=== PATIENT | female | born 1960 | race Caucasian/White ===

== ENCOUNTER 2016-07-02 02:59 | Emergency (ER) | payer MEDICARE ==
[~2016-07-02] VITALS: Ht 167.6 cm; Wt 102.1 kg
[~2016-07-02 02:59] MED LIST: AC325T PO; AC500T; ACET-2422 PO; ACET650T52 PO; ALPR.5T PO; ATOR20TA66 PO; ATOR80TA2 PO; AZIT-21 PO; BSP10T PO; CEPH-507 PO; CEPH500C; CETI10TA17 PO; CITA20TA12 PO; CYCL10TA9 PO; DILT60TA PO; DOCU-165; FAMO20TA13; FAMO20TA5 PO; FERR-57 PO; HYDR-3583 PO; HYDR1TAB; LITH150C PO; LITH300C PO; MAG355OR PO; MELO15TA39 PO; METO-272 PO; METO25TA2; METR500T; Metoprolol Succinate PO; NYST1000 PO; OXYC-188 PO; PANT40TA PO; POTA20TA15 PO; PROP1TAB77; TR025C15 TP; VERA120T6 PO; VERA240C2 PO
--- OUTSIDE RECORDS SUMMARY | 2016-07-02 03:06 | XMS REPORT | Continuity of Care Document ---
Author Author [facility] Organization [facility] Address Unknown Phone Unavailable Care Team Providers Care Station Tender Name Role Phone JOCELYNE MEI DO PCP Insurance Providers Payer Name Policy Number Subscriber Name Relationship Wps Medicare [id number] Caleb Bautista 18 Self / Same As Patient Advance Directives Directive Response Recorded Date/Time Advance Directives No 05/17/16 6:57pm Health Care Power of Shellfish Checker No 05/17/16 6:57pm Organ Donor Yes 05/17/16 6:46am Resuscitation Status Full Code 05/17/16 6:57pm Chief Complaint and Reason for Visit Chief Complaint GENERALIZED WEAKNESS COPD EXACERBATION Reason for Visit Generalized weakness Headache Lesion of skin of face Leukocytosis [place] use Lupus Psoriasis Suspicious nevus Upper respiratory infection Problems Active Problems Medical Problem Onset Date Status COPD exacerbation Unknown Acute Generalized weakness Unknown Acute Headache Unknown Acute Lesion of skin of face Unknown Acute Leukocytosis Unknown Acute [place] use Unknown Acute Lupus Unknown Acute Psoriasis Unknown Acute Suspicious nevus Unknown Acute Upper respiratory infection Unknown Acute Medications Current Home Medications Medication Dose Units Route Directions Days/Qty Instructions Start Date Famotidine (Pepcid) 20 Mg 20 Mg Oral Twice A Day 11/10/09 Buspirone Hcl 10 Mg 15 Mg Oral Three Times A Day TAKES 1 AND 1/2 OF A ( 10 MG) TABLET 07/10/14 Citalopram Hydrobromide 20 Mg 20 Mg Oral Daily 07/10/14 [place] Carbonate 300 Mg 300 Mg Oral Twice A Day 07/10/14 Verapamil Hcl 120 Mg 120 Mg Oral Twice A Day 07/10/14 Cetirizine Hcl 10 Mg 10 Mg Oral Daily 05/17/16 [place] Carbonate 150 Mg 150 Mg Oral Daily 05/17/16 Cyclobenzaprine Hcl 10 Mg 10 Mg Oral Three Times A Day 05/17/16 Metoprolol Succinate 50 Mg 50 Mg Oral Daily 05/17/16 Meloxicam 15 Mg 15 Mg Oral Daily 05/17/16 Cephalexin 500 Mg 500 Mg Oral Three Times A Day 7 Days FILLED 05/11/16 # 21 FOR A 7 DAY THEARPY 05/17/16 Acetaminophen 650 Mg 1,300 Mg Oral Three Times A Day 05/17/16 Triamcinolone Acet 15 Gm Topical Three Times A Day as needed for Rash 0.1% 05/18/16 Past Home Medications Medication Directions Ordered Status Acetaminophen/Hydrocodone Bitart 1 Each Tablet, 01/08/09 Discontinued Metronidazole (Flagyl) 500 Mg Tablet, 08/11/09 Discontinued Cephalexin Monohydrate (Keflex) 500 Mg Capsule, 08/11/09 Discontinued Propoxyphene Hcl/Acetaminophen 1 Tab Tablet, 08/11/09 Discontinued Mag Hydrox/Al Hydrox/Simeth 30 Ml Oral.susp, 30 Ml Oral Before Meals And At Bedtime 11/10/09 Discontinued Ferrous Sulfate 325 Mg Tablet, 325 Mg Oral Three Times A Day 11/10/09 Discontinued Nystatin (Mycostatin Oral Suspension) 60 Ml Btl, 0 Oral Three Times A Day Discontinued Pantoprazole Sodium 40 Mg Tablet.dr, 40 Mg Oral Daily 11/10/09 Discontinued Potassium Chloride 20 Meq Tab.prt.sr, 1 Each Oral Twice A Day 11/10/09 Discontinued Alprazolam 0.5 Mg Tablet, 1 Tab Oral Qid Prn 11/10/09 Discontinued Acetaminophen/Hydrocodone Bitart 1 Tab Tab, 1 Ea Oral Q6hr Prn 11/10/09 Discontinued Oxycodone/Acetaminophen 1 Each Tablet, 1 - 2 Each Oral Q6hr Prn 11/10/09 Discontinued Diltiazem Hcl (Cardizem) 60 Mg Tablet, 1 Tab Oral Daily 11/21/09 Discontinued Alprazolam 0.5 Mg Tablet, 1 Tab Oral Qid Prn 11/21/09 Discontinued Verapamil Hcl (Verelan Sr) 240 Mg Cap24h.pel, 1 Each Oral Twice A Day Discontinued Atorvastatin Calcium 80 Mg Tablet, 80 Mg Oral Daily 07/10/14 Discontinued Atorvastatin Calcium 20 Mg Tablet, 20 Mg Oral Bedtime 07/10/14 Discontinued Acetaminophen 650 Mg Tablet.sa, 1300 Mg Oral Every 8HRS as needed for Pain Discontinued Acetaminophen 325 Mg Tab, 650 Mg Oral Every 8HRS as needed for Pain 07/10/14 Discontinued [Metoprolol Succinate] 25 Mg Tab, 50 Mg Oral Daily 07/15/14 Discontinued Azithromycin (Zpak) 250 Mg Tab, 1 Tab Oral Daily 07/15/14 Discontinued Social History Social History Problem Response Recorded Date/Time Alcohol Use Denies Use 07/10/2014 1:28pm Recreational Drug Use No 07/10/2014 1:28pm Recent Foreign Travel No 05/17/2016 7:10pm Recent Infectious Disease Exposure No 05/17/2016 7:10pm Hospitalization with Isolation Denies 05/23/2016 4:07pm Sexually Transmitted Disease No 05/17/2016 7:00pm HIV/AIDS No 05/17/2016 7:00pm Smoking Status Current Everyday Smoker 05/17/2016 2:31pm Type Used Cigarettes 05/23/2016 4:07pm Recent Hopitalizations No 05/17/2016 7:00pm Sexually Transmitted Disease No 05/17/2016 7:00pm Hospitalization with Isolation Denies 05/23/2016 4:07pm Hx Sexually Transmitted Disorders No 11/22/2009 5:42am Query Response Start Date Stop Date Smoking Status Current Everyday Smoker Hospital Discharge Instructions No hospital discharge instructions. Plan of Care Discharge Date 05/23/16 2:15pm Disposition 01 HOME, SELF-CARE Instructions/Education Provided Altered Mental Status Prescriptions See Medication Section Referrals JOCELYNE MEI DO (Unspecified) - 05/25/16 Address: [address] [place] [phone] Reason(s) for Referral: 11:00 (Unspecified) - 06/01/16 Reason(s) for Referral: FOLLOW UP AT [facility] AT 2:00 ON 06/01/16 Additional Instructions/Education REG DIET ACTIVITY TOLERATES REPORT TO ED FOR MENTAL STATUS CHANGE FOLLOW UP WITH DR MEI Sunday05/25/16 AT 11:00 FOLLOW UP WITH [facility] ON 06/01/16 AT 2:00 Care Plan and Goals Functional Status Query Response Date Recorded Patient Orientation Person Time Situation May 19, 2016 11:10am Patient Orientation Person Confused May 23, 2016 4:07pm Comprehension Ability Understands Concepts May 23, 2016 12:49pm Allergies, Adverse Reactions, Alerts Allergen Type Severity Reaction Status Last Updated Morphine Allergy Mild Active 11/21/09 Codeine Adverse Reaction Unknown NAUSEA Active 11/21/09 Clindamycin Allergy Mild HIVES Active 11/21/09 Meperidine Allergy Mild HAS RECEIVED [place] IN THE PAST Active 08/11/09 Immunizations Name Given Type FLU TRIvalent 5 years - Adult 05/19/16 Administered Vital Signs Acute Vital Signs Vital Response Date/Time Temperature (Fahrenheit) 96.3 degrees F (97.6 - 99.5) 05/23/2016 2:15pm Temperature (Calculated Celsius) 35.63225 degrees C (36.4 - 37.5) 05/23/2016 1:30pm Temperature Source Tympanic 05/23/2016 2:15pm Pulse Rate (adult) 90 bpm (60 - 90) 05/23/2016 2:15pm Respiratory Rate 20 bpm (12 - 24) 05/23/2016 2:15pm O2 Sat by Pulse Oximetry 94 % (88 - 100) 05/23/2016 2:15pm Blood Pressure 130/83 mm Hg 05/23/2016 2:15pm Blood Pressure Mean 99 mm Hg 05/23/2016 1:30pm Pain Numeric Pain Scale 9 05/23/2016 2:15pm Height (Feet) 5 feet 05/17/2016 7:10pm Height (Inches) 6.00 inches 05/17/2016 7:10pm Height (Calculated Centimeters) 167.897114 cm 05/17/2016 7:10pm Weight (Pounds) 240 pounds 05/17/2016 7:10pm Weight (Ounces) 4.0 oz 05/17/2016 7:10pm Weight (Calculated Grams) 506843.57 gm 05/17/2016 7:10pm Weight (Calculated Kilograms) 108.160075 kilograms 05/17/2016 7:10pm Calculated BMI 38.8 05/17/2016 7:10pm Capillary Refill Capillary Refill Less Than 3 Seconds 05/18/2016 9:00am Results Laboratory Results Test Name Result Units Flags Reference Collection Date/Time Result Date/ Time Comments White Blood Count 21.1 10^3/uL H 4.3-11.0 05/23/2016 5:49am 05/23/2016 6: 11am Red Blood Count 4.48 10^6/uL 4.35-5.85 05/23/2016 5:49am 05/23/2016 6: 11am Hemoglobin 13.0 G/DL 11.5-16.0 05/23/2016 5:49am 05/23/2016 6:11am Hematocrit 41 % 35-52 05/23/2016 5:49am 05/23/2016 6:11am Mean Corpuscular Volume 92 FL 80-99 05/23/2016 5:49am 05/23/2016 6: 11am Mean Corpuscular Hemoglobin 29 PG 25-34 05/23/2016 5:49am 05/23/2016 6: 11am Mean Corpuscular Hemoglobin Concent 32 G/DL 32-36 05/23/2016 5:49am 6:11am Red Cell Distribution Width 15.2 % H 10.0-14.5 05/23/2016 5:49am 2015 6:11am Platelet Count 467 10^3/uL H 130-400 05/23/2016 5:49am 05/23/2016 6:11am Mean Platelet Volume 9.9 FL 7.4-10.4 05/23/2016 5:49am 05/23/2016 6: 11am Neutrophils (%) (Auto) 63 % 42-75 05/23/2016 5:4905/23/2016 6:11am Lymphocytes (%) (Auto) 25 % 12-44 05/23/2016 5:49am 05/23/2016 6:11am Monocytes (%) (Auto) 7 % 0-12 05/23/2016 5:49am 05/23/2016 6:11am Eosinophils (%) (Auto) 5 % 0-10 05/23/2016 5:4905/23/2016 6:11am Basophils (%) (Auto) 0 % 0-10 05/23/2016 5:49am 05/23/2016 6:11am Neutrophils # (Auto) 13.3 X 10^3 H 1.8-7.8 05/23/2016 5:49am 05/23/2016 6 :11am Lymphocytes # (Auto) 5.4 X 10^3 H 1.0-4.0 05/23/2016 5:49am 05/23/2016 6: 11am Monocytes # (Auto) 1.4 X 10^3 H 0.0-1.0 05/23/2016 5:49am 05/23/2016 6: 11am Eosinophils # (Auto) 1.0 10^3/uL H 0.0-0.3 05/23/2016 5:49am 05/23/2016 6 :11am Basophils # (Auto) 0.0 10^3/uL 0.0-0.1 05/23/2016 5:49am 05/23/2016 6: 11am Neutrophils % (Manual) 64 % 05/22/2016 5:51am 05/22/2016 6:16am Band Neutrophils 0 % 05/22/2016 5:51am 05/22/2016 6:16am Lymphocytes % (Manual) 18 % 05/22/2016 5:51am 05/22/2016 6:16am Monocytes % (Manual) 2 % 05/22/2016 5:51am 05/22/2016 6:16am Eosinophils % (Manual) 0 % 05/22/2016 5:51am 05/22/2016 6:16am Basophils % (Manual) 0 % 05/22/2016 5:51am 05/22/2016 6:16am Reactive Lymphocytes 16 % 05/22/2016 5:51am 05/22/2016 6:16am Blood Morphology Comment NORMAL 05/19/2016 5:30am 05/19/2016 7: 10am Anisocytosis SLIGHT 05/22/2016 5:51am 05/22/2016 6:16am Erythrocyte Sedimentation Rate 69 MM/HR H 0-30 05/18/2016 5:48am 2015 6:41am Prothrombin Time 12.4 SEC 12.2-14.7 05/17/2016 7:18am 05/17/2016 7: 50am INR Comment 1.0 0.8-1.4 05/17/2016 7:18am 05/17/2016 7:50am INTERPRETIVE DATA SUGGESTED THERAPEUTIC RANGE FOR INR'S: VENOUS THROMBOSIS, PULMONARY EMBOLISM, OR PREVENTION OF SYSTEMIC EMBOLISM (EG. IN ATRIAL FIBRILLATION): 2.0 - 3.0 MECHANICAL PROSTHETIC HEART VALVES: 2.5 - 3.5* *NOTE: INR'S UP TO 4.5 MAY BE NECESSARY IN SELECTED GROUPS OF HIGH RISK PATIENTS. [employer] CONSENSUS CONFERENCE ON ANTITHROMBOTIC THERAPY (2000). Activated Partial Thromboplast Time 30 SEC 24-35 05/17/2016 7:18am 12/2015 7:55am D-Dimer 1.69 UG/ML H 0.00-0.49 05/17/2016 7:18am 05/17/2016 7:55am Urine Color YELLOW 05/17/2016 8:05am 05/17/2016 8:20am Urine Clarity CLEAR 05/17/2016 8:05am 05/17/2016 8:20am Urine pH 7 5-9 05/17/2016 8:05am 05/17/2016 8:20am Urine Specific [place] 1.010 * 1.016-1.022 05/17/2016 8:05am 2015 8:20am Urine Protein 1+ * NEGATIVE 05/17/2016 8:05am 05/17/2016 8:20am Urine Glucose (UA) NEGATIVE NEGATIVE 05/17/2016 8:05am 05/17/2016 8: 20am Urine RBC (Auto) NEGATIVE NEGATIVE 05/17/2016 8:05am 05/17/2016 8: 20am Urine Ketones NEGATIVE NEGATIVE 05/17/2016 8:05am 05/17/2016 8:20am Urine Nitrite NEGATIVE NEGATIVE 05/17/2016 8:05am 05/17/2016 8:20am Urine Bilirubin NEGATIVE NEGATIVE 05/17/2016 8:05am 05/17/2016 8: 20am Urine Urobilinogen NORMAL MG/DL NORMAL 05/17/2016 8:05am 05/17/2016 8: 20am Urine Leukocyte Esterase 1+ * NEGATIVE 05/17/2016 8:05am 05/17/2016 8: 20am Urine RBC RARE /HPF 05/17/2016 8:05am 05/17/2016 8:20am Urine WBC RARE /HPF 05/17/2016 8:05am 05/17/2016 8:20am Urine Bacteria NEGATIVE /HPF 05/17/2016 8:05am 05/17/2016 8:20am Urine Squamous Epithelial Cells 0-2 /HPF 05/17/2016 8:05am 2015 8:20am Urine Crystals NONE /LPF 05/17/2016 8:05am 05/17/2016 8:20am Urine Casts NONE /LPF 05/17/2016 8:05am 05/17/2016 8:20am Urine Mucus NEGATIVE /LPF 05/17/2016 8:05am 05/17/2016 8:20am Urine Culture Indicated NO 05/17/2016 8:05am 05/17/2016 8:20am Sodium Level 139 MMOL/L 135-145 05/23/2016 5:49am 05/23/2016 6:35am Potassium Level 3.3 MMOL/L L 3.6-5.0 05/23/2016 5:49am 05/23/2016 6:35am Chloride Level 102 MMOL/L 98-107 05/23/2016 5:49am 05/23/2016 6:35am Carbon Dioxide Level 26 MMOL/L 21-32 05/23/2016 5:49am 05/23/2016 6: 35am Anion Gap 11 MMOL/L 5-14 05/23/2016 5:49am 05/23/2016 6:35am Blood Urea Nitrogen 37 MG/DL H 7-18 05/23/2016 5:49am 05/23/2016 6:35am Creatinine 1.11 MG/DL 0.60-1.30 05/23/2016 5:49am 05/23/2016 6:35am BUN/Creatinine Ratio 33 05/23/2016 5:49am 05/23/2016 6:35am Estimat Glomerular Filtration Rate 51 05/23/2016 5:49am 05/23/2016 6:35am GFR INTERPRETIVE DATA UNITS FOR ESTIMATED GFR (eGFR): mL/min/1.73 M2 REFERENCE RANGE FOR ESTIMATED GFR (eGFR) eGFR NORMAL eGFR >60 MODERATELY DECREASED eGFR 30-59 SEVERLY DECREASED eGFR 15-29 KIDNEY FAILURE <15 (OR DIALYSIS) Glucose Level 98 MG/DL 70-105 05/23/2016 5:49am 05/23/2016 6:35am Glucometer 193 MG/DL H 70-110 05/18/2016 4:02am 05/18/2016 4:09am Uric Acid 6.6 MG/DL 2.6-7.2 05/17/2016 7:18am 05/17/2016 8:05am Calcium Level 8.7 MG/DL 8.5-10.1 05/23/2016 5:49am 05/23/2016 6:35am Magnesium Level 2.4 MG/DL 1.8-2.4 05/20/2016 5:10am 05/20/2016 7:51am Total Bilirubin 0.6 MG/DL 0.1-1.0 05/23/2016 5:49am 05/23/2016 6:35am Alkaline Phosphatase 52 U/L 40-136 05/23/2016 5:49am 05/23/2016 6:35am Aspartate Amino Transf (AST/SGOT) 17 U/L 5-34 05/23/2016 5:49am 2015 6:35am Alanine Aminotransferase (ALT/SGPT) 17 U/L 0-55 05/23/2016 5:49am 05/23 6:35am Total Creatine Kinase 38 U/L 29-168 05/17/2016 7:18am 05/17/2016 8: 54am Total Protein 5.7 G/DL L 6.4-8.2 05/23/2016 5:49am 05/23/2016 6:35am Albumin 3.5 G/DL 3.2-4.5 05/23/2016 5:49am 05/23/2016 6:35am Lactic Acid Level 0.8 MMOL/L 0.5-2.0 05/17/2016 7:18am 05/17/2016 7: 54am C-Reactive Protein High Sensitivity 14.34 MG/DL H 0.00-0.50 05/18/2016 5: 48am 05/18/2016 6:28am CSF Appearance CLEAR 05/17/2016 12:09pm 05/17/2016 12:43pm CSF Color COLORLESS 05/17/2016 12:09pm 05/17/2016 12:43pm CSF WBC 0 CELLS 0-5 05/17/2016 12:09pm 05/17/2016 12:43pm CSF RBC 2 CELLS H 0-0 05/17/2016 12:09pm 05/17/2016 12:43pm CSF Tube Number 4 05/17/2016 12:09pm 05/17/2016 12:43pm CSF Glucose 56 MG/DL 50-80 05/17/2016 12:09pm 05/17/2016 12:57pm CSF Total Protein 22 MG/DL 15-40 05/17/2016 12:09pm 05/17/2016 12:57pm Anti-Nuclear Antibody Screen <1:80 <1:80 05/18/2016 5:48am 2015 8:07am Normal range for children: Age 0-12 <1:20 Normal range for adults: Age 13-150 <1:80 Test performed at [facility], CLIA# [id number] [address] [facility] [place] [address] [place] Level 0.7 mEq/L 0.5-1.5 05/17/2016 7:18am 05/18/2016 8:00am Test performed at [facility], CLIA# [id number] [address] [place] [address] Microbiology Results Procedure Source Result Collection Date/Time Result Date/Time Blood Culture Peripheral, Lt Ac No growth 05/17/2016 7:18am 05/18/2016 3: 57pm Blood Culture Peripheral, Rt Hand No growth 05/17/2016 8:15am 05/18/2016 3: 57pm Sputum Culture Sputum, Expectorated Usual/normal doretha isolated. 05/17/2016 7:20am 05/18/2016 8:45am CSF Culture Cerebral Spinal Fluid No growth 05/17/2016 12:09pm 05/18/2016 8:42am Procedures No known history of procedures. Encounters Encounter Location Arrival/Admit Date Discharge/Depart Date Attending Provider Discharged Inpatient [facility] 05/20/16 2:01pm 2:15pm JOCELYNE MEI DO Recent Diagnosis Generalized weakness Headache Lesion of skin of face Leukocytosis [place] use Lupus Psoriasis Suspicious nevus Upper respiratory infection
[2016-07-02] MEDS ORDERED: ASPIRIN 81 MG CHEW (CHILDREN'S ASA) PO ONE (03:15)
[2016-07-02 03:27] LABS: BASOPHILS # (AUTO) 0.1 10^3/uL (0.0-0.1); BASOPHILS % (AUTO) 1 % (0-10); EOSINOPHILS # (AUTO) 0.8 10^3/uL (0.0-0.3); EOSINOPHILS % (AUTO) 6 % (0-10); LYMPHOCYTES # (AUTO) 2.8 X 10^3 (1.0-4.0); LYMPHOCYTES % (AUTO) 24 % (12-44); MEAN CORPUSCULAR HEMOGLOBIN 29 PG (25-34); MEAN CORPUSCULAR HGB CONC 30 G/DL (32-36); MEAN CORPUSCULAR VOLUME 94 FL (80-99); MEAN PLATELET VOLUME 10.4 FL (7.4-10.4); MONOCYTES # (AUTO) 0.7 X 10^3 (0.0-1.0); MONOCYTES % (AUTO) 6 % (0-12); NEUTROPHILS # (AUTO) 7.7 X 10^3 (1.8-7.8); NEUTROPHILS % (AUTO) 64 % (42-75); PLATELET COUNT 401 10^3/uL (130-400); RED BLOOD COUNT 4.78 10^6/uL (4.35-5.85); RED CELL DISTRIBUTION WIDTH 15.6 % (10.0-14.5); WHITE BLOOD COUNT 12.1 10^3/uL (4.3-11.0)
--- NOTE | 2016-07-02 03:32 | ED General ---
General Chief Complaint: General Problems/Pain Stated Complaint: CHEST PAIN, HALLUCINATIONS Nursing Triage Note: Pt to ED from home via [facility]. Pt c/o chest pain starting around 1930 last night. EMS also reports PD has been to pt's home 5 times this evening due to pt hallucinating. Pt reports she saw people outside her window and wanted PD to see who was out there. Nursing Sepsis Screen: No Definite Risk Source of Information: Patient (VERY DIFFICULT, SOMEWHAT HOSTILE ), EMS, Old Records History of Present Illness Time Seen by Provider: 02:58 Initial Comments PT ARRIVES VIA EMS FROM HOME PT HAS EXTENSIVE PSYCH ISSUES, AND EMS REPORT THAT [place] [employer]ICE HAVE BEEN TO PT'S RESIDENCE 5 TIMES TONIGHT FOR PT SEEING PEOPLE AND THINGS THAT ARE APPARENTLY NOT THERE. PT WAS JUST ADMITTED TO [facility] AND DISMISSED FROM THERE 06/19 FOR SUICIDAL IDEATION, BIPOLAR, PARANOIA--CHRONIC PROBLEM, HALLUCINATIONS-- CHRONIC PROBLEM. PT STATES THAT HER LITHIUM WAS DISCONTINUED BECAUSE SHE HAD TOXIC LEVELS. PT STATES SHE IS NOT TAKING THE CELEXA THAT WAS PRESCRIBED--STATES SHE HAS NOT TAKEN IT SINCE SHE WAS DISMISSED FROM [facility]. EMS WAS CALLED BECAUSE PT C/O CHEST PAIN TO THE POLICE--STATES THE CHEST PAIN STARTED "WHEN THEY TOLD ME THERE WERE NO TRACKS OR FOOTPRINTS IN MY FRONT YARD" --APPARENTLY PT THOUGHT SHE WAS SEEING PEOPLE IN HER YARD, BUT REPORTEDLY POLICE COULD FIND NO EVIDENCE THAT ANYONE HAD BEEN IN HER YARD EMS REPORTS THAT PT TOLD THEM HER PAIN STARTED AT 1930 PAIN IS DRAMATICALLY REPRODUCIBLE ON PALPATION PER EMS--NO ASPIRIN, EKG OR IV DONE BY EMS PT STATES PAIN IS 7-8/10 AT THIS TIME AND IS SHARP AND CONSTANT C/O FEELING SHORT OF BREATH STATES RIGHT SIDE OF CHEST HURTS TO BREATHE PT LATER C/O ENTIRE RIGHT ARM HURTING--HURTS TO TOUCH OR MOVE. NO PARESTHESIAS OR MOTOR DEFICITS. PT STATES SHE HAS A SINUS INFECTION, AND WAS SEEN BY DR. MEI ON 06/29/16 AND STARTED ON AMOXIL. PT WAS ALSO SEEN BY DAMIEN ALEAJNDRA AT [facility] THAT SAME DAY. PT BRINGS IN LIST OF HER CURRENT MEDICATIONS, WHICH IS REPORTEDLY SIGNIFICANTLY CHANGED FAIRLY RECENTLY, BUT PT CANNOT STATE HOW RECENT. PT DENIES ANY PRIOR HEART PROBLEMS--EXCEPT HTN, HYPERLIPIDEMIA AND POSSIBLE HEART MURMUR ( OLD RECORD STATE HX OF SVT ) PCP: DR. MEI Allergies and Home Medications Allergies Coded Allergies: clindamycin (Unverified Allergy, Mild, HIVES, 11/21/09) meperidine (Unverified Allergy, Mild, HAS RECEIVED FENTANYL IN THE PAST, ) morphine (Unverified Allergy, Mild, 11/21/09) codeine (Verified Adverse Reaction, Unknown, NAUSEA, 11/21/09) Home Medications Acetaminophen 650 Mg Tablet.er 1,300 MG PO TID (Reported) Buspirone Hcl 10 Mg Tablet 15 MG PO TID (Reported) TAKES 1 AND 1/2 OF A (10 MG) TABLET Cephalexin 500 Mg Capsule 7Days 500 MG PO TID (Reported) FILLED 05/11/16 #21 FOR A 7 DAY THEARPY Cetirizine HCl 10 Mg Tablet 10 MG PO DAILY (Reported) Citalopram Hydrobromide 20 Mg Tablet 20 MG PO DAILY (Reported) Cyclobenzaprine HCl 10 Mg Tablet 10 MG PO TID (Reported) Famotidine 20 Mg Tablet 20 MG PO BID (Reported) [place] Carbonate 300 Mg Capsule 300 MG PO BID (Reported) [place] Carbonate 150 Mg Capsule 150 MG PO DAILY (Reported) Meloxicam 15 Mg Tablet 15 MG PO DAILY (Reported) Metoprolol Succinate 50 Mg Tab.er.24h 50 MG PO DAILY (Reported) Triamcinolone Acet 15 Gm Cr TP TID PRN PRN RASH (Reported) 0.1% Verapamil Hcl 120 Mg Tablet 120 MG PO BID (Reported) Constitutional: No fever, other (VERY LIMITED FROM PT) EENTM: nose congestion Respiratory: see HPI cough short of breath Cardiovascular: see HPI chest pain edema (CHRONIC / STABLE) Gastrointestinal: no symptoms reported Musculoskeletal: see HPI Psychiatric/Neurological: See HPI Past Qudeaos-Tsabmg-Tmuehy Hx Patient Social History Alcohol Use: Denies Use Recreational Drug Use: Yes (20 YRS AGO) Smoking Status: Current Everyday Smoker (1 PPD) Type Used: Cigarettes Recent Foreign Travel: No Contact w/Someone Who Travel: No Recent Infectious Disease Expo: No Recent Hopitalizations: No Physical Abuse Screen: No Sexual Abuse: No ( A CHILD) Immunizations Up To Date Tetanus Booster (TDap): Unknown PED Vaccines UTD: No Date of Pneumonia Vaccine: Mar 11, 2011 Seasonal Allergies Seasonal Allergies: No Surgeries HX Surgeries: Yes (PILONIDAL CYST, SIGMOID COLECTOMY FOR PERFORATED DIVERTICULUM COMPLICATED BY PERFORATION /ANASTAMOTIC LEAK 2010; BOWEL RESECTION , TEMP.COLOSTOMY WITH LATER TAKEDOWN;RIGHT BREAST BENIGN BIOPSY/LUMP REMOVAL) Surgeries: Appendectomy, Bowel Surgery, Breast, Hysterectomy, Oophorectomy, Tracheostomy Respiratory Hx Respiratory Disorders: Yes (ARDS--VENTILATOR WITH TRACH PLACEMENT, AND SEPTIC SHOCK DUE TO POST OP COMPLICATIONS FROM COLECTOMY ( DONE FOR PERFORATED DIVERTICULUM) WITH PERFORATION / ANASTOMATIC LEAK) Respiratory Disorders: Chronic Bronchitis, COPD Cardiovascular Hx Cardiac Disorders: Yes (SVT) Cardiac Disorders: Chronic Edema/Swelling, Coronary Artery Disease, High Cholesterol, Hypertension Neurological Hx Neurological Disorders: Yes Neurological Disorders: Headaches /Migraines Reproductive System Hx Reproductive Disorders: Yes (RIGHT BREAST BENING LUMP-REMOVED) Sexually Transmitted Disease: No HIV/AIDS: No Female Reproductive Disorders: Denies Genitourinary Hx Genitourinary Disorders: No Gastrointestinal Hx Gastrointestinal Disorders: Yes Gastrointestinal Disorders: Gastroesophageal Reflux, Hiatal Hernia, Ulcer Musculoskeletal Hx Musculoskeletal Disorders: Yes (CHRONIC GENERALIZED PAIN ) Musculoskeletal Disorders: Arthritis Endocrine Hx Endocrine Disorders: Yes Endocrine Disorders: Hypothyroidsim, Lupus HEENT HX ENT Disorders: No Loss of Vision: Denies Hearing Impairment: Denies Cancer Hx Cancer: No Psychosocial Hx Psychiatric Problems: Yes Behavioral Health Disorders: Anxiety, Bipolar, Personality Disorder, Depression Integumentary HX Skin/Integumentary Disorder: Yes Skin/Integumentary Disorders: Psoriasis Blood Transfusions Hx Blood Disorders: Yes (ANEMIA POST OP) Family Medical History Significant Family History: GI Disease Family Medial History: Arthritis 19 FATHER 19 MOTHER Cardiovascular disease 19 FATHER Cataracts 19 MOTHER Completed stroke 19 MOTHER Dysphasia 19 FATHER FH: cirrhosis 19 MOTHER Glaucoma 19 MOTHER Hypercholesterolemia 19 FATHER Hypertension 19 FATHER 19 MOTHER Myocardial infarction 19 FATHER Osteoporosis 19 MOTHER No Family History of: AIDS Abdominal aortic aneurysm [place]'s disease Alcoholism Alzheimer's disease Aphasia Asthma Cancer of mouth Colon cancer Congenital disease Congenital heart disease Coronary thrombosis Cystic fibrosis Deafness or hearing loss Dementia Diabetes mellitus Drug abuse Fibrocystic disease of breast Gastroenteritis Headache disorder Infertility Kidney disease Neoplasm Not obtainable due to adoption Parkinson's disease Prostate cancer Psychosocial problem Respiratory disorder Seizure disorder Severe allergy Thyroid disease Tuberculosis Visual disorder Physical Exam Vital Signs Vital Sign - Last 12Hours 07/02/16 03:05 Temp 98.0 Pulse 96 Resp 18 B/P 165/98 Pulse Ox 98 O2 Delivery Room Air Capillary Refill : Less Than 3 Seconds General Appearance: No Apparent Distress Obese Other (DOES NOT APPEAR TO BE IN ANY DISCOMFORT. SPEECH SLIGHTLY THICK-TONGUED. ) HEENT: PERRL/EOMI Other (ORAL MUCOSA SLIGHTLY DRY) Neck: Full Range of Motion Normal Inspection Non Tender Supple Respiratory: Normal Breath Sounds No Accessory Muscle Use No Respiratory Distress Other (+ ANTERIOR CHEST WALL TENDERNESS, PALPATION REPRODUCES PAIN) Cardiovascular: Regular Rate, Rhythm No Edema No JVD No Murmur Normal Peripheral Pulses Gastrointestinal: Non Tender Soft Back: No CVA Tenderness Extremity: Normal Capillary Refill Normal Range of Motion No Calf Tenderness No Pedal Edema Other (GENERALIZED TENDERNESS TO RIGHT ARM, C/O PAIN WITH MOVEMENT. NO EXTERNAL EVIDENCE OF TRAUMA. FULL ROM. ) Neurologic/Psychiatric: Alert Oriented x3 No Motor/Sensory Deficits insurance law specialist II- XII Norm as Tested Other (NO APPARENT HALLUCINATIONS OR PSYCH MANIFESTATIONS DURING ER STAY. ) Skin: Normal Color Warm/Dry Rash (EXTENSIVE PSORIATIC PLAQUES OVER ENTIRE BODY. ) Progress/Results/Core Measures Results/Orders Lab Results Laboratory Tests Test 07/02/16 03:15 Range/Units Acetaminophen Level < 10 L 10-30 UG/ML Activated Partial Thromboplast Time 27 24-35 SEC Alanine Aminotransferase (ALT/SGPT) 22 0-55 U/L Albumin 4.1 3.2-4.5 G/DL Alkaline Phosphatase 106 40-136 U/L Amylase Level 53 25-125 U/L Anion Gap 11 5-14 MMOL/L Aspartate Amino Transf (AST/SGOT) 23 5-34 U/L B-Type Natriuretic Peptide 18.4 <100.0 PG/ML BUN/Creatinine Ratio 26 Basophils # (Auto) 0.1 0.0-0.1 10^3/uL Basophils (%) (Auto) 1 0-10 % Blood Urea Nitrogen 24 H 7-18 MG/DL Calcium Level 8.9 8.5-10.1 MG/DL Carbon Dioxide Level 23 21-32 MMOL/L Chloride Level 107 98-107 MMOL/L Creatine Kinase MB 1.4 <6.6 NG/ML Creatinine 0.92 0.60-1.30 MG/DL Eosinophils # (Auto) 0.8 H 0.0-0.3 10^3/uL Eosinophils (%) (Auto) 6 0-10 % Estimat Glomerular Filtration Rate > 60 Glucose Level 107 H 70-105 MG/DL Hematocrit 45 35-52 % Hemoglobin 13.7 11.5-16.0 G/DL INR Comment 0.9 0.8-1.4 Lipase 14 8-78 U/L Lymphocytes # (Auto) 2.8 1.0-4.0 X 10^3 Lymphocytes (%) (Auto) 24 12-44 % Mean Corpuscular Hemoglobin 29 25-34 PG Mean Corpuscular Hemoglobin Concent 30 L 32-36 G/DL Mean Corpuscular Volume 94 80-99 FL Mean Platelet Volume 10.4 7.4-10.4 FL Monocytes # (Auto) 0.7 0.0-1.0 X 10^3 Monocytes (%) (Auto) 6 0-12 % Neutrophils # (Auto) 7.7 1.8-7.8 X 10^3 Neutrophils (%) (Auto) 64 42-75 % Platelet Count 401 H 130-400 10^3/uL Potassium Level 4.3 3.6-5.0 MMOL/L Prothrombin Time 11.3 L 12.2-14.7 SEC Red Blood Count 4.78 4.35-5.85 10^6/uL Red Cell Distribution Width 15.6 H 10.0-14.5 % Salicylates Level < 5.0 L 5.0-20.0 MG/DL Serum Alcohol < 10 <10 MG/DL Sodium Level 141 135-145 MMOL/L TSH [place] Testing 1.57 0.35-4.94 UIU/ML Total Bilirubin 0.2 0.1-1.0 MG/DL Total Creatine Kinase 51 29-168 U/L Total Protein 6.8 6.4-8.2 G/DL Troponin I < 0.30 <0.30 NG/ML White Blood Count 12.1 H 4.3-11.0 10^3/uL My Orders Orders-SEKOU MAK DO Thyroid Analyzer (07/02/16 03:12) Cbc With Automated Diff (07/02/16 03:12) Comprehensive Metabolic Panel (07/02/16 03:12) Amylase (07/02/16 03:12) Alcohol (07/02/16 03:12) Acetaminophen (07/02/16 03:12) Salicylate (07/02/16 03:12) Ekg Tracing (07/02/16 03:12) Monitor-Rhythm Ecg Trace Only (07/02/16 03:12) Creatine Kinase (07/02/16 03:12) Creatine Kinase Mb (07/02/16 03:12) Lipase (07/02/16 03:12) Partial Thromboplastin Time (07/02/16 03:12) Protime With Inr (07/02/16 03:12) Troponin I (07/02/16 03:12) Chest 1 View, Ap/Pa Only (07/02/16 03:12) O2 (07/02/16 03:12) Aspirin Chewable Tablet (Baby Aspirin Ch (07/02/16 03:15) BNP (07/02/16 03:12) [place] Level (07/02/16 03:14) Medications Given in ED Current Medications Medications Dose Ordered Sig/Randy Route Start Time Stop Time Status Last Admin Dose Admin Aspirin 324 mg ONCE ONCE PO 07/02/16 03:15 07/02/16 03:16 DC 07/02/16 03:28 324 MG Vital Signs/I&O Vital Sign - Last 12Hours 07/02/16 07/02/16 07/02/16 03:05 03:05 04:58 Temp 98.0 98.0 Pulse 96 75 Resp 18 18 B/P 165/98 Pulse Ox 98 99 99 O2 Delivery Room Air Room Air Room Air Blood Pressure Mean: 120 Progress Note : Progress Note PT SLEPT SOUNDLY FOR REMAINDER OF ER STAY, LAYING ON HER RIGHT ARM ( ARM SHE C/ O HAVING SEVERE PAIN IN--YET DOES NOT APPEAR TO BE IN ANY DISCOMFORT, AND LAID ON RIGHT ARM FOR REMAINDER OF ER STAY) NO CHEST PAIN FOR REMAINDER OF ER STAY, AFTER INITIAL ARRIVAL TO ER --ONLY C/O OF REPRODUCIBLE RIGHT ARM PAIN PT STATES SHE HAS NOT TAKEN ANY OF HER MEDICATIONS TODAY AND HAS NOT TAKEN ANYTHING FOR PAIN-HAS MOBIC AND TAKES ES TYLENOL ECG Initial ECG Impression Time: 03:07 Initial ECG Rate: 96 Initial ECG Rhythm: Normal Sinus Initial ECG Impression: Nonspecific Changes Initial ECG Comparisson: Unchanged Diagnostic Imaging Comments CXR--NO ACUTE PROCESS, PENDING RADIOLOGIST REVIEW Reviewed: Reviewed by Me Departure Impression Impression: Primary Impression: Chest wall pain Additional Impression: Musculoskeletal pain of right upper extremity Disposition: 01 HOME, SELF-CARE Condition: Improved Departure-Patient Inst. Referrals: JOCELYNE MEI DO (PCP/Family) Primary Care Physician Patient Instructions: Chest Pain That Is Not Caused by the Heart (DC), Muscle and Bone Pain (DC) Add. Discharge Instructions: TAKE YOUR MEDICATIONS PRESCRIBED FOLLOW UP WITH DR. MEI TOMORROW IF NO BETTER All discharge instructions reviewed with patient and/or family. Voiced understanding. SEKOU MAK DO Jul 02, 2016 03:31
[2016-07-02 03:52] LABS: INR 0.9 (0.8-1.4)
[2016-07-02 03:54] LABS: PROTHROMBIN TIME PATIENT 11.3 SEC (12.2-14.7)
[2016-07-02 03:57] LABS: ALANINE AMINOTRANSFERASE 22 U/L (0-55); ALBUMIN 4.1 G/DL (3.2-4.5); AMYLASE 53 U/L (25-125); ANION GAP 11 MMOL/L (5-14); ASPARTATE AMINO TRANSFERASE 23 U/L (5-34); BILIRUBIN,TOTAL 0.2 MG/DL (0.1-1.0); BLOOD UREA NITROGEN 24 MG/DL (7-18); BUN/CREATININE RATIO 26; CALCIUM 8.9 MG/DL (8.5-10.1); CARBON DIOXIDE 23 MMOL/L (21-32); CHLORIDE 107 MMOL/L (98-107); CREATINE KINASE 51 U/L (29-168); CREATININE SERUM 0.92 MG/DL (0.60-1.30); GFR ESTIMATED > 60; GLUCOSE 107 MG/DL (70-105); LIPASE 14 U/L (8-78); POTASSIUM 4.3 MMOL/L (3.6-5.0); SALICYLATE < 5.0 MG/DL (5.0-20.0); SODIUM 141 MMOL/L (135-145); TOTAL PROTEIN 6.8 G/DL (6.4-8.2)
[2016-07-02 04:02] LABS: ACETAMINOPHEN < 10 UG/ML (10-30); ALCOHOL < 10 MG/DL (<10)
[2016-07-02 04:17] LABS: TROPONIN I < 0.30 NG/ML (<0.30)
[2016-07-02 04:58] VITALS: BP 156/86
--- NOTE | 2016-07-02 07:54 | Diagnostic Imaging Report ---
Exam: Upright portable view of the chest is obtained. Findings: The heart size is normal. There is no pulmonary vascular congestion. There is no pneumothorax, mediastinal widening or pleural fluid demonstrated. Calcified nodular scarring in the right upper lobe and some increase in interstitial markings in the medial right lung base appears stable. No new pulmonary parenchymal abnormality is seen. Chronic arthropathy changes of the right shoulder are unchanged. Impression: No radiographic evidence of an acute cardiopulmonary process. No significant interval change from the prior study. Dictated by: Dictated on workstation # [id number]
== END 2016-07-02 04:58 | disposition home or self-care (01) ==
LOC: EDUNIT# 02:59 → ER 03:01
DX: R07.89 Other chest pain (principal); M79.601 Pain in right arm; R44.1 Visual hallucinations; F31.9 Bipolar disorder, unspecified; J44.9 Chronic obstructive pulmonary disease, unspecified; I10 Essential (primary) hypertension; E78.5 Hyperlipidemia, unspecified; F17.210 Nicotine dependence, cigarettes, uncomplicated; Z79.899 Other long term (current) drug therapy
CPT/HCPCS: 36415; 71010; 80053; 80178; 80320; 80329; 82150; 82550; 82553; 83690; 83880; 84443; 84484; 85025; 85610; 85730; 93005; 93041

== ENCOUNTER 2016-07-29 23:18 | Emergency (ER) | payer MEDICARE ==
[~2016-07-29] VITALS: Ht 160 cm; Wt 99.8 kg
--- OUTSIDE RECORDS SUMMARY | 2016-07-29 23:24 | XMS REPORT | Continuity of Care Document ---
Author Author [facility] Organization [facility] Address Unknown Phone Unavailable Care Team Providers Care Supervisor Keymodule [employer] Name Role Phone JOCELYNE MEI DO PCP Insurance Providers Payer Name Policy Number Subscriber Name Relationship [employer] [id number] Caleb Bautista 18 Self / Same As Patient Advance Directives Directive Response Recorded Date/Time Advance Directives No 05/17/16 6:57pm Health Care Power of Social Worker Psychiatric No 05/17/16 6:57pm Organ Donor Yes 05/17/16 6:46am Resuscitation Status Full Code 05/17/16 6:57pm Chief Complaint and Reason for Visit Chief Complaint GENERALIZED WEAKNESS COPD EXACERBATION Reason for Visit Generalized weakness Headache Lesion of skin of face Leukocytosis Novi use Lupus Psoriasis Suspicious nevus Upper respiratory infection Problems Active Problems Medical Problem Onset Date Status COPD exacerbation Unknown Acute Generalized weakness Unknown Acute Headache Unknown Acute Lesion of skin of face Unknown Acute Leukocytosis Unknown Acute Novi use Unknown Acute Lupus Unknown Acute Psoriasis [...] 20 Mg 20 Mg Oral Daily 07/10/14 Novi Carbonate 300 Mg 300 Mg Oral Twice A Day 07/10/14 Verapamil Hcl 120 Mg 120 Mg Oral Twice A Day 07/10/14 Cetirizine Hcl 10 Mg 10 Mg Oral Daily 05/17/16 Novi Carbonate 150 Mg 150 Mg Oral Daily [...] MEI DO (Unspecified) - 05/25/16 Address: [address] [place] [phone] Reason(s) for Referral: 11:00 (Unspecified) - 06/01/16 Reason(s) for Referral: FOLLOW UP AT [facility] AT 2:00 ON 06/01/16 Additional Instructions/Education REG DIET ACTIVITY TOLERATES REPORT TO ED FOR MENTAL STATUS CHANGE FOLLOW UP WITH DR MEI Sunday05/25/16 AT 11:00 FOLLOW UP WITH [facility] ON 06/01/16 AT 2:00 Care Plan [...] - 99.5) 05/23/2016 2:15pm Temperature (Calculated Celsius) 35.90129 degrees C (36.4 - 37.5) 05/23/2016 1:30pm [...] 6.00 inches 05/17/2016 7:10pm Height (Calculated Centimeters) 167.936844 cm 05/17/2016 7:10pm Weight (Pounds) 240 pounds 05/17/2016 7:10pm Weight (Ounces) 4.0 oz 05/17/2016 7:10pm Weight (Calculated Grams) 646592.57 gm 05/17/2016 7:10pm Weight (Calculated Kilograms) 108.047777 kilograms 05/17/2016 7:10pm Calculated BMI 38.8 05/17/2016 [...] SELECTED GROUPS OF HIGH RISK PATIENTS. [employer] CONSENSUS CONFERENCE ON ANTITHROMBOTIC THERAPY (2000). Activated Partial Thromboplast Time 30 SEC 24-35 05/17/2016 7:18am 12/2015 7:55am D-Dimer 1.69 UG/ML H 0.00-0.49 05/17/2016 7:18am 05/17/2016 7:55am Urine Color YELLOW 05/17/2016 8:05am 05/17/2016 8:20am Urine Clarity CLEAR 05/17/2016 8:05am 05/17/2016 8:20am Urine pH 7 5-9 05/17/2016 8:05am 05/17/2016 8:20am Urine Specific [place] 1.010 * 1.016-1.022 05/17/2016 8:05am 2015 8:20am [...] adults: Age 13-150 <1:80 Test performed at [facility], CLIA# [id number] [address] [place] [address] Novi Level 0.7 mEq/L 0.5-1.5 05/17/2016 7:18am 05/18/2016 8:00am Test performed at [facility], CLIA# [id number] [address] [place] [address] Microbiology Results Procedure Source Result Collection Date/Time [...] Discharge/Depart Date Attending Provider Discharged Inpatient [facility] 05/20/16 2:01pm 2:15pm JOCELYNE MEI DO Recent Diagnosis Generalized weakness Headache Lesion of skin of face Leukocytosis Novi use Lupus Psoriasis Suspicious nevus Upper respiratory infection
[2016-07-30 00:17] LABS: BILIRUBIN,URINE NEGATIVE (NEGATIVE); KETONES,URINE NEGATIVE (NEGATIVE); LEUKOCYTE ESTERASE ,URINE 1+ (NEGATIVE); NITRITE,URINE NEGATIVE (NEGATIVE); PH,URINE 5 (5-9); PROTEIN,URINE 2+ (NEGATIVE); UROBILINOGEN,URINE NORMAL (NORMAL)
[2016-07-30 00:21] LABS: BASOPHILS # (AUTO) 0.1 10^3/uL (0.0-0.1); BASOPHILS % (AUTO) 1 % (0-10); EOSINOPHILS # (AUTO) 0.9 10^3/uL (0.0-0.3); EOSINOPHILS % (AUTO) 7 % (0-10); LYMPHOCYTES # (AUTO) 4.3 X 10^3 (1.0-4.0); LYMPHOCYTES % (AUTO) 34 % (12-44); MEAN CORPUSCULAR HEMOGLOBIN 28 PG (25-34); MEAN CORPUSCULAR HGB CONC 32 G/DL (32-36); MEAN CORPUSCULAR VOLUME 88 FL (80-99); MEAN PLATELET VOLUME 10.3 FL (7.4-10.4); MONOCYTES % (AUTO) 8 % (0-12); NEUTROPHILS # (AUTO) 6.5 X 10^3 (1.8-7.8); NEUTROPHILS % (AUTO) 51 % (42-75); PLATELET COUNT 376 10^3/uL (130-400); RED BLOOD COUNT 5.01 10^6/uL (4.35-5.85); RED CELL DISTRIBUTION WIDTH 14.6 % (10.0-14.5); WHITE BLOOD COUNT 12.7 10^3/uL (4.3-11.0)
[2016-07-30 00:25] LABS: SQUAMOUS EPITHELIAL CELL,UR 25-50 /HPF; WBC,URINE RARE /HPF
[2016-07-30 00:26] LABS: CALCIUM OXALATE CRYSTALS,UR MODERATE /LPF
[2016-07-30 00:43] LABS: ALANINE AMINOTRANSFERASE 18 U/L (0-55); ALBUMIN 3.8 G/DL (3.2-4.5); ALCOHOL < 10 MG/DL (<10); ANION GAP 12 MMOL/L (5-14); ASPARTATE AMINO TRANSFERASE 16 U/L (5-34); BILIRUBIN,TOTAL 0.2 MG/DL (0.1-1.0); BLOOD UREA NITROGEN 24 MG/DL (7-18); BUN/CREATININE RATIO 25; CALCIUM 9.2 MG/DL (8.5-10.1); CARBON DIOXIDE 24 MMOL/L (21-32); CHLORIDE 106 MMOL/L (98-107); CREATININE SERUM 0.97 MG/DL (0.60-1.30); GFR ESTIMATED 59; GLUCOSE 99 MG/DL (70-105); POTASSIUM 3.8 MMOL/L (3.6-5.0); SODIUM 142 MMOL/L (135-145); TOTAL PROTEIN 6.7 G/DL (6.4-8.2)
--- NOTE | 2016-07-30 02:15 | ED General ---
General Chief Complaint: Psych/Social Disorder Stated Complaint: MENTAL HEALTH Nursing Triage Note: Pt apparently has a psychiatric bed secured at [facility] in [place]. c/o worsening depression, delusions, and hallucination. Claims she is seeing ghosts and people. Also reports seeing her previous dogs and cats which have been . Denies suicidal ideations. Nursing Sepsis Screen: No Definite Risk Source of Information: Patient Exam Limitations: No Limitations History of Present Illness Time Seen by Provider: 23:48 Initial Comments This 56-year-old woman presents to emergency room with psychiatric complaints. She apparently was brought to the emergency room by case packer and sealer for medical clearance. She reports having agitation, hallucinations, delusions, and paranoia. She seems to have fairly good insight into her problems. She states she can no longer tell what is reality and what is hallucination. She is disoriented to place and time. She is oriented to month and person. She believes police were involved tonight when she thought someone was trying to kill her. She reports no suicidal or homicidal ideation at present but states within the past 24 hours she has had thoughts of harming herself with guns, knives, and pills. She reports urinary frequency and some cough. Her urine reportedly was bright yellow and foul smelling. She denies any fever over 100 . She is a patient of [facility]. Tentative arrangements for placement at the [facility] in [place] have already been made. She has a relatively poor historian about her health. She states she has systemic lupus. She has lithium listed on her prior medication list but not on the med list provided by her transport. Allergies and Home Medications Allergies Coded Allergies: clindamycin (Unverified Allergy, Mild, HIVES, 11/21/09) meperidine (Unverified Allergy, Mild, HAS RECEIVED FENTANYL IN THE PAST, ) morphine (Unverified Allergy, Mild, 11/21/09) codeine (Verified Adverse Reaction, Unknown, NAUSEA, 11/21/09) Home Medications Acetaminophen 650 Mg Tablet.er 1,300 MG PO TID (Reported) Buspirone Hcl 10 Mg Tablet 15 MG PO TID (Reported) TAKES 1 AND 1/2 OF A (10 MG) TABLET Cephalexin 500 Mg Capsule 7Days 500 MG PO TID (Reported) FILLED 05/11/16 #21 FOR A 7 DAY THEARPY Cetirizine HCl 10 Mg Tablet 10 MG PO DAILY (Reported) Citalopram Hydrobromide 20 Mg Tablet 20 MG PO DAILY (Reported) Cyclobenzaprine HCl 10 Mg Tablet 10 MG PO TID (Reported) Famotidine 20 Mg Tablet 20 MG PO BID (Reported) Venedocia Carbonate 300 Mg Capsule 300 MG PO BID (Reported) Venedocia Carbonate 150 Mg Capsule 150 MG PO DAILY (Reported) Meloxicam 15 Mg Tablet 15 MG PO DAILY (Reported) Metoprolol Succinate 50 Mg Tab.er.24h 50 MG PO DAILY (Reported) Triamcinolone Acet 15 Gm Cr TP TID PRN PRN RASH (Reported) 0.1% Verapamil Hcl 120 Mg Tablet 120 MG PO BID (Reported) Constitutional: no symptoms reportedNo fever EENTM: no symptoms reported Respiratory: see HPI cough Cardiovascular: no symptoms reported Gastrointestinal: no symptoms reported Genitourinary: see HPI : No Musculoskeletal: no symptoms reported Skin: no symptoms reported Psychiatric/Neurological: See HPI Hematologic/Lymphatic: No Symptoms Reported Immunological/Allergic: see HPI Past Rwhvorv-Nhgzjw-Szdfzh Hx Patient Social History Alcohol Use: Denies Use Recreational Drug Use: No (20 YRS AGO) Smoking Status: Unknown if Ever Smoked Type Used: Cigarettes Recent Foreign Travel: No Contact w/Someone Who Travel: No Recent Infectious Disease Expo: No Recent Hopitalizations: No Immunizations Up To Date Tetanus Booster (TDap): Unknown PED Vaccines UTD: No Date of Pneumonia Vaccine: Mar 11, 2011 Seasonal Allergies Seasonal Allergies: No Surgeries HX Surgeries: Yes Surgeries: Appendectomy, Bowel Surgery, Breast, Hysterectomy, Oophorectomy, Tracheostomy Respiratory Hx Respiratory Disorders: Yes Respiratory Disorders: Chronic Bronchitis, COPD Cardiovascular Hx Cardiac Disorders: Yes (SVT) Cardiac Disorders: Chronic Edema/Swelling, Coronary Artery Disease, High Cholesterol, Hypertension Neurological Hx Neurological Disorders: Yes Neurological Disorders: Headaches /Migraines Reproductive System Hx Reproductive Disorders: Yes (RIGHT BREAST BENING LUMP-REMOVED) Sexually Transmitted Disease: No HIV/AIDS: No Female Reproductive Disorders: Denies Genitourinary Hx Genitourinary Disorders: No Gastrointestinal Hx Gastrointestinal Disorders: Yes Gastrointestinal Disorders: Gastroesophageal Reflux, Hiatal Hernia, Ulcer Musculoskeletal Hx Musculoskeletal Disorders: Yes (CHRONIC GENERALIZED PAIN ) Musculoskeletal Disorders: Arthritis Endocrine Hx Endocrine Disorders: Yes Endocrine Disorders: Hypothyroidsim, Lupus HEENT HX ENT Disorders: No Loss of Vision: Denies Hearing Impairment: Denies Cancer Hx Cancer: No Psychosocial Hx Psychiatric Problems: Yes Behavioral Health Disorders: Anxiety, Bipolar, Personality Disorder, Depression Integumentary HX Skin/Integumentary Disorder: Yes Skin/Integumentary Disorders: Psoriasis Blood Transfusions Hx Blood Disorders: Yes (ANEMIA POST OP) Family Medical History Significant Family History: GI Disease Family Medial History: Arthritis 19 FATHER 19 MOTHER Cardiovascular disease 19 FATHER Cataracts 19 MOTHER Completed stroke 19 MOTHER Dysphasia 19 FATHER FH: cirrhosis 19 MOTHER Glaucoma 19 MOTHER Hypercholesterolemia 19 FATHER Hypertension 19 FATHER 19 MOTHER Myocardial infarction 19 FATHER Osteoporosis 19 MOTHER No Family History of: AIDS Abdominal aortic aneurysm Kaiden's disease Alcoholism Alzheimer's disease Aphasia Asthma Cancer of mouth Colon cancer Congenital disease Congenital heart disease Coronary thrombosis Cystic fibrosis Deafness or hearing loss Dementia Diabetes mellitus Drug abuse Fibrocystic disease of breast Gastroenteritis Headache disorder Infertility Kidney disease Neoplasm Not obtainable due to adoption Parkinson's disease Prostate cancer Psychosocial problem Respiratory disorder Seizure disorder Severe allergy Thyroid disease Tuberculosis Visual disorder Physical Exam Vital Signs Vital Sign - Last 12Hours 07/29/16 07/30/16 23:45 04:35 Temp 97.2 Pulse 70 Resp 18 B/P 132/70 Pulse Ox 98 O2 Delivery Room Air Capillary Refill : Less Than 3 Seconds General Appearance: No Apparent Distress WD/WN Obese HEENT: Normal ENT Inspection Other (oropharynx somewhat pasty. Cratered lesion beneath the right eye suspicious for basal cell carcinoma.) Neck: Normal Inspection Respiratory: Lungs Clear Normal Breath Sounds No Accessory Muscle Use No Respiratory Distress Cardiovascular: Regular Rate, Rhythm No Edema No Murmur Gastrointestinal: Normal Bowel Sounds Non Tender Soft Extremity: Normal Inspection No Pedal Edema Neurologic/Psychiatric: Alert No Motor/Sensory Deficits Normal Mood/Affect director prospect II-XII Norm as Tested Other (patient reports delusions, hallucinations, and paranoia. She has had thoughts of self-harm in the last 24 hours but denies suicidal ideation or homicidal ideation at present. She appears to have reasonable insight into her condition. She is disoriented to place and time.) Skin: Normal Color Warm/Dry Progress/Results/Core Measures Results/Orders Lab Results Micro Results My Orders Medications Given in ED Vital Signs/I&O Blood Pressure Mean: 90 Progress Note #1: Time: 02:19 Progress Note Patient was noted to have a mild leukocytosis. UA had bacteria which is likely contaminant. Chest x-ray showed slight increase in prominence of prior existing markings in the right lung. This is likely stable. CRP was performed as a follow-up to help determine presence of infection. CRP was unremarkable. WBC differential shows a lymphocytic predominance suggesting viral illness. Patient will be prescribed antibiotics as a precaution. A lithium level is still pending but is a send out lab. Chart review is pending by the receiving facility. No medical problems have been found that would prevent transfer to a psychiatric facility. Progress Note #2: Time: 06:10 Progress Note Case was eventually reviewed by Dr. Ozuna at [place]. Patient will be transported by a refrigeration mechanic. Dr. Sinha is agreeable to this form of transportation. A dose of Omnicef was given as a precaution due to the leukocytosis and questionable right lung markings and questionable UA. Omnicef can be continued at [place] per their discretion. This was communicated in checkout. ECG Initial ECG Impression Date: Jul 30, 2016 Initial ECG Impression Time: 00:24 Initial ECG Rate: 74 Initial ECG Rhythm: Normal Sinus Initial ECG Intervals: Normal Initial ECG Impression: Normal Comment Normal sinus rhythm with no ST elevation or depression. No abnormal intervals or axis deviation. Diagnostic Imaging Diagonstic Imaging: Xray Plain Films/CT/US/NM/MRI: chest Comments Chest x-ray viewed by me. Report not yet available. There appears to be slight increase in prominence of right lung markings when compared with prior. Departure Impression Impression: Primary Impression: Psychosis Qualified Code: F29 - Unspecified psychosis not due to a substance or known physiological condition Additional Impressions: Suicidal ideation Leukocytosis Qualified Code: D72.829 - Elevated white blood cell count, unspecified facial lesion suspicious for basal cell carcinoma Disposition: XF [facility]-TRM HOSP Condition: Stable Transfer Transfer Time: 06:15 Transfer Facility: [facility] [place] To Dr. Ozuna Method of Transfer: Departure-Patient Inst. Referrals: JOCELYNE MEI DO (PCP/Family) Primary Care Physician Add. Discharge Instructions: All discharge instructions reviewed with patient and/or family. Voiced understanding. Copy Copies To 1: JOCELYNE MEI JOSHUA T MD Jul 30, 2016 02:15 Alanine Aminotransferase (ALT/SGPT) 18 0-55 U/L Albumin 3.8 3.2-4.5 G/DL Alkaline Phosphatase 103 40-136 U/L Anion Gap 12 5-14 MMOL/L Aspartate Amino Transf (AST/SGOT) 16 5-34 U/L BUN/Creatinine Ratio 25 Basophils # (Auto) 0.1 0.0-0.1 10^3/uL Basophils (%) (Auto) 1 0-10 % Blood Urea Nitrogen 24 H 7-18 MG/DL C-Reactive Protein High Sensitivity 1.08 H 0.00-0.50 MG/DL Calcium Level 9.2 8.5-10.1 MG/DL Carbon Dioxide Level 24 21-32 MMOL/L Chloride Level 106 98-107 MMOL/L Creatinine 0.97 0.60-1.30 MG/DL Eosinophils # (Auto) 0.9 H 0.0-0.3 10^3/uL Eosinophils (%) (Auto) 7 0-10 % Estimat Glomerular Filtration Rate 59 Glucose Level 99 70-105 MG/DL Hematocrit 44 35-52 % Hemoglobin 13.9 11.5-16.0 G/DL Lymphocytes # (Auto) 4.3 H 1.0-4.0 X 10^3 Lymphocytes (%) (Auto) 34 12-44 % Mean Corpuscular Hemoglobin 28 25-34 PG Mean Corpuscular Hemoglobin Concent 32 32-36 G/DL Mean Corpuscular Volume 88 80-99 FL Mean Platelet Volume 10.3 7.4-10.4 FL Monocytes # (Auto) 1.0 0.0-1.0 X 10^3 Monocytes (%) (Auto) 8 0-12 % Neutrophils # (Auto) 6.5 1.8-7.8 X 10^3 Neutrophils (%) (Auto) 51 42-75 % Platelet Count 376 130-400 10^3/uL Potassium Level 3.8 3.6-5.0 MMOL/L Red Blood Count 5.01 4.35-5.85 10^6/uL Red Cell Distribution Width 14.6 H 10.0-14.5 % Serum Alcohol < 10 <10 MG/DL Sodium Level 142 135-145 MMOL/L TSH [place] Testing 1.11 0.35-4.94 UIU/ML Total Bilirubin 0.2 0.1-1.0 MG/DL Total Protein 6.7 6.4-8.2 G/DL White Blood Count 12.7 H 4.3-11.0 10^3/uL Micro Results Microbiology 07/30/16 Influenza Types A,B Antigen (TRAY) - Final, Complete 07/29/16 Urine Culture - Preliminary, Resulted My Orders Orders-SAEED WHEELER MD Alcohol (07/29/16 23:48) Cbc With Automated Diff (07/29/16 23:48) Comprehensive Metabolic Panel (07/29/16 23:48) Drug Screen Stat (Urine) (07/29/16 23:48) Thyroid Analyzer (07/29/16 23:48) Ua Culture If Indicated (07/29/16 23:48) Ekg Tracing (07/29/16 23:48) Urine Culture (07/29/16 23:40) Chest Pa/Lat (2 View) (07/30/16 01:26) Influenza A And B Antigens (07/30/16 01:26) Hs C Reactive Protein (07/30/16 01:56) Venedocia Level (07/30/16 02:15) Cefdinir Capsule (Omnicef Capsule) (07/30/16 04:30) Ibuprofen Tablet (Motrin Tablet) (07/30/16 05:45) Medications Given in ED Vital Signs/I&O Blood Pressure Mean: 90 Progress Note #1: Time: 02:19 Progress Note Patient was noted to have a mild leukocytosis. UA had bacteria which is likely contaminant. Chest x-ray showed slight increase in prominence of prior existing markings in the right lung. This is likely stable. CRP was performed as a follow-up to help determine presence of infection. CRP was unremarkable. WBC differential shows a lymphocytic predominance suggesting viral illness. Patient will be prescribed antibiotics as a precaution. A lithium level is still pending but is a send out lab. Chart review is pending by the receiving facility. No medical problems have been found that would prevent transfer to a psychiatric facility. Progress Note #2: Time: 06:10 Progress Note Case was eventually reviewed by Dr. Ozuna at [place]. Patient will be transported by a refrigeration mechanic. Dr. Sinha is agreeable to this form of transportation. A dose of Omnicef was given as a precaution due to the leukocytosis and questionable right lung markings and questionable UA. Omnicef can be continued at [place] per their discretion. This was communicated in checkout. ECG Initial ECG Impression Date: Jul 30, 2016 Initial ECG Impression Time: 00:24 Initial ECG Rate: 74 Initial ECG Rhythm: Normal Sinus Initial ECG Intervals: Normal Initial ECG Impression: Normal Comment Normal sinus rhythm with no ST elevation or depression. No abnormal intervals or axis deviation. Diagnostic Imaging Diagonstic Imaging: Xray Plain Films/CT/US/NM/MRI: chest Comments Chest x-ray viewed by me. Report not yet available. There appears to be slight increase in prominence of right lung markings when compared with prior. Departure Impression Impression: Primary Impression: Psychosis Qualified Code: F29 - Unspecified psychosis not due to a substance or known physiological condition Additional Impressions: Suicidal ideation Leukocytosis Qualified Code: D72.829 - Elevated white blood cell count, unspecified facial lesion suspicious for basal cell carcinoma Disposition: 02 [facility] HOSP Condition: Stable Transfer Transfer Time: 06:15 [facility] Oz[facility] Method of Transfer: Departure-Patient Inst. Referrals: JOCELYNE MEI DO (PCP/Family) Primary Care Physician Add. Discharge Instructions: All discharge instructions reviewed with patient and/or family. Voiced understanding. Copy Copies To 1: JOCELYNE MEI JOSHUA T MD Jul 30, 2016 02:15 Departure Impression Impression: Primary Impression: Psychosis Qualified Code: F29 - Unspecified psychosis not due to a substance or known physiological condition Additional Impressions: Suicidal ideation Leukocytosis Qualified Code: D72.829 - Elevated white blood cell count, unspecified Disposition: 02 [facility] HOS[facility] Condition: Stable Transfer Transfer Time: 06:15 Transfer Facility: [facility] [place] To Dr. Ozuna Method of Transfer: Departure-Patient Inst. Referrals: JOCELYNE MEI DO (PCP/Family) Primary Care Physician Add. Discharge Instructions: All discharge instructions reviewed with patient and/or family. Voiced understanding. SAEED WHEELER MD Jul 30, 2016 02:15 SAEED WHEELER MD Jul 30, 2016 02:15
[2016-07-30] MEDS ORDERED: CEFDINIR 300 MG (OMNICEF) CAP PO ONE (04:30)
[2016-07-30 04:35] VITALS: BP 126/65
[2016-07-30] MEDS ORDERED: IBUPROFEN TABLET 200 MG TAB PO ONE (05:45)
[2016-07-30 06:22] VITALS: BP 131/65
--- NOTE | 2016-07-30 07:36 | Diagnostic Imaging Report ---
INDICATION: Cough COMPARISON: 07/02/2016. FINDINGS: Ill-defined nodular linear opacities in the right mid and lower lung zone have mildly increased since prior examination. Biapical subpleural scarring remains greater on the right. No pleural effusion or pneumothorax. Stable mixed radiolucent and radiodense lesions in the proximal right humerus, suggestive of osteonecrosis. IMPRESSION: 1. Right mid and lower lung zone ill-defined linear and nodular opacities have progressed since prior examination. This is nonspecific and could relate to infectious process or foci of atelectasis. Consider followup PA and lateral chest radiographs in 4 weeks after appropriate medical management to ensure resolution. 2. Suggestion of osteonecrosis of the right humeral head. Consider right shoulder radiographs for further evaluation, if not previously performed. Dictated by: Dictated on workstation # [id number]
== END 2016-07-30 06:22 ==
LOC: EDUNIT# 23:18 → ER 23:20
DX: F29 Unspecified psychosis not due to a substance or known physiological condition (principal); R45.851 Suicidal ideations; D72.829 Elevated white blood cell count, unspecified; L98.9 Disorder of the skin and subcutaneous tissue, unspecified; I10 Essential (primary) hypertension; J44.9 Chronic obstructive pulmonary disease, unspecified; Z79.899 Other long term (current) drug therapy
CPT/HCPCS: 36415; 71020; 80053; 80178; 80306; 80320; 81000; 84443; 85025; 86141; 87088; 87804; 93005

== ENCOUNTER → 2017-07-04 | Outpatient (CLI) | payer MEDICARE ==
[~2017-07-04] MED LIST changes: -METO-272 PO; +METO-370 PO
--- NOTE | 2017-07-04 16:40 | Diagnostic Imaging Report ---
PROCEDURE: US carotid duplex, bilateral. TECHNIQUE: Multiple real-time grayscale images were obtained over the carotid arteries in various projections, bilaterally. Additional duplex Doppler and color Doppler images were also obtained. DATE: July 04, 2017. INDICATION: 57-year-old female, transient ischemic attack. COMPARISON: May 18, 2016. FINDINGS: Peak systolic velocity in the left common carotid artery measures 127 cm/s. Peak systolic velocity in the left proximal internal carotid artery measures 87 cm/s, 73 cm/s in the mid left internal carotid artery, and 90 cm/s distally. Peak systolic velocity in the left external carotid artery measures 133 cm/s. There is patent antegrade flow in the left vertebral artery. Peak systolic velocity in the right common carotid artery measures 87 cm/s. Peak systolic velocity in the right proximal internal carotid artery measures 57 cm/s, 86 cm/s in the mid right internal carotid artery, and 92 cm/s distally. Peak systolic velocity in the right external carotid artery measures 104 cm/s. There is patent antegrade flow in the right vertebral artery. IMPRESSION: 1. Negative for hemodynamically significant right or left internal carotid artery stenosis. 2. Patent antegrade flow in the bilateral vertebral arteries. Dictated by: Dictated on workstation # [id number]
== END ==
LOC: RAD 16:05
PROVIDERS: ATTEND Family Medicine
DX: G45.9 Transient cerebral ischemic attack, unspecified (principal); E78.5 Hyperlipidemia, unspecified
CPT/HCPCS: 93880

== ENCOUNTER → 2017-12-26 | Outpatient (CLI) | payer MEDICAID, MEDICARE ==
--- NOTE | 2017-12-26 14:33 | Diagnostic Imaging Report ---
INDICATION: Routine screening. COMPARISON: 03/15/2007. TECHNIQUE: 2D and 3D bilateral screening mammography was performed with CAD. FINDINGS: Scattered fibroglandular densities are identified bilaterally. The patient has a history of prior lumpectomy in 2000 in the right breast. The prior mammogram did demonstrate some irregular density with a probable oil cyst in the upper and slightly inner right breast. On today's study, that area does appear to be spiculated. The oil cyst is no longer visualized but there has been development of multiple microcalcifications at this location, suspicious. The left breast is unremarkable. The axillae are unremarkable. IMPRESSION: Post therapeutic changes in the upper and slightly inner right breast with spiculation and a new cluster of microcalcifications. While it is conceivable this is post-therapeutic in nature, additional views and ultrasound of this area are recommended for further evaluation. ACR BI-RADS Category 0: Incomplete. (Needs additional imaging evaluation). Result letter will be mailed to the patient. Note: At least 10% of breast cancer is not imaged by mammography. Dictated by: Dictated on workstation # [id number]
== END ==
LOC: RAD 08:07
PROVIDERS: ATTEND Family Medicine
DX: Z12.31 Encounter for screening mammogram for malignant neoplasm of breast (principal); R92.0 Mammographic microcalcification found on diagnostic imaging of breast
CPT/HCPCS: 77067

== ENCOUNTER → 2018-01-03 | Outpatient (CLI) | payer MEDICARE ==
--- NOTE | 2018-01-03 13:23 | Diagnostic Imaging Report ---
EXAMINATION: Right shoulder. INDICATION: Shoulder pain. Three views were obtained. FINDINGS: There is no fracture, dislocation, or acute bony abnormality evident. 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 There is near-complete obliteration of the joint space, and there is sclerosis of the humeral head and the glenoid. These finding seem similar to the prior chest exam of 07/20/2016. There is only mild degenerative disease of the acromioclavicular joint. The soft tissues are unremarkable. Incidental note is made of pleural calcifications involving the right apex. Those findings were also evident on the prior study. 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 Dictated by: Dictated on workstation # [id number]
--- NOTE | 2018-01-03 19:20 | Diagnostic Imaging Report ---
EXAMINATION: Unilateral diagnostic right mammogram. INDICATION: Abnormal screening mammogram. The current study was also evaluated with a Computer Aided Detection (CAD) system. FINDINGS: The recent screening mammogram of 12/26/2017 noted post-therapeutic changes in the upper slightly inner right breast. However, this area appeared to have changed in the interval since the prior exam of 04/04/2007 as there is now a spiculated mass in this region as well as indeterminate microcalcifications. Compression views of this area show that there is considerable architectural distortion. This finding may merely be secondary to scar formation. The possibility that there is an underlying neoplastic process present, however, cannot be entirely excluded. Ultrasound would be recommended for further evaluation of this finding. IMPRESSION: Ultrasound would be recommended for further evaluation of the spiculated mass in the upper-inner aspect of the right breast. ACR BI-RADS Category 0: Incomplete. (Needs additional imaging evaluation). Result letter will be mailed to the patient. Note: At least 10% of breast cancer is not imaged by mammography. Dictated by: Dictated on workstation # [id number]
--- NOTE | 2018-01-03 19:23 | Diagnostic Imaging Report ---
EXAMINATION: Ultrasound of the right breast, limited. INDICATION: Abnormal mammogram. FINDINGS: The screening mammogram performed on 12/26/2017 noted a spiculated mass and a new cluster of microcalcifications in the upper-outer quadrant of the right breast in the region of the patient's prior biopsy. The diagnostic mammogram performed earlier today also revealed that there was a poorly defined mass in this area as well as a few indeterminate microcalcifications. On this study, there is a corresponding 1.3 x 1.2 x 1.2 cm area of shadowing in the 1 o'clock position of the right breast, roughly 15 cm from the nipple. This finding may merely be secondary to scar formation alone. However, the possibility that there is an underlying malignant lesion present cannot be entirely excluded. I would recommend that an ultrasound-guided biopsy be performed for further evaluation. IMPRESSION: 1. There is a spiculated mass in the 1 o'clock position of the right breast. While this finding could be secondary to scar formation alone, the possibility that there is an underlying malignant process cannot be entirely excluded. An ultrasound-guided biopsy would be recommended. 2. These results were discussed with Dr. Ward. ACR BI-RADS Category 4: Suspicious abnormality. Dictated by: Dictated on workstation # [id number]
== END ==
LOC: RAD 11:47
PROVIDERS: ATTEND Family Medicine
DX: M19.011 Primary osteoarthritis, right shoulder (principal); N63.12 Unspecified lump in the right breast, upper inner quadrant
CPT/HCPCS: 73030

== ENCOUNTER → 2018-01-08 | Outpatient (CLI) | payer MEDICARE ==
[~2018-01-08] VITALS: Ht 160 cm; Wt 99.8 kg
[~2018-01-08] MED LIST changes: +LIDOCAINE 1% INJ 20 ML 20 ML VIAL INJ ONE; +LIDOCAINE 1% INJ 20 ML 20 ML VIAL ONE
[2018-01-08 14:00] VITALS: BP 130/81
[2018-01-08 15:00] VITALS: BP 124/60
--- NOTE | 2018-01-08 18:50 | Diagnostic Imaging Report ---
INDICATION: Right breast architectural distortion. EXAMINATION: Patient presents for ultrasound-guided biopsy. PROCEDURE: Patient was brought to the procedure room and placed on the bed in the supine position. Ultrasound imaging over the right breast was performed to evaluate appropriate entry site. The skin of the right breast was then prepped and draped in the usual sterile fashion. A 14-gauge Achieve needle was advanced and placed with its tip adjacent to the area of hypoechogenicity and shadowing at the 12 o'clock location of the right breast, 15 cm from the nipple. A total of five core biopsies were obtained. Localizing clip was then deployed. Hemostasis was obtained using manual compression. Patient tolerated the procedure well. IMPRESSION: Successful ultrasound guided core biopsy of the area of hypoechogenicity and shadowing at the 1 o'clock location of the right breast, 15 cm from the nipple. Pathology results are currently pending. Dictated by: Dictated on workstation # [id number]
--- NOTE | 2018-01-08 18:53 | Diagnostic Imaging Report ---
INDICATION: Right breast biopsy. Study was performed post clip placement. EXAMINATION: 2D right CC and mediolateral mammography was performed. FINDINGS: Images demonstrate a spiculated density in the upper slightly inner aspect of the right breast at posterior depth with some associated calcifications There is a small amount of gas within the tract from recent biopsy. There is a marker clip adjacent to the spiculated density. IMPRESSION: Right breast biopsy. The marker clip is located adjacent to and slightly anterior to the spiculated density in the upper inner right breast. Dictated by: Dictated on workstation # [id number]
== END ==
LOC: RAD 13:34
PROVIDERS: ATTEND Family Medicine
DX: N60.31 Fibrosclerosis of right breast (principal)
CPT/HCPCS: 19083

== ENCOUNTER 2018-03-05 14:18 | Inpatient (IN) | payer MEDICARE ==
[~2018-03-05] VITALS: Ht 165.1 cm; Wt 110.9 kg
[~2018-03-05 14:18] MED LIST changes: -LIDOCAINE 1% INJ 20 ML 20 ML VIAL INJ ONE; -LIDOCAINE 1% INJ 20 ML 20 ML VIAL ONE
[2018-03-05] MEDS ORDERED: RT-ALBUTEROL/IPRATROPIUM 3 ML (DUONEB) VIAL INH ONE (14:30)
--- NOTE | 2018-03-05 14:31 | ED Respiratory ---
General Stated Complaint: RT KNEE PAIN Source: patient, EMS Exam Limitations: no limitations History of Present Illness Date Seen by Provider: Mar 05, 2018 Time Seen by Provider: 14:19 Initial Comments Patient presents to the ER by EMS with chief complaint that she was at home having some shortness of breath and wheezing and took a breathing treatment about half an hour prior to arrival which helped. She does not use oxygen or BiPAP at home. She does have a history of COPD and does not use her albuterol inhaler but does use her nebulizer. She had an appointment to go see Dr. MEI this afternoon but she have to get a cab to go and she felt like it might be better to just go to the ER to be evaluated. Yesterday her knee started hurting on her right side when she stood up on it. She says she did not do anything to injure to just hurt when she stood on it. She does have a history of osteoarthritis and being worked up by stemmer machine Dr. Bardales. He has done x-rays and taken labs but she has not heard back what that is. She does have a history of psoriasis. She's having no redness swelling in her right knee. She also thought she might have a urinary tract infection because she's been having urinary incontinence and dysuria for the past couple days and she was having Dr. Mei check her urine. She denies any fevers chills nausea or vomiting. Allergies and Home Medications Allergies Coded Allergies: clindamycin (Unverified Allergy, Mild, HIVES, 11/21/09) meperidine (Unverified Allergy, Mild, HAS RECEIVED FENTANYL IN THE PAST, ) morphine (Unverified Allergy, Mild, 11/21/09) codeine (Verified Adverse Reaction, Unknown, NAUSEA, 11/21/09) Home Medications Acetaminophen 650 Mg Tablet.er, 1,300 MG PO TID, (Reported) Buspirone Hcl 10 Mg Tablet, 15 MG PO TID, (Reported) TAKES 1 AND 1/2 OF A (10 MG) TABLET Cephalexin 500 Mg Capsule, 500 MG PO TID, (Reported) FILLED 05/11/16 #21 FOR A 7 DAY THEARPY Cetirizine HCl 10 Mg Tablet, 10 MG PO DAILY, (Reported) Citalopram Hydrobromide 20 Mg Tablet, 20 MG PO DAILY, (Reported) Cyclobenzaprine HCl 10 Mg Tablet, 10 MG PO TID, (Reported) Famotidine 20 Mg Tablet, 20 MG PO BID, (Reported) Mchenry Carbonate 300 Mg Capsule, 300 MG PO BID, (Reported) Mchenry Carbonate 150 Mg Capsule, 150 MG PO DAILY, (Reported) Meloxicam 15 Mg Tablet, 15 MG PO DAILY, (Reported) Metoprolol Succinate 50 Mg Tab.er.24h, 50 MG PO DAILY, (Reported) Triamcinolone Acet 15 Gm Cr, TP TID PRN for RASH, (Reported) 0.1% Verapamil Hcl 120 Mg Tablet, 120 MG PO BID, (Reported) Patient Home Medication List Home Medication List Reviewed: Yes Review of Systems Review of Systems Constitutional: No chills, No diaphoresis, No fever, No malaise EENTM: No ear discharge, No hearing loss, No ear pain, No hoarseness Respiratory: No cough; orthopnea; No phlegm; short of breath, wheezing Cardiovascular: No chest pain, No edema Gastrointestinal: No abdominal pain, No constipation, No diarrhea Genitourinary: No discharge, No dysuria Musculoskeletal: No back pain, No joint pain Skin: No pruritus, No rash Psychiatric/Neurological: Denies Headache, Denies Numbness, Denies Paresthesia Past Iijrumx-[id number]-[id number] Hx Patient Social History Alcohol Use: Denies Use Recreational Drug Use: No Smoking Status: Current Everyday Smoker Type Used: Cigarettes Recent Hopitalizations: No Immunizations Up To Date Tetanus Booster (TDap): Unknown PED Vaccines UTD: No Date of Pneumonia Vaccine: Mar 11, 2011 Seasonal Allergies Seasonal Allergies: No Past Medical History Appendectomy, Bowel Surgery, Breast, Hysterectomy, Oophorectomy, Tracheostomy Chronic Bronchitis, COPD Chronic Edema/Swelling, Coronary Artery Disease, High Cholesterol, Hypertension Headaches /Migraines Reproductive Disorders: Yes (RIGHT BREAST BENING LUMP-REMOVED) Female Reproductive Disorders: Denies Sexually Transmitted Disease: No HIV/AIDS: No Gastroesophageal Reflux, Hiatal Hernia, Ulcer Arthritis Hypothyroidsim, Lupus Loss of Vision: Denies Hearing Impairment: Denies Anxiety, Bipolar, Personality Disorder, Depression Psoriasis Family Medical History Arthritis 19 FATHER 19 MOTHER Cardiovascular disease 19 FATHER Cataracts 19 MOTHER Completed stroke 19 MOTHER Dysphasia 19 FATHER FH: cirrhosis 19 MOTHER Glaucoma 19 MOTHER Hypercholesterolemia 19 FATHER Hypertension 19 FATHER 19 MOTHER Myocardial infarction 19 FATHER Osteoporosis 19 MOTHER No Family History of: AIDS Abdominal aortic aneurysm [place]'s disease Alcoholism Alzheimer's disease Aphasia Asthma Cancer of mouth Colon cancer Congenital disease Congenital heart disease Coronary thrombosis Cystic fibrosis Deafness or hearing loss Dementia Diabetes mellitus Drug abuse Fibrocystic disease of breast Gastroenteritis Headache disorder Infertility Kidney disease Neoplasm Not obtainable due to adoption Parkinson's disease Prostate cancer Psychosocial problem Respiratory disorder Seizure disorder Severe allergy Thyroid disease Tuberculosis Visual disorder GI Disease Physical Exam Vital Signs - First Documented 03/05/18 14:40 Temp 98.4 Pulse 94 Resp 22 B/P (MAP) 137/86 (103) Pulse Ox 97 O2 Delivery Nasal Cannula O2 Flow Rate 5.00 Capillary Refill : Height: 5'3.00" Weight: 220lbs. 0.0oz. 99.202891mn; 39.0 BMI Method:Estimated General Appearance: WD/WN, mild distress Eyes: Bilateral Eye Normal Inspection, Bilateral Eye PERRL, Bilateral Eye EOMI HEENT: PERRL/EOMI, normal ENT inspection, pharynx normal Respiratory: chest non-tender, no respiratory distress, no accessory muscle use , decreased breath sounds; No rales; wheezing (scant) Cardiovascular: normal peripheral pulses, regular rate, rhythm, no edema Gastrointestinal: normal bowel sounds, non tender, soft Extremities: normal range of motion, normal capillary refill, other (right knee without erythema but there is some psoriatic plaque on it. Ballotable patella with mild joint effusion. Full range of motion and mild anterior tenderness to palpation.) Neurologic/Psychiatric: alert, normal mood/affect, oriented x 3 Skin: normal color, warm/dry, rash (psoriatic plaques on all extremities.) Progress/Results/Core Measures Suspected Sepsis SIRS Temperature: Pulse: Respiratory Rate: Laboratory Tests 03/05/18 14:40: White Blood Count 16.8H Blood Pressure / Mean: Laboratory Tests 03/05/18 14:40: Creatinine 1.08, Platelet Count 459H, Total Bilirubin 0.3 Results/Orders Lab Results Laboratory Tests Test 03/05/18 00:00 03/05/18 14:40 03/05/18 15:20 Range/Units White Blood Count 16.8 H 4.3-11.0 10^3/uL Red Blood Count 6.04 H 4.35-5.85 10^6/uL Hemoglobin 14.2 11.5-16.0 G/DL Hematocrit 47 35-52 % Mean Corpuscular Volume 78 L 80-99 FL Mean Corpuscular Hemoglobin 24 L 25-34 PG Mean Corpuscular Hemoglobin Concent 30 L 32-36 G/DL Red Cell Distribution Width 21.0 H 10.0-14.5 % Platelet Count 459 H 130-400 10^3/uL Mean Platelet Volume 10.0 7.4-10.4 FL Neutrophils (%) (Auto) 72 42-75 % Lymphocytes (%) (Auto) 17 12-44 % Monocytes (%) (Auto) 9 0-12 % Eosinophils (%) (Auto) 2 0-10 % Basophils (%) (Auto) 0 0-10 % Neutrophils # (Auto) 12.1 H 1.8-7.8 X 10^3 Lymphocytes # (Auto) 2.8 1.0-4.0 X 10^3 Monocytes # (Auto) 1.4 H 0.0-1.0 X 10^3 Eosinophils # (Auto) 0.4 H 0.0-0.3 10^3/uL Basophils # (Auto) 0.1 0.0-0.1 10^3/uL Neutrophils % (Manual) 65 % Lymphocytes % (Manual) 25 % Monocytes % (Manual) 6 % Eosinophils % (Manual) 4 % Basophils % (Manual) 0 % Band Neutrophils 0 % Hypochromasia SLIGHT Anisocytosis SLIGHT Microcytosis SLIGHT Erythrocyte Sedimentation Rate 1 0-30 MM/HR Sodium Level 142 135-145 MMOL/L Potassium Level 5.0 3.6-5.0 MMOL/L Chloride Level 103 98-107 MMOL/L Carbon Dioxide Level 31 21-32 MMOL/L Anion Gap 8 5-14 MMOL/L Blood Urea Nitrogen 16 7-18 MG/DL Creatinine 1.08 0.60-1.30 MG/DL Estimat Glomerular Filtration Rate 52 BUN/Creatinine Ratio 15 Glucose Level 116 H 70-105 MG/DL Calcium Level 9.4 8.5-10.1 MG/DL Corrected Calcium 9.3 8.5-10.1 MG/DL Total Bilirubin 0.3 0.1-1.0 MG/DL Aspartate Amino Transf (AST/SGOT) 13 5-34 U/L Alanine Aminotransferase (ALT/SGPT) 7 0-55 U/L Alkaline Phosphatase 107 40-136 U/L C-Reactive Protein High Sensitivity 1.25 H 0.00-0.50 MG/DL Total Protein 7.3 6.4-8.2 GM/DL Albumin 4.1 3.2-4.5 GM/DL Blood Gas Puncture Site RT RAD Blood Gas Patient Temperature 97.4 Arterial Blood pH 7.30 *L 7.37-7.43 Arterial Blood Partial Pressure CO2 69 H 35-45 MMHG Arterial Blood Partial Pressure O2 114 H 79-93 MMHG Arterial Blood HCO3 33 H 23-27 MMOL/L Arterial Blood Total CO2 35.6 H 21.0-31.0 MMOL/L Arterial Blood Oxygen Saturation 98 94-100 % Arterial Blood Base Excess 7.0 H -2.5-2.5 MMOL/L Merlin Test YES-POS Blood Gas Ventilator Setting NO Blood Gas Inspired Oxygen 5L My Orders Orders - SHERIN BOURNE Cbc With Automated Diff (03/05/18 14:27) Comprehensive Metabolic Panel (03/05/18 14:27) Hs C Reactive Protein (03/05/18 14:27) Erythrocyte Sedimentation Rate (03/05/18 14:27) Ua Culture If Indicated (03/05/18 14:27) Chest 1 View, Ap/Pa Only (03/05/18 14:27) Albuterol/Ipra Inhalation Soln (Duoneb I (03/05/18 14:30) Saline Lock/Iv-Start (03/05/18 14:27) Svn Small Volume Nebulizer (03/05/18 14:27) Manual Differential (03/05/18 14:40) Arterial Blood Gas (03/05/18 15:24) Rt Request For Service (03/05/18 15:34) Fibrin Degradation Products (03/05/18 15:43) Rocephin 1 Gm Iv (1 X Dose) (03/05/18 16:30) Medications Given in ED Current Medications Medications Dose Ordered Sig/Randy Route Start Time Stop Time Status Last Admin Dose Admin Albuterol/ Ipratropium 3 ml ONCE ONCE INH 03/05/18 14:30 03/05/18 14:31 DC 03/05/18 15:17 3 ML Vital Signs/I&O 03/05/18 03/05/18 14:40 15:17 Temp 98.4 Pulse 94 Resp 22 B/P (MAP) 137/86 (103) Pulse Ox 97 95 O2 Delivery Nasal Cannula Nasal Cannula O2 Flow Rate 5.00 4.00 Capillary Refill : Progress Note #1: Time: 14:52 Progress Note Patient has a nontraumatic knee was some effusion and would be better treated outpatient. We have offered her something for the pain and she's declined. For her breathing or any give her a DuoNeb and reevaluate get some labs and x-ray. Her oxygen saturation was 81% on room air when transferring from the gurney to the bed on her own power. We put her back on 4 L that brought her at 97-100%. Progress Note #2: Time: 16:24 Progress Note The patient had a noted blood pressure of 89 solitary and we repeated it after repositioning the cuff and it was 133 systolic. She is smiling and sitting up looking much better on the Vapotherm now than she was before. Diagnostic Imaging Diagonstic Imaging: Xray Plain Films/CT/US/NM/MRI: chest (1v) Comments Stable linear opacifications in the right upper lung consistent with an x-ray from 2017. Obscured left base versus infiltrate. [facility] [place], [place] NAME: [facility] REC#: [id number] PT STATUS: REG ER : 1960 PHYSICIAN: SHERIN BOURNE MD ADMIT DATE: 03/05/18/ER Draft Date of Exam:03/05/18 CHEST 1 VIEW, AP/PA ONLY INDICATION: Shortness of breath. Frontal chest obtained at 03:49 p.m. and is compared to 07/30/2016. Heart is normal in size. Mediastinal silhouette is unremarkable. The lungs show chronic-appearing increased basilar markings which are similar to the prior study. There is no pneumothorax or pleural fluid. There are vascular calcifications overlying the right subclavian region. IMPRESSION: Chronic-appearing increased basilar markings are similar to the previous study. There is no new infiltrate, pneumothorax, or pleural fluid. 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 Dictated on workstation # [id number] Dict: 03/05/18 1618 Trans: 03/05/18 1623 [id number] Interpreted by: FRANCIS KATHLEEN MD Electronically signed by: Reviewed: Reviewed by Me Departure Communication (Admissions) Time/Spoke to Admitting Phy: 16:20 Discussed case lab imaging findings with Dr. MEI. He agrees with Rocephin and azithromycin as well as Vapotherm. He is okay with going to the floor. He would like CBC, BMP and a PA/lateral chest x-ray in the morning. Impression Primary Impression: COPD exacerbation Additional Impression: Pneumonia Qualified Codes: J18.9 - Pneumonia, unspecified organism Disposition: ADMITTED INPATIENT Condition: Stable Admissions Decision to Admit Reason: Admit from ER (General) Decision to Admit/Date: Mar 05, 2018 Time/Decision to Admit Time: 16:13 Departure-Patient Inst. Referrals: JOCELYNE MEI DO (PCP/Family) Primary Care Physician SHERIN BOURNE Mar 05, 2018 14:31
[2018-03-05 15:01] LABS: BASOPHILS # (AUTO) 0.1 10^3/uL (0.0-0.1); BASOPHILS % (AUTO) 0 % (0-10); EOSINOPHILS # (AUTO) 0.4 10^3/uL (0.0-0.3); EOSINOPHILS % (AUTO) 2 % (0-10); HEMATOCRIT 47 % (35-52); HEMOGLOBIN 14.2 G/DL (11.5-16.0); LYMPHOCYTES # (AUTO) 2.8 X 10^3 (1.0-4.0); LYMPHOCYTES % (AUTO) 17 % (12-44); MEAN CORPUSCULAR HEMOGLOBIN 24 PG (25-34); MEAN CORPUSCULAR HGB CONC 30 G/DL (32-36); MEAN CORPUSCULAR VOLUME 78 FL (80-99); MONOCYTES # (AUTO) 1.4 X 10^3 (0.0-1.0); MONOCYTES % (AUTO) 9 % (0-12); NEUTROPHILS # (AUTO) 12.1 X 10^3 (1.8-7.8); NEUTROPHILS % (AUTO) 72 % (42-75); PLATELET COUNT 459 10^3/uL (130-400); RED BLOOD COUNT 6.04 10^6/uL (4.35-5.85); WHITE BLOOD COUNT 16.8 10^3/uL (4.3-11.0)
[2018-03-05 15:22] LABS: ALBUMIN 4.1 GM/DL (3.2-4.5); BILIRUBIN,TOTAL 0.3 MG/DL (0.1-1.0); CALCIUM 9.4 MG/DL (8.5-10.1); CREATININE SERUM 1.08 MG/DL (0.60-1.30); TOTAL PROTEIN 7.3 GM/DL (6.4-8.2)
[2018-03-05 15:29] LABS: ANISOCYTOSIS SLIGHT; BAND NEUTROPHILS 0 %; BASOPHILS % (MANUAL) 0 %; EOSINOPHILS % (MANUAL) 4 %; ERYTHROCYTE SEDIMENTATION RATE 1 MM/HR (0-30); HYPOCHROMASIA SLIGHT; LYMPHOCYTES % (MANUAL) 25 %; MICROCYTOSIS SLIGHT; MONOCYTES % (MANUAL) 6 %; NEUTROPHILS % (MANUAL) 65 %
[2018-03-05 15:32] LABS: ABG OXYGEN SATURATION 98 % (94-100); ABG PCO2 69 MMHG (35-45); ABG PO2 114 MMHG (79-93); ABG TCO2 35.6 MMOL/L (21.0-31.0)
[2018-03-05 15:34] LABS: ALLENS TEST YES-POS; INSPIRED O2 5L; PATIENT TEMP 97.4; VENTILATOR NO
--- NOTE | 2018-03-05 16:23 | Diagnostic Imaging Report ---
INDICATION: Shortness of breath. Frontal chest obtained at 03:49 p.m. and is compared to 07/30/2016. Heart is normal in size. Mediastinal silhouette is unremarkable. The lungs show chronic-appearing increased basilar markings which are similar to the prior study. There is no pneumothorax or pleural fluid. There are vascular calcifications overlying the right subclavian region. IMPRESSION: Chronic-appearing increased basilar markings are similar to the previous study. There is no new infiltrate, pneumothorax, or pleural fluid. 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 Dictated by: Dictated on workstation # [id number]
[2018-03-05 16:27] LABS: CLARITY,URINE SLIGHTLY CLOUDY; COLOR,URINE AMBER; GLUCOSE, URINE (UA) NEGATIVE (NEGATIVE); KETONES,URINE 1+ (NEGATIVE); LEUKOCYTE ESTERASE ,URINE 1+ (NEGATIVE); NITRITE,URINE NEGATIVE (NEGATIVE); PH,URINE 5 (5-9); PROTEIN,URINE 2+ (NEGATIVE); UROBILINOGEN,URINE 4 MG/DL (NORMAL)
[2018-03-05] MEDS ORDERED: cefTRIAXone FOR IV USE 1,000 MG in NS (IVPB) 50 ML IV ONE (16:30)
--- OUTSIDE RECORDS SUMMARY | 2018-03-05 16:45 | XMS REPORT | Continuity of Care Document ---
Author Author [facility] Organization [facility] Address Unknown Phone Unavailable Allergies Active Description Code Type Severity Reaction Onset Reported/Identified Relationship to Patient Clinical Status Yes meperidine [id number] Drug Allergy Mild HAS RECEIVED FE 08/11/2009 Yes acetaminophen [id number] Drug Allergy Mild NAUSEA 11/21/2009 Yes clindamycin [id number] Drug Allergy Mild HIVES 11/21/2009 Yes morphine [id number] Drug Allergy Mild N/A 11/21/2009 Yes codeine [id number] Drug Allergy Unknown NAUSEA 11/21/2009 Medications There is no data. Problems Date Dx Coded Attending Type Code Diagnosis Diagnosed By 08/13/2009 Ot 530.11 REFLUX ESOPHAGITIS 08/13/2009 Ot 535.40 OTH SPECIFIED GASTRITIS,W/O MENTION OF H 08/13/2009 Ot 553.3 DIAPHRAGMATIC HERNIA 08/13/2009 Ot 562.11 DIVERTICULITIS COLON (W/O MENT OF HEMORR 11/16/2009 Ot 285.9 11/16/2009 Ot 305.1 11/16/2009 Ot 401.9 11/16/2009 Ot 780.79 11/16/2009 Ot 785.0 11/16/2009 Ot V55.3 11/16/2009 Ot V57.1 11/16/2009 Ot V57.21 11/16/2009 Ot V58.49 11/23/2009 Ot 285.9 11/23/2009 Ot 300.00 11/23/2009 Ot 401.9 11/23/2009 Ot 427.89 11/23/2009 Ot 492.8 11/23/2009 Ot V44.3 11/23/2009 Ot V58.69 05/09/2010 Ot 008.45 07/10/2014 Ot 562.11 07/10/2014 Ot V72.63 07/10/2014 Ot V72.81 07/10/2014 Ot V74.8 07/10/2014 Ot 564.00 07/10/2014 Ot 780.60 07/10/2014 Ot 244.9 07/10/2014 Ot 496 07/10/2014 Ot 569.81 07/10/2014 Ot 569.83 07/10/2014 Ot 710.0 07/10/2014 Ot 998.59 07/10/2014 Ot 251.2 07/10/2014 Ot 276.8 07/10/2014 Ot 244.9 07/10/2014 Ot 276.8 07/10/2014 Ot 701.1 07/10/2014 Ot 704.00 07/10/2014 Ot 276.8 07/10/2014 Ot 276.8 07/15/2014 GELLENDER DO, JOCELYNE Flowers Ot 272.0 PURE HYPERCHOLESTEROLEM 07/15/2014 GELLENDER DOJOCELYNE Ot 288.60 LEUKOCYTOSIS, UNSPECIFIED 07/15/2014 GELLENDER DO, JOCELYNE Flowers Ot 296.80 BIPOLAR DISORDER, UNSPECIFIED 07/15/2014 GELLENDER DO, JOCELYNE Flowers Ot 305.1 TOBACCO USE DISORDER 07/15/2014 GELLENDER DOJOCELYNE Ot 401.9 HYPERTENSION NOS 07/15/2014 GELLENDER DOJOCELYNE Ot 473.9 CHRONIC SINUSITIS NOS 07/15/2014 GELLENDER DOJOCELYNE Ot 491.22 OBSTRUCTIVE CHRONIC BRONCHITIS WITH ACUT 07/15/2014 GELLENDER DOJOCELYNE Ot 710.0 SYST LUPUS ERYTHEMATOSIS 07/15/2014 GELLENDER DOJOCELYNE Ot 784.0 HEADACHE 07/15/2014 GELLENDER DOJOCELYNE Ot E932.0 ADV EFF CORTICOSTEROIDS 07/15/2014 [facility] Ot V13.3 HX-SKIN/SUBCUTAN TIS DIS 07/15/2014 GELLENDER DOJOCELYNE Ot V45.72 ACQRD ABSENCE INTESTINE - LARGE/SMALL 12/07/2014 GELLENDER DOJOCELYNE Ot 368.8 12/07/2014 GELLENDER DOJOCELYNE Ot 721.0 12/07/2014 GELLENDER DOJOCELYNE Ot 782.0 12/07/2014 GELLENDER DOJOCELYNE Ot 787.20 05/23/2016 GELLENDER DOJOCELYNE Ot D48.5 NEOPLASM OF UNCERTAIN BEHAVIOR OF SKIN 05/23/2016 GELLENDER DOJOCELYNE Ot E78.00 PURE HYPERCHOLESTEROLEMIA, UNSPECIFIED 05/23/2016 GELLENDER DO, JOCELYNE Flowers Ot F17.210 NICOTINE DEPENDENCE, CIGARETTES, UNCOMPL 05/23/2016 GELLENDER DO, JOCELYNE Flowers Ot F31.5 BIPOLAR DISORD, CRNT EPSD DEPRESS, SEVER 05/23/2016 GELLENDER DO, JOCELYNE Flowers Ot I10 ESSENTIAL (PRIMARY) HYPERTENSION 05/23/2016 GELLENDER DO, JOCELYNE Flowers Ot J44.1 CHRONIC OBSTRUCTIVE PULMONARY DISEASE W 05/23/2016 GELLENDER DO, JOCELYNE Flowers Ot K21.9 GASTRO-ESOPHAGEAL REFLUX DISEASE WITHOUT 05/23/2016 GELLENDER DO, JOCELYNE Flowers Ot L40.0 PSORIASIS VULGARIS 05/23/2016 GELLENDER DO, JOCELYNE Flowers Ot M32.9 SYSTEMIC LUPUS ERYTHEMATOSUS, UNSPECIFIE 05/23/2016 GELLENDER DO, JOCELYNE Flowers Ot M79.89 OTHER SPECIFIED SOFT TISSUE DISORDERS 05/23/2016 GELLENDER DO, JOCELYNE Flowers Ot R44.0 AUDITORY HALLUCINATIONS 05/23/2016 GELLENDER DO, JOCELYNE Flowers Ot R44.1 VISUAL HALLUCINATIONS 05/23/2016 GELLENDER DO, JOCELYNE Flowers Ot R51 HEADACHE 05/23/2016 GELLENDER DO, JOCELYNE Flowers Ot R53.1 WEAKNESS 05/23/2016 GELLENDER DO, JOCELYNE Flowers Ot Z91.81 HISTORY OF FALLING 07/02/2016 SEKOU MAK DO Ot E78.5 HYPERLIPIDEMIA, UNSPECIFIED 07/02/2016 SEKOU MAK DO Ot F17.210 NICOTINE DEPENDENCE, CIGARETTES, UNCOMPL 07/02/2016 SEKOU MAK DO Ot F31.9 BIPOLAR DISORDER, UNSPECIFIED 07/02/2016 SEKOU MAK DO Ot I10 ESSENTIAL (PRIMARY) HYPERTENSION 07/02/2016 SEKOU MAK DO Ot J44.9 CHRONIC OBSTRUCTIVE PULMONARY DISEASE, U 07/02/2016 SEKOU MAK DO Ot M79.601 PAIN IN RIGHT ARM 07/02/2016 SEKOU MAK DO Ot R07.89 OTHER CHEST PAIN 07/02/2016 SEKOU MAK DO Ot R07.9 CHEST PAIN, UNSPECIFIED 07/02/2016 SEKOU MAK DO Ot R44.1 VISUAL HALLUCINATIONS 07/02/2016 SEKOU MAK DO Ot Z79.899 OTHER CORRECTION (CURRENT) DRUG THERAPY 07/05/2016 AUBREE DO, SEKOU K Ot E78.5 HYPERLIPIDEMIA, UNSPECIFIED 07/05/2016 AUBREE DO, SEKOU K Ot F17.210 NICOTINE DEPENDENCE, CIGARETTES, UNCOMPL 07/05/2016 AUBREE DO, SEKOU K Ot F31.9 BIPOLAR DISORDER, UNSPECIFIED 07/05/2016 AUBREE DO, SEKOU K Ot I10 ESSENTIAL (PRIMARY) HYPERTENSION 07/05/2016 AUBREE DOOBDULIAA K Ot J44.9 CHRONIC OBSTRUCTIVE PULMONARY DISEASE, U 07/05/2016 AUBREE DO SEKOU K Ot M79.601 PAIN IN RIGHT ARM 07/05/2016 AUBREE DO, SEKOU K Ot R07.89 OTHER CHEST PAIN 07/05/2016 AUBREE DO, SEKOU K Ot R07.9 CHEST PAIN, UNSPECIFIED 07/05/2016 AUBREE DO, SEKOU K Ot R44.1 VISUAL HALLUCINATIONS 07/05/2016 AUBREE DO, SEKOU K Ot Z79.899 OTHER CORRECTION (CURRENT) DRUG THERAPY 07/08/2016 AUBREE DO, SEKOU K Ot E78.5 HYPERLIPIDEMIA, UNSPECIFIED 07/08/2016 AUBREE DO, SEKOU K Ot F17.210 NICOTINE DEPENDENCE, CIGARETTES, UNCOMPL 07/08/2016 AUBREE DO, SEKOU K Ot F31.9 BIPOLAR DISORDER, UNSPECIFIED 07/08/2016 AUBREE DO, SEKOU K Ot I10 ESSENTIAL (PRIMARY) HYPERTENSION 07/08/2016 AUBREE DO, SEKOU K Ot J44.9 CHRONIC OBSTRUCTIVE PULMONARY DISEASE, U 07/08/2016 AUBREE DO, SEKOU K Ot M79.601 PAIN IN RIGHT ARM 07/08/2016 AUBREE DO, SEKOU K Ot R07.89 OTHER CHEST PAIN 07/08/2016 AUBREE DO, SEKOU K Ot R07.9 CHEST PAIN, UNSPECIFIED 07/08/2016 AUBREE DO, SEKOU K Ot R44.1 VISUAL HALLUCINATIONS 07/08/2016 AUBREE DO, SEKOU K Ot Z79.899 OTHER CORRECTION (CURRENT) DRUG THERAPY 07/30/2016 LIAM DE LA FUENTE, SAEED [place] Ot D72.829 ELEVATED WHITE BLOOD CELL COUNT, UNSPECI 07/30/2016 LIAM DE LA FUENTE, SAEED [place] Ot F29 UNSP PSYCHOSIS NOT DUE TO A SUBSTANCE OR 07/30/2016 BRUEGGEMANN MD, SAEED T Ot I10 ESSENTIAL (PRIMARY) HYPERTENSION 07/30/2016 SAEED WHEELER MD Ot J44.9 CHRONIC OBSTRUCTIVE PULMONARY DISEASE, U 07/30/2016 SAEED WHEELER MD Ot L98.9 DISORDER OF THE SKIN AND SUBCUTANEOUS TI 07/30/2016 SAEED WHEELER MD Ot R44.1 VISUAL HALLUCINATIONS 07/30/2016 SAEED WHEELER MD Ot R45.851 SUICIDAL IDEATIONS 07/30/2016 SAEED WHEELER MD Ot Z79.899 OTHER INTEGRITY ENGINEER (CURRENT) DRUG THERAPY 08/01/2016 SAEED WHEELER MD Ot D72.829 ELEVATED WHITE BLOOD CELL COUNT, UNSPECI 08/01/2016 SAEED WHEELER MD Ot F29 UNSP PSYCHOSIS NOT DUE TO A SUBSTANCE OR 08/01/2016 SAEED WHEELER MD Ot I10 ESSENTIAL (PRIMARY) HYPERTENSION 08/01/2016 SAEED WHEELER MD Ot J44.9 CHRONIC OBSTRUCTIVE PULMONARY DISEASE, U 08/01/2016 SAEED WHEELER MD Ot L98.9 DISORDER OF THE SKIN AND SUBCUTANEOUS TI 08/01/2016 SAEED WHEEELR MD Ot R44.1 VISUAL HALLUCINATIONS 08/01/2016 SAEED WHEELER MD Ot R45.851 SUICIDAL IDEATIONS 08/01/2016 SAEED WHEELER MD Ot Z79.899 OTHER CORRECTION (CURRENT) DRUG THERAPY 07/05/2017 GELLENDER DO, JOCELYNE A Ot E78.5 HYPERLIPIDEMIA, UNSPECIFIED 07/05/2017 GELLENDER DO, JOCELYNE A Ot G45.9 TRANSIENT CEREBRAL ISCHEMIC ATTACK, UNSP 07/27/2017 GELLENDER DO, JOCELYNE A Ot E78.5 HYPERLIPIDEMIA, UNSPECIFIED 07/27/2017 GELLENDER DO, JOCELYNE A Ot G45.9 TRANSIENT CEREBRAL ISCHEMIC ATTACK, UNSP 08/20/2017 GELLENDER DO, JOCELYNE A Ot E78.5 HYPERLIPIDEMIA, UNSPECIFIED 08/20/2017 GELLENDER DO, JOCELYNE A Ot G45.9 TRANSIENT CEREBRAL ISCHEMIC ATTACK, UNSP 08/20/2017 GELLENDER DO, JOCELYNE A Ot E78.5 HYPERLIPIDEMIA, UNSPECIFIED 08/20/2017 GELLENDER DO, JOCELYNE Flowers Ot G45.9 TRANSIENT CEREBRAL ISCHEMIC ATTACK, UNSP 12/19/2017 GELLENDER DO, JOCELYNE Kristie Ot Z12.31 ENCNTR SCREEN MAMMOGRAM FOR MALIGNANT NE 12/24/2017 GELLENDER DO, JOCELYNE Kristie Ot Z12.31 ENCNTR SCREEN MAMMOGRAM FOR MALIGNANT NE 12/27/2017 GELLENDER DO, JOCELYNE Flowers Ot R92.0 MAMMOGRAPHIC MICROCALCIFICATION FOUND ON 12/27/2017 GELLENDER DO, JOCELYNE Kristie Ot Z12.31 ENCNTR SCREEN MAMMOGRAM FOR MALIGNANT NE 01/03/2018 GELLENDER DO, JOCELYNE Kristie Ot 368.8 VISUAL DISTURBANCES NEC 01/03/2018 GELLENDER DO, JOCELYNE Flowers Ot 721.0 CERVICAL SPONDYLOSIS 01/03/2018 GELLENDER DO, JOCELYNE Flowers Ot 782.0 SKIN SENSATION DISTURB 01/03/2018 GELLENDER DO, JOCELYNE Flowers Ot 787.20 DYSPHAGIA, UNSPECIFIED 01/03/2018 GELLENDER DO, JOCELYNE Flowers Ot E78.5 HYPERLIPIDEMIA, UNSPECIFIED 01/03/2018 GELLENDER DO, JOCELYNE Flowers Ot G45.9 TRANSIENT CEREBRAL ISCHEMIC ATTACK, UNSP 01/03/2018 GELLENDER DO, JOCELYNE Flowers Ot R92.0 MAMMOGRAPHIC MICROCALCIFICATION FOUND ON 01/03/2018 GELLENDER DO, JOCELYNE Flowers Ot Z12.31 ENCNTR SCREEN MAMMOGRAM FOR MALIGNANT NE 01/03/2018 GELLENDER DO, JOCELYNE Kristie Ot R92.2 INCONCLUSIVE MAMMOGRAM 01/04/2018 GELLENDER DO, JOCELYNE Flowers Ot M19.011 PRIMARY OSTEOARTHRITIS, RIGHT SHOULDER 01/04/2018 GELLENDER DO, JOCELYNE Flowers Ot N63.12 UNSPECIFIED LUMP IN THE RIGHT BREAST, UP 01/08/2018 GELLENDER DO, JOCELYNE Flowers Ot N63.11 UNSPECIFIED LUMP IN THE RIGHT BREAST, UP 01/25/2018 GELLENDER DO, JOCELYNE Flowers Ot M19.011 PRIMARY OSTEOARTHRITIS, RIGHT SHOULDER 01/25/2018 GELLENDER DO, JOCELYNE Flowers Ot N63.12 UNSPECIFIED LUMP IN THE RIGHT BREAST, UP 01/31/2018 GELLENDER DO, JOCELYNE Flowers Ot N60.31 FIBROSCLEROSIS OF RIGHT BREAST Procedures Code Description Performed By Performed On 45.76 OPEN AND OTHER SIGMOIDECTOMY 09/29/2009 38.93 VENOUS CATHETERIZATION NEC 10/07/2009 45.76 OPEN AND OTHER SIGMOIDECTOMY 10/07/2009 46.10 COLOSTOMY NOS 10/07/2009 46.94 REVISE LG BOWEL ANASTOM 10/07/2009 54.4 DESTRUCT PERITONEAL TISS 10/07/2009 96.71 CONTINUOUS INVASIVE MECHANICAL VENTILATI 10/07/2009 99.77 APPL/ADMIN OF AN ADHESION BARRIER SUBSTA 10/07/2009 [id number] DRAINAGE OF SPINAL CANAL, PERCUTANEOUS A 05/17/2016 Results Test Result Range Complete blood count (CBC) with automated white blood cell (WBC) differential - 05/17/16 07:18 Blood leukocytes automated count (number/volume) 19.5 10*3/uL 4.3-11.0 Blood erythrocytes automated count (number/volume) 4.72 10*6/uL 4.35-5.85 Venous blood hemoglobin measurement (mass/volume) 13.8 g/dL 11.5-16.0 Blood hematocrit (volume fraction) 44 % 35-52 Automated erythrocyte mean corpuscular volume 94 [foz_us] 80-99 Automated erythrocyte mean corpuscular hemoglobin (mass per erythrocyte) 29 pg 25-34 Automated erythrocyte mean corpuscular hemoglobin concentration measurement ( mass/volume) 31 g/dL 32-36 Automated erythrocyte distribution width ratio 16.6 % 10.0-14.5 Automated blood platelet count (count/volume) 345 10*3/uL 130-400 Automated blood platelet mean volume measurement 10.7 [foz_us] 7.4-10.4 Automated blood neutrophils/100 leukocytes 78 % 42-75 Automated blood lymphocytes/100 leukocytes 15 % 12-44 Blood monocytes/100 leukocytes 6 % 0-12 Automated blood eosinophils/100 leukocytes 2 % 0-10 Automated blood basophils/100 leukocytes 0 % 0-10 Blood neutrophils automated count (number/volume) 15.2 10*3 1.8-7.8 Blood lymphocytes automated count (number/volume) 2.9 10*3 1.0-4.0 Blood monocytes automated count (number/volume) 1.1 10*3 0.0-1.0 Automated eosinophil count 0.4 10*3/uL 0.0-0.3 Automated blood basophil count (count/volume) 0.0 10*3/uL 0.0-0.1 PT panel in platelet poor plasma by coagulation assay - 05/17/16 07:18 Prothrombin time (PT) in platelet poor plasma by coagulation assay 12.4 s 12.2-14.7 INR in platelet poor plasma or blood by coagulation assay 1.0 0.8-1.4 Blood lactic acid measurement (moles/volume) - 05/17/16 07:18 Blood lactic acid measurement (moles/volume) 0.8 mmol/L 0.5-2.0 Activated partial thromboplastin time (aPTT) in platelet poor plasma bycoagulation assay - 05/17/16 07:18 Activated partial thromboplastin time (aPTT) in platelet poor plasma bycoagulation assay 30 s 24-35 Fibrin D-dimer FEU measurement in platelet poor plasma (mass/volume) - 07:18 Fibrin D-dimer FEU measurement in platelet poor plasma (mass/volume) 1.69 ug/mL 0.00-0.49 Blood manual differential performed detection - 05/17/16 07:18 Blood monocytes/100 leukocytes 2 % NRG Manual blood segmented neutrophils/100 leukocytes 84 % NRG Blood band neutrophils/100 leukocytes 0 % NRG Manual blood lymphocytes/100 leukocytes 13 % NRG Manual eosinophils/100 leukocytes in nose 1 % NRG Manual blood basophils/100 leukocytes 0 % NRG Blood erythrocyte morphology finding identification NORMAL [facility] Comprehensive metabolic panel - 05/17/16 07:18 Serum or plasma sodium measurement (moles/volume) 137 mmol/L 135-145 Serum or plasma potassium measurement (moles/volume) 4.7 mmol/L 3.6-5.0 Serum or plasma chloride measurement (moles/volume) 105 mmol/L 98-107 Carbon dioxide 24 mmol/L 21-32 Serum or plasma anion gap determination (moles/volume) 8 mmol/L 5-14 Serum or plasma urea nitrogen measurement (mass/volume) 22 mg/dL 7-18 Serum or plasma creatinine measurement (mass/volume) 0.84 mg/dL 0.60-1.30 Serum or plasma urea nitrogen/creatinine mass ratio 26 NRG Serum or plasma creatinine measurement with calculation of estimated glomerular filtration rate > NRG Serum or plasma glucose measurement (mass/volume) 102 mg/dL 70-105 Serum or plasma calcium measurement (mass/volume) 9.4 mg/dL 8.5-10.1 Serum or plasma total bilirubin measurement (mass/volume) 0.7 mg/dL 0.1-1.0 Serum or plasma alkaline phosphatase measurement (enzymatic activity/volume) 88 U/L 40-136 Serum or plasma aspartate aminotransferase measurement (enzymatic activity/ volume) 11 U/L 5-34 Serum or plasma alanine aminotransferase measurement (enzymatic activity/volume ) 10 U/L 0-55 Serum or plasma protein measurement (mass/volume) 7.3 g/dL 6.4-8.2 Serum or plasma albumin measurement (mass/volume) 4.1 g/dL 3.2-4.5 Serum or plasma uric acid measurement (mass/volume) - 05/17/16 07:18 Serum or plasma uric acid measurement (mass/volume) 6.6 mg/dL 2.6-7.2 Serum or plasma C reactive protein measurement (mass/volume) - 05/17/16 07:18 Serum or plasma C reactive protein measurement (mass/volume) 21.42 mg/dL 0.00-0.50 Erythrocyte sedimentation rate by westergren method - 05/17/16 07:18 Erythrocyte sedimentation rate by westergren method 12 mm 0-30 Serum or plasma creatine kinase measurement (enzymatic activity/volume) - 05/17 07:18 Serum or plasma creatine kinase measurement (enzymatic activity/volume) 38 U/L 29-168 LITHIUM LEVEL - 05/17/16 07:18 [place] [mass/volume] in serum or plasma 0.7 % 0.5-1.5 Bacterial blood culture - 05/17/16 07:18 Bacterial blood culture NG [facility] Sputum Gram stain - 05/17/16 07:20 GRAM STAIN SPUTUM AND MIXED BACTERIAL CITL[place]Y [facility] Bacterial sputum culture - 05/17/16 07:20 Bacterial sputum culture NORMAL [facility] Influenza virus A and B antigen detection - 05/17/16 07:22 FLU RESULT NEGATIVE FOR INFLUENZA A AND B ANTIGENS BY IA [facility] Complete urinalysis with reflex to culture - 05/17/16 08:05 Urine color determination YELLOW NR Urine clarity determination CLEAR [facility] Urine pH measurement by test strip 7 5-9 Specific gravity of urine by test strip 1.010 1.016- 1.022 Urine protein assay by test strip, semi-quantitative 1+ NEGATIVE Urine glucose detection by automated test strip NEGATIVE NEGATIVE Erythrocytes detection in urine sediment by light microscopy NEGATIVE NEGATIVE Urine ketones detection by automated test strip NEGATIVE NEGATIVE Urine nitrite detection by test strip NEGATIVE NEGATIVE Urine total bilirubin detection by test strip NEGATIVE NEGATIVE Urine urobilinogen measurement by automated test strip (mass/volume) NORMAL NORMAL Urine leukocyte esterase detection by dipstick 1+ NEGATIVE Automated urine sediment erythrocyte count by microscopy (number/high power field) RARE NRG Automated urine sediment leukocyte count by microscopy (number/high power field ) RARE NRG Bacteria detection in urine sediment by light microscopy NEGATIVE NRG Squamous epithelial cells detection in urine sediment by light microscopy 0-2 NRG Crystals detection in urine sediment by light microscopy NONE NRG Casts detection in urine sediment by light microscopy NONE NRG Mucus detection in urine sediment by light microscopy NEGATIVE NRG Complete urinalysis with reflex to culture NO NRG Bacterial blood culture - 05/17/16 08:15 Bacterial blood culture NG NRG Cerebrospinal fluid cell count - 05/17/16 12:09 Cerebrospinal fluid appearance description CLEAR NRG Cerebrospinal fluid color identification COLORLESS NRG Cerebrospinal fluid leukocytes count (number/volume) 0 % 0-5 Cerebrospinal fluid erythrocytes count (number/volume) 2 % 0-0 Manual cerebrospinal fluid lymphocytes/100 leukocytes TNP NRG Manual cerebrospinal fluid mononuclear cells/100 leukocytes TNP NRG Manual cerebrospinal fluid polymorphonuclear cells/100 leukocytes TNP NRG Cerebrospinal fluid cell count on specimen from last tube collected 4 NRG Cerebrospinal fluid glucose measurement (mass/volume) - 05/17/16 12:09 Cerebrospinal fluid glucose measurement (mass/volume) 56 mg/dL 50-80 Cerebrospinal fluid protein measurement (mass/volume) - 05/17/16 12:09 Cerebrospinal fluid protein measurement (mass/volume) 22 mg/dL 15-40 Gram stain microscopy - 05/17/16 12:09 GRAM STAIN RESULT NO WBC'S OR BACTERIA OBSERVED NRG Bacterial cerebrospinal fluid culture - 05/17/16 12:09 Bacterial cerebrospinal fluid culture NG NRG Virus identification by culture - 05/17/16 12:09 Virus identification by culture FOOTNOTE NRG Capillary blood glucose measurement by glucometer (mass/volume) - 05/18/16 04: 02 Capillary blood glucose measurement by glucometer (mass/volume) 193 mg/dL 70-110 Complete blood count (CBC) with automated white blood cell (WBC) differential - 05/18/16 05:48 Blood leukocytes automated count (number/volume) 15.2 10*3/uL 4.3-11.0 Blood erythrocytes automated count (number/volume) 4.45 10*6/uL 4.35-5.85 Venous blood hemoglobin measurement (mass/volume) 12.9 g/dL 11.5-16.0 Blood hematocrit (volume fraction) 41 % 35-52 Automated erythrocyte mean corpuscular volume 93 [foz_us] 80-99 Automated erythrocyte mean corpuscular hemoglobin (mass per erythrocyte) 29 pg 25-34 Automated erythrocyte mean corpuscular hemoglobin concentration measurement ( mass/volume) 31 g/dL 32-36 Automated erythrocyte distribution width ratio 15.9 % 10.0-14.5 Automated blood platelet count (count/volume) 366 10*3/uL 130-400 Automated blood platelet mean volume measurement 10.3 [foz_us] 7.4-10.4 Automated blood neutrophils/100 leukocytes 90 % 42-75 Automated blood lymphocytes/100 leukocytes 9 % 12-44 Blood monocytes/100 leukocytes 1 % 0-12 Automated blood eosinophils/100 leukocytes 0 % 0-10 Automated blood basophils/100 leukocytes 0 % 0-10 Blood neutrophils automated count (number/volume) 13.7 10*3 1.8-7.8 Blood lymphocytes automated count (number/volume) 1.3 10*3 1.0-4.0 Blood monocytes automated count (number/volume) 0.2 10*3 0.0-1.0 Automated eosinophil count 0.0 10*3/uL 0.0-0.3 Automated blood basophil count (count/volume) 0.0 10*3/uL 0.0-0.1 Comprehensive metabolic panel - 05/18/16 05:48 Serum or plasma sodium measurement (moles/volume) 139 mmol/L 135-145 Serum or plasma potassium measurement (moles/volume) 4.3 mmol/L 3.6-5.0 Serum or plasma chloride measurement (moles/volume) 110 mmol/L 98-107 Carbon dioxide 19 mmol/L 21-32 Serum or plasma anion gap determination (moles/volume) 10 mmol/L 5-14 Serum or plasma urea nitrogen measurement (mass/volume) 22 mg/dL 7-18 Serum or plasma creatinine measurement (mass/volume) 0.83 mg/dL 0.60-1.30 Serum or plasma urea nitrogen/creatinine mass ratio 27 NRG Serum or plasma creatinine measurement with calculation of estimated glomerular filtration rate > NRG Serum or plasma glucose measurement (mass/volume) 188 mg/dL 70-105 Serum or plasma calcium measurement (mass/volume) 9.3 mg/dL 8.5-10.1 Serum or plasma total bilirubin measurement (mass/volume) 0.3 mg/dL 0.1-1.0 Serum or plasma alkaline phosphatase measurement (enzymatic activity/volume) 85 U/L 40-136 Serum or plasma aspartate aminotransferase measurement (enzymatic activity/ volume) 11 U/L 5-34 Serum or plasma alanine aminotransferase measurement (enzymatic activity/volume ) 10 U/L 0-55 Serum or plasma protein measurement (mass/volume) 6.7 g/dL 6.4-8.2 Serum or plasma albumin measurement (mass/volume) 3.7 g/dL 3.2-4.5 Serum or plasma C reactive protein measurement (mass/volume) - 05/18/16 05:48 Serum or plasma C reactive protein measurement (mass/volume) 14.34 mg/dL 0.00-0.50 Erythrocyte sedimentation rate by westergren method - 05/18/16 05:48 Erythrocyte sedimentation rate by westergren method 69 mm 0-30 ANTI-NUCLEAR AB (LAUREN) ANALYZER - 05/18/16 05:48 Screening antinuclear antibody (LAUREN) assay by enzyme immunoassay <1: 80 <1:80 Complete blood count (CBC) with automated white blood cell (WBC) differential - 05/19/16 05:30 Blood leukocytes automated count (number/volume) 22.4 10*3/uL 4.3-11.0 Blood erythrocytes automated count (number/volume) 4.79 10*6/uL 4.35-5.85 Venous blood hemoglobin measurement (mass/volume) 13.8 g/dL 11.5-16.0 Blood hematocrit (volume fraction) 45 % 35-52 Automated erythrocyte mean corpuscular volume 93 [foz_us] 80-99 Automated erythrocyte mean corpuscular hemoglobin (mass per erythrocyte) 29 pg 25-34 Automated erythrocyte mean corpuscular hemoglobin concentration measurement ( mass/volume) 31 g/dL 32-36 Automated erythrocyte distribution width ratio 16.1 % 10.0-14.5 Automated blood platelet count (count/volume) 469 10*3/uL 130-400 Automated blood platelet mean volume measurement 10.4 [foz_us] 7.4-10.4 Automated blood neutrophils/100 leukocytes 89 % 42-75 Automated blood lymphocytes/100 leukocytes 9 % 12-44 Blood monocytes/100 leukocytes 2 % 0-12 Automated blood eosinophils/100 leukocytes 0 % 0-10 Automated blood basophils/100 leukocytes 0 % 0-10 Blood neutrophils automated count (number/volume) 19.9 10*3 1.8-7.8 Blood lymphocytes automated count (number/volume) 2.0 10*3 1.0-4.0 Blood monocytes automated count (number/volume) 0.4 10*3 0.0-1.0 Automated eosinophil count 0.0 10*3/uL 0.0-0.3 Automated blood basophil count (count/volume) 0.0 10*3/uL 0.0-0.1 Comprehensive metabolic panel - 05/19/16 05:30 Serum or plasma sodium measurement (moles/volume) 142 mmol/L 135-145 Serum or plasma potassium measurement (moles/volume) 4.2 mmol/L 3.6-5.0 Serum or plasma chloride measurement (moles/volume) 109 mmol/L 98-107 Carbon dioxide 19 mmol/L 21-32 Serum or plasma anion gap determination (moles/volume) 14 mmol/L 5-14 Serum or plasma urea nitrogen measurement (mass/volume) 29 mg/dL 7-18 Serum or plasma creatinine measurement (mass/volume) 0.90 mg/dL 0.60-1.30 Serum or plasma urea nitrogen/creatinine mass ratio 32 NRG Serum or plasma creatinine measurement with calculation of estimated glomerular filtration rate > NRG Serum or plasma glucose measurement (mass/volume) 145 mg/dL 70-105 Serum or plasma calcium measurement (mass/volume) 9.6 mg/dL 8.5-10.1 Serum or plasma total bilirubin measurement (mass/volume) 0.3 mg/dL 0.1-1.0 Serum or plasma alkaline phosphatase measurement (enzymatic activity/volume) 82 U/L 40-136 Serum or plasma aspartate aminotransferase measurement (enzymatic activity/ volume) 13 U/L 5-34 Serum or plasma alanine aminotransferase measurement (enzymatic activity/volume ) 11 U/L 0-55 Serum or plasma protein measurement (mass/volume) 7.3 g/dL 6.4-8.2 Serum or plasma albumin measurement (mass/volume) 4.1 g/dL 3.2-4.5 Magnesium - 05/19/16 05:30 Magnesium 2.5 mg/dL 1.8-2.4 Blood manual differential performed detection - 05/19/16 05:30 Blood monocytes/100 leukocytes 2 % NRG Manual blood segmented neutrophils/100 leukocytes 92 % NRG Blood band neutrophils/100 leukocytes 0 % NRG Manual blood lymphocytes/100 leukocytes 6 % NRG Manual eosinophils/100 leukocytes in nose 0 % NRG Manual blood basophils/100 leukocytes 0 % NRG Blood erythrocyte morphology finding identification NORMAL NRG Complete blood count (CBC) with automated white blood cell (WBC) differential - 05/20/16 05:10 Blood leukocytes automated count (number/volume) 14.8 10*3/uL 4.3-11.0 Blood erythrocytes automated count (number/volume) 4.52 10*6/uL 4.35-5.85 Venous blood hemoglobin measurement (mass/volume) 13.1 g/dL 11.5-16.0 Blood hematocrit (volume fraction) 42 % 35-52 Automated erythrocyte mean corpuscular volume 92 [foz_us] 80-99 Automated erythrocyte mean corpuscular hemoglobin (mass per erythrocyte) 29 pg 25-34 Automated erythrocyte mean corpuscular hemoglobin concentration measurement ( mass/volume) 32 g/dL 32-36 Automated erythrocyte distribution width ratio 15.4 % 10.0-14.5 Automated blood platelet count (count/volume) 428 10*3/uL 130-400 Automated blood platelet mean volume measurement 10.1 [foz_us] 7.4-10.4 Automated blood neutrophils/100 leukocytes 83 % 42-75 Automated blood lymphocytes/100 leukocytes 13 % 12-44 Blood monocytes/100 leukocytes 5 % 0-12 Automated blood eosinophils/100 leukocytes 0 % 0-10 Automated blood basophils/100 leukocytes 0 % 0-10 Blood neutrophils automated count (number/volume) 12.2 10*3 1.8-7.8 Blood lymphocytes automated count (number/volume) 1.9 10*3 1.0-4.0 Blood monocytes automated count (number/volume) 0.7 10*3 0.0-1.0 Automated eosinophil count 0.0 10*3/uL 0.0-0.3 Automated blood basophil count (count/volume) 0.0 10*3/uL 0.0-0.1 Comprehensive metabolic panel - 05/20/16 05:10 Serum or plasma sodium measurement (moles/volume) 140 mmol/L 135-145 Serum or plasma potassium measurement (moles/volume) 3.7 mmol/L 3.6-5.0 Serum or plasma chloride measurement (moles/volume) 107 mmol/L 98-107 Carbon dioxide 20 mmol/L 21-32 Serum or plasma anion gap determination (moles/volume) 13 mmol/L 5-14 Serum or plasma urea nitrogen measurement (mass/volume) 32 mg/dL 7-18 Serum or plasma creatinine measurement (mass/volume) 0.83 mg/dL 0.60-1.30 Serum or plasma urea nitrogen/creatinine mass ratio 39 NRG Serum or plasma creatinine measurement with calculation of estimated glomerular filtration rate > NRG Serum or plasma glucose measurement (mass/volume) 135 mg/dL 70-105 Serum or plasma calcium measurement (mass/volume) 9.1 mg/dL 8.5-10.1 Serum or plasma total bilirubin measurement (mass/volume) 0.3 mg/dL 0.1-1.0 Serum or plasma alkaline phosphatase measurement (enzymatic activity/volume) 65 U/L 40-136 Serum or plasma aspartate aminotransferase measurement (enzymatic activity/ volume) 16 U/L 5-34 Serum or plasma alanine aminotransferase measurement (enzymatic activity/volume ) 12 U/L 0-55 Serum or plasma protein measurement (mass/volume) 6.4 g/dL 6.4-8.2 Serum or plasma albumin measurement (mass/volume) 3.8 g/dL 3.2-4.5 Magnesium - 05/20/16 05:10 Magnesium 2.4 mg/dL 1.8-2.4 Complete blood count (CBC) with automated white blood cell (WBC) differential - 05/21/16 05:23 Blood leukocytes automated count (number/volume) 17.4 10*3/uL 4.3-11.0 Blood erythrocytes automated count (number/volume) 5.09 10*6/uL 4.35-5.85 Venous blood hemoglobin measurement (mass/volume) 14.5 g/dL 11.5-16.0 Blood hematocrit (volume fraction) 46 % 35-52 Automated erythrocyte mean corpuscular volume 91 [foz_us] 80-99 Automated erythrocyte mean corpuscular hemoglobin (mass per erythrocyte) 29 pg 25-34 Automated erythrocyte mean corpuscular hemoglobin concentration measurement ( mass/volume) 32 g/dL 32-36 Automated erythrocyte distribution width ratio 15.2 % 10.0-14.5 Automated blood platelet count (count/volume) 514 10*3/uL 130-400 Automated blood platelet mean volume measurement 10.0 [foz_us] 7.4-10.4 Automated blood neutrophils/100 leukocytes 74 % 42-75 Automated blood lymphocytes/100 leukocytes 18 % 12-44 Blood monocytes/100 leukocytes 8 % 0-12 Automated blood eosinophils/100 leukocytes 0 % 0-10 Automated blood basophils/100 leukocytes 0 % 0-10 Blood neutrophils automated count (number/volume) 12.9 10*3 1.8-7.8 Blood lymphocytes automated count (number/volume) 3.1 10*3 1.0-4.0 Blood monocytes automated count (number/volume) 1.4 10*3 0.0-1.0 Automated eosinophil count 0.0 10*3/uL 0.0-0.3 Automated blood basophil count (count/volume) 0.0 10*3/uL 0.0-0.1 Blood manual differential performed detection - 05/21/16 05:23 Blood monocytes/100 leukocytes 7 % NRG Manual blood segmented neutrophils/100 leukocytes 65 % NRG Blood band neutrophils/100 leukocytes 2 % NRG Manual blood lymphocytes/100 leukocytes 11 % NRG Manual eosinophils/100 leukocytes in nose 0 % NRG Manual blood basophils/100 leukocytes 0 % NRG Blood lymphocytes variant/100 leukocytes 15 % NRG Blood anisocytosis detection by light microscopy SLIGHT NR Whole blood basic metabolic panel - 05/21/16 05:23 Serum or plasma sodium measurement (moles/volume) 140 mmol/L 135-145 Serum or plasma potassium measurement (moles/volume) 3.7 mmol/L 3.6-5.0 Serum or plasma chloride measurement (moles/volume) 104 mmol/L 98-107 Carbon dioxide 21 mmol/L 21-32 Serum or plasma anion gap determination (moles/volume) 15 mmol/L 5-14 Serum or plasma urea nitrogen measurement (mass/volume) 34 mg/dL 7-18 Serum or plasma creatinine measurement (mass/volume) 1.06 mg/dL 0.60-1.30 Serum or plasma urea nitrogen/creatinine mass ratio 32 NRG Serum or plasma creatinine measurement with calculation of estimated glomerular filtration rate 54 NRG Serum or plasma glucose measurement (mass/volume) 134 mg/dL 70-105 Serum or plasma calcium measurement (mass/volume) 9.4 mg/dL 8.5-10.1 Complete blood count (CBC) with automated white blood cell (WBC) differential - 05/22/16 05:51 Blood leukocytes automated count (number/volume) 22.8 10*3/uL 4.3-11.0 Blood erythrocytes automated count (number/volume) 4.78 10*6/uL 4.35-5.85 Venous blood hemoglobin measurement (mass/volume) 13.7 g/dL 11.5-16.0 Blood hematocrit (volume fraction) 44 % 35-52 Automated erythrocyte mean corpuscular volume 91 [foz_us] 80-99 Automated erythrocyte mean corpuscular hemoglobin (mass per erythrocyte) 29 pg 25-34 Automated erythrocyte mean corpuscular hemoglobin concentration measurement ( mass/volume) 31 g/dL 32-36 Automated erythrocyte distribution width ratio 15.1 % 10.0-14.5 Automated blood platelet count (count/volume) 483 10*3/uL 130-400 Automated blood platelet mean volume measurement 9.7 [foz_us] 7.4-10.4 Automated blood neutrophils/100 leukocytes 62 % 42-75 Automated blood lymphocytes/100 leukocytes 28 % 12-44 Blood monocytes/100 leukocytes 9 % 0-12 Automated blood eosinophils/100 leukocytes 1 % 0-10 Automated blood basophils/100 leukocytes 0 % 0-10 Blood neutrophils automated count (number/volume) 14.2 10*3 1.8-7.8 Blood lymphocytes automated count (number/volume) 6.4 10*3 1.0-4.0 Blood monocytes automated count (number/volume) 2.1 10*3 0.0-1.0 Automated eosinophil count 0.2 10*3/uL 0.0-0.3 Automated blood basophil count (count/volume) 0.0 10*3/uL 0.0-0.1 Blood manual differential performed detection - 05/22/16 05:51 Blood monocytes/100 leukocytes 2 % NRG Manual blood segmented neutrophils/100 leukocytes 64 % NRG Blood band neutrophils/100 leukocytes 0 % NRG Manual blood lymphocytes/100 leukocytes 18 % NRG Manual eosinophils/100 leukocytes in nose 0 % NRG Manual blood basophils/100 leukocytes 0 % NRG Blood lymphocytes variant/100 leukocytes 16 % NRG Blood anisocytosis detection by light microscopy SLIGHT NRG Comprehensive metabolic panel - 05/22/16 05:51 Serum or plasma sodium measurement (moles/volume) 139 mmol/L 135-145 Serum or plasma potassium measurement (moles/volume) 3.5 mmol/L 3.6-5.0 Serum or plasma chloride measurement (moles/volume) 104 mmol/L 98-107 Carbon dioxide 23 mmol/L 21-32 Serum or plasma anion gap determination (moles/volume) 12 mmol/L 5-14 Serum or plasma urea nitrogen measurement (mass/volume) 41 mg/dL 7-18 Serum or plasma creatinine measurement (mass/volume) 1.13 mg/dL 0.60-1.30 Serum or plasma urea nitrogen/creatinine mass ratio 36 NRG Serum or plasma creatinine measurement with calculation of estimated glomerular filtration rate 50 NRG Serum or plasma glucose measurement (mass/volume) 99 mg/dL 70-105 Serum or plasma calcium measurement (mass/volume) 8.9 mg/dL 8.5-10.1 Serum or plasma total bilirubin measurement (mass/volume) 0.5 mg/dL 0.1-1.0 Serum or plasma alkaline phosphatase measurement (enzymatic activity/volume) 57 U/L 40-136 Serum or plasma aspartate aminotransferase measurement (enzymatic activity/ volume) 21 U/L 5-34 Serum or plasma alanine aminotransferase measurement (enzymatic activity/volume ) 18 U/L 0-55 Serum or plasma protein measurement (mass/volume) 6.2 g/dL 6.4-8.2 Serum or plasma albumin measurement (mass/volume) 4.0 g/dL 3.2-4.5 Complete blood count (CBC) with automated white blood cell (WBC) differential - 05/23/16 05:49 Blood leukocytes automated count (number/volume) 21.1 10*3/uL 4.3-11.0 Blood erythrocytes automated count (number/volume) 4.48 10*6/uL 4.35-5.85 Venous blood hemoglobin measurement (mass/volume) 13.0 g/dL 11.5-16.0 Blood hematocrit (volume fraction) 41 % 35-52 Automated erythrocyte mean corpuscular volume 92 [foz_us] 80-99 Automated erythrocyte mean corpuscular hemoglobin (mass per erythrocyte) 29 pg 25-34 Automated erythrocyte mean corpuscular hemoglobin concentration measurement ( mass/volume) 32 g/dL 32-36 Automated erythrocyte distribution width ratio 15.2 % 10.0-14.5 Automated blood platelet count (count/volume) 467 10*3/uL 130-400 Automated blood platelet mean volume measurement 9.9 [foz_us] 7.4-10.4 Automated blood neutrophils/100 leukocytes 63 % 42-75 Automated blood lymphocytes/100 leukocytes 25 % 12-44 Blood monocytes/100 leukocytes 7 % 0-12 Automated blood eosinophils/100 leukocytes 5 % 0-10 Automated blood basophils/100 leukocytes 0 % 0-10 Blood neutrophils automated count (number/volume) 13.3 10*3 1.8-7.8 Blood lymphocytes automated count (number/volume) 5.4 10*3 1.0-4.0 Blood monocytes automated count (number/volume) 1.4 10*3 0.0-1.0 Automated eosinophil count 1.0 10*3/uL 0.0-0.3 Automated blood basophil count (count/volume) 0.0 10*3/uL 0.0-0.1 Comprehensive metabolic panel - 05/23/16 05:49 Serum or plasma sodium measurement (moles/volume) 139 mmol/L 135-145 Serum or plasma potassium measurement (moles/volume) 3.3 mmol/L 3.6-5.0 Serum or plasma chloride measurement (moles/volume) 102 mmol/L 98-107 Carbon dioxide 26 mmol/L 21-32 Serum or plasma anion gap determination (moles/volume) 11 mmol/L 5-14 Serum or plasma urea nitrogen measurement (mass/volume) 37 mg/dL 7-18 Serum or plasma creatinine measurement (mass/volume) 1.11 mg/dL 0.60-1.30 Serum or plasma urea nitrogen/creatinine mass ratio 33 NRG Serum or plasma creatinine measurement with calculation of estimated glomerular filtration rate 51 NRG Serum or plasma glucose measurement (mass/volume) 98 mg/dL 70-105 Serum or plasma calcium measurement (mass/volume) 8.7 mg/dL 8.5-10.1 Serum or plasma total bilirubin measurement (mass/volume) 0.6 mg/dL 0.1-1.0 Serum or plasma alkaline phosphatase measurement (enzymatic activity/volume) 52 U/L 40-136 Serum or plasma aspartate aminotransferase measurement (enzymatic activity/ volume) 17 U/L 5-34 Serum or plasma alanine aminotransferase measurement (enzymatic activity/volume ) 17 U/L 0-55 Serum or plasma protein measurement (mass/volume) 5.7 g/dL 6.4-8.2 Serum or plasma albumin measurement (mass/volume) 3.5 g/dL 3.2-4.5 Complete blood count (CBC) with automated white blood cell (WBC) differential - 07/02/16 03:15 Blood leukocytes automated count (number/volume) 12.1 10*3/uL 4.3-11.0 Blood erythrocytes automated count (number/volume) 4.78 10*6/uL 4.35-5.85 Venous blood hemoglobin measurement (mass/volume) 13.7 g/dL 11.5-16.0 Blood hematocrit (volume fraction) 45 % 35-52 Automated erythrocyte mean corpuscular volume 94 [foz_us] 80-99 Automated erythrocyte mean corpuscular hemoglobin (mass per erythrocyte) 29 pg 25-34 Automated erythrocyte mean corpuscular hemoglobin concentration measurement ( mass/volume) 30 g/dL 32-36 Automated erythrocyte distribution width ratio 15.6 % 10.0-14.5 Automated blood platelet count (count/volume) 401 10*3/uL 130-400 Automated blood platelet mean volume measurement 10.4 [foz_us] 7.4-10.4 Automated blood neutrophils/100 leukocytes 64 % 42-75 Automated blood lymphocytes/100 leukocytes 24 % 12-44 Blood monocytes/100 leukocytes 6 % 0-12 Automated blood eosinophils/100 leukocytes 6 % 0-10 Automated blood basophils/100 leukocytes 1 % 0-10 Blood neutrophils automated count (number/volume) 7.7 10*3 1.8-7.8 Blood lymphocytes automated count (number/volume) 2.8 10*3 1.0-4.0 Blood monocytes automated count (number/volume) 0.7 10*3 0.0-1.0 Automated eosinophil count 0.8 10*3/uL 0.0-0.3 Automated blood basophil count (count/volume) 0.1 10*3/uL 0.0-0.1 PT panel in platelet poor plasma by coagulation assay - 07/02/16 03:15 Prothrombin time (PT) in platelet poor plasma by coagulation assay 11.3 s 12.2-14.7 INR in platelet poor plasma or blood by coagulation assay 0.9 0.8-1.4 Activated partial thromboplastin time (aPTT) in platelet poor plasma bycoagulation assay - 07/02/16 03:15 Activated partial thromboplastin time (aPTT) in platelet poor plasma bycoagulation assay 27 s 24-35 Comprehensive metabolic panel - 07/02/16 03:15 Serum or plasma sodium measurement (moles/volume) 141 mmol/L 135-145 Serum or plasma potassium measurement (moles/volume) 4.3 mmol/L 3.6-5.0 Serum or plasma chloride measurement (moles/volume) 107 mmol/L 98-107 Carbon dioxide 23 mmol/L 21-32 Serum or plasma anion gap determination (moles/volume) 11 mmol/L 5-14 Serum or plasma urea nitrogen measurement (mass/volume) 24 mg/dL 7-18 Serum or plasma creatinine measurement (mass/volume) 0.92 mg/dL 0.60-1.30 Serum or plasma urea nitrogen/creatinine mass ratio 26 NRG Serum or plasma creatinine measurement with calculation of estimated glomerular filtration rate > NRG Serum or plasma glucose measurement (mass/volume) 107 mg/dL 70-105 Serum or plasma calcium measurement (mass/volume) 8.9 mg/dL 8.5-10.1 Serum or plasma total bilirubin measurement (mass/volume) 0.2 mg/dL 0.1-1.0 Serum or plasma alkaline phosphatase measurement (enzymatic activity/volume) 106 U/L 40-136 Serum or plasma aspartate aminotransferase measurement (enzymatic activity/ volume) 23 U/L 5-34 Serum or plasma alanine aminotransferase measurement (enzymatic activity/volume ) 22 U/L 0-55 Serum or plasma protein measurement (mass/volume) 6.8 g/dL 6.4-8.2 Serum or plasma albumin measurement (mass/volume) 4.1 g/dL 3.2-4.5 Serum or plasma creatine kinase measurement (enzymatic activity/volume) - 07/02 03:15 Serum or plasma creatine kinase measurement (enzymatic activity/volume) 51 U/L 29-168 Serum or plasma creatine kinase MB measurement (enzymatic activity/volume) - 03:15 Serum or plasma creatine kinase MB measurement (enzymatic activity/volume) 1.4 ng/mL <6.6 Serum or plasma troponin i.cardiac measurement (mass/volume) - 07/02/16 03:15 Serum or plasma troponin i.cardiac measurement (mass/volume) < ng/ mL <0.30 Serum or plasma amylase measurement (enzymatic activity/volume) - 07/02/16 03: 15 Serum or plasma amylase measurement (enzymatic activity/volume) 53 U /L 25-125 Lipase - 07/02/16 03:15 Lipase 14 U/L 8-78 Serum or plasma thyrotropin measurement by detection limit <=0.05 miu/l (units/ volume) - 07/02/16 03:15 Serum or plasma thyrotropin measurement by detection limit <=0.05 miu/l (units/ volume) 1.57 u[iU]/mL 0.35-4.94 Serum or plasma lithium measurement (moles/volume) - 07/02/16 03:15 BNP level 18.4 pg/mL <100.0 Serum or plasma salicylates measurement (mass/volume) - 07/02/16 03:15 Serum or plasma salicylates measurement (mass/volume) < mg/dL 5.0-20.0 Serum or plasma acetaminophen measurement (mass/volume) - 07/02/16 03:15 Serum or plasma acetaminophen measurement (mass/volume) < ug/mL 10-30 Serum or plasma ethanol measurement (mass/volume) - 07/02/16 03:15 Serum or plasma ethanol measurement (mass/volume) < mg/dL <10 LITHIUM LEVEL - 07/02/16 03:15 [place] [mass/volume] in serum or plasma < % 0.5-1.5 Complete urinalysis with reflex to culture - 07/29/16 23:40 Urine color determination YELLOW NRG Urine clarity determination SLIGHTLY CLOUDY NRG Urine pH measurement by test strip 5 5-9 Specific gravity of urine by test strip 1.025 1.016- 1.022 Urine protein assay by test strip, semi-quantitative 2+ NEGATIVE Urine glucose detection by automated test strip NEGATIVE NEGATIVE Erythrocytes detection in urine sediment by light microscopy NEGATIVE NEGATIVE Urine ketones detection by automated test strip NEGATIVE NEGATIVE Urine nitrite detection by test strip NEGATIVE NEGATIVE Urine total bilirubin detection by test strip NEGATIVE NEGATIVE Urine urobilinogen measurement by automated test strip (mass/volume) NORMAL NORMAL Urine leukocyte esterase detection by dipstick 1+ NEGATIVE Automated urine sediment erythrocyte count by microscopy (number/high power field) NONE NRG Automated urine sediment leukocyte count by microscopy (number/high power field ) RARE NRG Bacteria detection in urine sediment by light microscopy MODERATE NRG Squamous epithelial cells detection in urine sediment by light microscopy 25-50 NRG Crystals detection in urine sediment by light microscopy PRESENT NRG Casts detection in urine sediment by light microscopy NONE NRG Mucus detection in urine sediment by light microscopy SMALL NRG Complete urinalysis with reflex to culture YES NRG Calcium oxalate crystals detection in urine sediment by light microscopy MODERATE NRG Urine drug screening test - 07/29/16 23:40 Urine phencyclidine detection by screening method NEGATIVE NEGATIVE Urine benzodiazepines detection by screening method NEGATIVE NEGATIVE Urine cocaine detection NEGATIVE NEGATIVE Urine amphetamines detection by screening method NEGATIVE NEGATIVE Urine methamphetamine detection by screening method NEGATIVE NEGATIVE Urine cannabinoids detection by screening method NEGATIVE NEGATIVE Urine opiates detection by screening method NEGATIVE NEGATIVE Urine barbiturates detection NEGATIVE NEGATIVE Screening urine tricyclic antidepressants detection POSITIVE NEGATIVE Urine methadone detection by screening method NEGATIVE NEGATIVE Urine oxycodone detection NEGATIVE NEGATIVE Urine propoxyphene detection NEGATIVE NEGATIVE Bacterial urine culture - 07/29/16 23:40 URINE CULTURE RESULTS <10,000/ML NRG Complete blood count (CBC) with automated white blood cell (WBC) differential - 07/30/16 00:11 Blood leukocytes automated count (number/volume) 12.7 10*3/uL 4.3-11.0 Blood erythrocytes automated count (number/volume) 5.01 10*6/uL 4.35-5.85 Venous blood hemoglobin measurement (mass/volume) 13.9 g/dL 11.5-16.0 Blood hematocrit (volume fraction) 44 % 35-52 Automated erythrocyte mean corpuscular volume 88 [foz_us] 80-99 Automated erythrocyte mean corpuscular hemoglobin (mass per erythrocyte) 28 pg 25-34 Automated erythrocyte mean corpuscular hemoglobin concentration measurement ( mass/volume) 32 g/dL 32-36 Automated erythrocyte distribution width ratio 14.6 % 10.0-14.5 Automated blood platelet count (count/volume) 376 10*3/uL 130-400 Automated blood platelet mean volume measurement 10.3 [foz_us] 7.4-10.4 Automated blood neutrophils/100 leukocytes 51 % 42-75 Automated blood lymphocytes/100 leukocytes 34 % 12-44 Blood monocytes/100 leukocytes 8 % 0-12 Automated blood eosinophils/100 leukocytes 7 % 0-10 Automated blood basophils/100 leukocytes 1 % 0-10 Blood neutrophils automated count (number/volume) 6.5 10*3 1.8-7.8 Blood lymphocytes automated count (number/volume) 4.3 10*3 1.0-4.0 Blood monocytes automated count (number/volume) 1.0 10*3 0.0-1.0 Automated eosinophil count 0.9 10*3/uL 0.0-0.3 Automated blood basophil count (count/volume) 0.1 10*3/uL 0.0-0.1 Comprehensive metabolic panel - 07/30/16 00:11 Serum or plasma sodium measurement (moles/volume) 142 mmol/L 135-145 Serum or plasma potassium measurement (moles/volume) 3.8 mmol/L 3.6-5.0 Serum or plasma chloride measurement (moles/volume) 106 mmol/L 98-107 Carbon dioxide 24 mmol/L 21-32 Serum or plasma anion gap determination (moles/volume) 12 mmol/L 5-14 Serum or plasma urea nitrogen measurement (mass/volume) 24 mg/dL 7-18 Serum or plasma creatinine measurement (mass/volume) 0.97 mg/dL 0.60-1.30 Serum or plasma urea nitrogen/creatinine mass ratio 25 NRG Serum or plasma creatinine measurement with calculation of estimated glomerular filtration rate 59 NRG Serum or plasma glucose measurement (mass/volume) 99 mg/dL 70-105 Serum or plasma calcium measurement (mass/volume) 9.2 mg/dL 8.5-10.1 Serum or plasma total bilirubin measurement (mass/volume) 0.2 mg/dL 0.1-1.0 Serum or plasma alkaline phosphatase measurement (enzymatic activity/volume) 103 U/L 40-136 Serum or plasma aspartate aminotransferase measurement (enzymatic activity/ volume) 16 U/L 5-34 Serum or plasma alanine aminotransferase measurement (enzymatic activity/volume ) 18 U/L 0-55 Serum or plasma protein measurement (mass/volume) 6.7 g/dL 6.4-8.2 Serum or plasma albumin measurement (mass/volume) 3.8 g/dL 3.2-4.5 Serum or plasma thyrotropin measurement by detection limit <=0.05 miu/l (units/ volume) - 07/30/16 00:11 Serum or plasma thyrotropin measurement by detection limit <=0.05 miu/l (units/ volume) 1.11 u[iU]/mL 0.35-4.94 Serum or plasma ethanol measurement (mass/volume) - 07/30/16 00:11 Serum or plasma ethanol measurement (mass/volume) < mg/dL <10 Serum or plasma C reactive protein measurement (mass/volume) - 07/30/16 00:11 Serum or plasma C reactive protein measurement (mass/volume) 1.08 mg /dL 0.00-0.50 LITHIUM LEVEL - 07/30/16 00:11 [place] [mass/volume] in serum or plasma < % 0.5-1.5 Influenza virus A and B antigen detection - 07/30/16 01:26 FLU RESULT NEGATIVE FOR INFLUENZA A AND B ANTIGENS BY [facility] Complete blood count (CBC) with automated white blood cell (WBC) differential - 03/05/18 14:40 Blood leukocytes automated count (number/volume) 16.8 10*3/uL 4.3-11.0 Blood erythrocytes automated count (number/volume) 6.04 10*6/uL 4.35-5.85 Venous blood hemoglobin measurement (mass/volume) 14.2 g/dL 11.5-16.0 Blood hematocrit (volume fraction) 47 % 35-52 Automated erythrocyte mean corpuscular volume 78 [foz_us] 80-99 Automated erythrocyte mean corpuscular hemoglobin (mass per erythrocyte) 24 pg 25-34 Automated erythrocyte mean corpuscular hemoglobin concentration measurement ( mass/volume) 30 g/dL 32-36 Automated erythrocyte distribution width ratio 21.0 % 10.0-14.5 Automated blood platelet count (count/volume) 459 10*3/uL 130-400 Automated blood platelet mean volume measurement 10.0 [foz_us] 7.4-10.4 Automated blood neutrophils/100 leukocytes 72 % 42-75 Automated blood lymphocytes/100 leukocytes 17 % 12-44 Blood monocytes/100 leukocytes 9 % 0-12 Automated blood eosinophils/100 leukocytes 2 % 0-10 Automated blood basophils/100 leukocytes 0 % 0-10 Blood neutrophils automated count (number/volume) 12.1 10*3 1.8-7.8 Blood lymphocytes automated count (number/volume) 2.8 10*3 1.0-4.0 Blood monocytes automated count (number/volume) 1.4 10*3 0.0-1.0 Automated eosinophil count 0.4 10*3/uL 0.0-0.3 Automated blood basophil count (count/volume) 0.1 10*3/uL 0.0-0.1 Comprehensive metabolic panel - 03/05/18 14:40 Serum or plasma sodium measurement (moles/volume) 142 mmol/L 135-145 Serum or plasma potassium measurement (moles/volume) 5.0 mmol/L 3.6-5.0 Serum or plasma chloride measurement (moles/volume) 103 mmol/L 98-107 Carbon dioxide 31 mmol/L 21-32 Serum or plasma anion gap determination (moles/volume) 8 mmol/L 5-14 Serum or plasma urea nitrogen measurement (mass/volume) 16 mg/dL 7-18 Serum or plasma creatinine measurement (mass/volume) 1.08 mg/dL 0.60-1.30 Serum or plasma urea nitrogen/creatinine mass ratio 15 NRG Serum or plasma creatinine measurement with calculation of estimated glomerular filtration rate 52 NRG Serum or plasma glucose measurement (mass/volume) 116 mg/dL 70-105 Serum or plasma calcium measurement (mass/volume) 9.4 mg/dL 8.5-10.1 Serum or plasma total bilirubin measurement (mass/volume) 0.3 mg/dL 0.1-1.0 Serum or plasma alkaline phosphatase measurement (enzymatic activity/volume) 107 U/L 40-136 Serum or plasma aspartate aminotransferase measurement (enzymatic activity/ volume) 13 U/L 5-34 Serum or plasma alanine aminotransferase measurement (enzymatic activity/volume ) 7 U/L 0-55 Serum or plasma protein measurement (mass/volume) 7.3 g/dL 6.4-8.2 Serum or plasma albumin measurement (mass/volume) 4.1 g/dL 3.2-4.5 CALCIUM CORRECTED 9.3 mg/dL 8.5-10.1 Serum or plasma C reactive protein measurement (mass/volume) - 03/05/18 14:40 Serum or plasma C reactive protein measurement (mass/volume) 1.25 mg /dL 0.00-0.50 Blood manual differential performed detection - 03/05/18 14:40 Blood monocytes/100 leukocytes 6 % NRG Manual blood segmented neutrophils/100 leukocytes 65 % NRG Blood band neutrophils/100 leukocytes 0 % NRG Manual blood lymphocytes/100 leukocytes 25 % NRG Manual eosinophils/100 leukocytes in nose 4 % NRG Manual blood basophils/100 leukocytes 0 % NRG Blood anisocytosis detection by light microscopy SLIGHT NRG Blood hypochromia detection by light microscopy SLIGHT NRG Blood microcytes detection by light microscopy SLIGHT NRG Erythrocyte sedimentation rate by westergren method - 03/05/18 14:40 Erythrocyte sedimentation rate by westergren method 1 mm 0-30 Arterial blood gas measurement - 03/05/18 15:20 Blood pCO2 69 mm[Hg] 35-45 Blood pO2 114 mm[Hg] 79-93 Arterial blood bicarbonate measurement (moles/volume) 33 mmol/L 23-27 Arterial blood base excess by calculation 7.0 mmol/L -2.5 -2.5 Arterial blood oxygen saturation measurement 98 % 94-100 * Inhaled oxygen flow rate 5L NRG Arterial blood pH measurement with patient temperature correction 7.30 7.37-7.43 Arterial blood carbon dioxide, total measurement (moles/volume) 35.6 mmol/L 21.0-31.0 Body site RT RAD NRG Assessment of wrist artery patency prior to arterial puncture YES- POS NRG Setting of ventilation mode NO NRG Measurement of body temperature 97.4 NRG Encounters ACCT No. Visit Date/Time Discharge Status Pt. Type Provider Facility Loc./Unit Complaint [id number] 01/08/2018 13:34:00 01/08/2018 23:59:59 CLS Outpatient JOCELYNE MEI DO [facility] RAD RIGHT BREAST SPICULATED MASS [id number] 01/03/2018 11:47:00 01/03/2018 23:59:59 CLS Outpatient JOCELYNE MEI DO [facility] RAD ABNORMAL MAMMOGRAM, SHOULDER PAIN [id number] 12/26/2017 08:07:00 12/26/2017 23:59:59 CLS Outpatient JOCELYNE MEI DO [facility] RAD MAMMO YEARLY [id number] 07/04/2017 16:05:00 07/04/2017 23:59:59 CLS Outpatient JOCELYNE MEI DO [facility] RAD TIA [id number] 07/29/2016 23:20:00 07/30/2016 06:22:00 DIS Emergency LIAM DE [place], [place] [facility] ER MENTAL HEALTH [id number] 07/02/2016 03:01:00 07/02/2016 04:58:00 DIS Emergency SEKOU MAK DO [facility] ER CHEST PAIN, HALLUCINATIONS [id number] 05/20/2016 14:01:00 05/23/2016 14:15:00 DIS Inpatient JOCELYNE MEI DO [facility] 4TH GENERALIZED WEAKNESS COPD EXACERBATION [id number] 11/18/2014 12:05:00 11/18/2014 23:59:59 CLS Outpatient JOCELYNE MEI DO [facility] RAD NUMBNESS TINGLING IN LEFT ARM BLURRED VISION DIZZI [id number] 03/05/2018 15:02:00 Document Registration [id number] 07/10/2014 12:07:00 ACT Inpatient JOCELYNE MEI DO [facility] 4TH COPD EXACERBATION URI HEADACHE [id number] 07/10/2014 12:00:00 Document Registration [id number] 07/10/2014 12:00:00 Document Registration [id number] 07/10/2014 12:00:00 Document Registration [id number] 07/10/2014 09:38:00 Document Registration [id number] 03/30/2010 12:00:00 Document Registration [id number] 02/23/2010 10:45:00 Document Registration [id number] 02/08/2010 11:30:00 Document Registration [id number] 02/07/2010 12:00:00 Document Registration [id number] 01/18/2010 10:25:00 Document Registration [id number] 2010 12:30:00 Document Registration [id number] 01/11/2010 12:00:00 Document Registration [id number] 12/16/2009 16:41:00 Document Registration [id number] 11/22/2009 04:56:00 Document Registration [id number] 11/10/2009 19:59:00 Document Registration [id number] 09/27/2009 11:38:00 Document Registration [id number] 08/11/2009 12:50:00 Document Registration [id number] 11/18/2014 12:06:04 ACT Document Registration [id number] 12/13/2017 16:06:05 12/13/2017 23:59:59 CLS Outpatient
[2018-03-05 16:47] LABS: BILIRUBIN,URINE 1+ (NEGATIVE)
[2018-03-05 16:48] LABS: BACTERIA,URINE FEW /HPF; CALCIUM OXALATE CRYSTALS,UR MODERATE /LPF; SQUAMOUS EPITHELIAL CELL,UR 25-50 /HPF
[2018-03-05 19:00] VITALS: BP 140/82
[2018-03-05] MEDS ORDERED: ONDANSETRON 4 MG/2 ML (SDV) Z0FRAN IV PRN (19:00)
[2018-03-05] MEDS ORDERED: ACETAMINOPHEN 500 MG TAB (TYLENOL) PO PRN (19:00)
[2018-03-05] MEDS ORDERED: IBUPROFEN 800 MG (MOTRIN) TAB PO PRN (19:00)
[2018-03-05] MEDS ORDERED: AZITHROMYCIN 500 MG/NS 250 ML IVPB IV NR ×2 (19:02)
[2018-03-05] MEDS: 1/2 NS W/KCL 20 MEQ/L 1,000 ML IV SCH (19:28)
[2018-03-05] MEDS: NICOTINE 14 MG (NICODERM) PATCH TD SCH (19:28)
[2018-03-05] MEDS: FAMOTIDINE 20 MG (PEPCID) TABLET PO SCH (20:31)
[2018-03-05] MEDS: busPIRone 15 MG (BUSPAR) TABLET PO SCH ×2 (20:31→20:34)
[2018-03-05] MEDS ORDERED: METO100T6 PO (20:48)
[2018-03-05 20:49] VITALS: BP 140/82
[2018-03-05] MEDS ORDERED: VERA180T5 PO (20:50)
[2018-03-05] MEDS ORDERED: DONE10TA12 PO (20:50)
[2018-03-05] MEDS ORDERED: CHOL500044 PO (20:52)
[2018-03-05] MEDS ORDERED: ATOR10TA PO (20:52)
[2018-03-05] MEDS ORDERED: POLY17PO6 PO (20:55)
[2018-03-05] MEDS ORDERED: ALBU2.5V4 IH (20:55)
[2018-03-05] MEDS ORDERED: GLYC10.7 IH (20:55)
[2018-03-05] MEDS ORDERED: ACET325T38 PO (20:59)
[2018-03-05] MEDS ORDERED: LITHIUM CARBONATE 300 MG TABLET PO SCH (21:00)
[2018-03-05] MEDS ORDERED: OLAN20TA3 PO (21:12)
[2018-03-05] MEDS ORDERED: CYCLOBENZAPRINE 10 MG (FLEXERIL) TAB ONE (21:23)
[2018-03-05] MEDS ORDERED: DONEPEZIL 10 MG (ARICEPT) TAB ONE (21:23)
--- NOTE | 2018-03-05 21:23 | History & Physicial ---
History of Present Illness History of Present Illness Reason for visit/HPI Patient short of breath. Patient has history of COPD. Patient has COPD with acute exacerbation. Patient lives alone. Patient has bipolar. Patient has urinary incontinence and feel she has a UTI. Patient sees a bilingual customer service osteoarthritis. Patient emergency room White blood cell count 16,000. Patient put on Vapotherm Patient had Ifeanyi: Surgery for diverticulitis and was in coma for 2-1/2 months. Patient has psoriasis. Patient smokes less than one pack a day Date of Admission Mar 05, 2018 at 16:38 Time Seen by a Provider: 21:19 I consulted on this patient on 03/05/18 21:19 Attending Physician Garrett Mei DO Admitting Physician Garrett Mei DO Consult Allergies and Home Medications Allergies Coded Allergies: clindamycin (Unverified Allergy, Mild, HIVES, 11/21/09) meperidine (Unverified Allergy, Mild, HAS RECEIVED FENTANYL IN THE PAST, ) morphine (Unverified Allergy, Mild, 11/21/09) codeine (Verified Adverse Reaction, Unknown, NAUSEA, 11/21/09) Home Medications Acetaminophen 325 Mg Tablet, 650 MG PO Q6H PRN for PAIN-MILD, (Reported) Albuterol Sulfate 2.5 Mg/3 Ml Vial.neb, 2.5 MG IH QID, (Reported) Atorvastatin Calcium 10 Mg Tablet, 10 MG PO HS, (Reported) Cetirizine HCl 10 Mg Tablet, 10 MG PO DAILY, (Reported) Cholecalciferol (Vitamin D3) 5,000 Unit Tablet, 5,000 UNIT PO DAILY, (Reported) Cyclobenzaprine HCl 10 Mg Tablet, 10 MG PO TID, (Reported) Donepezil HCl 10 Mg Tablet, 10 MG PO HS, (Reported) Famotidine 20 Mg Tablet, 20 MG PO BID, (Reported) Glycopyrrolate/Formoterol Fum 10.7 Gm Hfa.aer.ad, 10.7 GM IH BID, (Reported) Meloxicam 15 Mg Tablet, 15 MG PO DAILY, (Reported) Metoprolol Succinate 100 Mg Tab.er.24h, 100 MG PO DAILY, (Reported) Olanzapine 20 Mg Tablet, 40 MG PO HS, (Reported) Polyethylene Glycol 3350 17 Gm Powd.pack, 17 GM PO DAILY, (Reported) Verapamil HCl 180 Mg Tablet.er, 180 MG PO BID, (Reported) Patient Home Medication List Home Medication List Reviewed: Yes Past Mjurucm-Imkzyg-Xsxnyg Hx Patient Social History Employed/Student: retired Alcohol Use: Denies Use Recreational Drug Use: No Smoking Status: Current Everyday Smoker Type Used: Cigarettes 2nd Hand Smoke Exposure: Yes Recent Foreign Travel: No Contact w/other who traveled: No Recent Hopitalizations: No Recent Infectious Disease Expo: No Immunizations Up To Date Tetanus Booster (TDap): Unknown Pediatric: No Date of Pneumonia Vaccine: Mar 11, 2011 Seasonal Allergies Seasonal Allergies: No Surgeries Yes (PILONIDAL CYST, segmoid Colectomy 09/29/09, BOWEL RESECTION, COLOSTOMY ) Appendectomy, Bowel Surgery, Breast, Section, Hysterectomy, Oophorectomy, Tracheostomy Respiratory Yes COPD Cardiovascular Yes (SVT) Chronic Edema/Swelling, Coronary Artery Disease, High Cholesterol, Hypertension Neurological Yes Headaches /Migraines Reproductive System Hx Reproductive Disorders: Yes (RIGHT BREAST BENING LUMP-REMOVED) Sexually Transmitted Disease: No HIV/AIDS: No Female Reproductive Disorders: Denies Gastrointestinal Yes Gastroesophageal Reflux, Hiatal Hernia, Ulcer Musculoskeletal Yes (CHRONIC GENERALIZED PAIN ) Arthritis Endocrine History of Endocrine Disorders: Yes Endocrine Disorders: Hypothyroidsim, Lupus HEENT Loss of Vision: Denies Hearing Impairment: Denies Cancer No Psychosocial History of Psychiatric Problem: Yes Behavioral Health Disorders: Anxiety, Bipolar, Personality Disorder, Depression Integumentary History of Skin or Integumenta: Yes Skin/Integumentary Disorders: Psoriasis Blood Transfusions History of Blood Disorders: Yes (ANEMIA POST OP) Family Medical History Significant Family History: GI Disease Family Hx: Arthritis 19 FATHER 19 MOTHER Cardiovascular disease 19 FATHER Cataracts 19 MOTHER Completed stroke 19 MOTHER Dysphasia 19 FATHER FH: cirrhosis 19 MOTHER Glaucoma 19 MOTHER Hypercholesterolemia 19 FATHER Hypertension 19 FATHER 19 MOTHER Myocardial infarction 19 FATHER Osteoporosis 19 MOTHER No Family History of: AIDS Abdominal aortic aneurysm Kaiden's disease Alcoholism Alzheimer's disease Aphasia Asthma Cancer of mouth Colon cancer Congenital disease Congenital heart disease Coronary thrombosis Cystic fibrosis Deafness or hearing loss Dementia Diabetes mellitus Drug abuse Fibrocystic disease of breast Gastroenteritis Headache disorder Infertility Kidney disease Neoplasm Not obtainable due to adoption Parkinson's disease Prostate cancer Psychosocial problem Respiratory disorder Seizure disorder Severe allergy Thyroid disease Tuberculosis Visual disorder Review of Systems Constitutional: weakness EENTM: no symptoms reported Respiratory: cough, dyspnea on exertion, short of breath Cardiovascular: no symptoms reported Gastrointestinal: no symptoms reported Genitourinary: other (Incontinence and has bladder infection) : No Physical Exam Vital Signs Vital Signs - First Documented 03/05/18 14:40 Temp 98.4 Pulse 94 Resp 22 B/P (MAP) 137/86 (103) Pulse Ox 97 O2 Delivery Nasal Cannula O2 Flow Rate 5.00 Capillary Refill : Less Than 3 Seconds Height, Weight, BMI Height: 5'5.00" Weight: 220lbs. 0.0oz. 99.938963cv; 39.0 BMI Method:Stated General Appearance: No Apparent Distress, WD/WN Eyes: Bilateral Eye Normal Inspection HEENT: Normal ENT Inspection Neck: Full Range of Motion, Normal Inspection Respiratory: No Accessory Muscle Use, No Respiratory Distress, Decreased Breath Sounds Cardiovascular: Regular Rate, Rhythm, No Murmur Gastrointestinal: Non Tender, Soft Assessment/Plan Assessment and Plan COPD with acute exacerbation. UTI. Pneumonia. Leukocytosis. Hypertension. Hyperlipidemia. Osteoarthritis arthritis. Bipolar Admission Diagnosis Admission Status: Inpatient Order (span 2 midnights) Reason for Inpatient Admission: Short of breath. Dyspnea. COPD with acute exam patient. UTI. Right knee pain. Osteoarthritis GARRETT MEI DO Mar 05, 2018 21:23
[2018-03-05] MEDS ORDERED: ATORVASTATIN 10 MG (LIPITOR) TABLET ONE (21:24)
[2018-03-05] MEDS ORDERED: OLANZapine 5 MG (ZyPREXA) TAB ONE (21:29)
[2018-03-05] MEDS ORDERED: ENOXAPARIN 40 MG/0.4 ML (LOVENOX) SYR SC SCH (21:30)
[2018-03-05] MEDS ORDERED: VERAPAMIL SR 180 MG (CALAN SR) TAB PO ONE (21:31)
[2018-03-05] MEDS ORDERED: RT-ALBUTEROL/IPRATROPIUM 3 ML (DUONEB) VIAL INH PRN (21:45)
[2018-03-05] MEDS ORDERED: OLANZapine 5 MG (ZyPREXA) TAB PO SCH (21:46)
[2018-03-05] MEDS: VERAPAMIL SR 180 MG (CALAN SR) TAB PO SCH (21:54)
[2018-03-05] MEDS: DONEPEZIL 10 MG (ARICEPT) TAB PO SCH (21:55)
[2018-03-05] MEDS: ATORVASTATIN 10 MG (LIPITOR) TABLET PO SCH (21:55)
[2018-03-05] MEDS: CYCLOBENZAPRINE 10 MG (FLEXERIL) TAB PO SCH (21:55)
[2018-03-05] MEDS: RT-ALBUTEROL/IPRATROPIUM 3 ML (DUONEB) VIAL INH SCH (22:30)
[2018-03-06] VITALS (18 sets, daily range): BP systolic 103–132; BP diastolic 52–88
[2018-03-06] MEDS: 1/2 NS W/KCL 20 MEQ/L 1,000 ML IV SCH ×2 (01:30→01:42)
[2018-03-06] MEDS: RT-ALBUTEROL/IPRATROPIUM 3 ML (DUONEB) VIAL INH SCH ×6 (02:44→21:25)
[2018-03-06 06:19] LABS: BASOPHILS % (AUTO) 0 % (0-10); EOSINOPHILS # (AUTO) 0.6 10^3/uL (0.0-0.3); EOSINOPHILS % (AUTO) 4 % (0-10); HEMATOCRIT 43 % (35-52); HEMOGLOBIN 12.5 G/DL (11.5-16.0); LYMPHOCYTES # (AUTO) 3.1 X 10^3 (1.0-4.0); LYMPHOCYTES % (AUTO) 21 % (12-44); MEAN CORPUSCULAR HEMOGLOBIN 24 PG (25-34); MEAN CORPUSCULAR HGB CONC 29 G/DL (32-36); MEAN CORPUSCULAR VOLUME 81 FL (80-99); MEAN PLATELET VOLUME 10.3 FL (7.4-10.4); MONOCYTES # (AUTO) 1.3 X 10^3 (0.0-1.0); MONOCYTES % (AUTO) 9 % (0-12); NEUTROPHILS # (AUTO) 10.2 X 10^3 (1.8-7.8); NEUTROPHILS % (AUTO) 67 % (42-75); PLATELET COUNT 323 10^3/uL (130-400); RED BLOOD COUNT 5.26 10^6/uL (4.35-5.85); RED CELL DISTRIBUTION WIDTH 20.1 % (10.0-14.5); WHITE BLOOD COUNT 15.1 10^3/uL (4.3-11.0)
[2018-03-06 06:43] LABS: CALCIUM 8.6 MG/DL (8.5-10.1); CREATININE SERUM 1.13 MG/DL (0.60-1.30); POTASSIUM 5.3 MMOL/L (3.6-5.0)
[2018-03-06 06:59] LABS: ABG BASE EXCESS 4.2 MMOL/L (-2.5-2.5); ABG OXYGEN SATURATION 91 % (94-100); ABG PO2 68 MMHG (79-93); ABG TCO2 33.1 MMOL/L (21.0-31.0)
[2018-03-06 07:02] LABS: ABG PCO2 72 MMHG (35-45); ABG PH 7.26 (7.37-7.43)
[2018-03-06 07:04] LABS: ALLENS TEST NO
[2018-03-06 07:05] LABS: INSPIRED O2 20L; PATIENT TEMP 98.1; VENTILATOR NO
[2018-03-06] MEDS ORDERED: FLU QUADRIvalent (5+ YOA) 2018-2019 (AFLURIA) 0.5 ML IM ONE (07:30)
--- NOTE | 2018-03-06 07:41 | Pulmonary Consultation ---
History of Present Illness History of Present Illness Date of Consultation 03/06/18 07:40 Date of Admission Allergies and Home Medications Allergies Coded Allergies: clindamycin (Unverified Allergy, Mild, HIVES, 11/21/09) meperidine (Unverified Allergy, Mild, HAS RECEIVED FENTANYL IN THE PAST, ) morphine (Unverified Allergy, Mild, 11/21/09) codeine (Verified Adverse Reaction, Unknown, NAUSEA, 11/21/09) Home Medications Acetaminophen 325 Mg Tablet, 650 MG PO Q6H PRN for PAIN-MILD, (Reported) Albuterol Sulfate 2.5 Mg/3 Ml Vial.neb, 2.5 MG IH QID, (Reported) Atorvastatin Calcium 10 Mg Tablet, 10 MG PO HS, (Reported) Cetirizine HCl 10 Mg Tablet, 10 MG PO DAILY, (Reported) Cholecalciferol (Vitamin D3) 5,000 Unit Tablet, 5,000 UNIT PO DAILY, (Reported) Cyclobenzaprine HCl 10 Mg Tablet, 10 MG PO TID, (Reported) Donepezil HCl 10 Mg Tablet, 10 MG PO HS, (Reported) Famotidine 20 Mg Tablet, 20 MG PO BID, (Reported) Glycopyrrolate/Formoterol Fum 10.7 Gm Hfa.aer.ad, 10.7 GM IH BID, (Reported) Meloxicam 15 Mg Tablet, 15 MG PO DAILY, (Reported) Metoprolol Succinate 100 Mg Tab.er.24h, 100 MG PO DAILY, (Reported) Olanzapine 20 Mg Tablet, 40 MG PO HS, (Reported) Polyethylene Glycol 3350 17 Gm Powd.pack, 17 GM PO DAILY, (Reported) Verapamil HCl 180 Mg Tablet.er, 180 MG PO BID, (Reported) Past Gyieoqb-Xehzbj-Evlvfk Hx Patient Social History Alcohol Use: Denies Use Recreational Drug Use: No Smoking Status: Current Everyday Smoker Type Used: Cigarettes 2nd Hand Smoke Exposure: Yes Recent Foreign Travel: No Contact w/Someone Who Travel: No Recent Infectious Disease Expo: No Recent Hopitalizations: No Physical Abuse: No Sexual Abuse: No Immunizations Up To Date Tetanus Booster (TDap): Unknown PED Vaccines UTD: No Date of Pneumonia Vaccine: Mar 11, 2011 Date of Influenza Vaccine: Feb 22, 2018 Seasonal Allergies Seasonal Allergies: No Past Medical History Surgeries: Yes (PILONIDAL CYST, segmoid Colectomy 09/29/09, BOWEL RESECTION, COLOSTOMY ) Appendectomy, Bowel Surgery, Breast, Section, Hysterectomy, Oophorectomy, Tracheostomy Respiratory: Yes Chronic Bronchitis, COPD Cardiac: Yes (SVT) Chronic Edema/Swelling, Coronary Artery Disease, High Cholesterol, Hypertension Neurological: Yes Headaches /Migraines Reproductive Disorders: Yes (RIGHT BREAST BENING LUMP-REMOVED) Female Reproductive Disorders: Denies Sexually Transmitted Disease: No HIV/AIDS: No Genitourinary: No Gastrointestinal: Yes Gastroesophageal Reflux, Hiatal Hernia, Ulcer Musculoskeletal: Yes (CHRONIC GENERALIZED PAIN ) Arthritis Endocrine: Yes Hypothyroidsim, Lupus Loss of Vision: Denies Hearing Impairment: Denies Cancer: No Psychosocial: Yes Anxiety, Bipolar, Personality Disorder, Depression Integumentary: Yes Psoriasis Blood Disorders: Yes (ANEMIA POST OP) Family Medical History Arthritis 19 FATHER 19 MOTHER Cardiovascular disease 19 FATHER Cataracts 19 MOTHER Completed stroke 19 MOTHER Dysphasia 19 FATHER FH: cirrhosis 19 MOTHER Glaucoma 19 MOTHER Hypercholesterolemia 19 FATHER Hypertension 19 FATHER 19 MOTHER Myocardial infarction 19 FATHER Osteoporosis 19 MOTHER No Family History of: AIDS Abdominal aortic aneurysm Kaiden's disease Alcoholism Alzheimer's disease Aphasia Asthma Cancer of mouth Colon cancer Congenital disease Congenital heart disease Coronary thrombosis Cystic fibrosis Deafness or hearing loss Dementia Diabetes mellitus Drug abuse Fibrocystic disease of breast Gastroenteritis Headache disorder Infertility Kidney disease Neoplasm Not obtainable due to adoption Parkinson's disease Prostate cancer Psychosocial problem Respiratory disorder Seizure disorder Severe allergy Thyroid disease Tuberculosis Visual disorder GI Disease Sepsis Event Evaluation Height, Weight, BMI Height: 5'5.00" Weight: 244lbs. 9.6oz. 110.595107mj; 40.7 BMI Method:Stated Exam Exam Vital Signs Date Time Temp Pulse Resp B/P (MAP) Pulse Ox O2 Delivery O2 Flow Rate FiO2 03/06/18 06:37 97 Vapotherm 25.00 55 03/06/18 04:02 98.1 80 19 120/52 (74) 91 Vapotherm 50.00 15.00 03/06/18 02:44 94 Vapotherm 25.00 55 03/06/18 00:07 97.8 92 17 131/56 (81) 91 Vapotherm 50.00 15.00 03/05/18 22:30 95 Vapotherm 14.00 50 03/05/18 22:30 92 Vapotherm 10.00 50 9/25/18 20:49 92 95 03/05/18 19:00 97.4 92 26 140/82 (101) 94 Vapotherm 50.00 15.00 03/05/18 18:50 94 Vapotherm 10.00 50 03/05/18 18:36 98.4 94 22 132/94 (103) 94 Vapotherm 15.00 03/05/18 15:17 95 Nasal Cannula 4.00 03/05/18 14:40 98.4 94 22 137/86 (103) 97 Nasal Cannula 5.00 I & O 03/06/18 07:00 Intake Total 520 ml Output Total 700 ml Balance -180 ml Height & Weight Height: 5'5.00" Weight: 244lbs. 9.6oz. 110.555333xz; 40.7 BMI Method:Stated General Appearance: No Apparent Distress, WD/WN HEENT: Normal ENT Inspection Neck: Full Range of Motion, Normal Inspection Respiratory: No Accessory Muscle Use, No Respiratory Distress, Decreased Breath Sounds Cardiovascular: Regular Rate, Rhythm, No Murmur Capillary Refill: Less Than 3 Seconds Gastrointestinal: normal bowel sounds, non tender, soft Results Lab Laboratory Tests 03/05/18 14:40 03/06/18 06:05 Assessment/Plan Assessment/Plan -Acute on chronic respiratory failure -BiPAP increase to 18/5 with RR 14 -Repeat ABG in 1hr -Pt is a full code currently Pneumonia with sepsis -Change abx to vanco/zosyn -Fontaine cultures pending -IVF Hyperkalemia -Change IVF to NS without K+ -repeat chem around 1400 metabolic encephalopathy -Hold sedating meds -Monitor in ICU Transfer to ICU MERCEDES GARZA DO Mar 06, 2018 07:41
[2018-03-06] MEDS: NS IV 1000 ML 1,000 ML IV SCH ×2 (07:42→21:21)
[2018-03-06] MEDS ORDERED: PIPERACILLIN SODIUM/TAZOBACTAM 4.5 GM in NS (IVPB) 100 ML IV SCH (07:45)
--- NOTE | 2018-03-06 08:18 | Progress Note (SOAP) ---
Subjective Time Seen by a Provider: 08:16 Subjective/Events-last exam Patient's blood glasses looks worse. Patient has acute respiratory failure. Patient transferred to ICU. Patient put on BiPAP Objective Exam Vital Signs Date Time Temp Pulse Resp B/P (MAP) Pulse Ox O2 Delivery O2 Flow Rate FiO2 03/06/18 06:37 97 Vapotherm 25.00 55 03/06/18 04:02 98.1 80 19 120/52 (74) 91 Vapotherm 50.00 15.00 03/06/18 02:44 94 Vapotherm 25.00 55 03/06/18 00:07 97.8 92 17 131/56 (81) 91 Vapotherm 50.00 15.00 03/05/18 22:30 95 Vapotherm 14.00 50 03/05/18 22:30 92 Vapotherm 10.00 50 03/05/18 20:49 92 95 03/05/18 19:00 97.4 92 26 140/82 (101) 94 Vapotherm 50.00 15.00 03/05/18 18:50 94 Vapotherm 10.00 50 03/05/18 18:36 98.4 94 22 132/94 (103) 94 Vapotherm 15.00 03/05/18 15:17 95 Nasal Cannula 4.00 03/05/18 14:40 98.4 94 22 137/86 (103) 97 Nasal Cannula 5.00 I & O 03/06/18 07:00 Intake Total 520 ml Output Total 700 ml Balance -180 ml Capillary Refill : Less Than 3 Seconds General Appearance: No Apparent Distress, WD/WN HEENT: Normal ENT Inspection Neck: Normal Inspection, Non Tender Respiratory: No Accessory Muscle Use, No Respiratory Distress, Decreased Breath Sounds Cardiovascular: Regular Rate, Rhythm Gastrointestinal: non tender, soft Results Lab Laboratory Tests 03/05/18 14:40 03/06/18 06:05 Laboratory Tests 03/05/18 14:40: White Blood Count 16.8H, Red Blood Count 6.04H, Hemoglobin 14.2, Hematocrit 47, Mean Corpuscular Volume 78L, Mean Corpuscular Hemoglobin 24L, Mean Corpuscular Hemoglobin Concent 30L, Red Cell Distribution Width 21.0H, Platelet Count 459H, Mean Platelet Volume 10.0, Neutrophils (%) (Auto) 72, Lymphocytes (%) (Auto) 17 , Monocytes (%) (Auto) 9, Eosinophils (%) (Auto) 2, Basophils (%) (Auto) 0, Neutrophils # (Auto) 12.1H, Lymphocytes # (Auto) 2.8, Monocytes # (Auto) 1.4H, Eosinophils # (Auto) 0.4H, Basophils # (Auto) 0.1, Neutrophils % (Manual) 65, Lymphocytes % (Manual) 25, Monocytes % (Manual) 6, Eosinophils % (Manual) 4, Basophils % (Manual) 0, Band Neutrophils 0, Hypochromasia SLIGHT, Anisocytosis SLIGHT, Microcytosis SLIGHT, Erythrocyte Sedimentation Rate 1, Sodium Level 142 , Potassium Level 5.0, Chloride Level 103, Carbon Dioxide Level 31, Anion Gap 8 , Blood Urea Nitrogen 16, Creatinine 1.08, Estimat Glomerular Filtration Rate 52 , BUN/Creatinine Ratio 15, Glucose Level 116H, Calcium Level 9.4, Corrected Calcium 9.3, Total Bilirubin 0.3, Aspartate Amino Transf (AST/SGOT) 13, Alanine Aminotransferase (ALT/SGPT) 7, Alkaline Phosphatase 107, C-Reactive Protein High Sensitivity 1.25H, Total Protein 7.3, Albumin 4.1 03/05/18 15:20: Blood Gas Puncture Site RT RAD, Blood Gas Patient Temperature 97.4, Arterial Blood pH 7.30*L, Arterial Blood Partial Pressure CO2 69H, Arterial Blood Partial Pressure O2 114H, Arterial Blood HCO3 33H, Arterial Blood Total CO2 35.6H, Arterial Blood Oxygen Saturation 98, Arterial Blood Base Excess 7.0H, Merlin Test YES-POS, Blood Gas Ventilator Setting NO, Blood Gas Inspired Oxygen 5L 03/05/18 16:11: Urine Color AMBERH, Urine Clarity SLIGHTLY CLOUDY, Urine pH 5, Urine Specific [place] 1.030H, Urine Protein 2+H, Urine Glucose (UA) NEGATIVE, Urine Ketones 1+ H, Urine Nitrite NEGATIVE, Urine Bilirubin 1+H, Urine Urobilinogen 4H, Urine Leukocyte Esterase 1+H, Urine RBC (Auto) NEGATIVE, Urine RBC NONE, Urine WBC 5- 10H, Urine Squamous Epithelial Cells 25-50H, Urine Crystals PRESENTH, Urine Calcium Oxalate Crystals MODERATEH, Urine Bacteria FEWH, Urine Casts NONE, Urine Mucus LARGEH, Urine Culture Indicated YES 03/05/18 16:49: D-Dimer 0.44 03/06/18 06:05: White Blood Count 15.1H, Red Blood Count 5.26, Hemoglobin 12.5, Hematocrit 43, Mean Corpuscular Volume 81, Mean Corpuscular Hemoglobin 24L, Mean Corpuscular Hemoglobin Concent 29L, Red Cell Distribution Width 20.1H, Platelet Count 323, Mean Platelet Volume 10.3, Neutrophils (%) (Auto) 67, Lymphocytes (%) (Auto) 21 , Monocytes (%) (Auto) 9, Eosinophils (%) (Auto) 4, Basophils (%) (Auto) 0, Neutrophils # (Auto) 10.2H, Lymphocytes # (Auto) 3.1, Monocytes # (Auto) 1.3H, Eosinophils # (Auto) 0.6H, Basophils # (Auto) 0.0, Sodium Level 141, Potassium Level 5.3H, Chloride Level 105, Carbon Dioxide Level 29, Anion Gap 7, Blood Urea Nitrogen 19H, Creatinine 1.13, Estimat Glomerular Filtration Rate 49, BUN/ Creatinine Ratio 17, Glucose Level 94, Calcium Level 8.6, B-Type Natriuretic Peptide < 10.0 03/06/18 06:54: Blood Gas Puncture Site RIGHT BRACHIAL, Blood Gas Patient Temperature 98.1, Arterial Blood pH 7.26*L, Arterial Blood Partial Pressure CO2 72*H, Arterial Blood Partial Pressure O2 68L, Arterial Blood HCO3 31H, Arterial Blood Total CO2 33.1H, Arterial Blood Oxygen Saturation 91L, Arterial Blood Base Excess 4.2H , Merlin Test NO, Blood Gas Ventilator Setting NO, Blood Gas Inspired Oxygen 20L Assessment/Plan Assessment/Plan Assess & Plan/Chief Complaint Acute respiratory failure. COPD with acute exacerbation. Bipolar. Patient on BiPAP now Clinical Quality Measures Admission Status Admission Dx COPD with acute exacerbation. UTI. Pneumonia. Leukocytosis. Hypertension. Hyperlipidemia. Osteoarthritis arthritis. Bipolar DVT/VTE Risk/Contraindication: Risk Factor Score Per Nursin RFS Level Per Nursing on Admit: 4+=Very High JOCELYNE MEI DO Mar 06, 2018 08:18
[2018-03-06] MEDS ORDERED: NON-FORMULARY MEDICATION 1 EA EA (Polyethylene Glycol 3350 (Miralax) 17 GM) PO SCH (09:00)
[2018-03-06] MEDS ORDERED: NON-FORMULARY MEDICATION 1 EA EA (Glycopyrrolate/Formoterol Fum (Bevespi Aerosphere Inhale IH SCH (09:00)
[2018-03-06] MEDS ORDERED: VANCOMYCIN INJECTION 2,500 MG in NS IV 500 ML 500 ML IV NR (09:00)
[2018-03-06] MEDS ORDERED: OLANZapine 5 MG (ZyPREXA) TAB PO SCH (09:00)
[2018-03-06] MEDS ORDERED: NON-FORMULARY MEDICATION 1 EA EA (Meloxicam 15 MG) PO SCH (09:00)
[2018-03-06] MEDS ORDERED: MELOXICAM 7.5 MG (MOBIC) TABLET PO SCH (09:00)
[2018-03-06] MEDS ORDERED: VERAPAMIL HCL 180 MG PO SCH (09:00)
[2018-03-06] MEDS ORDERED: NON-FORMULARY MEDICATION 1 EA EA (Metoprolol Succinate (Toprol Xl) 100 MG) PO SCH (09:00)
[2018-03-06] MEDS: CYCLOBENZAPRINE 10 MG (FLEXERIL) TAB PO SCH (09:23)
--- NOTE | 2018-03-06 09:25 | Diagnostic Imaging Report ---
INDICATION: COPD exacerbation. COMPARISON: 03/05/2018 FINDINGS: Right apical calcified pleural plaques chronic. Some patchy interstitial opacities having developed in the lung bases which may be infiltrate or atelectasis. There is background COPD most notably in the apices unchanged. No effusion or pneumothorax. IMPRESSION: Increased basilar interstitial opacities infiltrate versus atelectasis, remaining findings stable and chronic. Dictated by: Dictated on workstation # [id number]
[2018-03-06] MEDS ORDERED: PIPERACILLIN/TAZO 4.5 GM/NS 100 ML IV NR ×2 (09:26)
[2018-03-06] MEDS: NICOTINE 14 MG (NICODERM) PATCH TD SCH (09:51)
[2018-03-06] MEDS: meTOprolol SUCCINATE 100 MG (TOPROL XL) TAB PO SCH (09:51)
[2018-03-06] MEDS: LORATADINE (CLARITIN) 10 MG TAB PO SCH (09:51)
[2018-03-06] MEDS: VERAPAMIL SR 180 MG (CALAN SR) TAB PO SCH (09:51)
[2018-03-06] MEDS: FAMOTIDINE 20 MG (PEPCID) TABLET PO SCH ×2 (09:51→21:21)
[2018-03-06] MEDS: NICOTINE PATCH REMOVAL TP SCH (09:51)
[2018-03-06] MEDS: VITAMIN D3 5,000 UNITS (CHOLECALCIFEROL ) CAPSULE PO SCH (09:51)
[2018-03-06] MEDS: ENOXAPARIN 40 MG/0.4 ML (LOVENOX) SYR SC SCH ×2 (11:02→21:21)
[2018-03-06 11:03] LABS: BILIRUBIN,URINE NEGATIVE (NEGATIVE); CLARITY,URINE CLEAR; COLOR,URINE YELLOW; GLUCOSE, URINE (UA) NEGATIVE (NEGATIVE); KETONES,URINE NEGATIVE (NEGATIVE); LEUKOCYTE ESTERASE ,URINE NEGATIVE (NEGATIVE); NITRITE,URINE NEGATIVE (NEGATIVE); PH,URINE 5 (5-9); PROTEIN,URINE NEGATIVE (NEGATIVE); UROBILINOGEN,URINE NORMAL (NORMAL)
[2018-03-06 11:10] LABS: BACTERIA,URINE TRACE /HPF; HYALINE CASTS, URINE 0-2 /LPF; WBC,URINE RARE /HPF
[2018-03-06 11:22] LABS: ABG BASE EXCESS 3.9 MMOL/L (-2.5-2.5); ABG OXYGEN SATURATION 93 % (94-100); ABG PO2 82 MMHG (79-93); ABG TCO2 32.4 MMOL/L (21.0-31.0)
[2018-03-06 11:29] LABS: ABG PCO2 71 MMHG (35-45); ABG PH 7.26 (7.37-7.43)
[2018-03-06 11:30] LABS: INSPIRED O2 35%; PATIENT TEMP 100.3; VENTILATOR NO
[2018-03-06 14:25] LABS: RED BLOOD COUNT 5.03 10^6/uL (4.35-5.85); RED CELL DISTRIBUTION WIDTH 19.8 % (10.0-14.5); WHITE BLOOD COUNT 14.9 10^3/uL (4.3-11.0)
[2018-03-06 14:42] LABS: ALANINE AMINOTRANSFERASE 6 U/L (0-55); ALBUMIN 3.5 GM/DL (3.2-4.5); ALKALINE PHOSPHATASE 92 U/L (40-136); BILIRUBIN,TOTAL 0.5 MG/DL (0.1-1.0); BUN/CREATININE RATIO 18; CALCIUM 8.7 MG/DL (8.5-10.1); CARBON DIOXIDE 29 MMOL/L (21-32); CHLORIDE 106 MMOL/L (98-107); CREATININE SERUM 0.94 MG/DL (0.60-1.30); GFR ESTIMATED > 60; GLUCOSE 84 MG/DL (70-105); MAGNESIUM 2.2 MG/DL (1.8-2.4); PHOSPHORUS 3.6 MG/DL (2.3-4.7); POTASSIUM 5.6 MMOL/L (3.6-5.0); SODIUM 141 MMOL/L (135-145); TOTAL PROTEIN 5.9 GM/DL (6.4-8.2)
[2018-03-06 15:18] LABS: ABG BASE EXCESS 3.5 MMOL/L (-2.5-2.5); ABG OXYGEN SATURATION 94 % (94-100); ABG PCO2 66 MMHG (35-45); ABG PO2 78 MMHG (79-93); ABG TCO2 31.8 MMOL/L (21.0-31.0)
[2018-03-06 15:22] LABS: ABG PH 7.28 (7.37-7.43); ALLENS TEST YES-POS; PATIENT TEMP 98.8; VENTILATOR NO
[2018-03-06 15:23] LABS: INSPIRED O2 35% BIPAP 18/5
[2018-03-06] MEDS ORDERED: cefTRIAXone 1 GM/NS 50 ML IVPB IV SCH ×2 (16:30)
[2018-03-06] MEDS: PIPERACILLIN SODIUM/TAZOBACTAM 4.5 GM in NS (IVPB) 100 ML IV SCH (17:47)
[2018-03-06] MEDS ORDERED: AZITHROMYCIN 250 MG TAB (ZITHROMAX) PO SCH (21:00)
[2018-03-06] MEDS ORDERED: OLANZAPINE 40 MG PO SCH (21:00)
[2018-03-06] MEDS ORDERED: DONEPEZIL HCL 10 MG PO SCH (21:00)
[2018-03-06] MEDS ORDERED: VANCOMYCIN 1500 MG/NS 500 ML IVPB IV SCH ×2 (21:00)
[2018-03-06] MEDS: POLYETHYLENE GLYCOL 17 GM (MIRALAX) PACK PO SCH (21:21)
[2018-03-06] MEDS: ATORVASTATIN 10 MG (LIPITOR) TABLET PO SCH (21:21)
[2018-03-06] MEDS: DONEPEZIL 10 MG (ARICEPT) TAB PO SCH (21:21)
[2018-03-07] VITALS (31 sets, daily range): BP systolic 100–183; BP diastolic 51–90
[2018-03-07] MEDS: PIPERACILLIN SODIUM/TAZOBACTAM 4.5 GM in NS (IVPB) 100 ML IV SCH ×3 (00:20→16:32)
[2018-03-07] MEDS: RT-ALBUTEROL/IPRATROPIUM 3 ML (DUONEB) VIAL INH SCH ×5 (01:05→20:12)
[2018-03-07] MEDS: NS IV 1000 ML 1,000 ML IV SCH ×2 (02:05→14:33)
[2018-03-07 03:21] LABS: ABG BASE EXCESS 2.8 MMOL/L (-2.5-2.5); ABG OXYGEN SATURATION 97 % (94-100); ABG PCO2 62 MMHG (35-45); ABG PO2 95 MMHG (79-93); ABG TCO2 30.7 MMOL/L (21.0-31.0)
[2018-03-07 03:22] LABS: ALLENS TEST YES-POS; INSPIRED O2 35% BIPAP; PATIENT TEMP 98.7; VENTILATOR NO
[2018-03-07 03:23] LABS: ABG PH 7.29 (7.37-7.43)
[2018-03-07 03:47] LABS: BASOPHILS # (AUTO) 0.1 10^3/uL (0.0-0.1); BASOPHILS % (AUTO) 0 % (0-10); EOSINOPHILS # (AUTO) 0.6 10^3/uL (0.0-0.3); EOSINOPHILS % (AUTO) 4 % (0-10); HEMATOCRIT 39 % (35-52); HEMOGLOBIN 11.5 G/DL (11.5-16.0); LYMPHOCYTES # (AUTO) 2.8 X 10^3 (1.0-4.0); LYMPHOCYTES % (AUTO) 19 % (12-44); MEAN CORPUSCULAR HEMOGLOBIN 24 PG (25-34); MEAN CORPUSCULAR HGB CONC 29 G/DL (32-36); MEAN CORPUSCULAR VOLUME 81 FL (80-99); MEAN PLATELET VOLUME 9.8 FL (7.4-10.4); MONOCYTES # (AUTO) 1.5 X 10^3 (0.0-1.0); MONOCYTES % (AUTO) 10 % (0-12); NEUTROPHILS # (AUTO) 9.6 X 10^3 (1.8-7.8); NEUTROPHILS % (AUTO) 66 % (42-75); PLATELET COUNT 339 10^3/uL (130-400); RED BLOOD COUNT 4.89 10^6/uL (4.35-5.85); WHITE BLOOD COUNT 14.5 10^3/uL (4.3-11.0)
[2018-03-07 04:10] LABS: CALCIUM 8.8 MG/DL (8.5-10.1); MAGNESIUM 2.1 MG/DL (1.8-2.4); PHOSPHORUS 3.6 MG/DL (2.3-4.7); POTASSIUM 4.7 MMOL/L (3.6-5.0)
[2018-03-07] MEDS: POTASSIUM CL 10MEQ/50ML IVPB 50 ML IV SCH (05:20)
[2018-03-07] MEDS: KCL 20 MEQ TAB (K-DUR) PO SCH (05:20)
[2018-03-07] MEDS: MAGNESIUM 1 GM/100 ML IVPB 100 ML IV SCH (05:20)
--- NOTE | 2018-03-07 06:19 | Pulmonary Progress Note ---
Subjective Time Seen by a Provider: 08:33 Subjective/Events-last exam Pt has been struggling with bipap through the night. Daughter is now at bedside. Sepsis Event Evaluation Height, Weight, BMI Height: 5'5.00" Weight: 244lbs. 9.6oz. 110.780253xx; 40.7 BMI Method:Stated Exam Exam Vital Signs Date Time Temp Pulse Resp B/P (MAP) Pulse Ox O2 Delivery O2 Flow Rate FiO2 03/07/18 04:00 93 NIV Bilevel 35 03/07/18 03:58 73 16 97 35.00 03/07/18 02:00 86 28 136/69 (91) 92 Vapotherm 35.00 15.00 03/07/18 01:30 82 03/07/18 01:06 86 23 96 35.00 03/07/18 01:00 84 16 132/74 (93) 98 Vapotherm 35.00 15.00 03/07/18 00:04 84 16 121/79 (93) 93 Vapotherm 35.00 15.00 03/07/18 00:00 94 NIV Bilevel 35 03/06/18 23:30 78 20 98 35.00 03/06/18 23:00 76 14 118/74 (89) 95 Vapotherm 35.00 15.00 03/06/18 22:00 85 18 128/83 (98) 97 Vapotherm 35.00 15.00 03/06/18 21:48 80 12 132/69 (90) 95 Vapotherm 35.00 15.00 03/06/18 21:25 80 18 98 35.00 03/06/18 20:00 94 NIV Bilevel 35 03/06/18 19:46 75 93 35.00 03/06/18 19:44 98.0 79 22 107/58 (74) 94 Vapotherm 35.00 03/06/18 19:00 78 03/06/18 19:00 77 30 94 Vapotherm 35.00 15.00 03/06/18 18:24 74 22 35.00 03/06/18 18:00 73 22 92 Vapotherm 35.00 15.00 03/06/18 17:00 71 29 111/71 (84) 95 Vapotherm 35.00 15.00 03/06/18 16:00 77 24 97 Vapotherm 35.00 15.00 03/06/18 16:00 NIV Bilevel 35 03/06/18 15:40 74 35.00 03/06/18 15:00 75 24 111/71 (84) 97 Vapotherm 35.00 15.00 03/06/18 14:12 73 96 35.00 03/06/18 14:00 72 25 124/76 (92) 92 Vapotherm 35.00 15.00 03/06/18 13:00 71 03/06/18 13:00 70 25 106/84 (91) 94 Vapotherm 35.00 15.00 03/06/18 12:09 74 94 35.00 03/06/18 12:00 76 28 110/80 (90) 94 Vapotherm 35.00 15.00 03/06/18 11:22 79 94 35.00 03/06/18 11:09 NIV Bilevel 35 03/06/18 11:00 79 31 103/79 (87) 94 Vapotherm 35.00 15.00 03/06/18 10:00 72 23 120/72 (88) 94 Vapotherm 35.00 15.00 03/06/18 09:00 79 28 117/82 (94) 94 Vapotherm 35.00 15.00 03/06/18 08:30 80 26 129/88 (102) 94 Vapotherm 35.00 15.00 03/06/18 08:14 80 97 35.00 03/06/18 08:00 NIV Bilevel 35 03/06/18 06:37 97 Vapotherm 25.00 55 I & O 03/07/18 07:00 Intake Total 1050 ml Output Total 1875 ml Balance -825 ml Height & Weight Height: 5'5.00" Weight: 244lbs. 9.6oz. 110.320233dy; 40.7 BMI Method:Stated General Appearance: WD/WN, Anxious, Moderate Distress, Obese HEENT: Normal ENT Inspection Neck: Full Range of Motion, Normal Inspection Respiratory: No Accessory Muscle Use, No Respiratory Distress, Decreased Breath Sounds Cardiovascular: Regular Rate, Rhythm, No Murmur Capillary Refill: Less Than 3 Seconds Gastrointestinal: normal bowel sounds, non tender, soft Neurologic/Psychiatric: Alert Skin: Normal Color, Warm/Dry Lymphatic: No Adenopathy Results Lab Laboratory Tests 03/05/18 14:40 03/06/18 06:05 03/06/18 14:18 03/07/18 03:31 Assessment/Plan Assessment/Plan -Acute on chronic respiratory failure -BiPAP 26/10 with RR 14 -PT refused intubation last night however daughter is now at bedside and has convinced patient to accept intubation mechanical ventilation. ABG is not much improved and patient has been fighting to get BiPAP mask off. -I will have anesthesia intubate patient this AM for persistent respiratory failure while on BiPAP. Pneumonia with sepsis -vanco/zosyn -Fontaine cultures pending -IVF metabolic encephalopathy -Monitor in ICU I explained to daughter risk and benefits of intubation and mechanical ventilation. All questions answered while RN was at bedside. Will also discuss with Dr. Ward. total time spent with patient medical staff regarding patients care is 60min. Critical Care: Critically Ill Patient Time spent with patient (mins): 60 MERCEDES GARZA DO Mar 07, 2018 06:19
[2018-03-07] MEDS ORDERED: morphine INJ 4 MG/ML 1 ML (VIAL/SYRINGE) ONE (06:35)
[2018-03-07] MEDS ORDERED: NS IV 1000 ML 1,000 ML IV ONE (06:45)
[2018-03-07] MEDS ORDERED: morphine INJ 4 MG/ML 1 ML (VIAL/SYRINGE) IVP NR (06:45)
[2018-03-07] MEDS ORDERED: PROPOFOL DRIP (ICU) 100 ML IV ONE ×3 (07:15→15:26)
[2018-03-07] MEDS ORDERED: proPOfol 200 MG/20 ML (DIPRIVAN) VIAL IV ONE (07:15)
--- NOTE | 2018-03-07 07:47 | Diagnostic Imaging Report ---
INDICATION: COPD exacerbation. COMPARISON: 03/06/2018. FINDINGS: Single frontal radiographic view of chest was obtained and demonstrates patchy opacities within the bilateral lower lung ambrose. Overall, aeration is stable. There is no large effusion or pneumothorax. Cardiac silhouette and pulmonary vasculature is within normal limits. Bony structures show no acute interval change. IMPRESSION: 1. Stable exam of the chest showing probable patchy bibasilar atelectasis. Some component of infiltrate is not entirely excluded. Followup may be of benefit. Dictated by: Dictated on workstation # [id number]
--- NOTE | 2018-03-07 07:58 | Diagnostic Imaging Report ---
Respiratory failure. 0743 hours Comparison is made to study of earlier in the day. Bilateral air trapping persists. There has been placement of endotracheal tube with tip just below the thoracic inlet. Nasogastric tube passes below the diaphragm. Atelectasis and/or pneumonitis persists bilaterally. Dense calcification projects over the right apex. Impression: Overall, there has been no significant change or evidence of complication post intubation and nasogastric tube passage. Dictated by: Dictated on workstation # [id number]
[2018-03-07] MEDS ORDERED: TROUGH ORDER-PHARMACY XX NR ×2 (08:00→18:00)
--- NOTE | 2018-03-07 08:08 | Progress Note (SOAP) ---
Subjective Time Seen by a Provider: 08:07 Subjective/Events-last exam Patient intubated this morning. Patient on vent Objective Exam Vital Signs Date Time Temp Pulse Resp B/P (MAP) Pulse Ox O2 Delivery O2 Flow Rate FiO2 03/07/18 06:38 89 24 93 35.00 03/07/18 06:00 87 14 153/78 (103) 93 Vapotherm 35.00 15.00 03/07/18 05:00 76 20 141/68 (92) 90 Vapotherm 35.00 15.00 03/07/18 04:00 93 NIV Bilevel 35 03/07/18 04:00 75 20 140/82 (101) 96 Vapotherm 35.00 15.00 03/07/18 03:58 73 16 97 35.00 03/07/18 02:00 86 28 136/69 (91) 92 Vapotherm 35.00 15.00 03/07/18 01:30 82 03/07/18 01:06 86 23 96 35.00 03/07/18 01:00 84 16 132/74 (93) 98 Vapotherm 35.00 15.00 03/07/18 00:04 84 16 121/79 (93) 93 Vapotherm 35.00 15.00 03/07/18 00:00 94 NIV Bilevel 35 03/06/18 23:30 78 20 98 35.00 03/06/18 23:00 76 14 118/74 (89) 95 Vapotherm 35.00 15.00 03/06/18 22:00 85 18 128/83 (98) 97 Vapotherm 35.00 15.00 03/06/18 21:48 80 12 132/69 (90) 95 Vapotherm 35.00 15.00 03/06/18 21:25 80 18 98 35.00 03/06/18 20:00 94 NIV Bilevel 35 03/06/18 19:46 75 93 35.00 03/06/18 19:44 98.0 79 22 107/58 (74) 94 Vapotherm 35.00 03/06/18 19:00 78 03/06/18 19:00 77 30 94 Vapotherm 35.00 15.00 03/06/18 18:24 74 22 35.00 03/06/18 18:00 73 22 92 Vapotherm 35.00 15.00 03/06/18 17:00 71 29 111/71 (84) 95 Vapotherm 35.00 15.00 03/06/18 16:00 77 24 97 Vapotherm 35.00 15.00 03/06/18 16:00 NIV Bilevel 35 03/06/18 15:40 74 35.00 03/06/18 15:00 75 24 111/71 (84) 97 Vapotherm 35.00 15.00 03/06/18 14:12 73 96 35.00 03/06/18 14:00 72 25 124/76 (92) 92 Vapotherm 35.00 15.00 03/06/18 13:00 71 03/06/18 13:00 70 25 106/84 (91) 94 Vapotherm 35.00 15.00 03/06/18 12:09 74 94 35.00 03/06/18 12:00 76 28 110/80 (90) 94 Vapotherm 35.00 15.00 03/06/18 11:22 79 94 35.00 03/06/18 11:09 NIV Bilevel 35 03/06/18 11:00 79 31 103/79 (87) 94 Vapotherm 35.00 15.00 03/06/18 10:00 72 23 120/72 (88) 94 Vapotherm 35.00 15.00 03/06/18 09:00 79 28 117/82 (94) 94 Vapotherm 35.00 15.00 03/06/18 08:30 80 26 129/88 (102) 94 Vapotherm 35.00 15.00 03/06/18 08:14 80 97 35.00 I & O 03/07/18 07:00 Intake Total 1050 ml Output Total 1875 ml Balance -825 ml Capillary Refill : Less Than 3 Seconds General Appearance: WD/WN Neck: Normal Inspection Respiratory: Other (Patient on ventilator) Cardiovascular: Regular Rate, Rhythm Gastrointestinal: non tender, soft Results Lab Laboratory Tests 03/06/18 09:30: Urine Color YELLOW, Urine Clarity CLEAR, Urine pH 5, Urine Specific Leon 1.020, Urine Protein NEGATIVE, Urine Glucose (UA) NEGATIVE, Urine Ketones NEGATIVE, Urine Nitrite NEGATIVE, Urine Bilirubin NEGATIVE, Urine Urobilinogen NORMAL, Urine Leukocyte Esterase NEGATIVE, Urine RBC (Auto) NEGATIVE, Urine RBC NONE, Urine WBC RARE, Urine Squamous Epithelial Cells 2-5, Urine Crystals NONE, Urine Bacteria TRACE, Urine Casts PRESENT, Urine Hyaline Casts 0-2H, Urine Mucus SMALLH, Urine Culture Indicated NO 03/06/18 11:10: Blood Gas Puncture Site RB, Blood Gas Patient Temperature 100.3, Arterial Blood pH 7.26*L, Arterial Blood Partial Pressure CO2 71*H, Arterial Blood Partial Pressure O2 82, Arterial Blood HCO3 30H, Arterial Blood Total CO2 32.4H, Arterial Blood Oxygen Saturation 93L, Arterial Blood Base Excess 3.9H, Merlin Test NA, Blood Gas Ventilator Setting NO, Blood Gas Inspired Oxygen 35% 03/06/18 14:18: White Blood Count 14.9H, Red Blood Count 5.03, Hemoglobin 12.0, Hematocrit 41, Mean Corpuscular Volume 81, Mean Corpuscular Hemoglobin 24L, Mean Corpuscular Hemoglobin Concent 29L, Red Cell Distribution Width 19.8H, Platelet Count 351, Mean Platelet Volume 10.0, Sodium Level 141, Potassium Level 5.6H, Chloride Level 106, Carbon Dioxide Level 29, Anion Gap 6, Blood Urea Nitrogen 17, Creatinine 0.94, Estimat Glomerular Filtration Rate > 60, BUN/Creatinine Ratio 18, Glucose Level 84, Calcium Level 8.7, Corrected Calcium 9.1, Phosphorus Level 3.6, Magnesium Level 2.2, Total Bilirubin 0.5, Aspartate Amino Transf (AST /SGOT) 8, Alanine Aminotransferase (ALT/SGPT) 6, Alkaline Phosphatase 92, Total Protein 5.9L, Albumin 3.5 03/06/18 15:10: Blood Gas Puncture Site L RAD, Blood Gas Patient Temperature 98.8, Arterial Blood pH 7.28*L, Arterial Blood Partial Pressure CO2 66H, Arterial Blood Partial Pressure O2 78L, Arterial Blood HCO3 30H, Arterial Blood Total CO2 31.8H , Arterial Blood Oxygen Saturation 94, Arterial Blood Base Excess 3.5H, Merlin Test YES-POS, Blood Gas Ventilator Setting NO, Blood Gas Inspired Oxygen 35% BIPAP 26/1003/07/18 03:15: Blood Gas Puncture Site R RAD, Blood Gas Patient Temperature 98.7, Arterial Blood pH 7.29*L, Arterial Blood Partial Pressure CO2 62H, Arterial Blood Partial Pressure O2 95H, Arterial Blood HCO3 29H, Arterial Blood Total CO2 30.7 , Arterial Blood Oxygen Saturation 97, Arterial Blood Base Excess 2.8H, Merlin Test YES-POS, Blood Gas Ventilator Setting NO, Blood Gas Inspired Oxygen 35% BIPAP 03/07/18 03:31: White Blood Count 14.5H, Red Blood Count 4.89, Hemoglobin 11.5, Hematocrit 39, Mean Corpuscular Volume 81, Mean Corpuscular Hemoglobin 24L, Mean Corpuscular Hemoglobin Concent 29L, Red Cell Distribution Width 20.0H, Platelet Count 339, Mean Platelet Volume 9.8, Neutrophils (%) (Auto) 66, Lymphocytes (%) (Auto) 19, Monocytes (%) (Auto) 10, Eosinophils (%) (Auto) 4, Basophils (%) (Auto) 0, Neutrophils # (Auto) 9.6H, Lymphocytes # (Auto) 2.8, Monocytes # (Auto) 1.5H, Eosinophils # (Auto) 0.6H, Basophils # (Auto) 0.1, Sodium Level 142, Potassium Level 4.7, Chloride Level 109H, Carbon Dioxide Level 25, Anion Gap 8, Blood Urea Nitrogen 19H, Creatinine 1.00, Estimat Glomerular Filtration Rate 57, BUN/ Creatinine Ratio 19, Glucose Level 80, Calcium Level 8.8, Phosphorus Level 3.6, Magnesium Level 2.1 Microbiology 03/05/18 Urine Culture - Final, Complete NO GROWTH Assessment/Plan Assessment/Plan Assess & Plan/Chief Complaint Acute respiratory failure. COPD with acute exacerbation. Bipolar. Patient on BiPAP now. . 03/07/18. Acute respiratory failure. Patient on ventilator. Bipolar Clinical Quality Measures Admission Status Admission Dx COPD with acute exacerbation. UTI. Pneumonia. Leukocytosis. Hypertension. Hyperlipidemia. Osteoarthritis arthritis. Bipolar DVT/VTE Risk/Contraindication: Risk Factor Score Per Nursin RFS Level Per Nursing on Admit: 4+=Very High JOCELYNE MEI DO Mar 07, 2018 08:08
--- NOTE | 2018-03-07 08:58 | Anesthesia-Procedure Note ---
Procedures/Interventions Procedure Start/Stop/Diagnosis Date of Procedure: Mar 07, 2018 Start Time: 07:11 Referring Physician: Antonella Preprocedural Diagnosis: Respiratory Distress Stop Time: 07:45 Intubation Reason Intubation/Diagnosis: Respiratory Distress RSI: Yes Vital Signs Pre-procedure 137/75, SaO2 > 90%, HR 80s 100% pre-Ox, [id number]: Yes Intubation Method: orotracheal Videoscope used: Yes (Leon with Xblade) Grade View: 1 Medications: Etomidate (20mg), Succinylcholine (100mg), Versed (2mg) Mask Ventilation: positive Positive End Tide CO2: Yes Breath Sounds after Intubation: bilateral-equal ETT Securred @ (cm): 22 Intubated with ease: Yes Intubation Complications: no complications Post Intubation Xray-done: Yes Post Procedure After intubation, I noted patient was restless and sedation was just being started. 30 mg Rocuronium given IV to assist with art line placement and vent tolerance until sedation level adequate. Care turned over to: Kelley Stiles RN Arterial Line Arterial Line Catheter: 20G Type: Radial (right) Location: Right Procedure: prepped, draped in sterile fashion, good wave-form was obtained, patient tolerated procedure well, no immediate complications, post procedure dressing applied (large opsite) CIPRIANO MAY CRNA Mar 07, 2018 08:58
[2018-03-07 09:07] LABS: ABG BASE EXCESS 0.5 MMOL/L (-2.5-2.5); ABG OXYGEN SATURATION 95 % (94-100); ABG PCO2 61 MMHG (35-45); ABG PO2 78 MMHG (79-93); ABG TCO2 28.8 MMOL/L (21.0-31.0)
[2018-03-07 09:08] LABS: ABG PH 7.27 (7.37-7.43); ALLENS TEST YES-POS; INSPIRED O2 60; PATIENT TEMP 97.6; VENTILATOR NO
[2018-03-07] MEDS: NICOTINE 14 MG (NICODERM) PATCH TD SCH (10:38)
[2018-03-07] MEDS: ENOXAPARIN 40 MG/0.4 ML (LOVENOX) SYR SC SCH ×2 (10:38→22:29)
[2018-03-07] MEDS: meTOprolol SUCCINATE 100 MG (TOPROL XL) TAB PO SCH (10:38)
[2018-03-07] MEDS: LORATADINE (CLARITIN) 10 MG TAB PO SCH (10:38)
[2018-03-07] MEDS: FAMOTIDINE 20 MG (PEPCID) TABLET PO SCH ×2 (10:38→22:28)
[2018-03-07] MEDS: NICOTINE PATCH REMOVAL TP SCH (10:39)
[2018-03-07] MEDS: VITAMIN D3 5,000 UNITS (CHOLECALCIFEROL ) CAPSULE PO SCH (10:39)
[2018-03-07] MEDS ORDERED: MIDAZOLAM 5 MG/5 ML (VERSED) VIAL IJ ONE (14:21)
[2018-03-07] MEDS ORDERED: ROCURONIUM 50 MG/5 ML (ZEMURON) VIAL IV ONE (14:21)
[2018-03-07] MEDS ORDERED: SUCCINYLCHOLINE INJ 100 MG/5 ML SYR INJ ONE (14:21)
[2018-03-07] MEDS ORDERED: ETOMIDATE IV SOLN 20 MG/10 ML VIAL IV ONE (14:21)
[2018-03-07] MEDS: PROPOFOL DRIP (ICU) 100 ML IV SCH ×2 (15:39→19:36)
[2018-03-07] MEDS: DONEPEZIL 10 MG (ARICEPT) TAB PO SCH (22:28)
[2018-03-07] MEDS: POLYETHYLENE GLYCOL 17 GM (MIRALAX) PACK PO SCH (22:28)
[2018-03-07] MEDS: ATORVASTATIN 10 MG (LIPITOR) TABLET PO SCH (22:28)
[2018-03-08] VITALS (36 sets, daily range): BP systolic 91–192; BP diastolic 45–94
[2018-03-08] MEDS: PIPERACILLIN SODIUM/TAZOBACTAM 4.5 GM in NS (IVPB) 100 ML IV SCH ×4 (00:07→23:38)
[2018-03-08] MEDS: MAGNESIUM 1 GM/100 ML IVPB 100 ML IV SCH (00:08)
[2018-03-08] MEDS: POTASSIUM CL 10MEQ/50ML IVPB 50 ML IV SCH (00:08)
[2018-03-08] MEDS: PROPOFOL DRIP (ICU) 100 ML IV SCH ×6 (00:08→22:26)
[2018-03-08] MEDS: KCL 20 MEQ TAB (K-DUR) PO SCH (00:09)
[2018-03-08] MEDS: RT-ALBUTEROL/IPRATROPIUM 3 ML (DUONEB) VIAL INH SCH ×7 (01:45→22:26)
[2018-03-08 03:17] LABS: ABG BASE EXCESS 0.7 MMOL/L (-2.5-2.5); ABG OXYGEN SATURATION 93 % (94-100); ABG PCO2 51 MMHG (35-45); ABG PO2 68 MMHG (79-93); ABG TCO2 27.6 MMOL/L (21.0-31.0); BASOPHILS # (AUTO) 0.1 10^3/uL (0.0-0.1); BASOPHILS % (AUTO) 0 % (0-10); EOSINOPHILS # (AUTO) 0.6 10^3/uL (0.0-0.3); EOSINOPHILS % (AUTO) 5 % (0-10); HEMATOCRIT 37 % (35-52); HEMOGLOBIN 11.2 G/DL (11.5-16.0); LYMPHOCYTES # (AUTO) 2.3 X 10^3 (1.0-4.0); LYMPHOCYTES % (AUTO) 18 % (12-44); MEAN CORPUSCULAR HEMOGLOBIN 24 PG (25-34); MEAN CORPUSCULAR HGB CONC 30 G/DL (32-36); MEAN CORPUSCULAR VOLUME 78 FL (80-99); MEAN PLATELET VOLUME 9.9 FL (7.4-10.4); MONOCYTES % (AUTO) 8 % (0-12); NEUTROPHILS # (AUTO) 9.2 X 10^3 (1.8-7.8); NEUTROPHILS % (AUTO) 70 % (42-75); PLATELET COUNT 346 10^3/uL (130-400); RED BLOOD COUNT 4.74 10^6/uL (4.35-5.85); RED CELL DISTRIBUTION WIDTH 19.8 % (10.0-14.5); WHITE BLOOD COUNT 13.2 10^3/uL (4.3-11.0)
[2018-03-08 03:18] LABS: ALLENS TEST ART LINE; INSPIRED O2 45% FIO2; PATIENT TEMP 97.6; VENTILATOR YES
[2018-03-08 03:19] LABS: ABG PH 7.33 (7.37-7.43)
[2018-03-08 03:48] LABS: CALCIUM 8.5 MG/DL (8.5-10.1); CREATININE SERUM 1.04 MG/DL (0.60-1.30); PHOSPHORUS 3.5 MG/DL (2.3-4.7); POTASSIUM 4.2 MMOL/L (3.6-5.0)
[2018-03-08] MEDS: NS IV 1000 ML 1,000 ML IV SCH ×2 (05:00→17:40)
[2018-03-08] MEDS ORDERED: TROUGH ORDER-PHARMACY XX NR (06:00)
--- NOTE | 2018-03-08 06:18 | Progress Note (SOAP) ---
Subjective Time Seen by a Provider: 06:02 Subjective/Events-last exam Patient on ventilator resting comfortably. Arterial blood gases better today. Spoke to daughter Objective Exam Vital Signs Date Time Temp Pulse Resp B/P (MAP) Pulse Ox O2 Delivery O2 Flow Rate FiO2 03/08/18 06:00 85 17 100/63 (75) 97 Mechanical Ventilator 60.00 03/08/18 05:00 93 17 91/45 (60) 95 Mechanical Ventilator 60.00 03/08/18 04:24 96 18 95 45 03/08/18 04:00 101 17 117/55 (75) 96 Mechanical Ventilator 60.00 03/08/18 04:00 94 Mechanical Ventilator 45 03/08/18 03:25 97.6 87 18 100/60 95 Mechanical Ventilator 45.00 03/08/18 03:00 104 18 144/64 (90) 95 Mechanical Ventilator 60.00 03/08/18 02:00 105 17 122/59 (80) 94 Mechanical Ventilator 60.00 03/08/18 01:46 87 18 95 50 03/08/18 01:00 107 03/08/18 01:00 98 18 100/63 (75) 95 Mechanical Ventilator 60.00 03/08/18 00:08 97.6 92 17 100/63 95 Mechanical Ventilator 50.00 03/08/18 00:00 98 Mechanical Ventilator 50 03/08/18 00:00 112 24 118/61 (80) 93 Mechanical Ventilator 60.00 03/07/18 23:00 92 17 100/63 (75) 95 Mechanical Ventilator 60.00 03/07/18 22:00 98 17 144/62 (89) 94 Mechanical Ventilator 60.00 03/07/18 21:00 85 17 144/62 (89) 93 Mechanical Ventilator 60.00 03/07/18 20:12 84 18 93 50 03/07/18 20:00 80 17 128/59 (82) 94 Mechanical Ventilator 60.00 03/07/18 20:00 98 Mechanical Ventilator 45 03/07/18 19:36 97.6 77 17 134/65 99 Mechanical Ventilator 60.00 03/07/18 19:00 80 17 130/63 (85) 99 Mechanical Ventilator 60.00 03/07/18 19:00 78 03/07/18 18:00 77 17 134/65 (88) 99 Mechanical Ventilator 60.00 03/07/18 17:00 79 18 152/71 (98) 99 Mechanical Ventilator 60.00 03/07/18 16:00 85 17 114/51 (72) 97 Mechanical Ventilator 60.00 03/07/18 16:00 97.6 03/07/18 16:00 98 Mechanical Ventilator 100 03/07/18 15:42 95 18 96 50 03/07/18 15:39 133/59 03/07/18 15:00 104 14 145/70 (95) 92 Mechanical Ventilator 60.00 03/07/18 14:00 75 18 159/71 (100) 97 Mechanical Ventilator 60.00 03/07/18 13:36 80 18 97 50 03/07/18 13:00 75 03/07/18 13:00 75 18 109/51 (70) 92 Mechanical Ventilator 60.00 03/07/18 12:00 98 Mechanical Ventilator 100 03/07/18 12:00 98.2 03/07/18 12:00 75 17 144/68 (93) 98 Mechanical Ventilator 60.00 03/07/18 11:28 98 Mechanical Ventilator 50.00 03/07/18 11:28 75 18 100 50 03/07/18 11:00 77 17 138/60 (86) 99 Mechanical Ventilator 60.00 03/07/18 10:00 74 18 136/59 (84) 98 Mechanical Ventilator 60.00 03/07/18 09:33 72 18 99 60 03/07/18 09:00 76 17 147/69 (95) 98 Mechanical Ventilator 60.00 03/07/18 08:00 Mechanical Ventilator 60.00 03/07/18 08:00 98 Mechanical Ventilator 100 03/07/18 08:00 93 17 153/78 (103) 99 Mechanical Ventilator 60.00 03/07/18 07:50 93 60 03/07/18 07:40 93 18 100 100 03/07/18 07:30 Mechanical Ventilator 03/07/18 07:00 97.6 03/07/18 07:00 82 03/07/18 07:00 78 126/67 (86) Vapotherm 35.00 15.00 03/07/18 06:38 89 24 93 35.00 I & O 03/08/18 07:00 Intake Total 0 ml Output Total 1425 ml Balance -1425 ml Capillary Refill : Less Than 3 Seconds General Appearance: No Apparent Distress, WD/WN HEENT: Normal ENT Inspection Neck: Normal Inspection Respiratory: Lungs Clear, No Accessory Muscle Use, No Respiratory Distress Cardiovascular: Regular Rate, Rhythm, No Murmur Gastrointestinal: non tender, soft Results Lab Laboratory Tests 03/08/18 03:10 Laboratory Tests 03/07/18 08:05: Vancomycin Level Trough 26.5*H 03/07/18 08:55: Blood Gas Puncture Site [facility], Blood Gas Patient Temperature 97.6, Arterial Blood pH 7.27*L, Arterial Blood Partial Pressure CO2 61H, Arterial Blood Partial Pressure O2 78L, Arterial Blood HCO3 27, Arterial Blood Total CO2 28.8, Arterial Blood Oxygen Saturation 95, Arterial Blood Base Excess 0.5, Merlin Test YES-POS, Blood Gas Ventilator Setting NO, Blood Gas Inspired Oxygen 60 03/07/18 14:35: Triglycerides Level 162H 03/07/18 17:55: Vancomycin Level Trough 18.9 03/08/18 03:10: White Blood Count 13.2H, Red Blood Count 4.74, Hemoglobin 11.2L, Hematocrit 37, Mean Corpuscular Volume 78L, Mean Corpuscular Hemoglobin 24L, Mean Corpuscular Hemoglobin Concent 30L, Red Cell Distribution Width 19.8H, Platelet Count 346, Mean Platelet Volume 9.9, Neutrophils (%) (Auto) 70, Lymphocytes (%) (Auto) 18, Monocytes (%) (Auto) 8, Eosinophils (%) (Auto) 5, Basophils (%) (Auto) 0, Neutrophils # (Auto) 9.2H, Lymphocytes # (Auto) 2.3, Monocytes # (Auto) 1.0, Eosinophils # (Auto) 0.6H, Basophils # (Auto) 0.1, Blood Gas Puncture Site R [place], Blood Gas Patient Temperature 97.6, Arterial Blood pH 7.33*L, Arterial Blood Partial Pressure CO2 51H, Arterial Blood Partial Pressure O2 68L, Arterial Blood HCO3 26, Arterial Blood Total CO2 27.6, Arterial Blood Oxygen Saturation 93L, Arterial Blood Base Excess 0.7, Merlin Test ART LINE, Blood Gas Ventilator Setting YES, Blood Gas Inspired Oxygen 45% FIO2, Sodium Level 141, Potassium Level 4.2, Chloride Level 108H, Carbon Dioxide Level 22, Anion Gap 11 , Blood Urea Nitrogen 19H, Creatinine 1.04, Estimat Glomerular Filtration Rate 54, BUN/Creatinine Ratio 18, Glucose Level 96, Calcium Level 8.5, Phosphorus Level 3.5, Magnesium Level 2.0 Microbiology 03/06/18 Blood Culture - Preliminary, Resulted No growth 03/06/18 Gram Stain, Resulted Pending 03/06/18 Sputum Culture - Preliminary, Resulted Sent To [facility] 03/05/18 Urine Culture - Final, Complete NO GROWTH Assessment/Plan Assessment/Plan Assess & Plan/Chief Complaint Acute respiratory failure. COPD with acute exacerbation. Bipolar. Patient on BiPAP now. . 03/07/18. Acute respiratory failure. Patient on ventilator. Bipolar . . 03/08/18. Respiratory distress. Patient on ventilator. Bipolar. Patient resting comfortably this a.m. Clinical Quality Measures Admission Status Admission Dx COPD with acute exacerbation. UTI. Pneumonia. Leukocytosis. Hypertension. Hyperlipidemia. Osteoarthritis arthritis. Bipolar DVT/VTE Risk/Contraindication: Risk Factor Score Per Nursin RFS Level Per Nursing on Admit: 4+=Very High JOCELYNE MEI DO Mar 08, 2018 06:18
--- NOTE | 2018-03-08 06:44 | Pulmonary Progress Note ---
Subjective Time Seen by a Provider: 07:13 Subjective/Events-last exam PT on ventilator Sepsis Event Evaluation Height, Weight, BMI Height: 5'5.00" Weight: 244lbs. 9.6oz. 110.512915kj; 40.7 BMI Method:Stated Exam Exam Vital Signs Date Time Temp Pulse Resp B/P (MAP) Pulse Ox O2 Delivery O2 Flow Rate FiO2 03/08/18 06:20 96 18 96 45 03/08/18 06:00 85 17 100/63 (75) 97 Mechanical Ventilator 60.00 03/08/18 05:00 93 17 91/45 (60) 95 Mechanical Ventilator 60.00 03/08/18 04:24 96 18 95 45 03/08/18 04:00 101 17 117/55 (75) 96 Mechanical Ventilator 60.00 03/08/18 04:00 94 Mechanical Ventilator 45 03/08/18 03:25 97.6 87 18 100/60 95 Mechanical Ventilator 45.00 03/08/18 03:00 104 18 144/64 (90) 95 Mechanical Ventilator 60.00 03/08/18 02:00 105 17 122/59 (80) 94 Mechanical Ventilator 60.00 03/08/18 01:46 87 18 95 50 03/08/18 01:00 107 03/08/18 01:00 98 18 100/63 (75) 95 Mechanical Ventilator 60.00 03/08/18 00:08 97.6 92 17 100/63 95 Mechanical Ventilator 50.00 03/08/18 00:00 98 Mechanical Ventilator 50 03/08/18 00:00 112 24 118/61 (80) 93 Mechanical Ventilator 60.00 03/07/18 23:00 92 17 100/63 (75) 95 Mechanical Ventilator 60.00 03/07/18 22:00 98 17 144/62 (89) 94 Mechanical Ventilator 60.00 03/07/18 21:00 85 17 144/62 (89) 93 Mechanical Ventilator 60.00 03/07/18 20:12 84 18 93 50 03/07/18 20:00 80 17 128/59 (82) 94 Mechanical Ventilator 60.00 03/07/18 20:00 98 Mechanical Ventilator 45 03/07/18 19:36 97.6 77 17 134/65 99 Mechanical Ventilator 60.00 03/07/18 19:00 80 17 130/63 (85) 99 Mechanical Ventilator 60.00 03/07/18 19:00 78 03/07/18 18:00 77 17 134/65 (88) 99 Mechanical Ventilator 60.00 03/07/18 17:00 79 18 152/71 (98) 99 Mechanical Ventilator 60.00 03/07/18 16:00 85 17 114/51 (72) 97 Mechanical Ventilator 60.00 03/07/18 16:00 97.6 03/07/18 16:00 98 Mechanical Ventilator 100 03/07/18 15:42 95 18 96 50 03/07/18 15:39 133/59 03/07/18 15:00 104 14 145/70 (95) 92 Mechanical Ventilator 60.00 03/07/18 14:00 75 18 159/71 (100) 97 Mechanical Ventilator 60.00 03/07/18 13:36 80 18 97 50 03/07/18 13:00 75 03/07/18 13:00 75 18 109/51 (70) 92 Mechanical Ventilator 60.00 03/07/18 12:00 98 Mechanical Ventilator 100 03/07/18 12:00 98.2 03/07/18 12:00 75 17 144/68 (93) 98 Mechanical Ventilator 60.00 03/07/18 11:28 98 Mechanical Ventilator 50.00 03/07/18 11:28 75 18 100 50 03/07/18 11:00 77 17 138/60 (86) 99 Mechanical Ventilator 60.00 03/07/18 10:00 74 18 136/59 (84) 98 Mechanical Ventilator 60.00 03/07/18 09:33 72 18 99 60 03/07/18 09:00 76 17 147/69 (95) 98 Mechanical Ventilator 60.00 03/07/18 08:00 Mechanical Ventilator 60.00 03/07/18 08:00 98 Mechanical Ventilator 100 03/07/18 08:00 93 17 153/78 (103) 99 Mechanical Ventilator 60.00 03/07/18 07:50 93 60 03/07/18 07:40 93 18 100 100 03/07/18 07:30 Mechanical Ventilator 03/07/18 07:00 97.6 03/07/18 07:00 82 03/07/18 07:00 78 126/67 (86) Vapotherm 35.00 15.00 I & O 03/08/18 07:00 Intake Total 0 ml Output Total 1550 ml Balance -1550 ml Height & Weight Height: 5'5.00" Weight: 244lbs. 9.6oz. 110.854193jj; 40.7 BMI Method:Stated General Appearance: No Apparent Distress, WD/WN HEENT: Normal ENT Inspection Neck: Normal Inspection Respiratory: Lungs Clear, No Accessory Muscle Use, No Respiratory Distress Cardiovascular: Regular Rate, Rhythm, No Murmur Capillary Refill: Less Than 3 Seconds Gastrointestinal: non tender, soft Neurologic/Psychiatric: Alert Skin: Normal Color, Warm/Dry Lymphatic: No Adenopathy Results Lab Laboratory Tests 03/06/18 14:18 03/07/18 03:31 03/08/18 03:10 Assessment/Plan Assessment/Plan -Acute on chronic respiratory failure -Pt is currently on ventilator. Not ready for weaning yet. -CXR and labs reviewed -Increase RR to 20 COPDAE - present on admission -Solumedrol 40 IV Q6 -SVNs Pneumonia with sepsis -vanco/zosyn -Fontaine cultures pending -IVF metabolic encephalopathy -Monitor MERCEDES GARZA DO Mar 08, 2018 06:44
[2018-03-08 07:12] LABS: VANCOMYCIN,TROUGH 13.2 UG/ML (10.0-20.0)
[2018-03-08] MEDS ORDERED: CATHETER FLUSH 10 ML SYR IV PRN (07:30)
[2018-03-08] MEDS: FAMOTIDINE 20 MG (PEPCID) TABLET PO SCH ×2 (09:56→22:03)
[2018-03-08] MEDS: LORATADINE (CLARITIN) 10 MG TAB PO SCH (09:56)
[2018-03-08] MEDS: VANCOMYCIN 1250 MG/NS 250 ML IVPB IV SCH ×2 (09:57)
[2018-03-08] MEDS: meTOprolol SUCCINATE 100 MG (TOPROL XL) TAB PO SCH (09:57)
[2018-03-08] MEDS: ENOXAPARIN 40 MG/0.4 ML (LOVENOX) SYR SC SCH ×2 (09:57→22:02)
[2018-03-08] MEDS: NICOTINE PATCH REMOVAL TP SCH (09:58)
[2018-03-08] MEDS: NICOTINE 14 MG (NICODERM) PATCH TD SCH (09:58)
[2018-03-08] MEDS: VITAMIN D3 5,000 UNITS (CHOLECALCIFEROL ) CAPSULE PO SCH (09:58)
--- NOTE | 2018-03-08 10:15 | Diagnostic Imaging Report ---
INDICATION: Mechanical ventilation, pneumonia, COPD exacerbation. TECHNIQUE: Single view chest 3:19 AM. CORRELATION STUDY: 03/07/2018 FINDINGS: Endotracheal tube and gastric tube remain in place. Heart size and mediastinum are stable. Continued areas of atelectasis or infiltrate in both lung bases. Asymmetric calcification and pleural thickening in the right lung apex. IMPRESSION: 1. Stable support lines and tubes. 2. Bibasilar areas of atelectasis or infiltrate persist, perhaps very minimally improved. Dictated by: Dictated on workstation # [id number]
[2018-03-08] MEDS: methylPREDNISolone 40 MG/ML (Solu-MEDROL) VIAL IV SCH ×3 (12:12→23:38)
[2018-03-08] MEDS: fentaNYL INJECTION 100 MCG/2 ML AMP IV PRN ×5 (15:30→23:23)
[2018-03-08] MEDS: POLYETHYLENE GLYCOL 17 GM (MIRALAX) PACK PO SCH (22:02)
[2018-03-08] MEDS: ATORVASTATIN 10 MG (LIPITOR) TABLET PO SCH (22:03)
[2018-03-08] MEDS: DONEPEZIL 10 MG (ARICEPT) TAB PO SCH (22:03)
[2018-03-08] MEDS: inSUlin ASPART (NovoLOG) 1 UNIT/0.01 ML (CHARGE PER UNIT) SC SCH (23:30)
[2018-03-09] VITALS (36 sets, daily range): BP systolic 100–189; BP diastolic 59–87
[2018-03-09] MEDS: fentaNYL INJECTION 100 MCG/2 ML AMP IV PRN ×7 (01:58→23:36)
[2018-03-09] MEDS: PROPOFOL DRIP (ICU) 100 ML IV SCH ×7 (01:58→22:22)
[2018-03-09] MEDS: RT-ALBUTEROL/IPRATROPIUM 3 ML (DUONEB) VIAL INH SCH ×6 (02:25→22:23)
[2018-03-09 04:13] LABS: BASOPHILS % (AUTO) 0 % (0-10); EOSINOPHILS % (AUTO) 0 % (0-10); HEMATOCRIT 39 % (35-52); HEMOGLOBIN 11.7 G/DL (11.5-16.0); LYMPHOCYTES # (AUTO) 0.6 X 10^3 (1.0-4.0); LYMPHOCYTES % (AUTO) 11 % (12-44); MEAN CORPUSCULAR HEMOGLOBIN 23 PG (25-34); MEAN CORPUSCULAR HGB CONC 30 G/DL (32-36); MEAN CORPUSCULAR VOLUME 77 FL (80-99); MEAN PLATELET VOLUME 9.6 FL (7.4-10.4); MONOCYTES # (AUTO) 0.1 X 10^3 (0.0-1.0); MONOCYTES % (AUTO) 1 % (0-12); NEUTROPHILS # (AUTO) 4.9 X 10^3 (1.8-7.8); NEUTROPHILS % (AUTO) 88 % (42-75); PLATELET COUNT 354 10^3/uL (130-400); RED BLOOD COUNT 5.03 10^6/uL (4.35-5.85); RED CELL DISTRIBUTION WIDTH 19.9 % (10.0-14.5); WHITE BLOOD COUNT 5.6 10^3/uL (4.3-11.0)
[2018-03-09 04:14] LABS: ABG BASE EXCESS -0.9 MMOL/L (-2.5-2.5); ABG OXYGEN SATURATION 91 % (94-100); ABG PCO2 45 MMHG (35-45); ABG PH 7.35 (7.37-7.43); ABG PO2 62 MMHG (79-93); ABG TCO2 25.6 MMOL/L (21.0-31.0)
[2018-03-09 04:15] LABS: ALLENS TEST ARTLINE; INSPIRED O2 50%; PATIENT TEMP 97.7; VENTILATOR YES
[2018-03-09 04:30] LABS: BUN/CREATININE RATIO 20; CARBON DIOXIDE 20 MMOL/L (21-32); CHLORIDE 108 MMOL/L (98-107); CREATININE SERUM 0.87 MG/DL (0.60-1.30); GFR ESTIMATED > 60; GLUCOSE 176 MG/DL (70-105); MAGNESIUM 1.9 MG/DL (1.8-2.4); PHOSPHORUS 3.7 MG/DL (2.3-4.7); SODIUM 142 MMOL/L (135-145)
[2018-03-09] MEDS: methylPREDNISolone 40 MG/ML (Solu-MEDROL) VIAL IV SCH ×4 (05:12→23:44)
[2018-03-09] MEDS: MAGNESIUM 1 GM/100 ML IVPB 100 ML IV SCH (05:14)
[2018-03-09] MEDS: inSUlin ASPART (NovoLOG) 1 UNIT/0.01 ML (CHARGE PER UNIT) SC SCH ×4 (05:14→23:57)
[2018-03-09] MEDS: KCL 20 MEQ TAB (K-DUR) PO SCH (05:14)
[2018-03-09] MEDS: POTASSIUM CL 10MEQ/50ML IVPB 50 ML IV SCH ×5 (05:14→08:42)
[2018-03-09] MEDS ORDERED: FUROSEMIDE 40 MG/4 ML INJ (LASIX) IVP ONE (05:30)
[2018-03-09] MEDS ORDERED: FUROSEMIDE 40 MG/4 ML INJ (LASIX) ONE (05:30)
--- NOTE | 2018-03-09 05:36 | Pulmonary Progress Note ---
Subjective Time Seen by a Provider: 06:53 Subjective/Events-last exam PT is sedated on vent. Sepsis Event Evaluation Height, Weight, BMI Height: 5'5.00" Weight: 244lbs. 9.6oz. 110.102599to; 40.7 BMI Method:Stated Exam Exam Vital Signs Date Time Temp Pulse Resp B/P (MAP) Pulse Ox O2 Delivery O2 Flow Rate FiO2 03/09/18 05:11 191/88 03/09/18 04:37 89 20 94 50 03/09/18 04:00 90 19 150/71 (97) 94 Mechanical Ventilator 50.00 03/09/18 04:00 94 Mechanical Ventilator 50 03/09/18 03:58 97.7 03/09/18 03:00 95 19 161/73 (102) 92 Mechanical Ventilator 50.00 03/09/18 02:25 92 20 92 50 03/09/18 02:00 95 19 143/69 (93) 91 Mechanical Ventilator 50.00 03/09/18 01:58 152/73 03/09/18 01:00 95 19 153/73 (99) 94 Mechanical Ventilator 50.00 03/09/18 00:58 Mechanical Ventilator 50.00 03/09/18 00:50 95 03/09/18 00:26 93 20 90 60 03/09/18 00:00 93 Mechanical Ventilator 60 03/09/18 00:00 97 19 100/63 (75) 92 Mechanical Ventilator 60.00 03/08/18 23:31 Mechanical Ventilator 60.00 03/08/18 23:27 98.4 03/08/18 23:00 Mechanical Ventilator 50.00 03/08/18 23:00 93 20 142/69 (93) 88 Mechanical Ventilator 50.00 03/08/18 22:51 Mechanical Ventilator 70.00 03/08/18 22:36 Mechanical Ventilator 50.00 03/08/18 22:26 85 20 90 50 03/08/18 22:26 133/68 03/08/18 22:00 92 20 159/76 (103) 93 Mechanical Ventilator 40.00 03/08/18 21:00 86 19 139/66 (90) 91 Mechanical Ventilator 40.00 03/08/18 20:09 Mechanical Ventilator 40.00 03/08/18 20:09 108 25 90 40 03/08/18 20:00 95 Mechanical Ventilator 35 03/08/18 20:00 105 26 183/85 (117) 90 Mechanical Ventilator 35.00 03/08/18 20:00 98.2 03/08/18 19:14 83 20 95 35 03/08/18 19:00 89 16 182/94 (123) 94 Mechanical Ventilator 35.00 03/08/18 19:00 89 03/08/18 18:51 163/76 03/08/18 18:15 75 19 157/74 (101) 92 Mechanical Ventilator 35.00 03/08/18 18:00 79 19 156/74 (101) 91 Mechanical Ventilator 35.00 03/08/18 17:00 89 19 177/86 (116) 97 Mechanical Ventilator 35.00 03/08/18 16:00 97.0 73 19 137/65 (89) 93 Mechanical Ventilator 35.00 03/08/18 16:00 93 Mechanical Ventilator 35 03/08/18 15:50 72 20 93 35 03/08/18 15:00 71 19 192/89 (123) 95 Mechanical Ventilator 35.00 03/08/18 14:56 73 19 187/90 97 Mechanical Ventilator 03/08/18 14:00 72 19 123/56 (78) 94 Mechanical Ventilator 35.00 03/08/18 13:45 73 20 93 35 03/08/18 13:00 75 03/08/18 13:00 75 20 156/70 (98) 96 Mechanical Ventilator 35.00 03/08/18 12:00 97.8 03/08/18 12:00 98 Mechanical Ventilator 35 03/08/18 12:00 76 20 143/64 (90) 96 Mechanical Ventilator 35.00 03/08/18 11:50 88 20 95 35 03/08/18 11:04 152/76 03/08/18 11:00 92 19 154/73 (100) 94 Mechanical Ventilator 35.00 03/08/18 10:00 93 19 150/64 (92) 92 Mechanical Ventilator 35.00 03/08/18 09:51 96 20 92 35 03/08/18 09:00 108 22 124/60 (81) 92 Mechanical Ventilator 35.00 03/08/18 08:00 96 20 136/64 (88) 95 Mechanical Ventilator 35.00 03/08/18 08:00 98 Mechanical Ventilator 50 03/08/18 07:52 87 19 94 35 03/08/18 07:00 87 20 135/58 (83) 94 Mechanical Ventilator 35.00 03/08/18 07:00 87 03/08/18 07:00 97.7 03/08/18 06:20 96 18 96 45 03/08/18 06:00 85 17 100/63 (75) 97 Mechanical Ventilator 60.00 I & O 03/09/18 07:00 Intake Total 1300 ml Output Total 2585 ml Balance -1285 ml Height & Weight Height: 5'5.00" Weight: 244lbs. 9.6oz. 110.333101si; 40.7 BMI Method:Stated General Appearance: No Apparent Distress, WD/WN, Other (sedated on vent) HEENT: Normal ENT Inspection Neck: Normal Inspection Respiratory: No Accessory Muscle Use, No Respiratory Distress, Decreased Breath Sounds Cardiovascular: Regular Rate, Rhythm, No Murmur Capillary Refill: Less Than 3 Seconds Gastrointestinal: non tender, soft Neurologic/Psychiatric: Alert Skin: Normal Color, Warm/Dry Lymphatic: No Adenopathy Results Lab Laboratory Tests 03/08/18 03:10 03/09/18 04:00 Assessment/Plan Assessment/Plan Acute on chronic respiratory failure with ARDS vs pulmonary edema -Check BNP -Pt is currently on ventilator. Not ready for weaning yet. -Peep increased to 12 -CXR and labs reviewed -RR 20 -GIve lasix 40mg IV X 1 -Decrease IVF COPDAE - present on admission -Solumedrol 40 IV Q6 -SVNs Pneumonia with sepsis -- leukocytosis is improving and no fever since admission. -vanco/zosyn -Fontaine cultures negative thus far -IVF Hx of Bipolar metabolic encephalopathy -Monitor MERCEDES GARZA DO Mar 09, 2018 05:35
[2018-03-09 06:14] LABS: OCCULT BLOOD,GASTRIC FLUID NEGATIVE (NEGATIVE)
--- NOTE | 2018-03-09 06:23 | Diagnostic Imaging Report ---
INDICATION: Respiratory failure Portable chest 11:13 PM There is an ET tube projecting over the trachea. NG tube projects over the stomach. Heart size and pulmonary vascularity are normal. There is some volume loss at the lung bases. There are no infiltrates, effusions or pneumothoraces. IMPRESSION: Minimal basilar volume loss. No significant change from earlier in the day. Dictated by: Dictated on workstation # [id number]
[2018-03-09] MEDS: ENOXAPARIN 40 MG/0.4 ML (LOVENOX) SYR SC SCH ×2 (08:42→20:11)
[2018-03-09] MEDS: VANCOMYCIN 1250 MG/NS 250 ML IVPB IV SCH ×2 (08:42)
[2018-03-09] MEDS: VITAMIN D3 5,000 UNITS (CHOLECALCIFEROL ) CAPSULE PO SCH (08:42)
[2018-03-09] MEDS: LORATADINE (CLARITIN) 10 MG TAB PO SCH (08:42)
[2018-03-09] MEDS: PANTOPRAZOLE 40 MG (PROTONIX) VIAL IV SCH ×2 (08:42→20:10)
[2018-03-09] MEDS: PIPERACILLIN SODIUM/TAZOBACTAM 4.5 GM in NS (IVPB) 100 ML IV SCH ×3 (08:42→23:43)
[2018-03-09] MEDS: meTOprolol SUCCINATE 100 MG (TOPROL XL) TAB PO SCH (08:42)
[2018-03-09] MEDS: NICOTINE 14 MG (NICODERM) PATCH TD SCH (08:42)
[2018-03-09] MEDS: NS IV 1000 ML 1,000 ML IV SCH (08:43)
[2018-03-09] MEDS: NICOTINE PATCH REMOVAL TP SCH (08:43)
--- NOTE | 2018-03-09 12:34 | Progress Note-Hospitalist ---
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 Assessment/Plan Assessment and Plan Assess & Plan/Chief Complaint Pneumonia VSRF AECOPD Plan: Vent management May need [place] Critical Care Critical Care: Critically Ill Patient Diagnosis/Problems Diagnosis/Problems (1) Pulmonary edema Status: Acute Qualifiers: Chronicity: acute Qualified Codes: J81.0 - Acute pulmonary edema (2) Ventilator dependent Status: Acute (3) Pneumonia Status: Acute Qualifiers: Pneumonia type: due to unspecified organism Laterality: unspecified laterality Lung location: unspecified part of lung Qualified Codes: J18.9 - Pneumonia, unspecified organism (4) COPD exacerbation Status: Acute Clinical Quality Measures DVT/VTE Risk/Contraindication: Risk Factor Score Per Nursin RFS Level Per Nursing on Admit: 4+=Very High SAMANTHA COLLIER DO Mar 09, 2018 12:34
[2018-03-09] MEDS: ATORVASTATIN 10 MG (LIPITOR) TABLET PO SCH (20:10)
[2018-03-09] MEDS: DONEPEZIL 10 MG (ARICEPT) TAB PO SCH (20:10)
[2018-03-09] MEDS: POLYETHYLENE GLYCOL 17 GM (MIRALAX) PACK PO SCH (20:12)
[2018-03-10] VITALS (34 sets, daily range): BP systolic 100–180; BP diastolic 48–92
[2018-03-10] MEDS: PROPOFOL DRIP (ICU) 100 ML IV SCH ×5 (01:45→23:24)
[2018-03-10] MEDS: RT-ALBUTEROL/IPRATROPIUM 3 ML (DUONEB) VIAL INH SCH ×6 (02:11→22:05)
--- NOTE | 2018-03-10 03:02 | Pulmonary Progress Note ---
Subjective Time Seen by a Provider: 03:11 Subjective/Events-last exam PT is still requiring 12 of peep and 50% Fi02. Sepsis Event Evaluation Height, Weight, BMI Height: 5'5.00" Weight: 244lbs. 9.6oz. 110.469445ht; 40.7 BMI Method:Stated Exam Exam Vital Signs Date Time Temp Pulse Resp B/P (MAP) Pulse Ox O2 Delivery O2 Flow Rate FiO2 03/10/18 02:18 69 20 128/62 (84) Mechanical Ventilator 50.00 03/10/18 02:13 69 20 92 50 03/10/18 01:45 147/85 03/10/18 01:08 71 03/10/18 01:00 76 20 144/67 (92) Mechanical Ventilator 50.00 03/10/18 00:09 81 20 94 50 03/10/18 00:00 81 20 167/78 (107) Mechanical Ventilator 50.00 03/09/18 23:59 97.4 03/09/18 23:58 94 Mechanical Ventilator 50 03/09/18 23:16 Mechanical Ventilator 50.00 03/09/18 23:00 84 20 171/82 (111) 96 Mechanical Ventilator 55.00 03/09/18 22:24 77 20 95 55 03/09/18 22:22 148/70 03/09/18 22:00 65 19 114/59 (77) 96 Mechanical Ventilator 55.00 03/09/18 21:00 71 20 135/65 (88) 95 Mechanical Ventilator 55.00 03/09/18 20:05 86 20 95 55 03/09/18 20:00 97 Mechanical Ventilator 55 03/09/18 20:00 97.0 03/09/18 20:00 87 22 142/70 (94) 92 Mechanical Ventilator 55.00 03/09/18 19:06 79 03/09/18 19:00 76 19 134/63 (86) 92 Mechanical Ventilator 55.00 03/09/18 18:57 Mechanical Ventilator 55.00 03/09/18 18:57 124/57 03/09/18 18:10 82 20 91 45 03/09/18 18:00 92 20 173/83 (113) 92 Mechanical Ventilator 40.00 03/09/18 17:00 90 20 170/81 (110) 91 Mechanical Ventilator 40.00 03/09/18 16:47 92 20 88 40 03/09/18 16:00 92 20 185/84 (117) 91 Mechanical Ventilator 40.00 03/09/18 16:00 95 Mechanical Ventilator 40 03/09/18 16:00 98.9 03/09/18 15:36 89 20 178/81 91 03/09/18 15:00 92 19 178/80 (112) 91 Mechanical Ventilator 40.00 03/09/18 14:13 Mechanical Ventilator 40.00 03/09/18 14:05 90 20 93 45 03/09/18 14:00 89 20 180/87 (118) 93 Mechanical Ventilator 45.00 03/09/18 13:00 95 19 170/78 (108) 95 Mechanical Ventilator 45.00 03/09/18 13:00 95 03/09/18 12:12 92 20 91 45 03/09/18 12:10 157/75 03/09/18 12:00 86 19 136/66 (89) 91 Mechanical Ventilator 45.00 03/09/18 12:00 93 Mechanical Ventilator 50 03/09/18 11:00 89 20 169/80 (109) 94 Mechanical Ventilator 45.00 03/09/18 10:55 Mechanical Ventilator 45.00 03/09/18 10:51 88 20 95 50 03/09/18 10:00 90 20 138/68 (91) 92 Mechanical Ventilator 50.00 03/09/18 09:00 93 19 165/76 (105) 94 Mechanical Ventilator 50.00 03/09/18 08:43 185/86 03/09/18 08:30 Mechanical Ventilator 50.00 03/09/18 08:21 104 20 97 55 03/09/18 08:00 97.0 108 21 174/76 (108) 95 Mechanical Ventilator 50.00 03/09/18 08:00 93 Mechanical Ventilator 50 03/09/18 07:00 98 03/09/18 07:00 98 19 184/87 (119) 91 Mechanical Ventilator 50.00 03/09/18 06:47 Mechanical Ventilator 55.00 03/09/18 06:35 95 20 94 50 03/09/18 06:00 90 26 156/76 (102) 94 Mechanical Ventilator 50.00 03/09/18 05:11 191/88 03/09/18 05:00 97 20 168/81 (110) 94 Mechanical Ventilator 50.00 03/09/18 04:37 89 20 94 50 9/29/18 04:00 90 19 150/71 (97) 94 Mechanical Ventilator 50.00 03/09/18 04:00 94 Mechanical Ventilator 50 03/09/18 03:58 97.7 03/09/18 03:00 95 19 161/73 (102) 92 Mechanical Ventilator 50.00 I & O 03/10/18 07:00 Intake Total 2372.5 ml Output Total 3175 ml Balance -802.5 ml Height & Weight Height: 5'5.00" Weight: 244lbs. 9.6oz. 110.005947rq; 40.7 BMI Method:Stated General Appearance: No Apparent Distress, Other (intubated and sedated) HEENT: Normal ENT Inspection Neck: Normal Inspection Respiratory: Decreased Breath Sounds Cardiovascular: Regular Rate, Rhythm Capillary Refill: Less Than 3 Seconds Gastrointestinal: non tender, soft Neurologic/Psychiatric: Alert Skin: Normal Color, Warm/Dry Lymphatic: No Adenopathy Results Lab Laboratory Tests 03/08/18 03:10 03/09/18 04:00 Assessment/Plan Assessment/Plan Acute on chronic respiratory failure with ARDS -Ps02/Fi02 = 124 -BNP is only 52 - doubt pulmonary edema -Pt is currently on ventilator. Not ready for weaning yet. -Peep is 12 -CXR and labs reviewed -RR 20 -IVF 75cc/hr -Labs/radiology pending COPDAE - present on admission -Solumedrol 40 IV Q12 -SVNs Pneumonia with sepsis -- leukocytosis is improving and no fever since admission. -vanco/zosyn -- Add Eraxis -Fontaine cultures negative thus far except yeast in sputum -IVF Hx of Bipolar metabolic encephalopathy -Monitor -Pt is not ready to wean from vent yet. She maybe a difficult wean. [facility] would be a good option for patient. I am going to be out of town starting tomorrow for 2wks. MERCEDES GARZA DO Mar 10, 2018 03:02
[2018-03-10 03:11] LABS: BASOPHILS % (AUTO) 0 % (0-10); EOSINOPHILS % (AUTO) 0 % (0-10); HEMATOCRIT 36 % (35-52); HEMOGLOBIN 11.5 G/DL (11.5-16.0); LYMPHOCYTES % (AUTO) 7 % (12-44); MEAN CORPUSCULAR HEMOGLOBIN 24 PG (25-34); MEAN CORPUSCULAR HGB CONC 32 G/DL (32-36); MEAN CORPUSCULAR VOLUME 76 FL (80-99); MEAN PLATELET VOLUME 10.1 FL (7.4-10.4); MONOCYTES # (AUTO) 0.6 X 10^3 (0.0-1.0); MONOCYTES % (AUTO) 4 % (0-12); NEUTROPHILS # (AUTO) 12.4 X 10^3 (1.8-7.8); NEUTROPHILS % (AUTO) 89 % (42-75); PLATELET COUNT 335 10^3/uL (130-400); RED BLOOD COUNT 4.75 10^6/uL (4.35-5.85); RED CELL DISTRIBUTION WIDTH 19.7 % (10.0-14.5)
[2018-03-10 03:12] LABS: ABG BASE EXCESS 1.9 MMOL/L (-2.5-2.5); ABG OXYGEN SATURATION 89 % (94-100); ABG PCO2 43 MMHG (35-45); ABG PO2 57 MMHG (79-93); ABG TCO2 27.8 MMOL/L (21.0-31.0); ALLENS TEST ARTLINE; INSPIRED O2 50; VENTILATOR YES
[2018-03-10] MEDS ORDERED: ANIDULAFUNGIN INJECTION 200 MG in NS (IVPB) 250 ML IV ONE ×5 (03:15→10:15)
[2018-03-10 03:28] LABS: CALCIUM 8.7 MG/DL (8.5-10.1); CREATININE SERUM 1.01 MG/DL (0.60-1.30); POTASSIUM 4.2 MMOL/L (3.6-5.0)
[2018-03-10 03:50] LABS: LYMPHOCYTES % (MANUAL) 5 %; MONOCYTES % (MANUAL) 3 %; NEUTROPHILS % (MANUAL) 92 %
[2018-03-10] MEDS: POTASSIUM CL 10MEQ/50ML IVPB 50 ML IV SCH (04:25)
[2018-03-10] MEDS: MAGNESIUM 1 GM/100 ML IVPB 100 ML IV SCH (04:26)
[2018-03-10] MEDS: KCL 20 MEQ TAB (K-DUR) PO SCH (04:26)
[2018-03-10] MEDS: inSUlin ASPART (NovoLOG) 1 UNIT/0.01 ML (CHARGE PER UNIT) SC SCH ×3 (04:35→18:00)
[2018-03-10] MEDS: fentaNYL INJECTION 100 MCG/2 ML AMP IV PRN ×5 (05:24→22:29)
[2018-03-10] MEDS ORDERED: TROUGH ORDER-PHARMACY XX NR (07:00)
[2018-03-10] MEDS: VANCOMYCIN 1250 MG/NS 250 ML IVPB IV SCH ×2 (08:05)
[2018-03-10] MEDS: meTOprolol SUCCINATE 100 MG (TOPROL XL) TAB PO SCH (08:05)
[2018-03-10] MEDS: ENOXAPARIN 40 MG/0.4 ML (LOVENOX) SYR SC SCH ×2 (08:05→22:18)
[2018-03-10] MEDS: PIPERACILLIN SODIUM/TAZOBACTAM 4.5 GM in NS (IVPB) 100 ML IV SCH ×2 (08:05→15:12)
[2018-03-10] MEDS: LORATADINE (CLARITIN) 10 MG TAB PO SCH (08:05)
[2018-03-10] MEDS: PANTOPRAZOLE 40 MG (PROTONIX) VIAL IV SCH ×2 (08:05→22:17)
[2018-03-10] MEDS: methylPREDNISolone 40 MG/ML (Solu-MEDROL) VIAL IV SCH ×2 (08:05→22:17)
[2018-03-10] MEDS: NICOTINE 14 MG (NICODERM) PATCH TD SCH (08:06)
[2018-03-10] MEDS: NICOTINE PATCH REMOVAL TP SCH (08:06)
[2018-03-10] MEDS: BETAMETHASONE DIPRO (AUGMENTED) 0.05% OINT 15 GM TOP SCH ×2 (08:20→22:18)
[2018-03-10] MEDS: NS IV 1000 ML 1,000 ML IV SCH ×2 (08:55→23:24)
--- NOTE | 2018-03-10 09:00 | Diagnostic Imaging Report ---
Indication: Pneumonia and COPD exacerbation. Comparison made with prior examination of 03/08/2018. Findings: ET and NG tubes remain in place. Heart size normal. Some patchy bibasilar atelectasis and/or pneumonitis. No pleural effusion or pneumothorax. Mediastinum is unremarkable. Impression: Bibasilar atelectasis and/or pneumonitis right greater than left. Dictated by: Dictated on workstation # [id number]
[2018-03-10] MEDS: VITAMIN D3 5,000 UNITS (CHOLECALCIFEROL ) CAPSULE PO SCH (09:59)
--- NOTE | 2018-03-10 12:20 | Progress Note-Hospitalist ---
Subjective HPI/CC On Admission Date Seen by Provider: Mar 10, 2018 Time Seen by Provider: 11:30 Subjective/Events-last exam Patient is the same Vent dependent Needs [place] Objective Exam Vital Signs Vital Signs Date Time Temp Pulse Resp B/P (MAP) Pulse Ox O2 Delivery O2 Flow Rate FiO2 03/10/18 11:38 99.6 03/10/18 10:19 82 20 95 50 03/10/18 08:00 167/74 (105) Mechanical Ventilator 50.00 Capillary Refill : Less Than 3 Seconds General Appearance: No Apparent Distress, Other (on vent, sedated) Respiratory: Crackles, Decreased Breath Sounds Cardiovascular: Regular Rate, Rhythm Results/Procedures Lab Laboratory Tests 03/10/18 03:00 Patient resulted labs reviewed. Assessment/Plan Assessment and Plan Assess & Plan/Chief Complaint Pneumonia VSRF AECOPD Plan: Vent management Needs [place] Critical Care Critical Care: Critically Ill Patient Diagnosis/Problems Diagnosis/Problems (1) Pulmonary edema Status: Acute Qualifiers: Chronicity: acute Qualified Codes: J81.0 - Acute pulmonary edema (2) Ventilator dependent Status: Acute (3) Pneumonia Status: Acute Qualifiers: Pneumonia type: due to unspecified organism Laterality: unspecified laterality Lung location: unspecified part of lung Qualified Codes: J18.9 - Pneumonia, unspecified organism (4) COPD exacerbation Status: Acute Clinical Quality Measures DVT/VTE Risk/Contraindication: Risk Factor Score Per Nursin RFS Level Per Nursing on Admit: 4+=Very High SAMANTHA COLLIER DO Mar 10, 2018 12:20
[2018-03-10] MEDS: ATORVASTATIN 10 MG (LIPITOR) TABLET PO SCH (22:17)
[2018-03-10] MEDS: POLYETHYLENE GLYCOL 17 GM (MIRALAX) PACK PO SCH (22:17)
[2018-03-10] MEDS: DONEPEZIL 10 MG (ARICEPT) TAB PO SCH (22:17)
[2018-03-11] VITALS (36 sets, daily range): BP systolic 120–190; BP diastolic 63–101
[2018-03-11] MEDS: inSUlin ASPART (NovoLOG) 1 UNIT/0.01 ML (CHARGE PER UNIT) SC SCH ×4 (00:42→18:35)
[2018-03-11] MEDS: fentaNYL INJECTION 100 MCG/2 ML AMP IV PRN ×7 (00:46→17:55)
[2018-03-11] MEDS: PIPERACILLIN SODIUM/TAZOBACTAM 4.5 GM in NS (IVPB) 100 ML IV SCH ×3 (00:46→15:37)
[2018-03-11] MEDS ORDERED: LABETALOL HCL 20 MG/4 ML VIAL ONE (02:02)
[2018-03-11] MEDS ORDERED: LABETALOL HCL 20 MG/4 ML VIAL IV PRN (02:15)
[2018-03-11] MEDS ORDERED: hydrALAZINE (APESOLINE) 20 MG/ML VIAL IV PRN (02:15)
[2018-03-11] MEDS: RT-ALBUTEROL/IPRATROPIUM 3 ML (DUONEB) VIAL INH SCH ×6 (02:21→21:04)
[2018-03-11] MEDS: PROPOFOL DRIP (ICU) 100 ML IV SCH ×6 (03:05→22:16)
[2018-03-11 03:34] LABS: BASOPHILS % (AUTO) 0 % (0-10); EOSINOPHILS # (AUTO) 0.1 10^3/uL (0.0-0.3); EOSINOPHILS % (AUTO) 0 % (0-10); HEMATOCRIT 40 % (35-52); HEMOGLOBIN 12.2 G/DL (11.5-16.0); LYMPHOCYTES % (AUTO) 5 % (12-44); MEAN CORPUSCULAR HEMOGLOBIN 24 PG (25-34); MEAN CORPUSCULAR HGB CONC 31 G/DL (32-36); MEAN CORPUSCULAR VOLUME 77 FL (80-99); MEAN PLATELET VOLUME 10.2 FL (7.4-10.4); MONOCYTES # (AUTO) 0.7 X 10^3 (0.0-1.0); MONOCYTES % (AUTO) 4 % (0-12); NEUTROPHILS # (AUTO) 17.9 X 10^3 (1.8-7.8); NEUTROPHILS % (AUTO) 91 % (42-75); PLATELET COUNT 332 10^3/uL (130-400); RED BLOOD COUNT 5.19 10^6/uL (4.35-5.85); WHITE BLOOD COUNT 19.7 10^3/uL (4.3-11.0)
[2018-03-11 03:54] LABS: CALCIUM 8.7 MG/DL (8.5-10.1); MAGNESIUM 2.4 MG/DL (1.8-2.4); POTASSIUM 4.9 MMOL/L (3.6-5.0)
[2018-03-11] MEDS: MAGNESIUM 1 GM/100 ML IVPB 100 ML IV SCH (03:57)
[2018-03-11] MEDS: KCL 20 MEQ TAB (K-DUR) PO SCH (03:57)
[2018-03-11] MEDS: POTASSIUM CL 10MEQ/50ML IVPB 50 ML IV SCH (03:57)
[2018-03-11 04:46] LABS: ABG BASE EXCESS 1.5 MMOL/L (-2.5-2.5); ABG OXYGEN SATURATION 93 % (94-100); ABG PCO2 48 MMHG (35-45); ABG PH 7.36 (7.37-7.43); ABG PO2 69 MMHG (79-93); ABG TCO2 27.9 MMOL/L (21.0-31.0); ALLENS TEST POSTIIVE; INSPIRED O2 50%; PATIENT TEMP 97.9; VENTILATOR YES
--- NOTE | 2018-03-11 08:00 | Progress Note (SOAP) ---
Subjective Time Seen by a Provider: 07:58 Subjective/Events-last exam Patient on vent. Patient resting comfortably. Patient candidate for [place] Objective Exam Vital Signs Date Time Temp Pulse Resp B/P (MAP) Pulse Ox O2 Delivery O2 Flow Rate FiO2 03/11/18 06:41 87 20 96 50 03/11/18 06:00 92 19 171/90 (117) 94 Mechanical Ventilator 50.00 03/11/18 05:00 90 19 171/80 (110) 94 Mechanical Ventilator 50.00 03/11/18 04:25 85 20 96 50 03/11/18 04:00 92 Mechanical Ventilator 50 03/11/18 04:00 85 19 169/86 (113) 95 Mechanical Ventilator 50.00 03/11/18 03:05 97.9 82 20 184/93 92 Mechanical Ventilator 50.00 03/11/18 03:00 84 19 181/92 (121) 93 Mechanical Ventilator 50.00 03/11/18 02:15 82 20 92 50 03/11/18 02:00 87 19 187/99 (128) 92 Mechanical Ventilator 50.00 03/11/18 01:00 90 20 185/84 (117) 92 Mechanical Ventilator 50.00 03/11/18 01:00 90 03/11/18 00:43 92 18 180/82 (114) 93 Mechanical Ventilator 50.00 03/11/18 00:32 91 20 93 50 03/11/18 00:00 97.9 03/11/18 00:00 92 Mechanical Ventilator 50 03/10/18 23:51 87 20 146/67 (93) 94 Mechanical Ventilator 50.00 03/10/18 23:24 97.4 87 20 171/80 95 Mechanical Ventilator 50.00 03/10/18 22:05 87 20 95 50 03/10/18 22:00 87 20 171/79 (109) 94 Mechanical Ventilator 50.00 03/10/18 21:00 89 20 167/76 (106) 94 Mechanical Ventilator 50.00 03/10/18 20:20 90 20 168/76 (106) 94 Mechanical Ventilator 50.00 03/10/18 20:00 90 20 94 50 03/10/18 20:00 95 Mechanical Ventilator 50 03/10/18 19:31 97.4 86 18 169/73 (105) 95 Mechanical Ventilator 50.00 03/10/18 19:00 89 03/10/18 18:33 69 20 93 50 03/10/18 18:00 86 18 132/69 (90) 95 Mechanical Ventilator 50.00 03/10/18 17:00 98.2 68 20 113/48 (69) 94 Mechanical Ventilator 50.00 03/10/18 16:13 80 20 98 50 03/10/18 16:00 91 Mechanical Ventilator 50 03/10/18 16:00 79 19 176/85 (115) 98 Mechanical Ventilator 50.00 03/10/18 15:12 94 03/10/18 15:00 93 19 171/77 (108) 94 Mechanical Ventilator 50.00 03/10/18 14:20 78 20 91 50 03/10/18 14:00 86 20 180/80 (113) 91 Mechanical Ventilator 50.00 03/10/18 13:00 87 03/10/18 13:00 87 19 172/75 (107) 92 Mechanical Ventilator 50.00 03/10/18 12:00 74 19 164/75 (104) 95 Mechanical Ventilator 50.00 03/10/18 12:00 91 Mechanical Ventilator 50 03/10/18 11:38 99.6 03/10/18 11:00 87 19 173/77 (109) 94 Mechanical Ventilator 50.00 03/10/18 10:19 82 20 95 50 03/10/18 10:00 82 19 167/75 (105) 94 Mechanical Ventilator 50.00 03/10/18 09:00 81 20 135/60 (85) 91 Mechanical Ventilator 50.00 03/10/18 08:15 98.8 03/10/18 08:00 81 20 167/74 (105) 92 Mechanical Ventilator 50.00 03/10/18 08:00 97 Mechanical Ventilator 50 I & O 03/11/18 07:00 Intake Total 560 ml Output Total 1550 ml Balance -990 ml Capillary Refill : Less Than 3 Seconds General Appearance: No Apparent Distress, WD/WN Respiratory: No Accessory Muscle Use, No Respiratory Distress Cardiovascular: Regular Rate, Rhythm Results Lab Laboratory Tests 03/11/18 03:25 Laboratory Tests 03/10/18 11:40: Glucometer 89 03/10/18 15:22: Glucometer 88 03/11/18 00:41: Glucometer 103 03/11/18 03:25: White Blood Count 19.7H, Red Blood Count 5.19, Hemoglobin 12.2, Hematocrit 40, Mean Corpuscular Volume 77L, Mean Corpuscular Hemoglobin 24L, Mean Corpuscular Hemoglobin Concent 31L, Red Cell Distribution Width 21.0H, Platelet Count 332, Mean Platelet Volume 10.2, Neutrophils (%) (Auto) 91H, Lymphocytes (%) (Auto) 5L , Monocytes (%) (Auto) 4, Eosinophils (%) (Auto) 0, Basophils (%) (Auto) 0, Neutrophils # (Auto) 17.9H, Lymphocytes # (Auto) 1.0, Monocytes # (Auto) 0.7, Eosinophils # (Auto) 0.1, Basophils # (Auto) 0.0, Sodium Level 139, Potassium Level 4.9, Chloride Level 107, Carbon Dioxide Level 22, Anion Gap 10, Blood Urea Nitrogen 25H, Creatinine 1.00, Estimat Glomerular Filtration Rate 57, BUN/ Creatinine Ratio 25, Glucose Level 118H, Calcium Level 8.7, Phosphorus Level 4.0 , Magnesium Level 2.4 03/11/18 04:40: Blood Gas Puncture Site L RADIAL, Blood Gas Patient Temperature 97.9, Arterial Blood pH 7.36L, Arterial Blood Partial Pressure CO2 48H, Arterial Blood Partial Pressure O2 69L, Arterial Blood HCO3 27, Arterial Blood Total CO2 27.9, Arterial Blood Oxygen Saturation 93L, Arterial Blood Base Excess 1.5, Merlin Test POSTIIVE, Blood Gas Ventilator Setting YES, Blood Gas Inspired Oxygen 50% Microbiology 03/06/18 Blood Culture - Preliminary, Resulted No growth 03/06/18 Gram Stain - Final, Complete 03/06/18 Sputum Culture - Final, Complete Yeast species 03/05/18 Urine Culture - Final, Complete NO GROWTH Assessment/Plan Assessment/Plan Assess & Plan/Chief Complaint Acute respiratory failure. COPD with acute exacerbation. Bipolar. Patient on BiPAP now. . 03/07/18. Acute respiratory failure. Patient on ventilator. Bipolar . . 03/08/18. Respiratory distress. Patient on ventilator. Bipolar. Patient resting comfortably this a.m.. . 03/11/18. Uterine chronic respiratory failure with tolerance. COPD with acute exacerbation. Pneumonia. Bipolar. Patient candidate for [place]. Patient on vent Clinical Quality Measures Admission Status Admission Dx COPD with acute exacerbation. UTI. Pneumonia. Leukocytosis. Hypertension. Hyperlipidemia. Osteoarthritis arthritis. Bipolar DVT/VTE Risk/Contraindication: Risk Factor Score Per Nursin RFS Level Per Nursing on Admit: 4+=Very High JOCELYNE MEI DO Mar 11, 2018 08:00
[2018-03-11] MEDS: ENOXAPARIN 40 MG/0.4 ML (LOVENOX) SYR SC SCH ×2 (08:18→20:03)
[2018-03-11] MEDS: LORATADINE (CLARITIN) 10 MG TAB PO SCH (08:18)
[2018-03-11] MEDS: NICOTINE 14 MG (NICODERM) PATCH TD SCH (08:18)
[2018-03-11] MEDS: PANTOPRAZOLE 40 MG (PROTONIX) VIAL IV SCH ×2 (08:18→20:03)
[2018-03-11] MEDS: methylPREDNISolone 40 MG/ML (Solu-MEDROL) VIAL IV SCH ×2 (08:18→20:03)
[2018-03-11] MEDS: NICOTINE PATCH REMOVAL TP SCH (08:19)
[2018-03-11] MEDS: BETAMETHASONE DIPRO (AUGMENTED) 0.05% OINT 15 GM TOP SCH ×2 (08:20→20:04)
[2018-03-11] MEDS: VITAMIN D3 5,000 UNITS (CHOLECALCIFEROL ) CAPSULE PO SCH (08:22)
[2018-03-11] MEDS: VANCOMYCIN 1250 MG/NS 250 ML IVPB IV SCH ×2 (08:22)
[2018-03-11] MEDS: ANIDULAFUNGIN INJECTION 100 MG in NS (IVPB) 100 ML IV SCH (08:38)
[2018-03-11] MEDS: meTOprolol TARTRATE 50 MG (LOPRESSOR) TAB NG SCH ×2 (08:43→20:03)
--- NOTE | 2018-03-11 09:05 | Diagnostic Imaging Report ---
INDICATION: Dyspnea. COMPARISON: 03/10/2018. FINDINGS: Stable ET and enteric tubes. The enteric tube tip cannot be visualized due to summation shadow and portable technique. Bibasilar pulmonary bandlike opacities are similar. Potential trace right pleural effusion is stable. No pneumothorax. Stable cardiomegaly. No change in right upper lobe dense focal architectural distortion. IMPRESSION: 1. Stable support devices. 2. No adverse development or interval improvement. Dictated by: Dictated on workstation # [id number]
[2018-03-11] MEDS: NS IV 1000 ML 1,000 ML IV SCH (09:25)
--- NOTE | 2018-03-11 12:59 | Progress Note-Hospitalist ---
Subjective HPI/CC On Admission Date Seen by Provider: Mar 11, 2018 Time Seen by Provider: 12:55 Subjective/Events-last exam Vent settings 500/12/20/40% [place] evaluating patient for transfer Labs reviewed Day # 5 of vent Malathi Henriquez Zosyn on board CXR appears ARDS/Pneumonia sedation with [place] Objective Exam Vital Signs Vital Signs Date Time Temp Pulse Resp B/P (MAP) Pulse Ox O2 Delivery O2 Flow Rate FiO2 03/11/18 12:27 87 19 168/86 91 Mechanical Ventilator 03/11/18 12:00 97.4 40.00 03/11/18 11:10 45 Capillary Refill : Less Than 3 Seconds General Appearance: No Apparent Distress, WD/WN, Chronically ill, Obese, Other (sedated) Respiratory: No Accessory Muscle Use, No Respiratory Distress, Decreased Breath Sounds, Other (on vent) Cardiovascular: Regular Rate, Rhythm, No Edema, No Gallop, No JVD, No Murmur, Normal Peripheral Pulses Neurologic/Psychiatric: Alert, Oriented x3, No Motor/Sensory Deficits, Normal Mood/Affect Results/Procedures Lab Laboratory Tests 03/11/18 03:25 Patient resulted labs reviewed. Assessment/Plan Assessment and Plan Assess & Plan/Chief Complaint Laboratory Tests 03/10/18 15:22: Glucometer 88 03/11/18 00:41: Glucometer 103 03/11/18 03:25: White Blood Count 19.7H, Red Blood Count 5.19, Hemoglobin 12.2, Hematocrit 40, Mean Corpuscular Volume 77L, Mean Corpuscular Hemoglobin 24L, Mean Corpuscular Hemoglobin Concent 31L, Red Cell Distribution Width 21.0H, Platelet Count 332, Mean Platelet Volume 10.2, Neutrophils (%) (Auto) 91H, Lymphocytes (%) (Auto) 5L , Monocytes (%) (Auto) 4, Eosinophils (%) (Auto) 0, Basophils (%) (Auto) 0, Neutrophils # (Auto) 17.9H, Lymphocytes # (Auto) 1.0, Monocytes # (Auto) 0.7, Eosinophils # (Auto) 0.1, Basophils # (Auto) 0.0, Sodium Level 139, Potassium Level 4.9, Chloride Level 107, Carbon Dioxide Level 22, Anion Gap 10, Blood Urea Nitrogen 25H, Creatinine 1.00, Estimat Glomerular Filtration Rate 57, BUN/ Creatinine Ratio 25, Glucose Level 118H, Calcium Level 8.7, Phosphorus Level 4.0 , Magnesium Level 2.4 03/11/18 04:40: Blood Gas Puncture Site L RADIAL, Blood Gas Patient Temperature 97.9, Arterial Blood pH 7.36L, Arterial Blood Partial Pressure CO2 48H, Arterial Blood Partial Pressure O2 69L, Arterial Blood HCO3 27, Arterial Blood Total CO2 27.9, Arterial Blood Oxygen Saturation 93L, Arterial Blood Base Excess 1.5, Merlin Test POSTIIVE, Blood Gas Ventilator Setting YES, Blood Gas Inspired Oxygen 50% 03/11/18 12:15: Glucometer 81 Microbiology 03/06/18 Blood Culture - Preliminary, Resulted No growth 03/06/18 Gram Stain - Final, Complete 03/06/18 Sputum Culture - Final, Complete Yeast species 03/05/18 Urine Culture - Final, Complete NO GROWTH CHEST 1 VIEW, AP/PA ONLY INDICATION: Dyspnea. COMPARISON: 03/10/2018. FINDINGS: Stable ET and enteric tubes. The enteric tube tip cannot be visualized due to summation shadow and portable technique. Bibasilar pulmonary bandlike opacities are similar. Potential trace right pleural effusion is stable. No pneumothorax. Stable cardiomegaly. No change in right upper lobe dense focal architectural distortion. IMPRESSION: 1. Stable support devices. 2. No adverse development or interval improvement. Assessment: Pneumonia VDRF AECOPD Plan: Vent management Needs [place] Abx Sedation Critical Care Critical Care: Critically Ill Patient Diagnosis/Problems Diagnosis/Problems (1) Pulmonary edema Status: Acute Qualifiers: Chronicity: acute Qualified Codes: J81.0 - Acute pulmonary edema (2) Ventilator dependent Status: Acute (3) Pneumonia Status: Acute Qualifiers: Pneumonia type: due to unspecified organism Laterality: unspecified laterality Lung location: unspecified part of lung Qualified Codes: J18.9 - Pneumonia, unspecified organism (4) COPD exacerbation Status: Acute Clinical Quality Measures DVT/VTE Risk/Contraindication: Risk Factor Score Per Nursin RFS Level Per Nursing on Admit: 4+=Very High SAMANTHA COLLIER DO Mar 11, 2018 12:59
[2018-03-11] MEDS: fentaNYL INJECTION 1,250 MCG in NS (IVPB) 250 ML IV SCH (18:35)
[2018-03-11] MEDS: ATORVASTATIN 10 MG (LIPITOR) TABLET PO SCH (20:03)
[2018-03-11] MEDS: DONEPEZIL 10 MG (ARICEPT) TAB PO SCH (20:03)
[2018-03-11] MEDS: POLYETHYLENE GLYCOL 17 GM (MIRALAX) PACK PO SCH (20:05)
[2018-03-12] VITALS (24 sets, daily range): BP systolic 99–159; BP diastolic 55–96
[2018-03-12] MEDS: inSUlin ASPART (NovoLOG) 1 UNIT/0.01 ML (CHARGE PER UNIT) SC SCH ×3 (00:33→12:25)
[2018-03-12] MEDS: PIPERACILLIN SODIUM/TAZOBACTAM 4.5 GM in NS (IVPB) 100 ML IV SCH ×2 (00:43→08:08)
[2018-03-12] MEDS: RT-ALBUTEROL/IPRATROPIUM 3 ML (DUONEB) VIAL INH SCH ×4 (01:07→14:04)
[2018-03-12] MEDS: PROPOFOL DRIP (ICU) 100 ML IV SCH ×4 (02:59→14:26)
[2018-03-12 03:55] LABS: ABG BASE EXCESS 2.3 MMOL/L (-2.5-2.5); ABG OXYGEN SATURATION 88 % (94-100); ABG PCO2 48 MMHG (35-45); ABG PH 7.37 (7.37-7.43); ABG PO2 57 MMHG (79-93); ABG TCO2 28.6 MMOL/L (21.0-31.0)
[2018-03-12 03:58] LABS: ALLENS TEST POSITIVE; INSPIRED O2 30%; PATIENT TEMP 98.2; VENTILATOR YES
[2018-03-12 04:30] LABS: BASOPHILS % (AUTO) 0 % (0-10); EOSINOPHILS % (AUTO) 0 % (0-10); HEMATOCRIT 37 % (35-52); HEMOGLOBIN 11.3 G/DL (11.5-16.0); LYMPHOCYTES # (AUTO) 1.8 X 10^3 (1.0-4.0); LYMPHOCYTES % (AUTO) 11 % (12-44); MEAN CORPUSCULAR HEMOGLOBIN 24 PG (25-34); MEAN CORPUSCULAR HGB CONC 31 G/DL (32-36); MEAN CORPUSCULAR VOLUME 78 FL (80-99); MEAN PLATELET VOLUME 10.5 FL (7.4-10.4); MONOCYTES # (AUTO) 1.3 X 10^3 (0.0-1.0); MONOCYTES % (AUTO) 8 % (0-12); NEUTROPHILS # (AUTO) 12.5 X 10^3 (1.8-7.8); NEUTROPHILS % (AUTO) 80 % (42-75); PLATELET COUNT 314 10^3/uL (130-400); RED BLOOD COUNT 4.74 10^6/uL (4.35-5.85); RED CELL DISTRIBUTION WIDTH 20.5 % (10.0-14.5); WHITE BLOOD COUNT 15.6 10^3/uL (4.3-11.0)
[2018-03-12 04:49] LABS: BUN/CREATININE RATIO 32; CALCIUM 8.5 MG/DL (8.5-10.1); CARBON DIOXIDE 25 MMOL/L (21-32); CHLORIDE 106 MMOL/L (98-107); CREATININE SERUM 0.88 MG/DL (0.60-1.30); GFR ESTIMATED > 60; GLUCOSE 128 MG/DL (70-105); MAGNESIUM 2.3 MG/DL (1.8-2.4); PHOSPHORUS 4.3 MG/DL (2.3-4.7); POTASSIUM 4.8 MMOL/L (3.6-5.0); SODIUM 139 MMOL/L (135-145)
[2018-03-12] MEDS: MAGNESIUM 1 GM/100 ML IVPB 100 ML IV SCH (04:58)
[2018-03-12] MEDS: KCL 20 MEQ TAB (K-DUR) PO SCH (04:58)
[2018-03-12] MEDS: POTASSIUM CL 10MEQ/50ML IVPB 50 ML IV SCH (04:58)
[2018-03-12] MEDS: NS IV 1000 ML 1,000 ML IV SCH (06:59)
--- NOTE | 2018-03-12 07:23 | Diagnostic Imaging Report ---
EXAM: CHEST 1 VIEW, AP/PA ONLY INDICATION: Pneumonia. COPD. Intubated. COMPARISON: Chest radiograph 03/11/2018. FINDINGS: ETT tip approximately 3 cm from the [place]. NG tube tip below the [id number]. Low lung volumes with bibasilar atelectasis. Small right pleural effusion. Probable tiny left pleural effusion. No pneumothorax. Normal heart size and pulmonary vascularity. Stable scarring in the right upper lobe. IMPRESSION: 1. Bibasilar atelectasis or infiltrate, greater on the right. 2. Small bilateral pleural effusions, greater on the right. 3. ETT in the expected position. NG tube tip below the [id number]. Dictated by: Dictated on workstation # [id number]
--- NOTE | 2018-03-12 07:50 | Progress Note (SOAP) ---
Subjective Time Seen by a Provider: 07:48 Subjective/Events-last exam patient vent dependent. Patient be transferred to [facility] in [place] today.. Patient resting comfortably Objective Exam Vital Signs Date Time Temp Pulse Resp B/P (MAP) Pulse Ox O2 Delivery O2 Flow Rate FiO2 03/12/18 07:26 97.1 Mechanical Ventilator 40.00 03/12/18 07:25 64 20 96 40 03/12/18 06:59 133/58 03/12/18 06:00 74 121/60 (80) 97 Mechanical Ventilator 40.00 03/12/18 05:00 65 108/60 (76) 96 Mechanical Ventilator 40.00 03/12/18 04:20 86 33 99/76 (84) 91 Mechanical Ventilator 40.00 03/12/18 04:00 86 144/73 (96) 92 Mechanical Ventilator 30.00 03/12/18 03:58 96 Mechanical Ventilator 30 03/12/18 03:58 98.2 03/12/18 03:45 89 20 94 30 03/12/18 03:00 89 143/72 (95) 100 Mechanical Ventilator 30.00 03/12/18 02:59 140/69 03/12/18 02:15 94 20 133/63 (86) 100 Mechanical Ventilator 30.00 03/12/18 02:00 79 20 126/64 (84) 100 Mechanical Ventilator 35.00 03/12/18 01:32 75 20 125/70 (88) 100 Mechanical Ventilator 35.00 03/12/18 01:07 61 20 96 40 03/12/18 01:00 62 20 125/70 (88) 96 Mechanical Ventilator 40.00 03/12/18 01:00 62 03/12/18 00:00 68 20 126/70 (88) 95 Mechanical Ventilator 40.00 03/12/18 00:00 96 Mechanical Ventilator 40 03/12/18 00:00 98.0 03/11/18 23:00 64 20 120/63 (82) 94 Mechanical Ventilator 40.00 03/11/18 22:40 68 20 94 40 03/11/18 22:16 122/72 03/11/18 22:00 79 20 139/76 (97) 90 Mechanical Ventilator 40.00 03/11/18 21:05 90 20 94 40 03/11/18 21:00 93 19 151/78 (102) 94 Mechanical Ventilator 40.00 03/11/18 20:00 96 Mechanical Ventilator 40 03/11/18 20:00 97 20 151/81 (104) 94 Mechanical Ventilator 40.00 03/11/18 19:48 97.0 03/11/18 19:08 157/86 03/11/18 19:00 96 03/11/18 19:00 96 19 157/86 (109) 95 Mechanical Ventilator 40.00 03/11/18 18:21 93 20 94 40 03/11/18 18:00 105 20 175/95 (121) 92 Mechanical Ventilator 40.00 03/11/18 17:00 103 19 167/81 (109) 92 Mechanical Ventilator 40.00 03/11/18 16:42 100 20 92 40 03/11/18 16:21 92 Mechanical Ventilator 40 03/11/18 16:00 98.0 95 20 170/85 (113) 92 Mechanical Ventilator 40.00 03/11/18 15:36 175/91 03/11/18 15:00 85 20 157/78 (104) 93 Mechanical Ventilator 40.00 03/11/18 14:14 89 20 97 40 03/11/18 14:00 81 20 180/94 (122) 94 Mechanical Ventilator 40.00 03/11/18 13:00 87 20 174/82 (112) 90 Mechanical Ventilator 40.00 03/11/18 13:00 88 03/11/18 12:27 87 19 168/86 91 Mechanical Ventilator 03/11/18 12:10 81 20 95 40 03/11/18 12:00 84 19 169/86 (113) 90 Mechanical Ventilator 40.00 03/11/18 12:00 97.4 Mechanical Ventilator 40.00 03/11/18 11:55 92 Mechanical Ventilator 40 03/11/18 11:10 73 20 98 45 03/11/18 11:00 73 20 170/92 (118) 97 Mechanical Ventilator 40.00 03/11/18 10:00 74 20 188/98 (128) 99 Mechanical Ventilator 50.00 03/11/18 09:26 176/94 03/11/18 09:00 89 20 178/96 (123) 97 Mechanical Ventilator 50.00 03/11/18 08:28 93 20 96 50 03/11/18 08:18 92 Mechanical Ventilator 50 03/11/18 08:18 97.1 Mechanical Ventilator 50.00 03/11/18 08:00 93 19 175/92 (119) 94 Mechanical Ventilator 50.00 I & O 03/12/18 07:00 Intake Total 4429.5 ml Output Total 2300 ml Balance 2129.5 ml Capillary Refill : Less Than 3 Seconds General Appearance: No Apparent Distress, WD/WN HEENT: Normal ENT Inspection Neck: Normal Inspection Respiratory: No Accessory Muscle Use, No Respiratory Distress, Decreased Breath Sounds Cardiovascular: Regular Rate, Rhythm, No Murmur Gastrointestinal: non tender, soft Results Lab Laboratory Tests 03/12/18 03:50 Laboratory Tests 03/11/18 12:15: Glucometer 81 03/11/18 17:10: Triglycerides Level 277H 03/11/18 18:34: Glucometer 92 03/12/18 00:09: Glucometer 122H 03/12/18 03:49: Blood Gas Puncture Site L RADIAL, Blood Gas Patient Temperature 98.2, Arterial Blood pH 7.37, Arterial Blood Partial Pressure CO2 48H, Arterial Blood Partial Pressure O2 57L, Arterial Blood HCO3 27, Arterial Blood Total CO2 28.6, Arterial Blood Oxygen Saturation 88L, Arterial Blood Base Excess 2.3, Merlin Test POSITIVE, Blood Gas Ventilator Setting YES, Blood Gas Inspired Oxygen 30% 03/12/18 03:50: White Blood Count 15.6H, Red Blood Count 4.74, Hemoglobin 11.3L, Hematocrit 37, Mean Corpuscular Volume 78L, Mean Corpuscular Hemoglobin 24L, Mean Corpuscular Hemoglobin Concent 31L, Red Cell Distribution Width 20.5H, Platelet Count 314, Mean Platelet Volume 10.5H, Neutrophils (%) (Auto) 80H, Lymphocytes (%) (Auto) 11L, Monocytes (%) (Auto) 8, Eosinophils (%) (Auto) 0, Basophils (%) (Auto) 0, Neutrophils # (Auto) 12.5H, Lymphocytes # (Auto) 1.8, Monocytes # (Auto) 1.3H, Eosinophils # (Auto) 0.0, Basophils # (Auto) 0.0, Sodium Level 139, Potassium Level 4.8, Chloride Level 106, Carbon Dioxide Level 25, Anion Gap 8, Blood Urea Nitrogen 28H, Creatinine 0.88, Estimat Glomerular Filtration Rate > 60, BUN/ Creatinine Ratio 32, Glucose Level 128H, Calcium Level 8.5, Phosphorus Level 4.3 , Magnesium Level 2.3 Microbiology 03/06/18 Blood Culture - Final, Complete No growth 03/06/18 Gram Stain - Final, Complete 03/06/18 Sputum Culture - Final, Complete Yeast species 03/05/18 Urine Culture - Final, Complete NO GROWTH Assessment/Plan Assessment/Plan Assess & Plan/Chief Complaint Acute respiratory failure. COPD with acute exacerbation. Bipolar. Patient on BiPAP now. . 03/07/18. Acute respiratory failure. Patient on ventilator. Bipolar . . 03/08/18. Respiratory distress. Patient on ventilator. Bipolar. Patient resting comfortably this a.m.. . 03/11/18. Uterine chronic respiratory failure with tolerance. COPD with acute exacerbation. Pneumonia. Bipolar. Patient candidate for [facility]. Patient on vent . 03/12/18. Acute and chronic respiratory failure. COPD with acute exacerbation. Pneumonia. Bipolar. Patient be transferred to [facility] today. patient vent dependent Clinical Quality Measures Admission Status Admission Dx COPD with acute exacerbation. UTI. Pneumonia. Leukocytosis. Hypertension. Hyperlipidemia. Osteoarthritis arthritis. Bipolar DVT/VTE Risk/Contraindication: Risk Factor Score Per Nursin RFS Level Per Nursing on Admit: 4+=Very High JOCELYNE MEI DO Mar 12, 2018 07:50
[2018-03-12] MEDS: VANCOMYCIN 1250 MG/NS 250 ML IVPB IV SCH ×2 (08:07)
[2018-03-12] MEDS: meTOprolol TARTRATE 50 MG (LOPRESSOR) TAB NG SCH (08:07)
[2018-03-12] MEDS: LORATADINE (CLARITIN) 10 MG TAB PO SCH (08:08)
[2018-03-12] MEDS: methylPREDNISolone 40 MG/ML (Solu-MEDROL) VIAL IV SCH (08:08)
[2018-03-12] MEDS: VITAMIN D3 5,000 UNITS (CHOLECALCIFEROL ) CAPSULE PO SCH (08:08)
[2018-03-12] MEDS: PANTOPRAZOLE 40 MG (PROTONIX) VIAL IV SCH (08:08)
[2018-03-12] MEDS: ENOXAPARIN 40 MG/0.4 ML (LOVENOX) SYR SC SCH (08:08)
[2018-03-12] MEDS: BETAMETHASONE DIPRO (AUGMENTED) 0.05% OINT 15 GM TOP SCH (08:09)
[2018-03-12] MEDS: NICOTINE 14 MG (NICODERM) PATCH TD SCH (08:09)
[2018-03-12] MEDS: NICOTINE PATCH REMOVAL TP SCH (08:09)
[2018-03-12] MEDS ORDERED: METH40VI2 IV (08:13)
[2018-03-12] MEDS ORDERED: METO50TA15 NG (08:13)
[2018-03-12] MEDS ORDERED: HYDR20VI7 IJ (08:13)
[2018-03-12] MEDS ORDERED: ANID100V2 IV (08:13)
[2018-03-12] MEDS ORDERED: PANT40VI IV (08:13)
[2018-03-12] MEDS ORDERED: ENOX40DI13 SQ (08:13)
[2018-03-12] MEDS ORDERED: LABE5DIS IV (08:13)
[2018-03-12] MEDS ORDERED: VANC1.2514 IV (08:13)
[2018-03-12] MEDS ORDERED: PROP10VI48 IV (08:13)
[2018-03-12] MEDS ORDERED: PIPE4.5F IV (08:13)
[2018-03-12] MEDS: ANIDULAFUNGIN INJECTION 100 MG in NS (IVPB) 100 ML IV SCH (08:21)
--- NOTE | 2018-03-12 10:05 | Discharge Summary-Hospitalist ---
SAMANTHA COLLIER DO 03/12/18 1005: Diagnosis/Chief Complaint Date of Admission Mar 05, 2018 at 16:38 Date of Discharge Discharge Date: Mar 12, 2018 Discharge Diagnosis (1) Pulmonary edema Status: Acute (2) Ventilator dependent Status: Acute (3) Pneumonia Status: Acute (4) COPD exacerbation Status: Acute Discharge Summary Discharge Physical Exam Allergies: Coded Allergies: clindamycin (Unverified Allergy, Mild, HIVES, 11/21/09) meperidine (Unverified Allergy, Mild, HAS RECEIVED FENTANYL IN THE PAST, ) morphine (Unverified Allergy, Mild, 11/21/09) codeine (Verified Adverse Reaction, Unknown, NAUSEA, 11/21/09) Vitals & I&Os Vital Signs Date Time Temp Pulse Resp B/P (MAP) Pulse Ox O2 Delivery O2 Flow Rate FiO2 03/12/18 14:26 146/64 03/12/18 14:06 97 20 98 40 03/12/18 12:19 98.6 03/12/18 12:00 Mechanical Ventilator 03/12/18 12:00 40.00 General Appearance: No Apparent Distress, WD/WN, Chronically ill, Obese, Other (sedated) Respiratory: Lungs Clear, Normal Breath Sounds Skin: Normal Color, Warm/Dry Hospital Course Patient was admitted for pneumonia and slowly worsened requiring transfer to ICU 1 day later and failed biPAP so she was intubated on 03/07/18. Patient was placed on broad spectrum abx and maintained on AECOPD management by Dr Berman. Labs remained stable and overall had minimal improvement of her overall status giving rise to suspicion for ARDS so PEEP was increased slowly to 12 and oxygenation was adequate during entire ICI course. Due to lengthy recovery and long-term vent status she was deemed a [facility] candidate and she was accepted by Dr Childress to be managed with slow wean protocol. Labs (last 24 hrs) Microbiology 03/06/18 Blood Culture - Final, Complete No growth 03/06/18 Gram Stain - Final, Complete 03/06/18 Sputum Culture - Final, Complete Yeast species 03/05/18 Urine Culture - Final, Complete NO GROWTH Patient resulted labs reviewed. Pending Labs Discussion & Recommendations Discharge Planning: <30 minutes discharge planning Discharge Home Medications: Active Scripts Active Diprivan (Propofol) 10 Mg/1 Ml Vial 10 Mg IV UD 10 Days Solu-Medrol 40 mg Vial (Methylprednisolone Sod Succ/Pf) 40 Mg/1 Ml Vial 40 Mg IV Q12HR 10 Days Protonix IV (Pantoprazole Sodium) 40 Mg Vial 40 Mg IV BID 10 Days Metoprolol Tartrate 50 Mg Tablet 50 Mg NG BID 10 Days Labetalol HCl 20 Mg/4 Ml Syringe 4 Mg IV Q4H PRN 10 Days Hydralazine HCl 20 Mg/1 Ml Vial 10 Mg IJ Q6H PRN 10 Days Lovenox (Enoxaparin Sodium) 40 Mg/0.4 Ml Syringe 40 Mg SQ BID 10 Days Eraxis (Water Diluent) (Anidulafungin) 100 Mg Vial 100 Mg IV DAILY 10 Days Zosyn 4.5 gm/100 ml Galaxy Bag (Qtgrmvrlclvt-Atqs-Ngiashan,Iso) 4.5 Gm/100 Ml Froz.piggy 4.5 Gm IV Q8H 10 Days Vancomycin 1.25 Gram/250Ml-D5w (Vancomycin HCl in Dextrose 5 %) 1.25 Gm/250 Ml Plast..bag 1.25 Gm IV DAILY 10 Days Reported Zyprexa (Olanzapine) 20 Mg Tablet 40 Mg PO HS Tylenol (Acetaminophen) 325 Mg Tablet 650 Mg PO Q6H PRN Albuterol Sulfate 2.5 Mg/3 Ml Vial.neb 2.5 Mg IH QID Bevespi Aerosphere Inhaler (Glycopyrrolate/Formoterol Fum) 10.7 Gm Hfa.aer.ad 10.7 Gm IH BID Miralax (Polyethylene Glycol 3350) 17 Gm Powd.pack 17 Gm PO DAILY Vitamin D3 (Cholecalciferol (Vitamin D3)) 5,000 Unit Tablet 5,000 Unit PO DAILY Lipitor (Atorvastatin Calcium) 10 Mg Tablet 10 Mg PO HS Aricept (Donepezil HCl) 10 Mg Tablet 10 Mg PO HS Verapamil ER (Verapamil HCl) 180 Mg Tablet.er 180 Mg PO BID Toprol Xl (Metoprolol Succinate) 100 Mg Tab.er.24h 100 Mg PO DAILY Meloxicam 15 Mg Tablet 15 Mg PO DAILY Cyclobenzaprine HCl 10 Mg Tablet 10 Mg PO TID Cetirizine HCl 10 Mg Tablet 10 Mg PO DAILY Pepcid (Famotidine) 20 Mg Tablet 20 Mg PO BID Instructions to patient/family Please see electronic discharge instructions given to patient. Clinical Quality Measures DVT/VTE Risk/Contraindication: Risk Factor Score Per Nursin RFS Level Per Nursing on Admit: 4+=Very High SOUMYA WRIGHT MEDICAL STUDENT 03/13/18 1543: Diagnosis/Chief Complaint Discharge Time: 11:00 Discharge Diagnosis (1) Pneumonia Status: Acute (2) Acute on chronic respiratory failure Status: Chronic (3) COPD (chronic obstructive pulmonary disease) Status: Chronic (4) Ventilator dependent Status: Acute (5) Metabolic encephalopathy Status: Acute (6) Bipolar disorder Status: Chronic (7) Psoriasis Status: Chronic (8) UTI (urinary tract infection) Status: Resolved Discharge Summary Discharge Physical Exam Allergies: Coded Allergies: clindamycin (Unverified Allergy, Mild, HIVES, 11/21/09) meperidine (Unverified Allergy, Mild, HAS RECEIVED FENTANYL IN THE PAST, ) morphine (Unverified Allergy, Mild, 11/21/09) codeine (Verified Adverse Reaction, Unknown, NAUSEA, 11/21/09) Hospital Course Unable to wean off ventilator. Transferred to [facility] in [place]. Discussion & Recommendations Discharge Planning: >30 minutes discharge planning Pt is a 58 yo F who presented to the ER on 03/05 by EMS with chief complaint of SOB and wheezing. She has a history of COPD and does not use her albuterol inhaler but does use her nebulizer. She does not use oxygen or BiPAP at home. Found to have leukocytosis, pneumonia, UTI. Was admitted to [facility] [place] [place] for COPD exacerbation with BiPAP, Rocephin and azithromycin as well as Vapotherm. 03/06 her BiPAP was increase to 18/5 and abx changed to vanco/zosyn. Solumedrol added. Change IVF to NS without K+ to resolve hyperkalemia. Metabolic encephalopathy. Was transferred to ICU for additional care. 03/07 ABGs did not show much improvement. Patient consented to intubation for persistent respiratory failure. 03/10 Patient remains intubated. Acute on chronic respiratory failure with ARDS. Pneumonia with sepsis -- leukocytosis is improving and no fever since admission. Eraxis was added to vanco/zosyn. Fontaine cultures negative thus far except yeast in sputum. 03/11 Patient is not yet ready for weaning off ventilator. Vent settings 500/12/ 20/40%. [facility] evaluating patient for transfer. 03/12 Patient discharged to [facility] in [place] for care home ventilator care. Problem Qualifiers (1) Pulmonary edema: Chronicity: acute Qualified Codes: J81.0 - Acute pulmonary edema (2) Pneumonia: Pneumonia type: due to unspecified organism Laterality: unspecified laterality Lung location: unspecified part of lung Qualified Codes: J18.9 - Pneumonia, unspecified organism SAMANTHA COLLIER DO Mar 12, 2018 10:05 SOUMYA WRIGHT MEDICAL STUDENT Mar 13, 2018 15:43
[2018-03-12] MEDS: fentaNYL INJECTION 1,250 MCG in NS (IVPB) 250 ML IV SCH (10:27)
--- NOTE | 2018-03-13 07:27 | Discharge Summary ---
Diagnosis/Chief Complaint Date of Admission Mar 05, 2018 at 16:38 Date of Discharge Mar 12, 2018 at 14:30 Discharge Date: Mar 12, 2018 Discharge Time: 07:24 Discharge Diagnosis Acute and chronic respiratory failure. COPD with acute exacerbation.. Pneumonia Leukocytosis. Hypertension. Hyperlipidemia. Hyperkalemia. Bipolar. Psoriasis. Osteoarthritis. Unable to wean off ventilator Ration transfer to [facility] Visit Patient short of breath. Patient has history of COPD. Patient has COPD with acute exacerbation. Patient lives alone. Patient has bipolar. Patient has urinary incontinence and feel she has a UTI. 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 Patient emergency room White blood cell count 16,000. Patient put on Vapotherm Patient had Ifeanyi: Surgery for diverticulitis and was in coma for 2-1/2 months. Patient has psoriasis. Patient smokes less than one pack a day Discharge Summary Procedures Put on ventilator Consultations Pulmonology Discharge Physical Examination Allergies: Coded Allergies: clindamycin (Unverified Allergy, Mild, HIVES, 11/21/09) meperidine (Unverified Allergy, Mild, HAS RECEIVED FENTANYL IN THE PAST, ) morphine (Unverified Allergy, Mild, 11/21/09) codeine (Verified Adverse Reaction, Unknown, NAUSEA, 11/21/09) Vitals & I&Os Vital Signs Date Time Temp Pulse Resp B/P (MAP) Pulse Ox O2 Delivery O2 Flow Rate FiO2 03/12/18 14:26 146/64 03/12/18 14:06 97 20 98 40 03/12/18 12:19 98.6 03/12/18 12:00 Mechanical Ventilator 03/12/18 12:00 40.00 Hospital Course Patient unable to be weaned off ventilator. Patient transferred to [facility] Labs (last 24 hrs) Laboratory Tests 03/05/18 14:40: White Blood Count 16.8H, Red Blood Count 6.04H, Hemoglobin 14.2, Hematocrit 47, Mean Corpuscular Volume 78L, Mean Corpuscular Hemoglobin 24L, Mean Corpuscular Hemoglobin Concent 30L, Red Cell Distribution Width 21.0H, Platelet Count 459H, Mean Platelet Volume 10.0, Neutrophils (%) (Auto) 72, Lymphocytes (%) (Auto) 17 , Monocytes (%) (Auto) 9, Eosinophils (%) (Auto) 2, Basophils (%) (Auto) 0, Neutrophils # (Auto) 12.1H, Lymphocytes # (Auto) 2.8, Monocytes # (Auto) 1.4H, Eosinophils # (Auto) 0.4H, Basophils # (Auto) 0.1, Neutrophils % (Manual) 65, Lymphocytes % (Manual) 25, Monocytes % (Manual) 6, Eosinophils % (Manual) 4, Basophils % (Manual) 0, Band Neutrophils 0, Hypochromasia SLIGHT, Anisocytosis SLIGHT, Microcytosis SLIGHT, Erythrocyte Sedimentation Rate 1, Sodium Level 142 , Potassium Level 5.0, Chloride Level 103, Carbon Dioxide Level 31, Anion Gap 8 , Blood Urea Nitrogen 16, Creatinine 1.08, Estimat Glomerular Filtration Rate 52 , BUN/Creatinine Ratio 15, Glucose Level 116H, Calcium Level 9.4, Corrected Calcium 9.3, Total Bilirubin 0.3, Aspartate Amino Transf (AST/SGOT) 13, Alanine Aminotransferase (ALT/SGPT) 7, Alkaline Phosphatase 107, C-Reactive Protein High Sensitivity 1.25H, Total Protein 7.3, Albumin 4.1 03/05/18 15:20: Blood Gas Puncture Site RT RAD, Blood Gas Patient Temperature 97.4, Arterial Blood pH 7.30*L, Arterial Blood Partial Pressure CO2 69H, Arterial Blood Partial Pressure O2 114H, Arterial Blood HCO3 33H, Arterial Blood Total CO2 35.6H, Arterial Blood Oxygen Saturation 98, Arterial Blood Base Excess 7.0H, Merlin Test YES-POS, Blood Gas Ventilator Setting NO, Blood Gas Inspired Oxygen 5L 03/05/18 16:11: Urine Color AMBERH, Urine Clarity SLIGHTLY CLOUDY, Urine pH 5, Urine Specific Fitzwilliam 1.030H, Urine Protein 2+H, Urine Glucose (UA) NEGATIVE, Urine Ketones 1+ H, Urine Nitrite NEGATIVE, Urine Bilirubin 1+H, Urine Urobilinogen 4H, Urine Leukocyte Esterase 1+H, Urine RBC (Auto) NEGATIVE, Urine RBC NONE, Urine WBC 5- 10H, Urine Squamous Epithelial Cells 25-50H, Urine Crystals PRESENTH, Urine Calcium Oxalate Crystals MODERATEH, Urine Bacteria FEWH, Urine Casts NONE, Urine Mucus LARGEH, Urine Culture Indicated YES 03/05/18 16:38: Lab Scanned Report Referred Lab Report 03/05/18 16:49: D-Dimer 0.44 03/06/18 06:05: White Blood Count 15.1H, Red Blood Count 5.26, Hemoglobin 12.5, Hematocrit 43, Mean Corpuscular Volume 81, Mean Corpuscular Hemoglobin 24L, Mean Corpuscular Hemoglobin Concent 29L, Red Cell Distribution Width 20.1H, Platelet Count 323, Mean Platelet Volume 10.3, Neutrophils (%) (Auto) 67, Lymphocytes (%) (Auto) 21 , Monocytes (%) (Auto) 9, Eosinophils (%) (Auto) 4, Basophils (%) (Auto) 0, Neutrophils # (Auto) 10.2H, Lymphocytes # (Auto) 3.1, Monocytes # (Auto) 1.3H, Eosinophils # (Auto) 0.6H, Basophils # (Auto) 0.0, Sodium Level 141, Potassium Level 5.3H, Chloride Level 105, Carbon Dioxide Level 29, Anion Gap 7, Blood Urea Nitrogen 19H, Creatinine 1.13, Estimat Glomerular Filtration Rate 49, BUN/ Creatinine Ratio 17, Glucose Level 94, Calcium Level 8.6, B-Type Natriuretic Peptide < 10.0 03/06/18 06:54: Blood Gas Puncture Site RIGHT BRACHIAL, Blood Gas Patient Temperature 98.1, Arterial Blood pH 7.26*L, Arterial Blood Partial Pressure CO2 72*H, Arterial Blood Partial Pressure O2 68L, Arterial Blood HCO3 31H, Arterial Blood Total CO2 33.1H, Arterial Blood Oxygen Saturation 91L, Arterial Blood Base Excess 4.2H , Merlin Test NO, Blood Gas Ventilator Setting NO, Blood Gas Inspired Oxygen 20L 03/06/18 09:30: Urine Color YELLOW, Urine Clarity CLEAR, Urine pH 5, Urine Specific Fitzwilliam 1.020, Urine Protein NEGATIVE, Urine Glucose (UA) NEGATIVE, Urine Ketones NEGATIVE, Urine Nitrite NEGATIVE, Urine Bilirubin NEGATIVE, Urine Urobilinogen NORMAL, Urine Leukocyte Esterase NEGATIVE, Urine RBC (Auto) NEGATIVE, Urine RBC NONE, Urine WBC RARE, Urine Squamous Epithelial Cells 2-5, Urine Crystals NONE, Urine Bacteria TRACE, Urine Casts PRESENT, Urine Hyaline Casts 0-2H, Urine Mucus SMALLH, Urine Culture Indicated NO 03/06/18 11:10: Blood Gas Puncture Site RB, Blood Gas Patient Temperature 100.3, Arterial Blood pH 7.26*L, Arterial Blood Partial Pressure CO2 71*H, Arterial Blood Partial Pressure O2 82, Arterial Blood HCO3 30H, Arterial Blood Total CO2 32.4H, Arterial Blood Oxygen Saturation 93L, Arterial Blood Base Excess 3.9H, Merlin Test NA, Blood Gas Ventilator Setting NO, Blood Gas Inspired Oxygen 35% 03/06/18 14:18: White Blood Count 14.9H, Red Blood Count 5.03, Hemoglobin 12.0, Hematocrit 41, Mean Corpuscular Volume 81, Mean Corpuscular Hemoglobin 24L, Mean Corpuscular Hemoglobin Concent 29L, Red Cell Distribution Width 19.8H, Platelet Count 351, Mean Platelet Volume 10.0, Sodium Level 141, Potassium Level 5.6H, Chloride Level 106, Carbon Dioxide Level 29, Anion Gap 6, Blood Urea Nitrogen 17, Creatinine 0.94, Estimat Glomerular Filtration Rate > 60, BUN/Creatinine Ratio 18, Glucose Level 84, Calcium Level 8.7, Corrected Calcium 9.1, Phosphorus Level 3.6, Magnesium Level 2.2, Total Bilirubin 0.5, Aspartate Amino Transf (AST /SGOT) 8, Alanine Aminotransferase (ALT/SGPT) 6, Alkaline Phosphatase 92, Total Protein 5.9L, Albumin 3.5 03/06/18 15:10: Blood Gas Puncture Site L RAD, Blood Gas Patient Temperature 98.8, Arterial Blood pH 7.28*L, Arterial Blood Partial Pressure CO2 66H, Arterial Blood Partial Pressure O2 78L, Arterial Blood HCO3 30H, Arterial Blood Total CO2 31.8H , Arterial Blood Oxygen Saturation 94, Arterial Blood Base Excess 3.5H, Merlin Test YES-POS, Blood Gas Ventilator Setting NO, Blood Gas Inspired Oxygen 35% BIPAP 18/5 03/07/18 03:15: Blood Gas Puncture Site R RAD, Blood Gas Patient Temperature 98.7, Arterial Blood pH 7.29*L, Arterial Blood Partial Pressure CO2 62H, Arterial Blood Partial Pressure O2 95H, Arterial Blood HCO3 29H, Arterial Blood Total CO2 30.7 , Arterial Blood Oxygen Saturation 97, Arterial Blood Base Excess 2.8H, Merlin Test YES-POS, Blood Gas Ventilator Setting NO, Blood Gas Inspired Oxygen 35% BIPAP 03/07/18 03:31: White Blood Count 14.5H, Red Blood Count 4.89, Hemoglobin 11.5, Hematocrit 39, Mean Corpuscular Volume 81, Mean Corpuscular Hemoglobin 24L, Mean Corpuscular Hemoglobin Concent 29L, Red Cell Distribution Width 20.0H, Platelet Count 339, Mean Platelet Volume 9.8, Neutrophils (%) (Auto) 66, Lymphocytes (%) (Auto) 19, Monocytes (%) (Auto) 10, Eosinophils (%) (Auto) 4, Basophils (%) (Auto) 0, Neutrophils # (Auto) 9.6H, Lymphocytes # (Auto) 2.8, Monocytes # (Auto) 1.5H, Eosinophils # (Auto) 0.6H, Basophils # (Auto) 0.1, Sodium Level 142, Potassium Level 4.7, Chloride Level 109H, Carbon Dioxide Level 25, Anion Gap 8, Blood Urea Nitrogen 19H, Creatinine 1.00, Estimat Glomerular Filtration Rate 57, BUN/ Creatinine Ratio 19, Glucose Level 80, Calcium Level 8.8, Phosphorus Level 3.6, Magnesium Level 2.1 03/07/18 08:05: Vancomycin Level Trough 26.5*H 03/07/18 08:55: Blood Gas Puncture Site [facility], Blood Gas Patient Temperature 97.6, Arterial Blood pH 7.27*L, Arterial Blood Partial Pressure CO2 61H, Arterial Blood Partial Pressure O2 78L, Arterial Blood HCO3 27, Arterial Blood Total CO2 28.8, Arterial Blood Oxygen Saturation 95, Arterial Blood Base Excess 0.5, Merlin Test YES-POS, Blood Gas Ventilator Setting NO, Blood Gas Inspired Oxygen 60 03/07/18 14:35: Triglycerides Level 162H 03/07/18 17:55: Vancomycin Level Trough 18.9 03/08/18 03:10: White Blood Count 13.2H, Red Blood Count 4.74, Hemoglobin 11.2L, Hematocrit 37, Mean Corpuscular Volume 78L, Mean Corpuscular Hemoglobin 24L, Mean Corpuscular Hemoglobin Concent 30L, Red Cell Distribution Width 19.8H, Platelet Count 346, Mean Platelet Volume 9.9, Neutrophils (%) (Auto) 70, Lymphocytes (%) (Auto) 18, Monocytes (%) (Auto) 8, Eosinophils (%) (Auto) 5, Basophils (%) (Auto) 0, Neutrophils # (Auto) 9.2H, Lymphocytes # (Auto) 2.3, Monocytes # (Auto) 1.0, Eosinophils # (Auto) 0.6H, Basophils # (Auto) 0.1, Blood Gas Puncture Site [facility], Blood Gas Patient Temperature 97.6, Arterial Blood pH 7.33*L, Arterial Blood Partial Pressure CO2 51H, Arterial Blood Partial Pressure O2 68L, Arterial Blood HCO3 26, Arterial Blood Total CO2 27.6, Arterial Blood Oxygen Saturation 93L, Arterial Blood Base Excess 0.7, Merlin Test ART LINE, Blood Gas Ventilator Setting YES, Blood Gas Inspired Oxygen 45% FIO2, Sodium Level 141, Potassium Level 4.2, Chloride Level 108H, Carbon Dioxide Level 22, Anion Gap 11 , Blood Urea Nitrogen 19H, Creatinine 1.04, Estimat Glomerular Filtration Rate 54, BUN/Creatinine Ratio 18, Glucose Level 96, Calcium Level 8.5, Phosphorus Level 3.5, Magnesium Level 2.0 03/08/18 06:15: Vancomycin Level Trough 13.2, Magnesium Level 2.0 03/08/18 23:29: Glucometer 145H 03/09/18 04:00: White Blood Count 5.6, Red Blood Count 5.03, Hemoglobin 11.7, Hematocrit 39, Mean Corpuscular Volume 77L, Mean Corpuscular Hemoglobin 23L, Mean Corpuscular Hemoglobin Concent 30L, Red Cell Distribution Width 19.9H, Platelet Count 354, Mean Platelet Volume 9.6, Neutrophils (%) (Auto) 88H, Lymphocytes (%) (Auto) 11L , Monocytes (%) (Auto) 1, Eosinophils (%) (Auto) 0, Basophils (%) (Auto) 0, Neutrophils # (Auto) 4.9, Lymphocytes # (Auto) 0.6L, Monocytes # (Auto) 0.1, Eosinophils # (Auto) 0.0, Basophils # (Auto) 0.0, Blood Gas Puncture Site R RADIAL, Blood Gas Patient Temperature 97.7, Arterial Blood pH 7.35L, Arterial Blood Partial Pressure CO2 45, Arterial Blood Partial Pressure O2 62L, Arterial Blood HCO3 24, Arterial Blood Total CO2 25.6, Arterial Blood Oxygen Saturation 91L, Arterial Blood Base Excess -0.9, Merlin Test ARTLINE, Blood Gas Ventilator Setting YES, Blood Gas Inspired Oxygen 50%, Sodium Level 142, Potassium Level 4.0, Chloride Level 108H, Carbon Dioxide Level 20L, Anion Gap 14, Blood Urea Nitrogen 17, Creatinine 0.87, Estimat Glomerular Filtration Rate > 60, BUN/ Creatinine Ratio 20, Glucose Level 176H, Calcium Level 9.0, Phosphorus Level 3.7 , Magnesium Level 1.9, B-Type Natriuretic Peptide 52.3, Smear Scan 03/09/18 04:10: Gastric Fluid Occult Blood NEGATIVE 03/09/18 12:04: Glucometer 138H 03/09/18 16:20: Triglycerides Level 190H 03/09/18 17:52: Glucometer 103 03/09/18 23:56: Glucometer 122H 03/10/18 03:00: White Blood Count 14.0H, Red Blood Count 4.75, Hemoglobin 11.5, Hematocrit 36, Mean Corpuscular Volume 76L, Mean Corpuscular Hemoglobin 24L, Mean Corpuscular Hemoglobin Concent 32, Red Cell Distribution Width 19.7H, Platelet Count 335, Mean Platelet Volume 10.1, Neutrophils (%) (Auto) 89H, Lymphocytes (%) (Auto) 7L , Monocytes (%) (Auto) 4, Eosinophils (%) (Auto) 0, Basophils (%) (Auto) 0, Neutrophils # (Auto) 12.4H, Lymphocytes # (Auto) 1.0, Monocytes # (Auto) 0.6, Eosinophils # (Auto) 0.0, Basophils # (Auto) 0.0, Neutrophils % (Manual) 92, Lymphocytes % (Manual) 5, Monocytes % (Manual) 3, Blood Gas Puncture Site RT RADIAL, Blood Gas Patient Temperature 97.0, Arterial Blood pH 7.40, Arterial Blood Partial Pressure CO2 43, Arterial Blood Partial Pressure O2 57L, Arterial Blood HCO3 26, Arterial Blood Total CO2 27.8, Arterial Blood Oxygen Saturation 89L, Arterial Blood Base Excess 1.9, Merlin Test ARTLINE, Blood Gas Ventilator Setting YES, Blood Gas Inspired Oxygen 50, Sodium Level 140, Potassium Level 4.2 , Chloride Level 105, Carbon Dioxide Level 23, Anion Gap 12, Blood Urea Nitrogen 22H, Creatinine 1.01, Estimat Glomerular Filtration Rate 56, BUN/ Creatinine Ratio 22, Glucose Level 156H, Calcium Level 8.7, Phosphorus Level 4.0 , Magnesium Level 2.0 03/10/18 06:35: Vancomycin Level Trough 13.3 03/10/18 11:40: Glucometer 89 03/10/18 15:22: Glucometer 88 03/11/18 00:41: Glucometer 103 03/11/18 03:25: White Blood Count 19.7H, Red Blood Count 5.19, Hemoglobin 12.2, Hematocrit 40, Mean Corpuscular Volume 77L, Mean Corpuscular Hemoglobin 24L, Mean Corpuscular Hemoglobin Concent 31L, Red Cell Distribution Width 21.0H, Platelet Count 332, Mean Platelet Volume 10.2, Neutrophils (%) (Auto) 91H, Lymphocytes (%) (Auto) 5L , Monocytes (%) (Auto) 4, Eosinophils (%) (Auto) 0, Basophils (%) (Auto) 0, Neutrophils # (Auto) 17.9H, Lymphocytes # (Auto) 1.0, Monocytes # (Auto) 0.7, Eosinophils # (Auto) 0.1, Basophils # (Auto) 0.0, Sodium Level 139, Potassium Level 4.9, Chloride Level 107, Carbon Dioxide Level 22, Anion Gap 10, Blood Urea Nitrogen 25H, Creatinine 1.00, Estimat Glomerular Filtration Rate 57, BUN/ Creatinine Ratio 25, Glucose Level 118H, Calcium Level 8.7, Phosphorus Level 4.0 , Magnesium Level 2.4 03/11/18 04:40: Blood Gas Puncture Site L RADIAL, Blood Gas Patient Temperature 97.9, Arterial Blood pH 7.36L, Arterial Blood Partial Pressure CO2 48H, Arterial Blood Partial Pressure O2 69L, Arterial Blood HCO3 27, Arterial Blood Total CO2 27.9, Arterial Blood Oxygen Saturation 93L, Arterial Blood Base Excess 1.5, Merlin Test POSTIIVE, Blood Gas Ventilator Setting YES, Blood Gas Inspired Oxygen 50% 03/11/18 12:15: Glucometer 81 03/11/18 17:10: Triglycerides Level 277H 03/11/18 18:34: Glucometer 92 03/12/18 00:09: Glucometer 122H 03/12/18 03:49: Blood Gas Puncture Site L RADIAL, Blood Gas Patient Temperature 98.2, Arterial Blood pH 7.37, Arterial Blood Partial Pressure CO2 48H, Arterial Blood Partial Pressure O2 57L, Arterial Blood HCO3 27, Arterial Blood Total CO2 28.6, Arterial Blood Oxygen Saturation 88L, Arterial Blood Base Excess 2.3, Merlin Test POSITIVE, Blood Gas Ventilator Setting YES, Blood Gas Inspired Oxygen 30% 03/12/18 03:50: White Blood Count 15.6H, Red Blood Count 4.74, Hemoglobin 11.3L, Hematocrit 37, Mean Corpuscular Volume 78L, Mean Corpuscular Hemoglobin 24L, Mean Corpuscular Hemoglobin Concent 31L, Red Cell Distribution Width 20.5H, Platelet Count 314, Mean Platelet Volume 10.5H, Neutrophils (%) (Auto) 80H, Lymphocytes (%) (Auto) 11L, Monocytes (%) (Auto) 8, Eosinophils (%) (Auto) 0, Basophils (%) (Auto) 0, Neutrophils # (Auto) 12.5H, Lymphocytes # (Auto) 1.8, Monocytes # (Auto) 1.3H, Eosinophils # (Auto) 0.0, Basophils # (Auto) 0.0, Sodium Level 139, Potassium Level 4.8, Chloride Level 106, Carbon Dioxide Level 25, Anion Gap 8, Blood Urea Nitrogen 28H, Creatinine 0.88, Estimat Glomerular Filtration Rate > 60, BUN/ Creatinine Ratio 32, Glucose Level 128H, Calcium Level 8.5, Phosphorus Level 4.3 , Magnesium Level 2.3 03/12/18 12:07: Glucometer 118H Microbiology 03/06/18 Blood Culture - Final, Complete No growth 03/06/18 Gram Stain - Final, Complete 03/06/18 Sputum Culture - Final, Complete Yeast species 03/05/18 Urine Culture - Final, Complete NO GROWTH Laboratory Tests 03/05/18 14:40 03/06/18 06:05 03/06/18 14:18 03/07/18 03:31 03/08/18 03:10 03/09/18 04:00 03/10/18 03:00 03/11/18 03:25 03/12/18 03:50 Pending Labs Microbiology Date/Time Source Procedure Growth Status 03/06/18 08:44 Peripheral Rt Hand Blood Culture - Final No growth Complete 03/06/18 08:35 Peripheral Rt Forearm Blood Culture - Final No growth Complete 03/06/18 08:00 Sputum Transtracheal Aspirate Gram Stain - Final Complete 03/06/18 08:00 Sputum Culture - Final Yeast species Complete 03/05/18 16:11 Urine Clean Catch Urine Culture - Final NO GROWTH Complete Laboratory Tests 03/05/18 14:40: White Blood Count 16.8, Red Blood Count 6.04, Hemoglobin 14.2, Hematocrit 47, Mean Corpuscular Volume 78, Mean Corpuscular Hemoglobin 24, Mean Corpuscular Hemoglobin Concent 30, Red Cell Distribution Width 21.0, Platelet Count 459, Mean Platelet Volume 10.0, Neutrophils (%) (Auto) 72, Lymphocytes (%) (Auto) 17 , Monocytes (%) (Auto) 9, Eosinophils (%) (Auto) 2, Basophils (%) (Auto) 0, Neutrophils # (Auto) 12.1, Lymphocytes # (Auto) 2.8, Monocytes # (Auto) 1.4, Eosinophils # (Auto) 0.4, Basophils # (Auto) 0.1, Neutrophils % (Manual) 65, Lymphocytes % (Manual) 25, Monocytes % (Manual) 6, Eosinophils % (Manual) 4, Basophils % (Manual) 0, Band Neutrophils 0, Hypochromasia SLIGHT, Anisocytosis SLIGHT, Microcytosis SLIGHT, Erythrocyte Sedimentation Rate 1, Sodium Level 142 , Potassium Level 5.0, Chloride Level 103, Carbon Dioxide Level 31, Anion Gap 8 , Blood Urea Nitrogen 16, Creatinine 1.08, Estimat Glomerular Filtration Rate 52 , BUN/Creatinine Ratio 15, Glucose Level 116, Calcium Level 9.4, Corrected Calcium 9.3, Total Bilirubin 0.3, Aspartate Amino Transf (AST/SGOT) 13, Alanine Aminotransferase (ALT/SGPT) 7, Alkaline Phosphatase 107, C-Reactive Protein High Sensitivity 1.25, Total Protein 7.3, Albumin 4.1 03/05/18 15:20: Blood Gas Puncture Site RT RAD, Blood Gas Patient Temperature 97.4, Arterial Blood pH 7.30, Arterial Blood Partial Pressure CO2 69, Arterial Blood Partial Pressure O2 114, Arterial Blood HCO3 33, Arterial Blood Total CO2 35.6, Arterial Blood Oxygen Saturation 98, Arterial Blood Base Excess 7.0, Merlin Test YES-POS, Blood Gas Ventilator Setting NO, Blood Gas Inspired Oxygen 5L 03/05/18 16:11: Urine Color SANDRA, Urine Clarity SLIGHTLY CLOUDY, Urine pH 5, Urine Specific Fitzwilliam 1.030, Urine Protein 2+, Urine Glucose (UA) NEGATIVE, Urine Ketones 1+, Urine Nitrite NEGATIVE, Urine Bilirubin 1+, Urine Urobilinogen 4, Urine Leukocyte Esterase 1+, Urine RBC (Auto) NEGATIVE, Urine RBC NONE, Urine WBC 5-10 , Urine Squamous Epithelial Cells 25-50, Urine Crystals PRESENT, Urine Calcium Oxalate Crystals MODERATE, Urine Bacteria FEW, Urine Casts NONE, Urine Mucus LARGE, Urine Culture Indicated YES 03/05/18 16:38: Lab Scanned Report Referred Lab Report 03/05/18 16:49: D-Dimer 0.44 03/06/18 06:05: White Blood Count 15.1, Red Blood Count 5.26, Hemoglobin 12.5, Hematocrit 43, Mean Corpuscular Volume 81, Mean Corpuscular Hemoglobin 24, Mean Corpuscular Hemoglobin Concent 29, Red Cell Distribution Width 20.1, Platelet Count 323, Mean Platelet Volume 10.3, Neutrophils (%) (Auto) 67, Lymphocytes (%) (Auto) 21 , Monocytes (%) (Auto) 9, Eosinophils (%) (Auto) 4, Basophils (%) (Auto) 0, Neutrophils # (Auto) 10.2, Lymphocytes # (Auto) 3.1, Monocytes # (Auto) 1.3, Eosinophils # (Auto) 0.6, Basophils # (Auto) 0.0, Sodium Level 141, Potassium Level 5.3, Chloride Level 105, Carbon Dioxide Level 29, Anion Gap 7, Blood Urea Nitrogen 19, Creatinine 1.13, Estimat Glomerular Filtration Rate 49, BUN/ Creatinine Ratio 17, Glucose Level 94, Calcium Level 8.6, B-Type Natriuretic Peptide < 10.0 03/06/18 06:54: Blood Gas Puncture Site RIGHT BRACHIAL, Blood Gas Patient Temperature 98.1, Arterial Blood pH 7.26, Arterial Blood Partial Pressure CO2 72, Arterial Blood Partial Pressure O2 68, Arterial Blood HCO3 31, Arterial Blood Total CO2 33.1, Arterial Blood Oxygen Saturation 91, Arterial Blood Base Excess 4.2, Merlin Test NO, Blood Gas Ventilator Setting NO, Blood Gas Inspired Oxygen 20L 03/06/18 09:30: Urine Color YELLOW, Urine Clarity CLEAR, Urine pH 5, Urine Specific Fitzwilliam 1.020, Urine Protein NEGATIVE, Urine Glucose (UA) NEGATIVE, Urine Ketones NEGATIVE, Urine Nitrite NEGATIVE, Urine Bilirubin NEGATIVE, Urine Urobilinogen NORMAL, Urine Leukocyte Esterase NEGATIVE, Urine RBC (Auto) NEGATIVE, Urine RBC NONE, Urine WBC RARE, Urine Squamous Epithelial Cells 2-5, Urine Crystals NONE, Urine Bacteria TRACE, Urine Casts PRESENT, Urine Hyaline Casts 0-2, Urine Mucus SMALL, Urine Culture Indicated NO 03/06/18 11:10: Blood Gas Puncture Site RB, Blood Gas Patient Temperature 100.3, Arterial Blood pH 7.26, Arterial Blood Partial Pressure CO2 71, Arterial Blood Partial Pressure O2 82, Arterial Blood HCO3 30, Arterial Blood Total CO2 32.4, Arterial Blood Oxygen Saturation 93, Arterial Blood Base Excess 3.9, Merlin Test NA, Blood Gas Ventilator Setting NO, Blood Gas Inspired Oxygen 35% 03/06/18 14:18: White Blood Count 14.9, Red Blood Count 5.03, Hemoglobin 12.0, Hematocrit 41, Mean Corpuscular Volume 81, Mean Corpuscular Hemoglobin 24, Mean Corpuscular Hemoglobin Concent 29, Red Cell Distribution Width 19.8, Platelet Count 351, Mean Platelet Volume 10.0, Sodium Level 141, Potassium Level 5.6, Chloride Level 106, Carbon Dioxide Level 29, Anion Gap 6, Blood Urea Nitrogen 17, Creatinine 0.94, Estimat Glomerular Filtration Rate > 60, BUN/Creatinine Ratio 18, Glucose Level 84, Calcium Level 8.7, Corrected Calcium 9.1, Phosphorus Level 3.6, Magnesium Level 2.2, Total Bilirubin 0.5, Aspartate Amino Transf (AST /SGOT) 8, Alanine Aminotransferase (ALT/SGPT) 6, Alkaline Phosphatase 92, Total Protein 5.9, Albumin 3.5 03/06/18 15:10: Blood Gas Puncture Site L RAD, Blood Gas Patient Temperature 98.8, Arterial Blood pH 7.28, Arterial Blood Partial Pressure CO2 66, Arterial Blood Partial Pressure O2 78, Arterial Blood HCO3 30, Arterial Blood Total CO2 31.8, Arterial Blood Oxygen Saturation 94, Arterial Blood Base Excess 3.5, Merlin Test YES-POS, Blood Gas Ventilator Setting NO, Blood Gas Inspired Oxygen 35% BIPAP 18/5 03/07/18 03:15: Blood Gas Puncture Site R RAD, Blood Gas Patient Temperature 98.7, Arterial Blood pH 7.29, Arterial Blood Partial Pressure CO2 62, Arterial Blood Partial Pressure O2 95, Arterial Blood HCO3 29, Arterial Blood Total CO2 30.7, Arterial Blood Oxygen Saturation 97, Arterial Blood Base Excess 2.8, Merlin Test YES-POS, Blood Gas Ventilator Setting NO, Blood Gas Inspired Oxygen 35% BIPAP 03/07/18 03:31: White Blood Count 14.5, Red Blood Count 4.89, Hemoglobin 11.5, Hematocrit 39, Mean Corpuscular Volume 81, Mean Corpuscular Hemoglobin 24, Mean Corpuscular Hemoglobin Concent 29, Red Cell Distribution Width 20.0, Platelet Count 339, Mean Platelet Volume 9.8, Neutrophils (%) (Auto) 66, Lymphocytes (%) (Auto) 19, Monocytes (%) (Auto) 10, Eosinophils (%) (Auto) 4, Basophils (%) (Auto) 0, Neutrophils # (Auto) 9.6, Lymphocytes # (Auto) 2.8, Monocytes # (Auto) 1.5, Eosinophils # (Auto) 0.6, Basophils # (Auto) 0.1, Sodium Level 142, Potassium Level 4.7, Chloride Level 109, Carbon Dioxide Level 25, Anion Gap 8, Blood Urea Nitrogen 19, Creatinine 1.00, Estimat Glomerular Filtration Rate 57, BUN/ Creatinine Ratio 19, Glucose Level 80, Calcium Level 8.8, Phosphorus Level 3.6, Magnesium Level 2.1 03/07/18 08:05: Vancomycin Level Trough 26.5 03/07/18 08:55: Blood Gas Puncture Site ARTLINE, Blood Gas Patient Temperature 97.6, Arterial Blood pH 7.27, Arterial Blood Partial Pressure CO2 61, Arterial Blood Partial Pressure O2 78, Arterial Blood HCO3 27, Arterial Blood Total CO2 28.8, Arterial Blood Oxygen Saturation 95, Arterial Blood Base Excess 0.5, Merlin Test YES-POS, Blood Gas Ventilator Setting NO, Blood Gas Inspired Oxygen 60 03/07/18 14:35: Triglycerides Level 162 03/07/18 17:55: Vancomycin Level Trough 18.9 03/08/18 03:10: White Blood Count 13.2, Red Blood Count 4.74, Hemoglobin 11.2, Hematocrit 37, Mean Corpuscular Volume 78, Mean Corpuscular Hemoglobin 24, Mean Corpuscular Hemoglobin Concent 30, Red Cell Distribution Width 19.8, Platelet Count 346, Mean Platelet Volume 9.9, Neutrophils (%) (Auto) 70, Lymphocytes (%) (Auto) 18, Monocytes (%) (Auto) 8, Eosinophils (%) (Auto) 5, Basophils (%) (Auto) 0, Neutrophils # (Auto) 9.2, Lymphocytes # (Auto) 2.3, Monocytes # (Auto) 1.0, Eosinophils # (Auto) 0.6, Basophils # (Auto) 0.1, Blood Gas Puncture Site R CHILO, Blood Gas Patient Temperature 97.6, Arterial Blood pH 7.33, Arterial Blood Partial Pressure CO2 51, Arterial Blood Partial Pressure O2 68, Arterial Blood HCO3 26, Arterial Blood Total CO2 27.6, Arterial Blood Oxygen Saturation 93, Arterial Blood Base Excess 0.7, Merlin Test ART LINE, Blood Gas Ventilator Setting YES, Blood Gas Inspired Oxygen 45% FIO2, Sodium Level 141, Potassium Level 4.2, Chloride Level 108, Carbon Dioxide Level 22, Anion Gap 11, Blood Urea Nitrogen 19, Creatinine 1.04, Estimat Glomerular Filtration Rate 54, BUN/ Creatinine Ratio 18, Glucose Level 96, Calcium Level 8.5, Phosphorus Level 3.5, Magnesium Level 2.0 03/08/18 06:15: Vancomycin Level Trough 13.2, Magnesium Level 2.0 03/08/18 23:29: Glucometer 145 03/09/18 04:00: White Blood Count 5.6, Red Blood Count 5.03, Hemoglobin 11.7, Hematocrit 39, Mean Corpuscular Volume 77, Mean Corpuscular Hemoglobin 23, Mean Corpuscular Hemoglobin Concent 30, Red Cell Distribution Width 19.9, Platelet Count 354, Mean Platelet Volume 9.6, Neutrophils (%) (Auto) 88, Lymphocytes (%) (Auto) 11, Monocytes (%) (Auto) 1, Eosinophils (%) (Auto) 0, Basophils (%) (Auto) 0, Neutrophils # (Auto) 4.9, Lymphocytes # (Auto) 0.6, Monocytes # (Auto) 0.1, Eosinophils # (Auto) 0.0, Basophils # (Auto) 0.0, Blood Gas Puncture Site R RADIAL, Blood Gas Patient Temperature 97.7, Arterial Blood pH 7.35, Arterial Blood Partial Pressure CO2 45, Arterial Blood Partial Pressure O2 62, Arterial Blood HCO3 24, Arterial Blood Total CO2 25.6, Arterial Blood Oxygen Saturation 91, Arterial Blood Base Excess -0.9, Merlin Test ARTLINE, Blood Gas Ventilator Setting YES, Blood Gas Inspired Oxygen 50%, Sodium Level 142, Potassium Level 4.0, Chloride Level 108, Carbon Dioxide Level 20, Anion Gap 14, Blood Urea Nitrogen 17, Creatinine 0.87, Estimat Glomerular Filtration Rate > 60, BUN/ Creatinine Ratio 20, Glucose Level 176, Calcium Level 9.0, Phosphorus Level 3.7 , Magnesium Level 1.9, B-Type Natriuretic Peptide 52.3, Smear Scan 03/09/18 04:10: Gastric Fluid Occult Blood NEGATIVE 03/09/18 12:04: Glucometer 138 03/09/18 16:20: Triglycerides Level 190 03/09/18 17:52: Glucometer 103 03/09/18 23:56: Glucometer 122 03/10/18 03:00: White Blood Count 14.0, Red Blood Count 4.75, Hemoglobin 11.5, Hematocrit 36, Mean Corpuscular Volume 76, Mean Corpuscular Hemoglobin 24, Mean Corpuscular Hemoglobin Concent 32, Red Cell Distribution Width 19.7, Platelet Count 335, Mean Platelet Volume 10.1, Neutrophils (%) (Auto) 89, Lymphocytes (%) (Auto) 7, Monocytes (%) (Auto) 4, Eosinophils (%) (Auto) 0, Basophils (%) (Auto) 0, Neutrophils # (Auto) 12.4, Lymphocytes # (Auto) 1.0, Monocytes # (Auto) 0.6, Eosinophils # (Auto) 0.0, Basophils # (Auto) 0.0, Neutrophils % (Manual) 92, Lymphocytes % (Manual) 5, Monocytes % (Manual) 3, Blood Gas Puncture Site RT RADIAL, Blood Gas Patient Temperature 97.0, Arterial Blood pH 7.40, Arterial Blood Partial Pressure CO2 43, Arterial Blood Partial Pressure O2 57, Arterial Blood HCO3 26, Arterial Blood Total CO2 27.8, Arterial Blood Oxygen Saturation 89, Arterial Blood Base Excess 1.9, Merlin Test ARTLINE, Blood Gas Ventilator Setting YES, Blood Gas Inspired Oxygen 50, Sodium Level 140, Potassium Level 4.2 , Chloride Level 105, Carbon Dioxide Level 23, Anion Gap 12, Blood Urea Nitrogen 22, Creatinine 1.01, Estimat Glomerular Filtration Rate 56, BUN/ Creatinine Ratio 22, Glucose Level 156, Calcium Level 8.7, Phosphorus Level 4.0 , Magnesium Level 2.0 03/10/18 06:35: Vancomycin Level Trough 13.3 03/10/18 11:40: Glucometer 89 03/10/18 15:22: Glucometer 88 03/11/18 00:41: Glucometer 103 03/11/18 03:25: White Blood Count 19.7, Red Blood Count 5.19, Hemoglobin 12.2, Hematocrit 40, Mean Corpuscular Volume 77, Mean Corpuscular Hemoglobin 24, Mean Corpuscular Hemoglobin Concent 31, Red Cell Distribution Width 21.0, Platelet Count 332, Mean Platelet Volume 10.2, Neutrophils (%) (Auto) 91, Lymphocytes (%) (Auto) 5, Monocytes (%) (Auto) 4, Eosinophils (%) (Auto) 0, Basophils (%) (Auto) 0, Neutrophils # (Auto) 17.9, Lymphocytes # (Auto) 1.0, Monocytes # (Auto) 0.7, Eosinophils # (Auto) 0.1, Basophils # (Auto) 0.0, Sodium Level 139, Potassium Level 4.9, Chloride Level 107, Carbon Dioxide Level 22, Anion Gap 10, Blood Urea Nitrogen 25, Creatinine 1.00, Estimat Glomerular Filtration Rate 57, BUN/ Creatinine Ratio 25, Glucose Level 118, Calcium Level 8.7, Phosphorus Level 4.0 , Magnesium Level 2.4 03/11/18 04:40: Blood Gas Puncture Site L RADIAL, Blood Gas Patient Temperature 97.9, Arterial Blood pH 7.36, Arterial Blood Partial Pressure CO2 48, Arterial Blood Partial Pressure O2 69, Arterial Blood HCO3 27, Arterial Blood Total CO2 27.9, Arterial Blood Oxygen Saturation 93, Arterial Blood Base Excess 1.5, Merlin Test POSTIIVE , Blood Gas Ventilator Setting YES, Blood Gas Inspired Oxygen 50% 03/11/18 12:15: Glucometer 81 03/11/18 17:10: Triglycerides Level 277 03/11/18 18:34: Glucometer 92 03/12/18 00:09: Glucometer 122 03/12/18 03:49: Blood Gas Puncture Site L RADIAL, Blood Gas Patient Temperature 98.2, Arterial Blood pH 7.37, Arterial Blood Partial Pressure CO2 48, Arterial Blood Partial Pressure O2 57, Arterial Blood HCO3 27, Arterial Blood Total CO2 28.6, Arterial Blood Oxygen Saturation 88, Arterial Blood Base Excess 2.3, Merlin Test POSITIVE , Blood Gas Ventilator Setting YES, Blood Gas Inspired Oxygen 30% 03/12/18 03:50: White Blood Count 15.6, Red Blood Count 4.74, Hemoglobin 11.3, Hematocrit 37, Mean Corpuscular Volume 78, Mean Corpuscular Hemoglobin 24, Mean Corpuscular Hemoglobin Concent 31, Red Cell Distribution Width 20.5, Platelet Count 314, Mean Platelet Volume 10.5, Neutrophils (%) (Auto) 80, Lymphocytes (%) (Auto) 11 , Monocytes (%) (Auto) 8, Eosinophils (%) (Auto) 0, Basophils (%) (Auto) 0, Neutrophils # (Auto) 12.5, Lymphocytes # (Auto) 1.8, Monocytes # (Auto) 1.3, Eosinophils # (Auto) 0.0, Basophils # (Auto) 0.0, Sodium Level 139, Potassium Level 4.8, Chloride Level 106, Carbon Dioxide Level 25, Anion Gap 8, Blood Urea Nitrogen 28, Creatinine 0.88, Estimat Glomerular Filtration Rate > 60, BUN/ Creatinine Ratio 32, Glucose Level 128, Calcium Level 8.5, Phosphorus Level 4.3 , Magnesium Level 2.3 03/12/18 12:07: Glucometer 118 Discharge Home Medications: Active Scripts Active Diprivan (Propofol) 10 Mg/1 Ml Vial 10 Mg IV UD 10 Days Solu-Medrol 40 mg Vial (Methylprednisolone Sod Succ/Pf) 40 Mg/1 Ml Vial 40 Mg IV Q12HR 10 Days Protonix IV (Pantoprazole Sodium) 40 Mg Vial 40 Mg IV BID 10 Days Metoprolol Tartrate 50 Mg Tablet 50 Mg NG BID 10 Days Labetalol HCl 20 Mg/4 Ml Syringe 4 Mg IV Q4H PRN 10 Days Hydralazine HCl 20 Mg/1 Ml Vial 10 Mg IJ Q6H PRN 10 Days Lovenox (Enoxaparin Sodium) 40 Mg/0.4 Ml Syringe 40 Mg SQ BID 10 Days Eraxis (Water Diluent) (Anidulafungin) 100 Mg Vial 100 Mg IV DAILY 10 Days Zosyn 4.5 gm/100 ml Galaxy Bag (Brimttmibbnj-Hocz-Mgfomhcb,Iso) 4.5 Gm/100 Ml Froz.piggy 4.5 Gm IV Q8H 10 Days Vancomycin 1.25 Gram/250Ml-D5w (Vancomycin HCl in Dextrose 5 %) 1.25 Gm/250 Ml Plast..bag 1.25 Gm IV DAILY 10 Days Reported Zyprexa (Olanzapine) 20 Mg Tablet 40 Mg PO HS Tylenol (Acetaminophen) 325 Mg Tablet 650 Mg PO Q6H PRN Albuterol Sulfate 2.5 Mg/3 Ml Vial.neb 2.5 Mg IH QID Bevespi Aerosphere Inhaler (Glycopyrrolate/Formoterol Fum) 10.7 Gm Hfa.aer.ad 10.7 Gm IH BID Miralax (Polyethylene Glycol 3350) 17 Gm Powd.pack 17 Gm PO DAILY Vitamin D3 (Cholecalciferol (Vitamin D3)) 5,000 Unit Tablet 5,000 Unit PO DAILY Lipitor (Atorvastatin Calcium) 10 Mg Tablet 10 Mg PO HS Aricept (Donepezil HCl) 10 Mg Tablet 10 Mg PO HS Verapamil ER (Verapamil HCl) 180 Mg Tablet.er 180 Mg PO BID Toprol Xl (Metoprolol Succinate) 100 Mg Tab.er.24h 100 Mg PO DAILY Meloxicam 15 Mg Tablet 15 Mg PO DAILY Cyclobenzaprine HCl 10 Mg Tablet 10 Mg PO TID Cetirizine HCl 10 Mg Tablet 10 Mg PO DAILY Pepcid (Famotidine) 20 Mg Tablet 20 Mg PO BID Instructions to patient/family Please see electronic discharge instructions given to patient. Clinical Quality Measures DVT/VTE Risk/Contraindication: Risk Factor Score Per Nursin RFS Level Per Nursing on Admit: 4+=Very High JOCELYNE MEI DO Mar 13, 2018 07:27
== END 2018-03-12 14:30 | DRG 207 ==
LOC: EDUNIT# 14:18 → ER 14:19 → 4TH 16:38 → ICU 03-06 08:10
PROVIDERS: ADMIT Family Medicine; ATTEND Family Medicine
PROC: 5A1955Z Respiratory Ventilation, Greater than 96 Consecutive Hours (ICD-10-PCS; principal; 2018-03-07)
DX: J44.1 Chronic obstructive pulmonary disease with (acute) exacerbation (principal); J44.0 Chronic obstructive pulmonary disease with (acute) lower respiratory infection; J18.9 Pneumonia, unspecified organism; N39.0 Urinary tract infection, site not specified; I47.1 Supraventricular tachycardia; J95.822 Acute and chronic postprocedural respiratory failure; A41.9 Sepsis, unspecified organism; G93.41 Metabolic encephalopathy; J81.0 Acute pulmonary edema; J80 Acute respiratory distress syndrome; Z99.11 Dependence on respirator [ventilator] status; E87.5 Hyperkalemia; I25.10 Atherosclerotic heart disease of native coronary artery without angina pectoris; I10 Essential (primary) hypertension; E78.00 Pure hypercholesterolemia, unspecified; E03.9 Hypothyroidism, unspecified; L93.0 Discoid lupus erythematosus; M25.461 Effusion, right knee; M19.91 Primary osteoarthritis, unspecified site; L40.0 Psoriasis vulgaris; F17.210 Nicotine dependence, cigarettes, uncomplicated; K21.9 Gastro-esophageal reflux disease without esophagitis; K44.9 Diaphragmatic hernia without obstruction or gangrene; G43.909 Migraine, unspecified, not intractable, without status migrainosus; F41.9 Anxiety disorder, unspecified; F31.9 Bipolar disorder, unspecified; F60.9 Personality disorder, unspecified; Z87.11 Personal history of peptic ulcer disease; Z90.49 Acquired absence of other specified parts of digestive tract
CPT/HCPCS: 36415; 36600; 71045; 80048; 80053; 80202; 81000; 82271; 82805; 82962; 83735; 83880; 84100; 84478; 85007; 85025; 85027; 85379; 85652; 86141; 87040; 87070; 87088; 87205; 94002; 94003; 94640; 94660; 94760; 94799; 96365

== ENCOUNTER 2018-05-17 14:10 | Inpatient (IN) | payer MEDICARE ==
[~2018-05-17] VITALS: Ht 165.1 cm; Wt 102.1 kg
[2018-05-17 14:10] VITALS: BP 181/79
[~2018-05-17 14:10] MED LIST changes: +ACET325T38 PO; +ALBU2.5V4 NEB; +ANID100V2 IV; +ATOR10TA PO; +CHOL500044 PO; +DONE10TA12 PO; +ENOX40DI13 SQ; +GLYC10.7 IH; +HYDR20VI7 IJ; +LABE5DIS IV; +METH40VI2 IV; +METO100T6 PO; +METO50TA15 NG; +OLAN20TA3 PO; +PANT40VI IV; +PIPE4.5F IV; +POLY17PO6 PO; +PROP10VI48 IV; +VANC1.2514 IV; +VERA180T5 PO
--- NOTE | 2018-05-17 14:10 | NUR ---
CALEB ANDERSEN admitted to room 233-1, with an admitting diagnosis of MYOPATHY, on 05/17/18 from [facility] via [facility], accompanied by STAFF. CALEB ANDERSEN introduced to surroundings, call light, bed controls, phone, TV, temperature control, lights, meal times, smoking policy, visitor policy, side rail policy, bathrooms and showers. Patient Rights given to patient in the handbook.CALEB ANDERSEN verbalizes understanding that [facility] is not responsible for the loss or damage to any personal effects or valuables that are kept in the patients posession during their hospitalization. The following Patient Care Plans were discussed with the PT: Discharge Planning, IMPAIRED MOBILITY AND RESPIRATORY DISTRESS. O2 ON AT 3L. TRACH CAPPED. COMPLAIN BILATERAL SHOULDER PAIN.
[2018-05-17] MEDS ORDERED: ARTIFICAL TEARS 0.4 ML UNIT DOSE (REFRESH PLUS) OU PRN (14:30)
[2018-05-17] MEDS ORDERED: ACETAMINOPHEN 325 MG TABLET PO PRN (14:30)
[2018-05-17] MEDS ORDERED: POLYETHYLENE GLYCOL 17 GM (MIRALAX) PACK PO PRN (14:30)
[2018-05-17] MEDS ORDERED: NON-FORMULARY MEDICATION 1 EA EA PO SCH ×2 (14:45→21:00)
--- NOTE | 2018-05-17 15:08 | Occupational Therapy Eval ---
OT Evaluation-General/PLF Medical Diagnosis Admission Date May 17, 2018 at 14:10 Medical Diagnosis: disus myopathy Onset Date: Mar 05, 2018 Therapy Diagnosis Therapy Diagnosis: decr self care, weakness, decr func mob, decr act kirby Height/Weight Height (Feet): 5 Height (Inches): 5.00 Weight (Pounds): 244 Weight (Ounces): 9.6 Precautions Precautions/Isolations: Standard Precautions Referral Physician: Rafiq Referral Reason: Evaluation/Treatment Medical History Pertinent Medical History: CAD, COPD, GERD, Hypothroidism, OA, Smoking Additional Medical History V tach. chronic edema. Migraine. Peptic ulcer. Hiatal hernia. Lupus. Anxiety disorder, personality disorder, bipolar. stress incontinence. Psoriasis. Diverticular disease. Morbid obesity. Lumpectomy R breast. Colectomy, colostomy , coma for 2.5 months in 2009. Pneumonia Current History Admitted to [facility] on 03-05-18 with respiratory failure. On mechanical vent. Transferred to [facility]. Has had trach (still in) and PEG (out). Reviewed History: Yes Social History Home: Apartment Current Living Status: Alone Entry Into Home: Level Entry ADL-Prior Level of Function Therapy Code Descriptions/Definitions Functional [place] Measure: 0=Not Assessed/NA 4=Minimal Assistance 1=Total Assistance 5=Supervision or Setup 2=Maximal Assistance 6=Modified [place] 3=Moderate Assistance 7=Complete [place] Therapy Quality Codes: 6 Independent with activity with or without an assistive device 5 Patient requires set up or clean up by helper. Patient completes activity by themselves 4 Supervision or touching assist (CGA). [place] provide cues , steadying assist 3 The helper provides less than half the effort to complete the activity 2 The helper provides more than half the effort to complete the activity 1 Dependent. The helper does all the effort to complete an activity 7 Patient refused to complete or attempt activity 9 The patient did not perform the activity before the current illness or injury 88 Not attempted due to Medical conditions or safety concerns Functional Abilities and Goals: Independent: Patient completed the activities by him/herself, with or without an assistive device, with no assistance from a helper. Needed Some Help: Patient needed partial assistance from another person to complete activities. Dependent: A helper completed the activities for the patient. Unknown: Not Applicable: ADL PLOF Comments Pt reported that she was previously able to manage all of her basic ADLs. 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 Self Care: Independent Functional Cognition: Independent DME/Equipment: Grab Bars, Tub/Shower (with curtain) OT Current Status Subjective Pt seen in room, up in w/c, agreeable to OT. 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 Appearance Alert, cooperative Mental Status/Objective Patient Orientation: Person, Place, Time, Situation Attachments: Other-See Comments (trach) Current Glasses/Contacts: Yes Hearing Aids: No Dentures/Partials: No Hand Dominance: Right Upper Extremity ROM L shoulder active approx 45 degrees, R shoulder active approx 30 degrees ( passive 80-90 degrees). Rest of UEs grossly WFL. Upper Extremity Strength Grossly 3+/5 bilat. Tremors observed which pt reported are new to her. ADL-Treatment ADL-Current Pt required transfer from / via art sling. She said that she has stood about 6 times and required max assist of two people. ADLs to follow. Per notes from [facility], bed mobility and ADLs impaired, decr activity tolerance Education OT Patient Education: Purpose of tx/functional activities, Rehab process Teaching Recipient: Patient Teaching Methods: Discussion Response to Teaching: Verbalize Understanding OT Short Term Goals Short Term Goals Time Frame: May 24, 2018 Eating(FIM): 5 Grooming(FIM): 5 Bathing(FIM): 3 Upper Body Dressing(FIM): 5 Lower Body Dressing(FIM): 2 Toileting(FIM): 1 (one person) Toilet/Commode Transfer(FIM): 1 (one person) Additional Short Term Goals: 1-Demonstrate ADL Tasks, 2-Verbalize Understanding , 3-ImproveStrength/Fede 1=Demonstrate adherence to instructed precautions during ADL tasks. 2=Patient will verbalize/demonstrate understanding of assistive devices/ modifications for ADL. 3=Patient will improve strength/tolerance for activity to enable patient to perform ADL's. OT Manager Legal Goals Manager Legal Goals Time Frame: Jun 07, 2018 Eating (FIM): 7 Eating (QC): 6 Groomin Oral Hygiene (QC): 6 Bathing(FIM): 5 Shower/Bathe Self (QC): 5 Upper Body Dressing(FIM): 6 Upper Body Dressing (QC): 6 Lower Body Dressing(FIM): 6 Lower Body Dressing (QC): 6 On/Off Footwear (QC): 6 Toileting(FIM): 6 Toileting Hygiene (QC): 6 Toilet/Commode Transfer(FIM): 6 Toilet/Commode Transfer (QC): 6 Shower Transfer(FIM): 6 Additional Goals: 1-Demonstrate ADL Tasks, 2-Verbalize Understanding, 3- ImproveStrength/Fede 1=Demonstrate adherence to instructed precautions during ADL tasks. 2=Patient will verbalize/demonstrate understanding of assistive devices/ modifications for ADL. 3=Patient will improve strength/tolerance for activity to enable patient to perform ADL's. OT Education/Plan Problem List/Assessment Assessment: Decreased Activ Tolerance, Decreased UE Strength, Dependent Transfers, Impaired Bed Mobility, Impaired Funct Balance, Impaired Self-Care Skills, Restricted Funct UE ROM Pt would benefit from skilled OT to increase her independence in basic self care to allow her to safely return to her home Discharge Recommendations Plan/Recommendations: Continue POC Treatment Plan/Plan of Care Treatment,Training & Education: Yes Patient would benefit from OT for education, treatment and training to promote independence in ADL's, mobility, safety and/or upper extremity function for ADL' s. Plan of Care: ADL Retraining, Functional Mobility, Group Exercise/Act as Ind ( education, exercise, activity tolerance, funct mobility, funtional actiities), UE Funct Exercise/Act, UE Neuromus Re-Ed/Coord, W/C Management Training, OTHER ( energy conservation education) Treatment Duration: Jun 07, 2018 Frequency: At least 5 of 7 days/Wk (IRF) Estimated Hrs Per Day: 1.5 hours per day Agreement: Yes Rehab Potential: Fair Time/GCodes Start Time: 14:35 Stop Time: 14:50 Total Time Billed (hr/min): 15 Billed Treatment Time visit, 15 minutes evaluation high intensity JOE FIGUEROA OT May 17, 2018 15:08
--- NOTE | 2018-05-17 16:00 | NUR ---
AIR BED OBTAINED FOR PATIENT. WAS INFORMED BY LANDMARK WINDROWER OPERATOR THAT TRACH WAS TO BE DECANNULATED HERE. RT STATES WE DO NOT HAVE THE RIGHT SUPPLIES AND BEING ORDERED - SHOULD BE HERE SUNDAY.
--- NOTE | 2018-05-17 16:02 | Physical Therapy Evaluation ---
PT Evaluation-General Medical Diagnosis Admission Date May 17, 2018 at 14:10 Medical Diagnosis: disuse myopathy Onset Date: Mar 05, 2018 Therapy Diagnosis Therapy Diagnosis: impaired mobility, strength, endurance Height/Weight Height (Feet): 5 Height (Inches): 5.00 Weight (Pounds): 244 Weight (Ounces): 9.6 Precautions Precautions/Isolations: Standard Precautions Referral Physician: Rafiq Reason for Referral: Evaluation/Treatment Medical History Pertinent Medical History: CAD, COPD, GERD, Hypothroidism, OA, Smoking Additional Medical History V tach. chronic edema. Migraine. Peptic ulcer. Hiatal hernia. Lupus. Anxiety disorder, personality disorder, bipolar. stress incontinence. Psoriasis. Diverticular disease. Morbid obesity. Lumpectomy R breast. Colectomy, colostomy , coma for 2.5 months in 2009. Pneumonia Current History Admitted to [facility] on 03-05-18 with respiratory failure. On mechanical vent. Transferred to [facility]. Has had trach (still in) and PEG (out). Reviewed History: Yes Social History Home: Apartment Current Living Status: Alone Entry Into Home: Level Entry Prior/Core FIM Prior Level of Function Therapy Code Descriptions/Definitions Functional [place] Measure: 0=Not Assessed/NA 4=Minimal Assistance 1=Total Assistance 5=Supervision or Setup 2=Maximal Assistance 6=Modified [place] 3=Moderate Assistance 7=Complete [place] Therapy Quality Codes: 6 Independent with activity with or without an assistive device 5 Patient requires set up or clean up by helper. Patient completes activity by themselves 4 Supervision or touching assist (CGA). [place] provide cues , steadying assist 3 The helper provides less than half the effort to complete the activity 2 The helper provides more than half the effort to complete the activity 1 Dependent. The helper does all the effort to complete an activity 7 Patient refused to complete or attempt activity 9 The patient did not perform the activity before the current illness or injury 88 Not attempted due to Medical conditions or safety concerns Functional Abilities and Goals: Independent: Patient completed the activities by him/herself, with or without an assistive device, with no assistance from a helper. Needed Some Help: Patient needed partial assistance from another person to complete activities. Dependent: A helper completed the activities for the patient. Unknown: Not Applicable: Bed Mobility: 7 Transfers (B,C,W/C) (FIM): 7 Gait: 7 Stairs: 7 Indoor Mobility (Ambulation): Independent Stairs: Independent Prior Devices Use: None PT Evaluation-Current Subjective Patient in wheelchair pre tx, agrees to PT, has 9/10 pain in her left shoulder. Will be co-treating with OT after PT evaluation. Patient has a mary jo sling beneath her. She states she doesn't think she will be able to stand. Pt/Family Goals to be independent at home Objective Patient Orientation: Person, Place, Situation Attachments: Oxygen 3L of O2 nasal canula ROM/Strength ROM Lower Extremities WNL Strenght Lower Extremities right lower extremity (hip flexion 3/5, knee flexion 3/5, knee extension 3/5, dorsiflexion 4/5), left lower extremity (hip flexion 3/5, knee flexion 3/5, knee extension 3/5, dorsiflexion 4/5) Integumentary/Posture Integumentary swelling left leg Sensory Vision: Functional Hand Dominance: Right Sensation Right Lower Extremit: Intact Sensation Left Lower Extremity: Intact Transfers Therapy Code Descriptions/Definitions Functional [place] Measure: 0=Not Assessed/NA 4=Minimal Assistance 1=Total Assistance 5=Supervision or Setup 2=Maximal Assistance 6=Modified [place] 3=Moderate Assistance 7=Complete [place] Therapy Quality Codes: 6 Independent with activity with or without an assistive device 5 Patient requires set up or clean up by helper. Patient completes activity by themselves 4 Supervision or touching assist (CGA). [place] provide cues , steadying assist 3 The helper provides less than half the effort to complete the activity 2 The helper provides more than half the effort to complete the activity 1 Dependent. The helper does all the effort to complete an activity 7 Patient refused to complete or attempt activity 9 The patient did not perform the activity before the current illness or injury 88 Not attempted due to Medical conditions or safety concerns Transfers (B, C, W/C) (FIM): 1 Scootin Rollin Roll Left to Right (QC): 3 Supine to/from Sit: 4 Sit to/from Stand: 2 bed t/f WC(FIM only if WC use): 1 Sit to Lying (QC): 3 Lying to Sitting/Side of Bed(Q: 3 Sit to Stand (QC): 2 Chair/Scs-zu-Awocf Xfer(QC): 1 Car Transfer (QC): 1 Patient performs bed mobility with min assist, supine <-> sit with min assist, mary jo for transfers, sit <-> stand with max assist of 2. Patient was not able to stand from the transport wheelchair in order to get into a wheelchair from this facility. A mary jo lift had to be used. Patient states that she was very tired and her legs felt "weird" and she didn't think she could stand. Standing was attempted but she would not do it even with assist of 3 people. Mary Jo was used. Later in the parallel bars she was able to stand x3 with max assist of 2 people for about 1 min each time. Finally, when getting back to be she states she would probably be able to perform a stand pivot transfer instead of using a mary jo and she did it with max assist of 2. Gait Does the Patient Walk?: No and Walking Goal IS indicated Mode of Locomotion: Both Anticipated Mode of Locomotion: Both Gait (FIM): 0 Walk 10 feet (QC): 88 Walk 50 ft with 2 Turns(QC): 88 Walk 150 ft (QC): 88 Walking 10ft/uneven surface-QC: 88 Wheelchair Training Does the Pt Use a Wheelchair?: Yes Wheelchair (FIM): 1 Type of Wheelchair: Manual Patient does not have the arm strength or shoulder ROM to propel a manual wheelchair at this time Stairs Stairs (FIM): 0 If not tested on admit;explain patient not ambulatory Balance Sitting Static: Good Sitting Dynamic: Good Standing Static: Poor Standing Dynamic: Poor Treatment LE exercises x20: LAQ, AP, hip flexion, hip abd with pillow, hip add with RTB Assessment/Needs Patient has impairments in mobility, strength, endurance. She is non- ambulatory at this time. Rehab Potential: Guarded PT Short Term Goals Short Term Goals Time Frame: May 24, 2018 Transfers (B,C,W/C) (FIM): 3 Gait (FIM): 1 Gait Distance Comment: 5' Gait Level of Assist: 4 Gait Assistive Device: Parallel Bars Wheelchair (FIM): 1 Wheelchair Distance: 20' PT Meat Cutting Block Repairer Goals Meat Cutting Block Repairer Goals PT Detention Goals Time Frame: Jun 07, 2018 Transfers (B,C,W/C) (FIM): 4 Sit to Lying (QC): 4 Lying-Sitting on Side/Bed(QC): 4 Sit to Stand (QC): 4 Rollin Roll Left to Right (QC): 4 Chair/Rzb-oe-Werwf Xfer(QC): 3 Car Transfer (QC): 3 Gait (FIM): 1 Distance: 20' Walk 10 feet (QC): 4 Gait Level of Assist: 4 Gait Assistive Device: FWW Wheelchair (FIM): 2 Distance: 50' Wheelchair Level of Assist: 5 Wheel 50 feet with 2 turns (QC: 4 PT Plan Problem List Problem List: Activity Tolerance, Functional Strength, Safety, Balance, Gait, Transfer, Bed Mobility, ROM Treatment/Plan Treatment Plan: Continue Plan of Care Treatment Plan: Bed Mobility, Concurrent Therapy, Education, Functional Activity Fede, Functional Strength, Group Therapy, Gait, Safety, Therapeutic Exercise, Transfers Treatment Duration: Jun 07, 2018 Frequency: At least 5 of 7 days/Wk (IRF) Estimated Hrs Per Day: 1.5 hours per day Patient and/or Family Agrees t: Yes Safety Risks/Education Patient Education: Transfer Techniques, Correct Positioning, W/C Management, Safety Issues Teaching Recipient: Patient Teaching Methods: Demonstration, Discussion Response to Teaching: Reinforcement Needed Discharge Recommendations Plan Patient will perform bed mobility and transfer training, balance and endurance training, functional strengthening, gait training, and education, to improve functional mobility and independence at home Therapy D/C Recommendations: Home w/ Family Support, Longterm (TCU/NH) Time/GCodes Time In: 1410 Time Out: 1555 Total Billed Treatment Time: 90 Total Billed Treatment 1 visit EVH 25' EX 15' FA 50' PT performed evaluation from [id number] for 25 min. OT performed evaluation from [id number] for 15 min. PT and OT co-treated from [id number] for 65 min. PT performed bed mobility and transfer training, LE strengthening, standing, positioning and safety during ADLs'. OT assisted with mobility and performed ADL's and UE exercises. CLAU SALAZAR PT May 17, 2018 16:02
--- NOTE | 2018-05-17 16:04 | Occupational Ther Daily Note ---
OT Current Status-Daily Note Subjective Pt sitting in w/c, agrees to therapy. Mental Status/Objective Therapy Code Descriptions/Definitions Functional [place] Measure: 0=Not Assessed/NA 4=Minimal Assistance 1=Total Assistance 5=Supervision or Setup 2=Maximal Assistance 6=Modified [place] 3=Moderate Assistance 7=Complete [place] Attachments: Oxygen (3L) ADL-Treatment Co-treat with PT secondary to impaired mobility, strength, and activity tolerance requiring two skilled therapists. Pt completed sponge bath while seated in w/c. Pt able to wash face, arms, and chest, but requires assist for other areas. Pt able to thread bilateral UE into shirts sleeves, but requires assist to casing puller head and pull down in back secondary to decreased UE ROM. Dependent for socks. Grooming tasks completed seated at sink. Pt able to open toothpaste and place on toothbrush. Pt then able to brush teeth with SBA. Pt's hair is up in a ponytail, but pt states she is unable to comb it and thinks she may have to cut it secondary to severe tangles in the back. To therapy gym via w/c. Pt stood x3 trials in parallel bars to increase transfer ability and activity tolerance. Pt required max assist x2 for sit to stand. Rest breaks between standing trials secondary to fatigue. Pt performed bilateral UE AROM exercises to increase ROM and strength needed for functional tasks. Pt performed shoulder ROM to tolerance. Elbow and forearm AROM x20 reps. Bilateral hand graphic pre press trades worker exercises x20 reps with minimal resistance therapy foam to increase graphic pre press trades worker strength. Pt returned to room and stated she would like to try a stand pivot transfer to EOB. Pt transferred with max assist x2. Sit to supine with minimal assistance. Pt required assist to scoot to HOB. Pt resting in bed with needs met after session. Co-treat with PT during session. OT focusing on ADL completion, UE management and exercises, and safety during functional tasks. PT focusing on balance, mobility, and LE management. Therapy Code Descriptions/Definitions Functional [place] Measure: 0=Not Assessed/NA 4=Minimal Assistance 1=Total Assistance 5=Supervision or Setup 2=Maximal Assistance 6=Modified [place] 3=Moderate Assistance 7=Complete [place] Therapy Quality Codes: 6 Independent with activity with or without an assistive device 5 Patient requires set up or clean up by helper. Patient completes activity by themselves 4 Supervision or touching assist (CGA). [place] provide cues , steadying assist 3 The helper provides less than half the effort to complete the activity 2 The helper provides more than half the effort to complete the activity 1 Dependent. The helper does all the effort to complete an activity 7 Patient refused to complete or attempt activity 9 The patient did not perform the activity before the current illness or injury 88 Not attempted due to Medical conditions or safety concerns Eating (FIM): 5 (Pt reports feeding herself after set up for opening containers ) Eating (QC): 5 Grooming (FIM): 3 Oral Hygiene (QC): 4 Bathing (FIM): 2 Shower/Bathe Self (QC): 2 Upper Body (FIM): 2 Lower Body Dressing (FIM): 1 Lower Body Dressing (QC): 1 On/Off Footwear (QC): 1 Shower Transfer(FIM): 0 OT Short Term Goals Short Term Goals Time Frame: May 24, 2018 Eating(FIM): 5 Grooming(FIM): 5 Bathing(FIM): 3 Upper Body Dressing(FIM): 5 Lower Body Dressing(FIM): 2 Toileting(FIM): 1 (one person) Toilet/Commode Transfer(FIM): 1 (one person) Additional Short Term Goals: 1-Demonstrate ADL Tasks, 2-Verbalize Understanding , 3-ImproveStrength/Fede 1=Demonstrate adherence to instructed precautions during ADL tasks. 2=Patient will verbalize/demonstrate understanding of assistive devices/ modifications for ADL. 3=Patient will improve strength/tolerance for activity to enable patient to perform ADL's. OT Longterm Goals Inhalation Therapy Aides Teacher Goals Time Frame: Jun 07, 2018 Eating (FIM): 7 Eating (QC): 6 Groomin Oral Hygiene (QC): 6 Bathing(FIM): 5 Shower/Bathe Self (QC): 5 Upper Body Dressing(FIM): 6 Upper Body Dressing (QC): 6 Lower Body Dressing(FIM): 6 Lower Body Dressing (QC): 6 On/Off Footwear (QC): 6 Toileting(FIM): 6 Toileting Hygiene (QC): 6 Toilet/Commode Transfer(FIM): 6 Toilet/Commode Transfer (QC): 6 Shower Transfer(FIM): 6 Additional Goals: 1-Demonstrate ADL Tasks, 2-Verbalize Understanding, 3- ImproveStrength/Fede 1=Demonstrate adherence to instructed precautions during ADL tasks. 2=Patient will verbalize/demonstrate understanding of assistive devices/ modifications for ADL. 3=Patient will improve strength/tolerance for activity to enable patient to perform ADL's. OT Education/Plan Discharge Recommendations Plan/Recommendations: Continue POC Treatment Plan/Plan of Care Patient would benefit from OT for education, treatment and training to promote independence in ADL's, mobility, safety and/or upper extremity function for ADL' s. Plan of Care: ADL Retraining, Functional Mobility, Group Exercise/Act as Ind ( education, exercise, activity tolerance, funct mobility, funtional actiities), UE Funct Exercise/Act, UE Neuromus Re-Ed/Coord, W/C Management Training, OTHER ( energy conservation education) Treatment Duration: Jun 07, 2018 Frequency: At least 5 of 7 days/Wk (IRF) Estimated Hrs Per Day: 1.5 hours per day Agreement: Yes Rehab Potential: Fair Time/GCodes Start Time: 14:50 Stop Time: 15:55 Total Time Billed (hr/min): 65 Billed Treatment Time 1 visit, ADLx2(25minutes), FAx2(25minutes), Ex(15minutes) Co-treat with PT 65minutes ALIYAH PORTILLO OT May 17, 2018 16:04
--- NOTE | 2018-05-17 16:19 | ST Cognitive Linguistic Eval ---
Speech Evaluation-General Medical Diagnosis disus myopathy Onset Date: Mar 05, 2018 Therapy Diagnosis Therapy Diagnosis: Cognitive-communication Precautions Precautions: Fall Precautions/Isolations: Standard Precautions Medical History Pertinent Medical History: CAD, COPD, GERD, Hypothroidism, OA, Smoking Reviewed History: Yes Social History Current Living Status: Alone Speech PLF-Current Status Prior Level of Function Patient lived at home alone prior to hospitalization in 02/2018 and was independent with all of her daily needs. Subjective Patient pleasant and cooperative. Language Eval: Auditory Comprehends Simple Yes/No Ques: Functional Indent/Objects Multiple [place]rell: Mild Ident/Pics in Multiple Burrell: Mild Follows Complex Directions: Moderate Follows General Conversations: Mild Language Eval: Verbal Language Completes Spontaneous Greeting: Functional Produces Auto, Serial Info: Functional Imitates Simple Words/Phrases: Mild Word Finding: Mild Requests Basic Needs: Functional States Basic Personal Info: Functional Expresses Complex Ideas: Moderate Cognitive Patient Orientation Patient oriented x3, however she does exhibit memory deficits. Objective Cognitive Domain Attention: WNL Memory: Mild Problem Solving: Moderate Executive Functions: Moderate Objective Formal/Standardized Tests [place] Cognitive/Communication Results Memory: Immediate: 2:3, Delayed: 1:3, Cued 2:3, Mental Control: 2:2, Organization/Sequencin:3, Problem Solving: Simple: 2:3, Comparisons: 3:3 Oral Motor/Speech Production Within functional limits with trach Impression Patient is a 58 year old female who was transferred to the rehab unit from another hospital. She exhibits deficits in memory, problem solving and following simple directions based on test results. Patient was pleasant and cooperative. She has been taking prescription medications for memory for about a year she stated. She also stated she thinks she could benefit from memory therapy. Communication/Social Cognition Comprehension: 3 Expression: 3 Social Interaction: 4 Problem Solvin Memory: 3 Speech Patient Assess Expression of Ideas/Wants: Exhibits (3) Understanding Verbal Content: Usually Understands (3) Brief Interview-Mental Status: Yes Repetition of Three Words: Three (3) Temporal Orientation: Year: Correct (3) Temporal Orientation: Month: Accurate within 5 days(2) Temporal Orientation: Day: Correct (1) Recall : Wear to say "Sock": Yes,after cueing (1) Recall : Color: Yes, after cueing (1) Recall : Bed: Yes,after cueing (1) Memory/Recall Ability: Current season, That he or she is in a hsp/hsp unit Speech Short Term Goals Short Term Goals Short Term Goals 1) Patient will recall information for safety awareness at 90% or greater with minimal cues. 2) Patient will recall new information from memory tasks at 90% accuracy or greater with minimal cues. 3) Patient will follow simple directions within her immediate living environment at 90% or greater with minimal cues. Speech Ranch Hand Supervisor Goals Ranch Hand Supervisor Goals Patient will improve safety awareness and independence with 90% accuracy. Speech-Plan Patient/Family Goals Patient/Family Goals: Patient plans to return home with support following rehab. Treatment Plan Speech Therapy Treatment Plan: Continue Plan of Care Patient is recommended for skilled ST to focus on safety and independence. Treatment Duration: May 24, 2018 Frequency: 5 times per week Estimated Hrs Per Day: .5 hour per day Rehab Potential: Good Barriers to Learning: Memory deficits. Pt/Family Agrees to Plan: Yes Safety Risks/Education Teaching Recipient: Patient Teaching Methods: Discussion Response to Teaching: Verbalize Understanding Education Topics Provided: Safety procedures within her room. Time Speech Therapy Time In: 16:00 Speech Therapy Time Out: 16:15 Total Billed Time: 15 Billed Treatment Time 1, SPSNDMAGUE Horowitz May 17, 2018 16:18
--- NOTE | 2018-05-17 17:00 | NUR ---
DR. GARZA NOTIFIED OF CONSULT. DR. COOK NOTIFIED THAT PATIENT STATES IS NOT DIABETIC AND ONLY ON LEVEMIR WHEN WAS ON TUBE FEEDINGS. STATES OFF TUBE FEEDINGS FOR 6 DAYS OR SO. ACCU CHECK 93 AT THIS TIME. DESI RIVAS.
[2018-05-17] MEDS: LACTOBACILLUS ACIDOPHILUS (PROBIOTIC) CAPSULE PO SCH (17:45)
[2018-05-17] MEDS: HYDROcodone/APAP 10 MG/325 MG (LORTAB) TAB PO PRN ×2 (17:47→22:54)
[2018-05-17 18:00] VITALS: BP 154/90
--- NOTE | 2018-05-17 18:30 | NUR ---
AFTER EATING DINNER, STATED NEEDED SUCTIONED. APPEARED MORE SOB. WAS SUCTIONED BY RT.
[2018-05-17] MEDS: SUCRALFATE 1 GM (CARAFATE) TAB PO SCH (20:38)
[2018-05-17] MEDS: meTOprolol TARTRATE 50 MG (LOPRESSOR) TAB PO SCH (20:38)
[2018-05-17] MEDS: OLANZapine 5 MG (ZyPREXA) TAB PO SCH (20:38)
[2018-05-17] MEDS: PANTOPRAZOLE 40 MG (PROTONIX) TAB PO SCH (20:38)
[2018-05-17] MEDS: ATORVASTATIN 40 MG (LIPITOR) TABLET PO SCH (20:38)
[2018-05-17] MEDS: DONEPEZIL 10 MG (ARICEPT) TAB PO SCH (20:38)
[2018-05-17] MEDS: ARTIFICAL TEARS 0.4 ML UNIT DOSE (REFRESH PLUS) OU SCH (20:46)
[2018-05-17] MEDS: RT-ADVAIR HFA 115/21 MCG PER PUFF IH SCH (20:50)
[2018-05-17] MEDS ORDERED: NON-FORMULARY MEDICATION 1 EA EA IH SCH (21:00)
--- NOTE | 2018-05-18 00:55 | NUR ---
This RN called Dr. Pringle in regards to the pt complaining of nausea and requesting Zofran. Order received for Zofran 4 mg PO Q6H prn nausea. Orders read back and verified.
[2018-05-18] MEDS: ONDANSETRON 4 MG (ZOFRAN) ORAL DISSOLVE TAB PO PRN ×2 (01:34→08:17)
--- NOTE | 2018-05-18 01:43 | NUR ---
Pt went into coughing fit and vomited 100 mls. Will continue to monitor.
[2018-05-18 05:19] VITALS: BP 151/85
--- NOTE | 2018-05-18 08:20 | NUR ---
STILL NAUSEATED AND MEDICATED WITH ZOFRAN. UNABLE TO EAT BREAKFAST OR TAKE MEDS AT THIS TIME. DR. COOK NOTIFIED OF HIGH RISK FOR DVT. [facility]MARK NURSE HAD REPORTED THAT PATIENT HAD BLEEDING AT PEG SITE AFTER PEG WAS DC'D SO LOVENOX WILL BE STARTED AT A LOW DOSE.
--- NOTE | 2018-05-18 08:35 | PM&R Post Admission Assessment ---
Post Admission Physician Asses Date seen by provider: May 18, 2018 Time seen by provider: 08:00 The preadmission screen agrees with the post admission assessment that the patient is a good candidate for inpatient rehabilitation. The patient will have a comprehensive program of inpatient rehabilitation with a goal of maximizing level of functional independence prior to discharge home with [facility]. The patient will have PT/OT ninety minutes per day, each discipline , five days a week for 2 weeks for gait, strengthening, conditioning, balance, ADLs, any patient/family/caregiver training as necessary. Speech therapy to do cognitive assessment and treat as indicated for 3 to 5 times a week for 2 weeks 30 to 45 min per day. Rehabilitation nursing to assist with bowel, bladder, skin , wound care, medication administration, pain management. Adjuster Arbitrator to assist with discharge planning, community reentry. SCD's for DVT prophylaxis. She appears to be well motivated to participate in three hours of therapy a day. She should be able to tolerate three hours of therapy a day from a medical standpoint. She should benefit from the three hours of therapy a day. She has a reasonable discharge plan, reasonable discharge rehabilitation goals and a supportive family. She has various comorbidities that need to be closely monitored with medications and treatments adjusted on a daily basis as needed. These include: CAD COPD S/P trach Nausea Anxiety Barriers to discharge for this patient who had been independent prior to this are for her to be modified independent to supervision for ADLs and mobility skills prior to discharge home with [facility], so as to lessen the burden of the caregivers. Risks for this patient include: 1. Fall 2. Fracture 3. DVT 4. Pulmonary embolism 5. Trach infection 6. Skin breakdown 7. Contractures 8. Poorly controlled pain 9. Urinary retention 10. UTI 11. Respiratory infection 12. Aspiration 13.Exacerbation of COPD Estimated Length of Stay: 18 days Prognosis: Rehab prognosis appears good for goal of discharge home with [facility] modified independent to supervision for ADLs and mobility skills. Date Identified: May 17, 2018 Time Identified: 1600 Action Plan to Resolve CSMI: BLOOD SUGAR CHECKED AND 93. LEVEMIR. Zofran increased for nausea General: Alert, Oriented X3, Cooperative, No Acute Distress HEENT: Atraumatic, PERRLA, EOMI, Mucous Memb Moist/[place] Neck: Other (Trach in Place) Lungs: Clear to Auscultation Heart: Regular Rate Abdomen: Normal Bowel Sounds, Soft, No Tenderness, Other (obese with peg site healing well) Extremities: Other (Trace ankle edema) Neuro: Other (Proximal weakness Both lower limbs Strength 3+/5 Both upper limbs ) Psych/Mental Status: Other (anxiety) JOSE COOK MD May 18, 2018 08:35
[2018-05-18] MEDS ORDERED: inSUlin DETERMIR 1 UNIT/0.01 ML (LEVEMIR) CHARGE PER UNIT SQ SCH (09:00)
[2018-05-18] MEDS ORDERED: NON-FORMULARY MEDICATION 1 EA EA SC SCH (09:00)
[2018-05-18] MEDS ORDERED: ENOXAPARIN 40 MG/0.4 ML (LOVENOX) SYR SC SCH (09:00)
[2018-05-18] MEDS: ARTIFICAL TEARS 0.4 ML UNIT DOSE (REFRESH PLUS) OU SCH ×3 (09:00→20:05)
[2018-05-18] MEDS: SUCRALFATE 1 GM (CARAFATE) TAB PO SCH ×3 (09:00→20:08)
[2018-05-18] MEDS ORDERED: NON-FORMULARY MEDICATION 1 EA EA PO PRN (09:00)
[2018-05-18] MEDS: LACTOBACILLUS ACIDOPHILUS (PROBIOTIC) CAPSULE PO SCH ×3 (10:28→16:56)
[2018-05-18] MEDS: CYANOCOBALAMIN 1,000 MCG (VITAMIN B-12) TABLET PO SCH (10:28)
[2018-05-18] MEDS: PANTOPRAZOLE 40 MG (PROTONIX) TAB PO SCH ×2 (10:28→20:08)
[2018-05-18] MEDS: MULTIVIT W/MINERALS TAB (THERAGRAN M) PO SCH (10:32)
--- NOTE | 2018-05-18 10:38 | Consultation-Hospitalist ---
HPI History of Present Illness: HPI/Chief Complaint CC: Debility HPI: This is a 58-year-old white female clinic patient of Dr. Ward known to me from ICU stay on a ventilator 8 weeks ago he was unable to be weaned so she was transferred to [facility] and has had a complicated course including trach placement for long-term vent use and PEG tube placement. She has been sent to inpatient rehabilitation for further recovery prior to discharge from facility. She reports nausea so I have ordered scopolamine patch and Zofran and is now from 4-8 mg every 6 hours. I review home medication and current labs and vitals. She has no complaints except for nausea. Source: patient, RN/MD, old records Exam Limitations: no limitations Date Seen 05/18/18 Attending Physician Reynaldo Conroy MD PCP Garrett Ward DO Referring Physician Date of Admission May 17, 2018 at 14:10 Home Medications & Allergies Home Medications Reviewed patient Home Medication Reconciliation performed by pharmacy medication reconciliations crop and soil technician and/or nursing. Patients Allergies have been reviewed. Allergies Allergies Coded Allergies clindamycin (Unverified Allergy, Mild, HIVES, 11/21/09) meperidine (Unverified Allergy, Mild, HAS RECEIVED FENTANYL IN THE PAST, ) morphine (Unverified Allergy, Mild, 11/21/09) codeine (Verified Adverse Reaction, Unknown, NAUSEA, 11/21/09) Past Xnigibr-Ksvffv-Mkrygs Hx Past Med/Social Hx: Reviewed Nursing Past Med/Soc Hx, Reviewed and Corrections made Patient Social History Marrital Status: single Employed/Student: unemployed Alcohol Use: Rarely Uses Number of Drinks Today: 0 Recreational Drug Use: No Smoking Status: Current Everyday Smoker Type Used: Cigarettes 2nd Hand Smoke Exposure: Yes Physical Abuse Screen: No Sexual Abuse: No Recent Foreign Travel: No Contact w/other who traveled: No Recent Hopitalizations: No Recent Infectious Disease Expo: No Immunizations Up To Date Tetanus Booster (TDap): Unknown Pediatric: No Date of Pneumonia Vaccine: Mar 11, 2011 Date of Influenza Vaccine: Feb 22, 2018 Seasonal Allergies Seasonal Allergies: No Past Medical History Surgeries: Appendectomy, Bowel Surgery, Breast, Section, Hysterectomy , Oophorectomy, Tracheostomy Respiratory: COPD Currently Using CPAP: No Currently Using BIPAP: No Cardiac: Chronic Edema/Swelling, Coronary Artery Disease, High Cholesterol, Hypertension Neurological: Headaches /Migraines Reproductive: Yes (RIGHT BREAST BENING LUMP-REMOVED) Sexually Transmitted Disease: No HIV/AIDS: No Female Reproductive Disorders: Denies Gastrointestinal: Gastroesophageal Reflux, Hiatal Hernia, Ulcer Musculoskeletal: Arthritis Endocrine: Hypothyroidsim, Lupus Loss of Vision: Denies Hearing Impairment: Denies Psychosocial: Anxiety, Bipolar, Personality Disorder, Depression Skin/Integumentary: Psoriasis History of Blood Disorders: Yes (ANEMIA POST OP) Family History Arthritis 19 FATHER 19 MOTHER Cardiovascular disease 19 FATHER Cataracts 19 MOTHER Completed stroke 19 MOTHER Dysphasia 19 FATHER FH: cirrhosis 19 MOTHER Glaucoma 19 MOTHER Hypercholesterolemia 19 FATHER Hypertension 19 FATHER 19 MOTHER Myocardial infarction 19 FATHER Osteoporosis 19 MOTHER No Family History of: AIDS Abdominal aortic aneurysm [place]'s disease Alcoholism Alzheimer's disease Aphasia Asthma Cancer of mouth Colon cancer Congenital disease Congenital heart disease Coronary thrombosis Cystic fibrosis Deafness or hearing loss Dementia Diabetes mellitus Drug abuse Fibrocystic disease of breast Gastroenteritis Headache disorder Infertility Kidney disease Neoplasm Not obtainable due to adoption Parkinson's disease Prostate cancer Psychosocial problem Respiratory disorder Seizure disorder Severe allergy Thyroid disease Tuberculosis Visual disorder GI Disease Review of Systems Constitutional: see HPI, weakness EENTM: no symptoms reported Respiratory: no symptoms reported Cardiovascular: no symptoms reported Gastrointestinal: loss of appetite, nausea Musculoskeletal: no symptoms reported Skin: no symptoms reported Psychiatric/Neurological: Depressed All Other Systems Reviewed Negative Unless Noted: Yes Physical Exam Physical Exam Vital Signs Vital Signs - First Documented 05/17/18 14:10 Temp 97.5 Pulse 85 Resp 24 B/P (MAP) 181/79 (113) Pulse Ox 97 O2 Delivery Nasal Cannula O2 Flow Rate 2.00 Capillary Refill : Height, Weight, BMI Height: 5'5.00" Weight: 233lbs. 2.0oz. [id number]; 38.8 BMI Method:Stated General Appearance: No Apparent Distress, WD/WN, Chronically ill, Obese Eyes: Bilateral Eye Normal Inspection, Bilateral Eye PERRL HEENT: PERRL/EOMI, Normal ENT Inspection, Pharynx Normal Neck: Full Range of Motion, Normal Inspection, Non Tender, Supple, Carotid Bruit, Other (Trach in place) Respiratory: Chest Non Tender, Lungs Clear, Normal Breath Sounds, No Accessory Muscle Use, No Respiratory Distress Cardiovascular: Regular Rate, Rhythm, No Edema, No Gallop, No JVD, No Murmur, Normal Peripheral Pulses Gastrointestinal: Normal Bowel Sounds, No Organomegaly, No Pulsatile Mass, Non Tender, Soft, Other (PEG tube) Back: Normal Inspection, No CVA Tenderness, No Vertebral Tenderness Extremity: Normal Capillary Refill, Normal Inspection, Normal Range of Motion, Non Tender, No Calf Tenderness, No Pedal Edema Neurologic/Psychiatric: Alert, Oriented x3, No Motor/Sensory Deficits, Normal Mood/Affect Skin: Normal Color, Warm/Dry Lymphatic: No Adenopathy Results Results/Procedures Labs Patient resulted labs reviewed. Assessment/Plan Assessment and Plan Assess & Plan/Chief Complaint Assessment: Severe debility following critical illness and vent dependence Trach which will be discontinued in the near future PEG tube Nausea Mental illness precluding fast recovery Current smoker COPD Status post pneumonia Plan: Scopolamine patch along with Zofran Monitor closely Inpatient rehabilitation protocol with therapies Diagnosis/Problems Diagnosis/Problems (1) Myopathy Status: Acute (2) Nausea Status: Acute (3) Chronic mental illness Status: Chronic (4) Personal history of supraventricular tachycardia Status: Chronic (5) Smoker Status: Chronic (6) Hypertension Status: Chronic Qualifiers: Hypertension type: essential hypertension Qualified Codes: I10 - Essential (primary) hypertension (7) Bipolar disorder Status: Chronic Qualifiers: Active/Remission status: remission status unspecified Qualified Codes: F31.9 - Bipolar disorder, unspecified (8) COPD (chronic obstructive pulmonary disease) Status: Chronic Qualifiers: COPD type: unspecified COPD Qualified Codes: J44.9 - Chronic obstructive pulmonary disease, unspecified Clinical Quality Measures DVT/VTE Risk/Contraindication: Risk Factor Score Per Nursin RFS Level Per Nursing on Admit: 4+=Very High SAMANTHA COLLIER DO May 18, 2018 10:38
--- NOTE | 2018-05-18 10:58 | NUR ---
DR. COLLIER HERE TO SEE PATIENT. WILL TRY SCOPALAMINE PATCH FOR NAUSEA.
[2018-05-18] MEDS: DOCUSATE SODIUM 100 MG (COLACE) CAP PO SCH ×2 (11:00→20:05)
[2018-05-18] MEDS: MELOXICAM 7.5 MG (MOBIC) TABLET PO SCH (12:07)
[2018-05-18] MEDS: meTOprolol TARTRATE 50 MG (LOPRESSOR) TAB PO SCH ×2 (12:07→20:08)
[2018-05-18] MEDS: LORATADINE (CLARITIN) 10 MG TAB PO SCH (12:07)
[2018-05-18] MEDS: SCOPOLAMINE 1.5 MG (TRANSDERM-SCOP) PATCH TD SCH (12:09)
[2018-05-18] MEDS: ENOXAPARIN 30 MG/0.3 ML (LOVENOX) SYR SC SCH (12:12)
[2018-05-18] MEDS: RT-ADVAIR HFA 115/21 MCG PER PUFF IH SCH ×2 (12:16→19:57)
--- NOTE | 2018-05-18 12:16 | Physical Therapy Daily Note ---
PT Daily Note-Current Subjective Pt agreeable to treatment. she admits being fearful of standing. she is afraid she will fall. Transfers Therapy Code Descriptions/Definitions Functional Paul Measure: 0=Not Assessed/NA 4=Minimal Assistance 1=Total Assistance 5=Supervision or Setup 2=Maximal Assistance 6=Modified Paul 3=Moderate Assistance 7=Complete Paul Therapy Quality Codes: 6 Independent with activity with or without an assistive device 5 Patient requires set up or clean up by helper. Patient completes activity by themselves 4 Supervision or touching assist (CGA). [place] provide cues , steadying assist 3 The helper provides less than half the effort to complete the activity 2 The helper provides more than half the effort to complete the activity 1 Dependent. The helper does all the effort to complete an activity 7 Patient refused to complete or attempt activity 9 The patient did not perform the activity before the current illness or injury 88 Not attempted due to Medical conditions or safety concerns Transfers (B, C, W/C) (FIM): 2 Rollin Supine to/from Sit: 4 Sit to/from Stand: 2 Bed to/from Chair: 3 Came to sitting at EOB with Min Assist. Needed Max A of 1 to come to standing and perform a slow stand pivot tranfer to w/c with frequent cues to shuffle feet. Pt became anxious toward the end of the transfer and "panicked" urgently requesting to sit. Able to control descent into w/c. Pt educated on the importance of being up in a chair vs advertising material distributor in bed. Educated patient on the experience of using a sit to stand so that she will be able to transfer with assist of nursing until she regains sufficient strength to stand on her own. Transferred patient w/c to bedside recliner using [employer] Sit to stand lift. Exercises Seated Therapy Exercises: Ankle pumps, Sit to stand, Long arc quads, Hip flexion, Kicking activity Seated Reps: 20 Sit to cloth roll winder parallel bars x 4 trials. Pt unable to stand when pushing or pulling from bars. Pt allowed to hold the back of therapists arms and then initiated forward rocking with a 1-2-3 count and pt able to come to standing with Max A. Pt stood trials of 60 to 30 seconds. Pt standing not limited by weakness but by anxiety and pt fear of falling. Assessment Current Status: Fair Progress Pt was able to attempt all activities. She required continually encouragement and instruction to reduce anxiety and fear. Pt has weakness that is limiting function, but her fear is also limiting. Pt will benefit from continued therapy to address strength and functional mobility. PT Short Term Goals Short Term Goals Time Frame: May 24, 2018 Transfers (B,C,W/C) (FIM): 3 Gait (FIM): 1 Gait Distance Comment: 5' Gait Level of Assist: 4 Gait Assistive Device: Parallel Bars Wheelchair (FIM): 1 Wheelchair Distance: 20' PT Detective Supervisor Goals Senior Living Goals PT Senior Living Goals Time Frame: Jun 07, 2018 Transfers (B,C,W/C) (FIM): 4 Sit to Lying (QC): 4 Lying-Sitting on Side/Bed(QC): 4 Sit to Stand (QC): 4 Rollin Roll Left to Right (QC): 4 Chair/Maq-wz-Jmwtl Xfer(QC): 3 Car Transfer (QC): 3 Gait (FIM): 1 Distance: 20' Walk 10 feet (QC): 4 Gait Level of Assist: 4 Gait Assistive Device: FWW Wheelchair (FIM): 2 Distance: 50' Wheelchair Level of Assist: 5 Wheel 50 feet with 2 turns (QC: 4 PT Plan Treatment/Plan Treatment Plan: Continue Plan of Care Treatment Plan: Bed Mobility, Concurrent Therapy, Education, Functional Activity Fede, Functional Strength, Group Therapy, Gait, Safety, Therapeutic Exercise, Transfers Treatment Duration: Jun 07, 2018 Frequency: At least 5 of 7 days/Wk (IRF) Estimated Hrs Per Day: 1.5 hours per day Patient and/or Family Agrees t: Yes Safety Risks/Education Patient Education: Transfer Techniques, W/C Management Time/GCodes Time In: 1145 Time Out: 1215 Total Billed Treatment Time: 30 Total Billed Treatment visit, FA 20 min, ex 10 min BORA GUERRERO PT May 18, 2018 12:16
--- NOTE | 2018-05-18 13:00 | NUR ---
SAT UP IN CHAIR X 1 HOUR. USED [id number] TO GET OUT OF CHAIR. NAUSEA BETTER.
[2018-05-18 17:05] VITALS: BP 154/84
[2018-05-18] MEDS: ONDANSETRON 8 MG (ZOFRAN) ORAL DISSOLVE TAB PO PRN (18:38)
[2018-05-18] MEDS: HYDROcodone/APAP 10 MG/325 MG (LORTAB) TAB PO PRN (19:31)
[2018-05-18] MEDS: ATORVASTATIN 40 MG (LIPITOR) TABLET PO SCH (20:08)
[2018-05-18] MEDS: DONEPEZIL 10 MG (ARICEPT) TAB PO SCH (20:08)
[2018-05-18] MEDS: OLANZapine 5 MG (ZyPREXA) TAB PO SCH (20:08)
[2018-05-19] MEDS: PANTOPRAZOLE 40 MG (PROTONIX) TAB PO SCH ×2 (05:45→21:39)
[2018-05-19] MEDS: MULTIVIT W/MINERALS TAB (THERAGRAN M) PO SCH (05:45)
[2018-05-19] MEDS: CYANOCOBALAMIN 1,000 MCG (VITAMIN B-12) TABLET PO SCH (05:46)
[2018-05-19] MEDS: LACTOBACILLUS ACIDOPHILUS (PROBIOTIC) CAPSULE PO SCH ×3 (05:46→16:44)
[2018-05-19 05:52] VITALS: BP 158/73
[2018-05-19] MEDS: ENOXAPARIN 30 MG/0.3 ML (LOVENOX) SYR SC SCH (09:22)
[2018-05-19] MEDS: MELOXICAM 7.5 MG (MOBIC) TABLET PO SCH (09:23)
[2018-05-19] MEDS: LORATADINE (CLARITIN) 10 MG TAB PO SCH (09:23)
[2018-05-19] MEDS: SUCRALFATE 1 GM (CARAFATE) TAB PO SCH ×3 (09:23→21:37)
[2018-05-19] MEDS: meTOprolol TARTRATE 50 MG (LOPRESSOR) TAB PO SCH ×2 (09:24→21:40)
[2018-05-19] MEDS: DOCUSATE SODIUM 100 MG (COLACE) CAP PO SCH ×2 (09:24→21:41)
[2018-05-19] MEDS: ARTIFICAL TEARS 0.4 ML UNIT DOSE (REFRESH PLUS) OU SCH ×3 (09:25→21:41)
[2018-05-19] MEDS: ONDANSETRON 8 MG (ZOFRAN) ORAL DISSOLVE TAB PO PRN (09:28)
--- NOTE | 2018-05-19 09:30 | NUR ---
NAUSEA STARTED AFTER EATING BREAKFAST. MEDICATED WITH ZOFRAN.
[2018-05-19] MEDS: RT-ADVAIR HFA 115/21 MCG PER PUFF IH SCH ×2 (10:54→20:43)
[2018-05-19] MEDS: HYDROcodone/APAP 10 MG/325 MG (LORTAB) TAB PO PRN ×2 (13:00→18:12)
[2018-05-19 15:53] VITALS: BP 172/78
[2018-05-19 17:40] VITALS: BP 152/85
--- NOTE | 2018-05-19 18:00 | NUR ---
HAS BEEN MORE ALERT AND SMILING TODAY. NO FURTHER NAUSEA. SAT UP IN RECLINER X 2 HOURS WITH USE OF [id number]. MORE WILLING TO DO ACTIVITY TODAY.
--- NOTE | 2018-05-19 18:30 | NUR ---
STATES NORMALLY TAKES 40 MG ZYPREXA INSTEAD OF 10 MG CURRENTLY SCHEDULED ON FROM . WILL CHECK WITH DR. MEI IN AM. ALSO, WILL CHECK ON CREAM FOR PSORIASIS ON KNEES.
--- NOTE | 2018-05-19 19:28 | NUR ---
bedside report received from XAVI BLEVINS, assume care of pt
--- NOTE | 2018-05-19 20:30 | HISTORY AND PHYSICAL ---
DATE OF SERVICE: 05/18/2018 ADMISSION HISTORY AND PHYSICAL CHIEF COMPLAINT: Weakness. HISTORY OF PRESENT ILLNESS: The patient is a 58-year-old female who is disabled and has COPD who was treated at an outside facility for acute exacerbation of COPD. The patient had decline in functional independence and was referred to inpatient rehabilitation unit at [facility] as she lives in [place] in an apartment alone. She did require ventilator support and is to have decannulation this coming week. She had PEG tube for tube feeds, but PEG tube has been removed. She is a full code.She is mod assist for transfers and has limited endurance.She is Mod assist for upper body dressing and max assist for lower body dressing.She is set up for eating and grooming.She had been Independent prior to this. PAST MEDICAL HISTORY: Coronary artery disease, COPD, GERD, hypothyroidism, away tobacco, morbid obesity and pneumonia. PAST SURGICAL HISTORY: Colectomy, colostomy, lumpectomy.Appendectomy. C section.Hysterectomy ALLERGIES: CLINDAMYCIN, CODEINE, MEPERIDINE, MORPHINE. FAMILY HISTORY: CAD.Glaucoma. GA.Arthritis. SOCIAL HISTORY: Lives alone in an apartment, disabled. She has Medicare. PCP, Dr. 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 Complains of nausea. MEDICATIONS: Scopolamine patch applied 2 to 3 days, Zofran 8 mg p.o. q.6 hours p.r.n. nausea and vomiting, Colace 100 mg p.o. b.i.d., Claritin 10 mg p.o. daily, Mobic 15 mg p.o. daily, guaifenesin q.6 hours p.r.n. cough, vitamin B12 1000 mcg p.o. daily, multivitamins with minerals 1 tablet p.o. daily, Refresh eyedrops 2 drops t.i.d. both eyes, Lipitor 40 mg p.o. at bedtime, Aricept 10 mg p.o. at bedtime, metoprolol 50 mg p.o. b.i.d., Zyprexa 10 mg p.o. at bedtime, Protonix 40 mg p.o. b.i.d., Carafate 1 gram p.o. t.i.d., Advair 2 puffs b.i.d. acidophilus 2 tablets p.o. t.i.d. with meals, Tylenol 325 mg p.o. q.4 hours p.r.n. mild pain, hydrocodone/APAP ten 2 tablets p.o. q.4 hours p.r.n. moderate pain, MiraLax 17 grams p.o. at bedtime p.r.n. constipation. PHYSICAL EXAMINATION: GENERAL: Significant for an obese female complaining of mild nausea, lying in bed, no acute distress. VITAL SIGNS: She is afebrile, pulse 79, blood pressure 152/85, O2 sat 98% on 3 liters of O2 by nasal cannula. HEENT: Vision, speech, hearing grossly intact. No oral lesion is noted. NECK: Tracheostomy tube in place with speaking valve. CHEST: Clear. HEART: Regular rhythm. ABDOMEN: Obese, soft, nontender, bowel sounds present. EXTREMITIES: Trace edema both ankles. MUSCULOSKELETAL: She has functional active range of motion in all 4 limbs. NEUROLOGIC: Sensation is grossly intact to touch. Cognition mildly impaired memory. She has generalized weakness.Left shoulder active ROM 45 degrees and RT active 30 degrees Passive [id number].Strength Upper limbs approx 3+/5.Hip flex 3/5 Knee flex and extension 3/5 Dorsiflex 4/5 IMPRESSION: 1. 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 2. Respiratory insufficiency, on O2 by nasal cannula at 3 liters per minute. 3. Morbid obesity. 4. Osteoarthritis. 5. Tobaccoism. 6. Anxiety. 7. Deep vein thrombosis prophylaxis. We will order Lovenox subq. PLAN: The patient will have a comprehensive program of inpatient rehabilitation with goal of maximizing level of functional independence prior to discharge home with home health care. The patient will have PT, OT daily 90 minutes day each discipline, 5 days a week for 2 weeks with the above goals in mind, hopefully for the patient to be modified independent to supervision for ADLs and mobility skills. Speech therapy to assess cognition and treat as indicated. Rehabilitation nursing assist with bowel, bladder, skin care, medication administration and trach care. front services agent for discharge planning, community reentry follow up with Dr. Ward, PCP and Dr. Berman, pulmonology, consult Dr. Berman regarding decannulation. The patient had been on insulin due to tube feedings, but no longer on tube feedings and Accu-Chek is 93 on 05/17 and insulin has been discontinued. Respiratory therapy to assist with O2 administration and wean as able. ESTIMATED LENGTH OF STAY: Two weeks. PROGNOSIS: Rehab prognosis appears good for goal of discharging home with home health care, modified independent to supervision for ADLs and mobility skills. DIET: Regular. Job ID: [id number] DocumentID: [id number] Dictated Date: 05/19/2018 19:44:23 Medical Leader Date: 05/19/2018 20:29:39 Dictated By: JSOE COOK MD MTDD
--- NOTE | 2018-05-19 21:00 | NUR ---
assessments & interventions completed, see assessments & interventions, refused refresh eye drops & Colace this evening, takes pills well with water & applesauce
[2018-05-19] MEDS: DONEPEZIL 10 MG (ARICEPT) TAB PO SCH (21:39)
[2018-05-19] MEDS: OLANZapine 5 MG (ZyPREXA) TAB PO SCH (21:40)
[2018-05-19] MEDS: ATORVASTATIN 40 MG (LIPITOR) TABLET PO SCH (21:40)
[2018-05-20] MEDS: HYDROcodone/APAP 10 MG/325 MG (LORTAB) TAB PO PRN ×3 (01:41→19:06)
--- NOTE | 2018-05-20 01:41 | NUR ---
c/o pain level 10/10 on numeric scale, Lortab 10 2 tabs po given
--- NOTE | 2018-05-20 02:30 | NUR ---
resting quietly in bed, pain level 0/10 on flacc scale
[2018-05-20 05:03] VITALS: BP 150/81
[2018-05-20] MEDS: MULTIVIT W/MINERALS TAB (THERAGRAN M) PO SCH (06:48)
[2018-05-20] MEDS: LACTOBACILLUS ACIDOPHILUS (PROBIOTIC) CAPSULE PO SCH ×3 (06:48→17:20)
[2018-05-20] MEDS: CYANOCOBALAMIN 1,000 MCG (VITAMIN B-12) TABLET PO SCH (06:48)
[2018-05-20] MEDS: PANTOPRAZOLE 40 MG (PROTONIX) TAB PO SCH ×2 (06:48→20:47)
--- NOTE | 2018-05-20 07:35 | NUR ---
bedside report given to MARYANN BLEVINS
--- NOTE | 2018-05-20 07:40 | NUR ---
TALKED TO ABOUT ZYPREXA PT HAD HOME MED OF 40MG BUT PT ON 10MG SINCE AT [facility], STATED WOULD KEEP ON 10MG FOR NOW UPPER LIMIT 20mg, ALSO ASKED ABOUT SOMETHING FOR PSORIASIS, KENOLOG 5% TID ORDERED
--- NOTE | 2018-05-20 07:54 | Progress Note (SOAP) ---
Subjective Time Seen by a Provider: 07:50 Subjective/Events-last exam Patient came from [facility] on a ventilator and had a PEG tube. PEG tube at this time has been removed. Patient originally came from the [facility] where she was on a ventilator had pneumonia and COPD. Patient smokes. Patient has a history of CAD, COPD, GERD, hypothyroid, morbid obesity, bipolar, anxiety, depression, and myopathy. Patient has trouble moving the left leg. Patient has trouble picking up her arms bilaterally. Patient has debility Objective Exam Vital Signs Date Time Temp Pulse Resp B/P (MAP) Pulse Ox O2 Delivery O2 Flow Rate FiO2 05/20/18 05:03 98.1 82 20 150/81 (104) 95 Nasal Cannula 3.00 05/19/18 21:00 Nasal Cannula 3.00 05/19/18 20:43 94 Nasal Cannula 3.00 05/19/18 17:40 79 152/85 (107) 05/19/18 17:09 Nasal Cannula 3.00 05/19/18 15:53 98.2 71 16 172/78 (109) 98 Nasal Cannula 3.00 05/19/18 10:55 95 Nasal Cannula 3.00 05/19/18 09:00 Nasal Cannula 3.00 I & O 05/20/18 07:00 Intake Total 1440 ml Balance 1440 ml Capillary Refill : General Appearance: No Apparent Distress, WD/WN HEENT: Normal ENT Inspection, Other (Has trach tube) Neck: Full Range of Motion, Normal Inspection Respiratory: No Accessory Muscle Use, No Respiratory Distress, Decreased Breath Sounds Cardiovascular: Regular Rate, Rhythm, No Murmur Gastrointestinal: non tender, soft Assessment/Plan Assessment/Plan Assess & Plan/Chief Complaint Myopathy. COPD. Morbid obesity. Bipolar. Anxiety. Depression. Psoriasis. On ventilator. PEG tube removed. Coronary artery disease. GERD. Hypothyroid. Morbid obesity Clinical Quality Measures DVT/VTE Risk/Contraindication: Risk Factor Score Per Nursin RFS Level Per Nursing on Admit: 4+=Very High JOCELYNE MEI DO May 20, 2018 07:53
[2018-05-20] MEDS: DOCUSATE SODIUM 100 MG (COLACE) CAP PO SCH ×2 (08:41→20:48)
[2018-05-20] MEDS: MELOXICAM 7.5 MG (MOBIC) TABLET PO SCH (08:41)
[2018-05-20] MEDS: SUCRALFATE 1 GM (CARAFATE) TAB PO SCH ×3 (08:41→20:46)
[2018-05-20] MEDS: meTOprolol TARTRATE 50 MG (LOPRESSOR) TAB PO SCH ×2 (08:41→20:47)
[2018-05-20] MEDS: LORATADINE (CLARITIN) 10 MG TAB PO SCH (08:41)
[2018-05-20] MEDS: ARTIFICAL TEARS 0.4 ML UNIT DOSE (REFRESH PLUS) OU SCH ×3 (08:42→20:45)
[2018-05-20] MEDS: ENOXAPARIN 30 MG/0.3 ML (LOVENOX) SYR SC SCH (08:42)
--- NOTE | 2018-05-20 11:44 | Pulmonary Consultation ---
History of Present Illness History of Present Illness Date of Consultation 05/20/18 11:44 Time Seen by Provider: 07:27 Date of Admission History of Present Illness 58yo with hx of COPD transferred to in patient rehab after extended hospital stay for acute respiratory failureand ARDS requiring ventilator care. Pt currently has tracheostomy tube in place. SHe denies any mucous production and no current SOB. PT wants tracheostomy tube out. I am consulted for pulmonary management. Allergies and Home Medications Allergies Coded Allergies: clindamycin (Unverified Allergy, Mild, HIVES, 11/21/09) meperidine (Unverified Allergy, Mild, HAS RECEIVED FENTANYL IN THE PAST, ) morphine (Unverified Allergy, Mild, 11/21/09) codeine (Verified Adverse Reaction, Unknown, NAUSEA, 11/21/09) Home Medications Acetaminophen 325 Mg Tablet, 650 MG PO Q6H PRN for PAIN-MILD, (Reported) Albuterol Sulfate 2.5 Mg/3 Ml Vial.neb, 2.5 MG NEB QID, (Reported) Atorvastatin Calcium 10 Mg Tablet, 10 MG PO HS, (Reported) Cetirizine HCl 10 Mg Tablet, 10 MG PO DAILY, (Reported) Cholecalciferol (Vitamin D3) 5,000 Unit Tablet, 5,000 UNIT PO DAILY, (Reported) Cyanocobalamin (Vitamin B-12) 1,000 Mcg Tablet, 1,000 MCG PO DAILY@0700 Prescribed by: SAMANTHA COLLIER on 06/12/182120 Cyclobenzaprine HCl 10 Mg Tablet, 10 MG PO TID, (Reported) Donepezil HCl 10 Mg Tablet, 10 MG PO HS, (Reported) Enoxaparin Sodium 40 Mg/0.4 Ml Syringe, 40 MG SC DAILY Prescribed by: SAMANTHA COLLIER on 06/12/182120 Famotidine 20 Mg Tablet, 20 MG PO BID, (Reported) Fluticasone/Salmeterol 12 Gm Hfa.aer.ad, 0 PUFF IH BID@,20 Prescribed by: SAMANTHA COLLIER on 06/12/182120 Glycopyrrolate/Formoterol Fum 10.7 Gm Hfa.aer.ad, 2 PUFF IH BID, (Reported) Hydrocodone/Acetaminophen 1 Each Tablet, 2 EA PO Q4H PRN for PAIN-MODERATE Prescribed by: SAMANTHA COLLIER on 06/12/182120 Meloxicam 15 Mg Tablet, 15 MG PO DAILY, (Reported) Metoprolol Succinate 100 Mg Tab.er.24h, 100 MG PO DAILY, (Reported) Olanzapine 20 Mg Tablet, 40 MG PO HS, (Reported) Ondansetron 8 Mg Tab.rapdis, 8 MG PO Q6H PRN for NAUSEA/VOMITING-1ST LINE Prescribed by: SAMANTHA COLLIER on 06/12/182120 Pantoprazole Sodium 40 Mg Tablet.dr, 40 MG PO BID@0700,2100 Prescribed by: SAMANTHA COLLIER on 06/12/182120 Polyethylene Glycol 3350 17 Gm Powd.pack, 17 GM PO DAILY, (Reported) Sucralfate 1 Gm Tablet, 1 GM PO TID Prescribed by: SAMANTHA COLLIER on 06/12/182120 [Multivitamins/Minerals Therap] 1 EA TABLET, 1 EA PO DAILY@0700 Prescribed by: SAMANTHA COLLIER on 06/12/182120 Past Nvdkuys-Iauctl-Tascom Hx Past Med/Social Hx: Reviewed Nursing Past Med/Soc Hx, Reviewed and Corrections made Patient Social History Alcohol Use: Rarely Uses Number of Drinks Today: 0 Recreational Drug Use: No Smoking Status: Current Everyday Smoker Type Used: Cigarettes 2nd Hand Smoke Exposure: Yes Recent Foreign Travel: No Contact w/Someone Who Travel: No Recent Infectious Disease Expo: No Recent Hopitalizations: No Immunizations Up To Date Tetanus Booster (TDap): Unknown PED Vaccines UTD: No Date of Pneumonia Vaccine: Mar 11, 2011 Date of Influenza Vaccine: Feb 22, 2018 Seasonal Allergies Seasonal Allergies: No Past Medical History Surgeries: Yes (PILONIDAL CYST, segmoid Colectomy 09/29/09, BOWEL RESECTION, COLOSTOMY ) Appendectomy, Bowel Surgery, Breast, Section, Hysterectomy, Oophorectomy, Tracheostomy Respiratory: Yes Chronic Bronchitis, COPD Currently Using CPAP: No Currently Using BIPAP: No Cardiac: Yes (SVT) Chronic Edema/Swelling, Coronary Artery Disease, High Cholesterol, Hypertension Neurological: Yes Headaches /Migraines Reproductive Disorders: Yes (RIGHT BREAST BENING LUMP-REMOVED) Female Reproductive Disorders: Denies Sexually Transmitted Disease: No HIV/AIDS: No Genitourinary: No Gastrointestinal: Yes Gastroesophageal Reflux, Hiatal Hernia, Ulcer Musculoskeletal: Yes (CHRONIC GENERALIZED PAIN ) Arthritis Endocrine: Yes Hypothyroidsim, Lupus Loss of Vision: Denies Hearing Impairment: Denies Cancer: No Psychosocial: Yes Anxiety, Bipolar, Personality Disorder, Depression Integumentary: Yes Psoriasis Blood Disorders: Yes (ANEMIA POST OP) Family Medical History Arthritis 19 FATHER 19 MOTHER Cardiovascular disease 19 FATHER Cataracts 19 MOTHER Completed stroke 19 MOTHER Dysphasia 19 FATHER FH: cirrhosis 19 MOTHER Glaucoma 19 MOTHER Hypercholesterolemia 19 FATHER Hypertension 19 FATHER 19 MOTHER Myocardial infarction 19 FATHER Osteoporosis 19 MOTHER No Family History of: AIDS Abdominal aortic aneurysm Mesa's disease Alcoholism Alzheimer's disease Aphasia Asthma Cancer of mouth Colon cancer Congenital disease Congenital heart disease Coronary thrombosis Cystic fibrosis Deafness or hearing loss Dementia Diabetes mellitus Drug abuse Fibrocystic disease of breast Gastroenteritis Headache disorder Infertility Kidney disease Neoplasm Not obtainable due to adoption Parkinson's disease Prostate cancer Psychosocial problem Respiratory disorder Seizure disorder Severe allergy Thyroid disease Tuberculosis Visual disorder GI Disease Review of Systems Time Seen by Provider: 07:29 Constitutional: Weakness, Malaise; No: Fever, Chills, Sweats, Other Eyes: No: Pain, Vision change, Conjunctivae inflammation, Eyelid inflammation, Other, Redness ENT: No: Ear pain, Ear discharge, Nose pain, Nose discharge, Nose congestion, Mouth pain, Mouth swelling, Throat pain, Throat swelling, Other Respiratory: Cough, Dry, Shortness of breath, SOB with excertion; No: Wheezing , Hemoptysis Cardiovascular: No: Chest Pain, Palpitations, Orthopnea, Paroxysmal Noc. Dyspnea, Edema, Lt Headedness, Other Gastrointestinal: No: Nausea, Vomiting, Abdominal Pain, Diarrhea, Constipation , Melena, Hematochezia, Other Genitourinary: No Dysuria, No Frequency, No Incontinence, No Hematuria, No Retention, No Other Neurological: Weakness Sepsis Event Evaluation Height, Weight, BMI Height: 5'5.00" Weight: 233lbs. 2.0oz. 105.760055fy; 38.8 BMI Method:Stated Exam Exam Vital Signs Date Time Temp Pulse Resp B/P (MAP) Pulse Ox O2 Delivery O2 Flow Rate FiO2 05/20/18 09:00 Nasal Cannula 3.00 05/20/18 05:03 98.1 82 20 150/81 (104) 95 Nasal Cannula 3.00 05/19/18 21:00 Nasal Cannula 3.00 05/19/18 20:43 94 Nasal Cannula 3.00 05/19/18 17:40 79 152/85 (107) 05/19/18 17:09 Nasal Cannula 3.00 05/19/18 15:53 98.2 71 16 172/78 (109) 98 Nasal Cannula 3.00 I & O 05/20/18 07:00 Intake Total 1440 ml Balance 1440 ml Height & Weight Height: 5'5.00" Weight: 233lbs. 2.0oz. 105.116673ka; 38.8 BMI Method:Stated General Appearance: No Apparent Distress, WD/WN HEENT: Normal ENT Inspection, Other (Has trach tube) Neck: Full Range of Motion, Normal Inspection Respiratory: No Accessory Muscle Use, No Respiratory Distress, Decreased Breath Sounds Cardiovascular: Regular Rate, Rhythm, No Murmur Gastrointestinal: non tender, soft Extremity: Normal Capillary Refill, Normal Inspection, Normal Range of Motion, Non Tender, No Calf Tenderness, No Pedal Edema Neurologic/Psychiatric: Alert, Oriented x3, No Motor/Sensory Deficits, Normal Mood/Affect Skin: Normal Color, Warm/Dry Lymphatic: No Adenopathy Assessment/Plan Assessment/Plan S/P ARDS/respiratory failure - tracheostomy from [place] -Check CT scan -PT's trach has been capped since her rehab admission. SHe does not have copious secretions or SOB. -Check CT scan of chest secondary to CXR report. COPD CAD hx Morbid obesity Hx of Bipolar/anxiety Depression MERCEDES GARZA DO May 20, 2018 11:44
--- NOTE | 2018-05-20 12:02 | Physical Therapy Daily Note ---
PT Daily Note-Current Subjective Patient in bed pre tx, agrees to PT with encouragement, has no complaints of pain. Will be co-treating with OT for 60 min this morning due to patient weakness, deconditioning, poor endurance, and safety, to shower. Appearance Patient in recliner post tx with nurse call, phone, tray, all needs met. Mental Status Patient Orientation: Person, Place Attachments: Oxygen Transfers Therapy Code Descriptions/Definitions Functional [place] Measure: 0=Not Assessed/NA 4=Minimal Assistance 1=Total Assistance 5=Supervision or Setup 2=Maximal Assistance 6=Modified [place] 3=Moderate Assistance 7=Complete [place] Therapy Quality Codes: 6 Independent with activity with or without an assistive device 5 Patient requires set up or clean up by helper. Patient completes activity by themselves 4 Supervision or touching assist (CGA). [place] provide cues , steadying assist 3 The helper provides less than half the effort to complete the activity 2 The helper provides more than half the effort to complete the activity 1 Dependent. The helper does all the effort to complete an activity 7 Patient refused to complete or attempt activity 9 The patient did not perform the activity before the current illness or injury 88 Not attempted due to Medical conditions or safety concerns Transfers (B, C, W/C) (FIM): 3 Scootin Rollin Supine to/from Sit: 3 Sit to/from Stand: 3 Bed to/from Chair: 3 Patient needs cues for hand placement with every transfer. She tries to get therapist to not make her stand, stating that she is too weak, but she does stand several times. Exercises standing in parallel bars x2 for about a minute each time Treatments bed mobility and transfers, patient had to perform a stand pivot transfer several times and stood several times for dressing and to get onto bedside commode. Patient also performed standing in parallel bars. Assessment Current Status: Fair Progress Patient was able to stand for 1 minutes x2 PT Short Term Goals Short Term Goals Time Frame: May 24, 2018 Transfers (B,C,W/C) (FIM): 3 Gait (FIM): 1 Gait Distance Comment: 5' Gait Level of Assist: 4 Gait Assistive Device: Parallel Bars Wheelchair (FIM): 1 Wheelchair Distance: 20' PT Extracorporeal Technician Goals Extracorporeal Technician Goals PT Intermediate Goals Time Frame: Jun 07, 2018 Transfers (B,C,W/C) (FIM): 4 Sit to Lying (QC): 4 Lying-Sitting on Side/Bed(QC): 4 Sit to Stand (QC): 4 Rollin Roll Left to Right (QC): 4 Chair/Ldv-la-Cnnez Xfer(QC): 3 Car Transfer (QC): 3 Gait (FIM): 1 Distance: 20' Walk 10 feet (QC): 4 Gait Level of Assist: 4 Gait Assistive Device: FWW Wheelchair (FIM): 2 Distance: 50' Wheelchair Level of Assist: 5 Wheel 50 feet with 2 turns (QC: 4 PT Plan Problem List Problem List: Activity Tolerance, Functional Strength, Safety, Balance, Gait, Transfer, Bed Mobility, ROM Treatment/Plan Treatment Plan: Continue Plan of Care Treatment Plan: Bed Mobility, Concurrent Therapy, Education, Functional Activity Fede, Functional Strength, Group Therapy, Gait, Safety, Therapeutic Exercise, Transfers Treatment Duration: Jun 07, 2018 Frequency: At least 5 of 7 days/Wk (IRF) Estimated Hrs Per Day: 1.5 hours per day Patient and/or Family Agrees t: Yes Safety Risks/Education Patient Education: Transfer Techniques, Correct Positioning, Safety Issues Teaching Recipient: Patient Teaching Methods: Demonstration, Discussion Response to Teaching: Reinforcement Needed Time/GCodes Time In: 1100 Time Out: 1200 Total Billed Treatment Time: 60 Total Billed Treatment 1 visit EX 10' FA 50' Co-treated for the whole 60 min. PT worked on bed mobility, transfers, sit to stand, standing, helped with dressing. OT worked on transfers, bathing, dressing, grooming, UE positioning during standing. CLAU SALAZAR PT May 20, 2018 12:02
[2018-05-20] MEDS: TRIAMCINOLONE 0.5% CR (KENALOG) 15 GM TUBE TOP SCH ×3 (12:05→20:48)
[2018-05-20 12:12] LABS: BASOPHILS % (AUTO) 0 % (0-10); EOSINOPHILS # (AUTO) 0.5 10^3/uL (0.0-0.3); EOSINOPHILS % (AUTO) 4 % (0-10); HEMATOCRIT 39 % (35-52); HEMOGLOBIN 11.6 G/DL (11.5-16.0); LYMPHOCYTES # (AUTO) 3.3 X 10^3 (1.0-4.0); LYMPHOCYTES % (AUTO) 27 % (12-44); MEAN CORPUSCULAR HEMOGLOBIN 28 PG (25-34); MEAN CORPUSCULAR HGB CONC 30 G/DL (32-36); MEAN CORPUSCULAR VOLUME 93 FL (80-99); MEAN PLATELET VOLUME 9.5 FL (7.4-10.4); MONOCYTES # (AUTO) 0.7 X 10^3 (0.0-1.0); MONOCYTES % (AUTO) 6 % (0-12); NEUTROPHILS # (AUTO) 7.5 X 10^3 (1.8-7.8); NEUTROPHILS % (AUTO) 62 % (42-75); PLATELET COUNT 573 10^3/uL (130-400); RED CELL DISTRIBUTION WIDTH 19.1 % (10.0-14.5)
[2018-05-20 12:33] LABS: ALANINE AMINOTRANSFERASE 16 U/L (0-55); ALBUMIN 3.5 GM/DL (3.2-4.5); ALKALINE PHOSPHATASE 89 U/L (40-136); BILIRUBIN,TOTAL 0.3 MG/DL (0.1-1.0); BUN/CREATININE RATIO 11; CALCIUM 9.2 MG/DL (8.5-10.1); CARBON DIOXIDE 28 MMOL/L (21-32); CHLORIDE 104 MMOL/L (98-107); CREATININE SERUM 0.89 MG/DL (0.60-1.30); GFR ESTIMATED > 60; GLUCOSE 113 MG/DL (70-105); MAGNESIUM 1.7 MG/DL (1.8-2.4); PHOSPHORUS 4.4 MG/DL (2.3-4.7); SODIUM 143 MMOL/L (135-145); TOTAL PROTEIN 6.2 GM/DL (6.4-8.2)
--- NOTE | 2018-05-20 13:21 | NUR ---
Pt is [employer] and consented to be on manager video games visitation list. Loading Manager will also provided Communion.
--- NOTE | 2018-05-20 13:29 | NUR ---
JAVA ANDROID DEVELOPER met with patient and daughter to complete initial assessment. Patient was alert and oriented 4 and agreeable to assessment. Patient has been hospitalized since March 05 and admitted to ARU from [facility]. Prior to hospitalization, patient resided alone in an lead level [facility] in [place], [place]. Prior to hospitalization patient reports independence with all tasks; however, took additional time for all tasks. Patient has no DME; however, is currently requiring Max A for all activities. . Patient identifies primary contact as daughter, of [place] ([phone]) and secondary contact as son, Moi of [place] ([phone]). works part time in [place] at [email or web address] ANDROID DEVELOPER verified PCP as Sylvia. Patient has Medicare and is looking into obtaining a secondary provider. JAVA ANDROID DEVELOPER reviewed typical rehabilitation length of stay and weekly team conferences with patient and daughter, they expressed no concerns at this time. JAVA ANDROID DEVELOPER will follow for appropriate discharge needs
--- NOTE | 2018-05-20 13:30 | NUR ---
[facility] NOTIFIED OF CONSULT FOR TOENAILS TO BE CUT
[2018-05-20] MEDS: RT-ADVAIR HFA 115/21 MCG PER PUFF IH SCH ×2 (14:10→19:39)
--- NOTE | 2018-05-20 14:12 | Speech Therapy Daily Note ---
Speech Daily Progress Note Subjective Date Seen by Provider: May 20, 2018 Time Seen by Provider: 00:30 Patient was sitting up in her chair resting when I arrived. Objective Patient completed memory exercises related to her daily activities with 80% accuracy given minimal cuing. Assessment Assessment Current Status: Good Progress Treatment Plan Continue Plan of Care Communication Comprehension: 3 Expression: 3 Social Cognition Social Interaction: 4 Problem Solvin Memory: 3 Speech Short Term Goals Short Term Goals Short Term Goals 1) Patient will recall information for safety awareness at 90% or greater with minimal cues. 2) Patient will recall new information from memory tasks at 90% accuracy or greater with minimal cues. 3) Patient will follow simple directions within her immediate living environment at 90% or greater with minimal cues. Speech Senior Living Goals Senior Living Goals Patient will improve safety awareness and independence with 90% accuracy. Speech-Plan Patient/Family Goals Patient/Family Goals: Patient plans to return home with family support following rehab. Treatment Plan Speech Therapy Treatment Plan: Continue Plan of Care Patient is scheduled to get her trach removed today or tomorrow. Treatment Duration: May 24, 2018 Frequency: 5 times per week Estimated Hrs Per Day: .5 hour per day Rehab Potential: Good Barriers to Learning: Patient has Alzheimer's Pt/Family Agrees to Plan: Yes Safety Risks/Education Teaching Recipient: Patient Teaching Methods: Discussion Response to Teaching: Verbalize Understanding Education Topics Provided: Safety within her room. Time Speech Therapy Time In: 13:30 Speech Therapy Time Out: 14:00 Total Billed Time: 30 Billed Treatment Time [address] May 20, 2018 14:12
[2018-05-20 14:13] LABS: ABG BASE EXCESS 5.7 MMOL/L (-2.5-2.5); ABG OXYGEN SATURATION 97 % (94-100); ABG PCO2 52 MMHG (35-45); ABG PH 7.39 (7.37-7.43); ABG PO2 75 MMHG (79-93); ABG TCO2 32.2 MMOL/L (21.0-31.0)
--- NOTE | 2018-05-20 14:14 | Occupational Ther Daily Note ---
OT Current Status-Daily Note Subjective Pt. does not report pain, but does state that she is very tired. Appearance Pt. in bed. Agrees to therapy session. Mental Status/Objective Patient Orientation: Person, Place Therapy Code Descriptions/Definitions Functional [place] Measure: 0=Not Assessed/NA 4=Minimal Assistance 1=Total Assistance 5=Supervision or Setup 2=Maximal Assistance 6=Modified [place] 3=Moderate Assistance 7=Complete [place] Attachments: Oxygen ADL-Treatment Therapy Code Descriptions/Definitions Functional [place] Measure: 0=Not Assessed/NA 4=Minimal Assistance 1=Total Assistance 5=Supervision or Setup 2=Maximal Assistance 6=Modified [place] 3=Moderate Assistance 7=Complete [place] Therapy Quality Codes: 6 Independent with activity with or without an assistive device 5 Patient requires set up or clean up by helper. Patient completes activity by themselves 4 Supervision or touching assist (CGA). [place] provide cues , steadying assist 3 The helper provides less than half the effort to complete the activity 2 The helper provides more than half the effort to complete the activity 1 Dependent. The helper does all the effort to complete an activity 7 Patient refused to complete or attempt activity 9 The patient did not perform the activity before the current illness or injury 88 Not attempted due to Medical conditions or safety concerns Grooming (FIM): 2 (Pt. attempts to comb hair, but is unable to fully get her hand up to her head.) Bathing (FIM): 2 (Pt. is able to wash face, upper chest, and attempts to wash her arms. OT washes all other parts.) Shower/Bathe Self (QC): 2 Upper Body (FIM): 2 (Pt. attempts to assist donning shirt, but OT does most of this for her.) Upper Body Dressing (QC): 2 Lower Body Dressing (FIM): 1 (Pt. is dependent for doffing/ donning socks, brief, and pants.) Lower Body Dressing (QC): 1 On/Off Footwear (QC): 1 Toileting (FIM): 2 (Pt. requires max assist to pull down and up pants. Pt. is able to attempt to cleanse front area after toileting.) Toileting Hygiene (QC): 2 Transfers (B, C, W/C) (FIM): 1 (Please see note.) Toilet/Commode Transfer (FIM): 1 Toilet Transfer (QC): 1 Shower Transfer(FIM): 1 Other Treatment Pt. seen by OT/PT at same time due to need for skilled treatment. Pt. fatigues very easily. OT initiated ADL training and shower while PT facilitated sit- stands and transfers. Pt. requires max assist supine-sit. Max x 1-2 for sit- stand and transfer to shower chair. Pt does attempt to assist with shower, but due to fatigue and limited ROM in bilateral shoulders, pt. has difficulty with this. OT assists with all shower needs. Pt. requires max/dependent assist with donning LE clothing due to fatigue and weakness. After ADLs in room, pt. was taken to therapy gym. Stood x 2-3 times with max assist x 1-2. Stood 30 seconds-1 minute each time. Went back to room and transferred to reclining chair in room with max assist. All needs met. Education OT Patient Education: Correct positioning, Modified ADL techniques, Progress toward Goal/Update tx plan, Purpose of tx/functional activities, Reviewed precautions, Rehab process, Transfer techniques Teaching Recipient: Patient Teaching Methods: Demonstration, Discussion Response to Teaching: Verbalize Understanding, Return Demonstration OT Short Term Goals Short Term Goals Time Frame: May 24, 2018 Eating(FIM): 5 Grooming(FIM): 5 Bathing(FIM): 3 Upper Body Dressing(FIM): 5 Lower Body Dressing(FIM): 2 Toileting(FIM): 1 (one person) Transfers (B,C,W/C) (FIM): 3 Toilet/Commode Transfer(FIM): 1 (one person) Additional Short Term Goals: 1-Demonstrate ADL Tasks, 2-Verbalize Understanding , 3-ImproveStrength/Fede 1=Demonstrate adherence to instructed precautions during ADL tasks. 2=Patient will verbalize/demonstrate understanding of assistive devices/ modifications for ADL. 3=Patient will improve strength/tolerance for activity to enable patient to perform ADL's. OT Longterm Goals Data Modeling Specialist Goals Time Frame: Jun 07, 2018 Eating (FIM): 7 Eating (QC): 6 Groomin Oral Hygiene (QC): 6 Bathing(FIM): 5 Shower/Bathe Self (QC): 5 Upper Body Dressing(FIM): 6 Upper Body Dressing (QC): 6 Lower Body Dressing(FIM): 6 Lower Body Dressing (QC): 6 On/Off Footwear (QC): 6 Toileting(FIM): 6 Toileting Hygiene (QC): 6 Toilet/Commode Transfer(FIM): 6 Toilet/Commode Transfer (QC): 6 Shower Transfer(FIM): 6 Additional Goals: 1-Demonstrate ADL Tasks, 2-Verbalize Understanding, 3- ImproveStrength/Fede 1=Demonstrate adherence to instructed precautions during ADL tasks. 2=Patient will verbalize/demonstrate understanding of assistive devices/ modifications for ADL. 3=Patient will improve strength/tolerance for activity to enable patient to perform ADL's. OT Education/Plan Problem List/Assessment Assessment: Decreased Activ Tolerance, Decreased UE Strength, Dependent Transfers, Impaired Bed Mobility, Impaired Coordination, Impaired Funct Balance , Impaired I ADL's, Impaired Self-Care Skills, Restricted Funct UE ROM Discharge Recommendations Plan/Recommendations: Continue POC Treatment Plan/Plan of Care Treatment,Training & Education: Yes Patient would benefit from OT for education, treatment and training to promote independence in ADL's, mobility, safety and/or upper extremity function for ADL' s. Plan of Care: ADL Retraining, Caregiver Training, Functional Mobility, Group Exercise/Act as Ind (education, exercise, activity tolerance, funct mobility, funtional actiities), UE Funct Exercise/Act, UE Neuromus Re-Ed/Coord, W/C Management Training, OTHER (energy conservation education) Treatment Duration: Jun 07, 2018 Frequency: At least 5 of 7 days/Wk (IRF) Estimated Hrs Per Day: 1.5 hours per day Agreement: Yes Rehab Potential: Fair Time/GCodes Start Time: 11:00 Stop Time: 12:00 Total Time Billed (hr/min): 60 Billed Treatment Time 1, ADL x 45minutes, FA x 15minutes Co-treat with PT. Please see above note for designated roles. LUIS VALLE OT May 20, 2018 14:14
[2018-05-20] MEDS ORDERED: FAMO20TA3 PO (14:15)
[2018-05-20 14:16] LABS: ALLENS TEST POSITIVE; INSPIRED O2 3 L; PATIENT TEMP 97.8; VENTILATOR NO
--- NOTE | 2018-05-20 14:16 | NUR ---
REVIEWED MED REC IT WAS REPORTED UPON ADMISSION IN PRIOR TO DISCHARGE TO [facility]. NOTE SEVERAL CHANGES WERE MADE AT [facility] THAT ARE NOT CURRENTLY REFLECTED ON THE HOME MED REC. ALSO NOTE THE MED REC WAS NOT COMPLETED BY [employer] IN BUT IT WAS REVIEWED BY THE NURSE.
--- NOTE | 2018-05-20 14:29 | Occupational Ther Daily Note ---
OT Current Status-Daily Note Subjective Pt. reports 10/10 pain all over. Nursing aware and getting pt. pain medication. Appearance Pt. up in chair. Agrees to work with OT/PT. Mental Status/Objective Patient Orientation: Person, Place Therapy Code Descriptions/Definitions Functional [place] Measure: 0=Not Assessed/NA 4=Minimal Assistance 1=Total Assistance 5=Supervision or Setup 2=Maximal Assistance 6=Modified [place] 3=Moderate Assistance 7=Complete [place] Attachments: Oxygen ADL-Treatment Therapy Code Descriptions/Definitions Functional [place] Measure: 0=Not Assessed/NA 4=Minimal Assistance 1=Total Assistance 5=Supervision or Setup 2=Maximal Assistance 6=Modified [place] 3=Moderate Assistance 7=Complete [place] Therapy Quality Codes: 6 Independent with activity with or without an assistive device 5 Patient requires set up or clean up by helper. Patient completes activity by themselves 4 Supervision or touching assist (CGA). [place] provide cues , steadying assist 3 The helper provides less than half the effort to complete the activity 2 The helper provides more than half the effort to complete the activity 1 Dependent. The helper does all the effort to complete an activity 7 Patient refused to complete or attempt activity 9 The patient did not perform the activity before the current illness or injury 88 Not attempted due to Medical conditions or safety concerns Transfers (B, C, W/C) (FIM): 2 (Max assist sit-stand.) Other Treatment OT/PT co-treat due to pt's fatigue level. OT facilitated UE stretch and hand placement with transfers while PT focused on transfer training. Pt. stood from reclining chair with max assist. Pivoted to wheelchair with mod/max assist. Pt. taken to therapy gym. Worked on standing at parallel bars. Pt. required max assist and able to stand approximately 1 minutes. Sat back down and reported that her shoulders were hurting. Did not give pain number at this time. OT assisted with gentle shoulder flexion to pt's toleration level. Pt. not able to tolerate past 45 degrees in flexion. States that her shoulders are sore. No subluxation noted. Pt. likely stiff from 3 month hospitalization with limited ROM. PT facilitated seated active LE exercises for increased overall strength. Pt. fatigues easily. Pt. taken back to room. All needs met. Pt. in wheelchair for speech therapy. Education OT Patient Education: Correct positioning, Exercise program, Modified ADL techniques, Progress toward Goal/Update tx plan, Purpose of tx/functional activities, Reviewed precautions, Rehab process, Transfer techniques Teaching Recipient: Patient Teaching Methods: Demonstration, Discussion Response to Teaching: Verbalize Understanding, Return Demonstration OT Short Term Goals Short Term Goals Time Frame: May 24, 2018 Eating(FIM): 5 Grooming(FIM): 5 Bathing(FIM): 3 Upper Body Dressing(FIM): 5 Lower Body Dressing(FIM): 2 Toileting(FIM): 1 (one person) Transfers (B,C,W/C) (FIM): 3 Toilet/Commode Transfer(FIM): 1 (one person) Additional Short Term Goals: 1-Demonstrate ADL Tasks, 2-Verbalize Understanding , 3-ImproveStrength/Fede 1=Demonstrate adherence to instructed precautions during ADL tasks. 2=Patient will verbalize/demonstrate understanding of assistive devices/ modifications for ADL. 3=Patient will improve strength/tolerance for activity to enable patient to perform ADL's. OT Fishing Boat Mate Goals Mcfp Goals Time Frame: Jun 07, 2018 Eating (FIM): 7 Eating (QC): 6 Groomin Oral Hygiene (QC): 6 Bathing(FIM): 5 Shower/Bathe Self (QC): 5 Upper Body Dressing(FIM): 6 Upper Body Dressing (QC): 6 Lower Body Dressing(FIM): 6 Lower Body Dressing (QC): 6 On/Off Footwear (QC): 6 Toileting(FIM): 6 Toileting Hygiene (QC): 6 Toilet/Commode Transfer(FIM): 6 Toilet/Commode Transfer (QC): 6 Shower Transfer(FIM): 6 Additional Goals: 1-Demonstrate ADL Tasks, 2-Verbalize Understanding, 3- ImproveStrength/Fede 1=Demonstrate adherence to instructed precautions during ADL tasks. 2=Patient will verbalize/demonstrate understanding of assistive devices/ modifications for ADL. 3=Patient will improve strength/tolerance for activity to enable patient to perform ADL's. OT Education/Plan Problem List/Assessment Assessment: Decreased Activ Tolerance, Decreased UE Strength, Dependent Transfers, Impaired Bed Mobility, Impaired Coordination, Impaired Funct Balance , Impaired I ADL's, Impaired Self-Care Skills, Restricted Funct UE ROM Discharge Recommendations Plan/Recommendations: Continue POC Treatment Plan/Plan of Care Treatment,Training & Education: Yes Patient would benefit from OT for education, treatment and training to promote independence in ADL's, mobility, safety and/or upper extremity function for ADL' s. Plan of Care: ADL Retraining, Caregiver Training, Functional Mobility, Group Exercise/Act as Ind (education, exercise, activity tolerance, funct mobility, funtional actiities), UE Funct Exercise/Act, UE Neuromus Re-Ed/Coord, W/C Management Training, OTHER (energy conservation education) Treatment Duration: Jun 07, 2018 Frequency: At least 5 of 7 days/Wk (IRF) Estimated Hrs Per Day: 1.5 hours per day Agreement: Yes Rehab Potential: Fair Time/GCodes Start Time: 13:00 Stop Time: 13:30 Total Time Billed (hr/min): 30 Billed Treatment Time 1, FA x 2 LUIS VALLE OT May 20, 2018 14:29
--- NOTE | 2018-05-20 14:44 | Physical Therapy Daily Note ---
PT Daily Note-Current Subjective Agrees to PT. Reports she feels tired this afternoon. Mental Status Patient Orientation: Person, Place, Time Transfers Therapy Code Descriptions/Definitions Functional [place] Measure: 0=Not Assessed/NA 4=Minimal Assistance 1=Total Assistance 5=Supervision or Setup 2=Maximal Assistance 6=Modified [place] 3=Moderate Assistance 7=Complete [place] Therapy Quality Codes: 6 Independent with activity with or without an assistive device 5 Patient requires set up or clean up by helper. Patient completes activity by themselves 4 Supervision or touching assist (CGA). [place] provide cues , steadying assist 3 The helper provides less than half the effort to complete the activity 2 The helper provides more than half the effort to complete the activity 1 Dependent. The helper does all the effort to complete an activity 7 Patient refused to complete or attempt activity 9 The patient did not perform the activity before the current illness or injury 88 Not attempted due to Medical conditions or safety concerns Treatments Co treat with OT due to need for extensive cues and assist, requiring skill of 2 caregivers to provide optimal care. Pt transferred sit to stand to transfer surfaces x 2 with mod assist to stand and turn with OT performing transfer as PT provided skilled cues for hand and foot placement as well as sequencing. Sit to cemetery vault installer // bars with same technique with OT performing the transfer and PT providing skilled cues and education. OT provided UE ROM and PT provided LE ther ex for AP, LAQ, and hip flexion x 15 each. Pt performed wc mobility with assist to propel as Pt used her feet to assist; again, both therapists provided skilled cues for technique and safety. Pt in room post treatment with needs met. Assessment Current Status: Good Progress Pt's transfers are improving and improved initiation this date. PT Short Term Goals Short Term Goals Time Frame: May 24, 2018 Transfers (B,C,W/C) (FIM): 3 Gait (FIM): 1 Gait Distance Comment: 5' Gait Level of Assist: 4 Gait Assistive Device: Parallel Bars Wheelchair (FIM): 1 Wheelchair Distance: 20' PT Long-Term Goals Tape Keller Operator Goals PT Long-Term Goals Time Frame: Jun 07, 2018 Transfers (B,C,W/C) (FIM): 4 Sit to Lying (QC): 4 Lying-Sitting on Side/Bed(QC): 4 Sit to Stand (QC): 4 Rollin Roll Left to Right (QC): 4 Chair/Txb-ge-Gjusb Xfer(QC): 3 Car Transfer (QC): 3 Gait (FIM): 1 Distance: 20' Walk 10 feet (QC): 4 Gait Level of Assist: 4 Gait Assistive Device: FWW Wheelchair (FIM): 2 Distance: 50' Wheelchair Level of Assist: 5 Wheel 50 feet with 2 turns (QC: 4 PT Plan Problem List Problem List: Activity Tolerance, Functional Strength, Safety, Balance, Gait, Transfer, Bed Mobility Treatment/Plan Treatment Plan: Continue Plan of Care Treatment Plan: Bed Mobility, Concurrent Therapy, Education, Functional Activity Fede, Functional Strength, Group Therapy, Gait, Safety, Therapeutic Exercise, Transfers Treatment Duration: Jun 07, 2018 Frequency: At least 5 of 7 days/Wk (IRF) Estimated Hrs Per Day: 1.5 hours per day Patient and/or Family Agrees t: Yes Safety Risks/Education Patient Education: Transfer Techniques, Safety Issues Teaching Recipient: Patient Teaching Methods: Demonstration, Discussion Response to Teaching: Reinforcement Needed Time/GCodes Time In: 1300 Time Out: 1330 Total Billed Treatment Time: 30 Total Billed Treatment visit FA 30 PILLO DAWSON PT May 20, 2018 14:44
--- NOTE | 2018-05-20 15:23 | Diagnostic Imaging Report ---
EXAMINATION: PA and lateral chest at 2:21 PM. INDICATION: Shortness of breath. FINDINGS: In the interval since the prior exam of 03/12/2018, the patient has been extubated and a tracheostomy tube has been inserted. The tracheostomy tube seems to be in good position. The heart size is within normal limits and stable when compared to the previous study. The prior exam also noted bibasilar atelectasis/infiltrate and bilateral pleural effusions with greater involvement on the right. On this exam, the right lung base does seem better aerated but there is still residual atelectasis/infiltrate and fluid involving the right lower lobe. There is a small amount of atelectasis/infiltrate and fluid in the left lung base. The upper lungs remain clear. The scar formation overlying the right apex seen previously is again evident and unchanged. The mediastinum is not widened. The osseous structures are intact. IMPRESSION: 1. The appearance of the chest has improved since the prior exam as the right lung base does seem better aerated; however, there is still residual atelectasis/infiltrate and fluid in each lower lobe. If further evaluation is desired, then a CT of the chest would be recommended. 2. There is no acute cardiopulmonary abnormality noted. 3. There is now a tracheostomy tube in place and the tracheostomy tube seems to be in good position. Dictated by: Dictated on workstation # [id number]
[2018-05-20 17:20] VITALS: BP 164/91
--- NOTE | 2018-05-20 19:55 | PM&R Progress Note ---
Subjective This was a face to face visit with the patient. Date Seen by Provider: May 20, 2018 Time Seen by Provider: 19:40 Subjective/Events-last exam Patient was seen in her room this evening Patient mod assist for transfers.appreciate Dr massey notes and orders Review of Systems Pulmonary: Dyspnea Neurological: Weakness Objective Physician Exam Last Set of Vital Signs Vital Signs Date Time Temp Pulse Resp B/P (MAP) Pulse Ox O2 Delivery O2 Flow Rate FiO2 05/20/18 19:39 96 Nasal Cannula 3.00 05/20/18 17:20 99.1 82 18 164/91 (115) Capillary Refill : I&O Intake and Output 05/20/18 00:00 Intake Total 1420 ml Output Total 500 ml Balance 920 ml Intake Oral 1420 ml Output Urine Total 500 ml # Voids 5 # [place] 2 General: Alert, Oriented X3, Cooperative, No Acute Distress HEENT: Atraumatic, PERRLA, EOMI, Mucous Memb Moist/[place] Neck: Other (Trach in Place) Lungs: Clear to Auscultation Heart: Regular Rate Abdomen: Normal Bowel Sounds, Soft, No Tenderness, Other (obese with peg site healing well) Extremities: Other (Trace ankle edema) Neuro: Other (Proximal weakness Both lower limbs Strength 3+/5 Both upper limbs ) Psych/Mental Status: Other (anxiety) Results Lab Data Laboratory Tests 05/20/18 12:00: White Blood Count 12.0H, Red Blood Count 4.20L, Hemoglobin 11.6, Hematocrit 39, Mean Corpuscular Volume 93, Mean Corpuscular Hemoglobin 28, Mean Corpuscular Hemoglobin Concent 30L, Red Cell Distribution Width 19.1H, Platelet Count 573H, Mean Platelet Volume 9.5, Neutrophils (%) (Auto) 62, Lymphocytes (%) (Auto) 27, Monocytes (%) (Auto) 6, Eosinophils (%) (Auto) 4, Basophils (%) (Auto) 0, Neutrophils # (Auto) 7.5, Lymphocytes # (Auto) 3.3, Monocytes # (Auto) 0.7, Eosinophils # (Auto) 0.5H, Basophils # (Auto) 0.0, Sodium Level 143, Potassium Level 4.0, Chloride Level 104, Carbon Dioxide Level 28, Anion Gap 11, Blood Urea Nitrogen 10, Creatinine 0.89, Estimat Glomerular Filtration Rate > 60, BUN/ Creatinine Ratio 11, Glucose Level 113H, Calcium Level 9.2, Corrected Calcium 9.6, Phosphorus Level 4.4, Magnesium Level 1.7L, Total Bilirubin 0.3, Aspartate Amino Transf (AST/SGOT) 23, Alanine Aminotransferase (ALT/SGPT) 16, Alkaline Phosphatase 89, B-Type Natriuretic Peptide 91.1, Total Protein 6.2L, Albumin 3.5 05/20/18 14:07: Blood Gas Puncture Site LEFT RADIAL, Blood Gas Patient Temperature 97.8, Arterial Blood pH 7.39, Arterial Blood Partial Pressure CO2 52H, Arterial Blood Partial Pressure O2 75L, Arterial Blood HCO3 31H, Arterial Blood Total CO2 32.2H , Arterial Blood Oxygen Saturation 97, Arterial Blood Base Excess 5.7H, Merlin Test POSITIVE, Blood Gas Ventilator Setting NO, Blood Gas Inspired Oxygen 3 L Assessment/Plan Assessment and Plan 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
[2018-05-20] MEDS: DONEPEZIL 10 MG (ARICEPT) TAB PO SCH (20:47)
[2018-05-20] MEDS: OLANZapine 5 MG (ZyPREXA) TAB PO SCH (20:47)
[2018-05-20] MEDS: ATORVASTATIN 40 MG (LIPITOR) TABLET PO SCH (20:47)
[2018-05-21 04:29] LABS: HEMOGLOBIN 10.6 G/DL (11.5-16.0); MEAN PLATELET VOLUME 9.7 FL (7.4-10.4); RED BLOOD COUNT 3.86 10^6/uL (4.35-5.85); RED CELL DISTRIBUTION WIDTH 18.5 % (10.0-14.5); WHITE BLOOD COUNT 12.1 10^3/uL (4.3-11.0)
[2018-05-21 04:50] LABS: ALANINE AMINOTRANSFERASE 12 U/L (0-55); ALBUMIN 3.2 GM/DL (3.2-4.5); ALKALINE PHOSPHATASE 83 U/L (40-136); BILIRUBIN,TOTAL 0.3 MG/DL (0.1-1.0); BUN/CREATININE RATIO 18; CALCIUM 9.1 MG/DL (8.5-10.1); CARBON DIOXIDE 30 MMOL/L (21-32); CHLORIDE 103 MMOL/L (98-107); CREATININE SERUM 0.72 MG/DL (0.60-1.30); GFR ESTIMATED > 60; GLUCOSE 94 MG/DL (70-105); POTASSIUM 3.9 MMOL/L (3.6-5.0); SODIUM 143 MMOL/L (135-145); TOTAL PROTEIN 5.4 GM/DL (6.4-8.2)
[2018-05-21 05:06] VITALS: BP 150/84
[2018-05-21] MEDS: PANTOPRAZOLE 40 MG (PROTONIX) TAB PO SCH ×2 (06:18→20:16)
[2018-05-21] MEDS: MULTIVIT W/MINERALS TAB (THERAGRAN M) PO SCH (06:18)
[2018-05-21] MEDS: HYDROcodone/APAP 10 MG/325 MG (LORTAB) TAB PO PRN ×3 (06:18→17:08)
[2018-05-21] MEDS: LACTOBACILLUS ACIDOPHILUS (PROBIOTIC) CAPSULE PO SCH ×3 (06:18→17:08)
[2018-05-21] MEDS: CYANOCOBALAMIN 1,000 MCG (VITAMIN B-12) TABLET PO SCH (06:18)
--- NOTE | 2018-05-21 08:20 | Progress Note (SOAP) ---
Subjective Time Seen by a Provider: 08:17 Subjective/Events-last exam Patient feeling better and positive today. Patient states the trach tube may be taken out pretty soon. Patient have a CAT scan of chest. Patient working hard to improve Objective Exam Vital Signs Date Time Temp Pulse Resp B/P (MAP) Pulse Ox O2 Delivery O2 Flow Rate FiO2 05/21/18 05:06 97.8 76 20 150/84 (106) 93 Nasal Cannula 3.00 05/20/18 22:20 Nasal Cannula 3.00 05/20/18 20:45 Nasal Cannula 3.00 05/20/18 19:39 96 Nasal Cannula 3.00 05/20/18 17:20 99.1 82 18 164/91 (115) 97 Nasal Cannula 3.00 05/20/18 14:10 96 Nasal Cannula 3.00 05/20/18 09:00 Nasal Cannula 3.00 I & O 05/21/18 07:00 Intake Total 1080 ml Balance 1080 ml Capillary Refill : General Appearance: No Apparent Distress, WD/WN HEENT: Normal ENT Inspection Neck: Full Range of Motion, Normal Inspection, Other (Trach in place) Respiratory: No Accessory Muscle Use, No Respiratory Distress, Decreased Breath Sounds Cardiovascular: Regular Rate, Rhythm, No Murmur Gastrointestinal: non tender, soft Results Lab Laboratory Tests 05/20/18 12:00 05/21/18 04:25 Laboratory Tests 05/20/18 12:00: White Blood Count 12.0H, Red Blood Count 4.20L, Hemoglobin 11.6, Hematocrit 39, Mean Corpuscular Volume 93, Mean Corpuscular Hemoglobin 28, Mean Corpuscular Hemoglobin Concent 30L, Red Cell Distribution Width 19.1H, Platelet Count 573H, Mean Platelet Volume 9.5, Neutrophils (%) (Auto) 62, Lymphocytes (%) (Auto) 27, Monocytes (%) (Auto) 6, Eosinophils (%) (Auto) 4, Basophils (%) (Auto) 0, Neutrophils # (Auto) 7.5, Lymphocytes # (Auto) 3.3, Monocytes # (Auto) 0.7, Eosinophils # (Auto) 0.5H, Basophils # (Auto) 0.0, Sodium Level 143, Potassium Level 4.0, Chloride Level 104, Carbon Dioxide Level 28, Anion Gap 11, Blood Urea Nitrogen 10, Creatinine 0.89, Estimat Glomerular Filtration Rate > 60, BUN/ Creatinine Ratio 11, Glucose Level 113H, Calcium Level 9.2, Corrected Calcium 9.6, Phosphorus Level 4.4, Magnesium Level 1.7L, Total Bilirubin 0.3, Aspartate Amino Transf (AST/SGOT) 23, Alanine Aminotransferase (ALT/SGPT) 16, Alkaline Phosphatase 89, B-Type Natriuretic Peptide 91.1, Total Protein 6.2L, Albumin 3.5 05/20/18 14:07: Blood Gas Puncture Site LEFT RADIAL, Blood Gas Patient Temperature 97.8, Arterial Blood pH 7.39, Arterial Blood Partial Pressure CO2 52H, Arterial Blood Partial Pressure O2 75L, Arterial Blood HCO3 31H, Arterial Blood Total CO2 32.2H , Arterial Blood Oxygen Saturation 97, Arterial Blood Base Excess 5.7H, Merlin Test POSITIVE, Blood Gas Ventilator Setting NO, Blood Gas Inspired Oxygen 3 L 05/21/18 04:25: White Blood Count 12.1H, Red Blood Count 3.86L, Hemoglobin 10.6L, Hematocrit 36 , Mean Corpuscular Volume 94, Mean Corpuscular Hemoglobin 28, Mean Corpuscular Hemoglobin Concent 29L, Red Cell Distribution Width 18.5H, Platelet Count 435H, Mean Platelet Volume 9.7, Sodium Level 143, Potassium Level 3.9, Chloride Level 103, Carbon Dioxide Level 30, Anion Gap 10, Blood Urea Nitrogen 13, Creatinine 0.72, Estimat Glomerular Filtration Rate > 60, BUN/Creatinine Ratio 18, Glucose Level 94, Calcium Level 9.1, Corrected Calcium 9.7, Total Bilirubin 0.3, Aspartate Amino Transf (AST/SGOT) 21, Alanine Aminotransferase (ALT/SGPT) 12, Alkaline Phosphatase 83, Total Protein 5.4L, Albumin 3.2 Assessment/Plan Assessment/Plan Assess & Plan/Chief Complaint Myopathy. COPD. Morbid obesity. Bipolar. Anxiety. Depression. Psoriasis. On ventilator. PEG tube removed. Coronary artery disease. GERD. Hypothyroid. Morbid obesity. . 05/21/18. Myopathy. COPD. Morbid obesity. Bipolar. Anxiety. Depression. Psoriasis. Coronary artery disease. Hypothyroid. Morbid obesity. Patient states she's working hard Clinical Quality Measures DVT/VTE Risk/Contraindication: Risk Factor Score Per Nursin RFS Level Per Nursing on Admit: 4+=Very High JOCELYNE MEI DO May 21, 2018 08:20
[2018-05-21] MEDS: LORATADINE (CLARITIN) 10 MG TAB PO SCH (08:25)
[2018-05-21] MEDS: SUCRALFATE 1 GM (CARAFATE) TAB PO SCH ×3 (08:25→20:16)
[2018-05-21] MEDS: MELOXICAM 7.5 MG (MOBIC) TABLET PO SCH (08:25)
[2018-05-21] MEDS: meTOprolol TARTRATE 50 MG (LOPRESSOR) TAB PO SCH ×2 (08:25→20:17)
[2018-05-21] MEDS: DOCUSATE SODIUM 100 MG (COLACE) CAP PO SCH ×2 (08:25→20:18)
[2018-05-21] MEDS: ARTIFICAL TEARS 0.4 ML UNIT DOSE (REFRESH PLUS) OU SCH ×3 (08:26→20:17)
[2018-05-21] MEDS: ENOXAPARIN 30 MG/0.3 ML (LOVENOX) SYR SC SCH (08:26)
--- NOTE | 2018-05-21 09:02 | Speech Therapy Daily Note ---
Speech Daily Progress Note Subjective Date Seen by Provider: May 21, 2018 Time Seen by Provider: 00:30 Patient was pleasant and cooperative. Objective Patient completed memory tasks for new information at 85% accuracy with min to mod verbal cuing. Treatment Plan Continue Plan of Care Communication Comprehension: 3 Expression: 3 Social Cognition Social Interaction: 4 Problem Solvin Memory: 3 Speech Short Term Goals Short Term Goals Short Term Goals 1) Patient will recall information for safety awareness at 90% or greater with minimal cues. 2) Patient will recall new information from memory tasks at 90% accuracy or greater with minimal cues. 3) Patient will follow simple directions within her immediate living environment at 90% or greater with minimal cues. Speech Fruit Thinner Goals Senior Care Goals Patient will improve safety awareness and independence with 90% accuracy. Speech-Plan Patient/Family Goals Patient/Family Goals: Patient plans to return home with family support post rehab. Treatment Plan Speech Therapy Treatment Plan: Continue Plan of Care Patient is progressing well with her memory and problem solving goals. Treatment Duration: May 24, 2018 Frequency: 5 times per week Estimated Hrs Per Day: .5 hour per day Rehab Potential: Fair Barriers to Learning: Patient has dementia. Pt/Family Agrees to Plan: Yes Safety Risks/Education Teaching Recipient: Patient Teaching Methods: Discussion Response to Teaching: Verbalize Understanding Education Topics Provided: Safety awareness. Time Speech Therapy Time In: 08:30 Speech Therapy Time Out: 09:00 Total Billed Time: 30 Billed Treatment Time 1FLOR[address] ST May 21, 2018 09:02
[2018-05-21] MEDS: TRIAMCINOLONE 0.5% CR (KENALOG) 15 GM TUBE TOP SCH ×3 (09:30→20:18)
[2018-05-21] MEDS: RT-ADVAIR HFA 115/21 MCG PER PUFF IH SCH ×2 (09:51→19:49)
--- NOTE | 2018-05-21 11:05 | Physical Therapy Daily Note ---
PT Daily Note-Current Subjective Patient in bed pre tx, agrees to PT but she needs to have a BM, she is already on a bedpan. Will be co-treating with OT due to poor strength, safety awareness , transfers, endurance. Appearance Patient in therapy post tx to continue with OT. Mental Status Patient Orientation: Person, Place, Situation Transfers Therapy Code Descriptions/Definitions Functional [place] Measure: 0=Not Assessed/NA 4=Minimal Assistance 1=Total Assistance 5=Supervision or Setup 2=Maximal Assistance 6=Modified [place] 3=Moderate Assistance 7=Complete [place] Therapy Quality Codes: 6 Independent with activity with or without an assistive device 5 Patient requires set up or clean up by helper. Patient completes activity by themselves 4 Supervision or touching assist (CGA). [place] provide cues , steadying assist 3 The helper provides less than half the effort to complete the activity 2 The helper provides more than half the effort to complete the activity 1 Dependent. The helper does all the effort to complete an activity 7 Patient refused to complete or attempt activity 9 The patient did not perform the activity before the current illness or injury 88 Not attempted due to Medical conditions or safety concerns Transfers (B, C, W/C) (FIM): 3 Scootin Rollin Supine to/from Sit: 3 Sit to/from Stand: 3 Bed to/from Chair: 3 Gait Training Gait (FIM): 1 Distance: 8'x3 Gait Level of Assist: 4 Gait Persons Needed: 1 Gait Assistive Device: Parallel Bars Wheelchair follow, min assist for ambulation, needed min/mod assist for standing from wheelchair. Exercises LAQ alternating for 5 min Treatments bed mobility and transfers, dressing, grooming, toileting, ambulation, functional strengthening Assessment Current Status: Fair Progress improved ambulation PT Short Term Goals Short Term Goals Time Frame: May 24, 2018 Transfers (B,C,W/C) (FIM): 3 Gait (FIM): 1 Gait Distance Comment: 5' Gait Level of Assist: 4 Gait Assistive Device: Parallel Bars Wheelchair (FIM): 1 Wheelchair Distance: 20' PT Alf Goals Alf Goals PT Mercury Cell Cleaner Goals Time Frame: Jun 07, 2018 Transfers (B,C,W/C) (FIM): 4 Sit to Lying (QC): 4 Lying-Sitting on Side/Bed(QC): 4 Sit to Stand (QC): 4 Rollin Roll Left to Right (QC): 4 Chair/Qvr-og-Cwiag Xfer(QC): 3 Car Transfer (QC): 3 Gait (FIM): 1 Distance: 20' Walk 10 feet (QC): 4 Gait Level of Assist: 4 Gait Assistive Device: FWW Wheelchair (FIM): 2 Distance: 50' Wheelchair Level of Assist: 5 Wheel 50 feet with 2 turns (QC: 4 PT Plan Problem List Problem List: Activity Tolerance, Functional Strength, Safety, Balance, Gait, Transfer, Bed Mobility, ROM Treatment/Plan Treatment Plan: Continue Plan of Care Treatment Plan: Bed Mobility, Concurrent Therapy, Education, Functional Activity Fede, Functional Strength, Group Therapy, Gait, Safety, Therapeutic Exercise, Transfers Treatment Duration: Jun 07, 2018 Frequency: At least 5 of 7 days/Wk (IRF) Estimated Hrs Per Day: 1.5 hours per day Patient and/or Family Agrees t: Yes Safety Risks/Education Patient Education: Gait Training, Transfer Techniques, Correct Positioning, Safety Issues Teaching Recipient: Patient Teaching Methods: Demonstration, Discussion Response to Teaching: Reinforcement Needed Time/GCodes Time In: 1000 Time Out: 1100 Total Billed Treatment Time: 60 Total Billed Treatment 1 visit GT 20' FA 40' co-treated with OT for 60 min. PT performed bed mobility, transfers, ambulation , LE exercises, positioning during grooming and dressing. OT performed toileting, dressing, grooming, UE positioning during ambulation. CLAU SALAZAR PT May 21, 2018 11:05
[2018-05-21] MEDS: SCOPOLAMINE 1.5 MG (TRANSDERM-SCOP) PATCH TD SCH (11:21)
[2018-05-21] MEDS: PATCH REMOVAL TP SCH (11:27)
--- NOTE | 2018-05-21 11:39 | Occupational Ther Daily Note ---
OT Current Status-Daily Note Subjective Pt. states that she "hurts all over" but does not state a specific pain level. Nursing notified and gave pt. pain medication. Appearance Pt. in bed. Agrees to work with OT. Mental Status/Objective Patient Orientation: Person, Place Therapy Code Descriptions/Definitions Functional [place] Measure: 0=Not Assessed/NA 4=Minimal Assistance 1=Total Assistance 5=Supervision or Setup 2=Maximal Assistance 6=Modified [place] 3=Moderate Assistance 7=Complete [place] ADL-Treatment Therapy Code Descriptions/Definitions Functional [place] Measure: 0=Not Assessed/NA 4=Minimal Assistance 1=Total Assistance 5=Supervision or Setup 2=Maximal Assistance 6=Modified [place] 3=Moderate Assistance 7=Complete [place] Therapy Quality Codes: 6 Independent with activity with or without an assistive device 5 Patient requires set up or clean up by helper. Patient completes activity by themselves 4 Supervision or touching assist (CGA). Ethel provide cues , steadying assist 3 The helper provides less than half the effort to complete the activity 2 The helper provides more than half the effort to complete the activity 1 Dependent. The helper does all the effort to complete an activity 7 Patient refused to complete or attempt activity 9 The patient did not perform the activity before the current illness or injury 88 Not attempted due to Medical conditions or safety concerns Grooming (FIM): 3 (Pt. able to brush teeth at sink at wheelchair level. Unable to brush hair. OT did this for her.) Oral Hygiene (QC): 4 Upper Body (FIM): 3 (Pt. requires mod assist to don shirt. Pt. is able to attempt threading sleeves to elbow, and then requires assistance to don over shoulders and head. Able to assist with pulling shirt down.) Upper Body Dressing (QC): 3 Lower Body Dressing (FIM): 1 (Pt. requires max assist to don brief and pants over feet. Max assist for stand while another person dons over hips. Dependent with slipper socks.) Lower Body Dressing (QC): 1 On/Off Footwear (QC): 1 Toileting (FIM): 1 (Pt. requests bed pans as she has to urinate in a hurry. Pt. is able to roll while OT places bedpan. Pt. had BM and requires dependent assistance to cleanse self.) Toileting Hygiene (QC): 1 Transfers (B, C, W/C) (FIM): 2 (Max assist supine-sit and sit-stand. Once in stance, she is able to take small steps to pivot to wheelchair. Occassionally requires assistance of another person close by.) Other Treatment OT/PT co-treated due to pt's fatigue level, and need for skilled assistance. OT facilitated ADLs in room while PT educated and encouraged correct transfer training. After ADLs, pt. went to therapy gym via wheelchair. Stood in parallel bars x 3 with max assist of one person, and min assist of another person behind her. Able to ambulate down the length of parallel bars with assistance. Please see PT note. Pt. fatigues very quickly and has to have multiple breaks. After PT left treatment session, OT assisted with UE AROM in all planes. Noted that pt. has limited bilateral shoulder ROM, and weakness all over. Pt. completed bilateral shoulder flexion exercises, elbow flexion exercises, wrist extension exercises, hand squeezes, and coordination exercises , all x 10 reps. Pt. fatigues quickly. Pt. is taken back to room and encouraged to use feet to propel herself while in wheelchair. Pt. requests to stay up in wheelchair, as she will have CT of her chest soon. All needs are met. Education OT Patient Education: Correct positioning, Exercise program, Modified ADL techniques, Progress toward Goal/Update tx plan, Purpose of tx/functional activities, Reviewed precautions, Rehab process, Transfer techniques Teaching Recipient: Patient Teaching Methods: Demonstration, Discussion Response to Teaching: Verbalize Understanding, Return Demonstration OT Short Term Goals Short Term Goals Time Frame: May 24, 2018 Eating(FIM): 5 Grooming(FIM): 5 Bathing(FIM): 3 Upper Body Dressing(FIM): 5 Lower Body Dressing(FIM): 2 Toileting(FIM): 1 (one person) Transfers (B,C,W/C) (FIM): 3 Toilet/Commode Transfer(FIM): 1 (one person) Additional Short Term Goals: 1-Demonstrate ADL Tasks, 2-Verbalize Understanding , 3-ImproveStrength/Fede 1=Demonstrate adherence to instructed precautions during ADL tasks. 2=Patient will verbalize/demonstrate understanding of assistive devices/ modifications for ADL. 3=Patient will improve strength/tolerance for activity to enable patient to perform ADL's. OT Salvage Laborer Goals Jail Goals Time Frame: Jun 07, 2018 Eating (FIM): 7 Eating (QC): 6 Groomin Oral Hygiene (QC): 6 Bathing(FIM): 5 Shower/Bathe Self (QC): 5 Upper Body Dressing(FIM): 6 Upper Body Dressing (QC): 6 Lower Body Dressing(FIM): 6 Lower Body Dressing (QC): 6 On/Off Footwear (QC): 6 Toileting(FIM): 6 Toileting Hygiene (QC): 6 Toilet/Commode Transfer(FIM): 6 Toilet/Commode Transfer (QC): 6 Shower Transfer(FIM): 6 Additional Goals: 1-Demonstrate ADL Tasks, 2-Verbalize Understanding, 3- ImproveStrength/Fede 1=Demonstrate adherence to instructed precautions during ADL tasks. 2=Patient will verbalize/demonstrate understanding of assistive devices/ modifications for ADL. 3=Patient will improve strength/tolerance for activity to enable patient to perform ADL's. OT Education/Plan Problem List/Assessment Assessment: Decreased Activ Tolerance, Decreased UE Strength, Dependent Transfers, Impaired Bed Mobility, Impaired Coordination, Impaired Funct Balance , Impaired I ADL's, Impaired Self-Care Skills, Restricted Funct UE ROM Discharge Recommendations Plan/Recommendations: Continue POC Treatment Plan/Plan of Care Treatment,Training & Education: Yes Patient would benefit from OT for education, treatment and training to promote independence in ADL's, mobility, safety and/or upper extremity function for ADL' s. Plan of Care: ADL Retraining, Caregiver Training, Functional Mobility, Group Exercise/Act as Ind (education, exercise, activity tolerance, funct mobility, funtional actiities), UE Funct Exercise/Act, UE Neuromus Re-Ed/Coord, W/C Management Training, OTHER (energy conservation education) Treatment Duration: Jun 07, 2018 Frequency: At least 5 of 7 days/Wk (IRF) Estimated Hrs Per Day: 1.5 hours per day Agreement: Yes Rehab Potential: Fair Time/GCodes Start Time: 10:00 Stop Time: 11:20 Total Time Billed (hr/min): 80 Billed Treatment Time 1, ADL x 45minutes, FA x 15minutes, Ex x 20minutes LUIS VALLE OT May 21, 2018 11:39
--- NOTE | 2018-05-21 12:00 | Physical Therapy Daily Note ---
PT Daily Note-Current Subjective Patient in wheelchair at bedside pre tx, agrees to PT, will perform seated exercises. Appearance Patient in wheelchair at bedside post tx, has nurse call, phone, tray, all needs met. Mental Status Patient Orientation: Person, Place, Situation Transfers Therapy Code Descriptions/Definitions Functional [place] Measure: 0=Not Assessed/NA 4=Minimal Assistance 1=Total Assistance 5=Supervision or Setup 2=Maximal Assistance 6=Modified [place] 3=Moderate Assistance 7=Complete [place] Therapy Quality Codes: 6 Independent with activity with or without an assistive device 5 Patient requires set up or clean up by helper. Patient completes activity by themselves 4 Supervision or touching assist (CGA). [place] provide cues , steadying assist 3 The helper provides less than half the effort to complete the activity 2 The helper provides more than half the effort to complete the activity 1 Dependent. The helper does all the effort to complete an activity 7 Patient refused to complete or attempt activity 9 The patient did not perform the activity before the current illness or injury 88 Not attempted due to Medical conditions or safety concerns Exercises Seated Therapy Exercises: Ankle pumps, Long arc quads, Hip flexion, Hip abd/add Seated Reps: 20 Treatments functional strengthening Assessment Current Status: Fair Progress PT Short Term Goals Short Term Goals Time Frame: May 24, 2018 Transfers (B,C,W/C) (FIM): 3 Gait (FIM): 1 Gait Distance Comment: 5' Gait Level of Assist: 4 Gait Assistive Device: Parallel Bars Wheelchair (FIM): 1 Wheelchair Distance: 20' PT Detention Goals Abstract Checker Goals PT Detention Goals Time Frame: Jun 07, 2018 Transfers (B,C,W/C) (FIM): 4 Sit to Lying (QC): 4 Lying-Sitting on Side/Bed(QC): 4 Sit to Stand (QC): 4 Rollin Roll Left to Right (QC): 4 Chair/Bka-jq-[id number] Xfer(QC): 3 Car Transfer (QC): 3 Gait (FIM): 1 Distance: 20' Walk 10 feet (QC): 4 Gait Level of Assist: 4 Gait Assistive Device: FWW Wheelchair (FIM): 2 Distance: 50' Wheelchair Level of Assist: 5 Wheel 50 feet with 2 turns (QC: 4 PT Plan Problem List Problem List: Activity Tolerance, Functional Strength, Safety, Balance, Gait, Transfer, Bed Mobility, ROM Treatment/Plan Treatment Plan: Continue Plan of Care Treatment Plan: Bed Mobility, Concurrent Therapy, Education, Functional Activity Fede, Functional Strength, Group Therapy, Gait, Safety, Therapeutic Exercise, Transfers Treatment Duration: Jun 07, 2018 Frequency: At least 5 of 7 days/Wk (IRF) Estimated Hrs Per Day: 1.5 hours per day Patient and/or Family Agrees t: Yes Safety Risks/Education Patient Education: Correct Positioning, Safety Issues Teaching Recipient: Patient Teaching Methods: Demonstration, Discussion Response to Teaching: Reinforcement Needed Time/GCodes Time In: 1150 Time Out: 1200 Total Billed Treatment Time: 10 Total Billed Treatment 1 visit EX CLAU SALEH PT May 21, 2018 12:00
[2018-05-21] MEDS: ONDANSETRON 8 MG (ZOFRAN) ORAL DISSOLVE TAB PO PRN (12:30)
[2018-05-21] MEDS ORDERED: RECEIVED CONTRAST (Hold Metformin) IV SCH (12:45)
[2018-05-21] MEDS ORDERED: NS 100 ML (IVPB) BAG IV ONE (12:45)
[2018-05-21] MEDS ORDERED: IOHEXOL 350 MG/ML 100 ML (OMNIPAQUE 350) VIAL IV ONE (12:45)
--- NOTE | 2018-05-21 14:01 | NUR ---
3 different RN's have attempted to start IV for CT Lungs w contrast; unsuccessfully. Notified Dr. Berman & rec'd order for Anesthesia to start.
--- NOTE | 2018-05-21 14:07 | NUR ---
water taxi driver, Mauricio, in room to attempt to start IV. Pt refused. States, "I want to finish my lunch." He accommodated pt, stated that he would come back after she was done eating.
--- NOTE | 2018-05-21 15:01 | Podiatry Progress Note ---
Standard Progress Note Progress Notes/Assess & Plan Date Seen by a Provider: May 21, 2018 Time Seen by a Provider: 15:00 Progress/Assessment & Plan Consult dictated. Foot care given. She is to follow up as needed. Final Diagnosis Idiopathic Neuropathy, Onychomycosis CLAIRE ORTIZ DPM May 21, 2018 15:01
--- NOTE | 2018-05-21 15:25 | CONSULTATION REPORT ---
DATE OF SERVICE: 05/21/2018 REASON FOR CONSULT: Foot care. HISTORY OF PRESENT ILLNESS: This is a 58-year-old female, who was admitted from an outside facility due to exacerbation of her COPD. The patient had internal physical therapy and rehabilitation performed. She has difficulty reaching for and caring for her feet and is complaining now about toenails especially. She has pain with shoe gear and ambulation. She has very minimal ambulation at this point. PAST MEDICAL HISTORY: Includes coronary artery disease, COPD, GERD, hypothyroidism, morbid obesity, pneumonia and history of tobacco use. PAST SURGICAL HISTORY: Include colectomy, colostomy, lumpectomy, appendectomy, and hysterectomy. ALLERGIES: SHE IS ALLERGIC TO CLINDAMYCIN, CODEINE, MEPERIDINE AND MORPHINE. CURRENT MEDICATIONS: Are listed on the patient's chart. SOCIAL HISTORY: The patient has lived in [place] for quite some time in an apartment, lives alone and she is disabled. PHYSICAL EXAMINATION: GENERAL: This is a well-developed female in no apparent distress. EXTREMITIES: She has 0/4 dorsalis pedis pulse on the right, 1/4 on the left, 2/4 posterior tibial pulse bilaterally. Cap refill time is less than 3 seconds. Cool skin. Temperature is noted to the digits bilaterally. NEUROLOGIC: The patient has intact protective sensation per 10 gram monofilament wire examination bilaterally. Absent vibratory sensation to the forefoot bilaterally. DERMATOLOGIC: She has thick yellow dystrophic toenails with subungual debris associated with all 10 toenails. MUSCULOSKELETAL FINDING: She has 4/5 muscle strength to the four major quadrants of the foot. Adductovarus contracture noted to the fifth digit bilaterally. ASSESSMENT: Idiopathic neuropathy, atherosclerosis, onychomycosis, Hammer digit syndrome. PLAN: The toenails were debrided manually and mechanically. Betadine applied. We discussed ongoing treatment, which upon discharge, she is welcome to follow up in our office. Oral and topical antifungals would be appropriate as well as regular nail treatment. Due to her disability, I doubt she will be able to care for her feet extensively in the near future. We also briefly discussed neuropathy and the necessary precautions in regards to protecting her feet. We will see the patient back as needed. Job ID: [id number] DocumentID: [id number] Dictated Date: 05/21/2018 15:00:01 Paralegal Secretary Date: 05/21/2018 15:24:12 Dictated By: CLAIRE ORTIZ DPM
--- NOTE | 2018-05-21 15:31 | NUR ---
Down for CT scan Lungs
--- NOTE | 2018-05-21 16:14 | PM&R Progress Note ---
Subjective This was a face to face visit with the patient. Date Seen by Provider: May 21, 2018 Time Seen by Provider: 07:50 Subjective/Events-last exam Patient was seen in her room this AM Discussed case with DR Berman CT Chest to be done first prior to decannulation Report pending CXR reveals residual infiltrate/Atelectasis both bases Patient Min to mod assist for transfers Review of Systems General: Fatigue Pulmonary: Dyspnea Neurological: Weakness Objective Physician Exam Last Set of Vital Signs Vital Signs Date Time Temp Pulse Resp B/P (MAP) Pulse Ox O2 Delivery O2 Flow Rate FiO2 05/21/18 09:52 94 3.00 05/21/18 08:42 Nasal Cannula 05/21/18 05:06 97.8 76 20 150/84 (106) Capillary Refill : I&O Intake and Output 05/21/18 00:00 Intake Total 1280 ml Balance 1280 ml Intake Oral 1280 ml # Voids 5 # Urine Diapers 1 # Bowel Movements 1 General: Alert, Oriented X3, Cooperative, No Acute Distress HEENT: Atraumatic, PERRLA, EOMI, Mucous Memb Moist/[place] Neck: Other (Trach in Place) Lungs: Clear to Auscultation Heart: Regular Rate Abdomen: Normal Bowel Sounds, Soft, No Tenderness, Other (obese with peg site healing well) Extremities: Other (Trace ankle edema) Neuro: Other (Proximal weakness Both lower limbs Strength 3+/5 Both upper limbs ) Psych/Mental Status: Other (anxiety) Results Lab Data Laboratory Tests 05/20/18 12:00: White Blood Count 12.0H, Red Blood Count 4.20L, Hemoglobin 11.6, Hematocrit 39, Mean Corpuscular Volume 93, Mean Corpuscular Hemoglobin 28, Mean Corpuscular Hemoglobin Concent 30L, Red Cell Distribution Width 19.1H, Platelet Count 573H, Mean Platelet Volume 9.5, Neutrophils (%) (Auto) 62, Lymphocytes (%) (Auto) 27, Monocytes (%) (Auto) 6, Eosinophils (%) (Auto) 4, Basophils (%) (Auto) 0, Neutrophils # (Auto) 7.5, Lymphocytes # (Auto) 3.3, Monocytes # (Auto) 0.7, Eosinophils # (Auto) 0.5H, Basophils # (Auto) 0.0, Sodium Level 143, Potassium Level 4.0, Chloride Level 104, Carbon Dioxide Level 28, Anion Gap 11, Blood Urea Nitrogen 10, Creatinine 0.89, Estimat Glomerular Filtration Rate > 60, BUN/ Creatinine Ratio 11, Glucose Level 113H, Calcium Level 9.2, Corrected Calcium 9.6, Phosphorus Level 4.4, Magnesium Level 1.7L, Total Bilirubin 0.3, Aspartate Amino Transf (AST/SGOT) 23, Alanine Aminotransferase (ALT/SGPT) 16, Alkaline Phosphatase 89, B-Type Natriuretic Peptide 91.1, Total Protein 6.2L, Albumin 3.5 05/20/18 14:07: Blood Gas Puncture Site LEFT RADIAL, Blood Gas Patient Temperature 97.8, Arterial Blood pH 7.39, Arterial Blood Partial Pressure CO2 52H, Arterial Blood Partial Pressure O2 75L, Arterial Blood HCO3 31H, Arterial Blood Total CO2 32.2H , Arterial Blood Oxygen Saturation 97, Arterial Blood Base Excess 5.7H, Merlin Test POSITIVE, Blood Gas Ventilator Setting NO, Blood Gas Inspired Oxygen 3 L 05/21/18 04:25: White Blood Count 12.1H, Red Blood Count 3.86L, Hemoglobin 10.6L, Hematocrit 36 , Mean Corpuscular Volume 94, Mean Corpuscular Hemoglobin 28, Mean Corpuscular Hemoglobin Concent 29L, Red Cell Distribution Width 18.5H, Platelet Count 435H, Mean Platelet Volume 9.7, Sodium Level 143, Potassium Level 3.9, Chloride Level 103, Carbon Dioxide Level 30, Anion Gap 10, Blood Urea Nitrogen 13, Creatinine 0.72, Estimat Glomerular Filtration Rate > 60, BUN/Creatinine Ratio 18, Glucose Level 94, Calcium Level 9.1, Corrected Calcium 9.7, Total Bilirubin 0.3, Aspartate Amino Transf (AST/SGOT) 21, Alanine Aminotransferase (ALT/SGPT) 12, Alkaline Phosphatase 83, Total Protein 5.4L, Albumin 3.2 Assessment/Plan Assessment and Plan 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
--- NOTE | 2018-05-21 16:20 | Individualized Plan of Care ---
Individualized Plan of Care Rehab Nursing IPOC Order Admission Date May 17, 2018 at 14:10 Current Orders Orders Pt Evaluate/Treat Request (05/17/18 12:07) Request Ot Evaluate & Treat (05/17/18 12:07) Request For Cognitive Services (05/17/18 12:07) Admission Order(Inpt,Obs,Sdc) (05/17/18 14:22) Oxygen Delivery Set Up (05/17/18 14:23) Oxygen-Administer (05/17/18 14:23) Code/Resuscitation (05/17/18 14:23) Carboxymethylcell Ophth Soln (Refresh Pl (05/17/18 21:00) Carboxymethylcell Ophth Soln (Refresh Pl (05/17/18 14:30) Atorvastatin Tablet (Lipitor) (05/17/18 21:00) Non-Formulary Medication (Non-Formulary (05/17/18 21:00) Cyanocobalamin Tablet (Vitamin B-12 Tabl (05/18/18 07:00) Donepezil Tablet (Aricept Tablet) (05/17/18 21:00) Loratadine Tablet (Claritin Tablet) (05/18/18 09:00) Meloxicam Tablet (Mobic Tablet) (05/18/18 09:00) Metoprolol Tartrate (Ir) Tab (Lopressor (05/17/18 21:00) Therapeutic Multivitamin Tab (Vitamins, (05/18/18 07:00) Olanzapine Tablet (Zyprexa Tablet) (05/17/18 21:00) Pantoprazole Tablet (Protonix Tablet) (05/17/18 21:00) Sucralfate Tablet (Carafate Tablet) (05/17/18 21:00) Acetaminophen Tablet/Caplet (Tylenol T (05/17/18 14:30) Hydrocodone/Apap 10/325 Tablet (Lortab 1 (05/17/18 14:30) Polyethylene Glycol Powder Pkt (Miralax (05/17/18 14:30) General/Regular (05/17/18 Dinner) Consult Family Medicine (05/17/18 14:23) Non-Formulary Medication (Non-Formulary (05/17/18 21:00) Non-Formulary Medication (Non-Formulary (05/18/18 09:00) Non-Formulary Medication (Non-Formulary (05/17/18 14:45) Follow Hypoglycemia Protocol (05/17/18 14:49) Fluticasone/Salmeterol Common (Advair 11 (05/17/18 20:00) Lactobacillus Acidophilus Cap (Acidophil (05/17/18 17:00) Patient Visit (05/17/18 ) Pt Eval High Complexity (05/17/18 ) Exercise Therap, Ea 15 Min (05/17/18 ) Functional Activities, Ea 15 (05/17/18 ) Tracheostomy Care (05/17/18 16:14) Consult Physician (05/17/18 16:15) Patient Visit (05/17/18 ) Speech Sound Lang Comp (05/17/18 ) Sequential Compression Device 08,20 (05/17/18 16:41) Dvt/Vte Risk - Notifiy Physici 08 (05/17/18 16:41) Nursing Communication (Order) (05/17/18 17:11) Ondansetron Oral Dissolve Tab (Zofran (05/18/18 01:00) Ondansetron Oral Dissolve Tab (Zofran O (05/18/18 13:00) Enoxaparin Injection (Lovenox Injection) (05/18/18 09:00) Enoxaparin Injection (Lovenox Injection) (05/18/18 09:00) Non-Formulary Medication (Non-Formulary (05/18/18 09:00) Docusate Sodium Capsule (Colace Capsule) (05/18/18 11:00) Scopolamine Patch (Transderm-Scop Patch) (05/18/18 11:00) Patch Removal (Patch Removal) (05/21/18 11:00) Patient Visit (05/18/18 ) Functional Activities, Ea 15 (05/18/18 ) Exercise Therap, Ea 15 Min (05/18/18 ) Order Packer Or Packager-Inpt Rehab Con (05/19/18 11:05) Triamcinolone 0.5% Cream (Kenalog 0.5% C (05/20/18 09:00) Comprehensive Metabolic Panel (05/21/18 06:00) Cbc No Diff (05/21/18 06:00) Chest Pa/Lat (2 View) (05/20/18 11:41) Arterial Blood Gas (05/20/18 14:07) BNP (05/20/18 11:41) Comprehensive Metabolic Panel (05/20/18 11:41) Cbc With Automated Diff (05/20/18 11:41) Magnesium (05/20/18 11:41) Phosphorus (05/20/18 11:41) Patient Visit (05/20/18 ) Functional Activities, Ea 15 (05/20/18 ) Exercise Therap, Ea 15 Min (05/20/18 ) Patient Visit (05/20/18 ) Functional Activities, Ea 15 (05/20/18 ) Arterial Blood Draw (05/20/18 ) Patient Visit (05/20/18 ) Treat. Speech/Lang/Voice (05/20/18 ) Ct Chest W (05/21/18 07:55) Patient Visit (05/21/18 ) Functional Activities, Ea 15 (05/21/18 ) Gait Training, Ea 15 Min (05/21/18 ) Iohexol Injection (Omnipaque 350 Mg/Ml 1 (05/21/18 12:45) Contrast Received (Contrast Received) (05/21/18 12:45) Ns (Ivpb) (Sodium Chloride 0.9% Ivpb Bag (05/21/18 12:45) Iv Start Anesthesia (Order) (05/21/18 14:00) Patient Visit (05/21/18 ) Treat. Speech/Lang/Voice (05/21/18 ) Consult Podiatry (05/21/18 14:47) Rehab Nursing Orders: Disease Management & Educaiton, DVT Prophylaxis, Fall Prevention, Infection Prevention, Medication Management & Education, Management of Risks & Complications, Management of Skin Intergrity, Nutrition Management, Pain Management, Patient/Family Support Other Nursing Orders: Trach care PT IPOC Problem List: Activity Tolerance, Functional Strength, Safety, Balance, Gait, Transfer, Bed Mobility, ROM Treatment Plan: Continue Plan of Care Bed Mobility, Concurrent Therapy, Education, Functional Activity Fede, Functional Strength, Group Therapy, Gait, Safety, Therapeutic Exercise, Transfers Treatment Duration: Jun 07, 2018 Frequency: At least 5 of 7 days/Wk (IRF) Estimated Hrs Per Day: 1.5 hours per day OT IPOC Problems: Decreased Activ Tolerance, Decreased UE Strength, Dependent Transfers , Impaired Bed Mobility, Impaired Coordination, Impaired Funct Balance, Impaired I ADL's, Impaired Self-Care Skills, Restricted Funct UE ROM OT Treatment, Training and Edu: Yes Plan of Care: ADL Retraining, Caregiver Training, Functional Mobility, Group Exercise/Act as Ind (education, exercise, activity tolerance, funct mobility, funtional actiities), UE Funct Exercise/Act, UE Neuromus Re-Ed/Coord, W/C Management Training, OTHER (energy conservation education) Treatment Duration: Jun 07, 2018 Frequency: At least 5 of 7 days/Wk (IRF) Estimated Hrs Per Day: 1.5 hours per day [facility] Speech Therapy Treatment Plan: Continue Plan of Care Treatment Duration: May 24, 2018 Frequency: 5 times per week Estimated Hrs Per Day: .5 hour per day Order Packer Or Packager/Case Mgmt Order Packer Or Packager/Case Managemen: Discharge Planning, Patient/Family Counseling Other Services: WOULD LIKE TO FILL OUT LIVING WILL Dietitian/Replanting Machine Operator Dietitian/Replanting Machine Operator to monitor nutritional status and make changes and/or recommendations as needed and work with speech pathology on dietary upgrades as the occur. 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 Medical Issues: DVT Prophylaxis, Falls Precautions, Infection Protection, Pain Management, Other (List) (as per above) Brief Synthesis of Preadmission Screen, Post-Admission Evaluation, and Therapy Evaluations: 58 yo female who had been Independent prior to bout of pneumonia with sepsis requiring trach and Vent support Now weaned and to be decannulated Being followed by PCP and PULM PMH MO COPD Tobaccoism Anxiety.Lives alone Medical Prognosis: Good Anticipated Length of Stay: 06-07-18 Modified Independent for adls and Mobility skills Decannulate Anticipated d/c Destination: Home with [facility] JOSE COOK MD May 21, 2018 16:20
--- NOTE | 2018-05-21 16:40 | Diagnostic Imaging Report ---
PROCEDURE: CT chest with contrast only. TECHNIQUE: Multiple contiguous axial images were obtained through the chest after administration of intravenous contrast. INDICATION: Respiratory distress. FINDINGS: The previous CTA chest exam of 11/22/2009 failed to show any sign of an acute abnormality. In particular, there was no evidence for a pulmonary embolus. The PA and lateral chest performed on 05/20/2018 did note bibasilar atelectasis/infiltrate and small bilateral pleural effusions. On this study, the pulmonary arteries are not well opacified and consequently difficult to assess for a pulmonary embolus. However, there does seem to be diminished density in the pulmonary arteries to the right lower lobe. This finding is suspicious for a pulmonary embolus. The aorta is not abnormally dilated, and there is no sign of a dissection. The heart size is within normal limits. There are no coronary artery calcifications evident. There is only a very small amount of atelectasis/infiltrate in the left lung base. There is mild right lower lobe atelectasis/infiltrate and a small effusion measuring approximately 1 cm in maximum depth. The upper lungs are generally clear. The emphysematous changes involving both lungs and the scar formation and calcification along the periphery of the right upper lung seen on the 2009 CTA chest exam are again evident and do not appear to have changed significantly. However, faint ground-glass densities have developed in both lungs since the prior study. These are nonspecific but may be related to mild pulmonary edema or less likely pneumonia/atelectasis. As noted on the prior exam, there is a tracheostomy tube in place with the tip of the tube in the mid portion of the trachea. The tube seems to be in good position. The thyroid gland is generally unremarkable. There is no obvious breast mass. The sections through the upper abdomen show that there is cholelithiasis and perhaps some sludge within the gallbladder. The gallbladder wall is also slightly thickened, but this may be secondary to incomplete distention as opposed to acute cholecystitis. If further evaluation of the gallbladder is desired, then either a nuclear medicine hepatobiliary scan or ultrasound would be recommended. There is an oblique band of increased density extending through the anterior abdominal wall on the left. This may have been related to a prior PEG tube placement. The bone windows show no evidence for a fracture or for a destructive lesion. IMPRESSION: 1. This exam is less than optimal as the pulmonary for not well opacified. However, there do appear to be low-density defects within the pulmonary arteries to the right lower lobe. These findings are suspicious, but not conclusive, for pulmonary emboli. There is also mild right lower lobe atelectasis/infiltrate and a small right pleural effusion. There is only a very small amount of atelectasis/infiltrate in the left lung base. 2. There is no acute cardiopulmonary abnormality noted otherwise. 3. The chronic pulmonary changes seen previously are again evident and do not seem to have progressed significantly. 4. There is cholelithiasis, and the gallbladder wall does seem somewhat thickened. Recommendations as above. 5. These results were discussed with Dr. Berman. Dictated by: Dictated on workstation # [id number]
[2018-05-21 17:15] VITALS: BP 146/82
[2018-05-21] MEDS: DONEPEZIL 10 MG (ARICEPT) TAB PO SCH (20:16)
[2018-05-21] MEDS: ATORVASTATIN 40 MG (LIPITOR) TABLET PO SCH (20:16)
[2018-05-21] MEDS: OLANZapine 5 MG (ZyPREXA) TAB PO SCH (20:17)
[2018-05-22 05:13] VITALS: BP 119/70
[2018-05-22] MEDS: MULTIVIT W/MINERALS TAB (THERAGRAN M) PO SCH (06:19)
[2018-05-22] MEDS: PANTOPRAZOLE 40 MG (PROTONIX) TAB PO SCH ×2 (06:20→19:41)
[2018-05-22] MEDS: CYANOCOBALAMIN 1,000 MCG (VITAMIN B-12) TABLET PO SCH (06:20)
[2018-05-22] MEDS: LACTOBACILLUS ACIDOPHILUS (PROBIOTIC) CAPSULE PO SCH ×3 (06:20→17:19)
[2018-05-22] MEDS: ONDANSETRON 8 MG (ZOFRAN) ORAL DISSOLVE TAB PO PRN (07:33)
--- NOTE | 2018-05-22 07:46 | Progress Note (SOAP) ---
Subjective Time Seen by a Provider: 07:44 Subjective/Events-last exam atient feeling better today. Patient to be extubated. CAT scan of the chest may show pulmonary emboli Objective Exam Vital Signs Date Time Temp Pulse Resp B/P (MAP) Pulse Ox O2 Delivery O2 Flow Rate FiO2 05/22/18 05:13 97.4 80 20 119/70 (86) 96 Nasal Cannula 3.00 05/21/18 19:57 Nasal Cannula 3.00 05/21/18 19:57 3.00 05/21/18 17:15 98.7 86 20 146/82 (103) 96 Nasal Cannula 3.00 05/21/18 09:52 94 3.00 05/21/18 08:42 Nasal Cannula 3.00 I & O 05/22/18 07:00 Intake Total 1350 ml Balance 1350 ml Capillary Refill : General Appearance: No Apparent Distress, WD/WN HEENT: Normal ENT Inspection Neck: Normal Inspection Respiratory: Lungs Clear, No Accessory Muscle Use, No Respiratory Distress, Decreased Breath Sounds Cardiovascular: Regular Rate, Rhythm Gastrointestinal: non tender, soft Assessment/Plan Assessment/Plan Assess & Plan/Chief Complaint Myopathy. COPD. Morbid obesity. Bipolar. Anxiety. Depression. Psoriasis. On ventilator. PEG tube removed. Coronary artery disease. GERD. Hypothyroid. Morbid obesity. . 05/21/18. Myopathy. COPD. Morbid obesity. Bipolar. Anxiety. Depression. Psoriasis. Coronary artery disease. Hypothyroid. Morbid obesity. Patient states she's working hard. . 05/22/18. Patient feeling good today. CT of the chest may showpulmonary emboli. COPD. Morbid obesity. Bipolar. Psoriasis. Coronary artery disease Hypothyroid Clinical Quality Measures DVT/VTE Risk/Contraindication: Risk Factor Score Per Nursin RFS Level Per Nursing on Admit: 4+=Very High JOCELYNE EMI DO May 22, 2018 07:46
[2018-05-22] MEDS: SUCRALFATE 1 GM (CARAFATE) TAB PO SCH ×3 (08:30→19:40)
--- NOTE | 2018-05-22 08:30 | NUR ---
DR. MEI HAS SEEN PATIENT. DR. GARZA NOTIFIED OF CT RESULTS.
[2018-05-22] MEDS: LORATADINE (CLARITIN) 10 MG TAB PO SCH (08:31)
[2018-05-22] MEDS: MELOXICAM 7.5 MG (MOBIC) TABLET PO SCH (08:31)
[2018-05-22] MEDS: meTOprolol TARTRATE 50 MG (LOPRESSOR) TAB PO SCH ×2 (08:31→19:41)
[2018-05-22] MEDS: RT-ADVAIR HFA 115/21 MCG PER PUFF IH SCH ×2 (08:34→20:16)
[2018-05-22] MEDS: DOCUSATE SODIUM 100 MG (COLACE) CAP PO SCH ×2 (08:35→19:42)
[2018-05-22] MEDS: ARTIFICAL TEARS 0.4 ML UNIT DOSE (REFRESH PLUS) OU SCH ×3 (08:35→19:42)
[2018-05-22] MEDS: HYDROcodone/APAP 10 MG/325 MG (LORTAB) TAB PO PRN ×2 (08:35→19:40)
--- NOTE | 2018-05-22 08:54 | Pulmonary Progress Note ---
Subjective Date Seen by a Provider: May 21, 2018 (Late entry for 05/21 today is 05/22. ) Time Seen by a Provider: 08:52 Subjective/Events-last exam PT wants trach tube out. Denies SOB or copious secretions. Sepsis Event Evaluation Height, Weight, BMI Height: 5'5.00" Weight: 233lbs. 2.0oz. 105.860793zl; 38.8 BMI Method:Stated Exam Exam Vital Signs Date Time Temp Pulse Resp B/P (MAP) Pulse Ox O2 Delivery O2 Flow Rate FiO2 05/22/18 08:35 98 3.00 05/22/18 05:13 97.4 80 20 119/70 (86) 96 Nasal Cannula 3.00 05/21/18 19:57 Nasal Cannula 3.00 05/21/18 19:57 3.00 05/21/18 17:15 98.7 86 20 146/82 (103) 96 Nasal Cannula 3.00 05/21/18 09:52 94 3.00 I & O 05/22/18 07:00 Intake Total 1350 ml Balance 1350 ml Height & Weight Height: 5'5.00" Weight: 233lbs. 2.0oz. 105.365605bl; 38.8 BMI Method:Stated General Appearance: No Apparent Distress, WD/WN HEENT: Normal ENT Inspection Neck: Normal Inspection Respiratory: Lungs Clear, No Accessory Muscle Use, No Respiratory Distress, Decreased Breath Sounds Cardiovascular: Regular Rate, Rhythm Gastrointestinal: non tender, soft Extremity: Normal Capillary Refill, Normal Inspection, Normal Range of Motion, Non Tender, No Calf Tenderness, No Pedal Edema Neurologic/Psychiatric: Alert, Oriented x3, No Motor/Sensory Deficits, Normal Mood/Affect Skin: Normal Color, Warm/Dry Lymphatic: No Adenopathy Results Lab Laboratory Tests 05/20/18 12:00 05/21/18 04:25 Assessment/Plan Assessment/Plan S/P ARDS/respiratory failure - tracheostomy from [place] -Check CT scan -PT's trach has been capped since her rehab admission. SHe does not have copious secretions or SOB. -Check CT scan of chest secondary to CXR report. COPD CAD hx Morbid obesity Hx of Bipolar/anxiety Depression MERCEDES GARZA DO May 22, 2018 08:53
[2018-05-22] MEDS: ENOXAPARIN 40 MG/0.4 ML (LOVENOX) SYR SC SCH (08:55)
--- NOTE | 2018-05-22 08:55 | Pulmonary Progress Note ---
Subjective Time Seen by a Provider: 08:54 Subjective/Events-last exam PT wants trach tube out. Sepsis Event Evaluation Height, Weight, BMI Height: 5'5.00" Weight: 233lbs. 2.0oz. 105.292934ns; 38.8 BMI Method:Stated Exam Exam Vital Signs Date Time Temp Pulse Resp B/P (MAP) Pulse Ox O2 Delivery O2 Flow Rate FiO2 05/22/18 08:35 98 3.00 05/22/18 05:13 97.4 80 20 119/70 (86) 96 Nasal Cannula 3.00 05/21/18 19:57 Nasal Cannula 3.00 05/21/18 19:57 3.00 05/21/18 17:15 98.7 86 20 146/82 (103) 96 Nasal Cannula 3.00 05/21/18 09:52 94 3.00 I & O 05/22/18 07:00 Intake Total 1350 ml Balance 1350 ml Height & Weight Height: 5'5.00" Weight: 233lbs. 2.0oz. 105.274612bg; 38.8 BMI Method:Stated General Appearance: No Apparent Distress, WD/WN HEENT: Normal ENT Inspection Neck: Normal Inspection Respiratory: Lungs Clear, No Accessory Muscle Use, No Respiratory Distress, Decreased Breath Sounds Cardiovascular: Regular Rate, Rhythm Gastrointestinal: non tender, soft Extremity: Normal Capillary Refill, Normal Inspection, Normal Range of Motion, Non Tender, No Calf Tenderness, No Pedal Edema Neurologic/Psychiatric: Alert, Oriented x3, No Motor/Sensory Deficits, Normal Mood/Affect Skin: Normal Color, Warm/Dry Lymphatic: No Adenopathy Results Lab Laboratory Tests 05/20/18 12:00 05/21/18 04:25 Assessment/Plan Assessment/Plan S/P ARDS/respiratory failure - tracheostomy from [place] -CT scan reviewed and questions PE. -Will check bilateral dopplers -PT is a very difficult IV however may need to check V/Q scan -Check DDimer -PT's trach has been capped since her rehab admission. SHe does not have copious secretions or SOB. -Will proceed with removal of trach tube. COPD CAD hx Morbid obesity Hx of Bipolar/anxiety Depression MERCEDES GARZA DO May 22, 2018 08:55
[2018-05-22] MEDS: TRIAMCINOLONE 0.5% CR (KENALOG) 15 GM TUBE TOP SCH ×3 (08:56→19:50)
--- NOTE | 2018-05-22 09:00 | NUR ---
DR. GARZA HERE TO SEE PATIENT. ORDERS NOTED.
[2018-05-22 09:11] LABS: MEAN PLATELET VOLUME 9.3 FL (7.4-10.4); RED BLOOD COUNT 3.95 10^6/uL (4.35-5.85); RED CELL DISTRIBUTION WIDTH 18.7 % (10.0-14.5)
[2018-05-22 09:29] LABS: FIBRIN DEGRADATION PRODUCTS 1.09 UG/ML (0.00-0.49); PROTHROMBIN TIME PATIENT 12.7 SEC (12.2-14.7)
--- NOTE | 2018-05-22 09:30 | NUR ---
SALLY RIVAS BY R[employer]Aida DRESSING APPLIED.
[2018-05-22 09:35] LABS: ALANINE AMINOTRANSFERASE 16 U/L (0-55); ALBUMIN 3.3 GM/DL (3.2-4.5); ALKALINE PHOSPHATASE 73 U/L (40-136); BILIRUBIN,TOTAL 0.3 MG/DL (0.1-1.0); BUN/CREATININE RATIO 14; CALCIUM 9.2 MG/DL (8.5-10.1); CARBON DIOXIDE 31 MMOL/L (21-32); CHLORIDE 103 MMOL/L (98-107); GFR ESTIMATED > 60; GLUCOSE 126 MG/DL (70-105); POTASSIUM 3.7 MMOL/L (3.6-5.0); SODIUM 144 MMOL/L (135-145); TOTAL PROTEIN 5.6 GM/DL (6.4-8.2)
--- NOTE | 2018-05-22 09:45 | NUR ---
VENOUS DOPPLER DONE.
--- NOTE | 2018-05-22 10:02 | Physical Therapy Daily Note ---
PT Daily Note-Current Subjective Pt. in bed supine. Encouraged by this WOOD HACKER to participate in exercises before up with OT PT for co Rx. Pt. really wants a shower but nursing recommends no shower this date. Pt. agrees to sitting sponge bath. Pain Numeric Pain Scale: 3 Location: Left Location Body Site: Shoulder Pain Description: Pressure Comment: c/p opan during attempt at sup to side to sit TRF Mental Status Patient Orientation: Normal For Age Transfers Therapy Code Descriptions/Definitions Functional [place] Measure: 0=Not Assessed/NA 4=Minimal Assistance 1=Total Assistance 5=Supervision or Setup 2=Maximal Assistance 6=Modified [place] 3=Moderate Assistance 7=Complete [place] Therapy Quality Codes: 6 Independent with activity with or without an assistive device 5 Patient requires set up or clean up by helper. Patient completes activity by themselves 4 Supervision or touching assist (CGA). [place] provide cues , steadying assist 3 The helper provides less than half the effort to complete the activity 2 The helper provides more than half the effort to complete the activity 1 Dependent. The helper does all the effort to complete an activity 7 Patient refused to complete or attempt activity 9 The patient did not perform the activity before the current illness or injury 88 Not attempted due to Medical conditions or safety concerns Transfers (B, C, W/C) (FIM): 3 Scootin Rollin Supine to/from Sit: 3 Sit to/from Stand: 3 Bed to/from Chair: 3 pt. required mod assist 1-2 side to sit at EOB, sit to stand with bed level raised to assist , TRFd bed to WC then back as Dx imaging here to do LE US check for clots . Exercises Supine Ex: Bridging, Ankle pumps, Quad Set, Rolling, Glut sets, Heel Slides, Short Arc Quads, Scooting, Straight leg raise, Hip abd/add Supine Reps: 12 Treatments Rx stopped as pt. had stat order for US LEs Assessment Current Status: Fair Progress nursing advises pt. is being tested for emboli and possibly PEs PT Short Term Goals Short Term Goals Time Frame: May 24, 2018 Transfers (B,C,W/C) (FIM): 3 Gait (FIM): 1 Gait Distance Comment: 5' Gait Level of Assist: 4 Gait Assistive Device: Parallel Bars Wheelchair (FIM): 1 Wheelchair Distance: 20' PT Income Tax Administrator Goals Group Home Goals PT Group Home Goals Time Frame: Jun 07, 2018 Transfers (B,C,W/C) (FIM): 4 Sit to Lying (QC): 4 Lying-Sitting on Side/Bed(QC): 4 Sit to Stand (QC): 4 Rollin Roll Left to Right (QC): 4 Chair/Nhf-yl-[id number] Xfer(QC): 3 Car Transfer (QC): 3 Gait (FIM): 1 Distance: 20' Walk 10 feet (QC): 4 Gait Level of Assist: 4 Gait Assistive Device: FWW Wheelchair (FIM): 2 Distance: 50' Wheelchair Level of Assist: 5 Wheel 50 feet with 2 turns (QC: 4 PT Plan Treatment/Plan Treatment Plan: Continue Plan of Care Treatment Plan: Bed Mobility, Concurrent Therapy, Education, Functional Activity Fede, Functional Strength, Group Therapy, Gait, Safety, Therapeutic Exercise, Transfers Treatment Duration: Jun 07, 2018 Frequency: At least 5 of 7 days/Wk (IRF) Estimated Hrs Per Day: 1.5 hours per day Patient and/or Family Agrees t: Yes Safety Risks/Education Patient Education: Transfer Techniques, Correct Positioning, Disease Process, Safety Issues Teaching Recipient: Patient Teaching Methods: Demonstration, Discussion Response to Teaching: Verbalize Understanding, Return Demonstration, Reinforcement Needed Time/GCodes Time In: 915 Time Out: 940 Total Billed Treatment Time: 25 Total Billed Treatment 1,EX15m,FA10m G Codes Necessary: LYNN Kerns PTA May 22, 2018 10:02
--- NOTE | 2018-05-22 10:20 | NUR ---
DR. GARZA NOTIFIED OF ELEVATED D DIMER AND VENOUS DOPPLER RESULTS.
--- NOTE | 2018-05-22 10:39 | Occupational Ther Daily Note ---
OT Current Status-Daily Note Subjective Pt in bed, agrees to treatment. Mental Status/Objective Therapy Code Descriptions/Definitions Functional [place] Measure: 0=Not Assessed/NA 4=Minimal Assistance 1=Total Assistance 5=Supervision or Setup 2=Maximal Assistance 6=Modified [place] 3=Moderate Assistance 7=Complete [place] ADL-Treatment Co-treat with PT secondary to decreased activity tolerance, mobility, and strength. OT focusing on UE management and safety. PT focusing on LE management and mobility. Pt supine to sit with moderate assistance. Pt sat EOB with supervision for balance. Total assist to don socks. Sit to stand with mod assist x2 with bed raised. Transfer to w/c with assist x2 for safety. Pt then transferred back to bed secondary to pt needing stat ultrasound of LE. Pt sit to supine with mod assist. Pt resting in bed with needs met. RN states pt will be having further testing for possible DVT and PE. Will hold therapy at this time and await furthering imaging results Therapy Code Descriptions/Definitions Functional [place] Measure: 0=Not Assessed/NA 4=Minimal Assistance 1=Total Assistance 5=Supervision or Setup 2=Maximal Assistance 6=Modified [place] 3=Moderate Assistance 7=Complete [place] Therapy Quality Codes: 6 Independent with activity with or without an assistive device 5 Patient requires set up or clean up by helper. Patient completes activity by themselves 4 Supervision or touching assist (CGA). [place] provide cues , steadying assist 3 The helper provides less than half the effort to complete the activity 2 The helper provides more than half the effort to complete the activity 1 Dependent. The helper does all the effort to complete an activity 7 Patient refused to complete or attempt activity 9 The patient did not perform the activity before the current illness or injury 88 Not attempted due to Medical conditions or safety concerns OT Short Term Goals Short Term Goals Time Frame: May 24, 2018 Eating(FIM): 5 Grooming(FIM): 5 Bathing(FIM): 3 Upper Body Dressing(FIM): 5 Lower Body Dressing(FIM): 2 Toileting(FIM): 1 (one person) Transfers (B,C,W/C) (FIM): 3 Toilet/Commode Transfer(FIM): 1 (one person) Additional Short Term Goals: 1-Demonstrate ADL Tasks, 2-Verbalize Understanding , 3-ImproveStrength/Fede 1=Demonstrate adherence to instructed precautions during ADL tasks. 2=Patient will verbalize/demonstrate understanding of assistive devices/ modifications for ADL. 3=Patient will improve strength/tolerance for activity to enable patient to perform ADL's. OT Leg Assembler Goals Leg Assembler Goals Time Frame: Jun 07, 2018 Eating (FIM): 7 Eating (QC): 6 Groomin Oral Hygiene (QC): 6 Bathing(FIM): 5 Shower/Bathe Self (QC): 5 Upper Body Dressing(FIM): 6 Upper Body Dressing (QC): 6 Lower Body Dressing(FIM): 6 Lower Body Dressing (QC): 6 On/Off Footwear (QC): 6 Toileting(FIM): 6 Toileting Hygiene (QC): 6 Toilet/Commode Transfer(FIM): 6 Toilet/Commode Transfer (QC): 6 Shower Transfer(FIM): 6 Additional Goals: 1-Demonstrate ADL Tasks, 2-Verbalize Understanding, 3- ImproveStrength/Fede 1=Demonstrate adherence to instructed precautions during ADL tasks. 2=Patient will verbalize/demonstrate understanding of assistive devices/ modifications for ADL. 3=Patient will improve strength/tolerance for activity to enable patient to perform ADL's. OT Education/Plan Discharge Recommendations Plan/Recommendations: Continue POC Treatment Plan/Plan of Care Patient would benefit from OT for education, treatment and training to promote independence in ADL's, mobility, safety and/or upper extremity function for ADL' s. Plan of Care: ADL Retraining, Caregiver Training, Functional Mobility, Group Exercise/Act as Ind (education, exercise, activity tolerance, funct mobility, funtional actiities), UE Funct Exercise/Act, UE Neuromus Re-Ed/Coord, W/C Management Training, OTHER (energy conservation education) Treatment Duration: Jun 07, 2018 Frequency: At least 5 of 7 days/Wk (IRF) Estimated Hrs Per Day: 1.5 hours per day Agreement: Yes Rehab Potential: Fair Time/GCodes Start Time: 09:15 Stop Time: 09:35 Total Time Billed (hr/min): 20 Billed Treatment Time 1 visit, FA(20minutes) Co-treat with PT. ALIYAH PORTILLO OT May 22, 2018 10:39
[2018-05-22 10:40] LABS: BILIRUBIN,URINE NEGATIVE (NEGATIVE); CLARITY,URINE CLEAR; COLOR,URINE YELLOW; GLUCOSE, URINE (UA) NEGATIVE (NEGATIVE); KETONES,URINE NEGATIVE (NEGATIVE); LEUKOCYTE ESTERASE ,URINE 1+ (NEGATIVE); NITRITE,URINE NEGATIVE (NEGATIVE); PH,URINE 6 (5-9); PROTEIN,URINE NEGATIVE (NEGATIVE); UROBILINOGEN,URINE NORMAL (NORMAL)
[2018-05-22 10:58] LABS: RBC,URINE 0-2 /HPF
[2018-05-22 10:59] LABS: BACTERIA,URINE MODERATE /HPF
--- NOTE | 2018-05-22 11:45 | Diagnostic Imaging Report ---
PROCEDURE: US Venous Lower Ext Paw[place]. TECHNIQUE: Multiple real-time grayscale images were obtained over the lower extremities in various projections, bilaterally. Additional duplex Doppler and color Doppler images were also obtained. INDICATION: Diffuse myopathy. EXAMINATIONS: Both grayscale and color Doppler imaging of the deep veins of the lower extremities were performed with waveform analysis. FINDINGS: There is no intraluminal filling defect. Normal continuous flow is seen throughout the deep venous systems of both legs, and there is normal response to augmentation. The deep veins compress normally. IMPRESSION: No ultrasound evidence of deep venous thrombosis in either lower extremity. Dictated by: Dictated on workstation # [id number]
--- NOTE | 2018-05-22 12:10 | Speech Therapy Progress Note ---
Therapy Progress Note Patient is on medical hold due to having a procedure this afternoon. MAGUE TAVAREZ May 22, 2018 12:09
--- NOTE | 2018-05-22 14:00 | NUR ---
RETURNED TO ROOM POST VQ SCAN.
--- NOTE | 2018-05-22 14:26 | Progress Note-Standard ---
Standard Progress Note Progress Notes/Assess & Plan Date Seen by a Provider: May 22, 2018 Time Seen by a Provider: 11:40 Progress/Assessment & Plan Anesthesia Note ([id number]) Called to the acute rehab floor for an IV start. 22 G IV started in left wrist and flushed with ease. Pt tolerated the procedure well. Will be available if needed. KANA COLLAZO DO May 22, 2018 14:26
--- NOTE | 2018-05-22 14:43 | Diagnostic Imaging Report ---
EXAMINATION: Ventilation/perfusion lung scan. INDICATION: Respiratory distress. TECHNIQUE: This study was performed following administration of 42.2 mCi of 99m-technetium DTPA for the ventilation portion of the exam and 4.94 mCi of 99m-technetium MAA for the perfusion sequence. FINDINGS: There are no prior nuclear medicine studies available for comparison. The CT chest exam performed on 05/21/2018 raised the question of pulmonary emboli involving the right main pulmonary artery and its branches. On this exam, there is some clumping of the radiotracer about the leta. There is fairly even distribution of the radiotracer throughout both lung bases. The distribution in the lung apices is somewhat irregular but relatively symmetrical between the ventilation and the perfusion sequences. There is no evidence for a ventilation/perfusion mismatch to indicate a pulmonary embolus. IMPRESSION: There is a low probability for pulmonary embolus. Dictated by: Dictated on workstation # [id number]
--- NOTE | 2018-05-22 14:59 | NUR ---
DR. GARZA NOTIFIED OF LOW PROBABILITY ON VQ SCAN FOR PE. THERAPY CAN BE RESUMED.
--- NOTE | 2018-05-22 15:05 | NUR ---
DR. MEI NOTIFIED OF UA RESULTS AND WILL START ON OMNICEF.
--- NOTE | 2018-05-22 16:40 | NUR ---
SHREDDING FLOOR EQUIPMENT OPERATOR attempted to meet with patient to review Team Conference Summary; however, patient was finally resting. SHREDDING FLOOR EQUIPMENT OPERATOR will visit patient and daughter tomorrow. SHREDDING FLOOR EQUIPMENT OPERATOR will also help facilitate an AD, as requested by patient.
[2018-05-22 17:36] VITALS: BP 163/72
[2018-05-22] MEDS ORDERED: CATHETER FLUSH 10 ML SYR IV PRN (18:30)
--- NOTE | 2018-05-22 19:31 | PM&R Progress Note ---
Subjective This was a face to face visit with the patient. Date Seen by Provider: May 22, 2018 Time Seen by Provider: 07:50 Subjective/Events-last exam Patient was seen in her room this AM Patient Mod assist for transfers Appreciate DR Latif notes and orders Patient decannulated by RT and doing well V/Q scan low probability for PE Antibiotic ordered Date Identified: May 22, 2018 Time Identified: 19:00 Medication Intervention: Antibiotic ordered for probable UTI Review of Systems Pulmonary: Dyspnea Neurological: Weakness Objective Physician Exam Last Set of Vital Signs Vital Signs Date Time Temp Pulse Resp B/P (MAP) Pulse Ox O2 Delivery O2 Flow Rate FiO2 05/22/18 17:36 97.9 77 20 163/72 (102) Nasal Cannula 3.00 05/22/18 08:35 98 Capillary Refill : I&O Intake and Output 05/22/18 00:00 Intake Total 1190 ml Balance 1190 ml Intake Oral 1190 ml # Voids 8 # Bowel Movements 1 General: Alert, Oriented X3, Cooperative, No Acute Distress HEENT: Atraumatic, PERRLA, EOMI, Mucous Memb Moist/[place] Neck: Other (Trach in Place) Lungs: Clear to Auscultation Heart: Regular Rate Abdomen: Normal Bowel Sounds, Soft, No Tenderness, Other (obese with peg site healing well) Extremities: Other (Trace ankle edema) Neuro: Other (Proximal weakness Both lower limbs Strength 3+/5 Both upper limbs ) Psych/Mental Status: Other (anxiety) Results Lab Data Laboratory Tests 05/20/18 12:00: White Blood Count 12.0H, Red Blood Count 4.20L, Hemoglobin 11.6, Hematocrit 39, Mean Corpuscular Volume 93, Mean Corpuscular Hemoglobin 28, Mean Corpuscular Hemoglobin Concent 30L, Red Cell Distribution Width 19.1H, Platelet Count 573H, Mean Platelet Volume 9.5, Neutrophils (%) (Auto) 62, Lymphocytes (%) (Auto) 27, Monocytes (%) (Auto) 6, Eosinophils (%) (Auto) 4, Basophils (%) (Auto) 0, Neutrophils # (Auto) 7.5, Lymphocytes # (Auto) 3.3, Monocytes # (Auto) 0.7, Eosinophils # (Auto) 0.5H, Basophils # (Auto) 0.0, Sodium Level 143, Potassium Level 4.0, Chloride Level 104, Carbon Dioxide Level 28, Anion Gap 11, Blood Urea Nitrogen 10, Creatinine 0.89, Estimat Glomerular Filtration Rate > 60, BUN/ Creatinine Ratio 11, Glucose Level 113H, Calcium Level 9.2, Corrected Calcium 9.6, Phosphorus Level 4.4, Magnesium Level 1.7L, Total Bilirubin 0.3, Aspartate Amino Transf (AST/SGOT) 23, Alanine Aminotransferase (ALT/SGPT) 16, Alkaline Phosphatase 89, B-Type Natriuretic Peptide 91.1, Total Protein 6.2L, Albumin 3.5 05/20/18 14:07: Blood Gas Puncture Site LEFT RADIAL, Blood Gas Patient Temperature 97.8, Arterial Blood pH 7.39, Arterial Blood Partial Pressure CO2 52H, Arterial Blood Partial Pressure O2 75L, Arterial Blood HCO3 31H, Arterial Blood Total CO2 32.2H , Arterial Blood Oxygen Saturation 97, Arterial Blood Base Excess 5.7H, Merlin Test POSITIVE, Blood Gas Ventilator Setting NO, Blood Gas Inspired Oxygen 3 L 05/21/18 04:25: White Blood Count 12.1H, Red Blood Count 3.86L, Hemoglobin 10.6L, Hematocrit 36 , Mean Corpuscular Volume 94, Mean Corpuscular Hemoglobin 28, Mean Corpuscular Hemoglobin Concent 29L, Red Cell Distribution Width 18.5H, Platelet Count 435H, Mean Platelet Volume 9.7, Sodium Level 143, Potassium Level 3.9, Chloride Level 103, Carbon Dioxide Level 30, Anion Gap 10, Blood Urea Nitrogen 13, Creatinine 0.72, Estimat Glomerular Filtration Rate > 60, BUN/Creatinine Ratio 18, Glucose Level 94, Calcium Level 9.1, Corrected Calcium 9.7, Total Bilirubin 0.3, Aspartate Amino Transf (AST/SGOT) 21, Alanine Aminotransferase (ALT/SGPT) 12, Alkaline Phosphatase 83, Total Protein 5.4L, Albumin 3.2 05/22/18 09:05: White Blood Count 12.0H, Red Blood Count 3.95L, Hemoglobin 11.0L, Hematocrit 37 , Mean Corpuscular Volume 93, Mean Corpuscular Hemoglobin 28, Mean Corpuscular Hemoglobin Concent 30L, Red Cell Distribution Width 18.7H, Platelet Count 414H, Mean Platelet Volume 9.3, Sodium Level 144, Potassium Level 3.7, Chloride Level 103, Carbon Dioxide Level 31, Anion Gap 10, Blood Urea Nitrogen 11, Creatinine 0.80, Estimat Glomerular Filtration Rate > 60, BUN/Creatinine Ratio 14, Glucose Level 126H, Calcium Level 9.2, Corrected Calcium 9.8, Total Bilirubin 0.3, Aspartate Amino Transf (AST/SGOT) 23, Alanine Aminotransferase (ALT/SGPT) 16, Alkaline Phosphatase 73, Total Protein 5.6L, Albumin 3.3, Prothrombin Time 12.7 , INR Comment 1.0, Activated Partial Thromboplast Time 32, D-Dimer 1.09H 05/22/18 10:30: Urine Color YELLOW, Urine Clarity CLEAR, Urine pH 6, Urine Specific [place] 1.020, Urine Protein NEGATIVE, Urine Glucose (UA) NEGATIVE, Urine Ketones NEGATIVE, Urine Nitrite NEGATIVE, Urine Bilirubin NEGATIVE, Urine Urobilinogen NORMAL, Urine Leukocyte Esterase 1+H, Urine RBC (Auto) 1+H, Urine RBC 0-2, Urine WBC 10-25H, Urine Squamous Epithelial Cells 5-10, Urine Renal Epithelial Cells NONE, Urine Crystals NONE, Urine Bacteria MODERATEH, Urine Casts PRESENT, Urine Hyaline Casts 5-10H, Urine Mucus SMALLH, Urine Culture Indicated YES Assessment/Plan Assessment and Plan 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
[2018-05-22] MEDS: DONEPEZIL 10 MG (ARICEPT) TAB PO SCH (19:40)
[2018-05-22] MEDS: ATORVASTATIN 40 MG (LIPITOR) TABLET PO SCH (19:41)
[2018-05-22] MEDS: CEFDINIR 300 MG (OMNICEF) CAP PO SCH (19:41)
[2018-05-22] MEDS: OLANZapine 5 MG (ZyPREXA) TAB PO SCH (19:41)
[2018-05-22] MEDS: CATHETER FLUSH 10 ML SYR IV SCH (19:49)
[2018-05-23 05:00] VITALS: BP 145/60
[2018-05-23] MEDS: MULTIVIT W/MINERALS TAB (THERAGRAN M) PO SCH (06:26)
[2018-05-23] MEDS: PANTOPRAZOLE 40 MG (PROTONIX) TAB PO SCH ×2 (06:26→21:00)
[2018-05-23] MEDS: CYANOCOBALAMIN 1,000 MCG (VITAMIN B-12) TABLET PO SCH (06:26)
[2018-05-23] MEDS: LACTOBACILLUS ACIDOPHILUS (PROBIOTIC) CAPSULE PO SCH ×3 (06:26→17:17)
[2018-05-23] MEDS: CATHETER FLUSH 10 ML SYR IV SCH ×4 (06:27→21:04)
--- NOTE | 2018-05-23 07:12 | Pulmonary Progress Note ---
Subjective Time Seen by a Provider: 07:53 Subjective/Events-last exam PT states she feels improved since removal of trach tube. Sepsis Event Evaluation Height, Weight, BMI Height: 5'5.00" Weight: 233lbs. 2.0oz. 105.049909et; 38.8 BMI Method:Stated Exam Exam Vital Signs Date Time Temp Pulse Resp B/P (MAP) Pulse Ox O2 Delivery O2 Flow Rate FiO2 05/23/18 05:00 98.0 85 16 145/60 (88) 96 Nasal Cannula 3.00 05/22/18 20:56 Nasal Cannula 3.00 05/22/18 20:16 93 3.00 05/22/18 17:36 97.9 77 20 163/72 (102) Nasal Cannula 3.00 05/22/18 08:35 98 3.00 05/22/18 08:00 Nasal Cannula 3.00 I & O 05/23/18 07:00 Intake Total 2120 ml Balance 2120 ml Height & Weight Height: 5'5.00" Weight: 233lbs. 2.0oz. 105.174684hl; 38.8 BMI Method:Stated General Appearance: No Apparent Distress, WD/WN HEENT: Normal ENT Inspection Neck: Normal Inspection Respiratory: Lungs Clear, No Accessory Muscle Use, No Respiratory Distress, Decreased Breath Sounds Cardiovascular: Regular Rate, Rhythm Gastrointestinal: non tender, soft Extremity: Normal Capillary Refill, Normal Inspection, Normal Range of Motion, Non Tender, No Calf Tenderness, No Pedal Edema Neurologic/Psychiatric: Alert, Oriented x3, No Motor/Sensory Deficits, Normal Mood/Affect Skin: Normal Color, Warm/Dry Lymphatic: No Adenopathy Results Lab Laboratory Tests 05/22/18 09:05 Assessment/Plan Assessment/Plan S/P ARDS/respiratory failure - tracheostomy from [facility] -CT scan reviewed and questions PE. -V/Q scan is low probability of PE -- I doubt PE -Will check bilateral dopplers -- Negative -Trach tube d/c'd yesterday COPD -SVNs CAD hx Morbid obesity Hx of Bipolar/anxiety Depression MERCEDES GARZA DO May 23, 2018 07:12
[2018-05-23] MEDS: RT-ADVAIR HFA 115/21 MCG PER PUFF IH SCH ×2 (07:30→20:30)
--- NOTE | 2018-05-23 07:37 | Progress Note (SOAP) ---
Subjective Time Seen by a Provider: 07:35 Subjective/Events-last exam Trach extubated yesterday. Patient breathing good. VQ scan negative. Venous Doppler negative. Patient states she's doing better. Objective Exam Vital Signs Date Time Temp Pulse Resp B/P (MAP) Pulse Ox O2 Delivery O2 Flow Rate FiO2 05/23/18 05:00 98.0 85 16 145/60 (88) 96 Nasal Cannula 3.00 05/22/18 20:56 Nasal Cannula 3.00 05/22/18 20:16 93 3.00 05/22/18 17:36 97.9 77 20 163/72 (102) Nasal Cannula 3.00 05/22/18 08:35 98 3.00 05/22/18 08:00 Nasal Cannula 3.00 I & O 05/23/18 07:00 Intake Total 2120 ml Balance 2120 ml Capillary Refill : General Appearance: No Apparent Distress, WD/WN HEENT: Normal ENT Inspection Neck: Full Range of Motion, Normal Inspection, Other (Trach extubated) Respiratory: No Accessory Muscle Use, No Respiratory Distress, Decreased Breath Sounds Cardiovascular: Regular Rate, Rhythm, No Murmur Results Lab Laboratory Tests 05/22/18 09:05 Laboratory Tests 05/22/18 09:05: White Blood Count 12.0H, Red Blood Count 3.95L, Hemoglobin 11.0L, Hematocrit 37 , Mean Corpuscular Volume 93, Mean Corpuscular Hemoglobin 28, Mean Corpuscular Hemoglobin Concent 30L, Red Cell Distribution Width 18.7H, Platelet Count 414H, Mean Platelet Volume 9.3, Prothrombin Time 12.7, INR Comment 1.0, Activated Partial Thromboplast Time 32, D-Dimer 1.09H, Sodium Level 144, Potassium Level 3.7, Chloride Level 103, Carbon Dioxide Level 31, Anion Gap 10, Blood Urea Nitrogen 11, Creatinine 0.80, Estimat Glomerular Filtration Rate > 60, BUN/ Creatinine Ratio 14, Glucose Level 126H, Calcium Level 9.2, Corrected Calcium 9.8, Total Bilirubin 0.3, Aspartate Amino Transf (AST/SGOT) 23, Alanine Aminotransferase (ALT/SGPT) 16, Alkaline Phosphatase 73, Total Protein 5.6L, Albumin 3.3 05/22/18 10:30: Urine Color YELLOW, Urine Clarity CLEAR, Urine pH 6, Urine Specific [place] 1.020, Urine Protein NEGATIVE, Urine Glucose (UA) NEGATIVE, Urine Ketones NEGATIVE, Urine Nitrite NEGATIVE, Urine Bilirubin NEGATIVE, Urine Urobilinogen NORMAL, Urine Leukocyte Esterase 1+H, Urine RBC (Auto) 1+H, Urine RBC 0-2, Urine WBC 10-25H, Urine Squamous Epithelial Cells 5-10, Urine Renal Epithelial Cells NONE, Urine Crystals NONE, Urine Bacteria MODERATEH, Urine Casts PRESENT, Urine Hyaline Casts 5-10H, Urine Mucus SMALLH, Urine Culture Indicated YES Assessment/Plan Assessment/Plan Assess & Plan/Chief Complaint Myopathy. COPD. Morbid obesity. Bipolar. Anxiety. Depression. Psoriasis. On ventilator. PEG tube removed. Coronary artery disease. GERD. Hypothyroid. Morbid obesity. . 05/21/18. Myopathy. COPD. Morbid obesity. Bipolar. Anxiety. Depression. Psoriasis. Coronary artery disease. Hypothyroid. Morbid obesity. Patient states she's working hard. . 05/22/18. Patient feeling good today. CT of the chest may showpulmonary emboli. COPD. Morbid obesity. Bipolar. Psoriasis. Coronary artery disease Hypothyroid. . 05/23/18. Trach extubated. Patient breathing good. V/Q scan negative for pulmonary embolism. Morbid obesity. Psoriasis. Coronary artery disease. Hypothyroid. Patient feel she is improving Clinical Quality Measures DVT/VTE Risk/Contraindication: Risk Factor Score Per Nursin RFS Level Per Nursing on Admit: 4+=Very High JOCELYNE MEI DO May 23, 2018 07:37
[2018-05-23] MEDS: LORATADINE (CLARITIN) 10 MG TAB PO SCH (08:27)
[2018-05-23] MEDS: SUCRALFATE 1 GM (CARAFATE) TAB PO SCH ×3 (08:27→21:00)
[2018-05-23] MEDS: meTOprolol TARTRATE 50 MG (LOPRESSOR) TAB PO SCH ×2 (08:27→20:59)
[2018-05-23] MEDS: CEFDINIR 300 MG (OMNICEF) CAP PO SCH ×2 (08:27→21:00)
[2018-05-23] MEDS: DOCUSATE SODIUM 100 MG (COLACE) CAP PO SCH ×2 (08:28→20:57)
[2018-05-23] MEDS: MELOXICAM 7.5 MG (MOBIC) TABLET PO SCH (08:28)
[2018-05-23] MEDS: ENOXAPARIN 40 MG/0.4 ML (LOVENOX) SYR SC SCH (08:31)
[2018-05-23] MEDS: TRIAMCINOLONE 0.5% CR (KENALOG) 15 GM TUBE TOP SCH ×3 (08:32→21:03)
[2018-05-23] MEDS: HYDROcodone/APAP 10 MG/325 MG (LORTAB) TAB PO PRN ×2 (09:18→13:26)
[2018-05-23] MEDS: ARTIFICAL TEARS 0.4 ML UNIT DOSE (REFRESH PLUS) OU SCH ×3 (09:22→20:59)
--- NOTE | 2018-05-23 10:55 | Physical Therapy Daily Note ---
PT Daily Note-Current Subjective Patient in bed pre tx, agrees to PT, will be co-treating with OT for part of her treatment due to poor endurance, activity tolerance, strength, balance, general mobility. Patient needs to get a shower and dressed. Patient has no complaints of pain at rest. Appearance Patient in therapy gym to finish up with OT post tx. Mental Status Patient Orientation: Person, Place, Situation Attachments: Oxygen Transfers Therapy Code Descriptions/Definitions Functional [place] Measure: 0=Not Assessed/NA 4=Minimal Assistance 1=Total Assistance 5=Supervision or Setup 2=Maximal Assistance 6=Modified [place] 3=Moderate Assistance 7=Complete [place] Therapy Quality Codes: 6 Independent with activity with or without an assistive device 5 Patient requires set up or clean up by helper. Patient completes activity by themselves 4 Supervision or touching assist (CGA). [place] provide cues , steadying assist 3 The helper provides less than half the effort to complete the activity 2 The helper provides more than half the effort to complete the activity 1 Dependent. The helper does all the effort to complete an activity 7 Patient refused to complete or attempt activity 9 The patient did not perform the activity before the current illness or injury 88 Not attempted due to Medical conditions or safety concerns Transfers (B, C, W/C) (FIM): 3 Scootin Rollin Supine to/from Sit: 3 Sit to/from Stand: 4 Bed to/from Chair: 4 Patient needs mod assist for supine <-> sit and sit to stand, min assist for transfers. Cues for hand placement and safety. Gait Training Gait (FIM): 1 Distance: 8'x3 Gait Level of Assist: 4 Gait Persons Needed: 1 Gait Assistive Device: Parallel Bars Patient ambulated 8'x3 in the parallel bars, she ambulates slowly, unsteady, has to shift weight more than normal due to hip weakness. Treatments ambulation, bed mobility and transfers, patient was showered, dressed, and was toileted on bedside commode for BM Assessment Current Status: Fair Progress Patient has improved with ambulation and sit to stand PT Short Term Goals Short Term Goals Time Frame: May 24, 2018 Transfers (B,C,W/C) (FIM): 3 Gait (FIM): 1 Gait Distance Comment: 5' Gait Level of Assist: 4 Gait Assistive Device: Parallel Bars Wheelchair (FIM): 1 Wheelchair Distance: 20' PT Custodial Goals Custodial Goals PT Custodial Goals Time Frame: Jun 07, 2018 Transfers (B,C,W/C) (FIM): 4 Sit to Lying (QC): 4 Lying-Sitting on Side/Bed(QC): 4 Sit to Stand (QC): 4 Rollin Roll Left to Right (QC): 4 Chair/Crr-wn-Nxwno Xfer(QC): 3 Car Transfer (QC): 3 Gait (FIM): 1 Distance: 20' Walk 10 feet (QC): 4 Gait Level of Assist: 4 Gait Assistive Device: FWW Wheelchair (FIM): 2 Distance: 50' Wheelchair Level of Assist: 5 Wheel 50 feet with 2 turns (QC: 4 PT Plan Problem List Problem List: Activity Tolerance, Functional Strength, Safety, Balance, Gait, Transfer, Bed Mobility, ROM Treatment/Plan Treatment Plan: Continue Plan of Care Treatment Plan: Bed Mobility, Concurrent Therapy, Education, Functional Activity Fede, Functional Strength, Group Therapy, Gait, Safety, Therapeutic Exercise, Transfers Treatment Duration: Jun 07, 2018 Frequency: At least 5 of 7 days/Wk (IRF) Estimated Hrs Per Day: 1.5 hours per day Patient and/or Family Agrees t: Yes Safety Risks/Education Patient Education: Gait Training, Transfer Techniques, Correct Positioning, Safety Issues Teaching Recipient: Patient Teaching Methods: Demonstration, Discussion Response to Teaching: Reinforcement Needed Time/GCodes Time In: 0900 Time Out: 1000 Total Billed Treatment Time: 60 Total Billed Treatment 1 visit GT 15' FA 45' Co-treated with OT for 45 min. PT worked on bed mobility, transfers during treatment and for toileting and dressing and bathing, standing during bathing and dressing, ambulation. OT worked on dressing, bathing, toileting. CLAU SALAZAR PT May 23, 2018 10:55
--- NOTE | 2018-05-23 11:29 | NUR ---
CONCRETE MASON met with patient to review Team Conference Summary. Patient just recently admitted and a discharge date has not been discussed at this time, as patient continues to require mod assist for all activities and additional clinical concerns have arised such as potential DTV; however, Dr. Berman visited while CONCRETE MASON was speaking with patient and has ruled out DVT. Team intends to re-evaluate progress at next Team Conference on 05/29. Discharge planning for this patient will be complex due to the lengthy hospitalization she has had, her current physical and clinical status and Medicare as only insurance coverage. Patient had considered SNF prior to ARU admission; however, ARU was hopeful to increase strength enough, in order for her to return home at discharge. Patient has requested notary for AD, this was completed by Beth, Parish Worker. Patient is agreeable to team to re-evaluate next week.
--- NOTE | 2018-05-23 12:01 | Speech Therapy Daily Note ---
Speech Daily Progress Note Subjective Date Seen by Provider: May 23, 2018 Time Seen by Provider: 00:30 Patient was pleasant and cooperative. Objective Patient was able to complete memory task of picture recall at 75% from a field of 4 or 5 items with phonemic cues. Treatment Plan Continue Plan of Care Communication Comprehension: 3 Expression: 3 Social Cognition Social Interaction: 4 Problem Solvin Memory: 3 Speech Short Term Goals Short Term Goals Short Term Goals 1) Patient will recall information for safety awareness at 90% or greater with minimal cues. 2) Patient will recall new information from memory tasks at 90% accuracy or greater with minimal cues. 3) Patient will follow simple directions within her immediate living environment at 90% or greater with minimal cues. Speech Manager Entry Goals Retirement Goals Patient will improve safety awareness and independence with 90% accuracy. Speech-Plan Patient/Family Goals Patient/Family Goals: Patient plans to return home with family support following rehab. Treatment Plan Speech Therapy Treatment Plan: Continue Plan of Care Patient is progressing well with memory and problem solving. Treatment Duration: May 24, 2018 Frequency: 5 times per week Estimated Hrs Per Day: .5 hour per day Rehab Potential: Fair Barriers to Learning: Patient has a dementia diagnosis. Pt/Family Agrees to Plan: Yes Safety Risks/Education Teaching Recipient: Patient Teaching Methods: Discussion Response to Teaching: Verbalize Understanding Education Topics Provided: Safety and effective communication of wants/needs Time Speech Therapy Time In: 10:00 Speech Therapy Time Out: 10:30 Total Billed Time: 30 Billed Treatment Time 1FL[address] ST May 23, 2018 12:01
--- NOTE | 2018-05-23 13:28 | Occupational Ther Daily Note ---
OT Current Status-Daily Note Subjective Pt. reports 8/10 pain at beginning of treatment. Nursing gives her pain medication. Appearance Pt. is on side of bed with PT when OT enters room. Mental Status/Objective Patient Orientation: Person, Place Therapy Code Descriptions/Definitions Functional [place] Measure: 0=Not Assessed/NA 4=Minimal Assistance 1=Total Assistance 5=Supervision or Setup 2=Maximal Assistance 6=Modified [place] 3=Moderate Assistance 7=Complete [place] Attachments: IV ADL-Treatment Therapy Code Descriptions/Definitions Functional [place] Measure: 0=Not Assessed/NA 4=Minimal Assistance 1=Total Assistance 5=Supervision or Setup 2=Maximal Assistance 6=Modified [place] 3=Moderate Assistance 7=Complete [place] Therapy Quality Codes: 6 Independent with activity with or without an assistive device 5 Patient requires set up or clean up by helper. Patient completes activity by themselves 4 Supervision or touching assist (CGA). [place] provide cues , steadying assist 3 The helper provides less than half the effort to complete the activity 2 The helper provides more than half the effort to complete the activity 1 Dependent. The helper does all the effort to complete an activity 7 Patient refused to complete or attempt activity 9 The patient did not perform the activity before the current illness or injury 88 Not attempted due to Medical conditions or safety concerns Grooming (FIM): 2 (Pt. requires max assistance to brush hair.) Bathing (FIM): 2 (Pt. is able to wash her face and part of her chest. Pt. attempts to wash tabatha area. OT washes all other places.) Shower/Bathe Self (QC): 2 Upper Body (FIM): 2 (Pt. requires max assistance to don shirt overhead. Pt.is unable to pull shirt down or adequately pull sleeves down.) Upper Body Dressing (QC): 2 Lower Body Dressing (FIM): 1 (Pt. requires max assistance to thread bilateral LE through brief and pants. Max assist of one person to assist her to stand while another person pulls pants over hips.) Lower Body Dressing (QC): 1 On/Off Footwear (QC): 1 Toileting (FIM): 1 (Pt. is able to toiet on BSC, but requires max assistance in stance while another person cleanses rear tabatha area.) Toileting Hygiene (QC): 1 Transfers (B, C, W/C) (FIM): 2 (Mod assist supine-sit and max assist to stand.) Toilet/Commode Transfer (FIM): 2 Toilet Transfer (QC): 2 Shower Transfer(FIM): 1 (Pt. was rolled into shower area via shower chair.) Other Treatment Co-treat performed with PT due to pt's fatigue and skill level. OT facilitated transfer training while PT facilitated ambulation and mobility. Pt. stood 2-3 times at parallel bars with max assist and able to take steps with assist. Please see PT note for distance. Pt. has limited shoulder and UE ROM and strength for all functional tasks. After treatment, pt. taken back to room. Requested to sit up in wheelchair to wait for speech therapy. All needs met in room. Education OT Patient Education: Correct positioning, Modified ADL techniques, Progress toward Goal/Update tx plan, Purpose of tx/functional activities, Reviewed precautions, Rehab process, Transfer techniques Teaching Recipient: Patient Teaching Methods: Demonstration, Discussion Response to Teaching: Verbalize Understanding, Return Demonstration OT Short Term Goals Short Term Goals Time Frame: May 24, 2018 Eating(FIM): 5 Grooming(FIM): 5 Bathing(FIM): 3 Upper Body Dressing(FIM): 5 Lower Body Dressing(FIM): 2 Toileting(FIM): 1 (one person) Transfers (B,C,W/C) (FIM): 3 Toilet/Commode Transfer(FIM): 1 (one person) Additional Short Term Goals: 1-Demonstrate ADL Tasks, 2-Verbalize Understanding , 3-ImproveStrength/Fede 1=Demonstrate adherence to instructed precautions during ADL tasks. 2=Patient will verbalize/demonstrate understanding of assistive devices/ modifications for ADL. 3=Patient will improve strength/tolerance for activity to enable patient to perform ADL's. OT Steffen House Supervisor Goals Mcfp Goals Time Frame: Jun 07, 2018 Eating (FIM): 7 Eating (QC): 6 Groomin Oral Hygiene (QC): 6 Bathing(FIM): 5 Shower/Bathe Self (QC): 5 Upper Body Dressing(FIM): 6 Upper Body Dressing (QC): 6 Lower Body Dressing(FIM): 6 Lower Body Dressing (QC): 6 On/Off Footwear (QC): 6 Toileting(FIM): 6 Toileting Hygiene (QC): 6 Toilet/Commode Transfer(FIM): 6 Toilet/Commode Transfer (QC): 6 Shower Transfer(FIM): 6 Additional Goals: 1-Demonstrate ADL Tasks, 2-Verbalize Understanding, 3- ImproveStrength/Fede 1=Demonstrate adherence to instructed precautions during ADL tasks. 2=Patient will verbalize/demonstrate understanding of assistive devices/ modifications for ADL. 3=Patient will improve strength/tolerance for activity to enable patient to perform ADL's. OT Education/Plan Problem List/Assessment Assessment: Decreased Activ Tolerance, Decreased UE Strength, Dependent Transfers, Impaired Bed Mobility, Impaired Coordination, Impaired Funct Balance , Impaired I ADL's, Impaired Self-Care Skills, Restricted Funct UE ROM Discharge Recommendations Plan/Recommendations: Continue POC Treatment Plan/Plan of Care Treatment,Training & Education: Yes Patient would benefit from OT for education, treatment and training to promote independence in ADL's, mobility, safety and/or upper extremity function for ADL' s. Plan of Care: ADL Retraining, Caregiver Training, Functional Mobility, Group Exercise/Act as Ind (education, exercise, activity tolerance, funct mobility, funtional actiities), UE Funct Exercise/Act, UE Neuromus Re-Ed/Coord, W/C Management Training, OTHER (energy conservation education) Treatment Duration: Jun 07, 2018 Frequency: At least 5 of 7 days/Wk (IRF) Estimated Hrs Per Day: 1.5 hours per day Agreement: Yes Rehab Potential: Fair Time/GCodes Start Time: 09:15 Stop Time: 10:00 Total Time Billed (hr/min): 45 Billed Treatment Time 1, ADL x 30minutes, FA x 15minutes LUIS VALLE OT May 23, 2018 13:28
--- NOTE | 2018-05-23 13:59 | PM&R Progress Note ---
Subjective This was a face to face visit with the patient. Date Seen by Provider: May 23, 2018 Time Seen by Provider: 08:10 Subjective/Events-last exam Patient was seen in her room this AM Trach site covered with bandage Appreciate DR Krishnamurthy note Patient min to mod assist for transfers Review of Systems Pulmonary: Dyspnea Neurological: Weakness Objective Physician Exam Last Set of Vital Signs Vital Signs Date Time Temp Pulse Resp B/P (MAP) Pulse Ox O2 Delivery O2 Flow Rate FiO2 05/23/18 08:30 Nasal Cannula 3.00 05/23/18 05:00 98.0 85 16 145/60 (88) 96 Capillary Refill : I&O Intake and Output 05/23/18 00:00 Intake Total 1600 ml Balance 1600 ml Intake Oral 1600 ml # Voids 11 # Bowel Movements 2 General: Alert, Oriented X3, Cooperative, No Acute Distress HEENT: Atraumatic, PERRLA, EOMI, Mucous Memb Moist/[place] Neck: Other (Trach in Place) Lungs: Clear to Auscultation Heart: Regular Rate Abdomen: Normal Bowel Sounds, Soft, No Tenderness, Other (obese with peg site healing well) Extremities: Other (Trace ankle edema) Neuro: Other (Proximal weakness Both lower limbs Strength 3+/5 Both upper limbs ) Psych/Mental Status: Other (anxiety) Results Lab Data Laboratory Tests 05/20/18 14:07: Blood Gas Puncture Site LEFT RADIAL, Blood Gas Patient Temperature 97.8, Arterial Blood pH 7.39, Arterial Blood Partial Pressure CO2 52H, Arterial Blood Partial Pressure O2 75L, Arterial Blood HCO3 31H, Arterial Blood Total CO2 32.2H , Arterial Blood Oxygen Saturation 97, Arterial Blood Base Excess 5.7H, Merlin Test POSITIVE, Blood Gas Ventilator Setting NO, Blood Gas Inspired Oxygen 3 L 05/21/18 04:25: White Blood Count 12.1H, Red Blood Count 3.86L, Hemoglobin 10.6L, Hematocrit 36 , Mean Corpuscular Volume 94, Mean Corpuscular Hemoglobin 28, Mean Corpuscular Hemoglobin Concent 29L, Red Cell Distribution Width 18.5H, Platelet Count 435H, Mean Platelet Volume 9.7, Sodium Level 143, Potassium Level 3.9, Chloride Level 103, Carbon Dioxide Level 30, Anion Gap 10, Blood Urea Nitrogen 13, Creatinine 0.72, Estimat Glomerular Filtration Rate > 60, BUN/Creatinine Ratio 18, Glucose Level 94, Calcium Level 9.1, Corrected Calcium 9.7, Total Bilirubin 0.3, Aspartate Amino Transf (AST/SGOT) 21, Alanine Aminotransferase (ALT/SGPT) 12, Alkaline Phosphatase 83, Total Protein 5.4L, Albumin 3.2 05/22/18 09:05: White Blood Count 12.0H, Red Blood Count 3.95L, Hemoglobin 11.0L, Hematocrit 37 , Mean Corpuscular Volume 93, Mean Corpuscular Hemoglobin 28, Mean Corpuscular Hemoglobin Concent 30L, Red Cell Distribution Width 18.7H, Platelet Count 414H, Mean Platelet Volume 9.3, Sodium Level 144, Potassium Level 3.7, Chloride Level 103, Carbon Dioxide Level 31, Anion Gap 10, Blood Urea Nitrogen 11, Creatinine 0.80, Estimat Glomerular Filtration Rate > 60, BUN/Creatinine Ratio 14, Glucose Level 126H, Calcium Level 9.2, Corrected Calcium 9.8, Total Bilirubin 0.3, Aspartate Amino Transf (AST/SGOT) 23, Alanine Aminotransferase (ALT/SGPT) 16, Alkaline Phosphatase 73, Total Protein 5.6L, Albumin 3.3, Prothrombin Time 12.7 , INR Comment 1.0, Activated Partial Thromboplast Time 32, D-Dimer 1.09H 05/22/18 10:30: Urine Color YELLOW, Urine Clarity CLEAR, Urine pH 6, Urine Specific [place] 1.020, Urine Protein NEGATIVE, Urine Glucose (UA) NEGATIVE, Urine Ketones NEGATIVE, Urine Nitrite NEGATIVE, Urine Bilirubin NEGATIVE, Urine Urobilinogen NORMAL, Urine Leukocyte Esterase 1+H, Urine RBC (Auto) 1+H, Urine RBC 0-2, Urine WBC 10-25H, Urine Squamous Epithelial Cells 5-10, Urine Renal Epithelial Cells NONE, Urine Crystals NONE, Urine Bacteria MODERATEH, Urine Casts PRESENT, Urine Hyaline Casts 5-10H, Urine Mucus SMALLH, Urine Culture Indicated YES Microbiology 05/22/18 Urine Culture - Preliminary, Resulted Gram Negative Bacillus 1 Assessment/Plan Assessment and Plan 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
--- NOTE | 2018-05-23 14:17 | Physical Therapy Daily Note ---
PT Daily Note-Current Subjective Pt sitting in [facility] in room upon arrival. Pt agrees to PT. Pain Numeric Pain Scale: 9 Location: Left Location Body Site: Shoulder Pain Description: Ache Mental Status Patient Orientation: Person, Place, Situation Transfers Therapy Code Descriptions/Definitions Functional [place] Measure: 0=Not Assessed/NA 4=Minimal Assistance 1=Total Assistance 5=Supervision or Setup 2=Maximal Assistance 6=Modified [place] 3=Moderate Assistance 7=Complete [place] Therapy Quality Codes: 6 Independent with activity with or without an assistive device 5 Patient requires set up or clean up by helper. Patient completes activity by themselves 4 Supervision or touching assist (CGA). [place] provide cues , steadying assist 3 The helper provides less than half the effort to complete the activity 2 The helper provides more than half the effort to complete the activity 1 Dependent. The helper does all the effort to complete an activity 7 Patient refused to complete or attempt activity 9 The patient did not perform the activity before the current illness or injury 88 Not attempted due to Medical conditions or safety concerns Exercises Seated Therapy Exercises: Ankle pumps, Long arc quads, Hip flexion, Kicking activity, Hip abd/add Seated Reps: 15 Treatments Pt completes Seated Ex in [facility] then takes pain med given by Nurse. OT arrives to see pt for tx. Pt has all needs met. Assessment Current Status: Fair Progress Pt fatigues easily. PT Short Term Goals Short Term Goals Time Frame: May 24, 2018 Transfers (B,C,W/C) (FIM): 3 Gait (FIM): 1 Gait Distance Comment: 5' Gait Level of Assist: 4 Gait Assistive Device: Parallel Bars Wheelchair (FIM): 1 Wheelchair Distance: 20' PT Intelligence Director Goals Penitentiary Goals PT Penitentiary Goals Time Frame: Jun 07, 2018 Transfers (B,C,W/C) (FIM): 4 Sit to Lying (QC): 4 Lying-Sitting on Side/Bed(QC): 4 Sit to Stand (QC): 4 Rollin Roll Left to Right (QC): 4 Chair/[id number]-Djpwh Xfer(QC): 3 Car Transfer (QC): 3 Gait (FIM): 1 Distance: 20' Walk 10 feet (QC): 4 Gait Level of Assist: 4 Gait Assistive Device: FWW Wheelchair (FIM): 2 Distance: 50' Wheelchair Level of Assist: 5 Wheel 50 feet with 2 turns (QC: 4 PT Plan Problem List Problem List: Activity Tolerance, Functional Strength Treatment/Plan Treatment Plan: Continue Plan of Care Treatment Plan: Bed Mobility, Concurrent Therapy, Education, Functional Activity Fede, Functional Strength, Group Therapy, Gait, Safety, Therapeutic Exercise, Transfers Treatment Duration: Jun 07, 2018 Frequency: At least 5 of 7 days/Wk (IRF) Estimated Hrs Per Day: 1.5 hours per day Patient and/or Family Agrees t: Yes Safety Risks/Education Patient Education: Correct Positioning, Safety Issues Teaching Recipient: Patient Teaching Methods: Discussion Response to Teaching: Verbalize Understanding Time/GCodes Time In: 1315 Time Out: 1330 Total Billed Treatment Time: 15 Total Billed Treatment 1, EX (15m) G Codes Necessary: VÍCTOR Joel PTA May 23, 2018 14:17
--- NOTE | 2018-05-23 15:40 | Occupational Ther Daily Note ---
OT Current Status-Daily Note Subjective Pt. is agreeable to treatment. Appearance Pt. is up in wheelchair. Mental Status/Objective Patient Orientation: Person, Place, Time, Situation Therapy Code Descriptions/Definitions Functional [place] Measure: 0=Not Assessed/NA 4=Minimal Assistance 1=Total Assistance 5=Supervision or Setup 2=Maximal Assistance 6=Modified [place] 3=Moderate Assistance 7=Complete [place] Attachments: IV ADL-Treatment Therapy Code Descriptions/Definitions Functional [place] Measure: 0=Not Assessed/NA 4=Minimal Assistance 1=Total Assistance 5=Supervision or Setup 2=Maximal Assistance 6=Modified [place] 3=Moderate Assistance 7=Complete [place] Therapy Quality Codes: 6 Independent with activity with or without an assistive device 5 Patient requires set up or clean up by helper. Patient completes activity by themselves 4 Supervision or touching assist (CGA). [place] provide cues , steadying assist 3 The helper provides less than half the effort to complete the activity 2 The helper provides more than half the effort to complete the activity 1 Dependent. The helper does all the effort to complete an activity 7 Patient refused to complete or attempt activity 9 The patient did not perform the activity before the current illness or injury 88 Not attempted due to Medical conditions or safety concerns Toileting (FIM): 2 (Pt. attempts to cleanse front [place]atha area after toileting, but is unable to reach. OT does this for her.) Toileting Hygiene (QC): 2 Transfers (B, C, W/C) (FIM): 3 (Mod assist for sit-stand and to take steps toward BSC.) Toilet/Commode Transfer (FIM): 3 Toilet Transfer (QC): 3 Other Treatment Pt. is taken to therapy gym. OT provides gentle stretch and PROM to bilateral UE in all planes. Pt. is unable to tolerate stretch past end point. Reports that her arms are sore. OT provides gentle massage but pt. is unable to tolerate increase touch. Pt. is taken back to room and requests to sit up in wheelchair. All needs are met. Education OT Patient Education: Correct positioning, Exercise program, Modified ADL techniques, Progress toward Goal/Update tx plan, Purpose of tx/functional activities, Reviewed precautions, Rehab process, Transfer techniques Teaching Recipient: Patient Teaching Methods: Demonstration, Discussion Response to Teaching: Verbalize Understanding, Return Demonstration OT Short Term Goals Short Term Goals Time Frame: May 24, 2018 Eating(FIM): 5 Grooming(FIM): 5 Bathing(FIM): 3 Upper Body Dressing(FIM): 5 Lower Body Dressing(FIM): 2 Toileting(FIM): 1 (one person) Transfers (B,C,W/C) (FIM): 3 Toilet/Commode Transfer(FIM): 1 (one person) Additional Short Term Goals: 1-Demonstrate ADL Tasks, 2-Verbalize Understanding , 3-ImproveStrength/Fede 1=Demonstrate adherence to instructed precautions during ADL tasks. 2=Patient will verbalize/demonstrate understanding of assistive devices/ modifications for ADL. 3=Patient will improve strength/tolerance for activity to enable patient to perform ADL's. OT Banquet Prep Cook Goals Senior Living Goals Time Frame: Jun 07, 2018 Eating (FIM): 7 Eating (QC): 6 Groomin Oral Hygiene (QC): 6 Bathing(FIM): 5 Shower/Bathe Self (QC): 5 Upper Body Dressing(FIM): 6 Upper Body Dressing (QC): 6 Lower Body Dressing(FIM): 6 Lower Body Dressing (QC): 6 On/Off Footwear (QC): 6 Toileting(FIM): 6 Toileting Hygiene (QC): 6 Toilet/Commode Transfer(FIM): 6 Toilet/Commode Transfer (QC): 6 Shower Transfer(FIM): 6 Additional Goals: 1-Demonstrate ADL Tasks, 2-Verbalize Understanding, 3- ImproveStrength/Fede 1=Demonstrate adherence to instructed precautions during ADL tasks. 2=Patient will verbalize/demonstrate understanding of assistive devices/ modifications for ADL. 3=Patient will improve strength/tolerance for activity to enable patient to perform ADL's. OT Education/Plan Problem List/Assessment Assessment: Decreased Activ Tolerance, Decreased UE Strength, Dependent Transfers, Impaired Bed Mobility, Impaired Funct Balance, Impaired I ADL's, Impaired Self-Care Skills, Restricted Funct UE ROM Discharge Recommendations Plan/Recommendations: Continue POC Treatment Plan/Plan of Care Treatment,Training & Education: Yes Patient would benefit from OT for education, treatment and training to promote independence in ADL's, mobility, safety and/or upper extremity function for ADL' s. Plan of Care: ADL Retraining, Caregiver Training, Functional Mobility, Group Exercise/Act as Ind (education, exercise, activity tolerance, funct mobility, funtional actiities), UE Funct Exercise/Act, UE Neuromus Re-Ed/Coord, W/C Management Training, OTHER (energy conservation education) Treatment Duration: Jun 07, 2018 Frequency: At least 5 of 7 days/Wk (IRF) Estimated Hrs Per Day: 1.5 hours per day Agreement: Yes Rehab Potential: Fair Time/GCodes Start Time: 13:30 Stop Time: 14:00 Total Time Billed (hr/min): 30 Billed Treatment Time 1, Ex x 15minutes, ADL x 15minutes LUIS VALLE OT May 23, 2018 15:40
[2018-05-23] MEDS: ONDANSETRON 8 MG (ZOFRAN) ORAL DISSOLVE TAB PO PRN (17:27)
[2018-05-23 17:28] VITALS: BP 162/95
[2018-05-23] MEDS: DONEPEZIL 10 MG (ARICEPT) TAB PO SCH (21:00)
[2018-05-23] MEDS: ATORVASTATIN 40 MG (LIPITOR) TABLET PO SCH (21:00)
[2018-05-23] MEDS: OLANZapine 5 MG (ZyPREXA) TAB PO SCH (21:00)
[2018-05-24] MEDS: HYDROcodone/APAP 10 MG/325 MG (LORTAB) TAB PO PRN ×3 (01:57→15:31)
[2018-05-24 05:38] VITALS: BP 114/71
[2018-05-24] MEDS: LACTOBACILLUS ACIDOPHILUS (PROBIOTIC) CAPSULE PO SCH ×3 (06:19→17:05)
[2018-05-24] MEDS: CYANOCOBALAMIN 1,000 MCG (VITAMIN B-12) TABLET PO SCH (06:19)
[2018-05-24] MEDS: MULTIVIT W/MINERALS TAB (THERAGRAN M) PO SCH (06:20)
[2018-05-24] MEDS: PANTOPRAZOLE 40 MG (PROTONIX) TAB PO SCH ×2 (06:20→20:34)
[2018-05-24] MEDS: RT-ADVAIR HFA 115/21 MCG PER PUFF IH SCH ×2 (06:38→18:46)
--- NOTE | 2018-05-24 07:45 | Progress Note (SOAP) ---
Subjective Time Seen by a Provider: 07:43 Subjective/Events-last exam Patient doing good. Patient extubated with trach and doing good. Patient has concerns about Zyprexa Objective Exam Vital Signs Date Time Temp Pulse Resp B/P (MAP) Pulse Ox O2 Delivery O2 Flow Rate FiO2 05/24/18 06:38 94 Nasal Cannula 3.00 05/24/18 05:38 98.2 75 16 114/71 (85) 96 Nasal Cannula 3.00 05/23/18 21:15 Nasal Cannula 3.00 05/23/18 20:30 95 3.00 05/23/18 17:28 98.0 83 20 162/95 (117) 98 Nasal Cannula 3.00 05/23/18 08:30 Nasal Cannula 3.00 I & O 05/24/18 07:00 Intake Total 1950 ml Balance 1950 ml Capillary Refill : General Appearance: No Apparent Distress, WD/WN HEENT: Normal ENT Inspection Neck: Full Range of Motion, Normal Inspection Respiratory: No Accessory Muscle Use, No Respiratory Distress, Decreased Breath Sounds Cardiovascular: Regular Rate, Rhythm, No Murmur Gastrointestinal: non tender, soft Results Lab Microbiology 05/22/18 Urine Culture - Preliminary, Resulted Citrobacter freundii complex Assessment/Plan Assessment/Plan Assess & Plan/Chief Complaint Myopathy. COPD. Morbid obesity. Bipolar. Anxiety. Depression. Psoriasis. On ventilator. PEG tube removed. Coronary artery disease. GERD. Hypothyroid. Morbid obesity. . 05/21/18. Myopathy. COPD. Morbid obesity. Bipolar. Anxiety. Depression. Psoriasis. Coronary artery disease. Hypothyroid. Morbid obesity. Patient states she's working hard. . 05/22/18. Patient feeling good today. CT of the chest may showpulmonary emboli. COPD. Morbid obesity. Bipolar. Psoriasis. Coronary artery disease Hypothyroid. . 05/23/18. Trach extubated. Patient breathing good. V/Q scan negative for pulmonary embolism. Morbid obesity. Psoriasis. Coronary artery disease. Hypothyroid. Patient feel she is improving. . 05/24/18. Morbid obesity. Psoriasis. Disuse myopathy. Coronary artery disease. Bipolar. Hypothyroid Clinical Quality Measures DVT/VTE Risk/Contraindication: Risk Factor Score Per Nursin RFS Level Per Nursing on Admit: 4+=Very High JOCELYNE MEI DO May 24, 2018 07:45
--- NOTE | 2018-05-24 07:56 | Pulmonary Progress Note ---
Subjective Time Seen by a Provider: 07:55 Subjective/Events-last exam No complications noted. Sepsis Event Evaluation Height, Weight, BMI Height: 5'5.00" Weight: 231lbs. 2.0oz. 104.036859gs; 38.8 BMI Method:Stated Exam Exam Vital Signs Date Time Temp Pulse Resp B/P (MAP) Pulse Ox O2 Delivery O2 Flow Rate FiO2 05/24/18 06:38 94 Nasal Cannula 3.00 05/24/18 05:38 98.2 75 16 114/71 (85) 96 Nasal Cannula 3.00 05/23/18 21:15 Nasal Cannula 3.00 05/23/18 20:30 95 3.00 05/23/18 17:28 98.0 83 20 162/95 (117) 98 Nasal Cannula 3.00 05/23/18 08:30 Nasal Cannula 3.00 I & O 05/24/18 07:00 Intake Total 1950 ml Balance 1950 ml Height & Weight Height: 5'5.00" Weight: 231lbs. 2.0oz. 104.779411pe; 38.8 BMI Method:Stated General Appearance: No Apparent Distress, WD/WN HEENT: Normal ENT Inspection Neck: Normal Inspection Respiratory: Lungs Clear, No Accessory Muscle Use, No Respiratory Distress, Decreased Breath Sounds Cardiovascular: Regular Rate, Rhythm Gastrointestinal: non tender, soft Extremity: Normal Capillary Refill, Normal Inspection, Normal Range of Motion, Non Tender, No Calf Tenderness, No Pedal Edema Neurologic/Psychiatric: Alert, Oriented x3, No Motor/Sensory Deficits, Normal Mood/Affect Skin: Normal Color, Warm/Dry Lymphatic: No Adenopathy Results Lab Laboratory Tests 05/22/18 09:05 Assessment/Plan Assessment/Plan S/P ARDS/respiratory failure - tracheostomy from [place] -CT scan reviewed and questions PE. -V/Q scan is low probability of PE -- I doubt PE - bilateral dopplers -- Negative -Pt doing well without trach tube. COPD -SVNs CAD hx Morbid obesity Hx of Bipolar/anxiety Depression MERCEDES GARZA DO May 24, 2018 07:55
[2018-05-24] MEDS: CEFDINIR 300 MG (OMNICEF) CAP PO SCH ×2 (08:24→20:34)
[2018-05-24] MEDS: MELOXICAM 7.5 MG (MOBIC) TABLET PO SCH (08:24)
[2018-05-24] MEDS: LORATADINE (CLARITIN) 10 MG TAB PO SCH (08:25)
[2018-05-24] MEDS: ENOXAPARIN 40 MG/0.4 ML (LOVENOX) SYR SC SCH (08:26)
[2018-05-24 08:50] VITALS: BP 136/78
[2018-05-24] MEDS: meTOprolol TARTRATE 50 MG (LOPRESSOR) TAB PO SCH ×2 (09:09→20:34)
[2018-05-24] MEDS: DOCUSATE SODIUM 100 MG (COLACE) CAP PO SCH ×2 (09:10→19:45)
[2018-05-24] MEDS: ARTIFICAL TEARS 0.4 ML UNIT DOSE (REFRESH PLUS) OU SCH ×3 (09:10→20:34)
[2018-05-24] MEDS: SUCRALFATE 1 GM (CARAFATE) TAB PO SCH ×3 (09:13→20:34)
[2018-05-24] MEDS: TRIAMCINOLONE 0.5% CR (KENALOG) 15 GM TUBE TOP SCH ×3 (09:15→20:33)
--- NOTE | 2018-05-24 09:55 | Physical Therapy Daily Note ---
PT Daily Note-Current Subjective Patient in bed pre tx, agrees to PT, has pain of 8/10 in both shoulders, nurse in room to give her pain meds. Will be co-treating with OT this morning due to poor patient mobility, strength, endurance. Appearance Patient in wheelchair at bedside post tx with nurse call, phone, tray, all needs met. Mental Status Patient Orientation: Person, Place, Situation Attachments: Oxygen Transfers Therapy Code Descriptions/Definitions Functional [place] Measure: 0=Not Assessed/NA 4=Minimal Assistance 1=Total Assistance 5=Supervision or Setup 2=Maximal Assistance 6=Modified [place] 3=Moderate Assistance 7=Complete [place] Therapy Quality Codes: 6 Independent with activity with or without an assistive device 5 Patient requires set up or clean up by helper. Patient completes activity by themselves 4 Supervision or touching assist (CGA). [place] provide cues , steadying assist 3 The helper provides less than half the effort to complete the activity 2 The helper provides more than half the effort to complete the activity 1 Dependent. The helper does all the effort to complete an activity 7 Patient refused to complete or attempt activity 9 The patient did not perform the activity before the current illness or injury 88 Not attempted due to Medical conditions or safety concerns Transfers (B, C, W/C) (FIM): 4 Scootin Rollin Supine to/from Sit: 4 Sit to/from Stand: 4 Bed to/from Chair: 4 Patient performs sit to stand and stand pivot transfers with min assist now. Needs cues for hand placement, will often try to pull on therapist to stand. Gait Training Gait (FIM): 1 Distance: 20'x3 Gait Level of Assist: 4 Gait Persons Needed: 1 Gait Assistive Device: FWW Min assist, leg very shaky, states she feels like her knees are going to buckle. Treatments bed mobility and transfers, ambulation, patient was dressed and stood while grooming and she was toileted. Patient had to perform several sit to stand and transfers for dressing and toileting. Assessment Current Status: Fair Progress improved ambulation PT Short Term Goals Short Term Goals Time Frame: May 24, 2018 Transfers (B,C,W/C) (FIM): 3 Gait (FIM): 1 Gait Distance Comment: 5' Gait Level of Assist: 4 Gait Assistive Device: Parallel Bars Wheelchair (FIM): 1 Wheelchair Distance: 20' PT Small Piece Cutter Goals Small Piece Cutter Goals PT Jail Goals Time Frame: Jun 07, 2018 Transfers (B,C,W/C) (FIM): 4 Sit to Lying (QC): 4 Lying-Sitting on Side/Bed(QC): 4 Sit to Stand (QC): 4 Rollin Roll Left to Right (QC): 4 Chair/Vcn-ow-Psieu Xfer(QC): 3 Car Transfer (QC): 3 Gait (FIM): 1 Distance: 20' Walk 10 feet (QC): 4 Gait Level of Assist: 4 Gait Assistive Device: FWW Wheelchair (FIM): 2 Distance: 50' Wheelchair Level of Assist: 5 Wheel 50 feet with 2 turns (QC: 4 PT Plan Problem List Problem List: Activity Tolerance, Functional Strength, Safety, Balance, Gait, Transfer, Bed Mobility, ROM Treatment/Plan Treatment Plan: Continue Plan of Care Treatment Plan: Bed Mobility, Concurrent Therapy, Education, Functional Activity Fede, Functional Strength, Group Therapy, Gait, Safety, Therapeutic Exercise, Transfers Treatment Duration: Jun 07, 2018 Frequency: At least 5 of 7 days/Wk (IRF) Estimated Hrs Per Day: 1.5 hours per day Patient and/or Family Agrees t: Yes Safety Risks/Education Patient Education: Gait Training, Transfer Techniques, Correct Positioning, Safety Issues Teaching Recipient: Patient Teaching Methods: Demonstration, Discussion Response to Teaching: Reinforcement Needed Time/GCodes Time In: 0900 Time Out: 0945 Total Billed Treatment Time: 45 Total Billed Treatment 1 visit GT 25' FA 20' CLAU SALAZAR PT May 24, 2018 09:55
--- NOTE | 2018-05-24 10:47 | Speech Therapy Daily Note ---
Speech Daily Progress Note Subjective Date Seen by Provider: May 24, 2018 Time Seen by Provider: 00:30 Patient alert and pleasant. Objective Patient completed word finding exercises with 90% accuracy given minimal verbal cues. Treatment Plan Continue Plan of Care Communication Comprehension: 3 Expression: 3 Social Cognition Social Interaction: 4 Problem Solvin Memory: 3 Speech Short Term Goals Short Term Goals Short Term Goals 1) Patient will recall information for safety awareness at 90% or greater with minimal cues. 2) Patient will recall new information from memory tasks at 90% accuracy or greater with minimal cues. 3) Patient will follow simple directions within her immediate living environment at 90% or greater with minimal cues. Speech Penitentiary Goals Tile Erector Goals Patient will improve safety awareness and independence with 90% accuracy. Speech-Plan Patient/Family Goals Patient/Family Goals: Patient plans to return home with family support post rehab. Treatment Plan Speech Therapy Treatment Plan: Continue Plan of Care Patient is progressing well with ST goals. Treatment Duration: May 31, 2018 Frequency: 5 times per week Estimated Hrs Per Day: .5 hour per day Rehab Potential: Fair Barriers to Learning: Patient has dementia. Pt/Family Agrees to Plan: Yes Safety Risks/Education Teaching Recipient: Patient Teaching Methods: Discussion Response to Teaching: Verbalize Understanding Education Topics Provided: Safety within her room. Time Speech Therapy Time In: 10:00 Speech Therapy Time Out: 10:30 Total Billed Time: 30 Billed Treatment Time 1FL[address] May 24, 2018 10:47
[2018-05-24] MEDS: ONDANSETRON 8 MG (ZOFRAN) ORAL DISSOLVE TAB PO PRN (11:05)
[2018-05-24] MEDS: SCOPOLAMINE 1.5 MG (TRANSDERM-SCOP) PATCH TD SCH (11:05)
[2018-05-24] MEDS: PATCH REMOVAL TP SCH (11:05)
[2018-05-24] MEDS ORDERED: SALINE NASAL SPRAY (OCEAN) 45 ML BTL PRN (12:15)
--- NOTE | 2018-05-24 13:27 | Occupational Ther Daily Note ---
OT Current Status-Daily Note Subjective Pt in bed, agrees to therapy today. Reports 8/10 pain in bilateral shoulders. RN notified and provided pain medication. Mental Status/Objective Therapy Code Descriptions/Definitions Functional [place] Measure: 0=Not Assessed/NA 4=Minimal Assistance 1=Total Assistance 5=Supervision or Setup 2=Maximal Assistance 6=Modified [place] 3=Moderate Assistance 7=Complete [place] Attachments: Oxygen ADL-Treatment Co-treat with PT secondary to impaired mobility, strength, and activity tolerance. OT focusing on ADLs, safety, and UE management. PT focusing on mobility, balance, and safety. Pt supine to sit with minimal assistance. Dressing completed seated EOB. Pt attempts to thread UE into sleeves, has difficulty. Requires assist to thread arms through sleeves and machine assembler for puller over head. Pt able to pull shirt down in front, but requires assist to pull down in back. Assist required to thread bilateral LE into Depends and pant legs. One person to assist with standing and another to assist with pulling pants up and completing pant hike. Stand pivot transfer to toilet. Pt requires assist for clothing management and toileting hygiene. Transfer to w/c. Grooming tasks completed at sink. Pt stood with assist for balance while brushing teeth. Pt able to place toothpaste on toothbrush and brush teeth. Requires seated rest break after task completion. Pt requires assist to comb hair and put it up in ponytail. Therapy Code Descriptions/Definitions Functional [place] Measure: 0=Not Assessed/NA 4=Minimal Assistance 1=Total Assistance 5=Supervision or Setup 2=Maximal Assistance 6=Modified [place] 3=Moderate Assistance 7=Complete [place] Therapy Quality Codes: 6 Independent with activity with or without an assistive device 5 Patient requires set up or clean up by helper. Patient completes activity by themselves 4 Supervision or touching assist (CGA). [place] provide cues , steadying assist 3 The helper provides less than half the effort to complete the activity 2 The helper provides more than half the effort to complete the activity 1 Dependent. The helper does all the effort to complete an activity 7 Patient refused to complete or attempt activity 9 The patient did not perform the activity before the current illness or injury 88 Not attempted due to Medical conditions or safety concerns Grooming (FIM): 2 Upper Body (FIM): 2 Upper Body Dressing (QC): 2 Lower Body Dressing (FIM): 1 Lower Body Dressing (QC): 1 Toileting (FIM): 1 Toileting Hygiene (QC): 1 Other Treatment To therapy gym via w/c. Pt sit to stand with minimal assistance, cues to push up from chair. Pt performed gait with FWW with minimal assistance and w/c follow. Pt states her legs feel weak. Pt completed three trials of gait with FWW with rest breaks between each. Pt returned to room, sitting in w/c with needs met after session. OT Short Term Goals Short Term Goals Time Frame: May 24, 2018 Eating(FIM): 5 Grooming(FIM): 5 Bathing(FIM): 3 Upper Body Dressing(FIM): 5 Lower Body Dressing(FIM): 2 Toileting(FIM): 1 (one person) Transfers (B,C,W/C) (FIM): 3 Toilet/Commode Transfer(FIM): 1 (one person) Additional Short Term Goals: 1-Demonstrate ADL Tasks, 2-Verbalize Understanding , 3-ImproveStrength/Fede 1=Demonstrate adherence to instructed precautions during ADL tasks. 2=Patient will verbalize/demonstrate understanding of assistive devices/ modifications for ADL. 3=Patient will improve strength/tolerance for activity to enable patient to perform ADL's. OT [employer] Project Manager Goals Time Frame: Jun 07, 2018 Eating (FIM): 7 Eating (QC): 6 Groomin Oral Hygiene (QC): 6 Bathing(FIM): 5 Shower/Bathe Self (QC): 5 Upper Body Dressing(FIM): 6 Upper Body Dressing (QC): 6 Lower Body Dressing(FIM): 6 Lower Body Dressing (QC): 6 On/Off Footwear (QC): 6 Toileting(FIM): 6 Toileting Hygiene (QC): 6 Toilet/Commode Transfer(FIM): 6 Toilet/Commode Transfer (QC): 6 Shower Transfer(FIM): 6 Additional Goals: 1-Demonstrate ADL Tasks, 2-Verbalize Understanding, 3- ImproveStrength/Fede 1=Demonstrate adherence to instructed precautions during ADL tasks. 2=Patient will verbalize/demonstrate understanding of assistive devices/ modifications for ADL. 3=Patient will improve strength/tolerance for activity to enable patient to perform ADL's. OT Education/Plan Discharge Recommendations Plan/Recommendations: Continue POC Treatment Plan/Plan of Care Patient would benefit from OT for education, treatment and training to promote independence in ADL's, mobility, safety and/or upper extremity function for ADL' s. Plan of Care: ADL Retraining, Caregiver Training, Functional Mobility, Group Exercise/Act as Ind (education, exercise, activity tolerance, funct mobility, funtional actiities), UE Funct Exercise/Act, UE Neuromus Re-Ed/Coord, W/C Management Training, OTHER (energy conservation education) Treatment Duration: Jun 07, 2018 Frequency: At least 5 of 7 days/Wk (IRF) Estimated Hrs Per Day: 1.5 hours per day Agreement: Yes Rehab Potential: Fair Time/GCodes Start Time: 09:00 Stop Time: 09:45 Total Time Billed (hr/min): 45 Billed Treatment Time 1 visit, ADLx2(25minutes), FA(20minutes) ALIYAH PORTILLO OT May 24, 2018 13:27
--- NOTE | 2018-05-24 15:06 | Therapy Group Daily Note ---
Therapy Daily Group Note Other/Notes Patients had group therapy in the common area of rehab this afternoon. Each patient ambulated or was transported to group therapy and they sat at several tables. Each patient had to introduce themselves and state where they were from and state why they were on rehab (unless they did not want to). Then patient's were oriented to rehab to schedule, time required, average stay. etc. Patients performed UE and LE strengthening exercises. They were educated on the benefits of exercise. They also performed a memory game. Finally, patients ambulated or were transported back to their room and placed in chair or bed (with alarm on if needed), with nurse call, phone, tray. Start Time: 13:00 Stop Time: 14:15 Total Billed Treatment Time: 75 Total Billed Treatment 1 visit GRP 75' CLAU SALAZAR PT May 24, 2018 15:06
[2018-05-24] MEDS: CATHETER FLUSH 10 ML SYR IV SCH ×3 (15:36→19:46)
--- NOTE | 2018-05-24 16:35 | PM&R Progress Note ---
Subjective This was a face to face visit with the patient. Date Seen by Provider: May 24, 2018 Time Seen by Provider: 16:30 Subjective/Events-last exam Patient was seen in HER ROOM THIS AFTERNOON pATIENT MIN ASSIST FOR TRANSFERS uRINE C&S NOTED-MIXED CIT[place]ALY tRACH HEALING WELL Review of Systems Neurological: Weakness Objective Physician Exam Last Set of Vital Signs Vital Signs Date Time Temp Pulse Resp B/P (MAP) Pulse Ox O2 Delivery O2 Flow Rate FiO2 05/24/18 08:50 136/78 (97) 05/24/18 08:41 Nasal Cannula 3.00 05/24/18 06:38 94 05/24/18 05:38 98.2 75 16 Capillary Refill : I&O Intake and Output 05/24/18 00:00 Intake Total 2020 ml Balance 2020 ml Intake Oral 2020 ml # Voids 8 # Bowel Movements 3 General: Alert, Oriented X3, Cooperative, No Acute Distress HEENT: Atraumatic, PERRLA, EOMI, Mucous Memb Moist/[place] Housing Neck: Other (Trach in Place) Lungs: Clear to Auscultation Heart: Regular Rate Abdomen: Normal Bowel Sounds, Soft, No Tenderness, Other (obese with peg site healing well) Extremities: Other (Trace ankle edema) Neuro: Other (Proximal weakness Both lower limbs Strength 3+/5 Both upper limbs ) Psych/Mental Status: Other (anxiety) Results Lab Data Laboratory Tests 05/22/18 09:05: White Blood Count 12.0H, Red Blood Count 3.95L, Hemoglobin 11.0L, Hematocrit 37 , Mean Corpuscular Volume 93, Mean Corpuscular Hemoglobin 28, Mean Corpuscular Hemoglobin Concent 30L, Red Cell Distribution Width 18.7H, Platelet Count 414H, Mean Platelet Volume 9.3, Prothrombin Time 12.7, INR Comment 1.0, Activated Partial Thromboplast Time 32, D-Dimer 1.09H, Sodium Level 144, Potassium Level 3.7, Chloride Level 103, Carbon Dioxide Level 31, Anion Gap 10, Blood Urea Nitrogen 11, Creatinine 0.80, Estimat Glomerular Filtration Rate > 60, BUN/ Creatinine Ratio 14, Glucose Level 126H, Calcium Level 9.2, Corrected Calcium 9.8, Total Bilirubin 0.3, Aspartate Amino Transf (AST/SGOT) 23, Alanine Aminotransferase (ALT/SGPT) 16, Alkaline Phosphatase 73, Total Protein 5.6L, Albumin 3.3 12/12/18 10:30: Urine Color YELLOW, Urine Clarity CLEAR, Urine pH 6, Urine Specific [place] 1.020, Urine Protein NEGATIVE, Urine Glucose (UA) NEGATIVE, Urine Ketones NEGATIVE, Urine Nitrite NEGATIVE, Urine Bilirubin NEGATIVE, Urine Urobilinogen NORMAL, Urine Leukocyte Esterase 1+H, Urine RBC (Auto) 1+H, Urine RBC 0-2, Urine WBC 10-25H, Urine Squamous Epithelial Cells 5-10, Urine Renal Epithelial Cells NONE, Urine Crystals NONE, Urine Bacteria MODERATEH, Urine Casts PRESENT, Urine Hyaline Casts 5-10H, Urine Mucus SMALLH, Urine Culture Indicated YES Microbiology 05/22/18 Urine Culture - Preliminary, Resulted Citrobacter freundii complex Pseudomonas aeruginosa Enterococcus faecium Assessment/Plan Assessment and Plan dISUSE MYOPATHY S/P RESP FAILURE DUE TO pNEUMONIA AND SEPSIS copd 02 DEPENDENT tRACH S/P DECANNULATION dvt pROPHYLAXIS LOW DOSE LOVENOX oa tOBACCOISM aNXIETY uti ON ANTIBIOTIC pLAN cONTINUE pt/ot f/u WITH pcp AND pulm PRN rECONFERENCE NEXT WEEK Co-Morbidities that are continuing to impact the rehab process: (include details ) JOSE COOK MD May 24, 2018 16:35
[2018-05-24 17:18] VITALS: BP 150/80
[2018-05-24] MEDS: OLANZapine 5 MG (ZyPREXA) TAB PO SCH (20:34)
[2018-05-24] MEDS: DONEPEZIL 10 MG (ARICEPT) TAB PO SCH (20:34)
[2018-05-24] MEDS: ATORVASTATIN 40 MG (LIPITOR) TABLET PO SCH (20:34)
[2018-05-24] MEDS: DICLOFENAC 1% GEL 100 GM (VOLTAREN) TUBE TOP SCH (21:04)
[2018-05-25] MEDS: HYDROcodone/APAP 10 MG/325 MG (LORTAB) TAB PO PRN ×2 (05:16→16:17)
[2018-05-25] MEDS: PANTOPRAZOLE 40 MG (PROTONIX) TAB PO SCH ×2 (05:16→20:06)
[2018-05-25] MEDS: MULTIVIT W/MINERALS TAB (THERAGRAN M) PO SCH (05:16)
[2018-05-25] MEDS: LACTOBACILLUS ACIDOPHILUS (PROBIOTIC) CAPSULE PO SCH ×3 (05:16→16:17)
[2018-05-25] MEDS: CYANOCOBALAMIN 1,000 MCG (VITAMIN B-12) TABLET PO SCH (05:16)
[2018-05-25 05:31] VITALS: BP 161/92
[2018-05-25] MEDS: RT-ADVAIR HFA 115/21 MCG PER PUFF IH SCH ×2 (07:16→19:28)
--- NOTE | 2018-05-25 09:04 | PM&R Progress Note ---
Subjective This was a face to face visit with the patient. Date Seen by Provider: May 25, 2018 Time Seen by Provider: 08:00 Subjective/Events-last exam Patient was seen in her room this AM Patient Min assist for transfers Voltaren gel ordered for Shoulder pain. Time Identified: 08:00 Medication Intervention: Voltaren gel ordered as per above Review of Systems Musculoskeletal: shoulder pain Objective Physician Exam Last Set of Vital Signs Vital Signs Date Time Temp Pulse Resp B/P (MAP) Pulse Ox O2 Delivery O2 Flow Rate FiO2 05/25/18 07:16 99 Nasal Cannula 3.00 05/25/18 05:31 98.0 80 18 161/92 (115) Capillary Refill : I&O Intake and Output 05/25/18 00:00 Intake Total 2075 ml Balance 2075 ml Intake Oral 2075 ml # Voids 8 # Bowel Movements 2 General: Alert, Oriented X3, Cooperative, No Acute Distress HEENT: Atraumatic, PERRLA, EOMI, Mucous Memb Moist/[place] Neck: Other (Trach in Place) Lungs: Clear to Auscultation Heart: Regular Rate Abdomen: Normal Bowel Sounds, Soft, No Tenderness, Other (obese with peg site healing well) Extremities: Other (Trace ankle edema) Neuro: Other (Proximal weakness Both lower limbs Strength 3+/5 Both upper limbs ) Psych/Mental Status: Other (anxiety) Results Lab Data Laboratory Tests 05/22/18 09:05: White Blood Count 12.0H, Red Blood Count 3.95L, Hemoglobin 11.0L, Hematocrit 37 , Mean Corpuscular Volume 93, Mean Corpuscular Hemoglobin 28, Mean Corpuscular Hemoglobin Concent 30L, Red Cell Distribution Width 18.7H, Platelet Count 414H, Mean Platelet Volume 9.3, Prothrombin Time 12.7, INR Comment 1.0, Activated Partial Thromboplast Time 32, D-Dimer 1.09H, Sodium Level 144, Potassium Level 3.7, Chloride Level 103, Carbon Dioxide Level 31, Anion Gap 10, Blood Urea Nitrogen 11, Creatinine 0.80, Estimat Glomerular Filtration Rate > 60, BUN/ Creatinine Ratio 14, Glucose Level 126H, Calcium Level 9.2, Corrected Calcium 9.8, Total Bilirubin 0.3, Aspartate Amino Transf (AST/SGOT) 23, Alanine Aminotransferase (ALT/SGPT) 16, Alkaline Phosphatase 73, Total Protein 5.6L, Albumin 3.3 05/22/18 10:30: Urine Color YELLOW, Urine Clarity CLEAR, Urine pH 6, Urine Specific [place] 1.020, Urine Protein NEGATIVE, Urine Glucose (UA) NEGATIVE, Urine Ketones NEGATIVE, Urine Nitrite NEGATIVE, Urine Bilirubin NEGATIVE, Urine Urobilinogen NORMAL, Urine Leukocyte Esterase 1+H, Urine RBC (Auto) 1+H, Urine RBC 0-2, Urine WBC 10-25H, Urine Squamous Epithelial Cells 5-10, Urine Renal Epithelial Cells NONE, Urine Crystals NONE, Urine Bacteria MODERATEH, Urine Casts PRESENT, Urine Hyaline Casts 5-10H, Urine Mucus SMALLH, Urine Culture Indicated YES Microbiology 05/22/18 Urine Culture - Preliminary, Resulted Citrobacter freundii complex Pseudomonas aeruginosa Enterococcus faecium Assessment/Plan Assessment and Plan 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 sepsis COPD 02 dependent Trach s/p decannulation healing well DVT Prophylaxis low dose lovenox OA Tobaccoism Anxiety UTI on antibiotic Shoulder pain Plan Continue PT/OT/Pain management Team Conference next week Goal return home with [facility] Modified Independent Co-Morbidities that are continuing to impact the rehab process: (include details ) JOSE COOK MD May 25, 2018 09:04
[2018-05-25] MEDS: meTOprolol TARTRATE 50 MG (LOPRESSOR) TAB PO SCH ×2 (09:05→20:06)
[2018-05-25] MEDS: SUCRALFATE 1 GM (CARAFATE) TAB PO SCH ×3 (09:05→20:06)
[2018-05-25] MEDS: CEFDINIR 300 MG (OMNICEF) CAP PO SCH (09:05)
[2018-05-25] MEDS: LORATADINE (CLARITIN) 10 MG TAB PO SCH (09:05)
[2018-05-25] MEDS: MELOXICAM 7.5 MG (MOBIC) TABLET PO SCH (09:05)
[2018-05-25] MEDS: ENOXAPARIN 40 MG/0.4 ML (LOVENOX) SYR SC SCH (09:07)
[2018-05-25] MEDS: DOCUSATE SODIUM 100 MG (COLACE) CAP PO SCH ×2 (09:08→19:24)
[2018-05-25] MEDS: TRIAMCINOLONE 0.5% CR (KENALOG) 15 GM TUBE TOP SCH ×3 (09:09→20:12)
[2018-05-25] MEDS: ARTIFICAL TEARS 0.4 ML UNIT DOSE (REFRESH PLUS) OU SCH ×3 (09:16→20:06)
--- NOTE | 2018-05-25 10:52 | Physical Therapy Daily Note ---
PT Daily Note-Current Subjective Pt laying Supine in bed upon arrival. Pt agrees to PT. Pain Numeric Pain Scale: 8 Location: Right, Left Location Body Site: Shoulder Pain Description: Ache, Tightness Mental Status Patient Orientation: Person, Place, Situation Attachments: Oxygen Transfers Therapy Code Descriptions/Definitions Functional [place] Measure: 0=Not Assessed/NA 4=Minimal Assistance 1=Total Assistance 5=Supervision or Setup 2=Maximal Assistance 6=Modified [place] 3=Moderate Assistance 7=Complete [place] Therapy Quality Codes: 6 Independent with activity with or without an assistive device 5 Patient requires set up or clean up by helper. Patient completes activity by themselves 4 Supervision or touching assist (CGA). [place] provide cues , steadying assist 3 The helper provides less than half the effort to complete the activity 2 The helper provides more than half the effort to complete the activity 1 Dependent. The helper does all the effort to complete an activity 7 Patient refused to complete or attempt activity 9 The patient did not perform the activity before the current illness or injury 88 Not attempted due to Medical conditions or safety concerns Exercises Supine Ex: Ankle pumps, Quad Set, Glut sets, Heel Slides, Straight leg raise, Hip abd/add Supine Reps: 15 Treatments Pt completes Supine Ex in bed with several rest breaks. Pt resting at end of tx with all needs met, Aide to bathe pt shortly. Assessment Current Status: Fair Progress Pt fatigues easily and needs frequent rest breaks. PT Short Term Goals Short Term Goals Time Frame: May 24, 2018 Transfers (B,C,W/C) (FIM): 3 Gait (FIM): 1 Gait Distance Comment: 5' Gait Level of Assist: 4 Gait Assistive Device: Parallel Bars Wheelchair (FIM): 1 Wheelchair Distance: 20' PT Simplex Operator Goals Halfway Goals PT Halfway Goals Time Frame: Jun 07, 2018 Transfers (B,C,W/C) (FIM): 4 Sit to Lying (QC): 4 Lying-Sitting on Side/Bed(QC): 4 Sit to Stand (QC): 4 Rollin Roll Left to Right (QC): 4 Chair/Jvg-ek-Enfwh Xfer(QC): 3 Car Transfer (QC): 3 Gait (FIM): 1 Distance: 20' Walk 10 feet (QC): 4 Gait Level of Assist: 4 Gait Assistive Device: FWW Wheelchair (FIM): 2 Distance: 50' Wheelchair Level of Assist: 5 Wheel 50 feet with 2 turns (QC: 4 PT Plan Problem List Problem List: Activity Tolerance, Functional Strength, Safety, Balance, Gait, Transfer Treatment/Plan Treatment Plan: Continue Plan of Care Treatment Plan: Bed Mobility, Concurrent Therapy, Education, Functional Activity Fede, Functional Strength, Group Therapy, Gait, Safety, Therapeutic Exercise, Transfers Treatment Duration: Jun 07, 2018 Frequency: At least 5 of 7 days/Wk (IRF) Estimated Hrs Per Day: 1.5 hours per day Patient and/or Family Agrees t: Yes Safety Risks/Education Patient Education: Transfer Techniques, Correct Positioning, Safety Issues Teaching Recipient: Patient Teaching Methods: Discussion Response to Teaching: Verbalize Understanding Time/GCodes Time In: 935 Time Out: 1000 Total Billed Treatment Time: 25 Total Billed Treatment 1, EX x2 (25m) G Codes Necessary: VÍCTOR Joel [employer]IATION SUPPORT EQUIPMENT REPAIRER May 25, 2018 10:52
--- NOTE | 2018-05-25 11:00 | NUR ---
IS IMPROVING. ABLE TO STAND UP TO GET TO CHAIR MUCH BETTER TODAY. STILL HAVING LEFT SHOULDER PAIN. VOLTAREN GEL HELPS.
[2018-05-25] MEDS: DICLOFENAC 1% GEL 100 GM (VOLTAREN) TUBE TOP SCH ×4 (11:18→20:16)
--- NOTE | 2018-05-25 12:00 | NUR ---
DR. COLLIER INFORMED OF URINE CULTURE RESULTS. OMNICEF DC'D AND NO ANTIBIOTICS PRESENTLY. WILL STRAIGHT CATH FOR UA. STARTED ON CONTACT ISOLATION.
--- NOTE | 2018-05-25 12:02 | Progress Note-Hospitalist ---
Subjective HPI/CC On Admission Date Seen by Provider: May 25, 2018 Time Seen by Provider: 11:15 CC: Debility HPI: This is a 58-year-old white female clinic patient of Dr. Ward known to me from ICU stay on a ventilator 8 weeks ago he was unable to be weaned so she was transferred to [place] and has had a complicated course including trach placement for long-term vent use and PEG tube placement. She has been sent to inpatient rehabilitation for further recovery prior to discharge from facility. She reports nausea so I have ordered scopolamine patch and Zofran and is now from 4-8 mg every 6 hours. I review home medication and current labs and vitals. She has no complaints except for nausea. Subjective/Events-last exam Patient doing much better Overall has no issues In wheelchair now Trach and PEG DC UCx noted with resistant organisms and was not a catheter specimen so will stop abx and repeat UCx with cath specimen No fever Review of Systems General: Malaise Objective Exam Vital Signs Vital Signs Date Time Temp Pulse Resp B/P (MAP) Pulse Ox O2 Delivery O2 Flow Rate FiO2 05/25/18 08:00 Nasal Cannula 3.00 05/25/18 07:16 99 05/25/18 05:31 98.0 80 18 161/92 (115) Capillary Refill : General Appearance: No Apparent Distress, WD/WN, Chronically ill Respiratory: Chest Non Tender, Lungs Clear, Normal Breath Sounds, No Accessory Muscle Use, No Respiratory Distress Cardiovascular: Regular Rate, Rhythm, No Edema, No Gallop, No JVD, No Murmur, Normal Peripheral Pulses Neurologic/Psychiatric: Alert, Oriented x3, No Motor/Sensory Deficits, Normal Mood/Affect Results/Procedures Lab Patient resulted labs reviewed. Assessment/Plan Assessment and Plan Assess & Plan/Chief Complaint Assessment: Severe debility following critical illness and vent dependence Trach now DC PEG tube now DC Nausea resolved Mental illness precluding fast recovery Current smoker COPD Status post pneumonia Abnl UCx not cath specimen Plan: Monitor closely UCx cath specimen Inpatient rehabilitation protocol with therapies Diagnosis/Problems Diagnosis/Problems (1) Myopathy Status: Acute (2) Nausea Status: Resolved Resolution Date/Time: 05/25/18 @ 14:29 (3) Chronic mental illness Status: Chronic (4) Personal history of supraventricular tachycardia Status: Chronic (5) Smoker Status: Chronic (6) Hypertension Status: Chronic Qualifiers: Hypertension type: essential hypertension Qualified Codes: I10 - Essential (primary) hypertension (7) Bipolar disorder Status: Chronic Qualifiers: Active/Remission status: remission status unspecified Qualified Codes: F31.9 - Bipolar disorder, unspecified (8) COPD (chronic obstructive pulmonary disease) Status: Chronic Qualifiers: COPD type: unspecified COPD Qualified Codes: J44.9 - Chronic obstructive pulmonary disease, unspecified Clinical Quality Measures DVT/VTE Risk/Contraindication: Risk Factor Score Per Nursin RFS Level Per Nursing on Admit: 4+=Very High SAMANTHA COLLIER DO May 25, 2018 12:02
[2018-05-25] MEDS: CATHETER FLUSH 10 ML SYR IV SCH ×2 (13:58→20:16)
--- NOTE | 2018-05-25 14:00 | NUR ---
STRAIGHT CATH'D FOR URINE CULTURE. ONLY 15 CC URINE RETURN.
[2018-05-25] MEDS: ONDANSETRON 8 MG (ZOFRAN) ORAL DISSOLVE TAB PO PRN (15:51)
[2018-05-25 18:00] VITALS: BP 156/82
[2018-05-25] MEDS: OLANZapine 5 MG (ZyPREXA) TAB PO SCH (20:06)
[2018-05-25] MEDS: ATORVASTATIN 40 MG (LIPITOR) TABLET PO SCH (20:06)
[2018-05-25] MEDS: DONEPEZIL 10 MG (ARICEPT) TAB PO SCH (20:06)
[2018-05-26] MEDS: ONDANSETRON 8 MG (ZOFRAN) ORAL DISSOLVE TAB PO PRN ×3 (03:33→17:01)
[2018-05-26 05:05] VITALS: BP 167/80
[2018-05-26] MEDS: CATHETER FLUSH 10 ML SYR IV SCH ×3 (06:36→20:34)
[2018-05-26] MEDS: CYANOCOBALAMIN 1,000 MCG (VITAMIN B-12) TABLET PO SCH (06:37)
[2018-05-26] MEDS: MULTIVIT W/MINERALS TAB (THERAGRAN M) PO SCH (06:37)
[2018-05-26] MEDS: PANTOPRAZOLE 40 MG (PROTONIX) TAB PO SCH ×2 (06:37→20:30)
[2018-05-26] MEDS: LACTOBACILLUS ACIDOPHILUS (PROBIOTIC) CAPSULE PO SCH ×3 (06:37→17:00)
[2018-05-26] MEDS: MELOXICAM 7.5 MG (MOBIC) TABLET PO SCH (08:45)
[2018-05-26] MEDS: LORATADINE (CLARITIN) 10 MG TAB PO SCH (08:45)
[2018-05-26] MEDS: SUCRALFATE 1 GM (CARAFATE) TAB PO SCH ×3 (08:45→20:30)
[2018-05-26] MEDS: ARTIFICAL TEARS 0.4 ML UNIT DOSE (REFRESH PLUS) OU SCH ×3 (08:46→20:30)
[2018-05-26] MEDS: DOCUSATE SODIUM 100 MG (COLACE) CAP PO SCH ×2 (08:46→20:36)
[2018-05-26] MEDS: meTOprolol TARTRATE 50 MG (LOPRESSOR) TAB PO SCH ×2 (08:47→18:00)
[2018-05-26] MEDS: ENOXAPARIN 40 MG/0.4 ML (LOVENOX) SYR SC SCH (08:51)
[2018-05-26] MEDS: DICLOFENAC 1% GEL 100 GM (VOLTAREN) TUBE TOP SCH ×4 (08:52→20:34)
[2018-05-26] MEDS: TRIAMCINOLONE 0.5% CR (KENALOG) 15 GM TUBE TOP SCH ×3 (08:52→20:33)
--- NOTE | 2018-05-26 09:00 | NUR ---
MEDICATED FOR LEFT ARM PAIN. EATING MEALS WELL.
[2018-05-26] MEDS: HYDROcodone/APAP 10 MG/325 MG (LORTAB) TAB PO PRN ×2 (09:05→21:38)
[2018-05-26] MEDS: ADVAIR HFA 115/21 MCG INHALER 8 GM IH SCH ×2 (10:17→20:11)
--- NOTE | 2018-05-26 10:45 | NUR ---
COMPLAIN NAUSEA AND MEDICATED WITH ZOFRAN.
--- NOTE | 2018-05-26 11:30 | NUR ---
DR. COLLIER HERE. INFORMED OF CONTINUED INTERMITTENT NAUSEA. NO NEW ORDERS.
[2018-05-26 18:00] VITALS: BP 186/84
--- NOTE | 2018-05-26 18:00 | NUR ---
COMPLAIN LEFT-SIDED ABDOMEN PAIN AND WONDERS IF IT IS GAS RELATED. ORDER OBTAINED FOR TUMS AND SPRITE GIVEN. HYPERTENSIVE AT 186/84. 2100 LOPRESSOR GIVEN AT THIS TIME.
[2018-05-26] MEDS: CALCIUM CARBONATE 500 MG (TUMS) TAB.CHEW PO PRN (18:13)
--- NOTE | 2018-05-26 19:00 | NUR ---
FEELING BETTER NOW. STATES HAS BEEN BELCHING. DAUGHTER VISITING.
[2018-05-26 19:10] VITALS: BP 163/21
[2018-05-26] MEDS: ATORVASTATIN 40 MG (LIPITOR) TABLET PO SCH (20:30)
[2018-05-26] MEDS: DONEPEZIL 10 MG (ARICEPT) TAB PO SCH (20:30)
[2018-05-26] MEDS: OLANZapine 5 MG (ZyPREXA) TAB PO SCH (20:32)
[2018-05-27 05:29] VITALS: BP 144/77
[2018-05-27] MEDS: CYANOCOBALAMIN 1,000 MCG (VITAMIN B-12) TABLET PO SCH (06:38)
[2018-05-27] MEDS: PANTOPRAZOLE 40 MG (PROTONIX) TAB PO SCH ×2 (06:38→20:26)
[2018-05-27] MEDS: LACTOBACILLUS ACIDOPHILUS (PROBIOTIC) CAPSULE PO SCH ×3 (06:38→17:45)
[2018-05-27] MEDS: MULTIVIT W/MINERALS TAB (THERAGRAN M) PO SCH (06:38)
[2018-05-27] MEDS: CATHETER FLUSH 10 ML SYR IV SCH ×3 (06:39→22:28)
--- NOTE | 2018-05-27 06:44 | Pulmonary Progress Note ---
Subjective Time Seen by a Provider: 06:43 Subjective/Events-last exam No complications noted. Sepsis Event Evaluation Height, Weight, BMI Height: 5'5.00" Weight: 231lbs. 2.0oz. [id number]; 38.8 BMI Method:Stated Exam Exam Vital Signs Date Time Temp Pulse Resp B/P (MAP) Pulse Ox O2 Delivery O2 Flow Rate FiO2 05/27/18 05:29 98.2 74 18 144/77 (99) 94 Nasal Cannula 3.00 05/26/18 20:11 94 Nasal Cannula 3.00 05/26/18 19:52 Nasal Cannula 3.00 05/26/18 19:10 163/21 (68) 05/26/18 18:00 98.5 66 20 186/84 (118) 95 Room Air 05/26/18 10:20 Nasal Cannula 3.00 05/26/18 08:00 Nasal Cannula 3.00 I & O 05/27/18 07:00 Intake Total 1140 ml Balance 1140 ml Height & Weight Height: 5'5.00" Weight: 231lbs. 2.0oz. 104.618892fx; 38.8 BMI Method:Stated General Appearance: No Apparent Distress, WD/WN HEENT: Normal ENT Inspection Neck: Normal Inspection Respiratory: Lungs Clear, No Accessory Muscle Use, No Respiratory Distress, Decreased Breath Sounds Cardiovascular: Regular Rate, Rhythm Gastrointestinal: non tender, soft Extremity: Normal Capillary Refill, Normal Inspection, Normal Range of Motion, Non Tender, No Calf Tenderness, No Pedal Edema Neurologic/Psychiatric: Alert, Oriented x3, No Motor/Sensory Deficits, Normal Mood/Affect Skin: Normal Color, Warm/Dry Lymphatic: No Adenopathy Assessment/Plan Assessment/Plan S/P ARDS/respiratory failure - tracheostomy from [place] -CT scan reviewed and questions PE. -V/Q scan is low probability of PE -- I doubt PE - bilateral dopplers -- Negative -Pt doing well without trach tube. COPD -SVNs CAD hx Morbid obesity Hx of Bipolar/anxiety Depression MERCEDES GARZA DO May 27, 2018 06:44
--- NOTE | 2018-05-27 07:50 | Progress Note (SOAP) ---
Subjective Time Seen by a Provider: 07:49 Subjective/Events-last exam Patient feeling more stressed. Sulphrin not working. To add Phenergan 25 mg 3 times a day Objective Exam Vital Signs Date Time Temp Pulse Resp B/P (MAP) Pulse Ox O2 Delivery O2 Flow Rate FiO2 05/27/18 05:29 98.2 74 18 144/77 (99) 94 Nasal Cannula 3.00 05/26/18 20:11 94 Nasal Cannula 3.00 05/26/18 19:52 Nasal Cannula 3.00 05/26/18 19:10 163/21 (68) 05/26/18 18:00 98.5 66 20 186/84 (118) 95 Room Air 05/26/18 10:20 Nasal Cannula 3.00 05/26/18 08:00 Nasal Cannula 3.00 I & O 05/27/18 07:00 Intake Total 1140 ml Balance 1140 ml Capillary Refill : General Appearance: No Apparent Distress, WD/WN HEENT: Normal ENT Inspection Neck: Full Range of Motion Respiratory: No Accessory Muscle Use, No Respiratory Distress, Decreased Breath Sounds Cardiovascular: Regular Rate, Rhythm, No Murmur Gastrointestinal: non tender, soft Results Lab Microbiology 05/22/18 Urine Culture - Final, Complete Citrobacter freundii complex Pseudomonas aeruginosa Enterococcus faecium See Comments Assessment/Plan Assessment/Plan Assess & Plan/Chief Complaint Myopathy. COPD. Morbid obesity. Bipolar. Anxiety. Depression. Psoriasis. On ventilator. PEG tube removed. Coronary artery disease. GERD. Hypothyroid. Morbid obesity. . 05/21/18. Myopathy. COPD. Morbid obesity. Bipolar. Anxiety. Depression. Psoriasis. Coronary artery disease. Hypothyroid. Morbid obesity. Patient states she's working hard. . 05/22/18. Patient feeling good today. CT of the chest may showpulmonary emboli. COPD. Morbid obesity. Bipolar. Psoriasis. Coronary artery disease Hypothyroid. . 05/23/18. Trach extubated. Patient breathing good. V/Q scan negative for pulmonary embolism. Morbid obesity. Psoriasis. Coronary artery disease. Hypothyroid. Patient feel she is improving. . 05/24/18. Morbid obesity. Psoriasis. Disuse myopathy. Coronary artery disease. Bipolar. Hypothyroid. Current . Disuse myopathy. Psoriasis. Coronary artery disease. Bipolar. Hypothyroid. Nauseousness. To add Phenergan Clinical Quality Measures DVT/VTE Risk/Contraindication: Risk Factor Score Per Nursin RFS Level Per Nursing on Admit: 4+=Very High JOCELYNE MEI DO May 27, 2018 07:50
[2018-05-27] MEDS: MELOXICAM 7.5 MG (MOBIC) TABLET PO SCH (08:19)
[2018-05-27] MEDS: PROMETHAZINE 25 MG (PHENERGAN) TAB PO SCH ×3 (08:19→23:31)
[2018-05-27] MEDS: ARTIFICAL TEARS 0.4 ML UNIT DOSE (REFRESH PLUS) OU SCH ×3 (08:19→20:26)
[2018-05-27] MEDS: meTOprolol TARTRATE 50 MG (LOPRESSOR) TAB PO SCH ×2 (08:19→20:27)
[2018-05-27] MEDS: SUCRALFATE 1 GM (CARAFATE) TAB PO SCH ×3 (08:19→20:26)
[2018-05-27] MEDS: LORATADINE (CLARITIN) 10 MG TAB PO SCH (08:19)
[2018-05-27] MEDS: DOCUSATE SODIUM 100 MG (COLACE) CAP PO SCH ×2 (08:20→20:37)
[2018-05-27] MEDS: ENOXAPARIN 40 MG/0.4 ML (LOVENOX) SYR SC SCH (08:20)
[2018-05-27] MEDS: DICLOFENAC 1% GEL 100 GM (VOLTAREN) TUBE TOP SCH ×4 (08:22→20:37)
[2018-05-27] MEDS: ADVAIR HFA 115/21 MCG INHALER 8 GM IH SCH ×2 (08:22→19:51)
[2018-05-27] MEDS: TRIAMCINOLONE 0.5% CR (KENALOG) 15 GM TUBE TOP SCH ×3 (08:22→20:33)
[2018-05-27] MEDS: HYDROcodone/APAP 10 MG/325 MG (LORTAB) TAB PO PRN ×2 (10:30→20:27)
--- NOTE | 2018-05-27 10:57 | Physical Therapy Daily Note ---
PT Daily Note-Current Subjective Patient in wheelchair at bedside pre tx, agrees to PT, no complaints of pain. Appearance Patient in wheelchair at bedside post tx with nurse call, phone, tray, all needs met. Mental Status Patient Orientation: Person, Place, Situation Attachments: Oxygen 3L of O2 nasal canula Transfers Therapy Code Descriptions/Definitions Functional [place] Measure: 0=Not Assessed/NA 4=Minimal Assistance 1=Total Assistance 5=Supervision or Setup 2=Maximal Assistance 6=Modified [place] 3=Moderate Assistance 7=Complete [place] Therapy Quality Codes: 6 Independent with activity with or without an assistive device 5 Patient requires set up or clean up by helper. Patient completes activity by themselves 4 Supervision or touching assist (CGA). [place] provide cues , steadying assist 3 The helper provides less than half the effort to complete the activity 2 The helper provides more than half the effort to complete the activity 1 Dependent. The helper does all the effort to complete an activity 7 Patient refused to complete or attempt activity 9 The patient did not perform the activity before the current illness or injury 88 Not attempted due to Medical conditions or safety concerns Transfers (B, C, W/C) (FIM): 4 Sit to/from Stand: 4 Bed to/from Chair: 4 Min assist for sit to stand and stand pivot transfers. Cues for hand placement and positioning. Gait Training Gait (FIM): 1 Distance: 20'x3 Gait Level of Assist: 4 Gait Persons Needed: 1 Gait Assistive Device: FWW Wheelchair follow, unsteady at times but no LOB, patient states she has shaky legs and feels better with wheelchair behind her during ambulation. Wheelchair Training Does the Pt Use a Wheelchair?: Yes Wheelchair (FIM): 2 Distance: 100' Wheelchair Level of Assist: 4 Type of Wheelchair: Manual Min assist to help patient around corners and obstacles. Exercises Seated Therapy Exercises: Ankle pumps, Long arc quads, Hip flexion Seated Reps: 20 NuStep Minutes: 15 NuStep Workload: 4 Treatments transfers, ambulation, functional strengthening, wheelchair mobility Assessment Current Status: Fair Progress improving endurance PT Short Term Goals Short Term Goals Time Frame: May 24, 2018 Transfers (B,C,W/C) (FIM): 3 Gait (FIM): 1 Gait Distance Comment: 5' Gait Level of Assist: 4 Gait Assistive Device: Parallel Bars Wheelchair (FIM): 1 Wheelchair Distance: 20' PT Custodial Goals Respiratory Care Assistant Goals PT Custodial Goals Time Frame: Jun 07, 2018 Transfers (B,C,W/C) (FIM): 4 Sit to Lying (QC): 4 Lying-Sitting on Side/Bed(QC): 4 Sit to Stand (QC): 4 Rollin Roll Left to Right (QC): 4 Chair/Qwj-ur-Geyxf Xfer(QC): 3 Car Transfer (QC): 3 Gait (FIM): 1 Distance: 20' Walk 10 feet (QC): 4 Gait Level of Assist: 4 Gait Assistive Device: FWW Wheelchair (FIM): 2 Distance: 50' Wheelchair Level of Assist: 5 Wheel 50 feet with 2 turns (QC: 4 PT Plan Problem List Problem List: Activity Tolerance, Functional Strength, Safety, Balance, Gait, Transfer, Bed Mobility, ROM Treatment/Plan Treatment Plan: Continue Plan of Care Treatment Plan: Bed Mobility, Concurrent Therapy, Education, Functional Activity Fede, Functional Strength, Group Therapy, Gait, Safety, Therapeutic Exercise, Transfers Treatment Duration: Jun 07, 2018 Frequency: At least 5 of 7 days/Wk (IRF) Estimated Hrs Per Day: 1.5 hours per day Patient and/or Family Agrees t: Yes Safety Risks/Education Patient Education: Gait Training, Transfer Techniques, Correct Positioning, Safety Issues Teaching Recipient: Patient Teaching Methods: Demonstration, Discussion Response to Teaching: Reinforcement Needed Time/GCodes Time In: 1000 Time Out: 1100 Total Billed Treatment Time: 60 Total Billed Treatment 1 visit GT 20' EX 25' WCH 15' CLAU SALAZAR PT May 27, 2018 10:57
[2018-05-27] MEDS: SCOPOLAMINE 1.5 MG (TRANSDERM-SCOP) PATCH TD SCH (11:28)
[2018-05-27] MEDS: PATCH REMOVAL TP SCH (11:28)
--- NOTE | 2018-05-27 11:47 | NUR ---
PT EATING WELL, 92% MEALS, ALTHOUGH STILL NAUSEOUS. WT STABLE. INTAKE MEETING NEEDS AT THIS TIME. CONT SAME.
--- NOTE | 2018-05-27 11:54 | Occupational Ther Daily Note ---
OT Current Status-Daily Note Subjective Pt. does not report a pain level, but does grimace during treatment with movement. Appearance Pt. in bed. Has just finished breakfast. Agrees to work with OT. Mental Status/Objective Patient Orientation: Person, Place Therapy Code Descriptions/Definitions Functional [place] Measure: 0=Not Assessed/NA 4=Minimal Assistance 1=Total Assistance 5=Supervision or Setup 2=Maximal Assistance 6=Modified [place] 3=Moderate Assistance 7=Complete [place] Attachments: IV, Oxygen ADL-Treatment Therapy Code Descriptions/Definitions Functional [place] Measure: 0=Not Assessed/NA 4=Minimal Assistance 1=Total Assistance 5=Supervision or Setup 2=Maximal Assistance 6=Modified [place] 3=Moderate Assistance 7=Complete [place] Therapy Quality Codes: 6 Independent with activity with or without an assistive device 5 Patient requires set up or clean up by helper. Patient completes activity by themselves 4 Supervision or touching assist (CGA). [place] provide cues , steadying assist 3 The helper provides less than half the effort to complete the activity 2 The helper provides more than half the effort to complete the activity 1 Dependent. The helper does all the effort to complete an activity 7 Patient refused to complete or attempt activity 9 The patient did not perform the activity before the current illness or injury 88 Not attempted due to Medical conditions or safety concerns Eating (FIM): 5 (Set up) Eating (QC): 5 Grooming (FIM): 3 (Pt. requires max assist to brush hair, and set up assistance to brush her teeth. Pt. is unable to get the hairbrush up to her head.) Oral Hygiene (QC): 5 Bathing (FIM): 2 (Pt. is able to wash her face, and is able to attempt washing her chest and under her arms. Pt. has difficulty with this however, and OT washes more thoroughly for her. OT also washes her tabatha area for her and bilateral LE.) Shower/Bathe Self (QC): 2 Upper Body (FIM): 3 (OT provided a t-shirt for pt. Required mod assist to don shirt but decided it was too small. OT assisted pt. with doffing shirt.) Upper Body Dressing (QC): 3 Lower Body Dressing (FIM): 2 (Due to fatigue and time, pt. required max assistance to don brief and pants over feet, as well as slipper socks. Mod assist to stand and then is able to hold self up while OT assists with donning brief and pants over hips.) Lower Body Dressing (QC): 2 On/Off Footwear (QC): 1 Toileting (FIM): 2 (Pt. requires mod assist to stand from chair. Once she is up, she is able to stand with CGA while OT cleanses rear tabatha area for her.) Toileting Hygiene (QC): 2 Transfers (B, C, W/C) (FIM): 3 (Mod assist supine-sit. Mod assist sit-stand. Min assist to transfer from surface to surface.) Toilet/Commode Transfer (FIM): 3 Toilet Transfer (QC): 3 Shower Transfer(FIM): 3 (Pt. is able to transfer into shower with min assist, but after is fatigued and requires mod assist to stand.) Education OT Patient Education: Correct positioning, Modified ADL techniques, Progress toward Goal/Update tx plan, Purpose of tx/functional activities, Reviewed precautions, Rehab process, Transfer techniques Teaching Recipient: Patient Teaching Methods: Demonstration, Discussion Response to Teaching: Verbalize Understanding, Return Demonstration OT Short Term Goals Short Term Goals Time Frame: May 24, 2018 Eating(FIM): 5 Grooming(FIM): 5 Bathing(FIM): 3 Upper Body Dressing(FIM): 5 Lower Body Dressing(FIM): 2 Toileting(FIM): 1 (one person) Transfers (B,C,W/C) (FIM): 3 Toilet/Commode Transfer(FIM): 1 (one person) Additional Short Term Goals: 1-Demonstrate ADL Tasks, 2-Verbalize Understanding , 3-ImproveStrength/Fede 1=Demonstrate adherence to instructed precautions during ADL tasks. 2=Patient will verbalize/demonstrate understanding of assistive devices/ modifications for ADL. 3=Patient will improve strength/tolerance for activity to enable patient to perform ADL's. OT Long-Term Goals Four H Agent Goals Time Frame: Jun 07, 2018 Eating (FIM): 7 Eating (QC): 6 Groomin Oral Hygiene (QC): 6 Bathing(FIM): 5 Shower/Bathe Self (QC): 5 Upper Body Dressing(FIM): 6 Upper Body Dressing (QC): 6 Lower Body Dressing(FIM): 6 Lower Body Dressing (QC): 6 On/Off Footwear (QC): 6 Toileting(FIM): 6 Toileting Hygiene (QC): 6 Toilet/Commode Transfer(FIM): 6 Toilet/Commode Transfer (QC): 6 Shower Transfer(FIM): 6 Additional Goals: 1-Demonstrate ADL Tasks, 2-Verbalize Understanding, 3- ImproveStrength/Fede 1=Demonstrate adherence to instructed precautions during ADL tasks. 2=Patient will verbalize/demonstrate understanding of assistive devices/ modifications for ADL. 3=Patient will improve strength/tolerance for activity to enable patient to perform ADL's. OT Education/Plan Problem List/Assessment Assessment: Decreased Activ Tolerance, Decreased UE Strength, Dependent Transfers, Impaired Bed Mobility, Impaired Coordination, Impaired Funct Balance , Impaired I ADL's, Impaired Self-Care Skills, Restricted Funct UE ROM Discharge Recommendations Plan/Recommendations: Continue POC Therapy D/C Recommendations: 24 hr Supervision Treatment Plan/Plan of Care Treatment,Training & Education: Yes Patient would benefit from OT for education, treatment and training to promote independence in ADL's, mobility, safety and/or upper extremity function for ADL' s. Plan of Care: ADL Retraining, Caregiver Training, Functional Mobility, Group Exercise/Act as Ind (education, exercise, activity tolerance, funct mobility, funtional actiities), UE Funct Exercise/Act, UE Neuromus Re-Ed/Coord, W/C Management Training, OTHER (energy conservation education) Treatment Duration: Jun 07, 2018 Frequency: At least 5 of 7 days/Wk (IRF) Estimated Hrs Per Day: 1.5 hours per day Agreement: Yes Rehab Potential: Fair Time/GCodes Start Time: 08:15 Stop Time: 09:15 Total Time Billed (hr/min): 60 Billed Treatment Time 1, ADL x 4 LUIS VALLE OT May 27, 2018 11:54
--- NOTE | 2018-05-27 12:00 | NUR ---
Pt is Mosque. Pediatric Radiologist provided prayer and Communion.
--- NOTE | 2018-05-27 13:30 | NUR ---
DR. MEI NOTIFIED OF SELENA'S (PHARMACIST) SUGGESTION THAT NO ANTIBIOTIC IS NEEDED FOR PSEUDOMONAS SINCE COUNT IS DOWN FROM 40,000 TO 20,000 FROM SPECIMEN ON SUNDAY AND RESISTANT TO ANTIBIOTICS. HE AGREES WITH THIS AND DC'D UA ORDERED FOR TODAY.
--- NOTE | 2018-05-27 14:15 | NUR ---
STATES HAS BEEN UP IN CHAIR ALL DAY. ASSISTED BACK TO BED. STATES NAUSEA IS SOME BETTER.
--- NOTE | 2018-05-27 14:31 | Therapy Group Daily Note ---
Therapy Daily Group Note Patient Education Topic Other List Below (Hand washing) Exercises LE Seated Exercise, UE Exercise Other/Notes Patient participated in group therapy. Introductions, socialization, hand washing education, UE, LE seated exercises, memory activity and following direction activity. Patient was able to follow directions at 90% with minimal verbal cues. Start Time: 13:00 Stop Time: 14:05 Total Billed Treatment Time: 65 Total Billed Treatment 1-GRP MAGUE TAVAREZ May 27, 2018 14:31
--- NOTE | 2018-05-27 16:06 | Speech Therapy Daily Note ---
Speech Daily Progress Note Subjective Date Seen by Provider: May 27, 2018 Time Seen by Provider: 00:15 Patient is feeling better today she stated. She had been nauseated most of the weekend. Objective Patient completed simple conversational tasks with 90% accuracy and no cues today. Assessment Assessment Current Status: Good Progress Treatment Plan Continue Plan of Care Communication Comprehension: 3 Expression: 3 Social Cognition Social Interaction: 4 Problem Solvin Memory: 3 Speech Short Term Goals Short Term Goals Short Term Goals 1) Patient will recall information for safety awareness at 90% or greater with minimal cues. 2) Patient will recall new information from memory tasks at 90% accuracy or greater with minimal cues. 3) Patient will follow simple directions within her immediate living environment at 90% or greater with minimal cues. Speech Fci Goals Sand Operator Goals Patient will improve safety awareness and independence with 90% accuracy. Speech-Plan Patient/Family Goals Patient/Family Goals: Patient plans to return home when she is able to take care of herself. Treatment Plan Speech Therapy Treatment Plan: Continue Plan of Care Patient is gaining her strength back. Treatment Duration: May 31, 2018 Frequency: 5 times per week Estimated Hrs Per Day: .5 hour per day Rehab Potential: Fair Barriers to Learning: Patient tires easily. Pt/Family Agrees to Plan: Yes Safety Risks/Education Teaching Recipient: Patient Teaching Methods: Discussion Response to Teaching: Verbalize Understanding Education Topics Provided: Safety Time Speech Therapy Time In: 15:50 Speech Therapy Time Out: 16:05 Total Billed Time: 15 Billed Treatment Time 1[address] May 27, 2018 16:06
[2018-05-27 16:22] VITALS: BP 166/86
[2018-05-27] MEDS: CALCIUM CARBONATE 500 MG (TUMS) TAB.CHEW PO PRN (18:55)
--- NOTE | 2018-05-27 19:28 | NUR ---
bedside report received from XAVI BLEVINS, assume care of pt
--- NOTE | 2018-05-27 19:52 | PM&R Progress Note ---
Subjective This was a face to face visit with the patient. Date Seen by Provider: May 27, 2018 Time Seen by Provider: 18:30 Subjective/Events-last exam Patient was seen in her room this evening Patient Min assist for transfers Trach site healing well Objective Physician Exam Last Set of Vital Signs Vital Signs Date Time Temp Pulse Resp B/P (MAP) Pulse Ox O2 Delivery O2 Flow Rate FiO2 05/27/18 17:28 Nasal Cannula 3.00 05/27/18 16:22 97.9 85 14 166/86 (112) 99 Capillary Refill : I&O Intake and Output 05/27/18 00:00 Intake Total 1240 ml Balance 1240 ml Intake Oral 1240 ml # Voids 8 # Bowel Movements 4 General: Alert, Oriented X3, Cooperative, No Acute Distress HEENT: Atraumatic, PERRLA, EOMI, Mucous Memb Moist/[place] Neck: Other (Trach in Place) Lungs: Clear to Auscultation Heart: Regular Rate Abdomen: Normal Bowel Sounds, Soft, No Tenderness, Other (obese with peg site healing well) Extremities: Other (Trace ankle edema) Neuro: Other (Proximal weakness Both lower limbs Strength 3+/5 Both upper limbs ) Psych/Mental Status: Other (anxiety) Results Lab Data Laboratory Tests 05/27/18 09:20: Magnesium Level 2.0 Microbiology 05/25/18 Urine Culture - Preliminary, Resulted Pseudomonas aeruginosa Enterococcus faecium Assessment/Plan Assessment and Plan 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
--- NOTE | 2018-05-27 20:00 | NUR ---
assessments & interventions completed, see assessments & interventions
[2018-05-27] MEDS: ATORVASTATIN 40 MG (LIPITOR) TABLET PO SCH (20:26)
[2018-05-27] MEDS: OLANZapine 5 MG (ZyPREXA) TAB PO SCH (20:26)
[2018-05-27] MEDS: DONEPEZIL 10 MG (ARICEPT) TAB PO SCH (20:27)
--- NOTE | 2018-05-27 20:27 | NUR ---
c/o pain generalized, level 10/10 on numeric scale, lortab 10 2 tabs po given, refused Colace & Voltaren gel, takes meds well with pudding or applesauce
--- NOTE | 2018-05-27 21:15 | NUR ---
rates pain level 2/10 on numeric scale
[2018-05-28 05:05] VITALS: BP 128/63
[2018-05-28] MEDS: CATHETER FLUSH 10 ML SYR IV SCH ×3 (06:00→21:41)
[2018-05-28] MEDS: LACTOBACILLUS ACIDOPHILUS (PROBIOTIC) CAPSULE PO SCH ×3 (06:43→16:23)
[2018-05-28] MEDS: CYANOCOBALAMIN 1,000 MCG (VITAMIN B-12) TABLET PO SCH (06:43)
[2018-05-28] MEDS: MULTIVIT W/MINERALS TAB (THERAGRAN M) PO SCH (06:44)
[2018-05-28] MEDS: PANTOPRAZOLE 40 MG (PROTONIX) TAB PO SCH ×2 (06:46→20:12)
--- NOTE | 2018-05-28 07:09 | NUR ---
bedside report given to DENTON BLEVINS
[2018-05-28] MEDS: ADVAIR HFA 115/21 MCG INHALER 8 GM IH SCH ×2 (07:12→19:50)
--- NOTE | 2018-05-28 08:04 | Progress Note (SOAP) ---
Subjective Time Seen by a Provider: 08:02 Subjective/Events-last exam Patient in isolation. Patient voices no complaints. Patient having no trouble breathing. Patient feel she is improving Objective Exam Vital Signs Date Time Temp Pulse Resp B/P (MAP) Pulse Ox O2 Delivery O2 Flow Rate FiO2 05/28/18 07:12 92 Nasal Cannula 3.00 05/28/18 05:05 97.2 72 20 128/63 (84) 95 Nasal Cannula 3.00 05/27/18 20:00 Nasal Cannula 3.00 05/27/18 19:51 95 Nasal Cannula 3.00 05/27/18 17:28 Nasal Cannula 3.00 05/27/18 16:22 97.9 85 14 166/86 (112) 99 Nasal Cannula 3.00 05/27/18 08:22 95 Nasal Cannula 3.00 I & O 05/28/18 07:00 Intake Total 1800 ml Output Total 850 ml Balance 950 ml Capillary Refill : General Appearance: No Apparent Distress, WD/WN HEENT: Normal ENT Inspection Neck: Full Range of Motion, Normal Inspection Results Lab Laboratory Tests 05/27/18 09:20: Magnesium Level 2.0 Microbiology 05/25/18 Urine Culture - Preliminary, Resulted Pseudomonas aeruginosa Enterococcus faecium Assessment/Plan Assessment/Plan Assess & Plan/Chief Complaint Myopathy. COPD. Morbid obesity. Bipolar. Anxiety. Depression. Psoriasis. On ventilator. PEG tube removed. Coronary artery disease. GERD. Hypothyroid. Morbid obesity. . 05/21/18. Myopathy. COPD. Morbid obesity. Bipolar. Anxiety. Depression. Psoriasis. Coronary artery disease. Hypothyroid. Morbid obesity. Patient states she's working hard. . 05/22/18. Patient feeling good today. CT of the chest may showpulmonary emboli. COPD. Morbid obesity. Bipolar. Psoriasis. Coronary artery disease Hypothyroid. . 05/23/18. Trach extubated. Patient breathing good. V/Q scan negative for pulmonary embolism. Morbid obesity. Psoriasis. Coronary artery disease. Hypothyroid. Patient feel she is improving. . 05/24/18. Morbid obesity. Psoriasis. Disuse myopathy. Coronary artery disease. Bipolar. Hypothyroid. Current . Disuse myopathy. Psoriasis. Coronary artery disease. Bipolar. Hypothyroid. Nauseousness. To add Phenergan. . 05/28/18. Disuse myopathy. Psoriasis. Bipolar. Coronary artery disease. Hypothyroid. VRE of urine in isolation Clinical Quality Measures DVT/VTE Risk/Contraindication: Risk Factor Score Per Nursin RFS Level Per Nursing on Admit: 4+=Very High JOCELYNE MEI DO May 28, 2018 08:04
[2018-05-28] MEDS: SUCRALFATE 1 GM (CARAFATE) TAB PO SCH ×3 (08:24→20:10)
[2018-05-28] MEDS: PROMETHAZINE 25 MG (PHENERGAN) TAB PO SCH ×3 (08:24→23:32)
[2018-05-28] MEDS: ENOXAPARIN 40 MG/0.4 ML (LOVENOX) SYR SC SCH (08:24)
[2018-05-28] MEDS: MELOXICAM 7.5 MG (MOBIC) TABLET PO SCH (08:24)
[2018-05-28] MEDS: LORATADINE (CLARITIN) 10 MG TAB PO SCH (08:24)
[2018-05-28] MEDS: meTOprolol TARTRATE 50 MG (LOPRESSOR) TAB PO SCH ×2 (08:24→20:11)
[2018-05-28] MEDS: ARTIFICAL TEARS 0.4 ML UNIT DOSE (REFRESH PLUS) OU SCH ×3 (08:25→20:18)
[2018-05-28] MEDS: DOCUSATE SODIUM 100 MG (COLACE) CAP PO SCH ×2 (08:25→20:18)
[2018-05-28] MEDS: TRIAMCINOLONE 0.5% CR (KENALOG) 15 GM TUBE TOP SCH ×3 (08:27→20:18)
[2018-05-28] MEDS: DICLOFENAC 1% GEL 100 GM (VOLTAREN) TUBE TOP SCH ×4 (08:27→20:19)
--- NOTE | 2018-05-28 09:31 | PM&R Progress Note ---
Subjective This was a face to face visit with the patient. Date Seen by Provider: May 28, 2018 Time Seen by Provider: 07:50 Subjective/Events-last exam Patient was seen in her room this AM Patient MIn assist for transfers Objective Physician Exam Last Set of Vital Signs Vital Signs Date Time Temp Pulse Resp B/P (MAP) Pulse Ox O2 Delivery O2 Flow Rate FiO2 05/28/18 07:12 92 Nasal Cannula 3.00 05/28/18 05:05 97.2 72 20 128/63 (84) Capillary Refill : I&O Intake and Output 05/28/18 00:00 Intake Total 1700 ml Balance 1700 ml Intake Oral 1700 ml # Voids 7 # Bowel Movements 3 General: Alert, Oriented X3, Cooperative, No Acute Distress HEENT: Atraumatic, PERRLA, EOMI, Mucous Memb Moist/[place] Neck: Other (Trach in Place) Lungs: Clear to Auscultation Heart: Regular Rate Abdomen: Normal Bowel Sounds, Soft, No Tenderness, Other (obese with peg site healing well) Extremities: Other (Trace ankle edema) Neuro: Other (Proximal weakness Both lower limbs Strength 3+/5 Both upper limbs ) Psych/Mental Status: Other (anxiety) Results Lab Data Laboratory Tests 05/27/18 09:20: Magnesium Level 2.0 Microbiology 05/25/18 Urine Culture - Preliminary, Resulted Pseudomonas aeruginosa Enterococcus faecium Assessment/Plan Assessment and Plan 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
--- NOTE | 2018-05-28 10:33 | Occupational Ther Daily Note ---
OT Current Status-Daily Note Subjective Pt sitting in chair, agrees to treatment. Would like a shower this morning. Pt reports 5/10 pain in left shoulder Mental Status/Objective Therapy Code Descriptions/Definitions Functional [place] Measure: 0=Not Assessed/NA 4=Minimal Assistance 1=Total Assistance 5=Supervision or Setup 2=Maximal Assistance 6=Modified [place] 3=Moderate Assistance 7=Complete [place] Attachments: Oxygen ADL-Treatment Pt sit to stand from recliner chair with minimal assistance. Transfer to [facility] with min assist using FWW. Pt required assist to complete toileting hygiene. Gait to restroom with FWW. Transfer to walk in shower with minimal assistance and cues for safety. Assist required to doff socks. Doffed gown with SBA. Seated bathing completed using hand held shower. Pt required assist to wash hair. Pt attempted to wash bilateral arms and chest, but was assisted in order to complete thoroughly. Assist for LE bathing. Pt required mod assist to stand from shower bench and transfer to w/c. UE dressing completed with mod assist. Pt requires assist to laborer pullet farm head and pull shirt down in back. Assist to thread LE into pant legs. Pt able to partially assist in pulling pant up, but unable to complete task without assistance. Total assist to don socks. Pt completed grooming tasks seated at sink. Pt brushed teeth with set up. Max assist to comb hair. Pt requires increased time to complete ADL tasks. Occasional rest breaks during session. Pt sitting in w/c with needs met after session. Therapy Code Descriptions/Definitions Functional [place] Measure: 0=Not Assessed/NA 4=Minimal Assistance 1=Total Assistance 5=Supervision or Setup 2=Maximal Assistance 6=Modified [place] 3=Moderate Assistance 7=Complete [place] Therapy Quality Codes: 6 Independent with activity with or without an assistive device 5 Patient requires set up or clean up by helper. Patient completes activity by themselves 4 Supervision or touching assist (CGA). [place] provide cues , steadying assist 3 The helper provides less than half the effort to complete the activity 2 The helper provides more than half the effort to complete the activity 1 Dependent. The helper does all the effort to complete an activity 7 Patient refused to complete or attempt activity 9 The patient did not perform the activity before the current illness or injury 88 Not attempted due to Medical conditions or safety concerns Grooming (FIM): 3 Bathing (FIM): 2 Shower/Bathe Self (QC): 2 Upper Body (FIM): 3 Upper Body Dressing (QC): 3 Lower Body Dressing (FIM): 2 On/Off Footwear (QC): 1 Toileting (FIM): 1 Toileting Hygiene (QC): 1 Toilet/Commode Transfer (FIM): 4 Toilet Transfer (QC): 3 Shower Transfer(FIM): 3 OT Short Term Goals Short Term Goals Time Frame: May 24, 2018 Eating(FIM): 5 Grooming(FIM): 5 Bathing(FIM): 3 Upper Body Dressing(FIM): 5 Lower Body Dressing(FIM): 2 Toileting(FIM): 1 (one person) Transfers (B,C,W/C) (FIM): 3 Toilet/Commode Transfer(FIM): 1 (one person) Additional Short Term Goals: 1-Demonstrate ADL Tasks, 2-Verbalize Understanding , 3-ImproveStrength/Fede 1=Demonstrate adherence to instructed precautions during ADL tasks. 2=Patient will verbalize/demonstrate understanding of assistive devices/ modifications for ADL. 3=Patient will improve strength/tolerance for activity to enable patient to perform ADL's. OT Intermediate Goals Chain Saw Mechanic Goals Time Frame: Jun 07, 2018 Eating (FIM): 7 Eating (QC): 6 Groomin Oral Hygiene (QC): 6 Bathing(FIM): 5 Shower/Bathe Self (QC): 5 Upper Body Dressing(FIM): 6 Upper Body Dressing (QC): 6 Lower Body Dressing(FIM): 6 Lower Body Dressing (QC): 6 On/Off Footwear (QC): 6 Toileting(FIM): 6 Toileting Hygiene (QC): 6 Toilet/Commode Transfer(FIM): 6 Toilet/Commode Transfer (QC): 6 Shower Transfer(FIM): 6 Additional Goals: 1-Demonstrate ADL Tasks, 2-Verbalize Understanding, 3- ImproveStrength/Fede 1=Demonstrate adherence to instructed precautions during ADL tasks. 2=Patient will verbalize/demonstrate understanding of assistive devices/ modifications for ADL. 3=Patient will improve strength/tolerance for activity to enable patient to perform ADL's. OT Education/Plan Discharge Recommendations Plan/Recommendations: Continue POC Treatment Plan/Plan of Care Patient would benefit from OT for education, treatment and training to promote independence in ADL's, mobility, safety and/or upper extremity function for ADL' s. Plan of Care: ADL Retraining, Caregiver Training, Functional Mobility, Group Exercise/Act as Ind (education, exercise, activity tolerance, funct mobility, funtional actiities), UE Funct Exercise/Act, UE Neuromus Re-Ed/Coord, W/C Management Training, OTHER (energy conservation education) Treatment Duration: Jun 07, 2018 Frequency: At least 5 of 7 days/Wk (IRF) Estimated Hrs Per Day: 1.5 hours per day Agreement: Yes Rehab Potential: Fair Time/GCodes Start Time: 09:00 Stop Time: 10:15 Total Time Billed (hr/min): 75 Billed Treatment Time 1 visit, ADLx5(75minutes) ALIYAH PORTILLO OT May 28, 2018 10:33
[2018-05-28] MEDS: HYDROcodone/APAP 10 MG/325 MG (LORTAB) TAB PO PRN ×2 (11:42→20:11)
--- NOTE | 2018-05-28 11:57 | Physical Therapy Daily Note ---
PT Daily Note-Current Subjective Patient in wheelchair at bedside pre tx, agrees to PT, no complaints of pain. Appearance Patient in wheelchair at bedside post tx, has nurse call, phone, tray, all needs met. Mental Status Patient Orientation: Normal For Age Attachments: Oxygen 3L of O2 nasal canula Transfers Therapy Code Descriptions/Definitions Functional [place] Measure: 0=Not Assessed/NA 4=Minimal Assistance 1=Total Assistance 5=Supervision or Setup 2=Maximal Assistance 6=Modified [place] 3=Moderate Assistance 7=Complete [place] Therapy Quality Codes: 6 Independent with activity with or without an assistive device 5 Patient requires set up or clean up by helper. Patient completes activity by themselves 4 Supervision or touching assist (CGA). [place] provide cues , steadying assist 3 The helper provides less than half the effort to complete the activity 2 The helper provides more than half the effort to complete the activity 1 Dependent. The helper does all the effort to complete an activity 7 Patient refused to complete or attempt activity 9 The patient did not perform the activity before the current illness or injury 88 Not attempted due to Medical conditions or safety concerns Transfers (B, C, W/C) (FIM): 4 Sit to/from Stand: 4 Bed to/from Chair: 4 Min assist for sit to stand especially from lower surfaces, cues for hand placement Gait Training Gait (FIM): 1 Distance: 20'x4 Gait Level of Assist: 4 Gait Persons Needed: 1 Gait Assistive Device: FWW Patient can ambulate 20' with a rolling walker with CGA, patient fatigues quickly and gets SOB, Wheelchair Training Does the Pt Use a Wheelchair?: Yes Wheelchair (FIM): 5 Distance: 150' Wheelchair Level of Assist: 5 Type of Wheelchair: Manual Exercises Standing: Heel/toe raises, Mini squats Standing Reps: 15 LAQ alternating for 5 min with 2# ankle weights NuStep Minutes: 10 NuStep Workload: 4 Treatments transfers, ambulation, functional strengthening Assessment Current Status: Fair Progress improving strength and endurance PT Short Term Goals Short Term Goals Time Frame: May 24, 2018 Transfers (B,C,W/C) (FIM): 3 Gait (FIM): 1 Gait Distance Comment: 5' Gait Level of Assist: 4 Gait Assistive Device: Parallel Bars Wheelchair (FIM): 1 Wheelchair Distance: 100' PT Pharmacometrician Goals Half-Way Goals PT Pharmacometrician Goals Time Frame: Jun 07, 2018 Transfers (B,C,W/C) (FIM): 4 Sit to Lying (QC): 4 Lying-Sitting on Side/Bed(QC): 4 Sit to Stand (QC): 4 Rollin Roll Left to Right (QC): 4 Chair/Ezi-nf-Wuidv Xfer(QC): 3 Car Transfer (QC): 3 Gait (FIM): 1 Distance: 20' Walk 10 feet (QC): 4 Gait Level of Assist: 4 Gait Assistive Device: FWW Wheelchair (FIM): 2 Distance: 50' Wheelchair Level of Assist: 5 Wheel 50 feet with 2 turns (QC: 4 PT Plan Problem List Problem List: Activity Tolerance, Functional Strength, Safety, Balance, Gait, Transfer, Bed Mobility, ROM Treatment/Plan Treatment Plan: Continue Plan of Care Treatment Plan: Bed Mobility, Concurrent Therapy, Education, Functional Activity Fede, Functional Strength, Group Therapy, Gait, Safety, Therapeutic Exercise, Transfers Treatment Duration: Jun 07, 2018 Frequency: At least 5 of 7 days/Wk (IRF) Estimated Hrs Per Day: 1.5 hours per day Patient and/or Family Agrees t: Yes Safety Risks/Education Patient Education: Gait Training, Transfer Techniques, Correct Positioning, W/ C Management, Safety Issues Teaching Recipient: Patient Teaching Methods: Demonstration, Discussion Response to Teaching: Reinforcement Needed Time/GCodes Time In: 1100 Time Out: 1200 Total Billed Treatment Time: 60 Total Billed Treatment 1 visit [facility] 10' GT 30' EX 20' CLAU SALAZAR PT May 28, 2018 11:57
--- NOTE | 2018-05-28 13:58 | Physical Therapy Daily Note ---
PT Daily Note-Current Subjective Patient in wheelchair at bedside pre tx, agrees to PT, no complaints of pain Appearance Patient in wheelchair at bedside post tx, has nurse call, phone, tray, all needs met. Mental Status Patient Orientation: Normal For Age Attachments: Oxygen Transfers Therapy Code Descriptions/Definitions Functional [place] Measure: 0=Not Assessed/NA 4=Minimal Assistance 1=Total Assistance 5=Supervision or Setup 2=Maximal Assistance 6=Modified [place] 3=Moderate Assistance 7=Complete [place] Therapy Quality Codes: 6 Independent with activity with or without an assistive device 5 Patient requires set up or clean up by helper. Patient completes activity by themselves 4 Supervision or touching assist (CGA). [place] provide cues , steadying assist 3 The helper provides less than half the effort to complete the activity 2 The helper provides more than half the effort to complete the activity 1 Dependent. The helper does all the effort to complete an activity 7 Patient refused to complete or attempt activity 9 The patient did not perform the activity before the current illness or injury 88 Not attempted due to Medical conditions or safety concerns Wheelchair Training Wheelchair (FIM): 4 Distance: 150'x2 Type of Wheelchair: Manual occasional assist around doorways or obstacles Exercises Seated Therapy Exercises: Ankle pumps, Hip flexion, Hip abd/add (abd with RTB and add with pillow) Seated Reps: 15 LAQ alternating for 5 min Treatments wheelchair mobility, functional strengthening Assessment Current Status: Fair Progress improving endurance PT Short Term Goals Short Term Goals Time Frame: May 24, 2018 Transfers (B,C,W/C) (FIM): 3 Gait (FIM): 1 Gait Distance Comment: 5' Gait Level of Assist: 4 Gait Assistive Device: Parallel Bars Wheelchair (FIM): 1 Wheelchair Distance: 150' PT Halfway Goals Halfway Goals PT Corrosion Engineer Goals Time Frame: Jun 07, 2018 Transfers (B,C,W/C) (FIM): 4 Sit to Lying (QC): 4 Lying-Sitting on Side/Bed(QC): 4 Sit to Stand (QC): 4 Rollin Roll Left to Right (QC): 4 Chair/Ykv-ji-Iagyd Xfer(QC): 3 Car Transfer (QC): 3 Gait (FIM): 1 Distance: 20' Walk 10 feet (QC): 4 Gait Level of Assist: 4 Gait Assistive Device: FWW Wheelchair (FIM): 2 Distance: 50' Wheelchair Level of Assist: 5 Wheel 50 feet with 2 turns (QC: 4 PT Plan Problem List Problem List: Activity Tolerance, Functional Strength, Safety, Balance, Gait, Transfer, Bed Mobility, ROM Treatment/Plan Treatment Plan: Continue Plan of Care Treatment Plan: Bed Mobility, Concurrent Therapy, Education, Functional Activity Fede, Functional Strength, Group Therapy, Gait, Safety, Therapeutic Exercise, Transfers Treatment Duration: Jun 07, 2018 Frequency: At least 5 of 7 days/Wk (IRF) Estimated Hrs Per Day: 1.5 hours per day Patient and/or Family Agrees t: Yes Safety Risks/Education Patient Education: Correct Positioning, W/C Management, Safety Issues Teaching Recipient: Patient Teaching Methods: Demonstration, Discussion Response to Teaching: Reinforcement Needed Time/GCodes Time In: 1330 Time Out: 1400 Total Billed Treatment Time: 30 Total Billed Treatment 1 visit [facility] 15' EX 15' CLAU SALAZAR PT May 28, 2018 13:58
--- NOTE | 2018-05-28 14:54 | Speech Therapy Daily Note ---
Speech Daily Progress Note Subjective Date Seen by Provider: May 28, 2018 Time Seen by Provider: 00:30 Patient states she is feeling much better today and has no nausea. Objective Patient completed memory tasks with 90% accuracy given minimal verbal cues. Treatment Plan Continue Plan of Care Communication Comprehension: 3 Expression: 3 Social Cognition Social Interaction: 4 Problem Solvin Memory: 3 Speech Short Term Goals Short Term Goals Short Term Goals 1) Patient will recall information for safety awareness at 90% or greater with minimal cues. 2) Patient will recall new information from memory tasks at 90% accuracy or greater with minimal cues. 3) Patient will follow simple directions within her immediate living environment at 90% or greater with minimal cues. Speech Halfway Goals Feed Project Engineer Goals Patient will improve safety awareness and independence with 90% accuracy. Speech-Plan Patient/Family Goals Patient/Family Goals: Patient plans to return home as soon as possible when she is able to be independent. Treatment Plan Speech Therapy Treatment Plan: Continue Plan of Care Patient is progressing well with skilled ST goals. Treatment Duration: May 31, 2018 Frequency: 5 times per week Estimated Hrs Per Day: .5 hour per day Rehab Potential: Fair Barriers to Learning: Patient is weak. Pt/Family Agrees to Plan: Yes Safety Risks/Education Teaching Recipient: Patient Teaching Methods: Discussion Response to Teaching: Verbalize Understanding Education Topics Provided: Safety Time Speech Therapy Time In: 14:00 Speech Therapy Time Out: 14:30 Total Billed Time: 30 Billed Treatment Time 1[address] May 28, 2018 14:54
--- NOTE | 2018-05-28 15:32 | Diagnostic Imaging Report ---
INDICATION: Followup pneumonia. COMPARISON: CT of the chest dated 05/21/2018. FINDINGS: Frontal and lateral radiographic views of the chest were obtained and continue to show asymmetric elevation of the lateral margins of the left hemidiaphragm. There is also blunting of the bilateral posterior costophrenic angles. There is no new focal consolidation. No pneumothorax is seen on either side. Cardiac silhouette and pulmonary vasculature is stable. Bony structures show no new acute abnormalities. IMPRESSION: 1. Stable exam of the chest as described above. Dictated by: Dictated on workstation # [id number]
--- NOTE | 2018-05-28 16:16 | NUR ---
Chest XRAY results faxed to Dr. Ward's office. Spoke to statement request clerk. States that she will give results to Dr. Ward.
[2018-05-28 16:33] VITALS: BP 154/89
--- NOTE | 2018-05-28 19:26 | NUR ---
report received from JARRED BLEVINS, assume care of pt
--- NOTE | 2018-05-28 20:00 | NUR ---
assessments & interventions completed, see assessments & interventions, c/o generalized pain
[2018-05-28] MEDS: OLANZapine 5 MG (ZyPREXA) TAB PO SCH (20:10)
[2018-05-28] MEDS: DONEPEZIL 10 MG (ARICEPT) TAB PO SCH (20:10)
[2018-05-28] MEDS: ATORVASTATIN 40 MG (LIPITOR) TABLET PO SCH (20:10)
--- NOTE | 2018-05-28 20:11 | NUR ---
pain level 10/10 on numeric scale, lortab 10 2 tabs po given, refused colace, refresh tears, & Kenalog cream
--- NOTE | 2018-05-28 21:10 | NUR ---
pain level 2/10 on numeric scale
[2018-05-29 06:00] VITALS: BP 158/87
[2018-05-29 06:00] LABS: HEMOGLOBIN 12.3 G/DL (11.5-16.0); MEAN PLATELET VOLUME 10.2 FL (7.4-10.4); RED BLOOD COUNT 4.4 10^6/uL (4.35-5.85); RED CELL DISTRIBUTION WIDTH 18.3 % (10.0-14.5); WHITE BLOOD COUNT 10.3 10^3/uL (4.3-11.0)
[2018-05-29] MEDS: CATHETER FLUSH 10 ML SYR IV SCH ×3 (06:00→22:00)
[2018-05-29] MEDS: MULTIVIT W/MINERALS TAB (THERAGRAN M) PO SCH (06:30)
[2018-05-29] MEDS: LACTOBACILLUS ACIDOPHILUS (PROBIOTIC) CAPSULE PO SCH ×3 (06:30→17:37)
[2018-05-29] MEDS: PANTOPRAZOLE 40 MG (PROTONIX) TAB PO SCH ×2 (06:30→20:24)
[2018-05-29] MEDS: CYANOCOBALAMIN 1,000 MCG (VITAMIN B-12) TABLET PO SCH (06:30)
[2018-05-29] MEDS: ADVAIR HFA 115/21 MCG INHALER 8 GM IH SCH ×2 (07:19→19:30)
--- NOTE | 2018-05-29 07:34 | NUR ---
report given to PUJA BLEVINS
--- NOTE | 2018-05-29 07:56 | Progress Note (SOAP) ---
Subjective Time Seen by a Provider: 07:55 Subjective/Events-last exam Patient feeling good this morning. Patient's chart stable. Objective Exam Vital Signs Date Time Temp Pulse Resp B/P (MAP) Pulse Ox O2 Delivery O2 Flow Rate FiO2 05/29/18 07:21 Nasal Cannula 3.00 05/29/18 06:00 97.4 73 18 158/87 (110) 94 Nasal Cannula 3.00 05/28/18 20:00 Nasal Cannula 3.00 05/28/18 19:50 95 Nasal Cannula 3.00 05/28/18 16:33 96.9 76 16 154/89 (110) 98 Nasal Cannula 2.00 05/28/18 08:59 Nasal Cannula 3.00 I & O 05/29/18 07:00 Intake Total 1650 ml Output Total 1975 ml Balance -325 ml Capillary Refill : General Appearance: No Apparent Distress, WD/WN HEENT: Normal ENT Inspection Results Lab Laboratory Tests 05/29/18 05:50: White Blood Count 10.3, Red Blood Count 4.40, Hemoglobin 12.3, Hematocrit 41, Mean Corpuscular Volume 93, Mean Corpuscular Hemoglobin 28, Mean Corpuscular Hemoglobin Concent 30L, Red Cell Distribution Width 18.3H, Platelet Count 315, Mean Platelet Volume 10.2 Microbiology 05/25/18 Urine Culture - Final, Complete Pseudomonas aeruginosa Enterococcus faecium Assessment/Plan Assessment/Plan Assess & Plan/Chief Complaint Myopathy. COPD. Morbid obesity. Bipolar. Anxiety. Depression. Psoriasis. On ventilator. PEG tube removed. Coronary artery disease. GERD. Hypothyroid. Morbid obesity. . 05/21/18. Myopathy. COPD. Morbid obesity. Bipolar. Anxiety. Depression. Psoriasis. Coronary artery disease. Hypothyroid. Morbid obesity. Patient states she's working hard. . 05/22/18. Patient feeling good today. CT of the chest may showpulmonary emboli. COPD. Morbid obesity. Bipolar. Psoriasis. Coronary artery disease Hypothyroid. . 05/23/18. Trach extubated. Patient breathing good. V/Q scan negative for pulmonary embolism. Morbid obesity. Psoriasis. Coronary artery disease. Hypothyroid. Patient feel she is improving. . 05/24/18. Morbid obesity. Psoriasis. Disuse myopathy. Coronary artery disease. Bipolar. Hypothyroid. Current . Disuse myopathy. Psoriasis. Coronary artery disease. Bipolar. Hypothyroid. Nauseousness. To add Phenergan. . 05/28/18. Disuse myopathy. Psoriasis. Bipolar. Coronary artery disease. Hypothyroid. 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 . 05/29/18. Disuse myopathy psoriasis. Bipolar. CAD. Hypothyroid. Patient feeling good. Clinical Quality Measures DVT/VTE Risk/Contraindication: Risk Factor Score Per Nursin RFS Level Per Nursing on Admit: 4+=Very High JOCELYNE MEI DO May 29, 2018 07:56
[2018-05-29] MEDS: HYDROcodone/APAP 10 MG/325 MG (LORTAB) TAB PO PRN ×2 (09:07→17:38)
[2018-05-29] MEDS: PROMETHAZINE 25 MG (PHENERGAN) TAB PO SCH ×2 (09:08→17:42)
[2018-05-29] MEDS: LORATADINE (CLARITIN) 10 MG TAB PO SCH (09:08)
[2018-05-29] MEDS: DOCUSATE SODIUM 100 MG (COLACE) CAP PO SCH ×2 (09:08→20:33)
[2018-05-29] MEDS: meTOprolol TARTRATE 50 MG (LOPRESSOR) TAB PO SCH ×2 (09:08→20:24)
[2018-05-29] MEDS: MELOXICAM 7.5 MG (MOBIC) TABLET PO SCH (09:08)
[2018-05-29] MEDS: SUCRALFATE 1 GM (CARAFATE) TAB PO SCH ×3 (09:08→20:25)
[2018-05-29] MEDS: TRIAMCINOLONE 0.5% CR (KENALOG) 15 GM TUBE TOP SCH ×3 (09:09→20:34)
[2018-05-29] MEDS: ENOXAPARIN 40 MG/0.4 ML (LOVENOX) SYR SC SCH (09:09)
[2018-05-29] MEDS: DICLOFENAC 1% GEL 100 GM (VOLTAREN) TUBE TOP SCH ×4 (09:10→20:29)
[2018-05-29] MEDS: ARTIFICAL TEARS 0.4 ML UNIT DOSE (REFRESH PLUS) OU SCH ×3 (09:21→20:24)
--- NOTE | 2018-05-29 10:03 | Physical Therapy Daily Note ---
PT Daily Note-Current Subjective Patient on commode for BM pre tx, agrees to PT. Has unrated pain in shoulders, nurse aware and she gets pain meds. When patient is done, nurse cleans patient while PT assists with standing. Patient also needed dressed and PT assisted her with dressing with nurse in the room. Appearance Patient in wheelchair at bedside post tx with nurse call, phone, tray, all needs met. Mental Status Patient Orientation: Person, Place, Situation Attachments: Oxygen Transfers Therapy Code Descriptions/Definitions Functional [place] Measure: 0=Not Assessed/NA 4=Minimal Assistance 1=Total Assistance 5=Supervision or Setup 2=Maximal Assistance 6=Modified [place] 3=Moderate Assistance 7=Complete [place] Therapy Quality Codes: 6 Independent with activity with or without an assistive device 5 Patient requires set up or clean up by helper. Patient completes activity by themselves 4 Supervision or touching assist (CGA). [place] provide cues , steadying assist 3 The helper provides less than half the effort to complete the activity 2 The helper provides more than half the effort to complete the activity 1 Dependent. The helper does all the effort to complete an activity 7 Patient refused to complete or attempt activity 9 The patient did not perform the activity before the current illness or injury 88 Not attempted due to Medical conditions or safety concerns Transfers (B, C, W/C) (FIM): 4 Sit to/from Stand: 4 Bed to/from Chair: 4 CGA, patient did not need assist to stand this morning Gait Training Gait (FIM): 1 Distance: 40'x3 Gait Level of Assist: 4 Gait Persons Needed: 1 Gait Assistive Device: FWW CGA, unsteady at time but no LOB, patient did state that her knees felt like they were going to buckle at one point right before sitting but they did not Wheelchair Training Does the Pt Use a Wheelchair?: Yes Wheelchair (FIM): 4 Distance: 150'x2 Wheelchair Level of Assist: 4 Type of Wheelchair: Manual Exercises Seated Therapy Exercises: Ankle pumps, Hip flexion Seated Reps: 20 LAQ alternating for 5 min with 2# ankle weights Treatments transfers, ambulation, functional strengthening, toileting and dressing Assessment Current Status: Fair Progress improved ambulation PT Short Term Goals Short Term Goals Time Frame: May 24, 2018 Transfers (B,C,W/C) (FIM): 3 Gait (FIM): 1 Gait Distance Comment: 5' Gait Level of Assist: 4 Gait Assistive Device: Parallel Bars Wheelchair (FIM): 1 Wheelchair Distance: 150'x2 PT Custodial Goals Custodial Goals PT Pipe Fitter Gas Pipe Goals Time Frame: Jun 07, 2018 Transfers (B,C,W/C) (FIM): 4 Sit to Lying (QC): 4 Lying-Sitting on Side/Bed(QC): 4 Sit to Stand (QC): 4 Rollin Roll Left to Right (QC): 4 Chair/Shs-yv-Oznfi Xfer(QC): 3 Car Transfer (QC): 3 Gait (FIM): 1 Distance: 20' Walk 10 feet (QC): 4 Gait Level of Assist: 4 Gait Assistive Device: FWW Wheelchair (FIM): 2 Distance: 50' Wheelchair Level of Assist: 5 Wheel 50 feet with 2 turns (QC: 4 PT Plan Problem List Problem List: Activity Tolerance, Functional Strength, Safety, Balance, Gait, Transfer, Bed Mobility, ROM Treatment/Plan Treatment Plan: Continue Plan of Care Treatment Plan: Bed Mobility, Concurrent Therapy, Education, Functional Activity Fede, Functional Strength, Group Therapy, Gait, Safety, Therapeutic Exercise, Transfers Treatment Duration: Jun 07, 2018 Frequency: At least 5 of 7 days/Wk (IRF) Estimated Hrs Per Day: 1.5 hours per day Patient and/or Family Agrees t: Yes Safety Risks/Education Patient Education: Gait Training, Transfer Techniques, Correct Positioning, W/ C Management, Safety Issues Teaching Recipient: Patient Teaching Methods: Demonstration, Discussion Response to Teaching: Reinforcement Needed Time/GCodes Time In: 0900 Time Out: 1000 Total Billed Treatment Time: 60 Total Billed Treatment 1 visit [facility] 30' EX 15' FA 15' CLAU SALAZAR PT May 29, 2018 10:03
--- NOTE | 2018-05-29 12:49 | Occupational Ther Daily Note ---
OT Current Status-Daily Note Subjective Pt sitting in w/c, agrees to treatment Pt reports knee and shoulder pain. Mental Status/Objective Therapy Code Descriptions/Definitions Functional [place] Measure: 0=Not Assessed/NA 4=Minimal Assistance 1=Total Assistance 5=Supervision or Setup 2=Maximal Assistance 6=Modified [place] 3=Moderate Assistance 7=Complete [place] Attachments: Oxygen ADL-Treatment Pt requesting shower today. To restroom via w/c. Transfer w/c to shower bench with minimal assistance using grab bars. Pt required assist to doff clothing. Assist to turn water on. Pt attempted to assist with washing hair. Was able to wash front part of hair, but required assist for back. Pt washed bilateral UE, chest, abdomen, and bilateral upper legs. Required assist for lower legs and buttocks. Pt transferred out of shower to w/c with mod assist secondary to fatigue. Pt attempted to thread bilateral UE into sleeves. Required assist to fur puller head and pull down in back. Assist required to thread bilateral LE into Depends and pant legs. Stood with minimal assistance. Pt required assist to complete pant hike. Total assist to don socks. Grooming tasks completed seated at sink. Pt brushed teeth after set up. Max assist required to brush hair. Pt sitting in w/c with needs met after session. Therapy Code Descriptions/Definitions Functional [place] Measure: 0=Not Assessed/NA 4=Minimal Assistance 1=Total Assistance 5=Supervision or Setup 2=Maximal Assistance 6=Modified [place] 3=Moderate Assistance 7=Complete [place] Therapy Quality Codes: 6 Independent with activity with or without an assistive device 5 Patient requires set up or clean up by helper. Patient completes activity by themselves 4 Supervision or touching assist (CGA). [place] provide cues , steadying assist 3 The helper provides less than half the effort to complete the activity 2 The helper provides more than half the effort to complete the activity 1 Dependent. The helper does all the effort to complete an activity 7 Patient refused to complete or attempt activity 9 The patient did not perform the activity before the current illness or injury 88 Not attempted due to Medical conditions or safety concerns Grooming (FIM): 3 Bathing (FIM): 3 Upper Body (FIM): 2 Lower Body Dressing (FIM): 2 On/Off Footwear (QC): 1 Shower Transfer(FIM): 3 OT Short Term Goals Short Term Goals Time Frame: May 24, 2018 Eating(FIM): 5 Grooming(FIM): 5 Bathing(FIM): 3 Upper Body Dressing(FIM): 5 Lower Body Dressing(FIM): 2 Toileting(FIM): 1 (one person) Transfers (B,C,W/C) (FIM): 3 Toilet/Commode Transfer(FIM): 1 (one person) Additional Short Term Goals: 1-Demonstrate ADL Tasks, 2-Verbalize Understanding , 3-ImproveStrength/Fede 1=Demonstrate adherence to instructed precautions during ADL tasks. 2=Patient will verbalize/demonstrate understanding of assistive devices/ modifications for ADL. 3=Patient will improve strength/tolerance for activity to enable patient to perform ADL's. OT Manager Route Goals Retirement Goals Time Frame: Jun 07, 2018 Eating (FIM): 7 Eating (QC): 6 Groomin Oral Hygiene (QC): 6 Bathing(FIM): 5 Shower/Bathe Self (QC): 5 Upper Body Dressing(FIM): 6 Upper Body Dressing (QC): 6 Lower Body Dressing(FIM): 6 Lower Body Dressing (QC): 6 On/Off Footwear (QC): 6 Toileting(FIM): 6 Toileting Hygiene (QC): 6 Toilet/Commode Transfer(FIM): 6 Toilet/Commode Transfer (QC): 6 Shower Transfer(FIM): 6 Additional Goals: 1-Demonstrate ADL Tasks, 2-Verbalize Understanding, 3- ImproveStrength/Fede 1=Demonstrate adherence to instructed precautions during ADL tasks. 2=Patient will verbalize/demonstrate understanding of assistive devices/ modifications for ADL. 3=Patient will improve strength/tolerance for activity to enable patient to perform ADL's. OT Education/Plan Discharge Recommendations Plan/Recommendations: Continue POC Treatment Plan/Plan of Care Patient would benefit from OT for education, treatment and training to promote independence in ADL's, mobility, safety and/or upper extremity function for ADL' s. Plan of Care: ADL Retraining, Caregiver Training, Functional Mobility, Group Exercise/Act as Ind (education, exercise, activity tolerance, funct mobility, funtional actiities), UE Funct Exercise/Act, UE Neuromus Re-Ed/Coord, W/C Management Training, OTHER (energy conservation education) Treatment Duration: Jun 07, 2018 Frequency: At least 5 of 7 days/Wk (IRF) Estimated Hrs Per Day: 1.5 hours per day Agreement: Yes Rehab Potential: Fair Time/GCodes Start Time: 10:00 Stop Time: 10:45 Total Time Billed (hr/min): 45 Billed Treatment Time 1 visit, ADLx3(45minutes) ALIYAH PORTILLO OT May 29, 2018 12:49
--- NOTE | 2018-05-29 14:28 | NUR ---
provided prayer and Communion.
--- NOTE | 2018-05-29 14:52 | Therapy Group Daily Note ---
Therapy Daily Group Note Patient Education Topic Home Safety Exercises LE Seated Exercise, UE Exercise Other/Notes Pt propelled [facility] to PT/OT Group. Group consisted of Introduction (Name, Where you were born & Favorite [employer] Movie), Socialization, Patient led Seated UE & LE Exercises, ARU Description & Explanation as well as Home Safety. Pt passively participated in Group and only responded when specifically asked questions directed at her. Pt returns to room to rest sitting in [facility] at end of tx with all needs met. Start Time: 13:00 Stop Time: 14:10 Total Billed Treatment Time: 70 Total Billed Treatment 1, GRP VÍCTOR PALOMARES PANEL COVERER May 29, 2018 14:52
--- NOTE | 2018-05-29 15:24 | Speech Therapy Daily Note ---
Speech Daily Progress Note Subjective Date Seen by Provider: May 29, 2018 Time Seen by Provider: 00:30 Patient was sitting up in her wheelchair. She stated she thinks she is getting a little bit stronger. Assessment Assessment Current Status: Good Progress Treatment Plan Continue Plan of Care Communication Comprehension: 3 Expression: 3 Social Cognition Social Interaction: 4 Problem Solvin Memory: 3 Speech Short Term Goals Short Term Goals Short Term Goals 1) Patient will recall information for safety awareness at 90% or greater with minimal cues. 2) Patient will recall new information from memory tasks at 90% accuracy or greater with minimal cues. 3) Patient will follow simple directions within her immediate living environment at 90% or greater with minimal cues. Speech Laborer [employer]erving Plant Goals Intermediate Goals Patient will improve safety awareness and independence with 90% accuracy. Speech-Plan Patient/Family Goals Patient/Family Goals: Patient plans to return home alone when she is strong enough to be independent. Treatment Plan Speech Therapy Treatment Plan: Continue Plan of Care Patient is anxious about gaining her strength back enough to return home. Treatment Duration: May 31, 2018 Frequency: 5 times per week Estimated Hrs Per Day: .5 hour per day Rehab Potential: Fair Barriers to Learning: Patient tires easily. Pt/Family Agrees to Plan: Yes Safety Risks/Education Teaching Recipient: Patient Teaching Methods: Discussion Response to Teaching: Verbalize Understanding Education Topics Provided: Safety and compensatory strategies. Time Speech Therapy Time In: 14:30 Speech Therapy Time Out: 15:00 Total Billed Time: 30 Billed Treatment Time 1FL[address] May 29, 2018 15:24
--- NOTE | 2018-05-29 15:56 | NUR ---
Call made to Dr. Berman's office, left message to schedule f/u appt, they've left for the day.
[2018-05-29 18:35] VITALS: BP 137/68
--- NOTE | 2018-05-29 19:21 | NUR ---
bedside report received from PUJA BLEVINS, assume care of pt
--- NOTE | 2018-05-29 20:00 | NUR ---
assessments & interventions completed, see assessments & interventions, refused colace 100mg due to loose stools, refused Kenalog cream, watching TV in bed
--- NOTE | 2018-05-29 20:04 | PM&R Progress Note ---
Subjective This was a face to face visit with the patient. Date Seen by Provider: May 29, 2018 Time Seen by Provider: 07:50 Subjective/Events-last exam Patient was seen in her room this AM Patient Min assist for transfers Slowly improving Trach site healing well Objective Physician Exam Last Set of Vital Signs Vital Signs Date Time Temp Pulse Resp B/P (MAP) Pulse Ox O2 Delivery O2 Flow Rate FiO2 05/29/18 19:30 Nasal Cannula 3.00 05/29/18 18:35 98.0 77 20 137/68 (91) 100 Capillary Refill : I&O Intake and Output 05/29/18 00:00 Intake Total 1190 ml Output Total 1250 ml Balance -60 ml Intake Oral 1190 ml Output Urine Total 1250 ml # Voids 4 # Bowel Movements 2 General: Alert, Oriented X3, Cooperative, No Acute Distress HEENT: Atraumatic, PERRLA, EOMI, Mucous Memb Moist/[place] Neck: Other (Trach in Place) Lungs: Clear to Auscultation Heart: Regular Rate Abdomen: Normal Bowel Sounds, Soft, No Tenderness, Other (obese with peg site healing well) Extremities: Other (Trace ankle edema) Neuro: Other (Proximal weakness Both lower limbs Strength 3+/5 Both upper limbs ) Psych/Mental Status: Other (anxiety) Results Lab Data Laboratory Tests 05/27/18 09:20: Magnesium Level 2.0 05/29/18 05:50: White Blood Count 10.3, Red Blood Count 4.40, Hemoglobin 12.3, Hematocrit 41, Mean Corpuscular Volume 93, Mean Corpuscular Hemoglobin 28, Mean Corpuscular Hemoglobin Concent 30L, Red Cell Distribution Width 18.3H, Platelet Count 315, Mean Platelet Volume 10.2 Microbiology 05/25/18 Urine Culture - Final, Complete Pseudomonas aeruginosa Enterococcus faecium Assessment/Plan Assessment and Plan 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
[2018-05-29] MEDS: DONEPEZIL 10 MG (ARICEPT) TAB PO SCH (20:24)
[2018-05-29] MEDS: OLANZapine 5 MG (ZyPREXA) TAB PO SCH (20:24)
[2018-05-29] MEDS: ATORVASTATIN 40 MG (LIPITOR) TABLET PO SCH (20:24)
--- NOTE | 2018-05-29 20:46 | NUR ---
TOOL ENGINEER met with patient to review Team Conference Summary. As patient continues to progress, but currently requires Min to Mod assist with all activities, team has recommended that patients status be re-evaluated at next team conference on 06/06. Although patient may not reach Mod I status with all activities prior to discharge, due to lengthened hospitalization and severe muscle mass loss, therapy is hoping to obtain improved endurance and progression for patient to safely return home. Per therapy, patient has exhibited a lack of motivation, TOOL ENGINEER addressed this. Patient verbalizes the need to push herself and will actively work to do so. TOOL ENGINEER will continue to follow progress.
[2018-05-30] MEDS: PROMETHAZINE 25 MG (PHENERGAN) TAB PO SCH ×4 (00:01→23:01)
[2018-05-30 06:00] VITALS: BP 131/78
[2018-05-30] MEDS: CATHETER FLUSH 10 ML SYR IV SCH ×4 (06:00→19:26)
[2018-05-30] MEDS: CYANOCOBALAMIN 1,000 MCG (VITAMIN B-12) TABLET PO SCH (07:04)
[2018-05-30] MEDS: MULTIVIT W/MINERALS TAB (THERAGRAN M) PO SCH (07:05)
[2018-05-30] MEDS: LACTOBACILLUS ACIDOPHILUS (PROBIOTIC) CAPSULE PO SCH ×3 (07:05→17:08)
[2018-05-30] MEDS: PANTOPRAZOLE 40 MG (PROTONIX) TAB PO SCH ×2 (07:05→20:28)
[2018-05-30] MEDS: ADVAIR HFA 115/21 MCG INHALER 8 GM IH SCH ×2 (07:18→21:39)
--- NOTE | 2018-05-30 07:28 | NUR ---
BEDSIDE REPORT GIVEN TO PUJA BLEVINS
--- NOTE | 2018-05-30 08:15 | Progress Note (SOAP) ---
Subjective Time Seen by a Provider: 08:12 Subjective/Events-last exam Disuse myopathy. Patient's blood pressure good today. Patient walked 40 feet yesterday with the aid of a walker. Patient feel she is improving since she came in. Patient bipolar and doing good Objective Exam Vital Signs Date Time Temp Pulse Resp B/P (MAP) Pulse Ox O2 Delivery O2 Flow Rate FiO2 05/30/18 07:18 Nasal Cannula 3.00 05/30/18 06:00 98.1 71 20 131/78 (95) 95 Nasal Cannula 3.00 05/29/18 20:00 Nasal Cannula 3.00 05/29/18 19:30 Nasal Cannula 3.00 05/29/18 18:35 98.0 77 20 137/68 (91) 100 Nasal Cannula 3.00 05/29/18 08:34 Nasal Cannula 3.00 I & O 05/30/18 07:00 Intake Total 1650 ml Balance 1650 ml Capillary Refill : General Appearance: No Apparent Distress, WD/WN Neck: Normal Inspection Respiratory: No Accessory Muscle Use, No Respiratory Distress, Decreased Breath Sounds Cardiovascular: Regular Rate, Rhythm, No Murmur Gastrointestinal: non tender, soft Results Lab Microbiology 05/25/18 Urine Culture - Final, Complete Pseudomonas aeruginosa Enterococcus faecium Assessment/Plan Assessment/Plan Assess & Plan/Chief Complaint Myopathy. COPD. Morbid obesity. Bipolar. Anxiety. Depression. Psoriasis. On ventilator. PEG tube removed. Coronary artery disease. GERD. Hypothyroid. Morbid obesity. . 05/21/18. Myopathy. COPD. Morbid obesity. Bipolar. Anxiety. Depression. Psoriasis. Coronary artery disease. Hypothyroid. Morbid obesity. Patient states she's working hard. . 05/22/18. Patient feeling good today. CT of the chest may showpulmonary emboli. COPD. Morbid obesity. Bipolar. Psoriasis. Coronary artery disease Hypothyroid. . 05/23/18. Trach extubated. Patient breathing good. V/Q scan negative for pulmonary embolism. Morbid obesity. Psoriasis. Coronary artery disease. Hypothyroid. Patient feel she is improving. . 05/24/18. Morbid obesity. Psoriasis. Disuse myopathy. Coronary artery disease. Bipolar. Hypothyroid. Current . Disuse myopathy. Psoriasis. Coronary artery disease. Bipolar. Hypothyroid. Nauseousness. To add Phenergan. . 12/18/18. Disuse myopathy. Psoriasis. Bipolar. Coronary artery disease. Hypothyroid. 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 . 05/29/18. Disuse myopathy psoriasis. Bipolar. CAD. Hypothyroid. Patient feeling good. Clinical Quality Measures DVT/VTE Risk/Contraindication: Risk Factor Score Per Nursin RFS Level Per Nursing on Admit: 4+=Very High JOCELYNE MEI DO May 30, 2018 08:14
[2018-05-30] MEDS: meTOprolol TARTRATE 50 MG (LOPRESSOR) TAB PO SCH ×2 (08:44→20:28)
[2018-05-30] MEDS: SUCRALFATE 1 GM (CARAFATE) TAB PO SCH ×3 (08:44→20:28)
[2018-05-30] MEDS: LORATADINE (CLARITIN) 10 MG TAB PO SCH (08:44)
[2018-05-30] MEDS: MELOXICAM 7.5 MG (MOBIC) TABLET PO SCH (08:44)
[2018-05-30] MEDS: HYDROcodone/APAP 10 MG/325 MG (LORTAB) TAB PO PRN ×2 (08:44→17:07)
[2018-05-30] MEDS: ENOXAPARIN 40 MG/0.4 ML (LOVENOX) SYR SC SCH (08:45)
[2018-05-30] MEDS: DOCUSATE SODIUM 100 MG (COLACE) CAP PO SCH ×2 (09:04→20:34)
[2018-05-30] MEDS: TRIAMCINOLONE 0.5% CR (KENALOG) 15 GM TUBE TOP SCH ×3 (09:05→20:32)
[2018-05-30] MEDS: ARTIFICAL TEARS 0.4 ML UNIT DOSE (REFRESH PLUS) OU SCH ×3 (09:05→20:30)
[2018-05-30] MEDS: DICLOFENAC 1% GEL 100 GM (VOLTAREN) TUBE TOP SCH ×4 (09:05→20:32)
[2018-05-30] MEDS: CALCIUM CARBONATE 500 MG (TUMS) TAB.CHEW PO PRN (09:11)
[2018-05-30] MEDS: SCOPOLAMINE 1.5 MG (TRANSDERM-SCOP) PATCH TD SCH (11:23)
[2018-05-30] MEDS: PATCH REMOVAL TP SCH (11:23)
--- NOTE | 2018-05-30 11:35 | NUR ---
provided prayer and Communion. Recently anointed.
--- NOTE | 2018-05-30 11:44 | Occupational Ther Daily Note ---
OT Current Status-Daily Note Subjective No pain reported. Appearance Pt. up in chair. Agrees to shower. Mental Status/Objective Patient Orientation: Person, Place Therapy Code Descriptions/Definitions Functional [place] Measure: 0=Not Assessed/NA 4=Minimal Assistance 1=Total Assistance 5=Supervision or Setup 2=Maximal Assistance 6=Modified [place] 3=Moderate Assistance 7=Complete [place] Attachments: Oxygen ADL-Treatment Therapy Code Descriptions/Definitions Functional [place] Measure: 0=Not Assessed/NA 4=Minimal Assistance 1=Total Assistance 5=Supervision or Setup 2=Maximal Assistance 6=Modified [place] 3=Moderate Assistance 7=Complete [place] Therapy Quality Codes: 6 Independent with activity with or without an assistive device 5 Patient requires set up or clean up by helper. Patient completes activity by themselves 4 Supervision or touching assist (CGA). [place] provide cues , steadying assist 3 The helper provides less than half the effort to complete the activity 2 The helper provides more than half the effort to complete the activity 1 Dependent. The helper does all the effort to complete an activity 7 Patient refused to complete or attempt activity 9 The patient did not perform the activity before the current illness or injury 88 Not attempted due to Medical conditions or safety concerns Grooming (FIM): 3 (Pt. is able to brush her teeth with set up at sink in wheelchair after shower, but requires assist to brush hair.) Oral Hygiene (QC): 5 Bathing (FIM): 3 (Pt. requires assist to wash rear [place]atha area, hair, and feet, but is able to wash all other parts seated in shower.) Shower/Bathe Self (QC): 3 Upper Body (FIM): 3 (Pt. can thread bilateral UE in shirt, but requires assist to to pulling machine operator head and torso.) Upper Body Dressing (QC): 3 Lower Body Dressing (FIM): 2 (Pt. is able to doff right sock, and is able to thread right foot into brief. Requires assist for all other parts.) Lower Body Dressing (QC): 2 On/Off Footwear (QC): 2 Transfers (B, C, W/C) (FIM): 3 (Mod assist for sit-stand. Min assist once she is standing to transfer into shower.) Shower Transfer(FIM): 3 Education OT Patient Education: Correct positioning, Modified ADL techniques, Progress toward Goal/Update tx plan, Purpose of tx/functional activities, Reviewed precautions, Rehab process, Transfer techniques Teaching Recipient: Patient Teaching Methods: Demonstration, Discussion Response to Teaching: Verbalize Understanding, Return Demonstration OT Short Term Goals Short Term Goals Time Frame: May 24, 2018 Eating(FIM): 5 Grooming(FIM): 5 Bathing(FIM): 3 Upper Body Dressing(FIM): 5 Lower Body Dressing(FIM): 2 Toileting(FIM): 1 (one person) Transfers (B,C,W/C) (FIM): 3 Toilet/Commode Transfer(FIM): 1 (one person) Additional Short Term Goals: 1-Demonstrate ADL Tasks, 2-Verbalize Understanding , 3-ImproveStrength/Fede 1=Demonstrate adherence to instructed precautions during ADL tasks. 2=Patient will verbalize/demonstrate understanding of assistive devices/ modifications for ADL. 3=Patient will improve strength/tolerance for activity to enable patient to perform ADL's. OT Residential Plumber Goals Longterm Goals Time Frame: Jun 07, 2018 Eating (FIM): 7 Eating (QC): 6 Groomin Oral Hygiene (QC): 6 Bathing(FIM): 5 Shower/Bathe Self (QC): 5 Upper Body Dressing(FIM): 6 Upper Body Dressing (QC): 6 Lower Body Dressing(FIM): 6 Lower Body Dressing (QC): 6 On/Off Footwear (QC): 6 Toileting(FIM): 6 Toileting Hygiene (QC): 6 Toilet/Commode Transfer(FIM): 6 Toilet/Commode Transfer (QC): 6 Shower Transfer(FIM): 6 Additional Goals: 1-Demonstrate ADL Tasks, 2-Verbalize Understanding, 3- ImproveStrength/Fede 1=Demonstrate adherence to instructed precautions during ADL tasks. 2=Patient will verbalize/demonstrate understanding of assistive devices/ modifications for ADL. 3=Patient will improve strength/tolerance for activity to enable patient to perform ADL's. OT Education/Plan Problem List/Assessment Assessment: Decreased Activ Tolerance, Decreased UE Strength, Dependent Transfers, Impaired Bed Mobility, Impaired Coordination, Impaired Funct Balance , Impaired I ADL's, Impaired Self-Care Skills, Restricted Funct UE ROM Discharge Recommendations Plan/Recommendations: Continue POC Treatment Plan/Plan of Care Treatment,Training & Education: Yes Patient would benefit from OT for education, treatment and training to promote independence in ADL's, mobility, safety and/or upper extremity function for ADL' s. Plan of Care: ADL Retraining, Caregiver Training, Functional Mobility, Group Exercise/Act as Ind (education, exercise, activity tolerance, funct mobility, funtional actiities), UE Funct Exercise/Act, UE Neuromus Re-Ed/Coord, W/C Management Training, OTHER (energy conservation education) Treatment Duration: Jun 07, 2018 Frequency: At least 5 of 7 days/Wk (IRF) Estimated Hrs Per Day: 1.5 hours per day Agreement: Yes Rehab Potential: Fair Time/GCodes Start Time: 10:15 Stop Time: 11:00 Total Time Billed (hr/min): 45 Billed Treatment Time 1, ADL x 3 LUIS VALLE OT May 30, 2018 11:44
--- NOTE | 2018-05-30 11:55 | Speech Therapy Daily Note ---
Speech Daily Progress Note Subjective Date Seen by Provider: May 30, 2018 Time Seen by Provider: 00:30 Patient alert and participated well with cognitive activities. Objective Patient completed common quotes and picture searches at 80% with moderate verbal and/or visual cues. Assessment Assessment Current Status: Good Progress Treatment Plan Continue Plan of Care Communication Comprehension: 3 Expression: 3 Social Cognition Social Interaction: 4 Problem Solvin Memory: 3 Speech Short Term Goals Short Term Goals Short Term Goals 1) Patient will recall information for safety awareness at 90% or greater with minimal cues. 2) Patient will recall new information from memory tasks at 90% accuracy or greater with minimal cues. 3) Patient will follow simple directions within her immediate living environment at 90% or greater with minimal cues. Speech [employer] [employer] Goals Correction Goals Patient will improve safety awareness and independence with 90% accuracy. Speech-Plan Patient/Family Goals Patient/Family Goals: Patient plans to return home alone when she is able to meet her daily needs independently. Treatment Plan Speech Therapy Treatment Plan: Continue Plan of Care Patient continues to progress well with skilled ST services. Treatment Duration: Jun 07, 2018 Frequency: 5 times per week Estimated Hrs Per Day: .5 hour per day Rehab Potential: Fair Barriers to Learning: Patient tires easily and has times she is nauseated to the point of decreased participation. Pt/Family Agrees to Plan: Yes Safety Risks/Education Teaching Recipient: Patient Teaching Methods: Discussion Response to Teaching: Verbalize Understanding Education Topics Provided: Safety and communication of her needs/wants Time Speech Therapy Time In: 09:45 Speech Therapy Time Out: 10:15 Total Billed Time: 30 Billed Treatment Time 1[address] May 30, 2018 11:55
--- NOTE | 2018-05-30 11:55 | Physical Therapy Daily Note ---
PT Daily Note-Current Subjective Patient in wheelchair at bedside pre tx, agrees to PT, has no complaints of pain but wants therapist to ask nurse if she got her pain meds. Nurse said she did earlier this morning. Appearance Patient in wheelchair at bedside post tx with nurse call, phone, tray, all needs met. Mental Status Patient Orientation: Person, Place, Situation Attachments: Oxygen Transfers Therapy Code Descriptions/Definitions Functional [place] Measure: 0=Not Assessed/NA 4=Minimal Assistance 1=Total Assistance 5=Supervision or Setup 2=Maximal Assistance 6=Modified [place] 3=Moderate Assistance 7=Complete [place] Therapy Quality Codes: 6 Independent with activity with or without an assistive device 5 Patient requires set up or clean up by helper. Patient completes activity by themselves 4 Supervision or touching assist (CGA). [place] provide cues , steadying assist 3 The helper provides less than half the effort to complete the activity 2 The helper provides more than half the effort to complete the activity 1 Dependent. The helper does all the effort to complete an activity 7 Patient refused to complete or attempt activity 9 The patient did not perform the activity before the current illness or injury 88 Not attempted due to Medical conditions or safety concerns Transfers (B, C, W/C) (FIM): 5 Sit to/from Stand: 5 Bed to/from Chair: 5 Patient displayed correct hand placement during transfers Gait Training Gait (FIM): 2 Distance: 80'x2, 60' Gait Level of Assist: 5 Gait Persons Needed: 1 Gait Assistive Device: FWW Slow ambulation, small steps but no unsteadiness or LOB, patient had no complaints of feeling like her knees would buckle Wheelchair Training Does the Pt Use a Wheelchair?: Yes Wheelchair (FIM): 4 Distance: 150'x2 Wheelchair Level of Assist: 4 Type of Wheelchair: Manual Exercises Seated Therapy Exercises: Ankle pumps, Long arc quads, Hip flexion Seated Reps: 20 NuStep Minutes: 15 NuStep Workload: 4 Treatments transfers, ambulation, functional strengthening, wheelchair mobility Assessment Current Status: Fair Progress improving endurance with ambulation PT Short Term Goals Short Term Goals Time Frame: May 24, 2018 Transfers (B,C,W/C) (FIM): 3 Gait (FIM): 1 Gait Distance Comment: 5' Gait Level of Assist: 4 Gait Assistive Device: Parallel Bars Wheelchair (FIM): 1 Wheelchair Distance: 150'x2 PT Assisted Goals Assisted Goals PT Assisted Goals Time Frame: Jun 07, 2018 Transfers (B,C,W/C) (FIM): 4 Sit to Lying (QC): 4 Lying-Sitting on Side/Bed(QC): 4 Sit to Stand (QC): 4 Rollin Roll Left to Right (QC): 4 Chair/Xbo-mw-Bfhqc Xfer(QC): 3 Car Transfer (QC): 3 Gait (FIM): 1 Distance: 20' Walk 10 feet (QC): 4 Gait Level of Assist: 4 Gait Assistive Device: FWW Wheelchair (FIM): 2 Distance: 50' Wheelchair Level of Assist: 5 Wheel 50 feet with 2 turns (QC: 4 PT Plan Problem List Problem List: Activity Tolerance, Functional Strength, Safety, Balance, Gait, Transfer, Bed Mobility, ROM Treatment/Plan Treatment Plan: Continue Plan of Care Treatment Plan: Bed Mobility, Concurrent Therapy, Education, Functional Activity Fede, Functional Strength, Group Therapy, Gait, Safety, Therapeutic Exercise, Transfers Treatment Duration: Jun 07, 2018 Frequency: At least 5 of 7 days/Wk (IRF) Estimated Hrs Per Day: 1.5 hours per day Patient and/or Family Agrees t: Yes Safety Risks/Education Patient Education: Gait Training, Transfer Techniques, Correct Positioning, W/ C Management, Safety Issues Teaching Recipient: Patient Teaching Methods: Demonstration, Discussion Response to Teaching: Reinforcement Needed Time/GCodes Time In: 1100 Time Out: 1200 Total Billed Treatment Time: 60 Total Billed Treatment 1 visit [facility] 10' GT 30' EX 20' CLAU SALAZAR PT May 30, 2018 11:55
--- NOTE | 2018-05-30 13:55 | PM&R Progress Note ---
Subjective This was a face to face visit with the patient. Date Seen by Provider: May 30, 2018 Time Seen by Provider: 07:55 Subjective/Events-last exam Patient was seen in her room this AM Patient Min assist for transfers Labs reviewed.Patient has contact precautions due to VRE Objective Physician Exam Last Set of Vital Signs Vital Signs Date Time Temp Pulse Resp B/P (MAP) Pulse Ox O2 Delivery O2 Flow Rate FiO2 05/30/18 08:44 Nasal Cannula 3.00 05/30/18 06:00 98.1 71 20 131/78 (95) 95 Capillary Refill : I&O Intake and Output 05/30/18 00:00 Intake Total 2360 ml Output Total 1575 ml Balance 785 ml Intake Oral 2360 ml Output Urine Total 1575 ml # Voids 5 # Bowel Movements 2 General: Alert, Oriented X3, Cooperative, No Acute Distress HEENT: Atraumatic, PERRLA, EOMI, Mucous Memb Moist/[place] Neck: Other (Trach in Place) Lungs: Clear to Auscultation Heart: Regular Rate Abdomen: Normal Bowel Sounds, Soft, No Tenderness, Other (obese with peg site healing well) Extremities: Other (Trace ankle edema) Neuro: Other (Proximal weakness Both lower limbs Strength 3+/5 Both upper limbs ) Psych/Mental Status: Other (anxiety) Results Lab Data Laboratory Tests 05/29/18 05:50: White Blood Count 10.3, Red Blood Count 4.40, Hemoglobin 12.3, Hematocrit 41, Mean Corpuscular Volume 93, Mean Corpuscular Hemoglobin 28, Mean Corpuscular Hemoglobin Concent 30L, Red Cell Distribution Width 18.3H, Platelet Count 315, Mean Platelet Volume 10.2 Microbiology 05/25/18 Urine Culture - Final, Complete Pseudomonas aeruginosa Enterococcus faecium Assessment/Plan Assessment and Plan 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 sepsis Copd 02 dependent Trach s/p decannulation DVT prophylaxis on lovenox subcut OA Tobaccoism Anxiety UTI treated Shoulder pain improved with Voltaren gel Onychomycosis s/p debridement DPM Idiopathic PN Plan Continue PT/OT Review progress next week with Team F/U with DR oconnell prn Dr oconnell covering my service from 06-05-18 til 06-07-18 12 noon Co-Morbidities that are continuing to impact the rehab process: (include details ) JOSE COOK MD May 30, 2018 13:55
--- NOTE | 2018-05-30 15:20 | Physical Therapy Daily Note ---
PT Daily Note-Current Subjective Agrees to PT. Reports she is tired this afternoon. Mental Status Patient Orientation: Person, Place, Time, Situation Transfers Therapy Code Descriptions/Definitions Functional [place] Measure: 0=Not Assessed/NA 4=Minimal Assistance 1=Total Assistance 5=Supervision or Setup 2=Maximal Assistance 6=Modified [place] 3=Moderate Assistance 7=Complete [place] Therapy Quality Codes: 6 Independent with activity with or without an assistive device 5 Patient requires set up or clean up by helper. Patient completes activity by themselves 4 Supervision or touching assist (CGA). [place] provide cues , steadying assist 3 The helper provides less than half the effort to complete the activity 2 The helper provides more than half the effort to complete the activity 1 Dependent. The helper does all the effort to complete an activity 7 Patient refused to complete or attempt activity 9 The patient did not perform the activity before the current illness or injury 88 Not attempted due to Medical conditions or safety concerns Treatments Pt able to transfer sit tos tand with CGA and ambulated x 100 ft with FWW with CGA and assist with oxygen. Pt then took 5-6 steps to transfer onto the commode. She was CGA for this and then dep for tabatha care and mod assist to pull her clothing up. Pt required min assist to transfer sit to supine. Pt in bed with needs met post treatment. Assessment Current Status: Good Progress Tired this afternoon, but her functional strength and mobility is improving. PT Short Term Goals Short Term Goals Time Frame: May 24, 2018 Transfers (B,C,W/C) (FIM): 3 (met) Gait (FIM): 1 (met) Gait Distance Comment: 5' Gait Level of Assist: 4 Gait Assistive Device: Parallel Bars Wheelchair (FIM): 1 Wheelchair Distance: 150'x2 PT Long-Term Goals Certified Tumor Registrar Goals PT Certified Tumor Registrar Goals Time Frame: Jun 07, 2018 Transfers (B,C,W/C) (FIM): 4 Sit to Lying (QC): 4 Lying-Sitting on Side/Bed(QC): 4 Sit to Stand (QC): 4 Rollin Roll Left to Right (QC): 4 Chair/Oqm-ii-Oyopt Xfer(QC): 3 Car Transfer (QC): 3 Gait (FIM): 1 Distance: 20' Walk 10 feet (QC): 4 Gait Level of Assist: 4 Gait Assistive Device: FWW Wheelchair (FIM): 2 Distance: 50' Wheelchair Level of Assist: 5 Wheel 50 feet with 2 turns (QC: 4 PT Plan Problem List Problem List: Activity Tolerance, Functional Strength, Safety, Balance, Gait, Transfer, Bed Mobility Treatment/Plan Treatment Plan: Continue Plan of Care Treatment Plan: Bed Mobility, Concurrent Therapy, Education, Functional Activity Fede, Functional Strength, Group Therapy, Gait, Safety, Therapeutic Exercise, Transfers Treatment Duration: Jun 07, 2018 Frequency: At least 5 of 7 days/Wk (IRF) Estimated Hrs Per Day: 1.5 hours per day Patient and/or Family Agrees t: Yes Safety Risks/Education Patient Education: Transfer Techniques, Safety Issues Teaching Recipient: Patient Teaching Methods: Demonstration, Discussion Response to Teaching: Reinforcement Needed Time/GCodes Time In: 1430 Time Out: 1445 Total Billed Treatment Time: 15 Total Billed Treatment visit GT 15 PILLO DAWSON PT May 30, 2018 15:20
--- NOTE | 2018-05-30 16:04 | Occupational Ther Daily Note ---
OT Current Status-Daily Note Subjective Pt. states that she is tired but does not report pain. Appearance Pt. up in chair in room. Agrees to work with OT. Mental Status/Objective Patient Orientation: Person, Place Therapy Code Descriptions/Definitions Functional [place] Measure: 0=Not Assessed/NA 4=Minimal Assistance 1=Total Assistance 5=Supervision or Setup 2=Maximal Assistance 6=Modified [place] 3=Moderate Assistance 7=Complete [place] ADL-Treatment Therapy Code Descriptions/Definitions Functional [place] Measure: 0=Not Assessed/NA 4=Minimal Assistance 1=Total Assistance 5=Supervision or Setup 2=Maximal Assistance 6=Modified [place] 3=Moderate Assistance 7=Complete [place] Therapy Quality Codes: 6 Independent with activity with or without an assistive device 5 Patient requires set up or clean up by helper. Patient completes activity by themselves 4 Supervision or touching assist (CGA). [place] provide cues , steadying assist 3 The helper provides less than half the effort to complete the activity 2 The helper provides more than half the effort to complete the activity 1 Dependent. The helper does all the effort to complete an activity 7 Patient refused to complete or attempt activity 9 The patient did not perform the activity before the current illness or injury 88 Not attempted due to Medical conditions or safety concerns Lower Body Dressing (FIM): 3 (Pt. is issued sock aide and dressing stick. Practices doffing/donning slipper socks with these items. Pt. attempts the soft sock aide, and hard sock aide. Does like the hard one better. Overall, requires mod assist.) Lower Body Dressing (QC): 3 On/Off Footwear (QC): 3 Other Treatment After practicing socks in room, pt. practiced self propulsion in wheelchair for increased overall strength. Pt. encouraged to put hands further back on wheels , but states that she can't do it. Uses arms and legs to propel self around dining area for overall increased endurance. Pt. up in chair waiting for PT when done with session. All needs met. Education OT Patient Education: Correct positioning, Exercise program, Modified ADL techniques, Progress toward Goal/Update tx plan, Purpose of tx/functional activities, Reviewed precautions, Rehab process, Transfer techniques, Use of adapted equipment Teaching Recipient: Patient Teaching Methods: Demonstration, Discussion Response to Teaching: Verbalize Understanding, Return Demonstration OT Short Term Goals Short Term Goals Time Frame: May 24, 2018 Eating(FIM): 5 Grooming(FIM): 5 Bathing(FIM): 3 Upper Body Dressing(FIM): 5 Lower Body Dressing(FIM): 2 Toileting(FIM): 1 (one person) Transfers (B,C,W/C) (FIM): 3 (met) Toilet/Commode Transfer(FIM): 1 (one person) Additional Short Term Goals: 1-Demonstrate ADL Tasks, 2-Verbalize Understanding , 3-ImproveStrength/Fede 1=Demonstrate adherence to instructed precautions during ADL tasks. 2=Patient will verbalize/demonstrate understanding of assistive devices/ modifications for ADL. 3=Patient will improve strength/tolerance for activity to enable patient to perform ADL's. OT Jail Goals Jail Goals Time Frame: Jun 07, 2018 Eating (FIM): 7 Eating (QC): 6 Groomin Oral Hygiene (QC): 6 Bathing(FIM): 5 Shower/Bathe Self (QC): 5 Upper Body Dressing(FIM): 6 Upper Body Dressing (QC): 6 Lower Body Dressing(FIM): 6 Lower Body Dressing (QC): 6 On/Off Footwear (QC): 6 Toileting(FIM): 6 Toileting Hygiene (QC): 6 Toilet/Commode Transfer(FIM): 6 Toilet/Commode Transfer (QC): 6 Shower Transfer(FIM): 6 Additional Goals: 1-Demonstrate ADL Tasks, 2-Verbalize Understanding, 3- ImproveStrength/Fede 1=Demonstrate adherence to instructed precautions during ADL tasks. 2=Patient will verbalize/demonstrate understanding of assistive devices/ modifications for ADL. 3=Patient will improve strength/tolerance for activity to enable patient to perform ADL's. OT Education/Plan Problem List/Assessment Assessment: Decreased Activ Tolerance, Decreased UE Strength, Dependent Transfers, Impaired Bed Mobility, Impaired Coordination, Impaired Funct Balance , Impaired I ADL's, Impaired Self-Care Skills Discharge Recommendations Plan/Recommendations: Continue POC Treatment Plan/Plan of Care Treatment,Training & Education: Yes Patient would benefit from OT for education, treatment and training to promote independence in ADL's, mobility, safety and/or upper extremity function for ADL' s. Plan of Care: ADL Retraining, Caregiver Training, Functional Mobility, Group Exercise/Act as Ind (education, exercise, activity tolerance, funct mobility, funtional actiities), UE Funct Exercise/Act, UE Neuromus Re-Ed/Coord, W/C Management Training, OTHER (energy conservation education) Treatment Duration: Jun 07, 2018 Frequency: At least 5 of 7 days/Wk (IRF) Estimated Hrs Per Day: 1.5 hours per day Agreement: Yes Rehab Potential: Fair Time/GCodes Start Time: 14:00 Stop Time: 14:30 Total Time Billed (hr/min): 30 Billed Treatment Time 1, ADL x 15minutes, FA x 15minutes LUIS VALLE OT May 30, 2018 16:04
[2018-05-30 16:33] VITALS: BP 156/89
[2018-05-30] MEDS: OLANZapine 5 MG (ZyPREXA) TAB PO SCH (20:28)
[2018-05-30] MEDS: ATORVASTATIN 40 MG (LIPITOR) TABLET PO SCH (20:28)
[2018-05-30] MEDS: DONEPEZIL 10 MG (ARICEPT) TAB PO SCH (20:28)
[2018-05-31] MEDS: LACTOBACILLUS ACIDOPHILUS (PROBIOTIC) CAPSULE PO SCH ×3 (06:17→16:42)
[2018-05-31] MEDS: PANTOPRAZOLE 40 MG (PROTONIX) TAB PO SCH ×2 (06:17→21:38)
[2018-05-31] MEDS: CYANOCOBALAMIN 1,000 MCG (VITAMIN B-12) TABLET PO SCH (06:17)
[2018-05-31] MEDS: MULTIVIT W/MINERALS TAB (THERAGRAN M) PO SCH (06:17)
[2018-05-31 06:48] VITALS: BP 136/87
--- NOTE | 2018-05-31 08:21 | Progress Note (SOAP) ---
Subjective Time Seen by a Provider: 08:19 Subjective/Events-last exam Patient has no complaints today. Patient resting comfortably in wheelchair. Patient breathing good Objective Exam Vital Signs Date Time Temp Pulse Resp B/P (MAP) Pulse Ox O2 Delivery O2 Flow Rate FiO2 05/31/18 06:48 97.9 82 20 136/87 (103) 96 Nasal Cannula 3.00 05/30/18 21:42 97 Nasal Cannula 3.00 05/30/18 20:45 Nasal Cannula 3.00 05/30/18 16:33 97.0 78 14 156/89 (111) 97 Nasal Cannula 3.00 05/30/18 08:44 Nasal Cannula 3.00 I & O 05/31/18 07:00 Intake Total 1890 ml Balance 1890 ml Capillary Refill : General Appearance: No Apparent Distress, WD/WN HEENT: Normal ENT Inspection Neck: Full Range of Motion, Normal Inspection Respiratory: Lungs Clear, No Accessory Muscle Use, No Respiratory Distress, Decreased Breath Sounds Cardiovascular: Regular Rate, Rhythm, No Murmur Gastrointestinal: non tender, soft Results Lab Microbiology 05/25/18 Urine Culture - Final, Complete Pseudomonas aeruginosa Enterococcus faecium Assessment/Plan Assessment/Plan Assess & Plan/Chief Complaint Myopathy. COPD. Morbid obesity. Bipolar. Anxiety. Depression. Psoriasis. On ventilator. PEG tube removed. Coronary artery disease. GERD. Hypothyroid. Morbid obesity. . 05/21/18. Myopathy. COPD. Morbid obesity. Bipolar. Anxiety. Depression. Psoriasis. Coronary artery disease. Hypothyroid. Morbid obesity. Patient states she's working hard. . 05/22/18. Patient feeling good today. CT of the chest may showpulmonary emboli. COPD. Morbid obesity. Bipolar. Psoriasis. Coronary artery disease Hypothyroid. . 05/23/18. Trach extubated. Patient breathing good. V/Q scan negative for pulmonary embolism. Morbid obesity. Psoriasis. Coronary artery disease. Hypothyroid. Patient feel she is improving. . 05/24/18. Morbid obesity. Psoriasis. Disuse myopathy. Coronary artery disease. Bipolar. Hypothyroid. Current . Disuse myopathy. Psoriasis. Coronary artery disease. Bipolar. Hypothyroid. Nauseousness. To add Phenergan. . 05/28/18. Disuse myopathy. Psoriasis. Bipolar. Coronary artery disease. Hypothyroid. 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 . 05/29/18. Disuse myopathy psoriasis. Bipolar. CAD. Hypothyroid. Patient feeling good.. . 05/31/18. Disuse myopathy. Psoriasis. Bipolar. CAD. Hypothyroid patient walking good with walker. Patient seen yesterday Clinical Quality Measures DVT/VTE Risk/Contraindication: Risk Factor Score Per Nursin RFS Level Per Nursing on Admit: 4+=Very High JOCELYNE MEI DO May 31, 2018 08:21
[2018-05-31] MEDS: ONDANSETRON 8 MG (ZOFRAN) ORAL DISSOLVE TAB PO PRN (08:28)
[2018-05-31] MEDS: PROMETHAZINE 25 MG (PHENERGAN) TAB PO SCH ×2 (08:28→16:42)
[2018-05-31] MEDS: meTOprolol TARTRATE 50 MG (LOPRESSOR) TAB PO SCH ×2 (08:28→21:38)
[2018-05-31] MEDS: ARTIFICAL TEARS 0.4 ML UNIT DOSE (REFRESH PLUS) OU SCH ×3 (08:28→21:40)
[2018-05-31] MEDS: DOCUSATE SODIUM 100 MG (COLACE) CAP PO SCH ×2 (08:28→21:40)
[2018-05-31] MEDS: HYDROcodone/APAP 10 MG/325 MG (LORTAB) TAB PO PRN ×2 (08:29→16:42)
[2018-05-31] MEDS: ENOXAPARIN 40 MG/0.4 ML (LOVENOX) SYR SC SCH (08:29)
[2018-05-31] MEDS: LORATADINE (CLARITIN) 10 MG TAB PO SCH (08:29)
[2018-05-31] MEDS: MELOXICAM 7.5 MG (MOBIC) TABLET PO SCH (08:29)
[2018-05-31] MEDS: SUCRALFATE 1 GM (CARAFATE) TAB PO SCH ×3 (08:29→21:38)
[2018-05-31] MEDS: TRIAMCINOLONE 0.5% CR (KENALOG) 15 GM TUBE TOP SCH ×3 (08:30→21:40)
[2018-05-31] MEDS: DICLOFENAC 1% GEL 100 GM (VOLTAREN) TUBE TOP SCH ×4 (08:30→21:40)
[2018-05-31] MEDS: ADVAIR HFA 115/21 MCG INHALER 8 GM IH SCH ×2 (10:25→19:08)
--- NOTE | 2018-05-31 11:58 | Physical Therapy Daily Note ---
PT Daily Note-Current Subjective Patient in wheelchair at bedside pre tx, agrees to PT, no complaints of pain. Appearance Patient in wheelchair at bedside post tx with nurse call, phone, tray, all needs met. Mental Status Patient Orientation: Person, Place, Situation, Normal For Age Attachments: Oxygen Transfers Therapy Code Descriptions/Definitions Functional [place] Measure: 0=Not Assessed/NA 4=Minimal Assistance 1=Total Assistance 5=Supervision or Setup 2=Maximal Assistance 6=Modified [place] 3=Moderate Assistance 7=Complete [place] Therapy Quality Codes: 6 Independent with activity with or without an assistive device 5 Patient requires set up or clean up by helper. Patient completes activity by themselves 4 Supervision or touching assist (CGA). [place] provide cues , steadying assist 3 The helper provides less than half the effort to complete the activity 2 The helper provides more than half the effort to complete the activity 1 Dependent. The helper does all the effort to complete an activity 7 Patient refused to complete or attempt activity 9 The patient did not perform the activity before the current illness or injury 88 Not attempted due to Medical conditions or safety concerns Transfers (B, C, W/C) (FIM): 5 Sit to/from Stand: 5 Bed to/from Chair: 5 Gait Training Gait (FIM): 4 Distance: 150'x2, 80' Gait Level of Assist: 4 Gait Persons Needed: 1 Gait Assistive Device: FWW CGA, patient SOB post ambulation, no LOB, no knee buckling Wheelchair Training Does the Pt Use a Wheelchair?: Yes Wheelchair (FIM): 5 Distance: 150'x2 Type of Wheelchair: Manual Exercises Standing: Hip Abduction, Heel/toe raises, Marching, Mini squats Standing Reps: 15 Treatments transfers, ambulation, functional strengthening Assessment Current Status: Fair Progress improving endurance and ambulation PT Short Term Goals Short Term Goals Time Frame: May 24, 2018 Transfers (B,C,W/C) (FIM): 3 (met) Gait (FIM): 1 (met) Gait Distance Comment: 5' Gait Level of Assist: 4 Gait Assistive Device: Parallel Bars Wheelchair (FIM): 1 Wheelchair Distance: 150'x2 PT Chcf Goals Chcf Goals PT Chcf Goals Time Frame: Jun 07, 2018 Transfers (B,C,W/C) (FIM): 4 Sit to Lying (QC): 4 Lying-Sitting on Side/Bed(QC): 4 Sit to Stand (QC): 4 Rollin Roll Left to Right (QC): 4 Chair/Esb-nc-Kjlcv Xfer(QC): 3 Car Transfer (QC): 3 Gait (FIM): 1 Distance: 20' Walk 10 feet (QC): 4 Gait Level of Assist: 4 Gait Assistive Device: FWW Wheelchair (FIM): 2 Distance: 50' Wheelchair Level of Assist: 5 Wheel 50 feet with 2 turns (QC: 4 PT Plan Problem List Problem List: Activity Tolerance, Functional Strength, Safety, Balance, Gait, Transfer, Bed Mobility, ROM Treatment/Plan Treatment Plan: Continue Plan of Care Treatment Plan: Bed Mobility, Concurrent Therapy, Education, Functional Activity Fede, Functional Strength, Group Therapy, Gait, Safety, Therapeutic Exercise, Transfers Treatment Duration: Jun 07, 2018 Frequency: At least 5 of 7 days/Wk (IRF) Estimated Hrs Per Day: 1.5 hours per day Patient and/or Family Agrees t: Yes Safety Risks/Education Patient Education: Gait Training, Transfer Techniques, Correct Positioning, W/ C Management, Safety Issues Teaching Recipient: Patient Teaching Methods: Demonstration, Discussion Response to Teaching: Reinforcement Needed Time/GCodes Time In: 1115 Time Out: 1200 Total Billed Treatment Time: 45 Total Billed Treatment 1 visit EX 15' GT 30' CLAU SALAZAR PT May 31, 2018 11:58
--- NOTE | 2018-05-31 12:12 | Occupational Ther Daily Note ---
OT Current Status-Daily Note Subjective Pt sitting in w/c, agrees to therapy. Pt reports 8/10 pain in left shoulder, states she's taken pain medication Mental Status/Objective Therapy Code Descriptions/Definitions Functional [place] Measure: 0=Not Assessed/NA 4=Minimal Assistance 1=Total Assistance 5=Supervision or Setup 2=Maximal Assistance 6=Modified [place] 3=Moderate Assistance 7=Complete [place] Attachments: Oxygen ADL-Treatment Pt requests to use BSC. Transfer w/c to BSC with CGA using FWW. Pt requires assist to complete toileting hygiene. Gait to restroom with FWW. Transfer to walk in shower with minimal assistance and cues for safety using grab bars for balance. Pt doffed gown with SBA. Doffed right sock with SBA, required dressing stick to doff left sock, but did not require assist. Seated bathing completed using hand held shower. Pt able to wash bilateral UE, chest, abdomen, tabatha area , and bilateral upper legs. Assist to wash/dry feet and buttocks. Pt threaded bilateral UE into sleeves and attempted to put shirt over head. Required assist to picker/puller head and pull down in back. Pt able to thread right LE into Depends and pant leg, but required assist on left. Stood with minimal assistance. Pt was able to assist in pulling pants up, but required assist to complete task. Donned socks with mod assist using sock aid. Grooming tasks completed seated at sink. Pt brushed teeth with set up. Required max assist to comb hair. Pt sitting in w/c with needs met and RT present after session. Therapy Code Descriptions/Definitions Functional [place] Measure: 0=Not Assessed/NA 4=Minimal Assistance 1=Total Assistance 5=Supervision or Setup 2=Maximal Assistance 6=Modified [place] 3=Moderate Assistance 7=Complete [place] Therapy Quality Codes: 6 Independent with activity with or without an assistive device 5 Patient requires set up or clean up by helper. Patient completes activity by themselves 4 Supervision or touching assist (CGA). [place] provide cues , steadying assist 3 The helper provides less than half the effort to complete the activity 2 The helper provides more than half the effort to complete the activity 1 Dependent. The helper does all the effort to complete an activity 7 Patient refused to complete or attempt activity 9 The patient did not perform the activity before the current illness or injury 88 Not attempted due to Medical conditions or safety concerns Grooming (FIM): 3 Oral Hygiene (QC): 3 Bathing (FIM): 3 Shower/Bathe Self (QC): 3 Upper Body (FIM): 3 Upper Body Dressing (QC): 3 Lower Body Dressing (FIM): 2 Lower Body Dressing (QC): 2 Toileting (FIM): 2 Toilet/Commode Transfer (FIM): 4 Shower Transfer(FIM): 4 OT Short Term Goals Short Term Goals Time Frame: May 24, 2018 Eating(FIM): 5 Grooming(FIM): 5 Bathing(FIM): 3 Upper Body Dressing(FIM): 5 Lower Body Dressing(FIM): 2 Toileting(FIM): 1 (one person) Transfers (B,C,W/C) (FIM): 3 (met) Toilet/Commode Transfer(FIM): 1 (one person) Additional Short Term Goals: 1-Demonstrate ADL Tasks, 2-Verbalize Understanding , 3-ImproveStrength/Fede 1=Demonstrate adherence to instructed precautions during ADL tasks. 2=Patient will verbalize/demonstrate understanding of assistive devices/ modifications for ADL. 3=Patient will improve strength/tolerance for activity to enable patient to perform ADL's. OT Siphon Operator Goals Assisted Goals Time Frame: Jun 07, 2018 Eating (FIM): 7 Eating (QC): 6 Groomin Oral Hygiene (QC): 6 Bathing(FIM): 5 Shower/Bathe Self (QC): 5 Upper Body Dressing(FIM): 6 Upper Body Dressing (QC): 6 Lower Body Dressing(FIM): 6 Lower Body Dressing (QC): 6 On/Off Footwear (QC): 6 Toileting(FIM): 6 Toileting Hygiene (QC): 6 Toilet/Commode Transfer(FIM): 6 Toilet/Commode Transfer (QC): 6 Shower Transfer(FIM): 6 Additional Goals: 1-Demonstrate ADL Tasks, 2-Verbalize Understanding, 3- ImproveStrength/Fede 1=Demonstrate adherence to instructed precautions during ADL tasks. 2=Patient will verbalize/demonstrate understanding of assistive devices/ modifications for ADL. 3=Patient will improve strength/tolerance for activity to enable patient to perform ADL's. OT Education/Plan Discharge Recommendations Plan/Recommendations: Continue POC Treatment Plan/Plan of Care Patient would benefit from OT for education, treatment and training to promote independence in ADL's, mobility, safety and/or upper extremity function for ADL' s. Plan of Care: ADL Retraining, Caregiver Training, Functional Mobility, Group Exercise/Act as Ind (education, exercise, activity tolerance, funct mobility, funtional actiities), UE Funct Exercise/Act, UE Neuromus Re-Ed/Coord, W/C Management Training, OTHER (energy conservation education) Treatment Duration: Jun 07, 2018 Frequency: At least 5 of 7 days/Wk (IRF) Estimated Hrs Per Day: 1.5 hours per day Agreement: Yes Rehab Potential: Fair Time/GCodes Start Time: 09:45 Stop Time: 10:30 Total Time Billed (hr/min): 45 Billed Treatment Time 1 visit, ADLx3(45minutes) ALIYAH PORTILLO OT May 31, 2018 12:12
--- NOTE | 2018-05-31 14:07 | Occupational Ther Daily Note ---
OT Current Status-Daily Note Subjective Pt sitting in w/c, agrees to therapy. Mental Status/Objective Therapy Code Descriptions/Definitions Functional [place] Measure: 0=Not Assessed/NA 4=Minimal Assistance 1=Total Assistance 5=Supervision or Setup 2=Maximal Assistance 6=Modified [place] 3=Moderate Assistance 7=Complete [place] Attachments: Oxygen ADL-Treatment Pt requests to use BSC. Sit to stand from w/c with CGA. Transfer to BSC with FWW , cues for safety. Pt able to pull pants down, but requires assist for toileting hygiene and to pull pants up. Transfer back to w/c with minimal assistance. Therapy Code Descriptions/Definitions Functional [place] Measure: 0=Not Assessed/NA 4=Minimal Assistance 1=Total Assistance 5=Supervision or Setup 2=Maximal Assistance 6=Modified [place] 3=Moderate Assistance 7=Complete [place] Therapy Quality Codes: 6 Independent with activity with or without an assistive device 5 Patient requires set up or clean up by helper. Patient completes activity by themselves 4 Supervision or touching assist (CGA). [place] provide cues , steadying assist 3 The helper provides less than half the effort to complete the activity 2 The helper provides more than half the effort to complete the activity 1 Dependent. The helper does all the effort to complete an activity 7 Patient refused to complete or attempt activity 9 The patient did not perform the activity before the current illness or injury 88 Not attempted due to Medical conditions or safety concerns Toilet/Commode Transfer (FIM): 4 Toilet Transfer (QC): 3 Other Treatment Pt propelled w/c to therapy gym using bilateral UE, increased time. Assist to manage Oxygen. Pt completed graded clothespin activity with bilateral hands to increase feed crusher operator/pinch strength. Pt able to complete activity with right hand, but has difficulty with highest resistance clothespins using left hand. Pt requires increased time for task. Pt propelled w/c back to room. Sitting with needs met after session. OT Short Term Goals Short Term Goals Time Frame: May 24, 2018 Eating(FIM): 5 Grooming(FIM): 5 Bathing(FIM): 3 Upper Body Dressing(FIM): 5 Lower Body Dressing(FIM): 2 Toileting(FIM): 1 (one person) Transfers (B,C,W/C) (FIM): 3 (met) Toilet/Commode Transfer(FIM): 1 (one person) Additional Short Term Goals: 1-Demonstrate ADL Tasks, 2-Verbalize Understanding , 3-ImproveStrength/Fede 1=Demonstrate adherence to instructed precautions during ADL tasks. 2=Patient will verbalize/demonstrate understanding of assistive devices/ modifications for ADL. 3=Patient will improve strength/tolerance for activity to enable patient to perform ADL's. OT Shelter Goals Detective Bureau Chief Goals Time Frame: Jun 07, 2018 Eating (FIM): 7 Eating (QC): 6 Groomin Oral Hygiene (QC): 6 Bathing(FIM): 5 Shower/Bathe Self (QC): 5 Upper Body Dressing(FIM): 6 Upper Body Dressing (QC): 6 Lower Body Dressing(FIM): 6 Lower Body Dressing (QC): 6 On/Off Footwear (QC): 6 Toileting(FIM): 6 Toileting Hygiene (QC): 6 Toilet/Commode Transfer(FIM): 6 Toilet/Commode Transfer (QC): 6 Shower Transfer(FIM): 6 Additional Goals: 1-Demonstrate ADL Tasks, 2-Verbalize Understanding, 3- ImproveStrength/Fede 1=Demonstrate adherence to instructed precautions during ADL tasks. 2=Patient will verbalize/demonstrate understanding of assistive devices/ modifications for ADL. 3=Patient will improve strength/tolerance for activity to enable patient to perform ADL's. OT Education/Plan Discharge Recommendations Plan/Recommendations: Continue POC Treatment Plan/Plan of Care Patient would benefit from OT for education, treatment and training to promote independence in ADL's, mobility, safety and/or upper extremity function for ADL' s. Plan of Care: ADL Retraining, Caregiver Training, Functional Mobility, Group Exercise/Act as Ind (education, exercise, activity tolerance, funct mobility, funtional actiities), UE Funct Exercise/Act, UE Neuromus Re-Ed/Coord, W/C Management Training, OTHER (energy conservation education) Treatment Duration: Jun 07, 2018 Frequency: At least 5 of 7 days/Wk (IRF) Estimated Hrs Per Day: 1.5 hours per day Agreement: Yes Rehab Potential: Fair Time/GCodes Start Time: 13:00 Stop Time: 13:30 Total Time Billed (hr/min): 30 Billed Treatment Time 1 visit, ADL(15minutes), EX(15minutes) ALIYAH PORTILLO OT May 31, 2018 14:07
--- NOTE | 2018-05-31 15:01 | Physical Therapy Daily Note ---
PT Daily Note-Current Subjective Patient in wheelchair at bedside pre tx, agrees to PT, no complaints of pain. Appearance Patient in wheelchair at bedside post tx, has nurse call, phone, tray, all needs met. Mental Status Patient Orientation: Normal For Age Attachments: Oxygen Transfers Therapy Code Descriptions/Definitions Functional [place] Measure: 0=Not Assessed/NA 4=Minimal Assistance 1=Total Assistance 5=Supervision or Setup 2=Maximal Assistance 6=Modified [place] 3=Moderate Assistance 7=Complete [place] Therapy Quality Codes: 6 Independent with activity with or without an assistive device 5 Patient requires set up or clean up by helper. Patient completes activity by themselves 4 Supervision or touching assist (CGA). [place] provide cues , steadying assist 3 The helper provides less than half the effort to complete the activity 2 The helper provides more than half the effort to complete the activity 1 Dependent. The helper does all the effort to complete an activity 7 Patient refused to complete or attempt activity 9 The patient did not perform the activity before the current illness or injury 88 Not attempted due to Medical conditions or safety concerns Transfers (B, C, W/C) (FIM): 5 Sit to/from Stand: 5 Gait Training Gait (FIM): 5 Distance: 150'x2 Gait Level of Assist: 5 Gait Persons Needed: 1 Gait Assistive Device: FWW slow, steady ambulation, no unsteadiness with turns Wheelchair Training Does the Pt Use a Wheelchair?: Yes Wheelchair (FIM): 4 Distance: 150'x2 Wheelchair Level of Assist: 4 Type of Wheelchair: Manual still needs occasional assist around corners or obstacles Treatments transfers, wheelchair mobility, ambulation Assessment Current Status: Fair Progress improving ambulation PT Short Term Goals Short Term Goals Time Frame: May 24, 2018 Transfers (B,C,W/C) (FIM): 3 (met) Gait (FIM): 1 (met) Gait Distance Comment: 5' Gait Level of Assist: 4 Gait Assistive Device: Parallel Bars Wheelchair (FIM): 1 Wheelchair Distance: 150'x2 PT Sequins Spooler Goals Sequins Spooler Goals PT Senior Living Goals Time Frame: Jun 07, 2018 Transfers (B,C,W/C) (FIM): 4 Sit to Lying (QC): 4 Lying-Sitting on Side/Bed(QC): 4 Sit to Stand (QC): 4 Rollin Roll Left to Right (QC): 4 Chair/Fso-jc-Simnl Xfer(QC): 3 Car Transfer (QC): 3 Gait (FIM): 1 Distance: 20' Walk 10 feet (QC): 4 Gait Level of Assist: 4 Gait Assistive Device: FWW Wheelchair (FIM): 2 Distance: 50' Wheelchair Level of Assist: 5 Wheel 50 feet with 2 turns (QC: 4 PT Plan Problem List Problem List: Activity Tolerance, Functional Strength, Safety, Balance, Gait, Transfer, Bed Mobility Treatment/Plan Treatment Plan: Continue Plan of Care Treatment Plan: Bed Mobility, Concurrent Therapy, Education, Functional Activity Fede, Functional Strength, Group Therapy, Gait, Safety, Therapeutic Exercise, Transfers Treatment Duration: Jun 07, 2018 Frequency: At least 5 of 7 days/Wk (IRF) Estimated Hrs Per Day: 1.5 hours per day Patient and/or Family Agrees t: Yes Safety Risks/Education Patient Education: Gait Training, Transfer Techniques, Correct Positioning, W/ C Management, Safety Issues Teaching Recipient: Patient Teaching Methods: Demonstration, Discussion Response to Teaching: Reinforcement Needed Time/GCodes Time In: 1430 Time Out: 1500 Total Billed Treatment Time: 30 Total Billed Treatment 1 visit [facility] 10' GT 20' CLAU SALAZAR PT May 31, 2018 15:01
--- NOTE | 2018-05-31 15:48 | Speech Therapy Daily Note ---
Speech Daily Progress Note Subjective Date Seen by Provider: May 31, 2018 Time Seen by Provider: 00:30 Patient was pleasant and cooperative. Objective Patient completed memory tasks related to [place] trivia with 80% accuracy given minimal verbal cues. Assessment Assessment Current Status: Good Progress Treatment Plan Continue Plan of Care Communication Comprehension: 3 Expression: 3 Social Cognition Social Interaction: 4 Problem Solvin Memory: 3 Speech Short Term Goals Short Term Goals Short Term Goals 1) Patient will recall information for safety awareness at 90% or greater with minimal cues. 2) Patient will recall new information from memory tasks at 90% accuracy or greater with minimal cues. 3) Patient will follow simple directions within her immediate living environment at 90% or greater with minimal cues. Speech Occupational Health Nurse Supervisor Goals Occupational Health Nurse Supervisor Goals Patient will improve safety awareness and independence with 90% accuracy. Speech-Plan Patient/Family Goals Patient/Family Goals: Patient plans on returning home independently as soon as she is strong enough. Treatment Plan Speech Therapy Treatment Plan: Continue Plan of Care Patient is progressing well. Treatment Duration: Jun 07, 2018 Frequency: 5 times per week Estimated Hrs Per Day: .5 hour per day Rehab Potential: Fair Barriers to Learning: Patient is weak. Pt/Family Agrees to Plan: Yes Safety Risks/Education Teaching Recipient: Patient Teaching Methods: Discussion Response to Teaching: Verbalize Understanding Education Topics Provided: Safety Time Speech Therapy Time In: 13:40 Speech Therapy Time Out: 14:10 Total Billed Time: 30 Billed Treatment Time 1FL[address] May 31, 2018 15:48
[2018-05-31 18:32] VITALS: BP 158/92
[2018-05-31] MEDS: OLANZapine 5 MG (ZyPREXA) TAB PO SCH (21:38)
[2018-05-31] MEDS: DONEPEZIL 10 MG (ARICEPT) TAB PO SCH (21:38)
[2018-05-31] MEDS: ATORVASTATIN 40 MG (LIPITOR) TABLET PO SCH (21:38)
[2018-06-01] MEDS: PROMETHAZINE 25 MG (PHENERGAN) TAB PO SCH ×3 (00:15→16:59)
[2018-06-01 05:43] VITALS: BP 162/92
[2018-06-01] MEDS: MULTIVIT W/MINERALS TAB (THERAGRAN M) PO SCH (06:29)
[2018-06-01] MEDS: LACTOBACILLUS ACIDOPHILUS (PROBIOTIC) CAPSULE PO SCH ×3 (06:29→17:02)
[2018-06-01] MEDS: PANTOPRAZOLE 40 MG (PROTONIX) TAB PO SCH ×2 (06:29→19:54)
[2018-06-01] MEDS: CYANOCOBALAMIN 1,000 MCG (VITAMIN B-12) TABLET PO SCH (06:29)
[2018-06-01] MEDS: ADVAIR HFA 115/21 MCG INHALER 8 GM IH SCH ×2 (06:51→18:59)
[2018-06-01] MEDS: LORATADINE (CLARITIN) 10 MG TAB PO SCH (09:01)
[2018-06-01] MEDS: SUCRALFATE 1 GM (CARAFATE) TAB PO SCH ×3 (09:01→19:55)
[2018-06-01] MEDS: meTOprolol TARTRATE 50 MG (LOPRESSOR) TAB PO SCH ×2 (09:01→19:54)
[2018-06-01] MEDS: ARTIFICAL TEARS 0.4 ML UNIT DOSE (REFRESH PLUS) OU SCH ×3 (09:02→19:57)
[2018-06-01] MEDS: DOCUSATE SODIUM 100 MG (COLACE) CAP PO SCH ×2 (09:02→19:47)
[2018-06-01] MEDS: MELOXICAM 7.5 MG (MOBIC) TABLET PO SCH (09:02)
[2018-06-01] MEDS: DICLOFENAC 1% GEL 100 GM (VOLTAREN) TUBE TOP SCH ×4 (09:03→19:57)
[2018-06-01] MEDS: TRIAMCINOLONE 0.5% CR (KENALOG) 15 GM TUBE TOP SCH ×3 (09:03→19:59)
[2018-06-01] MEDS: ENOXAPARIN 40 MG/0.4 ML (LOVENOX) SYR SC SCH (09:03)
[2018-06-01] MEDS: HYDROcodone/APAP 10 MG/325 MG (LORTAB) TAB PO PRN ×2 (09:05→19:54)
--- NOTE | 2018-06-01 10:42 | Occupational Ther Daily Note ---
OT Current Status-Daily Note Subjective No pain reported. Appearance Pt. agrees to shower. Mental Status/Objective Patient Orientation: Person, Place, Time, Situation Therapy Code Descriptions/Definitions Functional [place] Measure: 0=Not Assessed/NA 4=Minimal Assistance 1=Total Assistance 5=Supervision or Setup 2=Maximal Assistance 6=Modified [place] 3=Moderate Assistance 7=Complete [place] Attachments: Oxygen ADL-Treatment Therapy Code Descriptions/Definitions Functional [place] Measure: 0=Not Assessed/NA 4=Minimal Assistance 1=Total Assistance 5=Supervision or Setup 2=Maximal Assistance 6=Modified [place] 3=Moderate Assistance 7=Complete [place] Therapy Quality Codes: 6 Independent with activity with or without an assistive device 5 Patient requires set up or clean up by helper. Patient completes activity by themselves 4 Supervision or touching assist (CGA). [place] provide cues , steadying assist 3 The helper provides less than half the effort to complete the activity 2 The helper provides more than half the effort to complete the activity 1 Dependent. The helper does all the effort to complete an activity 7 Patient refused to complete or attempt activity 9 The patient did not perform the activity before the current illness or injury 88 Not attempted due to Medical conditions or safety concerns Grooming (FIM): 3 (Pt. is able to brush her teeth while seated in wheelchair at sink, but requires assist to brush her hair.) Oral Hygiene (QC): 3 Bathing (FIM): 3 (Pt. is able to bathe most parts but requires assist to wash feet and rear tabatha area.) Shower/Bathe Self (QC): 3 Upper Body (FIM): 3 (Pt. is able to thread shirt over arms and up over elbows. Requires assist to don over shoulders and head. Pt. is able to pull down in front, but needs assist for back.) Upper Body Dressing (QC): 3 Lower Body Dressing (FIM): 2 (Pt. does attempt to complete dressing with dressing stick and sock aide. Requires assistance with this. Max assist while in stance to meat puller hips and adjust. Pt. attempts to but also has to hold walker.) Lower Body Dressing (QC): 2 On/Off Footwear (QC): 2 Toileting (FIM): 3 (Pt. is able to pull down brief while in stance, but is unable to pull it up. Attempts to cleanse self, but is unable to fully complete.) Toileting Hygiene (QC): 3 Toilet/Commode Transfer (FIM): 4 Toilet Transfer (QC): 4 Shower Transfer(FIM): 2 (Pt. has difficulty standing from shower bench, and requires max assistance to stand.) Education OT Patient Education: Correct positioning, Modified ADL techniques, Progress toward Goal/Update tx plan, Purpose of tx/functional activities, Reviewed precautions, Rehab process, Transfer techniques Teaching Recipient: Patient Teaching Methods: Demonstration Response to Teaching: Verbalize Understanding, Return Demonstration OT Short Term Goals Short Term Goals Time Frame: May 24, 2018 Eating(FIM): 5 Grooming(FIM): 5 Bathing(FIM): 3 Upper Body Dressing(FIM): 5 Lower Body Dressing(FIM): 2 Toileting(FIM): 1 (one person) Transfers (B,C,W/C) (FIM): 3 (met) Toilet/Commode Transfer(FIM): 1 (one person) Additional Short Term Goals: 1-Demonstrate ADL Tasks, 2-Verbalize Understanding , 3-ImproveStrength/Fede 1=Demonstrate adherence to instructed precautions during ADL tasks. 2=Patient will verbalize/demonstrate understanding of assistive devices/ modifications for ADL. 3=Patient will improve strength/tolerance for activity to enable patient to perform ADL's. OT Lithopone Charger Goals Retirement Goals Time Frame: Jun 07, 2018 Eating (FIM): 7 Eating (QC): 6 Groomin Oral Hygiene (QC): 6 Bathing(FIM): 5 Shower/Bathe Self (QC): 5 Upper Body Dressing(FIM): 6 Upper Body Dressing (QC): 6 Lower Body Dressing(FIM): 6 Lower Body Dressing (QC): 6 On/Off Footwear (QC): 6 Toileting(FIM): 6 Toileting Hygiene (QC): 6 Toilet/Commode Transfer(FIM): 6 Toilet/Commode Transfer (QC): 6 Shower Transfer(FIM): 6 Additional Goals: 1-Demonstrate ADL Tasks, 2-Verbalize Understanding, 3- ImproveStrength/Fede 1=Demonstrate adherence to instructed precautions during ADL tasks. 2=Patient will verbalize/demonstrate understanding of assistive devices/ modifications for ADL. 3=Patient will improve strength/tolerance for activity to enable patient to perform ADL's. OT Education/Plan Problem List/Assessment Assessment: Decreased Activ Tolerance, Dependent Transfers, Impaired Bed Mobility, Impaired Funct Balance, Impaired I ADL's, Impaired Self-Care Skills Discharge Recommendations Plan/Recommendations: Continue POC Therapy D/C Recommendations: Home w/ Family Support Equpiment Recommendations-D/C: Hip Kit Treatment Plan/Plan of Care Treatment,Training & Education: Yes Patient would benefit from OT for education, treatment and training to promote independence in ADL's, mobility, safety and/or upper extremity function for ADL' s. Plan of Care: ADL Retraining, Caregiver Training, Functional Mobility, Group Exercise/Act as Ind (education, exercise, activity tolerance, funct mobility, funtional actiities), UE Funct Exercise/Act, UE Neuromus Re-Ed/Coord, W/C Management Training, OTHER (energy conservation education) Treatment Duration: Jun 07, 2018 Frequency: At least 5 of 7 days/Wk (IRF) Estimated Hrs Per Day: 1.5 hours per day Agreement: Yes Rehab Potential: Fair Time/GCodes Start Time: 09:00 Stop Time: 10:00 Total Time Billed (hr/min): 60 Billed Treatment Time 1, ADL x 4 LUIS VLALE OT Jun 01, 2018 10:42
--- NOTE | 2018-06-01 10:57 | Physical Therapy Daily Note ---
PT Daily Note-Current Subjective Pt rates pain 9-10/10. Pt reports she is "sore" all over especially (L) shoulder. Pt agreeable to PT. Pt says she like to walk. Mental Status Patient Orientation: Person, Place, Situation Transfers Therapy Code Descriptions/Definitions Functional [place] Measure: 0=Not Assessed/NA 4=Minimal Assistance 1=Total Assistance 5=Supervision or Setup 2=Maximal Assistance 6=Modified [place] 3=Moderate Assistance 7=Complete [place] Therapy Quality Codes: 6 Independent with activity with or without an assistive device 5 Patient requires set up or clean up by helper. Patient completes activity by themselves 4 Supervision or touching assist (CGA). [place] provide cues , steadying assist 3 The helper provides less than half the effort to complete the activity 2 The helper provides more than half the effort to complete the activity 1 Dependent. The helper does all the effort to complete an activity 7 Patient refused to complete or attempt activity 9 The patient did not perform the activity before the current illness or injury 88 Not attempted due to Medical conditions or safety concerns Transfers SBA Exercises Supine Ex: Ankle pumps, Quad Set, Glut sets, Short Arc Quads Seated Therapy Exercises: Ankle pumps, Long arc quads, Hip flexion, Glut set Seated Reps: 20 NuStep Minutes: 15 NuStep Workload: 1 Treatments Pt practiced w/c mobility 150ft, SBA and f/u of O2 at 2L/min. Pt amb with FWW 2 x 110ft, 1 x 70ft with CGA, f/u of w/c and O2 2L/min. Good speed, no LOB. Assessment Current Status: Good Progress Pt kirby well with rest breaks as needed. Pt finished in dining room, participating in group session. PT Short Term Goals Short Term Goals Time Frame: May 24, 2018 Transfers (B,C,W/C) (FIM): 3 (met) Gait (FIM): 1 (met) Gait Distance Comment: 5' Gait Level of Assist: 4 Gait Assistive Device: Parallel Bars Wheelchair (FIM): 1 Wheelchair Distance: 150'x2 PT County Program Technician Goals County Program Technician Goals PT County Program Technician Goals Time Frame: Jun 07, 2018 Transfers (B,C,W/C) (FIM): 4 Sit to Lying (QC): 4 Lying-Sitting on Side/Bed(QC): 4 Sit to Stand (QC): 4 Rollin Roll Left to Right (QC): 4 Chair/Uno-pc-Yldrt Xfer(QC): 3 Car Transfer (QC): 3 Gait (FIM): 1 Distance: 20' Walk 10 feet (QC): 4 Gait Level of Assist: 4 Gait Assistive Device: FWW Wheelchair (FIM): 2 Distance: 50' Wheelchair Level of Assist: 5 Wheel 50 feet with 2 turns (QC: 4 PT Plan Treatment/Plan Treatment Plan: Continue Plan of Care Treatment Plan: Bed Mobility, Concurrent Therapy, Education, Functional Activity Fede, Functional Strength, Group Therapy, Gait, Safety, Therapeutic Exercise, Transfers Treatment Duration: Jun 07, 2018 Frequency: At least 5 of 7 days/Wk (IRF) Estimated Hrs Per Day: 1.5 hours per day Patient and/or Family Agrees t: Yes Time/GCodes Time In: 1100 Time Out: 1200 Total Billed Treatment Time: 60 Total Billed Treatment 1, gait 30min, Ther ex 30 min GERALDO LEMONS CPTA Jun 01, 2018 10:57
--- NOTE | 2018-06-01 12:30 | Therapy Group Daily Note ---
Therapy Daily Group Note Patient Education Topic Home Safety, Fall Prevention, Exercises, Other List Below Exercises LE Seated Exercise, UE Exercise Other/Notes Pt. seen in group therapy this date for socialization, UE exercise, LE exercise , and education for balance and pain management. Pt. tolerated treatment well. Began treatment with reporting name and verbalizing memory of favorite [place] tradition. Worked on seated exercises for increased endurance and overall strength. Lunch trays came and pt. transferred to table area. Ate with other pt's while therapy provided education for maintaining balance and pain. All needs met after session over. Start Time: 11:00 Stop Time: 12:00 Total Billed Treatment Time: 60 Total Billed Treatment 1, GRP LUIS VALLE OT Jun 01, 2018 12:30
--- NOTE | 2018-06-01 12:49 | Progress Note-Hospitalist ---
Subjective HPI/CC On Admission Date Seen by Provider: Jun 01, 2018 Time Seen by Provider: 12:15 CC: Debility HPI: This is a 58-year-old white female clinic patient of Dr. Ward known to me from ICU stay on a ventilator 8 weeks ago he was unable to be weaned so she was transferred to [place] and has had a complicated course including trach placement for long-term vent use and PEG tube placement. She has been sent to inpatient rehabilitation for further recovery prior to discharge from facility. She reports nausea so I have ordered scopolamine patch and Zofran and is now from 4-8 mg every 6 hours. I review home medication and current labs and vitals. She has no complaints except for nausea. Subjective/Events-last exam Patient getting stronger every day No issues currently Chronic pain is always an issue Eating and drinking well Has no concerns Review of Systems General: Fatigue Objective Exam Vital Signs Vital Signs Date Time Temp Pulse Resp B/P (MAP) Pulse Ox O2 Delivery O2 Flow Rate FiO2 06/01/18 08:46 Nasal Cannula 3.00 06/01/18 06:51 94 06/01/18 05:43 99.4 82 16 162/92 (115) Capillary Refill : General Appearance: No Apparent Distress, WD/WN, Chronically ill, Obese Respiratory: Chest Non Tender, Lungs Clear, Normal Breath Sounds, No Accessory Muscle Use, No Respiratory Distress Cardiovascular: Regular Rate, Rhythm, No Edema, No Gallop, No JVD, No Murmur, Normal Peripheral Pulses Neurologic/Psychiatric: Alert, Oriented x3, No Motor/Sensory Deficits, Depressed Affect Skin: Normal Color, Warm/Dry Results/Procedures Lab Patient resulted labs reviewed. Assessment/Plan Assessment and Plan Assess & Plan/Chief Complaint Assessment: Severe debility following critical illness and vent dependence Trach now DC PEG tube now DC Nausea resolved Mental illness precluding fast recovery Current smoker COPD Status post pneumonia Plan: Monitor closely Inpatient rehabilitation protocol with therapies Diagnosis/Problems Diagnosis/Problems (1) Myopathy Status: Acute (2) Nausea Status: Resolved Resolution Date/Time: 05/25/18 @ 14:29 (3) Chronic mental illness Status: Chronic (4) Personal history of supraventricular tachycardia Status: Chronic (5) Smoker Status: Chronic (6) Hypertension Status: Chronic Qualifiers: Hypertension type: essential hypertension Qualified Codes: I10 - Essential (primary) hypertension (7) Bipolar disorder Status: Chronic Qualifiers: Active/Remission status: remission status unspecified Qualified Codes: F31.9 - Bipolar disorder, unspecified (8) COPD (chronic obstructive pulmonary disease) Status: Chronic Qualifiers: COPD type: unspecified COPD Qualified Codes: J44.9 - Chronic obstructive pulmonary disease, unspecified Clinical Quality Measures DVT/VTE Risk/Contraindication: Risk Factor Score Per Nursin RFS Level Per Nursing on Admit: 4+=Very High SAMANTHA COLLIER DO Jun 01, 2018 12:49
[2018-06-01 17:06] VITALS: BP 154/83
[2018-06-01] MEDS: ATORVASTATIN 40 MG (LIPITOR) TABLET PO SCH (19:54)
[2018-06-01] MEDS: DONEPEZIL 10 MG (ARICEPT) TAB PO SCH (19:54)
[2018-06-01] MEDS: OLANZapine 5 MG (ZyPREXA) TAB PO SCH (19:55)
[2018-06-02] MEDS: PROMETHAZINE 25 MG (PHENERGAN) TAB PO SCH ×3 (00:40→16:49)
[2018-06-02 05:11] VITALS: BP 140/80
[2018-06-02] MEDS: MULTIVIT W/MINERALS TAB (THERAGRAN M) PO SCH (06:34)
[2018-06-02] MEDS: LACTOBACILLUS ACIDOPHILUS (PROBIOTIC) CAPSULE PO SCH ×3 (06:34→17:33)
[2018-06-02] MEDS: CYANOCOBALAMIN 1,000 MCG (VITAMIN B-12) TABLET PO SCH (06:34)
[2018-06-02] MEDS: PANTOPRAZOLE 40 MG (PROTONIX) TAB PO SCH ×2 (06:34→20:55)
[2018-06-02] MEDS: ADVAIR HFA 115/21 MCG INHALER 8 GM IH SCH ×2 (08:26→22:57)
[2018-06-02] MEDS: DOCUSATE SODIUM 100 MG (COLACE) CAP PO SCH ×2 (08:42→21:00)
[2018-06-02] MEDS: LORATADINE (CLARITIN) 10 MG TAB PO SCH (08:42)
[2018-06-02] MEDS: meTOprolol TARTRATE 50 MG (LOPRESSOR) TAB PO SCH ×2 (08:42→20:57)
[2018-06-02] MEDS: MELOXICAM 7.5 MG (MOBIC) TABLET PO SCH (08:42)
[2018-06-02] MEDS: SUCRALFATE 1 GM (CARAFATE) TAB PO SCH ×3 (08:42→20:56)
[2018-06-02] MEDS: ENOXAPARIN 40 MG/0.4 ML (LOVENOX) SYR SC SCH (08:43)
[2018-06-02] MEDS: DICLOFENAC 1% GEL 100 GM (VOLTAREN) TUBE TOP SCH ×4 (09:32→21:04)
[2018-06-02] MEDS: TRIAMCINOLONE 0.5% CR (KENALOG) 15 GM TUBE TOP SCH ×3 (09:33→21:00)
[2018-06-02] MEDS: ARTIFICAL TEARS 0.4 ML UNIT DOSE (REFRESH PLUS) OU SCH ×3 (09:33→21:00)
[2018-06-02] MEDS: HYDROcodone/APAP 10 MG/325 MG (LORTAB) TAB PO PRN ×2 (09:37→20:59)
[2018-06-02] MEDS: SCOPOLAMINE 1.5 MG (TRANSDERM-SCOP) PATCH TD SCH (11:42)
[2018-06-02] MEDS: PATCH REMOVAL TP SCH (11:42)
[2018-06-02 16:43] VITALS: BP 129/84
--- NOTE | 2018-06-02 19:32 | NUR ---
report received from PUJA BLEVINS, assume care of pt
[2018-06-02] MEDS: OLANZapine 5 MG (ZyPREXA) TAB PO SCH (20:55)
[2018-06-02] MEDS: ATORVASTATIN 40 MG (LIPITOR) TABLET PO SCH (20:56)
[2018-06-02] MEDS: DONEPEZIL 10 MG (ARICEPT) TAB PO SCH (20:56)
--- NOTE | 2018-06-02 20:59 | NUR ---
c/o pain generalized 10/10 on numeric scale, lortab 10 2 tabs po given
--- NOTE | 2018-06-02 21:00 | NUR ---
assessments & interventions, see assessments & interventions, back to bed with 1 person assist & walker
--- NOTE | 2018-06-02 21:25 | NUR ---
pain level 4/10 on numeric scale
[2018-06-03] MEDS: PROMETHAZINE 25 MG (PHENERGAN) TAB PO SCH ×4 (00:01→23:00)
[2018-06-03] MEDS: PANTOPRAZOLE 40 MG (PROTONIX) TAB PO SCH ×2 (06:20→20:25)
[2018-06-03] MEDS: CYANOCOBALAMIN 1,000 MCG (VITAMIN B-12) TABLET PO SCH (06:20)
[2018-06-03] MEDS: LACTOBACILLUS ACIDOPHILUS (PROBIOTIC) CAPSULE PO SCH ×3 (06:20→16:42)
[2018-06-03] MEDS: MULTIVIT W/MINERALS TAB (THERAGRAN M) PO SCH (06:20)
[2018-06-03 06:55] VITALS: BP 154/86
--- NOTE | 2018-06-03 07:30 | NUR ---
report given to XAVI BLEVINS
--- NOTE | 2018-06-03 08:34 | Physical Therapy Daily Note ---
PT Daily Note-Current Subjective Pt doesn't want to walk outside the room until she has a shower and gets dressed. Transfers Therapy Code Descriptions/Definitions Functional [place] Measure: 0=Not Assessed/NA 4=Minimal Assistance 1=Total Assistance 5=Supervision or Setup 2=Maximal Assistance 6=Modified [place] 3=Moderate Assistance 7=Complete [place] Therapy Quality Codes: 6 Independent with activity with or without an assistive device 5 Patient requires set up or clean up by helper. Patient completes activity by themselves 4 Supervision or touching assist (CGA). [place] provide cues , steadying assist 3 The helper provides less than half the effort to complete the activity 2 The helper provides more than half the effort to complete the activity 1 Dependent. The helper does all the effort to complete an activity 7 Patient refused to complete or attempt activity 9 The patient did not perform the activity before the current illness or injury 88 Not attempted due to Medical conditions or safety concerns Sit to/from Stand: 5 Exercises Seated Therapy Exercises: Ankle pumps, Sit to stand, Long arc quads, Chair press-ups, Hip flexion, Kicking activity, Hip abd/add Seated Reps: 20 Standing: Heel/toe raises, 3 way Ex=Flex, Abd, Ext, Marching Standing Reps: 20 Assessment Performed seated and standing exercises x 20 reps with seated/standing rest as needed to regain control of breathing. PT Short Term Goals Short Term Goals Time Frame: May 24, 2018 Transfers (B,C,W/C) (FIM): 3 (met) Gait (FIM): 1 (met) Gait Distance Comment: 5' Gait Level of Assist: 4 Gait Assistive Device: Parallel Bars Wheelchair (FIM): 1 Wheelchair Distance: 150'x2 PT Shelter Goals Mammal Keeper Goals PT Mammal Keeper Goals Time Frame: Jun 07, 2018 Transfers (B,C,W/C) (FIM): 4 Sit to Lying (QC): 4 Lying-Sitting on Side/Bed(QC): 4 Sit to Stand (QC): 4 Rollin Roll Left to Right (QC): 4 Chair/Pck-hk-Eqsuz Xfer(QC): 3 Car Transfer (QC): 3 Gait (FIM): 1 Distance: 20' Walk 10 feet (QC): 4 Gait Level of Assist: 4 Gait Assistive Device: FWW Wheelchair (FIM): 2 Distance: 50' Wheelchair Level of Assist: 5 Wheel 50 feet with 2 turns (QC: 4 PT Plan Treatment/Plan Treatment Plan: Continue Plan of Care Treatment Plan: Bed Mobility, Concurrent Therapy, Education, Functional Activity Fede, Functional Strength, Group Therapy, Gait, Safety, Therapeutic Exercise, Transfers Treatment Duration: Jun 07, 2018 Frequency: At least 5 of 7 days/Wk (IRF) Estimated Hrs Per Day: 1.5 hours per day Patient and/or Family Agrees t: Yes Time/GCodes Time In: 800 Time Out: 830 Total Billed Treatment Time: 30 Total Billed Treatment visit, exercise 30 min BORA GUERRERO PT Jun 03, 2018 08:34
[2018-06-03] MEDS: DOCUSATE SODIUM 100 MG (COLACE) CAP PO SCH ×2 (08:55→20:30)
[2018-06-03] MEDS: SUCRALFATE 1 GM (CARAFATE) TAB PO SCH ×3 (08:55→20:26)
[2018-06-03] MEDS: LORATADINE (CLARITIN) 10 MG TAB PO SCH (08:55)
[2018-06-03] MEDS: MELOXICAM 7.5 MG (MOBIC) TABLET PO SCH (08:55)
[2018-06-03] MEDS: ARTIFICAL TEARS 0.4 ML UNIT DOSE (REFRESH PLUS) OU SCH ×3 (08:56→20:27)
[2018-06-03] MEDS: meTOprolol TARTRATE 50 MG (LOPRESSOR) TAB PO SCH ×2 (08:56→20:25)
[2018-06-03] MEDS: ENOXAPARIN 40 MG/0.4 ML (LOVENOX) SYR SC SCH (08:59)
--- NOTE | 2018-06-03 09:00 | NUR ---
STATES NO FURTHER NAUSEA WITH BEING ON SCHEDULED PHENERGAN. CONTINUED LEFT SHOULDER PAIN WITH RELIEF FROM LORTAB.
[2018-06-03] MEDS: DICLOFENAC 1% GEL 100 GM (VOLTAREN) TUBE TOP SCH ×4 (09:04→20:29)
[2018-06-03] MEDS: TRIAMCINOLONE 0.5% CR (KENALOG) 15 GM TUBE TOP SCH ×3 (09:04→20:29)
[2018-06-03] MEDS: HYDROcodone/APAP 10 MG/325 MG (LORTAB) TAB PO PRN ×3 (09:47→23:00)
--- NOTE | 2018-06-03 10:00 | Physical Therapy Daily Note ---
PT Daily Note-Current Mental Status Patient Orientation: Normal For Age Transfers Therapy Code Descriptions/Definitions Functional [place] Measure: 0=Not Assessed/NA 4=Minimal Assistance 1=Total Assistance 5=Supervision or Setup 2=Maximal Assistance 6=Modified [place] 3=Moderate Assistance 7=Complete [place] Therapy Quality Codes: 6 Independent with activity with or without an assistive device 5 Patient requires set up or clean up by helper. Patient completes activity by themselves 4 Supervision or touching assist (CGA). [place] provide cues , steadying assist 3 The helper provides less than half the effort to complete the activity 2 The helper provides more than half the effort to complete the activity 1 Dependent. The helper does all the effort to complete an activity 7 Patient refused to complete or attempt activity 9 The patient did not perform the activity before the current illness or injury 88 Not attempted due to Medical conditions or safety concerns Sit to Stand (QC): 5 Pt able to perform sit to stand transfers with SBA. Needed several attempts to stand from standard height chair once fatigued. Gait Training Gait (FIM): 5 Distance: 200 Gait Level of Assist: 5 Gait Persons Needed: 1 Gait Assistive Device: FWW Ambulated distances of 125ft, 200ft, 100ft, 200ft all with oxygen at 3L/min FWW and SBA. Oxygen sats dropped from 97 at rest to 91 after exertion, recovered to 97% after 1-2min seated rest. Assessment Current Status: Good Progress Pt making gains in gait stability and activity tolerance. Gait limited by two factors, SOB and fatigue in the LEs. She will benefit from continued therapy. PT Short Term Goals Short Term Goals Time Frame: May 24, 2018 Transfers (B,C,W/C) (FIM): 3 (met) Gait (FIM): 1 (met) Gait Distance Comment: 5' Gait Level of Assist: 4 Gait Assistive Device: Parallel Bars Wheelchair (FIM): 1 Wheelchair Distance: 150'x2 PT X Ray Consultant Goals Mcfp Goals PT Mcfp Goals Time Frame: Jun 07, 2018 Transfers (B,C,W/C) (FIM): 4 Sit to Lying (QC): 4 Lying-Sitting on Side/Bed(QC): 4 Sit to Stand (QC): 4 Rollin Roll Left to Right (QC): 4 Chair/Uzs-sp-Exzhx Xfer(QC): 3 Car Transfer (QC): 3 Gait (FIM): 1 Distance: 20' Walk 10 feet (QC): 4 Gait Level of Assist: 4 Gait Assistive Device: FWW Wheelchair (FIM): 2 Distance: 50' Wheelchair Level of Assist: 5 Wheel 50 feet with 2 turns (QC: 4 PT Plan Treatment/Plan Treatment Plan: Continue Plan of Care Treatment Plan: Bed Mobility, Concurrent Therapy, Education, Functional Activity Fede, Functional Strength, Group Therapy, Gait, Safety, Therapeutic Exercise, Transfers Treatment Duration: Jun 07, 2018 Frequency: At least 5 of 7 days/Wk (IRF) Estimated Hrs Per Day: 1.5 hours per day Patient and/or Family Agrees t: Yes Time/GCodes Time In: 930 Time Out: 1000 Total Billed Treatment Time: 30 Total Billed Treatment visit, gait 30 min BORA GUERRERO PT Jun 03, 2018 10:00
[2018-06-03] MEDS: ADVAIR HFA 115/21 MCG INHALER 8 GM IH SCH ×2 (10:16→20:21)
--- NOTE | 2018-06-03 10:33 | Speech Therapy Daily Note ---
Speech Daily Progress Note Subjective Date Seen by Provider: Jun 03, 2018 Time Seen by Provider: 00:30 Patient was alert and in a pleasant mood. Objective Patient completed seek and find activities with minimal cues at 90% Assessment Assessment Current Status: Good Progress Treatment Plan Continue Plan of Care Communication Comprehension: 3 Expression: 3 Social Cognition Social Interaction: 4 Problem Solvin Memory: 3 Speech Short Term Goals Short Term Goals Short Term Goals 1) Patient will recall information for safety awareness at 90% or greater with minimal cues. 2) Patient will recall new information from memory tasks at 90% accuracy or greater with minimal cues. 3) Patient will follow simple directions within her immediate living environment at 90% or greater with minimal cues. Speech Lipstick Molder Goals Lipstick Molder Goals Patient will improve safety awareness and independence with 90% accuracy. Speech-Plan Patient/Family Goals Patient/Family Goals: Patient will return home independently when she is able post rehab. Treatment Plan Speech Therapy Treatment Plan: Continue Plan of Care Patient has made very good progress with skilled ST services. Treatment Duration: Jun 07, 2018 Frequency: 5 times per week Estimated Hrs Per Day: .5 hour per day Rehab Potential: Fair Barriers to Learning: Patient continues to exhibit weakness for completing daily tasks. Pt/Family Agrees to Plan: Yes Safety Risks/Education Teaching Recipient: Patient Teaching Methods: Discussion Response to Teaching: Verbalize Understanding Education Topics Provided: Safety within her immediate environment. Time Speech Therapy Time In: 08:30 Speech Therapy Time Out: 09:00 Total Billed Time: 30 Billed Treatment Time 1[address] Jun 03, 2018 10:33
--- NOTE | 2018-06-03 11:20 | NUR ---
Pastoral Care Visit, pt was in commons area with other pts preparing to eat. I had collective prayer with group.
--- NOTE | 2018-06-03 11:56 | Progress Note-Hospitalist ---
Subjective HPI/CC On Admission Date Seen by Provider: Jun 03, 2018 Time Seen by Provider: 10:15 CC: Debility HPI: This is a 58-year-old white female clinic patient of Dr. Ward known to me from ICU stay on a ventilator 8 weeks ago he was unable to be weaned so she was transferred to [place] and has had a complicated course including trach placement for long-term vent use and PEG tube placement. She has been sent to inpatient rehabilitation for further recovery prior to discharge from facility. She reports nausea so I have ordered scopolamine patch and Zofran and is now from 4-8 mg every 6 hours. I review home medication and current labs and vitals. She has no complaints except for nausea. Subjective/Events-last exam Patient doing well [place] a little bit more short of breath when walking around today Lungs are clear Receiving nebulizer treatments Ordered incentive spirometer for her to expand her lungs and improved lung function No nausea Bowels are moving Review of Systems General: Fatigue Pulmonary: Cough Objective Exam Vital Signs Vital Signs Date Time Temp Pulse Resp B/P (MAP) Pulse Ox O2 Delivery O2 Flow Rate FiO2 06/03/18 06:55 97.3 78 16 154/86 (108) 94 Nasal Cannula 3.00 Capillary Refill : General Appearance: No Apparent Distress, WD/WN, Chronically ill Respiratory: Chest Non Tender, Lungs Clear, Normal Breath Sounds, No Accessory Muscle Use, No Respiratory Distress Cardiovascular: Regular Rate, Rhythm, No Edema, No Gallop, No JVD, No Murmur, Normal Peripheral Pulses Neurologic/Psychiatric: Alert, Oriented x3, No Motor/Sensory Deficits, Depressed Affect Results/Procedures Lab Patient resulted labs reviewed. Assessment/Plan Assessment and Plan Assess & Plan/Chief Complaint Assessment: Severe debility following critical illness and vent dependence Trach now DC PEG tube now DC Nausea resolved Mental illness precluding fast recovery Current smoker COPD Status post pneumonia Plan: Monitor closely Inpatient rehabilitation protocol with therapies Incentive spirometer Diagnosis/Problems Diagnosis/Problems (1) Myopathy Status: Acute (2) Nausea Status: Resolved Resolution Date/Time: 05/25/18 @ 14:29 (3) Chronic mental illness Status: Chronic (4) Personal history of supraventricular tachycardia Status: Chronic (5) Smoker Status: Chronic (6) Hypertension Status: Chronic Qualifiers: Hypertension type: essential hypertension Qualified Codes: I10 - Essential (primary) hypertension (7) Bipolar disorder Status: Chronic Qualifiers: Active/Remission status: remission status unspecified Qualified Codes: F31.9 - Bipolar disorder, unspecified (8) COPD (chronic obstructive pulmonary disease) Status: Chronic Qualifiers: COPD type: unspecified COPD Qualified Codes: J44.9 - Chronic obstructive pulmonary disease, unspecified Clinical Quality Measures DVT/VTE Risk/Contraindication: Risk Factor Score Per Nursin RFS Level Per Nursing on Admit: 4+=Very High SAMANTHA COLLIER DO Jun 03, 2018 11:56
--- NOTE | 2018-06-03 12:51 | Occupational Ther Daily Note ---
OT Current Status-Daily Note Subjective No pain reported. Appearance Pt. up in wheelchair. Agrees to shower. Mental Status/Objective Patient Orientation: Person, Place, Time, Situation Therapy Code Descriptions/Definitions Functional [place] Measure: 0=Not Assessed/NA 4=Minimal Assistance 1=Total Assistance 5=Supervision or Setup 2=Maximal Assistance 6=Modified [place] 3=Moderate Assistance 7=Complete [place] ADL-Treatment Therapy Code Descriptions/Definitions Functional [place] Measure: 0=Not Assessed/NA 4=Minimal Assistance 1=Total Assistance 5=Supervision or Setup 2=Maximal Assistance 6=Modified [place] 3=Moderate Assistance 7=Complete [place] Therapy Quality Codes: 6 Independent with activity with or without an assistive device 5 Patient requires set up or clean up by helper. Patient completes activity by themselves 4 Supervision or touching assist (CGA). [place] provide cues , steadying assist 3 The helper provides less than half the effort to complete the activity 2 The helper provides more than half the effort to complete the activity 1 Dependent. The helper does all the effort to complete an activity 7 Patient refused to complete or attempt activity 9 The patient did not perform the activity before the current illness or injury 88 Not attempted due to Medical conditions or safety concerns Grooming (FIM): 4 (Pt. able to brush teeth seated at sink but unable to brush hair.) Oral Hygiene (QC): 4 Bathing (FIM): 4 (Pt. requires assistance bathing [place] area. Used LH sponge to wash feet.) Shower/Bathe Self (QC): 4 Upper Body (FIM): 3 Upper Body Dressing (QC): 3 Lower Body Dressing (FIM): 3 (Attempted to use DS but still needed assistance with all parts.) Lower Body Dressing (QC): 3 On/Off Footwear (QC): 2 Transfers (B, C, W/C) (FIM): 4 (Min assist to stand from chair in shower. Used [facility] this date.) Shower Transfer(FIM): 4 Education OT Patient Education: Correct positioning, Modified ADL techniques, Progress toward Goal/Update tx plan, Purpose of tx/functional activities, Reviewed precautions, Rehab process, Transfer techniques Teaching Recipient: Patient Teaching Methods: Demonstration, Discussion Response to Teaching: Verbalize Understanding, Return Demonstration OT Short Term Goals Short Term Goals Time Frame: May 24, 2018 Eating(FIM): 5 Grooming(FIM): 5 Bathing(FIM): 3 Upper Body Dressing(FIM): 5 Lower Body Dressing(FIM): 2 Toileting(FIM): 1 (one person) Transfers (B,C,W/C) (FIM): 3 (met) Toilet/Commode Transfer(FIM): 1 (one person) Additional Short Term Goals: 1-Demonstrate ADL Tasks, 2-Verbalize Understanding , 3-ImproveStrength/Fede 1=Demonstrate adherence to instructed precautions during ADL tasks. 2=Patient will verbalize/demonstrate understanding of assistive devices/ modifications for ADL. 3=Patient will improve strength/tolerance for activity to enable patient to perform ADL's. OT Senior Quality Analyst Goals Senior Quality Analyst Goals Time Frame: Jun 07, 2018 Eating (FIM): 7 Eating (QC): 6 Groomin Oral Hygiene (QC): 6 Bathing(FIM): 5 Shower/Bathe Self (QC): 5 Upper Body Dressing(FIM): 6 Upper Body Dressing (QC): 6 Lower Body Dressing(FIM): 6 Lower Body Dressing (QC): 6 On/Off Footwear (QC): 6 Toileting(FIM): 6 Toileting Hygiene (QC): 6 Toilet/Commode Transfer(FIM): 6 Toilet/Commode Transfer (QC): 6 Shower Transfer(FIM): 6 Additional Goals: 1-Demonstrate ADL Tasks, 2-Verbalize Understanding, 3- ImproveStrength/Fede 1=Demonstrate adherence to instructed precautions during ADL tasks. 2=Patient will verbalize/demonstrate understanding of assistive devices/ modifications for ADL. 3=Patient will improve strength/tolerance for activity to enable patient to perform ADL's. OT Education/Plan Problem List/Assessment Assessment: Decreased Activ Tolerance, Decreased UE Strength, Dependent Transfers, Impaired Bed Mobility, Impaired I ADL's, Impaired Self-Care Skills, Restricted Funct UE ROM Discharge Recommendations Plan/Recommendations: Continue POC Therapy D/C Recommendations: Home w/ Family Support, Occupational Therapy Home Care Treatment Plan/Plan of Care Treatment,Training & Education: Yes Patient would benefit from OT for education, treatment and training to promote independence in ADL's, mobility, safety and/or upper extremity function for ADL' s. Plan of Care: ADL Retraining, Caregiver Training, Functional Mobility, Group Exercise/Act as Ind (education, exercise, activity tolerance, funct mobility, funtional actiities), UE Funct Exercise/Act, UE Neuromus Re-Ed/Coord, W/C Management Training, OTHER (energy conservation education) Treatment Duration: Jun 07, 2018 Frequency: At least 5 of 7 days/Wk (IRF) Estimated Hrs Per Day: 1.5 hours per day Agreement: Yes Rehab Potential: Fair Time/GCodes Start Time: 10:45 Stop Time: 11:30 Total Time Billed (hr/min): 45 Billed Treatment Time 1, ADL x 3 LUIS VALLE OT Jun 03, 2018 12:51
--- NOTE | 2018-06-03 13:09 | Therapy Group Daily Note ---
Therapy Daily Group Note Other/Notes Patients had group therapy in the common area of rehab today. Each patient ambulated or was transported to the common area of rehab and sat at tables that were together so everyone could see and hear each other. Patients had to introduce themselves, state where they were from, and answer a question involving memory and association. Patients then participated in ermelinda trivia and then participated in patient led exercises. Each patient then ambulated or was transported to their room and put into bed or chair with nurse call, phone, tray, and alarm on if needed. Start Time: 11:30 Stop Time: 12:45 Total Billed Treatment Time: 75 Total Billed Treatment 1 visit GRP 75' CLAU SALAZAR PT Jun 03, 2018 13:09
[2018-06-03 16:57] VITALS: BP 175/95
[2018-06-03] MEDS: DONEPEZIL 10 MG (ARICEPT) TAB PO SCH (20:26)
[2018-06-03] MEDS: ATORVASTATIN 40 MG (LIPITOR) TABLET PO SCH (20:26)
[2018-06-03] MEDS: OLANZapine 5 MG (ZyPREXA) TAB PO SCH (20:27)
[2018-06-04 06:53] VITALS: BP 159/84
[2018-06-04] MEDS: CYANOCOBALAMIN 1,000 MCG (VITAMIN B-12) TABLET PO SCH (06:55)
[2018-06-04] MEDS: LACTOBACILLUS ACIDOPHILUS (PROBIOTIC) CAPSULE PO SCH ×3 (06:55→17:35)
[2018-06-04] MEDS: HYDROcodone/APAP 10 MG/325 MG (LORTAB) TAB PO PRN ×2 (06:55→17:35)
[2018-06-04] MEDS: PANTOPRAZOLE 40 MG (PROTONIX) TAB PO SCH ×2 (06:55→20:59)
[2018-06-04] MEDS: MULTIVIT W/MINERALS TAB (THERAGRAN M) PO SCH (06:55)
[2018-06-04] MEDS: meTOprolol TARTRATE 50 MG (LOPRESSOR) TAB PO SCH ×2 (08:30→20:59)
[2018-06-04] MEDS: PROMETHAZINE 25 MG (PHENERGAN) TAB PO SCH ×3 (08:30→23:13)
[2018-06-04] MEDS: SUCRALFATE 1 GM (CARAFATE) TAB PO SCH ×3 (08:31→20:57)
[2018-06-04] MEDS: MELOXICAM 7.5 MG (MOBIC) TABLET PO SCH (08:31)
[2018-06-04] MEDS: LORATADINE (CLARITIN) 10 MG TAB PO SCH (08:31)
[2018-06-04] MEDS: ARTIFICAL TEARS 0.4 ML UNIT DOSE (REFRESH PLUS) OU SCH ×3 (08:31→21:00)
[2018-06-04] MEDS: DOCUSATE SODIUM 100 MG (COLACE) CAP PO SCH ×2 (08:31→21:00)
[2018-06-04] MEDS: DICLOFENAC 1% GEL 100 GM (VOLTAREN) TUBE TOP SCH ×4 (08:32→21:00)
[2018-06-04] MEDS: ENOXAPARIN 40 MG/0.4 ML (LOVENOX) SYR SC SCH (08:32)
[2018-06-04] MEDS: TRIAMCINOLONE 0.5% CR (KENALOG) 15 GM TUBE TOP SCH ×3 (08:33→21:00)
--- NOTE | 2018-06-04 12:38 | Progress Note-Hospitalist ---
Subjective HPI/CC On Admission Date Seen by Provider: Jun 04, 2018 Time Seen by Provider: 11:30 CC: Debility HPI: This is a 58-year-old white female clinic patient of Dr. Ward known to me from ICU stay on a ventilator 8 weeks ago he was unable to be weaned so she was transferred to [place] and has had a complicated course including trach placement for long-term vent use and PEG tube placement. She has been sent to inpatient rehabilitation for further recovery prior to discharge from facility. She reports nausea so I have ordered scopolamine patch and Zofran and is now from 4-8 mg every 6 hours. I review home medication and current labs and vitals. She has no complaints except for nausea. Subjective/Events-last exam Patient doing well Checked meds and labs using IS Decreased dyspnea Objective Exam Vital Signs Vital Signs Date Time Temp Pulse Resp B/P (MAP) Pulse Ox O2 Delivery O2 Flow Rate FiO2 06/04/18 08:00 Nasal Cannula 3.00 06/04/18 06:53 96.8 79 18 159/84 (109) 97 Capillary Refill : General Appearance: No Apparent Distress, WD/WN, Chronically ill, Obese Respiratory: Chest Non Tender, Lungs Clear, Normal Breath Sounds, No Accessory Muscle Use, No Respiratory Distress Cardiovascular: Regular Rate, Rhythm, No Edema, No Gallop, No JVD, No Murmur, Normal Peripheral Pulses Neurologic/Psychiatric: Alert, Oriented x3, No Motor/Sensory Deficits, Normal Mood/Affect Results/Procedures Lab Patient resulted labs reviewed. Assessment/Plan Assessment and Plan Assess & Plan/Chief Complaint Assessment: Severe debility following critical illness and vent dependence Trach now DC PEG tube now DC Nausea resolved Mental illness precluding fast recovery Current smoker COPD Status post pneumonia Plan: Monitor closely Inpatient rehabilitation protocol with therapies Incentive spirometer Diagnosis/Problems Diagnosis/Problems (1) Myopathy Status: Acute (2) Nausea Status: Resolved Resolution Date/Time: 05/25/18 @ 14:29 (3) Chronic mental illness Status: Chronic (4) Personal history of supraventricular tachycardia Status: Chronic (5) Smoker Status: Chronic (6) Hypertension Status: Chronic Qualifiers: Hypertension type: essential hypertension Qualified Codes: I10 - Essential (primary) hypertension (7) Bipolar disorder Status: Chronic Qualifiers: Active/Remission status: remission status unspecified Qualified Codes: F31.9 - Bipolar disorder, unspecified (8) COPD (chronic obstructive pulmonary disease) Status: Chronic Qualifiers: COPD type: unspecified COPD Qualified Codes: J44.9 - Chronic obstructive pulmonary disease, unspecified Clinical Quality Measures DVT/VTE Risk/Contraindication: Risk Factor Score Per Nursin RFS Level Per Nursing on Admit: 4+=Very High SAMANTHA COLLIER DO Jun 04, 2018 12:38
[2018-06-04] MEDS: ADVAIR HFA 115/21 MCG INHALER 8 GM IH SCH ×2 (14:31→22:08)
[2018-06-04 17:58] VITALS: BP 137/81
[2018-06-04] MEDS: OLANZapine 5 MG (ZyPREXA) TAB PO SCH (20:58)
[2018-06-04] MEDS: DONEPEZIL 10 MG (ARICEPT) TAB PO SCH (20:58)
[2018-06-04] MEDS: ATORVASTATIN 40 MG (LIPITOR) TABLET PO SCH (20:59)
[2018-06-05 05:03] VITALS: BP 143/80
[2018-06-05] MEDS: PANTOPRAZOLE 40 MG (PROTONIX) TAB PO SCH ×2 (06:28→19:59)
[2018-06-05] MEDS: MULTIVIT W/MINERALS TAB (THERAGRAN M) PO SCH (06:28)
[2018-06-05] MEDS: LACTOBACILLUS ACIDOPHILUS (PROBIOTIC) CAPSULE PO SCH ×3 (06:28→16:55)
[2018-06-05] MEDS: CYANOCOBALAMIN 1,000 MCG (VITAMIN B-12) TABLET PO SCH (06:28)
[2018-06-05] MEDS: ADVAIR HFA 115/21 MCG INHALER 8 GM IH SCH (06:44)
--- NOTE | 2018-06-05 08:45 | NUR ---
Dr. Ward to see patient. New orders obtained for UA with culture if indicated and O2 Titration.
--- NOTE | 2018-06-05 08:45 | Progress Note (SOAP) ---
Subjective Time Seen by a Provider: 08:44 Subjective/Events-last exam Patient improving. To titrate to see if we can get off oxygen. Patient having no problems breathing. Patient getting around better Objective Exam Vital Signs Date Time Temp Pulse Resp B/P (MAP) Pulse Ox O2 Delivery O2 Flow Rate FiO2 06/05/18 06:45 97 Nasal Cannula 1.00 06/05/18 05:03 97.8 83 16 143/80 (101) 91 Room Air 06/04/18 22:08 96 Nasal Cannula 1.00 06/04/18 20:41 Nasal Cannula 3.00 06/04/18 17:58 97.9 82 20 137/81 (99) 100 Nasal Cannula 3.00 I & O 06/05/18 07:00 Intake Total 1560 ml Balance 1560 ml Capillary Refill : General Appearance: No Apparent Distress, WD/WN Results Lab Microbiology 05/25/18 Urine Culture - Final, Complete Pseudomonas aeruginosa Enterococcus faecium Assessment/Plan Assessment/Plan Assess & Plan/Chief Complaint Myopathy. COPD. Morbid obesity. Bipolar. Anxiety. Depression. Psoriasis. On ventilator. PEG tube removed. Coronary artery disease. GERD. Hypothyroid. Morbid obesity. . 05/21/18. Myopathy. COPD. Morbid obesity. Bipolar. Anxiety. Depression. Psoriasis. Coronary artery disease. Hypothyroid. Morbid obesity. Patient states she's working hard. . 05/22/18. Patient feeling good today. CT of the chest may showpulmonary emboli. COPD. Morbid obesity. Bipolar. Psoriasis. Coronary artery disease Hypothyroid. . 05/23/18. Trach extubated. Patient breathing good. V/Q scan negative for pulmonary embolism. Morbid obesity. Psoriasis. Coronary artery disease. Hypothyroid. Patient feel she is improving. . 05/24/18. Morbid obesity. Psoriasis. Disuse myopathy. Coronary artery disease. Bipolar. Hypothyroid. Current . Disuse myopathy. Psoriasis. Coronary artery disease. Bipolar. Hypothyroid. Nauseousness. To add Phenergan. . 05/28/18. Disuse myopathy. Psoriasis. Bipolar. Coronary artery disease. Hypothyroid. 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 . 05/29/18. Disuse myopathy psoriasis. Bipolar. CAD. Hypothyroid. Patient feeling good.. . 05/31/18. Disuse myopathy. Psoriasis. Bipolar. CAD. Hypothyroid patient walking good with walker. Patient seen yesterday area . 06/05/18. Disuse myopathy. Psoriasis. Bipolar. UTI. CAD. Patient starting to get around better. Trying to titrate off oxygen Clinical Quality Measures DVT/VTE Risk/Contraindication: Risk Factor Score Per Nursin RFS Level Per Nursing on Admit: 4+=Very High JOCELYNE MEI DO Jun 05, 2018 08:45
[2018-06-05] MEDS: MELOXICAM 7.5 MG (MOBIC) TABLET PO SCH (08:49)
[2018-06-05] MEDS: PROMETHAZINE 25 MG (PHENERGAN) TAB PO SCH ×2 (08:50→16:55)
[2018-06-05] MEDS: ARTIFICAL TEARS 0.4 ML UNIT DOSE (REFRESH PLUS) OU SCH ×3 (08:50→20:00)
[2018-06-05] MEDS: SUCRALFATE 1 GM (CARAFATE) TAB PO SCH ×3 (08:50→19:58)
[2018-06-05] MEDS: LORATADINE (CLARITIN) 10 MG TAB PO SCH (08:50)
[2018-06-05] MEDS: meTOprolol TARTRATE 50 MG (LOPRESSOR) TAB PO SCH ×2 (08:50→19:59)
[2018-06-05] MEDS: DOCUSATE SODIUM 100 MG (COLACE) CAP PO SCH ×2 (08:50→19:12)
[2018-06-05] MEDS: ENOXAPARIN 40 MG/0.4 ML (LOVENOX) SYR SC SCH (08:50)
[2018-06-05] MEDS: TRIAMCINOLONE 0.5% CR (KENALOG) 15 GM TUBE TOP SCH ×3 (09:00→20:00)
[2018-06-05] MEDS: DICLOFENAC 1% GEL 100 GM (VOLTAREN) TUBE TOP SCH ×4 (09:00→20:00)
[2018-06-05] MEDS: PATCH REMOVAL TP SCH (11:00)
[2018-06-05] MEDS: HYDROcodone/APAP 10 MG/325 MG (LORTAB) TAB PO PRN ×2 (11:11→21:14)
--- NOTE | 2018-06-05 12:06 | Physical Therapy Daily Note ---
PT Daily Note-Current Subjective Pt sitting in [facility] upon arrival. Pt is a little anxious about whether she will ever be able to go home again. LADIES SUIT OPERATOR reassures pt that she has made progress and will go home. Pt agrees to PT. Pain Numeric Pain Scale: 6 Location: Right, Left Location Body Site: Knee Pain Description: Ache Mental Status Patient Orientation: Person, Place, Time, Situation Attachments: Oxygen (2L) Transfers Therapy Code Descriptions/Definitions Functional [place] Measure: 0=Not Assessed/NA 4=Minimal Assistance 1=Total Assistance 5=Supervision or Setup 2=Maximal Assistance 6=Modified [place] 3=Moderate Assistance 7=Complete [place] Therapy Quality Codes: 6 Independent with activity with or without an assistive device 5 Patient requires set up or clean up by helper. Patient completes activity by themselves 4 Supervision or touching assist (CGA). [place] provide cues , steadying assist 3 The helper provides less than half the effort to complete the activity 2 The helper provides more than half the effort to complete the activity 1 Dependent. The helper does all the effort to complete an activity 7 Patient refused to complete or attempt activity 9 The patient did not perform the activity before the current illness or injury 88 Not attempted due to Medical conditions or safety concerns Scootin Sit to/from Stand: 5 Sit to Stand (QC): 5 Gait Training Does the Patient Walk?: Yes Distance (FIM): 3=150 ft Distance: 150' Walk 10 feet (QC): 4 Walk 50 ft with 2 Turns(QC): 4 Walk 150 ft (QC): 4 Gait Level of Assist: 4 Gait Persons Needed: 1 Gait Assistive Device: FWW Pt has slow shashi and fatigues by end of walk. Wheelchair Training Does the Pt Use a Wheelchair?: Yes Wheelchair Distance: 3=150 ft Distance: 150' Wheelchair Level of Assist: 4 Wheel 50 ft with 2 turns (QC): 4 Wheel 150 ft (QC): 4 Type of Wheelchair: Manual Pt needs assistance with doorways and turns. Exercises Seated Therapy Exercises: Ankle pumps, Long arc quads, Hip flexion, Kicking activity, Hip abd/add Seated Reps: 15 Standing: Heel/toe raises, 3 way Ex=Flex, Abd, Ext, Marching Standing Reps: 15 Treatments Pt propels [facility] to Therapy Gym. Pt completes Seated Ex in [facility] before taking short rest in anticipation of Standing EX at //bars. Pt then rests again before walking back through Therapy Commons to room to rest in [facility] and order lunch. Pt has all needs met at end of tx. Assessment Current Status: Good Progress Pt's strength and balance is improving. Pt is still getting SOA with upright activities. PT Short Term Goals Short Term Goals Time Frame: May 24, 2018 Transfers (B,C,W/C) (FIM): 3 (met) Gait (FIM): 1 (met) Gait Distance Comment: 5' Gait Level of Assist: 4 Gait Assistive Device: Parallel Bars Wheelchair (FIM): 1 Wheelchair Distance: 150'x2 [employer] Delivery Consultant Goals Jail Goals PT Jail Goals Time Frame: Jun 07, 2018 Transfers (B,C,W/C) (FIM): 4 Sit to Lying (QC): 4 Lying-Sitting on Side/Bed(QC): 4 Sit to Stand (QC): 4 Rollin Roll Left to Right (QC): 4 Chair/Moc-ec-Nkaqs Xfer(QC): 3 Car Transfer (QC): 3 Gait (FIM): 1 Distance: 20' Walk 10 feet (QC): 4 Gait Level of Assist: 4 Gait Assistive Device: FWW Wheelchair (FIM): 2 Distance: 50' Wheelchair Level of Assist: 5 Wheel 50 feet with 2 turns (QC: 4 PT Plan Problem List Problem List: Activity Tolerance, Functional Strength, Safety, Balance, Gait Treatment/Plan Treatment Plan: Continue Plan of Care Treatment Plan: Bed Mobility, Concurrent Therapy, Education, Functional Activity Fede, Functional Strength, Group Therapy, Gait, Safety, Therapeutic Exercise, Transfers Treatment Duration: Jun 07, 2018 Frequency: At least 5 of 7 days/Wk (IRF) Estimated Hrs Per Day: 1.5 hours per day Patient and/or Family Agrees t: Yes Safety Risks/Education Patient Education: Gait Training, Transfer Techniques, Correct Positioning, Safety Issues Teaching Recipient: Patient Teaching Methods: Discussion Response to Teaching: Verbalize Understanding Time/GCodes Time In: 1100 Time Out: 1200 Total Billed Treatment Time: 60 Total Billed Treatment 1, WCH (15m), EX x2 (30m) & FA (15m) G Codes Necessary: VÍCTOR Joel LADIES SUIT OPERATOR Jun 05, 2018 12:06
[2018-06-05] MEDS: SCOPOLAMINE 1.5 MG (TRANSDERM-SCOP) PATCH TD SCH (12:36)
[2018-06-05 14:28] LABS: BILIRUBIN,URINE NEGATIVE (NEGATIVE); CLARITY,URINE CLEAR; COLOR,URINE YELLOW; GLUCOSE, URINE (UA) NEGATIVE (NEGATIVE); KETONES,URINE NEGATIVE (NEGATIVE); LEUKOCYTE ESTERASE ,URINE 1+ (NEGATIVE); NITRITE,URINE NEGATIVE (NEGATIVE); PH,URINE 6 (5-9); PROTEIN,URINE NEGATIVE (NEGATIVE); UROBILINOGEN,URINE NORMAL (NORMAL)
--- NOTE | 2018-06-05 14:32 | Occupational Ther Daily Note ---
OT Current Status-Daily Note Subjective No pain reported. Appearance Pt. up in wheelchair. Requests to shower. Mental Status/Objective Patient Orientation: Person, Place Therapy Code Descriptions/Definitions Functional [place] Measure: 0=Not Assessed/NA 4=Minimal Assistance 1=Total Assistance 5=Supervision or Setup 2=Maximal Assistance 6=Modified [place] 3=Moderate Assistance 7=Complete [place] Attachments: Oxygen ADL-Treatment Therapy Code Descriptions/Definitions Functional [place] Measure: 0=Not Assessed/NA 4=Minimal Assistance 1=Total Assistance 5=Supervision or Setup 2=Maximal Assistance 6=Modified [place] 3=Moderate Assistance 7=Complete [place] Therapy Quality Codes: 6 Independent with activity with or without an assistive device 5 Patient requires set up or clean up by helper. Patient completes activity by themselves 4 Supervision or touching assist (CGA). [place] provide cues , steadying assist 3 The helper provides less than half the effort to complete the activity 2 The helper provides more than half the effort to complete the activity 1 Dependent. The helper does all the effort to complete an activity 7 Patient refused to complete or attempt activity 9 The patient did not perform the activity before the current illness or injury 88 Not attempted due to Medical conditions or safety concerns Grooming (FIM): 3 (Pt. is able to brush teeth at sink in wheelchair with set up , but requires assistance to brush hair.) Oral Hygiene (QC): 3 Bathing (FIM): 3 (Pt. requires assistance in shower to wash tabatha areas, abdominal folds. Pt. is able to utilize AE to wash bilateral LE.) Shower/Bathe Self (QC): 3 Upper Body (FIM): 3 (Pt. able to thread arms into sleeves but requires assistance to pull out operator head and down torso.) Upper Body Dressing (QC): 3 Lower Body Dressing (FIM): 2 (Pt. attempts to thread brief and pants with DS, but has difficulty. Requires assistance in stance to pull pants over hips. Due to time contraints, OT donned slipper socks on feet.) Lower Body Dressing (QC): 2 On/Off Footwear (QC): 2 Toileting (FIM): 2 Toileting Hygiene (QC): 2 Transfers (B, C, W/C) (FIM): 4 Shower Transfer(FIM): 4 (CGA) Education OT Patient Education: Correct positioning, Modified ADL techniques, Progress toward Goal/Update tx plan, Purpose of tx/functional activities, Reviewed precautions, Rehab process, Transfer techniques, Use of adapted equipment Teaching Recipient: Patient Teaching Methods: Demonstration, Discussion Response to Teaching: Verbalize Understanding, Return Demonstration OT Short Term Goals Short Term Goals Time Frame: May 24, 2018 Eating(FIM): 5 Grooming(FIM): 5 Bathing(FIM): 3 Upper Body Dressing(FIM): 5 Lower Body Dressing(FIM): 2 Toileting(FIM): 1 (one person) Transfers (B,C,W/C) (FIM): 3 (met) Toilet/Commode Transfer(FIM): 1 (one person) Additional Short Term Goals: 1-Demonstrate ADL Tasks, 2-Verbalize Understanding , 3-ImproveStrength/Fede 1=Demonstrate adherence to instructed precautions during ADL tasks. 2=Patient will verbalize/demonstrate understanding of assistive devices/ modifications for ADL. 3=Patient will improve strength/tolerance for activity to enable patient to perform ADL's. OT Senior Living Goals Ethics Instructor Goals Time Frame: Jun 07, 2018 Eating (FIM): 7 Eating (QC): 6 Groomin Oral Hygiene (QC): 6 Bathing(FIM): 5 Shower/Bathe Self (QC): 5 Upper Body Dressing(FIM): 6 Upper Body Dressing (QC): 6 Lower Body Dressing(FIM): 6 Lower Body Dressing (QC): 6 On/Off Footwear (QC): 6 Toileting(FIM): 6 Toileting Hygiene (QC): 6 Toilet/Commode Transfer(FIM): 6 Toilet/Commode Transfer (QC): 6 Shower Transfer(FIM): 6 Additional Goals: 1-Demonstrate ADL Tasks, 2-Verbalize Understanding, 3- ImproveStrength/Fede 1=Demonstrate adherence to instructed precautions during ADL tasks. 2=Patient will verbalize/demonstrate understanding of assistive devices/ modifications for ADL. 3=Patient will improve strength/tolerance for activity to enable patient to perform ADL's. OT Education/Plan Problem List/Assessment Assessment: Decreased Activ Tolerance, Decreased UE Strength, Dependent Transfers, Impaired Funct Balance, Impaired I ADL's, Impaired Self-Care Skills, Restricted Funct UE ROM Discharge Recommendations Plan/Recommendations: Continue POC Treatment Plan/Plan of Care Treatment,Training & Education: Yes Patient would benefit from OT for education, treatment and training to promote independence in ADL's, mobility, safety and/or upper extremity function for ADL' s. Plan of Care: ADL Retraining, Caregiver Training, Functional Mobility, Group Exercise/Act as Ind (education, exercise, activity tolerance, funct mobility, funtional actiities), UE Funct Exercise/Act, UE Neuromus Re-Ed/Coord, W/C Management Training, OTHER (energy conservation education) Treatment Duration: Jun 07, 2018 Frequency: At least 5 of 7 days/Wk (IRF) Estimated Hrs Per Day: 1.5 hours per day Agreement: Yes Rehab Potential: Fair Time/GCodes Start Time: 10:45 Stop Time: 11:35 Total Time Billed (hr/min): 50 Billed Treatment Time 1, ADL x 3 ULIS VALLE OT Jun 05, 2018 14:32
[2018-06-05 14:35] LABS: BACTERIA,URINE TRACE /HPF
--- NOTE | 2018-06-05 15:16 | Therapy Group Daily Note ---
Therapy Daily Group Note Patient Education Topic Other List Below Other/Notes Pt was propelled to PT/OT Group in [facility]. Group consisted of Introductions (Name , How many siblings you have & Favorite Vince present ever received), Socialization, UE/LE Seated Exercises as well as Finding Examples of everyday items that could be used for inexpensive ways of strength & resistance training once home. Pt actively listened and was appropriate when listening to others give examples of household items they have used for exercise. Pt did not give her own example and was very quiet during Group. Pt returned to room at end of Group to rest with all needs met. Start Time: 13:00 Stop Time: 14:00 Total Billed Treatment Time: 60 Total Billed Treatment 1, GRP (60m) VÍCTOR PALOMARES PTA Jun 05, 2018 15:16
--- NOTE | 2018-06-05 15:44 | Speech Therapy Daily Note ---
Speech Daily Progress Note Subjective Date Seen by Provider: Jun 05, 2018 Time Seen by Provider: 00:30 Patient was alert and participated well with therapy. Objective Patient completed a series of memory tasks with 90% accuracy given min to mod verbal cues. Assessment Assessment Current Status: Excellent Progress Treatment Plan Continue Plan of Care Communication Comprehension: 3 Expression: 3 Social Cognition Social Interaction: 4 Problem Solvin Memory: 3 Speech Short Term Goals Short Term Goals Short Term Goals 1) Patient will recall information for safety awareness at 90% or greater with minimal cues. 2) Patient will recall new information from memory tasks at 90% accuracy or greater with minimal cues. 3) Patient will follow simple directions within her immediate living environment at 90% or greater with minimal cues. Speech Automotive Painter Goals Residential Goals Patient will improve safety awareness and independence with 90% accuracy. Speech-Plan Patient/Family Goals Patient/Family Goals: Patient plans to return home alone when she is strong enough. Treatment Plan Speech Therapy Treatment Plan: Continue Plan of Care Patient is progressing with skilled ST services. Treatment Duration: Jun 07, 2018 Frequency: 5 times per week Estimated Hrs Per Day: .5 hour per day Rehab Potential: Good Barriers to Learning: Patient tires easily. Pt/Family Agrees to Plan: Yes Safety Risks/Education Teaching Recipient: Patient Teaching Methods: Discussion Response to Teaching: Verbalize Understanding Education Topics Provided: Safety and independence. Time Speech Therapy Time In: 15:00 Speech Therapy Time Out: 15:30 Total Billed Time: 30 Billed Treatment Time [address] Jun 05, 2018 15:44
[2018-06-05 18:20] VITALS: BP 144/82
[2018-06-05] MEDS: ATORVASTATIN 40 MG (LIPITOR) TABLET PO SCH (19:58)
[2018-06-05] MEDS: OLANZapine 5 MG (ZyPREXA) TAB PO SCH (19:58)
[2018-06-05] MEDS: DONEPEZIL 10 MG (ARICEPT) TAB PO SCH (19:59)
[2018-06-06] MEDS: PROMETHAZINE 25 MG (PHENERGAN) TAB PO SCH ×3 (00:08→16:30)
[2018-06-06] MEDS: ADVAIR HFA 115/21 MCG INHALER 8 GM IH SCH ×2 (00:46→09:13)
[2018-06-06 05:14] VITALS: BP 145/83
[2018-06-06] MEDS: CYANOCOBALAMIN 1,000 MCG (VITAMIN B-12) TABLET PO SCH (06:14)
[2018-06-06] MEDS: MULTIVIT W/MINERALS TAB (THERAGRAN M) PO SCH (06:14)
[2018-06-06] MEDS: LACTOBACILLUS ACIDOPHILUS (PROBIOTIC) CAPSULE PO SCH ×3 (06:14→16:58)
[2018-06-06] MEDS: PANTOPRAZOLE 40 MG (PROTONIX) TAB PO SCH ×2 (06:14→19:44)
[2018-06-06] MEDS: SUCRALFATE 1 GM (CARAFATE) TAB PO SCH ×3 (07:39→19:44)
[2018-06-06] MEDS: LORATADINE (CLARITIN) 10 MG TAB PO SCH (07:40)
[2018-06-06] MEDS: meTOprolol TARTRATE 50 MG (LOPRESSOR) TAB PO SCH ×2 (07:40→19:44)
[2018-06-06] MEDS: ARTIFICAL TEARS 0.4 ML UNIT DOSE (REFRESH PLUS) OU SCH ×3 (07:41→19:46)
[2018-06-06] MEDS: MELOXICAM 7.5 MG (MOBIC) TABLET PO SCH (07:41)
[2018-06-06] MEDS: ENOXAPARIN 40 MG/0.4 ML (LOVENOX) SYR SC SCH (07:42)
[2018-06-06] MEDS: DOCUSATE SODIUM 100 MG (COLACE) CAP PO SCH ×2 (07:43→19:45)
[2018-06-06] MEDS: TRIAMCINOLONE 0.5% CR (KENALOG) 15 GM TUBE TOP SCH ×3 (07:43→19:45)
[2018-06-06] MEDS: DICLOFENAC 1% GEL 100 GM (VOLTAREN) TUBE TOP SCH ×4 (07:43→19:45)
--- NOTE | 2018-06-06 08:23 | Progress Note (SOAP) ---
Subjective Time Seen by a Provider: 08:19 Subjective/Events-last exam Patient tolerated Zyprexa decreased. Urine looks better. Patient improving Objective Exam Vital Signs Date Time Temp Pulse Resp B/P (MAP) Pulse Ox O2 Delivery O2 Flow Rate FiO2 06/06/18 05:14 98.9 79 18 145/83 (103) 96 Nasal Cannula 2.00 06/05/18 20:12 Nasal Cannula 3.00 06/05/18 18:20 97.6 93 20 144/82 (102) 97 Nasal Cannula 2.00 I & O 06/06/18 07:00 Intake Total 1350 ml Balance 1350 ml Capillary Refill : General Appearance: No Apparent Distress, WD/WN HEENT: Normal ENT Inspection Neck: Normal Inspection Results Lab Laboratory Tests 06/05/18 14:15: Urine Color YELLOW, Urine Clarity CLEAR, Urine pH 6, Urine Specific [place] 1.015L, Urine Protein NEGATIVE, Urine Glucose (UA) NEGATIVE, Urine Ketones NEGATIVE, Urine Nitrite NEGATIVE, Urine Bilirubin NEGATIVE, Urine Urobilinogen NORMAL, Urine Leukocyte Esterase 1+H, Urine RBC (Auto) NEGATIVE, Urine RBC NONE , Urine WBC 5-10H, Urine Squamous Epithelial Cells 5-10, Urine Crystals NONE, Urine Bacteria TRACE, Urine Casts NONE, Urine Mucus SMALLH, Urine Culture Indicated YES Microbiology 05/25/18 Urine Culture - Final, Complete Pseudomonas aeruginosa Enterococcus faecium Assessment/Plan Assessment/Plan Assess & Plan/Chief Complaint Myopathy. COPD. Morbid obesity. Bipolar. Anxiety. Depression. Psoriasis. On ventilator. PEG tube removed. Coronary artery disease. GERD. Hypothyroid. Morbid obesity. . 05/21/18. Myopathy. COPD. Morbid obesity. Bipolar. Anxiety. Depression. Psoriasis. Coronary artery disease. Hypothyroid. Morbid obesity. Patient states she's working hard. . 05/22/18. Patient feeling good today. CT of the chest may showpulmonary emboli. COPD. Morbid obesity. Bipolar. Psoriasis. Coronary artery disease Hypothyroid. . 05/23/18. Trach extubated. Patient breathing good. V/Q scan negative for pulmonary embolism. Morbid obesity. Psoriasis. Coronary artery disease. Hypothyroid. Patient feel she is improving. . 05/24/18. Morbid obesity. Psoriasis. Disuse myopathy. Coronary artery disease. Bipolar. Hypothyroid. Current . Disuse myopathy. Psoriasis. Coronary artery disease. Bipolar. Hypothyroid. Nauseousness. To add Phenergan.. . 06/06/17. Disuse myopathy. COPD. Psoriasis. Bipolar. Patient feeling better Increased the dose of Zyprexa and now decreased it . 05/28/18. Disuse myopathy. Psoriasis. Bipolar. Coronary artery disease. Hypothyroid. 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 . 05/29/18. Disuse myopathy psoriasis. Bipolar. CAD. Hypothyroid. Patient feeling good.. . 05/31/18. Disuse myopathy. Psoriasis. Bipolar. CAD. Hypothyroid patient walking good with walker. Patient seen yesterday area . 06/05/18. Disuse myopathy. Psoriasis. Bipolar. UTI. CAD. Patient starting to get around better. Trying to titrate off oxygen Clinical Quality Measures DVT/VTE Risk/Contraindication: Risk Factor Score Per Nursin RFS Level Per Nursing on Admit: 4+=Very High JOCELYNE MEI DO Jun 06, 2018 08:22
--- NOTE | 2018-06-06 11:11 | NUR ---
PT EATING WELL, 85% MEALS. WAS HAVING NAUSEA, BUT IS BETTER. WEIGHT IS STABLE. INTAKE MEETING NEEDS AT THIS TIME. CONT SAME.
[2018-06-06] MEDS: HYDROcodone/APAP 10 MG/325 MG (LORTAB) TAB PO PRN ×2 (11:39→19:44)
--- NOTE | 2018-06-06 11:56 | NUR ---
GIS GEOGRAPHER met with patient to review Team Conference Summary. As patient continues to require mod A with bathing and dressing, min A for grooming and transfers, SBA for ambulation and the need to wean from O2, if able, Team has not recommended discharge until 06/13. Team has also recommended a day pass for patient to utilize this weekend to trial home, as patient is very anxious and apprehensive about discharge. Patient does reside alone and has little support as her daughter works second time worker during the days and lives in [facility]. GIS GEOGRAPHER has recommended home pass to identify specific tasks to accomplish prior to discharge. Patient has requested GIS GEOGRAPHER to speak to daughter regarding discharge plans. GIS GEOGRAPHER attempted to contact daughter; however, she does not have a voicemail set up. GIS GEOGRAPHER will reattempt later today. Addendum: 06/06/18 at 1431 by YASH OSEGUERA SS GIS GEOGRAPHER received call back from patient's daughter, . She is agreeable to day pass for 06/09 to trial home visit. Equipment needs and services will be evaluated based on success of home trial.
--- NOTE | 2018-06-06 11:57 | Physical Therapy Daily Note ---
PT Daily Note-Current Subjective Pt. states she has been disabled quite a while and has had a similar hospitalization and period of weakness in the past. Pt. states she is afraid to return home this time, has no help except mental health assist, does not drive. States she wants to titrate off O2 , doesnt want O2 at home. 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 Pain Numeric Pain Scale: 10-Worst Possible Pain Location: Anterior Location Body Site: Head Pain Description: Throbbing Mental Status Patient Orientation: Normal For Age Attachments: Oxygen (1-2 L) Transfers Therapy Code Descriptions/Definitions Functional [place] Measure: 0=Not Assessed/NA 4=Minimal Assistance 1=Total Assistance 5=Supervision or Setup 2=Maximal Assistance 6=Modified [place] 3=Moderate Assistance 7=Complete [place] Therapy Quality Codes: 6 Independent with activity with or without an assistive device 5 Patient requires set up or clean up by helper. Patient completes activity by themselves 4 Supervision or touching assist (CGA). [place] provide cues , steadying assist 3 The helper provides less than half the effort to complete the activity 2 The helper provides more than half the effort to complete the activity 1 Dependent. The helper does all the effort to complete an activity 7 Patient refused to complete or attempt activity 9 The patient did not perform the activity before the current illness or injury 88 Not attempted due to Medical conditions or safety concerns Transfers (B, C, W/C) (FIM): 6 Scootin Sit to/from Stand: 6 Gait Training Does the Patient Walk?: Yes Gait Level of Assist: 4 Gait Persons Needed: 1 Gait Assistive Device: FWW morning gait trials with instruction in use of extended O2 tubing and attempts at titration of O2, lowest O2 reading at 87% on 1 L, quick recovery, pt. ambulating 50ft 6 times with O2 between 1-2L Exercises Seated Therapy Exercises: Ankle pumps, Sit to stand, Long arc quads, Chair press-ups, Hip flexion, Hip abd/add Seated Reps: 15 Standing: Marching, Mini squats Standing Reps: 10 Assessment Current Status: Good Progress making progress, head ache and left shoulder pain limit pt. this date. Unable to titrate off O2 this Rx but stayed 90% on 2 L for all PT Short Term Goals Short Term Goals Time Frame: May 24, 2018 Transfers (B,C,W/C) (FIM): 3 (met) Gait (FIM): 1 (met) Gait Distance Comment: 5' Gait Level of Assist: 4 Gait Assistive Device: Parallel Bars Wheelchair (FIM): 1 Wheelchair Distance: 150' PT Longterm Goals Longterm Goals PT Longterm Goals Time Frame: Jun 07, 2018 Transfers (B,C,W/C) (FIM): 4 Sit to Lying (QC): 4 Lying-Sitting on Side/Bed(QC): 4 Sit to Stand (QC): 4 Rollin Roll Left to Right (QC): 4 Chair/Ket-wi-Pkyjb Xfer(QC): 3 Car Transfer (QC): 3 Gait (FIM): 1 Distance: 20' Walk 10 feet (QC): 4 Gait Level of Assist: 4 Gait Assistive Device: FWW Wheelchair (FIM): 2 Distance: 50' Wheelchair Level of Assist: 5 Wheel 50 feet with 2 turns (QC: 4 PT Plan Treatment/Plan Treatment Plan: Continue Plan of Care Treatment Plan: Bed Mobility, Concurrent Therapy, Education, Functional Activity Fede, Functional Strength, Group Therapy, Gait, Safety, Therapeutic Exercise, Transfers Treatment Duration: Jun 07, 2018 Frequency: At least 5 of 7 days/Wk (IRF) Estimated Hrs Per Day: 1.5 hours per day Patient and/or Family Agrees t: Yes Safety Risks/Education Patient Education: Gait Training, Transfer Techniques, Correct Positioning, Disease Process, Safety Issues Teaching Recipient: Patient Teaching Methods: Demonstration, Discussion Response to Teaching: Verbalize Understanding, Return Demonstration, Reinforcement Needed Time/GCodes Time In: 1100 Time Out: 1200 Total Billed Treatment Time: 60 Total Billed Treatment 1,EX20m,FA15m,GT25m G Codes Necessary: LYNN Kerns FRAME COVERER Jun 06, 2018 11:57
--- NOTE | 2018-06-06 14:30 | NUR ---
Pt can come out of Isolation, after speaking w store coordinator, Jermain, who spoke w Jese in Pharmacy, pt notified. See Microbiology of Urine.
--- NOTE | 2018-06-06 14:54 | Physical Therapy Daily Note ---
PT Daily Note-Current Subjective Pt. is anxious to get a haircut after this Rx is over and a beautician comes in. Pain Numeric Pain Scale: 0-No Pain Mental Status Patient Orientation: Normal For Age Attachments: Oxygen (2L) Transfers Therapy Code Descriptions/Definitions Functional [place] Measure: 0=Not Assessed/NA 4=Minimal Assistance 1=Total Assistance 5=Supervision or Setup 2=Maximal Assistance 6=Modified [place] 3=Moderate Assistance 7=Complete [place] Therapy Quality Codes: 6 Independent with activity with or without an assistive device 5 Patient requires set up or clean up by helper. Patient completes activity by themselves 4 Supervision or touching assist (CGA). [place] provide cues , steadying assist 3 The helper provides less than half the effort to complete the activity 2 The helper provides more than half the effort to complete the activity 1 Dependent. The helper does all the effort to complete an activity 7 Patient refused to complete or attempt activity 9 The patient did not perform the activity before the current illness or injury 88 Not attempted due to Medical conditions or safety concerns sit to stand from w/c x 5 SBA Gait Training Does the Patient Walk?: Yes Gait (FIM): 5 Distance (FIM): 3=150 ft (150, 50) Gait Level of Assist: 5 Gait Persons Needed: 1 Gait Assistive Device: FWW w/c to follow Wheelchair Training Type of Wheelchair: Manual 125 ft uses UEs and feet, needs some instruction regarding tight space maneuvering Exercises Seated Therapy Exercises: Ankle pumps, Sit to stand (arm chair push ups), Long arc quads, Hip flexion, Hip abd/add Seated Reps: 12 Assessment Current Status: Good Progress gives full effort, making good progress PT Short Term Goals Short Term Goals Time Frame: May 24, 2018 Transfers (B,C,W/C) (FIM): 3 (met) Gait (FIM): 1 (met) Gait Distance Comment: 5' Gait Level of Assist: 4 Gait Assistive Device: Parallel Bars Wheelchair (FIM): 1 Wheelchair Distance: 150' PT Blueprint Engineer Goals Blueprint Engineer Goals PT Blueprint Engineer Goals Time Frame: Jun 07, 2018 Transfers (B,C,W/C) (FIM): 4 Sit to Lying (QC): 4 Lying-Sitting on Side/Bed(QC): 4 Sit to Stand (QC): 4 Rollin Roll Left to Right (QC): 4 Chair/Puo-gn-Tevwe Xfer(QC): 3 Car Transfer (QC): 3 Gait (FIM): 1 Distance: 20' Walk 10 feet (QC): 4 Gait Level of Assist: 4 Gait Assistive Device: FWW Wheelchair (FIM): 2 Distance: 50' Wheelchair Level of Assist: 5 Wheel 50 feet with 2 turns (QC: 4 PT Plan Treatment/Plan Treatment Plan: Continue Plan of Care Treatment Plan: Bed Mobility, Concurrent Therapy, Education, Functional Activity Fede, Functional Strength, Group Therapy, Gait, Safety, Therapeutic Exercise, Transfers Treatment Duration: Jun 07, 2018 Frequency: At least 5 of 7 days/Wk (IRF) Estimated Hrs Per Day: 1.5 hours per day Patient and/or Family Agrees t: Yes Safety Risks/Education Patient Education: Gait Training, Transfer Techniques, Correct Positioning, W/ C Management, Disease Process, Safety Issues Teaching Recipient: Patient Teaching Methods: Demonstration, Discussion Response to Teaching: Verbalize Understanding, Return Demonstration, Reinforcement Needed Time/GCodes Time In: 1430 Time Out: 1455 Total Billed Treatment Time: 25 Total Billed Treatment 1,GT15m,EX10m G Codes Necessary: LYNN Kerns CLINICAL DIETICIAN Jun 06, 2018 14:53
--- NOTE | 2018-06-06 15:38 | Speech Therapy Daily Note ---
Speech Daily Progress Note Subjective Date Seen by Provider: Jun 06, 2018 Time Seen by Provider: 00:30 Patient was alert and participated well with therapy. Objective Patient completed a series of memory tasks with 90% accuracy given minimal repetitions. Assessment Assessment Current Status: Excellent Progress Treatment Plan Continue Plan of Care Communication Comprehension: 3 Expression: 3 Social Cognition Social Interaction: 4 Problem Solvin Memory: 3 Speech Short Term Goals Short Term Goals Short Term Goals 1) Patient will recall information for safety awareness at 90% or greater with minimal cues. 2) Patient will recall new information from memory tasks at 90% accuracy or greater with minimal cues. 3) Patient will follow simple directions within her immediate living environment at 90% or greater with minimal cues. Speech Care Home Goals Care Home Goals Patient will improve safety awareness and independence with 90% accuracy. Speech-Plan Patient/Family Goals Patient/Family Goals: Patient plans to return home as soon as she is strong enough. Treatment Plan Speech Therapy Treatment Plan: Continue Plan of Care Patient is progressing well with skilled therapy. Treatment Duration: Jun 07, 2018 Frequency: 5 times per week Estimated Hrs Per Day: .5 hour per day Rehab Potential: Good Barriers to Learning: Patient is too weak to live independently. Pt/Family Agrees to Plan: Yes Safety Risks/Education Teaching Recipient: Patient Teaching Methods: Discussion Response to Teaching: Verbalize Understanding Education Topics Provided: Safety Time Speech Therapy Time In: 09:30 Speech Therapy Time Out: 10:00 Total Billed Time: 30 Billed Treatment Time 1Gonzalo [address] Jun 06, 2018 15:37
--- NOTE | 2018-06-06 16:11 | Occupational Ther Daily Note ---
OT Current Status-Daily Note Subjective No pain reported. Appearance Pt. requested to take a shower. Mental Status/Objective Patient Orientation: Person, Place, Time, Situation Therapy Code Descriptions/Definitions Functional [place] Measure: 0=Not Assessed/NA 4=Minimal Assistance 1=Total Assistance 5=Supervision or Setup 2=Maximal Assistance 6=Modified [place] 3=Moderate Assistance 7=Complete [place] Attachments: Oxygen ADL-Treatment Therapy Code Descriptions/Definitions Functional [place] Measure: 0=Not Assessed/NA 4=Minimal Assistance 1=Total Assistance 5=Supervision or Setup 2=Maximal Assistance 6=Modified [place] 3=Moderate Assistance 7=Complete [place] Therapy Quality Codes: 6 Independent with activity with or without an assistive device 5 Patient requires set up or clean up by helper. Patient completes activity by themselves 4 Supervision or touching assist (CGA). [place] provide cues , steadying assist 3 The helper provides less than half the effort to complete the activity 2 The helper provides more than half the effort to complete the activity 1 Dependent. The helper does all the effort to complete an activity 7 Patient refused to complete or attempt activity 9 The patient did not perform the activity before the current illness or injury 88 Not attempted due to Medical conditions or safety concerns Grooming (FIM): 3 (Pt. able to brush teeth at sink, but needs assistance to brush hair.) Oral Hygiene (QC): 5 Bathing (FIM): 4 (Pt. requires assistance to wash rear tabatha area. Pt. attempts from the front, and by leaning to the side. Also attempts in stance to no avail.) Shower/Bathe Self (QC): 4 Upper Body (FIM): 3 Upper Body Dressing (QC): 3 Lower Body Dressing (FIM): 3 (Pt. attempts to don brief and pants with equipment, but needs assist. Due to time constraints, but requires assistance with slipper socks.) Lower Body Dressing (QC): 3 On/Off Footwear (QC): 2 Transfers (B, C, W/C) (FIM): 4 (CGA to stand and ambulate with walker.) Toilet/Commode Transfer (FIM): 4 Toilet Transfer (QC): 4 Shower Transfer(FIM): 4 Education OT Patient Education: Correct positioning, Modified ADL techniques, Progress toward Goal/Update tx plan, Purpose of tx/functional activities, Reviewed precautions, Rehab process, Transfer techniques Teaching Recipient: Patient Teaching Methods: Demonstration, Discussion Response to Teaching: Verbalize Understanding, Return Demonstration OT Short Term Goals Short Term Goals Time Frame: May 24, 2018 Eating(FIM): 5 Grooming(FIM): 5 Bathing(FIM): 3 Upper Body Dressing(FIM): 5 Lower Body Dressing(FIM): 2 Toileting(FIM): 1 (one person) Transfers (B,C,W/C) (FIM): 3 (met) Toilet/Commode Transfer(FIM): 1 (one person) Additional Short Term Goals: 1-Demonstrate ADL Tasks, 2-Verbalize Understanding , 3-ImproveStrength/Fede 1=Demonstrate adherence to instructed precautions during ADL tasks. 2=Patient will verbalize/demonstrate understanding of assistive devices/ modifications for ADL. 3=Patient will improve strength/tolerance for activity to enable patient to perform ADL's. OT Measurement Department Chief Clerk Goals Longterm Goals Time Frame: Jun 07, 2018 Eating (FIM): 7 Eating (QC): 6 Groomin Oral Hygiene (QC): 6 Bathing(FIM): 5 Shower/Bathe Self (QC): 5 Upper Body Dressing(FIM): 6 Upper Body Dressing (QC): 6 Lower Body Dressing(FIM): 6 Lower Body Dressing (QC): 6 On/Off Footwear (QC): 6 Toileting(FIM): 6 Toileting Hygiene (QC): 6 Toilet/Commode Transfer(FIM): 6 Toilet/Commode Transfer (QC): 6 Shower Transfer(FIM): 6 Additional Goals: 1-Demonstrate ADL Tasks, 2-Verbalize Understanding, 3- ImproveStrength/Fede 1=Demonstrate adherence to instructed precautions during ADL tasks. 2=Patient will verbalize/demonstrate understanding of assistive devices/ modifications for ADL. 3=Patient will improve strength/tolerance for activity to enable patient to perform ADL's. OT Education/Plan Problem List/Assessment Assessment: Decreased Activ Tolerance, Decreased UE Strength, Dependent Transfers, Impaired Funct Balance, Impaired I ADL's, Impaired Self-Care Skills, Restricted Funct UE ROM Discharge Recommendations Plan/Recommendations: Continue POC Therapy D/C Recommendations: Home w/ Family Support, Occupational Therapy Home Care, Scheduled Assistance Equpiment Recommendations-D/C: Hip Kit Treatment Plan/Plan of Care Treatment,Training & Education: Yes Patient would benefit from OT for education, treatment and training to promote independence in ADL's, mobility, safety and/or upper extremity function for ADL' s. Plan of Care: ADL Retraining, Caregiver Training, Functional Mobility, Group Exercise/Act as Ind (education, exercise, activity tolerance, funct mobility, funtional actiities), UE Funct Exercise/Act, UE Neuromus Re-Ed/Coord, W/C Management Training, OTHER (energy conservation education) Treatment Duration: Jun 07, 2018 Frequency: At least 5 of 7 days/Wk (IRF) Estimated Hrs Per Day: 1.5 hours per day Agreement: Yes Rehab Potential: Fair Time/GCodes Start Time: 10:00 Stop Time: 10:45 Total Time Billed (hr/min): 45 Billed Treatment Time 1, ADL x 3 LUIS VALLE OT Jun 06, 2018 16:11
--- NOTE | 2018-06-06 16:14 | Occupational Ther Daily Note ---
OT Current Status-Daily Note Subjective No pain reported. Mental Status/Objective Patient Orientation: Person, Place, Time, Situation Therapy Code Descriptions/Definitions Functional [place] Measure: 0=Not Assessed/NA 4=Minimal Assistance 1=Total Assistance 5=Supervision or Setup 2=Maximal Assistance 6=Modified [place] 3=Moderate Assistance 7=Complete [place] ADL-Treatment Therapy Code Descriptions/Definitions Functional [place] Measure: 0=Not Assessed/NA 4=Minimal Assistance 1=Total Assistance 5=Supervision or Setup 2=Maximal Assistance 6=Modified [place] 3=Moderate Assistance 7=Complete [place] Therapy Quality Codes: 6 Independent with activity with or without an assistive device 5 Patient requires set up or clean up by helper. Patient completes activity by themselves 4 Supervision or touching assist (CGA). [place] provide cues , steadying assist 3 The helper provides less than half the effort to complete the activity 2 The helper provides more than half the effort to complete the activity 1 Dependent. The helper does all the effort to complete an activity 7 Patient refused to complete or attempt activity 9 The patient did not perform the activity before the current illness or injury 88 Not attempted due to Medical conditions or safety concerns Lower Body Dressing (FIM): 4 (Pt. attempts to use new sock aide that daughter bought to don socks. Pt. does not like it and so she uses the soft aide, which she does like. OT put elastic laces into shoes and pt. donned shoes using DS and shoe horn. Had difficulty with this but was able to manage to put them on. All needs met in room.) Education OT Patient Education: Correct positioning, Modified ADL techniques, Progress toward Goal/Update tx plan, Purpose of tx/functional activities, Reviewed precautions, Rehab process Teaching Recipient: Patient Teaching Methods: Demonstration, Discussion Response to Teaching: Verbalize Understanding, Return Demonstration OT Short Term Goals Short Term Goals Time Frame: May 24, 2018 Eating(FIM): 5 Grooming(FIM): 5 Bathing(FIM): 3 Upper Body Dressing(FIM): 5 Lower Body Dressing(FIM): 2 Toileting(FIM): 1 (one person) Transfers (B,C,W/C) (FIM): 3 (met) Toilet/Commode Transfer(FIM): 1 (one person) Additional Short Term Goals: 1-Demonstrate ADL Tasks, 2-Verbalize Understanding , 3-ImproveStrength/Fede 1=Demonstrate adherence to instructed precautions during ADL tasks. 2=Patient will verbalize/demonstrate understanding of assistive devices/ modifications for ADL. 3=Patient will improve strength/tolerance for activity to enable patient to perform ADL's. OT Furniture Sander Goals Furniture Sander Goals Time Frame: Jun 07, 2018 Eating (FIM): 7 Eating (QC): 6 Groomin Oral Hygiene (QC): 6 Bathing(FIM): 5 Shower/Bathe Self (QC): 5 Upper Body Dressing(FIM): 6 Upper Body Dressing (QC): 6 Lower Body Dressing(FIM): 6 Lower Body Dressing (QC): 6 On/Off Footwear (QC): 6 Toileting(FIM): 6 Toileting Hygiene (QC): 6 Toilet/Commode Transfer(FIM): 6 Toilet/Commode Transfer (QC): 6 Shower Transfer(FIM): 6 Additional Goals: 1-Demonstrate ADL Tasks, 2-Verbalize Understanding, 3- ImproveStrength/Fede 1=Demonstrate adherence to instructed precautions during ADL tasks. 2=Patient will verbalize/demonstrate understanding of assistive devices/ modifications for ADL. 3=Patient will improve strength/tolerance for activity to enable patient to perform ADL's. OT Education/Plan Problem List/Assessment Assessment: Decreased Activ Tolerance, Decreased UE Strength, Impaired I ADL's , Impaired Self-Care Skills, Restricted Funct UE ROM Discharge Recommendations Plan/Recommendations: Continue POC Therapy D/C Recommendations: Home w/ Family Support, Occupational Therapy Home Care, Scheduled Assistance Equpiment Recommendations-D/C: Hip Kit Treatment Plan/Plan of Care Treatment,Training & Education: Yes Patient would benefit from OT for education, treatment and training to promote independence in ADL's, mobility, safety and/or upper extremity function for ADL' s. Plan of Care: ADL Retraining, Caregiver Training, Functional Mobility, Group Exercise/Act as Ind (education, exercise, activity tolerance, funct mobility, funtional actiities), UE Funct Exercise/Act, UE Neuromus Re-Ed/Coord, W/C Management Training, OTHER (energy conservation education) Treatment Duration: Jun 07, 2018 Frequency: At least 5 of 7 days/Wk (IRF) Estimated Hrs Per Day: 1.5 hours per day Agreement: Yes Rehab Potential: Fair Time/GCodes Start Time: 13:30 Stop Time: 14:00 Total Time Billed (hr/min): 30 Billed Treatment Time 1, ADL x 2 LUIS VALLE OT Jun 06, 2018 16:14
[2018-06-06 17:01] VITALS: BP 158/89
[2018-06-06] MEDS: OLANZapine 5 MG (ZyPREXA) TAB PO SCH (19:43)
[2018-06-06] MEDS: ATORVASTATIN 40 MG (LIPITOR) TABLET PO SCH (19:44)
[2018-06-06] MEDS: DONEPEZIL 10 MG (ARICEPT) TAB PO SCH (19:44)
[2018-06-07] MEDS: PROMETHAZINE 25 MG (PHENERGAN) TAB PO SCH ×4 (00:36→23:35)
[2018-06-07 04:36] VITALS: BP 149/86
[2018-06-07] MEDS: CYANOCOBALAMIN 1,000 MCG (VITAMIN B-12) TABLET PO SCH (06:14)
[2018-06-07] MEDS: PANTOPRAZOLE 40 MG (PROTONIX) TAB PO SCH ×2 (06:14→21:06)
[2018-06-07] MEDS: LACTOBACILLUS ACIDOPHILUS (PROBIOTIC) CAPSULE PO SCH ×3 (06:14→17:02)
[2018-06-07] MEDS: MULTIVIT W/MINERALS TAB (THERAGRAN M) PO SCH (06:14)
[2018-06-07] MEDS: MELOXICAM 7.5 MG (MOBIC) TABLET PO SCH (08:14)
[2018-06-07] MEDS: LORATADINE (CLARITIN) 10 MG TAB PO SCH (08:15)
[2018-06-07] MEDS: meTOprolol TARTRATE 50 MG (LOPRESSOR) TAB PO SCH ×2 (08:15→21:06)
[2018-06-07] MEDS: SUCRALFATE 1 GM (CARAFATE) TAB PO SCH ×3 (08:15→21:06)
[2018-06-07] MEDS: ENOXAPARIN 40 MG/0.4 ML (LOVENOX) SYR SC SCH (08:17)
[2018-06-07] MEDS: ARTIFICAL TEARS 0.4 ML UNIT DOSE (REFRESH PLUS) OU SCH ×3 (08:19→21:06)
[2018-06-07] MEDS: DOCUSATE SODIUM 100 MG (COLACE) CAP PO SCH ×2 (08:19→21:16)
[2018-06-07] MEDS: TRIAMCINOLONE 0.5% CR (KENALOG) 15 GM TUBE TOP SCH ×3 (08:20→21:16)
[2018-06-07] MEDS: DICLOFENAC 1% GEL 100 GM (VOLTAREN) TUBE TOP SCH ×4 (08:20→21:12)
--- NOTE | 2018-06-07 08:49 | Progress Note (SOAP) ---
Subjective Time Seen by a Provider: 08:46 Subjective/Events-last exam Patient out of isolation. To evaluate if patient needs oxygen nasal. Patient positive today and happy. Patient playing danuta Objective Exam Vital Signs Date Time Temp Pulse Resp B/P (MAP) Pulse Ox O2 Delivery O2 Flow Rate FiO2 06/07/18 04:36 98.2 86 18 149/86 (107) 92 Room Air 06/06/18 20:00 Nasal Cannula 2.00 06/06/18 17:01 96.7 85 20 158/89 (112) 99 Nasal Cannula 2.00 06/06/18 09:14 95 Nasal Cannula 2.00 I & O 06/07/18 07:00 Intake Total 1430 ml Balance 1430 ml Capillary Refill : General Appearance: No Apparent Distress, WD/WN HEENT: Normal ENT Inspection Neck: Full Range of Motion, Normal Inspection Respiratory: No Accessory Muscle Use, No Respiratory Distress Cardiovascular: Regular Rate, Rhythm, No Murmur Results Lab Microbiology 06/05/18 Urine Culture - Final, Complete See Report Assessment/Plan Assessment/Plan Assess & Plan/Chief Complaint Myopathy. COPD. Morbid obesity. Bipolar. Anxiety. Depression. Psoriasis. On ventilator. PEG tube removed. Coronary artery disease. GERD. Hypothyroid. Morbid obesity. . 05/21/18. Myopathy. COPD. Morbid obesity. Bipolar. Anxiety. Depression. Psoriasis. Coronary artery disease. Hypothyroid. Morbid obesity. Patient states she's working hard. . 05/22/18. Patient feeling good today. CT of the chest may showpulmonary emboli. COPD. Morbid obesity. Bipolar. Psoriasis. Coronary artery disease Hypothyroid. . 05/23/18. Trach extubated. Patient breathing good. V/Q scan negative for pulmonary embolism. Morbid obesity. Psoriasis. Coronary artery disease. Hypothyroid. Patient feel she is improving. . 05/24/18. Morbid obesity. Psoriasis. Disuse myopathy. Coronary artery disease. Bipolar. Hypothyroid. Current . Disuse myopathy. Psoriasis. Coronary artery disease. Bipolar. Hypothyroid. Nauseousness. To add Phenergan.. . 06/06/17. Disuse myopathy. COPD. Psoriasis. Bipolar. Patient feeling better Increased the dose of Zyprexa and now decreased it . 05/28/18. Disuse myopathy. Psoriasis. Bipolar. Coronary artery disease. Hypothyroid. 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 . 05/29/18. Disuse myopathy psoriasis. Bipolar. CAD. Hypothyroid. Patient feeling good.. . 05/31/18. Disuse myopathy. Psoriasis. Bipolar. CAD. Hypothyroid patient walking good with walker. Patient seen yesterday area . 06/05/18. Disuse myopathy. Psoriasis. Bipolar. UTI. CAD. Patient starting to get around better. Trying to titrate off oxygen. . Patient seen on 2717. Patient out of isolation. 06/07/18. Patient positive. To try to wean off oxygen. Disuse myopathy. Psoriasis. Bipolar. UTI resolved. CAD. Clinical Quality Measures DVT/VTE Risk/Contraindication: Risk Factor Score Per Nursin RFS Level Per Nursing on Admit: 4+=Very High JOCELYNE MEI DO Jun 07, 2018 08:49
--- NOTE | 2018-06-07 09:57 | Speech Therapy Daily Note ---
Speech Daily Progress Note Subjective Date Seen by Provider: Jun 07, 2018 Time Seen by Provider: 00:30 Patient was pleasant and cooperative. She was excited to show me her hair since she had it cut really short yesterday. Objective Patient completed sequencing tasks while playing ALISE with 90% accuracy given minimal cuing. Assessment Assessment Current Status: Excellent Progress Treatment Plan Continue Plan of Care Communication Comprehension: 3 Expression: 3 Social Cognition Social Interaction: 4 Problem Solvin Memory: 3 Speech Short Term Goals Short Term Goals Short Term Goals 1) Patient will recall information for safety awareness at 90% or greater with minimal cues. 2) Patient will recall new information from memory tasks at 90% accuracy or greater with minimal cues. 3) Patient will follow simple directions within her immediate living environment at 90% or greater with minimal cues. Speech Global Account Executive Goals Global Account Executive Goals Patient will improve safety awareness and independence with 90% accuracy. Speech-Plan Patient/Family Goals Patient/Family Goals: Patient plans to return home next week independently with minimal family support. Patient is going on a "trial run" over the weekend to see how well she can do. Treatment Plan Speech Therapy Treatment Plan: Continue Plan of Care Patient is progressing well. Dr. Ward came in and informed the patient she will be weaned from the O2 prior to her return home. Treatment Duration: Jun 07, 2018 Frequency: 5 times per week Estimated Hrs Per Day: .5 hour per day Rehab Potential: Good Barriers to Learning: Patient has decreased self confidence for independently returning home. Pt/Family Agrees to Plan: Yes Safety Risks/Education Teaching Recipient: Patient Teaching Methods: Discussion Response to Teaching: Verbalize Understanding Education Topics Provided: Safety strategies for her return home. Time Speech Therapy Time In: 08:30 Speech Therapy Time Out: 09:00 Total Billed Time: 30 Billed Treatment Time 1, MAGUE Rubin Jun 07, 2018 09:57
[2018-06-07] MEDS: ADVAIR HFA 115/21 MCG INHALER 8 GM IH SCH ×2 (10:52→19:40)
--- NOTE | 2018-06-07 11:27 | Pulmonary Progress Note ---
Subjective Time Seen by a Provider: 11:25 Subjective/Events-last exam Pt is still doing well. No complications noted. Sepsis Event Evaluation Height, Weight, BMI Height: 5'5.00" Weight: 225lbs. 1.6oz. 102.946684jy; 38.8 BMI Method:Stated Exam Exam Vital Signs Date Time Temp Pulse Resp B/P (MAP) Pulse Ox O2 Delivery O2 Flow Rate FiO2 06/07/18 10:52 92 Nasal Cannula 2.00 06/07/18 04:36 98.2 86 18 149/86 (107) 92 Room Air 06/06/18 20:00 Nasal Cannula 2.00 06/06/18 17:01 96.7 85 20 158/89 (112) 99 Nasal Cannula 2.00 I & O 06/07/18 07:00 Intake Total 1430 ml Balance 1430 ml Height & Weight Height: 5'5.00" Weight: 225lbs. 1.6oz. 102.256979kn; 38.8 BMI Method:Stated General Appearance: No Apparent Distress, WD/WN HEENT: Normal ENT Inspection Neck: Full Range of Motion, Normal Inspection Respiratory: No Accessory Muscle Use, No Respiratory Distress Cardiovascular: Regular Rate, Rhythm, No Murmur Gastrointestinal: non tender, soft Extremity: Normal Capillary Refill, Normal Inspection, Normal Range of Motion, Non Tender, No Calf Tenderness, No Pedal Edema Neurologic/Psychiatric: Alert, Oriented x3, No Motor/Sensory Deficits, Normal Mood/Affect Skin: Normal Color, Warm/Dry Lymphatic: No Adenopathy Assessment/Plan Assessment/Plan S/P ARDS/respiratory failure - tracheostomy from [place] -CT scan reviewed and questions PE. -Pt doing well without trach tube. COPD -SVNs CAD hx Morbid obesity Hx of Bipolar/anxiety Depression MERCEDES GARZA DO Jun 07, 2018 11:27
[2018-06-07] MEDS: HYDROcodone/APAP 10 MG/325 MG (LORTAB) TAB PO PRN ×2 (11:36→18:36)
--- NOTE | 2018-06-07 12:00 | Physical Therapy Daily Note ---
PT Daily Note-Current Subjective Pt. to go home for a visit on Sunday with daughter and will need to walk on gravel/rock surface and get in /out low seated car. This YARD CALLER spoke with SW regarding need for family to have portable O2 education wit RT before the visit. Pain Numeric Pain Scale: 4 Location: Left Location Body Site: Shoulder Pain Description: Ache Mental Status Patient Orientation: Person, Place, Time, Situation Attachments: Oxygen (2L) Transfers Therapy Code Descriptions/Definitions Functional [place] Measure: 0=Not Assessed/NA 4=Minimal Assistance 1=Total Assistance 5=Supervision or Setup 2=Maximal Assistance 6=Modified [place] 3=Moderate Assistance 7=Complete [place] Therapy Quality Codes: 6 Independent with activity with or without an assistive device 5 Patient requires set up or clean up by helper. Patient completes activity by themselves 4 Supervision or touching assist (CGA). [place] provide cues , steadying assist 3 The helper provides less than half the effort to complete the activity 2 The helper provides more than half the effort to complete the activity 1 Dependent. The helper does all the effort to complete an activity 7 Patient refused to complete or attempt activity 9 The patient did not perform the activity before the current illness or injury 88 Not attempted due to Medical conditions or safety concerns Transfers (B, C, W/C) (FIM): 3 Scootin Rollin Supine to/from Sit: 6 Sit to/from Stand: 5 Car Transfer (QC): 3 (pt. states she will be getting in out low car and required mod assist out of car, pt. instructed to lift LEs with UEs to get in out, this was taxing for her but she was able do it) Gait Training Does the Patient Walk?: Yes Gait (FIM): 2 Distance (FIM): 4=913-13 ft (100,50) Walking 10ft/uneven surface-QC: 4 Gait Level of Assist: 4 Gait Persons Needed: 1 Gait Assistive Device: FWW uneven surface to simulate gravel entry of home, pt needed instruction for safety and CGA and assist for O2. Wheelchair Training Does the Pt Use a Wheelchair?: Yes Wheelchair (FIM): 2 Wheelchair Distance: 3=458-78 ft (00x2) Wheelchair Level of Assist: 6 Type of Wheelchair: Manual pt. SOB before 150 ft in w/c Exercises Seated Therapy Exercises: Ankle pumps, Sit to stand, Long arc quads, Hip flexion Seated Reps: 12 NuStep Minutes: 8 NuStep Workload: 1 Treatments leg presses on Nustep x 12 Assessment Current Status: Good Progress O2 sats with activity 89 - 95% on 2 L. evident SOB noted but recovered quickly. Pt. appears anxious about home visit as well as this simulation today PT Short Term Goals Short Term Goals Time Frame: May 24, 2018 Transfers (B,C,W/C) (FIM): 3 (met) Gait (FIM): 1 (met) Gait Distance Comment: 5' Gait Level of Assist: 4 Gait Assistive Device: Parallel Bars Wheelchair (FIM): 1 Wheelchair Distance: 150' PT Senior Care Goals Health Care Technician Goals PT Senior Care Goals Time Frame: Jun 07, 2018 Transfers (B,C,W/C) (FIM): 4 Sit to Lying (QC): 4 Lying-Sitting on Side/Bed(QC): 4 Sit to Stand (QC): 4 Rollin Roll Left to Right (QC): 4 Chair/Pzl-om-Ctoip Xfer(QC): 3 Car Transfer (QC): 3 Gait (FIM): 1 Distance: 20' Walk 10 feet (QC): 4 Gait Level of Assist: 4 Gait Assistive Device: FWW Wheelchair (FIM): 2 Distance: 50' Wheelchair Level of Assist: 5 Wheel 50 feet with 2 turns (QC: 4 PT Plan Treatment/Plan Treatment Plan: Continue Plan of Care Treatment Plan: Bed Mobility, Concurrent Therapy, Education, Functional Activity Fede, Functional Strength, Group Therapy, Gait, Safety, Therapeutic Exercise, Transfers Treatment Duration: Jun 07, 2018 Frequency: At least 5 of 7 days/Wk (IRF) Estimated Hrs Per Day: 1.5 hours per day Patient and/or Family Agrees t: Yes Safety Risks/Education Patient Education: Gait Training, Transfer Techniques, Correct Positioning, W/ C Management, Disease Process, Safety Issues Teaching Recipient: Patient Teaching Methods: Demonstration, Discussion Response to Teaching: Verbalize Understanding, Return Demonstration, Reinforcement Needed Time/GCodes Time In: 1100 Time Out: 1200 Total Billed Treatment Time: 60 Total Billed Treatment 1,EX20m,GT15m,FA25 G Codes Necessary: LYNN Kerns YARD CALLER Jun 07, 2018 12:00
--- NOTE | 2018-06-07 12:59 | Occupational Ther Daily Note ---
OT Current Status-Daily Note Subjective Pt sitting in w/c, requests to shower this morning. Mental Status/Objective Therapy Code Descriptions/Definitions Functional [place] Measure: 0=Not Assessed/NA 4=Minimal Assistance 1=Total Assistance 5=Supervision or Setup 2=Maximal Assistance 6=Modified [place] 3=Moderate Assistance 7=Complete [place] Attachments: Oxygen ADL-Treatment Sit to stand with supervision. Gait to restroom with FWW. Pt transferred to walk in shower with SBA and cues for safety. Seated bathing completed using hand held shower and long handled sponge. Pt able to wash bilateral UE, chest, abdomen, tabatha area, and bilateral upper legs. Used long handled sponge for lower legs. Assist required to wash buttocks. Min assist to transfer out of shower. Dressing completed seated in w/c. Pt able to thread bilateral UE into sleeves and bring up to head. Requires assist to pull shirt over head and down in back. Pt able to pull shirt down in front. Pt requires assist to thread LE into pant legs stood with CGA for balance during pant hike. Pt requires assist to pull pants up over hips. Pt able to don socks with minimal assistance using sock aid. Increased time for bathing and dressing. Grooming tasks completed seated at sink. Pt brushed teeth with set up. Pt got her hair cut yesterday and was able to comb sides of hair, but required assist to comb back. Pt sitting in w/c with needs met after session. Therapy Code Descriptions/Definitions Functional [place] Measure: 0=Not Assessed/NA 4=Minimal Assistance 1=Total Assistance 5=Supervision or Setup 2=Maximal Assistance 6=Modified [place] 3=Moderate Assistance 7=Complete [place] Therapy Quality Codes: 6 Independent with activity with or without an assistive device 5 Patient requires set up or clean up by helper. Patient completes activity by themselves 4 Supervision or touching assist (CGA). [place] provide cues , steadying assist 3 The helper provides less than half the effort to complete the activity 2 The helper provides more than half the effort to complete the activity 1 Dependent. The helper does all the effort to complete an activity 7 Patient refused to complete or attempt activity 9 The patient did not perform the activity before the current illness or injury 88 Not attempted due to Medical conditions or safety concerns Grooming (FIM): 4 Oral Hygiene (QC): 5 Bathing (FIM): 4 Shower/Bathe Self (QC): 3 Upper Body (FIM): 3 Upper Body Dressing (QC): 3 Lower Body Dressing (FIM): 3 Lower Body Dressing (QC): 3 OT Short Term Goals Short Term Goals Time Frame: May 24, 2018 Eating(FIM): 5 Grooming(FIM): 5 Bathing(FIM): 3 Upper Body Dressing(FIM): 5 Lower Body Dressing(FIM): 2 Toileting(FIM): 1 (one person) Transfers (B,C,W/C) (FIM): 3 (met) Toilet/Commode Transfer(FIM): 1 (one person) Additional Short Term Goals: 1-Demonstrate ADL Tasks, 2-Verbalize Understanding , 3-ImproveStrength/Fede 1=Demonstrate adherence to instructed precautions during ADL tasks. 2=Patient will verbalize/demonstrate understanding of assistive devices/ modifications for ADL. 3=Patient will improve strength/tolerance for activity to enable patient to perform ADL's. OT Senior Treasury Analyst Goals [facility] Goals Time Frame: Jun 07, 2018 Eating (FIM): 7 Eating (QC): 6 Groomin Oral Hygiene (QC): 6 Bathing(FIM): 5 Shower/Bathe Self (QC): 5 Upper Body Dressing(FIM): 6 Upper Body Dressing (QC): 6 Lower Body Dressing(FIM): 6 Lower Body Dressing (QC): 6 On/Off Footwear (QC): 6 Toileting(FIM): 6 Toileting Hygiene (QC): 6 Toilet/Commode Transfer(FIM): 6 Toilet/Commode Transfer (QC): 6 Shower Transfer(FIM): 6 Additional Goals: 1-Demonstrate ADL Tasks, 2-Verbalize Understanding, 3- ImproveStrength/Fede 1=Demonstrate adherence to instructed precautions during ADL tasks. 2=Patient will verbalize/demonstrate understanding of assistive devices/ modifications for ADL. 3=Patient will improve strength/tolerance for activity to enable patient to perform ADL's. OT Education/Plan Discharge Recommendations Plan/Recommendations: Continue POC Treatment Plan/Plan of Care Patient would benefit from OT for education, treatment and training to promote independence in ADL's, mobility, safety and/or upper extremity function for ADL' s. Plan of Care: ADL Retraining, Caregiver Training, Functional Mobility, Group Exercise/Act as Ind (education, exercise, activity tolerance, funct mobility, funtional actiities), UE Funct Exercise/Act, UE Neuromus Re-Ed/Coord, W/C Management Training, OTHER (energy conservation education) Treatment Duration: Jun 07, 2018 Frequency: At least 5 of 7 days/Wk (IRF) Estimated Hrs Per Day: 1.5 hours per day Agreement: Yes Rehab Potential: Good Time/GCodes Start Time: 10:00 Stop Time: 10:45 Total Time Billed (hr/min): 45 Billed Treatment Time 1 visit, ADLx3(45minutes) ALIYAH PORTILLO OT Jun 07, 2018 12:59
--- NOTE | 2018-06-07 14:12 | NUR ---
RELAY ASSOCIATE requested JUMA Chan to practice car transfers, ambulation on uneven surfaces and with extended oxygen tubing, to prepare patient for home visit on Sunday. RELAY ASSOCIATE contacted [facility] [employer] to request loaner portable O2 for home visit on Sunday. This will be delivered to patient's room today. RELAY ASSOCIATE will follow up with patient and daughter on Sunday to review success of home visit to determine further discharge planning.
--- NOTE | 2018-06-07 14:43 | Therapy Group Daily Note ---
Therapy Daily Group Note Patient Education Topic Other List Below (memory strategies) Exercises Other (breathing exercises) Other/Notes Pt. participated in group PT OT session. Pt. came and went via w/c and assist for portable O2 at 2L. Pts. introduced themselves, shared their best joke and also shared their own favorite memory strategies for medications, appointments etc. Pts. all participated in memory activity with matching images. Some review of ARU practices was done with regard to Sunday schedule etc. Pt. to room after with guy at hand and needs met. Start Time: 13:00 Stop Time: 14:20 Total Billed Treatment Time: 80 Total Billed Treatment 1,GRP LYNN MARTINEZ TOILET AND LAUNDRY SOAP SUPERVISOR Jun 07, 2018 14:43
[2018-06-07 17:00] VITALS: BP 147/90
[2018-06-07] MEDS: DONEPEZIL 10 MG (ARICEPT) TAB PO SCH (21:06)
[2018-06-07] MEDS: ATORVASTATIN 40 MG (LIPITOR) TABLET PO SCH (21:06)
[2018-06-07] MEDS: OLANZapine 5 MG (ZyPREXA) TAB PO SCH (21:07)
[2018-06-08] MEDS: MULTIVIT W/MINERALS TAB (THERAGRAN M) PO SCH (05:34)
[2018-06-08] MEDS: LACTOBACILLUS ACIDOPHILUS (PROBIOTIC) CAPSULE PO SCH ×3 (05:34→16:36)
[2018-06-08] MEDS: CYANOCOBALAMIN 1,000 MCG (VITAMIN B-12) TABLET PO SCH (05:34)
[2018-06-08] MEDS: PANTOPRAZOLE 40 MG (PROTONIX) TAB PO SCH ×2 (05:34→20:43)
[2018-06-08 05:40] VITALS: BP 150/75
[2018-06-08 08:27] VITALS: BP 150/87
[2018-06-08] MEDS: LORATADINE (CLARITIN) 10 MG TAB PO SCH (08:31)
[2018-06-08] MEDS: MELOXICAM 7.5 MG (MOBIC) TABLET PO SCH (08:31)
[2018-06-08] MEDS: PROMETHAZINE 25 MG (PHENERGAN) TAB PO SCH ×2 (08:31→16:36)
[2018-06-08] MEDS: SUCRALFATE 1 GM (CARAFATE) TAB PO SCH ×3 (08:32→20:43)
[2018-06-08] MEDS: DOCUSATE SODIUM 100 MG (COLACE) CAP PO SCH ×2 (08:32→21:34)
[2018-06-08] MEDS: meTOprolol TARTRATE 50 MG (LOPRESSOR) TAB PO SCH ×2 (08:32→20:43)
[2018-06-08] MEDS: ARTIFICAL TEARS 0.4 ML UNIT DOSE (REFRESH PLUS) OU SCH ×3 (08:32→21:33)
[2018-06-08] MEDS: ENOXAPARIN 40 MG/0.4 ML (LOVENOX) SYR SC SCH (08:33)
[2018-06-08] MEDS: DICLOFENAC 1% GEL 100 GM (VOLTAREN) TUBE TOP SCH ×4 (08:35→20:45)
[2018-06-08] MEDS: TRIAMCINOLONE 0.5% CR (KENALOG) 15 GM TUBE TOP SCH ×3 (08:35→20:44)
[2018-06-08] MEDS: HYDROcodone/APAP 10 MG/325 MG (LORTAB) TAB PO PRN ×2 (08:38→16:47)
--- NOTE | 2018-06-08 08:38 | PM&R Progress Note ---
Subjective This was a face to face visit with the patient. Date Seen by Provider: Jun 08, 2018 Time Seen by Provider: 08:00 Subjective/Events-last exam Patient was seen in her room this AM Patient SBA for transfers Down to 1 liter 02 by N/C Day pass scheduled for tomorrow Review of Systems Pulmonary: Dyspnea Neurological: Weakness Objective Physician Exam Last Set of Vital Signs Vital Signs Date Time Temp Pulse Resp B/P (MAP) Pulse Ox O2 Delivery O2 Flow Rate FiO2 06/08/18 08:27 89 150/87 (108) 96 Nasal Cannula 1.00 06/08/18 05:40 97.6 20 Capillary Refill : I&O Intake and Output 06/07/18 23:59 Intake Total 1500 ml Balance 1500 ml Intake Oral 1500 ml # Voids 10 # Bowel Movements 3 General: Alert, Oriented X3, Cooperative, No Acute Distress HEENT: Atraumatic, PERRLA, EOMI, Mucous Memb Moist/Monserrate Neck: Other (Trach in Place) Lungs: Clear to Auscultation Heart: Regular Rate Abdomen: Normal Bowel Sounds, Soft, No Tenderness, Other (obese with peg site healing well) Extremities: Other (Trace ankle edema) Neuro: Other (Proximal weakness Both lower limbs Strength 3+/5 Both upper limbs ) Psych/Mental Status: Other (anxiety) Results Lab Data Laboratory Tests 06/05/18 14:15: Urine Color YELLOW, Urine Clarity CLEAR, Urine pH 6, Urine Specific [place] 1.015L, Urine Protein NEGATIVE, Urine Glucose (UA) NEGATIVE, Urine Ketones NEGATIVE, Urine Nitrite NEGATIVE, Urine Bilirubin NEGATIVE, Urine Urobilinogen NORMAL, Urine Leukocyte Esterase 1+H, Urine RBC (Auto) NEGATIVE, Urine RBC NONE , Urine WBC 5-10H, Urine Squamous Epithelial Cells 5-10, Urine Crystals NONE, Urine Bacteria TRACE, Urine Casts NONE, Urine Mucus SMALLH, Urine Culture Indicated YES Microbiology 06/05/18 Urine Culture - Final, Complete See Report Assessment/Plan Assessment and Plan 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
--- NOTE | 2018-06-08 10:59 | Physical Therapy Daily Note ---
PT Daily Note-Current Subjective States that she is tired today. Pain Numeric Pain Scale: 0-No Pain Transfers Therapy Code Descriptions/Definitions Functional [place] Measure: 0=Not Assessed/NA 4=Minimal Assistance 1=Total Assistance 5=Supervision or Setup 2=Maximal Assistance 6=Modified [place] 3=Moderate Assistance 7=Complete [place] Therapy Quality Codes: 6 Independent with activity with or without an assistive device 5 Patient requires set up or clean up by helper. Patient completes activity by themselves 4 Supervision or touching assist (CGA). [place] provide cues , steadying assist 3 The helper provides less than half the effort to complete the activity 2 The helper provides more than half the effort to complete the activity 1 Dependent. The helper does all the effort to complete an activity 7 Patient refused to complete or attempt activity 9 The patient did not perform the activity before the current illness or injury 88 Not attempted due to Medical conditions or safety concerns Transfers (B, C, W/C) (FIM): 5 Scootin Rollin Supine to/from Sit: 5 Sit to/from Stand: 5 Gait Training Gait (FIM): 2 Distance (FIM): 0=755-13 ft Distance: 100' Gait Level of Assist: 5 Gait Persons Needed: 1 Gait Assistive Device: FWW Exercises Seated Therapy Exercises: LE Protocol Standin way Ex=Flex, Abd, Ext NuStep Minutes: 5 NuStep Workload: 1 Assessment Current Status: Excellent Progress The patient had some SOB during activities. PT Short Term Goals Short Term Goals Time Frame: May 24, 2018 Transfers (B,C,W/C) (FIM): 3 (met) Gait (FIM): 1 (met) Gait Distance Comment: 5' Gait Level of Assist: 4 Gait Assistive Device: Parallel Bars Wheelchair (FIM): 1 Wheelchair Distance: 150' PT Usp Goals Usp Goals PT Data Entry Email Processor Goals Time Frame: Jun 07, 2018 Transfers (B,C,W/C) (FIM): 4 Sit to Lying (QC): 4 Lying-Sitting on Side/Bed(QC): 4 Sit to Stand (QC): 4 Rollin Roll Left to Right (QC): 4 Chair/Ttp-xk-Hqqda Xfer(QC): 3 Car Transfer (QC): 3 Gait (FIM): 1 Distance: 20' Walk 10 feet (QC): 4 Gait Level of Assist: 4 Gait Assistive Device: FWW Wheelchair (FIM): 2 Distance: 50' Wheelchair Level of Assist: 5 Wheel 50 feet with 2 turns (QC: 4 PT Plan Treatment/Plan Treatment Plan: Continue Plan of Care Treatment Plan: Bed Mobility, Concurrent Therapy, Education, Functional Activity Fede, Functional Strength, Group Therapy, Gait, Safety, Therapeutic Exercise, Transfers Treatment Duration: Jun 07, 2018 Frequency: At least 5 of 7 days/Wk (IRF) Estimated Hrs Per Day: 1.5 hours per day Patient and/or Family Agrees t: Yes Time/GCodes Time In: 900 Time Out: 940 Total Billed Treatment Time: 40 Total Billed Treatment 1, EX x 30', GT x 10' SARAH COLLAZO PT Jun 08, 2018 10:59
--- NOTE | 2018-06-08 11:50 | NUR ---
Dr. Pringle here to see patient.
[2018-06-08] MEDS: PATCH REMOVAL TP SCH (11:53)
[2018-06-08] MEDS: SCOPOLAMINE 1.5 MG (TRANSDERM-SCOP) PATCH TD SCH (11:53)
--- NOTE | 2018-06-08 12:35 | Progress Note-Hospitalist ---
Subjective HPI/CC On Admission Date Seen by Provider: Jun 08, 2018 Time Seen by Provider: 11:30 CC: Debility HPI: This is a 58-year-old white female clinic patient of Dr. Ward known to me from ICU stay on a ventilator 8 weeks ago he was unable to be weaned so she was transferred to [place] and has had a complicated course including trach placement for long-term vent use and PEG tube placement. She has been sent to inpatient rehabilitation for further recovery prior to discharge from facility. She reports nausea so I have ordered scopolamine patch and Zofran and is now from 4-8 mg every 6 hours. I review home medication and current labs and vitals. She has no complaints except for nausea. Subjective/Events-last exam Patient doing well Had a haircut Ready for discharge next week Will have pass tomorrow to see how things go We'll recheck labs Review of Systems General: Fatigue Objective Exam Vital Signs Vital Signs Date Time Temp Pulse Resp B/P (MAP) Pulse Ox O2 Delivery O2 Flow Rate FiO2 06/08/18 08:51 Nasal Cannula 1.00 06/08/18 08:27 89 150/87 (108) 96 06/08/18 05:40 97.6 20 Capillary Refill : General Appearance: No Apparent Distress, WD/WN, Chronically ill Respiratory: Chest Non Tender, Lungs Clear, Normal Breath Sounds, No Accessory Muscle Use, No Respiratory Distress Cardiovascular: Regular Rate, Rhythm, No Edema, No Gallop, No JVD, No Murmur, Normal Peripheral Pulses Neurologic/Psychiatric: Alert, Oriented x3, No Motor/Sensory Deficits, Normal Mood/Affect Results/Procedures Lab Patient resulted labs reviewed. Assessment/Plan Assessment and Plan Assess & Plan/Chief Complaint Assessment: Severe debility following critical illness and vent dependence Trach now DC PEG tube now DC Nausea resolved Mental illness precluding fast recovery Current smoker COPD Status post pneumonia Plan: Monitor closely Inpatient rehabilitation protocol with therapies Incentive spirometer Check labs in am Diagnosis/Problems Diagnosis/Problems (1) Myopathy Status: Acute (2) Nausea Status: Resolved Resolution Date/Time: 05/25/18 @ 14:29 (3) Chronic mental illness Status: Chronic (4) Personal history of supraventricular tachycardia Status: Chronic (5) Smoker Status: Chronic (6) Hypertension Status: Chronic Qualifiers: Hypertension type: essential hypertension Qualified Codes: I10 - Essential (primary) hypertension (7) Bipolar disorder Status: Chronic Qualifiers: Active/Remission status: remission status unspecified Qualified Codes: F31.9 - Bipolar disorder, unspecified (8) COPD (chronic obstructive pulmonary disease) Status: Chronic Qualifiers: COPD type: unspecified COPD Qualified Codes: J44.9 - Chronic obstructive pulmonary disease, unspecified Clinical Quality Measures DVT/VTE Risk/Contraindication: Risk Factor Score Per Nursin RFS Level Per Nursing on Admit: 4+=Very High SAMANTHA COLLIER DO Jun 08, 2018 12:35
[2018-06-08] MEDS: ADVAIR HFA 115/21 MCG INHALER 8 GM IH SCH ×2 (16:01→19:57)
[2018-06-08 16:41] VITALS: BP 136/83
[2018-06-08] MEDS: OLANZapine 5 MG (ZyPREXA) TAB PO SCH (20:43)
[2018-06-08] MEDS: ATORVASTATIN 40 MG (LIPITOR) TABLET PO SCH (20:43)
[2018-06-08] MEDS: DONEPEZIL 10 MG (ARICEPT) TAB PO SCH (20:43)
[2018-06-09] MEDS: PROMETHAZINE 25 MG (PHENERGAN) TAB PO SCH ×3 (00:47→16:25)
[2018-06-09 06:14] VITALS: BP 149/80
[2018-06-09] MEDS: PANTOPRAZOLE 40 MG (PROTONIX) TAB PO SCH ×2 (06:44→20:56)
[2018-06-09] MEDS: CYANOCOBALAMIN 1,000 MCG (VITAMIN B-12) TABLET PO SCH (06:44)
[2018-06-09] MEDS: LACTOBACILLUS ACIDOPHILUS (PROBIOTIC) CAPSULE PO SCH ×3 (06:44→16:25)
[2018-06-09] MEDS: MULTIVIT W/MINERALS TAB (THERAGRAN M) PO SCH (06:44)
[2018-06-09 07:05] LABS: BASOPHILS # (AUTO) 0.1 10^3/uL (0.0-0.1); BASOPHILS % (AUTO) 1 % (0-10); EOSINOPHILS # (AUTO) 1.1 10^3/uL (0.0-0.3); EOSINOPHILS % (AUTO) 9 % (0-10); HEMATOCRIT 42 % (35-52); HEMOGLOBIN 12.5 G/DL (11.5-16.0); LYMPHOCYTES # (AUTO) 2.7 X 10^3 (1.0-4.0); LYMPHOCYTES % (AUTO) 22 % (12-44); MEAN CORPUSCULAR HEMOGLOBIN 28 PG (25-34); MEAN CORPUSCULAR HGB CONC 30 G/DL (32-36); MEAN CORPUSCULAR VOLUME 92 FL (80-99); MEAN PLATELET VOLUME 10.5 FL (7.4-10.4); MONOCYTES # (AUTO) 0.9 X 10^3 (0.0-1.0); MONOCYTES % (AUTO) 7 % (0-12); NEUTROPHILS # (AUTO) 7.3 X 10^3 (1.8-7.8); NEUTROPHILS % (AUTO) 61 % (42-75); PLATELET COUNT 377 10^3/uL (130-400); RED BLOOD COUNT 4.52 10^6/uL (4.35-5.85); RED CELL DISTRIBUTION WIDTH 17.6 % (10.0-14.5)
[2018-06-09 07:25] LABS: ALANINE AMINOTRANSFERASE 23 U/L (0-55); ALBUMIN 3.9 GM/DL (3.2-4.5); ALKALINE PHOSPHATASE 100 U/L (40-136); BILIRUBIN,TOTAL 0.3 MG/DL (0.1-1.0); BUN/CREATININE RATIO 15; CALCIUM 9.7 MG/DL (8.5-10.1); CARBON DIOXIDE 28 MMOL/L (21-32); CHLORIDE 105 MMOL/L (98-107); CREATININE SERUM 0.86 MG/DL (0.60-1.30); GFR ESTIMATED > 60; GLUCOSE 90 MG/DL (70-105); POTASSIUM 3.8 MMOL/L (3.6-5.0); SODIUM 146 MMOL/L (135-145); TOTAL PROTEIN 6.8 GM/DL (6.4-8.2)
[2018-06-09] MEDS: MELOXICAM 7.5 MG (MOBIC) TABLET PO SCH (08:02)
[2018-06-09] MEDS: LORATADINE (CLARITIN) 10 MG TAB PO SCH (08:02)
[2018-06-09] MEDS: SUCRALFATE 1 GM (CARAFATE) TAB PO SCH ×3 (08:02→20:56)
[2018-06-09] MEDS: meTOprolol TARTRATE 50 MG (LOPRESSOR) TAB PO SCH ×2 (08:03→20:56)
[2018-06-09] MEDS: DOCUSATE SODIUM 100 MG (COLACE) CAP PO SCH ×2 (08:05→21:52)
[2018-06-09] MEDS: ENOXAPARIN 40 MG/0.4 ML (LOVENOX) SYR SC SCH (08:07)
[2018-06-09] MEDS: TRIAMCINOLONE 0.5% CR (KENALOG) 15 GM TUBE TOP SCH ×3 (08:07→21:52)
[2018-06-09] MEDS: ARTIFICAL TEARS 0.4 ML UNIT DOSE (REFRESH PLUS) OU SCH ×3 (08:08→21:52)
[2018-06-09] MEDS: DICLOFENAC 1% GEL 100 GM (VOLTAREN) TUBE TOP SCH ×4 (08:08→20:57)
--- NOTE | 2018-06-09 09:30 | NUR ---
[facility] [employer] HAD NOT DELIVERED PORTABLE O2 FOR HOME PASS TODAY. HERBER, JEWELRY SORTER, STATES HILL (DIRECTOR OF RT) SAID A HOSPITAL LOANER COULD BE USED FOR DAY PASS. PATIENT AND DAUGHTER WAS INSTRUCTED HOW TO USE PORTABLE TANK AND TEACHING DONE NOT TO SMOKE.
[2018-06-09] MEDS: HYDROcodone/APAP 10 MG/325 MG (LORTAB) TAB PO PRN ×2 (10:35→20:59)
[2018-06-09] MEDS: ADVAIR HFA 115/21 MCG INHALER 8 GM IH SCH ×2 (10:54→21:28)
--- NOTE | 2018-06-09 11:00 | NUR ---
ESCORTED TO FRONT DOOR WITH PATIENT IN WHEELCHAIR AND WITH PORTABLE O2 AND WALKER. ALSO HAS ON GAIT BELT FOR HOME USE. GOT IN TO CAR WITH MINIMAL ASST. IS ANXIOUS ABOUT GOING ON DAY PASS BUT ALSO LOOKING FORWARD TO IT. DAUGHTER INSTRUCTED MAY ONLY BE GONE 4.5 HOURS DUE TO LIMITED OXYGEN IN TANK. VOICES UNDERSTANDING.
--- NOTE | 2018-06-09 11:15 | NUR ---
RECEIVED CALL FROM DAUGHTER THAT WHEN THEY GOT TO PATIENT'S HOUSE, PATIENT WASN'T ABLE TO PULL SELF UP OUT OF CAR WELL AND "SLIPPED" DOWN. NOW SITTING ON GROUND AND UNABLE TO GET UP. NURSE ADVISED THEM TO CALL EMS IF THEY WERE UNABLE TO GET HER UP.
--- NOTE | 2018-06-09 11:29 | NUR ---
0915-- THIS RT TOOK E TANK TO PT'S ROOM ATT. RN NOTIFIED THAT RT NEEDED TO GO OVER OXYGEN SAFETY AND HOME USE. - PERMISSION TO TAKE TANK TANK OFF PROPERTY PER BALTAZAR RIVERA.RT GROUND INSTRUCTOR BASIC. --ATTEMPTS X2 TO CALL TO VERIFY---TXT MSG AT 1032 VERIFYING INFORMATION CORRECT. 1130---RT TO 2ND FLOOR TO CHECK TO SEE IF PATIENT HAD LEFT. RT HAD NEVER RECEIVED CALL TO INSTRUCT SAFETY. PT WAS GONE FROM THE FLOOR AT THIS TIME. PT HAD ALREADY BEEN ESCORTED OFF PREMISES. NO INSTRUCTIONS GIVEN.
--- NOTE | 2018-06-09 11:30 | NUR ---
RECEIVED CALL THAT PATIENT WAS BACK AND WAITING AT FRONT DOOR. WHEN NURSE WENT TO ASSIST PATIENT OUT OF CAR, PATIENT TOLERATED WELL AND GOT UP WITH MINIMAL HELP. PATIENT STATES IT WORKED WELL THIS TIME BECAUSE SHE HELD ONTO CAR DOOR HANDLE AND NURSE SUPPORTED HER WITH BELT. DAUGHTER CRYING, STATING "THIS ISN'T GOING TO WORK WITH ME HELPING." STATES SHE WORKS IN [employer] AND WON'T BE ABLE TO HELP PATIENT MUCH. ASSISTED BACK TO ROOM. AGAIN, STATES DID NOT FALL, ONLY "SLIPPED" DOWN. DENIES INJURY.
[2018-06-09 11:50] VITALS: BP 148/95
--- NOTE | 2018-06-09 13:10 | Progress Note-Hospitalist ---
Subjective HPI/CC On Admission Date Seen by Provider: Jun 09, 2018 Time Seen by Provider: 12:00 CC: Debility HPI: This is a 58-year-old white female clinic patient of Dr. Ward known to me from ICU stay on a ventilator 8 weeks ago he was unable to be weaned so she was transferred to [place] and has had a complicated course including trach placement for long-term vent use and PEG tube placement. She has been sent to inpatient rehabilitation for further recovery prior to discharge from facility. She reports nausea so I have ordered scopolamine patch and Zofran and is now from 4-8 mg every 6 hours. I review home medication and current labs and vitals. She has no complaints except for nausea. Subjective/Events-last exam Had a day past but failed when she had a slight fall out of her wheelchair and no one could pick her up Daughter at the bedside Eating lunch Frustrated that she failed at home Tried to reassure her and encourage her and motivate her Bowels are moving Denies any pain Reviewed labs Objective Exam Vital Signs Vital Signs Date Time Temp Pulse Resp B/P (MAP) Pulse Ox O2 Delivery O2 Flow Rate FiO2 06/09/18 17:16 Nasal Cannula 1.00 06/09/18 15:28 98.2 89 18 138/87 (104) 95 Capillary Refill : General Appearance: No Apparent Distress, WD/WN, Chronically ill Respiratory: Chest Non Tender, Lungs Clear, Normal Breath Sounds, No Accessory Muscle Use, No Respiratory Distress Cardiovascular: Regular Rate, Rhythm, No Edema, No Gallop, No JVD, No Murmur, Normal Peripheral Pulses Neurologic/Psychiatric: Alert, Oriented x3, No Motor/Sensory Deficits, Normal Mood/Affect Results/Procedures Lab Laboratory Tests 06/09/18 06:38 Patient resulted labs reviewed. Assessment/Plan Assessment and Plan Assess & Plan/Chief Complaint Assessment: Severe debility following critical illness and vent dependence Trach now DC PEG tube now DC Nausea resolved Mental illness precluding fast recovery Current smoker COPD Status post pneumonia Plan: Monitor closely Inpatient rehabilitation protocol with therapies Incentive spirometer Failed at home on day pass due to fall and could not get up Diagnosis/Problems Diagnosis/Problems (1) Myopathy Status: Acute (2) Nausea Status: Resolved Resolution Date/Time: 05/25/18 @ 14:29 (3) Chronic mental illness Status: Chronic (4) Personal history of supraventricular tachycardia Status: Chronic (5) Smoker Status: Chronic (6) Hypertension Status: Chronic Qualifiers: Hypertension type: essential hypertension Qualified Codes: I10 - Essential (primary) hypertension (7) Bipolar disorder Status: Chronic Qualifiers: Active/Remission status: remission status unspecified Qualified Codes: F31.9 - Bipolar disorder, unspecified (8) COPD (chronic obstructive pulmonary disease) Status: Chronic Qualifiers: COPD type: unspecified COPD Qualified Codes: J44.9 - Chronic obstructive pulmonary disease, unspecified Clinical Quality Measures DVT/VTE Risk/Contraindication: Risk Factor Score Per Nursin RFS Level Per Nursing on Admit: 4+=Very High SAMANTHA COLLIER DO Jun 09, 2018 13:10
[2018-06-09 15:28] VITALS: BP 138/87
--- NOTE | 2018-06-09 16:30 | NUR ---
DAUGHTER, , IS REQUESTING TO WORK WITH PT TOMORROW IN GETTING PATIENT IN AND OUT OF CAR. WOULD LIKE TO MEET WITH THEM AROUND 1100. MESSAGE WILL BE GIVEN TOMORROW. SHE WOULD ALSO LIKE TO TALK TO HERBER TOMORROW ABOUT ARRANGING HELP FOR INSIDE HOME UPON DISMISSAL.
[2018-06-09] MEDS: ATORVASTATIN 40 MG (LIPITOR) TABLET PO SCH (20:56)
[2018-06-09] MEDS: DONEPEZIL 10 MG (ARICEPT) TAB PO SCH (20:56)
[2018-06-09] MEDS: OLANZapine 5 MG (ZyPREXA) TAB PO SCH (20:56)
[2018-06-10] MEDS: PROMETHAZINE 25 MG (PHENERGAN) TAB PO SCH ×3 (00:27→17:08)
[2018-06-10 05:34] VITALS: BP 161/80
[2018-06-10] MEDS: MULTIVIT W/MINERALS TAB (THERAGRAN M) PO SCH (06:11)
[2018-06-10] MEDS: LACTOBACILLUS ACIDOPHILUS (PROBIOTIC) CAPSULE PO SCH ×3 (06:11→17:27)
[2018-06-10] MEDS: PANTOPRAZOLE 40 MG (PROTONIX) TAB PO SCH ×2 (06:11→20:34)
[2018-06-10] MEDS: CYANOCOBALAMIN 1,000 MCG (VITAMIN B-12) TABLET PO SCH (06:11)
--- NOTE | 2018-06-10 08:18 | Progress Note (SOAP) ---
Subjective Time Seen by a Provider: 08:15 Subjective/Events-last exam Patient is appointed. Had a home visit yesterday. Patient fell from car and did not hurt self. Patient needed please to help her up. Patient did not end up in her house Objective Exam Vital Signs Date Time Temp Pulse Resp B/P (MAP) Pulse Ox O2 Delivery O2 Flow Rate FiO2 06/10/18 05:34 97.8 98 18 161/80 (107) 92 Nasal Cannula 1.00 06/09/18 20:40 Nasal Cannula 1.00 06/09/18 17:16 Nasal Cannula 1.00 06/09/18 15:28 98.2 89 18 138/87 (104) 95 Nasal Cannula 1.00 06/09/18 11:50 97.4 80 20 148/95 (112) 95 Nasal Cannula 1.00 I & O 06/10/18 07:00 Intake Total 1370 ml Balance 1370 ml Capillary Refill : General Appearance: No Apparent Distress, WD/WN HEENT: Normal ENT Inspection Neck: Full Range of Motion, Normal Inspection Respiratory: No Accessory Muscle Use, No Respiratory Distress, Decreased Breath Sounds Cardiovascular: Regular Rate, Rhythm Gastrointestinal: non tender Results Lab Microbiology 06/05/18 Urine Culture - Final, Complete See Report Assessment/Plan Assessment/Plan Assess & Plan/Chief Complaint Myopathy. COPD. Morbid obesity. Bipolar. Anxiety. Depression. Psoriasis. On ventilator. PEG tube removed. Coronary artery disease. GERD. Hypothyroid. Morbid obesity. . 05/21/18. Myopathy. COPD. Morbid obesity. Bipolar. Anxiety. Depression. Psoriasis. Coronary artery disease. Hypothyroid. Morbid obesity. Patient states she's working hard. . 05/22/18. Patient feeling good today. CT of the chest may showpulmonary emboli. COPD. Morbid obesity. Bipolar. Psoriasis. Coronary artery disease Hypothyroid. . 05/23/18. Trach extubated. Patient breathing good. V/Q scan negative for pulmonary embolism. Morbid obesity. Psoriasis. Coronary artery disease. Hypothyroid. Patient feel she is improving. . 05/24/18. Morbid obesity. Psoriasis. Disuse myopathy. Coronary artery disease. Bipolar. Hypothyroid. Current . Disuse myopathy. Psoriasis. Coronary artery disease. Bipolar. Hypothyroid. Nauseousness. To add Phenergan.. . 06/06/17. Disuse myopathy. COPD. Psoriasis. Bipolar. Patient feeling better Increased the dose of Zyprexa and now decreased it . 05/28/18. Disuse myopathy. Psoriasis. Bipolar. Coronary artery disease. Hypothyroid. 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 . 05/29/18. Disuse myopathy psoriasis. Bipolar. CAD. Hypothyroid. Patient feeling good.. . 05/31/18. Disuse myopathy. Psoriasis. Bipolar. CAD. Hypothyroid patient walking good with walker. Patient seen yesterday area . 06/05/18. Disuse myopathy. Psoriasis. Bipolar. UTI. CAD. Patient starting to get around better. Trying to titrate off oxygen. . Patient seen on 208. Patient out of isolation. 06/07/18. Patient positive. To try to wean off oxygen. Disuse myopathy. Psoriasis. Bipolar. UTI resolved. CAD.. . 06/10/18. Disuse myopathy. Psoriasis. Bipolar. UTI resolved. Patient had a home visit yesterday but fell when trying to get out of the car needed pOLICE to get her off Clinical Quality Measures DVT/VTE Risk/Contraindication: Risk Factor Score Per Nursin RFS Level Per Nursing on Admit: 4+=Very High JOCELYNE MEI DO Jun 10, 2018 08:17
[2018-06-10] MEDS: LORATADINE (CLARITIN) 10 MG TAB PO SCH (08:23)
[2018-06-10] MEDS: ENOXAPARIN 40 MG/0.4 ML (LOVENOX) SYR SC SCH (08:23)
[2018-06-10] MEDS: meTOprolol TARTRATE 50 MG (LOPRESSOR) TAB PO SCH ×2 (08:23→20:35)
[2018-06-10] MEDS: MELOXICAM 7.5 MG (MOBIC) TABLET PO SCH (08:23)
[2018-06-10] MEDS: SUCRALFATE 1 GM (CARAFATE) TAB PO SCH ×3 (08:23→20:35)
--- NOTE | 2018-06-10 09:11 | PM&R Progress Note ---
Subjective This was a face to face visit with the patient. Date Seen by Provider: Jun 10, 2018 Time Seen by Provider: 07:45 Subjective/Events-last exam Patient was seen in her room this AM .Day pass did not go well yesterday due to difficulty with car transfers Therapy to review this with Patient and family today Down to 1 liter 02 by N/C at this time Objective Physician Exam Last Set of Vital Signs Vital Signs Date Time Temp Pulse Resp B/P (MAP) Pulse Ox O2 Delivery O2 Flow Rate FiO2 06/10/18 05:34 97.8 98 18 161/80 (107) 92 Nasal Cannula 1.00 Capillary Refill : I&O Intake and Output 06/10/18 00:00 Intake Total 1320 ml Balance 1320 ml Intake Oral 1320 ml # Voids 10 # Bowel Movements 3 General: Alert, Oriented X3, Cooperative, No Acute Distress HEENT: Atraumatic, PERRLA, EOMI, Mucous Memb Moist/[place] Neck: Other (Trach in Place) Lungs: Clear to Auscultation Heart: Regular Rate Abdomen: Normal Bowel Sounds, Soft, No Tenderness, Other (obese with peg site healing well) Extremities: Other (Trace ankle edema) Neuro: Other (Proximal weakness Both lower limbs Strength 3+/5 Both upper limbs ) Psych/Mental Status: Other (anxiety) Results Lab Data Laboratory Tests 06/09/18 06:38: White Blood Count 12.0H, Red Blood Count 4.52, Hemoglobin 12.5, Hematocrit 42, Mean Corpuscular Volume 92, Mean Corpuscular Hemoglobin 28, Mean Corpuscular Hemoglobin Concent 30L, Red Cell Distribution Width 17.6H, Platelet Count 377, Mean Platelet Volume 10.5H, Neutrophils (%) (Auto) 61, Lymphocytes (%) (Auto) 22 , Monocytes (%) (Auto) 7, Eosinophils (%) (Auto) 9, Basophils (%) (Auto) 1, Neutrophils # (Auto) 7.3, Lymphocytes # (Auto) 2.7, Monocytes # (Auto) 0.9, Eosinophils # (Auto) 1.1H, Basophils # (Auto) 0.1, Sodium Level 146H, Potassium Level 3.8, Chloride Level 105, Carbon Dioxide Level 28, Anion Gap 13, Blood Urea Nitrogen 13, Creatinine 0.86, Estimat Glomerular Filtration Rate > 60, BUN/ Creatinine Ratio 15, Glucose Level 90, Calcium Level 9.7, Corrected Calcium 9.8 , Total Bilirubin 0.3, Aspartate Amino Transf (AST/SGOT) 29, Alanine Aminotransferase (ALT/SGPT) 23, Alkaline Phosphatase 100, Total Protein 6.8, Albumin 3.9 Microbiology 06/05/18 Urine Culture - Final, Complete See Report Assessment/Plan Assessment and Plan 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 sepsis improving Copd Resp insuff wean from 02 as able Trach s/p decannulation DVT prophylaxis on Lovenox subcut OA Tobaccoism Anxiety UTI treated Shoulder pain improved with voltaren Onychomycosis s/p debridement DPM Idiopathic PN Fall from car during Day pass no injury sustained Plan Continue PT/OT Therapy to review Car transfers with patient and family Discharge tentatively set for later this week SW to f/u with patient family re this Team Conference 06-12-18 F/U with DR oconnell PCP prn Last day for me here Hospitalist service to assume care as per Administrators request Co-Morbidities that are continuing to impact the rehab process: (include details ) JOSE COOK MD Jun 10, 2018 09:10
[2018-06-10] MEDS: ARTIFICAL TEARS 0.4 ML UNIT DOSE (REFRESH PLUS) OU SCH ×3 (09:40→20:35)
[2018-06-10] MEDS: TRIAMCINOLONE 0.5% CR (KENALOG) 15 GM TUBE TOP SCH ×3 (09:41→20:40)
[2018-06-10] MEDS: DOCUSATE SODIUM 100 MG (COLACE) CAP PO SCH ×2 (09:41→20:40)
[2018-06-10] MEDS: DICLOFENAC 1% GEL 100 GM (VOLTAREN) TUBE TOP SCH ×4 (09:41→20:42)
--- NOTE | 2018-06-10 10:18 | Physical Therapy Daily Note ---
PT Daily Note-Current Subjective Nursing and pt. report that pts home visit failed in that she slipped out of the car before she ever got on her feet to walk to the door. EMS came to help get pt. on her feet and she came back to the hospital with nurse assist out of the car. Pt. states her daughter is coming this morning for some training about how to do car TRF. Pt. seemed frustrated, discouraged. Pt. is negative and resists instruction this morning regarding car TRF instruction as well as safe O2 tube use. Pain Location: No Pain Reported Mental Status Patient Orientation: Person, Place, Time, Situation Attachments: Oxygen (2L) Transfers Therapy Code Descriptions/Definitions Functional [place] Measure: 0=Not Assessed/NA 4=Minimal Assistance 1=Total Assistance 5=Supervision or Setup 2=Maximal Assistance 6=Modified [place] 3=Moderate Assistance 7=Complete [place] Therapy Quality Codes: 6 Independent with activity with or without an assistive device 5 Patient requires set up or clean up by helper. Patient completes activity by themselves 4 Supervision or touching assist (CGA). [place] provide cues , steadying assist 3 The helper provides less than half the effort to complete the activity 2 The helper provides more than half the effort to complete the activity 1 Dependent. The helper does all the effort to complete an activity 7 Patient refused to complete or attempt activity 9 The patient did not perform the activity before the current illness or injury 88 Not attempted due to Medical conditions or safety concerns Transfers (B, C, W/C) (FIM): 5 Scootin Rollin Supine to/from Sit: 5 Sit to/from Stand: 5 (from high surface) car TRF at lowest level on simulator requires mod assist to come up . Pt. instructed to have caregiver stabilize the car door and pull/push from it as caregiver also utilizes gait belt etc. Gait Training Does the Patient Walk?: Yes Gait (FIM): 2 Distance (FIM): 7=[phone] ft ([id number]) Gait Level of Assist: 4 Gait Persons Needed: 1 Gait Assistive Device: FWW pt. with O2 at 1 L and sats > 90% each trial. Pt. still needs assist and instruction to manage O2 tubing and does not heed instruction as to how to turn safely with the tubing today Wheelchair Training Does the Pt Use a Wheelchair?: Yes Wheelchair (FIM): 5 Wheelchair Distance: 3=150 ft (150x2) Wheelchair Level of Assist: 5 Type of Wheelchair: Manual needs instruction as to how to manage w/c in tight spaces Exercises Seated Therapy Exercises: Ankle pumps, Sit to stand, Long arc quads, Hip flexion Seated Reps: 12 NuStep Minutes: 10 NuStep Workload: 1 Treatments pt. in frustrated this date and needs much more encouragement to participate and regard safety Assessment Current Status: Fair Progress PT Short Term Goals Short Term Goals Time Frame: May 24, 2018 Transfers (B,C,W/C) (FIM): 3 (met) Gait (FIM): 1 (met) Gait Distance Comment: 5' Gait Level of Assist: 4 Gait Assistive Device: Parallel Bars Wheelchair (FIM): 1 Wheelchair Distance: 150' PT Snf Goals Snf Goals PT Test Engineering Technician Goals Time Frame: Jun 07, 2018 Transfers (B,C,W/C) (FIM): 4 Sit to Lying (QC): 4 Lying-Sitting on Side/Bed(QC): 4 Sit to Stand (QC): 4 Rollin Roll Left to Right (QC): 4 Chair/Axy-py-Zebtv Xfer(QC): 3 Car Transfer (QC): 3 Gait (FIM): 1 Distance: 20' Walk 10 feet (QC): 4 Gait Level of Assist: 4 Gait Assistive Device: FWW Wheelchair (FIM): 2 Distance: 50' Wheelchair Level of Assist: 5 Wheel 50 feet with 2 turns (QC: 4 PT Plan Treatment/Plan Treatment Plan: Continue Plan of Care Treatment Plan: Bed Mobility, Concurrent Therapy, Education, Functional Activity Fede, Functional Strength, Group Therapy, Gait, Safety, Therapeutic Exercise, Transfers Treatment Duration: Jun 07, 2018 Frequency: At least 5 of 7 days/Wk (IRF) Estimated Hrs Per Day: 1.5 hours per day Patient and/or Family Agrees t: Yes Safety Risks/Education Patient Education: Gait Training, Transfer Techniques, Correct Positioning, W/ C Management, Disease Process, Safety Issues Teaching Recipient: Patient Teaching Methods: Demonstration, Discussion Response to Teaching: Verbalize Understanding, Return Demonstration, Reinforcement Needed Time/GCodes Time In: 800 Time Out: 900 Total Billed Treatment Time: 60 Total Billed Treatment 1,GT25m,FA15m,EX20m G Codes Necessary: LYNN Kerns TENNIS RACKET REPAIRER Jun 10, 2018 10:18
[2018-06-10] MEDS: HYDROcodone/APAP 10 MG/325 MG (LORTAB) TAB PO PRN ×2 (10:39→17:29)
--- NOTE | 2018-06-10 10:52 | Speech Therapy Daily Note ---
Speech Daily Progress Note Subjective Date Seen by Provider: Jun 10, 2018 Time Seen by Provider: 00:30 Patient stated she was tired. She relayed her weekend experiences on her trial return home. Objective Patient was able to complete following directions at 90% with minimal verbal cuing. Assessment Assessment Current Status: Fair Progress Treatment Plan Continue Plan of Care Communication Comprehension: 3 Expression: 3 Social Cognition Social Interaction: 4 Problem Solvin Memory: 3 Speech Short Term Goals Short Term Goals Short Term Goals 1) Patient will recall information for safety awareness at 90% or greater with minimal cues. 2) Patient will recall new information from memory tasks at 90% accuracy or greater with minimal cues. 3) Patient will follow simple directions within her immediate living environment at 90% or greater with minimal cues. Speech Shelter Goals Shelter Goals Patient will improve safety awareness and independence with 90% accuracy. Speech-Plan Patient/Family Goals Patient/Family Goals: Patient plans to return home as soon as she is able. Treatment Plan Speech Therapy Treatment Plan: Continue Plan of Care Patient has progressed well toward meeting goals due to skilled ST services. Treatment Duration: Jun 07, 2018 Frequency: 5 times per week Estimated Hrs Per Day: .5 hour per day Rehab Potential: Good Barriers to Learning: Patient has decreased confidence about returning home. Pt/Family Agrees to Plan: Yes Safety Risks/Education Teaching Recipient: Patient Teaching Methods: Discussion Response to Teaching: Verbalize Understanding Education Topics Provided: Patient's safety. Time Speech Therapy Time In: 10:00 Speech Therapy Time Out: 10:30 Total Billed Time: 30 Billed Treatment Time 1, MAGUE Rubin Jun 10, 2018 10:51
[2018-06-10] MEDS: ADVAIR HFA 115/21 MCG INHALER 8 GM IH SCH ×2 (11:00→21:54)
--- NOTE | 2018-06-10 13:33 | Occupational Ther Daily Note ---
OT Current Status-Daily Note Subjective Pt seen in room, up in w/c, agreeable to OT. Pt had already showered, dressed, toileted and completed grooming tasks with nursing assistance. Appearance Alert, cooperative Mental Status/Objective Therapy Code Descriptions/Definitions Functional [place] Measure: 0=Not Assessed/NA 4=Minimal Assistance 1=Total Assistance 5=Supervision or Setup 2=Maximal Assistance 6=Modified [place] 3=Moderate Assistance 7=Complete [place] ADL-Treatment Therapy Code Descriptions/Definitions Functional [place] Measure: 0=Not Assessed/NA 4=Minimal Assistance 1=Total Assistance 5=Supervision or Setup 2=Maximal Assistance 6=Modified [place] 3=Moderate Assistance 7=Complete [place] Therapy Quality Codes: 6 Independent with activity with or without an assistive device 5 Patient requires set up or clean up by helper. Patient completes activity by themselves 4 Supervision or touching assist (CGA). [place] provide cues , steadying assist 3 The helper provides less than half the effort to complete the activity 2 The helper provides more than half the effort to complete the activity 1 Dependent. The helper does all the effort to complete an activity 7 Patient refused to complete or attempt activity 9 The patient did not perform the activity before the current illness or injury 88 Not attempted due to Medical conditions or safety concerns Other Treatment Pt propelled w/c to gym, with OT managing O2 tubing. She completed 7 minutes bilat UE ex on arm bike set at 10-15w resistance, taking several brief recovery breaks throughout. Ended the activity due to pain in L shoulder. Did bilat UE ex with exercise bar, working mostly on elbows and wrists due to discomfort at shoulder. Completed 20 reps bilat UE ex with pink foam or first assist registered nurse (upgraded from yellow), working on finger flex as well as intrinsics. To strengthen arms to help with transfers and ADLs. O2 in place throughout at 1L/min nc. Care transferred to PT. Education OT Patient Education: Exercise program, Progress toward Goal/Update tx plan, Purpose of tx/functional activities Teaching Recipient: Patient Teaching Methods: Demonstration, Discussion Response to Teaching: Verbalize Understanding, Return Demonstration, Reinforcement Needed OT Short Term Goals Short Term Goals Time Frame: May 24, 2018 Eating(FIM): 5 Grooming(FIM): 5 Bathing(FIM): 3 Upper Body Dressing(FIM): 5 Lower Body Dressing(FIM): 2 Toileting(FIM): 1 (one person) Transfers (B,C,W/C) (FIM): 3 (met) Toilet/Commode Transfer(FIM): 1 (one person) Additional Short Term Goals: 1-Demonstrate ADL Tasks, 2-Verbalize Understanding , 3-ImproveStrength/Fede 1=Demonstrate adherence to instructed precautions during ADL tasks. 2=Patient will verbalize/demonstrate understanding of assistive devices/ modifications for ADL. 3=Patient will improve strength/tolerance for activity to enable patient to perform ADL's. OT Snf Goals Snf Goals Time Frame: Jun 07, 2018 Eating (FIM): 7 Eating (QC): 6 Groomin Oral Hygiene (QC): 6 Bathing(FIM): 5 Shower/Bathe Self (QC): 5 Upper Body Dressing(FIM): 6 Upper Body Dressing (QC): 6 Lower Body Dressing(FIM): 6 Lower Body Dressing (QC): 6 On/Off Footwear (QC): 6 Toileting(FIM): 6 Toileting Hygiene (QC): 6 Toilet/Commode Transfer(FIM): 6 Toilet/Commode Transfer (QC): 6 Shower Transfer(FIM): 6 Additional Goals: 1-Demonstrate ADL Tasks, 2-Verbalize Understanding, 3- ImproveStrength/Fede 1=Demonstrate adherence to instructed precautions during ADL tasks. 2=Patient will verbalize/demonstrate understanding of assistive devices/ modifications for ADL. 3=Patient will improve strength/tolerance for activity to enable patient to perform ADL's. OT Education/Plan Discharge Recommendations Plan/Recommendations: Continue POC Treatment Plan/Plan of Care Patient would benefit from OT for education, treatment and training to promote independence in ADL's, mobility, safety and/or upper extremity function for ADL' s. Plan of Care: ADL Retraining, Caregiver Training, Functional Mobility, Group Exercise/Act as Ind (education, exercise, activity tolerance, funct mobility, funtional actiities), UE Funct Exercise/Act, UE Neuromus Re-Ed/Coord, W/C Management Training, OTHER (energy conservation education) Treatment Duration: Jun 07, 2018 Frequency: At least 5 of 7 days/Wk (IRF) Estimated Hrs Per Day: 1.5 hours per day Agreement: Yes Rehab Potential: Good Time/GCodes Start Time: 10:30 Stop Time: 11:05 Total Time Billed (hr/min): 65 Billed Treatment Time visit, 65 minutes exercise JOE FIGUEROA OT Jun 10, 2018 13:33
--- NOTE | 2018-06-10 14:29 | Therapy Group Daily Note ---
Therapy Daily Group Note Patient Education Topic Other List Below (car TRF safety and technique) Exercises LE Seated Exercise, UE Exercise Other/Notes Pt. participated in PT group session this date. Pt. camr went via WC with assist for portable O2. Pts. introduced themselves and shared their New Years Resolutions. Pts. were distributed written illustrated cards with seated U&L extremity exercises on them and each patient read and demonstrated the exercises they were given while leading the others in exercise. The car simulator device was brought to the group. Safe car TRF was demonstrated with emphasis on sitting on car seat with both feet on ground when getting in/out as well as possibly sitting on a cushion in the car seat if needed for height and scooting seat to full back position to enter and exit car. Devices that attach to a car and allow for easier exit were discussed. Pt. to room after group with guy at hand, needs met Start Time: 13:00 Stop Time: 14:00 Total Billed Treatment Time: 60 Total Billed Treatment 1,GRP LYNN MARTINEZ MANAGER CLINICAL INFORMATICS Jun 10, 2018 14:29
--- NOTE | 2018-06-10 14:42 | NUR ---
Pt signed release of liability for day pass home w daughter this afternoon after working w PT on car transfers
--- NOTE | 2018-06-10 14:52 | NUR ---
BRIMMING MACHINE OPERATOR met with patient and daughter to review day pass from yesterday. Patient states she was unable to get out of daughter's car and lowered herself to the ground. Patient requested daughter contact police department to assist in lifting patient back into car. Patient then returned to hospital. PT worked with patient and daughter to complete car transfer in and out of daughter's car today. BRIMMING MACHINE OPERATOR recommended patient complete another home visit today to trial before proceeding with discharge on . BRIMMING MACHINE OPERATOR received input from PT in regards to safety when returning home with suggestions of SNF as patient has requested as well. BRIMMING MACHINE OPERATOR will re-address discharge plans with patient and daughter following home visit.
--- NOTE | 2018-06-10 15:01 | Physical Therapy Daily Note ---
PT Daily Note-Current Subjective Pt agreeable to practice car transfer with her daughter. During treatment, pt began to cry and said, "Maybe I should just go to a fdc." Transfers Therapy Code Descriptions/Definitions Functional [place] Measure: 0=Not Assessed/NA 4=Minimal Assistance 1=Total Assistance 5=Supervision or Setup 2=Maximal Assistance 6=Modified [place] 3=Moderate Assistance 7=Complete [place] Therapy Quality Codes: 6 Independent with activity with or without an assistive device 5 Patient requires set up or clean up by helper. Patient completes activity by themselves 4 Supervision or touching assist (CGA). [place] provide cues , steadying assist 3 The helper provides less than half the effort to complete the activity 2 The helper provides more than half the effort to complete the activity 1 Dependent. The helper does all the effort to complete an activity 7 Patient refused to complete or attempt activity 9 The patient did not perform the activity before the current illness or injury 88 Not attempted due to Medical conditions or safety concerns Treatments Patient and daughter training on car transfer with education on use of gait belt , sequencing, safety with sitting down into and getting out of the car. Education and instruction in use of gait belt. Education and daughter demonstrated ability to assist pt to get up out of the car with education on hand placement and rocking technique. Daughter and patient demonstrated ability to get out of the car. Assessment Pt apprehensive about car transfer and about being home alone at discharge. Pt and daughter were able to complete in/out of the car without assist. I do feel some concern regarding patient being home alone at discharge, discussed with SW and patient. Encouraged her to think about and discuss discharge plans with her daughter. PT Short Term Goals Short Term Goals Time Frame: May 24, 2018 Transfers (B,C,W/C) (FIM): 3 (met) Gait (FIM): 1 (met) Gait Distance Comment: 5' Gait Level of Assist: 4 Gait Assistive Device: Parallel Bars Wheelchair (FIM): 1 Wheelchair Distance: 150' PT Chcf Goals Chcf Goals PT Chcf Goals Time Frame: Jun 07, 2018 Transfers (B,C,W/C) (FIM): 4 Sit to Lying (QC): 4 Lying-Sitting on Side/Bed(QC): 4 Sit to Stand (QC): 4 Rollin Roll Left to Right (QC): 4 Chair/Ecc-pe-Pvoyk Xfer(QC): 3 Car Transfer (QC): 3 Gait (FIM): 1 Distance: 20' Walk 10 feet (QC): 4 Gait Level of Assist: 4 Gait Assistive Device: FWW Wheelchair (FIM): 2 Distance: 50' Wheelchair Level of Assist: 5 Wheel 50 feet with 2 turns (QC: 4 PT Plan Problem List Problem List: Activity Tolerance, Functional Strength, Safety, Balance, Gait, Transfer, Bed Mobility Treatment/Plan Treatment Plan: Continue Plan of Care Treatment Plan: Bed Mobility, Concurrent Therapy, Education, Functional Activity Fede, Functional Strength, Group Therapy, Gait, Safety, Therapeutic Exercise, Transfers Treatment Duration: Jun 07, 2018 Frequency: At least 5 of 7 days/Wk (IRF) Estimated Hrs Per Day: 1.5 hours per day Patient and/or Family Agrees t: Yes Safety Risks/Education Patient Education: Transfer Techniques, Safety Issues Teaching Recipient: Patient, Family Teaching Methods: Demonstration, Discussion Response to Teaching: Verbalize Understanding, Return Demonstration Time/GCodes Time In: 1105 Time Out: 1150 Total Billed Treatment Time: 45 Total Billed Treatment visit FA 45 PILLO DAWSON PT Jun 10, 2018 15:01
--- NOTE | 2018-06-10 17:09 | NUR ---
pt returned to room from home visit w harry
[2018-06-10 17:14] VITALS: BP 149/89
--- NOTE | 2018-06-10 19:21 | NUR ---
bedside report received from PUJA BLEVINS, assume care of pt
--- NOTE | 2018-06-10 20:00 | NUR ---
assessments & interventions completed, see assessments & interventions, pt up in w/c watching TV
[2018-06-10] MEDS: DONEPEZIL 10 MG (ARICEPT) TAB PO SCH (20:34)
[2018-06-10] MEDS: OLANZapine 5 MG (ZyPREXA) TAB PO SCH (20:34)
[2018-06-10] MEDS: ATORVASTATIN 40 MG (LIPITOR) TABLET PO SCH (20:34)
--- NOTE | 2018-06-10 20:34 | NUR ---
meds given whole with applesauce, refused Colace & Kenalog cream
--- NOTE | 2018-06-10 21:25 | NUR ---
back to bed with 1 person assist & walker
[2018-06-11] MEDS: PROMETHAZINE 25 MG (PHENERGAN) TAB PO SCH ×3 (00:18→16:29)
--- NOTE | 2018-06-11 05:30 | NUR ---
pt asked for waken up q 2hrs to get up to void, this was done
[2018-06-11 05:34] VITALS: BP 126/78
[2018-06-11] MEDS: LACTOBACILLUS ACIDOPHILUS (PROBIOTIC) CAPSULE PO SCH ×3 (06:58→16:29)
[2018-06-11] MEDS: PANTOPRAZOLE 40 MG (PROTONIX) TAB PO SCH ×2 (06:58→20:22)
[2018-06-11] MEDS: MULTIVIT W/MINERALS TAB (THERAGRAN M) PO SCH (06:58)
[2018-06-11] MEDS: CYANOCOBALAMIN 1,000 MCG (VITAMIN B-12) TABLET PO SCH (06:58)
--- NOTE | 2018-06-11 07:35 | NUR ---
bedside report given to XAVI BLEVINS
[2018-06-11] MEDS: ADVAIR HFA 115/21 MCG INHALER 8 GM IH SCH (07:38)
--- NOTE | 2018-06-11 08:00 | NUR ---
COMPLAIN TIRED TODAY. DOES NOT FEEL CAN GO BACK TO HER HOUSE. STATES AT DAY PASS YESTERDAY, WALKER AND WHEELCHAIR BOTH DID NOT FIT THROUGH HER DOOR WAYS. ALSO DID NOT HAVE ANY PROBLEMS GETTING IN OR OUT OF CAR YESTERDAY.
[2018-06-11] MEDS: SUCRALFATE 1 GM (CARAFATE) TAB PO SCH ×3 (08:39→20:22)
[2018-06-11] MEDS: meTOprolol TARTRATE 50 MG (LOPRESSOR) TAB PO SCH ×2 (08:40→20:22)
[2018-06-11] MEDS: ARTIFICAL TEARS 0.4 ML UNIT DOSE (REFRESH PLUS) OU SCH ×3 (08:40→20:32)
[2018-06-11] MEDS: DOCUSATE SODIUM 100 MG (COLACE) CAP PO SCH ×2 (08:40→20:32)
[2018-06-11] MEDS: MELOXICAM 7.5 MG (MOBIC) TABLET PO SCH (08:40)
[2018-06-11] MEDS: LORATADINE (CLARITIN) 10 MG TAB PO SCH (08:40)
[2018-06-11] MEDS: ENOXAPARIN 40 MG/0.4 ML (LOVENOX) SYR SC SCH (08:43)
[2018-06-11] MEDS: HYDROcodone/APAP 10 MG/325 MG (LORTAB) TAB PO PRN ×2 (08:50→16:41)
[2018-06-11] MEDS: DICLOFENAC 1% GEL 100 GM (VOLTAREN) TUBE TOP SCH ×4 (08:51→20:33)
[2018-06-11] MEDS: TRIAMCINOLONE 0.5% CR (KENALOG) 15 GM TUBE TOP SCH ×3 (08:51→20:32)
--- NOTE | 2018-06-11 11:00 | NUR ---
HAS NOT BEEN HAVING ANY FURTHER NAUSEA, SO DECIDED TO HOLD OFF ON SCOPALAMINE PATCH. WILL CONTINUE SCHEDULED PHENERGAN FOR NOW.
[2018-06-11] MEDS: SCOPOLAMINE 1.5 MG (TRANSDERM-SCOP) PATCH TD SCH (11:44)
[2018-06-11] MEDS: PATCH REMOVAL TP SCH (11:44)
--- NOTE | 2018-06-11 12:15 | PM&R Progress Note ---
Subjective This was a face to face visit with the patient. Date Seen by Provider: Jun 11, 2018 Time Seen by Provider: 11:45 Subjective/Events-last exam Patient was seen in her room Went on another day pass yesterday and it went very well Has worked on getting in and out of the car and doing well with that Needs to move to [facility] in [place] because she cannot manage going back to her house Her daughter who is involved in the housing development for section 8 housing will reach out to [facility] to start that process soon Denies any pain Bowels are moving Using incentive spirometer We will need oxygen supplementation at discharge Review of Systems General: Fatigue Pulmonary: Dyspnea Neurological: Other (Anxiety) Objective Physician Exam Last Set of Vital Signs Vital Signs Date Time Temp Pulse Resp B/P (MAP) Pulse Ox O2 Delivery O2 Flow Rate FiO2 06/11/18 08:00 Nasal Cannula 1.00 06/11/18 07:38 97 06/11/18 05:34 97.3 85 18 126/78 (94) Capillary Refill : I&O Intake and Output 06/11/18 00:00 Intake Total 1750 ml Balance 1750 ml Intake Oral 1750 ml # Voids 8 # Bowel Movements 2 General: Alert, Oriented X3, Cooperative, No Acute Distress HEENT: Atraumatic, PERRLA, EOMI, Mucous Memb Moist/[place] Neck: Other (healed trach site) Lungs: Clear to Auscultation Heart: Regular Rate Abdomen: Normal Bowel Sounds, Soft, No Tenderness, Other (healed PEG tube site) Extremities: Other (Trace ankle edema) Neuro: Other (Proximal weakness Both lower limbs Strength 3+/5 Both upper limbs ) Psych/Mental Status: Other (anxiety) Results Lab Data Laboratory Tests 06/09/18 06:38: White Blood Count 12.0H, Red Blood Count 4.52, Hemoglobin 12.5, Hematocrit 42, Mean Corpuscular Volume 92, Mean Corpuscular Hemoglobin 28, Mean Corpuscular Hemoglobin Concent 30L, Red Cell Distribution Width 17.6H, Platelet Count 377, Mean Platelet Volume 10.5H, Neutrophils (%) (Auto) 61, Lymphocytes (%) (Auto) 22 , Monocytes (%) (Auto) 7, Eosinophils (%) (Auto) 9, Basophils (%) (Auto) 1, Neutrophils # (Auto) 7.3, Lymphocytes # (Auto) 2.7, Monocytes # (Auto) 0.9, Eosinophils # (Auto) 1.1H, Basophils # (Auto) 0.1, Sodium Level 146H, Potassium Level 3.8, Chloride Level 105, Carbon Dioxide Level 28, Anion Gap 13, Blood Urea Nitrogen 13, Creatinine 0.86, Estimat Glomerular Filtration Rate > 60, BUN/ Creatinine Ratio 15, Glucose Level 90, Calcium Level 9.7, Corrected Calcium 9.8 , Total Bilirubin 0.3, Aspartate Amino Transf (AST/SGOT) 29, Alanine Aminotransferase (ALT/SGPT) 23, Alkaline Phosphatase 100, Total Protein 6.8, Albumin 3.9 Microbiology 06/05/18 Urine Culture - Final, Complete See Report Current Funtional Status Reviewed physical therapy and occupational therapy notes Participating in therapy Wheelchair-bound most the time Working towards independent ADLs Anxiety precludes rapid recovery Assessment/Plan Assessment and Plan (1) Myopathy Status: Acute (2) Nausea Status: Resolved (3) Chronic mental illness Status: Chronic (4) Personal history of supraventricular tachycardia Status: Chronic (5) Smoker Status: Chronic (6) Hypertension Qualifiers: Qualified Codes: I10 - Essential (primary) hypertension Status: Chronic (7) Bipolar disorder Qualifiers: Qualified Codes: F31.9 - Bipolar disorder, unspecified Status: Chronic (8) COPD (chronic obstructive pulmonary disease) Qualifiers: Qualified Codes: J44.9 - Chronic obstructive pulmonary disease, unspecified Status: Chronic Co-Morbidities that are continuing to impact the rehab process: (include details ) SAMANTHA COLLIER DO Jun 11, 2018 12:15
--- NOTE | 2018-06-11 12:43 | Physical Therapy Daily Note ---
PT Daily Note-Current Subjective Pt. seated in w/c upon arrival and agrees to therapy. During session, patient c /o L shoulder pain with movement, states she recently took pain medication. No objective pain rating given. Mental Status Patient Orientation: Normal For Age Transfers Therapy Code Descriptions/Definitions Functional [place] Measure: 0=Not Assessed/NA 4=Minimal Assistance 1=Total Assistance 5=Supervision or Setup 2=Maximal Assistance 6=Modified [place] 3=Moderate Assistance 7=Complete [place] Therapy Quality Codes: 6 Independent with activity with or without an assistive device 5 Patient requires set up or clean up by helper. Patient completes activity by themselves 4 Supervision or touching assist (CGA). [place] provide cues , steadying assist 3 The helper provides less than half the effort to complete the activity 2 The helper provides more than half the effort to complete the activity 1 Dependent. The helper does all the effort to complete an activity 7 Patient refused to complete or attempt activity 9 The patient did not perform the activity before the current illness or injury 88 Not attempted due to Medical conditions or safety concerns Transfers (B, C, W/C) (FIM): 4 Sit to/from Stand: 4 Gait Training Does the Patient Walk?: Yes Gait (FIM): 2 Distance (FIM): 8=752-56 ft Distance: 2 x 50 ft, x 80 ft Gait Level of Assist: 4 Gait Persons Needed: 1 Gait Assistive Device: FWW steady but slow gait pattern, O2 sats dropped briefly to 89% post ambulation and increased >95% with seated rest on 2L O2 Exercises Seated Therapy Exercises: Ankle pumps, Sit to stand (5 reps), Long arc quads, Hip flexion, Hamstring Curls, Hip abd/add Seated Reps: 20 NuStep Minutes: 15 Treatments gait, exercises Assessment Current Status: Good Progress Pt. is gradually improving gait distance but fatigues and O2 sats briefly decrease <90% on 2L O2 with ambulation. O2 sats during exercise remained >95%. Pt. returned to w/c in room post session with O2 in situ, call light in reach , and all needs met. PT Short Term Goals Short Term Goals Time Frame: May 24, 2018 Transfers (B,C,W/C) (FIM): 3 (met) Gait (FIM): 1 (met) Gait Distance Comment: 5' Gait Level of Assist: 4 Gait Assistive Device: Parallel Bars Wheelchair (FIM): 1 Wheelchair Distance: 150' PT [facility] Goals [facility] Goals PT [facility] Goals Time Frame: Jun 07, 2018 Transfers (B,C,W/C) (FIM): 4 Sit to Lying (QC): 4 Lying-Sitting on Side/Bed(QC): 4 Sit to Stand (QC): 4 Rollin Roll Left to Right (QC): 4 Chair/Eig-pw-Wucks Xfer(QC): 3 Car Transfer (QC): 3 Gait (FIM): 1 Distance: 20' Walk 10 feet (QC): 4 Gait Level of Assist: 4 Gait Assistive Device: FWW Wheelchair (FIM): 2 Distance: 50' Wheelchair Level of Assist: 5 Wheel 50 feet with 2 turns (QC: 4 PT Plan Treatment/Plan Treatment Plan: Continue Plan of Care Treatment Plan: Bed Mobility, Concurrent Therapy, Education, Functional Activity Fede, Functional Strength, Group Therapy, Gait, Safety, Therapeutic Exercise, Transfers Treatment Duration: Jun 07, 2018 Frequency: At least 5 of 7 days/Wk (IRF) Estimated Hrs Per Day: 1.5 hours per day Patient and/or Family Agrees t: Yes Time/GCodes Time In: 915 Time Out: 1015 Total Billed Treatment Time: 60 Total Billed Treatment 1, GT 15', Ex 45' LISA BERUMEN PT Jun 11, 2018 12:43
--- NOTE | 2018-06-11 12:47 | Occupational Ther Daily Note ---
OT Current Status-Daily Note Subjective Pt seen in room, up in w/c, agreeable to OT. Would like to shower. Appearance Alert, cooperative Mental Status/Objective Therapy Code Descriptions/Definitions Functional [place] Measure: 0=Not Assessed/NA 4=Minimal Assistance 1=Total Assistance 5=Supervision or Setup 2=Maximal Assistance 6=Modified [place] 3=Moderate Assistance 7=Complete [place] ADL-Treatment Pt reported that her w/c did not fit into her apartment yesterday and she and her daughter are talking about looking at other housing options such as senior apartments in [place]. She was able to self-direct oxygen management for showering but was often not aware of placement of O2 tubing during ADLs. She also directed setup of shower, with BSC in shower so that she had arms to help with pushing up. Up from w/c with SBA, walked to bathroom SBA, FWW. transferred into shower with SBA and CGA getting out of shower. Able to turn water on and retrieve towels. Washed and dried all parts except bottom, SBA when standing with FWW. Help to wash hair. Walked SBA, FWW to dress. Able to get Depends and slacks on over feet with min assist to use dressing stick. Stood SBA, FWW to pull pants up but needed help to get them over her bottom. Able to get arms into shirt but help needed to get shirt over head and pull it down in back. help to comb hair in back. Pt left up in w/c, all needs met. Therapy Code Descriptions/Definitions Functional [place] Measure: 0=Not Assessed/NA 4=Minimal Assistance 1=Total Assistance 5=Supervision or Setup 2=Maximal Assistance 6=Modified [place] 3=Moderate Assistance 7=Complete [place] Therapy Quality Codes: 6 Independent with activity with or without an assistive device 5 Patient requires set up or clean up by helper. Patient completes activity by themselves 4 Supervision or touching assist (CGA). [place] provide cues , steadying assist 3 The helper provides less than half the effort to complete the activity 2 The helper provides more than half the effort to complete the activity 1 Dependent. The helper does all the effort to complete an activity 7 Patient refused to complete or attempt activity 9 The patient did not perform the activity before the current illness or injury 88 Not attempted due to Medical conditions or safety concerns Grooming (FIM): 4 (Washed face and hands in shower, setup. Help to comb hair in back.) Bathing (FIM): 4 (Washed and dried all aprts except bottom, SBA, FWW. BSC in shower, grab bars, hand held shower) Upper Body (FIM): 3 (Help to get shirt over head and pulled down) Lower Body Dressing (FIM): 3 (Help to get L foot in, using dressing stick. Able to pull pants up, stand up SBA, FWW but help needed to pull pant sup in back) Shower Transfer(FIM): 4 (SBA going in, CGA coming out) Education OT Patient Education: Modified ADL techniques, Progress toward Goal/Update tx plan, Purpose of tx/functional activities, Use of adapted equipment Teaching Methods: Demonstration, Discussion Response to Teaching: Verbalize Understanding, Return Demonstration, Reinforcement Needed OT Short Term Goals Short Term Goals Time Frame: May 24, 2018 Eating(FIM): 5 Grooming(FIM): 5 Bathing(FIM): 3 Upper Body Dressing(FIM): 5 Lower Body Dressing(FIM): 2 Toileting(FIM): 1 (one person) Transfers (B,C,W/C) (FIM): 3 (met) Toilet/Commode Transfer(FIM): 1 (one person) Additional Short Term Goals: 1-Demonstrate ADL Tasks, 2-Verbalize Understanding , 3-ImproveStrength/Fede 1=Demonstrate adherence to instructed precautions during ADL tasks. 2=Patient will verbalize/demonstrate understanding of assistive devices/ modifications for ADL. 3=Patient will improve strength/tolerance for activity to enable patient to perform ADL's. OT Cloth Piecer Goals [facility] Goals Time Frame: Jun 07, 2018 Eating (FIM): 7 Eating (QC): 6 Groomin Oral Hygiene (QC): 6 Bathing(FIM): 5 Shower/Bathe Self (QC): 5 Upper Body Dressing(FIM): 6 Upper Body Dressing (QC): 6 Lower Body Dressing(FIM): 6 Lower Body Dressing (QC): 6 On/Off Footwear (QC): 6 Toileting(FIM): 6 Toileting Hygiene (QC): 6 Toilet/Commode Transfer(FIM): 6 Toilet/Commode Transfer (QC): 6 Shower Transfer(FIM): 6 Additional Goals: 1-Demonstrate ADL Tasks, 2-Verbalize Understanding, 3- ImproveStrength/Fede 1=Demonstrate adherence to instructed precautions during ADL tasks. 2=Patient will verbalize/demonstrate understanding of assistive devices/ modifications for ADL. 3=Patient will improve strength/tolerance for activity to enable patient to perform ADL's. OT Education/Plan Discharge Recommendations Plan/Recommendations: Continue POC Treatment Plan/Plan of Care Patient would benefit from OT for education, treatment and training to promote independence in ADL's, mobility, safety and/or upper extremity function for ADL' s. Plan of Care: ADL Retraining, Caregiver Training, Functional Mobility, Group Exercise/Act as Ind (education, exercise, activity tolerance, funct mobility, funtional actiities), UE Funct Exercise/Act, UE Neuromus Re-Ed/Coord, W/C Management Training, OTHER (energy conservation education) Treatment Duration: Jun 07, 2018 Frequency: At least 5 of 7 days/Wk (IRF) Estimated Hrs Per Day: 1.5 hours per day Agreement: Yes Rehab Potential: Good Time/GCodes Start Time: 10:15 Stop Time: 11:15 Total Time Billed (hr/min): 60 Billed Treatment Time visit, 60 minutes ADL JOE FIGUEROA OT Jun 11, 2018 12:47
--- NOTE | 2018-06-11 14:25 | Therapy Group Daily Note ---
Therapy Daily Group Note Patient Education Topic Home Safety, Fall Prevention Other/Notes Pt transported via w/c and O2 1L NC in place to [facility] for group. Group consisted of introductions (name and home safety concerns), [facility] FIM description and home safety education. Pt introduced self appropriately and actively listened to peers. Patient discussed her home safety issues with doorways and hallways being too narrow for FWW and w/c use. Pt verbalized understanding of educational topics and was able to contribute own strategies for home safety. Pt initiated discussions and was able to contribute to peer conversations throughout group. After therapy, patient returned to room with call light/phone in reach and O2 1L in place. All needs met in room. Start Time: 13:00 Stop Time: 14:00 Total Billed Treatment Time: 60 Total Billed Treatment 1 visit GRP 60 min DELMI TORRES PT Jun 11, 2018 14:25
[2018-06-11 17:37] VITALS: BP 145/81
[2018-06-11] MEDS: OLANZapine 5 MG (ZyPREXA) TAB PO SCH (20:22)
[2018-06-11] MEDS: DONEPEZIL 10 MG (ARICEPT) TAB PO SCH (20:22)
[2018-06-11] MEDS: ATORVASTATIN 40 MG (LIPITOR) TABLET PO SCH (20:22)
[2018-06-12] MEDS: ADVAIR HFA 115/21 MCG INHALER 8 GM IH SCH ×4 (00:10→19:49)
[2018-06-12] MEDS: PROMETHAZINE 25 MG (PHENERGAN) TAB PO SCH ×3 (00:17→17:40)
[2018-06-12 05:21] VITALS: BP 146/63
[2018-06-12] MEDS: PANTOPRAZOLE 40 MG (PROTONIX) TAB PO SCH ×2 (06:22→20:50)
[2018-06-12] MEDS: LACTOBACILLUS ACIDOPHILUS (PROBIOTIC) CAPSULE PO SCH ×3 (06:22→17:40)
[2018-06-12] MEDS: CYANOCOBALAMIN 1,000 MCG (VITAMIN B-12) TABLET PO SCH (06:22)
[2018-06-12] MEDS: MULTIVIT W/MINERALS TAB (THERAGRAN M) PO SCH (06:22)
[2018-06-12] MEDS: HYDROcodone/APAP 10 MG/325 MG (LORTAB) TAB PO PRN ×3 (06:42→20:57)
[2018-06-12] MEDS: LORATADINE (CLARITIN) 10 MG TAB PO SCH (08:12)
[2018-06-12] MEDS: MELOXICAM 7.5 MG (MOBIC) TABLET PO SCH (08:12)
[2018-06-12] MEDS: meTOprolol TARTRATE 50 MG (LOPRESSOR) TAB PO SCH ×2 (08:12→20:50)
[2018-06-12] MEDS: SUCRALFATE 1 GM (CARAFATE) TAB PO SCH ×3 (08:12→20:50)
[2018-06-12] MEDS: ARTIFICAL TEARS 0.4 ML UNIT DOSE (REFRESH PLUS) OU SCH ×3 (08:13→20:50)
[2018-06-12] MEDS: ENOXAPARIN 40 MG/0.4 ML (LOVENOX) SYR SC SCH (08:14)
--- NOTE | 2018-06-12 08:25 | Progress Note (SOAP) ---
Subjective Time Seen by a Provider: 08:21 Subjective/Events-last exam Patient tried home visit. Patient was able to get out of car. Patient wasn't able to get into her house. Patient looking to go to [place]. Patient feeling okay. Patient sitting in wheelchair comfortably Objective Exam Vital Signs Date Time Temp Pulse Resp B/P (MAP) Pulse Ox O2 Delivery O2 Flow Rate FiO2 06/12/18 05:21 97.6 91 20 146/63 (90) 93 Nasal Cannula 1.00 06/11/18 20:40 Nasal Cannula 1.00 06/11/18 17:37 97.6 76 18 145/81 (102) 98 Nasal Cannula 1.00 I & O 06/12/18 07:00 Intake Total 1700 ml Balance 1700 ml Capillary Refill : General Appearance: No Apparent Distress, WD/WN HEENT: Normal ENT Inspection Neck: Full Range of Motion, Normal Inspection Respiratory: Lungs Clear, No Accessory Muscle Use, No Respiratory Distress Cardiovascular: Regular Rate, Rhythm Gastrointestinal: non tender, soft Results Lab Microbiology 06/05/18 Urine Culture - Final, Complete See Report Assessment/Plan Assessment/Plan Assess & Plan/Chief Complaint Myopathy. COPD. Morbid obesity. Bipolar. Anxiety. Depression. Psoriasis. On ventilator. PEG tube removed. Coronary artery disease. GERD. Hypothyroid. Morbid obesity. . 05/21/18. Myopathy. COPD. Morbid obesity. Bipolar. Anxiety. Depression. Psoriasis. Coronary artery disease. Hypothyroid. Morbid obesity. Patient states she's working hard. . 05/22/18. Patient feeling good today. CT of the chest may showpulmonary emboli. COPD. Morbid obesity. Bipolar. Psoriasis. Coronary artery disease Hypothyroid. . 05/23/18. Trach extubated. Patient breathing good. V/Q scan negative for pulmonary embolism. Morbid obesity. Psoriasis. Coronary artery disease. Hypothyroid. Patient feel she is improving. . 05/24/18. Morbid obesity. Psoriasis. Disuse myopathy. Coronary artery disease. Bipolar. Hypothyroid. Current . Disuse myopathy. Psoriasis. Coronary artery disease. Bipolar. Hypothyroid. Nauseousness. To add Phenergan.. . 06/06/17. Disuse myopathy. COPD. Psoriasis. Bipolar. Patient feeling better Increased the dose of Zyprexa and now decreased it . 05/28/18. Disuse myopathy. Psoriasis. Bipolar. Coronary artery disease. Hypothyroid. 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 . 05/29/18. Disuse myopathy psoriasis. Bipolar. CAD. Hypothyroid. Patient feeling good.. . 05/31/18. Disuse myopathy. Psoriasis. Bipolar. CAD. Hypothyroid patient walking good with walker. Patient seen yesterday area . 06/05/18. Disuse myopathy. Psoriasis. Bipolar. UTI. CAD. Patient starting to get around better. Trying to titrate off oxygen. . Patient seen on 2717. Patient out of isolation. 06/07/18. Patient positive. To try to wean off oxygen. Disuse myopathy. Psoriasis. Bipolar. UTI resolved. CAD.. . 06/10/18. Disuse myopathy. Psoriasis. Bipolar. UTI resolved. Patient had a home visit yesterday but fell when trying to get out of the car needed pOLICE to get her off. . 06/12/18. Disuse myopathy. Psoriasis. Bipolar. UTI resolved. Hypertension. COPD. Tobaccoism. Patient moved to apartment in [place] Clinical Quality Measures DVT/VTE Risk/Contraindication: Risk Factor Score Per Nursin RFS Level Per Nursing on Admit: 4+=Very High JOCELYNE MEI DO Jun 12, 2018 08:25
[2018-06-12] MEDS: DOCUSATE SODIUM 100 MG (COLACE) CAP PO SCH ×2 (08:27→19:53)
[2018-06-12] MEDS: TRIAMCINOLONE 0.5% CR (KENALOG) 15 GM TUBE TOP SCH ×3 (08:27→20:51)
[2018-06-12] MEDS: DICLOFENAC 1% GEL 100 GM (VOLTAREN) TUBE TOP SCH ×4 (08:28→20:51)
--- NOTE | 2018-06-12 10:00 | NUR ---
Pastoral Care Visit.
--- NOTE | 2018-06-12 11:06 | Physical Therapy Daily Note ---
PT Daily Note-Current Subjective Pt sitting in [facility] in room upon arrival. Pt reports not wanting to use O2 during O2 during tx. Nurse advised monitoring to check need for O2 at home, pt previously was on none. Pt agrees to PT. Pain Numeric Pain Scale: 10-Worst Possible Pain Location: Right, Left Location Body Site: Shoulder Pain Description: Ache, Tightness Mental Status Patient Orientation: Person, Place, Time, Situation Attachments: Oxygen (1L) Transfers Therapy Code Descriptions/Definitions Functional [place] Measure: 0=Not Assessed/NA 4=Minimal Assistance 1=Total Assistance 5=Supervision or Setup 2=Maximal Assistance 6=Modified [place] 3=Moderate Assistance 7=Complete [place] Therapy Quality Codes: 6 Independent with activity with or without an assistive device 5 Patient requires set up or clean up by helper. Patient completes activity by themselves 4 Supervision or touching assist (CGA). [place] provide cues , steadying assist 3 The helper provides less than half the effort to complete the activity 2 The helper provides more than half the effort to complete the activity 1 Dependent. The helper does all the effort to complete an activity 7 Patient refused to complete or attempt activity 9 The patient did not perform the activity before the current illness or injury 88 Not attempted due to Medical conditions or safety concerns Transfers (B, C, W/C) (FIM): 5 Scootin Rollin Roll Left to Right (QC): 6 Supine to/from Sit: 5 Sit to/from Stand: 5 Sit to Lying (QC): 5 Sit to Stand (QC): 5 Chair/Jlb-pj-Tihhg Xfer(QC): 5 Bed to/from Chair: 5 Car Transfer (QC): 5 Gait Training Does the Patient Walk?: Yes Gait (FIM): 5 Distance (FIM): 3=150 ft Distance: 150' Walk 10 feet (QC): 5 Walk 50 ft with 2 Turns(QC): 5 Walk 150 ft (QC): 5 Walking 10ft/uneven surface-QC: 5 Gait Level of Assist: 5 Gait Persons Needed: 1 Wheelchair Training Does the Pt Use a Wheelchair?: Yes Wheelchair Distance: 3=150 ft Distance: 150' Wheelchair Level of Assist: 4 Wheel 50 ft with 2 turns (QC): 4 Wheel 150 ft (QC): 4 Type of Wheelchair: Manual Stair Training Stairs (FIM): 88 Pt does not have strength to attempt this safely at this time. Balance Picking up an Object (QC): 88 Special Test Comments This task is unsafe to attempt at this time. Exercises NuStep Minutes: 10 NuStep Workload: 4 Treatments Pt completes bed mobility, transfers including car transfer, and ambulation using FWW but also uses WCH for longer mobility and for fatigue. Pt returns to room at end of FIM scoring to rest in WCH in room with all needs met. Assessment Current Status: Good Progress Pt has gained strength and activity tolerance while in ARU. Pt still lacks enough activity tolerance to get around without WCH or O2 not maintaining above 90% w/o it). PT Short Term Goals Short Term Goals Time Frame: May 24, 2018 Transfers (B,C,W/C) (FIM): 3 (met) Gait (FIM): 1 (met) Gait Distance Comment: 5' Gait Level of Assist: 4 Gait Assistive Device: Parallel Bars Wheelchair (FIM): 1 Wheelchair Distance: 150' PT Car Packer Goals [facility] Goals PT [facility] P[facility] Goals Time Frame: Jun 07, 2018 Transfers (B,C,W/C) (FIM): 4 Sit to Lying (QC): 4 Lying-Sitting on Side/Bed(QC): 4 Sit to Stand (QC): 4 Rollin Roll Left to Right (QC): 4 Chair/Hte-fe-Wbysf Xfer(QC): 3 Car Transfer (QC): 3 Gait (FIM): 1 Distance: 20' Walk 10 feet (QC): 4 Gait Level of Assist: 4 Gait Assistive Device: FWW Wheelchair (FIM): 2 Distance: 50' Wheelchair Level of Assist: 5 Wheel 50 feet with 2 turns (QC: 4 PT Plan Problem List Problem List: Activity Tolerance, Functional Strength, Safety, Balance, Gait Treatment/Plan Treatment Plan: Continue Plan of Care Treatment Plan: Bed Mobility, Concurrent Therapy, Education, Functional Activity Fede, Functional Strength, Group Therapy, Gait, Safety, Therapeutic Exercise, Transfers Treatment Duration: Jun 07, 2018 Frequency: At least 5 of 7 days/Wk (IRF) Estimated Hrs Per Day: 1.5 hours per day Patient and/or Family Agrees t: Yes Safety Risks/Education Patient Education: Gait Training, Transfer Techniques, Correct Positioning, Safety Issues Teaching Recipient: Patient Teaching Methods: Discussion Response to Teaching: Verbalize Understanding Time/GCodes Time In: 900 Time Out: 1000 Total Billed Treatment Time: 60 Total Billed Treatment 1, GT (15m), FA x2 (30m) & EX (15m) G Codes Necessary: VÍCTOR Joel SOFTWARE ENGINEERING ANALYST Jun 12, 2018 11:06
--- NOTE | 2018-06-12 11:10 | PM&R Progress Note ---
Subjective This was a face to face visit with the patient. Date Seen by Provider: Jun 12, 2018 Time Seen by Provider: 10:45 Subjective/Events-last exam Patient was seen in room after shower Denies any pain Anxiety is a major issue Likely will need skilled therapy for a couple weeks before moving into her apartment that is being arranged by her daughter Oxygen evaluation set for 3 L continuous orders placed Review of Systems General: Fatigue Neurological: Other (Anxiety) Objective Physician Exam Last Set of Vital Signs Vital Signs Date Time Temp Pulse Resp B/P (MAP) Pulse Ox O2 Delivery O2 Flow Rate FiO2 06/12/18 08:33 Nasal Cannula 1.00 06/12/18 05:21 97.6 91 20 146/63 (90) 93 Capillary Refill : I&O Intake and Output 06/12/18 00:00 Intake Total 1925 ml Balance 1925 ml Intake Oral 1925 ml # Voids 9 # Bowel Movements 1 General: Alert, Oriented X3, Cooperative, No Acute Distress HEENT: Atraumatic, PERRLA, EOMI, Mucous Memb Moist/[place] Neck: Other (healed trach site) Lungs: Clear to Auscultation Heart: Regular Rate Abdomen: Normal Bowel Sounds, Soft, No Tenderness, Other (healed PEG tube site) Extremities: Other (Trace ankle edema) Neuro: Other (Proximal weakness Both lower limbs Strength 3+/5 Both upper limbs ) Psych/Mental Status: Other (anxiety) Results Lab Data Microbiology 06/05/18 Urine Culture - Final, Complete See Report Current Funtional Status Participating in therapy Reviewed occupational therapy and physical therapy notes Improving Long recovery expected Progress Toward Rehab Goals Likely discharge to skilled for 2 weeks prior to setting up [facility] per daughter Assessment/Plan Assessment and Plan (1) Myopathy Status: Acute (2) Nausea Status: Resolved (3) Chronic mental illness Status: Chronic (4) Personal history of supraventricular tachycardia Status: Chronic (5) Smoker Status: Chronic (6) Hypertension Qualifiers: Qualified Codes: I10 - Essential (primary) hypertension Status: Chronic (7) Bipolar disorder Qualifiers: Qualified Codes: F31.9 - Bipolar disorder, unspecified Status: Chronic (8) COPD (chronic obstructive pulmonary disease) Qualifiers: Qualified Codes: J44.9 - Chronic obstructive pulmonary disease, unspecified Status: Chronic Co-Morbidities that are continuing to impact the rehab process: (include details ) SAMANTHA COLLIER DO Jun 12, 2018 11:09
--- NOTE | 2018-06-12 11:50 | NUR ---
SPO2 DROPPED TO 87% ON ROOM AIR @ REST. REPLACED O2 @ 2 LPM. SPO2 INCREASED TO 92%. Addendum: 06/12/18 at 1158 by XAVIER AGUILAR RT Amended: Links added.
--- NOTE | 2018-06-12 12:08 | Occ Therapy Rehab Re-Cert ---
OT Re-Certification Form Plan of Care: ADL Retraining, Caregiver Training, Functional Mobility, Group Exercise/Act as Ind (education, exercise, activity tolerance, funct mobility, funtional actiities), UE Funct Exercise/Act, UE Neuromus Re-Ed/Coord, W/C Management Training, OTHER (energy conservation education) Treatment Duration: Continue treatment for this pt. until 18, or planned discharge. Frequency: At least 5 of 7 days/Wk (IRF) Estimated Hrs Per Day: 1.5 hours per day Agreement: Yes Rehab Potential: Fair OT Short Term Goals Short Term Goals Time Frame: May 24, 2018 Eating(FIM): 5 Grooming(FIM): 5 Bathing(FIM): 3 Upper Body Dressing(FIM): 5 Lower Body Dressing(FIM): 2 Toileting(FIM): 1 (one person) Transfers (B,C,W/C) (FIM): 3 (met) Toilet/Commode Transfer(FIM): 1 (one person) Additional Short Term Goals: 1-Demonstrate ADL Tasks, 2-Verbalize Understanding , 3-ImproveStrength/Fede 1=Demonstrate adherence to instructed precautions during ADL tasks. 2=Patient will verbalize/demonstrate understanding of assistive devices/ modifications for ADL. 3=Patient will improve strength/tolerance for activity to enable patient to perform ADL's. OT Balance Wheel Screw Hole Driller Goals Balance Wheel Screw Hole Driller Goals Time Frame: Jun 07, 2018 Eating (FIM): 7 Grooming(FIM): 6 Bathing(FIM): 5 Upper Body Dressing(FIM): 6 Lower Body Dressing(FIM): 6 Toileting(FIM): 6 Toilet/Commode Transfer(FIM): 6 Shower Transfer(FIM): 6 Continue towards progress of all stated goals. Additional Goals: 1-Demonstrate ADL Tasks, 2-Verbalize Understanding, 3- ImproveStrength/Fede 1=Demonstrate adherence to instructed precautions during ADL tasks. 2=Patient will verbalize/demonstrate understanding of assistive devices/ modifications for ADL. 3=Patient will improve strength/tolerance for activity to enable patient to perform ADL's. LUIS VALLE OT Jun 12, 2018 12:08
--- NOTE | 2018-06-12 13:39 | NUR ---
provided prayer and Communion.
--- NOTE | 2018-06-12 14:37 | Occupational Ther Daily Note ---
OT Current Status-Daily Note Subjective No pain reported. Appearance Pt. up in chair. Requests to shower. Mental Status/Objective Patient Orientation: Person, Place Therapy Code Descriptions/Definitions Functional [place] Measure: 0=Not Assessed/NA 4=Minimal Assistance 1=Total Assistance 5=Supervision or Setup 2=Maximal Assistance 6=Modified [place] 3=Moderate Assistance 7=Complete [place] Attachments: Oxygen ADL-Treatment Therapy Code Descriptions/Definitions Functional [place] Measure: 0=Not Assessed/NA 4=Minimal Assistance 1=Total Assistance 5=Supervision or Setup 2=Maximal Assistance 6=Modified [place] 3=Moderate Assistance 7=Complete [place] Therapy Quality Codes: 6 Independent with activity with or without an assistive device 5 Patient requires set up or clean up by helper. Patient completes activity by themselves 4 Supervision or touching assist (CGA). [place] provide cues , steadying assist 3 The helper provides less than half the effort to complete the activity 2 The helper provides more than half the effort to complete the activity 1 Dependent. The helper does all the effort to complete an activity 7 Patient refused to complete or attempt activity 9 The patient did not perform the activity before the current illness or injury 88 Not attempted due to Medical conditions or safety concerns Grooming (FIM): 3 (Pt. is able to brush her teeth while in wheelchair. Unable to reach her hair without assist.) Oral Hygiene (QC): 5 Bathing (FIM): 4 (Pt. requires assistance in stance to wash rear tabatha area. Pt. will attempt to do this with cues, but is unable to reach rear tabatha area. Pt. is able to reach all other parts while seated.) Shower/Bathe Self (QC): 4 Upper Body (FIM): 3 (Pt. is able to thread bilateral UE into shirt. Unable to rod puller head or over torso.) Upper Body Dressing (QC): 3 Lower Body Dressing (FIM): 3 (Pt. attempts to thread feet into brief and pants with dressing stick. Requires assist for this. Requires assist in stance to don over hips. Pt. is able to don socks with sock aide with set up. Mod assist needed to don shoes with elastic laces and shoe horn.) Lower Body Dressing (QC): 3 On/Off Footwear (QC): 3 Transfers (B, C, W/C) (FIM): 5 (SBA sit-stand and transfers.) Shower Transfer(FIM): 5 Other Treatment Pt. requires encouragement to do for self. Education OT Patient Education: Correct positioning, Modified ADL techniques, Progress toward Goal/Update tx plan, Purpose of tx/functional activities, Reviewed precautions, Rehab process, Transfer techniques, Use of adapted equipment Teaching Recipient: Patient Teaching Methods: Demonstration, Discussion Response to Teaching: Verbalize Understanding, Return Demonstration OT Short Term Goals Short Term Goals Time Frame: May 24, 2018 Eating(FIM): 5 Grooming(FIM): 5 Bathing(FIM): 3 Upper Body Dressing(FIM): 5 Lower Body Dressing(FIM): 2 Toileting(FIM): 1 (one person) Transfers (B,C,W/C) (FIM): 3 (met) Toilet/Commode Transfer(FIM): 1 (one person) Additional Short Term Goals: 1-Demonstrate ADL Tasks, 2-Verbalize Understanding , 3-ImproveStrength/Fede 1=Demonstrate adherence to instructed precautions during ADL tasks. 2=Patient will verbalize/demonstrate understanding of assistive devices/ modifications for ADL. 3=Patient will improve strength/tolerance for activity to enable patient to perform ADL's. OT Fci Goals Fci Goals Time Frame: Jun 07, 2018 Eating (FIM): 7 Eating (QC): 6 Groomin Oral Hygiene (QC): 6 Bathing(FIM): 5 Shower/Bathe Self (QC): 5 Upper Body Dressing(FIM): 6 Upper Body Dressing (QC): 6 Lower Body Dressing(FIM): 6 Lower Body Dressing (QC): 6 On/Off Footwear (QC): 6 Toileting(FIM): 6 Toileting Hygiene (QC): 6 Toilet/Commode Transfer(FIM): 6 Toilet/Commode Transfer (QC): 6 Shower Transfer(FIM): 6 Continue towards progress of all stated goals. Additional Goals: 1-Demonstrate ADL Tasks, 2-Verbalize Understanding, 3- ImproveStrength/Fede 1=Demonstrate adherence to instructed precautions during ADL tasks. 2=Patient will verbalize/demonstrate understanding of assistive devices/ modifications for ADL. 3=Patient will improve strength/tolerance for activity to enable patient to perform ADL's. OT Education/Plan Problem List/Assessment Assessment: Decreased Activ Tolerance, Impaired I ADL's, Impaired Self-Care Skills Discharge Recommendations Plan/Recommendations: Continue POC Therapy D/C Recommendations: Home w/ Family Support, Occupational Therapy Home Care, Scheduled Assistance Treatment Plan/Plan of Care Treatment,Training & Education: Yes Patient would benefit from OT for education, treatment and training to promote independence in ADL's, mobility, safety and/or upper extremity function for ADL' s. Plan of Care: ADL Retraining, Caregiver Training, Functional Mobility, Group Exercise/Act as Ind (education, exercise, activity tolerance, funct mobility, funtional actiities), UE Funct Exercise/Act, UE Neuromus Re-Ed/Coord, W/C Management Training, OTHER (energy conservation education) Treatment Duration: Jun 07, 2018 Frequency: At least 5 of 7 days/Wk (IRF) Estimated Hrs Per Day: 1.5 hours per day Agreement: Yes Rehab Potential: Fair Time/GCodes Start Time: 10:00 Stop Time: 11:15 Total Time Billed (hr/min): 75 Billed Treatment Time 1, ADL x 60minutes, Ex x 15minutes LUIS VALLE OT Jun 12, 2018 14:37
--- NOTE | 2018-06-12 15:46 | Speech Therapy Daily Note ---
Speech Daily Progress Note Subjective Date Seen by Provider: Jun 12, 2018 Time Seen by Provider: 00:30 Patient was depressed due to having to go to a SNF until her new apartment is ready in a couple weeks. Objective Patient completed problem solving tasks with 90% accuracy given minimal cues. Communication Comprehension: 6 Expression: 7 Social Cognition Social Interaction: 6 Problem Solvin Memory: 6 Speech Short Term Goals Short Term Goals Short Term Goals 1) Patient will recall information for safety awareness at 90% or greater with minimal cues. 2) Patient will recall new information from memory tasks at 90% accuracy or greater with minimal cues. 3) Patient will follow simple directions within her immediate living environment at 90% or greater with minimal cues. Speech Care Home Goals Display Manager Goals Patient will improve safety awareness and independence with 90% accuracy. Speech-Plan Patient/Family Goals Patient/Family Goals: Patient plans to move in to a SNF for a couple of weeks until her new apartment is ready. Treatment Plan Speech Therapy Treatment Plan: Continue Plan of Care Patient is not happy about moving in to a SNF. Treatment Duration: Jun 14, 2018 Frequency: 5 times per week Estimated Hrs Per Day: .5 hour per day Rehab Potential: Fair Barriers to Learning: Patient has decreased self confidence. Pt/Family Agrees to Plan: Yes Time Speech Therapy Time In: 15:05 Speech Therapy Time Out: 15:35 Total Billed Time: 30 Billed Treatment Time FLORENCE Lee [facility] Jun 12, 2018 15:46
--- NOTE | 2018-06-12 15:53 | Physical Therapy Daily Note ---
PT Daily Note-Current Subjective Pt sitting up in [facility] upon arrival. Pt is reluctant to participate in PT due to being notified by SW that pt will discharge tomorrow to SNF. Pt to stay at SNF for two weeks then discharge for new living arrangement at [facility]. Pt wanting to stay longer at [facility] to avoid SNF. Mental Status Patient Orientation: Person, Place, Time, Situation Attachments: Oxygen Transfers Therapy Code Descriptions/Definitions Functional [place] Measure: 0=Not Assessed/NA 4=Minimal Assistance 1=Total Assistance 5=Supervision or Setup 2=Maximal Assistance 6=Modified [place] 3=Moderate Assistance 7=Complete [place] Therapy Quality Codes: 6 Independent with activity with or without an assistive device 5 Patient requires set up or clean up by helper. Patient completes activity by themselves 4 Supervision or touching assist (CGA). [place] provide cues , steadying assist 3 The helper provides less than half the effort to complete the activity 2 The helper provides more than half the effort to complete the activity 1 Dependent. The helper does all the effort to complete an activity 7 Patient refused to complete or attempt activity 9 The patient did not perform the activity before the current illness or injury 88 Not attempted due to Medical conditions or safety concerns Weight Bearing Right Lower Extremity: Right Treatments Pt wants to discuss discharge for tomorrow. SW arrives during tx to give pt paperwork as well as discuss questions. PHARMACY TEACHER tried to discuss AD and O2 needs as well as Exercises that pt could continue. Pt was very defensive and would only discuss AD & O2 to have everything pt would need tomorrow. Pt toiletted and returned to [facility]. Pt resting in [facility] at end of tx with all needs met. Assessment Current Status: Fair Progress Pt was upset at discharge and PHARMACY TEACHER & SW aware of this fact. PT Short Term Goals Short Term Goals Time Frame: May 24, 2018 Transfers (B,C,W/C) (FIM): 3 (met) Gait (FIM): 1 (met) Gait Distance Comment: 5' Gait Level of Assist: 4 Gait Assistive Device: Parallel Bars Wheelchair (FIM): 1 Wheelchair Distance: 150' PT Halfway Goals Halfway Goals PT Halfway Goals Time Frame: Jun 07, 2018 Transfers (B,C,W/C) (FIM): 4 Sit to Lying (QC): 4 Lying-Sitting on Side/Bed(QC): 4 Sit to Stand (QC): 4 Rollin Roll Left to Right (QC): 4 Chair/[id number]-Qqxyo Xfer(QC): 3 Car Transfer (QC): 3 Gait (FIM): 1 Distance: 20' Walk 10 feet (QC): 4 Gait Level of Assist: 4 Gait Assistive Device: FWW Wheelchair (FIM): 2 Distance: 50' Wheelchair Level of Assist: 5 Wheel 50 feet with 2 turns (QC: 4 PT Plan Problem List Problem List: Activity Tolerance, Functional Strength, Safety, Gait Treatment/Plan Treatment Plan: Continue Plan of Care Treatment Plan: Bed Mobility, Concurrent Therapy, Education, Functional Activity Fede, Functional Strength, Group Therapy, Gait, Safety, Therapeutic Exercise, Transfers Treatment Duration: Jun 07, 2018 Frequency: At least 5 of 7 days/Wk (IRF) Estimated Hrs Per Day: 1.5 hours per day Patient and/or Family Agrees t: Yes Safety Risks/Education Patient Education: Gait Training, Transfer Techniques, Correct Positioning, Safety Issues Teaching Recipient: Patient Teaching Methods: Discussion Response to Teaching: Verbalize Understanding Time/GCodes Time In: 1430 Time Out: 1500 Total Billed Treatment Time: 30 Total Billed Treatment 1, FA x2 (30m) G Codes Necessary: VÍCTOR Joel PHARMACY TEACHER Jun 12, 2018 15:53
--- NOTE | 2018-06-12 16:12 | Speech Therapy Rehab Re-Cert ---
Speech Re-Certification Form Speech Therapy Treatment Plan: Continue Plan of Care # of days/week 5 days per week Visits Per Week: 5 visits per week Minutes/Day (M-F): 30 minutes per day Minutes/Day (Sat/Lara): 0 Rehab Potential: Good Barriers to Learning: Patient has low self confidence Patient and/or Family Agrees t: Yes Speech Short Term Goals Short Term Goals Short Term Goals 1) Patient will recall information for safety awareness at 90% or greater with minimal cues. 2) Patient will recall new information from memory tasks at 90% accuracy or greater with minimal cues. 3) Patient will follow simple directions within her immediate living environment at 90% or greater with minimal cues. No updates on goals at this time. Speech Tumbler Machine Operator Helper Goals Longterm Goals Patient will improve safety awareness and independence with 90% accuracy. MAGUE TAVAREZ Jun 12, 2018 16:12
--- NOTE | 2018-06-12 16:25 | Physical Therapy Rehab Re-Cert ---
PT Re-Certification Form Physical Therapy Treatment Plan: Continue Plan of Care Bed Mobility, Concurrent Therapy, Education, Functional Activity Fede, Functional Strength, Group Therapy, Gait, Safety, Therapeutic Exercise, Transfers Treatment Duration: 06/21/2017 Frequency: At least 5 of 7 days/Wk (IRF) Estimated Hrs Per Day: 1.5 hours per day Patient and/or Family Agrees t: Yes Rehab Potential: Good Continue POC with updated goals goals. Pt making functional progress but has not fully met LTG's at this time. PT Short Term Goals Short Term Goals Time Frame: May 24, 2018 Transfers (B,C,W/C) (FIM): 3 (met) Gait (FIM): 1 (met) Gait Distance Comment: 5' Gait Level of Assist: 4 Gait Assistive Device: Parallel Bars Wheelchair (FIM): 1 Wheelchair Distance: 150' PT Operator Receptionist Goals Shelter Goals PT Operator Receptionist Goals Time Frame: Jun 21, 2018 Transfers (B,C,W/C) (FIM): 6 Gait (FIM): 6 Distance: 20' Gait Level of Assist: 6 Gait Assistive Device: FWW Wheelchair (FIM): 2 Distance: 50' Wheelchair Level of Assist: 5 PILLO DAWSON PT Jun 12, 2018 16:25
[2018-06-12 17:42] VITALS: BP 163/98
--- NOTE | 2018-06-12 19:35 | NUR ---
DATA SECURITY CONSULTANT met with patient earlier today regarding home visit from Sunday and patient's thoughts on home discharge plans. Patient reports that she does not feel safe to return home due to physical barriers within the home, but that her daughter has submitted her application for [facility] handicap accessible apartments in [place]. DATA SECURITY CONSULTANT discussed options of [place] [facility] for short-term therapies as patient had mentioned this option to therapy staff. Patient then verbalized disagreement with [place] [facility]. Team conference was held today , Team discussed options of behavioral health inpatient placement due to primary barrier for progression as resistance due to heightened anxiety; however, was not agreeable to this option. Following discussion with patient's daughter patient was then agreeable to [place]-term [place] [facility] placement with request for referral to [facility] [place]. DATA SECURITY CONSULTANT received feedback from Aliyah at [facility] with acceptance of patient for placement tomorrow. Patient is scheduled to have onsite assessment with apartment manager of financial of [place] tomorrow at [facility]. DATA SECURITY CONSULTANT requested time be rescheduled dependent upon wheelchair van availability from [facility]. DATA SECURITY CONSULTANT also reviewed discharge plans with patient's daughter/POA, daughter is agreeable to plan. vestibule complete tear assessment tomorrow, and facilitate necessary mode of transportation, if wheelchair van is not available. DATA SECURITY CONSULTANT informed Dr. Pringle acceptance to facility.
[2018-06-12] MEDS: OLANZapine 5 MG (ZyPREXA) TAB PO SCH (20:49)
[2018-06-12] MEDS: DONEPEZIL 10 MG (ARICEPT) TAB PO SCH (20:50)
[2018-06-12] MEDS: ATORVASTATIN 40 MG (LIPITOR) TABLET PO SCH (20:50)
[2018-06-12] MEDS ORDERED: FLUT12AE4 IH (21:21)
[2018-06-12] MEDS ORDERED: ENOX40DI8 SC (21:21)
[2018-06-12] MEDS ORDERED: HYDR-3820 PO (21:21)
[2018-06-12] MEDS ORDERED: Multivitamins/Minerals Therap PO (21:21)
[2018-06-12] MEDS ORDERED: ONDA8TAB13 PO (21:21)
[2018-06-12] MEDS ORDERED: PANT40TA3 PO (21:21)
[2018-06-12] MEDS ORDERED: SUCR1TAB PO (21:21)
[2018-06-12] MEDS ORDERED: CYAN10006 PO (21:21)
--- NOTE | 2018-06-12 21:24 | Discharge Inst-Skilled Nursing ---
Discharge Inst-Skilled NF Patient Instructions Patient Problems: Critical illness myopathy Depression Anxiety Chronic pain COPD Goal: Return to independent living Consult/Follow Up/Orders Follow Up Appt.: Dr Ward in 1 week [facility] I certify that SNF services are required to be given on an inpatient basis because of the above named patient's need for long-term care on a continuing basis for the conditions(s) for which he/she was receiving inpatient hospital services prior to his/her transfer to the SNF. Senior Care Facility Order: Nursing Services, Roof Fitter-Evaluate & Treat, Physical Therapy-Evaluate & Treat, Speech Language-Evaluate & Treat Discharge Diet: No Restrictions Daily Activity as Tolerated: Yes New & Resume Previous Orders Rosalind Pringle Jun 12, 2018 21:22 ROSALIND PRINGLE DO Jun 12, 2018 21:23
[2018-06-13] MEDS: PROMETHAZINE 25 MG (PHENERGAN) TAB PO SCH ×2 (00:08→09:06)
[2018-06-13 05:04] VITALS: BP 127/76
[2018-06-13] MEDS: MULTIVIT W/MINERALS TAB (THERAGRAN M) PO SCH (06:00)
[2018-06-13] MEDS: LACTOBACILLUS ACIDOPHILUS (PROBIOTIC) CAPSULE PO SCH (06:01)
[2018-06-13] MEDS: CYANOCOBALAMIN 1,000 MCG (VITAMIN B-12) TABLET PO SCH (06:01)
[2018-06-13] MEDS: PANTOPRAZOLE 40 MG (PROTONIX) TAB PO SCH (06:01)
--- NOTE | 2018-06-13 06:42 | Progress Note (SOAP) ---
Subjective Time Seen by a Provider: 06:40 Subjective/Events-last exam Patient resting comfortably this morning. Patient be discharged today to [facility] area COPD. Disuse myopathy. Bipolar Objective Exam Vital Signs Date Time Temp Pulse Resp B/P (MAP) Pulse Ox O2 Delivery O2 Flow Rate FiO2 06/13/18 05:04 97.6 94 20 127/76 (93) 92 Nasal Cannula 2.00 06/12/18 20:10 Nasal Cannula 1.00 06/12/18 19:51 96 Nasal Cannula 2.00 06/12/18 17:42 97.6 86 20 163/98 (119) 99 Nasal Cannula 2.50 06/12/18 11:50 95 2.00 06/12/18 11:49 95 Nasal Cannula 2.00 06/12/18 08:33 Nasal Cannula 1.00 I & O 06/13/18 07:00 Intake Total 1575 ml Balance 1575 ml Capillary Refill : General Appearance: No Apparent Distress, WD/WN HEENT: Normal ENT Inspection Respiratory: No Accessory Muscle Use, No Respiratory Distress Results Lab Microbiology 06/05/18 Urine Culture - Final, Complete See Report Assessment/Plan Assessment/Plan Assess & Plan/Chief Complaint Myopathy. COPD. Morbid obesity. Bipolar. Anxiety. Depression. Psoriasis. On ventilator. PEG tube removed. Coronary artery disease. GERD. Hypothyroid. Morbid obesity. . 05/21/18. Myopathy. COPD. Morbid obesity. Bipolar. Anxiety. Depression. Psoriasis. Coronary artery disease. Hypothyroid. Morbid obesity. Patient states she's working hard. . 05/22/18. Patient feeling good today. CT of the chest may showpulmonary emboli. COPD. Morbid obesity. Bipolar. Psoriasis. Coronary artery disease Hypothyroid. . 05/23/18. Trach extubated. Patient breathing good. V/Q scan negative for pulmonary embolism. Morbid obesity. Psoriasis. Coronary artery disease. Hypothyroid. Patient feel she is improving. . 05/24/18. Morbid obesity. Psoriasis. Disuse myopathy. Coronary artery disease. Bipolar. Hypothyroid. Current . Disuse myopathy. Psoriasis. Coronary artery disease. Bipolar. Hypothyroid. Nauseousness. To add Phenergan.. . 06/06/17. Disuse myopathy. COPD. Psoriasis. Bipolar. Patient feeling better Increased the dose of Zyprexa and now decreased it . 05/28/18. Disuse myopathy. Psoriasis. Bipolar. Coronary artery disease. Hypothyroid. 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 . 05/29/18. Disuse myopathy psoriasis. Bipolar. CAD. Hypothyroid. Patient feeling good.. . 05/31/18. Disuse myopathy. Psoriasis. Bipolar. CAD. Hypothyroid patient walking good with walker. Patient seen yesterday area . 06/05/18. Disuse myopathy. Psoriasis. Bipolar. UTI. CAD. Patient starting to get around better. Trying to titrate off oxygen. . Patient seen on 2717. Patient out of isolation. 06/07/18. Patient positive. To try to wean off oxygen. Disuse myopathy. Psoriasis. Bipolar. UTI resolved. CAD.. . 06/10/18. Disuse myopathy. Psoriasis. Bipolar. UTI resolved. Patient had a home visit yesterday but fell when trying to get out of the car needed pOLICE to get her off. . 06/12/18. Disuse myopathy. Psoriasis. Bipolar. UTI resolved. Hypertension. COPD. Tobaccoism. Patient moved to apartment in [place] . . 06/13/18. Disuse myopathy. Psoriasis. Bipolar. UTI. Hypertension. COPD. Tobaccoism. Patient is discharged today to [facility] Clinical Quality Measures DVT/VTE Risk/Contraindication: Risk Factor Score Per Nursin RFS Level Per Nursing on Admit: 4+=Very High JOCELYNE MEI DO Jun 13, 2018 06:42
[2018-06-13] MEDS: ADVAIR HFA 115/21 MCG INHALER 8 GM IH SCH (08:09)
[2018-06-13] MEDS: meTOprolol TARTRATE 50 MG (LOPRESSOR) TAB PO SCH (09:05)
[2018-06-13] MEDS: SUCRALFATE 1 GM (CARAFATE) TAB PO SCH (09:06)
[2018-06-13] MEDS: LORATADINE (CLARITIN) 10 MG TAB PO SCH (09:06)
[2018-06-13] MEDS: ENOXAPARIN 40 MG/0.4 ML (LOVENOX) SYR SC SCH (09:06)
[2018-06-13] MEDS: MELOXICAM 7.5 MG (MOBIC) TABLET PO SCH (09:06)
[2018-06-13] MEDS: DOCUSATE SODIUM 100 MG (COLACE) CAP PO SCH (09:06)
--- NOTE | 2018-06-13 09:06 | NUR ---
EQUESTRIAN TRAINER received contact from application support manager of [place] regarding ability to visit patient today at 1130 as patient will discharge [facility] this afternoon. EQUESTRIAN TRAINER was able to confirm patient's daughters ability to provide transport to facility. EQUESTRIAN TRAINER met with patient to complete [facility] assessment. Information was faxed to [facility] as well as to [facility]. Patient and daughter expressed no further needs. Please see discharge summary for further information.
[2018-06-13] MEDS: ARTIFICAL TEARS 0.4 ML UNIT DOSE (REFRESH PLUS) OU SCH (09:13)
[2018-06-13] MEDS: TRIAMCINOLONE 0.5% CR (KENALOG) 15 GM TUBE TOP SCH (09:13)
[2018-06-13] MEDS: DICLOFENAC 1% GEL 100 GM (VOLTAREN) TUBE TOP SCH (09:13)
--- NOTE | 2018-06-13 10:10 | Therapy Team Discharge Summary ---
Therapy Discharge Summary Discharge Recommendations Date of Discharge Therapy D/C Recommendations: Home w/ Family Support, Occupational Therapy Home Care, Scheduled Assistance Physical Therapy Patient came to rehab with disuse myopathy. Upon evaluation patient performed bed mobility with min assist, supine <-> sit with min assist, art for transfers, sit <-> stand with max assist of 2, no walking, dependent for wheelchair mobility. Patient has been performing bed mobility and transfer training, balance and endurance training, functional strengthening, stair training, gait training, and education. Patient has made fair progress and has met all of her residential goals except level of assistance on wheelchair mobility. Now, patient performs bed mobility with mod I, transfers with SBA, car transfer SBA, ambulates 150' with a rolling walker with SBA and can propel a manual wheelchair 150' with min assist, no stairs at this time. Patient is being discharged from this facility and will be discharged from PT at this time. Occupational Therapy Decreased Activ Tolerance, Impaired I ADL's, Impaired Self-Care Skills PT Sales Warehouse Driver Goals Sales Warehouse Driver Goals PT Sales Warehouse Driver Goals Time Frame: Jun 21, 2018 Transfers (B,C,W/C) (FIM): 6 Roll Left to Right (QC): 4 Sit to Lying (QC): 4 Lying-Sitting on Side/Bed(QC): 4 Sit to Stand (QC): 4 Chair/[id number]-Byqxq Xfer(QC): 3 Car Transfer (QC): 3 Gait (FIM): 6 Distance: 20' Walk 10 feet (QC): 4 Gait Level of Assist: 6 Gait Assistive Device: FWW Wheelchair (FIM): 2 Distance: 50' Wheelchair Level of Assist: 5 Wheel 50 feet with 2 turns (QC: 4 OT Detention Goals Detention Goals Time Frame: Jun 07, 2018 Eating (FIM): 7 Eating (QC): 6 Oral Hygiene (QC): 6 Grooming(FIM): 6 Bathing(FIM): 5 Shower/Bathe Self (QC): 5 Upper Body Dressing(FIM): 6 Upper Body Dressing (QC): 6 Lower Body Dressing(FIM): 6 Lower Body Dressing (QC): 6 On/Off Footwear (QC): 6 Toileting(FIM): 6 Toileting Hygiene (QC): 6 Toilet/Commode Transfer(FIM): 6 Toilet/Commode Transfer (QC): 6 Shower Transfer(FIM): 6 Continue towards progress of all stated goals. Additional Goals: 1-Demonstrate ADL Tasks, 2-Verbalize Understanding, 3- ImproveStrength/Fede 1=Demonstrate adherence to instructed precautions during ADL tasks. 2=Patient will verbalize/demonstrate understanding of assistive devices/ modifications for ADL. 3=Patient will improve strength/tolerance for activity to enable patient to perform ADL's. Speech Sales Warehouse Driver Goals Detention Goals Patient will improve safety awareness and independence with 90% accuracy. CLAU SALAZAR PT Jun 13, 2018 10:10
[2018-06-13] MEDS: HYDROcodone/APAP 10 MG/325 MG (LORTAB) TAB PO PRN (10:46)
--- NOTE | 2018-06-13 11:24 | Therapy Team Discharge Summary ---
Therapy Discharge Summary Discharge Recommendations Date of Discharge Therapy D/C Recommendations: Home w/ Family Support, Occupational Therapy Home Care, Scheduled Assistance Occupational Therapy Decreased Activ Tolerance, Impaired I ADL's, Impaired Self-Care Skills Speech-Language Pathology Patient was admitted to ARU with decreased function post hospitalization which had resulted in a coma. Patient has been weak, however she has made progress with skilled therapy. Patient was initially decreased in memory and problem solving skills. Since the time of onset she has made excellent progress in these areas. She is being discharged to SNF in [place] today. Patient will be discharged from skilled this date. PT Slate Cutter Operator Goals Slate Cutter Operator Goals PT Slate Cutter Operator Goals Time Frame: Jun 21, 2018 Transfers (B,C,W/C) (FIM): 6 Roll Left to Right (QC): 4 Sit to Lying (QC): 4 Lying-Sitting on Side/Bed(QC): 4 Sit to Stand (QC): 4 Chair/Qqj-nj-Pnrud Xfer(QC): 3 Car Transfer (QC): 3 Gait (FIM): 6 Distance: 20' Walk 10 feet (QC): 4 Gait Level of Assist: 6 Gait Assistive Device: FWW Wheelchair (FIM): 2 Distance: 50' Wheelchair Level of Assist: 5 Wheel 50 feet with 2 turns (QC: 4 OT Custodial Goals Slate Cutter Operator Goals Time Frame: Jun 07, 2018 Eating (FIM): 7 Eating (QC): 6 Oral Hygiene (QC): 6 Grooming(FIM): 6 Bathing(FIM): 5 Shower/Bathe Self (QC): 5 Upper Body Dressing(FIM): 6 Upper Body Dressing (QC): 6 Lower Body Dressing(FIM): 6 Lower Body Dressing (QC): 6 On/Off Footwear (QC): 6 Toileting(FIM): 6 Toileting Hygiene (QC): 6 Toilet/Commode Transfer(FIM): 6 Toilet/Commode Transfer (QC): 6 Shower Transfer(FIM): 6 Continue towards progress of all stated goals. Additional Goals: 1-Demonstrate ADL Tasks, 2-Verbalize Understanding, 3- ImproveStrength/Fede 1=Demonstrate adherence to instructed precautions during ADL tasks. 2=Patient will verbalize/demonstrate understanding of assistive devices/ modifications for ADL. 3=Patient will improve strength/tolerance for activity to enable patient to perform ADL's. Speech Custodial Goals Custodial Goals Patient will improve safety awareness and independence with 90% accuracy. Met MAGUE TAVAREZ Jun 13, 2018 11:24
--- NOTE | 2018-06-13 12:10 | Therapy Team Discharge Summary ---
Therapy Discharge Summary Discharge Recommendations Date of Discharge 06-13-18 Therapy D/C Recommendations: 24 hr Supervision, [facility] ([facility]) Occupational Therapy Pt. has been seen by occupational therapy to increase overall strength and independence. Pt. has made significant progress overall, but continues to need assistance with daily tasks. Please see goals met. Pt. requires min/mod assist with most ADLs due to weakness. Pt. is transferring to senior living facility due to need for continued care, and pt's concern for being at home. Decreased Activ Tolerance, Decreased UE Strength, Dependent Transfers, Impaired I ADL's, Impaired Self-Care Skills, Restricted Funct UE ROM PT Actuary Manager Goals Care Home Goals PT Care Home Goals Time Frame: Jun 21, 2018 Transfers (B,C,W/C) (FIM): 6 Roll Left to Right (QC): 4 Sit to Lying (QC): 4 Lying-Sitting on Side/Bed(QC): 4 Sit to Stand (QC): 4 Chair/Nok-to-Umpos Xfer(QC): 3 Car Transfer (QC): 3 Gait (FIM): 6 Distance: 20' Walk 10 feet (QC): 4 Gait Level of Assist: 6 Gait Assistive Device: FWW Wheelchair (FIM): 2 Distance: 50' Wheelchair Level of Assist: 5 Wheel 50 feet with 2 turns (QC: 4 OT Actuary Manager Goals Care Home Goals Time Frame: Jun 07, 2018 Eating (FIM): 7 (met) Eating (QC): 6 (met) Oral Hygiene (QC): 6 (not met) Grooming(FIM): 6 (not met) Bathing(FIM): 5 (not met) Shower/Bathe Self (QC): 5 (not met) Upper Body Dressing(FIM): 6 (not met) Upper Body Dressing (QC): 6 (not met) Lower Body Dressing(FIM): 6 (not met) Lower Body Dressing (QC): 6 (not met) On/Off Footwear (QC): 6 (not met) Toileting(FIM): 6 (not met) Toileting Hygiene (QC): 6 (not met) Toilet/Commode Transfer(FIM): 6 (not met) Toilet/Commode Transfer (QC): 6 (not met) Shower Transfer(FIM): 6 (not met) Continue towards progress of all stated goals. Additional Goals: 1-Demonstrate ADL Tasks, 2-Verbalize Understanding, 3- ImproveStrength/Fede 1=Demonstrate adherence to instructed precautions during ADL tasks. 2=Patient will verbalize/demonstrate understanding of assistive devices/ modifications for ADL. 3=Patient will improve strength/tolerance for activity to enable patient to perform ADL's. Speech Care Home Goals Care Home Goals Patient will improve safety awareness and independence with 90% accuracy. Met LUIS VALLE OT Jun 13, 2018 12:10
--- NOTE | 2018-06-13 12:19 | Discharge Summary ---
Diagnosis/Chief Complaint Date of Admission May 17, 2018 at 14:10 Date of Discharge Discharge Date: Jun 13, 2018 Discharge Time: 1000 Discharge Diagnosis Assessment: Severe debility following critical illness and vent dependence Trach now DC PEG tube now DC Nausea resolved Mental illness precluding fast recovery Current smoker COPD Status post pneumonia Discharge Summary Discharge Physical Examination Allergies: Coded Allergies: clindamycin (Unverified Allergy, Mild, HIVES, 11/21/09) meperidine (Unverified Allergy, Mild, HAS RECEIVED FENTANYL IN THE PAST, ) morphine (Unverified Allergy, Mild, 11/21/09) codeine (Verified Adverse Reaction, Unknown, NAUSEA, 11/21/09) Vitals & I&Os Vital Signs Date Time Temp Pulse Resp B/P (MAP) Pulse Ox O2 Delivery O2 Flow Rate FiO2 06/13/18 12:11 81 20 99 Nasal Cannula 2.00 06/13/18 05:04 97.6 Hospital Course Patient had a very lengthy hospital course and inpatient rehab after she was transferred from [facility] after a long vent dependent respiratory failure which started with intubation at the local hospital at [facility]. She remained in inpatient rehab for a full 27 days ultimately able to work on strengthening and transfers in a wheelchair in addition to discontinuation of trach and PEG tube and overall had significant dramatic improvements in her status since she was very debilitated when admitted for critical illness myopathy. Home oxygen was initiated since she met criteria and she will remain on that at discharge. She will moved to [facility] facility for about 2 weeks before her apartment and [place] will be ready and overall felt pretty good about the discharge planning and will be closely followed up with primary care provider Dr. Ward. Labs (last 24 hrs) Laboratory Tests 05/17/18 14:10: Lab Scanned Report Referred Lab Report 05/17/18 16:52: Glucometer 93 05/20/18 12:00: White Blood Count 12.0H, Red Blood Count 4.20L, Hemoglobin 11.6, Hematocrit 39, Mean Corpuscular Volume 93, Mean Corpuscular Hemoglobin 28, Mean Corpuscular Hemoglobin Concent 30L, Red Cell Distribution Width 19.1H, Platelet Count 573H, Mean Platelet Volume 9.5, Neutrophils (%) (Auto) 62, Lymphocytes (%) (Auto) 27, Monocytes (%) (Auto) 6, Eosinophils (%) (Auto) 4, Basophils (%) (Auto) 0, Neutrophils # (Auto) 7.5, Lymphocytes # (Auto) 3.3, Monocytes # (Auto) 0.7, Eosinophils # (Auto) 0.5H, Basophils # (Auto) 0.0, Sodium Level 143, Potassium Level 4.0, Chloride Level 104, Carbon Dioxide Level 28, Anion Gap 11, Blood Urea Nitrogen 10, Creatinine 0.89, Estimat Glomerular Filtration Rate > 60, BUN/ Creatinine Ratio 11, Glucose Level 113H, Calcium Level 9.2, Corrected Calcium 9.6, Phosphorus Level 4.4, Magnesium Level 1.7L, Total Bilirubin 0.3, Aspartate Amino Transf (AST/SGOT) 23, Alanine Aminotransferase (ALT/SGPT) 16, Alkaline Phosphatase 89, B-Type Natriuretic Peptide 91.1, Total Protein 6.2L, Albumin 3.5 05/20/18 14:07: Blood Gas Puncture Site LEFT RADIAL, Blood Gas Patient Temperature 97.8, Arterial Blood pH 7.39, Arterial Blood Partial Pressure CO2 52H, Arterial Blood Partial Pressure O2 75L, Arterial Blood HCO3 31H, Arterial Blood Total CO2 32.2H , Arterial Blood Oxygen Saturation 97, Arterial Blood Base Excess 5.7H, Merlin Test POSITIVE, Blood Gas Ventilator Setting NO, Blood Gas Inspired Oxygen 3 L 05/21/18 04:25: White Blood Count 12.1H, Red Blood Count 3.86L, Hemoglobin 10.6L, Hematocrit 36 , Mean Corpuscular Volume 94, Mean Corpuscular Hemoglobin 28, Mean Corpuscular Hemoglobin Concent 29L, Red Cell Distribution Width 18.5H, Platelet Count 435H, Mean Platelet Volume 9.7, Sodium Level 143, Potassium Level 3.9, Chloride Level 103, Carbon Dioxide Level 30, Anion Gap 10, Blood Urea Nitrogen 13, Creatinine 0.72, Estimat Glomerular Filtration Rate > 60, BUN/Creatinine Ratio 18, Glucose Level 94, Calcium Level 9.1, Corrected Calcium 9.7, Total Bilirubin 0.3, Aspartate Amino Transf (AST/SGOT) 21, Alanine Aminotransferase (ALT/SGPT) 12, Alkaline Phosphatase 83, Total Protein 5.4L, Albumin 3.2 05/22/18 09:05: White Blood Count 12.0H, Red Blood Count 3.95L, Hemoglobin 11.0L, Hematocrit 37 , Mean Corpuscular Volume 93, Mean Corpuscular Hemoglobin 28, Mean Corpuscular Hemoglobin Concent 30L, Red Cell Distribution Width 18.7H, Platelet Count 414H, Mean Platelet Volume 9.3, Sodium Level 144, Potassium Level 3.7, Chloride Level 103, Carbon Dioxide Level 31, Anion Gap 10, Blood Urea Nitrogen 11, Creatinine 0.80, Estimat Glomerular Filtration Rate > 60, BUN/Creatinine Ratio 14, Glucose Level 126H, Calcium Level 9.2, Corrected Calcium 9.8, Total Bilirubin 0.3, Aspartate Amino Transf (AST/SGOT) 23, Alanine Aminotransferase (ALT/SGPT) 16, Alkaline Phosphatase 73, Total Protein 5.6L, Albumin 3.3, Prothrombin Time 12.7 , INR Comment 1.0, Activated Partial Thromboplast Time 32, D-Dimer 1.09H 05/22/18 10:30: Urine Color YELLOW, Urine Clarity CLEAR, Urine pH 6, Urine Specific [place] 1.020, Urine Protein NEGATIVE, Urine Glucose (UA) NEGATIVE, Urine Ketones NEGATIVE, Urine Nitrite NEGATIVE, Urine Bilirubin NEGATIVE, Urine Urobilinogen NORMAL, Urine Leukocyte Esterase 1+H, Urine RBC (Auto) 1+H, Urine RBC 0-2, Urine WBC 10-25H, Urine Squamous Epithelial Cells 5-10, Urine Renal Epithelial Cells NONE, Urine Crystals NONE, Urine Bacteria MODERATEH, Urine Casts PRESENT, Urine Hyaline Casts 5-10H, Urine Mucus SMALLH, Urine Culture Indicated YES 05/27/18 09:20: Magnesium Level 2.0 05/29/18 05:50: White Blood Count 10.3, Red Blood Count 4.40, Hemoglobin 12.3, Hematocrit 41, Mean Corpuscular Volume 93, Mean Corpuscular Hemoglobin 28, Mean Corpuscular Hemoglobin Concent 30L, Red Cell Distribution Width 18.3H, Platelet Count 315, Mean Platelet Volume 10.2 06/05/18 14:15: Urine Color YELLOW, Urine Clarity CLEAR, Urine pH 6, Urine Specific [place] 1.015L, Urine Protein NEGATIVE, Urine Glucose (UA) NEGATIVE, Urine Ketones NEGATIVE, Urine Nitrite NEGATIVE, Urine Bilirubin NEGATIVE, Urine Urobilinogen NORMAL, Urine Leukocyte Esterase 1+H, Urine RBC (Auto) NEGATIVE, Urine RBC NONE , Urine WBC 5-10H, Urine Squamous Epithelial Cells 5-10, Urine Crystals NONE, Urine Bacteria TRACE, Urine Casts NONE, Urine Mucus SMALLH, Urine Culture Indicated YES 06/09/18 06:38: White Blood Count 12.0H, Red Blood Count 4.52, Hemoglobin 12.5, Hematocrit 42, Mean Corpuscular Volume 92, Mean Corpuscular Hemoglobin 28, Mean Corpuscular Hemoglobin Concent 30L, Red Cell Distribution Width 17.6H, Platelet Count 377, Mean Platelet Volume 10.5H, Neutrophils (%) (Auto) 61, Lymphocytes (%) (Auto) 22 , Monocytes (%) (Auto) 7, Eosinophils (%) (Auto) 9, Basophils (%) (Auto) 1, Neutrophils # (Auto) 7.3, Lymphocytes # (Auto) 2.7, Monocytes # (Auto) 0.9, Eosinophils # (Auto) 1.1H, Basophils # (Auto) 0.1, Sodium Level 146H, Potassium Level 3.8, Chloride Level 105, Carbon Dioxide Level 28, Anion Gap 13, Blood Urea Nitrogen 13, Creatinine 0.86, Estimat Glomerular Filtration Rate > 60, BUN/ Creatinine Ratio 15, Glucose Level 90, Calcium Level 9.7, Corrected Calcium 9.8 , Total Bilirubin 0.3, Aspartate Amino Transf (AST/SGOT) 29, Alanine Aminotransferase (ALT/SGPT) 23, Alkaline Phosphatase 100, Total Protein 6.8, Albumin 3.9 Microbiology 06/05/18 Urine Culture - Final, Complete See Report Pending Labs Microbiology Date/Time Source Procedure Growth Status 06/05/18 14:15 Urine Clean Catch Urine Culture - Final See Report Complete 05/25/18 14:10 Urine Straight Cath, In/Out Urine Culture - Final Pseudomonas aeruginosa Enterococcus faecium Complete 05/22/18 10:30 Urine Voided Urine Urine Culture - Final Citrobacter freundii complex Pseudomonas aeruginosa Enterococcus faecium See Comments Complete Laboratory Tests 05/17/18 14:10: Lab Scanned Report Referred Lab Report 05/17/18 16:52: Glucometer 93 05/20/18 12:00: White Blood Count 12.0, Red Blood Count 4.20, Hemoglobin 11.6, Hematocrit 39, Mean Corpuscular Volume 93, Mean Corpuscular Hemoglobin 28, Mean Corpuscular Hemoglobin Concent 30, Red Cell Distribution Width 19.1, Platelet Count 573, Mean Platelet Volume 9.5, Neutrophils (%) (Auto) 62, Lymphocytes (%) (Auto) 27, Monocytes (%) (Auto) 6, Eosinophils (%) (Auto) 4, Basophils (%) (Auto) 0, Neutrophils # (Auto) 7.5, Lymphocytes # (Auto) 3.3, Monocytes # (Auto) 0.7, Eosinophils # (Auto) 0.5, Basophils # (Auto) 0.0, Sodium Level 143, Potassium Level 4.0, Chloride Level 104, Carbon Dioxide Level 28, Anion Gap 11, Blood Urea Nitrogen 10, Creatinine 0.89, Estimat Glomerular Filtration Rate > 60, BUN/ Creatinine Ratio 11, Glucose Level 113, Calcium Level 9.2, Corrected Calcium 9.6 , Phosphorus Level 4.4, Magnesium Level 1.7, Total Bilirubin 0.3, Aspartate Amino Transf (AST/SGOT) 23, Alanine Aminotransferase (ALT/SGPT) 16, Alkaline Phosphatase 89, B-Type Natriuretic Peptide 91.1, Total Protein 6.2, Albumin 3.5 05/20/18 14:07: Blood Gas Puncture Site LEFT RADIAL, Blood Gas Patient Temperature 97.8, Arterial Blood pH 7.39, Arterial Blood Partial Pressure CO2 52, Arterial Blood Partial Pressure O2 75, Arterial Blood HCO3 31, Arterial Blood Total CO2 32.2, Arterial Blood Oxygen Saturation 97, Arterial Blood Base Excess 5.7, Merlin Test POSITIVE, Blood Gas Ventilator Setting NO, Blood Gas Inspired Oxygen 3 L 05/21/18 04:25: White Blood Count 12.1, Red Blood Count 3.86, Hemoglobin 10.6, Hematocrit 36, Mean Corpuscular Volume 94, Mean Corpuscular Hemoglobin 28, Mean Corpuscular Hemoglobin Concent 29, Red Cell Distribution Width 18.5, Platelet Count 435, Mean Platelet Volume 9.7, Sodium Level 143, Potassium Level 3.9, Chloride Level 103, Carbon Dioxide Level 30, Anion Gap 10, Blood Urea Nitrogen 13, Creatinine 0.72, Estimat Glomerular Filtration Rate > 60, BUN/Creatinine Ratio 18, Glucose Level 94, Calcium Level 9.1, Corrected Calcium 9.7, Total Bilirubin 0.3, Aspartate Amino Transf (AST/SGOT) 21, Alanine Aminotransferase (ALT/SGPT) 12, Alkaline Phosphatase 83, Total Protein 5.4, Albumin 3.2 05/22/18 09:05: White Blood Count 12.0, Red Blood Count 3.95, Hemoglobin 11.0, Hematocrit 37, Mean Corpuscular Volume 93, Mean Corpuscular Hemoglobin 28, Mean Corpuscular Hemoglobin Concent 30, Red Cell Distribution Width 18.7, Platelet Count 414, Mean Platelet Volume 9.3, Sodium Level 144, Potassium Level 3.7, Chloride Level 103, Carbon Dioxide Level 31, Anion Gap 10, Blood Urea Nitrogen 11, Creatinine 0.80, Estimat Glomerular Filtration Rate > 60, BUN/Creatinine Ratio 14, Glucose Level 126, Calcium Level 9.2, Corrected Calcium 9.8, Total Bilirubin 0.3, Aspartate Amino Transf (AST/SGOT) 23, Alanine Aminotransferase (ALT/SGPT) 16, Alkaline Phosphatase 73, Total Protein 5.6, Albumin 3.3, Prothrombin Time 12.7, INR Comment 1.0, Activated Partial Thromboplast Time 32, D-Dimer 1.09 05/22/18 10:30: Urine Color YELLOW, Urine Clarity CLEAR, Urine pH 6, Urine Specific [place] 1.020, Urine Protein NEGATIVE, Urine Glucose (UA) NEGATIVE, Urine Ketones NEGATIVE, Urine Nitrite NEGATIVE, Urine Bilirubin NEGATIVE, Urine Urobilinogen NORMAL, Urine Leukocyte Esterase 1+, Urine RBC (Auto) 1+, Urine RBC 0-2, Urine WBC 10-25, Urine Squamous Epithelial Cells 5-10, Urine Renal Epithelial Cells NONE, Urine Crystals NONE, Urine Bacteria MODERATE, Urine Casts PRESENT, Urine Hyaline Casts 5-10, Urine Mucus SMALL, Urine Culture Indicated YES 05/27/18 09:20: Magnesium Level 2.0 05/29/18 05:50: White Blood Count 10.3, Red Blood Count 4.40, Hemoglobin 12.3, Hematocrit 41, Mean Corpuscular Volume 93, Mean Corpuscular Hemoglobin 28, Mean Corpuscular Hemoglobin Concent 30, Red Cell Distribution Width 18.3, Platelet Count 315, Mean Platelet Volume 10.2 06/05/18 14:15: Urine Color YELLOW, Urine Clarity CLEAR, Urine pH 6, Urine Specific [place] 1.015, Urine Protein NEGATIVE, Urine Glucose (UA) NEGATIVE, Urine Ketones NEGATIVE, Urine Nitrite NEGATIVE, Urine Bilirubin NEGATIVE, Urine Urobilinogen NORMAL, Urine Leukocyte Esterase 1+, Urine RBC (Auto) NEGATIVE, Urine RBC NONE, Urine WBC 5-10, Urine Squamous Epithelial Cells 5-10, Urine Crystals NONE, Urine Bacteria TRACE, Urine Casts NONE, Urine Mucus SMALL, Urine Culture Indicated YES 06/09/18 06:38: White Blood Count 12.0, Red Blood Count 4.52, Hemoglobin 12.5, Hematocrit 42, Mean Corpuscular Volume 92, Mean Corpuscular Hemoglobin 28, Mean Corpuscular Hemoglobin Concent 30, Red Cell Distribution Width 17.6, Platelet Count 377, Mean Platelet Volume 10.5, Neutrophils (%) (Auto) 61, Lymphocytes (%) (Auto) 22 , Monocytes (%) (Auto) 7, Eosinophils (%) (Auto) 9, Basophils (%) (Auto) 1, Neutrophils # (Auto) 7.3, Lymphocytes # (Auto) 2.7, Monocytes # (Auto) 0.9, Eosinophils # (Auto) 1.1, Basophils # (Auto) 0.1, Sodium Level 146, Potassium Level 3.8, Chloride Level 105, Carbon Dioxide Level 28, Anion Gap 13, Blood Urea Nitrogen 13, Creatinine 0.86, Estimat Glomerular Filtration Rate > 60, BUN/ Creatinine Ratio 15, Glucose Level 90, Calcium Level 9.7, Corrected Calcium 9.8 , Total Bilirubin 0.3, Aspartate Amino Transf (AST/SGOT) 29, Alanine Aminotransferase (ALT/SGPT) 23, Alkaline Phosphatase 100, Total Protein 6.8, Albumin 3.9 Discharge Home Medications: Active Scripts Active Sucralfate 1 Gm Tablet 1 Gm PO TID 30 Days [Multivitamins/Minerals Therap] 1 EA Tablet 1 Ea PO DAILY@0700 30 Days Vitamin B-12 (Cyanocobalamin (Vitamin B-12)) 1,000 Mcg Tablet 1,000 Mcg PO DAILY @0700 30 Days Pantoprazole Sodium 40 Mg Tablet.dr 40 Mg PO BID@0700,2100 30 Days Ondansetron Odt (Ondansetron) 8 Mg Tab.rapdis 8 Mg PO Q6H PRN 30 Days Advair Hfa 115-21 Mcg Inhaler (Fluticasone/Salmeterol) 12 Gm Hfa.aer.ad 0 Puff IH BID@08,20 30 Days Hydrocodon-Acetaminophn 10-325 (Hydrocodone/Acetaminophen) 1 Each Tablet 2 Ea PO Q4H PRN Enoxaparin Sodium 40 Mg/0.4 Ml Syringe 40 Mg SC DAILY 30 Days Reported Acid Nurse Coordinator (FAMOTIDINE) (Famotidine) 20 Mg Tablet 20 Mg PO BID Zyprexa (Olanzapine) 20 Mg Tablet 40 Mg PO HS Tylenol (Acetaminophen) 325 Mg Tablet 650 Mg PO Q6H PRN Albuterol Sulfate 2.5 Mg/3 Ml Vial.neb 2.5 Mg NEB QID Bevespi Aerosphere Inhaler (Glycopyrrolate/Formoterol Fum) 10.7 Gm Hfa.aer.ad 2 Puff IH BID Miralax (Polyethylene Glycol 3350) 17 Gm Powd.pack 17 Gm PO DAILY Vitamin D3 (Cholecalciferol (Vitamin D3)) 5,000 Unit Tablet 5,000 Unit PO DAILY Lipitor (Atorvastatin Calcium) 10 Mg Tablet 10 Mg PO HS Aricept (Donepezil HCl) 10 Mg Tablet 10 Mg PO HS Toprol Xl (Metoprolol Succinate) 100 Mg Tab.er.24h 100 Mg PO DAILY Meloxicam 15 Mg Tablet 15 Mg PO DAILY Cyclobenzaprine HCl 10 Mg Tablet 10 Mg PO TID Cetirizine HCl 10 Mg Tablet 10 Mg PO DAILY Instructions to patient/family Please see electronic discharge instructions given to patient. Diagnosis/Problems Diagnosis/Problems (1) Myopathy Status: Acute (2) Nausea Status: Resolved Resolution Date/Time: 05/25/18 @ 14:29 (3) Chronic mental illness Status: Chronic (4) Personal history of supraventricular tachycardia Status: Chronic (5) Smoker Status: Chronic (6) Hypertension Status: Chronic Qualifiers: Qualified Codes: I10 - Essential (primary) hypertension (7) Bipolar disorder Status: Chronic Qualifiers: Qualified Codes: F31.9 - Bipolar disorder, unspecified (8) COPD (chronic obstructive pulmonary disease) Status: Chronic Qualifiers: Qualified Codes: J44.9 - Chronic obstructive pulmonary disease, unspecified (9) Oxygen dependent Status: Chronic Clinical Quality Measures DVT/VTE Risk/Contraindication: Risk Factor Score Per Nursin RFS Level Per Nursing on Admit: 4+=Very High SAMANTHA COLLIER DO Jun 13, 2018 12:19
== END 2018-06-13 12:10 | DRG 92 ==
PROVIDERS: ADMIT Physical Medicine & Rehabilitation; ATTEND Physical Medicine & Rehabilitation
DX: G72.81 Critical illness myopathy (principal); Z93.0 Tracheostomy status; J44.9 Chronic obstructive pulmonary disease, unspecified; R06.89 Other abnormalities of breathing; N39.0 Urinary tract infection, site not specified; I25.10 Atherosclerotic heart disease of native coronary artery without angina pectoris; I10 Essential (primary) hypertension; M25.511 Pain in right shoulder; M25.512 Pain in left shoulder; K21.9 Gastro-esophageal reflux disease without esophagitis; K44.9 Diaphragmatic hernia without obstruction or gangrene; E03.9 Hypothyroidism, unspecified; F41.9 Anxiety disorder, unspecified; F31.9 Bipolar disorder, unspecified; F60.9 Personality disorder, unspecified; L40.9 Psoriasis, unspecified; E66.01 Morbid (severe) obesity due to excess calories; M19.90 Unspecified osteoarthritis, unspecified site; G60.9 Hereditary and idiopathic neuropathy, unspecified; B35.1 Tinea unguium; M20.41 Other hammer toe(s) (acquired), right foot; M20.42 Other hammer toe(s) (acquired), left foot; E78.00 Pure hypercholesterolemia, unspecified; F17.210 Nicotine dependence, cigarettes, uncomplicated; B95.2 Enterococcus as the cause of diseases classified elsewhere; Z16.21 Resistance to vancomycin; Z68.37 Body mass index [BMI] 37.0-37.9, adult; Z99.81 Dependence on supplemental oxygen
CPT/HCPCS: 36415; 36600; 71046; 71260; 78582; 80053; 81000; 82805; 82962; 83735; 83880; 84100; 85025; 85027; 85379; 85610; 85730; 87077; 87088; 87181; 87186; 93970; 94640; 94664; 94760; 94761; 94799

== ENCOUNTER 2018-07-05 12:00 | Inpatient (IN) | payer MEDICARE, OTHER ==
[~2018-07-05] VITALS: Ht 170.2 cm; Wt 103.9 kg
[2018-07-05] VITALS (11 sets, daily range): BP systolic 124–183; BP diastolic 74–132
[~2018-07-05 12:00] MED LIST changes: +CYAN10006 PO; +ENOX40DI8 SC; +FAMO20TA3 PO; +FLUT12AE4 IH; +HYDR-3820 PO; +Multivitamins/Minerals Therap PO; +ONDA8TAB13 PO; +PANT40TA3 PO; +SUCR1TAB PO
[2018-07-05] MEDS ORDERED: NS IV 1000 ML 1,000 ML IV SCH ×3 (12:11→22:00)
[2018-07-05] MEDS ORDERED: RT-ALBUTEROL/IPRATROPIUM 3 ML (DUONEB) VIAL INH ONE (12:15)
--- NOTE | 2018-07-05 12:20 | ED Fall/Injury ---
General Stated Complaint: FALL Source: patient, EMS Exam Limitations: no limitations History of Present Illness Date Seen by Provider: Jul 05, 2018 Time Seen by Provider: 12:09 Initial Comments The patient presents to ER by EMS with chief complaint that just prior to calling EMS she was in her home you not using her walker and she fell. She does not know why her she fell but she denies striking her head or loss of consciousness. She says she got up to do something and was going back to her computer chair when she went to sit down she missed the chair and just sat on the ground. She pulled herself up and used her cell phone to call for help. She' s having some pain in her left inner thigh and leg as well as pain in her left shoulder and humerus area. She denies being on blood thinners. She says she recently had hospitalization here at [facility] for pneumonia and then spent what felt like years in rehabilitation at or the local nursing homes. She does use a hydrocodone 2 tablets at a time as needed once or twice a day. She's not sure strength. She has not taken any today but she says her pain is not bad enough to need anything. The patient relies on 2-3 L per nasal cannula of oxygen and was wearing at the time. She was not using her walker however. Patient does reports she's been having more productive cough for the last for 5 days. She has been using her rescue albuterol MDI. She's used twice this morning. Allergies and Home Medications Allergies Coded Allergies: clindamycin (Unverified Allergy, Mild, HIVES, 11/21/09) meperidine (Unverified Allergy, Mild, HAS RECEIVED FENTANYL IN THE PAST, ) morphine (Unverified Allergy, Mild, 11/21/09) codeine (Verified Adverse Reaction, Unknown, NAUSEA, 11/21/09) Home Medications Acetaminophen 325 Mg Tablet, 650 MG PO Q6H PRN for PAIN-MILD, (Reported) Albuterol Sulfate 2.5 Mg/3 Ml Vial.neb, 2.5 MG NEB QID, (Reported) Atorvastatin Calcium 10 Mg Tablet, 10 MG PO HS, (Reported) Cetirizine HCl 10 Mg Tablet, 10 MG PO DAILY, (Reported) Cholecalciferol (Vitamin D3) 5,000 Unit Tablet, 5,000 UNIT PO DAILY, (Reported) Cyanocobalamin (Vitamin B-12) 1,000 Mcg Tablet, 1,000 MCG PO DAILY@0700 Prescribed by: SAMANTHA COLLIER on 06/12/182120 Cyclobenzaprine HCl 10 Mg Tablet, 10 MG PO TID, (Reported) Donepezil HCl 10 Mg Tablet, 10 MG PO HS, (Reported) Enoxaparin Sodium 40 Mg/0.4 Ml Syringe, 40 MG SC DAILY Prescribed by: SAMANTHA COLLIER on 06/12/182120 Famotidine 20 Mg Tablet, 20 MG PO BID, (Reported) Fluticasone/Salmeterol 12 Gm Hfa.aer.ad, 0 PUFF IH BID@08,20 Prescribed by: SAMANTHA COLLIER on 06/12/182120 Glycopyrrolate/Formoterol Fum 10.7 Gm Hfa.aer.ad, 2 PUFF IH BID, (Reported) Hydrocodone/Acetaminophen 1 Each Tablet, 2 EA PO Q4H PRN for PAIN-MODERATE Prescribed by: SAMANTHA COLLIER on 06/12/182120 Meloxicam 15 Mg Tablet, 15 MG PO DAILY, (Reported) Metoprolol Succinate 100 Mg Tab.er.24h, 100 MG PO DAILY, (Reported) Olanzapine 20 Mg Tablet, 40 MG PO HS, (Reported) Ondansetron 8 Mg Tab.rapdis, 8 MG PO Q6H PRN for NAUSEA/VOMITING-1ST LINE Prescribed by: SAMANTHA COLLIER on 06/12/182120 Pantoprazole Sodium 40 Mg Tablet.dr, 40 MG PO BID@0700,2100 Prescribed by: SAMANTHA COLLIER on 06/12/182120 Polyethylene Glycol 3350 17 Gm Powd.pack, 17 GM PO DAILY, (Reported) Sucralfate 1 Gm Tablet, 1 GM PO TID Prescribed by: SAMANTHA COLLIER on 06/12/182120 [Multivitamins/Minerals Therap] 1 EA TABLET, 1 EA PO DAILY@0700 Prescribed by: SAMANTHA COLLIER on 06/12/182120 Patient Home Medication List Home Medication List Reviewed: Yes Review of Systems Review of Systems Constitutional: No chills, No diaphoresis Eyes: Denies Blindness, Denies Blurred Vision Ears, Nose, Mouth, Throat: denies ear pain, denies ear discharge Respiratory: No cough, No short of breath Cardiovascular: No chest pain, No edema Gastrointestinal: No abdominal pain, No constipation, No diarrhea, No nausea Genitourinary: No discharge, No dysuria Musculoskeletal: see HPI; No back pain; joint pain Past Nyhnpcw-Dohsag-Ylizaw Hx Patient Social History Alcohol Use: Denies Use Recreational Drug Use: No Smoking Status: Former Smoker Type Used: Cigarettes 2nd Hand Smoke Exposure: Yes Recent Hopitalizations: No Immunizations Up To Date Tetanus Booster (TDap): Unknown PED Vaccines UTD: No Date of Pneumonia Vaccine: Mar 11, 2011 Date of Influenza Vaccine: Feb 22, 2018 Seasonal Allergies Seasonal Allergies: No Past Medical History Surgeries: Yes (PILONIDAL CYST, segmoid Colectomy 09/29/09, BOWEL RESECTION, COLOSTOMY ) Appendectomy, Bowel Surgery, Breast, Section, Hysterectomy, Oophorectomy, Tracheostomy Respiratory: Yes Chronic Bronchitis, COPD Currently Using CPAP: No Currently Using BIPAP: No Cardiac: Yes (SVT) Chronic Edema/Swelling, Coronary Artery Disease, High Cholesterol, Hypertension Neurological: Yes Headaches /Migraines Reproductive Disorders: Yes (RIGHT BREAST BENING LUMP-REMOVED) Female Reproductive Disorders: Denies Sexually Transmitted Disease: No HIV/AIDS: No Genitourinary: No Gastrointestinal: Yes Gastroesophageal Reflux, Hiatal Hernia, Ulcer Musculoskeletal: Yes (CHRONIC GENERALIZED PAIN ) Arthritis Endocrine: Yes Hypothyroidsim, Lupus Loss of Vision: Denies Hearing Impairment: Denies Cancer: No Psychosocial: Yes Anxiety, Bipolar, Personality Disorder, Depression Integumentary: Yes Psoriasis Blood Disorders: Yes (ANEMIA POST OP) Family Medical History Arthritis 19 FATHER 19 MOTHER Cardiovascular disease 19 FATHER Cataracts 19 MOTHER Completed stroke 19 MOTHER Dysphasia 19 FATHER FH: cirrhosis 19 MOTHER Glaucoma 19 MOTHER Hypercholesterolemia 19 FATHER Hypertension 19 FATHER 19 MOTHER Myocardial infarction 19 FATHER Osteoporosis 19 MOTHER No Family History of: AIDS Abdominal aortic aneurysm Villalba's disease Alcoholism Alzheimer's disease Aphasia Asthma Cancer of mouth Colon cancer Congenital disease Congenital heart disease Coronary thrombosis Cystic fibrosis Deafness or hearing loss Dementia Diabetes mellitus Drug abuse Fibrocystic disease of breast Gastroenteritis Headache disorder Infertility Kidney disease Neoplasm Not obtainable due to adoption Parkinson's disease Prostate cancer Psychosocial problem Respiratory disorder Seizure disorder Severe allergy Thyroid disease Tuberculosis Visual disorder GI Disease Physical Exam Vital Signs Vital Signs - First Documented 07/05/18 07/05/18 12:00 12:50 Temp 100.2 Pulse 153 Resp 38 B/P (MAP) 139/89 (106) Pulse Ox 93 O2 Delivery Nasal Cannula O2 Flow Rate 3.00 Capillary Refill : Height, Weight, BMI Height: 5'5.00" Weight: 225lbs. 1.6oz. 102.057996ta; 38.8 BMI Method:Stated General Appearance: mild distress, obese HEENT: PERRL/EOMI, normal ENT inspection, TMs normal, pharynx normal Neck: non-tender, full range of motion, supple, normal inspection Cardiovascular: normal peripheral pulses, regular rate, rhythm, no edema, no murmur, tachycardia Respiratory: chest non-tender, no respiratory distress, no accessory muscle use , decreased breath sounds, rhonchi (faint upper), expiration (prolonged) Peripheral Pulses: 2+ Dorsalis Pedis (R), 2+ Left Dors-Pedis (L), 2+ Radial Pulses (R), 2+ Radial Pulses (L) Gastrointestinal: normal bowel sounds, non tender, soft Extremities: other (limited range of motion of abduction of the left shoulder. Tenderness to palpation along the shaft of the left humerus. 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, no motor/sensory deficits, alert, normal mood/affect, oriented x 3 Skin: normal color, warm/dry Progress/Results/Core Measures Results/Orders Lab Results Laboratory Tests Test 07/05/18 12:27 07/05/18 12:35 07/05/18 13:05 Range/Units White Blood Count 19.9 H 4.3-11.0 10^3/uL Red Blood Count 4.77 4.35-5.85 10^6/uL Hemoglobin 13.5 11.5-16.0 G/DL Hematocrit 44 35-52 % Mean Corpuscular Volume 92 80-99 FL Mean Corpuscular Hemoglobin 28 25-34 PG Mean Corpuscular Hemoglobin Concent 31 L 32-36 G/DL Red Cell Distribution Width 16.4 H 10.0-14.5 % Platelet Count 378 130-400 10^3/uL Mean Platelet Volume 10.3 7.4-10.4 FL Neutrophils (%) (Auto) 83 H 42-75 % Lymphocytes (%) (Auto) 9 L 12-44 % Monocytes (%) (Auto) 8 0-12 % Eosinophils (%) (Auto) 0 0-10 % Basophils (%) (Auto) 0 0-10 % Neutrophils # (Auto) 16.5 H 1.8-7.8 X 10^3 Lymphocytes # (Auto) 1.8 1.0-4.0 X 10^3 Monocytes # (Auto) 1.5 H 0.0-1.0 X 10^3 Eosinophils # (Auto) 0.0 0.0-0.3 10^3/uL Basophils # (Auto) 0.1 0.0-0.1 10^3/uL Neutrophils % (Manual) 72 % Lymphocytes % (Manual) 11 % Monocytes % (Manual) 10 % Eosinophils % (Manual) 0 % Basophils % (Manual) 0 % Band Neutrophils 7 % Toxic Granulation 1+ Blood Morphology Comment NORMAL Prothrombin Time 12.9 12.2-14.7 SEC INR Comment 1.0 0.8-1.4 Activated Partial Thromboplast Time 35 24-35 SEC Sodium Level 143 135-145 MMOL/L Potassium Level 4.2 3.6-5.0 MMOL/L Chloride Level 101 98-107 MMOL/L Carbon Dioxide Level 29 21-32 MMOL/L Anion Gap 13 5-14 MMOL/L Blood Urea Nitrogen 14 7-18 MG/DL Creatinine 0.91 0.60-1.30 MG/DL Estimat Glomerular Filtration Rate > 60 BUN/Creatinine Ratio 15 Glucose Level 112 H 70-105 MG/DL Calcium Level 9.9 8.5-10.1 MG/DL Corrected Calcium 10.0 8.5-10.1 MG/DL Total Bilirubin 0.4 0.1-1.0 MG/DL Aspartate Amino Transf (AST/SGOT) 21 5-34 U/L Alanine Aminotransferase (ALT/SGPT) 18 0-55 U/L Alkaline Phosphatase 115 40-136 U/L Troponin I 0.114 <0.028 NG/ML Total Protein 7.4 6.4-8.2 GM/DL Albumin 3.9 3.2-4.5 GM/DL Blood Gas Puncture Site RIGHT RADIAL Blood Gas Patient Temperature 98 Arterial Blood pH 7.37 7.37-7.43 Arterial Blood Partial Pressure CO2 55 H 35-45 MMHG Arterial Blood Partial Pressure O2 72 L 79-93 MMHG Arterial Blood HCO3 31 H 23-27 MMOL/L Arterial Blood Total CO2 33.1 H 21.0-31.0 MMOL/L Arterial Blood Oxygen Saturation 95 94-100 % Arterial Blood Base Excess 6.2 H -2.5-2.5 MMOL/L Merlin Test POSITIVE Blood Gas Ventilator Setting NO Blood Gas Inspired Oxygen 3 L Urine Color YELLOW Urine Clarity CLEAR Urine pH 6 5-9 Urine Specific [place] 1.015 L 1.016-1.022 Urine Protein 2+ H NEGATIVE Urine Glucose (UA) NEGATIVE NEGATIVE Urine Ketones NEGATIVE NEGATIVE Urine Nitrite NEGATIVE NEGATIVE Urine Bilirubin NEGATIVE NEGATIVE Urine Urobilinogen NORMAL NORMAL MG/DL Urine Leukocyte Esterase 1+ H NEGATIVE Urine RBC (Auto) NEGATIVE NEGATIVE Urine RBC NONE /HPF Urine WBC 2-5 /HPF Urine Squamous Epithelial Cells 2-5 /HPF Urine Crystals PRESENT H /LPF Urine Amorphous Sediment MOD FERNANDO URATES H /LPF Urine Bacteria TRACE /HPF Urine Casts PRESENT /LPF Urine Hyaline Casts 2-5 H /LPF Urine Mucus SMALL H /LPF Urine Culture Indicated YES Micro Results Microbiology 07/05/18 Influenza Types A,B Antigen (TRAY) - Final, Complete My Orders Orders - SHERIN BOURNE Arterial Blood Gas (07/05/18 12:11) Cbc With Automated Diff (07/05/18 12:11) Comprehensive Metabolic Panel (07/05/18 12:11) Ua Culture If Indicated (07/05/18 12:11) Chest 1 View, Ap/Pa Only (07/05/18 12:11) Shoulder, Left, 3 Views (07/05/18 12:11) Humerus, Left, 2 Views (07/05/18 12:11) Elbow, Left, 3 Views (07/05/18 12:11) Femur, Left, 2 Views (07/05/18 12:11) Tibia/Fibula, Left, 2 Views (07/05/18 12:11) Albuterol/Ipra Inhalation Soln (Duoneb I (07/05/18 12:15) Saline Lock/Iv-Start (07/05/18 12:11) Ns Iv 1000 Ml (Sodium Chloride 0.9%) (07/05/18 12:11) Svn Small Volume Nebulizer (07/05/18 12:11) Ekg Tracing (07/05/18 12:27) Continuous Ekg Monitoring (07/05/18 12:27) Troponin I (07/05/18 12:27) Manual Differential (07/05/18 12:27) Sodium Chl Inhalation (Rt-Sodium Chl Inh (07/05/18 12:40) Albuterol Pre-Mix Nebs (Rt) (Proventil (07/05/18 12:40) Straight Cath For Spec.-Adult (07/05/18 12:45) Albuterol Pre-Mix Nebs (Rt) (Proventil (07/05/18 12:50) Svn Small Volume Nebulizer (07/05/18 12:46) Sodium Chl Inhalation (Rt-Sodium Chl Inh (07/05/18 13:00) Svn Small Volume Nebulizer (07/05/18 12:46) Urine Culture (07/05/18 13:05) Blood Culture (07/05/18 13:30) Sputum Culture (07/05/18 13:30) Protime With Inr (07/05/18 13:30) Partial Thromboplastin Time (07/05/18 13:30) Saline Lock/Iv-Start (07/05/18 13:30) Saline Lock/Iv-Start (07/05/18 13:30) O2 (07/05/18 13:30) Remove Rings In Anticipation O (07/05/18 13:30) Lactic Acid Analyzer (07/05/18 13:30) Influenza A And B Antigens (07/05/18 13:30) Ns Iv 1000 Ml (Sodium Chloride 0.9%) (07/05/18 13:30) Piperacillin Sodium/Tazobactam (Zosyn Vi (07/05/18 13:30) Knee, Left, 2 Views (Ap & Lat) (07/05/18 14:40) Fentanyl Injection (Sublimaze Injection (07/05/18 15:30) Medications Given in ED Current Medications Medications Dose Ordered Sig/Randy Route Start Time Stop Time Status Last Admin Dose Admin Albuterol Sulfate 7.5 mg ONCE ONCE INH 07/05/18 12:50 07/05/18 12:51 DC 07/05/18 12:49 7.5 MG Albuterol/ Ipratropium 3 ml ONCE ONCE INH 07/05/18 12:15 07/05/18 12:16 DC 07/05/18 12:49 3 ML Fentanyl Citrate 75 mcg ONCE ONCE IVP 07/05/18 15:30 07/05/18 15:31 DC 07/05/18 15:30 75 MCG Piperacillin Sod/ Tazobactam Sod 4.5 gm/Sodium Chloride 100 ml @ 200 mls/hr ONCE ONCE IV 07/05/18 13:30 07/05/18 13:59 DC 07/05/18 14:55 200 MLS/HR Sodium Chloride 7.5 ml ONCE ONCE IH 07/05/18 13:00 07/05/18 13:01 DC 07/05/18 12:49 7.5 ML Vital Signs/I&O 07/05/18 07/05/18 12:00 12:50 Temp 100.2 Pulse 153 Resp 38 B/P (MAP) 139/89 (106) Pulse Ox 93 96 O2 Delivery Nasal Cannula O2 Flow Rate 3.00 Progress Progress Note #1: Time: 12:23 Progress Note Patient's having some pain in her left knee and left shoulders we'll obtain some plain films. She is also having some faint rale rhonchi and diminished breath sounds. She's not used her breathing treatment lately because she said since she moved in on Sunday she is not tolerating unpacked yet. Really give her breathing treatment and reassess her breathing. We'll also get an ABG given her oxygen use this could be a cause for her fall. We'll obtain some basic labs and urine to help us determine whether there is a recurrence of her pneumonia versus UTI versus other reason for her falls. She's declining anything for pain or nausea at this time. Patient's tachycardia 140-150 is regular and could be from pain, dehydration etc. Give her a liter fluids and observe it. Obtain an EKG. Progress Note #2: Time: 13:35 Progress Note Patient's tachycardia plus her elevated white count literature in the realm of sepsis. We will Elect Zosyn since she's recently had inpatient stay less than 90 days ago and pneumonia is most likely. The straight catheter urinalysis does not reveal infection. 20 mL/kg of fluids would be 2 L. We'll also obtain influenza swab. ABG demonstrates hypercapnia. Initial ECG Impression Date: Jul 05, 2018 Initial ECG Impression Time: 12:27 Initial ECG Rate: 152 Initial ECG Rhythm: S.Tach Initial ECG Intervals: Normal Initial ECG Impression: Normal, Nonspecific Changes Initial ECG Comparisson: Changed Comment Sinus tachycardia without ST elevation or depression. Diagnostic Imaging Diagonstic Imaging: Xray Plain Films/CT/US/NM/MRI: chest (1v) Comments [facility] [place], [place] NAME: CALEB ANDERSEN [facility] REC#: [id number] PT STATUS: REG ER : 1960 PHYSICIAN: SHERIN BOURNE MD ADMIT DATE: 07/05/18/ER Draft Date of Exam:07/05/18 CHEST 1 VIEW, AP/PA ONLY INDICATION: Fall and chest pain. TIME OF EXAM: 01:49 p.m. COMPARISON: Comparison is made with prior chest from 05/28/2018. FINDINGS: Heart size is stable. There appear to be some interstitial infiltrates in the right upper lobe as well as in the left perihilar region, increased since prior exam. No effusion or pneumothorax is seen. IMPRESSION: Worsening bilateral pulmonary infiltrates suggestive of pneumonia when compared with exam from 05/28/2018. Dictated on workstation # [id number] Dict: 07/05/18 1448 Trans: 07/05/18 1453 [id number] Interpreted by: CELENA ESPITIA MD Electronically signed by: Reviewed: Reviewed by Me Diagonstic Imaging: Xray Plain Films/CT/US/NM/MRI: elbow (left), other (left shoulder humerus and elbow) Comments [facility] [place], [place] NAME: CALEB ANDERSEN [facility] REC#: [id number] PT STATUS: REG ER : 1960 PHYSICIAN: SHERIN BOURNE MD ADMIT DATE: 07/05/18/ER Draft Date of Exam:07/05/18 SHOULDER, LEFT, 3 VIEWS INDICATION: Fall with left shoulder pain. AP, oblique, and trans-scapular views of the left shoulder are obtained. There is prominent degenerative change of the glenohumeral joint with joint space narrowing, subchondral sclerosis, and geode formation. AC joint appears intact. There is no acute fracture or dislocation. IMPRESSION: Advanced degenerative change of the glenohumeral joint. No acute fracture or dislocation. Dictated on workstation # [id number] Dict: 07/05/18 1447 Trans: 07/05/185 [id number] Interpreted by: FRANCIS KATHLEEN MD Electronically signed by: BEE BRANCH, [place] NAME: CALEB ANDERSEN [facility] REC#: [id number] PT STATUS: REG ER : 1960 PHYSICIAN: SHERIN BOURNE MD ADMIT DATE: 07/05/18/ER Draft Date of Exam:07/05/18 HUMERUS, LEFT, 2 VIEWS INDICATION: Fall with left arm pain. Time of exam 2:04 PM 2 views of the left humerus demonstrate normal alignment at the shoulder and elbow. The humerus is intact. No fractures are seen. IMPRESSION: No acute bony abnormality is detected. Dictated on workstation # [id number] Dict: 07/05/18 1449 Trans: 07/05/184 [facility] [id number] Interpreted by: CELENA ESPITIA MD Electronically signed by: BEE [place], [place] NAME: CALEB ANDERSEN [facility] REC#: [id number] PT STATUS: REG ER : 1960 PHYSICIAN: SHERIN BOURNE MD ADMIT DATE: 07/05/18/ER Draft Date of Exam:07/05/18 ELBOW, LEFT, 3 VIEWS INDICATION: Fall with left elbow pain. TIME OF EXAM: 2:29 p.m. FINDINGS: Three views of the left elbow demonstrate normal alignment. The joint spaces are well maintained. No fracture, dislocation, or effusion is seen. IMPRESSION: No acute bony abnormality is detected. Dictated on workstation # [id number] Dict: 07/05/18 1450 Trans: 07/05/18 145 [id number] Interpreted by: CELENA ESPITIA MD Electronically signed by: Reviewed: Reviewed by Me Diagonstic Imaging: Xray Plain Films/CT/US/NM/MRI: knee (left tib-fib and humerus) Comments [facility] [place] [place] NAME: CALEB ANDERSEN [facility] REC#: [id number] PT STATUS: REG ER : 1960 PHYSICIAN: SHERIN BOURNE MD ADMIT DATE: 07/05/18/ER Draft Date of Exam:07/05/18 KNEE, LEFT, 2 VIEWS (AP & LAT) INDICATION: Fall with left knee pain. TIME OF EXAM: 2:09 p.m. FINDINGS: Frontal and lateral views of the left knee were obtained. Patellofemoral degenerative change with joint space narrowing and spurring is present. There is some spurring involving the lateral compartment of the knee, but the medial and lateral compartments are well maintained. No fracture, dislocation, or effusion is seen. IMPRESSION: Degenerative changes. No acute bony abnormality is detected. Dictated on workstation # [id number] Dict: 07/05/18 1452 Trans: 07/05/18 1455 [id number] Interpreted by: CELENA ESPITIA MD Electronically signed by: [employer] [place], [place] NAME: CALEB ANDERSEN [facility] REC#: [id number] PT STATUS: REG ER : 1960 PHYSICIAN: SHERIN BOURNE MD ADMIT DATE: 07/05/18/ER Draft Date of Exam:07/05/18 FEMUR, LEFT, 2 VIEWS INDICATION: Fall with left leg pain. TIME OF EXAMINATION: 02:08 p.m. FINDINGS: Frontal and lateral views of the left femur were obtained. Alignment at the hip and knee appears normal. No fracture or dislocation is identified. Patellofemoral degenerative changes are seen. IMPRESSION: No acute bony abnormality is detected. Dictated on workstation # [id number] Dict: 07/05/18 1451 Trans: 07/05/18 1455 [facility] [phone] Interpreted by: CELENA ESPITIA MD Electronically signed by: [facility] [employer] [facility] [place] [place] NAME: CALEB ANDERSEN [facility] REC#: [id number] PT STATUS: REG ER : 1960 PHYSICIAN: SHERIN BOURNE MD ADMIT DATE: 07/05/18/ER Draft Date of Exam:07/05/18 TIBIA/FIBULA, LEFT, 2 VIEWS INDICATION: Fall with left leg pain AP and lateral views of the left tibia and fibula are performed. No fracture or acute bony abnormality is seen. IMPRESSION: Negative left tibia and fibula. Dictated on workstation # [id number] Dict: 07/05/18 1448 Trans: 07/05/18 1453 [facility] [id number] Interpreted by: FRANCIS KATHLEEN MD Electronically signed by: Reviewed: Reviewed by Me Departure Communication (Admissions) Time/Spoke to Admitting Phy: 15:30 Discussed the case lab imaging findings with Dr. Collier and she is familiar with the patient. She would like the patient in ICU with pulmonology consult. Time/Spoke to Consulting Phy: 15:31 Discussed case lab imaging findings with Dr. Berman, pulmonology. He agrees with Zosyn and vancomycin as well as Vapotherm. He will see the patient. Impression Primary Impression: Pneumonia Qualified Codes: J18.1 - Lobar pneumonia, unspecified organism Additional Impressions: Fall Qualified Codes: W19.XXXA - Unspecified fall, initial encounter Acute on chronic respiratory failure with hypoxia and hypercapnia Disposition: ADMITTED INPATIENT Condition: Stable Admissions Decision to Admit Reason: Admit from ER (General) Decision to Admit/Date: Jul 05, 2018 Time/Decision to Admit Time: 15:25 Departure-Patient Inst. Referrals: JOCELYNE MEI DO (PCP/Family) Primary Care Physician Copy Copies To 1: JOCELYNE MEI TITUS J Jul 05, 2018 12:20
[2018-07-05 12:36] LABS: BASOPHILS # (AUTO) 0.1 10^3/uL (0.0-0.1); BASOPHILS % (AUTO) 0 % (0-10); EOSINOPHILS % (AUTO) 0 % (0-10); HEMATOCRIT 44 % (35-52); HEMOGLOBIN 13.5 G/DL (11.5-16.0); LYMPHOCYTES # (AUTO) 1.8 X 10^3 (1.0-4.0); LYMPHOCYTES % (AUTO) 9 % (12-44); MEAN CORPUSCULAR HEMOGLOBIN 28 PG (25-34); MEAN CORPUSCULAR HGB CONC 31 G/DL (32-36); MEAN CORPUSCULAR VOLUME 92 FL (80-99); MEAN PLATELET VOLUME 10.3 FL (7.4-10.4); MONOCYTES # (AUTO) 1.5 X 10^3 (0.0-1.0); MONOCYTES % (AUTO) 8 % (0-12); NEUTROPHILS # (AUTO) 16.5 X 10^3 (1.8-7.8); NEUTROPHILS % (AUTO) 83 % (42-75); PLATELET COUNT 378 10^3/uL (130-400); RED CELL DISTRIBUTION WIDTH 16.4 % (10.0-14.5); WHITE BLOOD COUNT 19.9 10^3/uL (4.3-11.0)
[2018-07-05] MEDS ORDERED: RT-ALBUTEROL SULF 2.5 MG/3 ML PRE-MIX VIAL ONE (12:40)
[2018-07-05] MEDS ORDERED: RT-SODIUM CHL INHALATION 3 ML VIAL ONE (12:40)
[2018-07-05 12:46] LABS: ABG BASE EXCESS 6.2 MMOL/L (-2.5-2.5); ABG OXYGEN SATURATION 95 % (94-100); ABG PCO2 55 MMHG (35-45); ABG PH 7.37 (7.37-7.43); ABG PO2 72 MMHG (79-93); ABG TCO2 33.1 MMOL/L (21.0-31.0); ALLENS TEST POSITIVE; INSPIRED O2 3 L; PATIENT TEMP 98; VENTILATOR NO
[2018-07-05 12:50] LABS: ALANINE AMINOTRANSFERASE 18 U/L (0-55); ALBUMIN 3.9 GM/DL (3.2-4.5); ALKALINE PHOSPHATASE 115 U/L (40-136); BILIRUBIN,TOTAL 0.4 MG/DL (0.1-1.0); BUN/CREATININE RATIO 15; CALCIUM 9.9 MG/DL (8.5-10.1); CARBON DIOXIDE 29 MMOL/L (21-32); CHLORIDE 101 MMOL/L (98-107); CREATININE SERUM 0.91 MG/DL (0.60-1.30); GFR ESTIMATED > 60; GLUCOSE 112 MG/DL (70-105); POTASSIUM 4.2 MMOL/L (3.6-5.0); SODIUM 143 MMOL/L (135-145); TOTAL PROTEIN 7.4 GM/DL (6.4-8.2)
[2018-07-05] MEDS ORDERED: RT-ALBUTEROL SULF 2.5 MG/3 ML PRE-MIX VIAL INH ONE (12:50)
[2018-07-05] MEDS ORDERED: RT-SODIUM CHL INHALATION 3 ML VIAL IH ONE (13:00)
[2018-07-05 13:12] LABS: BILIRUBIN,URINE NEGATIVE (NEGATIVE); CLARITY,URINE CLEAR; COLOR,URINE YELLOW; GLUCOSE, URINE (UA) NEGATIVE (NEGATIVE); KETONES,URINE NEGATIVE (NEGATIVE); LEUKOCYTE ESTERASE ,URINE 1+ (NEGATIVE); NITRITE,URINE NEGATIVE (NEGATIVE); PH,URINE 6 (5-9); PROTEIN,URINE 2+ (NEGATIVE); UROBILINOGEN,URINE NORMAL (NORMAL)
[2018-07-05 13:25] LABS: AMORPHOUS SEDIMENT,UR MOD AMOR URATES /LPF; BACTERIA,URINE TRACE /HPF
[2018-07-05] MEDS ORDERED: PIPERACILLIN SODIUM/TAZOBACTAM 4.5 GM in NS (IVPB) 100 ML IV ONE (13:30)
[2018-07-05 13:43] LABS: BAND NEUTROPHILS 7 %; BASOPHILS % (MANUAL) 0 %; EOSINOPHILS % (MANUAL) 0 %; LYMPHOCYTES % (MANUAL) 11 %; MONOCYTES % (MANUAL) 10 %; NEUTROPHILS % (MANUAL) 72 %; RBC MORPH NORMAL; TOXIC GRANULATION/VACUOLAZATIO 1+
[2018-07-05 13:47] LABS: PROTHROMBIN TIME PATIENT 12.9 SEC (12.2-14.7)
--- NOTE | 2018-07-05 14:53 | Diagnostic Imaging Report ---
INDICATION: Fall and chest pain. TIME OF EXAM: 01:49 p.m. COMPARISON: Comparison is made with prior chest from 05/28/2018. FINDINGS: Heart size is stable. There appear to be some interstitial infiltrates in the right upper lobe as well as in the left perihilar region, increased since prior exam. No effusion or pneumothorax is seen. IMPRESSION: Worsening bilateral pulmonary infiltrates suggestive of pneumonia when compared with exam from 05/28/2018. Dictated by: Dictated on workstation # [id number]
--- NOTE | 2018-07-05 14:53 | Diagnostic Imaging Report ---
INDICATION: Fall with left leg pain AP and lateral views of the left tibia and fibula are performed. No fracture or acute bony abnormality is seen. IMPRESSION: Negative left tibia and fibula. Dictated by: Dictated on workstation # [id number]
--- NOTE | 2018-07-05 14:54 | Diagnostic Imaging Report ---
INDICATION: Fall with left elbow pain. TIME OF EXAM: 2:29 p.m. FINDINGS: Three views of the left elbow demonstrate normal alignment. The joint spaces are well maintained. No fracture, dislocation, or effusion is seen. IMPRESSION: No acute bony abnormality is detected. Dictated by: Dictated on workstation # [id number]
--- NOTE | 2018-07-05 14:54 | Diagnostic Imaging Report ---
INDICATION: Fall with left arm pain. Time of exam 2:04 PM 2 views of the left humerus demonstrate normal alignment at the shoulder and elbow. The humerus is intact. No fractures are seen. IMPRESSION: No acute bony abnormality is detected. Dictated by: Dictated on workstation # [id number]
--- NOTE | 2018-07-05 14:55 | Diagnostic Imaging Report ---
INDICATION: Fall with left leg pain. TIME OF EXAMINATION: 02:08 p.m. FINDINGS: Frontal and lateral views of the left femur were obtained. Alignment at the hip and knee appears normal. No fracture or dislocation is identified. Patellofemoral degenerative changes are seen. IMPRESSION: No acute bony abnormality is detected. Dictated by: Dictated on workstation # [id number]
--- NOTE | 2018-07-05 14:56 | Diagnostic Imaging Report ---
INDICATION: Fall with left knee pain. TIME OF EXAM: 2:09 p.m. FINDINGS: Frontal and lateral views of the left knee were obtained. Patellofemoral degenerative change with joint space narrowing and spurring is present. There is some spurring involving the lateral compartment of the knee, but the medial and lateral compartments are well maintained. No fracture, dislocation, or effusion is seen. IMPRESSION: Degenerative changes. No acute bony abnormality is detected. Dictated by: Dictated on workstation # [id number]
--- NOTE | 2018-07-05 14:56 | Diagnostic Imaging Report ---
INDICATION: Fall with left shoulder pain. AP, oblique, and trans-scapular views of the left shoulder are obtained. There is prominent degenerative change of the glenohumeral joint with joint space narrowing, subchondral sclerosis, and geode formation. AC joint appears intact. There is no acute fracture or dislocation. IMPRESSION: Advanced degenerative change of the glenohumeral joint. No acute fracture or dislocation. Dictated by: Dictated on workstation # [id number]
[2018-07-05] MEDS ORDERED: fentaNYL INJECTION 100 MCG/2 ML AMP IVP ONE (15:30)
--- NOTE | 2018-07-05 16:52 | NUR ---
PT ADMITTED TO ICU11 VIA BED W/ STAFF AND PERSONAL BELONGINGS. PT PLACED ON MONITORS AND ORIENTED TO SURROUNDINGS. NO QUESTIONS/CONCERNS VOICED.
--- NOTE | 2018-07-05 17:14 | NUR ---
CR 0.91; CR CL > 80; WT 102 KG; VANCO 1750 MG IV BOLUS, THEN 1250 MG IV Q12H; TROUGH AFTER 3RD DOSE
[2018-07-05] MEDS ORDERED: ONDANSETRON 4 MG/2 ML (SDV) Z0FRAN IV PRN (17:15)
[2018-07-05] MEDS: 1/2 NS W/KCL 20 MEQ/L 1,000 ML IV SCH ×2 (17:20→22:53)
[2018-07-05] MEDS ORDERED: VANCOMYCIN 1,750 MG/NS 500 ML IVPB IV NR ×2 (17:30)
[2018-07-05] MEDS: HYDROcodone/APAP 10 MG/325 MG (LORTAB) TAB PO PRN (20:09)
[2018-07-05] MEDS: ACETAMINOPHEN 325 MG TABLET PO PRN (20:09)
[2018-07-05] MEDS ORDERED: RT-ALBUTEROL/IPRATROPIUM 3 ML (DUONEB) VIAL INH PRN (20:30)
[2018-07-05] MEDS: RT-ALBUTEROL/IPRATROPIUM 3 ML (DUONEB) VIAL INH SCH (21:29)
--- NOTE | 2018-07-05 21:31 | NUR ---
This RN called EICU at 2047 due to HR in 140's and BP 183/97. New orders received at 2130
[2018-07-05] MEDS ORDERED: meTOprolol 5 MG/5 ML (LOPRESSOR) VIAL IV ONE (22:00)
[2018-07-05] MEDS ORDERED: KETOROLAC 30 MG/ML VIAL IVP ONE (22:00)
[2018-07-05] MEDS: PIPERACILLIN/TAZO 4.5 GM/NS 100 ML IV SCH ×2 (22:26)
[2018-07-05] MEDS: PANTOPRAZOLE 40 MG (PROTONIX) TAB PO SCH (22:53)
[2018-07-06] VITALS (29 sets, daily range): BP systolic 111–167; BP diastolic 65–137
[2018-07-06] MEDS: 1/2 NS W/KCL 20 MEQ/L 1,000 ML IV SCH ×5 (01:10→22:26)
[2018-07-06] MEDS: RT-ALBUTEROL/IPRATROPIUM 3 ML (DUONEB) VIAL INH SCH ×6 (01:24→21:37)
[2018-07-06 04:21] LABS: BASOPHILS # (AUTO) 0.1 10^3/uL (0.0-0.1); BASOPHILS % (AUTO) 0 % (0-10); EOSINOPHILS # (AUTO) 0.4 10^3/uL (0.0-0.3); EOSINOPHILS % (AUTO) 3 % (0-10); HEMATOCRIT 35 % (35-52); LYMPHOCYTES % (AUTO) 25 % (12-44); MEAN CORPUSCULAR HEMOGLOBIN 29 PG (25-34); MEAN CORPUSCULAR HGB CONC 32 G/DL (32-36); MEAN CORPUSCULAR VOLUME 93 FL (80-99); MEAN PLATELET VOLUME 10.2 FL (7.4-10.4); MONOCYTES # (AUTO) 1.8 X 10^3 (0.0-1.0); MONOCYTES % (AUTO) 11 % (0-12); NEUTROPHILS # (AUTO) 9.7 X 10^3 (1.8-7.8); NEUTROPHILS % (AUTO) 61 % (42-75); PLATELET COUNT 356 10^3/uL (130-400); RED CELL DISTRIBUTION WIDTH 16.9 % (10.0-14.5); WHITE BLOOD COUNT 15.9 10^3/uL (4.3-11.0)
[2018-07-06 04:42] LABS: ALANINE AMINOTRANSFERASE 16 U/L (0-55); ALKALINE PHOSPHATASE 89 U/L (40-136); BILIRUBIN,TOTAL 0.3 MG/DL (0.1-1.0); BUN/CREATININE RATIO 13; CALCIUM 8.4 MG/DL (8.5-10.1); CARBON DIOXIDE 26 MMOL/L (21-32); CHLORIDE 108 MMOL/L (98-107); CREATININE SERUM 0.83 MG/DL (0.60-1.30); GFR ESTIMATED > 60; GLUCOSE 106 MG/DL (70-105); MAGNESIUM 1.9 MG/DL (1.8-2.4); PHOSPHORUS 3.8 MG/DL (2.3-4.7); POTASSIUM 3.8 MMOL/L (3.6-5.0); SODIUM 144 MMOL/L (135-145); TOTAL PROTEIN 5.6 GM/DL (6.4-8.2)
[2018-07-06] MEDS: VANCOMYCIN 1250 MG/NS 250 ML IVPB IV SCH ×4 (05:08→18:45)
[2018-07-06] MEDS: PIPERACILLIN/TAZO 4.5 GM/NS 100 ML IV SCH ×6 (06:30→20:45)
--- NOTE | 2018-07-06 06:42 | Pulmonary Consultation ---
History of Present Illness History of Present Illness Date of Consultation 07/06/18 06:36 Time Seen by Provider: 06:36 Date of Admission History of Present Illness 58yo with hx of severe oxygen dependent COPD and recent hospitalization for pneumonia and recent discharge from [facility] presented to ED via EMS s/p fall without loss of consciousness and did not hit her head. Allergies and Home Medications Allergies Coded Allergies: clindamycin (Unverified Allergy, Mild, HIVES, 11/21/09) meperidine (Unverified Allergy, Mild, HAS RECEIVED FENTANYL IN THE PAST, ) morphine (Unverified Allergy, Mild, 11/21/09) codeine (Verified Adverse Reaction, Unknown, NAUSEA, 11/21/09) Home Medications Albuterol Sulfate 1 Puff Puff, 2 PUFF IH QID, (Reported) 1 PUFF = 90 MCG Atorvastatin Calcium 10 Mg Tablet, 10 MG PO HS, (Reported) Cetirizine HCl 10 Mg Tablet, 10 MG PO DAILY, (Reported) Cholecalciferol (Vitamin D3) 2,000 Unit Capsule, 2,000 UNIT PO DAILY, (Reported) Cyanocobalamin (Vitamin B-12) 500 Mcg Tablet, 1,000 MCG PO DAILY, (Reported) Cyclobenzaprine HCl 10 Mg Tablet, 10 MG PO TID, (Reported) Donepezil HCl 10 Mg Tablet, 10 MG PO DAILY, (Reported) Famotidine 20 Mg Tablet, 20 MG PO DAILY, (Reported) Fluconazole 100 Mg Tablet, 100 MG PO DAILY Prescribed by: JOCELYNE MEI on 07/24/18 0926 Fluticasone/Salmeterol 12 Gm Hfa.aer.ad, 1 PUFF IH BID, (Reported) Hydrocodone/Acetaminophen 1 Each Tablet, 1 EACH PO TID PRN for PAIN-MODERATE, ( Reported) Meloxicam 15 Mg Tablet, 15 MG PO DAILY, (Reported) Metoprolol Succinate 100 Mg Tab.er.24h, 100 MG PO DAILY, (Reported) Multivitamin 1 Each Tablet, 1 EACH PO DAILY, (Reported) Olanzapine 20 Mg Tablet, 40 MG PO HS, (Reported) Ondansetron 8 Mg Tab.rapdis, 8 MG PO Q6H PRN for NAUSEA/VOMITING-1ST LINE, ( Reported) Pantoprazole Sodium 40 Mg Tablet.dr, 40 MG PO BID, (Reported) Sucralfate 1 Gm Tablet, 1 GM PO TID, (Reported) Past Mxxfzpy-Sgtwkf-Iellxz Hx Patient Social History Alcohol Use: Denies Use Recreational Drug Use: No Smoking Status: Former Smoker Type Used: Cigarettes 2nd Hand Smoke Exposure: Yes Recent Foreign Travel: No Contact w/Someone Who Travel: No Recent Infectious Disease Expo: No Recent Hopitalizations: Yes Physical Abuse: No Sexual Abuse: No Immunizations Up To Date Tetanus Booster (TDap): Unknown PED Vaccines UTD: No Date of Pneumonia Vaccine: Mar 11, 2011 Date of Influenza Vaccine: Feb 22, 2018 Seasonal Allergies Seasonal Allergies: No Past Medical History Surgeries: Yes (PILONIDAL CYST, segmoid Colectomy 09/29/09, BOWEL RESECTION, COLOSTOMY ) Appendectomy, Bowel Surgery, Breast, Section, Hysterectomy, Oophorectomy, Tracheostomy Respiratory: Yes Chronic Bronchitis, COPD Currently Using CPAP: No Currently Using BIPAP: No Cardiac: Yes (SVT) Chronic Edema/Swelling, Coronary Artery Disease, High Cholesterol, Hypertension Neurological: Yes Headaches /Migraines Reproductive Disorders: Yes (RIGHT BREAST BENING LUMP-REMOVED) Female Reproductive Disorders: Denies Sexually Transmitted Disease: No HIV/AIDS: No Genitourinary: No Gastrointestinal: Yes Gastroesophageal Reflux, Hiatal Hernia, Ulcer Musculoskeletal: Yes (CHRONIC GENERALIZED PAIN ) Arthritis Endocrine: Yes Hypothyroidsim, Lupus HEENT: No Loss of Vision: Denies Hearing Impairment: Denies Cancer: No Psychosocial: Yes Anxiety, Bipolar, Personality Disorder, Depression Integumentary: Yes Psoriasis Blood Disorders: Yes (ANEMIA POST OP) Family Medical History Arthritis 19 FATHER 19 MOTHER Cardiovascular disease 19 FATHER Cataracts 19 MOTHER Completed stroke 19 MOTHER Dysphasia 19 FATHER FH: cirrhosis 19 MOTHER Glaucoma 19 MOTHER Hypercholesterolemia 19 FATHER Hypertension 19 FATHER 19 MOTHER Myocardial infarction 19 FATHER Osteoporosis 19 MOTHER No Family History of: AIDS Abdominal aortic aneurysm Shelby's disease Alcoholism Alzheimer's disease Aphasia Asthma Cancer of mouth Colon cancer Congenital disease Congenital heart disease Coronary thrombosis Cystic fibrosis Deafness or hearing loss Dementia Diabetes mellitus Drug abuse Fibrocystic disease of breast Gastroenteritis Headache disorder Infertility Kidney disease Neoplasm Not obtainable due to adoption Parkinson's disease Prostate cancer Psychosocial problem Respiratory disorder Seizure disorder Severe allergy Thyroid disease Tuberculosis Visual disorder GI Disease Review of Systems Time Seen by Provider: 09:43 Sepsis Event Evaluation Height, Weight, BMI Height: 5'7.00" Weight: 255lbs. 2.0oz. 115.172535ra; 37.0 BMI Method:Stated Exam Exam Vital Signs Date Time Temp Pulse Resp B/P (MAP) Pulse Ox O2 Delivery O2 Flow Rate FiO2 07/06/18 06:17 160/94 (116) 07/06/18 06:00 112 21 156/108 (124) 94 Vapotherm 40.00 25.00 07/06/18 05:00 105 16 149/88 (108) 94 Vapotherm 40.00 25.00 07/06/18 04:00 105 16 147/81 (103) 95 Vapotherm 40.00 25.00 07/06/18 04:00 98.0 07/06/18 04:00 Vapotherm 07/06/18 03:00 101 19 125/81 (96) 95 Vapotherm 40.00 25.00 07/06/18 02:00 99 139/73 (95) 93 Vapotherm 40.00 25.00 07/06/18 01:24 93 Vapotherm 25.00 40 07/06/18 01:13 97.7 07/06/18 01:00 105 22 128/92 (104) 95 Vapotherm 40.00 25.00 07/06/18 01:00 100 07/06/18 00:00 Vapotherm 07/06/18 00:00 104 21 137/82 (100) 94 Vapotherm 40.00 25.00 07/05/18 23:32 99.0 07/05/18 23:00 110 21 167/91 (116) 97 Vapotherm 40.00 25.00 07/05/18 22:41 99.6 07/05/18 22:00 134 25 178/92 (120) 94 Vapotherm 40.00 25.00 07/05/18 21:29 93 Vapotherm 25.00 40 07/05/18 21:00 130 25 160/88 (112) 94 Vapotherm 40.00 25.00 07/05/18 20:00 141 23 183/97 (125) 93 Vapotherm 40.00 25.00 07/05/18 20:00 Vapotherm 07/05/18 19:52 101.1 07/05/18 19:45 142 93 40 07/05/18 19:00 146 07/05/18 19:00 138 22 153/74 (100) 96 Vapotherm 40.00 25.00 07/05/18 18:00 144 29 124/97 (106) 96 Vapotherm 40.00 25.00 07/05/18 17:45 135 39 151/98 (115) 95 Vapotherm 40.00 25.00 07/05/18 17:30 137 24 173/86 (115) 95 Vapotherm 40.00 25.00 07/05/18 17:15 137 35 169/132 (144) 95 Vapotherm 40.00 25.00 07/05/18 17:09 140 07/05/18 16:55 100.2 153 38 139/89 (106) 96 Nasal Cannula 3.00 07/05/18 16:52 99.0 134 15 144/109 (121) 95 Vapotherm 40.00 25.00 07/05/18 16:52 Vapotherm 25.00 40 07/05/18 13:00 96 07/05/18 12:50 96 Nasal Cannula 3.00 07/05/18 12:10 97 Nasal Cannula 3.00 07/05/18 12:00 100.2 153 38 139/89 (106) 93 I & O 07/06/18 07:00 Intake Total 6470.0 ml Output Total 1900 ml Balance 4570.0 ml Height & Weight Height: 5'7.00" Weight: 255lbs. 2.0oz. 115.411978wi; 37.0 BMI Method:Stated General Appearance: Anxious, Chronically ill, Moderate Distress, Obese HEENT: PERRL/EOMI, Normal ENT Inspection, Pharynx Normal Neck: Full Range of Motion, Normal Inspection, Non Tender, Supple Respiratory: Accessory Muscle Use, Crackles, Decreased Breath Sounds, Respiratory Distress Cardiovascular: Regular Rate, Rhythm, No Edema, No Gallop, Normal Peripheral Pulses Capillary Refill: Less Than 3 Seconds Peripheral Pulses: 2+ Dorsalis Pedis (R), 2+ Left Dors-Pedis (L), 2+ Radial Pulses (R), 2+ Radial Pulses (L) Gastrointestinal: normal bowel sounds, non tender, soft Extremity: Normal Capillary Refill, Normal Inspection, Normal Range of Motion Neurologic/Psychiatric: Alert, Oriented x3 Skin: Normal Color, Warm/Dry Lymphatic: No Adenopathy Results Lab Laboratory Tests 07/05/18 12:27 07/06/18 03:50 Assessment/Plan Assessment/Plan S/p fall Acute on chronic respiratory failure -Check ABG -Hx of tracheostomy and ARDS -Pt would benefit from home vent to mask -Noninvasive ventilation PRN and QHS Bilateral pneumonia -Continue Vanco, and Zosyn -PT may need bronchoscopy if she continues to have pulmonary infiltrates/PNA -IVF -lawson cultures pending Severe oxygen dependent COPD with AE -SVNS -Oxygen - high flow via Vapotherm -Solumedrol HTN with tachycardia -Restart Toprol dementia vs ICU psychosis -Start Risperdal 0.5mg BID and PRN Haldol Depression CAD Morbid obesity HX of bipolar/anxiety Critical Care: Critically Ill Patient MERCEDES GARZA DO Jul 06, 2018 06:42
[2018-07-06] MEDS: HYDROcodone/APAP 10 MG/325 MG (LORTAB) TAB PO PRN (07:30)
[2018-07-06] MEDS: PANTOPRAZOLE 40 MG (PROTONIX) TAB PO SCH ×3 (08:45→20:22)
[2018-07-06] MEDS: risperiDONE 0.25 MG (RisperDAL) TAB PO SCH ×2 (08:45→20:22)
[2018-07-06] MEDS: meTOprolol SUCCINATE 100 MG (TOPROL XL) TAB PO SCH (08:46)
--- NOTE | 2018-07-06 09:29 | Diagnostic Imaging Report ---
EXAMINATION: Chest radiograph, portable AP view. DATE: July 06, 2012 at 0901 hours. INDICATION: 58-year-old female, respiratory failure. Followup pneumonia. COMPARISON: July 05, 2018 FINDINGS: There is airspace consolidation in the right upper lobe which has increased since comparison exam. Streaky opacities in the left midlung and left lung base are grossly unchanged. Streaky opacities in the right midlung are unchanged. There is increased streaky opacity within the medial aspect of the right lung base. There is no sizable pleural effusion. There is no identified pneumothorax. IMPRESSION: 1. Interval nonspecific airspace consolidation in the right upper lobe and right medial lung base which may relate to infiltrate and/or atelectasis. 2. Stable streaky opacities in the left and right midlung and left lung base. Dictated by: Dictated on workstation # [id number]
[2018-07-06] MEDS ORDERED: DONE10TA41 PO (10:52)
--- NOTE | 2018-07-06 10:53 | NUR ---
SPOKE TO PATIENT SHE STATED SHE DID NOT KNOW WHAT MEDICATIONS SHE TOOK BUT SHE FILLS AT [facility]. I CALLED [facility] ONLY THING THEY HAVE RECENTLY FILLED WAS THE DONEPEZIL 1OMG DAILY. I CALLED [facility], [facility], AND [facility]. SHE HAS NOT FILLED ANYTHING FOR A LONG TIME AT THESE PHARMACIES.
[2018-07-06] MEDS ORDERED: FLUT12AE4 IH (12:07)
[2018-07-06] MEDS ORDERED: ENOX40DI8 SQ (12:08)
[2018-07-06] MEDS ORDERED: SUCR1TAB PO (12:08)
[2018-07-06] MEDS ORDERED: METO-395 PO (12:09)
[2018-07-06] MEDS ORDERED: CYCL10TA9 PO (12:10)
[2018-07-06] MEDS ORDERED: HYDR-3820 PO (12:10)
[2018-07-06] MEDS ORDERED: PANT40TA2 PO (12:10)
[2018-07-06] MEDS ORDERED: OLAN20TA16 PO (12:11)
[2018-07-06] MEDS ORDERED: ATOR10TA66 PO (12:11)
[2018-07-06] MEDS ORDERED: CETI10TA17 PO (12:12)
[2018-07-06] MEDS ORDERED: MELO15TA39 PO (12:12)
[2018-07-06] MEDS ORDERED: MULT-974 PO (12:13)
[2018-07-06] MEDS ORDERED: CYAN500T44 PO (12:13)
[2018-07-06] MEDS ORDERED: CHOL20002 PO (12:14)
[2018-07-06] MEDS ORDERED: FAMO20TA3 PO (12:14)
[2018-07-06] MEDS ORDERED: RT-ALBUINH IH (12:15)
[2018-07-06] MEDS ORDERED: ONDA8TAB13 PO (12:15)
--- NOTE | 2018-07-06 12:16 | NUR ---
RN CALLED AND STATED PATIENT WAS DISCHARGED A COUPLE DAYS AGO FROM [facility]. CALLED COULD NOT GET A LIST BECAUSE THEY STATED IT WAS LOCKED IN THE OFFICE TILL SUNDAY. RN FOUND MEDICATIONS IN ROOM WITH PATIENT. WENT BACK AND DID THE MEDICATION HISTORY. CETIRIZINE, MULTI VITAMIN, B-12, AND VITAMIN D3 WERE ALL IN LITTLE PACKAGES WITH MEDICATION AND HOW TAKEN HAND WRITTEN.
--- NOTE | 2018-07-06 12:27 | History & Physical-Hospitalist ---
History of Present Illness HPI/Chief Complaint CC: Respiratory insufficiency with bilateral pneumonia HPI: This is a 58-year-old white female known to me from just recent discharge from inpatient rehab directly to the retirement after 1 month of inpatient rehab in [address] [facility] for acute on chronic respiratory failure requiring trach and PEG tube both discontinued while inpatient rehab stay who presented to the ER only 2 days after she moved into her own apartment and [place] and began feeling ill and had a fall with increased oxygen requirements and was found to have bilateral pneumonia with respiratory insufficiency. She has been placed in the ICU and Dr. Berman has been consulted. She is at high risk for reintubation. I have restarted most of her home medications including her emotional problem regimen and she reports she is not in any pain but feeling better. Source: patient, RN/MD Exam Limitations: no limitations Date Seen 07/06/18 Time Seen by a Provider: 11:30 Attending Physician Rosalind Collier DO PCP Garrett Ward DO Referring Physician Date of Admission Jul 05, 2018 at 15:40 Home Medications & Allergies Home Medications Reviewed patient Home Medication Reconciliation performed by pharmacy medication reconciliations electromyographic technician and/or nursing. Patients Allergies have been reviewed. Allergies Allergies Coded Allergies clindamycin (Unverified Allergy, Mild, HIVES, 11/21/09) meperidine (Unverified Allergy, Mild, HAS RECEIVED FENTANYL IN THE PAST, ) morphine (Unverified Allergy, Mild, 11/21/09) codeine (Verified Adverse Reaction, Unknown, NAUSEA, 11/21/09) Past Gvwmteg-Rokizl-Mvoqlv Hx Past Med/Social Hx: Reviewed Nursing Past Med/Soc Hx, Reviewed and Corrections made Patient Social History Marrital Status: single Employed/Student: unemployed Alcohol Use: Denies Use Recreational Drug Use: No Smoking Status: Former Smoker Type Used: Cigarettes 2nd Hand Smoke Exposure: Yes Physical Abuse Screen: No ( A CHILD) Sexual Abuse: No ( A CHILD) Recent Foreign Travel: No Contact w/other who traveled: No Recent Hopitalizations: Yes Recent Infectious Disease Expo: No Immunizations Up To Date Tetanus Booster (TDap): Unknown Pediatric: No Date of Pneumonia Vaccine: Mar 11, 2011 Date of Influenza Vaccine: Feb 22, 2018 Seasonal Allergies Seasonal Allergies: No Past Medical History Surgeries: Appendectomy, Bowel Surgery, Breast, Section, Hysterectomy , Oophorectomy, Tracheostomy Respiratory: COPD, Pneumonia Currently Using CPAP: No Currently Using BIPAP: No Cardiac: Chronic Edema/Swelling, Coronary Artery Disease, High Cholesterol, Hypertension Neurological: Headaches /Migraines Reproductive: Yes (RIGHT BREAST BENING LUMP-REMOVED) Sexually Transmitted Disease: No HIV/AIDS: No Female Reproductive Disorders: Denies Gastrointestinal: Gastroesophageal Reflux, Hiatal Hernia, Ulcer Musculoskeletal: Arthritis Endocrine: Hypothyroidsim, Lupus Loss of Vision: Denies Hearing Impairment: Denies Psychosocial: Anxiety, Bipolar, Personality Disorder, Depression Skin/Integumentary: Psoriasis History of Blood Disorders: Yes (ANEMIA POST OP) Family History Arthritis 19 FATHER 19 MOTHER Cardiovascular disease 19 FATHER Cataracts 19 MOTHER Completed stroke 19 MOTHER Dysphasia 19 FATHER FH: cirrhosis 19 MOTHER Glaucoma 19 MOTHER Hypercholesterolemia 19 FATHER Hypertension 19 FATHER 19 MOTHER Myocardial infarction 19 FATHER Osteoporosis 19 MOTHER No Family History of: AIDS Abdominal aortic aneurysm Kaiden's disease Alcoholism Alzheimer's disease Aphasia Asthma Cancer of mouth Colon cancer Congenital disease Congenital heart disease Coronary thrombosis Cystic fibrosis Deafness or hearing loss Dementia Diabetes mellitus Drug abuse Fibrocystic disease of breast Gastroenteritis Headache disorder Infertility Kidney disease Neoplasm Not obtainable due to adoption Parkinson's disease Prostate cancer Psychosocial problem Respiratory disorder Seizure disorder Severe allergy Thyroid disease Tuberculosis Visual disorder GI Disease Review of Systems Constitutional: see HPI, fever EENTM: no symptoms reported Respiratory: cough, dyspnea on exertion, orthopnea, short of breath, wheezing Cardiovascular: no symptoms reported Gastrointestinal: nausea Genitourinary: no symptoms reported Musculoskeletal: no symptoms reported Skin: no symptoms reported Psychiatric/Neurological: Anxiety, Depressed, Emotional Problems All Other Systems Reviewed Negative Unless Noted: Yes Physical Exam Physical Exam Vital Signs Vital Signs - First Documented 07/05/18 07/05/18 07/05/18 12:00 12:10 16:52 Temp 100.2 Pulse 153 Resp 38 B/P (MAP) 139/89 (106) Pulse Ox 93 O2 Delivery Nasal Cannula O2 Flow Rate 3.00 FiO2 40 Capillary Refill : Less Than 3 Seconds Height, Weight, BMI Height: 5'7.00" Weight: 255lbs. 2.0oz. 115.758482vl; 37.0 BMI Method:Stated General Appearance: WD/WN, Chronically ill, Mild Distress, Obese Eyes: Bilateral Eye Normal Inspection, Bilateral Eye PERRL HEENT: PERRL/EOMI, Normal ENT Inspection, Pharynx Normal Neck: Full Range of Motion, Normal Inspection, Non Tender, Supple, Carotid Bruit Respiratory: Chest Non Tender, No Respiratory Distress, Accessory Muscle Use, Crackles, Rales, Respiratory Distress, Wheezing Cardiovascular: Regular Rate, Rhythm, No Edema, No Gallop, No JVD, No Murmur, Normal Peripheral Pulses Gastrointestinal: Normal Bowel Sounds, No Organomegaly, No Pulsatile Mass, Non Tender, Soft Back: Normal Inspection, No CVA Tenderness, No Vertebral Tenderness Extremity: Normal Capillary Refill, Normal Inspection, Normal Range of Motion, Non Tender, No Calf Tenderness, No Pedal Edema Neurologic/Psychiatric: Alert, Oriented x3, No Motor/Sensory Deficits, Depressed Affect Skin: Normal Color, Warm/Dry Lymphatic: No Adenopathy Results Results/Procedures Labs Laboratory Tests 07/05/18 12:27 07/06/18 03:50 Patient resulted labs reviewed. Assessment/Plan Admission Diagnosis Assessment: Bilateral pneumonia Fall at home Respiratory insufficiency acute on chronic Severe debility following critical illness and vent dependence just DC from IRF after 1 month of care to retirement for 3 weeks then her own apartment for only 2 days Trach now DC PEG tube now DC Nausea chronic Mental illness precluding fast recovery Current smoker unsure of her status now COPD Status post pneumonia 05/28 Leukocytosis Left leg pain but no fracture on xrays Plan: Monitor closely Vapotherm ICU since at risk for intubation for respiratory failure Disposition home will not be an option Admission Status: Inpatient Order (span 2 midnights) Reason for Inpatient Admission: Severe COPD with pneumonia will require several days of hospital Diagnosis/Problems Diagnosis/Problems (1) Pneumonia Status: Acute Qualifiers: Pneumonia type: due to unspecified organism Laterality: bilateral Lung location: lower lobe of lung Qualified Codes: J18.1 - Lobar pneumonia, unspecified organism (2) Fall Status: Acute Qualifiers: Encounter type: initial encounter Qualified Codes: W19.XXXA - Unspecified fall, initial encounter (3) Acute on chronic respiratory failure with hypoxia and hypercapnia Status: Acute (4) Oxygen dependent Status: Chronic (5) Nausea Status: Chronic (6) Bipolar disorder Status: Chronic Qualifiers: Active/Remission status: currently active Current bipolar episode type: depressed Current episode severity: moderate Qualified Codes: F31.32 - Bipolar disorder, current episode depressed, moderate (7) COPD (chronic obstructive pulmonary disease) Status: Chronic Qualifiers: COPD type: unspecified COPD Qualified Codes: J44.9 - Chronic obstructive pulmonary disease, unspecified (8) Chronic mental illness Status: Chronic (9) Hypertension Status: Chronic Qualifiers: Hypertension type: essential hypertension Qualified Codes: I10 - Essential (primary) hypertension (10) Myopathy Status: Chronic Clinical Quality Measures DVT/VTE Risk/Contraindication: Risk Factor Score Per Nursin RFS Level Per Nursing on Admit: 4+=Very High ROSALIND COLLIER DO Jul 06, 2018 12:27
[2018-07-06] MEDS ORDERED: HYDROcodone/APAP 10 MG/325 MG (LORTAB) TAB PO PRN (12:30)
[2018-07-06] MEDS ORDERED: ONDANSETRON 8 MG (ZOFRAN) ORAL DISSOLVE TAB PO PRN (12:30)
[2018-07-06] MEDS: CYCLOBENZAPRINE 10 MG (FLEXERIL) TAB PO SCH ×2 (14:18→20:22)
[2018-07-06] MEDS: DONEPEZIL 10 MG (ARICEPT) TAB PO SCH (14:18)
[2018-07-06] MEDS: SUCRALFATE 1 GM (CARAFATE) TAB PO SCH ×2 (16:04→20:22)
[2018-07-06] MEDS: ENOXAPARIN 40 MG/0.4 ML (LOVENOX) SYR SC SCH (19:42)
[2018-07-06] MEDS: OLANZapine 5 MG (ZyPREXA) TAB PO SCH (20:23)
[2018-07-06] MEDS: ACETAMINOPHEN 325 MG TABLET PO PRN (20:36)
[2018-07-06] MEDS: RT-ADVAIR HFA 115/21 MCG PER PUFF IH SCH (21:14)
[2018-07-07] VITALS (17 sets, daily range): BP systolic 108–196; BP diastolic 62–99
[2018-07-07] MEDS: RT-ALBUTEROL/IPRATROPIUM 3 ML (DUONEB) VIAL INH SCH ×6 (01:18→21:39)
[2018-07-07] MEDS: HALOPERIDOL 5 MG/ML (HALDOL) AMP IV PRN ×2 (02:05→09:02)
[2018-07-07] MEDS: 1/2 NS W/KCL 20 MEQ/L 1,000 ML IV SCH (03:26)
[2018-07-07] MEDS: fentaNYL INJECTION 100 MCG/2 ML AMP IV PRN (03:45)
[2018-07-07] MEDS: PIPERACILLIN/TAZO 4.5 GM/NS 100 ML IV SCH ×6 (04:47→21:18)
[2018-07-07] MEDS ORDERED: TROUGH ORDER-PHARMACY XX NR (05:00)
--- NOTE | 2018-07-07 05:02 | Pulmonary Progress Note ---
Subjective Time Seen by a Provider: 05:34 Subjective/Events-last exam Pt still on Vapotherm high flow oxygen Sepsis Event Evaluation Height, Weight, BMI Height: 5'7.00" Weight: 255lbs. 2.0oz. 115.835100es; 37.0 BMI Method:Stated Focused Exam Lactate Level 07/05/18 21:53: Lactic Acid Level 0.72 Exam Exam Vital Signs Date Time Temp Pulse Resp B/P (MAP) Pulse Ox O2 Delivery O2 Flow Rate FiO2 07/07/18 04:00 100 18 121/71 (88) 97 NIV Bilevel 50.00 07/07/18 03:26 97 65.00 07/07/18 03:00 98 22 110/62 (78) 99 NIV Bilevel 50.00 07/07/18 02:57 NIV Bilevel 50.00 07/07/18 02:00 101 20 116/64 (81) 99 NIV Bilevel 55.00 07/07/18 01:20 NIV Bilevel 55.00 07/07/18 01:18 100 65.00 07/07/18 01:00 100 07/07/18 01:00 96 22 117/64 (81) 100 NIV Bilevel 65.00 07/07/18 00:00 NIV Bilevel 75 07/07/18 00:00 102 19 128/71 (90) 100 NIV Bilevel 65.00 07/06/18 23:00 99 20 128/70 (89) 98 NIV Bilevel 65.00 07/06/18 22:00 96 18 114/68 (83) 100 NIV Bilevel 65.00 07/06/18 21:39 NIV Bilevel 65.00 07/06/18 21:37 94 75.00 07/06/18 21:00 90 18 136/85 (102) 100 NIV Bilevel 75.00 07/06/18 20:00 NIV Bilevel 75 07/06/18 20:00 92 17 141/85 (103) 100 NIV Bilevel 75.00 07/06/18 19:00 98.3 93 13 156/90 (112) 99 NIV Bilevel 75.00 07/06/18 19:00 94 07/06/18 18:41 90 80.00 07/06/18 18:13 NIV Bilevel 40.00 07/06/18 18:00 92 34 144/97 (113) 92 Vapotherm 40.00 25.00 07/06/18 17:00 92 26 118/83 (95) 96 Vapotherm 40.00 25.00 07/06/18 16:00 92 22 135/71 (92) 96 Vapotherm 40.00 25.00 07/06/18 16:00 97.2 07/06/18 15:20 Vapotherm 25.00 40 07/06/18 15:00 88 25 139/84 (102) 96 Vapotherm 40.00 25.00 07/06/18 14:00 87 27 111/65 (80) 96 Vapotherm 40.00 25.00 07/06/18 13:28 89 07/06/18 13:00 95 23 132/77 (95) 99 Vapotherm 40.00 25.00 07/06/18 12:00 98 8 167/137 (147) 96 Vapotherm 40.00 25.00 07/06/18 11:43 Vapotherm 25.00 40 07/06/18 11:07 97.3 07/06/18 11:00 112 21 145/84 (104) 98 Vapotherm 40.00 25.00 07/06/18 10:00 117 17 130/75 (93) 98 NIV Bilevel 40.00 07/06/18 09:58 116 40.00 07/06/18 09:50 NIV Bilevel 40.00 07/06/18 09:00 126 20 141/90 (107) 87 Vapotherm 40.00 25.00 07/06/18 08:55 Vapotherm 25.00 40 07/06/18 08:00 117 25 136/86 (103) 96 Vapotherm 40.00 25.00 07/06/18 07:38 98.5 07/06/18 07:30 117 20 160/86 (110) 96 Vapotherm 40.00 25.00 07/06/18 07:00 118 28 162/86 (111) 94 Vapotherm 40.00 25.00 07/06/18 06:55 117 07/06/18 06:46 94 Vapotherm 25.00 40 07/06/18 06:17 160/94 (116) 07/06/18 06:00 112 21 156/108 (124) 94 Vapotherm 40.00 25.00 I & O 07/07/18 07:00 Intake Total 4902.5 ml Output Total 1925 ml Balance 2977.5 ml Height & Weight Height: 5'7.00" Weight: 255lbs. 2.0oz. 115.258705ch; 37.0 BMI Method:Stated General Appearance: WD/WN, Chronically ill, Mild Distress, Obese HEENT: PERRL/EOMI, Normal ENT Inspection, Pharynx Normal Neck: Full Range of Motion, Normal Inspection, Non Tender, Supple, Carotid Bruit Respiratory: Chest Non Tender, No Respiratory Distress, Accessory Muscle Use, Crackles, Rales, Respiratory Distress, Wheezing Cardiovascular: Regular Rate, Rhythm, No Edema, No Gallop, No JVD, No Murmur, Normal Peripheral Pulses Capillary Refill: Less Than 3 Seconds Peripheral Pulses: 2+ Dorsalis Pedis (R), 2+ Left Dors-Pedis (L), 2+ Radial Pulses (R), 2+ Radial Pulses (L) Gastrointestinal: normal bowel sounds, non tender, soft Extremity: Normal Capillary Refill, Normal Inspection, Normal Range of Motion, Non Tender, No Calf Tenderness, No Pedal Edema Neurologic/Psychiatric: Alert, No Motor/Sensory Deficits, Depressed Affect Skin: Normal Color, Warm/Dry Lymphatic: No Adenopathy Results Lab Laboratory Tests 07/05/18 12:27 07/06/18 03:50 Assessment/Plan Assessment/Plan S/p fall Acute on chronic respiratory failure -Hx of tracheostomy and ARDS -Pt would benefit from home vent to mask -Noninvasive ventilation PRN and QHS Bilateral pneumonia -Continue Vanco, and Zosyn -PT may need bronchoscopy if she continues to have pulmonary infiltrates/PNA -IVF - hep lock IVF -lawson cultures pending Severe oxygen dependent COPD with AE -SVNS -Oxygen - high flow via Vapotherm -Solumedrol 40 Q6 HTN with tachycardia -Restart Toprol dementia vs ICU psychosis -Risperdal 0.5mg BID and PRN Haldol Depression CAD Morbid obesity HX of bipolar/anxiety MERCEDES GARZA DO Jul 07, 2018 05:01
[2018-07-07 05:13] LABS: BASOPHILS # (AUTO) 0.1 10^3/uL (0.0-0.1); BASOPHILS % (AUTO) 1 % (0-10); EOSINOPHILS # (AUTO) 1.1 10^3/uL (0.0-0.3); EOSINOPHILS % (AUTO) 7 % (0-10); HEMATOCRIT 35 % (35-52); HEMOGLOBIN 10.4 G/DL (11.5-16.0); LYMPHOCYTES % (AUTO) 21 % (12-44); MEAN CORPUSCULAR HEMOGLOBIN 28 PG (25-34); MEAN CORPUSCULAR HGB CONC 30 G/DL (32-36); MEAN CORPUSCULAR VOLUME 96 FL (80-99); MEAN PLATELET VOLUME 10.1 FL (7.4-10.4); MONOCYTES # (AUTO) 1.4 X 10^3 (0.0-1.0); MONOCYTES % (AUTO) 9 % (0-12); NEUTROPHILS # (AUTO) 9.2 X 10^3 (1.8-7.8); NEUTROPHILS % (AUTO) 62 % (42-75); PLATELET COUNT 320 10^3/uL (130-400); RED CELL DISTRIBUTION WIDTH 17.1 % (10.0-14.5); WHITE BLOOD COUNT 14.8 10^3/uL (4.3-11.0)
[2018-07-07 05:31] LABS: ALANINE AMINOTRANSFERASE 17 U/L (0-55); ALBUMIN 2.9 GM/DL (3.2-4.5); ALKALINE PHOSPHATASE 87 U/L (40-136); BILIRUBIN,TOTAL 0.3 MG/DL (0.1-1.0); BUN/CREATININE RATIO 12; CALCIUM 8.6 MG/DL (8.5-10.1); CARBON DIOXIDE 25 MMOL/L (21-32); CHLORIDE 109 MMOL/L (98-107); CREATININE SERUM 0.81 MG/DL (0.60-1.30); GFR ESTIMATED > 60; GLUCOSE 101 MG/DL (70-105); MAGNESIUM 1.7 MG/DL (1.8-2.4); PHOSPHORUS 3.5 MG/DL (2.3-4.7); POTASSIUM 4.8 MMOL/L (3.6-5.0); SODIUM 142 MMOL/L (135-145); TOTAL PROTEIN 5.5 GM/DL (6.4-8.2)
[2018-07-07 05:36] LABS: VANCOMYCIN,TROUGH 22.7 UG/ML (10.0-20.0)
[2018-07-07] MEDS: VANCOMYCIN 1250 MG/NS 250 ML IVPB IV SCH ×2 (05:42)
[2018-07-07] MEDS: MAGNESIUM 1 GM/100 ML IVPB 100 ML IV SCH ×2 (05:46→07:00)
[2018-07-07] MEDS: methylPREDNISolone 40 MG/ML (Solu-MEDROL) VIAL IV SCH ×3 (05:46→18:18)
[2018-07-07] MEDS: RT-ADVAIR HFA 115/21 MCG PER PUFF IH SCH ×2 (06:37→18:52)
[2018-07-07] MEDS ORDERED: meTOprolol SUCCINATE 100 MG (TOPROL XL) TAB PO SCH (09:00)
[2018-07-07] MEDS: risperiDONE 0.25 MG (RisperDAL) TAB PO SCH ×2 (09:01→21:18)
[2018-07-07] MEDS: FAMOTIDINE 20 MG (PEPCID) TABLET PO SCH (09:01)
[2018-07-07] MEDS: PANTOPRAZOLE 40 MG (PROTONIX) TAB PO SCH ×3 (09:01→21:18)
[2018-07-07] MEDS: meTOprolol SUCCINATE 100 MG (TOPROL XL) TAB PO SCH (09:01)
[2018-07-07] MEDS: DONEPEZIL 10 MG (ARICEPT) TAB PO SCH (09:01)
[2018-07-07] MEDS: SUCRALFATE 1 GM (CARAFATE) TAB PO SCH ×3 (09:02→21:18)
[2018-07-07] MEDS: CYCLOBENZAPRINE 10 MG (FLEXERIL) TAB PO SCH ×3 (09:02→21:18)
[2018-07-07] MEDS: ENOXAPARIN 40 MG/0.4 ML (LOVENOX) SYR SC SCH ×2 (09:02→21:18)
[2018-07-07] MEDS: LORATADINE (CLARITIN) 10 MG TAB PO SCH (09:02)
--- NOTE | 2018-07-07 09:10 | Diagnostic Imaging Report ---
INDICATION: Pneumonia. COMPARISON: 07/06/2018 FINDINGS: Single view of the chest demonstrates persistent but decreased infiltrates in the right hemithorax and left base. The heart remains enlarged. There is no pneumothorax, effusion or pulmonary edema. Osseous structures are stable. IMPRESSION: Persistent but decreasing bilateral pulmonary infiltrates. Dictated by: Dictated on workstation # [id number]
--- NOTE | 2018-07-07 09:28 | NUR ---
report taken from FELICITY Duran at this time. This RN will assume care of this patient throughout the remainder of this shift.
--- NOTE | 2018-07-07 10:00 | NUR ---
patient to floor at this time via cart accompanied by FELICITY Duran and RT staff. This RN will assume care of this patient at this time. This RN also agrees with the previous RN physical assessment and will cont to monitor this patient.
--- NOTE | 2018-07-07 10:00 | NUR ---
REPORT GIVEN TO DANIKA BLEVINS. PT TRANSFERRED VIA BED TO ROOM 431 W/ STAFF AND PERSONAL BELONGINGS. DANIKA BLEVINS TO ASSUME CARE OF PT, NO QUESTIONS/CONCERNS VOICED.
--- NOTE | 2018-07-07 13:07 | Progress Note-Hospitalist ---
Subjective HPI/CC On Admission Date Seen by Provider: Jul 07, 2018 Time Seen by Provider: 12:00 CC: Respiratory insufficiency with bilateral pneumonia HPI: This is a 58-year-old white female known to me from just recent discharge from inpatient rehab directly to the retirement after 1 month of inpatient rehab in 8 weeks at [facility] for acute on chronic respiratory failure requiring trach and PEG tube both discontinued while inpatient rehab stay who presented to the ER only 2 days after she moved into her own apartment and [place] and began feeling ill and had a fall with increased oxygen requirements and was found to have bilateral pneumonia with respiratory insufficiency. She has been placed in the ICU and Dr. Berman has been consulted. She is at high risk for reintubation. I have restarted most of her home medications including her emotional problem regimen and she reports she is not in any pain but feeling better. Subjective/Events-last exam Transferred down to fourth floor Maintain on Vapotherm Overall appears to be improved but her baseline is very debilitated Needs retirement permanently Overall poor prognosis in this acute issues continue she will be a hospice candidate Denies any pain Bowels are moving Review of Systems General: Fatigue Pulmonary: Dyspnea Focused Exam Lactate Level 07/05/18 21:53: Lactic Acid Level 0.72 Objective Exam Vital Signs Vital Signs Date Time Temp Pulse Resp B/P (MAP) Pulse Ox O2 Delivery O2 Flow Rate FiO2 07/07/18 13:27 93 Vapotherm 25.00 40 07/07/18 13:10 94 07/07/18 12:00 97.8 22 148/90 (109) Capillary Refill : Less Than 3 Seconds General Appearance: No Apparent Distress, WD/WN, Chronically ill, Obese Respiratory: Chest Non Tender, No Accessory Muscle Use, No Respiratory Distress , Crackles, Decreased Breath Sounds Cardiovascular: Regular Rate, Rhythm, No Edema, No Gallop, No JVD, No Murmur, Normal Peripheral Pulses Neurologic/Psychiatric: Alert, Oriented x3, No Motor/Sensory Deficits, Depressed Affect Results/Procedures Lab Laboratory Tests 07/07/18 05:00 Patient resulted labs reviewed. Assessment/Plan Assessment and Plan Assess & Plan/Chief Complaint Assessment: Bilateral pneumonia Fall at home Respiratory insufficiency acute on chronic Severe debility following critical illness and vent dependence just DC from IRF after 1 month of care to retirement for 3 weeks then her own apartment for only 2 days s/p Trach now DC last month s/p PEG tube now DC last month Nausea- chronic Mental illness precluding fast recovery Current smoker unsure of her status now COPD Status post pneumonia 05/28 Leukocytosis Left leg pain but no fracture on xrays Plan: Monitor closely Vapotherm Monitor lungs Disposition home will not be an option Critical Care Critical Care: Critically Ill Patient Diagnosis/Problems Diagnosis/Problems (1) Pneumonia Status: Acute Qualifiers: Pneumonia type: due to unspecified organism Laterality: bilateral Lung location: lower lobe of lung Qualified Codes: J18.1 - Lobar pneumonia, unspecified organism (2) Fall Status: Acute Qualifiers: Encounter type: initial encounter Qualified Codes: W19.XXXA - Unspecified fall, initial encounter (3) Acute on chronic respiratory failure with hypoxia and hypercapnia Status: Acute (4) Oxygen dependent Status: Chronic (5) Nausea Status: Chronic (6) Bipolar disorder Status: Chronic Qualifiers: Active/Remission status: currently active Current bipolar episode type: depressed Current episode severity: moderate Qualified Codes: F31.32 - Bipolar disorder, current episode depressed, moderate (7) COPD (chronic obstructive pulmonary disease) Status: Chronic Qualifiers: COPD type: unspecified COPD Qualified Codes: J44.9 - Chronic obstructive pulmonary disease, unspecified (8) Chronic mental illness Status: Chronic (9) Hypertension Status: Chronic Qualifiers: Hypertension type: essential hypertension Qualified Codes: I10 - Essential (primary) hypertension (10) Myopathy Status: Chronic Clinical Quality Measures DVT/VTE Risk/Contraindication: Risk Factor Score Per Nursin RFS Level Per Nursing on Admit: 4+=Very High SAMANTHA COLLIER DO Jul 07, 2018 13:07
[2018-07-07] MEDS: HYDROcodone/APAP 10 MG/325 MG (LORTAB) TAB PO PRN ×2 (16:27→21:17)
[2018-07-07] MEDS: VANCOMYCIN 1 GM/NS 250 ML IVPB IV SCH ×2 (18:18)
[2018-07-07] MEDS: OLANZapine 5 MG (ZyPREXA) TAB PO SCH ×2 (21:19→22:00)
--- NOTE | 2018-07-07 22:00 | NUR ---
PT REFUSED FULL 40 MG DOSE OF OLANZAPINE. STATES SHE ONLY TAKES 20 AT HOME AND ONLY WANTED 20MG TONIGHT. THE MEDICATION WAS ALREADY SCANNED AND POPPED OUT OF CONTAINER. MEDICATION WAS WASTED IN OMNICELL AND PT WAS ONLY GIVEN 20MG. NOTE WAS MADE IN EMAR
[2018-07-08] VITALS (7 sets, daily range): BP systolic 156–189; BP diastolic 73–93
[2018-07-08] MEDS: methylPREDNISolone 40 MG/ML (Solu-MEDROL) VIAL IV SCH ×2 (00:38→05:14)
[2018-07-08] MEDS: RT-ALBUTEROL/IPRATROPIUM 3 ML (DUONEB) VIAL INH SCH ×6 (01:05→22:32)
[2018-07-08 05:00] LABS: BASOPHILS % (AUTO) 0 % (0-10); EOSINOPHILS % (AUTO) 0 % (0-10); HEMATOCRIT 37 % (35-52); HEMOGLOBIN 11.4 G/DL (11.5-16.0); LYMPHOCYTES # (AUTO) 2.1 X 10^3 (1.0-4.0); LYMPHOCYTES % (AUTO) 15 % (12-44); MEAN CORPUSCULAR HEMOGLOBIN 29 PG (25-34); MEAN CORPUSCULAR HGB CONC 31 G/DL (32-36); MEAN CORPUSCULAR VOLUME 93 FL (80-99); MEAN PLATELET VOLUME 9.8 FL (7.4-10.4); MONOCYTES # (AUTO) 0.6 X 10^3 (0.0-1.0); MONOCYTES % (AUTO) 4 % (0-12); NEUTROPHILS # (AUTO) 11.5 X 10^3 (1.8-7.8); NEUTROPHILS % (AUTO) 81 % (42-75); PLATELET COUNT 417 10^3/uL (130-400); RED CELL DISTRIBUTION WIDTH 16.6 % (10.0-14.5); WHITE BLOOD COUNT 14.2 10^3/uL (4.3-11.0)
[2018-07-08] MEDS: PIPERACILLIN/TAZO 4.5 GM/NS 100 ML IV SCH ×6 (05:00→20:48)
[2018-07-08] MEDS: VANCOMYCIN 1 GM/NS 250 ML IVPB IV SCH ×2 (05:09)
[2018-07-08 05:23] LABS: ALANINE AMINOTRANSFERASE 18 U/L (0-55); ALBUMIN 3.3 GM/DL (3.2-4.5); ALKALINE PHOSPHATASE 98 U/L (40-136); BILIRUBIN,TOTAL 0.3 MG/DL (0.1-1.0); BUN/CREATININE RATIO 12; CALCIUM 9.2 MG/DL (8.5-10.1); CARBON DIOXIDE 27 MMOL/L (21-32); CHLORIDE 105 MMOL/L (98-107); CREATININE SERUM 0.83 MG/DL (0.60-1.30); GFR ESTIMATED > 60; GLUCOSE 167 MG/DL (70-105); PHOSPHORUS 3.4 MG/DL (2.3-4.7); POTASSIUM 4.5 MMOL/L (3.6-5.0); SODIUM 142 MMOL/L (135-145); TOTAL PROTEIN 6.3 GM/DL (6.4-8.2)
[2018-07-08] MEDS: RT-ADVAIR HFA 115/21 MCG PER PUFF IH SCH ×2 (07:05→19:04)
--- NOTE | 2018-07-08 07:53 | Pulmonary Progress Note ---
YVESADRIENNE STUDENT 07/08/18 0753: Sepsis Event Evaluation Height, Weight, BMI Height: 5'7.00" Weight: 266lbs. 8.0oz. [id number]; 37.0 BMI Method:Stated Focused Exam Lactate Level 07/05/18 21:53: Lactic Acid Level 0.72 Exam Exam Vital Signs Date Time Temp Pulse Resp B/P (MAP) Pulse Ox O2 Delivery O2 Flow Rate FiO2 07/08/18 07:17 Vapotherm 25.00 40 07/08/18 07:05 95 Vapotherm 25.00 40 07/08/18 07:00 72 07/08/18 04:09 98.1 82 22 172/84 (113) 97 Vapotherm 45.00 25.00 07/08/18 01:05 80 18 97 45.00 07/08/18 01:00 88 07/08/18 00:13 98.4 87 26 183/85 (117) 98 Vapotherm 45.00 25.00 07/07/18 21:39 79 27 97 45.00 07/07/18 21:00 Vapotherm 25.00 40 07/07/18 20:00 98.0 98 22 114/88 (97) 92 Vapotherm 45.00 25.00 07/07/18 19:04 Vapotherm 25.00 40 07/07/18 19:00 97 07/07/18 18:52 92 Vapotherm 25.00 40 07/07/18 16:00 97.5 86 20 108/68 (81) 95 Vapotherm 45.00 25.00 07/07/18 13:27 93 Vapotherm 25.00 40 07/07/18 13:10 94 07/07/18 12:00 97.8 99 22 148/90 (109) 97 07/07/18 10:24 94 Vapotherm 25.00 40 07/07/18 10:14 97.3 100 26 () 98 07/07/18 10:00 97.3 100 26 136/96 (109) Vapotherm 07/07/18 09:24 97 07/07/18 09:00 101 18 169/92 (117) 99 Vapotherm 40.00 25.00 07/07/18 08:19 Vapotherm 40.00 25.00 07/07/18 08:15 96 Vapotherm 25.00 40 07/07/18 08:00 103 33 157/99 (118) 99 NIV Bilevel 45.00 07/07/18 07:57 NIV Bilevel 45 07/07/18 07:52 97.6 I & O 07/08/18 07:00 Intake Total 2390 ml Output Total 3900 ml Balance -1510 ml Height & Weight Height: 5'7.00" Weight: 266lbs. 8.0oz. [id number]; 37.0 BMI Method:Stated General Appearance: No Apparent Distress, WD/WN, Chronically ill, Obese HEENT: PERRL/EOMI, Normal ENT Inspection, Pharynx Normal Neck: Full Range of Motion, Normal Inspection, Non Tender, Supple, Carotid Bruit Respiratory: Chest Non Tender, No Accessory Muscle Use, No Respiratory Distress , Crackles, Decreased Breath Sounds Cardiovascular: Regular Rate, Rhythm, No Edema, No Gallop, No JVD, No Murmur, Normal Peripheral Pulses Capillary Refill: Less Than 3 Seconds Peripheral Pulses: 2+ Dorsalis Pedis (R), 2+ Left Dors-Pedis (L), 2+ Radial Pulses (R), 2+ Radial Pulses (L) Gastrointestinal: normal bowel sounds, non tender, soft Extremity: Normal Capillary Refill, Normal Inspection, Normal Range of Motion, Non Tender, No Calf Tenderness, No Pedal Edema Neurologic/Psychiatric: Alert, Oriented x3, No Motor/Sensory Deficits, Depressed Affect Skin: Normal Color, Warm/Dry Lymphatic: No Adenopathy Results Lab Laboratory Tests 07/07/18 05:00 07/08/18 04:50 Assessment/Plan Assessment/Plan S/p fall Acute on chronic respiratory failure -Check ABG -Hx of tracheostomy and ARDS -Pt would benefit from home vent to mask -Noninvasive ventilation PRN and QHS Bilateral pneumonia -Continue Vanco, and Zosyn -PT may need bronchoscopy if she continues to have pulmonary infiltrates/PNA -IVF -lawson cultures preliminary no growth Severe oxygen dependent COPD with AE -SVNS, advair -Oxygen - high flow via Vapotherm -Solumedrol HTN with tachycardia -Restart Toprol dementia vs ICU psychosis -Start Risperdal 0.5mg BID and PRN Haldol Depression CAD Morbid obesity HX of bipolar/anxiety MERCEDES GARZA DO 07/08/18 0910: Subjective Time Seen by a Provider: 09:06 Subjective/Events-last exam pt is still on Vapotherm . Exam Exam General Appearance: No Apparent Distress, WD/WN, Chronically ill, Obese HEENT: PERRL/EOMI, Normal ENT Inspection, Pharynx Normal Neck: Full Range of Motion, Normal Inspection, Non Tender, Supple Respiratory: Chest Non Tender, No Accessory Muscle Use, No Respiratory Distress , Crackles, Decreased Breath Sounds Cardiovascular: Regular Rate, Rhythm, No Edema, No Gallop, No JVD, No Murmur, Normal Peripheral Pulses Capillary Refill: Less Than 3 Seconds Extremity: Normal Capillary Refill, Normal Inspection, Normal Range of Motion, Non Tender, No Calf Tenderness, No Pedal Edema Neurologic/Psychiatric: Alert, Oriented x3, No Motor/Sensory Deficits, Depressed Affect Skin: Normal Color, Warm/Dry Lymphatic: No Adenopathy Assessment/Plan Assessment/Plan S/p fall Acute on chronic respiratory failure -Hx of tracheostomy and ARDS -Pt would benefit from home vent to mask -Noninvasive ventilation PRN and QHS Bilateral pneumonia -Continue Vanco, and Zosyn -PT may need bronchoscopy if she continues to have pulmonary infiltrates/PNA -lawson cultures preliminary no growth -D/C Vanco Severe oxygen dependent COPD with AE -SVNS, advair -Oxygen - high flow via Vapotherm -Solumedrol HTN with tachycardia - Toprol dementia vs ICU psychosis - Risperdal 0.5mg BID and PRN Haldol Depression CAD Morbid obesity HX of bipolar/anxiety KALEN-ADRIENNE HELTON STUDENT Jul 08, 2018 07:53 MERCEDES GARZA DO Jul 08, 2018 09:10
--- NOTE | 2018-07-08 08:00 | Diagnostic Imaging Report ---
Portable erect AP chest at 3:50. Indication: Pneumonia The heart size is stable when compared to 07/07/2018. The alveolar/interstitial infiltrates involving both lungs seen previously are again evident perhaps slightly less. The chronic pulmonary changes evident on the prior exam are no different. No new area of pneumonia or atelectasis has developed and there is still no sign of a significant pleural effusion. Mediastinum is not widened. The osseous structures are intact. Impression: There continues to be slow clearing of the pulmonary infiltrates bilaterally. A followup study would be recommended for continued evaluation. Dictated by: Dictated on workstation # [id number]
[2018-07-08] MEDS: ENOXAPARIN 40 MG/0.4 ML (LOVENOX) SYR SC SCH ×2 (08:06→20:48)
[2018-07-08] MEDS: IBUPROFEN 800 MG (MOTRIN) TAB PO PRN (08:06)
[2018-07-08] MEDS: DONEPEZIL 10 MG (ARICEPT) TAB PO SCH (08:06)
[2018-07-08] MEDS: risperiDONE 0.25 MG (RisperDAL) TAB PO SCH ×2 (08:06→20:48)
[2018-07-08] MEDS: PANTOPRAZOLE 40 MG (PROTONIX) TAB PO SCH ×2 (08:06→20:48)
[2018-07-08] MEDS: CYCLOBENZAPRINE 10 MG (FLEXERIL) TAB PO SCH ×3 (08:07→21:24)
[2018-07-08] MEDS: LORATADINE (CLARITIN) 10 MG TAB PO SCH (08:07)
[2018-07-08] MEDS: SUCRALFATE 1 GM (CARAFATE) TAB PO SCH ×3 (08:07→20:48)
[2018-07-08] MEDS: meTOprolol SUCCINATE 100 MG (TOPROL XL) TAB PO SCH (08:07)
[2018-07-08] MEDS: FAMOTIDINE 20 MG (PEPCID) TABLET PO SCH (08:07)
--- NOTE | 2018-07-08 08:11 | Progress Note (SOAP) ---
Subjective Time Seen by a Provider: 08:08 Subjective/Events-last exam Patient confused this a.m. Patient pulled out IV. Patient thought she was in a cheap motel. Patient on Vapotherm. Lung tests decreased breath sounds with congestion. Focused Exam Lactate Level 07/05/18 21:53: Lactic Acid Level 0.72 Objective Exam Vital Signs Date Time Temp Pulse Resp B/P (MAP) Pulse Ox O2 Delivery O2 Flow Rate FiO2 07/08/18 07:17 Vapotherm 25.00 40 07/08/18 07:05 95 Vapotherm 25.00 40 07/08/18 07:00 72 07/08/18 04:09 98.1 82 22 172/84 (113) 97 Vapotherm 45.00 25.00 07/08/18 01:05 80 18 97 45.00 07/08/18 01:00 88 07/08/18 00:13 98.4 87 26 183/85 (117) 98 Vapotherm 45.00 25.00 07/07/18 21:39 79 27 97 45.00 07/07/18 21:00 Vapotherm 25.00 40 07/07/18 20:00 98.0 98 22 114/88 (97) 92 Vapotherm 45.00 25.00 07/07/18 19:04 Vapotherm 25.00 40 07/07/18 19:00 97 07/07/18 18:52 92 Vapotherm 25.00 40 07/07/18 16:00 97.5 86 20 108/68 (81) 95 Vapotherm 45.00 25.00 07/07/18 13:27 93 Vapotherm 25.00 40 07/07/18 13:10 94 07/07/18 12:00 97.8 99 22 148/90 (109) 97 07/07/18 10:24 94 Vapotherm 25.00 40 07/07/18 10:14 97.3 100 26 () 98 07/07/18 10:00 97.3 100 26 136/96 (109) Vapotherm 07/07/18 09:24 97 07/07/18 09:00 101 18 169/92 (117) 99 Vapotherm 40.00 25.00 07/07/18 08:19 Vapotherm 40.00 25.00 07/07/18 08:15 96 Vapotherm 25.00 40 I & O 07/08/18 07:00 Intake Total 2390 ml Output Total 3900 ml Balance -1510 ml Capillary Refill : Less Than 3 Seconds General Appearance: No Apparent Distress, WD/WN, Other (Confused this morning) HEENT: Normal ENT Inspection Neck: Full Range of Motion Respiratory: No Accessory Muscle Use, No Respiratory Distress, Decreased Breath Sounds, Wheezing Cardiovascular: Regular Rate, Rhythm, No Murmur Gastrointestinal: non tender, soft Results Lab Laboratory Tests 07/08/18 04:50 Laboratory Tests 07/08/18 04:50: White Blood Count 14.2H, Red Blood Count 3.95L, Hemoglobin 11.4L, Hematocrit 37 , Mean Corpuscular Volume 93, Mean Corpuscular Hemoglobin 29, Mean Corpuscular Hemoglobin Concent 31L, Red Cell Distribution Width 16.6H, Platelet Count 417H, Mean Platelet Volume 9.8, Neutrophils (%) (Auto) 81H, Lymphocytes (%) (Auto) 15 , Monocytes (%) (Auto) 4, Eosinophils (%) (Auto) 0, Basophils (%) (Auto) 0, Neutrophils # (Auto) 11.5H, Lymphocytes # (Auto) 2.1, Monocytes # (Auto) 0.6, Eosinophils # (Auto) 0.0, Basophils # (Auto) 0.0, Sodium Level 142, Potassium Level 4.5, Chloride Level 105, Carbon Dioxide Level 27, Anion Gap 10, Blood Urea Nitrogen 10, Creatinine 0.83, Estimat Glomerular Filtration Rate > 60, BUN/ Creatinine Ratio 12, Glucose Level 167H, Calcium Level 9.2, Corrected Calcium 9.8, Phosphorus Level 3.4, Magnesium Level 2.0, Total Bilirubin 0.3, Aspartate Amino Transf (AST/SGOT) 17, Alanine Aminotransferase (ALT/SGPT) 18, Alkaline Phosphatase 98, Total Protein 6.3L, Albumin 3.3 Microbiology 07/05/18 Blood Culture - Preliminary, Resulted No growth 07/05/18 MRSA Screen - Final, Complete MRSA not isolated 07/05/18 Urine Culture - Final, Complete NO GROWTH Assessment/Plan Assessment/Plan Assess & Plan/Chief Complaint Fall with no fractures. Bilateral pneumonia. COPD. Bipolar. Dementia. Hypertension. History of tobaccoism Clinical Quality Measures DVT/VTE Risk/Contraindication: Risk Factor Score Per Nursin RFS Level Per Nursing on Admit: 4+=Very High JOCELYNE MEI DO Jul 08, 2018 08:11
--- NOTE | 2018-07-08 12:03 | NUR ---
CM/SS, respond to consult. Patient was only home two nights before returning to the hospital. Physician documents timeline as 8 weeks [place], approx one month [facility] IRF, and to [facility] for skilled care 06/13/18. Regarding skilled care, patient is insured Medicare only and it appears she would have used her 20 days of full coverage benefits before going home. She would now have an out of pocket obligation of 20% and she indicates she can not incur this. Visited with patient about post hospital planning. She has endured major health issues and the associated costs over the past weeks. She indicates she has 'no choice' but to return home at discharge. Will continue to follow for post acute care planning.
--- NOTE | 2018-07-08 13:02 | NUR ---
PT REQUESTING SOMETHING FOR COUGH, SPECIFICALLY MUCINEX. DR MEI NOTIFIED AND NEW ORDERS RECEIVED. SEE ORDER HX.
[2018-07-08] MEDS: guaiFENesin (MUCINEX) 600 MG TAB PO SCH ×2 (13:27→20:48)
--- NOTE | 2018-07-08 13:38 | NUR ---
Pt is [employer]. 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
--- NOTE | 2018-07-08 15:11 | Physical Therapy Evaluation ---
PT Evaluation-General Medical Diagnosis Admission Date Jul 05, 2018 at 15:40 Medical Diagnosis: Pneumonia; COPD exac Onset Date: Jul 05, 2018 Therapy Diagnosis Therapy Diagnosis: weakness; abn gait Height/Weight Height (Feet): 5 Height (Inches): 7.00 Weight (Pounds): 266 Weight (Ounces): 8.0 Precautions Precautions/Isolations: Fall Prevention, Standard Precautions, Pressure Ulcer Referral Physician: Yary Reason for Referral: Evaluation/Treatment Medical History Pertinent Medical History: CAD, COPD, GERD, Hypothroidism, OA, Smoking Additional Medical History Prior to this hospital stay, pt had an extended hospital stay that included LTAC and ARU. She was a Medical [place] [employer] prior to this hospital admit. Current History pt had been in her apartment 2 nights; she fell and was transported to this hospital. DX pneumonia and COPD exac. Reviewed History: Yes Social History Home: Apartment (senior housing in [place]) Current Living Status: Alone Entry Into Home: Level Entry Prior/Core FIM Prior Level of Function Therapy Code Descriptions/Definitions Functional Fountain Measure: 0=Not Assessed/NA 4=Minimal Assistance 1=Total Assistance 5=Supervision or Setup 2=Maximal Assistance 6=Modified Fountain 3=Moderate Assistance 7=Complete Fountain Therapy Quality Codes: 6 Independent with activity with or without an assistive device 5 Patient requires set up or clean up by helper. Patient completes activity by themselves 4 Supervision or touching assist (CGA). [place]ondo provide cues , steadying assist 3 The helper provides less than half the effort to complete the activity 2 The helper provides more than half the effort to complete the activity 1 Dependent. The helper does all the effort to complete an activity 7 Patient refused to complete or attempt activity 9 The patient did not perform the activity before the current illness or injury 88 Not attempted due to Medical conditions or safety concerns Functional Abilities and Goals: Independent: Patient completed the activities by him/herself, with or without an assistive device, with no assistance from a helper. Needed Some Help: Patient needed partial assistance from another person to complete activities. Dependent: A helper completed the activities for the patient. Unknown: Not Applicable: Bed Mobility: 6 Transfers (B,C,W/C) (FIM): 6 Gait: 6 Indoor Mobility (Ambulation): Independent Stairs: Not Applicalbe Prior Devices Use: Walker PT Evaluation-Current Subjective Pt reports she fell at home. Reports she feels it was oxygen related. Pain Location: Left Location Body Site: Knee Pain Description: Ache (sore) Pt/Family Goals She reports her goal is to discharge back to her apartment. Objective Patient Orientation: Person, Place, Time, Situation Attachments: Oxygen, Oseguera Catheter, IV ROM/Strength ROM Lower Extremities WNL Strength Lower Extremities grossly 4-/5 Integumentary/Posture Integumentary refer to nursing notes. Bowel Incontinence: No Bladder Incontinence: Oseguera Cath Posture normal and symmetrical Neuromuscular (Tone, Coordination, Reflexes) intact and functional Sensory Vision: Functional Hearing: Functional Hand Dominance: Right Sensation Right Lower Extremit: Intact Sensation Left Lower Extremity: Intact Transfers Therapy Code Descriptions/Definitions Functional Fountain Measure: 0=Not Assessed/NA 4=Minimal Assistance 1=Total Assistance 5=Supervision or Setup 2=Maximal Assistance 6=Modified Fountain 3=Moderate Assistance 7=Complete Fountain Sit to/from Stand: 4 (min assist and skilled cues for sequencing. ) pt stood at chair and performed marching and calf raises x 10 each. Balance Sitting Static: Good Sitting Dynamic: Good Standing Static: Fair Standing Dynamic: Fair Treatment Seated B LE ther ex x 10 for AP< heel raises, LAQ, hip flexion, hip abduct and GS. Assessment/Needs Post fall at home with a decline in functional transfers and mobility. She will benefit from skilled PT intervention to increase functional strength and safety to allow her to return home. Rehab Potential: Good PT Hypnotherapist Goals Snf Goals PT Snf Goals Time Frame: Jul 15, 2018 Transfers (B,C,W/C) (FIM): 6 Gait (FIM): 6 Gait distance (FIM): 3=150 ft Gait Assistive Device: FWW PT Plan Problem List Problem List: Activity Tolerance, Functional Strength, Safety, Balance, Gait, Transfer, Bed Mobility Treatment/Plan Treatment Plan: Continue Plan of Care Treatment Plan: Bed Mobility, Education, Functional Activity Fede, Functional Strength, Gait, Safety, Therapeutic Exercise, Transfers Treatment Duration: Jul 15, 2018 Frequency: 6 times per week Estimated Hrs Per Day: .5 hour per day Patient and/or Family Agrees t: Yes Safety Risks/Education Patient Education: Transfer Techniques, Safety Issues Teaching Recipient: Patient Teaching Methods: Demonstration, Discussion Response to Teaching: Reinforcement Needed Discharge Recommendations Therapy D/C Recommendations: Physical Therapy Home Care Time/GCodes Time In: 1440 Time Out: 1505 Total Billed Treatment Time: 25 Total Billed Treatment visit EVM 15 EX 10 PILLO DAWSON PT Jul 08, 2018 15:11
[2018-07-08] MEDS ORDERED: TROUGH ORDER-PHARMACY XX NR (17:00)
--- NOTE | 2018-07-08 19:35 | NUR ---
DR MEI NOTIFIED OF PT'S ELEVATED BLOOD PRESSURE, NEW ORDERS RECEIVED SEE ORDER HX.
[2018-07-08] MEDS: amLODIPine 5 MG (NORVASC) TAB PO SCH (20:49)
[2018-07-08] MEDS: OLANZapine 5 MG (ZyPREXA) TAB PO SCH (21:25)
[2018-07-09 00:06] VITALS: BP 185/97
[2018-07-09] MEDS: HALOPERIDOL 5 MG/ML (HALDOL) AMP IV PRN (01:06)
--- NOTE | 2018-07-09 01:06 | NUR ---
Pt yelling out, attempting to climb out of bed, unaware that she is in a hospital. Haldol 5mg iv slowly given for aggressive behavior. 0130 - Haldol unable to calm pt as she continues to yell and climb out of bed. Efforts to reorientate unsuccessful. Will continue to monitor.
[2018-07-09] MEDS: HYDROcodone/APAP 10 MG/325 MG (LORTAB) TAB PO PRN ×3 (01:36→20:33)
[2018-07-09] MEDS: RT-ALBUTEROL/IPRATROPIUM 3 ML (DUONEB) VIAL INH SCH ×6 (02:38→23:06)
[2018-07-09 04:00] VITALS: BP 170/88
[2018-07-09] MEDS: PIPERACILLIN/TAZO 4.5 GM/NS 100 ML IV SCH ×6 (04:12→20:32)
[2018-07-09 04:48] LABS: BASOPHILS # (AUTO) 0.1 10^3/uL (0.0-0.1); BASOPHILS % (AUTO) 0 % (0-10); EOSINOPHILS # (AUTO) 0.2 10^3/uL (0.0-0.3); EOSINOPHILS % (AUTO) 1 % (0-10); HEMATOCRIT 39 % (35-52); HEMOGLOBIN 12.1 G/DL (11.5-16.0); LYMPHOCYTES # (AUTO) 5.5 X 10^3 (1.0-4.0); LYMPHOCYTES % (AUTO) 28 % (12-44); MEAN CORPUSCULAR HEMOGLOBIN 28 PG (25-34); MEAN CORPUSCULAR HGB CONC 31 G/DL (32-36); MEAN CORPUSCULAR VOLUME 92 FL (80-99); MONOCYTES # (AUTO) 1.7 X 10^3 (0.0-1.0); MONOCYTES % (AUTO) 9 % (0-12); NEUTROPHILS % (AUTO) 62 % (42-75); PLATELET COUNT 452 10^3/uL (130-400); RED CELL DISTRIBUTION WIDTH 16.6 % (10.0-14.5); WHITE BLOOD COUNT 19.4 10^3/uL (4.3-11.0)
[2018-07-09 05:13] LABS: ALANINE AMINOTRANSFERASE 18 U/L (0-55); ALBUMIN 3.6 GM/DL (3.2-4.5); ALKALINE PHOSPHATASE 105 U/L (40-136); BILIRUBIN,TOTAL 0.4 MG/DL (0.1-1.0); BUN/CREATININE RATIO 16; CALCIUM 9.6 MG/DL (8.5-10.1); CARBON DIOXIDE 28 MMOL/L (21-32); CHLORIDE 103 MMOL/L (98-107); CREATININE SERUM 0.91 MG/DL (0.60-1.30); GFR ESTIMATED > 60; GLUCOSE 113 MG/DL (70-105); MAGNESIUM 2.2 MG/DL (1.8-2.4); PHOSPHORUS 3.8 MG/DL (2.3-4.7); POTASSIUM 3.7 MMOL/L (3.6-5.0); SODIUM 145 MMOL/L (135-145)
[2018-07-09] MEDS: RT-ADVAIR HFA 115/21 MCG PER PUFF IH SCH ×2 (07:38→19:20)
[2018-07-09 08:00] VITALS: BP 174/89
--- NOTE | 2018-07-09 08:02 | Progress Note (SOAP) ---
Subjective Time Seen by a Provider: 07:57 Subjective/Events-last exam patient hallucinated last night and confused. Patient has large urinary output. Patient now on nasal cannula from Vapotherm. Lungs wheezing Objective Exam Vital Signs Date Time Temp Pulse Resp B/P (MAP) Pulse Ox O2 Delivery O2 Flow Rate FiO2 07/09/18 07:35 96 Nasal Cannula 4.00 07/09/18 04:00 97.8 97 20 170/88 (115) 96 Nasal Cannula 4.00 07/09/18 02:39 98 Nasal Cannula 4.00 07/09/18 00:06 97.8 99 22 185/97 (126) 96 Nasal Cannula 4.00 07/08/18 22:36 98 Nasal Cannula 4.00 07/08/18 20:50 Nasal Cannula 4.00 07/08/18 19:35 98.3 100 22 156/73 (100) 97 Nasal Cannula 4.00 07/08/18 19:07 93 Nasal Cannula 4.00 07/08/18 16:55 91 92 36 07/08/18 16:20 98.8 85 24 180/92 (121) 99 Nasal Cannula 4.00 07/08/18 15:07 92 Nasal Cannula 4.00 07/08/18 12:00 99.7 90 36 189/93 (125) 93 Vapotherm 45.00 25.00 07/08/18 11:06 95 Vapotherm 20.00 30 07/08/18 09:10 Vapotherm 25.00 40 07/08/18 08:00 97.6 87 28 186/90 (122) 95 Vapotherm 45.00 25.00 I & O 07/09/18 07:00 Intake Total 3290 ml Output Total 6875 ml Balance -3585 ml Capillary Refill : Less Than 3 Seconds General Appearance: No Apparent Distress, WD/WN HEENT: Normal ENT Inspection Neck: Full Range of Motion, Normal Inspection Respiratory: No Accessory Muscle Use, No Respiratory Distress, Decreased Breath Sounds, Wheezing Cardiovascular: Regular Rate, Rhythm, No Murmur Gastrointestinal: non tender, soft Results Lab Laboratory Tests 07/09/18 04:20 Laboratory Tests 07/08/18 17:19: Vancomycin Level Trough 19.1 07/09/18 04:20: White Blood Count 19.4H, Red Blood Count 4.27L, Hemoglobin 12.1, Hematocrit 39, Mean Corpuscular Volume 92, Mean Corpuscular Hemoglobin 28, Mean Corpuscular Hemoglobin Concent 31L, Red Cell Distribution Width 16.6H, Platelet Count 452H, Mean Platelet Volume 10.0, Neutrophils (%) (Auto) 62, Lymphocytes (%) (Auto) 28 , Monocytes (%) (Auto) 9, Eosinophils (%) (Auto) 1, Basophils (%) (Auto) 0, Neutrophils # (Auto) 12.0H, Lymphocytes # (Auto) 5.5H, Monocytes # (Auto) 1.7H, Eosinophils # (Auto) 0.2, Basophils # (Auto) 0.1, Sodium Level 145, Potassium Level 3.7, Chloride Level 103, Carbon Dioxide Level 28, Anion Gap 14, Blood Urea Nitrogen 15, Creatinine 0.91, Estimat Glomerular Filtration Rate > 60, BUN/ Creatinine Ratio 16, Glucose Level 113H, Calcium Level 9.6, Corrected Calcium 9.9, Phosphorus Level 3.8, Magnesium Level 2.2, Total Bilirubin 0.4, Aspartate Amino Transf (AST/SGOT) 17, Alanine Aminotransferase (ALT/SGPT) 18, Alkaline Phosphatase 105, Total Protein 7.0, Albumin 3.6 Microbiology 07/05/18 Blood Culture - Preliminary, Resulted No growth 07/05/18 MRSA Screen - Final, Complete MRSA not isolated 07/05/18 Urine Culture - Final, Complete NO GROWTH Assessment/Plan Assessment/Plan Assess & Plan/Chief Complaint Fall with no fractures. Bilateral pneumonia. COPD. Bipolar. Dementia. Hypertension. History of tobaccoism. . 07/09/18. Fall with no fractures. Bilateral pneumonia. COPD. Bipolar. Dementia. Has some dementia. Hypertension. Confusion. Clinical Quality Measures DVT/VTE Risk/Contraindication: Risk Factor Score Per Nursin RFS Level Per Nursing on Admit: 4+=Very High JOCELYNE MEI DO Jul 09, 2018 08:02
--- NOTE | 2018-07-09 08:05 | NUR ---
DR MEI IN TO SEE PATIENT NEW ORDERS RECEIVED.
--- NOTE | 2018-07-09 08:12 | Diagnostic Imaging Report ---
INDICATION: Cough. COMPARISON: 07/08/2018. FINDINGS: Improving but persistent multifocal patchy consolidations in both lungs. No pleural effusion or pneumothorax. Stable borderline cardiomegaly. IMPRESSION: Improving but persistent multifocal airspace opacities likely due to pneumonia per provided history. Dictated by: Dictated on workstation # [id number]
[2018-07-09] MEDS: risperiDONE 0.25 MG (RisperDAL) TAB PO SCH ×2 (09:03→20:34)
[2018-07-09] MEDS: amLODIPine 5 MG (NORVASC) TAB PO SCH (09:03)
[2018-07-09] MEDS: DONEPEZIL 10 MG (ARICEPT) TAB PO SCH (09:03)
[2018-07-09] MEDS: FAMOTIDINE 20 MG (PEPCID) TABLET PO SCH (09:03)
[2018-07-09] MEDS: lisINopril 10 MG (PRINIVIL) TABLET PO SCH (09:03)
[2018-07-09] MEDS: PANTOPRAZOLE 40 MG (PROTONIX) TAB PO SCH ×2 (09:03→20:34)
[2018-07-09] MEDS: meTOprolol SUCCINATE 100 MG (TOPROL XL) TAB PO SCH (09:03)
[2018-07-09] MEDS: SUCRALFATE 1 GM (CARAFATE) TAB PO SCH ×3 (09:03→20:33)
[2018-07-09] MEDS: guaiFENesin (MUCINEX) 600 MG TAB PO SCH ×2 (09:03→20:32)
[2018-07-09] MEDS: CYCLOBENZAPRINE 10 MG (FLEXERIL) TAB PO SCH ×3 (09:03→20:34)
[2018-07-09] MEDS: LORATADINE (CLARITIN) 10 MG TAB PO SCH (09:03)
[2018-07-09] MEDS: ENOXAPARIN 40 MG/0.4 ML (LOVENOX) SYR SC SCH ×2 (09:04→20:33)
--- NOTE | 2018-07-09 10:56 | Physical Therapy Daily Note ---
PT Daily Note-Current Subjective Pt sitting up in chair. Agrees to PT. Reports she does not feel that she can walk but is agreeable to other activities. Pain Numeric Pain Scale: 10-Worst Possible Pain Location: Left Location Body Site: Face Pain Description: Ache, Dull Comment: Took pain meds during treatment; 10/10 in WB; 9/10 in sitting. Mental Status Patient Orientation: Person, Place, Time, Situation Attachments: Oxygen (in situ during and post treatment at 4 l/min), Oseguera Catheter Transfers Therapy Code Descriptions/Definitions Functional [place] Measure: 0=Not Assessed/NA 4=Minimal Assistance 1=Total Assistance 5=Supervision or Setup 2=Maximal Assistance 6=Modified [place] 3=Moderate Assistance 7=Complete [place] Therapy Quality Codes: 6 Independent with activity with or without an assistive device 5 Patient requires set up or clean up by helper. Patient completes activity by themselves 4 Supervision or touching assist (CGA). [place] provide cues , steadying assist 3 The helper provides less than half the effort to complete the activity 2 The helper provides more than half the effort to complete the activity 1 Dependent. The helper does all the effort to complete an activity 7 Patient refused to complete or attempt activity 9 The patient did not perform the activity before the current illness or injury 88 Not attempted due to Medical conditions or safety concerns Sit to/from Stand: 4 (sit to stand x 3 reps with min assist to stand. ) Exercises Supine Ex: Quad Set, Glut sets, Heel Slides, Short Arc Quads, Hip abd/add Supine Reps: 15 (LE strengthening and ROM of joints to promote improved functional activity tolerance and progress to gait.) Seated Therapy Exercises: Ankle pumps, Long arc quads, Hip flexion, Hip abd/add Seated Reps: 15 Standing: Heel/toe raises, Marching, Mini squats Standing Reps: 10 (to promote standing activity and WB tolerance. ) Treatments Functional strengthening activities in multiple positions to promote LE strength and functional activity tolerance. Applied cold pack to left knee post treatment and educated on use throughout the day for pain management. Assessment Current Status: Good Progress Unable to fully WB on left LE to attempt gait this visit. PT Alf Goals Private Inquiry Agent Goals PT Alf Goals Time Frame: Jul 15, 2018 Transfers (B,C,W/C) (FIM): 6 Gait (FIM): 6 Gait distance (FIM): 3=150 ft Gait Assistive Device: FWW PT Plan Problem List Problem List: Activity Tolerance, Functional Strength, Safety, Balance, Gait, Transfer, Bed Mobility Treatment/Plan Treatment Plan: Continue Plan of Care Treatment Plan: Bed Mobility, Education, Functional Activity Fede, Functional Strength, Gait, Safety, Therapeutic Exercise, Transfers Treatment Duration: Jul 15, 2018 Frequency: 6 times per week Estimated Hrs Per Day: .5 hour per day Patient and/or Family Agrees t: Yes Safety Risks/Education Patient Education: Reviewed Use of Ice Teaching Recipient: Patient Teaching Methods: Discussion Response to Teaching: Verbalize Understanding Discharge Recommendations Therapy D/C Recommendations: Physical Therapy Home Care Time/GCodes Time In: 1000 Time Out: 1029 Total Billed Treatment Time: 29 Total Billed Treatment visit EX 29 PILLO DAWSON PT Jul 09, 2018 10:56
[2018-07-09 12:00] VITALS: BP 193/100
[2018-07-09] MEDS: LACTOBACILLUS ACIDOPHILUS (PROBIOTIC) CAPSULE PO SCH ×2 (12:20→17:08)
--- NOTE | 2018-07-09 13:51 | Occupational Therapy Eval ---
OT Evaluation-General/PLF Medical Diagnosis Admission Date Jul 05, 2018 at 15:40 Medical Diagnosis: Pneumonia; COPD exac Onset Date: Jul 05, 2018 Therapy Diagnosis Therapy Diagnosis: impaired self care skills Height/Weight Height (Feet): 5 Height (Inches): 7.00 Weight (Pounds): 249 Weight (Ounces): 5.0 Precautions Precautions/Isolations: Fall Prevention Safety Interventions: Bed Exit Alarm, Reorient-Attempt, Reorient-PRN Referral Physician: Yary Medical History Pertinent Medical History: CAD, COPD, GERD, Hypothroidism, OA, Smoking Additional Medical History trach, bowel surgery, chronic bronchitis, chronic edema, high cholesterol, HTN, hiatal hernia, arthritis, lupus, anxiety, bipolar, personality disorder, depression, psoriasis. Current History pt had an extended hospital stay that included LTAC and ARU. She was a Medical [place] and had been home for few days before falling at home and coming to hospital Reviewed History: Yes Social History Home: Apartment (senior housing in [place]) Current Living Status: Alone Entry Into Home: Level Entry ADL-Prior Level of Function Therapy Code Descriptions/Definitions Functional [place] Measure: 0=Not Assessed/NA 4=Minimal Assistance 1=Total Assistance 5=Supervision or Setup 2=Maximal Assistance 6=Modified [place] 3=Moderate Assistance 7=Complete [place] Therapy Quality Codes: 6 Independent with activity with or without an assistive device 5 Patient requires set up or clean up by helper. Patient completes activity by themselves 4 Supervision or touching assist (CGA). [place] provide cues , steadying assist 3 The helper provides less than half the effort to complete the activity 2 The helper provides more than half the effort to complete the activity 1 Dependent. The helper does all the effort to complete an activity 7 Patient refused to complete or attempt activity 9 The patient did not perform the activity before the current illness or injury 88 Not attempted due to Medical conditions or safety concerns Functional Abilities and Goals: Independent: Patient completed the activities by him/herself, with or without an assistive device, with no assistance from a helper. Needed Some Help: Patient needed partial assistance from another person to complete activities. Dependent: A helper completed the activities for the patient. Unknown: Not Applicable: ADL PLOF Comments Pt states she had only been home for a few days and had been completing ADLs and mobility without assist. Had a fall at home. DME/Equipment: Grab Bars, Shower, Toilet/Riser Pt states she has grab bars by the toilet, but not in the shower. OT Current Status Subjective Pt agreeable to therapy this morning. Mental Status/Objective Patient Orientation: Person, Place Attachments: Oseguera Catheter, Oxygen Current Glasses/Contacts: Yes Hearing Aids: No Hand Dominance: Right Upper Extremity ROM impaired shoulder ROM bilaterally Upper Extremity Strength decreased bilateral UE ADL-Treatment ADL-Current Pt finishing meal when therapist arrived. Pt feeding self after set up. Pt states she has been incontinent, requests to transfer to BSC. Sit to stand with minimal assistance. Transfer to BSC with min assist and cues for safety using FWW. Pt attempts to sit prior to safely reaching BSC, requires cues for safety. Pt requires total assist for hygiene. Transfer to back to chair with minimal assistance. Pt fatigues quickly with activity, requires rest break after mobility. Pt sitting in chair with needs met after session. Therapy Code Descriptions/Definitions Functional [place] Measure: 0=Not Assessed/NA 4=Minimal Assistance 1=Total Assistance 5=Supervision or Setup 2=Maximal Assistance 6=Modified [place] 3=Moderate Assistance 7=Complete [place] Therapy Quality Codes: 6 Independent with activity with or without an assistive device 5 Patient requires set up or clean up by helper. Patient completes activity by themselves 4 Supervision or touching assist (CGA). [place] provide cues , steadying assist 3 The helper provides less than half the effort to complete the activity 2 The helper provides more than half the effort to complete the activity 1 Dependent. The helper does all the effort to complete an activity 7 Patient refused to complete or attempt activity 9 The patient did not perform the activity before the current illness or injury 88 Not attempted due to Medical conditions or safety concerns Eating (FIM): 5 Toileting (FIM): 2 Toilet/Commode Transfer (FIM): 4 Education OT Patient Education: Rehab process Teaching Recipient: Patient Teaching Methods: Discussion Response to Teaching: Verbalize Understanding OT Short Term Goals Short Term Goals 1=Demonstrate adherence to instructed precautions during ADL tasks. 2=Patient will verbalize/demonstrate understanding of assistive devices/ modifications for ADL. 3=Patient will improve strength/tolerance for activity to enable patient to perform ADL's. OT Long-Term Goals Healthcare Customer Service Goals Time Frame: Jul 20, 2018 Grooming(FIM): 6 Bathing(FIM): 5 Upper Body Dressing(FIM): 5 Lower Body Dressing(FIM): 5 Toileting(FIM): 6 Toilet/Commode Transfer(FIM): 6 Additional Goals: 1-Demonstrate ADL Tasks, 2-Verbalize Understanding, 3- ImproveStrength/Fede 1=Demonstrate adherence to instructed precautions during ADL tasks. 2=Patient will verbalize/demonstrate understanding of assistive devices/ modifications for ADL. 3=Patient will improve strength/tolerance for activity to enable patient to perform ADL's. OT Education/Plan Problem List/Assessment Assessment: Decreased Activ Tolerance, Decreased UE Strength, Dependent Transfers, Impaired I ADL's, Impaired Self-Care Skills Pt to benefit from skilled OT intervention for ADL training, transfers, strengthening, and safety education to increase level of independence and allow safe discharge plan. Discharge Recommendations Plan/Recommendations: Continue POC Treatment Plan/Plan of Care Treatment,Training & Education: Yes Patient would benefit from OT for education, treatment and training to promote independence in ADL's, mobility, safety and/or upper extremity function for ADL' s. Plan of Care: ADL Retraining, Functional Mobility, UE Funct Exercise/Act Treatment Duration: Jul 20, 2018 Frequency: 5 times per week Estimated Hrs Per Day: .25 hour per day Rehab Potential: Fair Time/GCodes Start Time: 11:29 Stop Time: 11:56 Total Time Billed (hr/min): 27 Billed Treatment Time 1 visit, EVM(15minutes), ADL(12minutes) ALIYAH PORTILLO OT Jul 09, 2018 13:51
--- NOTE | 2018-07-09 13:53 | NUR ---
PALLIATIVE CARE CONSULT placed 07/06 and found today. This RN went to see patient who was in bed resting. She did respond and agree to visit. Spoke with her about her needs at discharge. She reports having O2 at home. It seemed like the patient was pretty well with it until the end of the visit when she started looking for her shoes. hen asked where she was going she said that she "needed to look for her house". It was at this point that I remembered she has a dx of dementia. Will follow and attempt to communicate with the doctors Sylvia and Antonella redd needs post discharge.
[2018-07-09 15:43] VITALS: BP 175/98
[2018-07-09 19:47] VITALS: BP 163/90
[2018-07-09] MEDS: OLANZapine 5 MG (ZyPREXA) TAB PO SCH (20:33)
[2018-07-10 00:08] VITALS: BP 181/89
--- NOTE | 2018-07-10 00:23 | NUR ---
Dr. Ward notified of blood pressure at 181/89 with hr at 110 and of pt's combativeness and aggressive behavior. Pt yelling out and attempting to climb out of bed and has also pulled her iv out once this shift. New orders rec to consult cardiology. also instructed to give Haldol 5mg iv and may repeat x 1 dose in 2 hours if necessary.
[2018-07-10] MEDS: HALOPERIDOL 5 MG/ML (HALDOL) AMP IV PRN ×2 (00:30→11:01)
--- NOTE | 2018-07-10 00:45 | NUR ---
Dr. Reis notified of consult and informed briefly of pt history, increased blood pressure, and of cardiac meds that she takes daily. New orders rec to give a one time dose of Toprol XL 100mg PO now and Lisinopril 10 mg PO now. Also, order rec to increase Toprol 100mg from Daily to BID. Will continue to monitor.
--- NOTE | 2018-07-10 00:50 | NUR ---
Dr. Ward called back and ordered Ativan 1mg IV to be given now. Pt remains combative and aggressive at this time. Will administer Ativan as ordered.
[2018-07-10] MEDS ORDERED: lisINopril 10 MG (PRINIVIL) TABLET PO ONE (01:00)
[2018-07-10] MEDS ORDERED: LORazepam INJ 2 MG/ML (ATIVAN) VIAL IVP PRN (01:00)
[2018-07-10] MEDS ORDERED: meTOprolol SUCCINATE 100 MG (TOPROL XL) TAB PO ONE (01:00)
--- NOTE | 2018-07-10 01:36 | NUR ---
Pt resting quietly at this time after Ativan given. Will continue to monitor.
[2018-07-10 02:06] VITALS: BP 115/76
[2018-07-10] MEDS: RT-ALBUTEROL/IPRATROPIUM 3 ML (DUONEB) VIAL INH SCH ×6 (02:48→21:00)
[2018-07-10] MEDS: PIPERACILLIN/TAZO 4.5 GM/NS 100 ML IV SCH ×6 (04:37→20:17)
[2018-07-10 04:42] VITALS: BP 141/80
[2018-07-10] MEDS: RT-ADVAIR HFA 115/21 MCG PER PUFF IH SCH ×2 (07:39→21:04)
[2018-07-10 07:44] LABS: BASOPHILS # (AUTO) 0.1 10^3/uL (0.0-0.1); BASOPHILS % (AUTO) 1 % (0-10); EOSINOPHILS % (AUTO) 6 % (0-10); HEMATOCRIT 42 % (35-52); LYMPHOCYTES # (AUTO) 4.4 X 10^3 (1.0-4.0); LYMPHOCYTES % (AUTO) 27 % (12-44); MEAN CORPUSCULAR HEMOGLOBIN 28 PG (25-34); MEAN CORPUSCULAR HGB CONC 31 G/DL (32-36); MEAN CORPUSCULAR VOLUME 92 FL (80-99); MEAN PLATELET VOLUME 9.5 FL (7.4-10.4); MONOCYTES # (AUTO) 1.5 X 10^3 (0.0-1.0); MONOCYTES % (AUTO) 9 % (0-12); NEUTROPHILS # (AUTO) 9.2 X 10^3 (1.8-7.8); NEUTROPHILS % (AUTO) 56 % (42-75); PLATELET COUNT 465 10^3/uL (130-400); RED CELL DISTRIBUTION WIDTH 16.6 % (10.0-14.5); WHITE BLOOD COUNT 16.3 10^3/uL (4.3-11.0)
[2018-07-10 08:00] VITALS: BP 134/96
--- NOTE | 2018-07-10 08:03 | Progress Note (SOAP) ---
Subjective Time Seen by a Provider: 07:59 Subjective/Events-last exam Patient was not sleeping last night. Patient confused. Patient agitated. Patient given Ativan and went to sleep for good length of time. Patient not interested in [facility]. Patient hypertensive. Patient given Toprol XL and lisinopril. Blood pressure this morning good. Chest x-ray yesterday shows improvement of pneumonia. Patient this morning knows where she is and knows what 10-2 equals. White blood cell count 16,000 compared to 19,000 the day before that Objective Exam Vital Signs Date Time Temp Pulse Resp B/P (MAP) Pulse Ox O2 Delivery O2 Flow Rate FiO2 07/10/18 07:39 95 Nasal Cannula 3.00 07/10/18 07:24 96 Nasal Cannula 4.00 07/10/18 04:42 97.4 100 20 141/80 (100) 96 Nasal Cannula 4.00 07/10/18 02:06 97.0 99 20 115/76 (89) 96 Nasal Cannula 4.00 07/10/18 00:08 97.8 110 22 181/89 (119) 94 Nasal Cannula 4.00 07/09/18 23:08 92 Nasal Cannula 4.00 07/09/18 20:20 Nasal Cannula 4.00 07/09/18 19:47 97.8 102 26 163/90 (114) 96 Nasal Cannula 4.00 07/09/18 19:22 97 Nasal Cannula 4.00 07/09/18 15:43 96.7 106 24 175/98 (123) 94 Nasal Cannula 4.00 07/09/18 13:55 97 Nasal Cannula 4.00 07/09/18 12:00 96.7 99 20 193/100 (131) 100 Nasal Cannula 4.00 07/09/18 10:52 98 Nasal Cannula 4.00 07/09/18 08:35 Nasal Cannula 4.00 07/09/18 08:00 96.8 106 22 174/89 (117) 97 Nasal Cannula 4.00 I & O 07/10/18 07:00 Intake Total 1310 ml Output Total 4700 ml Balance -3390 ml Capillary Refill : Less Than 3 Seconds General Appearance: No Apparent Distress, WD/WN HEENT: Normal ENT Inspection Neck: Full Range of Motion, Normal Inspection Respiratory: No Accessory Muscle Use, No Respiratory Distress, Decreased Breath Sounds, Other (Patient on 4 L of nasal oxygen) Cardiovascular: Regular Rate, Rhythm, No Murmur Gastrointestinal: non tender, soft Results Lab Laboratory Tests 07/10/18 07:30 Laboratory Tests 07/09/18 10:57: Glucometer 158H 07/09/18 15:33: Glucometer 97 07/10/18 07:30: White Blood Count 16.3H, Red Blood Count 4.62, Hemoglobin 13.0, Hematocrit 42, Mean Corpuscular Volume 92, Mean Corpuscular Hemoglobin 28, Mean Corpuscular Hemoglobin Concent 31L, Red Cell Distribution Width 16.6H, Platelet Count 465H, Mean Platelet Volume 9.5, Neutrophils (%) (Auto) 56, Lymphocytes (%) (Auto) 27, Monocytes (%) (Auto) 9, Eosinophils (%) (Auto) 6, Basophils (%) (Auto) 1, Neutrophils # (Auto) 9.2H, Lymphocytes # (Auto) 4.4H, Monocytes # (Auto) 1.5H, Eosinophils # (Auto) 1.0H, Basophils # (Auto) 0.1 Microbiology 07/05/18 Blood Culture - Preliminary, Resulted No growth 07/05/18 MRSA Screen - Final, Complete MRSA not isolated 07/05/18 Urine Culture - Final, Complete NO GROWTH Assessment/Plan Assessment/Plan Assess & Plan/Chief Complaint Fall with no fractures. Bilateral pneumonia. COPD. Bipolar. Dementia. Hypertension. History of tobaccoism. . 07/09/18. Fall with no fractures. Bilateral pneumonia. COPD. Bipolar. Dementia. Has some dementia. Hypertension. Confusion.. . 07/10/18. Fall with no fracture. Bilateral pneumonia. COPD. Bipolar. Dementia. Confusion. Agitation. Hypertension better. Patient not confused this morning and resting comfortably. Consult social media marketing manager Clinical Quality Measures DVT/VTE Risk/Contraindication: Risk Factor Score Per Nursin RFS Level Per Nursing on Admit: 4+=Very High JOCELYNE MEI DO Jul 10, 2018 08:03
[2018-07-10] MEDS: guaiFENesin (MUCINEX) 600 MG TAB PO SCH ×2 (08:14→20:36)
[2018-07-10] MEDS: LORATADINE (CLARITIN) 10 MG TAB PO SCH (08:14)
[2018-07-10] MEDS: PANTOPRAZOLE 40 MG (PROTONIX) TAB PO SCH ×2 (08:14→20:36)
[2018-07-10] MEDS: FAMOTIDINE 20 MG (PEPCID) TABLET PO SCH (08:14)
[2018-07-10] MEDS: DONEPEZIL 10 MG (ARICEPT) TAB PO SCH (08:14)
[2018-07-10] MEDS: LORazepam 1 MG (ATIVAN) TAB PO PRN ×2 (08:14→20:42)
[2018-07-10] MEDS: LACTOBACILLUS ACIDOPHILUS (PROBIOTIC) CAPSULE PO SCH ×3 (08:14→17:55)
[2018-07-10] MEDS: SUCRALFATE 1 GM (CARAFATE) TAB PO SCH ×3 (08:14→20:45)
[2018-07-10] MEDS: amLODIPine 5 MG (NORVASC) TAB PO SCH (08:14)
[2018-07-10] MEDS: CYCLOBENZAPRINE 10 MG (FLEXERIL) TAB PO SCH ×3 (08:14→20:46)
[2018-07-10] MEDS: risperiDONE 1 MG (RisperDAL) TAB PO SCH ×2 (08:14→20:36)
[2018-07-10] MEDS: meTOprolol SUCCINATE 100 MG (TOPROL XL) TAB PO SCH ×2 (08:15→20:24)
[2018-07-10] MEDS: ENOXAPARIN 40 MG/0.4 ML (LOVENOX) SYR SC SCH (08:15)
[2018-07-10 08:16] LABS: ALBUMIN 3.7 GM/DL (3.2-4.5); BILIRUBIN,TOTAL 0.3 MG/DL (0.1-1.0); CALCIUM 9.8 MG/DL (8.5-10.1); CREATININE SERUM 0.97 MG/DL (0.60-1.30); MAGNESIUM 2.3 MG/DL (1.8-2.4); PHOSPHORUS 5.1 MG/DL (2.3-4.7); TOTAL PROTEIN 7.1 GM/DL (6.4-8.2)
[2018-07-10] MEDS: lisINopril 10 MG (PRINIVIL) TABLET PO SCH (08:16)
--- NOTE | 2018-07-10 10:19 | Physical Therapy Daily Note ---
PT Daily Note-Current Subjective Pt. in bed asleep. Unable to awaken her. Nursing sought out and reports she requests no Rx as pt. did not sleep all night, had meds to help relax, has been very confused and agitated and need to rest at this time. Transfers Therapy Code Descriptions/Definitions Functional [place] Measure: 0=Not Assessed/NA 4=Minimal Assistance 1=Total Assistance 5=Supervision or Setup 2=Maximal Assistance 6=Modified [place] 3=Moderate Assistance 7=Complete [place] Therapy Quality Codes: 6 Independent with activity with or without an assistive device 5 Patient requires set up or clean up by helper. Patient completes activity by themselves 4 Supervision or touching assist (CGA). [place] provide cues , steadying assist 3 The helper provides less than half the effort to complete the activity 2 The helper provides more than half the effort to complete the activity 1 Dependent. The helper does all the effort to complete an activity 7 Patient refused to complete or attempt activity 9 The patient did not perform the activity before the current illness or injury 88 Not attempted due to Medical conditions or safety concerns Assessment Current Status: Hold Per Dr/Nursing no Rx per nurse request , pt. has been agitated and and confused and has recieved meds to sleep/relax PT Planting Material Unloader Goals Planting Material Unloader Goals PT [facility] Goals Time Frame: Jul 15, 2018 Transfers (B,C,W/C) (FIM): 6 Gait (FIM): 6 Gait distance (FIM): 3=150 ft Gait Assistive Device: FWW PT Plan Treatment/Plan Treatment Plan: Continue Plan of Care Treatment Plan: Bed Mobility, Education, Functional Activity Fede, Functional Strength, Gait, Safety, Therapeutic Exercise, Transfers Treatment Duration: Jul 15, 2018 Frequency: 6 times per week Estimated Hrs Per Day: .5 hour per day Patient and/or Family Agrees t: Yes Time/GCodes Time In: 1015 Time Out: 1020 Total Billed Treatment Time: 5 Total Billed Treatment 1,No Rx, no chg G Codes Necessary: No LYNN MARTINEZ DIRECTOR OF FINANCE Jul 10, 2018 10:19
--- NOTE | 2018-07-10 10:57 | Diagnostic Imaging Report ---
EXAMINATION: Portable erect AP chest at 0940 hours. INDICATION: Pneumonia. FINDINGS: This exam is less than optimal as the patient is rotated. When compared to the prior exam of 07/09/2018, there does not appear to have been any significant change. The heart is stable in size. The patchy pulmonary infiltrates involving the right lung base and right upper lobe noted on the prior exam are again evident and essentially no different. The left lung base may be slightly better aerated. The mediastinum is not widened. The osseous structures are intact. IMPRESSION: The appearance of the chest has improved since the prior exam as the left lung base does seem better aerated. There are still patchy areas of pneumonia/atelectasis involving the right lung. A followup study would be recommended for continued evaluation. Dictated by: Dictated on workstation # [id number]
--- NOTE | 2018-07-10 11:11 | Occ Therapy Progress Note ---
Therapy Progress Note Per nrsg to hold therapy this morning. Pt combative and confused, nrsg to give medications to calm pt. Nrsg stated that pt has not slept very well. Will check on pt this afternoon. PILLO BABCOCK Jul 10, 2018 11:11
--- NOTE | 2018-07-10 11:13 | Pulmonary Progress Note ---
YVESADRIENNE Gregorio STUDENT 07/10/18 1113: Subjective Date Seen by a Provider: Jul 10, 2018 Time Seen by a Provider: 09:30 Sepsis Event Evaluation Height, Weight, BMI Height: 5'7.00" Weight: 223lbs. 9.6oz. [id number]; 37.0 BMI Method:Stated Exam Exam Vital Signs Date Time Temp Pulse Resp B/P (MAP) Pulse Ox O2 Delivery O2 Flow Rate FiO2 07/10/18 10:54 93 Nasal Cannula 4.00 07/10/18 08:00 96.4 97 22 134/96 (109) 93 Nasal Cannula 4.00 07/10/18 07:39 95 Nasal Cannula 3.00 07/10/18 07:24 96 Nasal Cannula 4.00 07/10/18 04:42 97.4 100 20 141/80 (100) 96 Nasal Cannula 4.00 07/10/18 02:06 97.0 99 20 115/76 (89) 96 Nasal Cannula 4.00 07/10/18 00:08 97.8 110 22 181/89 (119) 94 Nasal Cannula 4.00 07/09/18 23:08 92 Nasal Cannula 4.00 07/09/18 20:20 Nasal Cannula 4.00 07/09/18 19:47 97.8 102 26 163/90 (114) 96 Nasal Cannula 4.00 07/09/18 19:22 97 Nasal Cannula 4.00 07/09/18 15:43 96.7 106 24 175/98 (123) 94 Nasal Cannula 4.00 07/09/18 13:55 97 Nasal Cannula 4.00 07/09/18 12:00 96.7 99 20 193/100 (131) 100 Nasal Cannula 4.00 I & O 07/10/18 07:00 Intake Total 1310 ml Output Total 4700 ml Balance -3390 ml Height & Weight Height: 5'7.00" Weight: 223lbs. 9.6oz. [id number]; 37.0 BMI Method:Stated General Appearance: No Apparent Distress, WD/WN HEENT: Normal ENT Inspection Neck: Full Range of Motion, Normal Inspection Respiratory: No Accessory Muscle Use, No Respiratory Distress, Decreased Breath Sounds, Other (Patient on 4 L of nasal oxygen) Cardiovascular: Regular Rate, Rhythm, No Murmur Capillary Refill: Less Than 3 Seconds Peripheral Pulses: 2+ Dorsalis Pedis (R), 2+ Left Dors-Pedis (L), 2+ Radial Pulses (R), 2+ Radial Pulses (L) Gastrointestinal: non tender, soft Extremity: Normal Capillary Refill, Normal Inspection, Normal Range of Motion, Non Tender, No Calf Tenderness, No Pedal Edema Neurologic/Psychiatric: Alert, Oriented x3, No Motor/Sensory Deficits, Depressed Affect Skin: Normal Color, Warm/Dry Lymphatic: No Adenopathy Results Lab Laboratory Tests 07/09/18 04:20 07/10/18 07:30 Assessment/Plan Assessment/Plan S/p fall Acute on chronic respiratory failure -Hx of tracheostomy and ARDS -Pt would benefit from home vent to mask -Oxygen Bilateral pneumonia -Continue Zosyn -CXR showed improved aeration of the LLL and patchy infiltrate vs. atelectasis of right -PT may need bronchoscopy if she continues to have pulmonary infiltrates/PNA -lawson cultures preliminary no growth Severe oxygen dependent COPD with AE -SVNS, advair -Oxygen HTN with tachycardia -Toprol, lisinopril dementia vs ICU psychosis -Risperdal 0.5mg BID and PRN Haldol Depression CAD Morbid obesity HX of bipolar/anxiety Diagnosis/Problems Diagnosis/Problems (1) Pneumonia Status: Acute Qualifiers: Qualified Codes: J18.1 - Lobar pneumonia, unspecified organism (2) Fall Status: Acute Qualifiers: Qualified Codes: W19.XXXA - Unspecified fall, initial encounter (3) Acute on chronic respiratory failure with hypoxia and hypercapnia Status: Acute (4) Oxygen dependent Status: Chronic (5) Nausea Status: Chronic (6) Bipolar disorder Status: Chronic Qualifiers: Qualified Codes: F31.32 - Bipolar disorder, current episode depressed, moderate (7) COPD (chronic obstructive pulmonary disease) Status: Chronic Qualifiers: Qualified Codes: J44.9 - Chronic obstructive pulmonary disease, unspecified (8) Chronic mental illness Status: Chronic (9) Hypertension Status: Chronic Qualifiers: Qualified Codes: I10 - Essential (primary) hypertension (10) Myopathy Status: Chronic MERCEDES GARZA DO 07/10/18 1210: Assessment/Plan Assessment/Plan S/p fall Acute on chronic respiratory failure -Hx of tracheostomy and ARDS -Pt would benefit from home vent to mask -Oxygen Bilateral pneumonia -Continue Zosyn -CXR showed improved aeration of the LLL and patchy infiltrate vs. atelectasis of right -PT may need bronchoscopy if she continues to have pulmonary infiltrates/PNA -lawson cultures preliminary no growth Severe oxygen dependent COPD with AE -SVNS, advair -Oxygen HTN with tachycardia -Toprol, lisinopril dementia vs ICU psychosis -Risperdal 0.5mg BID and PRN Haldol Depression CAD Morbid obesity HX of bipolar/anxiety KALEN-ADRIENNE HELTON STUDENT Jul 10, 2018 11:13 MERCEDES GARZA DO Jul 10, 2018 12:10
--- NOTE | 2018-07-10 11:58 | NUR ---
0800 ASSESSMENT COMPLETE SEE FLOW SHEET, PT CONFUSED THIS AM AND IS YELLING OUT AND COMBATIVE AT TIMES, DR MEI IN TO SEE PATIENT AND NEW VERBAL ORDERS RECEIVED TO GIVE ATIVAN 1MG PO TID AND INCREASE RISPERDAL TO 1MG BID. ORDERS ENTERED AND PT ASSISTED BACK TO BED. 0830 PT SITTING UP IN BED EATING BREAKFAST ALL MORNING MEDICATIONS GIVEN WELL ATIVAN TABLET. 0900 PT RESTING QUIETLY RESPIRATIONS EVEN AND UNLABORED, CALL LIGHT AND OTHER PERSONAL ITEMS WITHIN REACH WILL CONTINUE TO MONITOR. 1100 - PT HITTING OUT AND YELLING AT RESPIRATORY THERAPIST. HALDOL GIVEN. 1130 PT RESTING QUIETLY IN BED. WILL CONTINUE TO MONITOR.
--- NOTE | 2018-07-10 13:08 | Consultation-Cardiology ---
HPI-Cardiology Cardiology Consultation: Date of Consultation 07/10/18 Date of Admission Attending Physician Rosalind Pringle DO Admitting Physician Garrett Ward DO Consulting Physician Miguel REIS MD HPI: Time Seen by a Provider: 11:15 Chief Complaint: Severe hypertension This is a 58-year-old lady with history of a fall and bilateral pneumonia. She has history of COPD. She also has bipolar disorder with dementia, confusion and agitation. Cardiology was consulted for severe hypertension. I'll increase the dose of Toprol-XL 200 mg twice a day and give an extra dose of lisinopril 10 mg. This morning the patient is very sleepy since she received Haldol. I tried to wake her up, she still very sleepy. Denies shortness of breath or chest pain. Review of Systems-Cardiology Review of Systems Constitutional: As described under HPI; No As described under HPI, No no symptoms reported, No chills, No fever, No lightheadedness Eyes: No As described under HPI, No no symptoms reported, No blindness, No blurred vision, No contact lenses, No drainage, No decreased acuity, No foreign body sensation, No pain, No vision change Ears/Nose/Throat: No As described under HPI, No no symptoms reported, No chronic hearing loss, No ear discharge, No ear pain, No nasal drainage, No ulcerations Respiratory: No no symptoms reported; As described under HPI; No As described under HPI, No cough, No orthopnea, No shortness of breath, No SOB with excertion Cardiovascular: No no symptoms reported; As described under HPI; No As described under HPI, No chest pain, No edema, No irregular heart rate, No lightheadedness, No palpitations Gastrointestinal: No no symptoms reported, No As described under HPI, No abdomen distended, No abdominal pain, No blood streaked bowels, No constipation , No diarrhea, No nausea, No vomiting, No stool coloration changes Genitourinary: No As described under HPI, No burning, No dysuria, No discharge , No frequency, No flank pain, No hematuria, No urgency : Yes : No Skin: No rash, No skin related problems, No ulcerations Psychiatric/Neurological: As described under HPI; No anxiety, No depression, No seizure, No focal weakness, No syncope Hematologic: No bleeding abnormalities All Other Systems Reviewed Negative Unless Noted: Yes [id number] Hx Patient Social History Marrital Status: single Employed/Student: unemployed Alcohol Use: Denies Use Recreational Drug Use: No Smoking Status: Former Smoker Type Used: Cigarettes 2nd Hand Smoke Exposure: Yes Recent Foreign Travel: No Recent Infectious Disease Expo: No Hospitalization with Isolation: Denies Physical Abuse Screen: No ( A CHILD) Sexual Abuse: No ( A CHILD) Immunizations Up To Date Tetanus Booster (TDap): Unknown Date of Pneumonia Vaccine: Mar 11, 2011 Date of Influenza Vaccine: Feb 22, 2018 Past Medical History PMH As described under Assessment. Family Medical History Family History: Arthritis 19 FATHER 19 MOTHER Cardiovascular disease 19 FATHER Cataracts 19 MOTHER Completed stroke 19 MOTHER Dysphasia 19 FATHER FH: cirrhosis 19 MOTHER Glaucoma 19 MOTHER Hypercholesterolemia 19 FATHER Hypertension 19 FATHER 19 MOTHER Myocardial infarction 19 FATHER Osteoporosis 19 MOTHER No Family History of: AIDS Abdominal aortic aneurysm [place]'s disease Alcoholism Alzheimer's disease Aphasia Asthma Cancer of mouth Colon cancer Congenital disease Congenital heart disease Coronary thrombosis Cystic fibrosis Deafness or hearing loss Dementia Diabetes mellitus Drug abuse Fibrocystic disease of breast Gastroenteritis Headache disorder Infertility Kidney disease Neoplasm Not obtainable due to adoption Parkinson's disease Prostate cancer Psychosocial problem Respiratory disorder Seizure disorder Severe allergy Thyroid disease Tuberculosis Visual disorder Allergies and Home Medications Allergies Coded Allergies: clindamycin (Unverified Allergy, Mild, HIVES, 11/21/09) meperidine (Unverified Allergy, Mild, HAS RECEIVED FENTANYL IN THE PAST, ) morphine (Unverified Allergy, Mild, 11/21/09) codeine (Verified Adverse Reaction, Unknown, NAUSEA, 11/21/09) Home Medications Albuterol Sulfate 1 Puff Puff, 2 PUFF IH QID, (Reported) 1 PUFF = 90 MCG Atorvastatin Calcium 10 Mg Tablet, 10 MG PO HS, (Reported) Cetirizine HCl 10 Mg Tablet, 10 MG PO DAILY, (Reported) Cholecalciferol (Vitamin D3) 2,000 Unit Capsule, 2,000 UNIT PO DAILY, (Reported) Cyanocobalamin (Vitamin B-12) 500 Mcg Tablet, 1,000 MCG PO DAILY, (Reported) Cyclobenzaprine HCl 10 Mg Tablet, 10 MG PO TID, (Reported) Donepezil HCl 10 Mg Tablet, 10 MG PO DAILY, (Reported) Enoxaparin Sodium 40 Mg/0.4 Ml Syringe, 40 MG SQ DAILY, (Reported) Famotidine 20 Mg Tablet, 20 MG PO DAILY, (Reported) Fluticasone/Salmeterol 12 Gm Hfa.aer.ad, 1 PUFF IH BID, (Reported) Hydrocodone/Acetaminophen 1 Each Tablet, 1 EACH PO TID PRN for PAIN-MODERATE, ( Reported) Meloxicam 15 Mg Tablet, 15 MG PO DAILY, (Reported) Metoprolol Succinate 100 Mg Tab.er.24h, 100 MG PO DAILY, (Reported) Multivitamin 1 Each Tablet, 1 EACH PO DAILY, (Reported) Olanzapine 20 Mg Tablet, 40 MG PO HS, (Reported) Ondansetron 8 Mg Tab.rapdis, 8 MG PO Q6H PRN for NAUSEA/VOMITING-1ST LINE, ( Reported) Pantoprazole Sodium 40 Mg Tablet.dr, 40 MG PO BID, (Reported) Sucralfate 1 Gm Tablet, 1 GM PO TID, (Reported) Patient Home Medication List Home Medication List Reviewed: Yes Physical Exam-Cardiology Physical Exam Vital Signs/I&O 07/10/18 07/10/18 07/10/18 07/10/18 02:06 04:42 07:24 07:39 Temp 97.0 97.4 Pulse 99 100 Resp 20 20 B/P (MAP) 115/76 (89) 141/80 (100) Pulse Ox 96 96 96 95 O2 Delivery Nasal Cannula Nasal Cannula Nasal Cannula Nasal Cannula O2 Flow Rate 4.00 4.00 4.00 3.00 07/10/18 07/10/18 07/10/18 08:00 08:24 10:54 Temp 96.4 Pulse 97 Resp 22 B/P (MAP) 134/96 (109) Pulse Ox 93 93 O2 Delivery Nasal Cannula Nasal Cannula Nasal Cannula O2 Flow Rate 4.00 4.00 4.00 07/10/18 00:00 Intake Total 960 ml Output Total 3950 ml Balance -2990 ml Capillary Refill : Less Than 3 Seconds Constitutional: appears stated age; No apparent distress; well-developed, well- nourished HEENT: PERRL; No normal ENT inspection, No TMs normal, No pharynx normal, No scleral icterus (R), No scleral icterus (L), No pale conjunctivae (R), No pale conjunctivae (L), No photophobia, No TM abnormal (R), No TM abnormal (L), No pharyngeal erythema, No tonsillar exudate, No other, No discharge, No EOMI; hearing is well preserved; No hard of hearing; oral hygience is good; No ulceration, No xanthelasmas are seen Neck: No non-tender, No full range of motion, No supple, No normal inspection, No carotid bruit, No limited range of motion, No lymphadenopathy (R), No lymphadenopathy (L), No tender lateral, No tender midline, No thyromegaly, No other; carotid pulses are 2 + bilaterally; No with good upstrokes Respiratory: No accessory muscle use, No respiratory distress, No chest tender , No chest expansion is symmetric; chest is bilaterally symmetric; No lungs clear to percussion; lungs clear to auscultation; No crackles, No rhonchi, No rales, No stridor, No wheezing, No pleural rub, No other Cardiovascular: regular rate-rhythm; No irregularly irregular, No extra beats, No parasternal heave is noted, No JVD, No edema, No bradycardia, No tachycardia , No point of maximal impulse, No cardiac thrills are palpable; S1 and S2; No gallop/S3, No gallop/S4, No diastolic murmur, No systolic murmur, No friction rub, No click, No other Gastrointestinal: No tender, No soft, No round, No distended, No pulsatile mass , No organomegaly, No guarding, No rebound, No tenderness, No hernia, No mass, No audible bowel sounds, No abnormal bowel sounds, No abdominal bruits, No spleenomegaly, No other Rectal: deferred Extremities: No normal range of motion, No non-tender, No normal inspection, No pedal edema, No calf tenderness, No normal capillary refill, No pelvis stable , No calf tenderness, No inflammation, No pedal edema, No slow capillary refill , No swelling, No other, No abrasion, No clubbing, No cyanosis, No ecchymosis, No laceration, No no lower extremity edema bilateral, No significant edema, No tenderness, No wound Neurologic/Psychiatric: other (drowsy, very sleepy.) Skin: No normal color, No warm/dry, No cyanosis, No cool, No diaphoresis, No damp, No ecchymosis, No jaundice, No mottled, No pallor, No rash, No tattoos/ piercings, No ulcerations, No rash on exposed areas, No ulcerations on exposed areas, No other Data Review Labs Laboratory Tests 07/09/18 15:33: Glucometer 97 07/10/18 07:30: White Blood Count 16.3H, Red Blood Count 4.62, Hemoglobin 13.0, Hematocrit 42, Mean Corpuscular Volume 92, Mean Corpuscular Hemoglobin 28, Mean Corpuscular Hemoglobin Concent 31L, Red Cell Distribution Width 16.6H, Platelet Count 465H, Mean Platelet Volume 9.5, Neutrophils (%) (Auto) 56, Lymphocytes (%) (Auto) 27, Monocytes (%) (Auto) 9, Eosinophils (%) (Auto) 6, Basophils (%) (Auto) 1, Neutrophils # (Auto) 9.2H, Lymphocytes # (Auto) 4.4H, Monocytes # (Auto) 1.5H, Eosinophils # (Auto) 1.0H, Basophils # (Auto) 0.1, Sodium Level 144, Potassium Level 4.0, Chloride Level 101, Carbon Dioxide Level 30, Anion Gap 13, Blood Urea Nitrogen 14, Creatinine 0.97, Estimat Glomerular Filtration Rate 59, BUN/ Creatinine Ratio 14, Glucose Level 99, Calcium Level 9.8, Corrected Calcium 10.0 , Phosphorus Level 5.1H, Magnesium Level 2.3, Total Bilirubin 0.3, Aspartate Amino Transf (AST/SGOT) 15, Alanine Aminotransferase (ALT/SGPT) 17, Alkaline Phosphatase 96, Total Protein 7.1, Albumin 3.7 Microbiology 07/05/18 Blood Culture - Preliminary, Resulted No growth 07/05/18 MRSA Screen - Final, Complete MRSA not isolated 07/05/18 Urine Culture - Final, Complete NO GROWTH A/P-Cardiology Assessment/Admission Diagnosis Severe hypertension, COPD, Pneumonia, Psychiatric disorder Plan Severe hypertension. Increase Toprol-XL 100 mg twice a day. Continue lisinopril at current dosage. Blood pressure much better this morning. Partly elevated blood pressure due to agitation as well. I will recommend an echocardiogram if not done recently. Thank you for your consultation. Please call me if you have any questions. Kirsten Reis MD, FACP, FACC, FSCAI, FHRS, CCDS Interventional Cardiology Cardiac Electrophysiology Vascular Medicine and Endovascular Interventions Clinical Quality Measures DVT/VTE Risk/Contraindication: Risk Factor Score Per Nursin RFS Level Per Nursing on Admit: 4+=Very High Miguel REIS MD Jul 10, 2018 1:08 pm
--- NOTE | 2018-07-10 13:49 | Occ Therapy Progress Note ---
Therapy Progress Note Per nrsg, pt had finally fallen asleep and not to wake. Will check on pt tomorrow. PILLO BABCOCK Jul 10, 2018 13:49
[2018-07-10 19:30] VITALS: BP 154/91
[2018-07-10] MEDS: MENTHOL/ZINC OXIDE (CALMOSEPTINE) 113 GM TUBE TOP SCH (20:30)
[2018-07-10] MEDS: OLANZapine 5 MG (ZyPREXA) TAB PO SCH (20:36)
[2018-07-11 00:37] VITALS: BP 145/91
[2018-07-11] MEDS: RT-ALBUTEROL/IPRATROPIUM 3 ML (DUONEB) VIAL INH SCH ×6 (02:00→23:34)
[2018-07-11 04:09] LABS: BASOPHILS # (AUTO) 0.1 10^3/uL (0.0-0.1); BASOPHILS % (AUTO) 1 % (0-10); EOSINOPHILS % (AUTO) 6 % (0-10); HEMATOCRIT 40 % (35-52); HEMOGLOBIN 12.3 G/DL (11.5-16.0); LYMPHOCYTES # (AUTO) 4.5 X 10^3 (1.0-4.0); LYMPHOCYTES % (AUTO) 25 % (12-44); MEAN CORPUSCULAR HEMOGLOBIN 28 PG (25-34); MEAN CORPUSCULAR HGB CONC 31 G/DL (32-36); MEAN CORPUSCULAR VOLUME 93 FL (80-99); MEAN PLATELET VOLUME 9.6 FL (7.4-10.4); MONOCYTES # (AUTO) 1.4 X 10^3 (0.0-1.0); MONOCYTES % (AUTO) 8 % (0-12); NEUTROPHILS # (AUTO) 10.6 X 10^3 (1.8-7.8); NEUTROPHILS % (AUTO) 61 % (42-75); PLATELET COUNT 425 10^3/uL (130-400); RED CELL DISTRIBUTION WIDTH 16.6 % (10.0-14.5); WHITE BLOOD COUNT 17.5 10^3/uL (4.3-11.0)
[2018-07-11] MEDS: PIPERACILLIN/TAZO 4.5 GM/NS 100 ML IV SCH ×6 (04:37→19:46)
[2018-07-11 04:39] LABS: ALANINE AMINOTRANSFERASE 18 U/L (0-55); ALBUMIN 3.2 GM/DL (3.2-4.5); ALKALINE PHOSPHATASE 79 U/L (40-136); BILIRUBIN,TOTAL 0.2 MG/DL (0.1-1.0); BUN/CREATININE RATIO 20; CALCIUM 8.9 MG/DL (8.5-10.1); CARBON DIOXIDE 31 MMOL/L (21-32); CHLORIDE 105 MMOL/L (98-107); CREATININE SERUM 0.89 MG/DL (0.60-1.30); GFR ESTIMATED > 60; GLUCOSE 99 MG/DL (70-105); MAGNESIUM 2.5 MG/DL (1.8-2.4); PHOSPHORUS 3.9 MG/DL (2.3-4.7); POTASSIUM 3.6 MMOL/L (3.6-5.0); SODIUM 145 MMOL/L (135-145); TOTAL PROTEIN 6.4 GM/DL (6.4-8.2)
[2018-07-11 05:56] LABS: EOSINOPHILS % (MANUAL) 5 %; LYMPHOCYTES % (MANUAL) 19 %; MONOCYTES % (MANUAL) 8 %; NEUTROPHILS % (MANUAL) 68 %
[2018-07-11] MEDS: LACTOBACILLUS ACIDOPHILUS (PROBIOTIC) CAPSULE PO SCH ×3 (06:33→17:47)
[2018-07-11 07:13] VITALS: BP 145/91
[2018-07-11] MEDS: RT-ADVAIR HFA 115/21 MCG PER PUFF IH SCH ×2 (07:14→21:36)
--- NOTE | 2018-07-11 07:43 | Progress Note (SOAP) ---
Subjective Time Seen by a Provider: 07:41 Subjective/Events-last exam Patient states she is less confused. Patient had 2 out of hands yesterday. Patient's chest x-ray Showing Improvement with Pneumonia. To Remove Oseguera Catheter Today. Physical Therapy to Evaluate. Hypertension Better Controlled Objective Exam Vital Signs Date Time Temp Pulse Resp B/P (MAP) Pulse Ox O2 Delivery O2 Flow Rate FiO2 07/11/18 07:13 80 94 07/11/18 07:13 96 Nasal Cannula 4.00 07/11/18 02:01 94 Nasal Cannula 4.00 07/11/18 00:37 96.9 80 20 145/91 (109) 98 Nasal Cannula 4.00 07/10/18 21:00 92 Nasal Cannula 4.00 07/10/18 20:15 Nasal Cannula 4.00 07/10/18 19:30 99.4 89 24 154/91 (112) 98 Nasal Cannula 4.00 07/10/18 13:42 92 Nasal Cannula 4.00 07/10/18 10:54 93 Nasal Cannula 4.00 07/10/18 08:24 Nasal Cannula 4.00 07/10/18 08:00 96.4 97 22 134/96 (109) 93 Nasal Cannula 4.00 I & O 07/11/18 07:00 Intake Total 980 ml Output Total 725 ml Balance 255 ml Capillary Refill : Less Than 3 Seconds General Appearance: No Apparent Distress, WD/WN HEENT: Normal ENT Inspection Neck: Full Range of Motion, Normal Inspection Respiratory: No Accessory Muscle Use, No Respiratory Distress, Decreased Breath Sounds Gastrointestinal: non tender, soft Results Lab Laboratory Tests 07/11/18 04:01: White Blood Count 17.5H, Red Blood Count 4.34L, Hemoglobin 12.3, Hematocrit 40, Mean Corpuscular Volume 93, Mean Corpuscular Hemoglobin 28, Mean Corpuscular Hemoglobin Concent 31L, Red Cell Distribution Width 16.6H, Platelet Count 425H, Mean Platelet Volume 9.6, Neutrophils (%) (Auto) 61, Lymphocytes (%) (Auto) 25, Monocytes (%) (Auto) 8, Eosinophils (%) (Auto) 6, Basophils (%) (Auto) 1, Neutrophils # (Auto) 10.6H, Lymphocytes # (Auto) 4.5H, Monocytes # (Auto) 1.4H, Eosinophils # (Auto) 1.0H, Basophils # (Auto) 0.1, Neutrophils % (Manual) 68, Lymphocytes % (Manual) 19, Monocytes % (Manual) 8, Eosinophils % (Manual) 5, Sodium Level 145, Potassium Level 3.6, Chloride Level 105, Carbon Dioxide Level 31, Anion Gap 9, Blood Urea Nitrogen 18, Creatinine 0.89, Estimat Glomerular Filtration Rate > 60, BUN/Creatinine Ratio 20, Glucose Level 99, Calcium Level 8.9, Corrected Calcium 9.5, Phosphorus Level 3.9, Magnesium Level 2.5H, Total Bilirubin 0.2, Aspartate Amino Transf (AST/SGOT) 19, Alanine Aminotransferase ( ALT/SGPT) 18, Alkaline Phosphatase 79, Total Protein 6.4, Albumin 3.2 Microbiology 07/05/18 Blood Culture - Preliminary, Resulted No growth 07/05/18 MRSA Screen - Final, Complete MRSA not isolated 07/05/18 Urine Culture - Final, Complete NO GROWTH Assessment/Plan Assessment/Plan Assess & Plan/Chief Complaint Fall with no fractures. Bilateral pneumonia. COPD. Bipolar. Dementia. Hypertension. History of tobaccoism. . 07/09/18. Fall with no fractures. Bilateral pneumonia. COPD. Bipolar. Dementia. Has some dementia. Hypertension. Confusion.. . 07/10/18. Fall with no fracture. Bilateral pneumonia. COPD. Bipolar. Dementia. Confusion. Agitation. Hypertension better. Patient not confused this morning and resting comfortably. Consult perinatal social worker. . 07/11/18 for with no fractures. Bilateral pneumonia improving. COPD. Bipolar. Confusion getting less according to patient. Agitation. Dementia. Consult mental health. Hypertension better Clinical Quality Measures DVT/VTE Risk/Contraindication: Risk Factor Score Per Nursin RFS Level Per Nursing on Admit: 4+=Very High JOCELYNE MEI DO Jul 11, 2018 07:43
[2018-07-11 08:00] VITALS: BP 141/63
--- NOTE | 2018-07-11 08:25 | Pulmonary Progress Note ---
YVESADRIENNE STUDENT 07/11/18 0825: Subjective Date Seen by a Provider: Jul 11, 2018 Subjective/Events-last exam Patient was sleeping on arrival with loud respirations. She did awaken with some touch. She denied confusion today and denied shortness of breath or changes in her breathing from baseline. She denied cough today. Review of Systems General: No Chills, No Night Sweats; Fatigue HEENT: Head Aches; No Sinus Congestion, No Sore Throat Pulmonary: No Dyspnea, No Cough, No Pleuritic Chest Pain Cardiovascular: No: Chest Pain, Palpitations, Paroxysmal Noc. Dyspnea, Edema Gastrointestinal: No: Nausea, Vomiting, Abdominal Pain, Diarrhea Genitourinary: No Dysuria, No Frequency Neurological: No: Weakness, Confusion Sepsis Event Evaluation Height, Weight, BMI Height: 5'7.00" Weight: 222lbs. 0.0oz. [id number]; 37.0 BMI Method:Stated Exam Exam Vital Signs Date Time Temp Pulse Resp B/P (MAP) Pulse Ox O2 Delivery O2 Flow Rate FiO2 07/11/18 07:13 80 94 07/11/18 07:13 96 Nasal Cannula 4.00 07/11/18 02:01 94 Nasal Cannula 4.00 07/11/18 00:37 96.9 80 20 145/91 (109) 98 Nasal Cannula 4.00 07/10/18 21:00 92 Nasal Cannula 4.00 07/10/18 20:15 Nasal Cannula 4.00 07/10/18 19:30 99.4 89 24 154/91 (112) 98 Nasal Cannula 4.00 07/10/18 13:42 92 Nasal Cannula 4.00 07/10/18 10:54 93 Nasal Cannula 4.00 07/10/18 08:24 Nasal Cannula 4.00 I & O 07/11/18 07:00 Intake Total 980 ml Output Total 725 ml Balance 255 ml Height & Weight Height: 5'7.00" Weight: 222lbs. 0.0oz. [id number]; 37.0 BMI Method:Stated General Appearance: No Apparent Distress, WD/WN HEENT: Pharynx Normal, Moist Mucous Membranes Neck: Full Range of Motion, Normal Inspection Respiratory: Chest Non Tender, No Accessory Muscle Use, No Respiratory Distress , Decreased Breath Sounds Cardiovascular: Regular Rate, Rhythm, No Murmur Capillary Refill: Less Than 3 Seconds Gastrointestinal: non tender, soft Extremity: Normal Capillary Refill, Normal Inspection, Non Tender, No Pedal Edema Neurologic/Psychiatric: Alert, Oriented x3, No Motor/Sensory Deficits, Depressed Affect Skin: Normal Color, Warm/Dry Lymphatic: No Adenopathy Results Lab Laboratory Tests 07/10/18 07:30 07/11/18 04:01 Assessment/Plan Assessment/Plan S/p fall Acute on chronic respiratory failure -Hx of tracheostomy and ARDS -Pt would benefit from home vent to mask -Oxygen at 4L Bilateral pneumonia -WBC count worsened to 17.5 today -Continue Zosyn -CXR on 07/10 showed improved aeration of the LLL and patchy infiltrate vs. atelectasis of right -PT may need bronchoscopy if she continues to have pulmonary infiltrates/PNA Severe oxygen dependent COPD with AE -SVNS, advair -Oxygen HTN with tachycardia -Toprol, lisinopril dementia vs ICU psychosis -Risperdal 0.5mg BID and PRN Haldol Depression CAD Obesity HX of bipolar/anxiety MERCEDES GARZA DO 07/11/18 1137: Subjective Time Seen by a Provider: 11:32 Subjective/Events-last exam Pt denies SOB, No productive, No fever. Exam Exam General Appearance: No Apparent Distress, WD/WN HEENT: Pharynx Normal, Moist Mucous Membranes Neck: Full Range of Motion, Normal Inspection Respiratory: Chest Non Tender, No Accessory Muscle Use, No Respiratory Distress Cardiovascular: Regular Rate, Rhythm, No Murmur Gastrointestinal: non tender, soft Extremity: Normal Capillary Refill, Normal Inspection, Non Tender Neurologic/Psychiatric: Alert, Oriented x3, No Motor/Sensory Deficits Skin: Normal Color, Warm/Dry Lymphatic: No Adenopathy Assessment/Plan Assessment/Plan S/p fall Acute on chronic respiratory failure -Hx of tracheostomy and ARDS -Pt would benefit from home vent to mask -Oxygen at 4L Bilateral pneumonia -WBC count worsened to 17.5 today -Continue Zosyn -CXR on 07/10 showed improved aeration of the LLL and patchy infiltrate vs. atelectasis of right -PT may need bronchoscopy if she continues to have pulmonary infiltrates/PNA Severe oxygen dependent COPD with AE -SVNS, advair -Oxygen HTN with tachycardia -Toprol, lisinopril dementia vs ICU psychosis -Risperdal 0.5mg BID and PRN Haldol Depression CAD Obesity HX of bipolar/anxiety KALEN-ADRIENNE HELTON STUDENT Jul 11, 2018 08:25 MERCEDES GARZA DO Jul 11, 2018 11:37
--- NOTE | 2018-07-11 09:56 | Physical Therapy Daily Note ---
PT Daily Note-Current Subjective Pt was in bed and agreed to PT. Pt was able to recite name, age, and date of . Mental Status Patient Orientation: Person Attachments: Oxygen (3.5L), Oseguera Catheter Transfers Therapy Code Descriptions/Definitions Functional [place] Measure: 0=Not Assessed/NA 4=Minimal Assistance 1=Total Assistance 5=Supervision or Setup 2=Maximal Assistance 6=Modified [place] 3=Moderate Assistance 7=Complete [place] Therapy Quality Codes: 6 Independent with activity with or without an assistive device 5 Patient requires set up or clean up by helper. Patient completes activity by themselves 4 Supervision or touching assist (CGA). [place] provide cues , steadying assist 3 The helper provides less than half the effort to complete the activity 2 The helper provides more than half the effort to complete the activity 1 Dependent. The helper does all the effort to complete an activity 7 Patient refused to complete or attempt activity 9 The patient did not perform the activity before the current illness or injury 88 Not attempted due to Medical conditions or safety concerns Transfers (B, C, W/C) (FIM): 2 Scootin Supine to/from Sit: 2 Sit to/from Stand: 3 Weight Bearing Right Lower Extremity: Right Full Weight Bearing Left Lower Extremity: Left Full Weight Bearing Gait Training Gait (FIM): 1 Distance (FIM): 1=up to 49 ft Distance: 25' Gait Level of Assist: 3 Gait Persons Needed: 2 Gait Assistive Device: FWW Pt amb with a shuffle pattern and was a mod A x2 for safety with FWW. Assessment Current Status: Fair Progress Pt required max A x2 to get from supine to EOB. Pt was able to scoot CGA on EOB. Pt was very emotional during tx ([facility]). Pt was mod A x2 sit<>stand EOB to FWW. Pt was able to amb with FWW and min A x2 25' in room to recliner with 4L of O2. Pt needed encouragement to amb to recliner due to pt crying "she can't walk that far." Pt is now in recliner with all needs met. PT Gear Machinist Goals Gear Machinist Goals PT Gear Machinist Goals Time Frame: Jul 15, 2018 Transfers (B,C,W/C) (FIM): 6 Gait (FIM): 6 Gait distance (FIM): 3=150 ft Gait Assistive Device: FWW PT Plan Problem List Problem List: Activity Tolerance, Functional Strength, Safety, Balance, Gait, Transfer, Bed Mobility, ROM Treatment/Plan Treatment Plan: Continue Plan of Care Treatment Plan: Bed Mobility, Education, Functional Activity Fede, Functional Strength, Gait, Safety, Therapeutic Exercise, Transfers Treatment Duration: Jul 15, 2018 Frequency: 6 times per week Estimated Hrs Per Day: .5 hour per day Patient and/or Family Agrees t: Yes Time/GCodes Time In: 920 Time Out: 930 Total Billed Treatment Time: 10 Total Billed Treatment 1 visit FA 10 min DELMI TORRES PT Jul 11, 2018 09:55
--- NOTE | 2018-07-11 09:59 | NUR ---
CM/SS, respond to consult. [facility] Behavioral Health consult, appointment is with Loren Geronimo tomorrow, 07/12/2018, at [phone]. Loren may come earlier if she is able to accommodate. Review results of interview/assessment regarding continuum of care post hospital.
[2018-07-11] MEDS: lisINopril 10 MG (PRINIVIL) TABLET PO SCH (10:11)
[2018-07-11] MEDS: PANTOPRAZOLE 40 MG (PROTONIX) TAB PO SCH ×2 (10:11→19:47)
[2018-07-11] MEDS: FAMOTIDINE 20 MG (PEPCID) TABLET PO SCH (10:11)
[2018-07-11] MEDS: HYDROcodone/APAP 10 MG/325 MG (LORTAB) TAB PO PRN ×2 (10:11→14:24)
[2018-07-11] MEDS: LORazepam 0.5 MG (ATIVAN) TABLET PO SCH ×3 (10:11→19:47)
[2018-07-11] MEDS: CYCLOBENZAPRINE 10 MG (FLEXERIL) TAB PO SCH ×3 (10:11→19:47)
[2018-07-11] MEDS: amLODIPine 5 MG (NORVASC) TAB PO SCH (10:11)
[2018-07-11] MEDS: LORATADINE (CLARITIN) 10 MG TAB PO SCH (10:12)
[2018-07-11] MEDS: guaiFENesin (MUCINEX) 600 MG TAB PO SCH ×2 (10:12→19:47)
[2018-07-11] MEDS: SUCRALFATE 1 GM (CARAFATE) TAB PO SCH ×3 (10:12→19:47)
[2018-07-11] MEDS: ENOXAPARIN 40 MG/0.4 ML (LOVENOX) SYR SC SCH (10:12)
[2018-07-11] MEDS: meTOprolol SUCCINATE 100 MG (TOPROL XL) TAB PO SCH ×2 (10:12→19:47)
[2018-07-11] MEDS: MENTHOL/ZINC OXIDE (CALMOSEPTINE) 113 GM TUBE TOP SCH ×2 (10:13→19:48)
[2018-07-11] MEDS: risperiDONE 1 MG (RisperDAL) TAB PO SCH ×2 (10:14→19:47)
[2018-07-11] MEDS: DONEPEZIL 10 MG (ARICEPT) TAB PO SCH (10:40)
--- NOTE | 2018-07-11 10:43 | Occupational Ther Daily Note ---
OT Current Status-Daily Note Subjective Pt alert, sitting in recliner. Pt agrees to therapy after encouragement. No c/ o pain. Mental Status/Objective Patient Orientation: Person, Confused, Place, Time, Situation Therapy Code Descriptions/Definitions Functional [place] Measure: 0=Not Assessed/NA 4=Minimal Assistance 1=Total Assistance 5=Supervision or Setup 2=Maximal Assistance 6=Modified [place] 3=Moderate Assistance 7=Complete [place] Attachments: IV, Oxygen Other Treatment After encouragement pt agrees to complete grooming. Giving pt supplies to complete oral care, pt able to set self up. Pt takes increased time to complete tasks. Pt then agrees to complete UE exercises against gravity, decreased ROM and strength. After therapy, pt sitting in recliner with call light/phone in reach. All needs met in room. OT Short Term Goals Short Term Goals 1=Demonstrate adherence to instructed precautions during ADL tasks. 2=Patient will verbalize/demonstrate understanding of assistive devices/ modifications for ADL. 3=Patient will improve strength/tolerance for activity to enable patient to perform ADL's. OT Halfway Goals Halfway Goals Time Frame: Jul 20, 2018 Grooming(FIM): 6 Bathing(FIM): 5 Upper Body Dressing(FIM): 5 Lower Body Dressing(FIM): 5 Toileting(FIM): 6 Toilet/Commode Transfer(FIM): 6 Additional Goals: 1-Demonstrate ADL Tasks, 2-Verbalize Understanding, 3- ImproveStrength/Fede 1=Demonstrate adherence to instructed precautions during ADL tasks. 2=Patient will verbalize/demonstrate understanding of assistive devices/ modifications for ADL. 3=Patient will improve strength/tolerance for activity to enable patient to perform ADL's. OT Education/Plan Problem List/Assessment Pt to benefit from skilled OT intervention for ADL training, transfers, strengthening, and safety education to increase level of independence and allow safe discharge plan. Discharge Recommendations Plan/Recommendations: Continue POC Treatment Plan/Plan of Care Patient would benefit from OT for education, treatment and training to promote independence in ADL's, mobility, safety and/or upper extremity function for ADL' s. Plan of Care: ADL Retraining, Functional Mobility, UE Funct Exercise/Act Treatment Duration: Jul 20, 2018 Frequency: 5 times per week Estimated Hrs Per Day: .25 hour per day Rehab Potential: Fair Time/GCodes Start Time: 10:25 Stop Time: 10:40 Total Time Billed (hr/min): 15 Billed Treatment Time 1 visit-FA 1 (15 min) PILLO BABCOCK Jul 11, 2018 10:43
--- NOTE | 2018-07-11 11:14 | Diagnostic Imaging Report ---
Indication: Pneumonia and COPD. Comparison made with prior examination from 07/10/18. Findings: There is cardiomegaly. There is some venous congestion. There are patchy bibasal infiltrates. There is no pleural effusion or pneumothorax. The mediastinum is unremarkable. There is some calcified pleural plaques in the right lung apex. Impression: Patchy bibasilar Infiltrates. Sarah and some central pulmonary venous congestion. Dictated by: Dictated on workstation # [id number]
--- NOTE | 2018-07-11 11:59 | Cardiology Progress Note ---
Cardiology SOAP Progress Note Subjective: No active complaints. Objective: I&O/Vital Signs 07/11/18 07/11/18 07/11/18 07/11/18 11:11 13:31 15:25 19:50 Temp 98.0 Pulse 93 Resp 20 B/P (MAP) 112/59 (76) Pulse Ox 94 96 96 O2 Delivery Nasal Cannula Nasal Cannula Nasal Cannula Nasal Cannula O2 Flow Rate 4.00 4.00 4.00 4.00 07/11/18 21:36 O2 Delivery Nasal Cannula O2 Flow Rate 4.00 07/11/18 00:00 Intake Total 580 ml Output Total 475 ml Balance 105 ml Weight (Pounds): 222 Weight (Ounces): 0.0 Weight (Calculated Kilograms): 100.468180 Constitutional: appears stated age; No apparent distress; well-developed, well- nourished Respiratory: No accessory muscle use, No respiratory distress, No chest tender , No chest expansion is symmetric; chest is bilaterally symmetric; No lungs clear to percussion; lungs clear to auscultation; No crackles, No rhonchi, No rales, No stridor, No wheezing, No pleural rub, No other Cardiovascular: regular rate-rhythm; No irregularly irregular, No extra beats, No parasternal heave is noted, No JVD, No edema, No bradycardia, No tachycardia , No point of maximal impulse, No cardiac thrills are palpable; S1 and S2; No gallop/S3, No gallop/S4, No diastolic murmur, No systolic murmur, No friction rub, No click, No other Gastrointestional: No tender, No soft, No round, No distended, No pulsatile mass, No organomegaly, No guarding, No rebound, No tenderness, No hernia, No mass, No audible bowel sounds, No abnormal bowel sounds, No abdominal bruits, No spleenomegaly, No other Extremities: No normal range of motion, No non-tender, No normal inspection, No pedal edema, No calf tenderness, No normal capillary refill, No pelvis stable , No calf tenderness, No inflammation, No pedal edema, No slow capillary refill , No swelling, No other, No abrasion, No clubbing, No cyanosis, No ecchymosis, No laceration, No no lower extremity edema bilateral, No significant edema, No tenderness, No wound Neurologic/Psychiatric: other (drowsy, very sleepy.) Skin: No normal color, No warm/dry, No cyanosis, No cool, No diaphoresis, No damp, No ecchymosis, No jaundice, No mottled, No pallor, No rash, No tattoos/ piercings, No ulcerations, No rash on exposed areas, No ulcerations on exposed areas, No other Results/Procedures: Labs Laboratory Tests 07/11/18 04:01: White Blood Count 17.5H, Red Blood Count 4.34L, Hemoglobin 12.3, Hematocrit 40, Mean Corpuscular Volume 93, Mean Corpuscular Hemoglobin 28, Mean Corpuscular Hemoglobin Concent 31L, Red Cell Distribution Width 16.6H, Platelet Count 425H, Mean Platelet Volume 9.6, Neutrophils (%) (Auto) 61, Lymphocytes (%) (Auto) 25, Monocytes (%) (Auto) 8, Eosinophils (%) (Auto) 6, Basophils (%) (Auto) 1, Neutrophils # (Auto) 10.6H, Lymphocytes # (Auto) 4.5H, Monocytes # (Auto) 1.4H, Eosinophils # (Auto) 1.0H, Basophils # (Auto) 0.1, Neutrophils % (Manual) 68, Lymphocytes % (Manual) 19, Monocytes % (Manual) 8, Eosinophils % (Manual) 5, Sodium Level 145, Potassium Level 3.6, Chloride Level 105, Carbon Dioxide Level 31, Anion Gap 9, Blood Urea Nitrogen 18, Creatinine 0.89, Estimat Glomerular Filtration Rate > 60, BUN/Creatinine Ratio 20, Glucose Level 99, Calcium Level 8.9, Corrected Calcium 9.5, Phosphorus Level 3.9, Magnesium Level 2.5H, Total Bilirubin 0.2, Aspartate Amino Transf (AST/SGOT) 19, Alanine Aminotransferase ( ALT/SGPT) 18, Alkaline Phosphatase 79, Total Protein 6.4, Albumin 3.2 Microbiology 07/05/18 Blood Culture - Final, Complete No growth 07/05/18 MRSA Screen - Final, Complete MRSA not isolated 07/05/18 Urine Culture - Final, Complete NO GROWTH A/P: Assessment/Dx: Severe hypertension, COPD, Pneumonia, Psychiatric disorder Plan: Severe hypertension. Continue Toprol-XL 100 mg twice a day. Continue lisinopril at current dosage. Blood pressure much better this morning. Partly elevated blood pressure due to agitation as well. Echocardiogram done yesterday demonstrates normal LVEF with no significant valvular heart disease. Thank you for your consultation. Please call me if you have any questions. Kirsten Reis MD, FACP, FACC, FSCAI, FHRS, CCDS Interventional Cardiology Cardiac Electrophysiology Vascular Medicine and Endovascular Interventions Miguel REIS MD Jul 11, 2018 11:59
[2018-07-11 15:25] VITALS: BP 112/59
[2018-07-11] MEDS: OLANZapine 5 MG (ZyPREXA) TAB PO SCH (19:47)
--- NOTE | 2018-07-11 22:30 | NUR ---
TOOK OVER CARE OF PATIENT FROM PREVIOUS NURSE. AGREE WITH PREVIOUS ASSESSMENT.
[2018-07-12] VITALS: BP 113/64
[2018-07-12] MEDS: HYDROcodone/APAP 10 MG/325 MG (LORTAB) TAB PO PRN ×2 (00:15→11:09)
[2018-07-12] MEDS: RT-ALBUTEROL/IPRATROPIUM 3 ML (DUONEB) VIAL INH SCH ×6 (01:16→22:25)
[2018-07-12 04:34] LABS: BASOPHILS # (AUTO) 0.1 10^3/uL (0.0-0.1); BASOPHILS % (AUTO) 0 % (0-10); EOSINOPHILS % (AUTO) 5 % (0-10); HEMATOCRIT 39 % (35-52); HEMOGLOBIN 11.8 G/DL (11.5-16.0); LYMPHOCYTES # (AUTO) 3.5 X 10^3 (1.0-4.0); LYMPHOCYTES % (AUTO) 19 % (12-44); MEAN CORPUSCULAR HEMOGLOBIN 29 PG (25-34); MEAN CORPUSCULAR HGB CONC 31 G/DL (32-36); MEAN CORPUSCULAR VOLUME 93 FL (80-99); MEAN PLATELET VOLUME 9.8 FL (7.4-10.4); MONOCYTES # (AUTO) 1.5 X 10^3 (0.0-1.0); MONOCYTES % (AUTO) 8 % (0-12); NEUTROPHILS # (AUTO) 12.6 X 10^3 (1.8-7.8); NEUTROPHILS % (AUTO) 68 % (42-75); PLATELET COUNT 413 10^3/uL (130-400); RED CELL DISTRIBUTION WIDTH 16.7 % (10.0-14.5); WHITE BLOOD COUNT 18.6 10^3/uL (4.3-11.0)
[2018-07-12 04:52] LABS: ALBUMIN 3.3 GM/DL (3.2-4.5); BILIRUBIN,TOTAL 0.2 MG/DL (0.1-1.0); CREATININE SERUM 1.14 MG/DL (0.60-1.30); MAGNESIUM 2.1 MG/DL (1.8-2.4); PHOSPHORUS 3.5 MG/DL (2.3-4.7); POTASSIUM 3.9 MMOL/L (3.6-5.0); TOTAL PROTEIN 6.3 GM/DL (6.4-8.2)
[2018-07-12] MEDS: PIPERACILLIN/TAZO 4.5 GM/NS 100 ML IV SCH ×2 (05:45)
[2018-07-12] MEDS: LACTOBACILLUS ACIDOPHILUS (PROBIOTIC) CAPSULE PO SCH ×3 (05:45→17:50)
[2018-07-12] MEDS: RT-ADVAIR HFA 115/21 MCG PER PUFF IH SCH ×2 (07:48→18:50)
--- NOTE | 2018-07-12 07:54 | Diagnostic Imaging Report ---
INDICATION: Pneumonia. TECHNIQUE: Single view chest 03:59 a.m. CORRELATION STUDY: 07/11/2018. FINDINGS: Patient is rotated on this study. Given this, the consolidation of the right lung base does appear to be slightly more prominent. Left lung base is stable. Heart size and mediastinum is generally stable. Calcified pleural parenchymal density in the right lung apex. IMPRESSION: 1. Bibasilar infiltrate, right greater than left. On the right, it does appear to be slightly more prominent from prior study. Dictated by: Dictated on workstation # [id number]
[2018-07-12 08:00] VITALS: BP 145/81
--- NOTE | 2018-07-12 08:05 | Pulmonary Progress Note ---
YVESADRIENNE Gregorio STUDENT 07/12/18 0805: Subjective Date Seen by a Provider: Jul 12, 2018 Time Seen by a Provider: 08:44 Subjective/Events-last exam Patient stated that she feels fine today. She noted that she did not have oxygen on overnight. She does not want to wear a CPAP/mask. She denies shortness of breath or cough. Review of Systems General: No Chills, No Night Sweats, No Fatigue HEENT: No Head Aches, No Sore Throat Pulmonary: No Dyspnea, No Cough, No Pleuritic Chest Pain Cardiovascular: No: Chest Pain, Palpitations, Orthopnea Gastrointestinal: No: Nausea, Vomiting, Abdominal Pain Genitourinary: No Dysuria, No Frequency Neurological: Confusion; No: Weakness Sepsis Event Evaluation Height, Weight, BMI Height: 5'7.00" Weight: 224lbs. 0.0oz. 101.663015fj; 37.0 BMI Method:Stated Exam Exam Vital Signs Date Time Temp Pulse Resp B/P (MAP) Pulse Ox O2 Delivery O2 Flow Rate FiO2 07/12/18 07:48 97 Nasal Cannula 4.00 07/12/18 01:17 94 Nasal Cannula 4.00 07/12/18 00:00 97.2 90 18 113/64 (80) 98 Nasal Cannula 4.00 07/11/18 21:36 Nasal Cannula 4.00 07/11/18 19:50 Nasal Cannula 4.00 07/11/18 15:25 98.0 93 20 112/59 (76) 96 Nasal Cannula 4.00 07/11/18 13:31 96 Nasal Cannula 4.00 07/11/18 11:11 94 Nasal Cannula 4.00 07/11/18 08:00 Nasal Cannula 4.00 07/11/18 08:00 97.8 81 20 141/63 (89) 93 Nasal Cannula 4.00 I & O 07/12/18 07:00 Intake Total 1500 ml Output Total 1100 ml Balance 400 ml Height & Weight Height: 5'7.00" Weight: 224lbs. 0.0oz. 101.790182vr; 37.0 BMI Method:Stated General Appearance: No Apparent Distress, WD/WN, Obese HEENT: PERRL/EOMI, Pharynx Normal, Moist Mucous Membranes Neck: Full Range of Motion, Normal Inspection Respiratory: Chest Non Tender, No Accessory Muscle Use, No Respiratory Distress Cardiovascular: Regular Rate, Rhythm, No Murmur Capillary Refill: Less Than 3 Seconds Gastrointestinal: normal bowel sounds, non tender, soft Extremity: Normal Capillary Refill, Normal Inspection, Non Tender, Pedal Edema Neurologic/Psychiatric: Alert, Oriented x3, No Motor/Sensory Deficits Skin: Normal Color, Warm/Dry Lymphatic: No Adenopathy Results Lab Laboratory Tests 07/11/18 04:01 07/12/18 03:35 Assessment/Plan Assessment/Plan S/p fall Acute on chronic respiratory failure -Hx of tracheostomy and ARDS -Oxygen at 4L Bilateral pneumonia -WBC count worsened to 18.6 today -Continue Zosyn -CXR showed bibasilar infiltrates R>L and Right slightly worse than prior study -PT may need bronchoscopy if she continues to have pulmonary infiltrates/PNA Severe oxygen dependent COPD with AE -SVNS, advair -Oxygen HTN with tachycardia -Toprol, lisinopril per cardiology dementia vs ICU psychosis -Risperdal 0.5mg BID and PRN Haldol Depression CAD Obesity HX of bipolar/anxiety MERCEDES GARZA DO 07/12/18 0936: Subjective Time Seen by a Provider: 09:30 Subjective/Events-last exam Denies SOB and no productive cough. Exam Exam General Appearance: No Apparent Distress, WD/WN, Obese HEENT: PERRL/EOMI, Pharynx Normal, Moist Mucous Membranes Neck: Full Range of Motion, Normal Inspection Respiratory: Chest Non Tender, No Accessory Muscle Use, No Respiratory Distress Cardiovascular: Regular Rate, Rhythm, No Murmur Capillary Refill: Less Than 3 Seconds Gastrointestinal: normal bowel sounds, non tender, soft Extremity: Normal Capillary Refill, Normal Inspection, Non Tender, Pedal Edema Neurologic/Psychiatric: Alert, Oriented x3, No Motor/Sensory Deficits Skin: Normal Color, Warm/Dry Lymphatic: No Adenopathy Assessment/Plan Assessment/Plan S/p fall Acute on chronic respiratory failure -Hx of tracheostomy and ARDS -Oxygen at 4L Bilateral pneumonia -WBC count worsened to 18.6 today -Change Zosyn to Merrem -repeat lawson cultures -CXR showed bibasilar infiltrates R>L and Right slightly worse than prior study -PT may need bronchoscopy if she continues to have pulmonary infiltrates/PNA Severe oxygen dependent COPD with AE -SVNS, advair -Oxygen HTN with tachycardia -Toprol, lisinopril per cardiology dementia vs ICU psychosis -Risperdal 0.5mg BID and PRN Haldol Depression CAD Obesity HX of bipolar/anxiety KALEN-ADRIENNE HELTON STUDENT Jul 12, 2018 08:05 MERCEDES GARZA DO Jul 12, 2018 09:36
[2018-07-12] MEDS: LORATADINE (CLARITIN) 10 MG TAB PO SCH (08:17)
[2018-07-12] MEDS: amLODIPine 5 MG (NORVASC) TAB PO SCH (08:17)
[2018-07-12] MEDS: FAMOTIDINE 20 MG (PEPCID) TABLET PO SCH (08:17)
[2018-07-12] MEDS: risperiDONE 1 MG (RisperDAL) TAB PO SCH ×2 (08:18→21:37)
[2018-07-12] MEDS: lisINopril 10 MG (PRINIVIL) TABLET PO SCH (08:18)
[2018-07-12] MEDS: CYCLOBENZAPRINE 10 MG (FLEXERIL) TAB PO SCH ×3 (08:18→21:37)
[2018-07-12] MEDS: meTOprolol SUCCINATE 100 MG (TOPROL XL) TAB PO SCH ×2 (08:18→21:37)
[2018-07-12] MEDS: DONEPEZIL 10 MG (ARICEPT) TAB PO SCH (08:18)
[2018-07-12] MEDS: SUCRALFATE 1 GM (CARAFATE) TAB PO SCH ×3 (08:18→21:37)
[2018-07-12] MEDS: guaiFENesin (MUCINEX) 600 MG TAB PO SCH ×2 (08:18→21:36)
[2018-07-12] MEDS: PANTOPRAZOLE 40 MG (PROTONIX) TAB PO SCH ×2 (08:18→21:37)
[2018-07-12] MEDS: LORazepam 0.5 MG (ATIVAN) TABLET PO SCH (08:18)
[2018-07-12] MEDS: ENOXAPARIN 40 MG/0.4 ML (LOVENOX) SYR SC SCH (08:19)
[2018-07-12] MEDS: MENTHOL/ZINC OXIDE (CALMOSEPTINE) 113 GM TUBE TOP SCH ×2 (08:21→21:39)
--- NOTE | 2018-07-12 08:33 | Progress Note (SOAP) ---
Subjective Time Seen by a Provider: 08:29 Subjective/Events-last exam Patient improving with physical therapy. Patient's left knee hurts when walks. X-ray left knee today and consult orthopedics. Chest x-ray slightly worse in right lung today. White blood cell count still elevated. Objective Exam Vital Signs Date Time Temp Pulse Resp B/P (MAP) Pulse Ox O2 Delivery O2 Flow Rate FiO2 07/12/18 07:48 97 Nasal Cannula 4.00 07/12/18 01:17 94 Nasal Cannula 4.00 07/12/18 00:00 97.2 90 18 113/64 (80) 98 Nasal Cannula 4.00 07/11/18 21:36 Nasal Cannula 4.00 07/11/18 19:50 Nasal Cannula 4.00 07/11/18 15:25 98.0 93 20 112/59 (76) 96 Nasal Cannula 4.00 07/11/18 13:31 96 Nasal Cannula 4.00 07/11/18 11:11 94 Nasal Cannula 4.00 I & O 07/12/18 07:00 Intake Total 1500 ml Output Total 1100 ml Balance 400 ml Capillary Refill : Less Than 3 Seconds General Appearance: No Apparent Distress, WD/WN HEENT: Normal ENT Inspection Neck: Full Range of Motion, Normal Inspection Respiratory: No Accessory Muscle Use, No Respiratory Distress, Decreased Breath Sounds Cardiovascular: Regular Rate, Rhythm, Normal Peripheral Pulses Gastrointestinal: non tender, soft Results Lab Laboratory Tests 07/12/18 03:35 Laboratory Tests 07/12/18 03:35: White Blood Count 18.6H, Red Blood Count 4.12L, Hemoglobin 11.8, Hematocrit 39, Mean Corpuscular Volume 93, Mean Corpuscular Hemoglobin 29, Mean Corpuscular Hemoglobin Concent 31L, Red Cell Distribution Width 16.7H, Platelet Count 413H, Mean Platelet Volume 9.8, Neutrophils (%) (Auto) 68, Lymphocytes (%) (Auto) 19, Monocytes (%) (Auto) 8, Eosinophils (%) (Auto) 5, Basophils (%) (Auto) 0, Neutrophils # (Auto) 12.6H, Lymphocytes # (Auto) 3.5, Monocytes # (Auto) 1.5H, Eosinophils # (Auto) 1.0H, Basophils # (Auto) 0.1, Sodium Level 142, Potassium Level 3.9, Chloride Level 103, Carbon Dioxide Level 28, Anion Gap 11, Blood Urea Nitrogen 23H, Creatinine 1.14, Estimat Glomerular Filtration Rate 49, BUN/ Creatinine Ratio 20, Glucose Level 104, Calcium Level 9.0, Corrected Calcium 9.6 , Phosphorus Level 3.5, Magnesium Level 2.1, Total Bilirubin 0.2, Aspartate Amino Transf (AST/SGOT) 17, Alanine Aminotransferase (ALT/SGPT) 20, Alkaline Phosphatase 83, B-Type Natriuretic Peptide 17.5, Total Protein 6.3L, Albumin 3.3 Microbiology 07/05/18 Blood Culture - Final, Complete No growth 07/05/18 MRSA Screen - Final, Complete MRSA not isolated 07/05/18 Urine Culture - Final, Complete NO GROWTH Assessment/Plan Assessment/Plan Assess & Plan/Chief Complaint Fall with no fractures. Bilateral pneumonia. COPD. Bipolar. Dementia. Hypertension. History of tobaccoism. . 07/09/18. Fall with no fractures. Bilateral pneumonia. COPD. Bipolar. Dementia. Has some dementia. Hypertension. Confusion.. . 07/10/18. Fall with no fracture. Bilateral pneumonia. COPD. Bipolar. Dementia. Confusion. Agitation. Hypertension better. Patient not confused this morning and resting comfortably. Consult social service worker. . 07/11/18 for with no fractures. Bilateral pneumonia improving. COPD. Bipolar. Confusion getting less according to patient. Agitation. Dementia. Consult mental health. Hypertension better. . 07/12/18. 4 with no fractures. Pneumonia. COPD. Bipolar. Dementia. Pain in the left knee. Leukocytosis Clinical Quality Measures DVT/VTE Risk/Contraindication: Risk Factor Score Per Nursin RFS Level Per Nursing on Admit: 4+=Very High JOCELYNE MEI DO Jul 12, 2018 08:33
--- NOTE | 2018-07-12 10:09 | Progress Note-Cardiology ---
Cardiology SOAP Progress Note Subjective: Sitting up in a recliner at the bedside. No c/o CP. Feels SOB is unchanged. C /O gen weakness. No c/o palpitations. C/O some dizziness with position changes , but no syncope or near syncope. Objective: I&O/Vital Signs 07/12/18 07/12/18 07/12/18 07:48 08:00 15:20 Temp 97.9 Pulse 92 Resp 16 B/P (MAP) 145/81 (102) Pulse Ox 97 97 96 O2 Delivery Nasal Cannula Nasal Cannula O2 Flow Rate 4.00 4.00 4.00 07/12/18 00:00 Intake Total 1230 ml Output Total 800 ml Balance 430 ml Weight (Pounds): 224 Weight (Ounces): 0.0 Weight (Calculated Kilograms): 101.346116 Constitutional: appears stated age, well-developed, well-nourished Respiratory: chest is bilaterally symmetric, other (diminished lower lobes bilat; dyspneic with conversation) Cardiovascular: regular rate-rhythm, S1 and S2 Gastrointestional: audible bowel sounds Extremities: no lower extremity edema bilateral Neurologic/Psychiatric: grossly intact Skin: No rash, No ulcerations Results/Procedures: Labs Laboratory Tests 07/12/18 03:35: White Blood Count 18.6H, Red Blood Count 4.12L, Hemoglobin 11.8, Hematocrit 39, Mean Corpuscular Volume 93, Mean Corpuscular Hemoglobin 29, Mean Corpuscular Hemoglobin Concent 31L, Red Cell Distribution Width 16.7H, Platelet Count 413H, Mean Platelet Volume 9.8, Neutrophils (%) (Auto) 68, Lymphocytes (%) (Auto) 19, Monocytes (%) (Auto) 8, Eosinophils (%) (Auto) 5, Basophils (%) (Auto) 0, Neutrophils # (Auto) 12.6H, Lymphocytes # (Auto) 3.5, Monocytes # (Auto) 1.5H, Eosinophils # (Auto) 1.0H, Basophils # (Auto) 0.1, Sodium Level 142, Potassium Level 3.9, Chloride Level 103, Carbon Dioxide Level 28, Anion Gap 11, Blood Urea Nitrogen 23H, Creatinine 1.14, Estimat Glomerular Filtration Rate 49, BUN/ Creatinine Ratio 20, Glucose Level 104, Calcium Level 9.0, Corrected Calcium 9.6 , Phosphorus Level 3.5, Magnesium Level 2.1, Total Bilirubin 0.2, Aspartate Amino Transf (AST/SGOT) 17, Alanine Aminotransferase (ALT/SGPT) 20, Alkaline Phosphatase 83, B-Type Natriuretic Peptide 17.5, Total Protein 6.3L, Albumin 3.3 07/12/18 08:50: Lactic Acid Level 1.29 Microbiology 07/05/18 Blood Culture - Final, Complete No growth 07/05/18 MRSA Screen - Final, Complete MRSA not isolated 07/05/18 Urine Culture - Final, Complete NO GROWTH Procedures NAME: CALEB [facility] REC#: [id number] PT STATUS: ADM IN : 1960 PHYSICIAN: JOCELYNE MEI DO ADMIT DATE: 07/05/18 Draft Date of Exam:07/12/18 CHEST 1 VIEW, AP/PA ONLY INDICATION: Pneumonia. TECHNIQUE: Single view chest 03:59 a.m. CORRELATION STUDY: 07/11/2018. FINDINGS: Patient is rotated on this study. Given this, the consolidation of the right lung base does appear to be slightly more prominent. Left lung base is stable. Heart size and mediastinum is generally stable. Calcified pleural parenchymal density in the right lung apex. IMPRESSION: 1. Bibasilar infiltrate, right greater than left. On the right, it does appear to be slightly more prominent from prior study. Dictated on workstation # [id number] Dict: 07/12/18 0711 Trans: 07/12/18 0753 [facility] [id number] Interpreted by: JONO PRESSLEY DO Electronically signed by: A/P: Assessment: HTN - controlled Acute on chronic exacerbation of COPD Pneumonia - management per medical/pulmonary services Dementia Echocardiogram of November [address] Fuentes showed LVEF 60%. Mild MR. PASP approx 20 mmHg Plan: Continued SOB Acute on chron exacerbation of COPD with pneumonia - management per medical/ pulmonary services Echocardiogram today to eval LVEF and structure Monitor lab closely Continue current medication regimen Physician Assessment Physician Assessment No cp or palp or syncope or shortness of breath at rest Lungs: good bilat air entry Cor: reg Ext: no/c/c/e A&R * As documented in our note above that I updated (italics) and as noted below * Continue current regimen * Monitor labs ADRIAN ESCOBAR [employer] MA[employer]GER [employer] Jul 12, 2018 10:09 KURT MATTHEW MD FACP FAC CCDS Jul 12, 2018 15:31
--- NOTE | 2018-07-12 10:33 | Occupational Ther Daily Note ---
OT Current Status-Daily Note Subjective Pt alert, sitting in recliner. Pt agrees to therapy. Pt c/o pain at end of therapy, rated 10/10, reported to nrsg. Mental Status/Objective Patient Orientation: Person, Place, Time, Situation Therapy Code Descriptions/Definitions Functional [place] Measure: 0=Not Assessed/NA 4=Minimal Assistance 1=Total Assistance 5=Supervision or Setup 2=Maximal Assistance 6=Modified [place] 3=Moderate Assistance 7=Complete [place] Attachments: IV, Oxygen ADL-Treatment After set up of sponge bath, pt able to complete all areas except feet and buttocks. Min A for sit to stand and CGA in standing then assist to cleanse buttocks after toileting. SPT with CGA using FWW from recliner to toilet. Min A for sit to stand on toilet transfer. Pt unable to lift UE's to lift tied hospital gown over head and to thread hospital gown up arms to shldrs, mod A. Pt able to don briefs over feet and up LE's then assist to hike over buttocks. Given supplies, pt able to complete oral care and grooming by self. After therapy, pt sitting in recliner with call light/phone in reach. All needs met in room. OT Short Term Goals Short Term Goals 1=Demonstrate adherence to instructed precautions during ADL tasks. 2=Patient will verbalize/demonstrate understanding of assistive devices/ modifications for ADL. 3=Patient will improve strength/tolerance for activity to enable patient to perform ADL's. OT High Wire Artist Goals Mcfp Goals Time Frame: Jul 20, 2018 Grooming(FIM): 6 Bathing(FIM): 5 Upper Body Dressing(FIM): 5 Lower Body Dressing(FIM): 5 Toileting(FIM): 6 Toilet/Commode Transfer(FIM): 6 Additional Goals: 1-Demonstrate ADL Tasks, 2-Verbalize Understanding, 3- ImproveStrength/Fede 1=Demonstrate adherence to instructed precautions during ADL tasks. 2=Patient will verbalize/demonstrate understanding of assistive devices/ modifications for ADL. 3=Patient will improve strength/tolerance for activity to enable patient to perform ADL's. OT Education/Plan Problem List/Assessment Pt to benefit from skilled OT intervention for ADL training, transfers, strengthening, and safety education to increase level of independence and allow safe discharge plan. Discharge Recommendations Plan/Recommendations: Continue POC Treatment Plan/Plan of Care Patient would benefit from OT for education, treatment and training to promote independence in ADL's, mobility, safety and/or upper extremity function for ADL' s. Plan of Care: ADL Retraining, Functional Mobility, UE Funct Exercise/Act Treatment Duration: Jul 20, 2018 Frequency: 5 times per week Estimated Hrs Per Day: .25 hour per day Rehab Potential: Fair Time/GCodes Start Time: 09:30 Stop Time: 10:15 Total Time Billed (hr/min): 45 Billed Treatment Time 1 visit-ADL 3 (45 min) PILLO BABCOCK Jul 12, 2018 10:33
[2018-07-12] MEDS: MEROPENEM 500 MG in NS (IVPB) 100 ML IV SCH ×3 (11:09→21:38)
--- NOTE | 2018-07-12 11:17 | Physical Therapy Daily Note ---
PT Daily Note-Current Subjective Patient in bed pre tx, agrees to PT, has 10/10 pain in left knee, nurse notified. Appearance Patient in bed post tx with nurse call, phone, tray, all needs met. Nurse in room. Mental Status Patient Orientation: Person, Place Attachments: Oxygen Transfers Therapy Code Descriptions/Definitions Functional [place] Measure: 0=Not Assessed/NA 4=Minimal Assistance 1=Total Assistance 5=Supervision or Setup 2=Maximal Assistance 6=Modified [place] 3=Moderate Assistance 7=Complete [place] Therapy Quality Codes: 6 Independent with activity with or without an assistive device 5 Patient requires set up or clean up by helper. Patient completes activity by themselves 4 Supervision or touching assist (CGA). [place] provide cues , steadying assist 3 The helper provides less than half the effort to complete the activity 2 The helper provides more than half the effort to complete the activity 1 Dependent. The helper does all the effort to complete an activity 7 Patient refused to complete or attempt activity 9 The patient did not perform the activity before the current illness or injury 88 Not attempted due to Medical conditions or safety concerns Transfers (B, C, W/C) (FIM): 2 Scootin Rollin Supine to/from Sit: 3 Sit to/from Stand: 4 It took patient 3 tries to stand due to right knee pain. Her right knee is audibly grinding. Weight Bearing Right Lower Extremity: Right Full Weight Bearing Left Lower Extremity: Left Full Weight Bearing Gait Training Gait (FIM): 1 Distance: 2' Gait Level of Assist: 4 Gait Assistive Device: FWW Patient ambulated a couple of feet forward and states that she cannot go any farther, she stepped backward to the bed and then a couple of short steps sideways toward the head of the bed and then sat. Exercises Seated Therapy Exercises: Ankle pumps, Long arc quads Seated Reps: 15 Treatments bed mobility and transfers, ambulation, functional strengthening Assessment Current Status: Poor Progress Patient SOB/wheezy throughout treatment has 4L of O2 through nasal canula. Poor endurance. PT Alf Goals Alf Goals PT Alf Goals Time Frame: Jul 15, 2018 Transfers (B,C,W/C) (FIM): 6 Gait (FIM): 6 Gait distance (FIM): 3=150 ft Gait Assistive Device: FWW PT Plan Problem List Problem List: Activity Tolerance, Functional Strength, Safety, Balance, Gait, Transfer, Bed Mobility, ROM Treatment/Plan Treatment Plan: Continue Plan of Care Treatment Plan: Bed Mobility, Education, Functional Activity Fede, Functional Strength, Gait, Safety, Therapeutic Exercise, Transfers Treatment Duration: Jul 15, 2018 Frequency: 6 times per week Estimated Hrs Per Day: .5 hour per day Patient and/or Family Agrees t: Yes Safety Risks/Education Patient Education: Gait Training, Transfer Techniques, Correct Positioning, Safety Issues Teaching Recipient: Patient Teaching Methods: Demonstration, Discussion Response to Teaching: Reinforcement Needed Time/GCodes Time In: 1055 Time Out: 1109 Total Billed Treatment Time: 14 Total Billed Treatment 1 visit FA 14' CLAU SALAZAR PT Jul 12, 2018 11:17
--- NOTE | 2018-07-12 14:51 | Behavioral Health Consult ---
Consult- Consult Date Seen by Provider: Jul 12, 2018 Time Seen by Provider: 13:30 Patient: Cary Bautista : 1960 Date: 07/12/2018 Referral: Dr. Ward CPT Code: 72181 Psychodiagnostic Examination, 1 unit(s) Start Time: 1330 Stop Time: 1450 Chief Complaint: Confusion and agitation Referral: Cary Bautista is a 58 year old female referred by Dr. Ward for a clinical diagnostic assessment. Information sources for this evaluation include self-report/observation and medical records. Presenting Problem: The presenting clinical problem is Confusion. Duration of the current problem was indeterminate given the available information. The primary clinical theme and problem discussed during the appointment was that Cary was admitted to [facility] after she fell at home. She has shown behaviors of agitation, confusion and possible psychosis during her hospital stay. Cary does have a reported history of Bipolar Disorder. She states that she has a family history of early Dementia and had requested Dr. Ward place her on Aricept some time ago. Cary was very drowsy when this provider saw her. She stated that she had just taken her Ativan and it made her very tired. She was able to become alert and participate with some prompting and verbal stimulation. Cary was administered the Mini-mental State Exam. She achieved a score of 28 out of a possible 30 points. She only omitted one word on recall and believed the day of the week was Sunday rather than Sunday. Her score does not indicate any cognitive deficit. Cary was able to provide details of how she fell prior to hospitalization. She provided a good history of her mental health treatment. She receives psychiatric medication management from GARCIA Gonzalez at [facility]. She had a case resource manager in the past and believes she needs to set that back up since she is back in her own home. Cary does acknowledge having hallucinations associated with her Bipolar Disorder. She states it has been over two weeks since this last occurred and consisted of people that others could not see. Cary does have significant COPD as well as a current infection with pneumonia. Her altered cognitive status that has been observed during her current hospital stay could be related to her infection or lack of oxygen. Her current cognitive presentation at the time of this providers evaluation does not indicate cognitive deficit. Her current cognitive functioning would not prevent her from self-care in her own home. Diagnostic Impressions: ICD-10: F31.4 Bipolar I Disorder, Most Recent Episode Depressed, Severe without Psychotic Features (By History) Initial Treatment Plan/Recommendations: The recommendations at this time include the following: Continue to treat medical symptoms and monitor any further changes in cognitive functioning. Establish outpatient services that include case management with [facility] at discharge. PAULINA GREGG Jul 12, 2018 14:51
--- NOTE | 2018-07-12 15:49 | NUR ---
Pt states she was a little confused but wanted Communion. Casting Operator Helper provided Communion and prayer.
[2018-07-12 16:35] VITALS: BP 139/83
[2018-07-12] MEDS: OLANZapine 5 MG (ZyPREXA) TAB PO SCH (21:36)
[2018-07-12] MEDS: LORazepam 1 MG (ATIVAN) TAB PO SCH (21:36)
[2018-07-12 21:57] LABS: BILIRUBIN,URINE NEGATIVE (NEGATIVE); CLARITY,URINE CLEAR; COLOR,URINE YELLOW; GLUCOSE, URINE (UA) NEGATIVE (NEGATIVE); KETONES,URINE NEGATIVE (NEGATIVE); LEUKOCYTE ESTERASE ,URINE 2+ (NEGATIVE); NITRITE,URINE NEGATIVE (NEGATIVE); PH,URINE 6.5 (5-9); PROTEIN,URINE NEGATIVE (NEGATIVE); UROBILINOGEN,URINE NORMAL (NORMAL)
[2018-07-12 22:14] LABS: YEAST,URINE SMALL /HPF
[2018-07-13] VITALS: BP 144/78
[2018-07-13] MEDS: RT-ALBUTEROL/IPRATROPIUM 3 ML (DUONEB) VIAL INH SCH ×6 (02:44→22:20)
[2018-07-13] MEDS: MEROPENEM 500 MG in NS (IVPB) 100 ML IV SCH ×4 (04:38→21:23)
[2018-07-13 04:42] LABS: BASOPHILS # (AUTO) 0.1 10^3/uL (0.0-0.1); BASOPHILS % (AUTO) 0 % (0-10); EOSINOPHILS # (AUTO) 0.9 10^3/uL (0.0-0.3); EOSINOPHILS % (AUTO) 5 % (0-10); HEMATOCRIT 44 % (35-52); HEMOGLOBIN 13.7 G/DL (11.5-16.0); LYMPHOCYTES # (AUTO) 3.3 X 10^3 (1.0-4.0); LYMPHOCYTES % (AUTO) 19 % (12-44); MEAN CORPUSCULAR HEMOGLOBIN 29 PG (25-34); MEAN CORPUSCULAR HGB CONC 31 G/DL (32-36); MEAN CORPUSCULAR VOLUME 92 FL (80-99); MEAN PLATELET VOLUME 10.1 FL (7.4-10.4); MONOCYTES # (AUTO) 1.8 X 10^3 (0.0-1.0); MONOCYTES % (AUTO) 10 % (0-12); NEUTROPHILS # (AUTO) 11.4 X 10^3 (1.8-7.8); NEUTROPHILS % (AUTO) 66 % (42-75); PLATELET COUNT 410 10^3/uL (130-400); RED CELL DISTRIBUTION WIDTH 16.9 % (10.0-14.5); WHITE BLOOD COUNT 17.5 10^3/uL (4.3-11.0)
[2018-07-13 05:03] LABS: ALANINE AMINOTRANSFERASE 20 U/L (0-55); ALBUMIN 3.8 GM/DL (3.2-4.5); ALKALINE PHOSPHATASE 86 U/L (40-136); BILIRUBIN,TOTAL 0.3 MG/DL (0.1-1.0); BUN/CREATININE RATIO 15; CALCIUM 9.7 MG/DL (8.5-10.1); CARBON DIOXIDE 30 MMOL/L (21-32); CHLORIDE 102 MMOL/L (98-107); CREATININE SERUM 0.87 MG/DL (0.60-1.30); GFR ESTIMATED > 60; GLUCOSE 94 MG/DL (70-105); MAGNESIUM 2.2 MG/DL (1.8-2.4); PHOSPHORUS 3.2 MG/DL (2.3-4.7); POTASSIUM 3.7 MMOL/L (3.6-5.0); SODIUM 142 MMOL/L (135-145); TOTAL PROTEIN 7.3 GM/DL (6.4-8.2)
[2018-07-13] MEDS: LACTOBACILLUS ACIDOPHILUS (PROBIOTIC) CAPSULE PO SCH ×3 (06:05→16:49)
[2018-07-13] MEDS: HYDROcodone/APAP 10 MG/325 MG (LORTAB) TAB PO PRN ×2 (06:06→15:35)
--- NOTE | 2018-07-13 07:47 | NUR ---
patient using the restroom at this time; RT will come back in a little while to do svn bt
--- NOTE | 2018-07-13 07:49 | Pulmonary Progress Note ---
Subjective Time Seen by a Provider: 07:48 Subjective/Events-last exam Pt has no complaints. she has nonproductive cough Sepsis Event Evaluation Height, Weight, BMI Height: 5'7.00" Weight: 223lbs. 0.0oz. 101.153399nc; 37.0 BMI Method:Stated Focused Exam Lactate Level 07/12/18 08:50: Lactic Acid Level 1.29 Exam Exam Vital Signs Date Time Temp Pulse Resp B/P (MAP) Pulse Ox O2 Delivery O2 Flow Rate FiO2 07/13/18 02:44 95 Nasal Cannula 4.00 07/13/18 00:00 97.8 96 20 144/78 (100) 97 Nasal Cannula 4.00 07/12/18 22:25 93 Nasal Cannula 4.00 07/12/18 20:00 Nasal Cannula 4.00 07/12/18 18:50 96 Nasal Cannula 4.00 07/12/18 16:35 98.4 86 22 139/83 (101) 97 4.00 07/12/18 15:20 96 Nasal Cannula 4.00 07/12/18 08:00 Nasal Cannula 4.00 07/12/18 08:00 97.9 92 16 145/81 (102) 97 4.00 07/12/18 07:48 97 Nasal Cannula 4.00 I & O 07/13/18 07:00 Intake Total 2120 ml Output Total 700 ml Balance 1420 ml Height & Weight Height: 5'7.00" Weight: 223lbs. 0.0oz. 101.426100qb; 37.0 BMI Method:Stated General Appearance: No Apparent Distress, WD/WN, Obese HEENT: PERRL/EOMI, Pharynx Normal, Moist Mucous Membranes Neck: Full Range of Motion, Normal Inspection Respiratory: Chest Non Tender, No Accessory Muscle Use, No Respiratory Distress Cardiovascular: Regular Rate, Rhythm, No Murmur Capillary Refill: Less Than 3 Seconds Gastrointestinal: normal bowel sounds, non tender, soft Extremity: Normal Capillary Refill, Normal Inspection, Non Tender, Pedal Edema Neurologic/Psychiatric: Alert, Oriented x3, No Motor/Sensory Deficits Skin: Normal Color, Warm/Dry Lymphatic: No Adenopathy Results Lab Laboratory Tests 07/12/18 03:35 07/13/18 04:05 Assessment/Plan Assessment/Plan S/p fall Acute on chronic respiratory failure -Hx of tracheostomy and ARDS -Oxygen at 4L Bilateral pneumonia - Persistent leukocytosis -Zosyn changed to Merrem -repeat lawson cultures -CXR showed bibasilar infiltrates R>L and Right slightly worse than prior study -PT may need bronchoscopy if she continues to have pulmonary infiltrates/PNA Severe oxygen dependent COPD with AE -SVNS, advair -Oxygen HTN with tachycardia -Toprol, lisinopril per cardiology dementia vs ICU psychosis -Risperdal 0.5mg BID and PRN Haldol Depression CAD Obesity HX of bipolar/anxiety MERCEDES GARZA DO Jul 13, 2018 07:49
[2018-07-13 08:00] VITALS: BP 151/84
[2018-07-13] MEDS: RT-ADVAIR HFA 115/21 MCG PER PUFF IH SCH ×2 (08:00→18:26)
[2018-07-13] MEDS: ENOXAPARIN 40 MG/0.4 ML (LOVENOX) SYR SC SCH (09:44)
[2018-07-13] MEDS: lisINopril 10 MG (PRINIVIL) TABLET PO SCH (09:44)
[2018-07-13] MEDS: CYCLOBENZAPRINE 10 MG (FLEXERIL) TAB PO SCH ×3 (09:44→21:24)
[2018-07-13] MEDS: guaiFENesin (MUCINEX) 600 MG TAB PO SCH ×2 (09:44→21:24)
[2018-07-13] MEDS: DONEPEZIL 10 MG (ARICEPT) TAB PO SCH (09:45)
[2018-07-13] MEDS: FAMOTIDINE 20 MG (PEPCID) TABLET PO SCH (09:45)
[2018-07-13] MEDS: amLODIPine 5 MG (NORVASC) TAB PO SCH (09:45)
[2018-07-13] MEDS: LORazepam 0.5 MG (ATIVAN) TABLET PO SCH (09:45)
[2018-07-13] MEDS: meTOprolol SUCCINATE 100 MG (TOPROL XL) TAB PO SCH ×2 (09:45→21:24)
[2018-07-13] MEDS: risperiDONE 1 MG (RisperDAL) TAB PO SCH ×2 (09:45→21:24)
[2018-07-13] MEDS: PANTOPRAZOLE 40 MG (PROTONIX) TAB PO SCH ×2 (09:45→21:24)
[2018-07-13] MEDS: SUCRALFATE 1 GM (CARAFATE) TAB PO SCH ×3 (09:45→21:24)
[2018-07-13] MEDS: LORATADINE (CLARITIN) 10 MG TAB PO SCH (09:45)
[2018-07-13] MEDS: MENTHOL/ZINC OXIDE (CALMOSEPTINE) 113 GM TUBE TOP SCH ×2 (09:46→21:25)
--- NOTE | 2018-07-13 10:42 | Diagnostic Imaging Report ---
INDICATION: Pneumonia. COMPARISON: 07/12/2018. FINDINGS: Frontal and lateral views of the chest demonstrate persistent but decreasing basilar infiltrates. Pleural-based calcifications are seen in the right. The heart is prominent without pulmonary edema. There is no pneumothorax or effusion. Osseous structures are stable. IMPRESSION: Persistent but decreasing basilar infiltrates. Dictated by: Dictated on workstation # [id number]
--- NOTE | 2018-07-13 11:15 | Progress Note-Hospitalist ---
Subjective HPI/CC On Admission Date Seen by Provider: Jul 13, 2018 Time Seen by Provider: 12:45 CC: Respiratory insufficiency with bilateral pneumonia HPI: This is a 58-year-old white female known to me from just recent discharge from inpatient rehab directly to the fdc after 1 month of inpatient rehab in 8 weeks at [facility] for acute on chronic respiratory failure requiring trach and PEG tube both discontinued while inpatient rehab stay who presented to the ER only 2 days after she moved into her own apartment and [place] and began feeling ill and had a fall with increased oxygen requirements and was found to have bilateral pneumonia with respiratory insufficiency. She has been placed in the ICU and Dr. Berman has been consulted. She is at high risk for reintubation. I have restarted most of her home medications including her emotional problem regimen and she reports she is not in any pain but feeling better. Subjective/Events-last exam Patient about the same Left knee still hurts and wants an injection but no ortho coverage until Sunday BM+ O2 maintained Pt appears very declined since last seen Pt appears to be progressing towards hospice status if decline continues Review of Systems General: Fatigue Pulmonary: Dyspnea Focused Exam Lactate Level 07/12/18 08:50: Lactic Acid Level 1.29 Objective Exam Vital Signs Vital Signs Date Time Temp Pulse Resp B/P (MAP) Pulse Ox O2 Delivery O2 Flow Rate FiO2 07/13/18 11:06 97 Nasal Cannula 3.00 07/13/18 08:00 98.6 91 24 151/84 (106) 07/08/18 16:55 36 Capillary Refill : Less Than 3 Seconds General Appearance: No Apparent Distress, WD/WN, Chronically ill, Obese Respiratory: Chest Non Tender, No Accessory Muscle Use, No Respiratory Distress , Decreased Breath Sounds Neurologic/Psychiatric: Alert, Oriented x3, No Motor/Sensory Deficits, Normal Mood/Affect Results/Procedures Lab Laboratory Tests 07/13/18 04:05 Patient resulted labs reviewed. Assessment/Plan Assessment and Plan Assess & Plan/Chief Complaint Assessment: Bilateral pneumonia Fall at home Respiratory insufficiency acute on chronic Severe debility following critical illness and vent dependence just DC from IRF after 1 month of care to fdc for 3 weeks then her own apartment for only 2 days s/p Trach now DC last month s/p PEG tube now DC last month Nausea- chronic Mental illness precluding fast recovery Current smoker unsure of her status now COPD Status post pneumonia 05/28 Leukocytosis Left knee pain since fall Plan: Monitor closely Vapotherm Monitor lungs Disposition home will not be an option Critical Care Critical Care: Critically Ill Patient Clinical Quality Measures DVT/VTE Risk/Contraindication: Risk Factor Score Per Nursin RFS Level Per Nursing on Admit: 4+=Very High SAMANTHA COLLIER DO Jul 13, 2018 11:15
--- NOTE | 2018-07-13 12:57 | Physical Therapy Daily Note ---
PT Daily Note-Current Subjective States that she is doing okay. Transfers Therapy Code Descriptions/Definitions Functional [place] Measure: 0=Not Assessed/NA 4=Minimal Assistance 1=Total Assistance 5=Supervision or Setup 2=Maximal Assistance 6=Modified [place] 3=Moderate Assistance 7=Complete [place] Therapy Quality Codes: 6 Independent with activity with or without an assistive device 5 Patient requires set up or clean up by helper. Patient completes activity by themselves 4 Supervision or touching assist (CGA). [place] provide cues , steadying assist 3 The helper provides less than half the effort to complete the activity 2 The helper provides more than half the effort to complete the activity 1 Dependent. The helper does all the effort to complete an activity 7 Patient refused to complete or attempt activity 9 The patient did not perform the activity before the current illness or injury 88 Not attempted due to Medical conditions or safety concerns Weight Bearing Right Lower Extremity: Right Full Weight Bearing Left Lower Extremity: Left Full Weight Bearing Exercises Seated Therapy Exercises: LE Protocol Seated Reps: 20 Assessment Current Status: Excellent Progress Patient had significant fatigue today. PT Fci Goals Fci Goals PT Jump Roll Operator Goals Time Frame: Jul 15, 2018 Transfers (B,C,W/C) (FIM): 6 Gait (FIM): 6 Gait distance (FIM): 3=150 ft Gait Assistive Device: FWW PT Plan Treatment/Plan Treatment Plan: Continue Plan of Care Treatment Plan: Bed Mobility, Education, Functional Activity Fede, Functional Strength, Gait, Safety, Therapeutic Exercise, Transfers Treatment Duration: Jul 15, 2018 Frequency: 6 times per week Estimated Hrs Per Day: .5 hour per day Patient and/or Family Agrees t: Yes Time/GCodes Time In: 1245 Time Out: 1255 Total Billed Treatment Time: 10 Total Billed Treatment 1, EX x 10' SARAH COLLAZO PT Jul 13, 2018 12:57
[2018-07-13 16:15] VITALS: BP 155/80
--- NOTE | 2018-07-13 17:57 | Progress Note-Cardiology ---
Cardiology SOAP Progress Note Subjective: Notes gen malaise. No cp or palp or syncope Objective: I&O/Vital Signs 07/13/18 07/13/18 07/13/18 07/13/18 08:00 08:00 08:00 11:06 Temp 98.6 Pulse 91 Resp 24 B/P (MAP) 151/84 (106) Pulse Ox 96 98 97 O2 Delivery Nasal Cannula Nasal Cannula Nasal Cannula Nasal Cannula O2 Flow Rate 4.00 4.00 4.00 3.00 07/13/18 07/13/18 07/13/18 15:28 16:10 16:15 Temp 97.9 97.9 Pulse 89 Resp 20 B/P (MAP) 155/80 (105) Pulse Ox 93 99 O2 Delivery Nasal Cannula Nasal Cannula O2 Flow Rate 3.00 3.00 07/13/18 00:00 Intake Total 2020 ml Output Total 700 ml Balance 1320 ml Weight (Pounds): 223 Weight (Ounces): 0.0 Weight (Calculated Kilograms): 101.168483 Constitutional: appears stated age, well-developed, well-nourished Respiratory: chest is bilaterally symmetric, other (diminished lower lobes bilat; dyspneic with conversation) Cardiovascular: regular rate-rhythm, S1 and S2 Gastrointestional: audible bowel sounds Extremities: no lower extremity edema bilateral Neurologic/Psychiatric: grossly intact Skin: No rash, No ulcerations Results/Procedures: Labs Laboratory Tests 07/12/18 21:35: Urine Color YELLOW, Urine Clarity CLEAR, Urine pH 6.5, Urine Specific [place] 1.015L, Urine Protein NEGATIVE, Urine Glucose (UA) NEGATIVE, Urine Ketones NEGATIVE, Urine Nitrite NEGATIVE, Urine Bilirubin NEGATIVE, Urine Urobilinogen NORMAL, Urine Leukocyte Esterase 2+H, Urine RBC (Auto) NEGATIVE, Urine RBC NONE , Urine WBC 5-10H, Urine Squamous Epithelial Cells 2-5, Urine Crystals NONE, Urine Bacteria NONE, Urine Casts NONE, Urine Mucus NEGATIVE, Urine Yeast SMALL, Urine Culture Indicated YES 07/13/18 04:05: White Blood Count 17.5H, Red Blood Count 4.78, Hemoglobin 13.7, Hematocrit 44, Mean Corpuscular Volume 92, Mean Corpuscular Hemoglobin 29, Mean Corpuscular Hemoglobin Concent 31L, Red Cell Distribution Width 16.9H, Platelet Count 410H, Mean Platelet Volume 10.1, Neutrophils (%) (Auto) 66, Lymphocytes (%) (Auto) 19 , Monocytes (%) (Auto) 10, Eosinophils (%) (Auto) 5, Basophils (%) (Auto) 0, Neutrophils # (Auto) 11.4H, Lymphocytes # (Auto) 3.3, Monocytes # (Auto) 1.8H, Eosinophils # (Auto) 0.9H, Basophils # (Auto) 0.1, Sodium Level 142, Potassium Level 3.7, Chloride Level 102, Carbon Dioxide Level 30, Anion Gap 10, Blood Urea Nitrogen 13, Creatinine 0.87, Estimat Glomerular Filtration Rate > 60, BUN/ Creatinine Ratio 15, Glucose Level 94, Calcium Level 9.7, Corrected Calcium 9.9 , Phosphorus Level 3.2, Magnesium Level 2.2, Total Bilirubin 0.3, Aspartate Amino Transf (AST/SGOT) 19, Alanine Aminotransferase (ALT/SGPT) 20, Alkaline Phosphatase 86, Total Protein 7.3, Albumin 3.8 Microbiology 07/12/18 Blood Culture - Preliminary, Resulted No growth 07/05/18 MRSA Screen - Final, Complete MRSA not isolated 07/05/18 Urine Culture - Final, Complete NO GROWTH Laboratory Tests 07/12/18 03:35 07/13/18 04:05 A/P: Assessment: HTN - fair to good control Acute on chronic exacerbation of COPD Pneumonia - management per medical/pulmonary services Dementia Echocardiogram of November [address] Fuentes showed LVEF 60%. Mild MR. PASP approx 20 mmHg Plan: * Continue current regimen * Monitor labs KURT MATTHEW MD FACP [facility] CCDS Jul 13, 2018 17:57
[2018-07-13] MEDS: LORazepam 1 MG (ATIVAN) TAB PO SCH (21:24)
[2018-07-13] MEDS: OLANZapine 5 MG (ZyPREXA) TAB PO SCH (21:24)
[2018-07-13 23:00] VITALS: BP 134/73
[2018-07-14] MEDS: RT-ALBUTEROL/IPRATROPIUM 3 ML (DUONEB) VIAL INH SCH ×6 (02:27→22:37)
[2018-07-14] MEDS: MEROPENEM 500 MG in NS (IVPB) 100 ML IV SCH ×4 (03:40→21:08)
[2018-07-14] MEDS: LACTOBACILLUS ACIDOPHILUS (PROBIOTIC) CAPSULE PO SCH ×3 (06:24→16:40)
[2018-07-14 06:49] LABS: BASOPHILS % (AUTO) 0 % (0-10); EOSINOPHILS # (AUTO) 0.6 10^3/uL (0.0-0.3); EOSINOPHILS % (AUTO) 4 % (0-10); HEMATOCRIT 38 % (35-52); HEMOGLOBIN 11.7 G/DL (11.5-16.0); LYMPHOCYTES # (AUTO) 2.8 X 10^3 (1.0-4.0); LYMPHOCYTES % (AUTO) 21 % (12-44); MEAN CORPUSCULAR HEMOGLOBIN 28 PG (25-34); MEAN CORPUSCULAR HGB CONC 31 G/DL (32-36); MEAN CORPUSCULAR VOLUME 92 FL (80-99); MEAN PLATELET VOLUME 9.9 FL (7.4-10.4); MONOCYTES # (AUTO) 1.2 X 10^3 (0.0-1.0); MONOCYTES % (AUTO) 9 % (0-12); NEUTROPHILS # (AUTO) 9.1 X 10^3 (1.8-7.8); NEUTROPHILS % (AUTO) 66 % (42-75); PLATELET COUNT 402 10^3/uL (130-400); RED CELL DISTRIBUTION WIDTH 16.7 % (10.0-14.5); WHITE BLOOD COUNT 13.7 10^3/uL (4.3-11.0)
[2018-07-14 07:04] LABS: ALANINE AMINOTRANSFERASE 15 U/L (0-55); ALBUMIN 3.3 GM/DL (3.2-4.5); ALKALINE PHOSPHATASE 89 U/L (40-136); BILIRUBIN,TOTAL 0.2 MG/DL (0.1-1.0); BUN/CREATININE RATIO 17; CALCIUM 8.9 MG/DL (8.5-10.1); CARBON DIOXIDE 27 MMOL/L (21-32); CHLORIDE 105 MMOL/L (98-107); CREATININE SERUM 0.78 MG/DL (0.60-1.30); GFR ESTIMATED > 60; GLUCOSE 98 MG/DL (70-105); MAGNESIUM 2.3 MG/DL (1.8-2.4); PHOSPHORUS 3.4 MG/DL (2.3-4.7); POTASSIUM 3.6 MMOL/L (3.6-5.0); SODIUM 143 MMOL/L (135-145); TOTAL PROTEIN 6.2 GM/DL (6.4-8.2)
[2018-07-14] MEDS: RT-ADVAIR HFA 115/21 MCG PER PUFF IH SCH ×2 (07:14→19:48)
[2018-07-14 07:33] VITALS: BP 134/73
[2018-07-14 07:50] VITALS: BP 166/98
[2018-07-14] MEDS: MENTHOL/ZINC OXIDE (CALMOSEPTINE) 113 GM TUBE TOP SCH ×2 (09:20→21:09)
[2018-07-14] MEDS: ENOXAPARIN 40 MG/0.4 ML (LOVENOX) SYR SC SCH (09:21)
[2018-07-14] MEDS: CYCLOBENZAPRINE 10 MG (FLEXERIL) TAB PO SCH ×4 (09:22→21:08)
[2018-07-14] MEDS: risperiDONE 1 MG (RisperDAL) TAB PO SCH ×3 (09:22→21:08)
[2018-07-14] MEDS: amLODIPine 5 MG (NORVASC) TAB PO SCH ×2 (09:22→09:44)
[2018-07-14] MEDS: meTOprolol SUCCINATE 100 MG (TOPROL XL) TAB PO SCH ×3 (09:22→21:08)
[2018-07-14] MEDS: HYDROcodone/APAP 10 MG/325 MG (LORTAB) TAB PO PRN ×2 (09:22→09:39)
[2018-07-14] MEDS: guaiFENesin (MUCINEX) 600 MG TAB PO SCH ×3 (09:22→21:08)
[2018-07-14] MEDS: lisINopril 10 MG (PRINIVIL) TABLET PO SCH ×2 (09:22→09:45)
[2018-07-14] MEDS: DONEPEZIL 10 MG (ARICEPT) TAB PO SCH ×2 (09:22→09:44)
[2018-07-14] MEDS: PANTOPRAZOLE 40 MG (PROTONIX) TAB PO SCH ×3 (09:22→21:08)
[2018-07-14] MEDS: LORazepam 0.5 MG (ATIVAN) TABLET PO SCH ×2 (09:22→09:44)
[2018-07-14] MEDS: FAMOTIDINE 20 MG (PEPCID) TABLET PO SCH ×2 (09:22→09:44)
[2018-07-14] MEDS: LORATADINE (CLARITIN) 10 MG TAB PO SCH ×2 (09:22→09:44)
[2018-07-14] MEDS: SUCRALFATE 1 GM (CARAFATE) TAB PO SCH ×4 (09:24→21:08)
--- NOTE | 2018-07-14 09:52 | NUR ---
NOTE THAT PT WAS RESTING IN BED --SHE VOICED SHE WOULD TAKE HER MEDS AND THEN SHE REFUSED TO OPEN HER EYES AND STARTED CRYING AND VOICED SHE JUST COULD NOT OPEN HER -- NOTE THAT SHE HAD ADVISED NA PRIOR TO THIS RN COMING INTO ROOM THAT SHE NEEDED HER PAIN PILL -- SO ALONG WITH THE AM MEDS (0900) ONE HYDROCODONE TAB WERE WASTED -- NOTE THAT SHANELL WITNESSED THIS RN WASTING MEDS
--- NOTE | 2018-07-14 11:12 | Pulmonary Progress Note ---
Subjective Time Seen by a Provider: 07:31 Sepsis Event Evaluation Height, Weight, BMI Height: 5'7.00" Weight: 224lbs. 6.0oz. 101.070772es; 37.0 BMI Method:Stated Focused Exam Lactate Level 07/12/18 08:50: Lactic Acid Level 1.29 Exam Exam Vital Signs Date Time Temp Pulse Resp B/P (MAP) Pulse Ox O2 Delivery O2 Flow Rate FiO2 07/14/18 08:00 Nasal Cannula 3.00 07/14/18 07:50 98.4 80 22 166/98 (120) 98 Nasal Cannula 3.00 07/14/18 07:33 79 96 28 07/14/18 07:14 96 Nasal Cannula 2.00 07/14/18 02:29 97 Nasal Cannula 2.00 07/13/18 23:00 98.2 94 20 134/73 (93) 94 Nasal Cannula 3.00 07/13/18 22:23 94 Nasal Cannula 2.00 07/13/18 20:00 Nasal Cannula 3.00 07/13/18 18:29 96 Nasal Cannula 2.00 07/13/18 16:15 97.9 89 20 155/80 (105) 99 Nasal Cannula 3.00 07/13/18 16:10 97.9 07/13/18 15:28 93 Nasal Cannula 3.00 I & O 07/14/18 07:00 Intake Total 2570 ml Output Total 350 ml Balance 2220 ml Height & Weight Height: 5'7.00" Weight: 224lbs. 6.0oz. 101.809839wn; 37.0 BMI Method:Stated General Appearance: No Apparent Distress, WD/WN, Chronically ill, Obese HEENT: PERRL/EOMI, Pharynx Normal, Moist Mucous Membranes Neck: Full Range of Motion, Normal Inspection Respiratory: Chest Non Tender, No Accessory Muscle Use, No Respiratory Distress , Decreased Breath Sounds Cardiovascular: Regular Rate, Rhythm, No Murmur Capillary Refill: Less Than 3 Seconds Gastrointestinal: normal bowel sounds, non tender, soft Extremity: Normal Capillary Refill, Normal Inspection, Non Tender, Pedal Edema Neurologic/Psychiatric: Alert, Oriented x3, No Motor/Sensory Deficits, Normal Mood/Affect Skin: Normal Color, Warm/Dry Lymphatic: No Adenopathy Results Lab Laboratory Tests 07/13/18 04:05 07/14/18 05:56 Assessment/Plan Assessment/Plan S/p fall Acute on chronic respiratory failure -Hx of tracheostomy and ARDS -Oxygen at 4L Bilateral pneumonia - Persistent leukocytosis -Repeat 2 view CXR -Zosyn changed to Merrem -repeat lawson cultures -CXR showed bibasilar infiltrates R>L and Right slightly worse than prior study -PT may need bronchoscopy if she continues to have pulmonary infiltrates/PNA Severe oxygen dependent COPD with AE -SVNS, advair -Oxygen HTN with tachycardia -Toprol, lisinopril per cardiology dementia vs ICU psychosis -Risperdal 0.5mg BID and PRN Haldol Depression CAD Obesity HX of bipolar/anxiety MERCEDES GARZA DO Jul 14, 2018 11:12
--- NOTE | 2018-07-14 12:17 | Progress Note-Hospitalist ---
Subjective HPI/CC On Admission Date Seen by Provider: Jul 14, 2018 Time Seen by Provider: 11:45 CC: Respiratory insufficiency with bilateral pneumonia HPI: This is a 58-year-old white female known to me from just recent discharge from inpatient rehab directly to the skilled nursing after 1 month of inpatient rehab in [address] [facility] for acute on chronic respiratory failure requiring trach and PEG tube both discontinued while inpatient rehab stay who presented to the ER only 2 days after she moved into her own apartment and [place] and began feeling ill and had a fall with increased oxygen requirements and was found to have bilateral pneumonia with respiratory insufficiency. She has been placed in the ICU and Dr. Berman has been consulted. She is at high risk for reintubation. I have restarted most of her home medications including her emotional problem regimen and she reports she is not in any pain but feeling better. Subjective/Events-last exam Appears to be very end-stage Denies any pain except for left knee Repeating herself with things we are to discussed yesterday Very poor prognosis overall Review of Systems Musculoskeletal: leg pain Focused Exam Lactate Level 07/12/18 08:50: Lactic Acid Level 1.29 Objective Exam Vital Signs Vital Signs Date Time Temp Pulse Resp B/P (MAP) Pulse Ox O2 Delivery O2 Flow Rate FiO2 07/14/18 11:22 97 Nasal Cannula 2.00 07/14/18 07:50 98.4 80 22 166/98 (120) 07/14/18 07:33 28 Capillary Refill : Less Than 3 Seconds General Appearance: No Apparent Distress, WD/WN, Chronically ill Respiratory: Chest Non Tender, Lungs Clear, Normal Breath Sounds, No Accessory Muscle Use, No Respiratory Distress, Decreased Breath Sounds Cardiovascular: Regular Rate, Rhythm, No Edema, No Gallop, No JVD, No Murmur, Normal Peripheral Pulses Neurologic/Psychiatric: Alert, Oriented x3, No Motor/Sensory Deficits, Depressed Affect Results/Procedures Lab Laboratory Tests 07/14/18 05:56 Patient resulted labs reviewed. Assessment/Plan Assessment and Plan Assess & Plan/Chief Complaint Assessment: Bilateral pneumonia Fall at home Respiratory insufficiency acute on chronic Severe debility following critical illness and vent dependence just DC from IRF after 1 month of care to skilled nursing for 3 weeks then her own apartment for only 2 days s/p Trach now DC last month s/p PEG tube now DC last month Nausea- chronic Mental illness precluding fast recovery Current smoker unsure of her status now COPD Status post pneumonia 05/28 Leukocytosis Left knee pain since fall Plan: Monitor closely Vapotherm Monitor lungs Disposition home will not be an option Critical Care Critical Care: Critically Ill Patient Clinical Quality Measures DVT/VTE Risk/Contraindication: Risk Factor Score Per Nursin RFS Level Per Nursing on Admit: 4+=Very High SAMANTHA COLLIER DO Jul 14, 2018 12:17
--- NOTE | 2018-07-14 14:46 | Progress Note-Cardiology ---
Cardiology SOAP Progress Note Subjective: Gen malaise No cp or palp or syncope or shortness of breath at rest Objective: I&O/Vital Signs 07/14/18 07/14/18 07/14/18 07/14/18 07:14 07:33 07:50 08:00 Temp 98.4 Pulse 79 80 Resp 22 B/P (MAP) 166/98 (120) Pulse Ox 96 96 98 O2 Delivery Nasal Cannula Nasal Cannula Nasal Cannula O2 Flow Rate 2.00 3.00 3.00 FiO2 28 07/14/18 11:22 Pulse Ox 97 O2 Delivery Nasal Cannula O2 Flow Rate 2.00 07/14/18 00:00 Intake Total 2270 ml Output Total 350 ml Balance 1920 ml Weight (Pounds): 224 Weight (Ounces): 6.0 Weight (Calculated Kilograms): 101.002176 Constitutional: appears stated age, well-developed, well-nourished Respiratory: chest is bilaterally symmetric, other (diminished lower lobes bilat; dyspneic with conversation) Cardiovascular: regular rate-rhythm, S1 and S2 Gastrointestional: audible bowel sounds Extremities: no lower extremity edema bilateral Neurologic/Psychiatric: grossly intact Skin: No rash, No ulcerations Results/Procedures: Labs Laboratory Tests 07/14/18 05:56: White Blood Count 13.7H, Red Blood Count 4.12L, Hemoglobin 11.7, Hematocrit 38, Mean Corpuscular Volume 92, Mean Corpuscular Hemoglobin 28, Mean Corpuscular Hemoglobin Concent 31L, Red Cell Distribution Width 16.7H, Platelet Count 402H, Mean Platelet Volume 9.9, Neutrophils (%) (Auto) 66, Lymphocytes (%) (Auto) 21, Monocytes (%) (Auto) 9, Eosinophils (%) (Auto) 4, Basophils (%) (Auto) 0, Neutrophils # (Auto) 9.1H, Lymphocytes # (Auto) 2.8, Monocytes # (Auto) 1.2H, Eosinophils # (Auto) 0.6H, Basophils # (Auto) 0.0, Sodium Level 143, Potassium Level 3.6, Chloride Level 105, Carbon Dioxide Level 27, Anion Gap 11, Blood Urea Nitrogen 13, Creatinine 0.78, Estimat Glomerular Filtration Rate > 60, BUN/ Creatinine Ratio 17, Glucose Level 98, Calcium Level 8.9, Corrected Calcium 9.5 , Phosphorus Level 3.4, Magnesium Level 2.3, Total Bilirubin 0.2, Aspartate Amino Transf (AST/SGOT) 13, Alanine Aminotransferase (ALT/SGPT) 15, Alkaline Phosphatase 89, Total Protein 6.2L, Albumin 3.3 Microbiology 07/12/18 Blood Culture - Preliminary, Resulted No growth 07/05/18 MRSA Screen - Final, Complete MRSA not isolated 07/12/18 Urine Culture - Final, Complete NO GROWTH Laboratory Tests 07/13/18 04:05 07/14/18 05:56 A/P: Assessment: HTN - fair to good control. It is elevated today (07/14/18) because she has been refusing meds Acute on chronic exacerbation of COPD Pneumonia - management per medical/pulmonary services Dementia Echocardiogram of November [address] Fuentes showed LVEF 60%. Mild MR. PASP approx 20 mmHg Plan: * We have advised compliance * Continue current regimen * Monitor labs KURT MATTHEW MD FACP [facility] CCDS Jul 14, 2018 14:46
[2018-07-14 15:40] VITALS: BP 164/90
--- NOTE | 2018-07-14 16:20 | NUR ---
PT VOICED TO THIS RN THAT HEART DOCTOR ASKED WHY SHE REFUSED HER B/P MEDS THIS M -- THIS RN REMINDED PT THAT THIS RN DID TRY TO GIVE HER HER AM MEDS BUT SHE CURSED AT THE RN AND VOICED VERY STRONGLY SHE WAS NOT TAKING THE AM MEDS AT 0920 -- PT VOICED SHE WAS SORRY BUT SHE JUST DOES NOT REMEMBER -
[2018-07-14 21:00] VITALS: BP 150/82
[2018-07-14] MEDS: OLANZapine 5 MG (ZyPREXA) TAB PO SCH (21:08)
[2018-07-14] MEDS: LORazepam 1 MG (ATIVAN) TAB PO SCH (21:08)
[2018-07-14 23:33] VITALS: BP 146/80
[2018-07-14] MEDS: ACETAMINOPHEN 325 MG TABLET PO PRN (23:56)
[2018-07-15] MEDS: RT-ALBUTEROL/IPRATROPIUM 3 ML (DUONEB) VIAL INH SCH ×5 (02:41→19:44)
[2018-07-15] MEDS: MEROPENEM 500 MG in NS (IVPB) 100 ML IV SCH ×4 (03:35→22:16)
[2018-07-15 05:04] LABS: BASOPHILS % (AUTO) 0 % (0-10); EOSINOPHILS # (AUTO) 0.6 10^3/uL (0.0-0.3); EOSINOPHILS % (AUTO) 4 % (0-10); HEMATOCRIT 39 % (35-52); HEMOGLOBIN 11.8 G/DL (11.5-16.0); LYMPHOCYTES # (AUTO) 3.6 X 10^3 (1.0-4.0); LYMPHOCYTES % (AUTO) 28 % (12-44); MEAN CORPUSCULAR HEMOGLOBIN 28 PG (25-34); MEAN CORPUSCULAR HGB CONC 31 G/DL (32-36); MEAN CORPUSCULAR VOLUME 91 FL (80-99); MONOCYTES # (AUTO) 1.2 X 10^3 (0.0-1.0); MONOCYTES % (AUTO) 9 % (0-12); NEUTROPHILS # (AUTO) 7.5 X 10^3 (1.8-7.8); NEUTROPHILS % (AUTO) 58 % (42-75); PLATELET COUNT 398 10^3/uL (130-400); RED CELL DISTRIBUTION WIDTH 16.3 % (10.0-14.5); WHITE BLOOD COUNT 12.8 10^3/uL (4.3-11.0)
[2018-07-15 05:24] LABS: ALANINE AMINOTRANSFERASE 16 U/L (0-55); ALBUMIN 3.4 GM/DL (3.2-4.5); ALKALINE PHOSPHATASE 95 U/L (40-136); BILIRUBIN,TOTAL 0.3 MG/DL (0.1-1.0); BUN/CREATININE RATIO 17; CALCIUM 9.2 MG/DL (8.5-10.1); CARBON DIOXIDE 27 MMOL/L (21-32); CHLORIDE 106 MMOL/L (98-107); CREATININE SERUM 0.72 MG/DL (0.60-1.30); GFR ESTIMATED > 60; GLUCOSE 98 MG/DL (70-105); MAGNESIUM 1.9 MG/DL (1.8-2.4); PHOSPHORUS 3.5 MG/DL (2.3-4.7); POTASSIUM 3.6 MMOL/L (3.6-5.0); SODIUM 145 MMOL/L (135-145); TOTAL PROTEIN 6.3 GM/DL (6.4-8.2)
[2018-07-15] MEDS: LACTOBACILLUS ACIDOPHILUS (PROBIOTIC) CAPSULE PO SCH ×3 (06:18→17:21)
[2018-07-15] MEDS: HYDROcodone/APAP 10 MG/325 MG (LORTAB) TAB PO PRN ×2 (06:48→17:25)
[2018-07-15 08:00] VITALS: BP 159/95
[2018-07-15] MEDS: RT-ADVAIR HFA 115/21 MCG PER PUFF IH SCH ×2 (08:02→19:44)
[2018-07-15] MEDS: lisINopril 10 MG (PRINIVIL) TABLET PO SCH (08:03)
[2018-07-15] MEDS: PANTOPRAZOLE 40 MG (PROTONIX) TAB PO SCH ×2 (08:03→20:38)
[2018-07-15] MEDS: LORazepam 0.5 MG (ATIVAN) TABLET PO SCH (08:03)
[2018-07-15] MEDS: amLODIPine 5 MG (NORVASC) TAB PO SCH (08:04)
[2018-07-15] MEDS: MENTHOL/ZINC OXIDE (CALMOSEPTINE) 113 GM TUBE TOP SCH ×2 (08:04→20:40)
[2018-07-15] MEDS: LORATADINE (CLARITIN) 10 MG TAB PO SCH (08:04)
[2018-07-15] MEDS: CYCLOBENZAPRINE 10 MG (FLEXERIL) TAB PO SCH ×3 (08:04→20:39)
[2018-07-15] MEDS: risperiDONE 1 MG (RisperDAL) TAB PO SCH ×2 (08:04→20:39)
[2018-07-15] MEDS: ENOXAPARIN 40 MG/0.4 ML (LOVENOX) SYR SC SCH (08:04)
[2018-07-15] MEDS: guaiFENesin (MUCINEX) 600 MG TAB PO SCH ×2 (08:04→20:39)
[2018-07-15] MEDS: FAMOTIDINE 20 MG (PEPCID) TABLET PO SCH (08:04)
[2018-07-15] MEDS: SUCRALFATE 1 GM (CARAFATE) TAB PO SCH ×3 (08:04→20:39)
[2018-07-15] MEDS: meTOprolol SUCCINATE 100 MG (TOPROL XL) TAB PO SCH ×2 (08:04→20:39)
[2018-07-15] MEDS: DONEPEZIL 10 MG (ARICEPT) TAB PO SCH (08:04)
--- NOTE | 2018-07-15 08:07 | Progress Note (SOAP) ---
Subjective Time Seen by a Provider: 08:05 Subjective/Events-last exam Patient complaining of left knee pain. Patient was seen by orthopedics. Acute and chronic respiratory failure. Bilateral pneumonia. COPD with acute exacerbation. Hypertension. Bipolar. Depression. Dementia Focused Exam Lactate Level 07/12/18 08:50: Lactic Acid Level 1.29 Objective Exam Vital Signs Date Time Temp Pulse Resp B/P (MAP) Pulse Ox O2 Delivery O2 Flow Rate FiO2 07/15/18 02:43 98 Nasal Cannula 2.00 07/14/18 23:33 97.9 90 20 146/80 (102) 94 Nasal Cannula 3.00 07/14/18 22:38 94 Nasal Cannula 2.00 07/14/18 21:00 97 150/82 (104) 07/14/18 20:00 Nasal Cannula 3.00 07/14/18 19:50 98 Nasal Cannula 2.00 07/14/18 15:40 97.8 88 20 164/90 (114) 99 Nasal Cannula 3.00 07/14/18 14:55 97 Nasal Cannula 2.00 07/14/18 11:22 97 Nasal Cannula 2.00 I & O 07/15/18 07:00 Intake Total 1850 ml Balance 1850 ml Capillary Refill : Less Than 3 Seconds General Appearance: No Apparent Distress, WD/WN HEENT: Normal ENT Inspection Neck: Full Range of Motion, Normal Inspection Respiratory: Chest Non Tender, No Accessory Muscle Use, No Respiratory Distress , Decreased Breath Sounds Cardiovascular: Regular Rate, Rhythm, No Murmur Gastrointestinal: non tender, soft Extremity: Other (Left knee pain) Results Lab Laboratory Tests 07/15/18 04:45 Laboratory Tests 07/15/18 04:45: White Blood Count 12.8H, Red Blood Count 4.21L, Hemoglobin 11.8, Hematocrit 39, Mean Corpuscular Volume 91, Mean Corpuscular Hemoglobin 28, Mean Corpuscular Hemoglobin Concent 31L, Red Cell Distribution Width 16.3H, Platelet Count 398, Mean Platelet Volume 10.0, Neutrophils (%) (Auto) 58, Lymphocytes (%) (Auto) 28 , Monocytes (%) (Auto) 9, Eosinophils (%) (Auto) 4, Basophils (%) (Auto) 0, Neutrophils # (Auto) 7.5, Lymphocytes # (Auto) 3.6, Monocytes # (Auto) 1.2H, Eosinophils # (Auto) 0.6H, Basophils # (Auto) 0.0, Sodium Level 145, Potassium Level 3.6, Chloride Level 106, Carbon Dioxide Level 27, Anion Gap 12, Blood Urea Nitrogen 12, Creatinine 0.72, Estimat Glomerular Filtration Rate > 60, BUN/ Creatinine Ratio 17, Glucose Level 98, Calcium Level 9.2, Corrected Calcium 9.7 , Phosphorus Level 3.5, Magnesium Level 1.9, Total Bilirubin 0.3, Aspartate Amino Transf (AST/SGOT) 15, Alanine Aminotransferase (ALT/SGPT) 16, Alkaline Phosphatase 95, Total Protein 6.3L, Albumin 3.4 Microbiology 07/12/18 Blood Culture - Preliminary, Resulted No growth 07/05/18 MRSA Screen - Final, Complete MRSA not isolated 07/12/18 Urine Culture - Final, Complete NO GROWTH Assessment/Plan Assessment/Plan Assess & Plan/Chief Complaint Fall with no fractures. Bilateral pneumonia. COPD. Bipolar. Dementia. Hypertension. History of tobaccoism. . 07/09/18. Fall with no fractures. Bilateral pneumonia. COPD. Bipolar. Dementia. Has some dementia. Hypertension. Confusion.. . 07/10/18. Fall with no fracture. Bilateral pneumonia. COPD. Bipolar. Dementia. Confusion. Agitation. Hypertension better. Patient not confused this morning and resting comfortably. 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 . 07/11/18 for with no fractures. Bilateral pneumonia improving. COPD. Bipolar. Confusion getting less according to patient. Agitation. Dementia. Consult mental health. Hypertension better. . 07/12/18. 4 with no fractures. Pneumonia. COPD. Bipolar. Dementia. Pain in the left knee. Leukocytosis. . 07/15/18. Fall. Pneumonia. COPD. Bipolar. Dementia. Left knee pain. Leukocytosis. Hypertension Clinical Quality Measures DVT/VTE Risk/Contraindication: Risk Factor Score Per Nursin RFS Level Per Nursing on Admit: 4+=Very High JOCELYNE MEI DO Jul 15, 2018 08:07
--- NOTE | 2018-07-15 08:15 | NUR ---
CONSULT TO DR. ASHRAF.
--- NOTE | 2018-07-15 10:30 | Physical Therapy Daily Note ---
PT Daily Note-Current Subjective Pt in recliner and agrees to PT. Pain Numeric Pain Scale: 5-Moderate Pain Location: Left Location Body Site: Foot Comment: Pt reports she is unable to WB on LLE due to pain from knee down. Mental Status Patient Orientation: Person Attachments: Oxygen, IV Transfers Therapy Code Descriptions/Definitions Functional [place] Measure: 0=Not Assessed/NA 4=Minimal Assistance 1=Total Assistance 5=Supervision or Setup 2=Maximal Assistance 6=Modified [place] 3=Moderate Assistance 7=Complete [place] Therapy Quality Codes: 6 Independent with activity with or without an assistive device 5 Patient requires set up or clean up by helper. Patient completes activity by themselves 4 Supervision or touching assist (CGA). [place] provide cues , steadying assist 3 The helper provides less than half the effort to complete the activity 2 The helper provides more than half the effort to complete the activity 1 Dependent. The helper does all the effort to complete an activity 7 Patient refused to complete or attempt activity 9 The patient did not perform the activity before the current illness or injury 88 Not attempted due to Medical conditions or safety concerns Transfers (B, C, W/C) (FIM): 4 Sit to/from Stand: 4 Weight Bearing Right Lower Extremity: Right Full Weight Bearing Left Lower Extremity: Left Full Weight Bearing Exercises Seated Therapy Exercises: Ankle pumps Seated Reps: 20 Standing: Marching (LLE only), Weight shifts Standing Reps: 10 Assessment Current Status: Poor Progress Pt reports that LLE pain is from knee down but is unable to explain the kind of pain or where on her foot it goes to. Pt was able to perform 2 sit<>stand from recline to FWW with min A. Pt performed wt shifts while standing and would only do marching on LLE due to refusing to bear full wt on LLE. Pt was able to perform seated LE ex. Pt became emotional during tx and a bit argumentative. Pt is in recliner with all needs met. PT Penitentiary Goals Hydrostatic Tubing Tester Goals PT Penitentiary Goals Time Frame: Jul 15, 2018 Transfers (B,C,W/C) (FIM): 6 Gait (FIM): 6 Gait distance (FIM): 3=150 ft Gait Assistive Device: FWW PT Plan Problem List Problem List: Activity Tolerance, Functional Strength, Safety, Balance, Gait, Transfer, Bed Mobility, ROM Treatment/Plan Treatment Plan: Continue Plan of Care Treatment Plan: Bed Mobility, Education, Functional Activity Fede, Functional Strength, Gait, Safety, Therapeutic Exercise, Transfers Treatment Duration: Jul 15, 2018 Frequency: 6 times per week Estimated Hrs Per Day: .5 hour per day Patient and/or Family Agrees t: Yes Time/GCodes Time In: 921 Time Out: 932 Total Billed Treatment Time: 11 Total Billed Treatment 1 visit EX 11 min DELMI TORRES PT Jul 15, 2018 10:30
--- NOTE | 2018-07-15 10:58 | Diagnostic Imaging Report ---
INDICATION: Pneumonia. COMPARISON: 07/13/2018 FINDINGS: Frontal and lateral radiographic views of the chest were obtained and show normal cardiac silhouette and pulmonary vasculature. Lungs continue to show mild bilateral perihilar infiltrates, stable compared to prior exam. Small bibasilar effusions are also identified. There is no pneumothorax on either side. Bony structures show no gross acute abnormalities. IMPRESSION: 1. Stable bilateral perihilar infiltrates. 2. Small bibasilar effusions. Dictated by: Dictated on workstation # [id number]
--- NOTE | 2018-07-15 11:06 | Occupational Ther Daily Note ---
OT Current Status-Daily Note Subjective Pt alert, sitting in recliner. Increased O2 needs. Pt agrees to therapy. No c/o pain at this time. Pt stated that she had been told that she had yelled and cussed, but doesn't remember doing it. Mental Status/Objective Patient Orientation: Person, Place, Time, Situation Therapy Code Descriptions/Definitions Functional [place] Measure: 0=Not Assessed/NA 4=Minimal Assistance 1=Total Assistance 5=Supervision or Setup 2=Maximal Assistance 6=Modified [place] 3=Moderate Assistance 7=Complete [place] ADL-Treatment Grooming (FIM): 5 (When given supplies pt able to complete by self.) Other Treatment Pt completed 3 exercises to increase strength and activity tolerance. UE exercises were against gravity, 2 sets 5 reps of each. Pt fatigued quickly and SOA noted. After therapy, pt sitting in recliner with call light/phone in reach. All needs met in room. OT Short Term Goals Short Term Goals 1=Demonstrate adherence to instructed precautions during ADL tasks. 2=Patient will verbalize/demonstrate understanding of assistive devices/ modifications for ADL. 3=Patient will improve strength/tolerance for activity to enable patient to perform ADL's. OT Tech Ed/Woodshop Teacher Goals Tech Ed/Woodshop Teacher Goals Time Frame: Jul 20, 2018 Grooming(FIM): 6 Bathing(FIM): 5 Upper Body Dressing(FIM): 5 Lower Body Dressing(FIM): 5 Toileting(FIM): 6 Toilet/Commode Transfer(FIM): 6 Additional Goals: 1-Demonstrate ADL Tasks, 2-Verbalize Understanding, 3- ImproveStrength/Fede 1=Demonstrate adherence to instructed precautions during ADL tasks. 2=Patient will verbalize/demonstrate understanding of assistive devices/ modifications for ADL. 3=Patient will improve strength/tolerance for activity to enable patient to perform ADL's. OT Education/Plan Problem List/Assessment Pt to benefit from skilled OT intervention for ADL training, transfers, strengthening, and safety education to increase level of independence and allow safe discharge plan. Discharge Recommendations Plan/Recommendations: Continue POC Treatment Plan/Plan of Care Patient would benefit from OT for education, treatment and training to promote independence in ADL's, mobility, safety and/or upper extremity function for ADL' s. Plan of Care: ADL Retraining, Functional Mobility, UE Funct Exercise/Act Treatment Duration: Jul 20, 2018 Frequency: 5 times per week Estimated Hrs Per Day: .25 hour per day Rehab Potential: Fair Time/GCodes Start Time: 10:51 Stop Time: 11:06 Total Time Billed (hr/min): 15 Billed Treatment Time 1 visit-FA 1 (15 min) PILLO BABCOCK Jul 15, 2018 11:05
[2018-07-15] MEDS ORDERED: IOHEXOL 350 MG/ML 100 ML (OMNIPAQUE 350) VIAL IV ONE (11:30)
[2018-07-15] MEDS ORDERED: NS 100 ML (IVPB) BAG IV ONE (11:30)
[2018-07-15] MEDS ORDERED: RECEIVED CONTRAST (Hold Metformin) IV SCH (11:30)
[2018-07-15] MEDS ORDERED: amLODIPine 5 MG (NORVASC) TAB PO NR (13:15)
--- NOTE | 2018-07-15 14:14 | Diagnostic Imaging Report ---
PROCEDURE: CT chest with contrast only. TECHNIQUE: Multiple contiguous axial images were obtained through the chest after administration of intravenous contrast. INDICATION: Unresolving pneumonia. COMPARISON: CT dated 05/21/2018 and chest radiograph from earlier same day. FINDINGS: Evaluation of the lung ambrose again demonstrates background of severe emphysematous disease. Note is also again made of patchy spiculated densities within the right midlung, and to a lesser degree on the left. These are new when compared to CT dated 05/21/2018 and are felt to correspond to patchy perihilar infiltrates seen on recent chest radiographs. There is no large effusion or pneumothorax. There is a 1.2 cm nodular opacity within the posterior left sulcus. This does appear to be slightly increased in size when compared to recent CT chest dated 05/21/2018. Small micronodular densities are also noted within the medial right lung base and measure approximately 8 mm (image 40, series 2). These are new compared to 05/21/2018. Few scattered benign calcified granuloma are noted. Cardiomediastinal structures show normal heart size. There is no large pericardial effusion. Calcified left infrahilar lymph nodes are also noted. Otherwise, no pathologically enlarged or morphologically abnormal mediastinal or hilar adenopathy is seen. A few prominent appearing bilateral axillary lymph nodes are also noted, but are stable compared to 05/21/2018. Bony structures show no acute abnormalities. Included portions of the upper abdomen are unremarkable. IMPRESSION: 1. Minimal patchy perihilar infiltrates, right greater than left. 2. New micronodular densities within the right lung base. Given these are new when compared to 05/21/2018, infectious or inflammatory process is favored. 3. Nodular opacity within the posterior left lung base. This appears slightly more prominent in size when compared to 05/21/2018 and could be on the basis of rounded pneumonia. Underlying soft tissue lesion not entirely excluded. May want to consider three-month followup with prone imaging. 4. Background of advanced emphysematous disease. Dictated by: Dictated on workstation # [id number]
--- NOTE | 2018-07-15 14:39 | NUR ---
END TIDAL CO2 MONITOR DC'D PER ORDER.
--- NOTE | 2018-07-15 15:00 | Cardiology Progress Note ---
Cardiology SOAP Progress Note Subjective: No cardiac complaints. Objective: I&O/Vital Signs 07/15/18 07/15/18 07/15/18 07/15/18 08:00 08:00 08:00 11:36 Temp 97.3 Pulse 83 Resp 18 B/P (MAP) 159/95 (116) Pulse Ox 95 94 96 O2 Delivery Nasal Cannula Nasal Cannula Nasal Cannula Nasal Cannula O2 Flow Rate 2.00 3.00 2.00 2.00 07/15/18 00:00 Intake Total 1650 ml Balance 1650 ml Weight (Pounds): 230 Weight (Ounces): 2.0 Weight (Calculated Kilograms): 104.790720 Constitutional: appears stated age, well-developed, well-nourished Respiratory: chest is bilaterally symmetric, other (diminished lower lobes bilat; dyspneic with conversation) Cardiovascular: regular rate-rhythm, S1 and S2 Gastrointestional: audible bowel sounds Extremities: no lower extremity edema bilateral Neurologic/Psychiatric: grossly intact Skin: No rash, No ulcerations Results/Procedures: Labs Laboratory Tests 07/15/18 04:45: White Blood Count 12.8H, Red Blood Count 4.21L, Hemoglobin 11.8, Hematocrit 39, Mean Corpuscular Volume 91, Mean Corpuscular Hemoglobin 28, Mean Corpuscular Hemoglobin Concent 31L, Red Cell Distribution Width 16.3H, Platelet Count 398, Mean Platelet Volume 10.0, Neutrophils (%) (Auto) 58, Lymphocytes (%) (Auto) 28 , Monocytes (%) (Auto) 9, Eosinophils (%) (Auto) 4, Basophils (%) (Auto) 0, Neutrophils # (Auto) 7.5, Lymphocytes # (Auto) 3.6, Monocytes # (Auto) 1.2H, Eosinophils # (Auto) 0.6H, Basophils # (Auto) 0.0, Sodium Level 145, Potassium Level 3.6, Chloride Level 106, Carbon Dioxide Level 27, Anion Gap 12, Blood Urea Nitrogen 12, Creatinine 0.72, Estimat Glomerular Filtration Rate > 60, BUN/ Creatinine Ratio 17, Glucose Level 98, Calcium Level 9.2, Corrected Calcium 9.7 , Phosphorus Level 3.5, Magnesium Level 1.9, Total Bilirubin 0.3, Aspartate Amino Transf (AST/SGOT) 15, Alanine Aminotransferase (ALT/SGPT) 16, Alkaline Phosphatase 95, Total Protein 6.3L, Albumin 3.4 Microbiology 07/12/18 Blood Culture - Preliminary, Resulted No growth 07/05/18 MRSA Screen - Final, Complete MRSA not isolated 07/12/18 Urine Culture - Final, Complete NO GROWTH A/P: Assessment/Dx: Severe hypertension, COPD, Pneumonia, Psychiatric disorder Plan: Severe hypertension. Continue Toprol-XL 100 mg twice a day. Continue lisinopril at current dosage. Elevated BP - increase norvasc to 10mg daily from 5mg daily. Partly elevated blood pressure due to agitation as well. Echocardiogram done this hospitalization demonstrates normal LVEF with no significant valvular heart disease. Thank you for your consultation. Please call me if you have any questions. Kirsten Reis MD, FACP, FACC, FSCAI, FHRS, CCDS Interventional Cardiology Cardiac Electrophysiology Vascular Medicine and Endovascular Interventions Miguel REIS MD Jul 15, 2018 15:00
[2018-07-15 16:40] VITALS: BP 137/87
--- NOTE | 2018-07-15 17:28 | NUR ---
HYDROCODONE 10 PO FOR LEFT KNEE PAIN.
[2018-07-15] MEDS: LORazepam 1 MG (ATIVAN) TAB PO SCH (20:38)
[2018-07-15] MEDS: OLANZapine 5 MG (ZyPREXA) TAB PO SCH (20:38)
[2018-07-15] MEDS: ACETAMINOPHEN 325 MG TABLET PO PRN (20:49)
[2018-07-15] MEDS: IBUPROFEN 800 MG (MOTRIN) TAB PO PRN (23:26)
[2018-07-16] VITALS: BP 142/74
[2018-07-16] MEDS: RT-ALBUTEROL/IPRATROPIUM 3 ML (DUONEB) VIAL INH SCH ×7 (02:59→23:11)
[2018-07-16] MEDS: MEROPENEM 500 MG in NS (IVPB) 100 ML IV SCH (03:29)
[2018-07-16] MEDS: LACTOBACILLUS ACIDOPHILUS (PROBIOTIC) CAPSULE PO SCH ×3 (06:22→16:26)
[2018-07-16 08:00] VITALS: BP 149/72
[2018-07-16 08:00] LABS: BASOPHILS # (AUTO) 0.1 10^3/uL (0.0-0.1); BASOPHILS % (AUTO) 1 % (0-10); EOSINOPHILS # (AUTO) 0.6 10^3/uL (0.0-0.3); EOSINOPHILS % (AUTO) 6 % (0-10); HEMATOCRIT 40 % (35-52); HEMOGLOBIN 12.2 G/DL (11.5-16.0); LYMPHOCYTES # (AUTO) 2.3 X 10^3 (1.0-4.0); LYMPHOCYTES % (AUTO) 22 % (12-44); MEAN CORPUSCULAR HEMOGLOBIN 28 PG (25-34); MEAN CORPUSCULAR HGB CONC 31 G/DL (32-36); MEAN CORPUSCULAR VOLUME 91 FL (80-99); MEAN PLATELET VOLUME 10.1 FL (7.4-10.4); MONOCYTES # (AUTO) 1.1 X 10^3 (0.0-1.0); MONOCYTES % (AUTO) 11 % (0-12); NEUTROPHILS # (AUTO) 6.4 X 10^3 (1.8-7.8); NEUTROPHILS % (AUTO) 61 % (42-75); PLATELET COUNT 407 10^3/uL (130-400); RED CELL DISTRIBUTION WIDTH 16.9 % (10.0-14.5); WHITE BLOOD COUNT 10.4 10^3/uL (4.3-11.0)
[2018-07-16 08:19] LABS: ALANINE AMINOTRANSFERASE 16 U/L (0-55); ALBUMIN 3.4 GM/DL (3.2-4.5); ALKALINE PHOSPHATASE 102 U/L (40-136); BILIRUBIN,TOTAL 0.2 MG/DL (0.1-1.0); BUN/CREATININE RATIO 18; CALCIUM 9.2 MG/DL (8.5-10.1); CARBON DIOXIDE 26 MMOL/L (21-32); CHLORIDE 107 MMOL/L (98-107); CREATININE SERUM 0.72 MG/DL (0.60-1.30); GFR ESTIMATED > 60; GLUCOSE 94 MG/DL (70-105); MAGNESIUM 1.9 MG/DL (1.8-2.4); POTASSIUM 3.9 MMOL/L (3.6-5.0); SODIUM 145 MMOL/L (135-145); TOTAL PROTEIN 6.4 GM/DL (6.4-8.2)
--- NOTE | 2018-07-16 08:21 | Progress Note (SOAP) ---
Subjective Time Seen by a Provider: 08:18 Subjective/Events-last exam Patient resting comfortably this morning. Patient CAT scan done yesterday shows patchy perihilar infiltrate right greater than left. Mitral dents densities within the right lung base. Nodule opacity within the posterior left lung. Rapid pneumonia or soft tissue lesion to be doing 3 months CAT scan Objective Exam Vital Signs Date Time Temp Pulse Resp B/P (MAP) Pulse Ox O2 Delivery O2 Flow Rate FiO2 07/16/18 07:46 93 Nasal Cannula 2.00 07/16/18 03:00 90 Nasal Cannula 2.00 07/16/18 00:00 96.6 88 18 142/74 (96) 99 2.00 07/15/18 20:15 Nasal Cannula 2.00 07/15/18 19:44 94 Nasal Cannula 2.00 07/15/18 16:40 98.2 93 20 137/87 (104) 99 Nasal Cannula 3.00 07/15/18 11:36 96 Nasal Cannula 2.00 I & O 07/16/18 07:00 Intake Total 1970 ml Output Total 1075 ml Balance 895 ml Capillary Refill : Less Than 3 SecondsLess Than 3 Seconds General Appearance: No Apparent Distress, WD/WN HEENT: Normal ENT Inspection Neck: Normal Inspection, Non Tender Respiratory: Decreased Breath Sounds Cardiovascular: Regular Rate, Rhythm, No Murmur Gastrointestinal: non tender, soft Results Lab Laboratory Tests 07/16/18 07:45 Laboratory Tests 07/16/18 07:45: White Blood Count 10.4, Red Blood Count 4.38, Hemoglobin 12.2, Hematocrit 40, Mean Corpuscular Volume 91, Mean Corpuscular Hemoglobin 28, Mean Corpuscular Hemoglobin Concent 31L, Red Cell Distribution Width 16.9H, Platelet Count 407H, Mean Platelet Volume 10.1, Neutrophils (%) (Auto) 61, Lymphocytes (%) (Auto) 22 , Monocytes (%) (Auto) 11, Eosinophils (%) (Auto) 6, Basophils (%) (Auto) 1, Neutrophils # (Auto) 6.4, Lymphocytes # (Auto) 2.3, Monocytes # (Auto) 1.1H, Eosinophils # (Auto) 0.6H, Basophils # (Auto) 0.1 Microbiology 07/12/18 Blood Culture - Preliminary, Resulted No growth 07/05/18 MRSA Screen - Final, Complete MRSA not isolated 07/12/18 Urine Culture - Final, Complete NO GROWTH Assessment/Plan Assessment/Plan Assess & Plan/Chief Complaint Fall with no fractures. Bilateral pneumonia. COPD. Bipolar. Dementia. Hypertension. History of tobaccoism. . 07/09/18. Fall with no fractures. Bilateral pneumonia. COPD. Bipolar. Dementia. Has some dementia. Hypertension. Confusion.. . 07/10/18. Fall with no fracture. Bilateral pneumonia. COPD. Bipolar. Dementia. Confusion. Agitation. Hypertension better. Patient not confused this morning and resting comfortably. 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 . 07/11/18 for with no fractures. Bilateral pneumonia improving. COPD. Bipolar. Confusion getting less according to patient. Agitation. Dementia. Consult mental health. Hypertension better. . 07/12/18. 4 with no fractures. Pneumonia. COPD. Bipolar. Dementia. Pain in the left knee. Leukocytosis. . 07/15/18. Fall. Pneumonia. COPD. Bipolar. Dementia. Left knee pain. Leukocytosis. Hypertension. . 07/16/18. Fall with no fracture. Pneumonia. COPD. Bipolar. Dementia. Hypertension Clinical Quality Measures DVT/VTE Risk/Contraindication: Risk Factor Score Per Nursin RFS Level Per Nursing on Admit: 4+=Very High JOCELYNE MEI DO Jul 16, 2018 08:21
--- NOTE | 2018-07-16 08:35 | Pulmonary Progress Note ---
Subjective Time Seen by a Provider: 08:35 Subjective/Events-last exam PT has no complaints. Sepsis Event Evaluation Height, Weight, BMI Height: 5'7.00" Weight: 226lbs. 6.0oz. 102.576472qk; 37.0 BMI Method:Stated Exam Exam Vital Signs Date Time Temp Pulse Resp B/P (MAP) Pulse Ox O2 Delivery O2 Flow Rate FiO2 07/16/18 07:46 93 Nasal Cannula 2.00 07/16/18 03:00 90 Nasal Cannula 2.00 07/16/18 00:00 96.6 88 18 142/74 (96) 99 2.00 07/15/18 20:15 Nasal Cannula 2.00 07/15/18 19:44 94 Nasal Cannula 2.00 07/15/18 16:40 98.2 93 20 137/87 (104) 99 Nasal Cannula 3.00 07/15/18 11:36 96 Nasal Cannula 2.00 I & O 07/16/18 07:00 Intake Total 1970 ml Output Total 1075 ml Balance 895 ml Height & Weight Height: 5'7.00" Weight: 226lbs. 6.0oz. 102.197627kr; 37.0 BMI Method:Stated General Appearance: No Apparent Distress, WD/WN HEENT: Normal ENT Inspection Neck: Normal Inspection, Non Tender Respiratory: Decreased Breath Sounds Cardiovascular: Regular Rate, Rhythm, No Murmur Capillary Refill: Less Than 3 Seconds Gastrointestinal: non tender, soft Extremity: Other (Left knee pain) Neurologic/Psychiatric: Alert, Oriented x3, No Motor/Sensory Deficits, Normal Mood/Affect Skin: Normal Color, Warm/Dry Lymphatic: No Adenopathy Results Lab Laboratory Tests 07/15/18 04:45 07/16/18 07:45 Assessment/Plan Assessment/Plan S/p fall Acute on chronic respiratory failure -Hx of tracheostomy and ARDS -Oxygen at 4L Bilateral pneumonia - Persistent leukocytosis -Repeat 2 view CXR -Merrem -repeat lawson cultures -CXR showed bibasilar infiltrates R>L and Right slightly worse than prior study -PT may need bronchoscopy if she continues to have pulmonary infiltrates/PNA Severe oxygen dependent COPD with AE -SVNS, advair -Oxygen HTN with tachycardia -Toprol, lisinopril per cardiology dementia vs ICU psychosis -Risperdal 0.5mg BID and PRN Haldol Depression CAD Obesity HX of bipolar/anxiety MERCEDES GARZA DO Jul 16, 2018 08:35
--- NOTE | 2018-07-16 08:40 | Pulmonary Progress Note ---
Sepsis Event Evaluation Height, Weight, BMI Height: 5'7.00" Weight: 226lbs. 6.0oz. 102.721662tb; 37.0 BMI Method:Stated Exam Exam Vital Signs Date Time Temp Pulse Resp B/P (MAP) Pulse Ox O2 Delivery O2 Flow Rate FiO2 07/16/18 07:46 93 Nasal Cannula 2.00 07/16/18 03:00 90 Nasal Cannula 2.00 07/16/18 00:00 96.6 88 18 142/74 (96) 99 2.00 07/15/18 20:15 Nasal Cannula 2.00 07/15/18 19:44 94 Nasal Cannula 2.00 07/15/18 16:40 98.2 93 20 137/87 (104) 99 Nasal Cannula 3.00 07/15/18 11:36 96 Nasal Cannula 2.00 I & O 07/16/18 07:00 Intake Total 1970 ml Output Total 1075 ml Balance 895 ml Height & Weight Height: 5'7.00" Weight: 226lbs. 6.0oz. 102.348575kg; 37.0 BMI Method:Stated General Appearance: No Apparent Distress, WD/WN HEENT: Normal ENT Inspection Neck: Normal Inspection, Non Tender Respiratory: Decreased Breath Sounds Cardiovascular: Regular Rate, Rhythm, No Murmur Capillary Refill: Less Than 3 Seconds Gastrointestinal: non tender, soft Extremity: Other (Left knee pain) Neurologic/Psychiatric: Alert, Oriented x3, No Motor/Sensory Deficits, Normal Mood/Affect Skin: Normal Color, Warm/Dry Lymphatic: No Adenopathy Results Lab Laboratory Tests 07/15/18 04:45 07/16/18 07:45 Assessment/Plan Assessment/Plan S/p fall Acute on chronic respiratory failure -Hx of tracheostomy and ARDS -Oxygen at 4L Bilateral pneumonia - Persistent leukocytosis -Repeat 2 view CXR -Merrem -repeat lawson cultures -CXR showed bibasilar infiltrates R>L and Right slightly worse than prior study -If pt is agreeable with do bronchoscopy on . Severe oxygen dependent COPD with AE -SVNS, advair -Oxygen HTN with tachycardia -Toprol, lisinopril per cardiology dementia vs ICU psychosis -Risperdal 0.5mg BID and PRN Haldol Depression CAD Obesity HX of bipolar/anxiety MERCEDES GARZA DO Jul 16, 2018 08:40
[2018-07-16] MEDS: FAMOTIDINE 20 MG (PEPCID) TABLET PO SCH (08:52)
[2018-07-16] MEDS: DONEPEZIL 10 MG (ARICEPT) TAB PO SCH (08:52)
[2018-07-16] MEDS: ENOXAPARIN 40 MG/0.4 ML (LOVENOX) SYR SC SCH (08:52)
[2018-07-16] MEDS: guaiFENesin (MUCINEX) 600 MG TAB PO SCH ×2 (08:52→20:51)
[2018-07-16] MEDS: risperiDONE 1 MG (RisperDAL) TAB PO SCH ×2 (08:52→20:51)
[2018-07-16] MEDS: CYCLOBENZAPRINE 10 MG (FLEXERIL) TAB PO SCH ×3 (08:52→20:51)
[2018-07-16] MEDS: lisINopril 10 MG (PRINIVIL) TABLET PO SCH (08:52)
[2018-07-16] MEDS: SUCRALFATE 1 GM (CARAFATE) TAB PO SCH ×3 (08:52→20:51)
[2018-07-16] MEDS: LORATADINE (CLARITIN) 10 MG TAB PO SCH (08:52)
[2018-07-16] MEDS: PANTOPRAZOLE 40 MG (PROTONIX) TAB PO SCH ×2 (08:52→20:51)
[2018-07-16] MEDS: amLODIPine 10 MG (NORVASC) TAB PO SCH (08:52)
[2018-07-16] MEDS: LORazepam 0.5 MG (ATIVAN) TABLET PO SCH (08:52)
[2018-07-16] MEDS: meTOprolol SUCCINATE 100 MG (TOPROL XL) TAB PO SCH ×2 (08:52→20:51)
[2018-07-16] MEDS: MENTHOL/ZINC OXIDE (CALMOSEPTINE) 113 GM TUBE TOP SCH ×2 (08:53→20:52)
[2018-07-16] MEDS: HYDROcodone/APAP 10 MG/325 MG (LORTAB) TAB PO PRN ×2 (08:55→20:51)
[2018-07-16] MEDS ORDERED: amLODIPine 5 MG (NORVASC) TAB PO SCH (09:00)
--- NOTE | 2018-07-16 09:07 | Occupational Ther Daily Note ---
OT Current Status-Daily Note Subjective Pt alert, with nrsg. Pt agrees to therapy. No c/o pain. Pt is self-limiting with daily tasks. Mental Status/Objective Patient Orientation: Person, Place, Time, Situation Therapy Code Descriptions/Definitions Functional [place] Measure: 0=Not Assessed/NA 4=Minimal Assistance 1=Total Assistance 5=Supervision or Setup 2=Maximal Assistance 6=Modified [place] 3=Moderate Assistance 7=Complete [place] ADL-Treatment Pt is self-limiting for all tasks. Pt declined oral care at this time. Assist needed to comb back of hair. Assist needed to don/doff socks. Pt required assistance to thread UE's into hospital gown. Nrsg assisted with toileting hygiene. After therapy, pt sitting in recliner with call light/phone in reach. All needs met in room. OT Short Term Goals Short Term Goals 1=Demonstrate adherence to instructed precautions during ADL tasks. 2=Patient will verbalize/demonstrate understanding of assistive devices/ modifications for ADL. 3=Patient will improve strength/tolerance for activity to enable patient to perform ADL's. OT Armature Inspector Goals Senior [facility] Goals Time Frame: Jul 20, 2018 Grooming(FIM): 6 Bathing(FIM): 5 Upper Body Dressing(FIM): 5 Lower Body Dressing(FIM): 5 Toileting(FIM): 6 Toilet/Commode Transfer(FIM): 6 Additional Goals: 1-Demonstrate ADL Tasks, 2-Verbalize Understanding, 3- ImproveStrength/Fede 1=Demonstrate adherence to instructed precautions during ADL tasks. 2=Patient will verbalize/demonstrate understanding of assistive devices/ modifications for ADL. 3=Patient will improve strength/tolerance for activity to enable patient to perform ADL's. OT Education/Plan Problem List/Assessment Pt to benefit from skilled OT intervention for ADL training, transfers, strengthening, and safety education to increase level of independence and allow safe discharge plan. Discharge Recommendations Plan/Recommendations: Continue POC Treatment Plan/Plan of Care Patient would benefit from OT for education, treatment and training to promote independence in ADL's, mobility, safety and/or upper extremity function for ADL' s. Plan of Care: ADL Retraining, Functional Mobility, UE Funct Exercise/Act Treatment Duration: Jul 20, 2018 Frequency: 5 times per week Estimated Hrs Per Day: .25 hour per day Rehab Potential: Fair Time/GCodes Start Time: 09:00 Stop Time: 09:25 Total Time Billed (hr/min): 25 Billed Treatment Time 1 visit-FA 2 (25 min) PILLO BABCOCK Jul 16, 2018 09:07
--- NOTE | 2018-07-16 09:17 | Cardiology Progress Note ---
Cardiology SOAP Progress Note Subjective: No cardiac complaints. Objective: I&O/Vital Signs 07/16/18 07/16/18 07/16/18 07/16/18 00:00 03:00 07:46 08:00 Temp 96.6 97.2 Pulse 88 76 Resp 18 22 B/P (MAP) 142/74 (96) 149/72 (97) Pulse Ox 99 90 93 98 O2 Delivery Nasal Cannula Nasal Cannula Nasal Cannula O2 Flow Rate 2.00 2.00 2.00 2.00 07/16/18 00:00 Intake Total 1570 ml Output Total 675 ml Balance 895 ml Weight (Pounds): 226 Weight (Ounces): 6.0 Weight (Calculated Kilograms): 102.842004 Constitutional: appears stated age; No AAO x 3, No apparent distress, No PERRL ; well-developed, well-nourished; No other Respiratory: No accessory muscle use, No respiratory distress, No chest tender , No chest expansion is symmetric; chest is bilaterally symmetric; No lungs clear to percussion; lungs clear to auscultation; No crackles, No rhonchi, No rales, No stridor, No wheezing, No pleural rub; other (diminished lower lobes bilat; dyspneic with conversation) Cardiovascular: regular rate-rhythm, S1 and S2 Gastrointestional: No tender, No soft, No round, No distended, No pulsatile mass, No organomegaly, No guarding, No rebound, No tenderness, No hernia, No mass; audible bowel sounds; No abnormal bowel sounds, No abdominal bruits, No spleenomegaly, No other Extremities: No normal range of motion, No non-tender, No normal inspection, No pedal edema, No calf tenderness, No normal capillary refill, No pelvis stable , No calf tenderness, No inflammation, No pedal edema, No slow capillary refill , No swelling, No other, No abrasion, No clubbing, No cyanosis, No ecchymosis, No laceration; no lower extremity edema bilateral; No significant edema, No tenderness, No wound Neurologic/Psychiatric: no motor/sensory deficits, alert, normal mood/affect, oriented x 3, grossly intact Skin: No normal color, No warm/dry, No cyanosis, No cool, No diaphoresis, No damp, No ecchymosis, No jaundice, No mottled, No pallor, No rash, No tattoos/ piercings, No ulcerations, No rash on exposed areas, No ulcerations on exposed areas, No other Results/Procedures: Labs Laboratory Tests 07/16/18 07:45: White Blood Count 10.4, Red Blood Count 4.38, Hemoglobin 12.2, Hematocrit 40, Mean Corpuscular Volume 91, Mean Corpuscular Hemoglobin 28, Mean Corpuscular Hemoglobin Concent 31L, Red Cell Distribution Width 16.9H, Platelet Count 407H, Mean Platelet Volume 10.1, Neutrophils (%) (Auto) 61, Lymphocytes (%) (Auto) 22 , Monocytes (%) (Auto) 11, Eosinophils (%) (Auto) 6, Basophils (%) (Auto) 1, Neutrophils # (Auto) 6.4, Lymphocytes # (Auto) 2.3, Monocytes # (Auto) 1.1H, Eosinophils # (Auto) 0.6H, Basophils # (Auto) 0.1, Sodium Level 145, Potassium Level 3.9, Chloride Level 107, Carbon Dioxide Level 26, Anion Gap 12, Blood Urea Nitrogen 13, Creatinine 0.72, Estimat Glomerular Filtration Rate > 60, BUN/ Creatinine Ratio 18, Glucose Level 94, Calcium Level 9.2, Corrected Calcium 9.7 , Phosphorus Level 4.0, Magnesium Level 1.9, Total Bilirubin 0.2, Aspartate Amino Transf (AST/SGOT) 19, Alanine Aminotransferase (ALT/SGPT) 16, Alkaline Phosphatase 102, Total Protein 6.4, Albumin 3.4 Microbiology 07/12/18 Blood Culture - Preliminary, Resulted No growth 07/05/18 MRSA Screen - Final, Complete MRSA not isolated 07/12/18 Urine Culture - Final, Complete NO GROWTH A/P: Assessment/Dx: Severe hypertension, COPD, Pneumonia, Psychiatric disorder Plan: Severe hypertension. Continue Toprol-XL 100 mg twice a day. Continue lisinopril at current dosage. Elevated BP - increase norvasc to 10mg daily from 5mg daily. Partly elevated blood pressure due to agitation as well. Echocardiogram done this hospitalization demonstrates normal LVEF with no significant valvular heart disease. Thank you for your consultation. Please call me if you have any questions. Kirsten Reis MD, FACP, FACC, FSCAI, FHRS, CCDS Interventional Cardiology Cardiac Electrophysiology Vascular Medicine and Endovascular Interventions Miguel REIS MD Jul 16, 2018 9:17 am
[2018-07-16] MEDS: MEROPENEM 500 MG/SWFI 10 ML IV PUSH IV SCH ×6 (11:07→21:59)
--- NOTE | 2018-07-16 11:30 | Physical Therapy Daily Note ---
PT Daily Note-Current Subjective Patient reluctantly agrees to PT. Continues to be emotional with left knee pain. Noted edema left knee. Pain Numeric Pain Scale: 8 Location: Left Location Body Site: Knee Pain Description: Acute Mental Status Patient Orientation: Person, Time, Situation Attachments: Oxygen Transfers Therapy Code Descriptions/Definitions Functional [place] Measure: 0=Not Assessed/NA 4=Minimal Assistance 1=Total Assistance 5=Supervision or Setup 2=Maximal Assistance 6=Modified [place] 3=Moderate Assistance 7=Complete [place] Therapy Quality Codes: 6 Independent with activity with or without an assistive device 5 Patient requires set up or clean up by helper. Patient completes activity by themselves 4 Supervision or touching assist (CGA). [place] provide cues , steadying assist 3 The helper provides less than half the effort to complete the activity 2 The helper provides more than half the effort to complete the activity 1 Dependent. The helper does all the effort to complete an activity 7 Patient refused to complete or attempt activity 9 The patient did not perform the activity before the current illness or injury 88 Not attempted due to Medical conditions or safety concerns Transfers (B, C, W/C) (FIM): 5 Scootin Sit to/from Stand: 5 close SBA with sit to stand to FWW from recliner Weight Bearing Right Lower Extremity: Right Full Weight Bearing Left Lower Extremity: Left Full Weight Bearing Gait Training Gait (FIM): 1 Distance (FIM): 1=up to 49 ft Distance: 8' x 2 Gait Level of Assist: 4 Gait Persons Needed: 1 Gait Assistive Device: FWW patient self limites due to left knee patient and becomes highly emotional with this task. Patient continues to have difficulty with weight bearing left LE due to knee pain. Exercises Supine Ex: Ankle pumps, Quad Set, Heel Slides Supine Reps: 15 (in recliner) Seated Therapy Exercises: Ankle pumps, Long arc quads, Hip flexion Seated Reps: 15 Assessment Patient becomes highly emotional during treatment due to left knee pain. RN has issued pain medication prior to PT arrival. PT to increase activity as tolerated by patient. PT Manager Inventory Management Goals Skilled Nursing Goals PT Skilled Nursing Goals Time Frame: Jul 27, 2018 Transfers (B,C,W/C) (FIM): 6 Gait (FIM): 6 Gait distance (FIM): 3=150 ft Gait Assistive Device: FWW PT Plan Treatment/Plan Treatment Plan: Continue Plan of Care Treatment Plan: Bed Mobility, Education, Functional Activity Fede, Functional Strength, Gait, Safety, Therapeutic Exercise, Transfers Treatment Duration: Jul 27, 2018 Frequency: 6 times per week Estimated Hrs Per Day: .5 hour per day Patient and/or Family Agrees t: Yes Time/GCodes Time In: 1101 Time Out: 1117 Total Billed Treatment Time: 16 Total Billed Treatment 1 visit FA 16 min DELMI TORRES PT Jul 16, 2018 11:30
[2018-07-16] MEDS: IBUPROFEN 800 MG (MOTRIN) TAB PO PRN (11:36)
[2018-07-16] MEDS: RT-ADVAIR HFA 115/21 MCG PER PUFF IH SCH ×2 (11:43→19:13)
--- NOTE | 2018-07-16 15:11 | NUR ---
CM/SS, continued exploration for post hospital care. Visited with patient, she states she will not discharge to any community nursing facility and that she will simply return home. Knife Blade Polisher attempted to discuss the obvious, that patient is in no condition at this time to independently care for self, prepare meals, manage daily needs/activities. Knife Blade Polisher again repeated she will not do anything but return home. Knife Blade Polisher coordinated a screening for [facility] through [facility] [employer] and Stephanie responded. Patient was not immediately receptive, but then did agree to the interview. Patient has Medicare only and, therefore, incurs co-pays for all services covered by Medicare each benefit period. This includes her recent skilled stay at [facility], hospitalizations, and post hospital care. Patient is not able to pay the 20% daily rate to enter a SNF because she has used her 20 days paid in full this benefit period. Will continue to pursue a safe discharge plan for patient.
[2018-07-16 15:40] VITALS: BP 119/66
--- NOTE | 2018-07-16 16:17 | NUR ---
PT REQUESTING MIRILAX DR MEI NOTIFIED AND NEW ORDERS RECEIVED.
[2018-07-16] MEDS: POLYETHYLENE GLYCOL 17 GM (MIRALAX) PACK PO SCH (20:50)
[2018-07-16] MEDS: OLANZapine 5 MG (ZyPREXA) TAB PO SCH (20:51)
[2018-07-16] MEDS: LORazepam 1 MG (ATIVAN) TAB PO SCH (20:51)
[2018-07-17] VITALS: BP 132/78
[2018-07-17] MEDS: RT-ALBUTEROL/IPRATROPIUM 3 ML (DUONEB) VIAL INH SCH ×6 (04:05→22:27)
[2018-07-17] MEDS: MEROPENEM 500 MG/SWFI 10 ML IV PUSH IV SCH ×8 (04:16→22:36)
[2018-07-17] MEDS: LACTOBACILLUS ACIDOPHILUS (PROBIOTIC) CAPSULE PO SCH ×3 (06:06→17:14)
--- NOTE | 2018-07-17 07:46 | Consultation ---
History of Present Illness History of Present Illness Patient Consulted On(miguel/time) 07/17/18 07:42 Date Seen by Provider: Jul 17, 2018 Time Seen by Provider: 07:42 Reason for Visit: fall, knee pain History of Present Illness fell prior to hospital admission. Ortho consulted due to left knee pain. Xrays of LLE show no fracture. She does have moderate degenerative changes of the left knee. She is requesting a knee injection. Allergies and Home Medications Allergies Coded Allergies: clindamycin (Unverified Allergy, Mild, HIVES, 11/21/09) meperidine (Unverified Allergy, Mild, HAS RECEIVED FENTANYL IN THE PAST, ) morphine (Unverified Allergy, Mild, 11/21/09) codeine (Verified Adverse Reaction, Unknown, NAUSEA, 11/21/09) Home Medications Albuterol Sulfate 1 Puff Puff, 2 PUFF IH QID, (Reported) 1 PUFF = 90 MCG Atorvastatin Calcium 10 Mg Tablet, 10 MG PO HS, (Reported) Cetirizine HCl 10 Mg Tablet, 10 MG PO DAILY, (Reported) Cholecalciferol (Vitamin D3) 2,000 Unit Capsule, 2,000 UNIT PO DAILY, (Reported) Cyanocobalamin (Vitamin B-12) 500 Mcg Tablet, 1,000 MCG PO DAILY, (Reported) Cyclobenzaprine HCl 10 Mg Tablet, 10 MG PO TID, (Reported) Donepezil HCl 10 Mg Tablet, 10 MG PO DAILY, (Reported) Enoxaparin Sodium 40 Mg/0.4 Ml Syringe, 40 MG SQ DAILY, (Reported) Famotidine 20 Mg Tablet, 20 MG PO DAILY, (Reported) Fluticasone/Salmeterol 12 Gm Hfa.aer.ad, 1 PUFF IH BID, (Reported) Hydrocodone/Acetaminophen 1 Each Tablet, 1 EACH PO TID PRN for PAIN-MODERATE, ( Reported) Meloxicam 15 Mg Tablet, 15 MG PO DAILY, (Reported) Metoprolol Succinate 100 Mg Tab.er.24h, 100 MG PO DAILY, (Reported) Multivitamin 1 Each Tablet, 1 EACH PO DAILY, (Reported) Olanzapine 20 Mg Tablet, 40 MG PO HS, (Reported) Ondansetron 8 Mg Tab.rapdis, 8 MG PO Q6H PRN for NAUSEA/VOMITING-1ST LINE, ( Reported) Pantoprazole Sodium 40 Mg Tablet., 40 MG PO BID, (Reported) Sucralfate 1 Gm Tablet, 1 GM PO TID, (Reported) Patient Home Medication List Home Medication List Reviewed: Yes Past Khkxnxw-Xjzwhg-Ggkjun Hx Past Med/Social Hx: Reviewed Nursing Past Med/Soc Hx, Reviewed and Corrections made Patient Social History Alcohol Use: Denies Use Recreational Drug Use: No Smoking Status: Former Smoker Type Used: Cigarettes 2nd Hand Smoke Exposure: Yes Recent Foreign Travel: No Contact w/Someone Who Travel: No Recent Infectious Disease Expo: No Recent Hopitalizations: Yes Physical Abuse: No Sexual Abuse: No Immunizations Up To Date Tetanus Booster (TDap): Unknown PED Vaccines UTD: No Date of Pneumonia Vaccine: Mar 11, 2011 Date of Influenza Vaccine: Feb 22, 2018 Seasonal Allergies Seasonal Allergies: No Past Medical History Surgeries: Yes (PILONIDAL CYST, segmoid Colectomy 09/29/09, BOWEL RESECTION, COLOSTOMY ) Appendectomy, Bowel Surgery, Breast, Section, Hysterectomy, Oophorectomy, Tracheostomy Respiratory: Yes Chronic Bronchitis, COPD Currently Using CPAP: No Currently Using BIPAP: No Cardiac: Yes (SVT) Chronic Edema/Swelling, Coronary Artery Disease, High Cholesterol, Hypertension Neurological: Yes Headaches /Migraines Reproductive Disorders: Yes (RIGHT BREAST BENING LUMP-REMOVED) Female Reproductive Disorders: Denies Sexually Transmitted Disease: No HIV/AIDS: No Genitourinary: No Gastrointestinal: Yes Gastroesophageal Reflux, Hiatal Hernia, Ulcer Musculoskeletal: Yes (CHRONIC GENERALIZED PAIN ) Arthritis Endocrine: Yes Hypothyroidsim, Lupus HEENT: No Loss of Vision: Denies Hearing Impairment: Denies Cancer: No Psychosocial: Yes Anxiety, Bipolar, Personality Disorder, Depression Integumentary: Yes Psoriasis Blood Disorders: Yes (ANEMIA POST OP) Family Medical History Arthritis 19 FATHER 19 MOTHER Cardiovascular disease 19 FATHER Cataracts 19 MOTHER Completed stroke 19 MOTHER Dysphasia 19 FATHER FH: cirrhosis 19 MOTHER Glaucoma 19 MOTHER Hypercholesterolemia 19 FATHER Hypertension 19 FATHER 19 MOTHER Myocardial infarction 19 FATHER Osteoporosis 19 MOTHER No Family History of: AIDS Abdominal aortic aneurysm Teller's disease Alcoholism Alzheimer's disease Aphasia Asthma Cancer of mouth Colon cancer Congenital disease Congenital heart disease Coronary thrombosis Cystic fibrosis Deafness or hearing loss Dementia Diabetes mellitus Drug abuse Fibrocystic disease of breast Gastroenteritis Headache disorder Infertility Kidney disease Neoplasm Not obtainable due to adoption Parkinson's disease Prostate cancer Psychosocial problem Respiratory disorder Seizure disorder Severe allergy Thyroid disease Tuberculosis Visual disorder GI Disease Review of Systems-General Constitutional: no symptoms reported Musculoskeletal: joint pain, joint swelling Skin: no symptoms reported Physical Exam-General Problems Physical Exam Vital Signs Vital Signs - First Documented 07/11/18 07/14/18 00:37 07:33 Temp 96.9 Pulse 80 Resp 20 B/P (MAP) 145/91 (109) Pulse Ox 98 O2 Delivery Nasal Cannula O2 Flow Rate 4.00 FiO2 28 Capillary Refill : Less Than 3 SecondsLess Than 3 Seconds General Appearance: WD/WN, no apparent distress Extremities: normal range of motion, no pedal edema, no calf tenderness, normal capillary refill, other (diffuse tenderness left knee, exam limited due to body habitus) Neurologic/Psychiatric: enrober II-XII nml as tested, no motor/sensory deficits Assessment/Plan Assessment/Plan Admission Diagnosis/Plan A: Secondary Moderate Osteoarthritis left knee secondary to morbid obesity morbid obesity secondary to caloric intake knee pain P: Knee injection today, activity as tolerated. Clinical Quality Measures DVT/VTE Risk/Contraindication: Risk Factor Score Per Nursin RFS Level Per Nursing on Admit: 4+=Very High MALCOM CELESTE APRN Jul 17, 2018 07:46
[2018-07-17] MEDS ORDERED: methylPREDNISolone 80 MG/ML (DEPO MEDROL) VIAL IM NR (07:51)
[2018-07-17] MEDS ORDERED: LIDOCAINE 1% INJ 20 ML 20 ML VIAL INJ NR (07:53)
--- NOTE | 2018-07-17 07:54 | Procedure/Intervention Note ---
Procedure Note Vital Signs Vital Signs Date Time Temp Pulse Resp B/P (MAP) Pulse Ox O2 Delivery O2 Flow Rate FiO2 07/17/18 00:00 97.0 84 20 132/78 (96) Nasal Cannula 2.00 07/16/18 19:55 96 07/14/18 07:33 28 Procedure Note Pre Procedure Diagnosis: Secondary OA left knee secondary to morbid obesity Post Procedure Diagnosis: Secondary OA left knee secondary to morbid obesity Procedure: Left Knee intra-articular injection After obtaining consent from the patient, the anteromedial aspect of the left knee was marked, then sterilized with alcohol. A 27Ga needle was directed into the joint and 1cc of 80mg depomedrol mixed with 2cc of 1% lidocaine was injected into the knee joint without resistance under sterile conditions. The needle was removed and a bandaid was applied. Injection precautions were given to the patient. Overall, she tolerated the procedure well. MALCOM CELESTE APRN Jul 17, 2018 07:54
[2018-07-17 08:00] VITALS: BP 167/83
[2018-07-17] MEDS: DONEPEZIL 10 MG (ARICEPT) TAB PO SCH (08:01)
[2018-07-17] MEDS: HYDROcodone/APAP 10 MG/325 MG (LORTAB) TAB PO PRN ×2 (08:01→17:15)
[2018-07-17] MEDS: risperiDONE 1 MG (RisperDAL) TAB PO SCH ×2 (08:01→21:14)
[2018-07-17] MEDS: guaiFENesin (MUCINEX) 600 MG TAB PO SCH ×2 (08:01→21:14)
[2018-07-17] MEDS: SUCRALFATE 1 GM (CARAFATE) TAB PO SCH ×3 (08:01→21:14)
[2018-07-17] MEDS: lisINopril 10 MG (PRINIVIL) TABLET PO SCH (08:01)
[2018-07-17] MEDS: amLODIPine 10 MG (NORVASC) TAB PO SCH (08:01)
[2018-07-17] MEDS: LORazepam 0.5 MG (ATIVAN) TABLET PO SCH (08:01)
[2018-07-17] MEDS: FAMOTIDINE 20 MG (PEPCID) TABLET PO SCH (08:01)
[2018-07-17] MEDS: PANTOPRAZOLE 40 MG (PROTONIX) TAB PO SCH ×2 (08:01→21:14)
[2018-07-17] MEDS: CYCLOBENZAPRINE 10 MG (FLEXERIL) TAB PO SCH ×3 (08:01→21:14)
[2018-07-17] MEDS: meTOprolol SUCCINATE 100 MG (TOPROL XL) TAB PO SCH ×2 (08:01→21:13)
[2018-07-17] MEDS: MENTHOL/ZINC OXIDE (CALMOSEPTINE) 113 GM TUBE TOP SCH ×2 (08:02→21:16)
[2018-07-17] MEDS: ENOXAPARIN 40 MG/0.4 ML (LOVENOX) SYR SC SCH (08:02)
--- NOTE | 2018-07-17 08:28 | Progress Note (SOAP) ---
Subjective Time Seen by a Provider: 08:26 Subjective/Events-last exam Patient had chest shot in the knee with cortisone this a.m. Patient to have bronchoscopy done tomorrow. Patient not having any difficulty breathing. Patient voices no complaints today Objective Exam Vital Signs Date Time Temp Pulse Resp B/P (MAP) Pulse Ox O2 Delivery O2 Flow Rate FiO2 07/17/18 00:00 97.0 84 20 132/78 (96) Nasal Cannula 2.00 07/16/18 19:55 96 Nasal Cannula 2.00 07/16/18 19:12 96 Nasal Cannula 2.00 07/16/18 15:40 97.6 91 20 119/66 (83) 98 Nasal Cannula 2.00 07/16/18 15:06 96 Nasal Cannula 2.00 07/16/18 11:41 93 Nasal Cannula 2.00 07/16/18 08:38 Nasal Cannula 2.00 I & O 07/17/18 07:00 Intake Total 1210 ml Balance 1210 ml Capillary Refill : Less Than 3 SecondsLess Than 3 Seconds General Appearance: No Apparent Distress, WD/WN HEENT: Normal ENT Inspection Neck: Full Range of Motion, Normal Inspection Respiratory: No Accessory Muscle Use, No Respiratory Distress, Decreased Breath Sounds Cardiovascular: Regular Rate, Rhythm, No Murmur Results Lab Microbiology 07/12/18 Blood Culture - Preliminary, Resulted No growth 07/05/18 MRSA Screen - Final, Complete MRSA not isolated 07/12/18 Urine Culture - Final, Complete NO GROWTH Assessment/Plan Assessment/Plan Assess & Plan/Chief Complaint Fall with no fractures. Bilateral pneumonia. COPD. Bipolar. Dementia. Hypertension. History of tobaccoism. . 07/09/18. Fall with no fractures. Bilateral pneumonia. COPD. Bipolar. Dementia. Has some dementia. Hypertension. Confusion.. . 07/10/18. Fall with no fracture. Bilateral pneumonia. COPD. Bipolar. Dementia. Confusion. Agitation. Hypertension better. Patient not confused this morning and resting comfortably. Consult social media developer. . 07/11/18 for with no fractures. Bilateral pneumonia improving. COPD. Bipolar. Confusion getting less according to patient. Agitation. Dementia. Consult mental health. Hypertension better. . 07/12/18. 4 with no fractures. Pneumonia. COPD. Bipolar. Dementia. Pain in the left knee. Leukocytosis. . 07/15/18. Fall. Pneumonia. COPD. Bipolar. Dementia. Left knee pain. Leukocytosis. Hypertension. . 07/16/18. Fall with no fracture. Pneumonia. COPD. Bipolar. Dementia. Hypertension. . 07/17/18 for with no fractures. Bilateral pneumonia. COPD. Bipolar. Dementia. Patient have bronchoscopy tomorrow. Clinical Quality Measures DVT/VTE Risk/Contraindication: Risk Factor Score Per Nursin RFS Level Per Nursing on Admit: 4+=Very High JOCELYNE MEI DO Jul 17, 2018 08:28
--- NOTE | 2018-07-17 09:20 | Cardiology Progress Note ---
Cardiology SOAP Progress Note Subjective: No cardiac complaints Objective: I&O/Vital Signs 07/17/18 07/17/18 00:00 08:00 Temp 97.0 Pulse 84 Resp 20 B/P (MAP) 132/78 (96) O2 Delivery Nasal Cannula Nasal Cannula O2 Flow Rate 2.00 2.00 07/16/18 23:59 Intake Total 1000 ml Balance 1000 ml Weight (Pounds): 230 Weight (Ounces): 1.0 Weight (Calculated Kilograms): 104.301679 Constitutional: appears stated age; No AAO x 3, No apparent distress, No PERRL ; well-developed, well-nourished; No other Respiratory: No accessory muscle use, No respiratory distress, No chest tender , No chest expansion is symmetric; chest is bilaterally symmetric; No lungs clear to percussion; lungs clear to auscultation; No crackles, No rhonchi, No rales, No stridor, No wheezing, No pleural rub; other (diminished lower lobes bilat; dyspneic with conversation) Cardiovascular: regular rate-rhythm, S1 and S2 Gastrointestional: No tender, No soft, No round, No distended, No pulsatile mass, No organomegaly, No guarding, No rebound, No tenderness, No hernia, No mass; audible bowel sounds; No abnormal bowel sounds, No abdominal bruits, No spleenomegaly, No other Extremities: No normal range of motion, No non-tender, No normal inspection, No pedal edema, No calf tenderness, No normal capillary refill, No pelvis stable , No calf tenderness, No inflammation, No pedal edema, No slow capillary refill , No swelling, No other, No abrasion, No clubbing, No cyanosis, No ecchymosis, No laceration; no lower extremity edema bilateral; No significant edema, No tenderness, No wound Neurologic/Psychiatric: no motor/sensory deficits, alert, normal mood/affect, oriented x 3, grossly intact Skin: No normal color, No warm/dry, No cyanosis, No cool, No diaphoresis, No damp, No ecchymosis, No jaundice, No mottled, No pallor, No rash, No tattoos/ piercings, No ulcerations, No rash on exposed areas, No ulcerations on exposed areas, No other Results/Procedures: Labs Microbiology 07/12/18 Blood Culture - Preliminary, Resulted No growth 07/05/18 MRSA Screen - Final, Complete MRSA not isolated 07/12/18 Urine Culture - Final, Complete NO GROWTH A/P: Assessment/Dx: Severe hypertension, COPD, Pneumonia, Psychiatric disorder Plan: Severe hypertension - better but still systolic BP is 149mmhg. Continue Toprol- XL 100 mg twice a day, norvasc 10. Increase lisinopril to 20mg daily. Echocardiogram done this hospitalization demonstrates normal LVEF with no significant valvular heart disease. Thank you for your consultation. Please call me if you have any questions. Kirsten Reis MD, FACP, FACC, FSCAI, FHRS, CCDS Interventional Cardiology Cardiac Electrophysiology Vascular Medicine and Endovascular Interventions Miguel REIS MD Jul 17, 2018 9:19 am
--- NOTE | 2018-07-17 10:02 | Physical Therapy Daily Note ---
PT Daily Note-Current Subjective Pt was up in recliner and agreed to PT. Pt reports that just sitting she has no L knee pain. Pain Numeric Pain Scale: 0-No Pain Location: No Pain Reported, Left Location Body Site: Knee Mental Status Patient Orientation: Person Attachments: Oxygen (2L) Transfers Therapy Code Descriptions/Definitions Functional [place] Measure: 0=Not Assessed/NA 4=Minimal Assistance 1=Total Assistance 5=Supervision or Setup 2=Maximal Assistance 6=Modified [place] 3=Moderate Assistance 7=Complete [place] Therapy Quality Codes: 6 Independent with activity with or without an assistive device 5 Patient requires set up or clean up by helper. Patient completes activity by themselves 4 Supervision or touching assist (CGA). [place] provide cues , steadying assist 3 The helper provides less than half the effort to complete the activity 2 The helper provides more than half the effort to complete the activity 1 Dependent. The helper does all the effort to complete an activity 7 Patient refused to complete or attempt activity 9 The patient did not perform the activity before the current illness or injury 88 Not attempted due to Medical conditions or safety concerns Transfers (B, C, W/C) (FIM): 3 Sit to/from Stand: 3 Weight Bearing Right Lower Extremity: Right Full Weight Bearing Left Lower Extremity: Left Full Weight Bearing Exercises Seated Therapy Exercises: Ankle pumps, Long arc quads, Hip flexion, Hip abd/add Seated Reps: 15 Standing: Heel/toe raises, Marching Standing Reps: 10 Assessment Current Status: Poor Progress Pt requires forward momentum to perform sit<>stand and needs cues on how to make transfer successful. Pt requires mod A for sit<>stand to FWW from recliner. Pt was able to perform standing ex poorly. Pt requested to perform sitting ex instead of standing. Pt was able to perform sitting LE ex with poor effort. Pt reported that her L knee now hurts. Pt is in recliner with all needs met. PT Dog Control Officer Goals Mcc Goals PT Dog Control Officer Goals Time Frame: Jul 27, 2018 Transfers (B,C,W/C) (FIM): 6 Gait (FIM): 6 Gait distance (FIM): 3=150 ft Gait Assistive Device: FWW PT Plan Problem List Problem List: Activity Tolerance, Functional Strength, Safety, Balance, Gait, Transfer, Bed Mobility, ROM Treatment/Plan Treatment Plan: Continue Plan of Care Treatment Plan: Bed Mobility, Education, Functional Activity Fede, Functional Strength, Gait, Safety, Therapeutic Exercise, Transfers Treatment Duration: Jul 27, 2018 Frequency: 6 times per week Estimated Hrs Per Day: .5 hour per day Patient and/or Family Agrees t: Yes Safety Risks/Education Patient Education: Transfer Techniques, Correct Positioning, Safety Issues Teaching Recipient: Patient Teaching Methods: Demonstration, Discussion Response to Teaching: Reinforcement Needed Time/GCodes Time In: 944 Time Out: 954 Total Billed Treatment Time: 10 Total Billed Treatment 1 visit EX 10 min CLAU SALAZAR PT Jul 17, 2018 10:02
[2018-07-17] MEDS: LORATADINE (CLARITIN) 10 MG TAB PO SCH (10:47)
[2018-07-17] MEDS: RT-ADVAIR HFA 115/21 MCG PER PUFF IH SCH ×2 (11:09→18:23)
[2018-07-17 11:13] VITALS: BP 167/83
--- NOTE | 2018-07-17 13:06 | Occupational Ther Daily Note ---
OT Current Status-Daily Note Subjective Pt sitting in chair, agrees to therapy. Mental Status/Objective Therapy Code Descriptions/Definitions Functional [place] Measure: 0=Not Assessed/NA 4=Minimal Assistance 1=Total Assistance 5=Supervision or Setup 2=Maximal Assistance 6=Modified [place] 3=Moderate Assistance 7=Complete [place] Attachments: Oxygen ADL-Treatment Pt requesting shower this morning, RN and nurse aide agree. Pt was transported via recliner to shower room. Sit to stand with moderate assistance using grab bar for balance and safety. Shower chair was placed behind pt and pt was transferred into shower using rolling shower chair. Pt required assist to reach back of head to wash hair. Able to wash bilateral UE, chest, abdomen, tabatha area , and bilateral upper legs. Assist required to wash lower legs and feet, and buttocks. Increased time for bathing. Mod assist to don hospital gown and max assist to don socks. Max assist to don Depends. Pt transferred back to recliner with moderate assistance and cues for safety. Pt combed hair with assist to reach back of head. Pt requires rest breaks throughout treatment. Pt sitting in recliner with needs met, RN and RT present after session. Grooming (FIM): 4 Bathing (FIM): 3 Lower Body Dressing (FIM): 2 OT Short Term Goals Short Term Goals 1=Demonstrate adherence to instructed precautions during ADL tasks. 2=Patient will verbalize/demonstrate understanding of assistive devices/ modifications for ADL. 3=Patient will improve strength/tolerance for activity to enable patient to perform ADL's. OT Penitentiary Goals Tiller Man Goals Time Frame: Jul 20, 2018 Grooming(FIM): 6 Bathing(FIM): 5 Upper Body Dressing(FIM): 5 Lower Body Dressing(FIM): 5 Toileting(FIM): 6 Toilet/Commode Transfer(FIM): 6 Additional Goals: 1-Demonstrate ADL Tasks, 2-Verbalize Understanding, 3- ImproveStrength/Fede 1=Demonstrate adherence to instructed precautions during ADL tasks. 2=Patient will verbalize/demonstrate understanding of assistive devices/ modifications for ADL. 3=Patient will improve strength/tolerance for activity to enable patient to perform ADL's. OT Education/Plan Problem List/Assessment Pt to benefit from skilled OT intervention for ADL training, transfers, strengthening, and safety education to increase level of independence and allow safe discharge plan. Discharge Recommendations Plan/Recommendations: Continue POC Treatment Plan/Plan of Care Patient would benefit from OT for education, treatment and training to promote independence in ADL's, mobility, safety and/or upper extremity function for ADL' s. Plan of Care: ADL Retraining, Functional Mobility, UE Funct Exercise/Act Treatment Duration: Jul 20, 2018 Frequency: 5 times per week Estimated Hrs Per Day: .25 hour per day Rehab Potential: Fair Time/GCodes Start Time: 10:20 Stop Time: 11:11 Total Time Billed (hr/min): 51 Billed Treatment Time 1 visit, ADLx3(51minutes) ALIYAH PORTILLO OT Jul 17, 2018 13:06
[2018-07-17] MEDS: ACETAMINOPHEN 325 MG TABLET PO PRN (14:51)
--- NOTE | 2018-07-17 15:46 | NUR ---
CM/SS, visited with patient about post hospital plan. HHC: Patient agreed to [facility] for RN and PT eval and treat, reviewed agencies in service area, patient has not yet identified her preference. Physician should complete appropriate orders so referral can be completed. DME: Patient states she has home O2, FWW, stool riser. She does not identify other needs; however, she indicates she is using the BSC here. Patient's daughter, Timi Tanner, resides in [place] and works in [employer]. Gore Inserter asked if patient could stay with her for a bit after discharge and before returning home alone. Patient indicates 's house is not set up for walkers or equipment. Patient continues to state her plan is to return home when discharged. Release when medically stable.
--- NOTE | 2018-07-17 16:29 | NUR ---
provided prayer and Communion.
[2018-07-17 16:55] VITALS: BP 129/75
[2018-07-17] MEDS: POLYETHYLENE GLYCOL 17 GM (MIRALAX) PACK PO SCH (21:13)
[2018-07-17] MEDS: OLANZapine 5 MG (ZyPREXA) TAB PO SCH (21:19)
[2018-07-17] MEDS: LORazepam 1 MG (ATIVAN) TAB PO SCH (21:19)
[2018-07-18 00:50] VITALS: BP 148/78
[2018-07-18] MEDS: RT-ALBUTEROL/IPRATROPIUM 3 ML (DUONEB) VIAL INH SCH ×6 (02:24→22:51)
[2018-07-18] MEDS: MEROPENEM 500 MG/SWFI 10 ML IV PUSH IV SCH ×8 (04:11→22:25)
[2018-07-18 04:35] LABS: HEMOGLOBIN 11.9 G/DL (11.5-16.0); MEAN PLATELET VOLUME 10.4 FL (7.4-10.4); RED CELL DISTRIBUTION WIDTH 16.2 % (10.0-14.5); WHITE BLOOD COUNT 11.4 10^3/uL (4.3-11.0)
[2018-07-18 05:05] LABS: BUN/CREATININE RATIO 23; CALCIUM 9.8 MG/DL (8.5-10.1); CARBON DIOXIDE 28 MMOL/L (21-32); CHLORIDE 103 MMOL/L (98-107); CREATININE SERUM 0.75 MG/DL (0.60-1.30); GFR ESTIMATED > 60; GLUCOSE 124 MG/DL (70-105); POTASSIUM 4.3 MMOL/L (3.6-5.0); SODIUM 141 MMOL/L (135-145)
[2018-07-18] MEDS: RT-ADVAIR HFA 115/21 MCG PER PUFF IH SCH ×2 (06:28→19:08)
[2018-07-18] MEDS: LACTOBACILLUS ACIDOPHILUS (PROBIOTIC) CAPSULE PO SCH ×3 (06:35→18:59)
[2018-07-18 08:00] VITALS: BP 132/68
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
--- NOTE | 2018-07-18 08:33 | Cardiology Progress Note ---
Subjective Date Seen by Provider: Jul 18, 2018 Time Seen by Provider: 08:30 Subjective/Events-last exam patient is laying down in bed, denied any chest pain, lethargic Review of Systems General: Fatigue, Malaise HEENT: No Head Aches, No Visual Changes, No Eye Pain, No Ear Pain, No Dysphasia , No Sinus Congestion, No Post Nasal Drip, No Sore Throat, No Other Pulmonary: Dyspnea Cardiovascular: Edema; No: Chest Pain, Palpitations, Orthopnea, Paroxysmal Noc. Dyspnea, Lt Headedness, Other Objective-Cardiology Exam Last Set of Vital Signs Vital Signs 07/17/18 07/18/18 07/18/18 11:13 00:50 06:28 Temp 97.5 Pulse 97 Resp 20 B/P (MAP) 148/78 (101) Pulse Ox 94 O2 Delivery Nasal Cannula O2 Flow Rate 2.00 FiO2 28 Capillary Refill : Less Than 3 SecondsLess Than 3 Seconds I&O Intake and Output 07/18/18 00:00 Intake Total 1650 ml Balance 1650 ml Intake Oral 1640 ml IV Total 10 ml # Voids 8 General: Cooperative, Mild Distress HEENT: Atraumatic, PERRLA Neck: Supple Lungs: Clear to Auscultation, Normal Air Movement Heart: Regular Rate, Normal S1, Normal S2 Abdomen: Normal Bowel Sounds, Soft Extremities: No Clubbing, No Cyanosis Skin: No Rashes, No Breakdown Neuro: Sensation Intact Results Lab Laboratory Tests 07/18/18 04:00 A/P-Cardiology Admission Diagnosis Hypertension Pneumonia Bipolar disorder Assessment/Plan Bilateral pneumonia, managed by primary team, possible bronchoscopy Severe hypertension, better control at this time. Continue to monitor blood pressure Psychiatric disorder, managed by primary care team Clinical Quality Measures DVT/VTE Risk/Contraindication: Risk Factor Score Per Nursin RFS Level Per Nursing on Admit: 4+=Very High LORIE MATOS MD Jul 18, 2018 08:33
[2018-07-18] MEDS: fentaNYL INJECTION 100 MCG/2 ML AMP IV PRN (08:49)
[2018-07-18] MEDS ORDERED: MIDAZOLAM 2 MG/2 ML (VERSED) VIAL ONE (09:19)
[2018-07-18] MEDS ORDERED: proPOfol 200 MG/20 ML (DIPRIVAN) VIAL IV ONE ×2 (09:19→09:56)
[2018-07-18] MEDS ORDERED: LACTATED RINGERS 1,000 ML IV ONE (09:20)
[2018-07-18] MEDS: LACTATED RINGERS 1,000 ML IV SCH ×3 (09:30→16:04)
--- NOTE | 2018-07-18 10:32 | Physical Therapy Progress Note ---
Therapy Progress Note Attempted treatment this morning but patient was having a bronchoscopy done. Will try back later. CLAU SALAZAR PT Jul 18, 2018 10:32
--- NOTE | 2018-07-18 11:11 | Anesthesia-General Post-Op ---
MAC Patient Condition Mental Status/LOC: Same as Preop Cardiovascular: Satisfactory Nausea/Vomiting: Absent Respiratory: Satisfactory Pain: Controlled Complications: Absent Post Op Complications Complications None Follow Up Care/Instructions Patient Instructions None needed. Anesthesiology Discharge Order Discharge Order Patient is doing well, no complaints, stable vital signs, no apparent adverse anesthesia problems. No complications reported per nursing. TERRY CASTRO CRNA Jul 18, 2018 11:11
--- NOTE | 2018-07-18 11:15 | Diagnostic Imaging Report ---
INDICATION: Post bronch. Correlation is made with prior study from 07/15/2018. Heart size is stable. There is some pleural plaquing overlying the right chest, similar to prior study. No pneumothorax is identified, status post bronchoscopy. There is no effusion or infiltrate. IMPRESSION: No evidence of pneumothorax. Dictated by: Dictated on workstation # [id number]
[2018-07-18] MEDS: ENOXAPARIN 40 MG/0.4 ML (LOVENOX) SYR SC SCH (11:18)
[2018-07-18] MEDS: meTOprolol SUCCINATE 100 MG (TOPROL XL) TAB PO SCH ×2 (11:18→21:17)
[2018-07-18] MEDS: LORazepam 0.5 MG (ATIVAN) TABLET PO SCH (11:18)
[2018-07-18] MEDS: guaiFENesin (MUCINEX) 600 MG TAB PO SCH ×2 (11:18→21:14)
[2018-07-18] MEDS: CYCLOBENZAPRINE 10 MG (FLEXERIL) TAB PO SCH ×3 (11:19→21:18)
[2018-07-18] MEDS: PANTOPRAZOLE 40 MG (PROTONIX) TAB PO SCH ×2 (11:19→21:18)
[2018-07-18] MEDS: lisINopril 20 MG (PRINIVIL) TABLET PO SCH (11:19)
[2018-07-18] MEDS: FAMOTIDINE 20 MG (PEPCID) TABLET PO SCH (11:19)
[2018-07-18] MEDS: DONEPEZIL 10 MG (ARICEPT) TAB PO SCH (11:19)
[2018-07-18] MEDS: amLODIPine 10 MG (NORVASC) TAB PO SCH (11:19)
[2018-07-18] MEDS: LORATADINE (CLARITIN) 10 MG TAB PO SCH (11:19)
[2018-07-18] MEDS: MENTHOL/ZINC OXIDE (CALMOSEPTINE) 113 GM TUBE TOP SCH ×2 (11:20→21:18)
[2018-07-18] MEDS: SUCRALFATE 1 GM (CARAFATE) TAB PO SCH ×3 (11:20→21:17)
[2018-07-18] MEDS: risperiDONE 1 MG (RisperDAL) TAB PO SCH ×2 (11:22→21:17)
--- NOTE | 2018-07-18 11:39 | Physical Therapy Daily Note ---
PT Daily Note-Current Subjective Pt was in bed after returning from procedure. Pt reluctantly agrees to PT. Mental Status Patient Orientation: Person Attachments: Oxygen, IV Transfers Therapy Code Descriptions/Definitions Functional [place] Measure: 0=Not Assessed/NA 4=Minimal Assistance 1=Total Assistance 5=Supervision or Setup 2=Maximal Assistance 6=Modified [place] 3=Moderate Assistance 7=Complete [place] Therapy Quality Codes: 6 Independent with activity with or without an assistive device 5 Patient requires set up or clean up by helper. Patient completes activity by themselves 4 Supervision or touching assist (CGA). [place] provide cues , steadying assist 3 The helper provides less than half the effort to complete the activity 2 The helper provides more than half the effort to complete the activity 1 Dependent. The helper does all the effort to complete an activity 7 Patient refused to complete or attempt activity 9 The patient did not perform the activity before the current illness or injury 88 Not attempted due to Medical conditions or safety concerns Transfers (B, C, W/C) (FIM): 4 Scootin Supine to/from Sit: 4 Sit to/from Stand: 4 Weight Bearing Right Lower Extremity: Right Full Weight Bearing Left Lower Extremity: Left Full Weight Bearing Gait Training Gait (FIM): 1 Distance (FIM): 1=up to 49 ft Distance: 5' Gait Level of Assist: 4 Gait Persons Needed: 1 Gait Assistive Device: FWW Assessment Current Status: Fair Progress Nurse in room to give pt her morning meds. Pt was able to perform bed mobility with min A. Pt able to perform transfers sit<>stand with rocking momentum to FWW and min A. Pt requests to use commode. Pt able to amb to commode 5' using FWW and CGA. Pt is now on commode with nurse in room. OT is going to take over with bathroom skills. PT Assisted Goals Assisted Goals PT Assisted Goals Time Frame: Jul 27, 2018 Transfers (B,C,W/C) (FIM): 6 Gait (FIM): 6 Gait distance (FIM): 3=150 ft Gait Assistive Device: FWW PT Plan Problem List Problem List: Activity Tolerance, Functional Strength, Safety, Balance, Gait, Transfer, Bed Mobility, ROM Treatment/Plan Treatment Plan: Continue Plan of Care Treatment Plan: Bed Mobility, Education, Functional Activity Fede, Functional Strength, Gait, Safety, Therapeutic Exercise, Transfers Treatment Duration: Jul 27, 2018 Frequency: 6 times per week Estimated Hrs Per Day: .5 hour per day Patient and/or Family Agrees t: Yes Time/GCodes Time In: 1115 Time Out: 1123 Total Billed Treatment Time: 8 Total Billed Treatment 1 visit FA 8 min DELMI TORRES PT Jul 18, 2018 11:39
--- NOTE | 2018-07-18 11:40 | Occupational Ther Daily Note ---
OT Current Status-Daily Note Subjective Pt alert, sitting on BSC. Took over care from PT. Pt agrees to therapy. Mental Status/Objective Patient Orientation: Person, Place, Time, Situation Therapy Code Descriptions/Definitions Functional [place] Measure: 0=Not Assessed/NA 4=Minimal Assistance 1=Total Assistance 5=Supervision or Setup 2=Maximal Assistance 6=Modified [place] 3=Moderate Assistance 7=Complete [place] Attachments: IV, Oxygen ADL-Treatment Pt able to go from sit to standing with CGA using BSC and FWW. Pt cleansed self after toileting and hiked pants over hips with CGA. Pt ambulated a few steps to transfer into recliner. Pt able to complete own set up to eat late breakfast. After therapy, pt sitting in recliner with nrsg present in room. All needs met in room. Lower Body Dressing (FIM): 3 (Assist to don/doff briefs over feet. Pulls up LE 's and CGA in standing to hike over hips.) Toileting (FIM): 4 Toilet/Commode Transfer (FIM): 4 OT Short Term Goals Short Term Goals 1=Demonstrate adherence to instructed precautions during ADL tasks. 2=Patient will verbalize/demonstrate understanding of assistive devices/ modifications for ADL. 3=Patient will improve strength/tolerance for activity to enable patient to perform ADL's. OT Residential Goals Insurance Healthcare Consultant Goals Time Frame: Jul 20, 2018 Grooming(FIM): 6 Bathing(FIM): 5 Upper Body Dressing(FIM): 5 Lower Body Dressing(FIM): 5 Toileting(FIM): 6 Toilet/Commode Transfer(FIM): 6 Additional Goals: 1-Demonstrate ADL Tasks, 2-Verbalize Understanding, 3- ImproveStrength/Fede 1=Demonstrate adherence to instructed precautions during ADL tasks. 2=Patient will verbalize/demonstrate understanding of assistive devices/ modifications for ADL. 3=Patient will improve strength/tolerance for activity to enable patient to perform ADL's. OT Education/Plan Problem List/Assessment Pt to benefit from skilled OT intervention for ADL training, transfers, strengthening, and safety education to increase level of independence and allow safe discharge plan. Discharge Recommendations Plan/Recommendations: Continue POC Treatment Plan/Plan of Care Patient would benefit from OT for education, treatment and training to promote independence in ADL's, mobility, safety and/or upper extremity function for ADL' s. Plan of Care: ADL Retraining, Functional Mobility, UE Funct Exercise/Act Treatment Duration: Jul 20, 2018 Frequency: 5 times per week Estimated Hrs Per Day: .25 hour per day Rehab Potential: Fair Time/GCodes Start Time: 11:23 Stop Time: 11:35 Total Time Billed (hr/min): 12 Billed Treatment Time 1 visit-FA 1 (12 min) PILLO BABCOCK Jul 18, 2018 11:40
--- NOTE | 2018-07-18 12:04 | Diagnostic Imaging Report ---
Indication: Bronchoscopy. Comparison: CT chest dated 07/15/2018 Findings: Fluoroscopic guidance was provided during bronchoscopy. Image provided shows bronchoscope and needle projecting over the right infrahilar region. Total fluoroscopy time is 6 seconds. Please note, interpreting radiologist was not present during the procedure. impression: 1. Fluoroscopic guidance provided during bronchoscopy. Dictated by: Dictated on workstation # [id number]
--- NOTE | 2018-07-18 12:21 | Pulmonary Progress Note ---
Subjective Time Seen by a Provider: 12:21 Subjective/Events-last exam No complications noted. Sepsis Event Evaluation Height, Weight, BMI Height: 5'7.00" Weight: 228lbs. 2.0oz. 103.614016fx; 37.0 BMI Method:Stated Exam Exam Vital Signs Date Time Temp Pulse Resp B/P (MAP) Pulse Ox O2 Delivery O2 Flow Rate FiO2 07/18/18 08:00 Nasal Cannula 2.00 07/18/18 08:00 97.2 92 20 132/68 (89) Nasal Cannula 2.00 07/18/18 06:28 94 Nasal Cannula 2.00 07/18/18 02:25 92 Nasal Cannula 2.00 07/18/18 00:50 97.5 97 20 148/78 (101) Nasal Cannula 2.00 07/17/18 22:28 96 Nasal Cannula 2.00 07/17/18 20:00 Nasal Cannula 2.00 07/17/18 18:24 96 Nasal Cannula 2.00 07/17/18 16:55 97.2 94 20 129/75 (93) 98 Nasal Cannula 2.00 07/17/18 15:29 95 Nasal Cannula 2.00 I & O 07/18/18 07:00 Intake Total 1440 ml Balance 1440 ml Height & Weight Height: 5'7.00" Weight: 228lbs. 2.0oz. 103.449086zd; 37.0 BMI Method:Stated General Appearance: No Apparent Distress, WD/WN HEENT: Normal ENT Inspection Neck: Normal Inspection, Non Tender Respiratory: No Accessory Muscle Use, No Respiratory Distress, Decreased Breath Sounds Cardiovascular: Regular Rate, Rhythm Capillary Refill: Less Than 3 Seconds Gastrointestinal: non tender, soft Extremity: Normal Capillary Refill, Normal Inspection, Non Tender, Pedal Edema Neurologic/Psychiatric: Alert, Oriented x3, No Motor/Sensory Deficits Skin: Normal Color, Warm/Dry Lymphatic: No Adenopathy Results Lab Laboratory Tests 07/18/18 04:00 Assessment/Plan Assessment/Plan S/p fall Acute on chronic respiratory failure -Hx of tracheostomy and ARDS -Oxygen at 4L Bilateral pneumonia - Persistent leukocytosis -Repeat 2 view CXR -Merrem -repeat lawson cultures -CXR showed bibasilar infiltrates R>L and Right slightly worse than prior study - bronchoscopy on today Severe oxygen dependent COPD with AE -SVNS, advair -Oxygen HTN with tachycardia -Toprol, lisinopril per cardiology dementia vs ICU psychosis -Risperdal 0.5mg BID and PRN Haldol Depression CAD Obesity HX of bipolar/anxiety MERCEDES GARZA DO Jul 18, 2018 12:21
--- NOTE | 2018-07-18 12:24 | Pulmonary Procedures ---
Pulmonary Procedures Date of Procedure Date of Service: Jul 18, 2018 Bronch Bronchoscopy with Fluoroscopy RML bronchoalveolar lavage (BAL), transbronchial washes and, transbronchial brushes X1 . Right mainstem brunchus brush x 1 Preop DX pneumonia Postop DX: same Complications: none After informed consent obtained and formal time out pt was sedated using Fentanyl and Versed. Bronchoscope was advanced through the nare and vocal cords. 1% lidocaine was used to anesthetize vocal cords, epiglottis, clinton, and left/right main stem bronchus. An anatomical tour was undertaken down to the segmental bronchi bilaterally. No endobronchial lesions noted. From the RML a bronchoalveolar lavage (BAL), transbronchial washes and, brushes were obtained. Pt tolerated procedure well. No complications noted. Stat CXR is pending. MERCEDES GARZA DO Jul 18, 2018 12:24
[2018-07-18] MEDS ORDERED: LIDOCAINE PF 2% 5 ML (XYLOCAINE) VIAL INJ ONE (12:25)
[2018-07-18] MEDS ORDERED: LIDOCAINE JELLY 2% 6 ML SYRINGE TOP ONE (12:25)
[2018-07-18] MEDS ORDERED: LIDOCAINE PF 1% 2 ML AMP IJ ONE (12:25)
[2018-07-18 16:05] VITALS: BP 138/70
[2018-07-18] MEDS: HYDROcodone/APAP 10 MG/325 MG (LORTAB) TAB PO PRN ×2 (16:29→23:03)
[2018-07-18] MEDS: POLYETHYLENE GLYCOL 17 GM (MIRALAX) PACK PO SCH (21:15)
[2018-07-18] MEDS: LORazepam 1 MG (ATIVAN) TAB PO SCH (21:16)
[2018-07-18] MEDS: OLANZapine 5 MG (ZyPREXA) TAB PO SCH (21:18)
[2018-07-19] VITALS: BP 122/60
[2018-07-19] MEDS: RT-ALBUTEROL/IPRATROPIUM 3 ML (DUONEB) VIAL INH SCH ×6 (02:40→22:20)
[2018-07-19 04:37] LABS: BASOPHILS # (AUTO) 0.1 10^3/uL (0.0-0.1); BASOPHILS % (AUTO) 0 % (0-10); EOSINOPHILS # (AUTO) 0.3 10^3/uL (0.0-0.3); EOSINOPHILS % (AUTO) 1 % (0-10); HEMATOCRIT 39 % (35-52); HEMOGLOBIN 11.8 G/DL (11.5-16.0); LYMPHOCYTES # (AUTO) 5.6 X 10^3 (1.0-4.0); LYMPHOCYTES % (AUTO) 30 % (12-44); MEAN CORPUSCULAR HEMOGLOBIN 28 PG (25-34); MEAN CORPUSCULAR HGB CONC 31 G/DL (32-36); MEAN CORPUSCULAR VOLUME 92 FL (80-99); MEAN PLATELET VOLUME 10.5 FL (7.4-10.4); MONOCYTES # (AUTO) 1.4 X 10^3 (0.0-1.0); MONOCYTES % (AUTO) 7 % (0-12); NEUTROPHILS # (AUTO) 11.4 X 10^3 (1.8-7.8); NEUTROPHILS % (AUTO) 61 % (42-75); PLATELET COUNT 463 10^3/uL (130-400); RED CELL DISTRIBUTION WIDTH 16.6 % (10.0-14.5); WHITE BLOOD COUNT 18.7 10^3/uL (4.3-11.0)
[2018-07-19] MEDS: MEROPENEM 500 MG/SWFI 10 ML IV PUSH IV SCH ×8 (04:48→23:17)
[2018-07-19 05:00] LABS: BUN/CREATININE RATIO 28; CALCIUM 9.4 MG/DL (8.5-10.1); CARBON DIOXIDE 27 MMOL/L (21-32); CHLORIDE 104 MMOL/L (98-107); CREATININE SERUM 0.79 MG/DL (0.60-1.30); GFR ESTIMATED > 60; GLUCOSE 95 MG/DL (70-105); POTASSIUM 4.1 MMOL/L (3.6-5.0); SODIUM 143 MMOL/L (135-145)
[2018-07-19 05:26] LABS: ATYPICAL LYMPHOCYTES 7 %; EOSINOPHILS % (MANUAL) 2 %; LYMPHOCYTES % (MANUAL) 35 %; MONOCYTES % (MANUAL) 7 %; NEUTROPHILS % (MANUAL) 48 %; RBC MORPH NORMAL
[2018-07-19] MEDS: LACTATED RINGERS 1,000 ML IV SCH (06:21)
[2018-07-19] MEDS: LACTOBACILLUS ACIDOPHILUS (PROBIOTIC) CAPSULE PO SCH ×3 (06:22→18:41)
--- NOTE | 2018-07-19 07:15 | Pulmonary Progress Note ---
Subjective Time Seen by a Provider: 07:15 Sepsis Event Evaluation Height, Weight, BMI Height: 5'7.00" Weight: 229lbs. 2.0oz. 103.940384uq; 37.0 BMI Method:Stated Exam Exam Vital Signs Date Time Temp Pulse Resp B/P (MAP) Pulse Ox O2 Delivery O2 Flow Rate FiO2 07/19/18 02:40 92 Nasal Cannula 2.00 07/19/18 00:00 97.9 82 20 122/60 (80) 94 Nasal Cannula 2.00 07/18/18 22:51 94 Nasal Cannula 2.00 07/18/18 19:45 Nasal Cannula 2.00 07/18/18 19:08 96 Nasal Cannula 2.00 07/18/18 16:05 99.6 90 20 138/70 (92) 100 Nasal Cannula 3.00 07/18/18 15:07 94 Nasal Cannula 2.00 07/18/18 08:00 Nasal Cannula 2.00 07/18/18 08:00 97.2 92 20 132/68 (89) Nasal Cannula 2.00 I & O 07/19/18 07:00 Intake Total 2740 ml Output Total 1375 ml Balance 1365 ml Height & Weight Height: 5'7.00" Weight: 229lbs. 2.0oz. 103.478833ed; 37.0 BMI Method:Stated General Appearance: No Apparent Distress, WD/WN HEENT: Normal ENT Inspection Neck: Normal Inspection, Non Tender Respiratory: No Accessory Muscle Use, No Respiratory Distress, Decreased Breath Sounds Cardiovascular: Regular Rate, Rhythm Capillary Refill: Less Than 3 Seconds Gastrointestinal: non tender, soft Extremity: Normal Capillary Refill, Normal Inspection, Non Tender, Pedal Edema Neurologic/Psychiatric: Alert, Oriented x3, No Motor/Sensory Deficits Skin: Normal Color, Warm/Dry Lymphatic: No Adenopathy Results Lab Laboratory Tests 07/18/18 04:00 07/19/18 04:19 Assessment/Plan Assessment/Plan S/p fall Acute on chronic respiratory failure -Hx of tracheostomy and ARDS -Oxygen Bilateral pneumonia - Persistent leukocytosis -Merrem -repeat lawson cultures -CXR showed bibasilar infiltrates R>L and Right slightly worse than prior study - S/p Bronchoscopy Severe oxygen dependent COPD with AE -SVNS, advair -Oxygen HTN with tachycardia -Toprol, lisinopril per cardiology dementia vs ICU psychosis -Risperdal 0.5mg BID and PRN Haldol Depression CAD Obesity HX of bipolar/anxiety MERCEDES GARZA DO Jul 19, 2018 07:15
[2018-07-19] MEDS: RT-ADVAIR HFA 115/21 MCG PER PUFF IH SCH ×2 (07:17→18:58)
[2018-07-19] MEDS: HYDROcodone/APAP 10 MG/325 MG (LORTAB) TAB PO PRN ×2 (07:53→17:10)
[2018-07-19 08:00] VITALS: BP 184/81
[2018-07-19] MEDS ORDERED: AZITHROMYCIN 500 MG/NS 250 ML IVPB IV NR ×2 (08:30)
--- NOTE | 2018-07-19 09:19 | Occupational Ther Daily Note ---
OT Current Status-Daily Note Subjective Pt sleeping in recliner, woke easily to name. Pt agrees to therapy. No c/o pain at this time. Mental Status/Objective Patient Orientation: Person, Place, Time, Situation Therapy Code Descriptions/Definitions Functional [place] Measure: 0=Not Assessed/NA 4=Minimal Assistance 1=Total Assistance 5=Supervision or Setup 2=Maximal Assistance 6=Modified [place] 3=Moderate Assistance 7=Complete [place] ADL-Treatment Set pt up for sponge bath and grooming. Pt completed grooming by self. Pt able to complete upper body bathing by self and changed own hospital gown. Did have difficulty lifting tied neck of hospital gown over head. Pt stood and cleansed tabatha area and buttocks with close SBA using FWW for stability. PT took over care in room. All needs met in room. Grooming (FIM): 5 OT Short Term Goals Short Term Goals 1=Demonstrate adherence to instructed precautions during ADL tasks. 2=Patient will verbalize/demonstrate understanding of assistive devices/ modifications for ADL. 3=Patient will improve strength/tolerance for activity to enable patient to perform ADL's. OT Fci Goals Fci Goals Time Frame: Jul 20, 2018 Grooming(FIM): 6 Bathing(FIM): 5 Upper Body Dressing(FIM): 5 Lower Body Dressing(FIM): 5 Toileting(FIM): 6 Toilet/Commode Transfer(FIM): 6 Additional Goals: 1-Demonstrate ADL Tasks, 2-Verbalize Understanding, 3- ImproveStrength/Fede 1=Demonstrate adherence to instructed precautions during ADL tasks. 2=Patient will verbalize/demonstrate understanding of assistive devices/ modifications for ADL. 3=Patient will improve strength/tolerance for activity to enable patient to perform ADL's. OT Education/Plan Problem List/Assessment Pt to benefit from skilled OT intervention for ADL training, transfers, strengthening, and safety education to increase level of independence and allow safe discharge plan. Discharge Recommendations Plan/Recommendations: Continue POC Treatment Plan/Plan of Care Patient would benefit from OT for education, treatment and training to promote independence in ADL's, mobility, safety and/or upper extremity function for ADL' s. Plan of Care: ADL Retraining, Functional Mobility, UE Funct Exercise/Act Treatment Duration: Jul 20, 2018 Frequency: 5 times per week Estimated Hrs Per Day: .25 hour per day Rehab Potential: Fair Time/GCodes Start Time: 09:05 Stop Time: 09:25 Total Time Billed (hr/min): 20 Billed Treatment Time 1 visit-ADL 1 (20 min) PILLO BABCOCK Jul 19, 2018 09:19
[2018-07-19] MEDS: LORazepam 0.5 MG (ATIVAN) TABLET PO SCH (09:39)
[2018-07-19] MEDS: PANTOPRAZOLE 40 MG (PROTONIX) TAB PO SCH ×2 (09:39→20:44)
[2018-07-19] MEDS: SUCRALFATE 1 GM (CARAFATE) TAB PO SCH ×3 (09:40→20:44)
[2018-07-19] MEDS: risperiDONE 1 MG (RisperDAL) TAB PO SCH ×2 (09:40→20:44)
[2018-07-19] MEDS: guaiFENesin (MUCINEX) 600 MG TAB PO SCH ×2 (09:40→20:44)
[2018-07-19] MEDS: meTOprolol SUCCINATE 100 MG (TOPROL XL) TAB PO SCH ×2 (09:40→20:45)
[2018-07-19] MEDS: CYCLOBENZAPRINE 10 MG (FLEXERIL) TAB PO SCH ×3 (09:40→20:44)
[2018-07-19] MEDS: DONEPEZIL 10 MG (ARICEPT) TAB PO SCH (09:40)
[2018-07-19] MEDS: ENOXAPARIN 40 MG/0.4 ML (LOVENOX) SYR SC SCH (09:40)
[2018-07-19] MEDS: amLODIPine 10 MG (NORVASC) TAB PO SCH (09:40)
[2018-07-19] MEDS: FAMOTIDINE 20 MG (PEPCID) TABLET PO SCH (09:40)
[2018-07-19] MEDS: MENTHOL/ZINC OXIDE (CALMOSEPTINE) 113 GM TUBE TOP SCH ×2 (09:41→20:46)
[2018-07-19] MEDS: lisINopril 20 MG (PRINIVIL) TABLET PO SCH (09:48)
[2018-07-19] MEDS: LORATADINE (CLARITIN) 10 MG TAB PO SCH (09:48)
[2018-07-19] MEDS: ACETAMINOPHEN 325 MG TABLET PO PRN (09:56)
--- NOTE | 2018-07-19 10:53 | Physical Therapy Daily Note ---
PT Daily Note-Current Subjective Pt had just completed OT and agreed to PT. Pt reports she will be returning home and will not go to a halfway or long term. Pain Numeric Pain Scale: 0-No Pain Location: No Pain Reported Mental Status Patient Orientation: Person Attachments: Oxygen (2L) Transfers Therapy Code Descriptions/Definitions Functional [place] Measure: 0=Not Assessed/NA 4=Minimal Assistance 1=Total Assistance 5=Supervision or Setup 2=Maximal Assistance 6=Modified [place] 3=Moderate Assistance 7=Complete [place] Therapy Quality Codes: 6 Independent with activity with or without an assistive device 5 Patient requires set up or clean up by helper. Patient completes activity by themselves 4 Supervision or touching assist (CGA). [place] provide cues , steadying assist 3 The helper provides less than half the effort to complete the activity 2 The helper provides more than half the effort to complete the activity 1 Dependent. The helper does all the effort to complete an activity 7 Patient refused to complete or attempt activity 9 The patient did not perform the activity before the current illness or injury 88 Not attempted due to Medical conditions or safety concerns Transfers (B, C, W/C) (FIM): 5 Scootin Sit to/from Stand: 5 Weight Bearing Right Lower Extremity: Right Full Weight Bearing Left Lower Extremity: Left Full Weight Bearing Gait Training Gait (FIM): 1 Distance (FIM): 1=up to 49 ft Distance: 30' Gait Level of Assist: 4 Gait Persons Needed: 1 Gait Assistive Device: FWW Pt has small YEYO with little foot clearance. Assessment Current Status: Fair Progress Pt was able to amb into bathroom (15') with FWW and SBA. Pt transfers sit<> stand with CGA for safety. Pt required VC during transfer because pt was not close to chair when going to sit down. Pt goal for amb was to make it 50' and pt was only able to able 40' due to pt refusal with FWW and SBA. Pt is now in recliner with all needs met. PT does not believe pt is safe at home alone but pt states she will only go home. PT Universal Winding Machine Operator Goals Universal Winding Machine Operator Goals PT Universal Winding Machine Operator Goals Time Frame: Jul 27, 2018 Transfers (B,C,W/C) (FIM): 6 Gait (FIM): 6 Gait distance (FIM): 3=150 ft Gait Assistive Device: FWW PT Plan Problem List Problem List: Activity Tolerance, Functional Strength, Safety, Balance, Gait, Transfer, Bed Mobility, ROM Treatment/Plan Treatment Plan: Continue Plan of Care Treatment Plan: Bed Mobility, Education, Functional Activity Fede, Functional Strength, Gait, Safety, Therapeutic Exercise, Transfers Treatment Duration: Jul 27, 2018 Frequency: 6 times per week Estimated Hrs Per Day: .5 hour per day Patient and/or Family Agrees t: Yes Safety Risks/Education Patient Education: Gait Training, Transfer Techniques, Correct Positioning, Safety Issues Teaching Recipient: Patient Teaching Methods: Demonstration, Discussion Response to Teaching: Reinforcement Needed Time/GCodes Time In: 926 Time Out: 938 Total Billed Treatment Time: 12 Total Billed Treatment 1 visit FA 12 min DELMI TORRES PT Jul 19, 2018 10:53
--- NOTE | 2018-07-19 12:39 | NUR ---
CM/SS. Camp Recreation Specialist discussed patient refusal for community halfway placement with therapists. Additionally, her motivation and performance level was discussed. PT updated automatic typewriter inspector today that an independent focus will be encouraged, that patient will need to ambulate to restroom and back rather than BSC. Patient will need to demonstrate safety and ability for return home. PT has updated nursing staff re same for consistency. Followup Sunday.
--- NOTE | 2018-07-19 13:33 | Progress Note (SOAP) ---
Subjective Time Seen by a Provider: 13:31 Subjective/Events-last exam Left ankle hurting. Patient had bronchoscopy yesterday. White blood cell count elevated to 18,000. Patient states she is breathing okay. To follow the white blood cell count Objective Exam Vital Signs Date Time Temp Pulse Resp B/P (MAP) Pulse Ox O2 Delivery O2 Flow Rate FiO2 07/19/18 10:52 96 Nasal Cannula 2.00 07/19/18 08:10 Nasal Cannula 2.00 07/19/18 08:00 97.3 86 20 184/81 (115) 98 Nasal Cannula 2.00 07/19/18 07:16 98 Nasal Cannula 2.00 07/19/18 02:40 92 Nasal Cannula 2.00 07/19/18 00:00 97.9 82 20 122/60 (80) 94 Nasal Cannula 2.00 07/18/18 22:51 94 Nasal Cannula 2.00 07/18/18 19:45 Nasal Cannula 2.00 07/18/18 19:08 96 Nasal Cannula 2.00 07/18/18 16:05 99.6 90 20 138/70 (92) 100 Nasal Cannula 3.00 07/18/18 15:07 94 Nasal Cannula 2.00 I & O 07/19/18 07:00 Intake Total 2740 ml Output Total 1375 ml Balance 1365 ml Capillary Refill : Less Than 3 SecondsLess Than 3 Seconds General Appearance: No Apparent Distress, WD/WN HEENT: Normal ENT Inspection Neck: Full Range of Motion, Normal Inspection Respiratory: No Accessory Muscle Use, No Respiratory Distress, Decreased Breath Sounds Cardiovascular: Regular Rate, Rhythm Gastrointestinal: non tender, soft Results Lab Laboratory Tests 07/19/18 04:19 Laboratory Tests 07/19/18 04:19: White Blood Count 18.7H, Red Blood Count 4.21L, Hemoglobin 11.8, Hematocrit 39, Mean Corpuscular Volume 92, Mean Corpuscular Hemoglobin 28, Mean Corpuscular Hemoglobin Concent 31L, Red Cell Distribution Width 16.6H, Platelet Count 463H, Mean Platelet Volume 10.5H, Neutrophils (%) (Auto) 61, Lymphocytes (%) (Auto) 30 , Monocytes (%) (Auto) 7, Eosinophils (%) (Auto) 1, Basophils (%) (Auto) 0, Neutrophils # (Auto) 11.4H, Lymphocytes # (Auto) 5.6H, Monocytes # (Auto) 1.4H, Eosinophils # (Auto) 0.3, Basophils # (Auto) 0.1, Neutrophils % (Manual) 48, Lymphocytes % (Manual) 35, Monocytes % (Manual) 7, Eosinophils % (Manual) 2, Atypical Lymphocytes 7, Blood Morphology Comment NORMAL, Sodium Level 143, Potassium Level 4.1, Chloride Level 104, Carbon Dioxide Level 27, Anion Gap 12, Blood Urea Nitrogen 22H, Creatinine 0.79, Estimat Glomerular Filtration Rate > 60, BUN/Creatinine Ratio 28, Glucose Level 95, Calcium Level 9.4 Microbiology 07/12/18 Blood Culture - Final, Complete No growth 07/18/18 Gram Stain - Final, Resulted 07/18/18 Bronchial Culture, Resulted Pending 07/18/18 Fungal Culture 1, Resulted Pending 07/12/18 Urine Culture - Final, Complete NO GROWTH Assessment/Plan Assessment/Plan Assess & Plan/Chief Complaint Fall with no fractures. Bilateral pneumonia. COPD. Bipolar. Dementia. Hypertension. History of tobaccoism. . 07/09/18. Fall with no fractures. Bilateral pneumonia. COPD. Bipolar. Dementia. Has some dementia. Hypertension. Confusion.. . 07/10/18. Fall with no fracture. Bilateral pneumonia. COPD. Bipolar. Dementia. Confusion. Agitation. Hypertension better. Patient not confused this morning and resting comfortably. Consult social director. . 07/11/18 for with no fractures. Bilateral pneumonia improving. COPD. Bipolar. Confusion getting less according to patient. Agitation. Dementia. Consult mental health. Hypertension better. . 07/12/18. 4 with no fractures. Pneumonia. COPD. Bipolar. Dementia. Pain in the left knee. Leukocytosis. . 07/15/18. Fall. Pneumonia. COPD. Bipolar. Dementia. Left knee pain. Leukocytosis. Hypertension. . 07/16/18. Fall with no fracture. Pneumonia. COPD. Bipolar. Dementia. Hypertension. . 07/17/18 for with no fractures. Bilateral pneumonia. COPD. Bipolar. Dementia. Patient have bronchoscopy tomorrow.. . Bilateral pneumonia. COPD with acute exacerbation. Bipolar. Right knee pain better. Dementia.. . 07/19/18. Bilateral pneumonia. COPD with acute exacerbation. Bipolar. Dementia. Left ankle hurts today without trauma Clinical Quality Measures DVT/VTE Risk/Contraindication: Risk Factor Score Per Nursin RFS Level Per Nursing on Admit: 4+=Very High JOCELYNE MEI DO Jul 19, 2018 13:33
[2018-07-19 15:41] VITALS: BP 134/66
[2018-07-19 20:40] VITALS: BP 134/71
[2018-07-19] MEDS: POLYETHYLENE GLYCOL 17 GM (MIRALAX) PACK PO SCH (20:44)
[2018-07-19] MEDS: LORazepam 1 MG (ATIVAN) TAB PO SCH (20:44)
[2018-07-19] MEDS: OLANZapine 5 MG (ZyPREXA) TAB PO SCH (20:44)
--- NOTE | 2018-07-19 22:41 | Diagnostic Imaging Report ---
EXAMINATION: Chest (PA and lateral). CLINICAL INDICATION: 58-year-old female, shortness of breath. Pneumonia. COMPARISON: July 18, 2018. FINDINGS: Heart size and mediastinal contours are unchanged. There is significant technical limitations of the exam. There is no obvious pneumothorax. There are is a redemonstrated opacity overlying the right lung apex which is grossly unchanged. There is no identified interval focal airspace consolidation. There is a chronic appearing right proximal humerus deformity. There is no identified layering pleural effusion. Previously noted pulmonary nodules on prior CT chest are not well seen or evaluated. IMPRESSION: 1. Significant technical limitations of the exam. 2. No radiographically apparent interval acute cardiopulmonary abnormality. 3. Previously noted pulmonary nodules on prior CT chest are not well seen or evaluated radiographically. Dictated by: Dictated on workstation # [id number]
[2018-07-19 23:13] VITALS: BP 127/62
[2018-07-20] MEDS: HYDROcodone/APAP 10 MG/325 MG (LORTAB) TAB PO PRN ×3 (00:27→16:54)
[2018-07-20] MEDS: RT-ALBUTEROL/IPRATROPIUM 3 ML (DUONEB) VIAL INH SCH ×6 (01:35→21:22)
[2018-07-20] MEDS: MEROPENEM 500 MG/SWFI 10 ML IV PUSH IV SCH ×8 (05:17→23:02)
[2018-07-20 06:19] LABS: BASOPHILS # (AUTO) 0.1 10^3/uL (0.0-0.1); BASOPHILS % (AUTO) 1 % (0-10); EOSINOPHILS # (AUTO) 0.7 10^3/uL (0.0-0.3); EOSINOPHILS % (AUTO) 5 % (0-10); HEMATOCRIT 37 % (35-52); HEMOGLOBIN 11.4 G/DL (11.5-16.0); LYMPHOCYTES # (AUTO) 3.3 X 10^3 (1.0-4.0); LYMPHOCYTES % (AUTO) 23 % (12-44); MEAN CORPUSCULAR HEMOGLOBIN 29 PG (25-34); MEAN CORPUSCULAR HGB CONC 31 G/DL (32-36); MEAN CORPUSCULAR VOLUME 92 FL (80-99); MEAN PLATELET VOLUME 10.1 FL (7.4-10.4); MONOCYTES # (AUTO) 1.4 X 10^3 (0.0-1.0); MONOCYTES % (AUTO) 9 % (0-12); NEUTROPHILS # (AUTO) 9.1 X 10^3 (1.8-7.8); NEUTROPHILS % (AUTO) 63 % (42-75); PLATELET COUNT 434 10^3/uL (130-400); RED CELL DISTRIBUTION WIDTH 16.7 % (10.0-14.5); WHITE BLOOD COUNT 14.6 10^3/uL (4.3-11.0)
[2018-07-20] MEDS: LACTOBACILLUS ACIDOPHILUS (PROBIOTIC) CAPSULE PO SCH ×3 (06:20→16:54)
[2018-07-20 06:35] LABS: BUN/CREATININE RATIO 25; CALCIUM 9.2 MG/DL (8.5-10.1); CARBON DIOXIDE 28 MMOL/L (21-32); CHLORIDE 102 MMOL/L (98-107); CREATININE SERUM 0.73 MG/DL (0.60-1.30); GFR ESTIMATED > 60; GLUCOSE 92 MG/DL (70-105); SODIUM 142 MMOL/L (135-145)
[2018-07-20 08:00] VITALS: BP 136/80
[2018-07-20] MEDS: ENOXAPARIN 40 MG/0.4 ML (LOVENOX) SYR SC SCH (08:39)
[2018-07-20] MEDS: AZITHROMYCIN 250 MG TAB (ZITHROMAX) PO SCH (08:39)
[2018-07-20] MEDS: SUCRALFATE 1 GM (CARAFATE) TAB PO SCH ×3 (08:39→20:43)
[2018-07-20] MEDS: FAMOTIDINE 20 MG (PEPCID) TABLET PO SCH (08:40)
[2018-07-20] MEDS: lisINopril 20 MG (PRINIVIL) TABLET PO SCH (08:40)
[2018-07-20] MEDS: PANTOPRAZOLE 40 MG (PROTONIX) TAB PO SCH ×2 (08:40→20:42)
[2018-07-20] MEDS: LORazepam 0.5 MG (ATIVAN) TABLET PO SCH (08:40)
[2018-07-20] MEDS: LORATADINE (CLARITIN) 10 MG TAB PO SCH (08:40)
[2018-07-20] MEDS: guaiFENesin (MUCINEX) 600 MG TAB PO SCH ×2 (08:40→20:42)
[2018-07-20] MEDS: CYCLOBENZAPRINE 10 MG (FLEXERIL) TAB PO SCH ×3 (08:40→20:43)
[2018-07-20] MEDS: DONEPEZIL 10 MG (ARICEPT) TAB PO SCH (08:40)
[2018-07-20] MEDS: amLODIPine 10 MG (NORVASC) TAB PO SCH (08:40)
[2018-07-20] MEDS: risperiDONE 1 MG (RisperDAL) TAB PO SCH ×2 (08:40→20:43)
[2018-07-20] MEDS: meTOprolol SUCCINATE 100 MG (TOPROL XL) TAB PO SCH ×2 (08:40→20:43)
[2018-07-20] MEDS: MENTHOL/ZINC OXIDE (CALMOSEPTINE) 113 GM TUBE TOP SCH ×2 (08:41→20:44)
--- NOTE | 2018-07-20 09:24 | Cardiology Progress Note ---
Subjective Date Seen by Provider: Jul 20, 2018 Time Seen by Provider: 09:23 Subjective/Events-last exam patient is sitting in a chair, feeling better, no new complaint. Review of Systems General: No Chills, No Night Sweats; Fatigue; No Malaise, No Appetite, No Other HEENT: No Head Aches, No Visual Changes, No Eye Pain, No Ear Pain, No Dysphasia , No Sinus Congestion, No Post Nasal Drip, No Sore Throat, No Other Pulmonary: Dyspnea; No Cough, No Pleuritic Chest Pain, No Other Cardiovascular: No: Chest Pain, Palpitations, Orthopnea, Paroxysmal Noc. Dyspnea, Edema, Lt Headedness, Other Objective-Cardiology Exam Last Set of Vital Signs Vital Signs 07/17/18 07/20/18 07/20/18 11:13 07:20 08:00 Temp 98.3 Pulse 76 Resp 20 B/P (MAP) 136/80 (98) Pulse Ox 96 O2 Delivery Nasal Cannula O2 Flow Rate 2.00 FiO2 28 Capillary Refill : Less Than 3 SecondsLess Than 3 Seconds I&O Intake and Output 07/20/18 00:00 Intake Total 3000 ml Output Total 1100 ml Balance 1900 ml Intake Oral 1730 ml IV Total 1270 ml Output Urine Total 1100 ml # Voids 2 # Bowel Movements 1 General: Alert, Oriented X3, Cooperative HEENT: Atraumatic, PERRLA Neck: Supple Lungs: Clear to Auscultation, Normal Air Movement Heart: Regular Rate, Normal S1, Normal S2 Abdomen: Normal Bowel Sounds, Soft Extremities: No Clubbing, No Cyanosis Skin: No Rashes, No Breakdown Neuro: Normal Gait, Normal Speech, Sensation Intact Psych/Mental Status: Mood NL Results Lab Laboratory Tests 07/20/18 06:01 A/P-Cardiology Admission Diagnosis Hypertension Pneumonia Bipolar disorder Assessment/Plan Bilateral pneumonia, managed by primary team, possible bronchoscopy Severe hypertension, better control at this time. Continue to monitor blood pressure Psychiatric disorder, managed by primary care team Clinical Quality Measures DVT/VTE Risk/Contraindication: Risk Factor Score Per Nursin RFS Level Per Nursing on Admit: 4+=Very High LORIE MATOS MD Jul 20, 2018 09:24
--- NOTE | 2018-07-20 10:00 | NUR ---
LORTAB 10 PO FOR C/O PAIN LEFT KNEE.
--- NOTE | 2018-07-20 10:21 | Diagnostic Imaging Report ---
INDICATION: Pneumonia. TIME OF EXAM: 9:36 AM Correlation is made with prior chest from one day earlier. FINDINGS: Heart size is stable. There is pleural plaquing overlying the right chest. No infiltrates are identified. There is no evidence of congestive failure. No effusion or pneumothorax is seen. IMPRESSION: Stable chest since exam from one day earlier. No acute feature is seen. Dictated by: Dictated on workstation # [id number]
--- NOTE | 2018-07-20 12:03 | Physical Therapy Daily Note ---
PT Daily Note-Current Subjective Pt states she is in so much pain, but agreeable to ex and then short distance amb to bathroom Pain Numeric Pain Scale: 10-Worst Possible Pain Location: Left Location Body Site: Knee Comment: left knee to foot Appearance at beginning of session, pt awake and alert sitting up in recliner At end of session, pt sitting up in recliner, call light, phone and bedside table within reach Transfers Therapy Code Descriptions/Definitions Functional [place] Measure: 0=Not Assessed/NA 4=Minimal Assistance 1=Total Assistance 5=Supervision or Setup 2=Maximal Assistance 6=Modified [place] 3=Moderate Assistance 7=Complete [place] Therapy Quality Codes: 6 Independent with activity with or without an assistive device 5 Patient requires set up or clean up by helper. Patient completes activity by themselves 4 Supervision or touching assist (CGA). [place] provide cues , steadying assist 3 The helper provides less than half the effort to complete the activity 2 The helper provides more than half the effort to complete the activity 1 Dependent. The helper does all the effort to complete an activity 7 Patient refused to complete or attempt activity 9 The patient did not perform the activity before the current illness or injury 88 Not attempted due to Medical conditions or safety concerns Transfers (B, C, W/C) (FIM): 4 Sit to/from Stand: 4 crepitus heard in joints during all transitions, pt with report of increased pain with all transitions, slow performance Weight Bearing Right Lower Extremity: Right Full Weight Bearing Left Lower Extremity: Left Full Weight Bearing Gait Training Gait (FIM): 1 Distance (FIM): 1=up to 49 ft Distance: 15' x2 Gait Level of Assist: 5 Gait Persons Needed: 1 Gait Assistive Device: FWW shuffling slow gait, knees flexed, antalgic, step to gait pattern Exercises Supine Reps: 10 ((B) toe curls, Ankle pumps, heelslides, hip abd/add, SLR) Treatments safety, gait and transfer training, LE exercise Assessment increased pain with all activities performed, crepitus heard in joints during weight bearing activities PT Jail Goals Jail Goals PT Jail Goals Time Frame: Jul 27, 2018 Transfers (B,C,W/C) (FIM): 6 Gait (FIM): 6 Gait distance (FIM): 3=150 ft Gait Assistive Device: FWW PT Plan Problem List Problem List: Activity Tolerance, Functional Strength, Safety, Balance, Gait, Transfer Treatment/Plan Treatment Plan: Continue Plan of Care Treatment Plan: Bed Mobility, Education, Functional Activity Fede, Functional Strength, Gait, Safety, Therapeutic Exercise, Transfers Treatment Duration: Jul 27, 2018 Frequency: 6 times per week Estimated Hrs Per Day: .5 hour per day Patient and/or Family Agrees t: Yes Safety Risks/Education Patient Education: Gait Training, Transfer Techniques, Safety Issues Teaching Recipient: Patient Teaching Methods: Demonstration, Discussion Response to Teaching: Verbalize Understanding, Return Demonstration Time/GCodes Time In: 1000 Time Out: 1024 Total Billed Treatment Time: 24 Total Billed Treatment 1 visit EX x10' GT x14' BALTAZAR VALLES PTA Jul 20, 2018 12:03
--- NOTE | 2018-07-20 12:31 | Progress Note-Hospitalist ---
Subjective HPI/CC On Admission Date Seen by Provider: Jul 20, 2018 Time Seen by Provider: 11:45 CC: Respiratory insufficiency with bilateral pneumonia HPI: This is a 58-year-old white female known to me from just recent discharge from inpatient rehab directly to the correction after 1 month of inpatient rehab in [address] [facility] for acute on chronic respiratory failure requiring trach and PEG tube both discontinued while inpatient rehab stay who presented to the ER only 2 days after she moved into her own apartment and [place] and began feeling ill and had a fall with increased oxygen requirements and was found to have bilateral pneumonia with respiratory insufficiency. She has been placed in the ICU and Dr. Berman has been consulted. She is at high risk for reintubation. I have restarted most of her home medications including her emotional problem regimen and she reports she is not in any pain but feeling better. Subjective/Events-last exam Patient doing much better No longer on Vapotherm Had a bronchoscopy and I reviewed those results Left leg still hurts but workup has thus far been negative Overall appears to be much better Review of Systems General: Fatigue Pulmonary: Dyspnea Objective Exam Vital Signs Vital Signs Date Time Temp Pulse Resp B/P (MAP) Pulse Ox O2 Delivery O2 Flow Rate FiO2 07/20/18 11:07 95 Nasal Cannula 2.00 07/20/18 08:00 98.3 76 20 136/80 (98) 07/17/18 11:13 28 Capillary Refill : Less Than 3 SecondsLess Than 3 Seconds General Appearance: No Apparent Distress, WD/WN, Chronically ill, Obese HEENT: Normal ENT Inspection Neck: Full Range of Motion, Normal Inspection Respiratory: Lungs Clear, Normal Breath Sounds, No Accessory Muscle Use, No Respiratory Distress Cardiovascular: Regular Rate, Rhythm Gastrointestinal: Normal Bowel Sounds, No Organomegaly, No Pulsatile Mass, Non Tender, Soft Back: Normal Inspection, No CVA Tenderness, No Vertebral Tenderness Extremity: Normal Capillary Refill, Normal Inspection, Non Tender, Pedal Edema Neurologic/Psychiatric: Alert, Oriented x3, No Motor/Sensory Deficits, Depressed Affect Skin: Normal Color, Warm/Dry Lymphatic: No Adenopathy Results/Procedures Lab Laboratory Tests 07/20/18 06:01 Patient resulted labs reviewed. Assessment/Plan Assessment and Plan Assess & Plan/Chief Complaint Assessment: Bilateral pneumonia s/p bronchoscopy Fall at home prompting admit Respiratory insufficiency acute on chronic Severe debility following critical illness and vent dependence just DC from IRF after 1 month of care to correction for 3 weeks then her own apartment for only 2 days s/p Trach DC May s/p PEG tube DC May Nausea- chronic Mental illness precluding fast recovery Current smoker unsure of her status now COPD Status post pneumonia 05/28 Leukocytosis-improved Left knee pain since fall negative w/u Plan: Monitor closely Meropenem Monitor lungs Disposition home will not be an option Critical Care Critically Ill Patient Diagnosis/Problems Diagnosis/Problems (1) Pneumonia Status: Acute Qualifiers: Pneumonia type: due to unspecified organism Laterality: bilateral Lung location: lower lobe of lung Qualified Codes: J18.1 - Lobar pneumonia, unspecified organism (2) Fall Status: Acute Qualifiers: Encounter type: initial encounter Qualified Codes: W19.XXXA - Unspecified fall, initial encounter (3) Acute on chronic respiratory failure with hypoxia and hypercapnia Status: Acute (4) Oxygen dependent Status: Chronic (5) Nausea Status: Chronic (6) Bipolar disorder Status: Chronic Qualifiers: Active/Remission status: currently active Current bipolar episode type: depressed Current episode severity: moderate Qualified Codes: F31.32 - Bipolar disorder, current episode depressed, moderate (7) COPD (chronic obstructive pulmonary disease) Status: Chronic Qualifiers: COPD type: unspecified COPD Qualified Codes: J44.9 - Chronic obstructive pulmonary disease, unspecified (8) Chronic mental illness Status: Chronic (9) Hypertension Status: Chronic Qualifiers: Hypertension type: essential hypertension Qualified Codes: I10 - Essential (primary) hypertension (10) Myopathy Status: Chronic Clinical Quality Measures DVT/VTE Risk/Contraindication: Risk Factor Score Per Nursin RFS Level Per Nursing on Admit: 4+=Very High SAMANTHA COLLIER DO Jul 20, 2018 12:31
[2018-07-20] MEDS: RT-ADVAIR HFA 115/21 MCG PER PUFF IH SCH ×2 (15:18→19:25)
[2018-07-20 15:46] VITALS: BP 135/75
--- NOTE | 2018-07-20 17:08 | NUR ---
LORTAB 10 PO FOR LT KNEE PAIN.
[2018-07-20] MEDS: LORazepam 1 MG (ATIVAN) TAB PO SCH (20:43)
[2018-07-20] MEDS: OLANZapine 5 MG (ZyPREXA) TAB PO SCH (20:43)
[2018-07-20] MEDS: POLYETHYLENE GLYCOL 17 GM (MIRALAX) PACK PO SCH (20:49)
[2018-07-20 23:06] VITALS: BP 166/76
[2018-07-21] MEDS: HYDROcodone/APAP 10 MG/325 MG (LORTAB) TAB PO PRN ×3 (01:46→21:00)
[2018-07-21] MEDS: RT-ALBUTEROL/IPRATROPIUM 3 ML (DUONEB) VIAL INH SCH ×6 (02:04→21:00)
[2018-07-21] MEDS: MEROPENEM 500 MG/SWFI 10 ML IV PUSH IV SCH ×8 (05:26→23:46)
[2018-07-21] MEDS: LACTOBACILLUS ACIDOPHILUS (PROBIOTIC) CAPSULE PO SCH ×3 (06:16→17:39)
[2018-07-21 08:00] VITALS: BP 138/62
[2018-07-21] MEDS: meTOprolol SUCCINATE 100 MG (TOPROL XL) TAB PO SCH ×2 (09:19→21:00)
[2018-07-21] MEDS: DONEPEZIL 10 MG (ARICEPT) TAB PO SCH (09:19)
[2018-07-21] MEDS: guaiFENesin (MUCINEX) 600 MG TAB PO SCH ×2 (09:19→20:59)
[2018-07-21] MEDS: LORazepam 0.5 MG (ATIVAN) TABLET PO SCH (09:19)
[2018-07-21] MEDS: FAMOTIDINE 20 MG (PEPCID) TABLET PO SCH (09:19)
[2018-07-21] MEDS: ENOXAPARIN 40 MG/0.4 ML (LOVENOX) SYR SC SCH (09:19)
[2018-07-21] MEDS: AZITHROMYCIN 250 MG TAB (ZITHROMAX) PO SCH (09:19)
[2018-07-21] MEDS: lisINopril 20 MG (PRINIVIL) TABLET PO SCH (09:19)
[2018-07-21] MEDS: risperiDONE 1 MG (RisperDAL) TAB PO SCH ×2 (09:19→21:00)
[2018-07-21] MEDS: amLODIPine 10 MG (NORVASC) TAB PO SCH (09:19)
[2018-07-21] MEDS: PANTOPRAZOLE 40 MG (PROTONIX) TAB PO SCH ×2 (09:20→20:59)
[2018-07-21] MEDS: CYCLOBENZAPRINE 10 MG (FLEXERIL) TAB PO SCH ×3 (09:20→21:00)
[2018-07-21] MEDS: SUCRALFATE 1 GM (CARAFATE) TAB PO SCH ×3 (09:20→21:00)
[2018-07-21] MEDS: MENTHOL/ZINC OXIDE (CALMOSEPTINE) 113 GM TUBE TOP SCH ×2 (09:22→21:01)
[2018-07-21] MEDS: LORATADINE (CLARITIN) 10 MG TAB PO SCH (09:23)
--- NOTE | 2018-07-21 11:43 | Pulmonary Progress Note ---
Sepsis Event Evaluation Height, Weight, BMI Height: 5'7.00" Weight: 229lbs. 0.0oz. 103.677656ku; 37.0 BMI Method:Stated Exam Exam Vital Signs Date Time Temp Pulse Resp B/P (MAP) Pulse Ox O2 Delivery O2 Flow Rate FiO2 07/21/18 09:17 92 Nasal Cannula 1.00 07/21/18 08:00 Nasal Cannula 1.00 07/21/18 08:00 98.2 74 20 138/62 (87) 92 Nasal Cannula 2.00 07/21/18 02:04 83 Nasal Cannula 0.50 07/20/18 23:06 97.0 86 20 166/76 (106) 93 Nasal Cannula 2.00 07/20/18 21:22 93 Nasal Cannula 1.00 07/20/18 20:40 Nasal Cannula 1.00 07/20/18 19:48 95 Nasal Cannula 1.00 07/20/18 19:26 94 Nasal Cannula 2.00 07/20/18 15:46 97.8 91 22 135/75 (95) 99 Nasal Cannula 2.00 07/20/18 15:20 Nasal Cannula 2.00 I & O 07/21/18 07:00 Intake Total 2260 ml Output Total 1850 ml Balance 410 ml Height & Weight Height: 5'7.00" Weight: 229lbs. 0.0oz. 103.129223xw; 37.0 BMI Method:Stated General Appearance: No Apparent Distress, WD/WN, Chronically ill, Obese HEENT: Normal ENT Inspection Neck: Full Range of Motion, Normal Inspection Respiratory: Lungs Clear, Normal Breath Sounds, No Accessory Muscle Use, No Respiratory Distress Cardiovascular: Regular Rate, Rhythm Capillary Refill: Less Than 3 Seconds Gastrointestinal: non tender, soft Extremity: Normal Capillary Refill, Normal Inspection, Non Tender, Pedal Edema Neurologic/Psychiatric: Alert, Oriented x3, No Motor/Sensory Deficits, Depressed Affect Skin: Normal Color, Warm/Dry Lymphatic: No Adenopathy Results Lab Laboratory Tests 07/20/18 06:01 Assessment/Plan Assessment/Plan S/p fall Acute on chronic respiratory failure -Hx of tracheostomy and ARDS -Oxygen Bilateral pneumonia - Persistent leukocytosis -Merrem -repeat lawson cultures -CXR showed bibasilar infiltrates R>L and Right slightly worse than prior study - S/p Bronchoscopy Severe oxygen dependent COPD with AE -SVNS, advair -Oxygen HTN with tachycardia -Toprol, lisinopril per cardiology dementia vs ICU psychosis -Risperdal 0.5mg BID and PRN Haldol Depression CAD Obesity HX of bipolar/anxiety MERCEDES GARZA DO Jul 21, 2018 11:43
--- NOTE | 2018-07-21 13:00 | Progress Note-Hospitalist ---
Progress Note Progress Notes/Assess & Plan Date Seen 07/21/18 Time Seen by Provider: 12:55 Assessment & Plan The patient is a 58-year-old white female with end-stage lung disease. She was admitted on 07/05 and has improved quite slowly. She is sitting in the bedside chair when I entered the room. Her color was noted to be good and she was able to speak clearly. She was on O2 by nasal cannula. She stated that physical therapy had begun to work with her in terms of exercises while in the bed or chair. She has been able to walk to the bathroom with some assistance. This is a distance of approximately 10 feet. She reports feeling breathless when she returns. Physical exam: Color is pink. She is not tachypneic at rest. Lungs are clear to auscultation but distant. CV is regular. Impression: End-stage lung disease. 2.severe loss of physical abilities and inability to perform activities of daily living Plan: Continue PT and present pulmonary program. May consider inpatient rehabilitation. ESTRELLITA VILLATORO MD Jul 21, 2018 12:59
[2018-07-21] MEDS: RT-ADVAIR HFA 115/21 MCG PER PUFF IH SCH ×2 (14:42→21:00)
[2018-07-21 15:52] VITALS: BP 144/61
[2018-07-21 19:19] VITALS: BP 143/70
[2018-07-21] MEDS: LORazepam 1 MG (ATIVAN) TAB PO SCH (20:59)
[2018-07-21] MEDS: OLANZapine 5 MG (ZyPREXA) TAB PO SCH (20:59)
[2018-07-21] MEDS: POLYETHYLENE GLYCOL 17 GM (MIRALAX) PACK PO SCH (20:59)
[2018-07-22 00:38] VITALS: BP 141/65
[2018-07-22] MEDS: RT-ALBUTEROL/IPRATROPIUM 3 ML (DUONEB) VIAL INH SCH ×4 (02:55→21:10)
[2018-07-22] MEDS: MEROPENEM 500 MG/SWFI 10 ML IV PUSH IV SCH ×2 (05:43)
[2018-07-22 08:00] VITALS: BP 144/76
[2018-07-22] MEDS: meTOprolol SUCCINATE 100 MG (TOPROL XL) TAB PO SCH ×2 (08:16→21:46)
[2018-07-22] MEDS: LORazepam 0.5 MG (ATIVAN) TABLET PO SCH (08:16)
[2018-07-22] MEDS: amLODIPine 10 MG (NORVASC) TAB PO SCH (08:16)
[2018-07-22] MEDS: guaiFENesin (MUCINEX) 600 MG TAB PO SCH ×2 (08:16→21:46)
[2018-07-22] MEDS: FAMOTIDINE 20 MG (PEPCID) TABLET PO SCH (08:17)
[2018-07-22] MEDS: SUCRALFATE 1 GM (CARAFATE) TAB PO SCH ×3 (08:17→21:46)
[2018-07-22] MEDS: DONEPEZIL 10 MG (ARICEPT) TAB PO SCH (08:17)
[2018-07-22] MEDS: HYDROcodone/APAP 10 MG/325 MG (LORTAB) TAB PO PRN (08:17)
[2018-07-22] MEDS: CYCLOBENZAPRINE 10 MG (FLEXERIL) TAB PO SCH ×3 (08:17→21:46)
[2018-07-22] MEDS: risperiDONE 1 MG (RisperDAL) TAB PO SCH ×2 (08:17→21:46)
[2018-07-22] MEDS: LORATADINE (CLARITIN) 10 MG TAB PO SCH (08:17)
[2018-07-22] MEDS: AZITHROMYCIN 250 MG TAB (ZITHROMAX) PO SCH (08:17)
[2018-07-22] MEDS: PANTOPRAZOLE 40 MG (PROTONIX) TAB PO SCH ×2 (08:17→21:46)
[2018-07-22] MEDS: ENOXAPARIN 40 MG/0.4 ML (LOVENOX) SYR SC SCH (08:17)
[2018-07-22] MEDS: LACTOBACILLUS ACIDOPHILUS (PROBIOTIC) CAPSULE PO SCH ×3 (08:21→17:15)
[2018-07-22] MEDS: lisINopril 20 MG (PRINIVIL) TABLET PO SCH (08:21)
--- NOTE | 2018-07-22 08:27 | Progress Note (SOAP) ---
Subjective Time Seen by a Provider: 08:24 Subjective/Events-last exam Patient complains of left knee pain. Patient still short of breath on exertion. Patient needed oxygen this morning after going to the bathroom Objective Exam Vital Signs Date Time Temp Pulse Resp B/P (MAP) Pulse Ox O2 Delivery O2 Flow Rate FiO2 07/22/18 08:03 Nasal Cannula 1.00 07/22/18 00:38 97.8 90 18 141/65 (90) 93 Nasal Cannula 2.00 07/21/18 21:00 93 Nasal Cannula 1.00 07/21/18 20:15 Nasal Cannula 1.00 07/21/18 19:19 98.8 91 20 143/70 (94) 98 Nasal Cannula 2.00 07/21/18 15:52 97.9 79 22 144/61 (88) 98 Nasal Cannula 2.00 07/21/18 15:50 98.2 07/21/18 15:20 98.2 07/21/18 14:42 92 Nasal Cannula 0.50 07/21/18 09:17 92 Nasal Cannula 1.00 I & O 07/22/18 07:00 Intake Total 1630 ml Output Total 1450 ml Balance 180 ml Capillary Refill : Less Than 3 SecondsLess Than 3 Seconds General Appearance: No Apparent Distress, WD/WN HEENT: Normal ENT Inspection, Pharynx Normal Neck: Full Range of Motion, Normal Inspection Respiratory: No Accessory Muscle Use, No Respiratory Distress, Decreased Breath Sounds Cardiovascular: Regular Rate, Rhythm, No Murmur Gastrointestinal: non tender, soft Results Lab Microbiology 07/12/18 Blood Culture - Final, Complete No growth 07/18/18 Gram Stain - Final, Resulted 07/18/18 Bronchial Culture - Final, Resulted Staphylococcus epidermidis YEAST 07/18/18 Fungal Culture 1 - Preliminary, Resulted 07/12/18 Urine Culture - Final, Complete NO GROWTH Assessment/Plan Assessment/Plan Assess & Plan/Chief Complaint Fall with no fractures. Bilateral pneumonia. COPD. Bipolar. Dementia. Hypertension. History of tobaccoism. . 07/09/18. Fall with no fractures. Bilateral pneumonia. COPD. Bipolar. Dementia. Has some dementia. Hypertension. Confusion.. . 07/10/18. Fall with no fracture. Bilateral pneumonia. COPD. Bipolar. Dementia. Confusion. Agitation. Hypertension better. Patient not confused this morning and resting comfortably. Consult social sciences lecturer. . 07/11/18 for with no fractures. Bilateral pneumonia improving. COPD. Bipolar. Confusion getting less according to patient. Agitation. Dementia. Consult mental health. Hypertension better. . 07/12/18. 4 with no fractures. Pneumonia. COPD. Bipolar. Dementia. Pain in the left knee. Leukocytosis. . 07/15/18. Fall. Pneumonia. COPD. Bipolar. Dementia. Left knee pain. Leukocytosis. Hypertension. . 07/16/18. Fall with no fracture. Pneumonia. COPD. Bipolar. Dementia. Hypertension. . 07/17/18 for with no fractures. Bilateral pneumonia. COPD. Bipolar. Dementia. Patient have bronchoscopy tomorrow.. . Bilateral pneumonia. COPD with acute exacerbation. Bipolar. Right knee pain better. Dementia.. . 07/19/18. Bilateral pneumonia. COPD with acute exacerbation. Bipolar. Dementia. Left ankle hurts today without trauma. . 07/22/18. COPD with acute exacerbation. Bipolar. Dementia. Left knee hurts today. Patient still short of breath with exertion Clinical Quality Measures DVT/VTE Risk/Contraindication: Risk Factor Score Per Nursin RFS Level Per Nursing on Admit: 4+=Very High JOCELYNE MEI DO Jul 22, 2018 08:27
--- NOTE | 2018-07-22 09:31 | Physical Therapy Daily Note ---
PT Daily Note-Current Subjective Pt in recliner and agrees to PT. Reports her legs still hurt. Pain Numeric Pain Scale: 5-Moderate Pain Location Body Site: Knee Mental Status Patient Orientation: Person Attachments: Oxygen (2L) Transfers Therapy Code Descriptions/Definitions Functional [place] Measure: 0=Not Assessed/NA 4=Minimal Assistance 1=Total Assistance 5=Supervision or Setup 2=Maximal Assistance 6=Modified [place] 3=Moderate Assistance 7=Complete [place] Therapy Quality Codes: 6 Independent with activity with or without an assistive device 5 Patient requires set up or clean up by helper. Patient completes activity by themselves 4 Supervision or touching assist (CGA). [place] provide cues , steadying assist 3 The helper provides less than half the effort to complete the activity 2 The helper provides more than half the effort to complete the activity 1 Dependent. The helper does all the effort to complete an activity 7 Patient refused to complete or attempt activity 9 The patient did not perform the activity before the current illness or injury 88 Not attempted due to Medical conditions or safety concerns Scootin Sit to/from Stand: 4 Weight Bearing Right Lower Extremity: Right Full Weight Bearing Left Lower Extremity: Left Full Weight Bearing Gait Training Gait (FIM): 1 Distance (FIM): 1=up to 49 ft Distance: 2' Gait Level of Assist: 4 Gait Persons Needed: 1 Gait Assistive Device: FWW Exercises Seated Therapy Exercises: Ankle pumps, Long arc quads, Hip flexion Seated Reps: 15 Assessment Current Status: Poor Progress Pt requested to begin tx with walking. Pt is min A from sit<>stand to FWW requiring a rocking momentum for initiation. Pt was able to amb 2' with FWW and CGA before becoming emotional and refusing to walk any further or perform standing ex. Pt self limits and becomes emotional. Pt was impulsive due to emotional state and did not use correct transfer for return to sitting safely. PT instructed pt that even when she is hurting that she must use safety or she will possibly fall. Pt stated "I didn't fall though." Pt did perform seated ex. Pt is in recliner with all needs met. PT Chcf Goals Chcf Goals PT Construction Trades Teacher Goals Time Frame: Jul 27, 2018 Transfers (B,C,W/C) (FIM): 6 Gait (FIM): 6 Gait distance (FIM): 3=150 ft Gait Assistive Device: FWW PT Plan Problem List Problem List: Activity Tolerance, Functional Strength, Safety, Balance, Gait, Transfer, Bed Mobility, ROM Treatment/Plan Treatment Plan: Continue Plan of Care Treatment Plan: Bed Mobility, Education, Functional Activity Fede, Functional Strength, Gait, Safety, Therapeutic Exercise, Transfers Treatment Duration: Jul 27, 2018 Frequency: 6 times per week Estimated Hrs Per Day: .5 hour per day Patient and/or Family Agrees t: Yes Discharge Recommendations Therapy D/C Recommendations: Fpc Placement Time/GCodes Time In: 833 Time Out: 846 Total Billed Treatment Time: 13 Total Billed Treatment 1 visit FA 13 min DELMI TORRES PT Jul 22, 2018 09:31
[2018-07-22 09:43] LABS: HEMOGLOBIN 12.4 G/DL (11.5-16.0); MEAN PLATELET VOLUME 10.4 FL (7.4-10.4); RED CELL DISTRIBUTION WIDTH 16.8 % (10.0-14.5); WHITE BLOOD COUNT 12.8 10^3/uL (4.3-11.0)
--- NOTE | 2018-07-22 09:59 | Cardiology Progress Note ---
Cardiology SOAP Progress Note Subjective: No cardiac complaints. Objective: I&O/Vital Signs 07/22/18 07/22/18 07/22/18 00:38 08:00 08:03 Temp 97.8 98.0 Pulse 90 95 Resp 18 20 B/P (MAP) 141/65 (90) 144/76 (98) Pulse Ox 93 95 O2 Delivery Nasal Cannula Nasal Cannula Nasal Cannula O2 Flow Rate 2.00 2.00 1.00 07/22/18 00:00 Intake Total 1520 ml Output Total 1050 ml Balance 470 ml Weight (Pounds): 231 Weight (Ounces): 0.0 Weight (Calculated Kilograms): 104.796933 Constitutional: appears stated age; No AAO x 3, No apparent distress, No PERRL ; well-developed, well-nourished; No other Respiratory: No accessory muscle use, No respiratory distress, No chest tender , No chest expansion is symmetric; chest is bilaterally symmetric; No lungs clear to percussion; lungs clear to auscultation; No crackles, No rhonchi, No rales, No stridor, No wheezing, No pleural rub; other (diminished lower lobes bilat; dyspneic with conversation) Cardiovascular: regular rate-rhythm, S1 and S2 Gastrointestional: No tender, No soft, No round, No distended, No pulsatile mass, No organomegaly, No guarding, No rebound, No tenderness, No hernia, No mass; audible bowel sounds; No abnormal bowel sounds, No abdominal bruits, No spleenomegaly, No other Extremities: No normal range of motion, No non-tender, No normal inspection, No pedal edema, No calf tenderness, No normal capillary refill, No pelvis stable , No calf tenderness, No inflammation, No pedal edema, No slow capillary refill , No swelling, No other, No abrasion, No clubbing, No cyanosis, No ecchymosis, No laceration; no lower extremity edema bilateral; No significant edema, No tenderness, No wound Neurologic/Psychiatric: no motor/sensory deficits, alert, normal mood/affect, oriented x 3, grossly intact Skin: No normal color, No warm/dry, No cyanosis, No cool, No diaphoresis, No damp, No ecchymosis, No jaundice, No mottled, No pallor, No rash, No tattoos/ piercings, No ulcerations, No rash on exposed areas, No ulcerations on exposed areas, No other Results/Procedures: Labs Laboratory Tests 07/22/18 09:30: White Blood Count 12.8H, Red Blood Count 4.31L, Hemoglobin 12.4, Hematocrit 39, Mean Corpuscular Volume 91, Mean Corpuscular Hemoglobin 29, Mean Corpuscular Hemoglobin Concent 32, Red Cell Distribution Width 16.8H, Platelet Count 433H, Mean Platelet Volume 10.4 Microbiology 07/12/18 Blood Culture - Final, Complete No growth 07/18/18 Gram Stain - Final, Resulted 07/18/18 Bronchial Culture - Final, Resulted Staphylococcus epidermidis YEAST 07/18/18 Fungal Culture 1 - Preliminary, Resulted 07/12/18 Urine Culture - Final, Complete NO GROWTH A/P: Assessment/Dx: Severe hypertension, COPD, Pneumonia, Psychiatric disorder Plan: Severe hypertension - better but still systolic BP is 144mmhg. Continue Toprol- XL 100 mg twice a day, norvasc 10. Continue lisinopril to 20mg daily. Echocardiogram done this hospitalization demonstrates normal LVEF with no significant valvular heart disease. Bilateral pneumonia. Psychiatry disorder. Thank you for your consultation. Please call me if you have any questions. Kirsten Reis MD, FACP, FACC, FSCAI, FHRS, CCDS Interventional Cardiology Cardiac Electrophysiology Vascular Medicine and Endovascular Interventions Miguel REIS MD Jul 22, 2018 9:59 am
[2018-07-22 10:02] LABS: BUN/CREATININE RATIO 17; CALCIUM 9.1 MG/DL (8.5-10.1); CARBON DIOXIDE 25 MMOL/L (21-32); CHLORIDE 103 MMOL/L (98-107); CREATININE SERUM 0.83 MG/DL (0.60-1.30); GFR ESTIMATED > 60; GLUCOSE 146 MG/DL (70-105); POTASSIUM 4.2 MMOL/L (3.6-5.0); SODIUM 142 MMOL/L (135-145)
--- NOTE | 2018-07-22 10:54 | Occupational Ther Daily Note ---
OT Current Status-Daily Note Subjective Pt alert, sitting in recliner. Pt does doze throughout therapy. Pt states that her legs hurt worse today, did not rate. Mental Status/Objective Patient Orientation: Person, Place, Time, Situation Therapy Code Descriptions/Definitions Functional [place] Measure: 0=Not Assessed/NA 4=Minimal Assistance 1=Total Assistance 5=Supervision or Setup 2=Maximal Assistance 6=Modified [place] 3=Moderate Assistance 7=Complete [place] Attachments: IV, Oxygen Other Treatment Discussed home environment with pt. Pt states that she has the lower body dressing equipment from previous ARU stay. Has a walk-in shower with seat. Pt then asked about using a w/c at home. BARRIOS explained that she needed to discuss this with addiction social worker. Scenarios with w/c were discussed about how she was going to be able to maneuver the w/c around her house and if doors were wide enough. Pt unable to make many determinations other than she would be able to carry things easier. Pt stated that she would have home health, BARRIOS pointed out that HHC could only be there a certain allotment of time. Pt stated that she knew that. Pt then stated that she had had a fight with her daughter yesterday about the pt telling the daughter that one of the doctors said to the pt that she could go home tomorrow. Pt states that she is too weak. Pt then was able to complete 3 exercises 5-10 reps 2 sets. Pt demonstrated SOA and open mouth breathing while completed exercises against gravity. Pt has limited ROM in shldrs. After therapy, pt sitting in recliner with call light/phone in reach. All needs met in room. OT Short Term Goals Short Term Goals 1=Demonstrate adherence to instructed precautions during ADL tasks. 2=Patient will verbalize/demonstrate understanding of assistive devices/ modifications for ADL. 3=Patient will improve strength/tolerance for activity to enable patient to perform ADL's. OT Nursing Home Goals Religious Education Teacher Goals Time Frame: Jul 20, 2018 Grooming(FIM): 6 Bathing(FIM): 5 Upper Body Dressing(FIM): 5 Lower Body Dressing(FIM): 5 Toileting(FIM): 6 Toilet/Commode Transfer(FIM): 6 Additional Goals: 1-Demonstrate ADL Tasks, 2-Verbalize Understanding, 3- ImproveStrength/Fede 1=Demonstrate adherence to instructed precautions during ADL tasks. 2=Patient will verbalize/demonstrate understanding of assistive devices/ modifications for ADL. 3=Patient will improve strength/tolerance for activity to enable patient to perform ADL's. OT Education/Plan Problem List/Assessment Pt to benefit from skilled OT intervention for ADL training, transfers, strengthening, and safety education to increase level of independence and allow safe discharge plan. Discharge Recommendations Plan/Recommendations: Continue POC Treatment Plan/Plan of Care Patient would benefit from OT for education, treatment and training to promote independence in ADL's, mobility, safety and/or upper extremity function for ADL' s. Plan of Care: ADL Retraining, Functional Mobility, UE Funct Exercise/Act Treatment Duration: Jul 20, 2018 Frequency: 5 times per week Estimated Hrs Per Day: .25 hour per day Rehab Potential: Fair Time/GCodes Start Time: 10:25 Stop Time: 10:44 Total Time Billed (hr/min): 19 Billed Treatment Time 1 visit-FA 1 (19 min) PILLO BABCOCK Jul 22, 2018 10:54
[2018-07-22] MEDS: MENTHOL/ZINC OXIDE (CALMOSEPTINE) 113 GM TUBE TOP SCH ×2 (12:15→21:47)
--- NOTE | 2018-07-22 15:57 | Diagnostic Imaging Report ---
INDICATION: Follow-up pneumonia. TIME OF EXAM: 02:24 p.m. Correlation is made with prior chest from 07/20/2018. FINDINGS: Heart size is normal. Lungs appear to be fairly clear. There is some calcified plaquing in the right upper chest. No effusion or pneumothorax is seen. IMPRESSION: No acute cardiopulmonary process is detected. Dictated by: Dictated on workstation # [id number]
[2018-07-22] MEDS: RT-ADVAIR HFA 115/21 MCG PER PUFF IH SCH ×2 (16:00→21:10)
[2018-07-22 16:13] VITALS: BP 133/72
--- NOTE | 2018-07-22 16:26 | NUR ---
CM/SS. Continued planning with patient for post hospital needs. Discussed timeline, that patient could most likely discharge 1-2 days. At property underwriter's request, patient contacted her bank to have 3 months of statements faxed to hospital to be attached to her [facility] application. Additionally, patient had her Social Security income information for 2019 in her purse, so these items were provided to JESSICAC/ELEN/Stephanie to complete her [facility] summer. If patient does not qualify for full [facility], she may have a spenddown and benefits after that. Patient becomes tearful when considering SNF environment. [employer] attempted to explore different homes since she was last at [facility] because it was close to her daughter's employment. Perhaps a different facility may be more acceptable to patient. UR/Lulu and PT/Kelley shared they each updated Dr. Ward about the complex discharge plan and requested physician direction re same. Followup tomorrow.
--- NOTE | 2018-07-22 17:23 | Pulmonary Progress Note ---
Subjective Time Seen by a Provider: 17:20 Subjective/Events-last exam Pt complains of persistent SOB and cough. Sepsis Event Evaluation Height, Weight, BMI Height: 5'7.00" Weight: 231lbs. 0.0oz. 104.417103ot; 37.0 BMI Method:Stated Exam Exam Vital Signs Date Time Temp Pulse Resp B/P (MAP) Pulse Ox O2 Delivery O2 Flow Rate FiO2 07/22/18 16:13 97.0 90 20 133/72 (92) 97 Nasal Cannula 2.00 07/22/18 15:58 96 Nasal Cannula 2.00 07/22/18 08:03 Nasal Cannula 1.00 07/22/18 08:00 98.0 95 20 144/76 (98) 95 Nasal Cannula 2.00 07/22/18 00:38 97.8 90 18 141/65 (90) 93 Nasal Cannula 2.00 07/21/18 21:00 93 Nasal Cannula 1.00 07/21/18 20:15 Nasal Cannula 1.00 07/21/18 19:19 98.8 91 20 143/70 (94) 98 Nasal Cannula 2.00 I & O 07/22/18 07:00 Intake Total 1630 ml Output Total 1450 ml Balance 180 ml Height & Weight Height: 5'7.00" Weight: 231lbs. 0.0oz. 104.031861sr; 37.0 BMI Method:Stated General Appearance: No Apparent Distress, WD/WN HEENT: Normal ENT Inspection, Pharynx Normal Neck: Full Range of Motion, Normal Inspection Respiratory: No Accessory Muscle Use, No Respiratory Distress, Decreased Breath Sounds Cardiovascular: Regular Rate, Rhythm, No Murmur Capillary Refill: Less Than 3 Seconds Gastrointestinal: non tender, soft Extremity: Normal Capillary Refill, Normal Inspection, Non Tender, Pedal Edema Neurologic/Psychiatric: Alert, Oriented x3, No Motor/Sensory Deficits, Depressed Affect Skin: Normal Color, Warm/Dry Lymphatic: No Adenopathy Results Lab Laboratory Tests 07/22/18 09:30 Assessment/Plan Assessment/Plan S/p fall Acute on chronic respiratory failure - bronch shows yeast -Add Diflucan -Hx of tracheostomy and ARDS -Oxygen Bilateral pneumonia - Persistent leukocytosis -Merrem - was d/c'd -repeat lawson cultures -CXR showed bibasilar infiltrates R>L and Right slightly worse than prior study - S/p Bronchoscopy Severe oxygen dependent COPD with AE -SVNS, advair -Oxygen HTN with tachycardia -Toprol, lisinopril per cardiology dementia vs ICU psychosis -Risperdal 0.5mg BID and PRN Haldol Depression CAD Obesity HX of bipolar/anxiety MERCEDES GARZA DO Jul 22, 2018 17:23
[2018-07-22] MEDS ORDERED: FLUCONAZOLE 200 MG/100 ML 100 ML IV NR (17:30)
[2018-07-22] MEDS: OLANZapine 5 MG (ZyPREXA) TAB PO SCH (21:46)
[2018-07-22] MEDS: LORazepam 1 MG (ATIVAN) TAB PO SCH (21:47)
[2018-07-22] MEDS: POLYETHYLENE GLYCOL 17 GM (MIRALAX) PACK PO SCH (21:47)
[2018-07-22 23:43] VITALS: BP 158/73
[2018-07-23] MEDS: LACTOBACILLUS ACIDOPHILUS (PROBIOTIC) CAPSULE PO SCH ×4 (06:44→16:07)
--- NOTE | 2018-07-23 06:51 | Pulmonary Progress Note ---
Subjective Time Seen by a Provider: 06:51 Subjective/Events-last exam No complications noted. Sepsis Event Evaluation Height, Weight, BMI Height: 5'7.00" Weight: 231lbs. 0.0oz. 104.735277ec; 37.0 BMI Method:Stated Exam Exam Vital Signs Date Time Temp Pulse Resp B/P (MAP) Pulse Ox O2 Delivery O2 Flow Rate FiO2 07/22/18 23:43 98.9 92 20 158/73 (101) 96 Nasal Cannula 1.00 07/22/18 21:11 93 Nasal Cannula 2.00 07/22/18 20:00 Nasal Cannula 1.00 07/22/18 16:13 97.0 90 20 133/72 (92) 97 Nasal Cannula 2.00 07/22/18 15:58 96 Nasal Cannula 2.00 07/22/18 08:03 Nasal Cannula 1.00 07/22/18 08:00 98.0 95 20 144/76 (98) 95 Nasal Cannula 2.00 I & O 07/23/18 07:00 Intake Total 1780 ml Output Total 700 ml Balance 1080 ml Height & Weight Height: 5'7.00" Weight: 231lbs. 0.0oz. 104.540310xo; 37.0 BMI Method:Stated General Appearance: No Apparent Distress, WD/WN HEENT: Normal ENT Inspection, Pharynx Normal Neck: Full Range of Motion, Normal Inspection Respiratory: No Accessory Muscle Use, No Respiratory Distress, Decreased Breath Sounds Cardiovascular: Regular Rate, Rhythm, No Murmur Capillary Refill: Less Than 3 Seconds Gastrointestinal: non tender, soft Extremity: Normal Capillary Refill, Normal Inspection, Non Tender, Pedal Edema Neurologic/Psychiatric: Alert, Oriented x3, No Motor/Sensory Deficits, Depressed Affect Skin: Normal Color, Warm/Dry Lymphatic: No Adenopathy Results Lab Laboratory Tests 07/22/18 09:30 Assessment/Plan Assessment/Plan S/p fall Acute on chronic respiratory failure - bronch shows yeast -Cotinue Diflucan -Hx of tracheostomy and ARDS -Oxygen Bilateral pneumonia - Persistent leukocytosis -Merrem - was d/c'd -repeat lawson cultures -CXR showed bibasilar infiltrates R>L and Right slightly worse than prior study - S/p Bronchoscopy Severe oxygen dependent COPD with AE -SVNS, advair -Oxygen HTN with tachycardia -Toprol, lisinopril per cardiology dementia vs ICU psychosis -Risperdal 0.5mg BID and PRN Haldol Depression CAD Obesity HX of bipolar/anxiety MERCEDES GARZA DO Jul 23, 2018 06:51
[2018-07-23 07:51] LABS: HEMOGLOBIN 12.2 G/DL (11.5-16.0); MEAN PLATELET VOLUME 10.4 FL (7.4-10.4); RED CELL DISTRIBUTION WIDTH 16.5 % (10.0-14.5); WHITE BLOOD COUNT 11.3 10^3/uL (4.3-11.0)
[2018-07-23 07:53] VITALS: BP 145/78
[2018-07-23] MEDS ORDERED: LORazepam 0.5 MG (ATIVAN) TABLET PO PRN (08:00)
[2018-07-23 08:06] LABS: BUN/CREATININE RATIO 17; CALCIUM 9.4 MG/DL (8.5-10.1); CARBON DIOXIDE 29 MMOL/L (21-32); CHLORIDE 104 MMOL/L (98-107); CREATININE SERUM 0.72 MG/DL (0.60-1.30); GFR ESTIMATED > 60; GLUCOSE 90 MG/DL (70-105); POTASSIUM 4.4 MMOL/L (3.6-5.0); SODIUM 142 MMOL/L (135-145)
--- NOTE | 2018-07-23 08:16 | Progress Note (SOAP) ---
Subjective Time Seen by a Provider: 08:10 Subjective/Events-last exam Patient has no complaints this morning. Patient ready to be discharged. Patient needs chcf. Patient refuses chcf and wants to go home. Patient unable to take care of herself at home. To get social and human services assistant involved. Objective Exam Vital Signs Date Time Temp Pulse Resp B/P (MAP) Pulse Ox O2 Delivery O2 Flow Rate FiO2 07/23/18 07:53 98.4 90 20 145/78 (100) 95 Nasal Cannula 2.00 07/22/18 23:43 98.9 92 20 158/73 (101) 96 Nasal Cannula 1.00 07/22/18 21:11 93 Nasal Cannula 2.00 07/22/18 20:00 Nasal Cannula 1.00 07/22/18 16:13 97.0 90 20 133/72 (92) 97 Nasal Cannula 2.00 07/22/18 15:58 96 Nasal Cannula 2.00 I & O 07/23/18 07:00 Intake Total 1900 ml Output Total 700 ml Balance 1200 ml Capillary Refill : Less Than 3 SecondsLess Than 3 Seconds General Appearance: No Apparent Distress, WD/WN HEENT: Normal ENT Inspection Neck: Normal Inspection, Non Tender Respiratory: No Accessory Muscle Use, No Respiratory Distress, Decreased Breath Sounds Cardiovascular: Regular Rate, Rhythm, No Murmur Gastrointestinal: non tender, soft Results Lab Laboratory Tests 07/22/18 09:30 07/23/18 07:15 Laboratory Tests 07/22/18 09:30: White Blood Count 12.8H, Red Blood Count 4.31L, Hemoglobin 12.4, Hematocrit 39, Mean Corpuscular Volume 91, Mean Corpuscular Hemoglobin 29, Mean Corpuscular Hemoglobin Concent 32, Red Cell Distribution Width 16.8H, Platelet Count 433H, Mean Platelet Volume 10.4, Sodium Level 142, Potassium Level 4.2, Chloride Level 103, Carbon Dioxide Level 25, Anion Gap 14, Blood Urea Nitrogen 14, Creatinine 0.83, Estimat Glomerular Filtration Rate > 60, BUN/Creatinine Ratio 17, Glucose Level 146H, Calcium Level 9.1 07/23/18 07:15: White Blood Count 11.3H, Red Blood Count 4.42, Hemoglobin 12.2, Hematocrit 41, Mean Corpuscular Volume 92, Mean Corpuscular Hemoglobin 28, Mean Corpuscular Hemoglobin Concent 30L, Red Cell Distribution Width 16.5H, Platelet Count 378, Mean Platelet Volume 10.4, Sodium Level 142, Potassium Level 4.4, Chloride Level 104, Carbon Dioxide Level 29, Anion Gap 9, Blood Urea Nitrogen 12, Creatinine 0.72, Estimat Glomerular Filtration Rate > 60, BUN/Creatinine Ratio 17, Glucose Level 90, Calcium Level 9.4 Microbiology 07/12/18 Blood Culture - Final, Complete No growth 07/18/18 Gram Stain - Final, Resulted 07/18/18 Bronchial Culture - Final, Resulted Staphylococcus epidermidis YEAST 07/18/18 Fungal Culture 1 - Preliminary, Resulted 07/12/18 Urine Culture - Final, Complete NO GROWTH Assessment/Plan Assessment/Plan Assess & Plan/Chief Complaint Fall with no fractures. Bilateral pneumonia. COPD. Bipolar. Dementia. Hypertension. History of tobaccoism. . 07/09/18. Fall with no fractures. Bilateral pneumonia. COPD. Bipolar. Dementia. Has some dementia. Hypertension. Confusion.. . 07/10/18. Fall with no fracture. Bilateral pneumonia. COPD. Bipolar. Dementia. Confusion. Agitation. Hypertension better. Patient not confused this morning and resting comfortably. Consult social and human services assistant. . 07/11/18 for with no fractures. Bilateral pneumonia improving. COPD. Bipolar. Confusion getting less according to patient. Agitation. Dementia. Consult mental health. Hypertension better. . 07/12/18. 4 with no fractures. Pneumonia. COPD. Bipolar. Dementia. Pain in the left knee. Leukocytosis. . 07/15/18. Fall. Pneumonia. COPD. Bipolar. Dementia. Left knee pain. Leukocytosis. Hypertension. . 07/16/18. Fall with no fracture. Pneumonia. COPD. Bipolar. Dementia. Hypertension. . 07/17/18 for with no fractures. Bilateral pneumonia. COPD. Bipolar. Dementia. Patient have bronchoscopy tomorrow.. . Bilateral pneumonia. COPD with acute exacerbation. Bipolar. Right knee pain better. Dementia.. . 07/19/18. Bilateral pneumonia. COPD with acute exacerbation. Bipolar. Dementia. Left ankle hurts today without trauma. . 07/22/18. COPD with acute exacerbation. Bipolar. Dementia. Left knee hurts today. Patient still short of breath with exertion. . 07/23/18. COPD with acute exacerbation resolved. Bipolar. Dementia. Left knee pain. Patient stable. Patient wants to get home and unable to take care of herself. Patient needs chcf. Get social and human services assistant involved Clinical Quality Measures DVT/VTE Risk/Contraindication: Risk Factor Score Per Nursin RFS Level Per Nursing on Admit: 4+=Very High JOCELYNE MEI DO Jul 23, 2018 08:16
--- NOTE | 2018-07-23 10:00 | NUR ---
DOCTOR DISCUSSED WITH PT NEED FOR NH PLACEMENT UNTIL PT STRONGER. PT TEARFUL AND HAS BECOME NONCOMPLIANT. INCONTINENT OF BM IN BED, REFUSED TO ASSIST WITH BATHING, AND REFUSED TO CLEANSE HERSELF AFTER TOILETING. HAD REFUSED MEDS EARLIER THIS AM, BUT AGREED TO TAKE MEDS AT THIS TIME, HOWEVER HAD TO BE SPOONFED MEDS IN APPLESAUCE.
--- NOTE | 2018-07-23 10:00 | NUR ---
MOTRIN 800MG PO FOR KNEE PAIN.
[2018-07-23] MEDS: RT-ALBUTEROL/IPRATROPIUM 3 ML (DUONEB) VIAL INH SCH ×3 (10:06→23:09)
[2018-07-23] MEDS: RT-ADVAIR HFA 115/21 MCG PER PUFF IH SCH ×2 (10:11→23:09)
[2018-07-23] MEDS: SUCRALFATE 1 GM (CARAFATE) TAB PO SCH ×3 (10:11→20:54)
[2018-07-23] MEDS: AZITHROMYCIN 250 MG TAB (ZITHROMAX) PO SCH (10:11)
[2018-07-23] MEDS: PANTOPRAZOLE 40 MG (PROTONIX) TAB PO SCH ×2 (10:12→20:54)
[2018-07-23] MEDS: FAMOTIDINE 20 MG (PEPCID) TABLET PO SCH (10:12)
[2018-07-23] MEDS: amLODIPine 10 MG (NORVASC) TAB PO SCH (10:12)
[2018-07-23] MEDS: LORATADINE (CLARITIN) 10 MG TAB PO SCH (10:12)
[2018-07-23] MEDS: meTOprolol SUCCINATE 100 MG (TOPROL XL) TAB PO SCH ×2 (10:12→20:54)
[2018-07-23] MEDS: guaiFENesin (MUCINEX) 600 MG TAB PO SCH ×2 (10:12→20:54)
[2018-07-23] MEDS: risperiDONE 1 MG (RisperDAL) TAB PO SCH ×2 (10:12→20:54)
[2018-07-23] MEDS: DONEPEZIL 10 MG (ARICEPT) TAB PO SCH (10:12)
[2018-07-23] MEDS: lisINopril 20 MG (PRINIVIL) TABLET PO SCH (10:12)
[2018-07-23] MEDS: IBUPROFEN 800 MG (MOTRIN) TAB PO PRN (10:12)
[2018-07-23] MEDS: CYCLOBENZAPRINE 10 MG (FLEXERIL) TAB PO SCH ×3 (10:12→20:54)
[2018-07-23] MEDS: MENTHOL/ZINC OXIDE (CALMOSEPTINE) 113 GM TUBE TOP SCH ×2 (10:13→20:55)
[2018-07-23] MEDS: ENOXAPARIN 40 MG/0.4 ML (LOVENOX) SYR SC SCH (10:13)
--- NOTE | 2018-07-23 10:19 | Cardiology Progress Note ---
Cardiology SOAP Progress Note Subjective: No cardiac complaints. Objective: I&O/Vital Signs 07/22/18 07/23/18 07/23/18 23:43 07:53 10:06 Temp 98.9 98.4 Pulse 92 90 Resp 20 20 B/P (MAP) 158/73 (101) 145/78 (100) Pulse Ox 96 95 93 O2 Delivery Nasal Cannula Nasal Cannula Nasal Cannula O2 Flow Rate 1.00 2.00 1.50 07/22/18 23:59 Intake Total 1780 ml Output Total 700 ml Balance 1080 ml Weight (Pounds): 231 Weight (Ounces): 0.0 Weight (Calculated Kilograms): 104.316267 Constitutional: appears stated age; No AAO x 3, No apparent distress, No PERRL ; well-developed, well-nourished; No other Respiratory: No accessory muscle use, No respiratory distress, No chest tender , No chest expansion is symmetric; chest is bilaterally symmetric; No lungs clear to percussion; lungs clear to auscultation; No crackles, No rhonchi, No rales, No stridor, No wheezing, No pleural rub; other (diminished lower lobes bilat; dyspneic with conversation) Cardiovascular: regular rate-rhythm, S1 and S2 Gastrointestional: No tender, No soft, No round, No distended, No pulsatile mass, No organomegaly, No guarding, No rebound, No tenderness, No hernia, No mass; audible bowel sounds; No abnormal bowel sounds, No abdominal bruits, No spleenomegaly, No other Extremities: No normal range of motion, No non-tender, No normal inspection, No pedal edema, No calf tenderness, No normal capillary refill, No pelvis stable , No calf tenderness, No inflammation, No pedal edema, No slow capillary refill , No swelling, No other, No abrasion, No clubbing, No cyanosis, No ecchymosis, No laceration; no lower extremity edema bilateral; No significant edema, No tenderness, No wound Neurologic/Psychiatric: no motor/sensory deficits, alert, normal mood/affect, oriented x 3, grossly intact Skin: No normal color, No warm/dry, No cyanosis, No cool, No diaphoresis, No damp, No ecchymosis, No jaundice, No mottled, No pallor, No rash, No tattoos/ piercings, No ulcerations, No rash on exposed areas, No ulcerations on exposed areas, No other Results/Procedures: Labs Laboratory Tests 07/23/18 07:15: White Blood Count 11.3H, Red Blood Count 4.42, Hemoglobin 12.2, Hematocrit 41, Mean Corpuscular Volume 92, Mean Corpuscular Hemoglobin 28, Mean Corpuscular Hemoglobin Concent 30L, Red Cell Distribution Width 16.5H, Platelet Count 378, Mean Platelet Volume 10.4, Sodium Level 142, Potassium Level 4.4, Chloride Level 104, Carbon Dioxide Level 29, Anion Gap 9, Blood Urea Nitrogen 12, Creatinine 0.72, Estimat Glomerular Filtration Rate > 60, BUN/Creatinine Ratio 17, Glucose Level 90, Calcium Level 9.4 Microbiology 07/12/18 Blood Culture - Final, Complete No growth 07/18/18 Gram Stain - Final, Resulted 07/18/18 Bronchial Culture - Final, Resulted Staphylococcus epidermidis YEAST 07/18/18 Fungal Culture 1 - Preliminary, Resulted No growth 07/12/18 Urine Culture - Final, Complete NO GROWTH A/P: Assessment/Dx: Severe hypertension, COPD, Pneumonia, Psychiatric disorder Plan: Severe hypertension - better but still systolic BP is > 140 mmhg. Continue Toprol-XL 100 mg twice a day, norvasc 10. Continue lisinopril to 20mg daily. Echocardiogram done this hospitalization demonstrates normal LVEF with no significant valvular heart disease. Bilateral pneumonia. Psychiatry disorder. Thank you for your consultation. Please call me if you have any questions. Kirsten Reis MD, FACP, FACC, FSCAI, FHRS, CCDS Interventional Cardiology Cardiac Electrophysiology Vascular Medicine and Endovascular Interventions Miguel REIS MD Jul 23, 2018 10:19 am
--- NOTE | 2018-07-23 11:05 | Occupational Ther Daily Note ---
OT Current Status-Daily Note Subjective Pt alert, sitting in recliner. Pt stated that she has been told she is going to the NH today and became tearful. BARRIOS explained to pt that she will have more care at the NH and will be safer for her. Pt then asked why should she do anything, explained that it would be better for her to keep working to get stronger to take care of herself. Mental Status/Objective Patient Orientation: Person, Place, Time, Situation Therapy Code Descriptions/Definitions Functional [place] Measure: 0=Not Assessed/NA 4=Minimal Assistance 1=Total Assistance 5=Supervision or Setup 2=Maximal Assistance 6=Modified [place] 3=Moderate Assistance 7=Complete [place] Other Treatment Pt given light resistance theraband for HEP. Pt demonstrated exercises that she completed at a previous rehab stay. Pt able to complete 5 reps with shldr exercise due to pain. Pt able to complete all other exercises 10 reps each 3 sets. After therapy, pt sitting in recliner with call light/phone in reach. All needs met in room. OT Short Term Goals Short Term Goals 1=Demonstrate adherence to instructed precautions during ADL tasks. 2=Patient will verbalize/demonstrate understanding of assistive devices/ modifications for ADL. 3=Patient will improve strength/tolerance for activity to enable patient to perform ADL's. OT Event Sales Manager Goals Event Sales Manager Goals Time Frame: Jul 20, 2018 Grooming(FIM): 6 Bathing(FIM): 5 Upper Body Dressing(FIM): 5 Lower Body Dressing(FIM): 5 Toileting(FIM): 6 Toilet/Commode Transfer(FIM): 6 Additional Goals: 1-Demonstrate ADL Tasks, 2-Verbalize Understanding, 3- ImproveStrength/Fede 1=Demonstrate adherence to instructed precautions during ADL tasks. 2=Patient will verbalize/demonstrate understanding of assistive devices/ modifications for ADL. 3=Patient will improve strength/tolerance for activity to enable patient to perform ADL's. OT Education/Plan Problem List/Assessment Pt to benefit from skilled OT intervention for ADL training, transfers, strengthening, and safety education to increase level of independence and allow safe discharge plan. Discharge Recommendations Plan/Recommendations: Continue POC Treatment Plan/Plan of Care Patient would benefit from OT for education, treatment and training to promote independence in ADL's, mobility, safety and/or upper extremity function for ADL' s. Plan of Care: ADL Retraining, Functional Mobility, UE Funct Exercise/Act Treatment Duration: Jul 20, 2018 Frequency: 5 times per week Estimated Hrs Per Day: .25 hour per day Rehab Potential: Fair Time/GCodes Start Time: 10:50 Stop Time: 11:00 Total Time Billed (hr/min): 10 Billed Treatment Time 1 visit-EX 1 (10 min) PILLO BABCOCK Jul 23, 2018 11:05
--- NOTE | 2018-07-23 11:34 | Physical Therapy Daily Note ---
PT Daily Note-Current Subjective Patient in recliner pre tx, agrees to PT, verbalizes no complaints of pain. Patient is upset because she is going to a retirement today. Appearance Patient in recliner post tx with nurse call, phone, tray, all needs met. Chair alarm on. Mental Status Patient Orientation: Person, Place, Situation Attachments: Oxygen Transfers Therapy Code Descriptions/Definitions Functional [place] Measure: 0=Not Assessed/NA 4=Minimal Assistance 1=Total Assistance 5=Supervision or Setup 2=Maximal Assistance 6=Modified [place] 3=Moderate Assistance 7=Complete [place] Therapy Quality Codes: 6 Independent with activity with or without an assistive device 5 Patient requires set up or clean up by helper. Patient completes activity by themselves 4 Supervision or touching assist (CGA). [place] provide cues , steadying assist 3 The helper provides less than half the effort to complete the activity 2 The helper provides more than half the effort to complete the activity 1 Dependent. The helper does all the effort to complete an activity 7 Patient refused to complete or attempt activity 9 The patient did not perform the activity before the current illness or injury 88 Not attempted due to Medical conditions or safety concerns Transfers (B, C, W/C) (FIM): 4 Sit to/from Stand: 4 Bed to/from Chair: 4 Min assist to stand, take several attempts. Weight Bearing Right Lower Extremity: Right Full Weight Bearing Left Lower Extremity: Left Full Weight Bearing Gait Training Gait (FIM): 1 Distance: 12' Gait Level of Assist: 4 Gait Persons Needed: 1 Gait Assistive Device: FWW CGA, patient ambulates forward about 6' and then turns back to walk back to the chair, patient is very SOB after this short distance, cued to purse lip breathe. Exercises Seated Therapy Exercises: Ankle pumps, Long arc quads Seated Reps: 20 Treatments transfers, ambulation, functional strengthening Assessment Current Status: Fair Progress improved ambulation PT Grain Receiver Goals Grain Receiver Goals PT Grain Receiver Goals Time Frame: Jul 27, 2018 Transfers (B,C,W/C) (FIM): 6 Gait (FIM): 6 Gait distance (FIM): 3=150 ft Gait Assistive Device: FWW PT Plan Problem List Problem List: Activity Tolerance, Functional Strength, Safety, Balance, Gait, Transfer, Bed Mobility, ROM Treatment/Plan Treatment Plan: Continue Plan of Care Treatment Plan: Bed Mobility, Education, Functional Activity Fede, Functional Strength, Gait, Safety, Therapeutic Exercise, Transfers Treatment Duration: Jul 27, 2018 Frequency: 6 times per week Estimated Hrs Per Day: .5 hour per day Patient and/or Family Agrees t: Yes Safety Risks/Education Patient Education: Gait Training, Transfer Techniques, Correct Positioning, Safety Issues Teaching Recipient: Patient Teaching Methods: Demonstration, Discussion Response to Teaching: Reinforcement Needed Time/GCodes Time In: 1115 Time Out: 1130 Total Billed Treatment Time: 15 Total Billed Treatment 1 visit GT 15' CLAU SALAZAR PT Jul 23, 2018 11:34
--- NOTE | 2018-07-23 14:22 | NUR ---
PT EATING WELL, 95% MEALS. INTAKE MEETING NEEDS AT THIS TIME. CONT SAME.
--- NOTE | 2018-07-23 15:18 | NUR ---
CM/SS, continued discharge activities. Patient was informed yesterday to anticipate discharge 1-2 days, she refused to sign IMM second copy until she could speak with her daughter. Presented again this date, patient signed, original to chart and copy to patient left in her room. Multiple phone conversations with daughter/DPOA-HC Krishnan at her work to discuss detailed overview of situation. She does agree patient is unable to safely be at home at this time. Discussed all local SNF's, asked for room rates and stated she did not have time to call around and explore. [employer] did get her some updates re rates as it pertains to patient's 80/20% responsibility until some supplemental insurance can be secured. agreed to referral with [email or web address] [employer] [place], completed, await confirmation/decision. Patient apparently worked at [employer] for 17 years, now [employer], indicated patient would not want to admit there. [email or web address] [place] may be next option, [facility] room rates are higher and presents a problem re patient financial obligation. Followup in a.m. Physician has entered discharge, patient to be presented HINN Letter at appropriate time if necessary. CARE Assessment remains current. Complex due to inability to overcome impasse from patient regarding SNF and delay in reaching daughter /POA by phone until learning employment and calling there. Called patient's son in [place] and left message, never responded. Patient does have a newly established apartment in [place] and is torn about whether to keep this. She just got moved in, difficult to move everything out until a clearer future is known about care needs. Patient could benefit from this financially however when the time is right.
--- NOTE | 2018-07-23 15:42 | NUR ---
THIS RN TO ASSUME PATIENT CARE.
[2018-07-23 16:45] VITALS: BP 144/73
[2018-07-23] MEDS ORDERED: FLUCONAZOLE 200 MG/100 ML 50 ML, EMPTY IV BAG (PVC) 1 EA IV SCH ×2 (17:00)
[2018-07-23] MEDS: HYDROcodone/APAP 10 MG/325 MG (LORTAB) TAB PO PRN (18:04)
[2018-07-23] MEDS: POLYETHYLENE GLYCOL 17 GM (MIRALAX) PACK PO SCH (20:54)
[2018-07-23] MEDS: OLANZapine 5 MG (ZyPREXA) TAB PO SCH (20:59)
[2018-07-23 23:26] VITALS: BP 130/80
[2018-07-24] MEDS: LACTOBACILLUS ACIDOPHILUS (PROBIOTIC) CAPSULE PO SCH ×2 (05:59→12:32)
[2018-07-24] MEDS: RT-ALBUTEROL/IPRATROPIUM 3 ML (DUONEB) VIAL INH SCH (07:17)
[2018-07-24] MEDS: RT-ADVAIR HFA 115/21 MCG PER PUFF IH SCH (07:18)
--- NOTE | 2018-07-24 08:11 | Pulmonary Progress Note ---
Subjective Time Seen by a Provider: 08:10 Subjective/Events-last exam PT is doing better. Sepsis Event Evaluation Height, Weight, BMI Height: 5'7.00" Weight: 229lbs. 1.0oz. 103.442350oz; 37.0 BMI Method:Stated Exam Exam Vital Signs Date Time Temp Pulse Resp B/P (MAP) Pulse Ox O2 Delivery O2 Flow Rate FiO2 07/24/18 07:20 94 Nasal Cannula 1.00 07/23/18 23:26 96.8 77 14 130/80 (97) 94 Nasal Cannula 1.00 07/23/18 20:00 Nasal Cannula 1.00 07/23/18 16:45 96.1 80 18 144/73 (96) 93 Nasal Cannula 1.00 07/23/18 10:06 93 Nasal Cannula 1.50 I & O 07/24/18 07:00 Intake Total 1370 ml Output Total 600 ml Balance 770 ml Height & Weight Height: 5'7.00" Weight: 229lbs. 1.0oz. 103.739289yw; 37.0 BMI Method:Stated General Appearance: No Apparent Distress, WD/WN HEENT: Normal ENT Inspection Neck: Normal Inspection, Non Tender Respiratory: No Accessory Muscle Use, No Respiratory Distress, Decreased Breath Sounds Cardiovascular: Regular Rate, Rhythm, No Murmur Capillary Refill: Less Than 3 Seconds Gastrointestinal: non tender, soft Extremity: Normal Capillary Refill, Normal Inspection, Non Tender, Pedal Edema Neurologic/Psychiatric: Alert, Oriented x3, No Motor/Sensory Deficits, Depressed Affect Skin: Normal Color, Warm/Dry Lymphatic: No Adenopathy Results Lab Laboratory Tests 07/22/18 09:30 07/23/18 07:15 Assessment/Plan Assessment/Plan S/p fall Acute on chronic respiratory failure - bronch shows yeast -Cotinue Diflucan - change to PO -Hx of tracheostomy and ARDS -Oxygen Bilateral pneumonia - Persistent leukocytosis -Merrem - was d/c'd -repeat alwson cultures -CXR showed bibasilar infiltrates R>L and Right slightly worse than prior study - S/p Bronchoscopy Severe oxygen dependent COPD with AE -SVNS, advair -Oxygen HTN with tachycardia -Toprol, lisinopril per cardiology dementia vs ICU psychosis -Risperdal 0.5mg BID and PRN Haldol Depression CAD Obesity HX of bipolar/anxiety Plan is for discharge to F today. MERCEDES GARZA DO Jul 24, 2018 08:11
--- NOTE | 2018-07-24 08:45 | Progress Note (SOAP) ---
Subjective Time Seen by a Provider: 08:44 Subjective/Events-last exam Patient willing to go to a group home today. Pulmonology stated okay for discharge today. Objective Exam Vital Signs Date Time Temp Pulse Resp B/P (MAP) Pulse Ox O2 Delivery O2 Flow Rate FiO2 07/24/18 07:20 94 Nasal Cannula 1.00 07/23/18 23:26 96.8 77 14 130/80 (97) 94 Nasal Cannula 1.00 07/23/18 20:00 Nasal Cannula 1.00 07/23/18 16:45 96.1 80 18 144/73 (96) 93 Nasal Cannula 1.00 07/23/18 10:06 93 Nasal Cannula 1.50 I & O 07/24/18 07:00 Intake Total 1370 ml Output Total 600 ml Balance 770 ml Capillary Refill : Less Than 3 SecondsLess Than 3 Seconds General Appearance: No Apparent Distress, WD/WN HEENT: Normal ENT Inspection Neck: Full Range of Motion, Normal Inspection Results Lab Microbiology 07/12/18 Blood Culture - Final, Complete No growth 07/18/18 Gram Stain - Final, Resulted 07/18/18 Bronchial Culture - Final, Resulted Staphylococcus epidermidis YEAST 07/18/18 Fungal Culture 1 - Preliminary, Resulted No growth 07/12/18 Urine Culture - Final, Complete NO GROWTH Assessment/Plan Assessment/Plan Assess & Plan/Chief Complaint Fall with no fractures. Bilateral pneumonia. COPD. Bipolar. Dementia. Hypertension. History of tobaccoism. . 07/09/18. Fall with no fractures. Bilateral pneumonia. COPD. Bipolar. Dementia. Has some dementia. Hypertension. Confusion.. . 07/10/18. Fall with no fracture. Bilateral pneumonia. COPD. Bipolar. Dementia. Confusion. Agitation. Hypertension better. Patient not confused this morning and resting comfortably. Consult social work faculty member. . 07/11/18 for with no fractures. Bilateral pneumonia improving. COPD. Bipolar. Confusion getting less according to patient. Agitation. Dementia. Consult mental health. Hypertension better. . 07/12/18. 4 with no fractures. Pneumonia. COPD. Bipolar. Dementia. Pain in the left knee. Leukocytosis. . 07/15/18. Fall. Pneumonia. COPD. Bipolar. Dementia. Left knee pain. Leukocytosis. Hypertension. . 07/16/18. Fall with no fracture. Pneumonia. COPD. Bipolar. Dementia. Hypertension. . 07/17/18 for with no fractures. Bilateral pneumonia. COPD. Bipolar. Dementia. Patient have bronchoscopy tomorrow.. . Bilateral pneumonia. COPD with acute exacerbation. Bipolar. Right knee pain better. Dementia.. . 07/19/18. Bilateral pneumonia. COPD with acute exacerbation. Bipolar. Dementia. Left ankle hurts today without trauma. . 07/22/18. COPD with acute exacerbation. Bipolar. Dementia. Left knee hurts today. Patient still short of breath with exertion. . 07/23/18. COPD with acute exacerbation resolved. Bipolar. Dementia. Left knee pain. Patient stable. Patient wants to get home and unable to take care of herself. Patient needs group home. Get social work faculty member involved. . 07/24/18. COPD. Bipolar. Dementia. Left knee pain. Pulmonology state okay to be discharged. Patient stated she will go to a group home today Clinical Quality Measures DVT/VTE Risk/Contraindication: Risk Factor Score Per Nursin RFS Level Per Nursing on Admit: 4+=Very High JOCELYNE MEI DO Jul 24, 2018 08:45
[2018-07-24 08:49] VITALS: BP 121/64
[2018-07-24] MEDS: CYCLOBENZAPRINE 10 MG (FLEXERIL) TAB PO SCH ×2 (09:01→12:32)
[2018-07-24] MEDS: LORATADINE (CLARITIN) 10 MG TAB PO SCH (09:02)
[2018-07-24] MEDS: lisINopril 20 MG (PRINIVIL) TABLET PO SCH (09:02)
[2018-07-24] MEDS: PANTOPRAZOLE 40 MG (PROTONIX) TAB PO SCH (09:02)
[2018-07-24] MEDS: HYDROcodone/APAP 10 MG/325 MG (LORTAB) TAB PO PRN ×2 (09:02→13:59)
[2018-07-24] MEDS: guaiFENesin (MUCINEX) 600 MG TAB PO SCH (09:02)
[2018-07-24] MEDS: FAMOTIDINE 20 MG (PEPCID) TABLET PO SCH (09:02)
[2018-07-24] MEDS: risperiDONE 1 MG (RisperDAL) TAB PO SCH (09:02)
[2018-07-24] MEDS: meTOprolol SUCCINATE 100 MG (TOPROL XL) TAB PO SCH (09:02)
[2018-07-24] MEDS: DONEPEZIL 10 MG (ARICEPT) TAB PO SCH (09:02)
[2018-07-24] MEDS: SUCRALFATE 1 GM (CARAFATE) TAB PO SCH ×2 (09:02→12:32)
[2018-07-24] MEDS: amLODIPine 10 MG (NORVASC) TAB PO SCH (09:02)
[2018-07-24] MEDS: MENTHOL/ZINC OXIDE (CALMOSEPTINE) 113 GM TUBE TOP SCH (09:03)
[2018-07-24] MEDS: ENOXAPARIN 40 MG/0.4 ML (LOVENOX) SYR SC SCH (09:03)
--- NOTE | 2018-07-24 09:16 | Cardiology Progress Note ---
Cardiology SOAP Progress Note Subjective: Denies any cardiac complaints. Objective: I&O/Vital Signs 07/23/18 07/24/18 23:26 07:20 Temp 96.8 Pulse 77 Resp 14 B/P (MAP) 130/80 (97) Pulse Ox 94 94 O2 Delivery Nasal Cannula Nasal Cannula O2 Flow Rate 1.00 1.00 07/24/18 00:00 Intake Total 1270 ml Balance 1270 ml Weight (Pounds): 229 Weight (Ounces): 1.0 Weight (Calculated Kilograms): [id number] Constitutional: appears stated age; No AAO x 3, No apparent distress, No PERRL ; well-developed, well-nourished; No other Respiratory: No accessory muscle use, No respiratory distress, No chest tender , No chest expansion is symmetric; chest is bilaterally symmetric; No lungs clear to percussion; lungs clear to auscultation; No crackles, No rhonchi, No rales, No stridor, No wheezing, No pleural rub; other (diminished lower lobes bilat; dyspneic with conversation) Cardiovascular: regular rate-rhythm, S1 and S2 Gastrointestional: No tender, No soft, No round, No distended, No pulsatile mass, No organomegaly, No guarding, No rebound, No tenderness, No hernia, No mass; audible bowel sounds; No abnormal bowel sounds, No abdominal bruits, No spleenomegaly, No other Extremities: No normal range of motion, No non-tender, No normal inspection, No pedal edema, No calf tenderness, No normal capillary refill, No pelvis stable , No calf tenderness, No inflammation, No pedal edema, No slow capillary refill , No swelling, No other, No abrasion, No clubbing, No cyanosis, No ecchymosis, No laceration; no lower extremity edema bilateral; No significant edema, No tenderness, No wound Neurologic/Psychiatric: no motor/sensory deficits, alert, normal mood/affect, oriented x 3, grossly intact Skin: No normal color, No warm/dry, No cyanosis, No cool, No diaphoresis, No damp, No ecchymosis, No jaundice, No mottled, No pallor, No rash, No tattoos/ piercings, No ulcerations, No rash on exposed areas, No ulcerations on exposed areas, No other Results/Procedures: Labs Microbiology 07/12/18 Blood Culture - Final, Complete No growth 07/18/18 Gram Stain - Final, Resulted 07/18/18 Bronchial Culture - Final, Resulted Staphylococcus epidermidis YEAST 07/18/18 Fungal Culture 1 - Preliminary, Resulted No growth 07/12/18 Urine Culture - Final, Complete NO GROWTH A/P: Assessment/Dx: Severe hypertension, COPD, Pneumonia, Psychiatric disorder Plan: Severe hypertension - better but still systolic BP ~ 140 mmhg. Continue Toprol- XL 100 mg twice a day, norvasc 10. Continue lisinopril to 20mg daily. Echocardiogram done this hospitalization demonstrates normal LVEF with no significant valvular heart disease. Bilateral pneumonia. Psychiatry disorder. Patient is being discharged today. I will be happy to follow as an outpatient if required. Thank you for your consultation. Please call me if you have any questions. Kirsten Reis MD, FACP, FACC, FSCAI, FHRS, CCDS Interventional Cardiology Cardiac Electrophysiology Vascular Medicine and Endovascular Interventions Miguel REIS MD Jul 24, 2018 9:16 am
[2018-07-24] MEDS ORDERED: FLUC100T6 PO (09:26)
--- NOTE | 2018-07-24 10:39 | NUR ---
CM/SS. Patient has been accepted by [facility] for Medicare skilled therapies, 2 full coverage days remaining prior to 80/20 window. Updated patient, attempted to call daughter at employment and left detailed message. Texted daughter on cell to inform her MLF at accepted and requested call to discuss. MLF working to protect patient as much as possible regarding any [id number] obligations and to secure "Medicaid pending" status as soon as patient meets criteria. Patient has pajamas that she arrived in at admission, will wear those unless daughter desires to bring clothing from home. CARE Assessment remains current. Faxed orders to MLF, will forward discharge summary once completed, continuum of care packet prepared to accompany patient. Unit RN updated of all, she is calling Dr. Ward to request finalization of overall discharge.
--- NOTE | 2018-07-24 13:54 | Physical Therapy Daily Note ---
PT Daily Note-Current Subjective Pt. declines PT Rx stating she has pain in her left knee at 10/10 and requests pain meds asking that this ACCOUNTING RECONCILIATION CLERK remind nurse that she can have Tylenol in between her other meds. Nursing shares that pt. will DC to [employer] [facility] [facility] at @pm Pain Numeric Pain Scale: 10-Worst Possible Pain Location: Left Location Body Site: Knee Pain Description: Ache Transfers Therapy Code Descriptions/Definitions Functional [place] Measure: 0=Not Assessed/NA 4=Minimal Assistance 1=Total Assistance 5=Supervision or Setup 2=Maximal Assistance 6=Modified [place] 3=Moderate Assistance 7=Complete [place] Therapy Quality Codes: 6 Independent with activity with or without an assistive device 5 Patient requires set up or clean up by helper. Patient completes activity by themselves 4 Supervision or touching assist (CGA). [place] provide cues , steadying assist 3 The helper provides less than half the effort to complete the activity 2 The helper provides more than half the effort to complete the activity 1 Dependent. The helper does all the effort to complete an activity 7 Patient refused to complete or attempt activity 9 The patient did not perform the activity before the current illness or injury 88 Not attempted due to Medical conditions or safety concerns Weight Bearing Right Lower Extremity: Right Full Weight Bearing Left Lower Extremity: Left Full Weight Bearing Assessment Current Status: Refused Treatment pain limits participation PT Lease Administrator Goals Lease Administrator Goals PT Lease Administrator Goals Time Frame: Jul 27, 2018 Transfers (B,C,W/C) (FIM): 6 Gait (FIM): 6 Gait distance (FIM): 3=150 ft Gait Assistive Device: FWW PT Plan Treatment/Plan Treatment Plan: Continue Plan of Care Treatment Plan: Bed Mobility, Education, Functional Activity Fede, Functional Strength, Gait, Safety, Therapeutic Exercise, Transfers Treatment Duration: Jul 27, 2018 Frequency: 6 times per week Estimated Hrs Per Day: .5 hour per day Patient and/or Family Agrees t: Yes Time/GCodes Time In: 1350 Time Out: 1354 Total Billed Treatment Time: 0 Total Billed Treatment 1,no CHG, no RX G Codes Necessary: No LYNN MARTINEZ ACCOUNTING RECONCILIATION CLERK Jul 24, 2018 13:54
[2018-07-24] MEDS ORDERED: fluCOnazole (DIFLUCAN) 100 MG TAB PO SCH (17:00)
--- NOTE | 2018-07-25 07:37 | Discharge Summary ---
Diagnosis/Chief Complaint Date of Admission Jul 05, 2018 at 15:40 Date of Discharge Jul 24, 2018 at 14:35 Discharge Diagnosis Bilateral pneumonia. Yeast. Staphylococcus epidermidis. Hypertension. Acute and chronic respiratory failure. COPD with acute exacerbation. Bipolar. Dementia. Anemia. Anxiety disorder. Knee pain. GERD. Obesity. Psoriasis. Discharge Summary Procedures Bronchoscopy. Cortisone in knee. Consultations Pulmonology. Cardiology. Orthopedics. Discharge Physical Examination Allergies: Coded Allergies: clindamycin (Unverified Allergy, Mild, HIVES, 11/21/09) meperidine (Unverified Allergy, Mild, HAS RECEIVED F[place] IN THE PAST, ) morphine (Unverified Allergy, Mild, 11/21/09) codeine (Verified Adverse Reaction, Unknown, NAUSEA, 11/21/09) Vitals & I&Os Vital Signs Date Time Temp Pulse Resp B/P (MAP) Pulse Ox O2 Delivery O2 Flow Rate FiO2 07/24/18 14:30 07/24/18 08:49 96.9 88 14 97 Nasal Cannula 1.00 Hospital Course Patient did not want to go to a penitentiary. Patient wanted to go home. Patient realized she was not able to take care of herself Labs (last 24 hrs) Laboratory Tests 07/05/18 12:27: White Blood Count 19.9H, Red Blood Count 4.77, Hemoglobin 13.5, Hematocrit 44, Mean Corpuscular Volume 92, Mean Corpuscular Hemoglobin 28, Mean Corpuscular Hemoglobin Concent 31L, Red Cell Distribution Width 16.4H, Platelet Count 378, Mean Platelet Volume 10.3, Neutrophils (%) (Auto) 83H, Lymphocytes (%) (Auto) 9L , Monocytes (%) (Auto) 8, Eosinophils (%) (Auto) 0, Basophils (%) (Auto) 0, Neutrophils # (Auto) 16.5H, Lymphocytes # (Auto) 1.8, Monocytes # (Auto) 1.5H, Eosinophils # (Auto) 0.0, Basophils # (Auto) 0.1, Neutrophils % (Manual) 72, Lymphocytes % (Manual) 11, Monocytes % (Manual) 10, Eosinophils % (Manual) 0, Basophils % (Manual) 0, Band Neutrophils 7, Toxic Granulation 1+, Blood Morphology Comment NORMAL, Prothrombin Time 12.9, INR Comment 1.0, Activated Partial Thromboplast Time 35, Sodium Level 143, Potassium Level 4.2, Chloride Level 101, Carbon Dioxide Level 29, Anion Gap 13, Blood Urea Nitrogen 14, Creatinine 0.91, Estimat Glomerular Filtration Rate > 60, BUN/Creatinine Ratio 15, Glucose Level 112H, Calcium Level 9.9, Corrected Calcium 10.0, Total Bilirubin 0.4, Aspartate Amino Transf (AST/SGOT) 21, Alanine Aminotransferase ( ALT/SGPT) 18, Alkaline Phosphatase 115, Troponin I 0.114, Total Protein 7.4, Albumin 3.9 07/05/18 12:35: Blood Gas Puncture Site RIGHT RADIAL, Blood Gas Patient Temperature 98, Arterial Blood pH 7.37, Arterial Blood Partial Pressure CO2 55H, Arterial Blood Partial Pressure O2 72L, Arterial Blood HCO3 31H, Arterial Blood Total CO2 33.1H , Arterial Blood Oxygen Saturation 95, Arterial Blood Base Excess 6.2H, Merlin Test POSITIVE, Blood Gas Ventilator Setting NO, Blood Gas Inspired Oxygen 3 L 07/05/18 13:05: Urine Color YELLOW, Urine Clarity CLEAR, Urine pH 6, Urine Specific [place] 1.015L, Urine Protein 2+H, Urine Glucose (UA) NEGATIVE, Urine Ketones NEGATIVE, Urine Nitrite NEGATIVE, Urine Bilirubin NEGATIVE, Urine Urobilinogen NORMAL, Urine Leukocyte Esterase 1+H, Urine RBC (Auto) NEGATIVE, Urine RBC NONE, Urine WBC 2-5, Urine Squamous Epithelial Cells 2-5, Urine Crystals PRESENTH, Urine Amorphous Sediment MOD FERNANDO URATESH, Urine Bacteria TRACE, Urine Casts PRESENT, Urine Hyaline Casts 2-5H, Urine Mucus SMALLH, Urine Culture Indicated YES 07/05/18 15:40: Lab Scanned Report Referred Lab Report 07/05/18 21:53: Lactic Acid Level 0.72, Troponin I 0.092 07/06/18 03:50: White Blood Count 15.9H, Red Blood Count 3.75L, Hemoglobin 11.0L, Hematocrit 35 , Mean Corpuscular Volume 93, Mean Corpuscular Hemoglobin 29, Mean Corpuscular Hemoglobin Concent 32, Red Cell Distribution Width 16.9H, Platelet Count 356, Mean Platelet Volume 10.2, Neutrophils (%) (Auto) 61, Lymphocytes (%) (Auto) 25 , Monocytes (%) (Auto) 11, Eosinophils (%) (Auto) 3, Basophils (%) (Auto) 0, Neutrophils # (Auto) 9.7H, Lymphocytes # (Auto) 4.0, Monocytes # (Auto) 1.8H, Eosinophils # (Auto) 0.4H, Basophils # (Auto) 0.1, Sodium Level 144, Potassium Level 3.8, Chloride Level 108H, Carbon Dioxide Level 26, Anion Gap 10, Blood Urea Nitrogen 11, Creatinine 0.83, Estimat Glomerular Filtration Rate > 60, BUN/ Creatinine Ratio 13, Glucose Level 106H, Calcium Level 8.4L, Corrected Calcium 9.2, Phosphorus Level 3.8, Magnesium Level 1.9, Total Bilirubin 0.3, Aspartate Amino Transf (AST/SGOT) 18, Alanine Aminotransferase (ALT/SGPT) 16, Alkaline Phosphatase 89, B-Type Natriuretic Peptide 146.5H, Total Protein 5.6L, Albumin 3.0L 07/07/18 05:00: White Blood Count 14.8H, Red Blood Count 3.66L, Hemoglobin 10.4L, Hematocrit 35 , Mean Corpuscular Volume 96, Mean Corpuscular Hemoglobin 28, Mean Corpuscular Hemoglobin Concent 30L, Red Cell Distribution Width 17.1H, Platelet Count 320, Mean Platelet Volume 10.1, Neutrophils (%) (Auto) 62, Lymphocytes (%) (Auto) 21 , Monocytes (%) (Auto) 9, Eosinophils (%) (Auto) 7, Basophils (%) (Auto) 1, Neutrophils # (Auto) 9.2H, Lymphocytes # (Auto) 3.0, Monocytes # (Auto) 1.4H, Eosinophils # (Auto) 1.1H, Basophils # (Auto) 0.1, Sodium Level 142, Potassium Level 4.8, Chloride Level 109H, Carbon Dioxide Level 25, Anion Gap 8, Blood Urea Nitrogen 10, Creatinine 0.81, Estimat Glomerular Filtration Rate > 60, BUN/ Creatinine Ratio 12, Glucose Level 101, Calcium Level 8.6, Corrected Calcium 9.5 , Phosphorus Level 3.5, Magnesium Level 1.7L, Total Bilirubin 0.3, Aspartate Amino Transf (AST/SGOT) 19, Alanine Aminotransferase (ALT/SGPT) 17, Alkaline Phosphatase 87, Total Protein 5.5L, Albumin 2.9L, Vancomycin Level Trough 22.7H 07/08/18 04:50: White Blood Count 14.2H, Red Blood Count 3.95L, Hemoglobin 11.4L, Hematocrit 37 , Mean Corpuscular Volume 93, Mean Corpuscular Hemoglobin 29, Mean Corpuscular Hemoglobin Concent 31L, Red Cell Distribution Width 16.6H, Platelet Count 417H, Mean Platelet Volume 9.8, Neutrophils (%) (Auto) 81H, Lymphocytes (%) (Auto) 15 , Monocytes (%) (Auto) 4, Eosinophils (%) (Auto) 0, Basophils (%) (Auto) 0, Neutrophils # (Auto) 11.5H, Lymphocytes # (Auto) 2.1, Monocytes # (Auto) 0.6, Eosinophils # (Auto) 0.0, Basophils # (Auto) 0.0, Sodium Level 142, Potassium Level 4.5, Chloride Level 105, Carbon Dioxide Level 27, Anion Gap 10, Blood Urea Nitrogen 10, Creatinine 0.83, Estimat Glomerular Filtration Rate > 60, BUN/ Creatinine Ratio 12, Glucose Level 167H, Calcium Level 9.2, Corrected Calcium 9.8, Phosphorus Level 3.4, Magnesium Level 2.0, Total Bilirubin 0.3, Aspartate Amino Transf (AST/SGOT) 17, Alanine Aminotransferase (ALT/SGPT) 18, Alkaline Phosphatase 98, Total Protein 6.3L, Albumin 3.3 07/08/18 17:19: Vancomycin Level Trough 19.1 07/09/18 04:20: White Blood Count 19.4H, Red Blood Count 4.27L, Hemoglobin 12.1, Hematocrit 39, Mean Corpuscular Volume 92, Mean Corpuscular Hemoglobin 28, Mean Corpuscular Hemoglobin Concent 31L, Red Cell Distribution Width 16.6H, Platelet Count 452H, Mean Platelet Volume 10.0, Neutrophils (%) (Auto) 62, Lymphocytes (%) (Auto) 28 , Monocytes (%) (Auto) 9, Eosinophils (%) (Auto) 1, Basophils (%) (Auto) 0, Neutrophils # (Auto) 12.0H, Lymphocytes # (Auto) 5.5H, Monocytes # (Auto) 1.7H, Eosinophils # (Auto) 0.2, Basophils # (Auto) 0.1, Sodium Level 145, Potassium Level 3.7, Chloride Level 103, Carbon Dioxide Level 28, Anion Gap 14, Blood Urea Nitrogen 15, Creatinine 0.91, Estimat Glomerular Filtration Rate > 60, BUN/ Creatinine Ratio 16, Glucose Level 113H, Calcium Level 9.6, Corrected Calcium 9.9, Phosphorus Level 3.8, Magnesium Level 2.2, Total Bilirubin 0.4, Aspartate Amino Transf (AST/SGOT) 17, Alanine Aminotransferase (ALT/SGPT) 18, Alkaline Phosphatase 105, B-Type Natriuretic Peptide 209.4H, Total Protein 7.0, Albumin 3.6 07/09/18 10:57: Glucometer 158H 07/09/18 15:33: Glucometer 97 07/10/18 07:30: White Blood Count 16.3H, Red Blood Count 4.62, Hemoglobin 13.0, Hematocrit 42, Mean Corpuscular Volume 92, Mean Corpuscular Hemoglobin 28, Mean Corpuscular Hemoglobin Concent 31L, Red Cell Distribution Width 16.6H, Platelet Count 465H, Mean Platelet Volume 9.5, Neutrophils (%) (Auto) 56, Lymphocytes (%) (Auto) 27, Monocytes (%) (Auto) 9, Eosinophils (%) (Auto) 6, Basophils (%) (Auto) 1, Neutrophils # (Auto) 9.2H, Lymphocytes # (Auto) 4.4H, Monocytes # (Auto) 1.5H, Eosinophils # (Auto) 1.0H, Basophils # (Auto) 0.1, Sodium Level 144, Potassium Level 4.0, Chloride Level 101, Carbon Dioxide Level 30, Anion Gap 13, Blood Urea Nitrogen 14, Creatinine 0.97, Estimat Glomerular Filtration Rate 59, BUN/ Creatinine Ratio 14, Glucose Level 99, Calcium Level 9.8, Corrected Calcium 10.0 , Phosphorus Level 5.1H, Magnesium Level 2.3, Total Bilirubin 0.3, Aspartate Amino Transf (AST/SGOT) 15, Alanine Aminotransferase (ALT/SGPT) 17, Alkaline Phosphatase 96, Total Protein 7.1, Albumin 3.7 07/11/18 04:01: White Blood Count 17.5H, Red Blood Count 4.34L, Hemoglobin 12.3, Hematocrit 40, Mean Corpuscular Volume 93, Mean Corpuscular Hemoglobin 28, Mean Corpuscular Hemoglobin Concent 31L, Red Cell Distribution Width 16.6H, Platelet Count 425H, Mean Platelet Volume 9.6, Neutrophils (%) (Auto) 61, Lymphocytes (%) (Auto) 25, Monocytes (%) (Auto) 8, Eosinophils (%) (Auto) 6, Basophils (%) (Auto) 1, Neutrophils # (Auto) 10.6H, Lymphocytes # (Auto) 4.5H, Monocytes # (Auto) 1.4H, Eosinophils # (Auto) 1.0H, Basophils # (Auto) 0.1, Sodium Level 145, Potassium Level 3.6, Chloride Level 105, Carbon Dioxide Level 31, Anion Gap 9, Blood Urea Nitrogen 18, Creatinine 0.89, Estimat Glomerular Filtration Rate > 60, BUN/ Creatinine Ratio 20, Glucose Level 99, Calcium Level 8.9, Corrected Calcium 9.5 , Phosphorus Level 3.9, Magnesium Level 2.5H, Total Bilirubin 0.2, Aspartate Amino Transf (AST/SGOT) 19, Alanine Aminotransferase (ALT/SGPT) 18, Alkaline Phosphatase 79, Total Protein 6.4, Albumin 3.2, Neutrophils % (Manual) 68, Lymphocytes % (Manual) 19, Monocytes % (Manual) 8, Eosinophils % (Manual) 5 07/12/18 03:35: White Blood Count 18.6H, Red Blood Count 4.12L, Hemoglobin 11.8, Hematocrit 39, Mean Corpuscular Volume 93, Mean Corpuscular Hemoglobin 29, Mean Corpuscular Hemoglobin Concent 31L, Red Cell Distribution Width 16.7H, Platelet Count 413H, Mean Platelet Volume 9.8, Neutrophils (%) (Auto) 68, Lymphocytes (%) (Auto) 19, Monocytes (%) (Auto) 8, Eosinophils (%) (Auto) 5, Basophils (%) (Auto) 0, Neutrophils # (Auto) 12.6H, Lymphocytes # (Auto) 3.5, Monocytes # (Auto) 1.5H, Eosinophils # (Auto) 1.0H, Basophils # (Auto) 0.1, Sodium Level 142, Potassium Level 3.9, Chloride Level 103, Carbon Dioxide Level 28, Anion Gap 11, Blood Urea Nitrogen 23H, Creatinine 1.14, Estimat Glomerular Filtration Rate 49, BUN/ Creatinine Ratio 20, Glucose Level 104, Calcium Level 9.0, Corrected Calcium 9.6 , Phosphorus Level 3.5, Magnesium Level 2.1, Total Bilirubin 0.2, Aspartate Amino Transf (AST/SGOT) 17, Alanine Aminotransferase (ALT/SGPT) 20, Alkaline Phosphatase 83, Total Protein 6.3L, Albumin 3.3, B-Type Natriuretic Peptide 17.5 07/12/18 08:50: Lactic Acid Level 1.29 07/12/18 21:35: Urine Color YELLOW, Urine Clarity CLEAR, Urine pH 6.5, Urine Specific [place] 1.015L, Urine Protein NEGATIVE, Urine Glucose (UA) NEGATIVE, Urine Ketones NEGATIVE, Urine Nitrite NEGATIVE, Urine Bilirubin NEGATIVE, Urine Urobilinogen NORMAL, Urine Leukocyte Esterase 2+H, Urine RBC (Auto) NEGATIVE, Urine RBC NONE , Urine WBC 5-10H, Urine Squamous Epithelial Cells 2-5, Urine Crystals NONE, Urine Bacteria NONE, Urine Casts NONE, Urine Mucus NEGATIVE, Urine Yeast SMALL, Urine Culture Indicated YES 07/13/18 04:05: White Blood Count 17.5H, Red Blood Count 4.78, Hemoglobin 13.7, Hematocrit 44, Mean Corpuscular Volume 92, Mean Corpuscular Hemoglobin 29, Mean Corpuscular Hemoglobin Concent 31L, Red Cell Distribution Width 16.9H, Platelet Count 410H, Mean Platelet Volume 10.1, Neutrophils (%) (Auto) 66, Lymphocytes (%) (Auto) 19 , Monocytes (%) (Auto) 10, Eosinophils (%) (Auto) 5, Basophils (%) (Auto) 0, Neutrophils # (Auto) 11.4H, Lymphocytes # (Auto) 3.3, Monocytes # (Auto) 1.8H, Eosinophils # (Auto) 0.9H, Basophils # (Auto) 0.1, Sodium Level 142, Potassium Level 3.7, Chloride Level 102, Carbon Dioxide Level 30, Anion Gap 10, Blood Urea Nitrogen 13, Creatinine 0.87, Estimat Glomerular Filtration Rate > 60, BUN/ Creatinine Ratio 15, Glucose Level 94, Calcium Level 9.7, Corrected Calcium 9.9 , Phosphorus Level 3.2, Magnesium Level 2.2, Total Bilirubin 0.3, Aspartate Amino Transf (AST/SGOT) 19, Alanine Aminotransferase (ALT/SGPT) 20, Alkaline Phosphatase 86, Total Protein 7.3, Albumin 3.8 07/14/18 05:56: White Blood Count 13.7H, Red Blood Count 4.12L, Hemoglobin 11.7, Hematocrit 38, Mean Corpuscular Volume 92, Mean Corpuscular Hemoglobin 28, Mean Corpuscular Hemoglobin Concent 31L, Red Cell Distribution Width 16.7H, Platelet Count 402H, Mean Platelet Volume 9.9, Neutrophils (%) (Auto) 66, Lymphocytes (%) (Auto) 21, Monocytes (%) (Auto) 9, Eosinophils (%) (Auto) 4, Basophils (%) (Auto) 0, Neutrophils # (Auto) 9.1H, Lymphocytes # (Auto) 2.8, Monocytes # (Auto) 1.2H, Eosinophils # (Auto) 0.6H, Basophils # (Auto) 0.0, Sodium Level 143, Potassium Level 3.6, Chloride Level 105, Carbon Dioxide Level 27, Anion Gap 11, Blood Urea Nitrogen 13, Creatinine 0.78, Estimat Glomerular Filtration Rate > 60, BUN/ Creatinine Ratio 17, Glucose Level 98, Calcium Level 8.9, Corrected Calcium 9.5 , Phosphorus Level 3.4, Magnesium Level 2.3, Total Bilirubin 0.2, Aspartate Amino Transf (AST/SGOT) 13, Alanine Aminotransferase (ALT/SGPT) 15, Alkaline Phosphatase 89, Total Protein 6.2L, Albumin 3.3 07/15/18 04:45: White Blood Count 12.8H, Red Blood Count 4.21L, Hemoglobin 11.8, Hematocrit 39, Mean Corpuscular Volume 91, Mean Corpuscular Hemoglobin 28, Mean Corpuscular Hemoglobin Concent 31L, Red Cell Distribution Width 16.3H, Platelet Count 398, Mean Platelet Volume 10.0, Neutrophils (%) (Auto) 58, Lymphocytes (%) (Auto) 28 , Monocytes (%) (Auto) 9, Eosinophils (%) (Auto) 4, Basophils (%) (Auto) 0, Neutrophils # (Auto) 7.5, Lymphocytes # (Auto) 3.6, Monocytes # (Auto) 1.2H, Eosinophils # (Auto) 0.6H, Basophils # (Auto) 0.0, Sodium Level 145, Potassium Level 3.6, Chloride Level 106, Carbon Dioxide Level 27, Anion Gap 12, Blood Urea Nitrogen 12, Creatinine 0.72, Estimat Glomerular Filtration Rate > 60, BUN/ Creatinine Ratio 17, Glucose Level 98, Calcium Level 9.2, Corrected Calcium 9.7 , Phosphorus Level 3.5, Magnesium Level 1.9, Total Bilirubin 0.3, Aspartate Amino Transf (AST/SGOT) 15, Alanine Aminotransferase (ALT/SGPT) 16, Alkaline Phosphatase 95, Total Protein 6.3L, Albumin 3.4 07/16/18 07:45: White Blood Count 10.4, Red Blood Count 4.38, Hemoglobin 12.2, Hematocrit 40, Mean Corpuscular Volume 91, Mean Corpuscular Hemoglobin 28, Mean Corpuscular Hemoglobin Concent 31L, Red Cell Distribution Width 16.9H, Platelet Count 407H, Mean Platelet Volume 10.1, Neutrophils (%) (Auto) 61, Lymphocytes (%) (Auto) 22 , Monocytes (%) (Auto) 11, Eosinophils (%) (Auto) 6, Basophils (%) (Auto) 1, Neutrophils # (Auto) 6.4, Lymphocytes # (Auto) 2.3, Monocytes # (Auto) 1.1H, Eosinophils # (Auto) 0.6H, Basophils # (Auto) 0.1, Sodium Level 145, Potassium Level 3.9, Chloride Level 107, Carbon Dioxide Level 26, Anion Gap 12, Blood Urea Nitrogen 13, Creatinine 0.72, Estimat Glomerular Filtration Rate > 60, BUN/ Creatinine Ratio 18, Glucose Level 94, Calcium Level 9.2, Corrected Calcium 9.7 , Phosphorus Level 4.0, Magnesium Level 1.9, Total Bilirubin 0.2, Aspartate Amino Transf (AST/SGOT) 19, Alanine Aminotransferase (ALT/SGPT) 16, Alkaline Phosphatase 102, Total Protein 6.4, Albumin 3.4 07/18/18 04:00: White Blood Count 11.4H, Red Blood Count 4.25L, Hemoglobin 11.9, Hematocrit 38, Mean Corpuscular Volume 89, Mean Corpuscular Hemoglobin 28, Mean Corpuscular Hemoglobin Concent 31L, Red Cell Distribution Width 16.2H, Platelet Count 477H, Mean Platelet Volume 10.4, Sodium Level 141, Potassium Level 4.3, Chloride Level 103, Carbon Dioxide Level 28, Anion Gap 10, Blood Urea Nitrogen 17, Creatinine 0.75, Estimat Glomerular Filtration Rate > 60, BUN/Creatinine Ratio 23, Glucose Level 124H, Calcium Level 9.8 07/18/18 08:07: Glucometer 91 07/19/18 04:19: White Blood Count 18.7H, Red Blood Count 4.21L, Hemoglobin 11.8, Hematocrit 39, Mean Corpuscular Volume 92, Mean Corpuscular Hemoglobin 28, Mean Corpuscular Hemoglobin Concent 31L, Red Cell Distribution Width 16.6H, Platelet Count 463H, Mean Platelet Volume 10.5H, Neutrophils (%) (Auto) 61, Lymphocytes (%) (Auto) 30 , Monocytes (%) (Auto) 7, Eosinophils (%) (Auto) 1, Basophils (%) (Auto) 0, Neutrophils # (Auto) 11.4H, Lymphocytes # (Auto) 5.6H, Monocytes # (Auto) 1.4H, Eosinophils # (Auto) 0.3, Basophils # (Auto) 0.1, Sodium Level 143, Potassium Level 4.1, Chloride Level 104, Carbon Dioxide Level 27, Anion Gap 12, Blood Urea Nitrogen 22H, Creatinine 0.79, Estimat Glomerular Filtration Rate > 60, BUN /Creatinine Ratio 28, Glucose Level 95, Calcium Level 9.4, Neutrophils % (Manual ) 48, Lymphocytes % (Manual) 35, Monocytes % (Manual) 7, Eosinophils % (Manual) 2, Atypical Lymphocytes 7, Blood Morphology Comment NORMAL 07/20/18 06:01: White Blood Count 14.6H, Red Blood Count 4.00L, Hemoglobin 11.4L, Hematocrit 37 , Mean Corpuscular Volume 92, Mean Corpuscular Hemoglobin 29, Mean Corpuscular Hemoglobin Concent 31L, Red Cell Distribution Width 16.7H, Platelet Count 434H, Mean Platelet Volume 10.1, Neutrophils (%) (Auto) 63, Lymphocytes (%) (Auto) 23 , Monocytes (%) (Auto) 9, Eosinophils (%) (Auto) 5, Basophils (%) (Auto) 1, Neutrophils # (Auto) 9.1H, Lymphocytes # (Auto) 3.3, Monocytes # (Auto) 1.4H, Eosinophils # (Auto) 0.7H, Basophils # (Auto) 0.1, Sodium Level 142, Potassium Level 4.0, Chloride Level 102, Carbon Dioxide Level 28, Anion Gap 12, Blood Urea Nitrogen 18, Creatinine 0.73, Estimat Glomerular Filtration Rate > 60, BUN/ Creatinine Ratio 25, Glucose Level 92, Calcium Level 9.2 07/22/18 09:30: White Blood Count 12.8H, Red Blood Count 4.31L, Hemoglobin 12.4, Hematocrit 39, Mean Corpuscular Volume 91, Mean Corpuscular Hemoglobin 29, Mean Corpuscular Hemoglobin Concent 32, Red Cell Distribution Width 16.8H, Platelet Count 433H, Mean Platelet Volume 10.4, Sodium Level 142, Potassium Level 4.2, Chloride Level 103, Carbon Dioxide Level 25, Anion Gap 14, Blood Urea Nitrogen 14, Creatinine 0.83, Estimat Glomerular Filtration Rate > 60, BUN/Creatinine Ratio 17, Glucose Level 146H, Calcium Level 9.1 07/23/18 07:15: White Blood Count 11.3H, Red Blood Count 4.42, Hemoglobin 12.2, Hematocrit 41, Mean Corpuscular Volume 92, Mean Corpuscular Hemoglobin 28, Mean Corpuscular Hemoglobin Concent 30L, Red Cell Distribution Width 16.5H, Platelet Count 378, Mean Platelet Volume 10.4, Sodium Level 142, Potassium Level 4.4, Chloride Level 104, Carbon Dioxide Level 29, Anion Gap 9, Blood Urea Nitrogen 12, Creatinine 0.72, Estimat Glomerular Filtration Rate > 60, BUN/Creatinine Ratio 17, Glucose Level 90, Calcium Level 9.4 Microbiology 07/12/18 Blood Culture - Final, Complete No growth 07/18/18 Gram Stain - Final, Resulted 07/18/18 Bronchial Culture - Final, Resulted Staphylococcus epidermidis YEAST 07/18/18 Fungal Culture 1 - Preliminary, Resulted No growth 07/12/18 Urine Culture - Final, Complete NO GROWTH Laboratory Tests 07/05/18 12:27 07/06/18 03:50 07/07/18 05:00 07/08/18 04:50 07/09/18 04:20 07/10/18 07:30 07/11/18 04:01 07/12/18 03:35 07/13/18 04:05 07/14/18 05:56 07/15/18 04:45 07/16/18 07:45 07/18/18 04:00 07/19/18 04:19 07/20/18 06:01 07/22/18 09:30 07/23/18 07:15 Pending Labs Microbiology Date/Time Source Procedure Growth Status 07/12/18 09:00 Peripheral Rt Hand Blood Culture - Final No growth Complete 07/12/18 08:50 Peripheral Lt Hand Blood Culture - Final No growth Complete 07/05/18 21:53 Peripheral Lt Hand Blood Culture - Final No growth Complete 07/05/18 13:43 Peripheral Lt Hand Blood Culture - Final No growth Complete 07/18/18 10:05 Bronch Brushing Mainstem, Rt Gram Stain - Final Resulted 07/18/18 10:05 Bronchial Culture - Final Staphylococcus epidermidis YEAST Resulted 07/18/18 10:05 Bronch Brushing Mainstem, Rt Fungal Culture 1 - Preliminary No growth Resulted 07/18/18 10:04 Bronch Brushing Right Middle Lobe Gram Stain - Final Resulted 07/18/18 10:04 Bronch Brushing Right Middle Lobe Bronchial Culture - Final No growth Resulted 07/18/18 10:04 Fungal Culture 1 - Preliminary Trice species Resulted 07/18/18 10:03 Bronchial Lavage (Bal) Right Middle Lobe Mycobacterial Culture - Preliminary Resulted 07/18/18 10:02 Bronchial Lavage (Bal) Right Middle Lobe Gram Stain - Final Resulted 07/18/18 10:02 Bronchial Culture - Final Mixed Bacterial Anna Resulted 07/18/18 10:02 Fungal Culture 1 - Preliminary Trice species Resulted 07/18/18 10:01 Bronch Washings Right Middle Lobe Mycobacterial Culture - Preliminary Resulted 07/18/18 10:00 Bronch Washings Right Middle Lobe Gram Stain - Final Resulted 07/18/18 10:00 Bronchial Culture - Final Staphylococcus epidermidis YEAST Resulted 07/18/18 10:00 Fungal Culture 1 - Preliminary Trice albicans Resulted 07/05/18 17:10 Nasal MRSA Screen - Final MRSA not isolated Complete 07/05/18 13:43 Nasopharynx Influenza Types A,B Antigen (TRAY) - Final Complete 07/12/18 21:35 Urine Clean Catch Urine Culture - Final NO GROWTH Complete 07/05/18 13:05 Urine Straight Cath, In/Out Urine Culture - Final NO GROWTH Complete Laboratory Tests 07/05/18 12:27: White Blood Count 19.9, Red Blood Count 4.77, Hemoglobin 13.5, Hematocrit 44, Mean Corpuscular Volume 92, Mean Corpuscular Hemoglobin 28, Mean Corpuscular Hemoglobin Concent 31, Red Cell Distribution Width 16.4, Platelet Count 378, Mean Platelet Volume 10.3, Neutrophils (%) (Auto) 83, Lymphocytes (%) (Auto) 9, Monocytes (%) (Auto) 8, Eosinophils (%) (Auto) 0, Basophils (%) (Auto) 0, Neutrophils # (Auto) 16.5, Lymphocytes # (Auto) 1.8, Monocytes # (Auto) 1.5, Eosinophils # (Auto) 0.0, Basophils # (Auto) 0.1, Neutrophils % (Manual) 72, Lymphocytes % (Manual) 11, Monocytes % (Manual) 10, Eosinophils % (Manual) 0, Basophils % (Manual) 0, Band Neutrophils 7, Toxic Granulation 1+, Blood Morphology Comment NORMAL, Prothrombin Time 12.9, INR Comment 1.0, Activated Partial Thromboplast Time 35, Sodium Level 143, Potassium Level 4.2, Chloride Level 101, Carbon Dioxide Level 29, Anion Gap 13, Blood Urea Nitrogen 14, Creatinine 0.91, Estimat Glomerular Filtration Rate > 60, BUN/Creatinine Ratio 15, Glucose Level 112, Calcium Level 9.9, Corrected Calcium 10.0, Total Bilirubin 0.4, Aspartate Amino Transf (AST/SGOT) 21, Alanine Aminotransferase ( ALT/SGPT) 18, Alkaline Phosphatase 115, Troponin I 0.114, Total Protein 7.4, Albumin 3.9 07/05/18 12:35: Blood Gas Puncture Site RIGHT RADIAL, Blood Gas Patient Temperature 98, Arterial Blood pH 7.37, Arterial Blood Partial Pressure CO2 55, Arterial Blood Partial Pressure O2 72, Arterial Blood HCO3 31, Arterial Blood Total CO2 33.1, Arterial Blood Oxygen Saturation 95, Arterial Blood Base Excess 6.2, Merlin Test POSITIVE, Blood Gas Ventilator Setting NO, Blood Gas Inspired Oxygen 3 L 07/05/18 13:05: Urine Color YELLOW, Urine Clarity CLEAR, Urine pH 6, Urine Specific [place] 1.015, Urine Protein 2+, Urine Glucose (UA) NEGATIVE, Urine Ketones NEGATIVE, Urine Nitrite NEGATIVE, Urine Bilirubin NEGATIVE, Urine Urobilinogen NORMAL, Urine Leukocyte Esterase 1+, Urine RBC (Auto) NEGATIVE, Urine RBC NONE, Urine WBC 2-5, Urine Squamous Epithelial Cells 2-5, Urine Crystals PRESENT, Urine Amorphous Sediment MOD FERNANDO URATES, Urine Bacteria TRACE, Urine Casts PRESENT, Urine Hyaline Casts 2-5, Urine Mucus SMALL, Urine Culture Indicated YES 07/05/18 15:40: Lab Scanned Report Referred Lab Report 07/05/18 21:53: Lactic Acid Level 0.72, Troponin I 0.092 07/06/18 03:50: White Blood Count 15.9, Red Blood Count 3.75, Hemoglobin 11.0, Hematocrit 35, Mean Corpuscular Volume 93, Mean Corpuscular Hemoglobin 29, Mean Corpuscular Hemoglobin Concent 32, Red Cell Distribution Width 16.9, Platelet Count 356, Mean Platelet Volume 10.2, Neutrophils (%) (Auto) 61, Lymphocytes (%) (Auto) 25 , Monocytes (%) (Auto) 11, Eosinophils (%) (Auto) 3, Basophils (%) (Auto) 0, Neutrophils # (Auto) 9.7, Lymphocytes # (Auto) 4.0, Monocytes # (Auto) 1.8, Eosinophils # (Auto) 0.4, Basophils # (Auto) 0.1, Sodium Level 144, Potassium Level 3.8, Chloride Level 108, Carbon Dioxide Level 26, Anion Gap 10, Blood Urea Nitrogen 11, Creatinine 0.83, Estimat Glomerular Filtration Rate > 60, BUN/ Creatinine Ratio 13, Glucose Level 106, Calcium Level 8.4, Corrected Calcium 9.2 , Phosphorus Level 3.8, Magnesium Level 1.9, Total Bilirubin 0.3, Aspartate Amino Transf (AST/SGOT) 18, Alanine Aminotransferase (ALT/SGPT) 16, Alkaline Phosphatase 89, B-Type Natriuretic Peptide 146.5, Total Protein 5.6, Albumin 3.0 07/07/18 05:00: White Blood Count 14.8, Red Blood Count 3.66, Hemoglobin 10.4, Hematocrit 35, Mean Corpuscular Volume 96, Mean Corpuscular Hemoglobin 28, Mean Corpuscular Hemoglobin Concent 30, Red Cell Distribution Width 17.1, Platelet Count 320, Mean Platelet Volume 10.1, Neutrophils (%) (Auto) 62, Lymphocytes (%) (Auto) 21 , Monocytes (%) (Auto) 9, Eosinophils (%) (Auto) 7, Basophils (%) (Auto) 1, Neutrophils # (Auto) 9.2, Lymphocytes # (Auto) 3.0, Monocytes # (Auto) 1.4, Eosinophils # (Auto) 1.1, Basophils # (Auto) 0.1, Sodium Level 142, Potassium Level 4.8, Chloride Level 109, Carbon Dioxide Level 25, Anion Gap 8, Blood Urea Nitrogen 10, Creatinine 0.81, Estimat Glomerular Filtration Rate > 60, BUN/ Creatinine Ratio 12, Glucose Level 101, Calcium Level 8.6, Corrected Calcium 9.5 , Phosphorus Level 3.5, Magnesium Level 1.7, Total Bilirubin 0.3, Aspartate Amino Transf (AST/SGOT) 19, Alanine Aminotransferase (ALT/SGPT) 17, Alkaline Phosphatase 87, Total Protein 5.5, Albumin 2.9, Vancomycin Level Trough 22.7 07/08/18 04:50: White Blood Count 14.2, Red Blood Count 3.95, Hemoglobin 11.4, Hematocrit 37, Mean Corpuscular Volume 93, Mean Corpuscular Hemoglobin 29, Mean Corpuscular Hemoglobin Concent 31, Red Cell Distribution Width 16.6, Platelet Count 417, Mean Platelet Volume 9.8, Neutrophils (%) (Auto) 81, Lymphocytes (%) (Auto) 15, Monocytes (%) (Auto) 4, Eosinophils (%) (Auto) 0, Basophils (%) (Auto) 0, Neutrophils # (Auto) 11.5, Lymphocytes # (Auto) 2.1, Monocytes # (Auto) 0.6, Eosinophils # (Auto) 0.0, Basophils # (Auto) 0.0, Sodium Level 142, Potassium Level 4.5, Chloride Level 105, Carbon Dioxide Level 27, Anion Gap 10, Blood Urea Nitrogen 10, Creatinine 0.83, Estimat Glomerular Filtration Rate > 60, BUN/ Creatinine Ratio 12, Glucose Level 167, Calcium Level 9.2, Corrected Calcium 9.8 , Phosphorus Level 3.4, Magnesium Level 2.0, Total Bilirubin 0.3, Aspartate Amino Transf (AST/SGOT) 17, Alanine Aminotransferase (ALT/SGPT) 18, Alkaline Phosphatase 98, Total Protein 6.3, Albumin 3.3 07/08/18 17:19: Vancomycin Level Trough 19.1 07/09/18 04:20: White Blood Count 19.4, Red Blood Count 4.27, Hemoglobin 12.1, Hematocrit 39, Mean Corpuscular Volume 92, Mean Corpuscular Hemoglobin 28, Mean Corpuscular Hemoglobin Concent 31, Red Cell Distribution Width 16.6, Platelet Count 452, Mean Platelet Volume 10.0, Neutrophils (%) (Auto) 62, Lymphocytes (%) (Auto) 28 , Monocytes (%) (Auto) 9, Eosinophils (%) (Auto) 1, Basophils (%) (Auto) 0, Neutrophils # (Auto) 12.0, Lymphocytes # (Auto) 5.5, Monocytes # (Auto) 1.7, Eosinophils # (Auto) 0.2, Basophils # (Auto) 0.1, Sodium Level 145, Potassium Level 3.7, Chloride Level 103, Carbon Dioxide Level 28, Anion Gap 14, Blood Urea Nitrogen 15, Creatinine 0.91, Estimat Glomerular Filtration Rate > 60, BUN/ Creatinine Ratio 16, Glucose Level 113, Calcium Level 9.6, Corrected Calcium 9.9 , Phosphorus Level 3.8, Magnesium Level 2.2, Total Bilirubin 0.4, Aspartate Amino Transf (AST/SGOT) 17, Alanine Aminotransferase (ALT/SGPT) 18, Alkaline Phosphatase 105, B-Type Natriuretic Peptide 209.4, Total Protein 7.0, Albumin 3.6 07/09/18 10:57: Glucometer 158 07/09/18 15:33: Glucometer 97 07/10/18 07:30: White Blood Count 16.3, Red Blood Count 4.62, Hemoglobin 13.0, Hematocrit 42, Mean Corpuscular Volume 92, Mean Corpuscular Hemoglobin 28, Mean Corpuscular Hemoglobin Concent 31, Red Cell Distribution Width 16.6, Platelet Count 465, Mean Platelet Volume 9.5, Neutrophils (%) (Auto) 56, Lymphocytes (%) (Auto) 27, Monocytes (%) (Auto) 9, Eosinophils (%) (Auto) 6, Basophils (%) (Auto) 1, Neutrophils # (Auto) 9.2, Lymphocytes # (Auto) 4.4, Monocytes # (Auto) 1.5, Eosinophils # (Auto) 1.0, Basophils # (Auto) 0.1, Sodium Level 144, Potassium Level 4.0, Chloride Level 101, Carbon Dioxide Level 30, Anion Gap 13, Blood Urea Nitrogen 14, Creatinine 0.97, Estimat Glomerular Filtration Rate 59, BUN/ Creatinine Ratio 14, Glucose Level 99, Calcium Level 9.8, Corrected Calcium 10.0 , Phosphorus Level 5.1, Magnesium Level 2.3, Total Bilirubin 0.3, Aspartate Amino Transf (AST/SGOT) 15, Alanine Aminotransferase (ALT/SGPT) 17, Alkaline Phosphatase 96, Total Protein 7.1, Albumin 3.7 07/11/18 04:01: White Blood Count 17.5, Red Blood Count 4.34, Hemoglobin 12.3, Hematocrit 40, Mean Corpuscular Volume 93, Mean Corpuscular Hemoglobin 28, Mean Corpuscular Hemoglobin Concent 31, Red Cell Distribution Width 16.6, Platelet Count 425, Mean Platelet Volume 9.6, Neutrophils (%) (Auto) 61, Lymphocytes (%) (Auto) 25, Monocytes (%) (Auto) 8, Eosinophils (%) (Auto) 6, Basophils (%) (Auto) 1, Neutrophils # (Auto) 10.6, Lymphocytes # (Auto) 4.5, Monocytes # (Auto) 1.4, Eosinophils # (Auto) 1.0, Basophils # (Auto) 0.1, Sodium Level 145, Potassium Level 3.6, Chloride Level 105, Carbon Dioxide Level 31, Anion Gap 9, Blood Urea Nitrogen 18, Creatinine 0.89, Estimat Glomerular Filtration Rate > 60, BUN/ Creatinine Ratio 20, Glucose Level 99, Calcium Level 8.9, Corrected Calcium 9.5 , Phosphorus Level 3.9, Magnesium Level 2.5, Total Bilirubin 0.2, Aspartate Amino Transf (AST/SGOT) 19, Alanine Aminotransferase (ALT/SGPT) 18, Alkaline Phosphatase 79, Total Protein 6.4, Albumin 3.2, Neutrophils % (Manual) 68, Lymphocytes % (Manual) 19, Monocytes % (Manual) 8, Eosinophils % (Manual) 5 07/12/18 03:35: White Blood Count 18.6, Red Blood Count 4.12, Hemoglobin 11.8, Hematocrit 39, Mean Corpuscular Volume 93, Mean Corpuscular Hemoglobin 29, Mean Corpuscular Hemoglobin Concent 31, Red Cell Distribution Width 16.7, Platelet Count 413, Mean Platelet Volume 9.8, Neutrophils (%) (Auto) 68, Lymphocytes (%) (Auto) 19, Monocytes (%) (Auto) 8, Eosinophils (%) (Auto) 5, Basophils (%) (Auto) 0, Neutrophils # (Auto) 12.6, Lymphocytes # (Auto) 3.5, Monocytes # (Auto) 1.5, Eosinophils # (Auto) 1.0, Basophils # (Auto) 0.1, Sodium Level 142, Potassium Level 3.9, Chloride Level 103, Carbon Dioxide Level 28, Anion Gap 11, Blood Urea Nitrogen 23, Creatinine 1.14, Estimat Glomerular Filtration Rate 49, BUN/ Creatinine Ratio 20, Glucose Level 104, Calcium Level 9.0, Corrected Calcium 9.6 , Phosphorus Level 3.5, Magnesium Level 2.1, Total Bilirubin 0.2, Aspartate Amino Transf (AST/SGOT) 17, Alanine Aminotransferase (ALT/SGPT) 20, Alkaline Phosphatase 83, Total Protein 6.3, Albumin 3.3, B-Type Natriuretic Peptide 17.5 07/12/18 08:50: Lactic Acid Level 1.29 07/12/18 21:35: Urine Color YELLOW, Urine Clarity CLEAR, Urine pH 6.5, Urine Specific [place] 1.015, Urine Protein NEGATIVE, Urine Glucose (UA) NEGATIVE, Urine Ketones NEGATIVE, Urine Nitrite NEGATIVE, Urine Bilirubin NEGATIVE, Urine Urobilinogen NORMAL, Urine Leukocyte Esterase 2+, Urine RBC (Auto) NEGATIVE, Urine RBC NONE, Urine WBC 5-10, Urine Squamous Epithelial Cells 2-5, Urine Crystals NONE, Urine Bacteria NONE, Urine Casts NONE, Urine Mucus NEGATIVE, Urine Yeast SMALL, Urine Culture Indicated YES 07/13/18 04:05: White Blood Count 17.5, Red Blood Count 4.78, Hemoglobin 13.7, Hematocrit 44, Mean Corpuscular Volume 92, Mean Corpuscular Hemoglobin 29, Mean Corpuscular Hemoglobin Concent 31, Red Cell Distribution Width 16.9, Platelet Count 410, Mean Platelet Volume 10.1, Neutrophils (%) (Auto) 66, Lymphocytes (%) (Auto) 19 , Monocytes (%) (Auto) 10, Eosinophils (%) (Auto) 5, Basophils (%) (Auto) 0, Neutrophils # (Auto) 11.4, Lymphocytes # (Auto) 3.3, Monocytes # (Auto) 1.8, Eosinophils # (Auto) 0.9, Basophils # (Auto) 0.1, Sodium Level 142, Potassium Level 3.7, Chloride Level 102, Carbon Dioxide Level 30, Anion Gap 10, Blood Urea Nitrogen 13, Creatinine 0.87, Estimat Glomerular Filtration Rate > 60, BUN/ Creatinine Ratio 15, Glucose Level 94, Calcium Level 9.7, Corrected Calcium 9.9 , Phosphorus Level 3.2, Magnesium Level 2.2, Total Bilirubin 0.3, Aspartate Amino Transf (AST/SGOT) 19, Alanine Aminotransferase (ALT/SGPT) 20, Alkaline Phosphatase 86, Total Protein 7.3, Albumin 3.8 07/14/18 05:56: White Blood Count 13.7, Red Blood Count 4.12, Hemoglobin 11.7, Hematocrit 38, Mean Corpuscular Volume 92, Mean Corpuscular Hemoglobin 28, Mean Corpuscular Hemoglobin Concent 31, Red Cell Distribution Width 16.7, Platelet Count 402, Mean Platelet Volume 9.9, Neutrophils (%) (Auto) 66, Lymphocytes (%) (Auto) 21, Monocytes (%) (Auto) 9, Eosinophils (%) (Auto) 4, Basophils (%) (Auto) 0, Neutrophils # (Auto) 9.1, Lymphocytes # (Auto) 2.8, Monocytes # (Auto) 1.2, Eosinophils # (Auto) 0.6, Basophils # (Auto) 0.0, Sodium Level 143, Potassium Level 3.6, Chloride Level 105, Carbon Dioxide Level 27, Anion Gap 11, Blood Urea Nitrogen 13, Creatinine 0.78, Estimat Glomerular Filtration Rate > 60, BUN/ Creatinine Ratio 17, Glucose Level 98, Calcium Level 8.9, Corrected Calcium 9.5 , Phosphorus Level 3.4, Magnesium Level 2.3, Total Bilirubin 0.2, Aspartate Amino Transf (AST/SGOT) 13, Alanine Aminotransferase (ALT/SGPT) 15, Alkaline Phosphatase 89, Total Protein 6.2, Albumin 3.3 07/15/18 04:45: White Blood Count 12.8, Red Blood Count 4.21, Hemoglobin 11.8, Hematocrit 39, Mean Corpuscular Volume 91, Mean Corpuscular Hemoglobin 28, Mean Corpuscular Hemoglobin Concent 31, Red Cell Distribution Width 16.3, Platelet Count 398, Mean Platelet Volume 10.0, Neutrophils (%) (Auto) 58, Lymphocytes (%) (Auto) 28 , Monocytes (%) (Auto) 9, Eosinophils (%) (Auto) 4, Basophils (%) (Auto) 0, Neutrophils # (Auto) 7.5, Lymphocytes # (Auto) 3.6, Monocytes # (Auto) 1.2, Eosinophils # (Auto) 0.6, Basophils # (Auto) 0.0, Sodium Level 145, Potassium Level 3.6, Chloride Level 106, Carbon Dioxide Level 27, Anion Gap 12, Blood Urea Nitrogen 12, Creatinine 0.72, Estimat Glomerular Filtration Rate > 60, BUN/ Creatinine Ratio 17, Glucose Level 98, Calcium Level 9.2, Corrected Calcium 9.7 , Phosphorus Level 3.5, Magnesium Level 1.9, Total Bilirubin 0.3, Aspartate Amino Transf (AST/SGOT) 15, Alanine Aminotransferase (ALT/SGPT) 16, Alkaline Phosphatase 95, Total Protein 6.3, Albumin 3.4 07/16/18 07:45: White Blood Count 10.4, Red Blood Count 4.38, Hemoglobin 12.2, Hematocrit 40, Mean Corpuscular Volume 91, Mean Corpuscular Hemoglobin 28, Mean Corpuscular Hemoglobin Concent 31, Red Cell Distribution Width 16.9, Platelet Count 407, Mean Platelet Volume 10.1, Neutrophils (%) (Auto) 61, Lymphocytes (%) (Auto) 22 , Monocytes (%) (Auto) 11, Eosinophils (%) (Auto) 6, Basophils (%) (Auto) 1, Neutrophils # (Auto) 6.4, Lymphocytes # (Auto) 2.3, Monocytes # (Auto) 1.1, Eosinophils # (Auto) 0.6, Basophils # (Auto) 0.1, Sodium Level 145, Potassium Level 3.9, Chloride Level 107, Carbon Dioxide Level 26, Anion Gap 12, Blood Urea Nitrogen 13, Creatinine 0.72, Estimat Glomerular Filtration Rate > 60, BUN/ Creatinine Ratio 18, Glucose Level 94, Calcium Level 9.2, Corrected Calcium 9.7 , Phosphorus Level 4.0, Magnesium Level 1.9, Total Bilirubin 0.2, Aspartate Amino Transf (AST/SGOT) 19, Alanine Aminotransferase (ALT/SGPT) 16, Alkaline Phosphatase 102, Total Protein 6.4, Albumin 3.4 07/18/18 04:00: White Blood Count 11.4, Red Blood Count 4.25, Hemoglobin 11.9, Hematocrit 38, Mean Corpuscular Volume 89, Mean Corpuscular Hemoglobin 28, Mean Corpuscular Hemoglobin Concent 31, Red Cell Distribution Width 16.2, Platelet Count 477, Mean Platelet Volume 10.4, Sodium Level 141, Potassium Level 4.3, Chloride Level 103, Carbon Dioxide Level 28, Anion Gap 10, Blood Urea Nitrogen 17, Creatinine 0.75, Estimat Glomerular Filtration Rate > 60, BUN/Creatinine Ratio 23, Glucose Level 124, Calcium Level 9.8 07/18/18 08:07: Glucometer 91 07/19/18 04:19: White Blood Count 18.7, Red Blood Count 4.21, Hemoglobin 11.8, Hematocrit 39, Mean Corpuscular Volume 92, Mean Corpuscular Hemoglobin 28, Mean Corpuscular Hemoglobin Concent 31, Red Cell Distribution Width 16.6, Platelet Count 463, Mean Platelet Volume 10.5, Neutrophils (%) (Auto) 61, Lymphocytes (%) (Auto) 30 , Monocytes (%) (Auto) 7, Eosinophils (%) (Auto) 1, Basophils (%) (Auto) 0, Neutrophils # (Auto) 11.4, Lymphocytes # (Auto) 5.6, Monocytes # (Auto) 1.4, Eosinophils # (Auto) 0.3, Basophils # (Auto) 0.1, Sodium Level 143, Potassium Level 4.1, Chloride Level 104, Carbon Dioxide Level 27, Anion Gap 12, Blood Urea Nitrogen 22, Creatinine 0.79, Estimat Glomerular Filtration Rate > 60, BUN/ Creatinine Ratio 28, Glucose Level 95, Calcium Level 9.4, Neutrophils % (Manual ) 48, Lymphocytes % (Manual) 35, Monocytes % (Manual) 7, Eosinophils % (Manual) 2, Atypical Lymphocytes 7, Blood Morphology Comment NORMAL 07/20/18 06:01: White Blood Count 14.6, Red Blood Count 4.00, Hemoglobin 11.4, Hematocrit 37, Mean Corpuscular Volume 92, Mean Corpuscular Hemoglobin 29, Mean Corpuscular Hemoglobin Concent 31, Red Cell Distribution Width 16.7, Platelet Count 434, Mean Platelet Volume 10.1, Neutrophils (%) (Auto) 63, Lymphocytes (%) (Auto) 23 , Monocytes (%) (Auto) 9, Eosinophils (%) (Auto) 5, Basophils (%) (Auto) 1, Neutrophils # (Auto) 9.1, Lymphocytes # (Auto) 3.3, Monocytes # (Auto) 1.4, Eosinophils # (Auto) 0.7, Basophils # (Auto) 0.1, Sodium Level 142, Potassium Level 4.0, Chloride Level 102, Carbon Dioxide Level 28, Anion Gap 12, Blood Urea Nitrogen 18, Creatinine 0.73, Estimat Glomerular Filtration Rate > 60, BUN/ Creatinine Ratio 25, Glucose Level 92, Calcium Level 9.2 07/22/18 09:30: White Blood Count 12.8, Red Blood Count 4.31, Hemoglobin 12.4, Hematocrit 39, Mean Corpuscular Volume 91, Mean Corpuscular Hemoglobin 29, Mean Corpuscular Hemoglobin Concent 32, Red Cell Distribution Width 16.8, Platelet Count 433, Mean Platelet Volume 10.4, Sodium Level 142, Potassium Level 4.2, Chloride Level 103, Carbon Dioxide Level 25, Anion Gap 14, Blood Urea Nitrogen 14, Creatinine 0.83, Estimat Glomerular Filtration Rate > 60, BUN/Creatinine Ratio 17, Glucose Level 146, Calcium Level 9.1 07/23/18 07:15: White Blood Count 11.3, Red Blood Count 4.42, Hemoglobin 12.2, Hematocrit 41, Mean Corpuscular Volume 92, Mean Corpuscular Hemoglobin 28, Mean Corpuscular Hemoglobin Concent 30, Red Cell Distribution Width 16.5, Platelet Count 378, Mean Platelet Volume 10.4, Sodium Level 142, Potassium Level 4.4, Chloride Level 104, Carbon Dioxide Level 29, Anion Gap 9, Blood Urea Nitrogen 12, Creatinine 0.72, Estimat Glomerular Filtration Rate > 60, BUN/Creatinine Ratio 17, Glucose Level 90, Calcium Level 9.4 Discussion & Recommendations [facility] [place] Dis[facility] Home Medications: Active Scripts Active Fluconazole 100 Mg Tablet 100 Mg PO DAILY Reported Ondansetron Odt (Ondansetron) 8 Mg Tab.rapdis 8 Mg PO Q6H PRN Proair Hfa (Albuterol Sulfate) 1 Puff Puff 2 Puff IH QID 1 PUFF = 90 MCG Acid [employer] (FAMOTIDINE) (Famotidine) 20 Mg Tablet 20 Mg PO DAILY Vitamin D-3 (Cholecalciferol (Vitamin D3)) 2,000 Unit Capsule 2,000 Unit PO DAILY B-12 (Cyanocobalamin (Vitamin B-12)) 500 Mcg Tablet 1,000 Mcg PO DAILY Multi-Vitamin Daily (Multivitamin) 1 Each Tablet 1 Each PO DAILY Cetirizine HCl 10 Mg Tablet 10 Mg PO DAILY Meloxicam 15 Mg Tablet 15 Mg PO DAILY Olanzapine 20 Mg Tablet 40 Mg PO HS Atorvastatin Calcium 10 Mg Tablet 10 Mg PO HS Cyclobenzaprine HCl 10 Mg Tablet 10 Mg PO TID Protonix (Pantoprazole Sodium) 40 Mg Tablet.dr 40 Mg PO BID Hydrocodon-Acetaminophn 10-325 (Hydrocodone/Acetaminophen) 1 Each Tablet 1 Each PO TID PRN MDD 5 Metoprolol Succinate 100 Mg Tab.er.24h 100 Mg PO DAILY Sucralfate 1 Gm Tablet 1 Gm PO TID Advair Hfa 115-21 Mcg Inhaler (Fluticasone/Salmeterol) 12 Gm Hfa.aer.ad 1 Puff IH BID Donepezil HCl 10 Mg Tablet 10 Mg PO DAILY Instructions to patient/family Please see electronic discharge instructions given to patient. Clinical Quality Measures DVT/VTE Risk/Contraindication: Risk Factor Score Per Nursin RFS Level Per Nursing on Admit: 4+=Very High JOCELYNE MEI DO Jul 25, 2018 07:37
== END 2018-07-24 14:35 | DRG 189 ==
LOC: EDUNIT# 12:00 → ER 12:01 → ICU 15:40 → 4TH 07-07 09:56
PROVIDERS: ADMIT Internal Medicine; ATTEND Internal Medicine
PROC: 0BD58ZX Extraction of Right Middle Lobe Bronchus, Via Natural or Artificial Opening Endoscopic, Diagnostic (ICD-10-PCS; 2018-07-18)
PROC: 0B9D8ZX Drainage of Right Middle Lung Lobe, Via Natural or Artificial Opening Endoscopic, Diagnostic (ICD-10-PCS; principal; 2018-07-18 09:25)
DX: J96.91 Respiratory failure, unspecified with hypoxia (principal); J96.92 Respiratory failure, unspecified with hypercapnia; B37.1 Pulmonary candidiasis; J15.29 Pneumonia due to other staphylococcus; J44.0 Chronic obstructive pulmonary disease with (acute) lower respiratory infection; J44.1 Chronic obstructive pulmonary disease with (acute) exacerbation; F31.32 Bipolar disorder, current episode depressed, moderate; I10 Essential (primary) hypertension; G72.9 Myopathy, unspecified; I25.10 Atherosclerotic heart disease of native coronary artery without angina pectoris; E78.00 Pure hypercholesterolemia, unspecified; G43.909 Migraine, unspecified, not intractable, without status migrainosus; L93.0 Discoid lupus erythematosus; K21.9 Gastro-esophageal reflux disease without esophagitis; K44.9 Diaphragmatic hernia without obstruction or gangrene; E03.9 Hypothyroidism, unspecified; F03.90 Unspecified dementia, unspecified severity, without behavioral disturbance, psychotic disturbance, mood disturbance, and anxiety; F41.9 Anxiety disorder, unspecified; D64.9 Anemia, unspecified; L40.9 Psoriasis, unspecified; S49.92XA Unspecified injury of left shoulder and upper arm, initial encounter; M17.12 Unilateral primary osteoarthritis, left knee; E66.01 Morbid (severe) obesity due to excess calories; Z68.38 Body mass index [BMI] 38.0-38.9, adult; Z99.81 Dependence on supplemental oxygen; Z86.79 Personal history of other diseases of the circulatory system; W19.XXXA Unspecified fall, initial encounter; Y92.099 Unspecified place in other non-institutional residence as the place of occurrence of the external cause
CPT/HCPCS: 36415; 36600; 51701; 71045; 71046; 71260; 73030; 73060; 73080; 73552; 73560; 73590; 80048; 80053; 80202; 81000; 82805; 82962; 83605; 83735; 83880; 84100; 84484; 85007; 85025; 85027; 85610; 85730; 87015; 87040; 87070; 87077; 87081; 87088; 87101; 87106; 87116; 87186; 87205; 87206; 87804; 88112; 88305; 88312; 93005; 93306; 94640; 94660; 94760; 96361; 96365; 96375

== ENCOUNTER → 2018-08-14 | Outpatient (CLI) | payer MEDICARE ==
[~2018-08-14] MED LIST changes: +ATOR10TA66 PO; +CHOL20002 PO; +CYAN500T44 PO; +DONE10TA41 PO; +ENOX40DI8 SQ; +FLUC100T6 PO; +METO-395 PO; +MULT-974 PO; +OLAN20TA16 PO; +PANT40TA2 PO; +RT-ALBUINH IH; +VERA180T11 PO; -VERA180T5 PO
--- NOTE | 2018-08-14 12:38 | Diagnostic Imaging Report ---
INDICATION: Follow up pneumonia. COMPARISON: 07/22/2018. FINDINGS: Frontal and lateral radiographic views of the chest were obtained and show normal cardiac silhouette and pulmonary vasculature. There are chronic appearing coarse interstitial opacities bilaterally. There is no new focal alveolar consolidation, large effusion, nor pneumothorax. Calcifications in the right apex are again noted. Bony structures show no gross acute abnormalities. IMPRESSION: 1. No new acute cardiopulmonary process. Dictated by: Dictated on workstation # [id number]
== END ==
LOC: RAD 09:51
PROVIDERS: ATTEND Nurse Practitioner Family
DX: J18.9 Pneumonia, unspecified organism (principal); J44.9 Chronic obstructive pulmonary disease, unspecified; J30.2 Other seasonal allergic rhinitis; Z87.891 Personal history of nicotine dependence
CPT/HCPCS: 71046

== ENCOUNTER 2018-08-31 15:09 | Emergency (ER) | payer MEDICARE ==
[~2018-08-31] VITALS: Ht 171.4 cm; Wt 90.7 kg
[2018-08-31] MEDS ORDERED: KETOROLAC 60 MG/2 ML VIAL IM ONE (15:15)
--- NOTE | 2018-08-31 15:18 | ED Lower Extremity ---
General Chief Complaint: Lower Extremity Stated Complaint: L HIP PAIN Source: patient Exam Limitations: no limitations History of Present Illness Date Seen by Provider: Aug 31, 2018 Time Seen by Provider: 15:17 Initial Comments To ER with reports of left knee pain 1-2 month after she fell. She states that when she stands up and bears weight on her legs she feels as though it is going to go out on her. Today, the pain was so intense she was unable to stand She has not been evaluated by primary care for this worsening of pain. Did have tib/ fib xray at the end of june. Pain just started hurting worse than usual last night. Pain radiates up the leg into the left groin. There've been no recurrent falls since the initial one. Onset: this evening Severity: moderate Pain/Injury Location: left hip, left leg, left knee Method of Injury: fell Modifying Factors: Worse With Movement Allergies and Home Medications Allergies Coded Allergies: clindamycin (Unverified Allergy, Mild, HIVES, 11/21/09) meperidine (Unverified Allergy, Mild, HAS RECEIVED FENTANYL IN THE PAST, ) morphine (Unverified Allergy, Mild, 11/21/09) codeine (Verified Adverse Reaction, Unknown, NAUSEA, 11/21/09) Home Medications Albuterol Sulfate 1 Puff Puff, 2 PUFF IH QID, (Reported) 1 PUFF = 90 MCG Atorvastatin Calcium 10 Mg Tablet, 10 MG PO HS, (Reported) Cetirizine HCl 10 Mg Tablet, 10 MG PO DAILY, (Reported) Cholecalciferol (Vitamin D3) 2,000 Unit Capsule, 2,000 UNIT PO DAILY, (Reported) Cyanocobalamin (Vitamin B-12) 500 Mcg Tablet, 1,000 MCG PO DAILY, (Reported) Cyclobenzaprine HCl 10 Mg Tablet, 10 MG PO TID, (Reported) Donepezil HCl 10 Mg Tablet, 10 MG PO DAILY, (Reported) Famotidine 20 Mg Tablet, 20 MG PO DAILY, (Reported) Fluconazole 100 Mg Tablet, 100 MG PO DAILY Prescribed by: JOCELYNE MEI on 07/24/18 0926 Fluticasone/Salmeterol 12 Gm Hfa.aer.ad, 1 PUFF IH BID, (Reported) Hydrocodone/Acetaminophen 1 Each Tablet, 1 EACH PO TID PRN for PAIN-MODERATE, ( Reported) Meloxicam 15 Mg Tablet, 15 MG PO DAILY, (Reported) Metoprolol Succinate 100 Mg Tab.er.24h, 100 MG PO DAILY, (Reported) Multivitamin 1 Each Tablet, 1 EACH PO DAILY, (Reported) Olanzapine 20 Mg Tablet, 40 MG PO HS, (Reported) Ondansetron 8 Mg Tab.rapdis, 8 MG PO Q6H PRN for NAUSEA/VOMITING-1ST LINE, ( Reported) Oxycodone HCl/Acetaminophen 1 Each Tablet, 1 TAB PO Q8H PRN for PAIN-MODERATE Prescribed by: SCOTT HOLLINGSWORTH on 08/31/18 182 Pantoprazole Sodium 40 Mg Tablet.dr, 40 MG PO BID, (Reported) Sucralfate 1 Gm Tablet, 1 GM PO TID, (Reported) Patient Home Medication List Home Medication List Reviewed: Yes Review of Systems Constitutional: see HPI EENTM: see HPI Respiratory: no symptoms reported Cardiovascular: no symptoms reported Genitourinary: no symptoms reported Musculoskeletal: see HPI Skin: no symptoms reported Psychiatric/Neurological: No Symptoms Reported Past Ipdenjh-Nbitsr-Heohxv Hx Patient Social History Alcohol Use: Denies Use Recreational Drug Use: No (20 YRS AGO) Smoking Status: Former Smoker Type Used: Cigarettes 2nd Hand Smoke Exposure: Yes Recent Hopitalizations: Yes Physical Abuse: No Sexual Abuse: No Immunizations Up To Date Tetanus Booster (TDap): Unknown PED Vaccines UTD: No Date of Pneumonia Vaccine: Mar 11, 2011 Date of Influenza Vaccine: Feb 22, 2018 Seasonal Allergies Seasonal Allergies: No Past Medical History Surgeries: Yes (PILONIDAL CYST, segmoid Colectomy 09/29/09, BOWEL RESECTION, COLOSTOMY ) Appendectomy, Bowel Surgery, Breast, Section, Hysterectomy, Oophorectomy, Tracheostomy Respiratory: Yes Chronic Bronchitis, COPD Currently Using CPAP: No Currently Using BIPAP: No Cardiac: Yes (SVT) Chronic Edema/Swelling, Coronary Artery Disease, High Cholesterol, Hypertension Neurological: Yes Headaches /Migraines Reproductive Disorders: Yes (RIGHT BREAST BENING LUMP-REMOVED) Female Reproductive Disorders: Denies Sexually Transmitted Disease: No HIV/AIDS: No Genitourinary: No Gastrointestinal: Yes Gastroesophageal Reflux, Hiatal Hernia, Ulcer Musculoskeletal: Yes (CHRONIC GENERALIZED PAIN ) Arthritis Endocrine: Yes Hypothyroidsim, Lupus HEENT: No Loss of Vision: Denies Hearing Impairment: Denies Cancer: No Psychosocial: Yes Anxiety, Bipolar, Personality Disorder, Depression Integumentary: Yes Psoriasis Blood Disorders: Yes (ANEMIA POST OP) Family Medical History Arthritis 19 FATHER 19 MOTHER Cardiovascular disease 19 FATHER Cataracts 19 MOTHER Completed stroke 19 MOTHER Dysphasia 19 FATHER FH: cirrhosis 19 MOTHER Glaucoma 19 MOTHER Hypercholesterolemia 19 FATHER Hypertension 19 FATHER 19 MOTHER Myocardial infarction 19 FATHER Osteoporosis 19 MOTHER No Family History of: AIDS Abdominal aortic aneurysm Massac's disease Alcoholism Alzheimer's disease Aphasia Asthma Cancer of mouth Colon cancer Congenital disease Congenital heart disease Coronary thrombosis Cystic fibrosis Deafness or hearing loss Dementia Diabetes mellitus Drug abuse Fibrocystic disease of breast Gastroenteritis Headache disorder Infertility Kidney disease Neoplasm Not obtainable due to adoption Parkinson's disease Prostate cancer Psychosocial problem Respiratory disorder Seizure disorder Severe allergy Thyroid disease Tuberculosis Visual disorder GI Disease Physical Exam Vital Signs Vital Signs - First Documented 08/31/18 08/31/18 15:09 19:25 Temp 98.5 Pulse 86 Resp 16 B/P (MAP) 185/97 (126) Pulse Ox 99 O2 Delivery Room Air O2 Flow Rate 2.00 Capillary Refill : Height, Weight, BMI Height: 5'7.00" Weight: 229lbs. 1.0oz. 103.020125xd; 37.0 BMI Method:Stated General Appearance: WD/WN, no apparent distress HEENT: PERRL/EOMI, normal ENT inspection Respiratory: no respiratory distress, no accessory muscle use Hips: bilateral hip non-tender, bilateral hip normal inspection, bilateral hip normal range of motion Legs: left leg pain, left leg soft tissue tenderness, left leg other (no swelling) Knees: bilateral knee non-tender, bilateral knee normal inspection, bilateral knee normal range of motion Ankles: bilateral ankle non-tender, bilateral ankle normal inspection, bilateral ankle normal range of motion Feet: bilateral foot non-tender, bilateral foot normal inspection, bilateral foot normal range of motion Neurologic/Psychiatric: alert, normal mood/affect, oriented x 3 Skin: normal color, warm/dry Strong dorsalis pedis pulse on the left Progress/Results/Core Measures Results/Orders My Orders Orders - SCOTT HOLLINGSWORTH APRN Knee, Left, 3 Views (08/31/18 15:15) Hip, Left, 2 Views (08/31/18 15:15) Ketorolac Injection (Toradol Injection) (08/31/18 15:15) Oxycodone/Acet 10/325mg Tablet (Percocet (08/31/18 16:30) General/Regular (08/31/18 Lunch) Knee Immobilizer (08/31/18 16:21) Medications Given in ED Vital Signs/I&O 08/31/18 08/31/18 15:09 19:25 Temp 98.5 96.7 Pulse 86 88 Resp 16 16 B/P (MAP) 185/97 (126) 177/99 (125) Pulse Ox 99 98 O2 Delivery Room Air Nasal Cannula O2 Flow Rate 2.00 Departure Communication (Admissions) 1603-she's had no falls since her injury in June. This was 2 months ago and the tibial plateau fracture does show callus formation consistent with a subacute injury. I discussed this with Dr. Zamora who is on-call. Does not recommend any operative repair at this time, does recommend weightbearing as tolerated, knee immobilizer, he'll be happy to follow-up, he would recommend allowing this to heal then total knee replacement in the future. 1817-myself, Geneva BLEVINS and tech have been in to the room, got the patient up using a walker in a knee immobilizer. Patient is able to handle it from the bed to the door without assistance other than her walker. She began crying when I told her that she would be discharged home as we do not have admission criteria. Asked if She had any family she could call to sit with her or who can stay with her to help with activities of daily living and she states no. I then tried to call the to listed family members myself but no answer initially. She does not meet admission criteria. [facility] will not take admission over the weekend 1830-I discussed with the patient's son Joe who lives in [place], he is unable to come by and help his mother out with activity such as getting dressed and applying a knee brace. I spoke with the patient's daughter who has a [place] address, she states that she too is unable to come by and check on her mother or help with activities of daily living since she does not live in [place] or [place]. She is upset that we will send the patient home without someone to care for her, but our options are limited at 6:30 on a Sunday evening. Advised that the patient does not need any medical care, only needs help with getting dressed and standby assistance such as with meals, dressing, applying knee immobilizer. We are on diversion here, the patient is not in need of transfer to tertiary care center. I spoke with Dr. Pringle. The rehabilitation unit here does not do weakened admissions, nursing homes do not do weakened admissions. Pt was able to get up and walk to the door without assistance. unfortunately we will have to send her home to continue outpatient therapy.She is oxygen dependent so We'll transport home via EMS. Impression Primary Impression: Tibial plateau fracture Qualified Codes: S82.142A - Displaced bicondylar fracture of left tibia, initial encounter for closed fracture Disposition: HOME, SELF-CARE Condition: Improved (improved condition as she is now able to walk, albeit with some pain. ) Departure-Patient Inst. Decision time for Depature: 16:03 Referrals: JOCELYNE MEI DO (PCP/Family) Primary Care Physician JOSEY ZAMORA MD Patient Instructions: Tibial Plateau Fracture Add. Discharge Instructions: 1. Follow-up with your doctor next week. He'll need to refer you to an orthopedic surgeon or he may call Dr. Zamora directly at the number provided. 2. Return to ER for any concerns 3. Wear the knee immobilizer when you're up and about. Take her time getting around so as not to fall. He may take the knee immobilizer off when you are at rest such as sitting in a recliner or in bed. Stop taking the hydrocodone and replace it with the stronger oxycodone. All discharge instructions reviewed with patient and/or family. Voiced understanding. Scripts Oxycodone HCl/Acetaminophen (Percocet 10-325 mg Tablet) 1 Each Tablet 1 TAB PO Q8H PRN for PAIN-MODERATE MDD 3 TABS, #30 TAB Prov: SCOTT HOLLINGSWORTH APRN 08/31/18 Copy Copies To 1: JOCELYNE MEI PETER J APRN Aug 31, 2018 15:18
--- NOTE | 2018-08-31 15:30 | NUR ---
PATIENT TO X-RAY VIA CART.
--- NOTE | 2018-08-31 15:44 | NUR ---
PATIENT BACK TO ROOM FROM X-RAY.
--- NOTE | 2018-08-31 15:50 | Diagnostic Imaging Report ---
INDICATION: Left hip and knee pain. COMPARISON: None. EXAMINATION: Two views of the left hip were obtained. FINDINGS: No fracture or dislocation. Articular surfaces are normal. There is no foreign body. IMPRESSION: Negative left hip. Dictated by: Dictated on workstation # [id number]
--- NOTE | 2018-08-31 16:07 | Diagnostic Imaging Report ---
EXAMINATION: Left knee at 03:39 p.m. INDICATION: Knee pain. FINDINGS: Three views were obtained. The previous left tibia and fibula exam of 07/05/2018 failed to show any sign of an acute bony abnormality. On this study however, there is now a depressed slightly impacted fracture of the medial half of the proximal tibia. There is exuberant callus formation about this injury and I suspect that this fracture is subacute in nature. Furthermore, the fracture does appear to extend between the tibial spines. If further evaluation of extent of the injury to the proximal tibia is desired, CT would be recommended. There is no acute fracture identified. There is a small linear lucency along the medial aspect of the lateral femoral condyle. This finding was not present on the prior exam and could be related to osteochondritis dissecans. The medial and lateral compartments of the knee joint are fairly well-maintained. There is marked narrowing of the patellofemoral space. There does seem to be generalized soft tissue edema about the knee joint. IMPRESSION: 1. There is an impacted complex slightly displaced fracture of the medial half of the tibial plateau. The exuberant callus formation about this injury does indicate that this is subacute in nature. If further evaluation is desired, CT would be recommended. 2. There is no acute bony abnormality noted otherwise. However, there is a question of osteochondritis dissecans involving the medial aspect of the lateral femoral condyle. These results were discussed with Marcin Mast APRN. Dictated by: Dictated on workstation # [id number]
[2018-08-31] MEDS ORDERED: oxyCODONE/APAP 10/325MG (PERCOCET 10) TABLET PO ONE (16:30)
--- NOTE | 2018-08-31 16:53 | NUR ---
PATIENT ORDERED AND GIVEN SUPPER TRAY.
--- NOTE | 2018-08-31 18:08 | NUR ---
KNEE IMMOBILIZER PLACED TO PATIENT'S LEFT KNEE AND PATIENT ASSISTED OUT OF BED. PATIENT ABLE TO WALK WITH USE OF WALKER AND KNEE IMMOBILIZER IN PLACE. PATIENT BEGINS CRYING AND STATES SHE FEELS LIKE SHE IS UNABLE TO GO HOME AND TAKE CARE OF HERSELF.
[2018-08-31] MEDS ORDERED: OXYC1TAB12 PO (18:21)
[2018-08-31 19:25] VITALS: BP 177/99
--- NOTE | 2018-08-31 19:25 | NUR ---
PATIENT DISCHARGED TO HOME VIA [facility] WITH OXYGEN AT 2 LPM. PATIENT IS CONSCIOUS, ALERT AND ORIENTED X 4. PATIENT HAS BELONGINGS OF PURSE, WALKER AND KEYS WITH HER THAT EMS TRANSPORTED WITH THE PATIENT. PATIENT IS GIVEN A PRESCRIPTION FOR PERCOCET AND HAS THAT WITH HER AT TIME OF DISCHARGE. PATIENT HAS STABLE VITAL SIGNS. PATIENT IS ABLE TO STAND AND SIT ON EMS COT. KNEE IMMOBILIZER IN PLACE AT TIME OF DISCHARGE.
--- NOTE | 2018-08-31 19:27 | NUR ---
PATIENT IS BEING DISCHARGED TO HOME BY EMS. WAITING FOR EMS TO ARRIVE TO TRANSPORT PATIENT TO HOME DUE TO PATIENT BEING ON OXYGEN.
== END 2018-08-31 19:54 | disposition home or self-care (01) ==
LOC: EDUNIT# 15:09 → ER 15:10
DX: S82.142A Displaced bicondylar fracture of left tibia, initial encounter for closed fracture (principal); J44.9 Chronic obstructive pulmonary disease, unspecified; I25.10 Atherosclerotic heart disease of native coronary artery without angina pectoris; E78.00 Pure hypercholesterolemia, unspecified; I10 Essential (primary) hypertension; G43.909 Migraine, unspecified, not intractable, without status migrainosus; K21.9 Gastro-esophageal reflux disease without esophagitis; E03.9 Hypothyroidism, unspecified; M32.9 Systemic lupus erythematosus, unspecified; F41.9 Anxiety disorder, unspecified; F31.9 Bipolar disorder, unspecified; F60.9 Personality disorder, unspecified; D64.9 Anemia, unspecified; Z87.19 Personal history of other diseases of the digestive system; Z82.49 Family history of ischemic heart disease and other diseases of the circulatory system; Z88.1 Allergy status to other antibiotic agents; Z88.5 Allergy status to narcotic agent; Z88.8 Allergy status to other drugs, medicaments and biological substances; Z79.51 Long term (current) use of inhaled steroids; Z87.891 Personal history of nicotine dependence; Z90.49 Acquired absence of other specified parts of digestive tract; Z93.3 Colostomy status; Z90.710 Acquired absence of both cervix and uterus; Z93.0 Tracheostomy status; Z98.890 Other specified postprocedural states; Z87.09 Personal history of other diseases of the respiratory system; W19.XXXA Unspecified fall, initial encounter
CPT/HCPCS: 73502; 73562

== ENCOUNTER → 2018-09-16 | Outpatient (CLI) | payer MEDICARE ==
[~2018-09-16] MED LIST changes: +OXYC1TAB12 PO
--- NOTE | 2018-09-16 20:09 | Diagnostic Imaging Report ---
EXAMINATION: Left knee at 3:16 p.m. INDICATION: Knee pain. Three views were obtained. FINDINGS: The previous left knee exam of 08/31/2018 noted an impacted, complex, slightly displaced fracture of the medial half of the tibial plateau. There was callus formation about this injury indicating that it was subacute in nature. On this exam, that finding is again evident and no different. There is no acute bony abnormality noted. The previous exam also raised the question of osteochondritis dissecans involving the medial aspect of the lateral femoral condyle. That finding seems stable as well. The soft tissues are unremarkable. IMPRESSION: 1. The subacute fracture of the medial aspect of the proximal tibia seen previously is again evident and no different. There is no acute bony abnormality identified. 2. There is still a question of osteochondritis dissecans involving the lateral femoral condyle. If further study is desired, then MRI would be recommended. Dictated by: Dictated on workstation # [id number]
== END ==
LOC: RAD 15:07
PROVIDERS: ATTEND Family Medicine
DX: S82.102A Unspecified fracture of upper end of left tibia, initial encounter for closed fracture (principal); W19.XXXA Unspecified fall, initial encounter
CPT/HCPCS: 73562

== ENCOUNTER → 2018-10-15 | Outpatient (CLI) | payer MEDICARE, MEDICAID ==
[2018-10-15 09:05] LABS: BUN/CREATININE RATIO 19; CREATININE SERUM 0.79 MG/DL (0.60-1.30); GFR ESTIMATED > 60
--- NOTE | 2018-10-15 12:06 | Diagnostic Imaging Report ---
PROCEDURE: CT chest with contrast only. TECHNIQUE: Multiple contiguous axial images were obtained through the chest after administration of intravenous contrast. Auto Exposure Controls were utilized during the CT exam to meet ALARA standards for radiation dose reduction. INDICATION: Followup pulmonary nodule. COMPARISON: 07/15/2018. FINDINGS: Lungs and airway: No endoluminal nodule within the trachea. Severe paraseptal and centrilobular emphysema in the lung apices is unchanged. Calcified right apical subpleural scarring is also unchanged. Previously noted micronodular consolidations within the mid and lower lung zones have resolved. The left lower lobe rounded subpleural 12 mm nodule has a more linear appearance and is likely due to atelectasis. The right lower lobe nodular opacities have resolved. Pleura: No pleural effusion or pneumothorax. Heart and mediastinum: Visualized thyroid is normal. No supraclavicular or axillary lymph adenopathy. No mediastinal, discrete hilar, or juxtaphrenic lymphadenopathy. Heart is normal in size without pericardial effusion. Normal-caliber thoracic aorta. Upper abdomen: Cholelithiasis is present. No features of acute cholecystitis. No acute abnormality in the upper abdomen is noted. Musculoskeletal: No concerning focal osseous lesions in the chest. IMPRESSION: 1. Scattered basilar pulmonary nodules have resolved or have a more linear configuration indicative of infectious/inflammatory foci or atelectasis. 2. There are no features of intrathoracic neoplasm. Dictated by: Dictated on workstation # [id number]
== END ==
LOC: RAD 08:26
PROVIDERS: ATTEND Family Medicine
DX: J43.2 Centrilobular emphysema (principal); N28.9 Disorder of kidney and ureter, unspecified
CPT/HCPCS: 36415; 71260; 82565; 84520

== ENCOUNTER 2019-06-14 08:06 | Emergency (ER) | payer MEDICAID, MEDICARE ==
[~2019-06-14] VITALS: Ht 167 cm; Wt 104.0 kg
[~2019-06-14 08:06] MED LIST changes: +CYAN-41 PO; -CYAN10006 PO; -OLAN20TA16 PO; +OLAN20TA34 PO
--- NOTE | 2019-06-14 08:29 | ED EENT ---
History of Present Illness General Chief Complaint: Facial Problems Stated Complaint: FACIAL SWELLING Nursing Triage Note: pt presents to ed with complaints of r sided facial pain/swelling starting yesterday. pt reports sinus pressure and a broken tooth on her r upper side. Source: patient, EMS Exam Limitations: no limitations History of Present Illness Date Seen by Provider: Jun 14, 2019 Time Seen by Provider: 08:22 Initial Comments This 39-year-old white female presents with right facial swelling started yesterday. Patient has dental caries to the area. She is complaining of sinus tenderness in the right maxillary area. Fortunately she denies photophobia, headache, or stiff neck. Patient's past medical history is significant for autoimmune disease. In addition the patient is an uncontrolled diabetic. Allergies and Home Medications Allergies Coded Allergies: clindamycin (Unverified Allergy, Mild, HIVES, 11/21/09) meperidine (Unverified Allergy, Mild, HAS RECEIVED FENTANYL IN THE PAST, 08/11/09) morphine (Unverified Allergy, Mild, 11/21/09) doxycycline (Verified Allergy, Unknown, 06/14/19) codeine (Verified Adverse Reaction, Unknown, NAUSEA, 11/21/09) Home Medications Albuterol Sulfate 1 Puff Puff, 2 PUFF IH QID, (Reported) 1 PUFF = 90 MCG Atorvastatin Calcium 10 Mg Tablet, 10 MG PO HS, (Reported) Cetirizine HCl 10 Mg Tablet, 10 MG PO DAILY, (Reported) Cholecalciferol (Vitamin D3) 2,000 Unit Capsule, 2,000 UNIT PO DAILY, (Reported) Cyanocobalamin (Vitamin B-12) 500 Mcg Tablet, 1,000 MCG PO DAILY, (Reported) Cyclobenzaprine HCl 10 Mg Tablet, 10 MG PO TID, (Reported) Donepezil HCl 10 Mg Tablet, 10 MG PO DAILY, (Reported) Famotidine 20 Mg Tablet, 20 MG PO DAILY, (Reported) Fluconazole 100 Mg Tablet, 100 MG PO DAILY Prescribed by: JOCELYNE MEI on 07/24/18 0926 Fluticasone/Salmeterol 12 Gm Hfa.aer.ad, 1 PUFF IH BID, (Reported) Hydrocodone/Acetaminophen 1 Each Tablet, 1 EACH PO TID PRN for PAIN-MODERATE, (Reported) Meloxicam 15 Mg Tablet, 15 MG PO DAILY, (Reported) Metoprolol Succinate 100 Mg Tab.er.24h, 100 MG PO DAILY, (Reported) Multivitamin 1 Each Tablet, 1 EACH PO DAILY, (Reported) Olanzapine 20 Mg Tablet, 40 MG PO HS, (Reported) Ondansetron 8 Mg Tab.rapdis, 8 MG PO Q6H PRN for NAUSEA/VOMITING-1ST LINE, (Reported) Oxycodone HCl/Acetaminophen 1 Each Tablet, 1 TAB PO Q8H PRN for PAIN-MODERATE Prescribed by: SCOTT HOLLINGSWORTH on 08/31/181820 Pantoprazole Sodium 40 Mg Tablet.dr, 40 MG PO BID, (Reported) Sucralfate 1 Gm Tablet, 1 GM PO TID, (Reported) Patient Home Medication List Home Medication List Reviewed: Yes Review of Systems Review of Systems Constitutional: No chills, No fever Eyes: No Symptoms Reported ( ) Ears: No Symptoms Reported Nose: no symptoms reported Mouth: see HPI, pain, swelling Throat: no symptoms reported Respiratory: no symptoms reported Cardiovascular: no symptoms reported Gastrointestinal: no symptoms reported Musculoskeletal: no symptoms reported Skin: no symptoms reported Neurological: No Symptoms Reported; Denies Headache Hematologic/Lymphatic: No Symptoms Reported Immunological/Allergic: no symptoms reported Past Xzmgvkh-Yzgbye-Oncstb Hx Past Med/Social Hx: Reviewed Nursing Past Med/Soc Hx Patient Social History Alcohol Use: Denies Use Recreational Drug Use: No (20 YRS AGO) Smoking Status: Former Smoker Type Used: Cigarettes Former Smoker, Quit: Jun 19, 2018 2nd Hand Smoke Exposure: Yes Recent Foreign Travel: No Contact w/Someone Who Travel: No Recent Infectious Disease Expo: No Recent Hopitalizations: Yes Physical Abuse: No Sexual Abuse: No Mistreated: No Fear: No Immunizations Up To Date Tetanus Booster (TDap): Unknown PED Vaccines UTD: No Date of Pneumonia Vaccine: Mar 11, 2011 Date of Influenza Vaccine: Feb 22, 2018 Seasonal Allergies Seasonal Allergies: No Past Medical History Surgeries: Yes (PILONIDAL CYST, segmoid Colectomy 09/29/09, BOWEL RESECTION, COLOSTOMY ) Appendectomy, Bowel Surgery, Breast, Section, Hysterectomy, Oophorectomy, Tracheostomy Respiratory: Yes Chronic Bronchitis, COPD Currently Using CPAP: No Currently Using BIPAP: No Cardiac: Yes (SVT) Chronic Edema/Swelling, Coronary Artery Disease, High Cholesterol, Hypertension Neurological: Yes Headaches /Migraines Reproductive Disorders: Yes (RIGHT BREAST BENING LUMP-REMOVED) Female Reproductive Disorders: Denies Sexually Transmitted Disease: No HIV/AIDS: No Genitourinary: No Gastrointestinal: Yes Gastroesophageal Reflux, Hiatal Hernia, Ulcer Musculoskeletal: Yes (CHRONIC GENERALIZED PAIN ) Arthritis Endocrine: Yes Hypothyroidsim, Diabetes, Non-Insulin dep, Lupus HEENT: No Loss of Vision: Denies Hearing Impairment: Denies Cancer: No Psychosocial: Yes Anxiety, Bipolar, Personality Disorder, Depression Integumentary: Yes Psoriasis Blood Disorders: Yes (ANEMIA POST OP) Family Medical History Arthritis 19 FATHER 19 MOTHER Cardiovascular disease 19 FATHER Cataracts 19 MOTHER Completed stroke 19 MOTHER Dysphasia 19 FATHER FH: cirrhosis 19 MOTHER Glaucoma 19 MOTHER Hypercholesterolemia 19 FATHER Hypertension 19 FATHER 19 MOTHER Myocardial infarction 19 FATHER Osteoporosis 19 MOTHER No Family History of: AIDS Abdominal aortic aneurysm [place]'s disease Alcoholism Alzheimer's disease Aphasia Asthma Cancer of mouth Colon cancer Congenital disease Congenital heart disease Coronary thrombosis Cystic fibrosis Deafness or hearing loss Dementia Diabetes mellitus Drug abuse Fibrocystic disease of breast Gastroenteritis Headache disorder Infertility Kidney disease Neoplasm Not obtainable due to adoption Parkinson's disease Prostate cancer Psychosocial problem Respiratory disorder Seizure disorder Severe allergy Thyroid disease Tuberculosis Visual disorder GI Disease Physical Exam Vital Signs Vital Signs - First Documented 06/14/19 08:13 Temp 36.4 Pulse 87 Resp 16 B/P (MAP) 187/93 (124) Pulse Ox 100 Height, Weight, BMI Height: 5'7.50" Weight: 200lbs. 1.0oz. 90.037085fe; 37.00 BMI Method:Stated General Appearance: WD/WN, no apparent distress Eyes: bilateral eye normal inspection Ears: bilateral ear auricle normal Nose: normal inspection Mouth/Throat: No excessive drooling; maxillary swelling (over the right maxilla); No pharynx swelling, No tongue swollen; other (dental caries are noted in the right maxilla) Neck: non-tender, full range of motion, supple Cardiovascular: regular rate, rhythm, no murmur Respiratory: lungs clear, normal breath sounds Gastrointestinal: normal bowel sounds Neurologic/Psychiatric: no motor/sensory deficits, normal mood/affect Skin: warm/dry Progress/Results/Core Measures Results/Orders Lab Results Laboratory Tests Test 06/14/19 08:28 06/14/19 08:35 Range/Units White Blood Count 13.4 H 4.3-11.0 10^3/uL Red Blood Count 4.40 4.35-5.85 10^6/uL Hemoglobin 10.5 L 11.5-16.0 G/DL Hematocrit 38 35-52 % Mean Corpuscular Volume 86 80-99 FL Mean Corpuscular Hemoglobin 24 L 25-34 PG Mean Corpuscular Hemoglobin Concent 28 L 32-36 G/DL Red Cell Distribution Width 17.5 H 10.0-14.5 % Platelet Count 416 H 130-400 10^3/uL Mean Platelet Volume 9.6 7.4-10.4 FL Neutrophils (%) (Auto) 72 42-75 % Lymphocytes (%) (Auto) 17 12-44 % Monocytes (%) (Auto) 6 0-12 % Eosinophils (%) (Auto) 4 0-10 % Basophils (%) (Auto) 0 0-10 % Neutrophils # (Auto) 9.6 H 1.8-7.8 X 10^3 Lymphocytes # (Auto) 2.3 1.0-4.0 X 10^3 Monocytes # (Auto) 0.8 0.0-1.0 X 10^3 Eosinophils # (Auto) 0.6 H 0.0-0.3 10^3/uL Basophils # (Auto) 0.0 0.0-0.1 10^3/uL Erythrocyte Sedimentation Rate 29 0-30 MM/HR Lactic Acid Level 1.22 0.50-2.00 MMOL/L My Orders Orders - YE TEJADA MD Cbc With Automated Diff (06/14/19 08:19) Blood Culture (06/14/19 08:19) Ct Maxillofacial Wo (06/14/19 08:19) Erythrocyte Sedimentation Rate (06/14/19 08:19) Lactic Acid Analyzer (06/14/19 08:19) Ns Iv 1000 Ml (Sodium Chloride 0.9%) (06/14/19 08:30) Ceftriaxone For Iv Use (Rocephin For I (06/14/19 08:30) Medications Given in ED Current Medications Medications Dose Ordered Sig/Randy Route Start Time Stop Time Status Last Admin Dose Admin Ceftriaxone Sodium 2000 mg/ Sterile Water 20 ml @ 240 mls/hr ONCE ONCE IV 06/14/19 08:30 06/14/19 08:34 DC 06/14/19 09:30 240 MLS/HR Vital Signs/I&O 06/14/19 08:13 Temp 36.4 Pulse 87 Resp 16 B/P (MAP) 187/93 (124) Pulse Ox 100 Blood Pressure Mean: 124 Progress Progress Note : Time: 09:56 Progress Note The patient's CT of the maxillofacial area demonstrated soft tissue swelling but no evidence of an abscess. The patient's CBC was 13,400. Lactic acid was normal. Patient received 2 g Rocephin IV. I discussed findings with the patient, initiated oral antibiotics, and asked that she follow up with dentistry at [facility] on Sunday. I invited her to return to the emergency department if she any further problems or questions. Departure Impression Primary Impression: Cellulitis of face Additional Impressions: Facial swelling Dental caries Disposition: HOME, SELF-CARE Condition: Improved Departure-Patient Inst. Decision time for Depature: 09:58 Referrals: JOCELYNE MEI DO (PCP/Family) Primary Care Physician Patient Instructions: Dental Pain (DC) Add. Discharge Instructions: Pen-Vee K as prescribed. Ultram for pain. Follow-up with dentistry on Sunday. Return if any problems or questions. All discharge instructions reviewed with patient and/or family. Voiced understanding. Scripts Penicillin V Potassium (Penicillin V Potassium) 500 Mg Tablet 500 MG PO QID for 10 Days, TAB Prov: YE TEJADA MD 06/14/19 Tramadol HCl (Ultram) 50 Mg Tablet 100 MG PO Q6H for p, #30 TAB Prov: YE TEJADA MD 06/14/19 YE TEJADA MD Jun 14, 2019 08:29
[2019-06-14] MEDS ORDERED: cefTRIAXone FOR IV USE 2,000 MG in WATER (STERILE) FOR INJECTION 20 ML IV ONE (08:30)
[2019-06-14] MEDS ORDERED: NS IV 1000 ML 1,000 ML IV SCH (08:30)
[2019-06-14 08:50] LABS: BASOPHILS % (AUTO) 0 % (0-10); EOSINOPHILS # (AUTO) 0.6 10^3/uL (0.0-0.3); EOSINOPHILS % (AUTO) 4 % (0-10); HEMATOCRIT 38 % (35-52); HEMOGLOBIN 10.5 G/DL (11.5-16.0); LYMPHOCYTES # (AUTO) 2.3 X 10^3 (1.0-4.0); LYMPHOCYTES % (AUTO) 17 % (12-44); MEAN CORPUSCULAR HEMOGLOBIN 24 PG (25-34); MEAN CORPUSCULAR HGB CONC 28 G/DL (32-36); MEAN CORPUSCULAR VOLUME 86 FL (80-99); MEAN PLATELET VOLUME 9.6 FL (7.4-10.4); MONOCYTES # (AUTO) 0.8 X 10^3 (0.0-1.0); MONOCYTES % (AUTO) 6 % (0-12); NEUTROPHILS # (AUTO) 9.6 X 10^3 (1.8-7.8); NEUTROPHILS % (AUTO) 72 % (42-75); PLATELET COUNT 416 10^3/uL (130-400); RED CELL DISTRIBUTION WIDTH 17.5 % (10.0-14.5); WHITE BLOOD COUNT 13.4 10^3/uL (4.3-11.0)
[2019-06-14 09:13] LABS: ERYTHROCYTE SEDIMENTATION RATE 29 MM/HR (0-30)
--- NOTE | 2019-06-14 09:45 | Diagnostic Imaging Report ---
PROCEDURE: CT maxillofacial without contrast. TECHNIQUE: Multiple contiguous axial images were obtained through the facial bones without the use of intravenous contrast. Auto Exposure Controls were utilized during the CT exam to meet ALARA standards for radiation dose reduction. INDICATION: Right-sided facial pain and swelling. Headache. COMPARISON: None. FINDINGS: Soft tissue swelling overlying the right maxilla and orbit. No organized fluid collections. No post septal orbital inflammation. There are several maxillary and mandibular caries without any definitive periapical lucencies. There is advanced mucosal thickening in the right maxillary sinus. Osseous structures are intact. Mastoids are clear. Normal alignment of the temporomandibular joints. The major salivary glands are unremarkable in this noncontrast exam. IMPRESSION: Soft tissue inflammation overlying the right maxilla and orbit. There are no organized fluid collections identified on this noncontrast exam. There is also marked mucosal thickening in the right maxillary sinus which may represent the focus of infection/inflammation. Although there are numerous dental caries, there are no large periapical lucencies. A dental source is not excluded. Dictated by: Dictated on workstation # [id number]
[2019-06-14] MEDS ORDERED: TRAM-42 PO (10:06)
[2019-06-14] MEDS ORDERED: PENI500T PO (10:06)
[2019-06-14 11:53] VITALS: BP 178/100
== END 2019-06-14 11:53 | disposition home or self-care (01) ==
LOC: EDUNIT# 08:06 → ER 08:07
DX: L03.211 Cellulitis of face (principal); K02.9 Dental caries, unspecified; E11.9 Type 2 diabetes mellitus without complications; J44.9 Chronic obstructive pulmonary disease, unspecified; I25.10 Atherosclerotic heart disease of native coronary artery without angina pectoris; E78.00 Pure hypercholesterolemia, unspecified; I10 Essential (primary) hypertension; G43.909 Migraine, unspecified, not intractable, without status migrainosus; K21.9 Gastro-esophageal reflux disease without esophagitis; E03.9 Hypothyroidism, unspecified; M32.9 Systemic lupus erythematosus, unspecified; F31.9 Bipolar disorder, unspecified; F60.9 Personality disorder, unspecified; Z88.1 Allergy status to other antibiotic agents; Z88.5 Allergy status to narcotic agent; Z88.6 Allergy status to analgesic agent; Z79.51 Long term (current) use of inhaled steroids; Z87.891 Personal history of nicotine dependence; Z90.49 Acquired absence of other specified parts of digestive tract; Z90.710 Acquired absence of both cervix and uterus; Z93.0 Tracheostomy status; Z82.49 Family history of ischemic heart disease and other diseases of the circulatory system
CPT/HCPCS: 36415; 70486; 83605; 85025; 85652; 87040; 96361; 96374

== ENCOUNTER 2019-10-07 07:07 | Inpatient (IN) | payer MEDICARE ==
[~2019-10-07] VITALS: Ht 170.2 cm; Wt 120.9 kg
[2019-10-07] VITALS (8 sets, daily range): BP systolic 112–194; BP diastolic 70–126
[~2019-10-07 07:07] MED LIST changes: +ACHYD1T PO; -HYDR-3820 PO; -METO-370 PO; -METO-395 PO; +METO50TA7 PO; +MTP100TCR PO; +PENI500T PO; +TRAM-42 PO; +methylPREDNISolone 125 MG (Solu-MEDROL) VIAL IVP SCH
[2019-10-07] MEDS ORDERED: LABETALOL HCL 20 MG/4 ML VIAL IV ONE (07:30)
--- NOTE | 2019-10-07 07:33 | ED General ---
General Stated Complaint: WEAKNESS Source of Information: Patient (LIMITED HISTORIAN), Old Records History of Present Illness Date Seen by Provider: Oct 07, 2019 Time Seen by Provider: 07:03 Initial Comments PT ARRIVES VIA EMS FROM HOME--PT LIVES ALONE STATES SHE WOKE UP AND HAD WET THE BED DURING THE NIGHT GOT UP AND TOOK A SHOWER, AND WAS VERY WEAK ALL OVER, SO CALLED EMS NO FALL OR INJURY HAS VOIDED SINCE SHE WOKE UP AND DID NOT HAVE ANY PROBLEMS URINATING. NO BOWEL INCONTINENCE NO PERINEAL ANESTHESIA C/O LEFT HAND FEELING A LITTLE NUMB, AND ENTIRE LEFT ARM HURTS TO MOVE IT NO CHEST PAIN NO CHANGE IN CHRONIC SHORTNESS OF BREATH --O2 SATS 100% ON 4L/NC--PT WEARS HOME O2 AT 4L/NC CONTINUOUSLY NO HEADACHE NO VISION CHANGES NO CHEST PAIN NO PALPITATIONS NO DIZZINESS NO COUGH/CONGESTION OR RECENT ILLNESS NO NECK OR BACK PAIN STATES "MY SPEECH HAS BEEN A LITTLE GARBLED" BUT SPEECH IS COMPLETELY NORMAL AT THIS TIME ACCUCHECK 117 BY EMS O2 SAT 100% ON 4L/NC BY EMS EMS REPORT THEY ARE FAMILIAR WITH PT AND HAVE TRANSPORTED HER BEFORE FOR THIS SAME COMPLAINT OF GENERALIZED WEAKNESS HAS NOT TAKEN ANY OF HER MORNING MEDICATIONS NO KNOWN SICK CONTACTS OR EXPOSURE TO COVID-19 NO RECENT TRAVEL PCP: DR. MEI Allergies and Home Medications Allergies Coded Allergies: clindamycin (Unverified Allergy, Mild, HIVES, 11/21/09) meperidine (Unverified Allergy, Mild, HAS RECEIVED FENTANYL IN THE PAST, 08/11/09) morphine (Unverified Allergy, Mild, 11/21/09) doxycycline (Verified Allergy, Unknown, 06/14/19) codeine (Verified Adverse Reaction, Unknown, NAUSEA, 11/21/09) Home Medications Acetaminophen 650 Mg Tablet.er, 1,300 MG PO Q8H PRN for PAIN-MILD (1-4), (Reported) Amlodipine Besylate 5 Mg Tablet, 5 MG PO DAILY Prescribed by: ALICIA NUNEZ on 10/10/19 1109 Atorvastatin Calcium 10 Mg Tablet, 10 MG PO HS, (Reported) Cefdinir 300 Mg Capsule, 300 MG PO BID Prescribed by: ALICIA NUNEZ on 10/10/19 1109 Cetirizine HCl 10 Mg Tablet, 10 MG PO DAILY, (Reported) Cholecalciferol (Vitamin D3) 50 Mcg Capsule, 150 MCG PO DAILY, (Reported) TAKES 2 (50MCG) CAPS DAILY Cyanocobalamin (Vitamin B-12) 500 Mcg Tablet, 1,000 MCG PO DAILY, (Reported) Cyclobenzaprine HCl 10 Mg Tablet, 10 MG PO BID, (Reported) Donepezil HCl 10 Mg Tablet, 10 MG PO HS, (Reported) Famotidine 20 Mg Tablet, 20 MG PO BID Prescribed by: ALICIA NUNEZ on 10/10/19 110 Ipratropium/Albuterol Sulfate 3 Ml Ampul.neb, 3 ML INH RTQ6HR Prescribed by: ALICIA NUNEZ on 10/10/19 1111 Metformin HCl 500 Mg Tablet, 500 MG PO BIDAC, (Reported) Methotrexate Sodium 2.5 Mg Tablet, 7.5 MG PO SUNDAY, (Reported) TAKES 3 (2.5MG) TO EQUAL 7.5MG ONCE WEEKLY ON SUNDAY Metoprolol Succinate 100 Mg Tab.er.24h, 100 MG PO BID Prescribed by: ALICIA NUNEZ on 10/10/19 110 Olanzapine 20 Mg Tablet, 20 MG PO HS, (Reported) Prednisone 20 Mg Tab, 20 MG PO BID Take 3 tabs(60mg)daily, decrease by 1/2 tab(10mg)daily. Prescribed by: ALICIA NUNEZ on 10/10/191108 Sucralfate 1 Gm Tablet, 1 GM PO TIDAC, (Reported) [Folic Acid] , 1 MG PO DAILY, (Reported) Patient Home Medication List Home Medication List Reviewed: Yes Review of Systems Review of Systems Constitutional: see HPI; No chills, No diaphoresis, No dizziness, No fever; malaise, weakness EENTM: no symptoms reported; No ear pain, No blurred vision, No double vision, No nose congestion, No throat pain Respiratory: see HPI; No cough; dyspnea on exertion (CHRONIC/STABLE); No phlegm; short of breath (CHRONIC /STABLE); No wheezing Cardiovascular: no symptoms reported; No chest pain, No edema, No palpitations, No syncope Gastrointestinal: no symptoms reported; No abdominal pain, No constipation, No diarrhea, No loss of appetite, No nausea, No vomiting Genitourinary: see HPI; No dysuria, No frequency; incontinence, nocturia Musculoskeletal: no symptoms reported; No back pain, No neck pain Skin: no symptoms reported Psychiatric/Neurological: See HPI; Denies Headache Hematologic/Lymphatic: No Symptoms Reported Immunological/Allergic: no symptoms reported Past Yhtsixt-Zdzxlz-Hmhvjp Hx Past Med/Social Hx: Reviewed and Corrections made Patient Social History Alcohol Use: Denies Use Recreational Drug Use: Yes (YEARS AGO) Smoking Status: Current Everyday Smoker (UP TO 4 PPD) Type Used: Cigarettes (UP TO 4 PPD) 2nd Hand Smoke Exposure: Yes Immunizations Up To Date Tetanus Booster (TDap): Unknown PED Vaccines UTD: No Date of Pneumonia Vaccine: Mar 11, 2011 Date of Influenza Vaccine: Feb 22, 2018 Seasonal Allergies Seasonal Allergies: No Past Medical History Surgeries: Yes (PILONIDAL CYST; SIGMOID COLECTOMY ; COLOSTOMY ) Abdominal, Appendectomy, Bowel Surgery, Breast, Section, Hysterectomy, Oophorectomy, Tracheostomy Respiratory: Yes (O2 AT 4L/NC CONTINUOUSLY;ARDS W/ VENT & TRACH DUE TO POST OP COMPLCATIONS) Chronic Bronchitis, COPD Currently Using CPAP: No Currently Using BIPAP: No Cardiac: Yes (SVT) Chronic Edema/Swelling, Coronary Artery Disease, High Cholesterol, Hypertension Neurological: Yes Dementia, Headaches /Migraines Reproductive Disorders: Yes (RIGHT BREAST BENING LUMP-REMOVED) Female 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, 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 Sexually Transmitted Disease: No HIV/AIDS: No Genitourinary: No Gastrointestinal: Yes Gastroesophageal Reflux, Hiatal Hernia, Ulcer Musculoskeletal: Yes (CHRONIC GENERALIZED PAIN ) Arthritis Endocrine: Yes Hypothyroidsim, Diabetes, Non-Insulin dep, Lupus HEENT: No Loss of Vision: Denies Hearing Impairment: Denies Cancer: No Psychosocial: Yes Anxiety, Bipolar, Personality Disorder, Depression Integumentary: Yes Psoriasis Blood Disorders: Yes (ANEMIA POST OP) Family Medical History Arthritis 19 FATHER 19 MOTHER Cardiovascular disease 19 FATHER Cataracts 19 MOTHER Completed stroke 19 MOTHER Dysphasia 19 FATHER FH: cirrhosis 19 MOTHER Glaucoma 19 MOTHER Hypercholesterolemia 19 FATHER Hypertension 19 FATHER 19 MOTHER Myocardial infarction 19 FATHER Osteoporosis 19 MOTHER No Family History of: AIDS Abdominal aortic aneurysm [place]'s disease Alcoholism Alzheimer's disease Aphasia Asthma Cancer of mouth Colon cancer Congenital disease Congenital heart disease Coronary thrombosis Cystic fibrosis Deafness or hearing loss Dementia Diabetes mellitus Drug abuse Fibrocystic disease of breast Gastroenteritis Headache disorder Infertility Kidney disease Neoplasm Not obtainable due to adoption Parkinson's disease Prostate cancer Psychosocial problem Respiratory disorder Seizure disorder Severe allergy Thyroid disease Tuberculosis Visual disorder GI Disease PSH: -SIGMOID AND COLON RESECTION WITH COLOSTOMY FOR PERFORATED DIVERTICULUM--COMPLICATED BY PERFORATION/ANASTAMOTIC LEAK 2009 -LATER TAKEDOWN OF COLOSTOMY -TRACHEOSTOMY AND LATER REMOVAL FOR ARDS DUE TO POST OP COMPLICATIONS FROM COLON RESECTION -ALSO HAD PEG TUBE PLACEMENT AND LATER REMOVAL DUE TO SAME POST OP COMPLICATIONS FROM COLON RESECTION -SPLENECTOMY-DUE TO COMPLICATIONS FROM COLON RESECTION, PER PT -HYSTERECTOMY-ONE OVARY REMOVED -CHOLECYSTECTOMY -PILONIDAL CYST/ABSCESS REMOVED -APPENDECTOMY -BENIGN RIGHT BREAST BIOPSY/LUMPECTOMY - -TIBIAL PLATEAU FRACTURE Physical Exam Vital Signs Vital Signs - First Documented 10/07/19 10/07/19 07:07 13:55 Temp 37.0 Pulse 100 Resp 18 B/P (MAP) 194/126 (148) Pulse Ox 100 O2 Delivery Room Air O2 Flow Rate 2.00 FiO2 36 Capillary Refill : Height, Weight, BMI Height: 5'7.50" Weight: 200lbs. 1.0oz. 90.970040vl; 37.00 BMI Method:Stated General Appearance: No Apparent Distress, Obese, Other (FLAT AFFECT. KEEPS EYES CLOSED. 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 Norm as Tested Skin: Normal Color, Warm/Dry, Rash (EXTENSIVE PSORIATIC PLAQUES OVER MOST OF BODY) Focused Exam Lactate Level Lactic Acid Level Progress/Results/Core Measures Suspected Sepsis SIRS Temperature: Pulse: Respiratory Rate: Laboratory Tests 10/09/19 05:17: White Blood Count 18.9H 10/10/19 05:53: White Blood Count 18.5H Blood Pressure / Mean: Laboratory Tests 10/09/19 05:17: Creatinine 1.05, Platelet Count 502H 10/10/19 05:53: Platelet Count 415H Results/Orders Lab Results Laboratory Tests Test 10/10/19 05:53 Range/Units White Blood Count 18.5 H 4.3-11.0 10^3/uL Red Blood Count 4.64 4.35-5.85 10^6/uL Hemoglobin 10.8 L 11.5-16.0 G/DL Hematocrit 38 35-52 % Mean Corpuscular Volume 82 80-99 FL Mean Corpuscular Hemoglobin 23 L 25-34 PG Mean Corpuscular Hemoglobin Concent 28 L 32-36 G/DL Red Cell Distribution Width 19.7 H 10.0-14.5 % Platelet Count 415 H 130-400 10^3/uL Mean Platelet Volume 10.4 7.4-10.4 FL Neutrophils (%) (Auto) 58 42-75 % Lymphocytes (%) (Auto) 31 12-44 % Monocytes (%) (Auto) 10 0-12 % Eosinophils (%) (Auto) 0 0-10 % Basophils (%) (Auto) 0 0-10 % Neutrophils # (Auto) 10.8 H 1.8-7.8 X 10^3 Lymphocytes # (Auto) 5.7 H 1.0-4.0 X 10^3 Monocytes # (Auto) 1.9 H 0.0-1.0 X 10^3 Eosinophils # (Auto) 0.0 0.0-0.3 10^3/uL Basophils # (Auto) 0.0 0.0-0.1 10^3/uL My Orders Medications Given in ED Vital Signs/I&O Capillary Refill : Progress Note : Progress Note PLACED ON BIPAP ON REVIEWING ABG RESULTS SIGNIFICANT IMPROVEMENT IN MENTATION ON BIPAP UNABLE TO OBTAIN REPEAT ABG'S BLOOD PRESSURE DOWN AT TIME OF ADMIT. UNEVENTFUL ER STAY ECG Initial ECG Impression Date: Oct 07, 2019 Initial ECG Impression Time: 21:20 Initial ECG Rate: 74 Initial ECG Rhythm: Normal Sinus Initial ECG Comparisson: Unchanged Diagnostic Imaging Comments CT HEAD--PER RADIOLOGIST REPORT AT 0824 FINDINGS: No hyperdense hemorrhage or space-occupying mass. No hydrocephalus or midline shift. No features of acute territorial infarct by CT. Periventricular white matter hypoattenuation is most compatible with chronic microvascular ischemic disease. Areas of superimposed acute ischemia cannot be excluded on this exam. No acute calvarial abnormality. Paranasal sinuses and mastoid air cells are clear. IMPRESSION: 1. No acute intracranial process by CT. CXR--PER RADIOLOGIST REPORT AT 0825 MPRESSION: Borderline heart size with mild central vascular prominence and marked COPD changes. There are chronic appearing increased basilar markings. There are old right-sided rib fractures. CT ANGIOGRAM/ HEAD/NECK--PER RADIOLOGIST VIA PHONE AT 0947 NO ACUTE PROCESS, NO LARGE VESSEL OCCLUSION. Reviewed: Reviewed by Me, Discussed w/Radiologist, Reviewed/Discussed Departure Communication (Admissions) 1049--ATTEMPTING TO CONTACT DR. NUNEZ, COVERING FOR DR. MEI 1102--CALLED DR. NUNEZ'S OFFICE. MESSAGE LEFT 1114--SPOKE WITH DR. NUNEZ, ACCEPTS PT FOR ADMIT. Impression Primary Impression: Acute on chronic respiratory failure Additional Impressions: Generalized weakness Carbon dioxide narcosis Hypertensive urgency NIDDM Dementia Morbid obesity Disposition: ADMITTED INPATIENT Condition: Improved Admissions Decision to Admit Reason: Admit from ER (General) Decision to Admit/Date: Oct 07, 2019 Time/Decision to Admit Time: 11:15 Departure-Patient Inst. Referrals: JOCELYNE MEI DO (PCP/Family) Primary Care Physician Scripts Ipratropium/Albuterol Sulfate (Iprat-Albut 0.5-3(2.5) mg/3 ml) 3 Ml Ampul.neb 3 ML INH RTQ6HR, #50 INHALER Prov: ALICIA NUNEZ DO 10/10/19 Prednisone (Prednisone) 20 Mg Tab 20 MG PO BID, #14 TAB Take 3 tabs(60mg)daily, decrease by 1/2 tab(10mg)daily. Prov: ALICIA NUNEZ DO 10/10/19 Cefdinir (Cefdinir) 300 Mg Capsule 300 MG PO BID, #14 CAP Prov: ALICIA NUNEZ DO 10/10/19 Amlodipine Besylate (Amlodipine Besylate) 5 Mg Tablet 5 MG PO DAILY, #30 TAB Prov: ALICIA NUNEZ DO 10/10/19 Famotidine (Acid Smoke Jumper (FAMOTIDINE)) 20 Mg Tablet 20 MG PO BID, #60 TAB Prov: ALICIA NUNEZ DO 10/10/19 Metoprolol Succinate (Metoprolol Succinate) 100 Mg Tab.er.24h 100 MG PO BID, #60 TAB Prov: ALICIA NUNEZ DO 10/10/19 SEKOU MAK DO Oct 07, 2019 07:33
[2019-10-07 07:39] LABS: BASOPHILS % (AUTO) 0 % (0-10); EOSINOPHILS # (AUTO) 0.4 10^3/uL (0.0-0.3); EOSINOPHILS % (AUTO) 4 % (0-10); HEMATOCRIT 39 % (35-52); HEMOGLOBIN 10.5 G/DL (11.5-16.0); LYMPHOCYTES # (AUTO) 1.9 X 10^3 (1.0-4.0); LYMPHOCYTES % (AUTO) 18 % (12-44); MEAN CORPUSCULAR HEMOGLOBIN 23 PG (25-34); MEAN CORPUSCULAR HGB CONC 27 G/DL (32-36); MEAN CORPUSCULAR VOLUME 86 FL (80-99); MEAN PLATELET VOLUME 9.6 FL (7.4-10.4); MONOCYTES # (AUTO) 0.9 X 10^3 (0.0-1.0); MONOCYTES % (AUTO) 8 % (0-12); NEUTROPHILS # (AUTO) 7.3 X 10^3 (1.8-7.8); NEUTROPHILS % (AUTO) 69 % (42-75); PLATELET COUNT 351 10^3/uL (130-400); RED CELL DISTRIBUTION WIDTH 18.8 % (10.0-14.5); WHITE BLOOD COUNT 10.6 10^3/uL (4.3-11.0)
--- NOTE | 2019-10-07 07:40 | NUR ---
ABG DRAWN BY RT.
[2019-10-07 07:51] LABS: INR 0.9 (0.8-1.4); PROTHROMBIN TIME PATIENT 12.5 SEC (12.2-14.7)
--- NOTE | 2019-10-07 08:16 | Diagnostic Imaging Report ---
INDICATION: Weakness and possible stroke. Frontal chest obtained 0806 a.m. and compared to 08/14/2018. Heart is borderline in size. There is mild central vascular prominence. There are COPD changes with severe biapical emphysematous change. There are increased basilar markings which appear chronic. There are old right-sided rib fractures. IMPRESSION: Borderline heart size with mild central vascular prominence and marked COPD changes. There are chronic appearing increased basilar markings. There are old right-sided rib fractures. Dictated by: Dictated on workstation # [id number]
--- NOTE | 2019-10-07 08:17 | Diagnostic Imaging Report ---
PROCEDURE: CT head wo r/o stroke. TECHNIQUE: Multiple contiguous axial images were obtained through the brain without the use of intravenous contrast. Auto Exposure Controls were utilized during the CT exam to meet ALARA standards for radiation dose reduction. INDICATION: Generalized weakness. COMPARISON: None available. FINDINGS: No hyperdense hemorrhage or space-occupying mass. No hydrocephalus or midline shift. No features of acute territorial infarct by CT. Periventricular white matter hypoattenuation is most compatible with chronic microvascular ischemic disease. Areas of superimposed acute ischemia cannot be excluded on this exam. No acute calvarial abnormality. Paranasal sinuses and mastoid air cells are clear. IMPRESSION: 1. No acute intracranial process by CT. Dictated by: Dictated on workstation # [id number]
[2019-10-07 08:28] LABS: ALANINE AMINOTRANSFERASE 10 U/L (0-55); ALBUMIN 3.9 GM/DL (3.2-4.5); ALKALINE PHOSPHATASE 79 U/L (40-136); AMYLASE 50 U/L (25-125); BILIRUBIN,TOTAL 0.2 MG/DL (0.1-1.0); BUN/CREATININE RATIO 15; CALCIUM 9.4 MG/DL (8.5-10.1); CARBON DIOXIDE 35 MMOL/L (21-32); CHLORIDE 98 MMOL/L (98-107); CREATINE KINASE 35 U/L (29-168); CREATININE SERUM 0.78 MG/DL (0.60-1.30); GFR ESTIMATED > 60; GLUCOSE 101 MG/DL (70-105); LIPASE 23 U/L (8-78); POTASSIUM 4.8 MMOL/L (3.6-5.0); SODIUM 144 MMOL/L (135-145); TOTAL PROTEIN 6.8 GM/DL (6.4-8.2)
[2019-10-07 08:35] LABS: ABG BASE EXCESS 12.6 MMOL/L (-2.5-2.5); ABG OXYGEN SATURATION 98 % (94-100); ABG PO2 106 MMHG (79-93); ABG TCO2 41.2 MMOL/L (21.0-31.0); ALLENS TEST YES-POS; INSPIRED O2 4L; VENTILATOR NO
[2019-10-07 08:36] LABS: ABG PH 7.33 (7.37-7.43); PATIENT TEMP 36.9
[2019-10-07 08:37] LABS: ABG PCO2 75 MMHG (35-45)
[2019-10-07] MEDS ORDERED: NS 100 ML (IVPB) BAG IV ONE (08:45)
[2019-10-07] MEDS ORDERED: IOHEXOL 350 MG/ML 100 ML (OMNIPAQUE 350) VIAL IV ONE (08:45)
[2019-10-07] MEDS ORDERED: HOLD METFORMIN - RECEIVED CONTRAST 20 ML VIAL IV SCH (08:45)
[2019-10-07 08:51] LABS: CREATINE KINASE MB 1.3 NG/ML (<6.6); TSH (THYROID ANALYZER) 1.25 UIU/ML (0.35-4.94)
--- NOTE | 2019-10-07 08:53 | NUR ---
RT CALLED BY DR MAK TO PLACE ON BI TERELL,
--- NOTE | 2019-10-07 09:05 | NUR ---
UNABLE TO PLACE ON BI PAP IF GOING TO CT UNABLE TO DO TEST WHILE PATIENT IS ON BI PAP. TO CT. Addendum: 10/07/19 at [address] PER CART FOR ANGIO.
--- NOTE | 2019-10-07 09:33 | NUR ---
BACK FROM CT RT CALLEAD TO PLACE ON BI PAP
--- NOTE | 2019-10-07 09:47 | NUR ---
RT HERE TO PLACE ON BI PAP
--- NOTE | 2019-10-07 09:54 | Diagnostic Imaging Report ---
CLINICAL INDICATION: Patient with weakness all over. EXAMS: 1. Head CT with and without IV contrast. Auto Exposure Controls were utilized during the CT exam to meet ALARA standards for radiation dose reduction. 2. CT angiogram of the head and neck performed with 100 cc of Omnipaque 350 IV contrast. Sagittal and coronal MIP reformations were created for better visualization of vascular anatomy. COMPARISON: Head CT without contrast dated 10/07/[address] without contrast dated 05/21/2016. FINDINGS: HEAD CT: There is skull streak artifact which obscures portions of the brainstem, posterior fossa, and portions of the brain near the skull base. There is no evidence of acute cerebral infarct, intracranial hemorrhage, or gross mass effect. There is no abnormal IV contrast enhancement. The brain parenchymal volume appears appropriate for patient's age. Stable focal, patchy, and confluent areas of low-attenuation white matter changes involving both cerebral hemispheres, likely representing chronic small vessel ischemic disease and mild leukoaraiosis. There is normal anand-white matter distinction. There is no significant midline shift or herniation. There is no evidence of hydrocephalus. The basal cisterns are unremarkable. The skull, extracranial soft tissue, and orbits are unremarkable. The paranasal sinuses are unremarkable. The temporal bones show no significant abnormality. CT ANGIOGRAM: Of note, the proximal aortic arch is imaged. There is dense contrast bolus within the left subclavian vein and left innominate vein which causes streak artifact obscuring the adjacent proximal great vessels. A three-vessel aortic arch is seen. Besides the areas of streak and motion artifact, the brachiocephalic artery, bilateral subclavian arteries, bilateral CCA, bilateral cervical ICA, and bilateral ECA are patent as visualized. The petrous and cavernous portions of the bilateral ICA are patent. The bilateral cervical vertebral arteries are patent as visualized. A dominant cervical right vertebral artery is noted. The intradural left vertebral artery ends in PICA. The basilar artery, bilateral SCA, and bilateral rack maker are patent. A left CUSTOMER EXPERIENCE STRATEGIST is noted with a very small caliber left P1 CUSTOMER EXPERIENCE STRATEGIST noted. The bilateral ACAs and their distal branches are patent. The bilateral MCAs and their distal branches are patent. The dural venous sinuses are patent as visualized. The neck soft tissue structures are unremarkable. Pleural and parenchymal calcification with scarring is seen in the right lung apex. Emphysematous lung disease is noted. There is mild cervical spine facet arthropathy. IMPRESSION: 1. There is no evidence of an acute intracranial process. There is no abnormal IV contrast enhancement. 2. CT angiogram of the head and neck shows no significant stenosis, vascular malformation, aneurysm, or dissection. 3. There is brain parenchymal chronic small vessel ischemic disease and leukoaraiosis. 4. Emphysematous lung disease with calcification and scarring in the right lung apex. 5. The results of this report were discussed with Dr. Elina Swain via the telephone on 10/07/2019 at 0945 hours. Dictated by: Dictated on workstation # [id number]
--- NOTE | 2019-10-07 10:01 | NUR ---
CALLED AND LT DAUGHTER KNOW SHE IS HERE AND UPDATE PER PATIENT REQUEST
[2019-10-07 10:18] LABS: BILIRUBIN,URINE NEGATIVE (NEGATIVE); CLARITY,URINE CLEAR; COLOR,URINE YELLOW; GLUCOSE, URINE (UA) NEGATIVE (NEGATIVE); KETONES,URINE NEGATIVE (NEGATIVE); LEUKOCYTE ESTERASE ,URINE NEGATIVE (NEGATIVE); NITRITE,URINE NEGATIVE (NEGATIVE); PH,URINE 8.5 (5-9); PROTEIN,URINE NEGATIVE (NEGATIVE)
[2019-10-07 10:26] LABS: AMORPHOUS SEDIMENT,UR FEW AMOR PHOSPHATE /LPF; BACTERIA,URINE TRACE /HPF; SQUAMOUS EPITHELIAL CELL,UR RARE /HPF; WBC,URINE RARE /HPF
[2019-10-07 10:29] LABS: AMPHETAMINE SCREEN, URINE NEGATIVE (NEGATIVE); BARBITURATE SCREEN URINE NEGATIVE (NEGATIVE); BENZODIAZEPINES SCREEN URINE NEGATIVE (NEGATIVE); CANNABINOID SCREEN, URINE NEGATIVE (NEGATIVE); COCAINE SCREEN URINE NEGATIVE (NEGATIVE); METHADONE STAT NEGATIVE (NEGATIVE); METHAMPHETAMINE SCREEN URINE S NEGATIVE (NEGATIVE); OPIATE SCREEN URINE NEGATIVE (NEGATIVE); OXYCODONE STAT NEGATIVE (NEGATIVE); PROPOXYPHENE STAT NEGATIVE (NEGATIVE); TRICYCLIC ANTIDEPRESSANTS SCRE NEGATIVE (NEGATIVE)
[2019-10-07] MEDS ORDERED: methylPREDNISolone 125 MG (Solu-MEDROL) VIAL IVP ONE (11:45)
--- NOTE | 2019-10-07 12:37 | NUR ---
CALEB ANDERSEN admitted to room 406-1, with an admitting diagnosis of SOB, on 10/07/19 from ER via wheel chair, accompanied by staff .CALEB ANDERSEN introduced to surroundings, call light, bed controls, phone, TV, temperature control, lights, meal times, smoking policy, visitor policy, side rail policy, bathrooms and showers. Patient Rights given to patient in the handbook. CALEB ANDERSEN verbalizes understanding that [facility] is not responsible for the loss or damage to any personal effects or valuables that are kept in the patients posession during their hospitalization. The following Patient Care Plans and discharge were discussed with the patient. CALEB ANDERSEN verbalizes understanding of Interdisciplinary Patient Education. Patient was informed about the Rapid Response Team and its purpose.
[2019-10-07] MEDS ORDERED: OLAN20TA34 PO (13:15)
[2019-10-07] MEDS ORDERED: METF-397 PO (13:15)
[2019-10-07] MEDS ORDERED: folic acid PO (13:15)
[2019-10-07] MEDS ORDERED: FOLIC ACID PO (13:18)
[2019-10-07] MEDS ORDERED: CHOL20002 PO (13:18)
[2019-10-07] MEDS ORDERED: ACET-2650 PO (13:19)
[2019-10-07] MEDS: LABETALOL HCL 20 MG/4 ML VIAL IV PRN (13:20)
--- NOTE | 2019-10-07 13:20 | NUR ---
SPOKE WITH PT (SHE HAD HER MEDICATIONS WITH HER) TO COMPLETE THE MED REC THE FOLLOWING ARE FILL DATES FROM [facility]: 07-24-2019 METFORMIN 500MG #180/90DS 08-08-2019 DONEPEZIL 10MG #60/60DS 09-04-2019 CYCLOBENZAPRINE 10MG #60/30DS 09-15-2019 OLANZAPINE 20MG #30/30DS 09-20-2019 FAMOTIDINE 20MG #30/30DS 09-22-2019 FOLIC ACID 1MG #30/30DS 09-22-2019 ATORVASTATIN 10MG #30/30DS 09-25-2019 CARAFATE 1GM #90/30DS 10-04-2019 METOPROLOL SUCC 100MG #30/30DS PT ALSO HAD A ZOFRAN IN A BAGGIE WITH A PHARMERICA LABEL ON IT- THE RX WAS DATED , DUE TO THAT REASON I DID NOT INCLUDE IT ON THE MED REC OTC MEDS: ZYRTEC VIT B12 VIT D TYLENOL Addendum: 10/07/19 at 1350 by CHAYO JAMES CPhT PT ALSO TAKES METHOTREXATE 2.5MG ON TUESDAYS- LAST FILLED 09-17-2019 #12. PT SAYS SHE DID NOT TAKE THIS TODAY (AND SHE DID NOT BRING IT WITH HER) BUT WOULD LIKE TO RECEIVE HER DOSE WHILE SHES HERE
[2019-10-07] MEDS ORDERED: METH2.5T PO (13:48)
[2019-10-07] MEDS ORDERED: RT-ALBUTEROL/IPRATROPIUM 3 ML (DUONEB) VIAL INH PRN (14:30)
[2019-10-07] MEDS: hydrALAZINE (APESOLINE) 20 MG/ML VIAL IV PRN ×2 (16:35→23:44)
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
[2019-10-07] MEDS: methylPREDNISolone 125 MG (Solu-MEDROL) VIAL IVP SCH ×2 (18:13→23:41)
[2019-10-07] MEDS: ENOXAPARIN 40 MG/0.4 ML (LOVENOX) SYR SC SCH (18:14)
[2019-10-07] MEDS: SUCRALFATE 1 GM (CARAFATE) TAB PO SCH (18:20)
[2019-10-07] MEDS: RT-ALBUTEROL/IPRATROPIUM 3 ML (DUONEB) VIAL INH SCH ×2 (18:31→21:33)
[2019-10-07] MEDS: OLANZapine 5 MG (ZyPREXA) TAB PO SCH (20:13)
[2019-10-07] MEDS: DONEPEZIL 10 MG (ARICEPT) TAB PO SCH (20:13)
[2019-10-07] MEDS: FAMOTIDINE 20MG/2ML IV (PEPCID) IVP SCH (20:13)
[2019-10-07] MEDS ORDERED: meTOprolol SUCCINATE 100 MG (TOPROL XL) TAB PO SCH (21:00)
--- NOTE | 2019-10-07 23:21 | NUR ---
PT COMPLAINS OF PAIN, DR NUNEZ CALLED, NEW ORDERS RECEIVED, SEE ORDER HX
[2019-10-07] MEDS ORDERED: IBUPROFEN 600 MG (MOTRIN) TAB PO PRN (23:30)
[2019-10-07] MEDS: ACETAMINOPHEN 325 MG TABLET PO PRN (23:42)
[2019-10-08] MEDS: RT-ALBUTEROL/IPRATROPIUM 3 ML (DUONEB) VIAL INH SCH ×5 (02:00→22:24)
[2019-10-08 04:20] VITALS: BP 173/69
--- NOTE | 2019-10-08 04:43 | Pulmonary Consultation ---
History of Present Illness History of Present Illness Date Seen by Provider: Oct 08, 2019 Time Seen by Provider: 04:38 Date of Admission History of Present Illness 59yo with hx of oxygen dependent COPD presented to ED secondary to worsening weakness upon waking up discovering she wet the bed. Pt was found to have respiratory distress while in the ED. She was placed on BiPAP and admitted to 4th floor for close observation. I am consulted for pulmonary management. Allergies and Home Medications Allergies Coded Allergies: clindamycin (Unverified Allergy, Mild, HIVES, 11/21/09) meperidine (Unverified Allergy, Mild, HAS RECEIVED FENTANYL IN THE PAST, 08/11/09) morphine (Unverified Allergy, Mild, 11/21/09) doxycycline (Verified Allergy, Unknown, 06/14/19) codeine (Verified Adverse Reaction, Unknown, NAUSEA, 11/21/09) Home Medications Acetaminophen 650 Mg Tablet.er, 1,300 MG PO Q8H PRN for PAIN-MILD (1-4), (Reported) Atorvastatin Calcium 10 Mg Tablet, 10 MG PO HS, (Reported) Cetirizine HCl 10 Mg Tablet, 10 MG PO DAILY, (Reported) Cholecalciferol (Vitamin D3) 50 Mcg Capsule, 150 MCG PO DAILY, (Reported) TAKES 2 (50MCG) CAPS DAILY Cyanocobalamin (Vitamin B-12) 500 Mcg Tablet, 1,000 MCG PO DAILY, (Reported) Cyclobenzaprine HCl 10 Mg Tablet, 10 MG PO BID, (Reported) Donepezil HCl 10 Mg Tablet, 10 MG PO HS, (Reported) Famotidine 20 Mg Tablet, 20 MG PO DAILY, (Reported) Metformin HCl 500 Mg Tablet, 500 MG PO BIDAC, (Reported) Methotrexate Sodium 2.5 Mg Tablet, 7.5 MG PO SUNDAY, (Reported) TAKES 3 (2.5MG) TO EQUAL 7.5MG ONCE WEEKLY ON SUNDAY Metoprolol Succinate 100 Mg Tab.er.24h, 100 MG PO HS, (Reported) Olanzapine 20 Mg Tablet, 20 MG PO HS, (Reported) Sucralfate 1 Gm Tablet, 1 GM PO TIDAC, (Reported) [Folic Acid] , 1 MG PO DAILY, (Reported) Past Ujbfygk-Mzmvna-Zxhcyc Hx Past Med/Social Hx: Reviewed Nursing Past Med/Soc Hx Patient Social History Alcohol Use: Denies Use Recreational Drug Use: No (20 YRS AGO) Smoking Status: Former Smoker Type Used: Cigarettes Former Smoker, Quit: Jun 19, 2018 2nd Hand Smoke Exposure: Yes Recent Foreign Travel: No Contact w/Someone Who Travel: No Recent Infectious Disease Expo: No Recent Hopitalizations: Yes Immunizations Up To Date Tetanus Booster (TDap): Unknown PED Vaccines UTD: No Date of Pneumonia Vaccine: Mar 11, 2011 Date of Influenza Vaccine: Feb 22, 2018 Seasonal Allergies Seasonal Allergies: No Past Medical History Surgeries: Yes (PILONIDAL CYST, segmoid Colectomy 09/29/09, BOWEL RESECTION, COLOSTOMY ) Appendectomy, Bowel Surgery, Breast, Section, Hysterectomy, Oophorectomy, Tracheostomy Respiratory: Yes Chronic Bronchitis, COPD Currently Using CPAP: No Currently Using BIPAP: No Cardiac: Yes (SVT) Chronic Edema/Swelling, Coronary Artery Disease, High Cholesterol, Hypertension Neurological: Yes Headaches /Migraines Reproductive Disorders: Yes (RIGHT BREAST BENING LUMP-REMOVED) Female Reproductive Disorders: Denies Sexually Transmitted Disease: No HIV/AIDS: No Genitourinary: No Gastrointestinal: Yes Gastroesophageal Reflux, Hiatal Hernia, Ulcer Musculoskeletal: Yes (CHRONIC GENERALIZED PAIN ) Arthritis Endocrine: Yes Hypothyroidsim, Diabetes, Non-Insulin dep, Lupus Are Your Blood Sugars Over 250: No HEENT: No Loss of Vision: Denies Hearing Impairment: Denies Cancer: No Psychosocial: Yes Anxiety, Bipolar, Personality Disorder, Depression Integumentary: Yes Psoriasis Blood Disorders: Yes (ANEMIA POST OP) Family Medical History Arthritis 19 FATHER 19 MOTHER Cardiovascular disease 19 FATHER Cataracts 19 MOTHER Completed stroke 19 MOTHER Dysphasia 19 FATHER FH: cirrhosis 19 MOTHER Glaucoma 19 MOTHER Hypercholesterolemia 19 FATHER Hypertension 19 FATHER 19 MOTHER Myocardial infarction 19 FATHER Osteoporosis 19 MOTHER No Family History of: AIDS Abdominal aortic aneurysm [place]'s disease Alcoholism Alzheimer's disease Aphasia Asthma Cancer of mouth Colon cancer Congenital disease Congenital heart disease Coronary thrombosis Cystic fibrosis Deafness or hearing loss Dementia Diabetes mellitus Drug abuse Fibrocystic disease of breast Gastroenteritis Headache disorder Infertility Kidney disease Neoplasm Not obtainable due to adoption Parkinson's disease Prostate cancer Psychosocial problem Respiratory disorder Seizure disorder Severe allergy Thyroid disease Tuberculosis Visual disorder GI Disease Review of Systems Time Seen by Provider: 04:41 Sepsis Event Evaluation Height, Weight, BMI Height: 5'7.50" Weight: 200lbs. 1.0oz. 90.305776el; 42.25 BMI Method:Stated Exam Exam Vital Signs Date Time Temp Pulse Resp B/P (MAP) Pulse Ox O2 Delivery O2 Flow Rate FiO2 10/08/19 02:01 90 19 97 30.00 10/08/19 01:00 92 10/07/19 23:13 36.5 80 18 194/90 (124) 98 NIV Bilevel 30.00 10/07/19 21:33 100 20 97 30.00 10/07/19 20:20 NIV Bilevel 10/07/19 20:16 36.3 119 32 171/118 (135) 98 NIV Bilevel 10/07/19 19:00 117 10/07/19 18:31 115 26 98 30.00 10/07/19 16:48 36.2 85 20 112/70 95 Room Air 10/07/19 15:50 36.0 93 24 192/78 (116) 94 NIV Bilevel 10/07/19 15:18 114 27 98 30.00 10/07/19 14:31 102 10/07/19 13:55 37.0 100 100 36 10/07/19 13:08 36.6 94 18 188/115 99 NIV Bilevel 10/07/19 12:53 100 NIV Bilevel 4.00 10/07/19 12:20 97 18 184/113 100 NIV Bilevel 10/07/19 10:33 114 20 98 40.00 10/07/19 09:44 82 18 146/94 (111) 94 Room Air 10/07/19 08:56 81 18 175/99 (124) 98 Nasal Cannula 4.00 10/07/19 07:07 100 Nasal Cannula 2.00 10/07/19 07:07 37.0 100 18 194/126 (148) 100 Room Air I & O 10/08/19 07:00 Intake Total 780 ml Output Total 1150 ml Balance -370 ml Height & Weight Height: 5'7.50" Weight: 200lbs. 1.0oz. 90.434843ac; 42.25 BMI Method:Stated General Appearance: Moderate Distress (on BiPAP) HEENT: Other (on BIPAP) Neck: Supple Respiratory: Decreased Breath Sounds Cardiovascular: Systolic Murmur, Gallop/S4, Tachycardia Capillary Refill: Less Than 3 Seconds Extremity: Non Tender, No Calf Tenderness, No Pedal Edema Neurologic/Psychiatric: Alert, Oriented x3 Skin: Normal Color, Warm/Dry, Other (psoriatic plaques to legs/arms/torso) Lymphatic: No Adenopathy Results Lab Laboratory Tests 10/07/19 07:20 Assessment/Plan Assessment/Plan Acute on chronic respiratory failure COPDAE -Solumedrol - change to 40 Q 6 -Add pulmicort -Duonebs -BiPAP PRN -repeat ABG -Repeat labs Morbid obesity Severe oxygen dependent COPD with AE -SVNS, -Oxygen dementia Depression CAD HX of bipolar/anxiety MERCEDES GARZA DO Oct 08, 2019 04:43
[2019-10-08 05:13] LABS: BASOPHILS % (AUTO) 0 % (0-10); EOSINOPHILS % (AUTO) 0 % (0-10); HEMATOCRIT 38 % (35-52); HEMOGLOBIN 10.9 G/DL (11.5-16.0); LYMPHOCYTES # (AUTO) 1.2 X 10^3 (1.0-4.0); LYMPHOCYTES % (AUTO) 10 % (12-44); MEAN CORPUSCULAR HEMOGLOBIN 24 PG (25-34); MEAN CORPUSCULAR HGB CONC 29 G/DL (32-36); MEAN CORPUSCULAR VOLUME 81 FL (80-99); MEAN PLATELET VOLUME 10.5 FL (7.4-10.4); MONOCYTES # (AUTO) 0.2 X 10^3 (0.0-1.0); MONOCYTES % (AUTO) 2 % (0-12); NEUTROPHILS # (AUTO) 10.6 X 10^3 (1.8-7.8); NEUTROPHILS % (AUTO) 88 % (42-75); PLATELET COUNT 431 10^3/uL (130-400); RED CELL DISTRIBUTION WIDTH 18.9 % (10.0-14.5)
[2019-10-08] MEDS: ENOXAPARIN 40 MG/0.4 ML (LOVENOX) SYR SC SCH ×2 (05:27→18:28)
[2019-10-08] MEDS: methylPREDNISolone 40 MG/ML (Solu-MEDROL) VIAL IV SCH ×3 (05:27→18:28)
[2019-10-08 05:37] LABS: ALANINE AMINOTRANSFERASE 9 U/L (0-55); ALBUMIN 3.9 GM/DL (3.2-4.5); ALKALINE PHOSPHATASE 84 U/L (40-136); BILIRUBIN,TOTAL 0.3 MG/DL (0.1-1.0); BUN/CREATININE RATIO 21; CALCIUM 9.6 MG/DL (8.5-10.1); CARBON DIOXIDE 28 MMOL/L (21-32); CHLORIDE 99 MMOL/L (98-107); CREATININE SERUM 0.92 MG/DL (0.60-1.30); GFR ESTIMATED > 60; GLUCOSE 158 MG/DL (70-105); POTASSIUM 3.9 MMOL/L (3.6-5.0); SODIUM 142 MMOL/L (135-145)
[2019-10-08 05:41] LABS: BAND NEUTROPHILS 2 %; LYMPHOCYTES % (MANUAL) 10 %; MONOCYTES % (MANUAL) 3 %; NEUTROPHILS % (MANUAL) 85 %
[2019-10-08 05:42] LABS: ANISOCYTOSIS SLIGHT; POIKILOCYTOSIS SLIGHT
[2019-10-08 05:45] LABS: STOMATOCYTES SLIGHT
[2019-10-08] MEDS: RT-BUDESONIDE NEBS 0.5 MG/2ML (PULMICORT) AMP INH SCH ×2 (06:38→18:36)
[2019-10-08 06:57] LABS: ABG BASE EXCESS 8.2 MMOL/L (-2.5-2.5); ABG OXYGEN SATURATION 93 % (94-100); ABG PCO2 39 MMHG (35-45); ABG PH 7.51 (7.37-7.43); ABG PO2 56 MMHG (79-93); ABG TCO2 33.1 MMOL/L (21.0-31.0)
[2019-10-08 07:00] LABS: ALLENS TEST POSITIVE; INSPIRED O2 30; VENTILATOR NO
[2019-10-08] MEDS: SUCRALFATE 1 GM (CARAFATE) TAB PO SCH ×3 (07:25→18:28)
--- NOTE | 2019-10-08 07:53 | Diagnostic Imaging Report ---
HISTORY: COPD, respiratory failure COMPARISON: 10/07/2019 TECHNIQUE: Single frontal view the chest FINDINGS: There is significant eventration of the right hemidiaphragm which appears stable compared to 08/14/2018. There is chronic scarring in the right lung apex and calcifications in the right lung. There appear to be old right-sided rib fractures. No pleural effusion or pneumothorax is seen. Lung volumes appear large. The cardiac silhouette is stable in size. No new consolidation is seen. IMPRESSION: 1. Chronic findings in the lungs appear stable compared to 08/14/2018. No new consolidation is seen. Dictated by: Dictated on workstation # [id number]
[2019-10-08 08:00] VITALS: BP_SYST 184; BP_SYST 197; BP_DIAS 107; BP_DIAS 98
[2019-10-08] MEDS: FAMOTIDINE 20MG/2ML IV (PEPCID) IVP SCH ×2 (08:13→20:05)
[2019-10-08] MEDS: LABETALOL HCL 20 MG/4 ML VIAL IV PRN (08:14)
[2019-10-08 08:54] VITALS: BP 187/104
[2019-10-08] MEDS: meTOprolol SUCCINATE 100 MG (TOPROL XL) TAB PO SCH ×2 (09:45→20:05)
[2019-10-08] MEDS ORDERED: amLODIPine 5 MG (NORVASC) TAB PO NR (09:45)
[2019-10-08] MEDS: ACETAMINOPHEN 325 MG TABLET PO PRN (10:08)
--- NOTE | 2019-10-08 10:23 | NUR ---
Pt is [employer]. Bushel Worker provided encouragement and prayer.
--- NOTE | 2019-10-08 12:50 | Progress Note ---
Subjective Date Seen by a Provider: Oct 08, 2019 Time Seen by a Provider: 12:47 Subjective/Events-last exam Fwup acute on chronic respiratory failure, COPD exacerbation, Hypertensive Urgency, Dementia, Bipolar. Sitting up in bed. Now on NC. Still short of air but better. Focused Exam Lactate Level 10/07/19 08:10: Lactic Acid Level 1.47 Objective Exam Vital Signs Date Time Temp Pulse Resp B/P (MAP) Pulse Ox O2 Delivery O2 Flow Rate FiO2 10/08/19 10:32 85 19 97 30.00 10/08/19 08:54 92 187/104 (131) 10/08/19 08:12 105 10/08/19 08:00 101 197/107 (137) 10/08/19 08:00 37.2 101 20 184/98 (126) 94 Nasal Cannula 4.00 10/08/19 08:00 Nasal Cannula 4.00 10/08/19 06:52 96 Nasal Cannula 3.00 10/08/19 04:20 36.5 89 17 173/69 (103) 97 NIV Bilevel 30.00 10/08/19 02:01 90 19 97 30.00 10/08/19 01:00 92 10/07/19 23:13 36.5 80 18 194/90 (124) 98 NIV Bilevel 30.00 10/07/19 21:33 100 20 97 30.00 10/07/19 20:20 NIV Bilevel 10/07/19 20:16 36.3 119 32 171/118 (135) 98 NIV Bilevel 10/07/19 19:00 117 10/07/19 18:31 115 26 98 30.00 10/07/19 16:48 36.2 85 20 112/70 95 Room Air 10/07/19 15:50 36.0 93 24 192/78 (116) 94 NIV Bilevel 10/07/19 15:18 114 27 98 30.00 10/07/19 14:31 102 10/07/19 13:55 37.0 100 100 36 10/07/19 13:08 36.6 94 18 188/115 99 NIV Bilevel 10/07/19 12:53 100 NIV Bilevel 4.00 I & O 10/08/19 07:00 Intake Total 980 ml Output Total 1550 ml Balance -570 ml Capillary Refill : Less Than 3 SecondsLess Than 3 Seconds General Appearance: No Apparent Distress Neck: Supple Respiratory: Lungs Clear, Decreased Breath Sounds Cardiovascular: Regular Rate, Rhythm, Gallop/S4 Gastrointestinal: normal bowel sounds, non tender, soft Extremity: Non Tender, No Calf Tenderness, No Pedal Edema Neurologic/Psychiatric: Alert, Oriented x3 Skin: Other (scattered psoriatic plaques) Results Lab Laboratory Tests 10/08/19 04:39: White Blood Count 12.0H, Red Blood Count 4.62, Hemoglobin 10.9L, Hematocrit 38, Mean Corpuscular Volume 81, Mean Corpuscular Hemoglobin 24L, Mean Corpuscular Hemoglobin Concent 29L, Red Cell Distribution Width 18.9H, Platelet Count 431H, Mean Platelet Volume 10.5H, Neutrophils (%) (Auto) 88H, Lymphocytes (%) (Auto) 10L, Monocytes (%) (Auto) 2, Eosinophils (%) (Auto) 0, Basophils (%) (Auto) 0, Neutrophils # (Auto) 10.6H, Lymphocytes # (Auto) 1.2, Monocytes # (Auto) 0.2, Eosinophils # (Auto) 0.0, Basophils # (Auto) 0.0, Neutrophils % (Manual) 85, Lymphocytes % (Manual) 10, Monocytes % (Manual) 3, Band Neutrophils 2, Poikilocytosis SLIGHT, Anisocytosis SLIGHT, Stomatocytes SLIGHT, Schistocytes , Sodium Level 142, Potassium Level 3.9, Chloride Level 99, Carbon Dioxide Level 28, Anion Gap 15H, Blood Urea Nitrogen 19H, Creatinine 0.92, Estimat Glomerular Filtration Rate > 60, BUN/Creatinine Ratio 21, Glucose Level 158H, Calcium Level 9.6, Corrected Calcium 9.7, Total Bilirubin 0.3, Aspartate Amino Transf (AST/SGOT) 14, Alanine Aminotransferase (ALT/SGPT) 9, Alkaline Phosphatase 84, Total Protein 7.0, Albumin 3.9 10/08/19 06:43: Blood Gas Puncture Site LEFT RADIAL, Blood Gas Patient Temperature 37.0, Arterial Blood pH 7.51H, Arterial Blood Partial Pressure CO2 39, Arterial Blood Partial Pressure O2 56L, Arterial Blood HCO3 32H, Arterial Blood Total CO2 33.1H , Arterial Blood Oxygen Saturation 93L, Arterial Blood Base Excess 8.2H, Merlin Test POSITIVE, Blood Gas Ventilator Setting NO, Blood Gas Inspired Oxygen 30 Assessment/Plan Assessment/Plan Assess & Plan/Chief Complaint 1. Acute on Chronic Respiratory Failure--off BIPAP and down to NC 2. Severe Oxygen Dependent COPD with acute exacerbation--on SVNs and IV solumedrol 3. Hypertensive Urgency/Sinus Tachycardia--metoprolol dose increased and amlodopine added 4. Bipolar--Home meds restarted 5. Dementia--home meds restarted Clinical Quality Measures Admission Status Admission Dx 1. Acute on Chronic Respiratory Failure--admit on BIPAP 2. CO2 Narcosis--treat with BIPAP 3. Oxygen Dependant COPD with Acute Exacerbation--IV solumedrol and SVNS 4. Hypertensive Urgency--restart metoprolol and IV hydralazine prn 5. Tachycardia--restart metoprolol 6. GERD--start IV pepcid DVT/VTE Risk/Contraindication: Risk Factor Score Per Nursin RFS Level Per Nursing on Admit: 4+=Very High ALICIA NUNEZ DO Oct 08, 2019 12:50
[2019-10-08 15:26] VITALS: BP 175/96
[2019-10-08] MEDS: hydrALAZINE (APESOLINE) 20 MG/ML VIAL IV PRN (15:41)
[2019-10-08 20:01] VITALS: BP 163/80
[2019-10-08] MEDS: OLANZapine 5 MG (ZyPREXA) TAB PO SCH (20:05)
[2019-10-08] MEDS: DONEPEZIL 10 MG (ARICEPT) TAB PO SCH (20:05)
[2019-10-09] VITALS (9 sets, daily range): BP systolic 150–183; BP diastolic 70–90
[2019-10-09] MEDS: hydrALAZINE (APESOLINE) 20 MG/ML VIAL IV PRN (00:38)
[2019-10-09] MEDS: methylPREDNISolone 40 MG/ML (Solu-MEDROL) VIAL IV SCH (00:39)
[2019-10-09] MEDS: RT-ALBUTEROL/IPRATROPIUM 3 ML (DUONEB) VIAL INH SCH ×4 (02:33→14:33)
[2019-10-09] MEDS: ACETAMINOPHEN 325 MG TABLET PO PRN ×2 (04:07→21:27)
--- NOTE | 2019-10-09 05:32 | Pulmonary Progress Note ---
Subjective Time Seen by a Provider: 05:28 Subjective/Events-last exam Pt is doing much better. Sepsis Event Evaluation Height, Weight, BMI Height: 5'7.50" Weight: 200lbs. 1.0oz. [id number]; 42.25 BMI Method:Stated Focused Exam Lactate Level 10/07/19 08:10: Lactic Acid Level 1.47 Exam Exam Vital Signs Date Time Temp Pulse Resp B/P (MAP) Pulse Ox O2 Delivery O2 Flow Rate FiO2 10/09/19 04:03 36.8 80 18 158/80 (106) 95 Nasal Cannula 4.00 10/09/19 02:35 96 Nasal Cannula 5.00 10/09/19 01:00 86 10/09/19 00:38 36.6 80 18 180/90 (120) 94 Nasal Cannula 3.00 10/08/19 22:25 92 Nasal Cannula 5.00 10/08/19 20:01 36.5 91 20 163/80 (107) 95 Nasal Cannula 3.00 10/08/19 20:00 Nasal Cannula 3.00 10/08/19 19:00 95 10/08/19 18:36 105 24 97 30.00 10/08/19 15:26 36.5 90 24 175/96 (122) 98 Nasal Cannula 3.00 10/08/19 14:28 95 Nasal Cannula 3.00 10/08/19 12:42 105 10/08/19 10:32 85 19 97 30.00 10/08/19 08:54 92 187/104 (131) 10/08/19 08:12 105 10/08/19 08:00 101 197/107 (137) 10/08/19 08:00 37.2 101 20 184/98 (126) 94 Nasal Cannula 4.00 10/08/19 08:00 Nasal Cannula 4.00 10/08/19 06:52 96 Nasal Cannula 3.00 I & O 10/09/19 07:00 Intake Total 1600 ml Output Total 900 ml Balance 700 ml Height & Weight Height: 5'7.50" Weight: 200lbs. 1.0oz. [id number]; 42.25 BMI Method:Stated General Appearance: No Apparent Distress HEENT: Other (on BIPAP) Neck: Supple Respiratory: Lungs Clear, Decreased Breath Sounds Cardiovascular: Regular Rate, Rhythm, Gallop/S4 Capillary Refill: Less Than 3 Seconds Gastrointestinal: normal bowel sounds, non tender, soft Extremity: Non Tender, No Calf Tenderness, No Pedal Edema Neurologic/Psychiatric: Alert, Oriented x3 Skin: Other (scattered psoriatic plaques) Lymphatic: No Adenopathy Results Lab Laboratory Tests 10/07/19 07:20 10/08/19 04:39 Assessment/Plan Assessment/Plan COPDAE-- now much improved -Solumedrol - change to prednisone taper -Add Advair -Duonebs -Repeat labs Morbid obesity Severe oxygen dependent COPD with AE -SVNS, -Oxygen dementia Depression CAD HX of bipolar/anxiety MERCEDES GARZA DO Oct 09, 2019 05:32
[2019-10-09 05:47] LABS: HEMOGLOBIN 11.1 G/DL (11.5-16.0); MEAN PLATELET VOLUME 10.2 FL (7.4-10.4); RED CELL DISTRIBUTION WIDTH 19.8 % (10.0-14.5); WHITE BLOOD COUNT 18.9 10^3/uL (4.3-11.0)
[2019-10-09 06:08] LABS: CALCIUM 9.3 MG/DL (8.5-10.1); CREATININE SERUM 1.05 MG/DL (0.60-1.30); POTASSIUM 4.2 MMOL/L (3.6-5.0)
[2019-10-09] MEDS: SUCRALFATE 1 GM (CARAFATE) TAB PO SCH ×3 (06:29→16:35)
[2019-10-09] MEDS: ENOXAPARIN 40 MG/0.4 ML (LOVENOX) SYR SC SCH ×2 (06:29→16:36)
--- NOTE | 2019-10-09 06:42 | NUR ---
0635-this rn entered this pt room, pt had pulled out her SL said she didn't need it anymore. pt pulling at urinary catheter this rn advised pt to not do this & educated on both sl & catheter purpose. 0640-new sl inserted in left fa-pt tolerated well pt told this rn that she felt quite confused today.
[2019-10-09] MEDS: meTOprolol SUCCINATE 100 MG (TOPROL XL) TAB PO SCH ×2 (08:51→21:24)
[2019-10-09] MEDS: amLODIPine 5 MG (NORVASC) TAB PO SCH (08:51)
[2019-10-09] MEDS: ADVAIR HFA 115/21 MCG INHALER 8 GM IH SCH ×2 (08:54→21:49)
[2019-10-09] MEDS: predniSONE 10 MG TAB PO SCH (08:55)
[2019-10-09] MEDS: FAMOTIDINE 20MG/2ML IV (PEPCID) IVP SCH (08:56)
--- NOTE | 2019-10-09 12:24 | Progress Note ---
Subjective Date Seen by a Provider: Oct 09, 2019 Time Seen by a Provider: 12:22 Subjective/Events-last exam Fwup acute on chronic respiratory failure, COPD exacerbation, Hypertensive Urgency, Dementia, Bipolar. Sitting up in bed but states she has not been out of bed and would like therapies to get her out of bed and help her bathe. Focused Exam Lactate Level 10/07/19 08:10: Lactic Acid Level 1.47 Objective Exam Vital Signs Date Time Temp Pulse Resp B/P (MAP) Pulse Ox O2 Delivery O2 Flow Rate FiO2 10/09/19 10:37 37.1 88 94 40 10/09/19 10:12 158/78 (104) 10/09/19 09:48 94 Nasal Cannula 5.00 10/09/19 08:00 Nasal Cannula 5.00 10/09/19 08:00 37.1 88 20 180/76 (110) 97 Nasal Cannula 5.00 10/09/19 06:41 87 10/09/19 04:03 36.8 80 18 158/80 (106) 95 Nasal Cannula 4.00 10/09/19 02:35 96 Nasal Cannula 5.00 10/09/19 02:00 78 20 150/80 (103) 10/09/19 01:00 86 10/09/19 00:38 36.6 80 18 180/90 (120) 94 Nasal Cannula 3.00 10/08/19 22:25 92 Nasal Cannula 5.00 10/08/19 20:01 36.5 91 20 163/80 (107) 95 Nasal Cannula 3.00 10/08/19 20:00 Nasal Cannula 3.00 10/08/19 19:00 95 10/08/19 18:36 105 24 97 30.00 10/08/19 15:26 36.5 90 24 175/96 (122) 98 Nasal Cannula 3.00 10/08/19 14:28 95 Nasal Cannula 3.00 10/08/19 12:42 105 I & O 10/09/19 07:00 Intake Total 2080 ml Output Total 1500 ml Balance 580 ml Capillary Refill : Less Than 3 SecondsLess Than 3 Seconds General Appearance: No Apparent Distress Neck: Supple Respiratory: Lungs Clear, Decreased Breath Sounds Cardiovascular: Regular Rate, Rhythm Gastrointestinal: normal bowel sounds, non tender, soft Extremity: Non Tender, No Calf Tenderness, No Pedal Edema Neurologic/Psychiatric: Alert, Oriented x3 Results Lab Laboratory Tests 10/09/19 05:17: White Blood Count 18.9H, Red Blood Count 4.79, Hemoglobin 11.1L, Hematocrit 39, Mean Corpuscular Volume 80, Mean Corpuscular Hemoglobin 23L, Mean Corpuscular Hemoglobin Concent 29L, Red Cell Distribution Width 19.8H, Platelet Count 502H, Mean Platelet Volume 10.2, Sodium Level 141, Potassium Level 4.2, Chloride Level 100, Carbon Dioxide Level 28, Anion Gap 13, Blood Urea Nitrogen 31H, Creatinine 1.05, Estimat Glomerular Filtration Rate 54, BUN/Creatinine Ratio 30, Glucose Level 143H, Calcium Level 9.3 Microbiology 10/07/19 Blood Culture - Preliminary, Resulted No growth Assessment/Plan Assessment/Plan Assess & Plan/Chief Complaint 1. Acute on Chronic Respiratory Failure--using BIPAP q PM, on NC during day 2. Severe Oxygen Dependent COPD with acute exacerbation--on SVNs and IV solumedrol--will change to oral prednisone 3. Hypertensive Urgency/Sinus Tachycardia--metoprolol dose increased and amlodopine added which has helped 4. Bipolar--Home meds restarted 5. Dementia--home meds restarted 6. Weakness--PT for up to chair and OT for ADLs and bathing 7. Hematuria--culture urine and DC robles catheter 8. DC plans for tomorrow Clinical Quality Measures Admission Status Admission Dx 1. Acute on Chronic Respiratory Failure--admit on BIPAP 2. CO2 Narcosis--treat with BIPAP 3. Oxygen Dependant COPD with Acute Exacerbation--IV solumedrol and SVNS 4. Hypertensive Urgency--restart metoprolol and IV hydralazine prn 5. Tachycardia--restart metoprolol 6. GERD--start IV pepcid DVT/VTE Risk/Contraindication: Risk Factor Score Per Nursin RFS Level Per Nursing on Admit: 4+=Very High ALICIA NUNEZ DO Oct 09, 2019 12:24
--- NOTE | 2019-10-09 13:18 | NUR ---
RD ASSESSMENT PMHx: COPD; pneumonia; CAD; hypercholesterolemia; HTN; GERD; hiatal hernia; hypothyroidism; DM; possible AMS PT INTERACTION: Pt was awake and pleasant during nutrition assessment. Note pt may have possible AMS or dementia. Pt was asking if it was snowing outside several times during assessment. Assured pt is was not snowing, but pt kept asking. Pt states current appetite is good, and has been for some time. Note avg PO intake 69% x2d, per chart review. Pt states following a regular diet at home, and has some issues with chewing food, attributing it to poor dentition. Pt states some recent issues with nausea, but not vomiting. Pt states no recent issues with constipation or diarrhea. Note last BM was 10/07, and pt not currently on bowel regimen per chart review. Pt states she have recent wt loss, but unsure of amount/timeframe. Note recent 39# wt gain x4mon, per chart review. Pt states current DM management is "not bad" and that her avg fasting blood glucose levels are between "97 and 157." Note unable to determine recent HbA1c, per chart review. ABNORMAL NUTRITION-RELATED LAB VALUES LOW: HIGH: BUN 31; glu 143 Est. kcal needs: 3898-1847 kcal | 15-18 kcal/kg Est. Pro needs: 97-122 g Pro | 0.8-1.0 g Pro/kg PES STATEMENT: Inadequate oral intake (NI-2.1) related to nausea | loss of appetite as evidenced by pt interview | avg PO intake 69% x2d INTERVENTION: Continue with current diet order of CHO 45g/m 3snack diet. Pt may benefit from nutrition supplementation if PO intake declines. Note RD did not offer dietary education at this time d/t possible AMS. May attempt to offer again prior to discharge. Will continue to follow and reassess as pt needs, intake, and status change. MONITOR/EVALUATE: PO Intake; Plan of Care; Hydration Status; Weight Status; Lab Values Radha Ferrell, MS, RD, LD
[2019-10-09 13:47] LABS: BILIRUBIN,URINE NEGATIVE (NEGATIVE); CLARITY,URINE SL CLOUDY; COLOR,URINE DARK YELLOW; GLUCOSE, URINE (UA) NEGATIVE (NEGATIVE); KETONES,URINE TRACE (NEGATIVE); LEUKOCYTE ESTERASE ,URINE 1+ (NEGATIVE); NITRITE,URINE NEGATIVE (NEGATIVE); PH,URINE 5.5 (5-9); PROTEIN,URINE 1+ (NEGATIVE)
[2019-10-09 13:56] LABS: AMORPHOUS SEDIMENT,UR RARE AMOR URATES /LPF; BACTERIA,URINE TRACE /HPF; CALCIUM OXALATE CRYSTALS,UR RARE /LPF; RBC,URINE TNTC /HPF; SQUAMOUS EPITHELIAL CELL,UR 0-2 /HPF
--- NOTE | 2019-10-09 14:13 | NUR ---
DR NUNEZ NOTIFIED OF LOW URINE OUTPUT (230ML) SINCE 7AM
--- NOTE | 2019-10-09 14:33 | NUR ---
PT PLACED ON BIPAP
--- NOTE | 2019-10-09 14:42 | Physical Therapy Evaluation ---
PT Evaluation-General Medical Diagnosis Admission Date Oct 07, 2019 at 11:15 Medical Diagnosis: COPD exacerbation with respriatory failure Onset Date: Oct 07, 2019 Therapy Diagnosis Therapy Diagnosis: generalized weakness/debility Height/Weight Height (Feet): 5 Height (Inches): 7.50 Weight (Pounds): 200 Weight (Ounces): 1.0 Precautions Precautions/Isolations: Fall Prevention, Standard Precautions Referral Physician: Rufina Reason for Referral: Evaluation/Treatment Medical History Pertinent Medical History: CAD, COPD, Dementia, GERD, HTN, Hypothroidism, OA, Smoking Additional Medical History bipolar Current History EMS secondary to AMS and incontinence Reviewed History: Yes Social History Home: Apartment Entry Into Home: Level Entry Prior Prior Level of Function SCALE: Activities may be completed with or without assistive devices. 1-Vrvjdjsekr-wiajkuo completes the activity by him/herself with no assistance from a helper. 5-Set-up or Clean-up Assistance-helper sets up or cleans up; patient completes activity. [place] assists only prior to or following the activity. 4-Supervision or Touching Assistance-helper provides verbal cues and/or touching/steadying and/or contact guard assistance as patient completes activity. Assistance may be provided throughout the activity or intermittently. 3-Partial/Moderate Assistance-helper does LESS THAN HALF the effort. [place] lifts, holds or supports trunk or limbs, but provides less than half the effort. 2-Substantial/Maximal Assistance-helper does MORE THAN HALF the effort. [place] lifts or holds trunk or limbs and provides more than half the effort. 2-Omdawzykb-ggdilw does ALL the effort. Patient does none of the effort to complete the activity. Or, the assistance of 2 or more helpers is required for the patient to complete the activity. If activity was not attempted, code reason: 7-Patient Refused. 9-Not Applicable-not attempted and the patient did not perform the activity before the current illness, exacerbation or injury. 10-Not Attempted due to Environmental Limitations-(lack of equipment, weather restraints, etc.). 88-Not Attempted due to Medical Conditions or Safety Concerns. Bed Mobility: 5 Transfers (B,C,W/C): 5 Gait: 5 Indoor Mobility (Ambulation): Independent Prior Devices Use: Manual wheelchair, Walker ambulates short distances only PT Evaluation-Current Subjective Patient is confused and very lethargic. Does agree to PT. CoTreat with OT. Pain Numeric Pain Scale: 0-No Pain Location: No Pain Reported Objective Patient Orientation: Confused Attachments: Oxygen (5L NC) ROM/Strength ROM Lower Extremities bilateral LE WFL Strength Lower Extremities 3+/5 grossly bilateral LE Integumentary/Posture Integumentary refer to nursing notes Bowel Incontinence: Yes Bladder Incontinence: Yes Posture kyphotic Neuromuscular (Tone, Coordination, Reflexes) diminished coordination Sensory Vision: Functional Hearing: Functional Sensation Right Lower Extremit: Impaired Sensation Left Lower Extremity: Impaired Transfers Roll Left to Right (QC): 2 Sit to Lying (QC): 2 Lying to Sitting/Side of Bed(Q: 3 Sit to Stand (QC): 3 sit to stand x 3 sets minimal to mod assist for safety Gait Does the Patient Walk?: No and Walking Goal IS indicated Balance Sitting Static: Fair Sitting Dynamic: Fair Standing Static: Fair Standing Dynamic: Fair Assessment/Needs 59 y.o. female, will benefit from skilled PT to address functional strength and mobility to improve current LOF. Patient is currently very debilitated and confused. Rehab Potential: Fair PT Mcc Goals Material Damage Appraiser Goals PT Mcc Goals Time Frame: October 18, 2019 Roll Left & Right (QC): 5 Sit to Lying (QC): 5 Lying-Sitting on Side/Bed(QC): 5 Sit to Stand (QC): 5 Chair/Der-et-Uzrmx Xfer(QC): 5 Toilet Transfer (QC): 5 Does the Patient Walk: Yes Walk 10 feet (QC): 5 PT Plan Problem List Problem List: Activity Tolerance, Functional Strength, Safety, Balance, Gait, Transfer, Bed Mobility Treatment/Plan Treatment Plan: Continue Plan of Care Treatment Plan: Bed Mobility, Education, Functional Activity Fede, Functional Strength, Gait, Safety, Therapeutic Exercise, Transfers Treatment Duration: October 18, 2019 Frequency: 6 times per week Estimated Hrs Per Day: .25 hour per day Time/GCodes Time In: 1350 Time Out: 1420 Total Billed Treatment Time: 30 Total Billed Treatment 1 visit EVHighC 30 min (cotreat with OT to assist with ADL's) DELMI TORRES PT Oct 09, 2019 14:42
[2019-10-09] MEDS ORDERED: cefTRIAXone FOR IV USE 1,000 MG in WATER (STERILE) FOR INJECTION 10 ML IV SCH (15:45)
--- NOTE | 2019-10-09 15:59 | Occupational Therapy Eval ---
OT Evaluation-General/PLF Medical Diagnosis Admission Date Oct 07, 2019 at 11:15 Medical Diagnosis: COPD exacerbation with respriatory failure Onset Date: Oct 07, 2019 Therapy Diagnosis Therapy Diagnosis: Weakness, Decreased ADL skills Height/Weight Height (Feet): 5 Height (Inches): 7.50 Weight (Pounds): 200 Weight (Ounces): 1.0 Precautions Precautions/Isolations: Fall Prevention, Standard Precautions Safety Interventions: Bed Exit Alarm Weight Bear Status Weight Bearing Restriction: Weight Bearing/Tolerated Referral Physician: Rufina Referral Reason: Activity Tolerance, Self Care, Evaluation/Treatment, Strengthening/ROM Medical History Pertinent Medical History: CAD, COPD, Dementia, GERD, HTN, Hypothroidism, OA, Smoking Additional Medical History Bipolar, anxiety Current History Pt. admitted with diagnosis of hypoxia and CO2 Narcosis Reviewed History: Yes Social History Home: Apartment Current Living Status: Alone Entry Into Home: Level Entry ADL-Prior Level of Function SCALE: Activities may be completed with or without assistive devices. 8-Quespcnjvy-tellnxa completes the activity by him/herself with no assistance from a helper. 5-Set-up or Clean-up Assistance-helper sets up or cleans up; patient completes activity. [place] assists only prior to or following the activity. 4-Supervision or Touching Assistance-helper provides verbal cues and/or touching/steadying and/or contact guard assistance as patient completes activity. Assistance may be provided throughout the activity or intermittently. 3-Partial/Moderate Assistance-helper does LESS THAN HALF the effort. [place] lifts, holds or supports trunk or limbs, but provides less than half the effort. 2-Substantial/Maximal Assistance-helper does MORE THAN HALF the effort. [place] lifts or holds trunk or limbs and provides more than half the effort. 7-Rqndqfghh-jmzzvw does ALL the effort. Patient does none of the effort to complete the activity. Or, the assistance of 2 or more helpers is required for the patient to complete the activity. If activity was not attempted, code reason: 7-Patient Refused. 9-Not Applicable-not attempted and the patient did not perform the activity before the current illness, exacerbation or injury. 10-Not Attempted due to Environmental Limitations-(lack of equipment, weather restraints, etc.). 88-Not Attempted due to Medical Conditions or Safety Concerns. ADL PLOF Comments Pt. states that she has someone who cleans her house 3 times per week, 3 hours each time. She states that she does not get assistance for ADLs. States that she does this on her own. Self Care: Unknown Functional Cognition: Unknown DME/Equipment: Bath Chair, Tub/Shower OT Current Status Subjective Pt. does not report pain. Pt. groggy throughout treatment. Appearance Pt. in bed. Nursing has just removed catheter. Pt. agrees to treatment. Mental Status/Objective Patient Orientation: Unable to Assess Attachments: IV, Oxygen Current Upper Extremity ROM Limited ROM at shoulder level. ADL-Treatment Shower/Bathe Self (QC): 1 Lower Body Dressing (QC): 1 (Dependent for brief) On/Off Footwear (QC): 1 (Slipper socks) Other Treatments OT/PT received order, chart reviewed. Went in to speak with pt. Pt. reports that she has not been up today, but agrees to get up now. Co-treatment performed due to skilled level of two clinicians. Pt. agrees to shower. Requires mod x 2 for supine-sit. Pt. has difficulty with upright posture while sitting, and requires assist for balance. Stands with walker, with min x 2. Pt. stands and closes her eyes. States that she is dizzy, and that she can't shower, but will sponge bathe. Pt. sits and BP taken. 188/96. Pt. reports that this is "low compared to what it has been." PT facilitates balance with physical cues to sit upright on side of bed, as pt. constantly closes eyes and leans back. OT initiates ADL skills seated on side of bed. Pt. able to wash face and under arms, but continually closes eyes and states that she can't keep them open. PT assists with hair washing and brushing while OT completes bathing for chest and bilateral LE. Pt. stands again with mod x 2 for balance, and requires dependent assist for tabatha care and brief. Pt. begans to breathe hard, and required dependent x 2 for sit-supine and bed mobility. Pt. requests bipap. She is currently on 5 L nasal cannula. Nursing notified. O2 sats taken and are 98%. HOB elevated and all needs met. Nursing assessing pt. Education OT Patient Education: Correct positioning, Exercise program, Modified ADL techniques, Progress toward Goal/Update tx plan, Purpose of tx/functional activities, Reviewed precautions, Rehab process, Transfer techniques Teaching Recipient: Patient Teaching Methods: Demonstration, Discussion Response to Teaching: Verbalize Understanding, Return Demonstration OT Short Term Goals Short Term Goals Time Frame: October 16, 2019 Eatin Oral hygiene: 3 Toileting hygiene: 3 Upper body dressin Lower body dressin Putting on/taking off footwear: 3 OT Custodial Goals Stumper Feller Goals Time Frame: October 30, 2019 Eating (QC): 5 Oral Hygiene (QC): 4 Toileting Hygiene (QC): 3 Shower/Bathe Self (QC): 3 Upper Body Dressing (QC): 4 Lower Body Dressing (QC): 4 On/Off Footwear (QC): 4 Additional Goals: 1-Demonstrate ADL Tasks, 2-Verbalize Understanding, 3- ImproveStrength/Fede 1=Demonstrate adherence to instructed precautions during ADL tasks. 2=Patient will verbalize/demonstrate understanding of assistive devices/modifications for ADL. 3=Patient will improve strength/tolerance for activity to enable patient to perform ADL's. OT Education/Plan Problem List/Assessment Assessment: Decreased Activ Tolerance, Decreased UE Strength, Dependent Transfers, Impaired Bed Mobility, Impaired Cognition, Impaired Coordination, Impaired Funct Balance, Impaired I ADL's, Impaired Self-Care Skills, Restricted Funct UE ROM Discharge Recommendations Plan/Recommendations: Continue POC Therapy Discharge Recommendati: 24 Hour Supervision, Post Acute OT Treatment Plan/Plan of Care Treatment,Training & Education: Yes Patient would benefit from OT for education, treatment and training to promote independence in ADL's, mobility, safety and/or upper extremity function for ADL's. Plan of Care: ADL Retraining, Functional Mobility, UE Funct Exercise/Act Treatment Duration: October 30, 2019 Frequency: 5 times per week Estimated Hrs Per Day: .5 hour per day Agreement: Yes Rehab Potential: Guarded Time/GCodes Start Time: 13:50 Stop Time: 14:20 Total Time Billed (hr/min): 30 Billed Treatment Time 1, EVH (co-treatment with PT untimed). Please see above note for designated roles. LUIS VALLE OT Oct 09, 2019 15:59
[2019-10-09] MEDS: FAMOTIDINE 20 MG (PEPCID) TABLET PO SCH (21:24)
[2019-10-09] MEDS: OLANZapine 5 MG (ZyPREXA) TAB PO SCH (21:24)
[2019-10-09] MEDS: DONEPEZIL 10 MG (ARICEPT) TAB PO SCH (21:24)
[2019-10-10 00:13] VITALS: BP 173/81
[2019-10-10] MEDS: hydrALAZINE (APESOLINE) 20 MG/ML VIAL IV PRN (00:37)
[2019-10-10] MEDS: RT-ALBUTEROL/IPRATROPIUM 3 ML (DUONEB) VIAL INH SCH ×3 (02:47→15:38)
[2019-10-10 04:00] VITALS: BP 152/85
[2019-10-10] MEDS: ENOXAPARIN 40 MG/0.4 ML (LOVENOX) SYR SC SCH ×2 (05:25→17:00)
[2019-10-10 06:27] LABS: BASOPHILS % (AUTO) 0 % (0-10); EOSINOPHILS % (AUTO) 0 % (0-10); HEMATOCRIT 38 % (35-52); HEMOGLOBIN 10.8 G/DL (11.5-16.0); LYMPHOCYTES # (AUTO) 5.7 X 10^3 (1.0-4.0); LYMPHOCYTES % (AUTO) 31 % (12-44); MEAN CORPUSCULAR HEMOGLOBIN 23 PG (25-34); MEAN CORPUSCULAR HGB CONC 28 G/DL (32-36); MEAN CORPUSCULAR VOLUME 82 FL (80-99); MEAN PLATELET VOLUME 10.4 FL (7.4-10.4); MONOCYTES # (AUTO) 1.9 X 10^3 (0.0-1.0); MONOCYTES % (AUTO) 10 % (0-12); NEUTROPHILS # (AUTO) 10.8 X 10^3 (1.8-7.8); NEUTROPHILS % (AUTO) 58 % (42-75); PLATELET COUNT 415 10^3/uL (130-400); RED CELL DISTRIBUTION WIDTH 19.7 % (10.0-14.5); WHITE BLOOD COUNT 18.5 10^3/uL (4.3-11.0)
[2019-10-10] MEDS: ADVAIR HFA 115/21 MCG INHALER 8 GM IH SCH (06:31)
[2019-10-10] MEDS: SUCRALFATE 1 GM (CARAFATE) TAB PO SCH ×3 (07:07→17:00)
[2019-10-10 08:00] VITALS: BP 191/92
[2019-10-10] MEDS: FAMOTIDINE 20 MG (PEPCID) TABLET PO SCH (08:15)
[2019-10-10] MEDS: predniSONE 10 MG TAB PO SCH (08:16)
[2019-10-10] MEDS: meTOprolol SUCCINATE 100 MG (TOPROL XL) TAB PO SCH (08:16)
[2019-10-10] MEDS: amLODIPine 5 MG (NORVASC) TAB PO SCH (08:16)
--- NOTE | 2019-10-10 09:35 | Physical Therapy Daily Note ---
PT Daily Note-Current Subjective Pt is alert and agreeable to therapy. Pt denies pain on arrival. Mental Status Patient Orientation: Person, Place Attachments: Oxygen, IV Pt hallucinated during treatment and kept asking where her purse and phone had been hidden. Transfers SCALE: Activities may be completed with or without assistive devices. 0-Bzvukknvpj-iuyvcag completes the activity by him/herself with no assistance from a helper. 5-Set-up or Clean-up Assistance-helper sets up or cleans up; patient completes a ctivity. [place] assists only prior to or following the activity. 4-Supervision or Touching Assistance-helper provides verbal cues and/or touching/steadying and/or contact guard assistance as patient completes activity. Assistance may be provided throughout the activity or intermittently. 3-Partial/Moderate Assistance-helper does LESS THAN HALF the effort. [place] lifts, holds or supports trunk or limbs, but provides less than half the effort. 2-Substantial/Maximal Assistance-helper does MORE THAN HALF the effort. [place] lifts or holds trunk or limbs and provides more than half the effort. 1-Umxlwinuk-imuzmd does ALL the effort. Patient does none of the effort to complete the activity. Or, the assistance of 2 or more helpers is required for the patient to complete the activity. If activity was not attempted, code reason: 7-Patient Refused. 9-Not Applicable-not attempted and the patient did not perform the activity before the current illness, exacerbation or injury. 10-Not Attempted due to Environmental Limitations-(lack of equipment, weather restraints, etc.). 88-Not Attempted due to Medical Conditions or Safety Concerns. Roll Left & Right (QC): 3 Sit to Lying (QC): 3 Lying to Sitting/Side of Bed(Q: 3 Sit to Stand (QC): 3 Gait Training Does the Patient Walk?: Yes Distance: 6ft Gait Assistive Device: FWW Pt was able to take small steps forward and sideways with good stability, but with rapid fatigue. Exercises Supine Ex: LE Protocol Supine Reps: 15 Assessment Current Status: Fair Progress Pt was able to stand safely and ambulate a very short distance. She reports using a wheelchair at home for her primary mobility, but she does recall ambulating with the walker at home recently. 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 PT [facility] Goals Time Frame: October 18, 2019 Roll Left & Right (QC): 5 Sit to Lying (QC): 5 Lying-Sitting on Side/Bed(QC): 5 Sit to Stand (QC): 5 Chair/Hbn-pe-Udyks Xfer(QC): 5 Toilet Transfer (QC): 5 Does the Patient Walk: Yes Walk 10 feet (QC): 5 PT Plan Treatment/Plan Treatment Plan: Continue Plan of Care Treatment Plan: Bed Mobility, Education, Functional Activity Fede, Functional Strength, Gait, Safety, Therapeutic Exercise, Transfers Treatment Duration: October 18, 2019 Frequency: 6 times per week Estimated Hrs Per Day: .25 hour per day Time/GCodes Time In: 0820 Time Out: 0845 Total Billed Treatment Time: 25 Total Billed Treatment 1, ex (15), fa (10) SARAH GODOY PT October 10, 2019 09:35
[2019-10-10] MEDS: ACETAMINOPHEN 325 MG TABLET PO PRN (10:50)
[2019-10-10] MEDS ORDERED: AMLO5TAB9 PO (11:09)
[2019-10-10] MEDS ORDERED: MTP100TCR PO (11:09)
[2019-10-10] MEDS ORDERED: FAMO20TA3 PO (11:09)
[2019-10-10] MEDS ORDERED: CEFD300C3 PO (11:09)
[2019-10-10] MEDS ORDERED: PRD20T PO (11:09)
[2019-10-10] MEDS ORDERED: IPRA3AMP31 INH (11:11)
[2019-10-10] MEDS ORDERED: cefTRIAXone FOR IV USE 1,000 MG in WATER (STERILE) FOR INJECTION 10 ML IV NR (11:15)
[2019-10-10 12:00] VITALS: BP 161/83
--- NOTE | 2019-10-10 12:06 | Discharge Summary ---
Diagnosis/Chief Complaint Date of Admission Oct 07, 2019 at 11:15 Date of Discharge Discharge Date: October 10, 2019 Discharge Diagnosis 1. Acute on Chronic Respiratory Failure--back to baseline 2. CO2 Narcosis--improved 3. Severe Oxygen Dependent COPD--improved 4. Hypertensive Urgency--improving 5. Dementia--some confusion during hospital stay with steroids/sundowning 6. Bipolar--stable 7. Wheelchair Bound Status 8. UTI 9. Sinus Tachycardia--improved Reason Hospital Visit This is a 59 year old female who has oxygen dependant COPD. She presented to the emergency room after she woke up and had wet the bed and felt weak all over. She was concerned about a possible stroke so she called the ambulance. There was no evidence of a stroke in the emergency room but she was found to have hypoxia with CO2 narcosis. She was placed on BIPAP and admitted to the medical floor. She also had hypertensive urgency in the ER and required IV labetolol. Discharge Summary Hospital Course Was the Problem List Reviewed?: Yes Hospital Course This is a 59 year old female who has oxygen dependant COPD. She presented to the emergency room after she woke up and had wet the bed and felt weak all over. She was concerned about a possible stroke so she called the ambulance. There was no evidence of a stroke in the emergency room but she was found to have hypoxia with CO2 narcosis. She was placed on BIPAP and admitted to the medical floor. She also had hypertensive urgency in the ER and required IV labetolol. She was switched to a nasal cannula the second hospital day with BiPAP use at night. Her IV solumedrol was weaned to oral prednisone by the time of discharge. Her respiratory status was much improved and back to her baseline by discharge. She did require adjustment of her blood pressure medications during her hospital stay due to hypertensive urgency and did require both IV labetalol and IV hydralazine to help control her blood pressure. At discharge, her blood pressures are improving with oral medication adjustments. She was noted to have some hematuria prior to discharge so her robles catheter was discontinued and a repeat UA was done which did indicate a UTI. Rocephin was started and she was given a dose of the rocephin prior to discharge. She will need an outpatient sleep study for BIPAP so she will be set up with Dr. Berman as an outpatient. She will be sent home on her previous home meds and continuous home oxygen use with cefdinir, prednisone and adjustment of her metoprolol and addition of admlodopine for her blood pressure. She will fwup with Dr. Ward in the next 1-2weeks. Labs Laboratory Tests 10/08/19 04:39: White Blood Count 12.0H, Hemoglobin 10.9L, Mean Corpuscular Hemoglobin 24L, Mean Corpuscular Hemoglobin Concent 29L, Red Cell Distribution Width 18.9H, Platelet Count 431H, Mean Platelet Volume 10.5H, Neutrophils (%) (Auto) 88H, Lymphocytes (%) (Auto) 10L, Neutrophils # (Auto) 10.6H, Anion Gap 15H, Blood Urea Nitrogen 19H, Glucose Level 158H 10/08/19 06:43: Arterial Blood pH 7.51H, Arterial Blood Partial Pressure O2 56L, Arterial Blood HCO3 32H, Arterial Blood Total CO2 33.1H, Arterial Blood Oxygen Saturation 93L, Arterial Blood Base Excess 8.2H 10/09/19 05:17: White Blood Count 18.9H, Hemoglobin 11.1L, Mean Corpuscular Hemoglobin 23L, Mean Corpuscular Hemoglobin Concent 29L, Red Cell Distribution Width 19.8H, Platelet Count 502H, Blood Urea Nitrogen 31H, Glucose Level 143H 10/09/19 13:40: Urine Specific [place] 1.025H, Urine Protein 1+H, Urine Ketones TRACEH, Urine Leukocyte Esterase 1+H, Urine RBC (Auto) 3+H, Urine RBC TNTCH, Urine WBC 5-10H, Urine Crystals PRESENTH, Urine Calcium Oxalate Crystals RAREH, Urine Amorphous Sediment RARE FERNANDO URATESH 10/10/19 05:53: White Blood Count 18.5H, Hemoglobin 10.8L, Mean Corpuscular Hemoglobin 23L, Mean Corpuscular Hemoglobin Concent 28L, Red Cell Distribution Width 19.7H, Platelet Count 415H, Neutrophils # (Auto) 10.8H, Lymphocytes # (Auto) 5.7H, Monocytes # (Auto) 1.9H Procedures None. Consultations Dr. Berman Discharge Physical Examination Allergies: Coded Allergies: clindamycin (Unverified Allergy, Mild, HIVES, 11/21/09) meperidine (Unverified Allergy, Mild, HAS RECEIVED FENTANYL IN THE PAST, 08/11/09) morphine (Unverified Allergy, Mild, 11/21/09) doxycycline (Verified Allergy, Unknown, 06/14/19) codeine (Verified Adverse Reaction, Unknown, NAUSEA, 11/21/09) Vitals & I&Os Vital Signs Date Time Temp Pulse Resp B/P (MAP) Pulse Ox O2 Delivery O2 Flow Rate FiO2 10/10/19 10:50 37.0 10/10/19 08:06 97 NIV Bilevel 5.00 10/10/19 08:00 89 20 191/92 (125) 10/09/19 10:37 40 General Appearance: Alert, Oriented X3 Respiratory: Clear to Auscultation Cardiovascular: Regular Rate Abdominal: Normal Bowel Sounds, Soft, No Tenderness Extremities: No Clubbing, No Cyanosis, No Edema Skin: Other (scattered psoriatic plaques) Psych/Mental Status: Mental Status NL Discharge Home Medications Reviewed and agree with Discharge Medication list on patient's Discharge Instruction sheet Instructions to Patient/Family Please see electronic discharge instructions given to patient. Clinical Quality Measures DVT/VTE Risk/Contraindication: Risk Factor Score Per Nursin RFS Level Per Nursing on Admit: 4+=Very High ALICIA NUNEZ DO October 10, 2019 12:06
--- NOTE | 2019-10-10 14:46 | Occupational Ther Daily Note ---
OT Current Status-Daily Note Subjective Pt alert, sitting up in bed. Pt agrees to therapy. No c/o pain. Pt states that she is going home today. Mental Status/Objective Patient Orientation: Person, Time, Situation Attachments: Oxygen ADL-Treatment Pt ambulates with SBA to bathroom and transfers into shower with SBA using FWW and grabbar. Pt completed bathing using grabbars, shower seat and hand held shower. Pt was able to reach all areas to bathe. Dried all areas except buttocks due to low activity tolerance and SOA. Pt educated on pursed lip breathing. Pt able to doff socks, assist to don socks. Pt able to doff and don hospital gown with min A. After session, pt lying in bed with call light/phone in reach. All needs met in room. Therapy Code Descriptions/Definitions Functional Floyd Measure: 0=Not Assessed/NA 4=Minimal Assistance 1=Total Assistance 5=Supervision or Setup 2=Maximal Assistance 6=Modified [place] 3=Moderate Assistance 7=Complete IndependenceSCALE: Activities may be completed with or without assistive devices. 8-Ifxrmogupu-kxebfkq completes the activity by him/herself with no assistance from a helper. 5-Set-up or Clean-up Assistance-helper sets up or cleans up; patient completes activity. [place] assists only prior to or following the activity. 4-Supervision or Touching Assistance-helper provides verbal cues and/or touching/steadying and/or contact guard assistance as patient completes act ivity. Assistance may be provided throughout the activity or intermittently. 3-Partial/Moderate Assistance-helper does LESS THAN HALF the effort. [place] lifts, holds or supports trunk or limbs, but provides less than half the effort. 2-Substantial/Maximal Assistance-helper does MORE THAN HALF the effort. [place] lifts or holds trunk or limbs and provides more than half the effort. 5-Hwwtdodka-saeapx does ALL the effort. Patient does none of the effort to complete the activity. Or, the assistance of 2 or more helpers is required for the patient to complete the activity. If activity was not attempted, code reason: 7-Patient Refused. 9-Not Applicable-not attempted and the patient did not perform the activity before the current illness, exacerbation or injury. 10-Not Attempted due to Environmental Limitations-(lack of equipment, weather restraints, etc.). 88-Not Attempted due to Medical Conditions or Safety Concerns. Shower/Bathe Self (QC): 3 Lower Body Dressing (QC): 3 (Assist to thread onto L foot then pt able to complete all other steps.) On/Off Footwear: 3 OT Short Term Goals Short Term Goals Time Frame: October 16, 2019 Eatin Oral hygiene: 3 Toileting hygiene: 3 Upper body dressin Lower body dressin Putting on/taking off footwear: 3 OT Longterm Goals Waste Machine Offbearer Goals Time Frame: October 30, 2019 Eating (QC): 5 Oral Hygiene (QC): 4 Toileting Hygiene (QC): 3 Shower/Bathe Self (QC): 3 Upper Body Dressing (QC): 4 Lower Body Dressing (QC): 4 On/Off Footwear (QC): 4 Additional Goals: 1-Demonstrate ADL Tasks, 2-Verbalize Understanding, 3-ImproveStrength/Fede 1=Demonstrate adherence to instructed precautions during ADL tasks. 2=Patient will verbalize/demonstrate understanding of assistive devices/modifications for ADL. 3=Patient will improve strength/tolerance for activity to enable patient to perf orm ADL's. OT Education/Plan Problem List/Assessment Assessment: Decreased Activ Tolerance, Decreased UE Strength, Impaired Self- Care Skills Discharge Recommendations Plan/Recommendations: Continue POC Treatment Plan/Plan of Care Patient would benefit from OT for education, treatment and training to promote independence in ADL's, mobility, safety and/or upper extremity function for ADL's. Plan of Care: ADL Retraining, Functional Mobility, UE Funct Exercise/Act Treatment Duration: October 30, 2019 Frequency: 5 times per week Estimated Hrs Per Day: .5 hour per day Agreement: Yes Rehab Potential: Guarded Time/GCodes Start Time: 13:55 Stop Time: 14:35 Total Time Billed (hr/min): 40 Billed Treatment Time 1 visit-ADL 3 (40 min) PILLO BABCOCK October 10, 2019 14:46
[2019-10-10 16:00] VITALS: BP 164/86
--- NOTE | 2019-10-10 16:00 | NUR ---
NOTE THAT PT DID NOT HAVE HOME O2 ON FLOOR -- THIS RN TALKED TO PTS DAUGHTER AND SHE WAS UNABLE TO GET HER HOME O2 TO FLOOR -- S.W. HAD HER O2 SUPPLIER GET AT [employer] TO FLOOR FOR DRIVE HOME -- AND PER PT ARNALDO WAS CALLED --PT DID NOT WANT HER DAUGHTER TO PICKUP HER MEDS -- TO DELLIVER HER MEDS TO HER HOUSE -- HOME MEDS WERE RETURNED TO PT
[2019-10-10 17:55] VITALS: BP 164/86
== END 2019-10-10 17:50 | disposition home or self-care (01) | DRG 189 ==
LOC: EDUNIT# 07:07 → ER 07:25 → 4TH 11:15
PROVIDERS: ADMIT Family Medicine; ATTEND Family Medicine
DX: J96.21 Acute and chronic respiratory failure with hypoxia (principal); J44.1 Chronic obstructive pulmonary disease with (acute) exacerbation; E66.01 Morbid (severe) obesity due to excess calories; Z68.41 Body mass index [BMI] 40.0-44.9, adult; I16.0 Hypertensive urgency; N39.0 Urinary tract infection, site not specified; R31.9 Hematuria, unspecified; I25.10 Atherosclerotic heart disease of native coronary artery without angina pectoris; R32 Unspecified urinary incontinence; R20.0 Anesthesia of skin; R53.1 Weakness; R00.0 Tachycardia, unspecified; K21.9 Gastro-esophageal reflux disease without esophagitis; G43.909 Migraine, unspecified, not intractable, without status migrainosus; R60.9 Edema, unspecified; E78.00 Pure hypercholesterolemia, unspecified; K44.9 Diaphragmatic hernia without obstruction or gangrene; E03.9 Hypothyroidism, unspecified; E11.9 Type 2 diabetes mellitus without complications; F03.90 Unspecified dementia, unspecified severity, without behavioral disturbance, psychotic disturbance, mood disturbance, and anxiety; F31.9 Bipolar disorder, unspecified; F41.9 Anxiety disorder, unspecified; F60.9 Personality disorder, unspecified; L40.9 Psoriasis, unspecified; Z99.81 Dependence on supplemental oxygen; Z87.891 Personal history of nicotine dependence; Z79.84 Long term (current) use of oral hypoglycemic drugs; Z87.11 Personal history of peptic ulcer disease; Z99.3 Dependence on wheelchair; Z90.49 Acquired absence of other specified parts of digestive tract
CPT/HCPCS: 36415; 36600; 51702; 70450; 70496; 70498; 71045; 80048; 80053; 80306; 80320; 81000; 82150; 82550; 82553; 82805; 83605; 83690; 83735; 83874; 83880; 84145; 84443; 84484; 85007; 85025; 85027; 85610; 85730; 87040; 87077; 87088; 87186; 93005; 93041; 94640; 94660

== ENCOUNTER 2020-02-06 08:16 | Inpatient (IN) | payer MEDICARE ==
[~2020-02-06] VITALS: Ht 171.4 cm; Wt 90.7 kg
[~2020-02-06 08:16] MED LIST changes: +ACET-2650 PO; +AMLO5TAB9 PO; +CEFD300C3 PO; +FOLIC ACID PO; +IPRA3AMP31 INH; +METF-397 PO; +METH2.5T PO; +PRD20T PO; +folic acid PO; -methylPREDNISolone 125 MG (Solu-MEDROL) VIAL IVP SCH
[2020-02-06] MEDS ORDERED: NS IV 500 ML 500 ML IV ONE (08:31)
[2020-02-06 08:52] LABS: BASOPHILS % (AUTO) 0 % (0-10); EOSINOPHILS # (AUTO) 0.4 10^3/uL (0.0-0.3); EOSINOPHILS % (AUTO) 3 % (0-10); HEMATOCRIT 35 % (35-52); HEMOGLOBIN 9.3 G/DL (11.5-16.0); LYMPHOCYTES # (AUTO) 2.2 X 10^3 (1.0-4.0); LYMPHOCYTES % (AUTO) 20 % (12-44); MEAN CORPUSCULAR HEMOGLOBIN 24 PG (25-34); MEAN CORPUSCULAR HGB CONC 27 G/DL (32-36); MEAN CORPUSCULAR VOLUME 89 FL (80-99); MEAN PLATELET VOLUME 10.2 FL (7.4-10.4); MONOCYTES # (AUTO) 0.8 X 10^3 (0.0-1.0); MONOCYTES % (AUTO) 7 % (0-12); NEUTROPHILS # (AUTO) 7.6 X 10^3 (1.8-7.8); NEUTROPHILS % (AUTO) 69 % (42-75); PLATELET COUNT 364 10^3/uL (130-400); RED CELL DISTRIBUTION WIDTH 17.4 % (10.0-14.5)
[2020-02-06 08:53] LABS: ALBUMIN 3.8 GM/DL (3.2-4.5); CHLORIDE 96 MMOL/L (98-107); POTASSIUM 4.9 MMOL/L (3.6-5.0); SODIUM 146 MMOL/L (135-145)
[2020-02-06 08:55] LABS: GLUCOSE 98 MG/DL (70-105); TOTAL PROTEIN 6.9 GM/DL (6.4-8.2)
[2020-02-06 08:56] LABS: CARBON DIOXIDE 39 MMOL/L (21-32)
[2020-02-06 08:57] LABS: BILIRUBIN,TOTAL 0.2 MG/DL (0.1-1.0)
[2020-02-06 08:59] LABS: ALKALINE PHOSPHATASE 84 U/L (40-136); CREATININE SERUM 0.71 MG/DL (0.60-1.30); GFR ESTIMATED > 60
[2020-02-06 09:00] LABS: BUN/CREATININE RATIO 14
[2020-02-06 09:02] LABS: ALANINE AMINOTRANSFERASE 10 U/L (0-55)
[2020-02-06 09:06] LABS: BILIRUBIN,URINE NEGATIVE (NEGATIVE); CLARITY,URINE SL CLOUDY; COLOR,URINE YELLOW; GLUCOSE, URINE (UA) NEGATIVE (NEGATIVE); KETONES,URINE NEGATIVE (NEGATIVE); LEUKOCYTE ESTERASE ,URINE NEGATIVE (NEGATIVE); NITRITE,URINE NEGATIVE (NEGATIVE); PH,URINE 8.5 (5-9); PROTEIN,URINE NEGATIVE (NEGATIVE)
[2020-02-06 09:18] LABS: AMORPHOUS SEDIMENT,UR LARGE AMOR PHOSPHATE /LPF; BACTERIA,URINE NEGATIVE /HPF; SQUAMOUS EPITHELIAL CELL,UR 0-2 /HPF
--- NOTE | 2020-02-06 09:30 | Diagnostic Imaging Report ---
INDICATION: Dizziness and weakness. Frontal chest obtained at 09:05 a.m. and compared to 10/08/2019. FINDINGS: There is cardiomegaly. There is central vascular congestion with some interstitial edema and patchy right basilar infiltrate. There is no pneumothorax or pleural fluid. There is some right apical scarring with calcification. IMPRESSION: Cardiomegaly with central vascular congestion and mild interstitial edema. There is some infiltrate in the right lung base which was not present on prior study. There is some right apical scarring with calcification. 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 Dictated by: Dictated on workstation # [id number]
[2020-02-06] MEDS ORDERED: methylPREDNISolone 125 MG (Solu-MEDROL) VIAL IV STA (09:45)
[2020-02-06 09:50] LABS: ABG BASE EXCESS 17.5 MMOL/L (-2.5-2.5); ABG OXYGEN SATURATION 99 % (94-100); ABG PO2 96 MMHG (79-93); ABG TCO2 47.2 MMOL/L (21.0-31.0)
[2020-02-06 09:52] LABS: ABG PCO2 89 MMHG (35-45); ABG PH 7.32 (7.37-7.43)
[2020-02-06 09:53] LABS: ALLENS TEST YES-POS; INSPIRED O2 4 L; PATIENT TEMP 36.6; VENTILATOR NO
--- NOTE | 2020-02-06 09:55 | ED General ---
General Chief Complaint: Dizziness/Syncope Stated Complaint: DIZZINESS, INCREASED WEAKNESS Nursing Triage Note: EMS was called to pt home for dizziness and weakness, could not get out of bed Nursing Sepsis Screen: No Definite Risk Source of Information: Patient, EMS Exam Limitations: No Limitations History of Present Illness Date Seen by Provider: Feb 06, 2020 Time Seen by Provider: 08:25 Initial Comments Here by EMS with report of shortness of air, weakness and inability to get out of bed due to weakness this morning. Does have history of COPD. Last admission was for COPD with acute exacerbation and hypercarbia. Denies contact with COVID 19 or COVID-19 symptoms. Denies fever, chills, chest pain or significant cough. Does have wheezing and shortness of breath typical of her COPD. Has not done her inhaler this morning. Follows with Dr. Mei but has not seen him for several months. Timing/Duration: 1 Hour Severity: Moderate Associated Systoms: Chest Pain (did have chest pain 2-3 days ago that is resolved now); No Cough, No Fever/Chills, No Nausea/Vomiting; Shortness of Air, Weakness Allergies and Home Medications Allergies Coded Allergies: clindamycin (Unverified Allergy, Mild, HIVES, 11/21/09) meperidine (Unverified Allergy, Mild, HAS RECEIVED FENTANYL IN THE PAST, 08/11/09) morphine (Unverified Allergy, Mild, 11/21/09) doxycycline (Verified Allergy, Unknown, 06/14/19) codeine (Verified Adverse Reaction, Unknown, NAUSEA, 11/21/09) Home Medications Acetaminophen 650 Mg Tablet.er, 1,300 MG PO Q8H PRN for PAIN-MILD (1-4), (Reported) Amlodipine Besylate 5 Mg Tablet, 5 MG PO DAILY Prescribed by: ALICIA NUNEZ on 10/10/19 1109 Atorvastatin Calcium 10 Mg Tablet, 10 MG PO HS, (Reported) Cefdinir 300 Mg Capsule, 300 MG PO BID Prescribed by: ALICIA NUNEZ on 10/10/19 1109 Cetirizine HCl 10 Mg Tablet, 10 MG PO DAILY, (Reported) Cholecalciferol (Vitamin D3) 50 Mcg Capsule, 150 MCG PO DAILY, (Reported) TAKES 2 (50MCG) CAPS DAILY Cyanocobalamin (Vitamin B-12) 500 Mcg Tablet, 1,000 MCG PO DAILY, (Reported) Cyclobenzaprine HCl 10 Mg Tablet, 10 MG PO BID, (Reported) Donepezil HCl 10 Mg Tablet, 10 MG PO HS, (Reported) Famotidine 20 Mg Tablet, 20 MG PO BID Prescribed by: ALICIA NUNEZ on 10/10/19 1109 Ipratropium/Albuterol Sulfate 3 Ml Ampul.neb, 3 ML INH [id number] Prescribed by: ALICIA NUNEZ on 10/10/19 1111 Metformin HCl 500 Mg Tablet, 500 MG PO BIDAC, (Reported) Methotrexate Sodium 2.5 Mg Tablet, 7.5 MG PO SUNDAY, (Reported) TAKES 3 (2.5MG) TO EQUAL 7.5MG ONCE WEEKLY ON SUNDAY Metoprolol Succinate 100 Mg Tab.er.24h, 100 MG PO BID Prescribed by: ALICIA NUNEZ on 10/10/19 110 Olanzapine 20 Mg Tablet, 20 MG PO HS, (Reported) Prednisone 20 Mg Tab, 20 MG PO BID Take 3 tabs(60mg)daily, decrease by 1/2 tab(10mg)daily. Prescribed by: ALICIA NUNEZ on 10/10/19 110 Sucralfate 1 Gm Tablet, 1 GM PO TIDAC, (Reported) [Folic Acid] , 1 MG PO DAILY, (Reported) Patient Home Medication List Home Medication List Reviewed: Yes Review of Systems Review of Systems Constitutional: see HPI; No chills, No fever EENTM: no symptoms reported Respiratory: No cough; dyspnea on exertion, short of breath, wheezing Cardiovascular: chest pain; No edema, No palpitations Gastrointestinal: No nausea, No vomiting Genitourinary: no symptoms reported Musculoskeletal: No muscle pain; muscle weakness Skin: no symptoms reported All Other Systems Reviewed Negative Unless Noted: Yes Past Rzwwlav-Rbnoqn-Rqnutf Hx Past Med/Social Hx: Reviewed Nursing Past Med/Soc Hx Patient Social History Alcohol Use: Denies Use Recreational Drug Use: No (20 YRS AGO) Type Used: Cigarettes Former Smoker, Quit: Jun 19, 2018 2nd Hand Smoke Exposure: No Recent Foreign Travel: No Contact w/Someone Who Travel: No Recent Infectious Disease Expo: No Recent Hopitalizations: Yes Immunizations Up To Date Tetanus Booster (TDap): Unknown PED Vaccines UTD: No Date of Pneumonia Vaccine: Mar 11, 2011 Date of Influenza Vaccine: Feb 22, 2018 Seasonal Allergies Seasonal Allergies: No Past Medical History Surgeries: Yes (PILONIDAL CYST; SIGMOID COLECTOMY ; COLOSTOMY ) Abdominal, Appendectomy, Bowel Surgery, Breast, Section, Hysterectomy, Oophorectomy, Tracheostomy Respiratory: Yes (O2 AT 4L/NC CONTINUOUSLY;ARDS W/ VENT & TRACH DUE TO POST OP COMPLCATIONS) Chronic Bronchitis, COPD Currently Using CPAP: No Currently Using BIPAP: No Cardiac: Yes (SVT) Chronic Edema/Swelling, Coronary Artery Disease, High Cholesterol, Hypertension Neurological: Yes Dementia, Headaches /Migraines Reproductive Disorders: Yes (RIGHT BREAST BENING LUMP-REMOVED) Female Reproductive Disorders: Denies [employer] History: Hysterectomy, Menopausal Sexually Transmitted Disease: No HIV/AIDS: No Genitourinary: No Gastrointestinal: Yes Gastroesophageal Reflux, Hiatal Hernia, Ulcer Musculoskeletal: Yes (CHRONIC GENERALIZED PAIN ) Arthritis Endocrine: Yes Hypothyroidsim, Diabetes, Non-Insulin dep, Lupus HEENT: No Loss of Vision: Denies Hearing Impairment: Denies Cancer: No Psychosocial: Yes Anxiety, Bipolar, Personality Disorder, Depression Integumentary: Yes Psoriasis Blood Disorders: Yes (ANEMIA POST OP) Family Medical History Reviewed Nursing Family Hx Arthritis 19 FATHER 19 MOTHER Cardiovascular disease 19 FATHER Cataracts 19 MOTHER Completed stroke 19 MOTHER Dysphasia 19 FATHER FH: cirrhosis 19 MOTHER Glaucoma 19 MOTHER Hypercholesterolemia 19 FATHER Hypertension 19 FATHER 19 MOTHER Myocardial infarction 19 FATHER Osteoporosis 19 MOTHER GI Disease PSH: -SIGMOID AND COLON RESECTION WITH COLOSTOMY FOR PERFORATED DIVERTICULUM--COMPLICATED BY PERFORATION/ANASTAMOTIC LEAK 2009 -LATER TAKEDOWN OF COLOSTOMY -TRACHEOSTOMY AND LATER REMOVAL FOR ARDS DUE TO POST OP COMPLICATIONS FROM COLON RESECTION -ALSO HAD PEG TUBE PLACEMENT AND LATER REMOVAL DUE TO SAME POST OP COMPLICATIONS FROM COLON RESECTION -SPLENECTOMY-DUE TO COMPLICATIONS FROM COLON RESECTION, PER PT -HYSTERECTOMY-ONE OVARY REMOVED -CHOLECYSTECTOMY -PILONIDAL CYST/ABSCESS REMOVED -APPENDECTOMY -BENIGN RIGHT BREAST BIOPSY/LUMPECTOMY - -TIBIAL PLATEAU FRACTURE Physical Exam Vital Signs Vital Signs - First Documented 02/06/20 08:16 Temp 36.6 Pulse 87 Resp 24 B/P (MAP) 171/90 (117) Pulse Ox 100 O2 Delivery Nasal Cannula O2 Flow Rate 4.00 Capillary Refill : Less Than 3 Seconds Height, Weight, BMI Height: 5'7.50" Weight: 200lbs. 1.0oz. 90.699805cd; 34.00 BMI Method:Stated General Appearance: Chronically ill, Mild Distress HEENT: PERRL/EOMI, Pharynx Normal Neck: Non Tender, Supple Respiratory: Decreased Breath Sounds, Wheezing Cardiovascular: Regular Rate, Rhythm, No Murmur, Systolic Murmur Gastrointestinal: Non Tender, Soft Back: Normal Inspection, No CVA Tenderness, No Vertebral Tenderness Extremity: Normal Range of Motion, Non Tender Neurologic/Psychiatric: Alert, Oriented x3 Skin: Warm/Dry, Other (multiple psoriatic lesions to the extremities and trunk. Does have used skin involvement at pannus reflection.) Focused Exam Lactate Level 02/06/20 09:38: Lactic Acid Level 0.54 Lactic Acid Level Laboratory Tests Test 02/06/20 09:38 Lactic Acid Level 0.54 MMOL/L (0.50-2.00) Progress/Results/Core Measures Suspected Sepsis Recent Fever Within 48 Hours: No Infection Criteria Present: None New/Unexplained Altered Menta: No Sepsis Screen: No Definite Risk SIRS Temperature: Pulse: 87 Respiratory Rate: 24 Laboratory Tests 02/06/20 08:25: White Blood Count 11.0 Blood Pressure 171 /90 Mean: 117 02/06/20 09:38: Lactic Acid Level 0.54 Laboratory Tests 02/06/20 08:25: Creatinine 0.71, Platelet Count 364, Total Bilirubin 0.2 Results/Orders Lab Results Laboratory Tests Test 02/06/20 08:25 02/06/20 08:48 02/06/20 08:53 02/06/20 09:38 Range/Units White Blood Count 11.0 4.3-11.0 10^3/uL Red Blood Count 3.87 L 4.35-5.85 10^6/uL Hemoglobin 9.3 L 11.5-16.0 G/DL Hematocrit 35 35-52 % Mean Corpuscular Volume 89 80-99 FL Mean Corpuscular Hemoglobin 24 L 25-34 PG Mean Corpuscular Hemoglobin Concent 27 L 32-36 G/DL Red Cell Distribution Width 17.4 H 10.0-14.5 % Platelet Count 364 130-400 10^3/uL Mean Platelet Volume 10.2 7.4-10.4 FL Neutrophils (%) (Auto) 69 42-75 % Lymphocytes (%) (Auto) 20 12-44 % Monocytes (%) (Auto) 7 0-12 % Eosinophils (%) (Auto) 3 0-10 % Basophils (%) (Auto) 0 0-10 % Neutrophils # (Auto) 7.6 1.8-7.8 X 10^3 Lymphocytes # (Auto) 2.2 1.0-4.0 X 10^3 Monocytes # (Auto) 0.8 0.0-1.0 X 10^3 Eosinophils # (Auto) 0.4 H 0.0-0.3 10^3/uL Basophils # (Auto) 0.0 0.0-0.1 10^3/uL Sodium Level 146 H 135-145 MMOL/L Potassium Level 4.9 3.6-5.0 MMOL/L Chloride Level 96 L 98-107 MMOL/L Carbon Dioxide Level 39 H 21-32 MMOL/L Anion Gap 11 5-14 MMOL/L Blood Urea Nitrogen 10 7-18 MG/DL Creatinine 0.71 0.60-1.30 MG/DL Estimat Glomerular Filtration Rate > 60 BUN/Creatinine Ratio 14 Glucose Level 98 70-105 MG/DL Calcium Level 9.0 8.5-10.1 MG/DL Corrected Calcium 9.2 8.5-10.1 MG/DL Magnesium Level 2.0 1.6-2.4 MG/DL Total Bilirubin 0.2 0.1-1.0 MG/DL Aspartate Amino Transf (AST/SGOT) 16 5-34 U/L Alanine Aminotransferase (ALT/SGPT) 10 0-55 U/L Alkaline Phosphatase 84 40-136 U/L Troponin I < 0.028 <0.028 NG/ML C-Reactive Protein High Sensitivity 1.56 H 0.00-0.50 MG/DL Total Protein 6.9 6.4-8.2 GM/DL Albumin 3.8 3.2-4.5 GM/DL Urine Color YELLOW Urine Clarity SL CLOUDY Urine pH 8.5 5-9 Urine Specific [place] 1.015 L 1.016-1.022 Urine Protein NEGATIVE NEGATIVE Urine Glucose (UA) NEGATIVE NEGATIVE Urine Ketones NEGATIVE NEGATIVE Urine Nitrite NEGATIVE NEGATIVE Urine Bilirubin NEGATIVE NEGATIVE Urine Urobilinogen 0.2 < = 1.0 MG/DL Urine Leukocyte Esterase NEGATIVE NEGATIVE Urine RBC (Auto) NEGATIVE NEGATIVE Urine RBC NONE /HPF Urine WBC NONE /HPF Urine Squamous Epithelial Cells 0-2 /HPF Urine Crystals NONE /LPF Urine Amorphous Sediment LARGE FERNANDO PHOSPHATE H /LPF Urine Bacteria NEGATIVE /HPF Urine Casts NONE /LPF Urine Mucus NEGATIVE /LPF Urine Culture Indicated NO Blood Gas Puncture Site LT RAD Blood Gas Patient Temperature 36.6 Arterial Blood pH 7.32 *L 7.37-7.43 Arterial Blood Partial Pressure CO2 89 *H 35-45 MMHG Arterial Blood Partial Pressure O2 96 H 79-93 MMHG Arterial Blood HCO3 45 *H 23-27 MMOL/L Arterial Blood Total CO2 47.2 H 21.0-31.0 MMOL/L Arterial Blood Oxygen Saturation 99 94-100 % Arterial Blood Base Excess 17.5 H -2.5-2.5 MMOL/L Merlin Test YES-POS Blood Gas Ventilator Setting NO Blood Gas Inspired Oxygen 4 L Lactic Acid Level 0.54 0.50-2.00 MMOL/L My Orders Orders - JORGITO COSTELLO MD Arterial Blood Gas (02/06/20 08:31) Cbc With Automated Diff (02/06/20 08:31) Comprehensive Metabolic Panel (02/06/20 08:31) Hs C Reactive Protein (02/06/20 08:31) Lactic Acid Analyzer (02/06/20 08:31) Magnesium (02/06/20 08:31) Ua Culture If Indicated (02/06/20 08:31) Blood Culture (02/06/20 08:31) Ed Iv/Invasive Line Start (02/06/20 08:31) Ns Iv 500 Ml (Sodium Chloride 0.9%) (02/06/20 08:31) Chest 1 View, Ap/Pa Only (02/06/20 08:31) Ekg Tracing (02/06/20 08:35) O2 (02/06/20 08:35) Monitor-Rhythm Ecg Trace Only (02/06/20 08:35) Straight Cath For Spec.-Adult (02/06/20 08:35) Troponin I (02/06/20 08:35) Procalcitonin (Pct) (02/06/20 09:45) Methylprednisolone Sod Succ (Solu-Medrol (02/06/20 09:45) BNP (02/06/20 09:46) Albuterol/Ipra Inhalation Soln (Duoneb I (02/06/20 10:15) Svn Small Volume Nebulizer (02/06/20 10:03) Cefepime Injection (Maxipime Injection) (02/06/20 10:15) Medications Given in ED Current Medications Medications Dose Ordered Sig/Randy Route Start Time Stop Time Status Last Admin Dose Admin Sodium Chloride 500 ml @ 0 mls/hr Q0M ONCE IV 02/06/20 08:31 02/06/20 08:34 DC 02/06/20 09:00 500 MLS/HR Vital Signs/I&O 02/06/20 02/06/20 08:16 08:16 Temp 36.6 Pulse 87 Resp 24 B/P (MAP) 171/90 (117) Pulse Ox 100 100 O2 Delivery Nasal Cannula Nasal Cannula O2 Flow Rate 4.00 Capillary Refill : Less Than 3 Seconds Blood Pressure Mean: 117 Progress Note : Progress Note Seen and evaluated. IV, labs, EKG and chest x-ray ordered. Normal saline 500 mL bolus. Oseguera placed to collect urine as straight catheter unable to capture voided as patient is incontinent. 1000: Labs and x-ray reviewed. Likely right lower lobe infiltrate as well as some concerns for vascular congestion. 1020: I did discuss the case with Dr. Preston and she accepts patient for admission, inpatient status. I did discuss with the patient about the need for advanced airway including possible Vapotherm or BiPAP. We began initiation of Vapotherm which the patient states she could not handle and has requested BiPAP so we will switch her to that due to hypercarbia noted on ABG. Cefepime 1 g IV ordered for pneumonia. Solu-Medrol 125 mg IV ordered and patient will get duo neb with BiPAP. Patient agrees to admission. ECG Initial ECG Impression Date: Feb 06, 2020 Initial ECG Impression Time: 08:38 Initial ECG Rate: 84 Initial ECG Rhythm: Normal Sinus Comment Sinus rhythm with normal axis. No evidence of ST elevation [place]. Unchanged from previous of 10/07/19. Interpreted by me. Diagnostic Imaging Diagonstic Imaging: Xray Plain Films/CT/US/NM/MRI: chest Comments [facility] [place] NAME: CALEB ANDERSEN [facility] REC#: [id number] PT STATUS: REG ER : 1960 PHYSICIAN: JORGITO COSTELLO MD ADMIT DATE: 02/06/20/ER Signed Date of Exam:02/06/20 CHEST 1 VIEW, AP/PA ONLY INDICATION: Dizziness and weakness. Frontal chest obtained at 09:05 a.m. and compared to 10/08/2019. FINDINGS: There is cardiomegaly. There is central vascular congestion with some interstitial edema and patchy right basilar infiltrate. There is no pneumothorax or pleural fluid. There is some right apical scarring with calcification. IMPRESSION: Cardiomegaly with central vascular congestion and mild interstitial edema. There is some infiltrate in the right lung base which was not present on prior study. There is some right apical scarring with calcification. 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 Dictated by: Dictated on workstation # [id number] Dict: 02/06/2026 Trans: 02/06/20 0956 [id number] Interpreted by: FRANCIS KATHLEEN MD Electronically signed by: FRANCIS KATHLEEN MD 02/06/20 0956 Departure Communication (Admissions) Time/Spoke to Admitting Phy: 10:20 Impression Primary Impression: COPD with acute exacerbation Additional Impressions: Acute respiratory failure with hypoxia and hypercarbia Right lower lobe pneumonia Qualified Codes: J18.9 - Pneumonia, unspecified organism Disposition: ADMITTED INPATIENT Condition: Stable Admissions Decision to Admit Reason: Admit from ER (General) Decision to Admit/Date: Feb 06, 2020 Time/Decision to Admit Time: 10:20 Departure-Patient Inst. Referrals: JOCELYNE MEI DO (PCP/Family) Primary Care Physician JORGITO COSTELLO MD Feb 06, 2020 09:55
[2020-02-06] MEDS ORDERED: CEFEPIME INJECTION 1,000 MG in WATER (STERILE) FOR INJECTION 10 ML IV ONE (10:15)
[2020-02-06] MEDS ORDERED: RT-ALBUTEROL/IPRATROPIUM 3 ML (DUONEB) VIAL INH ONE (10:15)
[2020-02-06 10:34] VITALS: BP 177/95
[2020-02-06] MEDS ORDERED: CEFEPIME 1 GM (MAXIPIME) VIAL ONE (10:53)
--- NOTE | 2020-02-06 11:19 | NUR ---
pt removed BiPap stating that she was not going to put it back on and was not going to wear it
[2020-02-06 11:38] VITALS: BP 171/89
[2020-02-06] MEDS ORDERED: CATHETER FLUSH 10 ML SYR IV PRN (13:45)
[2020-02-06] MEDS ORDERED: MELATONIN 3 MG TABLET PO PRN (14:15)
[2020-02-06] MEDS ORDERED: ONDANSETRON 4 MG/2 ML (SDV) Z0FRAN IV PRN (14:15)
[2020-02-06] MEDS ORDERED: BENZONATATE 100 MG (TESSALON) CAPSULE PO PRN (14:15)
[2020-02-06] MEDS ORDERED: MILK OF MAGNESIA 400 MG/5 ML 30 ML UDC PO PRN (14:15)
[2020-02-06] MEDS ORDERED: ANTACID SUSP 30 ML UDC (MYLANTA) PO PRN (14:15)
[2020-02-06] MEDS: CATHETER FLUSH 10 ML SYR IV SCH ×2 (14:20→22:02)
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
[2020-02-06] MEDS: ACETAMINOPHEN 325 MG TABLET PO PRN ×2 (14:53→22:01)
--- NOTE | 2020-02-06 15:13 | Physical Therapy Evaluation ---
PT Evaluation-General Medical Diagnosis Admission Date Feb 06, 2020 at 10:36 Medical Diagnosis: weakness and SOB Onset Date: Feb 06, 2020 Therapy Diagnosis Therapy Diagnosis: impaired mobility, strength, endurance Height/Weight Height (Feet): 5 Height (Inches): 7.50 Weight (Pounds): 200 Weight (Ounces): 1.0 Precautions Precautions/Isolations: Fall Prevention, Standard Precautions Referral Physician: Kary Reason for Referral: Evaluation/Treatment Medical History Pertinent Medical History: CAD, COPD, Dementia, GERD, HTN, Hypothroidism, OA, Smoking Additional Medical History Past Medical History Surgeries: Abdominal, Appendectomy, Bowel Surgery, Breast, Section, Hysterectomy, Oophorectomy, Tracheostomy Respiratory: COPD, Pneumonia Currently Using CPAP: No Currently Using BIPAP: No Cardiac: Chronic Edema/Swelling, Coronary Artery Disease, High Cholesterol, Hypertension Neurological: Dementia, Headaches /Migraines Reproductive: Yes (RIGHT BREAST BENING LUMP-REMOVED) Sexually Transmitted Disease: No HIV/AIDS: No Female Reproductive Disorders: Denies Hysterectomy, Menopausal Gastrointestinal: Gastroesophageal Reflux, Hiatal Hernia, Ulcer Musculoskeletal: Arthritis Endocrine: Hypothyroidsim, Diabetes, Non-Insulin dep, Lupus Loss of Vision: Denies Hearing Impairment: Denies Psychosocial: Anxiety, Bipolar, Personality Disorder, Depression Skin/Integumentary: Psoriasis History of Blood Disorders: Yes (ANEMIA POST OP) Prior Prior Level of Function SCALE: Activities may be completed with or without assistive devices. 4-Hgnzyceerx-ikpnpot completes the activity by him/herself with no assistance from a helper. 5-Set-up or Clean-up Assistance-helper sets up or cleans up; patient completes activity. [place] assists only prior to or following the activity. 4-Supervision or Touching Assistance-helper provides verbal cues and/or touching/steadying and/or contact guard assistance as patient completes activity. Assistance may be provided throughout the activity or intermittently. 3-Partial/Moderate Assistance-helper does LESS THAN HALF the effort. [place] lifts, holds or supports trunk or limbs, but provides less than half the effort. 2-Substantial/Maximal Assistance-helper does MORE THAN HALF the effort. [place] lifts or holds trunk or limbs and provides more than half the effort. 6-Twcxqonpx-zmcwie does ALL the effort. Patient does none of the effort to complete the activity. Or, the assistance of 2 or more helpers is required for the patient to complete the activity. If activity was not attempted, code reason: 7-Patient Refused. 9-Not Applicable-not attempted and the patient did not perform the activity before the current illness, exacerbation or injury. 10-Not Attempted due to Environmental Limitations-(lack of equipment, weather restraints, etc.). 88-Not Attempted due to Medical Conditions or Safety Concerns. Bed Mobility: 6 Transfers (B,C,W/C): 6 Patient states she normally uses a rolling walker but is unclear about how much she can ambulate. PT Evaluation-Current Subjective Patient in bed pre tx, agrees to PT, has 7/10 pain "in her joints", nurse brings in pain meds during treatment. Pt/Family Goals none stated Objective Patient Orientation: Person, Place, Situation Attachments: Oxygen ROM/Strength ROM Lower Extremities WNL Strength Lower Extremities LLE (hip flexion 3-/5, knee extension 3/5, knee flexion 3/5, dorsiflexion 3/5), RLE (hip flexion 3-/5, knee extension 3/5, knee flexion 3/5, dorsiflexion 3/5) Sensory Hearing: Functional Sensation Right Lower Extremit: Intact Sensation Left Lower Extremity: Intact Transfers Roll Left to Right (QC): 4 Sit to Lying (QC): 4 Lying to Sitting/Side of Bed(Q: 4 SBA. Patient not able to stand due to BLE weakness and she states she cannot stand without some special shoes she has and is unwilling to try. Patient sits on the edge of the bed for about 10 min. Balance Sitting Static: Normal Sitting Dynamic: Normal Treatment seated BLE exercises x15 (AP, LAQ), supine BLE exercises x15 (QS, GS) Assessment/Needs Patient has impaired mobility, strength, endurance. She seems to have difficulty communicating about what she can and cannot do functional mobility- paz normally. Patient in bed post tx with nurse call, phone, tray, all needs met. Rehab Potential: Guarded PT Usp Goals Data Entry Representative Goals PT Usp Goals Time Frame: Feb 13, 2020 Roll Left & Right (QC): 6 Sit to Lying (QC): 6 Lying-Sitting on Side/Bed(QC): 6 Sit to Stand (QC): 3 Chair/Zgq-gl-Qexmh Xfer(QC): 3 Toilet Transfer (QC): 3 PT Plan Problem List Problem List: Activity Tolerance, Functional Strength, Safety, Balance, Gait, Transfer, Bed Mobility, ROM Treatment/Plan Treatment Plan: Continue Plan of Care Treatment Plan: Bed Mobility, Education, Functional Activity Fede, Functional Strength, Gait, Safety, Therapeutic Exercise, Transfers Treatment Duration: Feb 13, 2020 Frequency: 6 times per week Estimated Hrs Per Day: .25 hour per day Patient and/or Family Agrees t: Yes Safety Risks/Education Patient Education: Correct Positioning, Safety Issues Teaching Recipient: Patient Teaching Methods: Demonstration, Discussion Response to Teaching: Reinforcement Needed Discharge Recommendations Plan Patient will perform bed mobility and transfer training, balance and endurance training, functional strengthening, gait training, and education, to improve functional mobility and independence at home. Therapy Discharge Recommendati: Other, See Comments (NH) Time/GCodes Time In: 1446 Time Out: 1500 Total Billed Treatment Time: 14 Total Billed Treatment 1 visit CLAU LOVE PT Feb 06, 2020 15:13
--- NOTE | 2020-02-06 15:18 | Occupational Therapy Eval ---
OT Evaluation-General/PLF Medical Diagnosis Admission Date Feb 06, 2020 at 10:36 Medical Diagnosis: COPD/PNA Onset Date: Feb 06, 2020 Therapy Diagnosis Therapy Diagnosis: weakness, decreased ADL status Height/Weight Height (Feet): 5 Height (Inches): 7.50 Weight (Pounds): 200 Weight (Ounces): 1.0 Precautions Precautions/Isolations: Fall Prevention, Standard Precautions Referral Physician: Kary Referral Reason: Evaluation/Treatment Medical History Pertinent Medical History: CAD, COPD, Dementia, GERD, HTN, Hypothroidism, OA, Smoking Additional Medical History O2 4L day/night at home, HLD, NIDDMII, lupus, psoriasis Current History ER due to weakness and SOB, pt unable to get out of bed due to weakness Social History Home: Single Level Current Living Status: Alone Entry Into Home: Level Entry ADL-Prior Level of Function SCALE: Activities may be completed with or without assistive devices. 1-Eqzynbcsht-nwvpelj completes the activity by him/herself with no assistance from a helper. 5-Set-up or Clean-up Assistance-helper sets up or cleans up; patient completes activity. [place] assists only prior to or following the activity. 4-Supervision or Touching Assistance-helper provides verbal cues and/or touching/steadying and/or contact guard assistance as patient completes activit y. Assistance may be provided throughout the activity or intermittently. 3-Partial/Moderate Assistance-helper does LESS THAN HALF the effort. [place] lifts, holds or supports trunk or limbs, but provides less than half the effort. 2-Substantial/Maximal Assistance-helper does MORE THAN HALF the effort. [place] lifts or holds trunk or limbs and provides more than half the effort. 5-Ybjstlnvz-wapgnx does ALL the effort. Patient does none of the effort to complete the activity. Or, the assistance of 2 or more helpers is required for the patient to complete the activity. If activity was not attempted, code reason: 7-Patient Refused. 9-Not Applicable-not attempted and the patient did not perform the activity before the current illness, exacerbation or injury. 10-Not Attempted due to Environmental Limitations-(lack of equipment, weather restraints, etc.). 88-Not Attempted due to Medical Conditions or Safety Concerns. ADL PLOF Comments Pt reports living alone, she is able to complete bathing and dressing independently, she has meals provided through meals on wheels and she has a cleaning lady. She uses a w/c for functional mobility around her house and is able to transfer herself from w/c to MD independently. Self Care: Independent Functional Cognition: Independent DME/Equipment: Bath Chair, Shower OT Current Status Subjective Pt laying in bed after PT, she agreed to OT tx. Pt reports pain in the biceps region of LUE but does not rate pain. Mental Status/Objective Patient Orientation: Person, Place, Time, Situation Attachments: Oxygen Current Glasses/Contacts: Yes Hearing Aids: No Dentures/Partials: No Hand Dominance: Right Upper Extremity ROM RUE shoulder flexion to approx 90 degrees, WFL elbow/hand LUE shoulder flexion to approx 15 degrees (reports increased pain along biceps region), WFL elbow/hand Upper Extremity Coordination pt reports decreased coordination with difficulty opening some containers and completing fine motor tasks Upper Extremity Sensation WFL BUE at this time, Pt reports having Raynaud's so has some tingling/numbness at times Other Treatments Pt laying in bed, OT educated pt on purpose and benefits of OT, she verbalized understanding. Pt provided information about PLOF and home set up, then participated in UE screen. Pt reports being tired, keeping her eyes closed at the end of session. Pt declined completing ADLs on this date stating she would like to rest. OT educated pt on POC while she is in the hospital, she verbalized understanding. Post OT Tx, pt laying in bed, call light in reach and all needs met. Education OT Patient Education: Correct positioning, Progress toward Goal/Update tx plan, Purpose of tx/functional activities, Rehab process Teaching Recipient: Patient Teaching Methods: Discussion Response to Teaching: Verbalize Understanding OT Research Dietitian Goals Research Dietitian Goals Time Frame: Feb 13, 2020 Eating (QC): 6 Oral Hygiene (QC): 6 Toileting Hygiene (QC): 6 Shower/Bathe Self (QC): 6 Upper Body Dressing (QC): 6 Lower Body Dressing (QC): 6 On/Off Footwear (QC): 6 1=Demonstrate adherence to instructed precautions during ADL tasks. 2=Patient will verbalize/demonstrate understanding of assistive devices/modifications for ADL. 3=Patient will improve strength/tolerance for activity to enable patient to perform ADL's. OT Education/Plan Problem List/Assessment Assessment: Decreased Activ Tolerance, Decreased UE Strength, Impaired I ADL's, Impaired Self-Care Skills, Restricted Funct UE ROM Discharge Recommendations Plan/Recommendations: Continue POC Treatment Plan/Plan of Care Patient would benefit from OT for education, treatment and training to promote independence in ADL's, mobility, safety and/or upper extremity function for ADL's. Plan of Care: ADL Retraining, Functional Mobility, UE Funct Exercise/Act Treatment Duration: Feb 13, 2020 Frequency: 5 times per week Estimated Hrs Per Day: .25 hour per day Agreement: Yes Rehab Potential: Fair Time/GCodes Start Time: 15:00 Stop Time: 15:09 Total Time Billed (hr/min): 9 Billed Treatment Time 1, GAMA KRAMER OT Feb 06, 2020 15:18
[2020-02-06] MEDS ORDERED: AMLO5TAB9 PO (15:34)
[2020-02-06] MEDS ORDERED: MTP100TCR PO (15:34)
[2020-02-06] MEDS ORDERED: OMEP20CA18 PO (15:34)
[2020-02-06] MEDS ORDERED: OLAN10TA19 PO (15:34)
[2020-02-06] MEDS ORDERED: FOLI1TAB24 PO (15:34)
--- NOTE | 2020-02-06 15:39 | NUR ---
SPOKE WITH THE PT(SHE HAS HER MED BOTTLES WITH HER) AND SPOKE WITH [facility] TO COMPLETE THE MED REC METOPROLOL SUCC 100MG- THE BOTTLE SAYS 2 TAB DAILY HOWEVER THE PT SAYS SHE TAKES 1 TAB BID THE FOLLOWING ARE FILL DATES FROM [facility]: 10-30-2019 METFORMIN 500MG #180/90DS 12-18-2019 CARAFATE 1GM #90/30DS 12-22-2019 DONEPEZIL 10MG #60/60DS 12-24-2019 OLANZAPINE 10MG &20MG #30/30DS 01-20-2020 METOPROLOL SUCC 100MG #60/30DS 01-20-2020 METHOTREXATE 2.5MG #12/28DS 01-21-2020 FOLIC ACID 1 MG #30/30DS 01-31-2020 ATORVASTATIN 10MG #30/30DS 01-31-2020 FLEXERIL 10MG #60/30DS 01-31-2020 OMEPRAZOLE 20MG #30/30DS 01-31-2020 AMLODIPINE 5MG #30/30DS ZYRTEC 10MG WAS LAST FILLED ON 12-03-2019 #30 (THE BOTTLE IS WITH ALL THE OTHERS), PT SAYS SHE TAKES EVERYDAY HOWEVER THE BOTTLE IS ALMOST FULL. PT KNOWS SHE WAS TAKING SOME ZYRTEC OTC AND THOUGHT SHE COULD HAVE POURED THE OTC BOTTLE IN THE MEDICATION BOTTLE OTC MEDS: TYLENOL 650MG PT SAYS SHE TAKES 2-3 TABS AT A TIME VIT B12 VIT D3
[2020-02-06] MEDS: ENOXAPARIN 40 MG/0.4 ML (LOVENOX) SYR SC SCH (15:45)
[2020-02-06 16:00] VITALS: BP 154/85
[2020-02-06 16:36] VITALS: BP 171/90
[2020-02-06] MEDS ORDERED: RT-ALBUTEROL/IPRATROPIUM 3 ML (DUONEB) VIAL INH PRN (16:45)
[2020-02-06] MEDS ORDERED: NS IV 1000 ML 1,000 ML IV SCH (17:30)
[2020-02-06] MEDS ORDERED: methylPREDNISolone 40 MG/ML (Solu-MEDROL) VIAL IV SCH (18:00)
[2020-02-06] MEDS: RT-ALBUTEROL/IPRATROPIUM 3 ML (DUONEB) VIAL INH SCH ×2 (18:25→22:21)
[2020-02-06] MEDS: CEFEPIME 1,000 MG/SWFI 10 ML IV PUSH IV SCH ×2 (18:51)
[2020-02-06 20:00] VITALS: BP 170/75
[2020-02-06] MEDS ORDERED: OMEPRAZOLE 20 MG (PriLOSEC) CAP NON-FORMULARY PO SCH (21:00)
[2020-02-06] MEDS ORDERED: NON-FORMULARY MEDICATION 1 EA EA (Olanzapine 10 MG) PO SCH (21:00)
[2020-02-06] MEDS ORDERED: NON-FORMULARY MEDICATION 1 EA EA (Olanzapine 20 MG) PO SCH (21:00)
[2020-02-06] MEDS: OLANZapine 5 MG (ZyPREXA) TAB PO SCH (21:55)
[2020-02-06] MEDS: PANTOPRAZOLE 20 MG TABLET (PROTONIX) PO SCH (21:58)
[2020-02-06] MEDS: DONEPEZIL 10 MG (ARICEPT) TAB PO SCH (21:58)
[2020-02-06] MEDS: CYCLOBENZAPRINE 10 MG (FLEXERIL) TAB PO SCH (21:59)
[2020-02-06] MEDS: meTOprolol SUCCINATE 100 MG (TOPROL XL) TAB PO SCH (22:00)
[2020-02-07 00:30] VITALS: BP 126/76
[2020-02-07] MEDS: CEFEPIME 1,000 MG/SWFI 10 ML IV PUSH IV SCH ×8 (00:42→21:39)
[2020-02-07] MEDS: RT-ALBUTEROL/IPRATROPIUM 3 ML (DUONEB) VIAL INH SCH ×6 (01:36→23:17)
[2020-02-07 04:00] VITALS: BP 160/81
[2020-02-07 05:48] LABS: BASOPHILS % (AUTO) 0 % (0-10); EOSINOPHILS % (AUTO) 0 % (0-10); HEMATOCRIT 33 % (35-52); HEMOGLOBIN 9.2 G/DL (11.5-16.0); LYMPHOCYTES % (AUTO) 21 % (12-44); MEAN CORPUSCULAR HEMOGLOBIN 23 PG (25-34); MEAN CORPUSCULAR HGB CONC 28 G/DL (32-36); MEAN CORPUSCULAR VOLUME 85 FL (80-99); MEAN PLATELET VOLUME 9.8 FL (7.4-10.4); MONOCYTES # (AUTO) 1.4 X 10^3 (0.0-1.0); MONOCYTES % (AUTO) 9 % (0-12); NEUTROPHILS # (AUTO) 10.1 X 10^3 (1.8-7.8); NEUTROPHILS % (AUTO) 70 % (42-75); PLATELET COUNT 409 10^3/uL (130-400); RED CELL DISTRIBUTION WIDTH 17.5 % (10.0-14.5); WHITE BLOOD COUNT 14.5 10^3/uL (4.3-11.0)
[2020-02-07 06:04] LABS: ALBUMIN 3.8 GM/DL (3.2-4.5); CHLORIDE 98 MMOL/L (98-107); POTASSIUM 4.1 MMOL/L (3.6-5.0); SODIUM 143 MMOL/L (135-145)
[2020-02-07 06:05] LABS: CALCIUM 9.3 MG/DL (8.5-10.1)
[2020-02-07 06:06] LABS: GLUCOSE 108 MG/DL (70-105)
[2020-02-07 06:07] LABS: TOTAL PROTEIN 6.7 GM/DL (6.4-8.2)
[2020-02-07 06:08] LABS: BILIRUBIN,TOTAL 0.3 MG/DL (0.1-1.0); CARBON DIOXIDE 33 MMOL/L (21-32)
[2020-02-07 06:10] LABS: ALKALINE PHOSPHATASE 85 U/L (40-136); CREATININE SERUM 0.82 MG/DL (0.60-1.30); GFR ESTIMATED > 60
[2020-02-07 06:11] LABS: BUN/CREATININE RATIO 17
[2020-02-07 06:13] LABS: ALANINE AMINOTRANSFERASE 7 U/L (0-55)
[2020-02-07 06:57] LABS: HYPOCHROMASIA MODERATE; LYMPHOCYTES % (MANUAL) 20 %; MONOCYTES % (MANUAL) 8 %; NEUTROPHILS % (MANUAL) 72 %
[2020-02-07 06:58] LABS: ANISOCYTOSIS MODERATE
[2020-02-07 08:00] VITALS: BP 173/108
[2020-02-07] MEDS: FOLIC ACID 1 MG TAB PO SCH (08:41)
[2020-02-07] MEDS: predniSONE 20 MG TAB PO SCH (08:41)
[2020-02-07] MEDS: CYCLOBENZAPRINE 10 MG (FLEXERIL) TAB PO SCH ×2 (08:41→21:40)
[2020-02-07] MEDS: ACETAMINOPHEN 325 MG TABLET PO PRN (08:41)
[2020-02-07] MEDS: LORATADINE (CLARITIN) 10 MG TAB PO SCH (08:42)
[2020-02-07] MEDS: SUCRALFATE 1 GM (CARAFATE) TAB PO SCH ×3 (08:42→17:32)
[2020-02-07] MEDS: amLODIPine 5 MG (NORVASC) TAB PO SCH (08:42)
[2020-02-07] MEDS: CATHETER FLUSH 10 ML SYR IV SCH ×3 (08:42→21:40)
[2020-02-07] MEDS: meTOprolol SUCCINATE 100 MG (TOPROL XL) TAB PO SCH ×2 (08:42→21:40)
[2020-02-07] MEDS ORDERED: OLANZapine 5 MG (ZyPREXA) TAB PO SCH (09:00)
[2020-02-07] MEDS ORDERED: METHOTREXATE 2.5 MG TAB PO SCH (09:00)
[2020-02-07] MEDS ORDERED: NON-FORMULARY MEDICATION 1 EA EA (Cetirizine HCl 10 MG) PO SCH (09:00)
--- NOTE | 2020-02-07 11:04 | Physical Therapy Daily Note ---
PT Daily Note-Current Subjective Patient reports she feels stronger today and agrees to PT. Mental Status Patient Orientation: Normal For Age Attachments: Oxygen, [place] Catheter Transfers SCALE: Activities may be completed with or without assistive devices. 4-Gdqezqysou-hwiyabc completes the activity by him/herself with no assistance from a helper. 5-Set-up or Clean-up Assistance-helper sets up or cleans up; patient completes activity. [place] assists only prior to or following the activity. 4-Supervision or Touching Assistance-helper provides verbal cues and/or touching/steadying and/or contact guard assistance as patient completes activity. Assistance may be provided throughout the activity or intermittently. 3-Partial/Moderate Assistance-helper does LESS THAN HALF the effort. [place] lifts, holds or supports trunk or limbs, but provides less than half the effort. 2-Substantial/Maximal Assistance-helper does MORE THAN HALF the effort. [place] lifts or holds trunk or limbs and provides more than half the effort. 2-Khluwrbjo-twmcje does ALL the effort. Patient does none of the effort to complete the activity. Or, the assistance of 2 or more helpers is required for the patient to complete the activity. If activity was not attempted, code reason: 7-Patient Refused. 9-Not Applicable-not attempted and the patient did not perform the activity before the current illness, exacerbation or injury. 10-Not Attempted due to Environmental Limitations-(lack of equipment, weather restraints, etc.). 88-Not Attempted due to Medical Conditions or Safety Concerns. Roll Left & Right (QC): 5 Sit to Lying (QC): 5 Lying to Sitting/Side of Bed(Q: 5 Sit to Stand (QC): 5 Gait Training Does the Patient Walk?: Yes Distance: 5' x 2 Gait Assistive Device: FWW safe and functional with no deviation Exercises Seated Therapy Exercises: Ankle pumps, Long arc quads Seated Reps: 15 Standing: Marching Standing Reps: 15 Assessment Current Status: Good Progress PT Corporate Sales Representative Goals Senior Care Goals PT Corporate Sales Representative Goals Time Frame: Feb 13, 2020 Roll Left & Right (QC): 6 Sit to Lying (QC): 6 Lying-Sitting on Side/Bed(QC): 6 Sit to Stand (QC): 3 Chair/Tvn-tf-Wihuv Xfer(QC): 3 Toilet Transfer (QC): 3 PT Plan Treatment/Plan Treatment Plan: Continue Plan of Care Treatment Plan: Bed Mobility, Education, Functional Activity Fede, Functional Strength, Gait, Safety, Therapeutic Exercise, Transfers Treatment Duration: Feb 13, 2020 Frequency: 6 times per week Estimated Hrs Per Day: .25 hour per day Patient and/or Family Agrees t: Yes Time/GCodes Time In: 1000 Time Out: 1011 Total Billed Treatment Time: 11 Total Billed Treatment 1 visit EX 11 min DELMI TORRES PT Feb 07, 2020 11:04
--- NOTE | 2020-02-07 11:04 | Progress Note - Hospitalist ---
Subjective HPI/CC On Admission Date Seen by Provider: Feb 07, 2020 Time Seen by Provider: 11:02 Pt is a 60yoCF with a PMH of oxygen dependent COPD, HTN, HLD, NIDDMII who presented to the ER due to weakness and SOB. She states her symptoms started roughly two days ago with weakness and shortness of breath. She slept all day yesterday. She couldn't get out of bed even due to her weakness. On arrival to the ER she was found to be wheezing. She was given Solu-Medrol and placed on BiPAP. CXR revealed right sided pneumonia. She states she is breathing better currently. Subjective/Events-last exam Pt reports feeling better today. Breathing improved. No complaints. Focused Exam Lactate Level 02/06/20 09:38: Lactic Acid Level 0.54 Objective Exam Vital Signs Vital Signs Date Time Temp Pulse Resp B/P (MAP) Pulse Ox O2 Delivery O2 Flow Rate FiO2 02/07/20 08:00 36.9 92 24 173/108 (129) 95 Nasal Cannula 6.00 Capillary Refill : Less Than 3 SecondsLess Than 3 Seconds General Appearance: No Apparent Distress, Chronically ill, Obese Respiratory: Lungs Clear, No Accessory Muscle Use, Other (on 6lpm) Cardiovascular: Regular Rate, Rhythm, No Murmur Gastrointestinal: Normal Bowel Sounds, Non Tender, Soft Genital/Rectal: Other (robles in place) Neurologic/Psychiatric: Alert, Oriented x3, Normal Mood/Affect Results/Procedures Lab Laboratory Tests 02/07/20 05:39 Patient resulted labs reviewed. Imaging: Reviewed Imaging Report Assessment/Plan Assessment and Plan Assess & Plan/Chief Complaint Acute on Chronic hypoxic respiratory failure Right sided Pneumonia Acute COPD exacerbation Still On 6lpm up from baseline of 3lpm Continue Cefepime Continue prednisone HTN Continue home meds NIDDMII SSI continue home meds as able HLD Continue home statin DVt ppx: Lovenox Diagnosis/Problems Diagnosis/Problems (1) Acute respiratory failure with hypoxia and hypercarbia Status: Acute (2) COPD with acute exacerbation Status: Acute (3) Right lower lobe pneumonia Status: Acute Qualifiers: Pneumonia type: due to unspecified organism Qualified Codes: J18.9 - Pneumonia, unspecified organism (4) Acute on chronic respiratory failure Status: Chronic Qualifiers: Respiratory failure complication: hypoxia and hypercapnia Qualified Codes: J96.21 - Acute and chronic respiratory failure with hypoxia; J96.22 - Acute and chronic respiratory failure with hypercapnia (5) Generalized weakness Status: Acute (6) Morbid obesity Status: Acute (7) Hypertension Status: Chronic Qualifiers: Hypertension type: essential hypertension Qualified Codes: I10 - Essential (primary) hypertension (8) Bipolar disorder Status: Chronic Qualifiers: Active/Remission status: in remission of unspecified degree Qualified Cod es: F31.70 - Bipolar disorder, currently in remission, most recent episode unspecified (9) Lupus Status: Chronic Clinical Quality Measures DVT/VTE Risk/Contraindication: Risk Factor Score Per Nursin RFS Level Per Nursing on Admit: 4+=Very High DOMENICA SANDOVAL MD Feb 07, 2020 11:04
[2020-02-07 12:00] VITALS: BP 165/84
[2020-02-07] MEDS: ENOXAPARIN 40 MG/0.4 ML (LOVENOX) SYR SC SCH (14:57)
[2020-02-07] MEDS: HALOPERIDOL 5 MG/ML (HALDOL) VIAL IM PRN (15:10)
[2020-02-07 15:40] VITALS: BP 161/84
--- NOTE | 2020-02-07 18:29 | NUR ---
THIS AFTERNOON PT WAS YELLING IN HER AND AT STAFF. SHE WAS VERY CONFUSED AND DID NOT KNOW WHERE SHE WAS AT. RN CONTACTED DR SANDOVAL WHO ORDERED 2 MG HALDOL.
--- NOTE | 2020-02-07 18:58 | NUR ---
THIS RN HAS ATTEMPTED TO GET PT TO AGREE TO TAKE OUT WSEENEY CATH. SHE ASKED AT 1830 JANKI IF SHE COULD PLEASE LEAVE IT IN ONE MORE NIGHT. DR SANDOVAL OK'D AND PT NOTIFIED OF POSSIBLE ISSUES IF NOT TAKEN OUT, SHE SAID SHE UNDERSTOOD.
[2020-02-07 20:24] VITALS: BP 157/86
[2020-02-07] MEDS: PANTOPRAZOLE 20 MG TABLET (PROTONIX) PO SCH (21:40)
[2020-02-07] MEDS: DONEPEZIL 10 MG (ARICEPT) TAB PO SCH (21:40)
[2020-02-07] MEDS: OLANZapine 5 MG (ZyPREXA) TAB PO SCH (21:40)
[2020-02-08 00:10] VITALS: BP 161/84
[2020-02-08] MEDS: RT-ALBUTEROL/IPRATROPIUM 3 ML (DUONEB) VIAL INH SCH ×5 (02:56→21:11)
[2020-02-08] MEDS: ACETAMINOPHEN 325 MG TABLET PO PRN ×3 (03:09→20:44)
[2020-02-08 03:10] VITALS: BP 182/90
[2020-02-08] MEDS: CEFEPIME 1,000 MG/SWFI 10 ML IV PUSH IV SCH ×8 (03:13→20:39)
[2020-02-08 05:49] LABS: BASOPHILS % (AUTO) 0 % (0-10); EOSINOPHILS # (AUTO) 0.1 10^3/uL (0.0-0.3); EOSINOPHILS % (AUTO) 1 % (0-10); HEMATOCRIT 32 % (35-52); HEMOGLOBIN 9.1 G/DL (11.5-16.0); LYMPHOCYTES # (AUTO) 4.9 X 10^3 (1.0-4.0); LYMPHOCYTES % (AUTO) 28 % (12-44); MEAN CORPUSCULAR HEMOGLOBIN 24 PG (25-34); MEAN CORPUSCULAR HGB CONC 28 G/DL (32-36); MEAN CORPUSCULAR VOLUME 84 FL (80-99); MEAN PLATELET VOLUME 10.2 FL (7.4-10.4); MONOCYTES # (AUTO) 1.7 X 10^3 (0.0-1.0); MONOCYTES % (AUTO) 10 % (0-12); NEUTROPHILS # (AUTO) 10.8 X 10^3 (1.8-7.8); NEUTROPHILS % (AUTO) 62 % (42-75); PLATELET COUNT 383 10^3/uL (130-400); RED CELL DISTRIBUTION WIDTH 17.7 % (10.0-14.5); WHITE BLOOD COUNT 17.5 10^3/uL (4.3-11.0)
[2020-02-08 06:12] LABS: ALANINE AMINOTRANSFERASE 9 U/L (0-55); ALBUMIN 3.7 GM/DL (3.2-4.5); ALKALINE PHOSPHATASE 72 U/L (40-136); BILIRUBIN,TOTAL 0.3 MG/DL (0.1-1.0); BUN/CREATININE RATIO 24; CARBON DIOXIDE 32 MMOL/L (21-32); CHLORIDE 101 MMOL/L (98-107); CREATININE SERUM 0.88 MG/DL (0.60-1.30); GFR ESTIMATED > 60; GLUCOSE 100 MG/DL (70-105); POTASSIUM 3.8 MMOL/L (3.6-5.0); SODIUM 143 MMOL/L (135-145); TOTAL PROTEIN 6.4 GM/DL (6.4-8.2)
[2020-02-08] MEDS: CATHETER FLUSH 10 ML SYR IV SCH ×3 (06:25→22:07)
[2020-02-08] MEDS: predniSONE 20 MG TAB PO SCH (06:25)
[2020-02-08] MEDS: SUCRALFATE 1 GM (CARAFATE) TAB PO SCH ×3 (06:25→16:49)
[2020-02-08 08:00] VITALS: BP 172/101
[2020-02-08] MEDS: FOLIC ACID 1 MG TAB PO SCH (08:18)
[2020-02-08] MEDS: CYCLOBENZAPRINE 10 MG (FLEXERIL) TAB PO SCH ×2 (08:18→20:39)
[2020-02-08] MEDS: LORATADINE (CLARITIN) 10 MG TAB PO SCH (08:19)
[2020-02-08] MEDS: amLODIPine 5 MG (NORVASC) TAB PO SCH (08:19)
[2020-02-08] MEDS: meTOprolol SUCCINATE 100 MG (TOPROL XL) TAB PO SCH ×2 (08:19→20:40)
[2020-02-08] MEDS: HALOPERIDOL 5 MG/ML (HALDOL) VIAL IM PRN ×3 (08:19→16:49)
[2020-02-08 12:00] VITALS: BP 179/80
--- NOTE | 2020-02-08 12:51 | Progress Note - Hospitalist ---
Subjective HPI/CC On Admission Date Seen by Provider: Feb 08, 2020 Time Seen by Provider: 12:50 Pt is a 60yoCF with a PMH of oxygen dependent COPD, HTN, HLD, NIDDMII who presented to the ER due to weakness and SOB. She states her symptoms started roughly two days ago with weakness and shortness of breath. She slept all day yesterday. She couldn't get out of bed even due to her weakness. On arrival to the ER she was found to be wheezing. She was given Solu-Medrol and placed on BiPAP. CXR revealed right sided pneumonia. She states she is breathing better currently. Subjective/Events-last exam Pt reports feeling better today. Strength improving. breathing improving. No new complaints. Focused Exam Lactate Level 02/06/20 09:38: Lactic Acid Level 0.54 Objective Exam Vital Signs Vital Signs Date Time Temp Pulse Resp B/P (MAP) Pulse Ox O2 Delivery O2 Flow Rate FiO2 02/08/20 12:32 77 02/08/20 08:00 Nasal Cannula 6.00 02/08/20 08:00 37.1 16 172/101 (124) 94 Capillary Refill : Less Than 3 SecondsLess Than 3 Seconds General Appearance: No Apparent Distress, Chronically ill, Obese Respiratory: Lungs Clear, No Accessory Muscle Use, Other (on nasal cannula) Cardiovascular: Regular Rate, Rhythm, No Murmur Gastrointestinal: Normal Bowel Sounds, Non Tender, Soft Neurologic/Psychiatric: Alert, Oriented x3 Results/Procedures Lab Laboratory Tests 02/08/20 05:30 Patient resulted labs reviewed. Imaging: Reviewed Imaging Report Assessment/Plan Assessment and Plan Assess & Plan/Chief Complaint Acute on Chronic hypoxic respiratory failure Right sided Pneumonia Acute COPD exacerbation Down to 4lpm NC, improving Continue Cefepime Continue prednisone HTN Continue home meds NIDDMII SSI continue home meds as able HLD Continue home statin Debility PT/OT Catheter out today, encouraged out of bed as able DVt ppx: Lovenox Diagnosis/Problems Diagnosis/Problems (1) Acute respiratory failure with hypoxia and hypercarbia Status: Acute (2) COPD with acute exacerbation Status: Acute (3) Right lower lobe pneumonia Status: Acute Qualifiers: Pneumonia type: due to unspecified organism Qualified Codes: J18.9 - Pneumonia, unspecified organism (4) Acute on chronic respiratory failure Status: Chronic Qualifiers: Respiratory failure complication: hypoxia and hypercapnia Qualified Codes: J96.21 - Acute and chronic respiratory failure with hypoxia; J96.22 - Acute and chronic respiratory failure with hypercapnia (5) Generalized weakness Status: Acute (6) Morbid obesity Status: Acute (7) Hypertension Status: Chronic Qualifiers: Hypertension type: essential hypertension Qualified Codes: I10 - Essential (primary) hypertension (8) Bipolar disorder Status: Chronic Qualifiers: Active/Remission status: in remission of unspecified degree Qualified Codes: F31.70 - Bipolar disorder, currently in remission, most recent episode unspecified (9) Lupus Status: Chronic Clinical Quality Measures DVT/VTE Risk/Contraindication: Risk Factor Score Per Nursin RFS Level Per Nursing on Admit: 4+=Very High DOMENICA SANDOVAL MD Feb 08, 2020 12:51
[2020-02-08] MEDS: ENOXAPARIN 40 MG/0.4 ML (LOVENOX) SYR SC SCH (13:46)
--- NOTE | 2020-02-08 16:13 | NUR ---
PT IS CONFUSED. PT IS NOT WANTING TO TAKE HER BREATHING TREATMENTS. PT BELIEVES SHE HAS A CONTINOUS BREATHING TREATMENT GOING ON. Addendum: 02/08/20 at 1615 by NILDA WANG RT Amended: Links added.
[2020-02-08 16:32] VITALS: BP 146/71
[2020-02-08 20:20] VITALS: BP 162/83
[2020-02-08] MEDS: DONEPEZIL 10 MG (ARICEPT) TAB PO SCH (20:39)
[2020-02-08] MEDS: PANTOPRAZOLE 20 MG TABLET (PROTONIX) PO SCH (20:40)
[2020-02-08] MEDS: OLANZapine 5 MG (ZyPREXA) TAB PO SCH (20:44)
[2020-02-09] VITALS (7 sets, daily range): BP systolic 134–167; BP diastolic 63–93
[2020-02-09] MEDS: RT-ALBUTEROL/IPRATROPIUM 3 ML (DUONEB) VIAL INH SCH ×8 (02:01→22:02)
[2020-02-09] MEDS: HALOPERIDOL 5 MG/ML (HALDOL) VIAL IM PRN (02:19)
[2020-02-09] MEDS: CEFEPIME 1,000 MG/SWFI 10 ML IV PUSH IV SCH ×8 (02:19→20:55)
[2020-02-09] MEDS: CATHETER FLUSH 10 ML SYR IV SCH ×3 (06:17→22:51)
[2020-02-09 06:25] LABS: BASOPHILS # (AUTO) 0.1 10^3/uL (0.0-0.1); BASOPHILS % (AUTO) 0 % (0-10); EOSINOPHILS # (AUTO) 0.3 10^3/uL (0.0-0.3); EOSINOPHILS % (AUTO) 2 % (0-10); HEMATOCRIT 34 % (35-52); HEMOGLOBIN 9.3 G/DL (11.5-16.0); LYMPHOCYTES # (AUTO) 3.7 X 10^3 (1.0-4.0); LYMPHOCYTES % (AUTO) 24 % (12-44); MEAN CORPUSCULAR HEMOGLOBIN 23 PG (25-34); MEAN CORPUSCULAR HGB CONC 28 G/DL (32-36); MEAN CORPUSCULAR VOLUME 84 FL (80-99); MEAN PLATELET VOLUME 9.8 FL (7.4-10.4); MONOCYTES # (AUTO) 1.2 X 10^3 (0.0-1.0); MONOCYTES % (AUTO) 8 % (0-12); NEUTROPHILS # (AUTO) 10.1 X 10^3 (1.8-7.8); NEUTROPHILS % (AUTO) 66 % (42-75); PLATELET COUNT 380 10^3/uL (130-400); RED CELL DISTRIBUTION WIDTH 17.9 % (10.0-14.5); WHITE BLOOD COUNT 15.4 10^3/uL (4.3-11.0)
[2020-02-09] MEDS: SUCRALFATE 1 GM (CARAFATE) TAB PO SCH ×3 (06:26→18:08)
[2020-02-09] MEDS: predniSONE 20 MG TAB PO SCH (06:26)
[2020-02-09 06:45] LABS: ALBUMIN 3.7 GM/DL (3.2-4.5); CHLORIDE 102 MMOL/L (98-107); POTASSIUM 3.4 MMOL/L (3.6-5.0); SODIUM 143 MMOL/L (135-145)
[2020-02-09 06:47] LABS: CALCIUM 8.6 MG/DL (8.5-10.1)
[2020-02-09 06:48] LABS: GLUCOSE 102 MG/DL (70-105); TOTAL PROTEIN 6.3 GM/DL (6.4-8.2)
[2020-02-09 06:49] LABS: CARBON DIOXIDE 31 MMOL/L (21-32)
[2020-02-09 06:50] LABS: BILIRUBIN,TOTAL 0.3 MG/DL (0.1-1.0)
[2020-02-09 06:51] LABS: ALKALINE PHOSPHATASE 68 U/L (40-136); CREATININE SERUM 0.85 MG/DL (0.60-1.30); GFR ESTIMATED > 60
[2020-02-09 06:53] LABS: BUN/CREATININE RATIO 31
[2020-02-09 06:54] LABS: ALANINE AMINOTRANSFERASE 11 U/L (0-55)
[2020-02-09] MEDS: CYCLOBENZAPRINE 10 MG (FLEXERIL) TAB PO SCH ×2 (08:27→20:55)
[2020-02-09] MEDS: amLODIPine 5 MG (NORVASC) TAB PO SCH (08:27)
[2020-02-09] MEDS: LORATADINE (CLARITIN) 10 MG TAB PO SCH (08:27)
[2020-02-09] MEDS: meTOprolol SUCCINATE 100 MG (TOPROL XL) TAB PO SCH ×2 (08:27→20:55)
[2020-02-09] MEDS: FOLIC ACID 1 MG TAB PO SCH (08:29)
[2020-02-09] MEDS ORDERED: BENZTROPINE 2 MG/2 ML INJ (COGENTIN) AMP IM NR (09:45)
--- NOTE | 2020-02-09 09:52 | Physical Therapy Progress Note ---
Therapy Progress Note Patient is currently too sedated to actively participate with therapy. PT will attempt later today. 1 visit DELMI TORRES PT Feb 09, 2020 09:52
[2020-02-09 10:14] LABS: ABG BASE EXCESS 9.8 MMOL/L (-2.5-2.5); ABG OXYGEN SATURATION 98 % (94-100); ABG PCO2 69 MMHG (35-45); ABG PO2 97 MMHG (79-93)
--- NOTE | 2020-02-09 10:14 | NUR ---
Pt is [facility] and would like sacraments. will provide Communion and notify graduate advisor. Addendum: 02/09/20 at 1542 by SCOTT GUTIERREZ provided Communion and notified graduate advisor.
[2020-02-09 10:22] LABS: ABG PH 7.34 (7.37-7.43)
[2020-02-09 10:23] LABS: ALLENS TEST YES-POS; INSPIRED O2 6; PATIENT TEMP 36.5; VENTILATOR NO
--- NOTE | 2020-02-09 10:27 | NUR ---
Notified by lab at this time of critical ph 7.34, Dr. Delgado in patient room and notified of lab results. New orders to place patient on bipap. Malick from RT notified at this time.
--- NOTE | 2020-02-09 13:36 | Progress Note - Hospitalist ---
Subjective HPI/CC On Admission Date Seen by Provider: Feb 09, 2020 Time Seen by Provider: 09:40 Pt is a 60yoCF with a PMH of oxygen dependent COPD, HTN, HLD, NIDDMII who presented to the ER due to weakness and SOB. She states her symptoms started roughly two days ago with weakness and shortness of breath. She slept all day yesterday. She couldn't get out of bed even due to her weakness. On arrival to the ER she was found to be wheezing. She was given Solu-Medrol and placed on BiPAP. CXR revealed right sided pneumonia. She states she is breathing better currently. Subjective/Events-last exam she is disoriented this morning. She is not able to provide any information. Objective Exam Vital Signs Vital Signs Date Time Temp Pulse Resp B/P (MAP) Pulse Ox O2 Delivery O2 Flow Rate FiO2 02/09/20 12:05 35.9 83 20 150/84 (106) 98 NIV Bilevel 50.00 Capillary Refill : Less Than 3 SecondsLess Than 3 Seconds General Appearance: No Apparent Distress, Obese HEENT: Pharynx Normal, Other (pinpoint pupils bilaterally) Neck: Normal Inspection, Supple Respiratory: Lungs Clear, Normal Breath Sounds, No Respiratory Distress Cardiovascular: Regular Rate, Rhythm, No Murmur Gastrointestinal: Normal Bowel Sounds, Non Tender, Soft Extremity: Normal Inspection, Non Tender, No Pedal Edema Neurologic/Psychiatric: Alert, Disoriented, Other (diffuse twitching) Skin: Normal Color, Warm/Dry Results/Procedures Lab Laboratory Tests 02/09/20 06:20 Patient resulted labs reviewed. Imaging: Reviewed Imaging Report Assessment/Plan Assessment and Plan Assess & Plan/Chief Complaint Acute on chronic respiratory failure with hypoxia and hypercapnia Pneumonia Acute COPD exacerbation ABG with acute hypercapnic respiratory failure Begin BiPAP Continue Cefepime Continue prednisone Extrapyramidal symptoms Give one time dose Cogentin Discontinue Haldol HTN Continue home meds NIDDMII SSI continue home meds as able HLD Continue home statin Debility PT/OT DVt ppx: Lovenox Diagnosis/Problems Diagnosis/Problems (1) Acute on chronic respiratory failure with hypoxia and hypercapnia Status: Acute (2) COPD with acute exacerbation Status: Acute (3) Right lower lobe pneumonia Status: Acute Qualifiers: Pneumonia type: due to unspecified organism Qualified Codes: J18.9 - Pneumonia, unspecified organism Clinical Quality Measures DVT/VTE Risk/Contraindication: Risk Factor Score Per Nursin RFS Level Per Nursing on Admit: 4+=Very High JAYCOB DOWNEY MD Feb 09, 2020 13:36
--- NOTE | 2020-02-09 13:58 | Physical Therapy Daily Note ---
PT Daily Note-Current Subjective Patient is more alert and agrees to PT. Mental Status Patient Orientation: Confused Attachments: Oxygen Transfers SCALE: Activities may be completed with or without assistive devices. 5-Vcsyjjjotk-iuhunbi completes the activity by him/herself with no assistance from a helper. 5-Set-up or Clean-up Assistance-helper sets up or cleans up; patient completes activity. [place] assists only prior to or following the activity. 4-Supervision or Touching Assistance-helper provides verbal cues and/or touching/steadying and/or contact guard assistance as patient completes activity. Assistance may be provided throughout the activity or intermittently. 3-Partial/Moderate Assistance-helper does LESS THAN HALF the effort. [place] lifts, holds or supports trunk or limbs, but provides less than half the effort. 2-Substantial/Maximal Assistance-helper does MORE THAN HALF the effort. [place] lifts or holds trunk or limbs and provides more than half the effort. 0-Wxxagzrvg-przcnq does ALL the effort. Patient does none of the effort to complete the activity. Or, the assistance of 2 or more helpers is required for the patient to complete the activity. If activity was not attempted, code reason: 7-Patient Refused. 9-Not Applicable-not attempted and the patient did not perform the activity before the current illness, exacerbation or injury. 10-Not Attempted due to Environmental Limitations-(lack of equipment, weather restraints, etc.). 88-Not Attempted due to Medical Conditions or Safety Concerns. Sit to Stand (QC): 5 Toilet Transfer (QC): 5 Gait Training Does the Patient Walk?: Yes Distance: 10' x 2 Walk 10 feet (QC): 5 Gait Assistive Device: FWW Exercises Seated Therapy Exercises: Ankle pumps, Long arc quads, Hip flexion Seated Reps: 15 Assessment Patient remains confused, however, did cooperate with therapy this p.m. PT Machine Zipper Trimmer Goals Intermediate Goals PT Machine Zipper Trimmer Goals Time Frame: Feb 13, 2020 Roll Left & Right (QC): 6 Sit to Lying (QC): 6 Lying-Sitting on Side/Bed(QC): 6 Sit to Stand (QC): 3 Chair/Zsc-mm-Jrygx Xfer(QC): 3 Toilet Transfer (QC): 3 PT Plan Treatment/Plan Treatment Plan: Continue Plan of Care Treatment Plan: Bed Mobility, Education, Functional Activity Fede, Functional Strength, Gait, Safety, Therapeutic Exercise, Transfers Treatment Duration: Feb 13, 2020 Frequency: 6 times per week Estimated Hrs Per Day: .25 hour per day Patient and/or Family Agrees t: Yes Time/GCodes Time In: 1331 Time Out: 1347 Total Billed Treatment Time: 16 Total Billed Treatment 1 visit FA 16 min DELMI TORRES PT Feb 09, 2020 13:58
--- NOTE | 2020-02-09 14:22 | Occupational Ther Daily Note ---
OT Current Status-Daily Note Subjective Pt completing sponge bath with aide, agreeable to OT Tx. Pt did not report any pain during tx. Mental Status/Objective Patient Orientation: Person, Confused ADL-Treatment Therapy Code Descriptions/Definitions Functional [place] Measure: 0=Not Assessed/NA 4=Minimal Assistance 1=Total Assistance 5=Supervision or Setup 2=Maximal Assistance 6=Modified [place] 3=Moderate Assistance 7=Complete IndependenceSCALE: Activities may be completed with or without assistive devices. 0-Yffyurygmn-euwzioq completes the activity by him/herself with no assistance from a helper. 5-Set-up or Clean-up Assistance-helper sets up or cleans up; patient completes activity. [place] assists only prior to or following the activity. 4-Supervision or Touching Assistance-helper provides verbal cues and/or touchi ng/steadying and/or contact guard assistance as patient completes activity. Assistance may be provided throughout the activity or intermittently. 3-Partial/Moderate Assistance-helper does LESS THAN HALF the effort. [place] lifts, holds or supports trunk or limbs, but provides less than half the effort. 2-Substantial/Maximal Assistance-helper does MORE THAN HALF the effort. [place] lifts or holds trunk or limbs and provides more than half the effort. 8-Hlovuczns-scuijn does ALL the effort. Patient does none of the effort to complete the activity. Or, the assistance of 2 or more helpers is required for the patient to complete the activity. If activity was not attempted, code reason: 7-Patient Refused. 9-Not Applicable-not attempted and the patient did not perform the activity before the current illness, exacerbation or injury. 10-Not Attempted due to Environmental Limitations-(lack of equipment, weather restraints, etc.). 88-Not Attempted due to Medical Conditions or Safety Concerns. Bathing Location: L Arm, R Arm, L Upper Leg, R Upper Leg, Chest, Abdomen, Buttocks, Perineal Area Shower/Bathe Self (QC): 3 (Pt completed sponge bath at recliner. pt required assistance with washing her back, and feet.) Upper Body Dressing (QC): 3 (Min A with donning gown. Pt threaded LUE into gown through buttons, required assistance to fix and put arm through correct arm hole.) Toileting Hygiene (QC): 4 (SBA, pt able to manage briefs down/up, and perform pericare and wash buttocks.) Other Treatment Pt seated in recliner with aide, pt completing sponge bath. Aide reports pt had already washed LEs except feet, and pt in the process of washing her upper body. OT assisted pt with washing her back and finishing sponge bath. Pt stood at FWW with SBA to complete pericare and to wash buttocks. Pt took seated rest break. Once pt had rested, she stood back up to manage pants up, then donned gown. OT assisted pt with RUE into gown due to pt attempting to put her arm between snaps on the gown instead of through the opening of the sleeve. OT also assisted pt with tying gown behind her head. Pt requested assistance with brushing her hair, she is able to complete task at home with a wide comb but states unable to complete with hospital brush. OT assists pt with getting knots out of her hair. Pt then asked "Where's my gown? I don't have any clothes here." OT cued pt that she had already put the gown on. Post OT Tx, pt seated in recliner, call light in reach and all needs met. Education OT Patient Education: Correct positioning, Modified ADL techniques, Progress toward Goal/Update tx plan, Purpose of tx/functional activities, Safety issues, Transfer techniques Teaching Recipient: Patient Teaching Methods: Discussion Response to Teaching: Verbalize Understanding OT Prison Goals Industrial Workers Goals Time Frame: Feb 13, 2020 Eating (QC): 6 Oral Hygiene (QC): 6 Toileting Hygiene (QC): 6 Shower/Bathe Self (QC): 6 Upper Body Dressing (QC): 6 Lower Body Dressing (QC): 6 On/Off Footwear (QC): 6 1=Demonstrate adherence to instructed precautions during ADL tasks. 2=Patient will verbalize/demonstrate understanding of assistive devices/modifications for ADL. 3=Patient will improve strength/tolerance for activity to enable patient to perform ADL's. OT Education/Plan Problem List/Assessment Assessment: Decreased Activ Tolerance, Decreased UE Strength Discharge Recommendations Plan/Recommendations: Continue POC Treatment Plan/Plan of Care Patient would benefit from OT for education, treatment and training to promote independence in ADL's, mobility, safety and/or upper extremity function for ADL's. Plan of Care: ADL Retraining, Functional Mobility, UE Funct Exercise/Act Treatment Duration: Feb 13, 2020 Frequency: 5 times per week Estimated Hrs Per Day: .25 hour per day Agreement: Yes Rehab Potential: Fair Time/GCodes Start Time: 13:50 Stop Time: 14:13 Total Time Billed (hr/min): 23 Billed Treatment Time 1, ADL 2 GAMA DIEGO OT Feb 09, 2020 14:22
[2020-02-09] MEDS: ENOXAPARIN 40 MG/0.4 ML (LOVENOX) SYR SC SCH (14:30)
--- NOTE | 2020-02-09 16:40 | NUR ---
PATIENT SAT ON ROOM AIR WAS 87 PATIENT PLACED BACK ON OXYGEN AND SAT CAME UP TO 94% RECOMMENDS 3 L/M OXYGEN CAUTIOUS Addendum: 02/09/20 at 1642 by XAVIER AGUILAR RT Amended: Links added.
[2020-02-09] MEDS: PANTOPRAZOLE 20 MG TABLET (PROTONIX) PO SCH (20:55)
[2020-02-09] MEDS: OLANZapine 5 MG (ZyPREXA) TAB PO SCH (20:55)
[2020-02-09] MEDS: DONEPEZIL 10 MG (ARICEPT) TAB PO SCH (20:55)
[2020-02-10] VITALS: BP 148/69
[2020-02-10] MEDS: RT-ALBUTEROL/IPRATROPIUM 3 ML (DUONEB) VIAL INH SCH ×6 (02:30→22:12)
[2020-02-10] MEDS: CEFEPIME 1,000 MG/SWFI 10 ML IV PUSH IV SCH ×8 (02:39→21:22)
[2020-02-10 04:13] VITALS: BP 133/68
[2020-02-10 05:45] LABS: BASOPHILS % (AUTO) 0 % (0-10); EOSINOPHILS # (AUTO) 0.3 10^3/uL (0.0-0.3); EOSINOPHILS % (AUTO) 2 % (0-10); HEMATOCRIT 34 % (35-52); HEMOGLOBIN 9.2 G/DL (11.5-16.0); LYMPHOCYTES # (AUTO) 3.6 X 10^3 (1.0-4.0); LYMPHOCYTES % (AUTO) 24 % (12-44); MEAN CORPUSCULAR HEMOGLOBIN 24 PG (25-34); MEAN CORPUSCULAR HGB CONC 27 G/DL (32-36); MEAN CORPUSCULAR VOLUME 87 FL (80-99); MONOCYTES # (AUTO) 1.5 X 10^3 (0.0-1.0); MONOCYTES % (AUTO) 10 % (0-12); NEUTROPHILS # (AUTO) 9.5 X 10^3 (1.8-7.8); NEUTROPHILS % (AUTO) 64 % (42-75); PLATELET COUNT 347 10^3/uL (130-400); RED CELL DISTRIBUTION WIDTH 17.6 % (10.0-14.5); WHITE BLOOD COUNT 14.9 10^3/uL (4.3-11.0)
[2020-02-10] MEDS: CATHETER FLUSH 10 ML SYR IV SCH ×2 (05:48→13:28)
[2020-02-10 06:10] LABS: ALANINE AMINOTRANSFERASE 12 U/L (0-55); ALBUMIN 3.6 GM/DL (3.2-4.5); ALKALINE PHOSPHATASE 70 U/L (40-136); BILIRUBIN,TOTAL 0.2 MG/DL (0.1-1.0); BUN/CREATININE RATIO 33; CALCIUM 9.1 MG/DL (8.5-10.1); CARBON DIOXIDE 31 MMOL/L (21-32); CHLORIDE 101 MMOL/L (98-107); CREATININE SERUM 0.87 MG/DL (0.60-1.30); GFR ESTIMATED > 60; GLUCOSE 98 MG/DL (70-105); POTASSIUM 3.9 MMOL/L (3.6-5.0); SODIUM 143 MMOL/L (135-145); TOTAL PROTEIN 6.1 GM/DL (6.4-8.2)
[2020-02-10] MEDS: predniSONE 20 MG TAB PO SCH (06:45)
[2020-02-10] MEDS: SUCRALFATE 1 GM (CARAFATE) TAB PO SCH ×3 (06:45→16:56)
[2020-02-10 08:00] VITALS: BP 135/79
[2020-02-10] MEDS: amLODIPine 5 MG (NORVASC) TAB PO SCH (08:59)
[2020-02-10] MEDS: LORATADINE (CLARITIN) 10 MG TAB PO SCH (09:04)
[2020-02-10] MEDS: FOLIC ACID 1 MG TAB PO SCH (09:04)
[2020-02-10] MEDS: meTOprolol SUCCINATE 100 MG (TOPROL XL) TAB PO SCH ×2 (09:04→21:22)
--- NOTE | 2020-02-10 10:59 | Occ Therapy Progress Note ---
Therapy Progress Note Pt laying in bed, eyes closed. OT introduced self to pt and provided tactile/verbal cues for pt to open her eyes to participate in therapy. Pt briefly opened one eye then closed it, she did not respond to any cues given. Pt too lethargic to actively participate with therapy at this time. OT will attempt later today. GAMA DIEGO OT Feb 10, 2020 10:59
--- NOTE | 2020-02-10 11:24 | Physical Therapy Progress Note ---
Therapy Progress Note Patient is in bed and would not open her eyes. She adamantly declined stating, "Leave me alone. I don't feel good and I'm not going to do anything". RN notified. 1 ref ([id number]) DELMI TORRES PT Feb 10, 2020 11:24
[2020-02-10 12:00] VITALS: BP 134/75
--- NOTE | 2020-02-10 12:59 | Progress Note - Hospitalist ---
Subjective HPI/CC On Admission Date Seen by Provider: Feb 10, 2020 Time Seen by Provider: 10:05 Pt is a 60yoCF with a PMH of oxygen dependent COPD, HTN, HLD, NIDDMII who presented to the ER due to weakness and SOB. She states her symptoms started roughly two days ago with weakness and shortness of breath. She slept all day yesterday. She couldn't get out of bed even due to her weakness. On arrival to the ER she was found to be wheezing. She was given Solu-Medrol and placed on BiPAP. CXR revealed right sided pneumonia. She states she is breathing better currently. Subjective/Events-last exam she reports feeling lethargic today although she is much more alert than yesterday. She reports that her butt hurts. She denies any fevers or chills. She denies any shortness of breath or cough. She denies any abdominal pain, nausea, or vomiting. She has no other complaints or concerns. Objective Exam Vital Signs Vital Signs Date Time Temp Pulse Resp B/P (MAP) Pulse Ox O2 Delivery O2 Flow Rate FiO2 02/10/20 12:00 36.6 79 20 134/75 (94) 91 High Flow N/C 2.00 02/09/20 16:02 50 Capillary Refill : Less Than 3 SecondsLess Than 3 Seconds General Appearance: No Apparent Distress, Anxious, Obese HEENT: PERRL/EOMI, Pharynx Normal Neck: Normal Inspection, Supple Respiratory: No Respiratory Distress, Decreased Breath Sounds Cardiovascular: Regular Rate, Rhythm, No Edema, No Murmur Gastrointestinal: Normal Bowel Sounds, Non Tender, Soft Extremity: Normal Inspection, Non Tender, No Pedal Edema Neurologic/Psychiatric: Alert, No Motor/Sensory Deficits; No Disoriented Skin: Warm/Dry, Pallor Results/Procedures Lab Laboratory Tests 02/10/20 05:36 Patient resulted labs reviewed. Imaging: Reviewed Imaging Report Assessment/Plan Assessment and Plan Assess & Plan/Chief Complaint Acute on chronic respiratory failure with hypoxia and hypercapnia Pneumonia Acute COPD exacerbation ABG with acute hypercapnic respiratory failure continue BiPAP at night Continue Cefepime Continue prednisone consult pulmonology Extrapyramidal symptoms Discontinued Haldol begin Cogentin HTN Continue home meds NIDDMII SSI continue home meds as able HLD Continue home statin Debility PT/OT DVt ppx: Lovenox Diagnosis/Problems Diagnosis/Problems (1) Acute on chronic respiratory failure with hypoxia and hypercapnia Status: Acute (2) COPD with acute exacerbation Status: Acute (3) Right lower lobe pneumonia Status: Acute Qualifiers: Pneumonia type: due to unspecified organism Qualified Codes: J18.9 - Pneumonia, unspecified organism Clinical Quality Measures DVT/VTE Risk/Contraindication: Risk Factor Score Per Nursin RFS Level Per Nursing on Admit: 4+=Very High JAYCOB DOWNEY MD Feb 10, 2020 12:59
--- NOTE | 2020-02-10 14:17 | Physical Therapy Daily Note ---
PT Daily Note-Current Subjective Patient is more alert and cooperative this p.m. Mental Status Patient Orientation: Person, Time, [place] Transfers SCALE: Activities may be completed with or without assistive devices. 3-Htpzglirfn-evgqoru completes the activity by him/herself with no assistance from a helper. 5-Set-up or Clean-up Assistance-helper sets up or cleans up; patient completes activity. [place] assists only prior to or following the activity. 4-Supervision or Touching Assistance-helper provides verbal cues and/or touch ing/steadying and/or contact guard assistance as patient completes activity. Assistance may be provided throughout the activity or intermittently. 3-Partial/Moderate Assistance-helper does LESS THAN HALF the effort. [place] lifts, holds or supports trunk or limbs, but provides less than half the effort. 2-Substantial/Maximal Assistance-helper does MORE THAN HALF the effort. [place] lifts or holds trunk or limbs and provides more than half the effort. 3-Uqpvvdhej-khplaq does ALL the effort. Patient does none of the effort to complete the activity. Or, the assistance of 2 or more helpers is required for the patient to complete the activity. If activity was not attempted, code reason: 7-Patient Refused. 9-Not Applicable-not attempted and the patient did not perform the activity before the current illness, exacerbation or injury. 10-Not Attempted due to Environmental Limitations-(lack of equipment, weather restraints, etc.). 88-Not Attempted due to Medical Conditions or Safety Concerns. Sit to Lying (QC): 5 Sit to Stand (QC): 5 Chair/Khf-dm-Camkz Xfer(QC): 5 Toilet Transfer (QC): 5 Gait Training Does the Patient Walk?: Yes Distance: 15' Walk 10 feet (QC): 5 Gait Assistive Device: FWW functional with no deviation/ambulated to shower with FWW Assessment Patient demonstrates the ability to perform gross motor tasks, however, is inconsistent to do so. PT to increase activity as tolerated by patient. PT Jail Goals Ice Resurfacing Machine Operators Goals PT Ice Resurfacing Machine Operators Goals Time Frame: Feb 13, 2020 Roll Left & Right (QC): 6 Sit to Lying (QC): 6 Lying-Sitting on Side/Bed(QC): 6 Sit to Stand (QC): 3 Chair/Gak-ng-Regrq Xfer(QC): 3 Toilet Transfer (QC): 3 PT Plan Treatment/Plan Treatment Plan: Continue Plan of Care Treatment Plan: Bed Mobility, Education, Functional Activity Fede, Functional Strength, Gait, Safety, Therapeutic Exercise, Transfers Treatment Duration: Feb 13, 2020 Frequency: 6 times per week Estimated Hrs Per Day: .25 hour per day Patient and/or Family Agrees t: Yes Time/GCodes Time In: 1335 Time Out: 1345 Total Billed Treatment Time: 10 Total Billed Treatment 1 visit FA 10 min DELMI TORRES PT Feb 10, 2020 14:17
--- NOTE | 2020-02-10 14:17 | Occupational Ther Daily Note ---
OT Current Status-Daily Note Subjective Pt in shower area with aide present, getting ready to shower. Pt agreeable to OT tx. Mental Status/Objective Patient Orientation: Person ADL-Treatment Therapy Code Descriptions/Definitions Functional [place] Measure: 0=Not Assessed/NA 4=Minimal Assistance 1=Total Assistance 5=Supervision or Setup 2=Maximal Assistance 6=Modified [place] 3=Moderate Assistance 7=Complete IndependenceSCALE: Activities may be completed with or without assistive devices. 7-Oigmppipqt-feecwtj completes the activity by him/herself with no assistance from a helper. 5-Set-up or Clean-up Assistance-helper sets up or cleans up; patient completes activity. [place] assists only prior to or following the activity. 4-Supervision or Touching Assistance-helper provides verbal cues and/or touching/steadying and/or contact guard assistance as patient completes activity. Assistance may be provided throughout the activity or intermittently. 3-Partial/Moderate Assistance-helper does LESS THAN HALF the effort. [place] lifts, holds or supports trunk or limbs, but provides less than half the effort. 2-Substantial/Maximal Assistance-helper does MORE THAN HALF the effort. [place] lifts or holds trunk or limbs and provides more than half the effort. 9-Lsimljgyy-morwee does ALL the effort. Patient does none of the effort to complete the activity. Or, the assistance of 2 or more helpers is required for the patient to complete the activity. If activity was not attempted, code reason: 7-Patient Refused. 9-Not Applicable-not attempted and the patient did not perform the activity before the current illness, exacerbation or injury. 10-Not Attempted due to Environmental Limitations-(lack of equipment, weather restraints, etc.). 88-Not Attempted due to Medical Conditions or Safety Concerns. Shower/Bathe Self (QC): 2 (Pt's nurse request pt to not over exert self. Pt washed chest/abdomen, and periarea/buttocks. Pt required assistance with washing BUEs/BLEs, back, and hair in order to not over do it.) Upper Body Dressing (QC): 3 (Pt threaded BUEs into hospital gown, assistance tying behind neck) Lower Body Dressing (QC): 2 (Pt lifted legs into air for donning brief, assistance with managing up over hips) On/Off Footwear: 2 (Pt held foot forward as OT donned socks, Pt able to cross LLE over R knee to orient sock) Other Treatment Pt seated on SC, just beginning shower with aide. OT assisted pt with completing shower, pt's nurse states for pt to take it easy in the shower and not over exert herself. Pt able to wash chest/abdomen, periarea and buttocks, assistance for all other areas to comply with nurse request. Pt then donned gown, brief and socks seated at [place]. Pt stood at FWW, requesting to return to bed, pt ambulated from SC to EOB with CGA. Post OT Tx, pt seated EOB with aide present, call light in reach and all needs met. Education OT Patient Education: Correct positioning, Modified ADL techniques, Progress toward Goal/Update tx plan, Purpose of tx/functional activities, Safety issues, Transfer techniques Teaching Recipient: Patient Teaching Methods: Discussion Response to Teaching: Verbalize Understanding OT Dough Molder Hand Goals Dough Molder Hand Goals Time Frame: Feb 13, 2020 Eating (QC): 6 Oral Hygiene (QC): 6 Toileting Hygiene (QC): 6 Shower/Bathe Self (QC): 6 Upper Body Dressing (QC): 6 Lower Body Dressing (QC): 6 On/Off Footwear (QC): 6 1=Demonstrate adherence to instructed precautions during ADL tasks. 2=Patient will verbalize/demonstrate understanding of assistive devices/modifications for ADL. 3=Patient will improve strength/tolerance for activity to enable patient to perform ADL's. OT Education/Plan Problem List/Assessment Assessment: Decreased Activ Tolerance, Decreased UE Strength, Impaired Funct Balance, Impaired I ADL's, Impaired Self-Care Skills Discharge Recommendations Plan/Recommendations: Continue POC Treatment Plan/Plan of Care Patient would benefit from OT for education, treatment and training to promote independence in ADL's, mobility, safety and/or upper extremity function for ADL's. Plan of Care: ADL Retraining, Functional Mobility, UE Funct Exercise/Act Treatment Duration: Feb 13, 2020 Frequency: 5 times per week Estimated Hrs Per Day: .25 hour per day Agreement: Yes Rehab Potential: Fair Time/GCodes Start Time: 13:45 Stop Time: 14:09 Total Time Billed (hr/min): 24 Billed Treatment Time 1, ADL 2 GAMA DIEGO OT Feb 10, 2020 14:17
--- NOTE | 2020-02-10 15:05 | Diagnostic Imaging Report ---
INDICATION: Shortness of breath. COMPARISON: Comparison is made to prior examination from 02/06/2020. FINDINGS: There is cardiomegaly. Some left basilar atelectasis and pneumonitis. There is no pleural effusion or pneumothorax. Some right apical pleural thickening or scarring. Mediastinum is unremarkable. IMPRESSION: Right apical pleural thickening or scarring as well as some left basilar atelectasis and pneumonitis. Cardiomegaly. Dictated by: Dictated on workstation # [id number]
[2020-02-10 15:30] VITALS: BP 149/72
[2020-02-10] MEDS: ENOXAPARIN 40 MG/0.4 ML (LOVENOX) SYR SC SCH (16:04)
[2020-02-10] MEDS: RT-BUDESONIDE NEBS 0.5 MG/2ML (PULMICORT) AMP INH SCH (19:06)
[2020-02-10 20:00] VITALS: BP 169/74
[2020-02-10] MEDS: ACETAMINOPHEN 325 MG TABLET PO PRN (21:22)
[2020-02-10] MEDS: OLANZapine 5 MG (ZyPREXA) TAB PO SCH (21:22)
[2020-02-10] MEDS: DONEPEZIL 10 MG (ARICEPT) TAB PO SCH (21:22)
[2020-02-10] MEDS: PANTOPRAZOLE 20 MG TABLET (PROTONIX) PO SCH (21:22)
[2020-02-11 00:01] VITALS: BP 164/67
[2020-02-11] MEDS: CATHETER FLUSH 10 ML SYR IV SCH ×3 (00:01→15:03)
[2020-02-11] MEDS: RT-ALBUTEROL/IPRATROPIUM 3 ML (DUONEB) VIAL INH SCH ×4 (02:36→14:09)
[2020-02-11] MEDS: CEFEPIME 1,000 MG/SWFI 10 ML IV PUSH IV SCH ×6 (03:02→14:58)
[2020-02-11 03:57] VITALS: BP 136/73
[2020-02-11 05:31] LABS: BASOPHILS % (AUTO) 0 % (0-10); EOSINOPHILS # (AUTO) 0.4 10^3/uL (0.0-0.3); EOSINOPHILS % (AUTO) 3 % (0-10); HEMATOCRIT 30 % (35-52); HEMOGLOBIN 8.4 G/DL (11.5-16.0); LYMPHOCYTES # (AUTO) 4.5 X 10^3 (1.0-4.0); LYMPHOCYTES % (AUTO) 29 % (12-44); MEAN CORPUSCULAR HGB CONC 28 G/DL (32-36); MEAN CORPUSCULAR VOLUME 84 FL (80-99); MEAN PLATELET VOLUME 10.1 FL (7.4-10.4); MONOCYTES # (AUTO) 1.1 X 10^3 (0.0-1.0); MONOCYTES % (AUTO) 7 % (0-12); NEUTROPHILS # (AUTO) 9.3 X 10^3 (1.8-7.8); NEUTROPHILS % (AUTO) 61 % (42-75); PLATELET COUNT 350 10^3/uL (130-400); RED CELL DISTRIBUTION WIDTH 17.6 % (10.0-14.5); WHITE BLOOD COUNT 15.4 10^3/uL (4.3-11.0)
[2020-02-11 05:44] LABS: ALBUMIN 3.4 GM/DL (3.2-4.5); CHLORIDE 101 MMOL/L (98-107); POTASSIUM 3.8 MMOL/L (3.6-5.0); SODIUM 141 MMOL/L (135-145)
[2020-02-11 05:45] LABS: CALCIUM 8.4 MG/DL (8.5-10.1)
[2020-02-11 05:46] LABS: GLUCOSE 97 MG/DL (70-105); TOTAL PROTEIN 5.8 GM/DL (6.4-8.2)
[2020-02-11 05:47] LABS: CARBON DIOXIDE 29 MMOL/L (21-32)
[2020-02-11 05:48] LABS: BILIRUBIN,TOTAL 0.4 MG/DL (0.1-1.0)
[2020-02-11 05:50] LABS: ALKALINE PHOSPHATASE 82 U/L (40-136); CREATININE SERUM 0.84 MG/DL (0.60-1.30); GFR ESTIMATED > 60
[2020-02-11 05:51] LABS: BUN/CREATININE RATIO 37
[2020-02-11 05:53] LABS: ALANINE AMINOTRANSFERASE 12 U/L (0-55)
[2020-02-11 05:56] LABS: MEAN CORPUSCULAR HEMOGLOBIN 23 PG (25-34)
[2020-02-11] MEDS: SUCRALFATE 1 GM (CARAFATE) TAB PO SCH ×2 (06:41→12:39)
[2020-02-11] MEDS: predniSONE 20 MG TAB PO SCH (06:41)
[2020-02-11 08:00] VITALS: BP 169/80
[2020-02-11] MEDS: amLODIPine 5 MG (NORVASC) TAB PO SCH (08:45)
[2020-02-11] MEDS: meTOprolol SUCCINATE 100 MG (TOPROL XL) TAB PO SCH (08:45)
[2020-02-11] MEDS: FOLIC ACID 1 MG TAB PO SCH (08:45)
[2020-02-11] MEDS: LORATADINE (CLARITIN) 10 MG TAB PO SCH (08:45)
[2020-02-11] MEDS: ACETAMINOPHEN 325 MG TABLET PO PRN (08:54)
--- NOTE | 2020-02-11 09:22 | Pulmonary Consultation ---
History of Present Illness History of Present Illness Date Seen by Provider: Feb 11, 2020 Time Seen by Provider: 09:18 Date of Admission Allergies and Home Medications Allergies Coded Allergies: clindamycin (Unverified Allergy, Mild, HIVES, 11/21/09) meperidine (Unverified Allergy, Mild, HAS RECEIVED FENTANYL IN THE PAST, 08/11/09) morphine (Unverified Allergy, Mild, 11/21/09) doxycycline (Verified Allergy, Unknown, 06/14/19) codeine (Verified Adverse Reaction, Unknown, NAUSEA, 11/21/09) Home Medications Acetaminophen 650 Mg Tablet.er, 1,300-1,950 MG PO BID PRN for PAIN-MILD (1-4), (Reported) TAKES 2 TO 3 (650MG) TABS Amlodipine Besylate 5 Mg Tablet, 5 MG PO DAILY, (Reported) Atorvastatin Calcium 10 Mg Tablet, 10 MG PO HS, (Reported) Cetirizine HCl 10 Mg Tablet, 10 MG PO DAILY, (Reported) Cholecalciferol (Vitamin D3) 50 Mcg Capsule, 100 MCG PO DAILY, (Reported) TAKES 2 (50MCG) CAPS DAILY Cyanocobalamin (Vitamin B-12) 500 Mcg Tablet, 1,000 MCG PO DAILY, (Reported) Cyclobenzaprine HCl 10 Mg Tablet, 10 MG PO BID, (Reported) Donepezil HCl 10 Mg Tablet, 10 MG PO HS, (Reported) Folic Acid 1 Mg Tablet, 1 MG PO DAILY, (Reported) Metformin HCl 500 Mg Tablet, 500 MG PO BIDAC, (Reported) Methotrexate Sodium 2.5 Mg Tablet, 7.5 MG PO SUNDAY, (Reported) TAKES 3 (2.5MG) TO EQUAL 7.5MG Metoprolol Succinate 100 Mg Tab.er.24h, 100 MG PO BID, (Reported) Olanzapine 20 Mg Tablet, 20 MG PO HS, (Reported) TAKES 10MG +20MG TO EQUAL 30MG AT BEDTIME Olanzapine 10 Mg Tablet, 10 MG PO HS, (Reported) TAKES 10MG +20MG TO EQUAL 30MG AT BEDTIME Omeprazole 20 Mg Capsule.dr, 20 MG PO SLIDING/SCALE, (Reported) Sucralfate 1 Gm Tablet, 1 GM PO TIDAC, (Reported) LAST FILLED 12-18-2019 #90/30 DAY SUPPLY Past Aehpzth-Htcwzf-Xbkiod Hx Past Med/Social Hx: Reviewed Nursing Past Med/Soc Hx Patient Social History Alcohol Use: Denies Use Recreational Drug Use: No (20 YRS AGO) Type Used: Cigarettes Former Smoker, Quit: Jun 19, 2018 2nd Hand Smoke Exposure: No Recent Foreign Travel: No Contact w/Someone Who Travel: No Recent Infectious Disease Expo: No Recent Hopitalizations: Yes Immunizations Up To Date Tetanus Booster (TDap): Unknown PED Vaccines UTD: No Date of Pneumonia Vaccine: Mar 11, 2011 Date of Influenza Vaccine: Feb 22, 2018 Seasonal Allergies Seasonal Allergies: No Past Medical History Surgeries: Yes (PILONIDAL CYST; SIGMOID COLECTOMY ; COLOSTOMY ) Abdominal, Appendectomy, Bowel Surgery, Breast, Section, Hysterectomy, Oophorectomy, Tracheostomy Respiratory: Yes (O2 AT 4L/NC CONTINUOUSLY;ARDS W/ VENT & TRACH DUE TO POST OP COMPLCATIONS) Chronic Bronchitis, COPD Currently Using CPAP: No Currently Using BIPAP: No Cardiac: Yes (SVT) Chronic Edema/Swelling, Coronary Artery Disease, High Cholesterol, Hypertension Neurological: Yes Dementia, Headaches /Migraines : No Reproductive Disorders: Yes (RIGHT BREAST BENING LUMP-REMOVED) Female Reproductive Disorders: 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 History: Hysterectomy, Menopausal Sexually Transmitted Disease: No HIV/AIDS: No Genitourinary: No Gastrointestinal: Yes Gastroesophageal Reflux, Hiatal Hernia, Ulcer Musculoskeletal: Yes (CHRONIC GENERALIZED PAIN ) Arthritis Endocrine: Yes Hypothyroidsim, Diabetes, Non-Insulin dep, Lupus HEENT: No Loss of Vision: Denies Hearing Impairment: Denies Cancer: No Psychosocial: Yes Anxiety, Bipolar, Personality Disorder, Depression Integumentary: Yes Psoriasis Blood Disorders: Yes (ANEMIA POST OP) Family Medical History Reviewed Nursing Family Hx Arthritis 19 FATHER 19 MOTHER Cardiovascular disease 19 FATHER Cataracts 19 MOTHER Completed stroke 19 MOTHER Dysphasia 19 FATHER FH: cirrhosis 19 MOTHER Glaucoma 19 MOTHER Hypercholesterolemia 19 FATHER Hypertension 19 FATHER 19 MOTHER Myocardial infarction 19 FATHER Osteoporosis 19 MOTHER No Family History of: AIDS Abdominal aortic aneurysm [place]'s disease Alcoholism Alzheimer's disease Aphasia Asthma Cancer of mouth Colon cancer Congenital disease Congenital heart disease Coronary thrombosis Cystic fibrosis Deafness or hearing loss Dementia Diabetes mellitus Drug abuse Fibrocystic disease of breast Gastroenteritis Headache disorder Infertility Kidney disease Neoplasm Not obtainable due to adoption Parkinson's disease Prostate cancer Psychosocial problem Respiratory disorder Seizure disorder Severe allergy Thyroid disease Tuberculosis Visual disorder GI Disease PSH: -SIGMOID AND COLON RESECTION WITH COLOSTOMY FOR 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 1.0oz. 90.693570gz; 39.07 BMI Method:Stated Exam Exam Vital Signs Date Time Temp Pulse Resp B/P (MAP) Pulse Ox O2 Delivery O2 Flow Rate FiO2 02/11/20 08:00 36.0 80 20 169/80 (109) 92 NIV Bilevel 02/11/20 06:44 82 02/11/20 03:57 36.2 60 17 136/73 (94) 97 NIV Bilevel 02/11/20 02:36 70 18 35.00 02/11/20 01:00 72 02/11/20 00:01 35.3 62 16 164/67 (99) 100 NIV Bilevel 02/10/20 22:12 72 18 35.00 02/10/20 20:00 37.2 85 16 169/74 (105) 97 High Flow N/C 3.00 02/10/20 19:35 Nasal Cannula 3.00 02/10/20 19:07 96 Nasal Cannula 3.00 02/10/20 19:00 89 02/10/20 15:30 36.6 82 20 149/72 (97) 97 High Flow N/C 6.00 02/10/20 15:07 94 Nasal Cannula 4.00 02/10/20 13:21 86 02/10/20 12:00 36.6 79 20 134/75 (94) 91 High Flow N/C 2.00 02/10/20 10:55 89 Nasal Cannula 2.00 I & O 02/11/20 07:00 Intake Total 3120 ml Output Total 225 ml Balance 2895 ml Height & Weight Height: 5'7.50" Weight: 200lbs. 1.0oz. 90.147304ua; 39.07 BMI Method:Stated General Appearance: No Apparent Distress, Anxious, Obese HEENT: PERRL/EOMI, Pharynx Normal Neck: Normal Inspection, Supple Respiratory: No Respiratory Distress, Decreased Breath Sounds Cardiovascular: Regular Rate, Rhythm, No Edema, No Murmur Capillary Refill: Less Than 3 Seconds Extremity: Normal Inspection, Non Tender, No Pedal Edema Neurologic/Psychiatric: Alert, No Motor/Sensory Deficits; No Disoriented Skin: Warm/Dry, Pallor Results Lab Laboratory Tests 02/10/20 05:36 02/11/20 05:19 Assessment/Plan Assessment/Plan Acute on chronic respiratory failure -noninvasive ventilation -Check BNP OHS -Pt will benefit from home vent to mask Pc02 89 on admission COPDAE -SVNs, advairj -Prednisone -Oxygen MERCEDES GARZA DO Feb 11, 2020 09:22
[2020-02-11] MEDS: RT-BUDESONIDE NEBS 0.5 MG/2ML (PULMICORT) AMP INH SCH (09:56)
--- NOTE | 2020-02-11 10:17 | NUR ---
CM/SS visited with the patient for discharge planning. The patient reports that she is feeling well today. Respiratory Therapist was present in the room setting up for a breathing treatment. Home: The patient lives at home alone. She states that she is independent with the use of a front wheeled walker. She does have a daughter that lives in [place], [place] and will assist with any needs. DME: Patient's DME is [facility] [place]. She receives oxygen for her home use. The patient also has a front wheeled walker. Meals: Patient utilizes Meals on Wheels. Home Health/Caregivers: Patient has used [facility] in the past. No private caregivers. She does have a dope house operator helper three times a week. SNF/IRF: Patient has been to [facility] and [facility]. She states she is not willing to be admitted for skilled therapies at this time. The patient has been to Inpatient Rehab and would be willing to transfer to their services if she meets criteria. SONY/NAYLA contacted September to discuss. She states she will look over PT and OT notes from today and review. CM/NAYLA will continue to follow.
--- NOTE | 2020-02-11 11:06 | Physical Therapy Daily Note ---
PT Daily Note-Current Subjective Pt presents sitting up in chair upon arrival to room, agreeable to therapy treatment at this time. Appearance Following treatment, pt up in chair with call light and tray within reach, all needs met at this time. Mental Status Patient Orientation: Person, Place, Time Attachments: Oxygen (5L NC ) Transfers SCALE: Activities may be completed with or without assistive devices. 2-Tsjcnwneac-vtshvuq completes the activity by him/herself with no assistance from a helper. 5-Set-up or Clean-up Assistance-helper sets up or cleans up; patient completes activity. [place] assists only prior to or following the activity. 4-Supervision or Touching Assistance-helper provides verbal cues and/or touching/steadying and/or contact guard assistance as patient completes activity. Assistance may be provided throughout the activity or intermittently. 3-Partial/Moderate Assistance-helper does LESS THAN HALF the effort. Acton lifts, holds or supports trunk or limbs, but provides less than half the effort. 2-Substantial/Maximal Assistance-helper does MORE THAN HALF the effort. Acton lifts or holds trunk or limbs and provides more than half the effort. 0-Uepkgqzhk-yosoac does ALL the effort. Patient does none of the effort to complete the activity. Or, the assistance of 2 or more helpers is required for the patient to complete the activity. If activity was not attempted, code reason: 7-Patient Refused. 9-Not Applicable-not attempted and the patient did not perform the activity before the current illness, exacerbation or injury. 10-Not Attempted due to Environmental Limitations-(lack of equipment, weather restraints, etc.). 88-Not Attempted due to Medical Conditions or Safety Concerns. Sit to Stand (QC): 5 Gait Training Distance: 2x50'' Walk 50 ft with 2 Turns(QC): 5 Gait Assistive Device: FWW Pt ambulates within room, upon request, able to ambulate with SBA, only assist for management of O2 lines. No gross LOB noted. Pt ambulates 50 ft x 2 with seated rest break between Assessment Current Status: Good Progress Pt with improved effort this visit, able to complete 100' total of ambulation with SBA for oxygen line management. Will continue to progress activity tolerance as able. PT [facility] Goals Plant Facilities Technician Goals PT [facility] Goals Time Frame: Feb 13, 2020 Roll Left & Right (QC): 6 Sit to Lying (QC): 6 Lying-Sitting on Side/Bed(QC): 6 Sit to Stand (QC): 3 Chair/Zlz-mf-Cjnij Xfer(QC): 3 Toilet Transfer (QC): 3 PT Plan Problem List Problem List: Activity Tolerance, Functional Strength, Safety, Balance, Gait, Transfer, Bed Mobility, ROM Treatment/Plan Treatment Plan: Continue Plan of Care Treatment Plan: Bed Mobility, Education, Functional Activity Fede, Functional Strength, Gait, Safety, Therapeutic Exercise, Transfers Treatment Duration: Feb 13, 2020 Frequency: 6 times per week Estimated Hrs Per Day: .25 hour per day Patient and/or Family Agrees t: Yes Time/GCodes Time In: 1035 Time Out: 1050 Total Billed Treatment Time: 15 Total Billed Treatment 1 visit GT (15') CHIVO CALI PT Feb 11, 2020 11:06
[2020-02-11 11:12] LABS: ABG BASE EXCESS 7.8 MMOL/L (-2.5-2.5); ABG OXYGEN SATURATION 99 % (94-100); ABG PCO2 53 MMHG (35-45); ABG PO2 149 MMHG (79-93); ABG TCO2 34.6 MMOL/L (21.0-31.0); ALLENS TEST YES-POS; INSPIRED O2 3; VENTILATOR NO
[2020-02-11 11:59] VITALS: BP 182/91
[2020-02-11] MEDS ORDERED: FLUT12AE4 IH (12:01)
[2020-02-11] MEDS ORDERED: CEFD300C3 PO (12:01)
[2020-02-11] MEDS ORDERED: RT-ALBUINH IH (12:01)
[2020-02-11] MEDS ORDERED: PRED10TA22 PO (12:01)
--- NOTE | 2020-02-11 12:13 | Discharge Summary ---
Discharge Summary Reconcile Patient Problems Problems Reviewed?: Yes Instructions for Patient Via Erika LVL6, Assessment/Instructions take medications as prescribed. Wear BiPAP at night. Complete your steroid taper. Follow-up with Dr. Ward. Follow up with Dr. Berman. Return with worsening shortness of breath. Physician to follow Patient: Sylvia Discharge Diet for Home: No Restrictions Hospital Course Date of Admission: Feb 06, 2020 at 10:36 Admission Diagnosis : acute on chronic respiratory failure with hypoxemia and hypercapnia Family Physician/Provider: Garrett Ward DO Date of Discharge: 02/11/20 Discharge Diagnosis: acute on chronic respiratory failure with hypoxia and hypercapnia, obesity hypoventilation syndrome, acute COPD exacerbation Hospital Course: Cary Bautista is a 60-year-old female who presented with shortness of breath and was admitted with acute on chronic respiratory failure with hypoxia and hypercapnia. There was concern for a pneumonia and she was treated with a 5 day course of cefepime although her procalcitonin remained normal. She was started on BiPAP for her acute hypercapnic respiratory failure. She was set up with a home vent to mask. She was treated with a course of oral prednisone and given a taper on discharge. She'll follow-up with Dr. Ward in about a week. She should follow up with Dr. Berman in about 6 weeks. She was set up with home health care on discharge. Labs and Pending Lab Test: Laboratory Tests 02/10/20 13:35: Lactic Acid Level 1.65, Procalcitonin 0.06 02/11/20 05:19: White Blood Count 15.4H, Red Blood Count 3.58L, Hemoglobin 8.4L, Hematocrit 30L, Mean Corpuscular Volume 84, Mean Corpuscular Hemoglobin 23L, Mean Corpuscular Hemoglobin Concent 28L, Red Cell Distribution Width 17.6H, Platelet Count 350, Mean Platelet Volume 10.1, Neutrophils (%) (Auto) 61, Lymphocytes (%) (Auto) 29, Monocytes (%) (Auto) 7, Eosinophils (%) (Auto) 3, Basophils (%) (Auto) 0, Neutrophils # (Auto) 9.3H, Lymphocytes # (Auto) 4.5H, Monocytes # (Auto) 1.1H, Eosinophils # (Auto) 0.4H, Basophils # (Auto) 0.0, Sodium Level 141, Potassium Level 3.8, Chloride Level 101, Carbon Dioxide Level 29, Anion Gap 11, Blood Urea Nitrogen 31H, Creatinine 0.84, Estimat Glomerular Filtration Rate > 60, BUN/Creatinine Ratio 37, Glucose Level 97, Calcium Level 8.4L, Corrected Calcium 8.9, Total Bilirubin 0.4, Aspartate Amino Transf (AST/SGOT) 16, Alanine Aminotransferase (ALT/SGPT) 12, Alkaline Phosphatase 82, B-Type Natriuretic P eptide < 10.0, Total Protein 5.8L, Albumin 3.4 02/11/20 10:09: Blood Gas Puncture Site L RADIAL, Blood Gas Patient Temperature 36.0, Arterial Blood pH 7.40, Arterial Blood Partial Pressure CO2 53H, Arterial Blood Partial Pressure O2 149H, Arterial Blood HCO3 33H, Arterial Blood Total CO2 34.6H, Arterial Blood Oxygen Saturation 99, Arterial Blood Base Excess 7.8H, Merlin Test YES-POS, Blood Gas Ventilator Setting NO, Blood Gas Inspired Oxygen 3 Microbiology 02/06/20 Blood Culture - Preliminary, Resulted No growth Home Meds Active Advair Hfa 115-21 Mcg Inhaler (Fluticasone/Salmeterol) 12 Gm Hfa.aer.ad 2 Puff IH BID 60 Days Proair Hfa (Albuterol Sulfate) 1 Puff Puff 2 Puff IH Q4H 30 Days 1 PUFF = 90 MCG Prednisone 10 Mg Tab.ds.pk 10 Mg PO DAILY Take 6 tabs(60mg)daily,decrease by 1 tab(10MG)daily. Reported Olanzapine 10 Mg Tablet 10 Mg PO HS TAKES 10MG +20MG TO EQUAL 30MG AT BEDTIME Metoprolol Succinate 100 Mg Tab.er.24h 100 Mg PO BID Omeprazole 20 Mg Capsule.dr 20 Mg PO SLIDING/SCALE Amlodipine Besylate 5 Mg Tablet 5 Mg PO DAILY Folic Acid 1 Mg Tablet 1 Mg PO DAILY Methotrexate (Methotrexate Sodium) 2.5 Mg Tablet 7.5 Mg PO SUNDAY TAKES 3 (2.5MG) TO EQUAL 7.5MG Tylenol Arthritis (Acetaminophen) 650 Mg Tablet.er 1,300-1,950 Mg PO BID PRN TAKES 2 TO 3 (650MG) TABS Vitamin D3 (Cholecalciferol (Vitamin D3)) 50 Mcg Capsule 100 Mcg PO DAILY TAKES 2 (50MCG) CAPS DAILY Metformin HCl 500 Mg Tablet 500 Mg PO BIDAC Olanzapine 20 Mg Tablet 20 Mg PO HS TAKES 10MG +20MG TO EQUAL 30MG AT BEDTIME B-12 (Cyanocobalamin (Vitamin B-12)) 500 Mcg Tablet 1,000 Mcg PO DAILY Cetirizine HCl 10 Mg Tablet 10 Mg PO DAILY Atorvastatin Calcium 10 Mg Tablet 10 Mg PO HS Cyclobenzaprine HCl 10 Mg Tablet 10 Mg PO BID Sucralfate 1 Gm Tablet 1 Gm PO TIDAC LAST FILLED 12-18-2019 #90/30 DAY SUPPLY Donepezil HCl 10 Mg Tablet 10 Mg PO HS Consulations pulmonology Patient Allergies: Coded Allergies: clindamycin (Unverified Allergy, Mild, HIVES, 11/21/09) meperidine (Unverified Allergy, Mild, HAS RECEIVED FENTANYL IN THE PAST, 08/11/09) morphine (Unverified Allergy, Mild, 11/21/09) doxycycline (Verified Allergy, Unknown, 06/14/19) codeine (Verified Adverse Reaction, Unknown, NAUSEA, 11/21/09) Height (Feet): 5 Height (Inches): 7.50 Weight (Pounds): 200 Weight (Ounces): 1.0 Home Health Need/Face to Face Date of Face to Face: Feb 11, 2020 Clinical Findings: Instability, Unsteady gait I have seen Pt ywyv-yr-tcws: Yes Discharged To: Home Diagnosis/Conditions: acute on chronic respiratory failure with hypoxia and hypercapnia Debility Problems/Diagnosis/Condition: (1) Debility (2) Acute on chronic respiratory failure with hypoxia and hypercapnia (3) Obesity hypoventilation syndrome Patient is Homebound due to: Leydi fall risk due to instabilty, Muscle weakness Homebound Status Due to the above stated illness, injury or surgical procedure (medical condition or diagnosis) and associated clinical findings, the patient is homebound because of his/her inability to leave home except with aid of a supportive device and/or person AND leaving the home requires a considerable and taxing effort or is medically contraindicated. Pt req the following assistanc: Aid of another person, Walker Home Health Nursing Orders Home Health Services Order: Nursing Services, Lan Engineer-Evaluate & Treat, Physical Therapy-Evaluate & Treat Home Health Infusion Therapy Line Start Date: Feb 06, 2020 Therapy Orders Therapy Orders: OT (must have SN or PT order), Physical Therapy Therapy Specific Orders: Eval assistive deivces, Teach enviro modifications/safety, Gait training, Increase strength/endurance Certify Stmt I certify that this patient is under my care and that I, a nurse practitioner or a physician; a activities assistant working with me, had a face to face encounter that - meets the physician face to face encounter requirements with this patient as dated. Discharge Physical Exam General: Alert, Oriented X3, Cooperative, No Acute Distress, Other (obese) HEENT: Atraumatic, PERRLA, EOMI, Mucous Memb Moist/[place] Lungs: Clear to Auscultation, Normal Air Movement Heart: Regular Rate, Normal S1, Normal S2, No Murmurs Abdomen: Normal Bowel Sounds, Soft, No Tenderness Extremities: No Tenderness/Swelling, Other (trace edema) Skin: No Rashes, No Significant Lesion Neuro: Normal Speech, Other (motor weakness) Psych/Mental Status: Mental Status NL, Mood NL JAYCOB DOWNEY MD Feb 11, 2020 12:13
--- NOTE | 2020-02-11 12:46 | Occupational Ther Daily Note ---
OT Current Status-Daily Note Subjective Pt seated in recliner, agreeable to OT Tx. Pt did not report any pain. Mental Status/Objective Patient Orientation: Person Attachments: Oxygen ADL-Treatment Therapy Code Descriptions/Definitions Functional [place] Measure: 0=Not Assessed/NA 4=Minimal Assistance 1=Total Assistance 5=Supervision or Setup 2=Maximal Assistance 6=Modified [place] 3=Moderate Assistance 7=Complete IndependenceSCALE: Activities may be completed with or without assistive devices. 7-Lezhouepro-reakvzw completes the activity by him/herself with no assistance from a helper. 5-Set-up or Clean-up Assistance-helper sets up or cleans up; patient completes activity. [place] assists only prior to or following the activity. 4-Supervision or Touching Assistance-helper provides verbal cues and/or touching/steadying and/or contact guard assistance as patient completes activity. Assistance may be provided throughout the activity or intermittently. 3-Partial/Moderate Assistance-helper does LESS THAN HALF the effort. [place] lifts, holds or supports trunk or limbs, but provides less than half the effort. 2-Substantial/Maximal Assistance-helper does MORE THAN HALF the effort. [place] lifts or holds trunk or limbs and provides more than half the effort. 0-Uwiwyvjfd-uvnbmy does ALL the effort. Patient does none of the effort to complete the activity. Or, the assistance of 2 or more helpers is required for the patient to complete the activity. If activity was not attempted, code reason: 7-Patient Refused. 9-Not Applicable-not attempted and the patient did not perform the activity before the current illness, exacerbation or injury. 10-Not Attempted due to Environmental Limitations-(lack of equipment, weather restraints, etc.). 88-Not Attempted due to Medical Conditions or Safety Concerns. Oral Hygiene (QC): 5 (set up at recliner) Other Treatment Pt seated in recliner, agreeable to OT tx with focus on ADLS. Pt had completed shower prior to OT tx, stating she needed some assistance with it but unable to recall how much assistance she required. Pt agreeable to brushing her teeth but refused to go to the restroom to stand at the sink for task. Pt reports she sits in a chair at the sink when home to complete oral care. Pt declined sitting in seat in restroom for task, preferring to complete task at recliner. OT set up tray table to oral hygiene, pt able to complete oral care with set up and min encouragement for task. Post OT Tx, pt seated in recliner, call light in reach and all needs met. Education OT Patient Education: Correct positioning, Modified ADL techniques, Progress toward Goal/Update tx plan, Purpose of tx/functional activities Teaching Recipient: Patient Teaching Methods: Discussion Response to Teaching: Verbalize Understanding OT Senior Care Goals Qa Tester Goals Time Frame: Feb 13, 2020 Eating (QC): 6 Oral Hygiene (QC): 6 Toileting Hygiene (QC): 6 Shower/Bathe Self (QC): 6 Upper Body Dressing (QC): 6 Lower Body Dressing (QC): 6 On/Off Footwear (QC): 6 1=Demonstrate adherence to instructed precautions during ADL tasks. 2=Patient will verbalize/demonstrate understanding of assistive phu sumanth/modifications for ADL. 3=Patient will improve strength/tolerance for activity to enable patient to perform ADL's. OT Education/Plan Problem List/Assessment Assessment: Decreased Activ Tolerance, Decreased UE Strength, Impaired Funct Balance, Impaired I ADL's, Impaired Self-Care Skills Discharge Recommendations Plan/Recommendations: Continue POC Treatment Plan/Plan of Care Patient would benefit from OT for education, treatment and training to promote independence in ADL's, mobility, safety and/or upper extremity function for ADL' s. Plan of Care: ADL Retraining, Functional Mobility, UE Funct Exercise/Act Treatment Duration: Feb 13, 2020 Frequency: 5 times per week Estimated Hrs Per Day: .25 hour per day Agreement: Yes Rehab Potential: Fair Time/GCodes Start Time: 11:05 Stop Time: 11:13 Total Time Billed (hr/min): 8 Billed Treatment Time 1, ADL GAMA DIEGO OT Feb 11, 2020 12:46
[2020-02-11] MEDS: ENOXAPARIN 40 MG/0.4 ML (LOVENOX) SYR SC SCH (15:03)
--- NOTE | 2020-02-11 15:09 | NUR ---
CM/SS finalized discharge. Plan: The patient is being discharged to home with home health. Home Health: CM/SS contacted Jackie at [facility] to make referral. They verbalized they will start care tomorrow or Sunday. The patient's physician spoke with patient to discuss shelter placement due to not doing well with OT. Patient refused shelter placement. CM/SS spoke with patient to discuss getting on the Medicaid wavier to receive caregiving services. Patient refused for this sw to contact [facility] to check about caregivers at this time. Medicaid: patient does have Medicaid. She is a member of [employer] [facility]. The patient is not on a waiver. Her Medicaid number [id number]. No further needs at this time.
[2020-02-11 15:30] VITALS: BP 157/72
--- NOTE | 2020-02-11 16:04 | NUR ---
Anointed by Fr. Munoz.
[2020-02-11 18:45] VITALS: BP 157/72
== END 2020-02-11 18:45 | disposition home health service (06) | DRG 189 ==
LOC: EDUNIT# 08:16 → ER 08:18 → 4TH 10:36
PROVIDERS: ADMIT Family Medicine; ATTEND Internal Medicine
DX: J96.22 Acute and chronic respiratory failure with hypercapnia (principal); J18.9 Pneumonia, unspecified organism; J44.0 Chronic obstructive pulmonary disease with (acute) lower respiratory infection; J44.1 Chronic obstructive pulmonary disease with (acute) exacerbation; G25.9 Extrapyramidal and movement disorder, unspecified; E66.2 Morbid (severe) obesity with alveolar hypoventilation; J96.21 Acute and chronic respiratory failure with hypoxia; J96.01 Acute respiratory failure with hypoxia; I25.10 Atherosclerotic heart disease of native coronary artery without angina pectoris; I10 Essential (primary) hypertension; E78.00 Pure hypercholesterolemia, unspecified; E03.9 Hypothyroidism, unspecified; K21.9 Gastro-esophageal reflux disease without esophagitis; K44.9 Diaphragmatic hernia without obstruction or gangrene; G89.29 Other chronic pain; M19.91 Primary osteoarthritis, unspecified site; F03.90 Unspecified dementia, unspecified severity, without behavioral disturbance, psychotic disturbance, mood disturbance, and anxiety; G43.909 Migraine, unspecified, not intractable, without status migrainosus; F41.9 Anxiety disorder, unspecified; F31.9 Bipolar disorder, unspecified; F60.9 Personality disorder, unspecified; R53.1 Weakness; R60.9 Edema, unspecified; E78.5 Hyperlipidemia, unspecified; E11.9 Type 2 diabetes mellitus without complications; M32.9 Systemic lupus erythematosus, unspecified; F31.70 Bipolar disorder, currently in remission, most recent episode unspecified; L40.9 Psoriasis, unspecified; Z68.30 Body mass index [BMI] 30.0-30.9, adult; Z99.81 Dependence on supplemental oxygen; Z87.891 Personal history of nicotine dependence; Z79.84 Long term (current) use of oral hypoglycemic drugs; Z87.11 Personal history of peptic ulcer disease; Z90.81 Acquired absence of spleen; Z90.710 Acquired absence of both cervix and uterus; Z90.721 Acquired absence of ovaries, unilateral; Z90.49 Acquired absence of other specified parts of digestive tract
CPT/HCPCS: 36415; 36600; 51701; 51702; 71045; 80053; 81000; 82805; 83605; 83735; 83880; 84145; 84484; 85007; 85025; 85027; 86141; 87040; 93005; 93041; 94640; 94660; 94664; 94760; 99291

== ENCOUNTER 2020-03-08 13:28 | Inpatient (IN) | payer MEDICARE ==
[~2020-03-08] VITALS: Ht 165 cm; Wt 111.1 kg
[~2020-03-08 13:28] MED LIST changes: +FOLI1TAB24 PO; +OLAN10TA19 PO; +OMEP20CA18 PO; -PANT40TA3 PO; +PANT40TA52 PO; +PRED10TA22 PO
--- NOTE | 2020-03-08 13:57 | NUR ---
CALEB ANDERSEN admitted to room 229-1, with an admitting diagnosis of FALLS, on 03/08/20, DIRECT ADMIT FROM THE EMERGENCY DEPARTMENT, accompanied by STAFF. CALEB ANDERSEN introduced to surroundings, call light, bed controls, phone, TV, temperature control, lights, meal times, smoking policy, visitor policy, side rail policy, bathrooms and showers. Patient Rights given to patient in the handbook. CALEB ANDERSEN verbalizes understanding that [facility] is not responsible for the loss or damage to any personal effects or valuables that are kept in the patient's possession during their hospitalization. The following Patient Care Plans were discussed with the PATIENT: Discharge Planning, IMPAIRED MOBILITY, HIGH RISK: IMPAIRED SKIN INTEGRITY, HIGH RISK: INJURY, POTENTIAL FOR FALL, HIGH RISK: ACTIVITY INTOLERANCE, AND KNOWLEDGE DEFICIT. CALEB ANDERSEN verbalizes understanding of Interdisciplinary Patient Education. Patient received Patient Rights Booklet, which includes Privacy Act Statement and Data Collection Information Summary.
[2020-03-08] MEDS ORDERED: MELATONIN 3 MG TABLET PO PRN (14:00)
[2020-03-08] MEDS ORDERED: diphenhydrAMINE 25 MG TAB (BENADRYL) PO PRN (14:00)
[2020-03-08] MEDS ORDERED: ONDANSETRON 4 MG (ZOFRAN) ORAL DISSOLVE TAB PO PRN (14:00)
[2020-03-08] MEDS ORDERED: HYDROcodone/APAP 5 MG/325 MG (LORTAB) TAB PO PRN (14:00)
[2020-03-08] MEDS ORDERED: LACTULOSE SYRUP 10GM/15ML (ENULOSE) 30ML UDC PO PRN (14:00)
[2020-03-08] MEDS ORDERED: ACETAMINOPHEN 500 MG TAB (TYLENOL) PO PRN (14:00)
[2020-03-08] MEDS ORDERED: FLEET ENEMA ADULT 1 EA BTL PR PRN (14:00)
[2020-03-08] MEDS ORDERED: ENOXAPARIN 40 MG/0.4 ML (LOVENOX) SYR SC SCH (14:00)
[2020-03-08] MEDS ORDERED: DOCUSATE SODIUM 100 MG (COLACE) CAP PO PRN (14:00)
[2020-03-08] MEDS ORDERED: ALPRAZolam 0.25 MG (XANAX) TAB PO PRN (14:00)
[2020-03-08] MEDS ORDERED: CALCIUM CARBONATE 500 MG (TUMS) TAB.CHEW PO PRN (14:00)
[2020-03-08] MEDS ORDERED: ACETAMINOPHEN 325 MG TABLET PO PRN ×2 (14:00→16:15)
[2020-03-08] MEDS ORDERED: LOPERAMIDE 2 MG (IMODIUM) TABLET PO PRN (14:00)
[2020-03-08] MEDS ORDERED: guaiFENesin/CODEINE (ROBITUSSIN AC) 10ML UDC PO PRN (14:00)
[2020-03-08] MEDS ORDERED: BISACODYL 10 MG SUPP (DULCOLAX) PR PRN (14:00)
[2020-03-08 14:28] VITALS: BP 155/72
[2020-03-08 14:36] VITALS: BP 155/72
--- NOTE | 2020-03-08 14:36 | NUR ---
Patient attempting to ambulate with therapy, got short of breath and began coughing. After resting for a few minutes, while patient is on 3L O2, patients Oxygen Saturations ate at 86%. Patient reports being on 3 to 4 L of O2 at home. O2 bumped up to 4L at this time. Patient came up to 93% on 4L within 2 minutes. Will continue to Monitor.
--- NOTE | 2020-03-08 14:52 | NUR ---
DR. GARZA NOTIFIED OF CONSULT. RT NOTIFIED OF NEED FOR ABG.
--- NOTE | 2020-03-08 15:23 | Physical Therapy Evaluation ---
PT Evaluation-General Medical Diagnosis Admission Date Mar 08, 2020 at 13:28 Medical Diagnosis: debility Onset Date: Mar 08, 2020 Therapy Diagnosis Therapy Diagnosis: weakness; abn gait Height/Weight Height (Feet): 5 Height (Inches): 7.50 Weight (Pounds): 200 Weight (Ounces): 1.0 Precautions Precautions/Isolations: Fall Prevention, Standard Precautions Referral Physician: Yary Reason for Referral: Evaluation/Treatment Medical History Pertinent Medical History: CAD, COPD, Dementia, GERD, HTN, Hypothroidism, OA, Smoking Additional Medical History psoriasis, acute on chronic resp failure; O2 dependent; lupus, obesity Current History Pt presented to ED this date secondary to fall at home. Admitted to ARU due to frequent falls at home and debility. Reviewed History: Yes Social History Home: Single Level (senior housing) Current Living Status: Alone Entry Into Home: Level Entry Prior Prior Level of Function SCALE: Activities may be completed with or without assistive devices. 7-Kruprajrpn-ufwaxvn completes the activity by him/herself with no assistance from a helper. 5-Set-up or Clean-up Assistance-helper sets up or cleans up; patient completes activity. Center assists only prior to or following the activity. 4-Supervision or Touching Assistance-helper provides verbal cues and/or touching/steadying and/or contact guard assistance as patient completes activity. Assistance may be provided throughout the activity or intermittently. 3-Partial/Moderate Assistance-helper does LESS THAN HALF the effort. Center lifts, holds or supports trunk or limbs, but provides less than half the effort. 2-Substantial/Maximal Assistance-helper does MORE THAN HALF the effort. Center lifts or holds trunk or limbs and provides more than half the effort. 8-Sebtlcwop-uiqpez does ALL the effort. Patient does none of the effort to complete the activity. Or, the assistance of 2 or more helpers is required for the patient to complete the activity. If activity was not attempted, code reason: 7-Patient Refused. 9-Not Applicable-not attempted and the patient did not perform the activity before the current illness, exacerbation or injury. 10-Not Attempted due to Environmental Limitations-(lack of equipment, weather restraints, etc.). 88-Not Attempted due to Medical Conditions or Safety Concerns. Bed Mobility: 6 Transfers (B,C,W/C): 6 Gait: 6 (short distances in her home. ) Stairs: 9 Indoor Mobility (Ambulation): Independent Stairs: Not Applicalbe Prior Devices Use: Manual wheelchair, Walker Pt received meals on wheels; she reports she was receiving [facility] therapy and nursing. PT Evaluation-Current Subjective Pt reports feeling very tired and SOA this date. Reports she is weak and has been falling at home. Agrees to PT as she can tolerate. Pain Numeric Pain Scale: 5-Moderate Pain Location: Right Location Body Site: Knee (and wrist) Pain Description: Ache Comment: Post fall this date with resultant right knee/wrist pain Pt/Family Goals Her goal is to return to her apartment in [place] but acknowledges she does not know if she will be able to manage as before. Objective Patient Orientation: Person, Place, Time, Situation Attachments: Oxygen (3 l/min during and post treatment.) ROM/Strength ROM Lower Extremities WFL Strength Lower Extremities B LE strength is grossly 3/5 throughout with decreased activity tolerance. Integumentary/Posture Integumentary Psoriasis with multiple areas on legs and buttocks; refer to nursing for full assessment. Bowel Incontinence: Yes Bladder Incontinence: Yes Posture Rounded shoulders and forward head. Neuromuscular (Tone, Coordination, Reflexes) Intact and functional Sensory Vision: Functional Hearing: Functional Hand Dominance: Right Sensation Right Lower Extremit: Intact Sensation Left Lower Extremity: Intact Transfers Roll Left to Right (QC): 4 Sit to Lying (QC): 3 (assist to lift her trunk) Lying to Sitting/Side of Bed(Q: 3 Sit to Stand (QC): 3 (Min assist to initiate stand.) Chair/Spi-xd-Higjs Xfer(QC): 3 (cGA for safety) Toilet Transfer (QC): 3 Car Transfer (QC): 88 (unable to tolerate this this date. ) Gait Does the Patient Walk?: Yes Mode of Locomotion: Both Anticipated Mode of Locomotion: Both Walk 10 feet (QC): 3 Walk 50 ft with 2 Turns(QC): 88 (unable to walk further than 25 ft before needing to sit and rest. ) Walk 150 ft (QC): 88 Walking 10ft/uneven surface-QC: 88 Distance: 25 ft x 3 reps Gait Assistive Device: FWW Comments/Gait Description slow gait with decreased step length and clearance; head down and rounded shoulders; slow gait . Requires frequent rest breaks. Wheelchair Training Does the Pt Use a Wheelchair?: Yes Distance: 50 ft Wheel 50 ft with 2 turns (QC): 4 Wheel 150 ft (QC): 7 Type of Wheelchair: Manual Stairs 1 Step (curb) (QC): 7 4 Steps (QC): 9 12 Steps (QC): 9 pt does not perform steps at home; deferred curb step this date due to fatigue and fearful of falling. Balance Sitting Static: Fair Sitting Dynamic: Fair Standing Static: Fair Standing Dynamic: Fair Picking up an Object (QC): 88 Treatment Co Treat with OT this date due to the need for skill of 2 clinicians to safely complete tasks that included functional bed mobiltiy, transfers, self care tasks. Multiple Sit to stand transfers for clothing managament, toilet transfer, wheelchair mobility. PT addressed gross motor movement with use of legs and hand placement for transitional tasks as well as functional balance in standing at a dynamic and static level; OT addressed UE use for ADL completion. Pt requires heavy cues from each discipline for sequencing and task completion. O2 sats this date with activity and oxygen in situ at 3 l/min dropped to 86%; pt allowed to rest/recover approx 2 minutes and, per nursing, oxygen increased to 4 l/min. Her sats then returned to above 90% post rest and increase in oxygen. Nursing aware of oxygen levels. Oxygen in place post treatment at 4 l/min. Assessment/Needs Pt presents with functional strength, balance and activity tolerance deficits that render her unable to safely reside in her home at this time. Her oxygen saturations dropped this date with activity, despite being on oxygen throughout the treatment. She is very limited in functional gait and wc distance and requires assist with transfers and bed mobility. ; She will benefit from skilled PT services to address these deficits to allow her to return home as she was before. Rehab Potential: Guarded PT Short Term Goals Short Term Goals Time Frame: Mar 22, 2020 Lying to sitting on side of be: 4 Sit to stand: 4 Walk 50 feet with two turns: 4 Wheel 150 feet: 5 PT Land Surveying Party Chief Goals Jail Goals PT Land Surveying Party Chief Goals Time Frame: Apr 05, 2020 Roll Left & Right (QC): 6 Sit to Lying (QC): 6 Lying-Sitting on Side/Bed(QC): 6 Sit to Stand (QC): 6 Chair/Wbn-pr-Rkdkd Xfer(QC): 6 Toilet Transfer (QC): 6 Car Transfer (QC): 5 Does the Patient Walk: Yes Walk 10 feet (QC): 6 Walk 50ft with 2 Turns (QC): 6 Walk 150 ft (QC): 5 Walking 10ft on Uneven Surface: 5 1 Step (curb) (QC): 4 4 Steps (QC): 9 12 Steps (QC): 9 Picking up an Object (QC): 6 (with a chief console operator) Does the Pt use WC or Scooter?: Yes Wheel 50 feet with 2 turns (QC: 6 Type: Manual Wheel 150 feet: 6 Type: Manual PT Plan Problem List Problem List: Activity Tolerance, Functional Strength, Safety, Balance, Gait, Transfer, Bed Mobility Treatment/Plan Treatment Plan: Continue Plan of Care Treatment Plan: Bed Mobility, Education, Functional Activity Fede, Functional Strength, Group Therapy, Gait, Safety, Therapeutic Exercise, Transfers Treatment Duration: Apr 05, 2020 Frequency: At least 5 of 7 days/Wk (IRF) Estimated Hrs Per Day: Other (pt will achieve 15hrs over 7 days) Patient and/or Family Agrees t: Yes Safety Risks/Education Patient Education: Transfer Techniques, Safety Issues Teaching Recipient: Patient Teaching Methods: Discussion Response to Teaching: Reinforcement Needed Discharge Recommendations Therapy Discharge Recommendati: Post Acute PT Time/GCodes Time In: 1350 Time Out: 1505 (OT eval [id number]) Total Billed Treatment Time: 55 Total Billed Treatment visit EVM 10 FA 55 (co treat with OT) PILLO DAWSON PT Mar 08, 2020 15:23
--- NOTE | 2020-03-08 15:24 | Occupational Therapy Eval ---
OT Evaluation-General/PLF Medical Diagnosis Admission Date Mar 08, 2020 at 13:28 Medical Diagnosis: debility Onset Date: Mar 05, 2020 Therapy Diagnosis Therapy Diagnosis: decreased ADL status/impaired functional mobility Height/Weight Height (Feet): 5 Height (Inches): 7.50 Weight (Pounds): 200 Weight (Ounces): 1.0 Precautions Precautions/Isolations: Fall Prevention, Standard Precautions Referral Physician: Yary Referral Reason: Evaluation/Treatment Medical History Pertinent Medical History: CAD, COPD, Dementia, GERD, HTN, Hypothroidism, OA, S moking Current History Pt reports increased falls at home this weekend, and progressive weakness over the last few months. Pt reports her last fall was last night, this morning she was able to crawl to the phone and call for help. Pt to ED from home via EMS. Pt admitted to ARU 03/08/2020 due to falls and debility Social History Home: Single Level Current Living Status: Alone Entry Into Home: Level Entry ADL-Prior Level of Function SCALE: Activities may be completed with or without assistive devices. 1-Lxaopdgrks-yeqnqru completes the activity by him/herself with no assistance from a helper. 5-Set-up or Clean-up Assistance-helper sets up or cleans up; patient completes activity. [place] assists only prior to or following the activity. 4-Supervision or Touching Assistance-helper provides verbal cues and/or touching/steadying and/or contact guard assistance as patient completes activity. Assistance may be provided throughout the activity or intermittently. 3-Partial/Moderate Assistance-helper does LESS THAN HALF the effort. [place] lifts, holds or supports trunk or limbs, but provides less than half the effort. 2-Substantial/Maximal Assistance-helper does MORE THAN HALF the effort. [place] lifts or holds trunk or limbs and provides more than half the effort. 2-Gcvxwttbj-yvpwtm does ALL the effort. Patient does none of the effort to complete the activity. Or, the assistance of 2 or more helpers is required for the patient to complete the activity. If activity was not attempted, code reason: 7-Patient Refused. 9-Not Applicable-not attempted and the patient did not perform the activity before the current illness, exacerbation or injury. 10-Not Attempted due to Environmental Limitations-(lack of equipment, weather restraints, etc.). 88-Not Attempted due to Medical Conditions or Safety Concerns. ADL PLOF Comments Pt reports being able to complete bathing and dressing independently at OF, although she has had more difficulty with tasks lately. She primarily uses a w/c for functional mobility. She has a prospecting observer 3 days/week, and 1 meal a day via meals on wheels. Pt indicates she typically has take out for other meals or makes simple meals at home. Pt has nursing/OT/PT home health services. Pt places grocery order online and has groceries delivered. She has a walkin shower with a shower chair. She has oxygen at home, 3-4L. Self Care: Needed Some Help Functional Cognition: Independent DME/Equipment: Bath Chair, Shower DME/Equipment Comments w/c OT Current Status Subjective Pt agreeable to OT evaluation, reports pain in R knee and R hand but does not rate. Mental Status/Objective Patient Orientation: Person, Place, Situation Attachments: Oxygen (4L) Current Glasses/Contacts: Yes Hearing Aids: No Dentures/Partials: No Hand Dominance: Right Upper Extremity ROM AROM approx 80 degrees shoulder flexion BUEs, WFL at wrist/elbows/fingers PROM to approx 90 degrees shoulder flexion BUEs, pt reports increased pain. Upper Extremity Coordination WFL Upper Extremity Sensation pt denies tingling/numbness BUEs Upper Extremity Strength grossly 2+/5 MMT ADL-Treatment Eating (QC): 6 (Pt reports no difficulties eating lunch. She states she is able to open containers and bring food to mouth, pt also able to bring cup to mouth and take drink.) Oral Hygiene (QC): 4 (Pt able to brush teeth at sink, w/c level. Pt reqired cue to find cup on counter to rinse mouth) Shower/Bathe Self (QC): 7 Upper Body Dressing (QC): 7 Lower Body Dressing (QC): 3 (Assist doffing tab style brief. Pt able to don pull on brief, CGA in stand at [facility] durni pant hike.) On/Off Footwear (QC): 7 Toileting Hygiene (QC): 4 (CGA, pt able to manage clothing and perform hygiene.) Pt required increased time with all tasks due to SOB with activity, and cues for sequencing and task completion Other Treatments [id number] OT evaluation: OT educated pt on purpose and benefits of OT, pt verb alized understanding. Pt provided information about PLOF/home set up and participated in UE screen. [id number] OT/PT cotreat: OT/PT cotreat due to skill of 2 clinicians required to coordinate UE/LEs, and to safely complete tasks including bed mobility ,tra nsfers, and ADLs. OT focused on UE placement, ADLs, and cues for sequencing and safety, while PT focused on gross movements, LE placement, and functional balance. Pt seated in w/c, transferred from w/c to EOB and EOB to supine. Pt then sat EOB to doff tab style brief and don pull on brief. Pt stood at FWW,and performed functional mobility at FWW, with w/c follow from bed to just past door to room, pt became SOB requesting to sit. Pt sat down, oxygen set at 3L and O2 sat dropped to 86%, nurse present, O2 increased to 4L and pt's sat increased to 90%'s within a couple minutes. Pt then taken to bathroom sink at w/. Pt able to complete oral care, face washing and hair brushing, with min cues to find cup to rinse mouth, and min cues for sequencing of tasks. Pt required min A with hair brushing due to decreased UE ROM, pt unable to reach back of head with brush. Pt then requests to complete toileting, transferring from w/c to toilet using GBs, SPT. Pt stood from w/ without w/c brakes set, requiring cues from therapists for safety. Pt completed toileting, then transferred back to w/c. Pt taken out of restroom, used FWW to transfer from w/c to bed, then EOB to supine SBA. Post OT/PT cotreat, pt laying in bed, call light in reach, all needs met, O2 @ 4L NC. Education OT Patient Education: Correct positioning, Energy conservation, Modified ADL techniques, Progress toward Goal/Update tx plan, Purpose of tx/functional activities, Rehab process, Safety issues, Transfer techniques, W/C management Teaching Recipient: Patient Teaching Methods: Discussion Response to Teaching: Verbalize Understanding OT Short Term Goals Short Term Goals Time Frame: Mar 19, 2020 Shower/bathe self: 4 Lower body dressin Putting on/taking off footwear: 4 OT Group Home Goals Group Home Goals Time Frame: Apr 02, 2020 Eating (QC): 6 Oral Hygiene (QC): 6 Toileting Hygiene (QC): 6 Shower/Bathe Self (QC): 6 Upper Body Dressing (QC): 6 Lower Body Dressing (QC): 6 On/Off Footwear (QC): 6 Additional Goals: 1-Demonstrate ADL Tasks, 2-Verbalize Understanding, 3- ImproveStrength/Fede 1=Demonstrate adherence to instructed precautions during ADL tasks. 2=Patient will verbalize/demonstrate understanding of assistive devices/modifications for ADL. 3=Patient will improve strength/tolerance for activity to enable patient to perform ADL's. OT Education/Plan Problem List/Assessment Assessment: Decreased Activ Tolerance, Decreased UE Strength, Impaired Funct Balance, Impaired I ADL's, Impaired Self-Care Skills, Restricted Funct UE ROM Discharge Recommendations Plan/Recommendations: Continue POC Treatment Plan/Plan of Care Patient would benefit from OT for education, treatment and training to promote independence in ADL's, mobility, safety and/or upper extremity function for ADL's. Plan of Care: ADL Retraining, Functional Mobility, Group Exercise/Act as Ind, UE Funct Exercise/Act, W/C Management Training Treatment Duration: Apr 02, 2020 Frequency: Modified Program (IRF) (23/12) Agreement: Yes Rehab Potential: Fair Time/GCodes Start Time: 14:00 Stop Time: 15:05 Total Time Billed (hr/min): 65 Billed Treatment Time [id number] OT evaluation (10') [id number] OT/PT cotreat (55') 1, EVM (10'), ADL 2 (35'), FA (20') GAMA DIEGO OT Mar 08, 2020 15:24
--- NOTE | 2020-03-08 15:28 | NUR ---
PATIENT STATES THAT MEDICATIONS HAVE NOT CHANGED SINCE SHE WAS LAST HERE... EXCEPT NO LONGER TAKING PREDNISONE.
[2020-03-08] MEDS ORDERED: FLU QUADRIvalent (3YOA+) 60 mcg/0.5 ml 2020-21 (AFLURIA) IM ONE (15:30)
[2020-03-08 15:33] LABS: ABG OXYGEN SATURATION 98 % (94-100); ABG PH 7.35 (7.37-7.43); ABG PO2 107 MMHG (79-93); ABG TCO2 42.5 MMOL/L (21.0-31.0)
[2020-03-08 15:38] LABS: ALLENS TEST YES-POS; INSPIRED O2 2L; VENTILATOR NO
[2020-03-08 15:39] LABS: ABG PCO2 74 MMHG (35-45); PATIENT TEMP 36.6
[2020-03-08] MEDS ORDERED: ACETAMINOPHEN PO PRN (15:45)
[2020-03-08 15:57] VITALS: BP 145/67
[2020-03-08] MEDS ORDERED: CATHETER FLUSH 10 ML SYR IV PRN (16:00)
[2020-03-08] MEDS ORDERED: OMEPRAZOLE 20 MG (PriLOSEC) CAP NON-FORMULARY PO SCH (16:00)
[2020-03-08] MEDS ORDERED: metFORMIN 500 MG (GLUCOPHAGE) TAB PO SCH (16:00)
[2020-03-08] MEDS ORDERED: SUCRALFATE 1 GM (CARAFATE) TAB PO SCH (17:00)
--- NOTE | 2020-03-08 17:35 | NUR ---
At approximately 1500, patient was working with therapy, on 2L O2 via nasal cannula. Patient became very short of air, flushed, and was unable to speak clearly due to SOA. Patient was sitting in wheelchair in the tripod position. O2 Sats at 83%. Patient expressed that she is normally on 3 to 4L at home. O2 increased to 3, then 4L. O2 saturations came up to 93% after around [address] Pringle notified, orders received to draw ABGs and consult Dr. Berman. Critical results received from Lab. Dr. Berman notified. Orders received to place patient on BIPAP and redraw ABG [address] Pringle updated on results and new orders. Respiratory Therapy set up BIPAP with instructions to keep patient on BIPAP with only breaks for small sips of water with pills and not to be off for meals until morning.
[2020-03-08] MEDS ORDERED: RT-ALBUTEROL SULF 2.5 MG/3 ML PRE-MIX VIAL IH SCH (18:00)
[2020-03-08] MEDS ORDERED: RT-ALBUTEROL/IPRATROPIUM 3 ML (DUONEB) VIAL ONE (18:23)
[2020-03-08 18:24] LABS: ABG BASE EXCESS 14.8 MMOL/L (-2.5-2.5); ABG OXYGEN SATURATION 99 % (94-100); ABG PCO2 68 MMHG (35-45); ABG PH 7.39 (7.37-7.43); ABG PO2 133 MMHG (79-93); ABG TCO2 42.7 MMOL/L (21.0-31.0)
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
--- NOTE | 2020-03-08 18:40 | NUR ---
Dr. Pringle here to see patient. Orders to move patient to ICU bed 10.
[2020-03-08 18:41] LABS: ALLENS TEST YES-POS; INSPIRED O2 40%; PATIENT TEMP 36.5; VENTILATOR NO
--- NOTE | 2020-03-08 18:42 | Diagnostic Imaging Report ---
INDICATION: Shortness of breath Portable chest 6:29 PM Heart size and pulmonary vascularity are normal. Lungs are clear. There are no effusions or pneumothoraces. IMPRESSION: No acute abnormalities in the chest Dictated by: Dictated on workstation # [id number]
[2020-03-08 18:52] LABS: BASOPHILS % (AUTO) 0 % (0-10); EOSINOPHILS # (AUTO) 0.4 10^3/uL (0.0-0.3); EOSINOPHILS % (AUTO) 2 % (0-10); HEMATOCRIT 28 % (35-52); HEMOGLOBIN 7.6 G/DL (11.5-16.0); LYMPHOCYTES # (AUTO) 4.1 X 10^3 (1.0-4.0); LYMPHOCYTES % (AUTO) 25 % (12-44); MEAN CORPUSCULAR HEMOGLOBIN 23 PG (25-34); MEAN CORPUSCULAR HGB CONC 27 G/DL (32-36); MEAN CORPUSCULAR VOLUME 85 FL (80-99); MEAN PLATELET VOLUME 9.8 FL (7.4-10.4); MONOCYTES # (AUTO) 1.3 X 10^3 (0.0-1.0); MONOCYTES % (AUTO) 8 % (0-12); NEUTROPHILS # (AUTO) 10.4 X 10^3 (1.8-7.8); NEUTROPHILS % (AUTO) 64 % (42-75); PLATELET COUNT 519 10^3/uL (130-400); WHITE BLOOD COUNT 16.2 10^3/uL (4.3-11.0)
[2020-03-08 19:09] LABS: BUN/CREATININE RATIO 21; CALCIUM 8.6 MG/DL (8.5-10.1); CARBON DIOXIDE 39 MMOL/L (21-32); CHLORIDE 97 MMOL/L (98-107); CREATININE SERUM 0.87 MG/DL (0.60-1.30); GFR ESTIMATED > 60; GLUCOSE 96 MG/DL (70-105); MAGNESIUM 1.8 MG/DL (1.6-2.4); PHOSPHORUS 2.7 MG/DL (2.3-4.7); POTASSIUM 4.5 MMOL/L (3.6-5.0); SODIUM 141 MMOL/L (135-145)
[2020-03-08 19:14] LABS: LYMPHOCYTES % (MANUAL) 21 %; MONOCYTES % (MANUAL) 6 %; NEUTROPHILS % (MANUAL) 72 %
[2020-03-08 19:15] LABS: ANISOCYTOSIS MODERATE; EOSINOPHILS % (MANUAL) 1 %; HYPOCHROMASIA MODERATE; STOMATOCYTES MODERATE
[2020-03-08] MEDS ORDERED: DOCUSATE SODIUM 100 MG (COLACE) CAP PO SCH (21:00)
[2020-03-08] MEDS ORDERED: meTOprolol SUCCINATE 100 MG (TOPROL XL) TAB PO SCH (21:00)
[2020-03-08] MEDS ORDERED: NON-FORMULARY MEDICATION 1 EA EA (Olanzapine 10 MG) PO SCH (21:00)
[2020-03-08] MEDS ORDERED: OLANZapine 5 MG (ZyPREXA) TAB PO SCH (21:00)
[2020-03-08] MEDS ORDERED: ADVAIR HFA 115/21 MCG INHALER 8 GM IH SCH (21:00)
[2020-03-08] MEDS ORDERED: PANTOPRAZOLE 20 MG TABLET (PROTONIX) PO SCH (21:00)
[2020-03-08] MEDS ORDERED: DONEPEZIL 10 MG (ARICEPT) TAB PO SCH (21:00)
[2020-03-08] MEDS ORDERED: SENNA W/DOCUSATE (SENOKOT S) TABLET PO SCH (21:00)
[2020-03-08] MEDS ORDERED: NON-FORMULARY MEDICATION 1 EA EA (Olanzapine 20 MG) PO SCH (21:00)
[2020-03-08] MEDS ORDERED: polyethylene glycoL POWDER 17 GM (MIRALAX) PACK PO SCH (21:00)
[2020-03-08] MEDS ORDERED: RT-ALBUTEROL/IPRATROPIUM 3 ML (DUONEB) VIAL INH SCH (22:00)
[2020-03-09 03:43] LABS: BASOPHILS # (AUTO) 0.1 10^3/uL (0.0-0.1); BASOPHILS % (AUTO) 1 % (0-10); EOSINOPHILS # (AUTO) 0.5 10^3/uL (0.0-0.3); EOSINOPHILS % (AUTO) 4 % (0-10); HEMATOCRIT 28 % (35-52); HEMOGLOBIN 7.8 g/dL (11.5-16.0); LYMPHOCYTES # (AUTO) 4.6 10^3/uL (1.0-4.0); LYMPHOCYTES % (AUTO) 39 % (12-44); MEAN CORPUSCULAR HEMOGLOBIN 23 pg (25-34); MEAN CORPUSCULAR HGB CONC 28 g/dL (32-36); MEAN CORPUSCULAR VOLUME 83 fL (80-99); MEAN PLATELET VOLUME 9.8 fL (9.0-12.2); MONOCYTES # (AUTO) 0.9 10^3/uL (0.0-1.0); MONOCYTES % (AUTO) 8 % (0-12); NEUTROPHILS # (AUTO) 5.8 10^3/uL (1.8-7.8); NEUTROPHILS % (AUTO) 48 % (42-75); PLATELET COUNT 440 10^3/uL (130-400)
[2020-03-09 03:52] LABS: ALBUMIN 3.4 GM/DL (3.2-4.5)
[2020-03-09 03:53] LABS: CHLORIDE 98 MMOL/L (98-107); POTASSIUM 3.9 MMOL/L (3.6-5.0); SODIUM 141 MMOL/L (135-145)
[2020-03-09 03:54] LABS: CALCIUM 8.4 MG/DL (8.5-10.1)
[2020-03-09 03:55] LABS: GLUCOSE 87 MG/DL (70-105); TOTAL PROTEIN 5.7 GM/DL (6.4-8.2)
[2020-03-09 03:56] LABS: CARBON DIOXIDE 34 MMOL/L (21-32)
[2020-03-09 03:57] LABS: BILIRUBIN,TOTAL 0.2 MG/DL (0.1-1.0)
[2020-03-09 03:58] LABS: ALKALINE PHOSPHATASE 76 U/L (40-136)
[2020-03-09 03:59] LABS: CREATININE SERUM 0.78 MG/DL (0.60-1.30); GFR ESTIMATED > 60
[2020-03-09 04:00] LABS: BUN/CREATININE RATIO 22
[2020-03-09 04:01] LABS: ALANINE AMINOTRANSFERASE 10 U/L (0-55)
[2020-03-09] MEDS ORDERED: CYANOCOBALAMIN 1,000 MCG (VITAMIN B-12) TABLET PO SCH (07:00)
[2020-03-09] MEDS ORDERED: NON-FORMULARY MEDICATION 1 EA EA (Cetirizine HCl 10 MG) PO SCH (09:00)
[2020-03-09] MEDS ORDERED: VITAMIN D3 25 MCG (1,000 UNITS) TABLET PO SCH (09:00)
[2020-03-09] MEDS ORDERED: FOLIC ACID 1 MG TAB PO SCH (09:00)
[2020-03-09] MEDS ORDERED: NON-FORMULARY MEDICATION 1 EA EA (Cholecalciferol (Vitamin D3) (Vitamin D3) 100 MCG) PO SCH (09:00)
[2020-03-09] MEDS ORDERED: CYANOCOBALAMIN 1000 MCG PO SCH (09:00)
[2020-03-09] MEDS ORDERED: amLODIPine 5 MG (NORVASC) TAB PO SCH (09:00)
[2020-03-09] MEDS ORDERED: LORATADINE (CLARITIN) 10 MG TAB PO SCH (09:00)
--- NOTE | 2020-03-10 09:28 | PM&R Progress Note ---
Subjective HPI/CC On Admission Date Seen by Provider: Mar 10, 2020 Time Seen by Provider: 09:30 Subjective/Events-last exam Pt is less SOB today after a two days course in ICU maintained on BiPAP and Vapotherm and now nasal cannula Heart rate 120s, I did consult Dr. Fuentes, gave her a dose of 50mg Metoprolol Maintain on 3 liters of oxygen now Will DC catheter Home meds will be restarted today Overall much improved Will change to a regular diet Bowels not moving but she hasnt eaten much Review of Systems General: Fatigue, Malaise Pulmonary: Dyspnea Objective Exam Vital Signs Vital Signs Date Time Temp Pulse Resp B/P (MAP) Pulse Ox O2 Delivery O2 Flow Rate FiO2 03/11/20 05:01 36.0 88 20 156/71 (99) 96 Nasal Cannula 4.00 Capillary Refill : General Appearance: No Apparent Distress, WD/WN, Chronically ill HEENT: PERRL/EOMI, Normal ENT Inspection, Pharynx Normal Neck: Full Range of Motion, Normal Inspection, Non Tender, Supple, Carotid Bruit Respiratory: Chest Non Tender, Lungs Clear, Normal Breath Sounds, No Accessory Muscle Use, No Respiratory Distress, Decreased Breath Sounds Cardiovascular: Regular Rate, Rhythm, No Edema, No Gallop, No JVD, No Murmur, Normal Peripheral Pulses Gastrointestinal: Normal Bowel Sounds, No Organomegaly, No Pulsatile Mass, Non Tender, Soft Back: Normal Inspection, No CVA Tenderness, No Vertebral Tenderness Extremity: Normal Capillary Refill, Normal Inspection, Normal Range of Motion, Non Tender, No Calf Tenderness, No Pedal Edema Neurologic/Psychiatric: Alert, Oriented x3, No Motor/Sensory Deficits, Normal Mood/Affect Skin: Normal Color, Warm/Dry Lymphatic: No Adenopathy Results/Procedures Lab Patient resulted labs reviewed. FIM Transfers Therapy Code Descriptions/Definitions Functional [place] Measure: 0=Not Assessed/NA 4=Minimal Assistance 1=Total Assistance 5=Supervision or Setup 2=Maximal Assistance 6=Modified [place] 3=Moderate Assistance 7=Complete IndependenceSCALE: Activities may be completed with or without assistive devices. 9-Ogtvhvyyol-hxjokem completes the activity by him/herself with no assistance from a helper. 5-Set-up or Clean-up Assistance-helper sets up or cleans up; patient completes activity. [place] assists only prior to or following the activity. 4-Supervision or Touching Assistance-helper provides verbal cues and/or touchi ng/steadying and/or contact guard assistance as patient completes activity. Assistance may be provided throughout the activity or intermittently. 3-Partial/Moderate Assistance-helper does LESS THAN HALF the effort. [place] lifts, holds or supports trunk or limbs, but provides less than half the effort. 2-Substantial/Maximal Assistance-helper does MORE THAN HALF the effort. [place] lifts or holds trunk or limbs and provides more than half the effort. 2-Zwclwfetx-nxwlxu does ALL the effort. Patient does none of the effort to complete the activity. Or, the assistance of 2 or more helpers is required for the patient to complete the activity. If activity was not attempted, code reason: 7-Patient Refused. 9-Not Applicable-not attempted and the patient did not perform the activity before the current illness, exacerbation or injury. 10-Not Attempted due to Environmental Limitations-(lack of equipment, weather restraints, etc.). 88-Not Attempted due to Medical Conditions or Safety Concerns. Roll Left to Right (QC): 4 Sit to Lying (QC): 3 (assist to lift her trunk) Sit to Stand (QC): 3 (Min assist to initiate stand.) Chair/Mze-kd-Estrt Xfer(QC): 3 (cGA for safety) Car Transfer (QC): 88 (unable to tolerate this this date. ) Gait Training Walk 10 feet (QC): 3 Walk 50 ft with 2 Turns(QC): 88 (unable to walk further than 25 ft before needing to sit and rest. ) Walk 150 ft (QC): 88 Walking 10ft/uneven surface-QC: 88 Gait Assistive Device: FWW Wheelchair Training Distance: 50 ft Wheel 50 ft with 2 turns (QC): 4 Wheel 150 ft (QC): 7 Stair Training 1 Step (curb) (QC): 7 4 Steps (QC): 9 12 Steps (QC): 9 Balance Picking up an Object (QC): 88 ADL-Treatment Eating (QC): 6 (Pt reports no difficulties eating lunch. She states she is able to open containers and bring food to mouth, pt also able to bring cup to mouth and take drink.) Oral Hygiene (QC): 4 (Pt able to brush teeth at sink, w/c level. Pt reqired cue to find cup on counter to rinse mouth) Shower/Bathe Self (QC): 7 Upper Body Dressing (QC): 7 Lower Body Dressing (QC): 3 (Assist doffing tab style brief. Pt able to don pull on brief, CGA in stand at [facility] durnig pant hike.) On/Off Footwear (QC): 7 Toileting Hygiene (QC): 4 (CGA, pt able to manage clothing and perform hygiene.) Assessment/Plan Assessment and Plan Assess & Plan/Chief Complaint Assessment: Severe debility due to acute on chronic respiratory failure h/o trach 05/29 h/o PEG tube 05/29 Mental illness precluding fast recovery Former smoker COPD OHS Dementia Plan: Monitor closely Inpatient rehabilitation protocol with therapies Dr Berman consultation appreciated 03/10/20: Restart IRF protocol Transfuse 1 unit of blood Consult Dr Evans may need scope, maintain PPI in meantime Appreciate Dr Fuentes and Dr Berman (1) Debility (2) Acute on chronic respiratory failure Status: Chronic (3) Morbid obesity Status: Acute (4) Generalized weakness Status: Acute (5) Bipolar disorder Status: Chronic (6) Dementia Status: Acute (7) Psoriasis Status: Chronic (8) Hypertension Status: Chronic (9) Lupus Status: Chronic (10) Oxygen dependent Status: Chronic (11) Obesity hypoventilation syndrome (12) Chronic mental illness Status: Chronic (13) Acute on chronic respiratory failure with hypoxia and hypercapnia Status: Acute SAMANTHA COLLIER DO Mar 10, 2020 09:28
[2020-03-10 11:00] VITALS: BP 154/87
--- NOTE | 2020-03-10 11:00 | NUR ---
Patient transferred from ICU back to ARU. Orders received from FELICITY Corbett. Patient has no complaints at this time and is able to start therapy.
[2020-03-10] MEDS ORDERED: NS IV 500 ML 500 ML IV SCH ×2 (11:29→11:30)
[2020-03-10] MEDS ORDERED: FUROSEMIDE 40 MG/4 ML INJ (LASIX) IVP NR ×2 (11:30→12:15)
[2020-03-10] MEDS ORDERED: MELATONIN 3 MG TABLET PO PRN (11:30)
[2020-03-10] MEDS ORDERED: RT-ALBUTEROL INHALER HFA (VENTOLIN HFA) 18 GM IH PRN (11:30)
[2020-03-10] MEDS ORDERED: CALCIUM CARBONATE 500 MG (TUMS) TAB.CHEW PO PRN (11:30)
[2020-03-10] MEDS ORDERED: DOCUSATE SODIUM 100 MG (COLACE) CAP PO PRN (11:30)
[2020-03-10] MEDS ORDERED: diphenhydrAMINE 25 MG TAB (BENADRYL) PO PRN (11:30)
--- NOTE | 2020-03-10 12:01 | Physical Therapy Daily Note ---
PT Daily Note-Current Subjective Pt presents laying supine in bed in ICU. Pt reports 5/10 pain. Pt agrees to PT. Appearance At conclusion of PT tx patient is assisted to supine bed on ARU floor. Pt has access to tray, call button, and all needs have been met. Staff is present in room to draw blood for labs. Mental Status Patient Orientation: Person, Place, Time, Eyes Open, Situation, M[place] Attachments: Oxygen, IV Transfers SCALE: Activities may be completed with or without assistive devices. 3-Mymrgdhkmt-ktscnpz completes the activity by him/herself with no assistance from a helper. 5-Set-up or Clean-up Assistance-helper sets up or cleans up; patient completes activity. [place] assists only prior to or following the activity. 4-Supervision or Touching Assistance-helper provides verbal cues and/or touching/steadying and/or contact guard assistance as patient completes activity. Assistance may be provided throughout the activity or intermittently. 3-Partial/Moderate Assistance-helper does LESS THAN HALF the effort. [place] lifts, holds or supports trunk or limbs, but provides less than half the effort. 2-Substantial/Maximal Assistance-helper does MORE THAN HALF the effort. [place] lifts or holds trunk or limbs and provides more than half the effort. 9-Wrpwzsciw-gwrytp does ALL the effort. Patient does none of the effort to complete the activity. Or, the assistance of 2 or more helpers is required for the patient to complete the activity. If activity was not attempted, code reason: 7-Patient Refused. 9-Not Applicable-not attempted and the patient did not perform the activity before the current illness, exacerbation or injury. 10-Not Attempted due to Environmental Limitations-(lack of equipment, weather restraints, etc.). 88-Not Attempted due to Medical Conditions or Safety Concerns. Sit to Lying (QC): 4 Lying to Sitting/Side of Bed(Q: 3 Sit to Stand (QC): 3 Chair/Mns-rs-Wlqyc Xfer(QC): 3 Toilet Transfer (QC): 3 Gait Training Does the Patient Walk?: Yes Distance: 15' Walk 10 feet (QC): 4 Gait Assistive Device: FWW Pt able to walk from bed to doorway; pt limited in distance due to fatigue. Took small steady steps while therapist manuevered O2 and IV, and followed with WC; second therapist applied CGA throughout ambulation. Wheelchair Training Does the Pt Use a Wheelchair?: Yes 15'; patient able to propel self slowly with LE but does not use UE to assist. Treatments Focus on transfers Assessment Current Status: Fair Progress Pt demonstrates ability to transfer and ambulate but requires min assist to CGA with most mobility. Co-treated with OT due to patient's limited strength, endurance, mobility, and ability to coordinate UEs and LEs. PT assisted on patient's transfers and gait training and positioning and safety during bathing and dressing. while OT assisted with bathing and dressing. PT Short Term Goals Short Term Goals Time Frame: Mar 22, 2020 Lying to sitting on side of be: 4 Sit to stand: 4 Walk 50 feet with two turns: 4 Wheel 150 feet: 5 PT Jail Goals Assistant Secretary Goals PT Jail Goals Time Frame: Apr 05, 2020 Roll Left & Right (QC): 6 Sit to Lying (QC): 6 Lying-Sitting on Side/Bed(QC): 6 Sit to Stand (QC): 6 Chair/Tqa-sl-Iawwl Xfer(QC): 6 Toilet Transfer (QC): 6 Car Transfer (QC): 5 Does the Patient Walk: Yes Walk 10 feet (QC): 6 Walk 50ft with 2 Turns (QC): 6 Walk 150 ft (QC): 5 Walking 10ft on Uneven Surface: 5 1 Step (curb) (QC): 4 4 Steps (QC): 9 12 Steps (QC): 9 Picking up an Object (QC): 6 (with a packer) Does the Pt use WC or Scooter?: Yes Wheel 50 feet with 2 turns (QC: 6 Type: Manual Wheel 150 feet: 6 Type: Manual PT Plan Problem List Problem List: Activity Tolerance, Functional Strength, Safety, Balance, Gait, Transfer, Bed Mobility, ROM Treatment/Plan Treatment Plan: Continue Plan of Care Treatment Plan: Bed Mobility, Education, Functional Activity Fede, Functional Strength, Group Therapy, Gait, Safety, Therapeutic Exercise, Transfers Treatment Duration: Apr 05, 2020 Frequency: At least 5 of 7 days/Wk (IRF) Estimated Hrs Per Day: Other (pt will achieve 15hrs over 7 days) Patient and/or Family Agrees t: Yes Safety Risks/Education Patient Education: Gait Training, Transfer Techniques, Correct Positioning, W/C Management, Safety Issues Teaching Recipient: Patient Teaching Methods: Demonstration, Discussion Response to Teaching: Reinforcement Needed Time/GCodes Time In: 1100 Time Out: 1200 Total Billed Treatment Time: 60 Total Billed Treatment 1 visit GT 10' FA 50' Patient will proceed with same superintendent container terminal goals on the PT eval previous to going to ICU. CLAU SALAZAR PT Mar 10, 2020 12:01
--- NOTE | 2020-03-10 12:15 | Progress Note ---
ANN DOTY,MED STUDENT 03/10/20 1215: Progress Note HPI: Patient is a 60yo female with a history COPD and OHS/DUDLEY who presented to IRF from ED due to multiple falls at home and worsening disability. Shortly after IRF admission she decompensated rapidly while with therapy. Workup including pulmonology consult revealed hypercapnia with respiratory acidosis. She was placed on biPAP and was transferred to the ICU where she was started on Zosyn. Labs revealed mildy elevated procalcitonin of 0.16, normal lactic acid, and no abnormalities on chest x-ray. MRSA and COVID swabs were negative. She was transitioned to vapotherm which she tolerated well, and her hypercapnia and respiratory acidosis improved. She continued to improve and will transfer back to IRF today. Prior to presentation to ED she lived alone in an apartment in [place]. She was independent and sometimes used a walker. PMH: Respiratory: COPD, Pneumonia, OHS/DUDLEY Currently Using CPAP: Yes Currently Using BIPAP: No Cardiac: Chronic Edema/Swelling, Coronary Artery Disease, High Cholesterol, Hypertension Neurological: Dementia, Headaches /Migraines Reproductive: Yes (RIGHT BREAST BENING LUMP-REMOVED) Sexually Transmitted Disease: No HIV/AIDS: No Female Reproductive Disorders: Denies Hysterectomy, Menopausal Genitourinary: UTI-Chronic Gastrointestinal: Gastroesophageal Reflux, Hiatal Hernia, Ulcer Musculoskeletal: Arthritis Endocrine: Hypothyroidsim, Diabetes, Non-Insulin dep, Lupus Loss of Vision: Denies Hearing Impairment: Denies Psychosocial: Anxiety, Bipolar, Personality Disorder, Depression Skin/Integumentary: Psoriasis PSH: Surgeries: Abdominal, Appendectomy, Bowel Surgery, Breast, Section, Hysterectomy, Oophorectomy, Tracheostomy SH: Single, lives alone Unemployed No alcohol use Former smoker, quit 2019 Former recreational drug use 20 years ago Home Medications: Albuterol Sulfate (Proair Hfa), 2 PUFF IH Q4H Amlodipine Besylate (Amlodipine Besylate), 5 MG PO DAILY, (Reported) Atorvastatin Calcium (Atorvastatin Calcium), 10 MG PO HS, (Reported) Cetirizine HCl (Cetirizine HCl), 10 MG PO DAILY, (Reported) Cholecalciferol (Vitamin D3) (Vitamin D3), 100 MCG PO DAILY, (Reported) Cyanocobalamin (Vitamin B-12) (B-12), 1,000 MCG PO DAILY, (Reported) Donepezil HCl (Donepezil HCl), 10 MG PO HS, (Reported) Fluticasone/Salmeterol (Advair Hfa 115-21 Mcg Inhaler), 2 PUFF IH BID Folic Acid (Folic Acid), 1 MG PO DAILY, (Reported) Metformin HCl (Metformin HCl), 500 MG PO BIDAC, (Reported) Methotrexate Sodium (Methotrexate), 7.5 MG PO SUNDAY, (Reported) Metoprolol Succinate (Metoprolol Succinate), 100 MG PO BID, (Reported) Olanzapine (Olanzapine), 20 MG PO HS, (Reported) Olanzapine (Olanzapine), 10 MG PO HS, (Reported) Omeprazole (Omeprazole), 20 MG PO SLIDING/SCALE, (Reported) Sucralfate (Sucralfate), 1 GM PO TIDAC, (Reported) Allergies: Clindamycin Codeine Doxycycline Meperidine Morphine ROS: General: no fever, no chills, no night sweats HEENT: headache; no hearing changes, no vision changes Cardiovascular: no chest pain, no palpitations, no edema Pulmonary: no SOB, no cough GI: no n/v/d, no abdominal pain Physical Exam: General Appearance: WD/WN, no acute distress Respiratory: CTAB, No Accessory Muscle Use, No Respiratory Distress, Decreased Breath Sounds Cardiovascular: RRR, S1 S2 normal, no murmur Abdomen: soft, nontender, normal bowel sounds Extremity: Non Tender, No Calf Tenderness, No Pedal Edema Neurologic/Psychiatric: alert, oriented Skin: Normal Color, Warm/Dry, Rash (psoriasis on b/l LE) Assessment/Plan: ETIOLOGIC DIAGNOSIS: Debility from acute on chronic respiratory failure The comorbidities that impact the patients function and/or functional outcome by: Severe COPD/OHS, acute on chronic respiratory failure on arrival to IRF requiring transfer to ICU, arthritis REHAB PLAN: Rehab treatment will consist of: PT, OT will focus on regaining strength and ambulatory ability while in IRF in order to return to live independently in her apartment BARRIERS TO DISCHARGE: Severe respiratory disease with mental illness and dementia ESTIMATED LOS: 7 days DISPOSITION: Home PROGNOSIS: Fair REHABILITATION GOALS: 1. PT OT will focus on regaining strength and ambulatory ability while in IRF in order to return to live independently in her apartment ROSALIND COLLIER DO 03/12/20 1635: Supervisory-Addendum Brief Verification & Attestation Participated in pt care: history, MDM, physical Personally performed: exam, history, MDM, supervision of care Care discussed with: Medical Student Procedures: n/a Results interpretation: Verified all documentation Verification and Attestation of Medical Student E/M Service A medical student performed and documented this service in my presence. I reviewed and verified all information documented by the medical student and made modifications to such information, when appropriate. I personally performed the physical exam and medical decision making. Rosalind Collier, Mar 12, 2020,16:35 ANN DOTY,MED STUDENT Mar 10, 2020 12:15 ROSALIND COLLIER DO Mar 12, 2020 16:35
[2020-03-10] MEDS: ENOXAPARIN 40 MG/0.4 ML (LOVENOX) SYR SC SCH ×2 (12:38→23:52)
[2020-03-10] MEDS ORDERED: MAGNESIUM CITRATE 300 ML BTL PO NR (13:00)
--- NOTE | 2020-03-10 13:15 | NUR ---
Upon flushing IV site, patient complains of pain, no blood return and leaking noted. Order for Mid Line received from Dr. Pringle.
--- NOTE | 2020-03-10 13:31 | Progress Note-Pre Operative ---
Pre-Operative Progress Note H&P Reviewed The H&P was reviewed, patient examined and no changes noted. Date Seen by Provider: Mar 10, 2020 Time Seen by Provider: 13:30 Date H&P Reviewed: Mar 10, 2020 Time H&P Reviewed: 13:30 Pre-Operative Diagnosis: anemia with hx GERD SID GROVER MD Mar 10, 2020 13:31
--- NOTE | 2020-03-10 13:31 | Conscious Sedation/ASA ---
Conscious Sedation Pre-Proced Time 13:30 ASA Score 3 For ASA 3 and 4: Consider anesthesia and medical clearance. Also, for patients with a history of failed moderate sedation consider anesthesia. Airway Lungs Heart ASA score ASA 1: a normal healthy patient ASA 2: a patient with a mild systemic disease (mid diabetes, controlled hypertension, obesity ASA 3: a patient with a severe systemic disease that limits activity (angina, COPD, prior Myocardial infarction) ASA 4: a patient with an incapacitating disease that is a constant threat to life (CHF, renal failure) ASA 5: a moribund patient not expected to survive 24 hrs. (ruptured aneurysm) ASA 6: a declared brain- patient whose organs are being harvested. For emergent operations, add the letter E after the classification Mallampati Classification Grade 2 Sedation Plan Analgesia, Amnesia, Plan communicated to team members, Discussed options with patient/fam, Discussed risks with patient/fam The patient is an appropriate candidate to undergo the planned procedure, sedation, and anesthesia. The patient immediately re-assessed prior to indication. SID GROVER MD Mar 10, 2020 13:31
--- NOTE | 2020-03-10 13:54 | Physical Therapy Daily Note ---
PT Daily Note-Current Subjective Pt presents supine in bed. Pt agrees to PT. Patient voices no complaints of pain. Appearance At conclusion of PT tx patient returns to bed; she is left sitting on the edge of bed with access to tray, call button, and all needs have been met. Mental Status Patient Orientation: Person, Place, Time, Eyes Open, Situation Attachments: Oxygen Transfers SCALE: Activities may be completed with or without assistive devices. 2-Vdmxovmywm-lgxmxfh completes the activity by him/herself with no assistance from a helper. 5-Set-up or Clean-up Assistance-helper sets up or cleans up; patient completes activity. [place] assists only prior to or following the activity. 4-Supervision or Touching Assistance-helper provides verbal cues and/or touching/steadying and/or contact guard assistance as patient completes activity. Assistance may be provided throughout the activity or intermittently. 3-Partial/Moderate Assistance-helper does LESS THAN HALF the effort. [place] lift s, holds or supports trunk or limbs, but provides less than half the effort. 2-Substantial/Maximal Assistance-helper does MORE THAN HALF the effort. [place] lifts or holds trunk or limbs and provides more than half the effort. 5-Yhybqkulc-tkjgni does ALL the effort. Patient does none of the effort to complete the activity. Or, the assistance of 2 or more helpers is required for the patient to complete the activity. If activity was not attempted, code reason: 7-Patient Refused. 9-Not Applicable-not attempted and the patient did not perform the activity before the current illness, exacerbation or injury. 10-Not Attempted due to Environmental Limitations-(lack of equipment, weather restraints, etc.). 88-Not Attempted due to Medical Conditions or Safety Concerns. Roll Left & Right (QC): 6 Lying to Sitting/Side of Bed(Q: 6 Sit to Stand (QC): 4 Chair/Brh-tw-Ezggo Xfer(QC): 4 Toilet Transfer (QC): 4 Gait Training Does the Patient Walk?: Yes Distance: 15' x2, 30' Walk 10 feet (QC): 4 Gait Assistive Device: FWW CGA and wheelchair followed behind. Pt slowly and with shortened stride length. Treatments Gait Training Assessment Current Status: Good Progress Pt ambulated to the restroom, was able to clean herself without assist. Pt demonstrated 30' of ambulation before requiring a break. PT Short Term Goals Short Term Goals Time Frame: Mar 22, 2020 Lying to sitting on side of be: 4 Sit to stand: 4 Walk 50 feet with two turns: 4 Wheel 150 feet: 5 PT Fermentation Operator Goals [facility] Goals PT [facility] Goals Time Frame: Apr 05, 2020 Roll Left & Right (QC): 6 Sit to Lying (QC): 6 Lying-Sitting on Side/Bed(QC): 6 Sit to Stand (QC): 6 Chair/Xps-am-Mddgm Xfer(QC): 6 Toilet Transfer (QC): 6 Car Transfer (QC): 5 Does the Patient Walk: Yes Walk 10 feet (QC): 6 Walk 50ft with 2 Turns (QC): 6 Walk 150 ft (QC): 5 Walking 10ft on Uneven Surface: 5 1 Step (curb) (QC): 4 4 Steps (QC): 9 12 Steps (QC): 9 Picking up an Object (QC): 6 (with a water quality specialist) Does the Pt use WC or Scooter?: Yes Wheel 50 feet with 2 turns (QC: 6 Type: Manual Wheel 150 feet: 6 Type: Manual PT Plan Problem List Problem List: Activity Tolerance, Functional Strength, Safety, Balance, Gait, Transfer, Bed Mobility, ROM Treatment/Plan Treatment Plan: Continue Plan of Care Treatment Plan: Bed Mobility, Education, Functional Activity Fede, Functional Strength, Group Therapy, Gait, Safety, Therapeutic Exercise, Transfers Treatment Duration: Apr 05, 2020 Frequency: At least 5 of 7 days/Wk (IRF) Estimated Hrs Per Day: Other (pt will achieve 15hrs over 7 days) Patient and/or Family Agrees t: Yes Safety Risks/Education Patient Education: Gait Training, Transfer Techniques, Correct Positioning, Safety Issues Teaching Recipient: Patient Teaching Methods: Demonstration, Discussion Response to Teaching: Reinforcement Needed Time/GCodes Time In: 1315 Time Out: 1345 Total Billed Treatment Time: 30 Total Billed Treatment 1 visit GT 20' FA 10' CLAU SALAZAR PT Mar 10, 2020 13:54
[2020-03-10] MEDS ORDERED: MAGNESIUM CITRATE 300 ML BTL PO ONE (14:00)
--- NOTE | 2020-03-10 14:10 | CONSULTATION REPORT ---
DATE OF SERVICE: ADMITTING PHYSICIAN: Dr. Pringle. PRIMARY CARE PHYSICIAN: Dr. Garrett Ward. HISTORY OF PRESENT ILLNESS: The patient is a 60-year-old female with multiple medical comorbidities. She presented to the Emergency Department due to recurrent falls at home as well as increased disability. She was in inpatient rehabilitation 05/2018 after a long course at [facility] including a tracheostomy and percutaneous gastrostomy tube for severe acute on chronic respiratory failure from COPD as well as sleep apnea. The patient was admitted and she did have significant hypercapnia and respiratory acidosis and was placed on BiPAP since then she has slowly improved. The patient also does have a history of dementia. Upon this admission, she was found to be significantly anemic. She does have a history of gastroesophageal reflux disease as well as status post hiatal hernia repair. It is unsure when her last colonoscopy was or if she has had one in the past. PAST MEDICAL HISTORY: Dementia, hypertension, hypercholesterolemia, coronary artery disease, bilateral lower extremity edema, dementia, migraine headaches, gastroesophageal reflux disease, peptic ulcer disease, non-insulin dependent diabetes, lupus, bipolar disorder, psoriasis. PAST SURGICAL HISTORY: Sigmoid colon resection, appendectomy, breast biopsy, section, total hysterectomy, tracheostomy and gastrostomy tube placement. ALLERGIES: CLINDAMYCIN, MEPERIDINE, MORPHINE, DOXYCYCLINE, CODEINE. MEDICATIONS: 1. Albuterol MDI 2 puffs q.4 hours. 2. Amlodipine 5 mg daily. 3. Atorvastatin 10 mg daily. 4. Cetirizine 10 mg daily. 5. Vitamin B12 daily. 6. Donepezil 10 mg daily. 7. Fluticasone/salmeterol 2 puffs b.i.d. 8. Folic acid 1 mg daily. 9. Metformin 500 mg t.i.d. 10. Methotrexate 7.5 mg weekly. 11. Metoprolol 100 mg b.i.d. 12. Olanzapine daily. 13. Omeprazole 20 mg daily. 14. Carafate 1 g t.i.d. SOCIAL HISTORY: Previous smoker, quit in 06/2018. Previous history of drug use. Negative alcohol. FAMILY HISTORY: Father, myocardial infarction. Mother, stroke. VITAL SIGNS: Temperature 36.9, blood pressure 154/87, pulse 83, respirations 16, pulse ox 97% on 4 liters nasal cannula. REVIEW OF SYSTEMS: This is a well-nourished female currently in no acute distress. She does verbalize; however, does appear somewhat confused. She does not report any shortness of breath or difficulty breathing. She does have a chronic cough, no new sputum production. History of gastroesophageal reflux disease as well as peptic ulcer disease with mild intermittent episodes of epigastric discomfort. No history of constipation, no red blood per rectum, no dark tarry stools. No fever, chills, no recent inadvertent weight loss. All other review of systems negative. PHYSICAL EXAMINATION: CHEST: Distant breath sounds and scattered wheezes bilaterally. HEART: Regular, no murmurs. EXTREMITIES: +1/3 bilateral lower extremity edema, negative Homans sign. HEENT: No scleral icterus. NECK: No cervical lymphadenopathy. ABDOMEN: Soft, nontender, nondistended. SKIN: Warm, dry. LABORATORY DATA: WBC 12.0, hemoglobin 7.8, hematocrit 28, platelets 440, BUN 17, creatinine 0.78. ASSESSMENT AND PLAN: A 60-year-old female with multiple medical problems with a recent fall, weakness and exacerbation of COPD with respiratory failure. She does have a number of medical comorbidities and also does have a history of gastroesophageal reflux disease as well as peptic ulcer disease and is unsure if she has had a colonoscopy in the past. Due to her symptomatic anemia, we will proceed with an EGD and colonoscopy on this admission. Job ID: [id number] DocumentID: [id number] Dictated Date: 03/10/2020 13:43:17 Sludge Mill Operator Date: 03/10/2020 14:09:39 Dictated By: SID GROVER MD [facility]
[2020-03-10] MEDS: HYDROcodone/APAP 5 MG/325 MG (LORTAB) TAB PO PRN ×2 (14:30→22:05)
--- NOTE | 2020-03-10 14:30 | Occupational Ther Daily Note ---
OT Current Status-Daily Note Subjective Pt returned from ICU on this date, all goals and POC to remain the same. Pt agreeable to OT Tx, she denies pain. Pt reports fatigue, per nurse report pt is to get blood transfusion on this date. Mental Status/Objective Attachments: IV, Oxygen ADL-Treatment Therapy Code Descriptions/Definitions Functional [place] Measure: 0=Not Assessed/NA 4=Minimal Assistance 1=Total Assistance 5=Supervision or Setup 2=Maximal Assistance 6=Modified [place] 3=Moderate Assistance 7=Complete IndependenceSCALE: Activities may be completed with or without assistive devices. 2-Yhukzijnss-rtjxwch completes the activity by him/herself with no assistance from a helper. 5-Set-up or Clean-up Assistance-helper sets up or cleans up; patient completes activity. [place] assists only prior to or following the activity. 4-Supervision or Touching Assistance-helper provides verbal cues and/or touching/steadying and/or contact guard assistance as patient completes activity. Assistance may be provided throughout the activity or intermittently. 3-Partial/Moderate Assistance-helper does LESS THAN HALF the effort. [place] lifts, holds or supports trunk or limbs, but provides less than half the effort. 2-Substantial/Maximal Assistance-helper does MORE THAN HALF the effort. [place] lifts or holds trunk or limbs and provides more than half the effort. 5-Jezlrhyan-rrfigu does ALL the effort. Patient does none of the effort to complete the activity. Or, the assistance of 2 or more helpers is required for the patient to complete the activity. If activity was not attempted, code reason: 7-Patient Refused. 9-Not Applicable-not attempted and the patient did not perform the activity before the current illness, exacerbation or injury. 10-Not Attempted due to Environmental Limitations-(lack of equipment, weather restraints, etc.). 88-Not Attempted due to Medical Conditions or Safety Concerns. Eating (QC): 6 (Pt indicates no difficulty.) Shower/Bathe Self (QC): 4 (CGA) Upper Body Dressing (QC): 7 Lower Body Dressing (QC): 4 (CGA in stand at FWW) On/Off Footwear: 3 (Pt doffed gripper socks, required mod A with donning) Toileting Hygiene (QC): 4 (CGA in stand, pt able to manage clothing and perform hygiene) Toilet Transfer (QC): 4 (CGA on/off BSC) Other Treatment [id number] OT/PT cotreat due to pt's limited strength, endurance, mobility, and ability to coordinate UE/LEs with task. OT focused on ADLs, UE placement, cues for sequencing and safety while PT focused on transfers, LE placement, overall gross movements, and positioning. Pt in bed, transferred supine to sit EOB. She requested to use restroom, using FWW to transfer to BSC. Pt completed toileting, then transferred back to bed. Pt agreeable to sponge bath at EOB, pt able to wash all parts with CGA in stand at FWW. Pt used shower cap to wash hair, requiring min A due to IV at elbow in L arm. Pt then completed dressing, and brushed her hair at EOB. Pt required mod A with hair brushing due to tangles. Pt stood from EOB, ambulating with FWW past door, pt then requests seated rest dayanara k. Pt assisted back to bed. Post OT/PT cotreat, pt laying in bed, call light in reach and all needs met. Education OT Patient Education: Correct positioning, Energy conservation, Modified ADL techniques, Progress toward Goal/Update tx plan, Safety issues, Transfer techniques Teaching Recipient: Patient Teaching Methods: Discussion Response to Teaching: Verbalize Understanding OT Short Term Goals Short Term Goals Time Frame: Mar 19, 2020 Shower/bathe self: 4 Lower body dressin Putting on/taking off footwear: 4 OT [facility] Goals Practice Consultant Goals Time Frame: Apr 02, 2020 Eating (QC): 6 Oral Hygiene (QC): 6 Toileting Hygiene (QC): 6 Shower/Bathe Self (QC): 6 Upper Body Dressing (QC): 6 Lower Body Dressing (QC): 6 On/Off Footwear (QC): 6 Additional Goals: 1-Demonstrate ADL Tasks, 2-Verbalize Understanding, 3- ImproveStrength/Fede 1=Demonstrate adherence to instructed precautions during ADL tasks. 2=Patient will verbalize/demonstrate understanding of assistive de vices/modifications for ADL. 3=Patient will improve strength/tolerance for activity to enable patient to perform ADL's. OT Education/Plan Problem List/Assessment Assessment: Decreased Activ Tolerance, Decreased UE Strength, Impaired Funct Balance, Impaired I ADL's, Impaired Self-Care Skills Discharge Recommendations Plan Pt returned from ICU on 03/10/2020, POC and goals to remain the same as pt needs to return to independent PLOF to return home alone. Plan/Recommendations: Continue POC Treatment Plan/Plan of Care Patient would benefit from OT for education, treatment and training to promote independence in ADL's, mobility, safety and/or upper extremity function for ADL's. Plan of Care: ADL Retraining, Functional Mobility, Group Exercise/Act as Ind, UE Funct Exercise/Act, W/C Management Training Treatment Duration: Apr 02, 2020 Frequency: Modified Program (IRF) (23/12) Agreement: Yes Rehab Potential: Fair Time/GCodes Start Time: 11:00 Stop Time: 12:00 Total Time Billed (hr/min): 60 Billed Treatment Time OT/PT cotreat x60' 1, ADL 4 GAMA DIEGO OT Mar 10, 2020 14:30
[2020-03-10] MEDS: PIPERACILLIN/TAZOBACTAM (BULK) 4.5 GM in NS (IVPB) 100 ML IV SCH ×2 (14:38→20:32)
--- NOTE | 2020-03-10 14:39 | Occupational Ther Daily Note ---
OT Current Status-Daily Note Subjective Pt in bed, agreeable to OT tx. ADL-Treatment Therapy Code Descriptions/Definitions Functional [place] Measure: 0=Not Assessed/NA 4=Minimal Assistance 1=Total Assistance 5=Supervision or Setup 2=Maximal Assistance 6=Modified [place] 3=Moderate Assistance 7=Complete IndependenceSCALE: Activities may be completed with or without assistive devices. 6-Crlyfsyrdf-ocyyxan completes the activity by him/herself with no assistance from a helper. 5-Set-up or Clean-up Assistance-helper sets up or cleans up; patient completes activity. [place] assists only prior to or following the activity. 4-Supervision or Touching Assistance-helper provides verbal cues and/or touching/steadying and/or contact guard assistance as patient completes activity. Assistance may be provided throughout the activity or intermittently. 3-Partial/Moderate Assistance-helper does LESS THAN HALF the effort. [place] lifts, holds or supports trunk or limbs, but provides less than half the effort. 2-Substantial/Maximal Assistance-helper does MORE THAN HALF the effort. [place] lifts or holds trunk or limbs and provides more than half the effort. 6-Remqlyizt-jovhjy does ALL the effort. Patient does none of the effort to complete the activity. Or, the assistance of 2 or more helpers is required for the patient to complete the activity. If activity was not attempted, code reason: 7-Patient Refused. 9-Not Applicable-not attempted and the patient did not perform the activity befo re the current illness, exacerbation or injury. 10-Not Attempted due to Environmental Limitations-(lack of equipment, weather re straints, etc.). 88-Not Attempted due to Medical Conditions or Safety Concerns. Oral Hygiene (QC): 6 (Pt completed seated in w/c at sink) On/Off Footwear: 4 (SBA, pt able to don/doff tennis shoes seated EOB) Toileting Hygiene (QC): 7 Other Treatment Pt laying in bed, transferred sit to supine with SBA. Pt then used FWW to transfer from bed to w/c. Pt self-propelled w/c to bathroom sink where she completed oral care and face washing. In order to increase BUEs strength and functional endurance, and independence with functional mobility, pt self-pro pelled w/c around [facility] common area, multiple rest breaks as needed. Pt required cues to use arms to assist with propelling w/c, as she typically just uses her legs. Pt returned to her room, stating she is fatigued. OT assisted with positioning the w/c and walker, then pt transferred from w/c to bed, and then supine. Post OT tx, pt laying in bed, call light in reach and all needs met. Education OT Patient Education: Correct positioning, Energy conservation, Modified ADL techniques, Progress toward Goal/Update tx plan, Purpose of tx/functional activities, Safety issues, Transfer techniques, W/C management Teaching Recipient: Patient Teaching Methods: Discussion Response to Teaching: Verbalize Understanding OT Short Term Goals Short Term Goals Time Frame: Mar 19, 2020 Shower/bathe self: 4 Lower body dressin Putting on/taking off footwear: 4 OT [employer] Coordinator Goals Senior Care Goals Time Frame: Apr 02, 2020 Eating (QC): 6 Oral Hygiene (QC): 6 Toileting Hygiene (QC): 6 Shower/Bathe Self (QC): 6 Upper Body Dressing (QC): 6 Lower Body Dressing (QC): 6 On/Off Footwear (QC): 6 Additional Goals: 1-Demonstrate ADL Tasks, 2-Verbalize Understanding, 3- ImproveStrength/Fede 1=Demonstrate adherence to instructed precautions during ADL tasks. 2=Patient will verbalize/demonstrate understanding of assistive devices/modifications for ADL. 3=Patient will improve strength/tolerance for activity to enable patient to perform ADL's. OT Education/Plan Problem List/Assessment Assessment: Decreased Activ Tolerance, Decreased UE Strength, Impaired Funct Balance, Impaired I ADL's, Impaired Self-Care Skills Discharge Recommendations Plan/Recommendations: Continue POC Treatment Plan/Plan of Care Patient would benefit from OT for education, treatment and training to promote independence in ADL's, mobility, safety and/or upper extremity function for ADL's. Plan of Care: ADL Retraining, Functional Mobility, Group Exercise/Act as Ind, UE Funct Exercise/Act, W/C Management Training Treatment Duration: Apr 02, 2020 Frequency: Modified Program (IRF) (23/12) Agreement: Yes Rehab Potential: Fair Time/GCodes Start Time: 13:50 Stop Time: 14:20 Total Time Billed (hr/min): 30 Billed Treatment Time 1, ADL (10'), FA (20') GAMA DIEGO OT Mar 10, 2020 14:39
[2020-03-10 15:20] VITALS: BP 187/84
[2020-03-10 15:35] VITALS: BP 196/85
--- NOTE | 2020-03-10 15:41 | NUR ---
Pt is jain. Maintenance Engineer will provide Communion tomorrow.
[2020-03-10 17:23] VITALS: BP 198/80
[2020-03-10 17:42] VITALS: BP 180/85
[2020-03-10] MEDS ORDERED: cloNIDine 0.1 MG (CATAPRES) TAB PO PRN (19:45)
[2020-03-10] MEDS: SENNA W/DOCUSATE (SENOKOT S) TABLET PO SCH (20:31)
[2020-03-10] MEDS: ALPRAZolam 0.25 MG (XANAX) TAB PO PRN (20:47)
[2020-03-10] MEDS ORDERED: meTOprolol TARTRATE 25 MG (LOPRESSOR) TABLET PO SCH (21:00)
[2020-03-10] MEDS ORDERED: meTOprolol TARTRATE 50 MG (LOPRESSOR) TAB PO SCH (21:00)
[2020-03-11] MEDS: HYDROcodone/APAP 5 MG/325 MG (LORTAB) TAB PO PRN (03:56)
[2020-03-11] MEDS: PIPERACILLIN/TAZOBACTAM (BULK) 4.5 GM in NS (IVPB) 100 ML IV SCH ×3 (03:56→20:08)
[2020-03-11 05:01] VITALS: BP 156/71
[2020-03-11 06:05] LABS: BASOPHILS # (AUTO) 0.1 10^3/uL (0.0-0.1); BASOPHILS % (AUTO) 0 % (0-10); EOSINOPHILS # (AUTO) 0.6 10^3/uL (0.0-0.3); EOSINOPHILS % (AUTO) 5 % (0-10); HEMATOCRIT 35 % (35-52); HEMOGLOBIN 9.5 g/dL (11.5-16.0); LYMPHOCYTES # (AUTO) 2.5 10^3/uL (1.0-4.0); LYMPHOCYTES % (AUTO) 20 % (12-44); MEAN CORPUSCULAR HEMOGLOBIN 23 pg (25-34); MEAN CORPUSCULAR HGB CONC 28 g/dL (32-36); MEAN CORPUSCULAR VOLUME 83 fL (80-99); MEAN PLATELET VOLUME 9.6 fL (9.0-12.2); MONOCYTES # (AUTO) 0.9 10^3/uL (0.0-1.0); MONOCYTES % (AUTO) 7 % (0-12); NEUTROPHILS # (AUTO) 8.3 10^3/uL (1.8-7.8); NEUTROPHILS % (AUTO) 66 % (42-75); PLATELET COUNT 440 10^3/uL (130-400); WHITE BLOOD COUNT 12.5 10^3/uL (4.3-11.0)
[2020-03-11 06:18] LABS: ALBUMIN 3.6 GM/DL (3.2-4.5); BILIRUBIN,TOTAL 0.3 MG/DL (0.1-1.0); CALCIUM 8.6 MG/DL (8.5-10.1); CREATININE SERUM 1.08 MG/DL (0.60-1.30); POTASSIUM 4.2 MMOL/L (3.6-5.0); TOTAL PROTEIN 6.3 GM/DL (6.4-8.2)
--- NOTE | 2020-03-11 07:10 | Pulmonary Progress Note ---
Subjective Time Seen by a Provider: 07:06 Subjective/Events-last exam Pt appears to be doing well. Sepsis Event Evaluation Height, Weight, BMI Height: 5'7.50" Weight: 200lbs. 1.0oz. 90.663579ue; 41.13 BMI Method:Stated Exam Exam Vital Signs Date Time Temp Pulse Resp B/P (MAP) Pulse Ox O2 Delivery O2 Flow Rate FiO2 03/11/20 05:01 36.0 88 20 156/71 (99) 96 Nasal Cannula 4.00 03/11/20 03:19 81 Nasal Cannula 7.00 03/10/20 22:35 91 Nasal Cannula 3.50 03/10/20 21:01 Nasal Cannula 4.00 03/10/20 19:42 96 Mechanical Ventilator 3.50 03/10/20 19:41 96 Mechanical Ventilator 3.50 03/10/20 17:42 36.4 82 22 180/85 98 Room Air 4.00 03/10/20 17:23 36.6 72 16 198/80 (119) 98 Nasal Cannula 4.00 03/10/20 15:35 36.6 69 22 196/85 97 Room Air 4.00 03/10/20 15:20 36.2 72 24 187/84 97 Room Air 5.00 03/10/20 11:00 Nasal Cannula 2.00 03/10/20 11:00 36.9 83 16 154/87 (109) 97 Nasal Cannula 4.00 I & O 03/11/20 06:59 Intake Total 2465 ml Output Total 1000 ml Balance 1465 ml Height & Weight Height: 5'7.50" Weight: 200lbs. 1.0oz. 90.990584lg; 41.13 BMI Method:Stated General Appearance: No Apparent Distress, WD/WN, Chronically ill HEENT: PERRL/EOMI, Normal ENT Inspection, Pharynx Normal Neck: Full Range of Motion, Normal Inspection, Non Tender, Supple, Carotid Bruit Respiratory: Chest Non Tender, Lungs Clear, Normal Breath Sounds, No Accessory Muscle Use, No Respiratory Distress, Decreased Breath Sounds Cardiovascular: Regular Rate, Rhythm, No Edema, No Gallop, No JVD, No Murmur, Normal Peripheral Pulses Capillary Refill: Less Than 3 Seconds Extremity: Normal Capillary Refill, Normal Inspection, Normal Range of Motion, Non Tender, No Calf Tenderness, No Pedal Edema Neurologic/Psychiatric: Alert, Oriented x3, No Motor/Sensory Deficits, Normal Mood/Affect Skin: Normal Color, Warm/Dry Lymphatic: No Adenopathy Results Lab Laboratory Tests 03/11/20 05:48 Assessment/Plan Assessment/Plan Acute on chronic respiratory failure -Continue BiPAP. Currently on 4 liter NC Atelectasis r/o PNA -Zosyn -COVID swab negative Anemia s/p tranfusion Debilty -PT/OT MERCEDES GARZA DO Mar 11, 2020 07:09
[2020-03-11] MEDS: RT-ALBUTEROL/IPRATROPIUM 3 ML (DUONEB) VIAL INH SCH ×2 (07:17→19:12)
[2020-03-11] MEDS: ONDANSETRON 4 MG/2 ML (SDV) Z0FRAN IVP PRN (07:18)
[2020-03-11 08:00] VITALS: BP 152/68
--- NOTE | 2020-03-11 08:00 | NUR ---
NAUSEA GONE NOW. ONLY PAIN IS IN LEFT ARM FROM ARTHRITIS. DR. GARZA SAW PATIENT. NPO FOR SCOPES TODAY. STATES BREATHING IS IMPROVED.
[2020-03-11] MEDS: SENNA W/DOCUSATE (SENOKOT S) TABLET PO SCH ×2 (08:15→20:09)
[2020-03-11] MEDS: meTOprolol SUCCINATE 100 MG (TOPROL XL) TAB PO SCH (08:36)
[2020-03-11] MEDS ORDERED: PANTOPRAZOLE 40 MG (PROTONIX) TAB PO SCH (09:00)
[2020-03-11 09:15] VITALS: BP 179/74
--- NOTE | 2020-03-11 09:15 | NUR ---
DOWNSTAIRS FOR EGD AND COLONOSCOPY.
--- NOTE | 2020-03-11 10:18 | PM&R Progress Note ---
Subjective HPI/CC On Admission Date Seen by Provider: Mar 11, 2020 Time Seen by Provider: 10:15 Subjective/Events-last exam : EGD and colonoscopy done today showing severe gastritis but colonoscopy was normal Rapidly desaturated oxygen-paz when she doesnt wear her oxygen to 67% Maintain on 4L per minute Kenalog cream for psoriasis will be ordered Overall seems to be doing pretty well now Pt is less SOB today after a two days course in ICU maintained on BiPAP and Vapotherm and now nasal cannula Heart rate 120s, I did consult Dr. Fuentes, gave her a dose of 50mg Metoprolol Maintain on 3 liters of oxygen now Will DC catheter Home meds will be restarted today Overall much improved Will change to a regular diet Bowels not moving but she hasnt eaten much Review of Systems General: Fatigue, Malaise Pulmonary: Dyspnea Objective Exam Vital Signs Vital Signs Date Time Temp Pulse Resp B/P (MAP) Pulse Ox O2 Delivery O2 Flow Rate FiO2 03/11/20 20:22 Nasal Cannula 4.00 03/11/20 19:12 98 03/11/20 18:11 36.3 77 18 125/56 (79) Capillary Refill : Less Than 3 SecondsLess Than 3 Seconds General Appearance: No Apparent Distress, WD/WN, Chronically ill HEENT: PERRL/EOMI, Normal ENT Inspection, Pharynx Normal Neck: Full Range of Motion, Normal Inspection, Non Tender, Supple, Carotid Bruit Respiratory: Chest Non Tender, Lungs Clear, Normal Breath Sounds, No Accessory Muscle Use, No Respiratory Distress, Decreased Breath Sounds Cardiovascular: Regular Rate, Rhythm, No Edema, No Gallop, No JVD, No Murmur, Normal Peripheral Pulses Gastrointestinal: Normal Bowel Sounds, No Organomegaly, No Pulsatile Mass, Non Tender, Soft Back: Normal Inspection, No CVA Tenderness, No Vertebral Tenderness Extremity: Normal Capillary Refill, Normal Inspection, Normal Range of Motion, Non Tender, No Calf Tenderness, No Pedal Edema Neurologic/Psychiatric: Alert, Oriented x3, No Motor/Sensory Deficits, Normal Mood/Affect Skin: Normal Color, Warm/Dry Lymphatic: No Adenopathy Results/Procedures Lab Laboratory Tests 03/11/20 05:48 Patient resulted labs reviewed. FIM Transfers Therapy Code Descriptions/Definitions Functional [place] Measure: 0=Not Assessed/NA 4=Minimal Assistance 1=Total Assistance 5=Supervision or Setup 2=Maximal Assistance 6=Modified [place] 3=Moderate Assistance 7=Complete IndependenceSCALE: Activities may be completed with or without assistive devices. 5-Dpibzzthct-gegqtbp completes the activity by him/herself with no assistance from a helper. 5-Set-up or Clean-up Assistance-helper sets up or cleans up; patient completes activity. [place] assists only prior to or following the activity. 4-Supervision or Touching Assistance-helper provides verbal cues and/or touching/steadying and/or contact guard assistance as patient completes activity. Assistance may be provided throughout the activity or intermittently. 3-Partial/Moderate Assistance-helper does LESS THAN HALF the effort. [place] lifts, holds or supports trunk or limbs, but provides less than half the effort. 2-Substantial/Maximal Assistance-helper does MORE THAN HALF the effort. [place] lifts or holds trunk or limbs and provides more than half the effort. 6-Mnuxbvkvh-jxeqel does ALL the effort. Patient does none of the effort to complete the activity. Or, the assistance of 2 or more helpers is required for the patient to complete the activity. If activity was not attempted, code reason: 7-Patient Refused. 9-Not Applicable-not attempted and the patient did not perform the activity before the current illness, exacerbation or injury. 10-Not Attempted due to Environmental Limitations-(lack of equipment, weather restraints, etc.). 88-Not Attempted due to Medical Conditions or Safety Concerns. Roll Left to Right (QC): 6 Sit to Lying (QC): 4 Sit to Stand (QC): 4 Chair/Gtt-ka-Mnwwz Xfer(QC): 4 Car Transfer (QC): 88 (unable to tolerate this this date. ) Gait Training Does the Patient Walk?: Yes Distance: 15' x2, 30' Walk 10 feet (QC): 4 Walk 50 ft with 2 Turns(QC): 88 (unable to walk further than 25 ft before needing to sit and rest. ) Walk 150 ft (QC): 88 Walking 10ft/uneven surface-QC: 88 Gait Assistive Device: FWW Wheelchair Training Does the Pt Use a Wheelchair?: Yes Distance: 50 ft Wheel 50 ft with 2 turns (QC): 4 Wheel 150 ft (QC): 7 Type of Wheelchair: Manual Stair Training 1 Step (curb) (QC): 7 4 Steps (QC): 9 12 Steps (QC): 9 Balance Picking up an Object (QC): 88 ADL-Treatment Eating (QC): 6 (Pt indicates no difficulty.) Oral Hygiene (QC): 6 (Pt completed seated in w/c at sink) Shower/Bathe Self (QC): 4 (CGA) Upper Body Dressing (QC): 7 Lower Body Dressing (QC): 4 (CGA in stand at FWW) On/Off Footwear (QC): 4 (SBA, pt able to don/doff tennis shoes seated EOB) Toileting Hygiene (QC): 7 Toilet Transfer (QC): 4 (CGA on/off BSC) Assessment/Plan Assessment and Plan Assess & Plan/Chief Complaint Assessment: Severe debility due to acute on chronic respiratory failure h/o trach 05/29 h/o PEG tube 05/29 Mental illness precluding fast recovery Former smoker COPD OHS Dementia Plan: Monitor closely Inpatient rehabilitation protocol with therapies Dr Berman consultation appreciated 03/10/20: Restart IRF protocol Transfuse 1 unit of blood Consult Dr Evans may need scope, maintain PPI in meantime Appreciate Dr Fuentes and Dr Berman 03/11/20: Appreciate EGD and Colonoscopy from Dr Evans Gastritis treatment with PPI and Carafate (1) Debility (2) Acute on chronic respiratory failure Status: Chronic (3) Morbid obesity Status: Acute (4) Generalized weakness Status: Acute (5) Bipolar disorder Status: Chronic (6) Dementia Status: Acute (7) Psoriasis Status: Chronic (8) Hypertension Status: Chronic (9) Lupus Status: Chronic (10) Oxygen dependent Status: Chronic (11) Obesity hypoventilation syndrome (12) Chronic mental illness Status: Chronic (13) Acute on chronic respiratory failure with hypoxia and hypercapnia Status: Acute SAMANTHA COLLIER DO Mar 11, 2020 10:18
--- NOTE | 2020-03-11 10:18 | Individualized Plan of Care ---
Individualized Plan of Care Rehab Nursing IPOC Order Admission Date Mar 08, 2020 at 13:28 Current Orders Orders Admission Order(Inpt,Obs,Sdc) (03/08/20 13:55) Vital Signs: Per Unit Policy ( 08,16,00 (03/08/20 13:55) Mukul Ríos 09,21 (03/08/20 13:55) Sequential Compression Device Q4H (03/08/20 13:55) Stone Breaker-Inpt Rehab Con (03/08/20 13:55) Rehab Nursing Orders-Ipoc (03/08/20 13:55) Physical Therapy Rehab Orders (03/08/20 13:55) Occupational Therapy Rehab Ord (03/08/20 13:55) Speech Therapy Rehab Orders (03/08/20 13:55) Cbc With Automated Diff (03/09/20 06:00) Comprehensive Metabolic Panel (03/09/20 06:00) General/Regular (03/08/20 Lunch) Intake & Output 06,14,22 (03/08/20 13:55) Precautions (Aru) (03/08/20 13:55) Rehab-Intensity Of Therapy (03/08/20 13:55) Initiate Admission Nursing Pro .admission (03/08/20 13:55) Acetaminophen Tablet (Tylenol Tablet) (03/08/20 14:00) Alprazolam Tablet (Xanax Tablet) (03/08/20 14:00) Calcium Carbonate Chew Tablet (Antacid C (03/08/20 14:00) Diphenhydramine Tablet (Benadryl Tablet) (03/08/20 14:00) Docusate Sodium Capsule (Colace Capsule) (03/08/20 21:00) Docusate Sodium Capsule (Colace Capsule) (03/08/20 14:00) Bisacodyl Suppository (Dulcolax Supposit (03/08/20 14:00) Lactulose Oral Solution (Enulose Oral So (03/08/20 14:00) Na Phos/Na Biphos Enema (Fleet Enema Jesus (03/08/20 14:00) Guaifenesin/Codeine Syrup (Robitussin Ac (03/08/20 14:00) Hydrocodone/Apap 5/325 Tablet (Lortab 5 (03/08/20 14:00) Loperamide Tablet (Imodium Tablet) (03/08/20 14:00) Enoxaparin Injection (Lovenox Injection) (03/08/20 14:00) Melatonin Tablet (Melatonin Tablet) (03/08/20 14:00) Polyethylene Glycol Powder Pkt (Miralax (03/08/20 21:00) Ondansetron Oral Dissolve Tab (Zofran (03/08/20 14:00) Senna S Tablet (Senokot S Tablet) (03/08/20 21:00) Initiate Admission Nursing Pro .admission (03/08/20 13:55) Acetaminophen Tablet/Caplet (Tylenol T (03/08/20 14:00) Arterial Blood Gas (03/08/20 14:45) Consult Pulmonology (03/08/20 14:45) Arterial Blood Draw (03/08/20 14:45) Flu Quad (3yoa+) 2020-21 (Afluria Quad 2 (03/08/20 15:30) Patient Visit (03/08/20 ) Pt Eval Moderate Complexity (03/08/20 ) Functional Activities, Ea 15 (03/08/20 ) Albuterol Pre-Mix Nebs (Rt) (Proventil (03/08/20 18:00) Amlodipine Tablet (Norvasc Tablet) (03/09/20 09:00) Atorvastatin Tablet (Lipitor Tablet) (03/08/20 21:00) Donepezil Tablet (Aricept Tablet) (03/08/20 21:00) Fluticasone/Salmeterol 115/21 (Advair Hf (03/08/20 21:00) Folic Acid Tablet (Folic Acid Tablet) (03/09/20 09:00) Metformin Tablet (Glucophage Tablet) (03/08/20 16:00) Metoprolol Succinate (Xl) Tab (Toprol Xl (03/08/20 21:00) Omeprazole (Non-Formulary) (Prilosec (No (03/08/20 16:00) Sucralfate Tablet (Carafate Tablet) (03/08/20 17:00) (Nf) Acetaminophen (Tylenol Arthritis) (03/08/20 15:45) (Nf) Cetirizine Hcl (03/09/20 09:00) (Nf) Cholecalciferol (Vitamin D3) (Vitam (03/09/20 09:00) (Nf) Cyanocobalamin (Vitamin B-12) (B-12 (03/09/20 09:00) (Nf) Olanzapine (03/08/20 21:00) (Nf) Olanzapine (03/08/20 21:00) Bipap (Bilevel) Set Up (03/08/20 15:45) Sodium Chloride Flush (Catheter Flush Sy (03/08/20 16:00) Loratadine Tablet (Claritin Tablet) (03/09/20 09:00) Cholecalciferol Capsule/Tablet (Vitamin (03/09/20 09:00) Cyanocobalamin Tablet (Vitamin B-12 Tabl (03/09/20 07:00) Methotrexate Tablet (Methotrexate Tablet (03/13/20 09:00) Arterial Blood Draw (03/08/20 15:25) Olanzapine Tablet (Zyprexa Tablet) (03/08/20 21:00) Pantoprazole Tablet (Protonix Tablet) (03/08/20 21:00) Acetaminophen Tablet/Caplet (Tylenol T (03/08/20 16:15) Arterial Blood Draw (03/08/20 17:10) Arterial Blood Draw (03/08/20 ) Basic Metabolic Panel (03/08/20 18:07) Cbc With Automated Diff (03/08/20 18:07) Magnesium (03/08/20 18:07) Phosphorus (03/08/20 18:07) Chest 1 View, Ap/Pa Only (03/08/20 18:07) Albuterol/Ipra Inhalation Soln (Duoneb I (03/08/20 22:00) Svn Small Volume Nebulizer (03/08/20 18:10) Arterial Blood Gas (03/08/20 18:21) Albuterol/Ipra Inhalation Soln (Duoneb I (03/08/20 18:23) Manual Differential (03/08/20 18:44) Consult Cardiology (03/10/20 09:53) Catheter(Urinary) Discontinue (03/10/20 09:53) Metoprolol Tartrate (Ir) Tab (Lopressor (03/10/20 21:00) General/Regular (03/10/20 Lunch) Code/Resuscitation (03/10/20 11:29) Catheter(Urinary) Discontinue (03/10/20 11:29) Alprazolam Tablet (Xanax Tablet) (03/10/20 11:30) Acetaminophen Tablet (Tylenol Tablet) (03/10/20 11:30) Albuterol Inhaler (Ventolin Hfa) (03/10/20 11:30) Calcium Carbonate Chew Tablet (Antacid C (03/10/20 11:30) Docusate Sodium Capsule (Colace Capsule) (03/10/20 11:30) Enoxaparin Injection (Lovenox Injection) (03/10/20 11:30) Hydrocodone/Apap 5/325 Tablet (Lortab 5 (03/10/20 11:30) Iron Sucrose Injection (Venofer Injectio (03/12/20 09:00) Melatonin Tablet (Melatonin Tablet) (03/10/20 11:30) Ondansetron Injection (Zofran Injectio (03/10/20 11:30) Piperacillin/Tazobactam (Bulk) (Zosyn In (03/10/20 12:30) Senna S Tablet (Senokot S Tablet) (03/10/20 21:00) Diphenhydramine Tablet (Benadryl Tablet) (03/10/20 11:30) Metoprolol Succinate (Xl) Tab (Toprol Xl (03/11/20 09:00) Consult Cardiology (03/10/20 11:29) Consult Pulmonology (03/10/20 11:29) Furosemide Injection (Lasix Injection) (03/10/20 12:15) Vital Signs: Special (Order) (03/10/20 11:29) Consent-Obtain Consent For (03/10/20 11:29) Monitor S/S Transfusion Reacti (03/10/20 11:29) Ns Iv 500 Ml (Sodium Chloride 0.9%) (03/10/20 11:29) Furosemide Injection (Lasix Injection) (03/10/20 11:30) Red Cells Leukocytes Reduced (03/10/20 11:29) Pantoprazole Tablet (Protonix Tablet) (03/11/20 09:00) Consult General Surgery (03/10/20 11:29) Ns Iv 500 Ml (Sodium Chloride 0.9%) (03/10/20 11:30) Cbc With Automated Diff (03/11/20 06:00) Comprehensive Metabolic Panel (03/11/20 06:00) Metoprolol Tartrate (Ir) Tab (Lopressor (03/10/20 21:00) Type And Screen Redraw (03/09/20 03:24) Consent-Obtain Consent For (03/10/20 12:48) Preop Checklist (03/10/20 12:48) Magnesium Citrate Oral Soln (Citrate Of (03/10/20 14:00) Magnesium Citrate Oral Soln (Citrate Of (03/10/20 13:00) Venous Access Request Order (03/10/20 13:38) Patient Visit (03/10/20 ) Gait Training, Ea 15 Min (03/10/20 ) Functional Activities, Ea 15 (03/10/20 ) Consent-Obtain Consent For (03/10/20 17:10) Preop Checklist (03/10/20 17:10) Coronavirus Sars-Cov-2 So 2018 (03/10/20 17:10) Mrsa Screen (Icu,Preop,Cath) (03/10/20 17:10) Npo After Midnight (Nursing Or (03/10/20 17:10) Nothing By Mouth (03/11/20 Breakfast) Hydralazine Tablet (Apresoline Tablet) (03/10/20 19:45) Clonidine Tablet (Catapres Tablet) (03/10/20 19:45) Amb Us Guide Vascular Access (03/10/20 ) BNP (03/11/20 07:07) Albuterol/Ipra Inhalation Soln (Duoneb I (03/11/20 08:00) Svn Small Volume Nebulizer (03/11/20 07:07) Triamcinolone 0.1% Cream 15 Gm (Kenalog (03/11/20 10:29) Pantoprazole Tablet (Protonix Tablet) (03/11/20 11:15) Sucralfate Tablet (Carafate Tablet) (03/11/20 16:00) Ulcer/Peptic [place] (03/11/20 Breakfast) Sodium Chloride Flush (Catheter Flush Sy (03/11/20 11:45) Sodium Chloride Flush (Catheter Flush Sy (03/11/20 14:00) Patient Visit (03/11/20 ) Speech Sound Lang Comp (03/11/20 ) Treat. Speech/Lang/Voice (03/11/20 ) Patient Visit (03/11/20 ) Exercise Therap, Ea 15 Min (03/11/20 ) Functional Activities, Ea 15 (03/11/20 ) Albuterol Pre-Mix Nebs (Rt) (Proventil (03/11/20 17:45) Amlodipine Tablet (Norvasc Tablet) (03/12/20 09:00) Atorvastatin Tablet (Lipitor Tablet) (03/11/20 21:00) Cyanocobalamin Tablet (Vitamin B-12 Tabl (03/12/20 09:00) Donepezil Tablet (Aricept Tablet) (03/11/20 21:00) Fluticasone/Salmeterol 115/21 (Advair Hf (03/11/20 21:00) Metformin Tablet (Glucophage Tablet) (03/12/20 07:00) Methotrexate Tablet (Methotrexate Tablet (03/11/20 17:45) (Nf) Cetirizine Hcl (03/12/20 09:00) (Nf) Cholecalciferol (Vitamin D3) (Vitam (03/12/20 09:00) (Nf) Folic Acid (03/12/20 09:00) (Nf) Olanzapine (03/11/20 21:00) (Nf) Olanzapine (03/11/20 21:00) Loratadine Tablet (Claritin Tablet) (03/12/20 09:00) Folic Acid Tablet (Folic Acid Tablet) (03/12/20 09:00) Olanzapine Tablet (Zyprexa Tablet) (03/11/20 21:00) Cholecalciferol Capsule/Tablet (Vitamin (03/12/20 09:00) Accucheck Bid DBID (03/11/20 19:35) Rehab Nursing Orders: Ongoing Assess. of Cognitive Status, Ongoing Assess. of Function Status, Bladder Management, Bladder Scan, Bladder Training, Bowel Management, Bowel Training, Disease Management & Educaiton, DVT Prophylaxis, Fall Prevention, Fluid/Electrolyte/Nutrition Mgmt, Infection Prevention, M edication Management & Education, Management of Risks & Complications, Nutrition Management, Pain Management, Patient/Family Support, Safety Management Intensity of Therapy to be met Patient to be seen: Min.3h per day/5 of 7d PT IPOC Problem List: Activity Tolerance, Functional Strength, Safety, Balance, Gait, Transfer, Bed Mobility, ROM Treatment Plan: Continue Plan of Care Bed Mobility, Education, Functional Activity Fede, Functional Strength, Group Therapy, Gait, Safety, Therapeutic Exercise, Transfers Treatment Duration: Apr 05, 2020 Frequency: At least 5 of 7 days/Wk (IRF) Estimated Hrs Per Day: Other (pt will achieve 15hrs over 7 days) OT IPOC Problems: Decreased Activ Tolerance, Decreased UE Strength, Impaired Funct Balance, Impaired I ADL's, Impaired Self-Care Skills OT Treatment, Training and Edu: Yes Plan of Care: ADL Retraining, Functional Mobility, Group Exercise/Act as Ind, UE Funct Exercise/Act, W/C Management Training Treatment Duration: Apr 02, 2020 Frequency: Modified Program (IRF) (23/12) Estimated Hrs Per Day: .[address] IPOC Speech Therapy Treatment Plan: Modify Plan, See Comments Treatment Duration: Mar 11, 2020 Frequency: Modified Program (IRF) Estimated Hrs Per Day: Other Stone Breaker/Case Mgmt Stone Breaker/Case Managemen: Discharge Planning Dietitian/Sampling Theory Teacher Dietitian/Sampling Theory Teacher to monitor nutritional status and make changes and/or recommendations as needed and work with speech pathology on dietary upgrades as the occur. Physician IPOC Medical Issues being managed closely and that require the 24 hour availability of a physician: Recent respiratory failure acute on chronic requiring transfer to ICU will require very close supervision for any decompensation which could occur. Medical Issues: Bowel/Bladder Function, DVT Prophylaxis, Falls Precautions, Fluid/Electrolyte/Nutrition Balance, Infection Protection, Pain Management Brief Synthesis of Preadmission Screen, Post-Admission Evaluation, and Therapy Evaluations: PT OT will help teach energy conservation along with ST to help cognition in order to regain enough function in order to return to live independently. Medical Prognosis: Fair Anticipated Length of Stay: 10 days SAMANTHA COLLIER DO Mar 11, 2020 10:18
--- NOTE | 2020-03-11 11:00 | NUR ---
RETURNED TO ROOM. DROWSY AT FIRST. THEN VERY HUNGRY AND STARTED ON BLAND DIET.
--- NOTE | 2020-03-11 11:06 | Progress Note-Post Operative ---
Post-Operative Progess Note Surgeon (s)/Boom Tender (s) Surgeon SID GROVER MD Boom Tender: none Pre-Operative Diagnosis anemia with hx GERD Post-Operative Diagnosis reflux esophagitis(stage 2), small HH(2cm), severe gastritis stomach antrum. chronic stage 2 ext and int hemorrhoids. Procedure & Operative Findings Date of Procedure 03/11/20 Procedure Performed/Findings EGD with bx. Colonoscopy. Anesthesia Type mac Estimated Blood Loss Estimated blood loss (mL): minimal Specimens/Packing Specimens Removed ge jxn, antrum SID GROVER MD Mar 11, 2020 11:06
[2020-03-11] MEDS: hydrALAZINE (APRESOLINE) 25 MG TAB PO PRN (11:18)
[2020-03-11] MEDS: PANTOPRAZOLE 40 MG (PROTONIX) TAB PO SCH ×2 (11:18→20:08)
[2020-03-11] MEDS: TRIAMCINOLONE 0.1% CR (KENALOG) 15 GM TUBE TOP SCH ×2 (11:18→20:12)
--- NOTE | 2020-03-11 11:28 | Occupational Ther Daily Note ---
OT Current Status-Daily Note Subjective Pt returning from procedure (colonoscopy, EGD). No c/o pain at this time. Mental Status/Objective Patient Orientation: Person, Place, Time, Situation Attachments: IV, Oxygen (4L) ADL-Treatment Sit<-->supine SBA due to dizziness. CGA for safety due to dizziness when ambulating ~10 steps to bed using FWW. Pt sat EOB independently while nrsg completed VS, see nrsg notes. Pt laid back to supine in bed SBA. Pt able to move side to side in bed to position self. Pt requested food stating that she was hungry. Nrsg taking care of getting pt meal. Pt agrees to complete oral care sitting up in bed. After gathering supplies for pt, pt able to complete oral care by self. Pt then was handed brush for hair. Pt able to reach both sides of head and required assistance to reach back of head, B UE WFL. After session, pt left in care of DOG FOOD SHREDDER OPERATOR. All needs met. Therapy Code Descriptions/Definitions Functional [place] Measure: 0=Not Assessed/NA 4=Minimal Assistance 1=Total Assistance 5=Supervision or Setup 2=Maximal Assistance 6=Modified [place] 3=Moderate Assistance 7=Complete IndependenceSCALE: Activities may be completed with or without assistive devices. 3-Xxiagpygby-lfbngyv completes the activity by him/herself with no assistance from a helper. 5-Set-up or Clean-up Assistance-helper sets up or cleans up; patient completes activity. [place] assists only prior to or following the activity. 4-Supervision or Touching Assistance-helper provides verbal cues and/or touching/steadying and/or contact guard assistance as patient completes activity. Assistance may be provided throughout the activity or intermittently. 3-Partial/Moderate Assistance-helper does LESS THAN HALF the effort. [place] lifts, holds or supports trunk or limbs, but provides less than half the effort. 2-Substantial/Maximal Assistance-helper does MORE THAN HALF the effort. [place] lifts or holds trunk or limbs and provides more than half the effort. 5-Tubezamep-atnyhv does ALL the effort. Patient does none of the effort to complete the activity. Or, the assistance of 2 or more helpers is required for the patient to complete the activity. If activity was not attempted, code reason: 7-Patient Refused. 9-Not Applicable-not attempted and the patient did not perform the activity before the current illness, exacerbation or injury. 10-Not Attempted due to Environmental Limitations-(lack of equipment, weather restraints, etc.). 88-Not Attempted due to Medical Conditions or Safety Concerns. Oral Hygiene (QC): 5 OT Short Term Goals Short Term Goals Time Frame: Mar 19, 2020 Shower/bathe self: 4 Lower body dressin Putting on/taking off footwear: 4 OT Correction Goals Correction Goals Time Frame: Apr 02, 2020 Eating (QC): 6 Oral Hygiene (QC): 6 Toileting Hygiene (QC): 6 Shower/Bathe Self (QC): 6 Upper Body Dressing (QC): 6 Lower Body Dressing (QC): 6 On/Off Footwear (QC): 6 Additional Goals: 1-Demonstrate ADL Tasks, 2-Verbalize Understanding, 3-ImproveStrength/Fede 1=Demonstrate adherence to instructed precautions during ADL tasks. 2=Patient will verbalize/demonstrate understanding of assistive devices/modifications for ADL. 3=Patient will improve strength/tolerance for activity to enable patient to perform ADL's. OT Education/Plan Problem List/Assessment Assessment: Decreased Activ Tolerance, Decreased Safety Aware, Impaired Self- Care Skills Discharge Recommendations Plan/Recommendations: Continue POC Treatment Plan/Plan of Care Patient would benefit from OT for education, treatment and training to promote independence in ADL's, mobility, safety and/or upper extremity function for ADL's. Plan of Care: ADL Retraining, Functional Mobility, Group Exercise/Act as Ind, UE Funct Exercise/Act, W/C Management Training Treatment Duration: Apr 02, 2020 Frequency: Modified Program (IRF) (23/12) Agreement: Yes Rehab Potential: Fair Time/GCodes Start Time: 10:55 Stop Time: 11:25 Total Time Billed (hr/min): 30 Billed Treatment Time 1 visit-FA 1 (15 min) ADL 1 (15 min) PILLO BABCOCK Mar 11, 2020 11:28
[2020-03-11] MEDS: ENOXAPARIN 40 MG/0.4 ML (LOVENOX) SYR SC SCH ×2 (11:29→23:37)
--- NOTE | 2020-03-11 11:36 | Occupational Ther Daily Note ---
OT Current Status-Daily Note Subjective Pt laying in bed, states she is tired, agreeable to OT tx with mod encouragement,. Pt has colonoscopy scheduled for today. Mental Status/Objective Patient Orientation: Person, Place, Time, Situation Attachments: Oxygen ADL-Treatment Therapy Code Descriptions/Definitions Functional [place] Measure: 0=Not Assessed/NA 4=Minimal Assistance 1=Total Assistance 5=Supervision or Setup 2=Maximal Assistance 6=Modified [place] 3=Moderate Assistance 7=Complete IndependenceSCALE: Activities may be completed with or without assistive devices. 3-Ikkexeqplh-vkiiwpj completes the activity by him/herself with no assistance from a helper. 5-Set-up or Clean-up Assistance-helper sets up or cleans up; patient completes activity. [place] assists only prior to or following the activity. 4-Supervision or Touching Assistance-helper provides verbal cues and/or touching/steadying and/or contact guard assistance as patient completes activity. Assistance may be provided throughout the activity or intermittently. 3-Partial/Moderate Assistance-helper does LESS THAN HALF the effort. [place] lifts, holds or supports trunk or limbs, but provides less than half the effort. 2-Substantial/Maximal Assistance-helper does MORE THAN HALF the effort. [place] lifts or holds trunk or limbs and provides more than half the effort. 8-Luyqbudom-fkqejo does ALL the effort. Patient does none of the effort to complete the activity. Or, the assistance of 2 or more helpers is required for the patient to complete the activity. If activity was not attempted, code reason: 7-Patient Refused. 9-Not Applicable-not attempted and the patient did not perform the activity before the current illness, exacerbation or injury. 10-Not Attempted due to Environmental Limitations-(lack of equipment, weather restraints, etc.). 88-Not Attempted due to Medical Conditions or Safety Concerns. Shower/Bathe Self (QC): 4 (Sponge bath, CGA in stand at FWW) Upper Body Dressing (QC): 4 (SBA don/doff truss puller helper shirt) Lower Body Dressing (QC): 4 (CGA in stand at FWW) On/Off Footwear: 4 (SBA, pt able to doff/sondra gripper socks.) Toileting Hygiene (QC): 4 (CGA, pt able to manage clothing and perform hygiene.) Other Treatment Pt laying in bed, transferred supine to sit EOB with SBA. Pt completed sponge bath and dressing sitting EOB, requesting BSC. Pt transferred bed to BSC with CGA. Pt completed toileting, then transferred to w/c. In order to increase BUE strength and functional endurance, pt self-propelled w/c around PRU common area, and into the gym. Pt required frequent rest breaks with task. Pt then completed x3 mins on arm bike with min resistance, she had difficulty maintaining grasp on handles, with hands slipping off. Pt then self-propelled w/c back to her room, requiring min A with w/c mobility through doors and around corners. Post OT Tx, pt seated upright in w/c, call light in reach and all needs met. Education OT Patient Education: Correct positioning, Energy conservation, Modified ADL techniques, Progress toward Goal/Update tx plan, Purpose of tx/functional activities, Safety issues, Transfer techniques, W/C management Teaching Recipient: Patient Teaching Methods: Discussion Response to Teaching: Verbalize Understanding OT Short Term Goals Short Term Goals Time Frame: Mar 19, 2020 Shower/bathe self: 4 Lower body dressin Putting on/taking off footwear: 4 OT Nursing Home Goals Pediatric Geneticist Goals Time Frame: Apr 02, 2020 Eating (QC): 6 Oral Hygiene (QC): 6 Toileting Hygiene (QC): 6 Shower/Bathe Self (QC): 6 Upper Body Dressing (QC): 6 Lower Body Dressing (QC): 6 On/Off Footwear (QC): 6 Additional Goals: 1-Demonstrate ADL Tasks, 2-Verbalize Understanding, 3-Im proveStrength/Fede 1=Demonstrate adherence to instructed precautions during ADL tasks. 2=Patient will verbalize/demonstrate understanding of assistive devices/modifications for ADL. 3=Patient will improve strength/tolerance for activity to enable patient to perform ADL's. OT Education/Plan Problem List/Assessment Assessment: Decreased Activ Tolerance, Decreased UE Strength, Impaired Funct Balance, Impaired I ADL's, Impaired Self-Care Skills Discharge Recommendations Plan/Recommendations: Continue POC Treatment Plan/Plan of Care Patient would benefit from OT for education, treatment and training to promote independence in ADL's, mobility, safety and/or upper extremity function for ADL's. Plan of Care: ADL Retraining, Functional Mobility, Group Exercise/Act as Ind, UE Funct Exercise/Act, W/C Management Training Treatment Duration: Apr 02, 2020 Frequency: Modified Program (IRF) (23/12) Agreement: Yes Rehab Potential: Fair Time/GCodes Start Time: 08:00 Stop Time: 09:00 Total Time Billed (hr/min): 60 Billed Treatment Time 1, ADL 2 (25'), FA 2 (35') GAMA DIEGO OT Mar 11, 2020 11:36
[2020-03-11] MEDS ORDERED: CATHETER FLUSH 10 ML SYR IV PRN (11:45)
--- NOTE | 2020-03-11 12:34 | ST Cognitive Linguistic Eval ---
Speech Evaluation-General Medical Diagnosis COPD myopathy Onset Date: Mar 05, 2020 Therapy Diagnosis Therapy Diagnosis: Cognitive-communication Referral Referring Physician: Dr. Pringle Medical History Pertinent Medical History: CAD, COPD, Dementia, GERD, HTN, Hypothroidism, OA, Smoking Reviewed History: Yes Social History Current Living Status: Alone Speech PLF-Current Status Prior Level of Function Patient lives home alone where she was independent for her daily needs. She does have a daughter who lives in the area who assists with daily needs PRN. Subjective Patient was pleasant and cooperative with the cognitive assessment. Language Eval: Auditory Comprehends Simple Yes/No Ques: Functional Indent/Objects Multiple Burrell: Functional Ident/Pics in Multiple Burrell: Functional Follows 1-Step Commands: Functional Follows Complex Directions: Mild Follows General Conversations: Functional Language Eval: Verbal Language Completes Spontaneous Greeting: Functional Produces Auto, Serial Info: Functional Imitates Simple Words/Phrases: Functional Word Finding: Mild Requests Basic Needs: Functional States Basic Personal Info: Functional Expresses Complex Ideas: Mild Objective Cognitive Domain Memory: Mild Problem Solving: Mild Executive Functions: Mild Visuospatial Skills: WNL Composite Severity Rating: Mild Clock Drawing Severity Rating: Mild Objective Formal/Standardized Tests [facility] Status ([facility]) Results 24/30, within the Mild Neurocognitive Disorder range of function Oral Motor/Speech Production Within Normal Limits Impression Patient is a 60 y/o female who was admitted to the ARU following falls. Patient is known to me from a recent admission due to weakness. Patient's health issues appear to be advancing with decreased ability to maintain independence. The patient was given the SLUMS at bedside with a score of 24/30 obtained. Patient's score is with the MNCD range of function which indicates a need for skilled ST services in order to return home. The therapy sessions will focus on improving her cognitive level of function for safety and independence. Speech Patient Assess Expression of Ideas/Wants: Exhibits (3) Understanding Verbal Content: Usually Understands (3) Brief Interview-Mental Status: Yes Repetition of Three Words: Three (3) Temporal Orientation: Year: Correct (3) Temporal Orientation: Month: Accurate within 5 days(2) Temporal Orientation: Day: Correct (1) Recall : Wear to say "Sock": Yes,after cueing (1) Recall : Color: Yes, after cueing (1) Recall : Bed: No, could not recall (0) Memory/Recall Ability: Current season, That he or she is in a hsp/hsp unit Speech Short Term Goals Short Term Goals Short Term Goals 1) The patient will complete memory tasks related to her daily needs at 80% or greater with minimal cues. 2) The patient will complete safety awareness tasks related to her daily needs at 80% or greater with minimal cues. 3) The patient will complete problem solving tasks related to her daily needs at 80% or greater with minimal cues. Speech Halfway Goals Scheduling Coordinator Goals The patient will improve her cognitive communication abilities to be able to complete daily tasks with minimal assist. Speech-Plan Patient/Family Goals Patient/Family Goals: The patient plans on returning to her home upon discharge. Treatment Plan Speech Therapy Treatment Plan: Continue Plan of Care Treatment Duration: Mar 24, 2020 Frequency: 4 times per week (Patient will receive skilled ST 4-5x per week) Estimated Hrs Per Day: .5 hour per day Rehab Potential: Fair Barriers to Learning: Patient's decreased cognitive function, ongoing health issues Pt/Family Agrees to Plan: Yes Safety Risks/Education Teaching Recipient: Patient Teaching Methods: Discussion Response to Teaching: Verbalize Understanding Education Topics Provided: Safety within her room, communication of wants/needs Time Speech Therapy Time In: 11:25 Speech Therapy Time Out: 11:40 Total Billed Time: 15 Billed Treatment Time 1, FLORENCE CAMACHO [address] ST Mar 11, 2020 12:33
--- NOTE | 2020-03-11 12:47 | Progress Note ---
ANN DOTY,MED STUDENT 03/11/20 1247: Progress Note Progress note: 03/11/20 Very drowsy this morning, says she didn't sleep well last night Not SOB today, states she is breathing okay Completed bowel prep for EGD and colonoscopy today Currently on 4L O2 via NC Hgb improved to 9.5 today ROSALIND COLLIER DO 03/12/20 1635: Supervisory-Addendum Brief Verification & Attestation Participated in pt care: history, MDM, physical Personally performed: exam, history, MDM, supervision of care Care discussed with: Medical Student Procedures: n/a Results interpretation: Verified all documentation Verification and Attestation of Medical Student E/M Service A medical student performed and documented this service in my presence. I reviewed and verified all information documented by the medical student and made modifications to such information, when appropriate. I personally performed the physical exam and medical decision making. Rosalind Collier, Mar 12, 2020,16:35 ANN DOYT,MED STUDENT Mar 11, 2020 12:47 ROSALIND COLLIER DO Mar 12, 2020 16:35
[2020-03-11] MEDS: CATHETER FLUSH 10 ML SYR IV SCH ×2 (14:05→20:09)
--- NOTE | 2020-03-11 15:15 | Physical Therapy Daily Note ---
PT Daily Note-Current Subjective Pt presents laying supine in bed. Pt agrees to PT. Pt reports 3/10 pain all over. Appearance At end of PT treatment pt needed to use the restroom. She was assisted to toilet where she had a bowel movement; pt was able to wipe herself but wipes returned bloody. Nurses were notified of this. Pt then returned to bed where she has access to tray, call button, and all needs have been met. Mental Status Patient Orientation: Person, Place, Time, Eyes Open, Situation, Mumbles Attachments: Oxygen, IV Transfers SCALE: Activities may be completed with or without assistive devices. 3-Bdgjdtdkew-myqwebk completes the activity by him/herself with no assistance from a helper. 5-Set-up or Clean-up Assistance-helper sets up or cleans up; patient completes activity. [place] assists only prior to or following the activity. 4-Supervision or Touching Assistance-helper provides verbal cues and/or touching/steadying and/or contact guard assistance as patient completes activity. Assistance may be provided throughout the activity or intermittently. 3-Partial/Moderate Assistance-helper does LESS THAN HALF the effort. [place] lifts, holds or supports trunk or limbs, but provides less than half the effort. 2-Substantial/Maximal Assistance-helper does MORE THAN HALF the effort. [place] lifts or holds trunk or limbs and provides more than half the effort. 4-Nxyeaafsu-oifftb does ALL the effort. Patient does none of the effort to complete the activity. Or, the assistance of 2 or more helpers is required for the patient to complete the activity. If activity was not attempted, code reason: 7-Patient Refused. 9-Not Applicable-not attempted and the patient did not perform the activity before the current illness, exacerbation or injury. 10-Not Attempted due to Environmental Limitations-(lack of equipment, weather restraints, etc.). 88-Not Attempted due to Medical Conditions or Safety Concerns. Sit to Lying (QC): 4 Lying to Sitting/Side of Bed(Q: 4 Sit to Stand (QC): 4 Chair/Saw-vp-Apsgw Xfer(QC): 4 Toilet Transfer (QC): 4 CGA assist on ifd-kd-muokm, chair and toilet transfers. Supervision provided with bed mobility. Wheelchair Training Does the Pt Use a Wheelchair?: Yes Wheel 50 ft with 2 turns (QC): 4 Wheel 150 ft (QC): 4 Type of Wheelchair: Manual Pt propels self with LE; pt does occasionally hit corner of items/foster with edge of wheelchair. 120'x2 Exercises Supine Ex: Bridging, Short Arc Quads, Straight leg raise, Hip abd/add (BKFO) Supine Reps: 20 Seated Therapy Exercises: Long arc quads, Hamstring Curls (red theraband), Hip abd/add (red theraband) NuStep Minutes: 15 NuStep Workload: 4 Treatments LE Strengthening Assessment Current Status: Fair Progress Pt struggled to remain awake to participate in therapy; pt received constant motivation to keep working hard. PT Short Term Goals Short Term Goals Time Frame: Mar 22, 2020 Lying to sitting on side of be: 4 Sit to stand: 4 Walk 50 feet with two turns: 4 Wheel 150 feet: 5 PT Practice Or Student Teacher Goals Practice Or Student Teacher Goals PT Practice Or Student Teacher Goals Time Frame: Apr 05, 2020 Roll Left & Right (QC): 6 Sit to Lying (QC): 6 Lying-Sitting on Side/Bed(QC): 6 Sit to Stand (QC): 6 Chair/Hnd-yi-Iimjv Xfer(QC): 6 Toilet Transfer (QC): 6 Car Transfer (QC): 5 Does the Patient Walk: Yes Walk 10 feet (QC): 6 Walk 50ft with 2 Turns (QC): 6 Walk 150 ft (QC): 5 Walking 10ft on Uneven Surface: 5 1 Step (curb) (QC): 4 4 Steps (QC): 9 12 Steps (QC): 9 Picking up an Object (QC): 6 (with a glassware engraver) Does the Pt use WC or Scooter?: Yes Wheel 50 feet with 2 turns (QC: 6 Type: Manual Wheel 150 feet: 6 Type: Manual PT Plan Problem List Problem List: Activity Tolerance, Functional Strength, Safety, Balance, Gait, Transfer, Bed Mobility, ROM Treatment/Plan Treatment Plan: Continue Plan of Care Treatment Plan: Bed Mobility, Education, Functional Activity Efde, Functional Strength, Group Therapy, Gait, Safety, Therapeutic Exercise, Transfers Treatment Duration: Apr 05, 2020 Frequency: At least 5 of 7 days/Wk (IRF) Estimated Hrs Per Day: Other (pt will achieve 15hrs over 7 days) Patient and/or Family Agrees t: Yes Safety Risks/Education Patient Education: Transfer Techniques, Correct Positioning, W/C Management, Safety Issues Teaching Recipient: Patient Teaching Methods: Demonstration, Discussion Response to Teaching: Reinforcement Needed Time/GCodes Time In: 1330 Time Out: 1500 Total Billed Treatment 1 visit FA 30' EX 60' CLAU SALAZAR PT Mar 11, 2020 15:15
[2020-03-11] MEDS: SUCRALFATE 1 GM (CARAFATE) TAB PO SCH ×2 (16:11→20:08)
[2020-03-11] MEDS ORDERED: DONE10TA41 PO (17:16)
[2020-03-11] MEDS ORDERED: RT-ALBUINH IH (17:20)
[2020-03-11] MEDS ORDERED: AMLO5TAB9 PO (17:21)
[2020-03-11] MEDS ORDERED: ATOR10TA66 PO (17:22)
[2020-03-11] MEDS ORDERED: CETI10TA17 PO (17:24)
[2020-03-11] MEDS ORDERED: CHOL20003 PO ×2 (17:27→17:28)
[2020-03-11] MEDS ORDERED: CYAN100088 PO (17:31)
[2020-03-11] MEDS ORDERED: FLUT12AE4 IH (17:44)
[2020-03-11] MEDS ORDERED: RT-ALBUTEROL SULF 2.5 MG/3 ML PRE-MIX VIAL IH SCH (17:45)
[2020-03-11] MEDS ORDERED: METHOTREXATE 2.5 MG TAB PO SCH (17:45)
[2020-03-11] MEDS ORDERED: FOLI0.8T PO (17:46)
[2020-03-11] MEDS ORDERED: METF-397 PO (17:48)
[2020-03-11] MEDS ORDERED: METH2.5T PO (17:50)
[2020-03-11] MEDS ORDERED: MTP100TCR PO (17:51)
[2020-03-11] MEDS ORDERED: OLAN20TA34 PO (17:53)
[2020-03-11] MEDS ORDERED: OLAN10TA19 PO (17:57)
[2020-03-11] MEDS ORDERED: SUCR1TAB PO (17:59)
[2020-03-11] MEDS ORDERED: OMEP20TA7 PO (18:02)
[2020-03-11 18:11] VITALS: BP 125/56
[2020-03-11] MEDS: ADVAIR HFA 115/21 MCG INHALER 8 GM IH SCH (19:12)
[2020-03-11] MEDS: DONEPEZIL 10 MG (ARICEPT) TAB PO SCH (20:08)
[2020-03-11] MEDS: OLANZapine 5 MG (ZyPREXA) TAB PO SCH (20:08)
[2020-03-11] MEDS ORDERED: NON-FORMULARY MEDICATION 1 EA EA (Olanzapine 10 MG) PO SCH (21:00)
[2020-03-11] MEDS ORDERED: meTOprolol SUCCINATE 100 MG (TOPROL XL) TAB PO SCH (21:00)
[2020-03-11] MEDS ORDERED: NON-FORMULARY MEDICATION 1 EA EA (Olanzapine 20 MG) PO SCH (21:00)
[2020-03-12] MEDS: PIPERACILLIN/TAZOBACTAM (BULK) 4.5 GM in NS (IVPB) 100 ML IV SCH ×3 (04:38→20:17)
[2020-03-12] MEDS: CATHETER FLUSH 10 ML SYR IV SCH ×3 (04:39→20:18)
--- NOTE | 2020-03-12 05:24 | Pulmonary Progress Note ---
Subjective Time Seen by a Provider: 05:23 Subjective/Events-last exam No complications noted. Sepsis Event Evaluation Height, Weight, BMI Height: 5'7.50" Weight: 200lbs. 1.0oz. 90.864546ty; 41.13 BMI Method:Stated Exam Exam Vital Signs Date Time Temp Pulse Resp B/P (MAP) Pulse Ox O2 Delivery O2 Flow Rate FiO2 03/11/20 20:22 Nasal Cannula 4.00 03/11/20 19:12 98 Nasal Cannula 4.00 03/11/20 18:11 36.3 77 18 125/56 (79) 100 Nasal Cannula 4.00 03/11/20 09:15 179/74 (109) 96 Nasal Cannula 4.00 03/11/20 08:58 Nasal Cannula 4.00 03/11/20 08:00 79 152/68 (96) 92 Nasal Cannula 4.00 03/11/20 07:18 Nasal Cannula 4.00 I & O 03/12/20 07:00 Intake Total 1070 ml Balance 1070 ml Height & Weight Height: 5'7.50" Weight: 200lbs. 1.0oz. 90.736587jw; 41.13 BMI Method:Stated General Appearance: No Apparent Distress, WD/WN, Chronically ill HEENT: PERRL/EOMI, Normal ENT Inspection, Pharynx Normal Neck: Full Range of Motion, Normal Inspection, Non Tender, Supple, Carotid Bruit Respiratory: Chest Non Tender, Lungs Clear, Normal Breath Sounds, No Accessory Muscle Use, No Respiratory Distress, Decreased Breath Sounds Cardiovascular: Regular Rate, Rhythm, No Edema, No Gallop, No JVD, No Murmur, Normal Peripheral Pulses Capillary Refill: Less Than 3 Seconds Extremity: Normal Capillary Refill, Normal Inspection, Normal Range of Motion, Non Tender, No Calf Tenderness, No Pedal Edema Neurologic/Psychiatric: Alert, Oriented x3, No Motor/Sensory Deficits, Normal Mood/Affect Skin: Normal Color, Warm/Dry Lymphatic: No Adenopathy Results Lab Laboratory Tests 03/11/20 05:48 Assessment/Plan Assessment/Plan Acute on chronic respiratory failure -. Currently on 4 liter NC -Titrate down Obesity with OHS -BiPAP QHS and PRN Atelectasis r/o PNA -Zosyn -COVID swab negative Anemia s/p tranfusion Debilty -PT/OT MERCEDES GARZA DO Mar 12, 2020 05:24
[2020-03-12] MEDS: metFORMIN 500 MG (GLUCOPHAGE) TAB PO SCH (05:55)
[2020-03-12] MEDS: SUCRALFATE 1 GM (CARAFATE) TAB PO SCH ×4 (05:55→20:17)
[2020-03-12 06:09] VITALS: BP 141/60
[2020-03-12] MEDS: FOLIC ACID 1 MG TAB PO SCH (08:30)
[2020-03-12] MEDS: VITAMIN D3 25 MCG (1,000 UNITS) TABLET PO SCH (08:31)
[2020-03-12] MEDS: PANTOPRAZOLE 40 MG (PROTONIX) TAB PO SCH ×2 (08:31→20:18)
[2020-03-12] MEDS: SENNA W/DOCUSATE (SENOKOT S) TABLET PO SCH ×3 (08:31→20:23)
[2020-03-12] MEDS: meTOprolol SUCCINATE 100 MG (TOPROL XL) TAB PO SCH (08:31)
[2020-03-12] MEDS: CYANOCOBALAMIN 1,000 MCG (VITAMIN B-12) TABLET PO SCH (08:31)
[2020-03-12] MEDS: LORATADINE (CLARITIN) 10 MG TAB PO SCH (08:32)
[2020-03-12] MEDS: amLODIPine 5 MG (NORVASC) TAB PO SCH (08:32)
[2020-03-12] MEDS: TRIAMCINOLONE 0.1% CR (KENALOG) 15 GM TUBE TOP SCH (08:33)
[2020-03-12] MEDS: IRON SUCROSE 200 MG/10 ML (VENOFER) VIAL IV SCH (08:33)
[2020-03-12] MEDS: ONDANSETRON 4 MG/2 ML (SDV) Z0FRAN IVP PRN (08:52)
[2020-03-12] MEDS ORDERED: NON-FORMULARY MEDICATION 1 EA EA (Cholecalciferol (Vitamin D3) (Vitamin D3) 100 MCG) PO SCH (09:00)
[2020-03-12] MEDS ORDERED: NON-FORMULARY MEDICATION 1 EA EA (Cetirizine HCl 10 MG) PO SCH (09:00)
[2020-03-12] MEDS ORDERED: NON-FORMULARY MEDICATION 1 EA EA (Folic Acid 1 MG) PO SCH (09:00)
[2020-03-12] MEDS: TRIAMCINOLONE 0.1% CR (KENALOG) 80 GM TUBE TP SCH ×2 (09:24→20:19)
--- NOTE | 2020-03-12 09:47 | PM&R Progress Note ---
Subjective HPI/CC On Admission Date Seen by Provider: Mar 12, 2020 Time Seen by Provider: 10:00 Subjective/Events-last exam 03/12/20: Zofran given today for nausea PPI and Carafate maintained for gastiritis treatment Complaining about the bland diet Needs biPAP at night and prn during the day for chronic hypercapnia : EGD and colonoscopy done today showing severe gastritis but colonoscopy was normal Rapidly desaturated oxygen-paz when she doesnt wear her oxygen to 67% Maintain on 4L per minute Kenalog cream for psoriasis will be ordered Overall seems to be doing pretty well now Pt is less SOB today after a two days course in ICU maintained on BiPAP and Vapotherm and now nasal cannula Heart rate 120s, I did consult Dr. Fuentes, gave her a dose of 50mg Metoprolol Maintain on 3 liters of oxygen now Will DC catheter Home meds will be restarted today Overall much improved Will change to a regular diet Bowels not moving but she hasnt eaten much Review of Systems General: Fatigue Gastrointestinal: Nausea Objective Exam Vital Signs Vital Signs Date Time Temp Pulse Resp B/P (MAP) Pulse Ox O2 Delivery O2 Flow Rate FiO2 03/12/20 22:40 85 94 40.00 03/12/20 21:00 Nasal Cannula 03/12/20 16:00 36.4 16 127/57 (80) Capillary Refill : Less Than 3 SecondsLess Than 3 Seconds General Appearance: No Apparent Distress, WD/WN, Chronically ill HEENT: PERRL/EOMI, Normal ENT Inspection, Pharynx Normal Neck: Full Range of Motion, Normal Inspection, Non Tender, Supple, Carotid Bruit Respiratory: Chest Non Tender, Lungs Clear, Normal Breath Sounds, No Accessory Muscle Use, No Respiratory Distress, Decreased Breath Sounds Cardiovascular: Regular Rate, Rhythm, No Edema, No Gallop, No JVD, No Murmur, Normal Peripheral Pulses Gastrointestinal: Normal Bowel Sounds, No Organomegaly, No Pulsatile Mass, Non Tender, Soft Back: Normal Inspection, No CVA Tenderness, No Vertebral Tenderness Extremity: Normal Capillary Refill, Normal Inspection, Normal Range of Motion, Non Tender, No Calf Tenderness, No Pedal Edema Neurologic/Psychiatric: Alert, Oriented x3, No Motor/Sensory Deficits, Normal Mood/Affect Skin: Normal Color, Warm/Dry Lymphatic: No Adenopathy Results/Procedures Lab Laboratory Tests 03/12/20 12:43 Patient resulted labs reviewed. FIM Transfers Therapy Code Descriptions/Definitions Functional Walls Measure: 0=Not Assessed/NA 4=Minimal Assistance 1=Total Assistance 5=Supervision or Setup 2=Maximal Assistance 6=Modified Walls 3=Moderate Assistance 7=Complete IndependenceSCALE: Activities may be completed with or without assistive devices. 8-Nnwmmebbvc-rdgpmjg completes the activity by him/herself with no assistance from a helper. 5-Set-up or Clean-up Assistance-helper sets up or cleans up; patient completes activity. [place] assists only prior to or following the activity. 4-Supervision or Touching Assistance-helper provides verbal cues and/or touching/steadying and/or contact guard assistance as patient completes activity. Assistance may be provided throughout the activity or intermittently. 3-Partial/Moderate Assistance-helper does LESS THAN HALF the effort. [place] lifts, holds or supports trunk or limbs, but provides less than half the effort. 2-Substantial/Maximal Assistance-helper does MORE THAN HALF the effort. [place] lifts or holds trunk or limbs and provides more than half the effort. 2-Fodyvmdzx-qsfjlq does ALL the effort. Patient does none of the effort to complete the activity. Or, the assistance of 2 or more helpers is required for the patient to complete the activity. If activity was not attempted, code reason: 7-Patient Refused. 9-Not Applicable-not attempted and the patient did not perform the activity before the current illness, exacerbation or injury. 10-Not Attempted due to Environmental Limitations-(lack of equipment, weather restraints, etc.). 88-Not Attempted due to Medical Conditions or Safety Concerns. Roll Left to Right (QC): 6 Sit to Lying (QC): 4 Sit to Stand (QC): 4 Chair/Suc-ct-Wbmpj Xfer(QC): 4 Car Transfer (QC): 88 (unable to tolerate this this date. ) Gait Training Does the Patient Walk?: Yes Distance: 15' x2, 30' Walk 10 feet (QC): 4 Walk 50 ft with 2 Turns(QC): 88 (unable to walk further than 25 ft before needing to sit and rest. ) Walk 150 ft (QC): 88 Walking 10ft/uneven surface-QC: 88 Gait Assistive Device: FWW Wheelchair Training Does the Pt Use a Wheelchair?: Yes Distance: 50 ft Wheel 50 ft with 2 turns (QC): 4 Wheel 150 ft (QC): 4 Type of Wheelchair: Manual Stair Training 1 Step (curb) (QC): 7 4 Steps (QC): 9 12 Steps (QC): 9 Balance Picking up an Object (QC): 88 ADL-Treatment Eating (QC): 6 (Pt indicates no difficulty.) Oral Hygiene (QC): 5 Shower/Bathe Self (QC): 4 (Sponge bath, CGA in stand at FWW) Upper Body Dressing (QC): 4 (SBA don/doff slab puller shirt) Lower Body Dressing (QC): 4 (CGA in stand at FWW) On/Off Footwear (QC): 4 (SBA, pt able to doff/sondra gripper socks.) Toileting Hygiene (QC): 4 (CGA, pt able to manage clothing and perform hy giene.) Toilet Transfer (QC): 4 (CGA on/off BSC) Assessment/Plan Assessment and Plan Assess & Plan/Chief Complaint Assessment: Severe debility due to acute on chronic respiratory failure h/o trach 05/29 h/o PEG tube 05/29 Mental illness precluding fast recovery Former smoker COPD OHS Dementia Plan: Monitor closely Inpatient rehabilitation protocol with therapies Dr Berman consultation appreciated 03/10/20: Restart IRF protocol Transfuse 1 unit of blood Consult Dr Evans may need scope, maintain PPI in meantime Appreciate Dr Fuentes and Dr Berman 03/11/20: Appreciate EGD and Colonoscopy from Dr Evans Gastritis treatment with PPI and Carafate 03/12/20: Bipap at night and prn during day when napping Monitor nausea PPI and Carafate (1) Debility (2) Acute on chronic respiratory failure Status: Chronic (3) Morbid obesity Status: Acute (4) Generalized weakness Status: Acute (5) Bipolar disorder Status: Chronic (6) Dementia Status: Acute (7) Psoriasis Status: Chronic (8) Hypertension Status: Chronic (9) Lupus Status: Chronic (10) Oxygen dependent Status: Chronic (11) Obesity hypoventilation syndrome (12) Chronic mental illness Status: Chronic (13) Acute on chronic respiratory failure with hypoxia and hypercapnia Status: Acute SAMANTHA COLLIER DO Mar 12, 2020 09:47
--- NOTE | 2020-03-12 10:04 | Occupational Ther Daily Note ---
OT Current Status-Daily Note Subjective Pt seen in recliner chair, denies pain. Pt alert. Pt agrees to tx. Pt lethargic through session, all tasks requiring an increase of time. Mental Status/Objective Attachments: Oxygen (4L) ADL-Treatment Therapy Code Descriptions/Definitions Functional [place] Measure: 0=Not Assessed/NA 4=Minimal Assistance 1=Total Assistance 5=Supervision or Setup 2=Maximal Assistance 6=Modified [place] 3=Moderate Assistance 7=Complete IndependenceSCALE: Activities may be completed with or without assistive devices. 6-Iuonrwbiiw-uugmvik completes the activity by him/herself with no assistance from a helper. 5-Set-up or Clean-up Assistance-helper sets up or cleans up; patient completes activity. [place] assists only prior to or following the activity. 4-Supervision or Touching Assistance-helper provides verbal cues and/or touching/steadying and/or contact guard assistance as patient completes activity. Assistance may be provided throughout the activity or intermittently. 3-Partial/Moderate Assistance-helper does LESS THAN HALF the effort. [place] lifts, holds or supports trunk or limbs, but provides less than half the effort. 2-Substantial/Maximal Assistance-helper does MORE THAN HALF the effort. [place] lifts or holds trunk or limbs and provides more than half the effort. 1-Sngcgpnjd-losxos does ALL the effort. Patient does none of the effort to complete the activity. Or, the assistance of 2 or more helpers is required for the patient to complete the activity. If activity was not attempted, code reason: 7-Patient Refused. 9-Not Applicable-not attempted and the patient did not perform the activity before the current illness, exacerbation or injury. 10-Not Attempted due to Environmental Limitations-(lack of equipment, weather restraints, etc.). 88-Not Attempted due to Medical Conditions or Safety Concerns. Oral Hygiene (QC): 6 (IND after supplies provided) Bathing Location: L Arm, R Arm, L Upper Leg, R Upper Leg, L Lower Leg (including foot), R Lower Leg (including foot), Chest, Abdomen, Perineal Area Shower/Bathe Self (QC): 3 (min A for bottom thoroughness and hair washing (due to limited shoulder flexion AROM). Pt able to complete all other tasks with SBA/ set up) Upper Body Dressing (QC): 4 (gathers clothing when handed bag. Pt unable to flex shoulders to bring shirt overhead. Pt is educated on use of tabletop to place elbows for assisted ROM for shoulders. At tabletop level, pt able to don shirt with increased time/ SBA.) Lower Body Dressing (QC): 4 (SBA all tasks) On/Off Footwear: 5 (s/u- pt given all items to be completed with increased time. Pt dons socks then doffs stating she does not wear shoes with socks. Dons shoes.) Toileting Hygiene (QC): 3 (s/u for gathering supplies, pt then able to reach bottom in sit, tabatha area in stance, then requires min A for bottom t horoughness.) Toilet Transfer (QC): 4 (SBA ambulation with walker and CGA sit to stand.) Other Treatment Pt agrees to sponge bath/ dressing tasks, completing as outlined above. Pt requires min rest breaks due to SOB, use of 4L 02 through session. Pt completes all tasks with increased time. Pt has limited AROM shoulder flexion, decreasing ability to wash/ brush hair and don shirt overhead. Pt requires adaptation cues/ min A for this assist. Pt sit to stands with CGA, ambulates for urination task ~10 feet to BSC with control/ no LOB. Pt stands at walker level to complete tabatha/ bottom hygiene with no LOB. Pt ambulates back to chair, oral care and shoe donning completed in chair. PROM completed to L shoulder into scaption to 90*, pt's shoulder begins twitching; upon palpation, pec fasciculation. Pt states this occurs every time she is passively ranged bilaterally. All needs met, call light in reach. Education OT Patient Education: Correct positioning, Modified ADL techniques, Purpose of tx/functional activities Teaching Recipient: Patient Teaching Methods: Demonstration, Discussion Response to Teaching: Verbalize Understanding, Return Demonstration, Reinforcement Needed OT Short Term Goals Short Term Goals Time Frame: Mar 19, 2020 Shower/bathe self: 4 Lower body dressin Putting on/taking off footwear: 4 OT Farmworker Fur Goals Assisted Goals Time Frame: Apr 02, 2020 Eating (QC): 6 Oral Hygiene (QC): 6 Toileting Hygiene (QC): 6 Shower/Bathe Self (QC): 6 Upper Body Dressing (QC): 6 Lower Body Dressing (QC): 6 On/Off Footwear (QC): 6 Additional Goals: 1-Demonstrate ADL Tasks, 2-Verbalize Understanding, 3- ImproveStrength/Fede 1=Demonstrate adherence to instructed precautions during ADL tasks. 2=Patient will verbalize/demonstrate understanding of assistive devices/modifications for ADL. 3=Patient will improve strength/tolerance for activity to enable patient to perform ADL's. OT Education/Plan Problem List/Assessment Assessment: Decreased Activ Tolerance, Decreased UE Strength Discharge Recommendations Plan/Recommendations: Continue POC Therapy Discharge Recommendati: Home & Family, Post Acute OT Treatment Plan/Plan of Care Treatment,Training & Education: Yes Patient would benefit from OT for education, treatment and training to promote independence in ADL's, mobility, safety and/or upper extremity function for ADL's. Plan of Care: ADL Retraining, Functional Mobility, Group Exercise/Act as Ind, UE Funct Exercise/Act, W/C Management Training Treatment Duration: Apr 02, 2020 Frequency: Modified Program (IRF) (23/12) Estimated Hrs Per Day: .25 hour per day Agreement: Yes Rehab Potential: Fair Time/GCodes Start Time: 09:00 Stop Time: 10:00 Total Time Billed (hr/min): 60 Billed Treatment Time 1, ADL 4 (60) MARGIE GUAJARDO OTR Mar 12, 2020 10:04
[2020-03-12] MEDS: HYDROcodone/APAP 5 MG/325 MG (LORTAB) TAB PO PRN (10:38)
--- NOTE | 2020-03-12 10:45 | Progress Note - Cardiology ---
Cardiology SOAP Progress Note Subjective: Sitting up in recliner at the bedside. No c/o CP or palpitations. Chronic exertional dyspnea unchanged. C/O occ lightheadness when ambulating, resolves. Objective: I&O/Vital Signs 03/15/20 03/15/20 03/16/20 03/16/20 20:29 21:12 02:15 06:42 Temp 36.2 Pulse 81 82 Resp 20 B/P (MAP) 176/74 (108) Pulse Ox 96 92 95 O2 Delivery Nasal Cannula Nasal Cannula Nasal Cannula O2 Flow Rate 3.50 40.00 3.00 3.50 03/16/20 06:44 Pulse Ox 92 O2 Delivery Nasal Cannula O2 Flow Rate 3.00 03/16/20 00:00 Intake Total 1200 ml Balance 1200 ml Weight (Pounds): 200 Weight (Ounces): 1.0 Weight (Calculated Kilograms): [id number] Constitutional: AAO x 3, well-developed, well-nourished Respiratory: No accessory muscle use, No respiratory distress; chest expansion is symmetric, chest is bilaterally symmetric, lungs clear to auscultation Cardiovascular: regular rate-rhythm; No JVD; S1 and S2 Gastrointestional: No tender; soft, round, audible bowel sounds Extremities: no lower extremity edema bilateral Neurologic/Psychiatric: grossly intact (moves all extremities) Skin: other (psoriatic lesions to arms/legs bilat (chronic)) Results/Procedures: Labs Laboratory Tests 03/15/20 09:30: Lactic Acid Level 1.46 03/15/20 11:35: Blood Gas Puncture Site LT RAD, Blood Gas Patient Temperature 36.4, Arterial Blood pH 7.35L, Arterial Blood Partial Pressure CO2 66H, Arterial Blood Partial Pressure O2 79, Arterial Blood HCO3 36H, Arterial Blood Total CO2 37.9H, Arterial Blood Oxygen Saturation 96, Arterial Blood Base Excess 9.9H, Merlin Test YES-POS, Blood Gas Ventilator Setting NO, Blood Gas Inspired Oxygen 3.5 L 03/15/20 16:20: Glucometer 142H 03/16/20 06:10: Glucometer 110 A/P: Assessment: Pneumonia - management per pulmonary services Anemia secondary to GI bleed - management per medical/surgical services - improving S/P endoscopies on Mar 11, [address] Evans - GERD, severe gastritis and hemorrhoids HTN HLP COPD/DUDLEY, followed by Dr. Berman History of diverticulitis with colon resection in the past GERD Morbid obsesity Lupus Psoriasis Plan: HR and BP improved with addition of BB Continue current regimen Management of anemia per medical/surgical services Monitor lab Replace electrolytes as indicated ADRIAN ESCOBAR Mar 12, 2020 10:45
[2020-03-12] MEDS: RT-ALBUTEROL/IPRATROPIUM 3 ML (DUONEB) VIAL INH SCH ×3 (10:46→19:26)
[2020-03-12] MEDS: ADVAIR HFA 115/21 MCG INHALER 8 GM IH SCH ×2 (10:47→19:30)
--- NOTE | 2020-03-12 10:53 | Progress Note ---
ANN DOTY,MED STUDENT 03/12/20 1053: Progress Note Progress note: 03/12/20 Breathing better this morning, denies SOB On 4L NC Denies n/v/abdominal pain EGD 03/11 revealed reflux esophagitis and severe gastritis Started on Protonix and Carafate Plan: Continue with PT and OT [place] diet as tolerated Continue Protonix and Carafate ROSALIND COLLIER DO 03/12/20 1636: Supervisory-Addendum Brief Verification & Attestation Participated in pt care: history, MDM, physical Personally performed: exam, history, MDM, supervision of care Care discussed with: Medical Student Procedures: n/a Results interpretation: Verified all documentation Verification and Attestation of Medical Student E/M Service A medical student performed and documented this service in my presence. I reviewed and verified all information documented by the medical student and made modifications to such information, when appropriate. I personally performed the physical exam and medical decision making. Rosalind Collier, Mar 12, 2020,16:36 ANN DOTY,MED STUDENT Mar 12, 2020 10:53 ROSALIND COLLIER DO Mar 12, 2020 16:36
[2020-03-12] MEDS: ENOXAPARIN 40 MG/0.4 ML (LOVENOX) SYR SC SCH ×2 (11:10→23:28)
--- NOTE | 2020-03-12 11:33 | Speech Therapy Daily Note ---
Speech Daily Progress Note Subjective Date Seen by Provider: Mar 12, 2020 Time Seen by Provider: 00:30 Patient was sitting up in recliner receiving her meds by nursing when I entered her room. Within a few minutes the patient began coughing and vomited up her meds and water. Objective Patient completed a series of questions related to recent health events and daily routine with 75% given moderate cues and/or repetitions. Assessment Assessment Current Status: Fair Progress Treatment Plan Continue Plan of Care Speech Short Term Goals Short Term Goals Short Term Goals 1) The patient will complete memory tasks related to her daily needs at 80% or greater with minimal cues. 2) The patient will complete safety awareness tasks related to her daily needs at 80% or greater with minimal cues. 3) The patient will complete problem solving tasks related to her daily needs at 80% or greater with minimal cues. Speech Slate Handler Goals Slate Handler Goals The patient will improve her cognitive communication abilities to be able to complete daily tasks with minimal assist. Speech-Plan Patient/Family Goals Patient/Family Goals: Patient plans on returning to her home upon discharge. Treatment Plan Speech Therapy Treatment Plan: Continue Plan of Care Treatment Duration: Mar 11, 2020 Frequency: 4 times per week (Patient will receive ST 4-5x per week) Estimated Hrs Per Day: Other Rehab Potential: Fair Barriers to Learning: Patient's recent health issues, mild cognitive deficits Pt/Family Agrees to Plan: Yes Safety Risks/Education Teaching Recipient: Patient Teaching Methods: Demonstration, Discussion Response to Teaching: Verbalize Understanding, Return Demonstration Education Topics Provided: Safety within her room and communication of wants/needs Time Speech Therapy Time In: 08:30 Speech Therapy Time Out: 09:00 Total Billed Time: 30 Billed Treatment Time 1, MAGUE Rubin Mar 12, 2020 11:33
--- NOTE | 2020-03-12 11:39 | Physical Therapy Daily Note ---
PT Daily Note-Current Subjective Pt. up in recliner, groggy, eyes drifting closed frequently during Rx, Pt. explains she lives alone , has some assist, has fallen involving extended O2 tubing several times at home. States she frequently uses w/c vs FWW to get around her home Pain Numeric Pain Scale: 5-Moderate Pain Location: Left (bilat knees and hips ) Location Body Site: Knee (and hips bilat) Pain Description: Throbbing Comment: gris with TRF trianing Mental Status Patient Orientation: Person, Place Attachments: Oxygen (3.5 L), Other-See Comments (mask out of room) Transfers SCALE: Activities may be completed with or without assistive devices. 8-Czwxpxxiet-fhfzuvy completes the activity by him/herself with no assistance from a helper. 5-Set-up or Clean-up Assistance-helper sets up or cleans up; patient completes activity. [place] assists only prior to or following the activity. 4-Supervision or Touching Assistance-helper provides verbal cues and/or touching/steadying and/or contact guard assistance as patient completes activity. Assistance may be provided throughout the activity or intermittently. 3-Partial/Moderate Assistance-helper does LESS THAN HALF the effort. [place] lifts, holds or supports trunk or limbs, but provides less than half the effort. 2-Substantial/Maximal Assistance-helper does MORE THAN HALF the effort. [place] lifts or holds trunk or limbs and provides more than half the effort. 9-Rnreqhcgn-inhnjz does ALL the effort. Patient does none of the effort to complete the activity. Or, the assistance of 2 or more helpers is required for the patient to complete the activity. If activity was not attempted, code reason: 7-Patient Refused. 9-Not Applicable-not attempted and the patient did not perform the activity before the current illness, exacerbation or injury. 10-Not Attempted due to Environmental Limitations-(lack of equipment, weather restraints, etc.). 88-Not Attempted due to Medical Conditions or Safety Concerns. Sit to Stand (QC): 6 Chair/Xeh-wy-Npnoe Xfer(QC): 5 chair to w/c TRFs 5-6 trials, with pt. c/o this increases joint pain Gait Training Does the Patient Walk?: Yes Walk 10 feet (QC): 4 Gait Persons Needed: 1 Gait Assistive Device: FWW pt. c/o increased joint pain as well as dizziness and SOB., rest breaks given Wheelchair Training Does the Pt Use a Wheelchair?: Yes Wheel 50 ft with 2 turns (QC): 6 Wheel 150 ft (QC): 6 Type of Wheelchair: Manual assist for O2 required, pt uses LEs to manage w/c, does very well Exercises Seated Therapy Exercises: Ankle pumps, Sit to stand, Long arc quads, Hip flexion, Hip abd/add Seated Reps: 10 (x2) Treatments O2 sats taken several times during Rx, sats starting at 98%, decreasing to 87% with TRFs, O2 set at 3.5 L, dyspnea noted. Assessment Current Status: Fair Progress unmotivated, expresses that she sees no need for this Rx, seems as though she will fall asleep, nurse brings pain meds at pt request, also RT gives breathing Rx which seems to help with dyspnea PT Short Term Goals Short Term Goals Time Frame: Mar 22, 2020 Lying to sitting on side of be: 4 Sit to stand: 4 Walk 50 feet with two turns: 4 Wheel 150 feet: 5 PT Custodial Goals Guzzler Builder Goals PT Custodial Goals Time Frame: Apr 05, 2020 Roll Left & Right (QC): 6 Sit to Lying (QC): 6 Lying-Sitting on Side/Bed(QC): 6 Sit to Stand (QC): 6 Chair/Bue-mz-Ykevm Xfer(QC): 6 Toilet Transfer (QC): 6 Car Transfer (QC): 5 Does the Patient Walk: Yes Walk 10 feet (QC): 6 Walk 50ft with 2 Turns (QC): 6 Walk 150 ft (QC): 5 Walking 10ft on Uneven Surface: 5 1 Step (curb) (QC): 4 4 Steps (QC): 9 12 Steps (QC): 9 Picking up an Object (QC): 6 (with a inspector filters) Does the Pt use WC or Scooter?: Yes Wheel 50 feet with 2 turns (QC: 6 Type: Manual Wheel 150 feet: 6 Type: Manual PT Plan Treatment/Plan Treatment Plan: Continue Plan of Care Treatment Plan: Bed Mobility, Education, Functional Activity Fede, Functional Strength, Group Therapy, Gait, Safety, Therapeutic Exercise, Transfers Treatment Duration: Apr 05, 2020 Frequency: At least 5 of 7 days/Wk (IRF) Estimated Hrs Per Day: Other (pt will achieve 15hrs over 7 days) Patient and/or Family Agrees t: Yes Safety Risks/Education Patient Education: Gait Training, Transfer Techniques, Correct Positioning, W/C Management, Disease Process, Safety Issues Teaching Recipient: Patient Teaching Methods: Demonstration, Discussion Response to Teaching: Verbalize Understanding, Return Demonstration, Reinforcement Needed discussed safety and use of ext tube O2 as well as function and TRFs Time/GCodes Time In: 1000 Time Out: 1100 Total Billed Treatment Time: 60 Total Billed Treatment 1,EX20m,FA25m,WC15m LYNN MARTINEZ CAMPAIGN MARKETING MANAGER Mar 12, 2020 11:39
--- NOTE | 2020-03-12 12:17 | NUR ---
SBA to toilet & back to chair w FWW. Pt sent back her lunch tray because she didn't like the food. Pt is on the phone now placing a different order for lunch, grilled cheese & tomato soup.
--- NOTE | 2020-03-12 12:23 | NUR ---
CM/SS ADMISSION Patient was admitted to ARU from [facility] 03/08/20 for severe debility due to acute on chronic respiratory failure. Additional comorbidities are, in part, morbid obesity, lupus, bipolar disorder, dementia, psoriasis, HTN, COPD, oxygen dependence. Patient had lengthy [facility], [facility] requiring trach and PEG tube, since removed. Patient resides alone in [address] apartments in [place] and intends to return there at discharge. There is some question as to whether a Physical Disability Waiver application for in-home services has been completed through [facility] on [facility]ging. Patient believes it has been, pattern chart writer is attempting to confirm. This program has a wait list of at least one year, however, so not a suitable resource for immediate discharge plan. PCP: Dr. Garrett Ward DO, [place] [facility]: [facility] both [place] INSURANCE: Medicare, [email or web address] DME: Patient indicates she has FWW, home 02 from [facility] Home Medical. Therapy team to assess for current assistive device recommendations relative to home performance and safety. BARRIERS TO DISCHARGE PLANNING: Patient notably drowsy during interview, unable to maintain meaningful conversation. Patient has history of longterm placements [facility] and [place], she recently refused to be placed at acute care discharge 02/11/20. Complexity of the combination of diagnoses relative to physical/mental performance and ability to maintain independently at home are standout barriers. CONTACTS: Timi Krishnan, Daughter Bigg, [place] [phone] Moi SalmeronIndyyesenia, Son [place], [place] [phone] These are patient's only two children. Patient understands the process and purpose of the weekly patient care conference and that her first review will be Tuesday, March 17, 2020.
[2020-03-12 12:50] LABS: BASOPHILS # (AUTO) 0.1 10^3/uL (0.0-0.1); BASOPHILS % (AUTO) 0 % (0-10); EOSINOPHILS # (AUTO) 0.8 10^3/uL (0.0-0.3); EOSINOPHILS % (AUTO) 6 % (0-10); HEMATOCRIT 35 % (35-52); HEMOGLOBIN 9.3 g/dL (11.5-16.0); LYMPHOCYTES # (AUTO) 2.2 10^3/uL (1.0-4.0); LYMPHOCYTES % (AUTO) 17 % (12-44); MEAN CORPUSCULAR HEMOGLOBIN 23 pg (25-34); MEAN CORPUSCULAR HGB CONC 26 g/dL (32-36); MEAN CORPUSCULAR VOLUME 88 fL (80-99); MEAN PLATELET VOLUME 9.9 fL (9.0-12.2); MONOCYTES % (AUTO) 8 % (0-12); NEUTROPHILS % (AUTO) 68 % (42-75); PLATELET COUNT 401 10^3/uL (130-400); WHITE BLOOD COUNT 13.2 10^3/uL (4.3-11.0)
--- NOTE | 2020-03-12 12:53 | Occupational Ther Daily Note ---
OT Current Status-Daily Note Subjective Pt seated in recliner, agreeable to OT tx. Nurse present stating pt's blood sugar at 78, OT assisted pt with feeding. ADL-Treatment Therapy Code Descriptions/Definitions Functional [place] Measure: 0=Not Assessed/NA 4=Minimal Assistance 1=Total Assistance 5=Supervision or Setup 2=Maximal Assistance 6=Modified [place] 3=Moderate Assistance 7=Complete IndependenceSCALE: Activities may be completed with or without assistive devices. 3-Mwqaxmfqbx-xfgglrh completes the activity by him/herself with no assistance from a helper. 5-Set-up or Clean-up Assistance-helper sets up or cleans up; patient completes activity. [place] assists only prior to or following the activity. 4-Supervision or Touching Assistance-helper provides verbal cues and/or touching/steadying and/or contact guard assistance as patient completes activit y. Assistance may be provided throughout the activity or intermittently. 3-Partial/Moderate Assistance-helper does LESS THAN HALF the effort. [place] lifts, holds or supports trunk or limbs, but provides less than half the effort. 2-Substantial/Maximal Assistance-helper does MORE THAN HALF the effort. [place] lifts or holds trunk or limbs and provides more than half the effort. 6-Ddkironbo-coecim does ALL the effort. Patient does none of the effort to complete the activity. Or, the assistance of 2 or more helpers is required for the patient to complete the activity. If activity was not attempted, code reason: 7-Patient Refused. 9-Not Applicable-not attempted and the patient did not perform the activity before the current illness, exacerbation or injury. 10-Not Attempted due to Environmental Limitations-(lack of equipment, weather restraints, etc.). 88-Not Attempted due to Medical Conditions or Safety Concerns. Eating (QC): 3 Other Treatment Pt seated in recliner, nurse states pt's blood sugar is low, providing pt with food/drinks to bring up her blood sugar level. Pt required assistance opening cheese/crackers, as well as assistance opening drink containers. While pt brought apple juice to her mouth, pt's hand shaking causing her to spill her drink. Pt required min A with stabilization of food/drinks as she brought items to her mouth. Pt's blood sugar checked again after ~10 mins but remained low at 76. Pt continued to eat/drink with assistance as needed. OT provided pt with red assistant store manager trainee sponge, educating pt on performing assistant store manager trainee squeezes a few times throughout the day, pt verbalized understanding. Pt did not perform any exercises due to low blood sugar and pt eating food. Post OT tx, pt seated in recliner, call light in reach and all needs met. Nurse present. Education OT Patient Education: Correct positioning, Energy conservation, Modified ADL techniques, Progress toward Goal/Update tx plan, Purpose of tx/functional activities Teaching Recipient: Patient Teaching Methods: Discussion Response to Teaching: Verbalize Understanding OT Short Term Goals Short Term Goals Time Frame: Mar 19, 2020 Shower/bathe self: 4 Lower body dressin Putting on/taking off footwear: 4 OT Sql Dba Goals Sql Dba Goals Time Frame: Apr 02, 2020 Eating (QC): 6 Oral Hygiene (QC): 6 Toileting Hygiene (QC): 6 Shower/Bathe Self (QC): 6 Upper Body Dressing (QC): 6 Lower Body Dressing (QC): 6 On/Off Footwear (QC): 6 Additional Goals: 1-Demonstrate ADL Tasks, 2-Verbalize Understanding, 3- ImproveStrength/Fede 1=Demonstrate adherence to instructed precautions during ADL tasks. 2=Patient will verbalize/demonstrate understanding of assistive devices/modifications for ADL. 3=Patient will improve strength/tolerance for activity to enable patient to perform ADL's. OT Education/Plan Problem List/Assessment Assessment: Decreased Activ Tolerance, Decreased UE Strength, Impaired I ADL's, Impaired Self-Care Skills Discharge Recommendations Plan/Recommendations: Continue POC Treatment Plan/Plan of Care Patient would benefit from OT for education, treatment and training to promote independence in ADL's, mobility, safety and/or upper extremity function for ADL's. Plan of Care: ADL Retraining, Functional Mobility, Group Exercise/Act as Ind, UE Funct Exercise/Act, W/C Management Training Treatment Duration: Apr 02, 2020 Frequency: Modified Program (IRF) (23/12) Estimated Hrs Per Day: .25 hour per day Agreement: Yes Rehab Potential: Fair Time/GCodes Start Time: 11:10 Stop Time: 11:40 Total Time Billed (hr/min): 30 Billed Treatment Time 1, ADL 2 GAMA DIEGO OT Mar 12, 2020 12:53
[2020-03-12 13:06] LABS: ALBUMIN 3.6 GM/DL (3.2-4.5); POTASSIUM 4.6 MMOL/L (3.6-5.0)
[2020-03-12 13:07] LABS: CALCIUM 9.1 MG/DL (8.5-10.1)
[2020-03-12 13:09] LABS: TOTAL PROTEIN 6.4 GM/DL (6.4-8.2)
[2020-03-12 13:10] LABS: BILIRUBIN,TOTAL 0.2 MG/DL (0.1-1.0)
--- NOTE | 2020-03-12 13:20 | Physical Therapy Daily Note ---
PT Daily Note-Current Subjective Pt.up in recliner, wants to lay down for a nap after Rx. States she didnt enjoy her lunch. "I dont know what they were so worried about ,78 isnt a low blood sugar to me" Pain Location: No Pain Reported Mental Status Patient Orientation: Person, Place, Time, Situation Attachments: IV Transfers SCALE: Activities may be completed with or without assistive devices. 1-Zyfyqulxey-vjahnkj completes the activity by him/herself with no assistance from a helper. 5-Set-up or Clean-up Assistance-helper sets up or cleans up; patient completes activity. [place] assists only prior to or following the activity. 4-Supervision or Touching Assistance-helper provides verbal cues and/or touching/steadying and/or contact guard assistance as patient completes activity. Assistance may be provided throughout the activity or intermittently. 3-Partial/Moderate Assistance-helper does LESS THAN HALF the effort. [place] lifts, holds or supports trunk or limbs, but provides less than half the effort. 2-Substantial/Maximal Assistance-helper does MORE THAN HALF the effort. [place] lifts or holds trunk or limbs and provides more than half the effort. 6-Merdymviv-xlgwgg does ALL the effort. Patient does none of the effort to complete the activity. Or, the assistance of 2 or more helpers is required for the patient to complete the activity. If activity was not attempted, code reason: 7-Patient Refused. 9-Not Applicable-not attempted and the patient did not perform the activity before the current illness, exacerbation or injury. 10-Not Attempted due to Environmental Limitations-(lack of equipment, weather restraints, etc.). 88-Not Attempted due to Medical Conditions or Safety Concerns. sit to stands x4 all SBA, sit to supine Mod I Gait Training Gait Assistive Device: FWW 12ft CGA slow, FWW, c/o fatigue Exercises Supine Ex: Bridging, Ankle pumps, Quad Set, Heel Slides, Scooting, Straight leg raise, Hip abd/add Supine Reps: 15 Assessment Current Status: Good Progress pt. is negative in dialogue,critical and self limiting. Left in bed with warm blanket as requested, guy at hand PT Short Term Goals Short Term Goals Time Frame: Mar 22, 2020 Lying to sitting on side of be: 4 Sit to stand: 4 Walk 50 feet with two turns: 4 Wheel 150 feet: 5 PT Assisted Goals Assisted Goals PT Assisted Goals Time Frame: Apr 05, 2020 Roll Left & Right (QC): 6 Sit to Lying (QC): 6 Lying-Sitting on Side/Bed(QC): 6 Sit to Stand (QC): 6 Chair/Nki-nt-Qecvb Xfer(QC): 6 Toilet Transfer (QC): 6 Car Transfer (QC): 5 Does the Patient Walk: Yes Walk 10 feet (QC): 6 Walk 50ft with 2 Turns (QC): 6 Walk 150 ft (QC): 5 Walking 10ft on Uneven Surface: 5 1 Step (curb) (QC): 4 4 Steps (QC): 9 12 Steps (QC): 9 Picking up an Object (QC): 6 (with a brewery pumper) Does the Pt use WC or Scooter?: Yes Wheel 50 feet with 2 turns (QC: 6 Type: Manual Wheel 150 feet: 6 Type: Manual PT Plan Treatment/Plan Treatment Plan: Continue Plan of Care Treatment Plan: Bed Mobility, Education, Functional Activity Fede, Functional Strength, Group Therapy, Gait, Safety, Therapeutic Exercise, Transfers Treatment Duration: Apr 05, 2020 Frequency: At least 5 of 7 days/Wk (IRF) Estimated Hrs Per Day: Other (pt will achieve 15hrs over 7 days) Patient and/or Family Agrees t: Yes Safety Risks/Education Patient Education: Gait Training, Transfer Techniques Time/GCodes Time In: 1300 Time Out: 1320 Total Billed Treatment Time: 20 Total Billed Treatment 1,FA20m LYNN MARTINEZ PTA Mar 12, 2020 13:20
[2020-03-12 16:00] VITALS: BP 127/57
--- NOTE | 2020-03-12 16:06 | NUR ---
"RD ASSESSMENT PMHx: COPD; CAD; hypercholesterolemia; HTN; dementia; chronic UTI; GERD; DM PT INTERACTION: Pt was awake and pleasant during nutrition follow-up. Pt states she has been eating well since last assessment. Note avg PO intake 81% x3d, per chart review. Pt states some issues with diarrhea since last assessment. Note last BM was 03/11, and pt currently on bowel regimen of senna BID, per chart review. Note pt has complained to dietary staff about dislike of current diet order. ABNORMAL NUTRITION-RELATED LAB VALUES Labs WNL at this time Est. kcal needs: 1675 kcal | 15 kcal/kg Est. Pro needs: 90 g Pro | 0.8 g Pro/kg PES STATEMENT: Given current PO intake, no nutrition diagnosis at this time (NO-1.1) INTERVENTION: Continue with current diet order of Ulcer/Peptic [place] diet. Advised pt about need for this diet at this time, and that food/nutrition services will work within her diet to provide with food she would like. Pt verbalized understanding of information provided. Will continue to follow and reassess as pt needs, intake, and status change. Radha Ferrell, MS RD LD"
[2020-03-12] MEDS: DONEPEZIL 10 MG (ARICEPT) TAB PO SCH (20:18)
[2020-03-12] MEDS: OLANZapine 5 MG (ZyPREXA) TAB PO SCH (20:18)
[2020-03-13] MEDS: PIPERACILLIN/TAZOBACTAM (BULK) 4.5 GM in NS (IVPB) 100 ML IV SCH ×3 (05:14→20:17)
[2020-03-13] MEDS: CATHETER FLUSH 10 ML SYR IV SCH ×3 (05:14→20:18)
[2020-03-13 06:00] VITALS: BP 154/74
[2020-03-13] MEDS: SUCRALFATE 1 GM (CARAFATE) TAB PO SCH ×4 (06:07→20:14)
--- NOTE | 2020-03-13 06:50 | PM&R Progress Note ---
Subjective HPI/CC On Admission Date Seen by Provider: Mar 13, 2020 Time Seen by Provider: 12:00 Subjective/Events-last exam 03/13/20: Stayed on biPAP until 299 then O2 NC No nausea reported today BM large today Participating well 03/12/20: Zofran given today for nausea PPI and Carafate maintained for gastiritis treatment Complaining about the bland diet Needs biPAP at night and prn during the day for chronic hypercapnia : EGD and colonoscopy done today showing severe gastritis but colonoscopy was normal Rapidly desaturated oxygen-paz when she doesnt wear her oxygen to 67% Maintain on 4L per minute Kenalog cream for psoriasis will be ordered Overall seems to be doing pretty well now Pt is less SOB today after a two days course in ICU maintained on BiPAP and Vapotherm and now nasal cannula Heart rate 120s, I did consult Dr. Fuentes, gave her a dose of 50mg Metoprolol Maintain on 3 liters of oxygen now Will DC catheter Home meds will be restarted today Overall much improved Will change to a regular diet Bowels not moving but she hasnt eaten much Review of Systems General: Fatigue, Malaise Pulmonary: Dyspnea Objective Exam Vital Signs Vital Signs Date Time Temp Pulse Resp B/P (MAP) Pulse Ox O2 Delivery O2 Flow Rate FiO2 03/14/20 15:47 37.0 76 22 155/70 (98) 97 Nasal Cannula 4.00 Capillary Refill : Less Than 3 SecondsLess Than 3 Seconds General Appearance: No Apparent Distress, WD/WN, Chronically ill HEENT: PERRL/EOMI, Normal ENT Inspection, Pharynx Normal Neck: Full Range of Motion, Normal Inspection, Non Tender, Supple, Carotid Bruit Respiratory: Chest Non Tender, Lungs Clear, Normal Breath Sounds, No Accessory Muscle Use, No Respiratory Distress, Decreased Breath Sounds Cardiovascular: Regular Rate, Rhythm, No Edema, No Gallop, No JVD, No Murmur, Normal Peripheral Pulses Gastrointestinal: Normal Bowel Sounds, No Organomegaly, No Pulsatile Mass, Non Tender, Soft Back: Normal Inspection, No CVA Tenderness, No Vertebral Tenderness Extremity: Normal Capillary Refill, Normal Inspection, Normal Range of Motion, Non Tender, No Calf Tenderness, No Pedal Edema Neurologic/Psychiatric: Alert, Oriented x3, No Motor/Sensory Deficits, Normal Mood/Affect Skin: Normal Color, Warm/Dry Lymphatic: No Adenopathy Results/Procedures Lab Patient resulted labs reviewed. FIM Transfers Therapy Code Descriptions/Definitions Functional [place] Measure: 0=Not Assessed/NA 4=Minimal Assistance 1=Total Assistance 5=Supervision or Setup 2=Maximal Assistance 6=Modified [place] 3=Moderate Assistance 7=Complete IndependenceSCALE: Activities may be completed with or without assistive devices. 7-Dqfpfnmyol-ewkwhip completes the activity by him/herself with no assistance from a helper. 5-Set-up or Clean-up Assistance-helper sets up or cleans up; patient completes activity. [place] assists only prior to or following the activity. 4-Supervision or Touching Assistance-helper provides verbal cues and/or touching/steadying and/or contact guard assistance as patient completes activity. Assistance may be provided throughout the activity or intermittently. 3-Partial/Moderate Assistance-helper does LESS THAN HALF the effort. [place] lifts, holds or supports trunk or limbs, but provides less than half the effort. 2-Substantial/Maximal Assistance-helper does MORE THAN HALF the effort. [place] lifts or holds trunk or limbs and provides more than half the effort. 6-Ttnmtcunc-jvmmgj does ALL the effort. Patient does none of the effort to complete the activity. Or, the assistance of 2 or more helpers is required for the patient to complete the activity. If activity was not attempted, code reason: 7-Patient Refused. 9-Not Applicable-not attempted and the patient did not perform the activity before the current illness, exacerbation or injury. 10-Not Attempted due to Environmental Limitations-(lack of equipment, weather restraints, etc.). 88-Not Attempted due to Medical Conditions or Safety Concerns. Roll Left to Right (QC): 6 Sit to Lying (QC): 4 Sit to Stand (QC): 6 Chair/Jxi-qh-Pnqcp Xfer(QC): 5 Car Transfer (QC): 88 (unable to tolerate this this date. ) Gait Training Does the Patient Walk?: Yes Distance: 15' x2, 30' Walk 10 feet (QC): 4 Walk 50 ft with 2 Turns(QC): 88 (unable to walk further than 25 ft before needing to sit and rest. ) Walk 150 ft (QC): 88 Walking 10ft/uneven surface-QC: 88 Gait Persons Needed: 1 Gait Assistive Device: FWW Wheelchair Training Does the Pt Use a Wheelchair?: Yes Distance: 50 ft Wheel 50 ft with 2 turns (QC): 6 Wheel 150 ft (QC): 6 Type of Wheelchair: Manual Stair Training 1 Step (curb) (QC): 7 4 Steps (QC): 9 12 Steps (QC): 9 Balance Picking up an Object (QC): 88 ADL-Treatment Eating (QC): 3 Oral Hygiene (QC): 6 (IND after supplies provided) Bathing Location: L Arm, R Arm, L Upper Leg, R Upper Leg, L Lower Leg (including foot), R Lower Leg (including foot), Chest, Abdomen, Perineal Area Shower/Bathe Self (QC): 3 (min A for bottom thoroughness and hair washing (due to limited shoulder flexion AROM). Pt able to complete all other tasks with SBA/ set up) Upper Body Dressing (QC): 4 (gathers clothing when handed bag. Pt unable to flex shoulders to bring shirt overhead. Pt is educated on use of tabletop to place elbows for assisted ROM for shoulders. At tabletop level, pt able to don shirt with increased time/ SBA.) Lower Body Dressing (QC): 4 (SBA all tasks) On/Off Footwear (QC): 5 (s/u- pt given all items to be completed with increased time. Pt dons socks then doffs stating she does not wear shoes with socks. Dons shoes.) Toileting Hygiene (QC): 3 (s/u for gathering supplies, pt then able to reach bottom in sit, tabatha area in stance, then requires min A for bottom thoroughness.) Toilet Transfer (QC): 4 (SBA ambulation with walker and CGA sit to stand.) Assessment/Plan Assessment and Plan Assess & Plan/Chief Complaint Assessment: Severe debility due to acute on chronic respiratory failure h/o trach 05/29 h/o PEG tube 05/29 Mental illness precluding fast recovery Former smoker COPD OHS Dementia Plan: Monitor closely Inpatient rehabilitation protocol with therapies Dr Berman consultation appreciated 03/10/20: Restart IRF protocol Transfuse 1 unit of blood Consult Dr Evans may need scope, maintain PPI in meantime Appreciate Dr Fuentes and Dr Berman 03/11/20: Appreciate EGD and Colonoscopy from Dr Evans Gastritis treatment with PPI and Carafate 03/12/20: Bipap at night and prn during day when napping Monitor nausea PPI and Carafate 03/13/20: BM regimen Pain control BiPAP as much as possible (1) Debility (2) Acute on chronic respiratory failure Status: Chronic (3) Morbid obesity Status: Acute (4) Generalized weakness Status: Acute (5) Bipolar disorder Status: Chronic (6) Dementia Status: Acute (7) Psoriasis Status: Chronic (8) Hypertension Status: Chronic (9) Lupus Status: Chronic (10) Oxygen dependent Status: Chronic (11) Obesity hypoventilation syndrome (12) Chronic mental illness Status: Chronic (13) Acute on chronic respiratory failure with hypoxia and hypercapnia Status: Acute SAMANTHA COLLIER DO Mar 13, 2020 06:50
[2020-03-13] MEDS: RT-ALBUTEROL/IPRATROPIUM 3 ML (DUONEB) VIAL INH SCH ×3 (07:54→22:04)
[2020-03-13] MEDS: ADVAIR HFA 115/21 MCG INHALER 8 GM IH SCH ×2 (07:57→22:04)
[2020-03-13] MEDS: CYANOCOBALAMIN 1,000 MCG (VITAMIN B-12) TABLET PO SCH (09:16)
[2020-03-13] MEDS: FOLIC ACID 1 MG TAB PO SCH (09:16)
[2020-03-13] MEDS: SENNA W/DOCUSATE (SENOKOT S) TABLET PO SCH ×3 (09:16→20:17)
[2020-03-13] MEDS: LORATADINE (CLARITIN) 10 MG TAB PO SCH (09:16)
[2020-03-13] MEDS: VITAMIN D3 25 MCG (1,000 UNITS) TABLET PO SCH (09:16)
[2020-03-13] MEDS: PANTOPRAZOLE 40 MG (PROTONIX) TAB PO SCH ×2 (09:16→20:14)
[2020-03-13] MEDS: meTOprolol SUCCINATE 100 MG (TOPROL XL) TAB PO SCH (09:16)
[2020-03-13] MEDS: amLODIPine 5 MG (NORVASC) TAB PO SCH (09:16)
[2020-03-13] MEDS: TRIAMCINOLONE 0.1% CR (KENALOG) 80 GM TUBE TP SCH ×2 (09:17→20:15)
[2020-03-13] MEDS: METHOTREXATE 2.5 MG TAB PO SCH (09:21)
--- NOTE | 2020-03-13 09:21 | Physical Therapy Daily Note ---
PT Daily Note-Current Subjective Pt. in bed upon arrival, difficult to awaken but states she wants therapies. Pt. closes eyes and appears to be asleep several times and needs awakened again. Pain Numeric Pain Scale: 5-Moderate Pain Location: Right (and left) Location Body Site: Knee Pain Description: Ache Appearance groggy, mumbles to herself Mental Status Attachments: Oxygen, IV Transfers SCALE: Activities may be completed with or without assistive devices. 9-Hpdukczmqx-sfkeyyc completes the activity by him/herself with no assistance from a helper. 5-Set-up or Clean-up Assistance-helper sets up or cleans up; patient completes activity. [place] assists only prior to or following the activity. 4-Supervision or Touching Assistance-helper provides verbal cues and/or touching/steadying and/or contact guard assistance as patient completes activity. Assistance may be provided throughout the activity or intermittently. 3-Partial/Moderate Assistance-helper does LESS THAN HALF the effort. [place] lifts, holds or supports trunk or limbs, but provides less than half the effort. 2-Substantial/Maximal Assistance-helper does MORE THAN HALF the effort. [place] lifts or holds trunk or limbs and provides more than half the effort. 1-Cxknzwqtt-zrtlwk does ALL the effort. Patient does none of the effort to complete the activity. Or, the assistance of 2 or more helpers is required for the patient to complete the activity. If activity was not attempted, code reason: 7-Patient Refused. 9-Not Applicable-not attempted and the patient did not perform the activity before the current illness, exacerbation or injury. 10-Not Attempted due to Environmental Limitations-(lack of equipment, weather restraints, etc.). 88-Not Attempted due to Medical Conditions or Safety Concerns. sit to stand x 8 SBA but states this makes her knees hurt Gait Training Does the Patient Walk?: Yes Gait Assistive Device: FWW 10ft x 4 CGA, pt. c/o fatigue and knee pain Exercises Seated Therapy Exercises: Ankle pumps, Sit to stand, Long arc quads, Hip flexion, Hip abd/add Seated Reps: 12 Treatments toileted with SBA.managed pants and cleaning after BM indep Assessment Current Status: Good Progress pt. states one thing and then another. reviewed her goals today and purpose for therapy etc PT Short Term Goals Short Term Goals Time Frame: Mar 22, 2020 Lying to sitting on side of be: 4 Sit to stand: 4 Walk 50 feet with two turns: 4 Wheel 150 feet: 5 PT Jail Goals Contracts Specialist Goals PT Jail Goals Time Frame: Apr 05, 2020 Roll Left & Right (QC): 6 Sit to Lying (QC): 6 Lying-Sitting on Side/Bed(QC): 6 Sit to Stand (QC): 6 Chair/Iou-ax-Mpsiz Xfer(QC): 6 Toilet Transfer (QC): 6 Car Transfer (QC): 5 Does the Patient Walk: Yes Walk 10 feet (QC): 6 Walk 50ft with 2 Turns (QC): 6 Walk 150 ft (QC): 5 Walking 10ft on Uneven Surface: 5 1 Step (curb) (QC): 4 4 Steps (QC): 9 12 Steps (QC): 9 Picking up an Object (QC): 6 (with a medical artist) Does the Pt use WC or Scooter?: Yes Wheel 50 feet with 2 turns (QC: 6 Type: Manual Wheel 150 feet: 6 Type: Manual PT Plan Treatment/Plan Treatment Plan: Continue Plan of Care Treatment Plan: Bed Mobility, Education, Functional Activity Fede, Functional Strength, Group Therapy, Gait, Safety, Therapeutic Exercise, Transfers Treatment Duration: Apr 05, 2020 Frequency: At least 5 of 7 days/Wk (IRF) Estimated Hrs Per Day: Other (pt will achieve 15hrs over 7 days) Patient and/or Family Agrees t: Yes Safety Risks/Education Patient Education: Gait Training, Transfer Techniques, Correct Positioning, Disease Process, Safety Issues Teaching Recipient: Patient Teaching Methods: Demonstration, Discussion Response to Teaching: Verbalize Understanding, Return Demonstration, Reinforcement Needed Time/GCodes Time In: 830 Time Out: 855 Total Billed Treatment Time: 25 Total Billed Treatment 1,FA15m,EX10m LYNN MARTINEZ ADVERTISING STRATEGIST Mar 13, 2020 09:21
--- NOTE | 2020-03-13 09:33 | NUR ---
Pt states that she sees Dr. Guthrie at [facility] monthly, but, by Zoom now, & that she's "supposed to see Dr. Berman." Reports that she has only seen him once. Dr. Ward is her PCP.
[2020-03-13] MEDS: HYDROcodone/APAP 5 MG/325 MG (LORTAB) TAB PO PRN ×2 (09:42→18:13)
--- NOTE | 2020-03-13 09:47 | Occupational Ther Daily Note ---
OT Current Status-Daily Note Subjective Pt seated in recliner, agreeable to OT. Pt unable to recall this therapist from previous sessions. Mental Status/Objective Patient Orientation: Person, Confused ADL-Treatment Therapy Code Descriptions/Definitions Functional [place] Measure: 0=Not Assessed/NA 4=Minimal Assistance 1=Total Assistance 5=Supervision or Setup 2=Maximal Assistance 6=Modified [place] 3=Moderate Assistance 7=Complete IndependenceSCALE: Activities may be completed with or without assistive devices. 8-Hjgfxsjyaj-btnfytf completes the activity by him/herself with no assistance from a helper. 5-Set-up or Clean-up Assistance-helper sets up or cleans up; patient completes activity. [place] assists only prior to or following the activity. 4-Supervision or Touching Assistance-helper provides verbal cues and/or to uching/steadying and/or contact guard assistance as patient completes activity. Assistance may be provided throughout the activity or intermittently. 3-Partial/Moderate Assistance-helper does LESS THAN HALF the effort. [place] lifts, holds or supports trunk or limbs, but provides less than half the effort. 2-Substantial/Maximal Assistance-helper does MORE THAN HALF the effort. [place] lifts or holds trunk or limbs and provides more than half the effort. 0-Ctehiayvl-vibekg does ALL the effort. Patient does none of the effort to complete the activity. Or, the assistance of 2 or more helpers is required for the patient to complete the activity. If activity was not attempted, code reason: 7-Patient Refused. 9-Not Applicable-not attempted and the patient did not perform the activity before the current illness, exacerbation or injury. 10-Not Attempted due to Environmental Limitations-(lack of equipment, weather restraints, etc.). 88-Not Attempted due to Medical Conditions or Safety Concerns. Oral Hygiene (QC): 6 (pt completed at w/c level, seated at sink) Other Treatment Pt seated in recliner, required cues on using remote to lower foot rest of lift chair. Pt transferred to w/c using FWW with SBA. Pt self-propelled w/c into restroom, with min A around objects in room, and assistance managing O2 lines and IV pole. Pt sat at sink to complete face washing and oral care independently. Pt requested to wash hair, OT set up shower cap for pt, pt able to scrub sides of head but required assistance with the back. OT assisted pt with drying hair with a towel. Pt then able to brush the sides of her hair, requiring assistance combing the back due to limited ROM. Pt maneuvered w/c back towards recliner, requiring min A with w/c mobility, and assistance with O2 lines and IV pole. Pt used FWW to transfer back to recliner with SBA. Post OT tx, pt seated in recliner, call light in reach and all needs met. Education OT Patient Education: Correct positioning, Energy conservation, Modified ADL techniques, Progress toward Goal/Update tx plan, Purpose of tx/functional activities, Transfer techniques Teaching Recipient: Patient Teaching Methods: Discussion Response to Teaching: Verbalize Understanding OT Short Term Goals Short Term Goals Time Frame: Mar 19, 2020 Shower/bathe self: 4 Lower body dressin Putting on/taking off footwear: 4 OT Nurse Ortho Goals Nurse Ortho Goals Time Frame: Apr 02, 2020 Eating (QC): 6 Oral Hygiene (QC): 6 Toileting Hygiene (QC): 6 Shower/Bathe Self (QC): 6 Upper Body Dressing (QC): 6 Lower Body Dressing (QC): 6 On/Off Footwear (QC): 6 Additional Goals: 1-Demonstrate ADL Tasks, 2-Verbalize Understanding, 3- ImproveStrength/Fede 1=Demonstrate adherence to instructed precautions during ADL tasks. 2=Patient will verbalize/demonstrate understanding of assistive devices/modifications for ADL. 3=Patient will improve strength/tolerance for activity to enable patient to perform ADL's. OT Education/Plan Problem List/Assessment Assessment: Decreased Activ Tolerance, Decreased Safety Aware, Decreased UE Strength, Impaired Cognition, Impaired I ADL's, Impaired Self-Care Skills Discharge Recommendations Plan/Recommendations: Continue POC Treatment Plan/Plan of Care Patient would benefit from OT for education, treatment and training to promote independence in ADL's, mobility, safety and/or upper extremity function for ADL's. Plan of Care: ADL Retraining, Functional Mobility, Group Exercise/Act as Ind, UE Funct Exercise/Act, W/C Management Training Treatment Duration: Apr 02, 2020 Frequency: Modified Program (IRF) (23/12) Estimated Hrs Per Day: .25 hour per day Agreement: Yes Rehab Potential: Fair Time/GCodes Start Time: 09:05 Stop Time: 09:30 Total Time Billed (hr/min): 25 Billed Treatment Time 1, ADL 2 GAMA DIEGO OT Mar 13, 2020 09:47
[2020-03-13] MEDS: ENOXAPARIN 40 MG/0.4 ML (LOVENOX) SYR SC SCH ×2 (11:59→23:30)
--- NOTE | 2020-03-13 14:26 | NUR ---
Call to Pharmacy, spoke kee Tompkins, notified that I cannot find the Zosyn IV ATB in the omnicell or frig, or that it has been tubed up, after looking several times. She states that she will tube one up. Addendum: 03/13/20 at 1441 by JOHN PATTON RN stated that she hadn't brought up the afternoon doses yet
[2020-03-13 18:04] VITALS: BP 145/69
[2020-03-13] MEDS: DONEPEZIL 10 MG (ARICEPT) TAB PO SCH (20:14)
[2020-03-13] MEDS: OLANZapine 5 MG (ZyPREXA) TAB PO SCH (20:14)
[2020-03-13] MEDS: ACETAMINOPHEN 500 MG TAB (TYLENOL) PO PRN (20:15)
[2020-03-14] MEDS: PIPERACILLIN/TAZOBACTAM (BULK) 4.5 GM in NS (IVPB) 100 ML IV SCH ×2 (04:10→13:33)
[2020-03-14] MEDS: CATHETER FLUSH 10 ML SYR IV SCH ×3 (04:11→22:08)
[2020-03-14 05:19] VITALS: BP 159/71
[2020-03-14] MEDS: SUCRALFATE 1 GM (CARAFATE) TAB PO SCH ×4 (05:42→20:42)
--- NOTE | 2020-03-14 06:31 | PM&R Progress Note ---
Subjective HPI/CC On Admission Date Seen by Provider: Mar 14, 2020 Time Seen by Provider: 12:30 Subjective/Events-last exam 03/14/20: BiPAP until 99 Xanax given for dyspnea but O2 sat was good BM today No pain issues 03/12/20: Zofran given today for nausea PPI and Carafate maintained for gastiritis treatment Complaining about the bland diet Needs biPAP at night and prn during the day for chronic hypercapnia : EGD and colonoscopy done today showing severe gastritis but colonoscopy was normal Rapidly desaturated oxygen-paz when she doesnt wear her oxygen to 67% Maintain on 4L per minute Kenalog cream for psoriasis will be ordered Overall seems to be doing pretty well now Pt is less SOB today after a two days course in ICU maintained on BiPAP and Vapotherm and now nasal cannula Heart rate 120s, I did consult Dr. Fuentes, gave her a dose of 50mg Metoprolol Maintain on 3 liters of oxygen now Will DC catheter Home meds will be restarted today Overall much improved Will change to a regular diet Bowels not moving but she hasnt eaten much Review of Systems General: Fatigue, Malaise Pulmonary: Dyspnea Neurological: Weakness Objective Exam Vital Signs Vital Signs Date Time Temp Pulse Resp B/P (MAP) Pulse Ox O2 Delivery O2 Flow Rate FiO2 03/14/20 15:47 37.0 76 22 155/70 (98) 97 Nasal Cannula 4.00 Capillary Refill : Less Than 3 SecondsLess Than 3 Seconds General Appearance: No Apparent Distress, WD/WN, Chronically ill HEENT: PERRL/EOMI, Normal ENT Inspection, Pharynx Normal Neck: Full Range of Motion, Normal Inspection, Non Tender, Supple, Carotid Bruit Respiratory: Chest Non Tender, Lungs Clear, Normal Breath Sounds, No Accessory Muscle Use, No Respiratory Distress, Decreased Breath Sounds Cardiovascular: Regular Rate, Rhythm, No Edema, No Gallop, No JVD, No Murmur, Normal Peripheral Pulses Gastrointestinal: Normal Bowel Sounds, No Organomegaly, No Pulsatile Mass, Non Tender, Soft Back: Normal Inspection, No CVA Tenderness, No Vertebral Tenderness Extremity: Normal Capillary Refill, Normal Inspection, Normal Range of Motion, Non Tender, No Calf Tenderness, No Pedal Edema Neurologic/Psychiatric: Alert, Oriented x3, No Motor/Sensory Deficits, Normal Mood/Affect Skin: Normal Color, Warm/Dry Lymphatic: No Adenopathy Results/Procedures Lab Patient resulted labs reviewed. FIM Transfers Therapy Code Descriptions/Definitions Functional [place] Measure: 0=Not Assessed/NA 4=Minimal Assistance 1=Total Assistance 5=Supervision or Setup 2=Maximal Assistance 6=Modified [place] 3=Moderate Assistance 7=Complete IndependenceSCALE: Activities may be completed with or without assistive devices. 3-Xvlczfmtln-qzxsnoo completes the activity by him/herself with no assistance from a helper. 5-Set-up or Clean-up Assistance-helper sets up or cleans up; patient completes activity. [place] assists only prior to or following the activity. 4-Supervision or Touching Assistance-helper provides verbal cues and/or touching/steadying and/or contact guard assistance as patient completes activity. Assistance may be provided throughout the activity or intermittently. 3-Partial/Moderate Assistance-helper does LESS THAN HALF the effort. [place] lifts, holds or supports trunk or limbs, but provides less than half the effort. 2-Substantial/Maximal Assistance-helper does MORE THAN HALF the effort. [place] lifts or holds trunk or limbs and provides more than half the effort. 3-Enogrdsqu-yibvga does ALL the effort. Patient does none of the effort to complete the activity. Or, the assistance of 2 or more helpers is required for the patient to complete the activity. If activity was not attempted, code reason: 7-Patient Refused. 9-Not Applicable-not attempted and the patient did not perform the activity before the current illness, exacerbation or injury. 10-Not Attempted due to Environmental Limitations-(lack of equipment, weather restraints, etc.). 88-Not Attempted due to Medical Conditions or Safety Concerns. Roll Left to Right (QC): 6 Sit to Lying (QC): 4 Sit to Stand (QC): 6 Chair/Wmg-fc-Upykj Xfer(QC): 5 Car Transfer (QC): 88 (unable to tolerate this this date. ) Gait Training Does the Patient Walk?: Yes Distance: 15' x2, 30' Walk 10 feet (QC): 4 Walk 50 ft with 2 Turns(QC): 88 (unable to walk further than 25 ft before needing to sit and rest. ) Walk 150 ft (QC): 88 Walking 10ft/uneven surface-QC: 88 Gait Persons Needed: 1 Gait Assistive Device: FWW Wheelchair Training Does the Pt Use a Wheelchair?: Yes Distance: 50 ft Wheel 50 ft with 2 turns (QC): 6 Wheel 150 ft (QC): 6 Type of Wheelchair: Manual Stair Training 1 Step (curb) (QC): 7 4 Steps (QC): 9 12 Steps (QC): 9 Balance Picking up an Object (QC): 88 ADL-Treatment Eating (QC): 3 Oral Hygiene (QC): 6 (pt completed at w/c level, seated at sink) Bathing Location: L Arm, R Arm, L Upper Leg, R Upper Leg, L Lower Leg (including foot), R Lower Leg (including foot), Chest, Abdomen, Perineal Area Shower/Bathe Self (QC): 3 (min A for bottom thoroughness and hair washing (due to limited shoulder flexion AROM). Pt able to complete all other tasks with SBA/ set up) Upper Body Dressing (QC): 4 (gathers clothing when handed bag. Pt unable to flex shoulders to bring shirt overhead. Pt is educated on use of tabletop to place elbows for assisted ROM for shoulders. At tabletop level, pt able to don shirt with increased time/ SBA.) Lower Body Dressing (QC): 4 (SBA all tasks) On/Off Footwear (QC): 5 (s/u- pt given all items to be completed with increased time. Pt dons socks then doffs stating she does not wear shoes with socks. Dons shoes.) Toileting Hygiene (QC): 3 (s/u for gathering supplies, pt then able to reach bottom in sit, tabatha area in stance, then requires min A for bottom thoroughness.) Toilet Transfer (QC): 4 (SBA ambulation with walker and CGA sit to stand.) Assessment/Plan Assessment and Plan Assess & Plan/Chief Complaint Assessment: Severe debility due to acute on chronic respiratory failure h/o trach 05/29 h/o PEG tube 05/29 Mental illness precluding fast recovery Former smoker COPD OHS Dementia Plan: Monitor closely Inpatient rehabilitation protocol with therapies Dr Berman consultation appreciated 03/10/20: Restart IRF protocol Transfuse 1 unit of blood Consult Dr Evans may need scope, maintain PPI in meantime Appreciate Dr Fuentes and Dr Berman 03/11/20: Appreciate EGD and Colonoscopy from Dr Evans Gastritis treatment with PPI and Carafate 03/12/20: Bipap at night and prn during day when napping Monitor nausea PPI and Carafate 03/14/20: BiPAP at night and during naps Monitor dyspnea Change IV abx to PO (1) Debility (2) Acute on chronic respiratory failure Status: Chronic (3) Morbid obesity Status: Acute (4) Generalized weakness Status: Acute (5) Bipolar disorder Status: Chronic (6) Dementia Status: Acute (7) Psoriasis Status: Chronic (8) Hypertension Status: Chronic (9) Lupus Status: Chronic (10) Oxygen dependent Status: Chronic (11) Obesity hypoventilation syndrome (12) Chronic mental illness Status: Chronic (13) Acute on chronic respiratory failure with hypoxia and hypercapnia Status: Acute SAMANTHA COLLIER DO Mar 14, 2020 06:30
[2020-03-14] MEDS: RT-ALBUTEROL/IPRATROPIUM 3 ML (DUONEB) VIAL INH SCH ×3 (07:28→20:39)
[2020-03-14] MEDS: ADVAIR HFA 115/21 MCG INHALER 8 GM IH SCH ×2 (07:30→20:40)
[2020-03-14] MEDS: IRON SUCROSE 200 MG/10 ML (VENOFER) VIAL IV SCH (09:36)
[2020-03-14] MEDS: FOLIC ACID 1 MG TAB PO SCH (09:36)
[2020-03-14] MEDS: VITAMIN D3 25 MCG (1,000 UNITS) TABLET PO SCH (09:36)
[2020-03-14] MEDS: LORATADINE (CLARITIN) 10 MG TAB PO SCH (09:36)
[2020-03-14] MEDS: meTOprolol SUCCINATE 100 MG (TOPROL XL) TAB PO SCH (09:37)
[2020-03-14] MEDS: TRIAMCINOLONE 0.1% CR (KENALOG) 80 GM TUBE TP SCH ×2 (09:37→20:43)
[2020-03-14] MEDS: PANTOPRAZOLE 40 MG (PROTONIX) TAB PO SCH ×2 (09:37→20:42)
[2020-03-14] MEDS: CYANOCOBALAMIN 1,000 MCG (VITAMIN B-12) TABLET PO SCH (09:37)
[2020-03-14] MEDS: amLODIPine 5 MG (NORVASC) TAB PO SCH (09:37)
[2020-03-14] MEDS: SENNA W/DOCUSATE (SENOKOT S) TABLET PO SCH ×2 (09:38→20:45)
[2020-03-14 10:30] VITALS: BP 151/65
[2020-03-14] MEDS: ALPRAZolam 0.25 MG (XANAX) TAB PO PRN (10:30)
[2020-03-14] MEDS: ENOXAPARIN 40 MG/0.4 ML (LOVENOX) SYR SC SCH ×2 (10:35→22:45)
[2020-03-14] MEDS: HYDROcodone/APAP 5 MG/325 MG (LORTAB) TAB PO PRN (15:45)
[2020-03-14 15:47] VITALS: BP 155/70
[2020-03-14] MEDS: OLANZapine 5 MG (ZyPREXA) TAB PO SCH (20:42)
[2020-03-14] MEDS: DONEPEZIL 10 MG (ARICEPT) TAB PO SCH (20:42)
[2020-03-14] MEDS: CEFDINIR 300 MG (OMNICEF) CAP PO SCH (20:42)
[2020-03-15] MEDS: SUCRALFATE 1 GM (CARAFATE) TAB PO SCH ×4 (05:47→20:27)
[2020-03-15] MEDS: CATHETER FLUSH 10 ML SYR IV SCH ×3 (05:47→22:41)
[2020-03-15 05:54] VITALS: BP 133/59
[2020-03-15 06:32] LABS: BASOPHILS # (AUTO) 0.1 10^3/uL (0.0-0.1); BASOPHILS % (AUTO) 1 % (0-10); EOSINOPHILS # (AUTO) 0.5 10^3/uL (0.0-0.3); EOSINOPHILS % (AUTO) 5 % (0-10); HEMATOCRIT 34 % (35-52); HEMOGLOBIN 9.2 g/dL (11.5-16.0); LYMPHOCYTES # (AUTO) 1.8 10^3/uL (1.0-4.0); LYMPHOCYTES % (AUTO) 18 % (12-44); MEAN CORPUSCULAR HEMOGLOBIN 23 pg (25-34); MEAN CORPUSCULAR HGB CONC 27 g/dL (32-36); MEAN CORPUSCULAR VOLUME 86 fL (80-99); MEAN PLATELET VOLUME 9.9 fL (9.0-12.2); MONOCYTES # (AUTO) 0.5 10^3/uL (0.0-1.0); MONOCYTES % (AUTO) 5 % (0-12); NEUTROPHILS # (AUTO) 7.3 10^3/uL (1.8-7.8); NEUTROPHILS % (AUTO) 71 % (42-75); PLATELET COUNT 340 10^3/uL (130-400); WHITE BLOOD COUNT 10.2 10^3/uL (4.3-11.0)
[2020-03-15 06:42] LABS: ALBUMIN 3.7 GM/DL (3.2-4.5); CHLORIDE 102 MMOL/L (98-107); POTASSIUM 3.8 MMOL/L (3.6-5.0); SODIUM 145 MMOL/L (135-145)
[2020-03-15 06:44] LABS: GLUCOSE 102 MG/DL (70-105); TOTAL PROTEIN 6.5 GM/DL (6.4-8.2)
[2020-03-15 06:45] LABS: CARBON DIOXIDE 31 MMOL/L (21-32)
[2020-03-15 06:46] LABS: BILIRUBIN,TOTAL 0.2 MG/DL (0.1-1.0)
[2020-03-15 06:48] LABS: ALKALINE PHOSPHATASE 88 U/L (40-136); CREATININE SERUM 0.82 MG/DL (0.60-1.30); GFR ESTIMATED > 60
[2020-03-15 06:49] LABS: BUN/CREATININE RATIO 10
[2020-03-15 06:51] LABS: ALANINE AMINOTRANSFERASE 62 U/L (0-55)
--- NOTE | 2020-03-15 07:54 | PM&R Progress Note ---
Subjective HPI/CC On Admission Date Seen by Provider: Mar 15, 2020 Time Seen by Provider: 10:00 Subjective/Events-last exam 03/15/20: Pt has dyspnea on exertion Wears O2 at home all the time 4 liters of O2 required on exertion AST and ALT are 91 and 62 respectively Decreased confusion WBC normal Hgb 9.2 03/14/20: BiPAP until 99 Xanax given for dyspnea but O2 sat was good BM today No pain issues 03/12/20: Zofran given today for nausea PPI and Carafate maintained for gastiritis treatment Complaining about the bland diet Needs biPAP at night and prn during the day for chronic hypercapnia : EGD and colonoscopy done today showing severe gastritis but colonoscopy was normal Rapidly desaturated oxygen-paz when she doesnt wear her oxygen to 67% Maintain on 4L per minute Kenalog cream for psoriasis will be ordered Overall seems to be doing pretty well now Pt is less SOB today after a two days course in ICU maintained on BiPAP and Vapotherm and now nasal cannula Heart rate 120s, I did consult Dr. Fuentse, gave her a dose of 50mg Metoprolol Maintain on 3 liters of oxygen now Will DC catheter Home meds will be restarted today Overall much improved Will change to a regular diet Bowels not moving but she hasnt eaten much Review of Systems General: Fatigue, Malaise Neurological: Weakness Focused Exam Lactate Level 03/15/20 09:30: Lactic Acid Level 1.46 Objective Exam Vital Signs Vital Signs Date Time Temp Pulse Resp B/P (MAP) Pulse Ox O2 Delivery O2 Flow Rate FiO2 03/15/20 18:33 96 Nasal Cannula 3.00 03/15/20 18:08 150/72 (98) 03/15/20 17:29 36.9 74 18 Capillary Refill : Less Than 3 SecondsLess Than 3 Seconds General Appearance: No Apparent Distress, WD/WN, Chronically ill HEENT: PERRL/EOMI, Normal ENT Inspection, Pharynx Normal Neck: Full Range of Motion, Normal Inspection, Non Tender, Supple, Carotid Bruit Respiratory: Chest Non Tender, Lungs Clear, Normal Breath Sounds, No Accessory Muscle Use, No Respiratory Distress, Decreased Breath Sounds Cardiovascular: Regular Rate, Rhythm, No Edema, No Gallop, No JVD, No Murmur, Normal Peripheral Pulses Gastrointestinal: Normal Bowel Sounds, No Organomegaly, No Pulsatile Mass, Non Tender, Soft Back: Normal Inspection, No CVA Tenderness, No Vertebral Tenderness Extremity: Normal Capillary Refill, Normal Inspection, Normal Range of Motion, Non Tender, No Calf Tenderness, No Pedal Edema Neurologic/Psychiatric: Alert, Oriented x3, No Motor/Sensory Deficits, Normal Mood/Affect Skin: Normal Color, Warm/Dry Lymphatic: No Adenopathy Results/Procedures Lab Laboratory Tests 03/15/20 06:10 Patient resulted labs reviewed. FIM Transfers Therapy Code Descriptions/Definitions Functional [place] Measure: 0=Not Assessed/NA 4=Minimal Assistance 1=Total Assistance 5=Supervision or Setup 2=Maximal Assistance 6=Modified [place] 3=Moderate Assistance 7=Complete IndependenceSCALE: Activities may be completed with or without assistive devices. 3-Nmpbldaqfl-spnqofa completes the activity by him/herself with no assistance from a helper. 5-Set-up or Clean-up Assistance-helper sets up or cleans up; patient completes activity. [place] assists only prior to or following the activity. 4-Supervision or Touching Assistance-helper provides verbal cues and/or touching/steadying and/or contact guard assistance as patient completes activity. Assistance may be provided throughout the activity or intermittently. 3-Partial/Moderate Assistance-helper does LESS THAN HALF the effort. [place] lifts, holds or supports trunk or limbs, but provides less than half the effort. 2-Substantial/Maximal Assistance-helper does MORE THAN HALF the effort. [place] lifts or holds trunk or limbs and provides more than half the effort. 3-Zyarnkeqi-khmvfv does ALL the effort. Patient does none of the effort to complete the activity. Or, the assistance of 2 or more helpers is required for the patient to complete the activity. If activity was not attempted, code reason: 7-Patient Refused. 9-Not Applicable-not attempted and the patient did not perform the activity before the current illness, exacerbation or injury. 10-Not Attempted due to Environmental Limitations-(lack of equipment, weather restraints, etc.). 88-Not Attempted due to Medical Conditions or Safety Concerns. Roll Left to Right (QC): 6 Sit to Lying (QC): 4 Sit to Stand (QC): 6 Chair/Hql-ky-Frjho Xfer(QC): 5 Car Transfer (QC): 88 (unable to tolerate this this date. ) Gait Training Does the Patient Walk?: Yes Distance: 15' x2, 30' Walk 10 feet (QC): 4 Walk 50 ft with 2 Turns(QC): 88 (unable to walk further than 25 ft before needing to sit and rest. ) Walk 150 ft (QC): 88 Walking 10ft/uneven surface-QC: 88 Gait Persons Needed: 1 Gait Assistive Device: FWW Wheelchair Training Does the Pt Use a Wheelchair?: Yes Distance: 50 ft Wheel 50 ft with 2 turns (QC): 6 Wheel 150 ft (QC): 6 Type of Wheelchair: Manual Stair Training 1 Step (curb) (QC): 7 4 Steps (QC): 9 12 Steps (QC): 9 Balance Picking up an Object (QC): 88 ADL-Treatment Eating (QC): 3 Oral Hygiene (QC): 6 (pt completed at w/c level, seated at sink) Bathing Location: L Arm, R Arm, L Upper Leg, R Upper Leg, L Lower Leg (including foot), R Lower Leg (including foot), Chest, Abdomen, Perineal Area Shower/Bathe Self (QC): 3 (min A for bottom thoroughness and hair washing (due to limited shoulder flexion AROM). Pt able to complete all other tasks with SBA/ set up) Upper Body Dressing (QC): 4 (gathers clothing when handed bag. Pt unable to flex shoulders to bring shirt overhead. Pt is educated on use of tabletop to place elbows for assisted ROM for shoulders. At tabletop level, pt able to don shirt with increased time/ SBA.) Lower Body Dressing (QC): 4 (SBA all tasks) On/Off Footwear (QC): 5 (s/u- pt given all items to be completed with increased time. Pt dons socks then doffs stating she does not wear shoes with socks. Dons shoes.) Toileting Hygiene (QC): 3 (s/u for gathering supplies, pt then able to reach bottom in sit, tabatha area in stance, then requires min A for bottom thorough ness.) Toilet Transfer (QC): 4 (SBA ambulation with walker and CGA sit to stand.) Assessment/Plan Assessment and Plan Assess & Plan/Chief Complaint Assessment: Severe debility due to acute on chronic respiratory failure h/o trach 05/29 h/o PEG tube 05/29 Mental illness precluding fast recovery Former smoker COPD OHS Dementia Plan: Monitor closely Inpatient rehabilitation protocol with therapies Dr Berman consultation appreciated 03/10/20: Restart IRF protocol Transfuse 1 unit of blood Consult Dr Evans may need scope, maintain PPI in meantime Appreciate Dr Fuentes and Dr Berman 03/11/20: Appreciate EGD and Colonoscopy from Dr Evans Gastritis treatment with PPI and Carafate 03/12/20: Bipap at night and prn during day when napping Monitor nausea PPI and Carafate 03/14/20: BiPAP at night and during naps Monitor dyspnea Change IV abx to PO 03/15/20: Maintain oxygen Labs reviewed Patient doing very well (1) Debility (2) Acute on chronic respiratory failure Status: Chronic (3) Morbid obesity Status: Acute (4) Generalized weakness Status: Acute (5) Bipolar disorder Status: Chronic (6) Dementia Status: Acute (7) Psoriasis Status: Chronic (8) Hypertension Status: Chronic (9) Lupus Status: Chronic (10) Oxygen dependent Status: Chronic (11) Obesity hypoventilation syndrome (12) Chronic mental illness Status: Chronic (13) Acute on chronic respiratory failure with hypoxia and hypercapnia Status: Acute SAMANTHA COLLIER DO Mar 15, 2020 07:54
[2020-03-15 08:00] VITALS: BP 172/87
[2020-03-15] MEDS: CEFDINIR 300 MG (OMNICEF) CAP PO SCH ×2 (08:01→20:27)
[2020-03-15] MEDS: PANTOPRAZOLE 40 MG (PROTONIX) TAB PO SCH ×2 (08:01→20:27)
[2020-03-15] MEDS: meTOprolol SUCCINATE 100 MG (TOPROL XL) TAB PO SCH (08:01)
[2020-03-15] MEDS: LORATADINE (CLARITIN) 10 MG TAB PO SCH (08:01)
[2020-03-15] MEDS: amLODIPine 5 MG (NORVASC) TAB PO SCH (08:01)
[2020-03-15] MEDS: VITAMIN D3 25 MCG (1,000 UNITS) TABLET PO SCH (08:03)
[2020-03-15] MEDS: CYANOCOBALAMIN 1,000 MCG (VITAMIN B-12) TABLET PO SCH (08:03)
[2020-03-15] MEDS: FOLIC ACID 1 MG TAB PO SCH (08:03)
[2020-03-15] MEDS: SENNA W/DOCUSATE (SENOKOT S) TABLET PO SCH ×2 (08:04→20:28)
[2020-03-15] MEDS: TRIAMCINOLONE 0.1% CR (KENALOG) 80 GM TUBE TP SCH ×2 (08:05→20:39)
--- NOTE | 2020-03-15 09:14 | Pulmonary Progress Note ---
Sepsis Event Evaluation Height, Weight, BMI Height: 5'7.50" Weight: 200lbs. 1.0oz. 90.558089wr; 41.13 BMI Method:Stated Exam Exam Vital Signs Date Time Temp Pulse Resp B/P (MAP) Pulse Ox O2 Delivery O2 Flow Rate FiO2 03/15/20 08:00 90 172/87 (115) 03/15/20 08:00 Nasal Cannula 4.00 03/15/20 05:54 36.2 82 18 133/59 (83) 95 Nasal Cannula 4.00 03/14/20 22:45 40.00 03/14/20 21:00 Nasal Cannula 4.00 03/14/20 20:39 95 Nasal Cannula 3.00 03/14/20 15:47 37.0 76 22 155/70 (98) 97 Nasal Cannula 4.00 03/14/20 10:30 88 22 151/65 (93) 95 Nasal Cannula 4.00 I & O 03/15/20 07:00 Intake Total 1950 ml Balance 1950 ml Height & Weight Height: 5'7.50" Weight: 200lbs. 1.0oz. 90.471478nq; 41.13 BMI Method:Stated General Appearance: No Apparent Distress, WD/WN, Chronically ill HEENT: PERRL/EOMI, Normal ENT Inspection, Pharynx Normal Neck: Full Range of Motion, Normal Inspection, Non Tender, Supple, Carotid Bruit Respiratory: Chest Non Tender, Lungs Clear, Normal Breath Sounds, No Accessory Muscle Use, No Respiratory Distress, Decreased Breath Sounds Cardiovascular: Regular Rate, Rhythm, No Edema, No Gallop, No JVD, No Murmur, Normal Peripheral Pulses Capillary Refill: Less Than 3 Seconds Extremity: Normal Capillary Refill, Normal Inspection, Normal Range of Motion, Non Tender, No Calf Tenderness, No Pedal Edema Neurologic/Psychiatric: Alert, Oriented x3, No Motor/Sensory Deficits, Normal Mood/Affect Skin: Normal Color, Warm/Dry Lymphatic: No Adenopathy Results Lab Laboratory Tests 03/15/20 06:10 Assessment/Plan Assessment/Plan Acute on chronic respiratory failure -- Notified by RN pt is having more SOB -Check ABG -repeat labs,BNP, and LA (pt is on Metformin) -. Currently on 4 liter NC with SP02 95% -Repeat CXR -IF CXR is clear will check CTA of lungs -Increase Duoneb from BID to Q 4 hours and Q 2 PRN Obesity with OHS -BiPAP QHS and PRN Atelectasis r/o PNA -currently on Cefepime. -COVID swab negative Anemia s/p tranfusion Debilty -PT/OT MERCEDES GARZA DO Mar 15, 2020 09:14
[2020-03-15] MEDS: HYDROcodone/APAP 5 MG/325 MG (LORTAB) TAB PO PRN ×2 (09:50→14:39)
[2020-03-15] MEDS: RT-ALBUTEROL/IPRATROPIUM 3 ML (DUONEB) VIAL INH SCH ×5 (09:59→21:12)
[2020-03-15] MEDS: ADVAIR HFA 115/21 MCG INHALER 8 GM IH SCH ×2 (10:00→18:33)
--- NOTE | 2020-03-15 10:01 | Physical Therapy Daily Note ---
PT Daily Note-Current Subjective Pt presents in recliner. Pt agrees to PT. Pt reports all-over 8/10 pain; by end of treatment pain increased to 9/10 and was concentrated in knees. Nurse notified of pain. Appearance At conclusion of PT tx patient returned to recliner where she was access to tray, call button, and all needs having been met. Nurses are present in room to administer medications. Mental Status Patient Orientation: Person, Place, Time, Eyes Open, Situation, [place] Attachments: Oxygen Transfers SCALE: Activities may be completed with or without assistive devices. 2-Xnpyjttoit-bvnyjrj completes the activity by him/herself with no assistance from a helper. 5-Set-up or Clean-up Assistance-helper sets up or cleans up; patient completes activity. [place] assists only prior to or following the activity. 4-Supervision or Touching Assistance-helper provides verbal cues and/or touching/steadying and/or contact guard assistance as patient completes activity. Assistance may be provided throughout the activity or intermittently. 3-Partial/Moderate Assistance-helper does LESS THAN HALF the effort. [place] li fts, holds or supports trunk or limbs, but provides less than half the effort. 2-Substantial/Maximal Assistance-helper does MORE THAN HALF the effort. [place] lifts or holds trunk or limbs and provides more than half the effort. 9-Sztzhmugk-rpsbyi does ALL the effort. Patient does none of the effort to complete the activity. Or, the assistance of 2 or more helpers is required for the patient to complete the activity. If activity was not attempted, code reason: 7-Patient Refused. 9-Not Applicable-not attempted and the patient did not perform the activity before the current illness, exacerbation or injury. 10-Not Attempted due to Environmental Limitations-(lack of equipment, weather restraints, etc.). 88-Not Attempted due to Medical Conditions or Safety Concerns. Sit to Stand (QC): 4 Chair/Wsc-zx-Zoqrr Xfer(QC): 4 Toilet Transfer (QC): 4 Pt able to complete stranding transfers with CGA to SBA. Gait Training Does the Patient Walk?: Yes Distance: 100'x3 Walk 10 feet (QC): 4 Walk 50 ft with 2 Turns(QC): 4 Gait Assistive Device: FWW Pt required rest breaks in gait; able to walk approx 100'. Gait has improved in speed and steadiness. Wheelchair Training Does the Pt Use a Wheelchair?: Yes Wheel 50 ft with 2 turns (QC): 1 Wheel 150 ft (QC): 1 Type of Wheelchair: Manual Patient wheeled to radiography; due to distance and pt's endurance this was dependent. Assisted patient with standing and transfer while in radiology. Exercises Standing: Marching, Side steps Standing Reps: 20 Treatments Gait training and weightbearing exercise Assessment Current Status: Good Progress, Fair Progress Pt has improved gait. Pt continues to struggle with her endurance, pt limited by SOB. Pt lacks motivation to complete therapy. PT Short Term Goals Short Term Goals Time Frame: Mar 22, 2020 Lying to sitting on side of be: 4 Sit to stand: 4 Walk 50 feet with two turns: 4 Wheel 150 feet: 5 PT Veneer Drier Feeder Goals Alf Goals PT [place] Feeder Goals Time Frame: Apr 05, 2020 Roll Left & Right (QC): 6 Sit to Lying (QC): 6 Lying-Sitting on Side/Bed(QC): 6 Sit to Stand (QC): 6 Chair/Qae-fu-Vejld Xfer(QC): 6 Toilet Transfer (QC): 6 Car Transfer (QC): 5 Does the Patient Walk: Yes Walk 10 feet (QC): 6 Walk 50ft with 2 Turns (QC): 6 Walk 150 ft (QC): 5 Walking 10ft on Uneven Surface: 5 1 Step (curb) (QC): 4 4 Steps (QC): 9 12 Steps (QC): 9 Picking up an Object (QC): 6 (with a principal cyber engineer) Does the Pt use WC or Scooter?: Yes Wheel 50 feet with 2 turns (QC: 6 Type: Manual Wheel 150 feet: 6 Type: Manual PT Plan Problem List Problem List: Activity Tolerance, Functional Strength, Safety, Balance, Gait, Transfer, Bed Mobility, ROM Treatment/Plan Treatment Plan: Continue Plan of Care Treatment Plan: Bed Mobility, Education, Functional Activity Fede, Functional Strength, Group Therapy, Gait, Safety, Therapeutic Exercise, Transfers Treatment Duration: Apr 05, 2020 Frequency: At least 5 of 7 days/Wk (IRF) Estimated Hrs Per Day: Other (pt will achieve 15hrs over 7 days) Patient and/or Family Agrees t: Yes Safety Risks/Education Patient Education: Gait Training, Transfer Techniques, Correct Positioning, Safety Issues Teaching Recipient: Patient Teaching Methods: Demonstration, Discussion Response to Teaching: Reinforcement Needed Time/GCodes Time In: 0900 Time Out: 1000 Total Billed Treatment Time: 60 Total Billed Treatment 1 visit EX 10' FA 50' CLAU SALAZAR PT Mar 15, 2020 10:00
--- NOTE | 2020-03-15 10:13 | Diagnostic Imaging Report ---
INDICATION: Shortness of breath. TIME OF EXAM: 9:21 AM Correlation is made with prior chest from 03/10/2020. Heart size normal. There appears be some calcified pleural plaquing right upper chest. There is some residual infiltrate in the right base, similar to prior. Left lung is clear. No effusion or pneumothorax is detected. IMPRESSION: Residual right basilar infiltrate, similar to examination from 03/10/2020. Dictated by: Dictated on workstation # [id number]
--- NOTE | 2020-03-15 10:57 | Occupational Ther Daily Note ---
OT Current Status-Daily Note Subjective Pt seated in recliner, agreeable to OT Tx. Pt did not verbalize pain during tx. ADL-Treatment Therapy Code Descriptions/Definitions Functional [place] Measure: 0=Not Assessed/NA 4=Minimal Assistance 1=Total Assistance 5=Supervision or Setup 2=Maximal Assistance 6=Modified [place] 3=Moderate Assistance 7=Complete IndependenceSCALE: Activities may be completed with or without assistive devices. 4-Lrkpkwldpu-hqpieku completes the activity by him/herself with no assistance from a helper. 5-Set-up or Clean-up Assistance-helper sets up or cleans up; patient completes activity. [place] assists only prior to or following the activity. 4-Supervision or Touching Assistance-helper provides verbal cues and/or touching/steadying and/or contact guard assistance as patient completes activity. Assistance may be provided throughout the activity or intermittently. 3-Partial/Moderate Assistance-helper does LESS THAN HALF the effort. [place] lifts, holds or supports trunk or limbs, but provides less than half the effort. 2-Substantial/Maximal Assistance-helper does MORE THAN HALF the effort. [place] lifts or holds trunk or limbs and provides more than half the effort. 8-Ttuqtfhpt-xgfnoh does ALL the effort. Patient does none of the effort to complete the activity. Or, the assistance of 2 or more helpers is required for the patient to complete the activity. If activity was not attempted, code reason: 7-Patient Refused. 9-Not Applicable-not attempted and the patient did not perform the activity before the current illness, exacerbation or injury. 10-Not Attempted due to Environmental Limitations-(lack of equipment, weather restraints, etc.). 88-Not Attempted due to Medical Conditions or Safety Concerns. Eating (QC): 6 (pt independent with eating breakfast per pt report.) Oral Hygiene (QC): 6 (independent seated at sink) Shower/Bathe Self (QC): 4 (pt requested sponge bath, able to wash all parts with SBA during stand at FWW) Upper Body Dressing (QC): 5 (set up, pt able to don/doff pullover shirt and manage O2 line) Lower Body Dressing (QC): 4 (SBA in stand, pt able to doff/don brief and pants.) On/Off Footwear: 6 (pt able to doff/sondra slip on shoes in sitting.) Toileting Hygiene (QC): 4 (SBA, pt able to manage clothing and perform hygiene) Toilet Transfer (QC): 4 (SBA, pt transferred on/off BSC over toilet) Other Treatment Pt seated in in recliner, agreeable to OT Tx. Pt requested sponge bath on this date. Pt completed upper body sponge bath and dressing, then requested to use restroom. Pt used FWW to ambulate into restroom, SBA as OT managed O2 lines. Pt completed toileting and lower body dressing seated on BSC over toilet, then used FWW to stand at sink to wash her hands, SBA. Pt sat in wheelchair to brush her teeth and hair at sink. Pt self-propelled w/c to therapy gym, requiring cues to use UEs to assist with w/c mobility. In order to increase BUE strength and functional endurance and fine motor strength/coordination, OT placed 1 lb wrist cuffs on BUEs. Pt placed 1" pegs into foam pegboard, alternating hands, taking rest breaks as needed. Pt able to complete x70 pegs. Pt then self-propelled w/c back to her room, requiring cues for UE assist with w/c management. Pt transferred to recliner, SBA using FWW. Post OT tx, pt seated in recliner, call light in reach and all needs met. Education OT Patient Education: Correct positioning, Energy conservation, Modified ADL techniques, Progress toward Goal/Update tx plan, Purpose of tx/functional activities, Safety issues, Transfer techniques, W/C management Teaching Recipient: Patient Teaching Methods: Discussion Response to Teaching: Verbalize Understanding OT Short Term Goals Short Term Goals Time Frame: Mar 19, 2020 Shower/bathe self: 4 Lower body dressin Putting on/taking off footwear: 4 OT Math And Science Instructor Goals Long-Term Goals Time Frame: Apr 02, 2020 Eating (QC): 6 Oral Hygiene (QC): 6 Toileting Hygiene (QC): 6 Shower/Bathe Self (QC): 6 Upper Body Dressing (QC): 6 Lower Body Dressing (QC): 6 On/Off Footwear (QC): 6 Additional Goals: 1-Demonstrate ADL Tasks, 2-Verbalize Understanding, 3- ImproveStrength/Fede 1=Demonstrate adherence to instructed precautions during ADL tasks. 2=Patient will verbalize/demonstrate understanding of assistive devices/modifications for ADL. 3=Patient will improve strength/tolerance for activity to enable patient to perform ADL's. OT Education/Plan Problem List/Assessment Assessment: Decreased Activ Tolerance, Decreased UE Strength, Impaired I ADL's, Impaired Self-Care Skills Discharge Recommendations Plan/Recommendations: Continue POC Treatment Plan/Plan of Care Patient would benefit from OT for education, treatment and training to promote independence in ADL's, mobility, safety and/or upper extremity function for ADL's. Plan of Care: ADL Retraining, Functional Mobility, Group Exercise/Act as Ind, UE Funct Exercise/Act, W/C Management Training Treatment Duration: Apr 02, 2020 Frequency: Modified Program (IRF) (23/12) Estimated Hrs Per Day: .25 hour per day Agreement: Yes Rehab Potential: Fair Time/GCodes Start Time: 10:00 Stop Time: 11:15 Total Time Billed (hr/min): 75 Billed Treatment Time 1, ADL 3 (50'), FA 2 (25') GAMA DIEGO OT Mar 15, 2020 10:57
--- NOTE | 2020-03-15 11:03 | Progress Note ---
ANN DOTY,MED STUDENT 03/15/20 1103: Progress Note Progress note: 03/15/20 Still some SOB with walking Reports some dizziness on standing Denies any pain this morning Having BM's Used BiPAP overnight SpO2 95% on 4L NC this morning Plan: Continue PO abx Continue PT/OT BiPAP at night ROSALIND COLLIER DO 03/15/20 2142: Supervisory-Addendum Brief Verification & Attestation Participated in pt care: history, MDM, physical Personally performed: exam, history, MDM, supervision of care Care discussed with: Medical Student Procedures: n/a Results interpretation: Verified all documentation Verification and Attestation of Medical Student E/M Service A medical student performed and documented this service in my presence. I reviewed and verified all information documented by the medical student and made modifications to such information, when appropriate. I personally performed the physical exam and medical decision making. Rosalind Collier, Mar 15, 2020,21:42 ANN DOTY,MED STUDENT Mar 15, 2020 11:03 ROSALIND COLLIER DO Mar 15, 2020 21:42
[2020-03-15] MEDS: ENOXAPARIN 40 MG/0.4 ML (LOVENOX) SYR SC SCH ×2 (11:26→23:36)
[2020-03-15 11:48] LABS: ABG BASE EXCESS 9.9 MMOL/L (-2.5-2.5); ABG OXYGEN SATURATION 96 % (94-100); ABG PCO2 66 MMHG (35-45); ABG PH 7.35 (7.37-7.43); ABG PO2 79 MMHG (79-93); ABG TCO2 37.9 MMOL/L (21.0-31.0)
[2020-03-15 11:49] LABS: ALLENS TEST YES-POS; INSPIRED O2 3.5 L; PATIENT TEMP 36.4; VENTILATOR NO
--- NOTE | 2020-03-15 12:00 | Speech Therapy Daily Note ---
Speech Daily Progress Note Subjective Date Seen by Provider: Mar 15, 2020 Time Seen by Provider: 00:30 Patient was resting in her recliner when I entered her room. Objective Patient completed a series of "what's wrong with this picture" safety awareness pictures at 75% with min to mod cues. Assessment Assessment Current Status: Good Progress Treatment Plan Continue Plan of Care Speech Short Term Goals Short Term Goals Short Term Goals 1) The patient will complete memory tasks related to her daily needs at 80% or greater with minimal cues. 2) The patient will complete safety awareness tasks related to her daily needs at 80% or greater with minimal cues. 3) The patient will complete problem solving tasks related to her daily needs at 80% or greater with minimal cues. Speech Skilled Nursing Goals Skilled Nursing Goals The patient will improve her cognitive communication abilities to be able to complete daily tasks with minimal assist. Speech-Plan Patient/Family Goals Patient/Family Goals: Patient plans on returning to her home with support when she is discharged. Treatment Plan Speech Therapy Treatment Plan: Continue Plan of Care Treatment Duration: Mar 11, 2020 Frequency: 4 times per week (Patient will receive ST 4-5x per week) Estimated Hrs Per Day: .5 hour per day Rehab Potential: Fair Barriers to Learning: Patient's medical status, cognitive deficits Pt/Family Agrees to Plan: Yes Safety Risks/Education Teaching Recipient: Patient Teaching Methods: Demonstration, Discussion Response to Teaching: Verbalize Understanding, Return Demonstration Education Topics Provided: Continued safety within her room, communication of wants/needs Time Speech Therapy Time In: 11:30 Speech Therapy Time Out: 12:00 Total Billed Time: 30 Billed Treatment Time 1, MAGUE Rubin Mar 15, 2020 12:00
--- NOTE | 2020-03-15 14:14 | Physical Therapy Daily Note ---
PT Daily Note-Current Subjective Pt presents sitting in recliner. Pt agrees to PT. Pt reports 8/10 pain; pain is all-over but primarily in knees. Appearance At conclusion of PT treatment pt returns to recliner where she has access to tray, call button, and all needs have been met. Mental Status Patient Orientation: Person, Time, Eyes Open, Situation Attachments: Oxygen Transfers SCALE: Activities may be completed with or without assistive devices. 7-Piqjuazryq-xnkyesj completes the activity by him/herself with no assistance from a helper. 5-Set-up or Clean-up Assistance-helper sets up or cleans up; patient completes activity. [place] assists only prior to or following the activity. 4-Supervision or Touching Assistance-helper provides verbal cues and/or touching/steadying and/or contact guard assistance as patient completes activity. Assistance may be provided throughout the activity or intermittently. 3-Partial/Moderate Assistance-helper does LESS THAN HALF the effort. [place] lift s, holds or supports trunk or limbs, but provides less than half the effort. 2-Substantial/Maximal Assistance-helper does MORE THAN HALF the effort. [place] lifts or holds trunk or limbs and provides more than half the effort. 0-[place]-bnzybb does ALL the effort. Patient does none of the effort to complete the activity. Or, the assistance of 2 or more helpers is required for the patient to complete the activity. If activity was not attempted, code reason: 7-Patient Refused. 9-Not Applicable-not attempted and the patient did not perform the activity before the current illness, exacerbation or injury. 10-Not Attempted due to Environmental Limitations-(lack of equipment, weather restraints, etc.). 88-Not Attempted due to Medical Conditions or Safety Concerns. Sit to Stand (QC): 4 Chair/Ecv-sq-Arqwf Xfer(QC): 4 Toilet Transfer (QC): 4 Pt is able to transfer with CGA. Pt able to wipe self and pull up own pants after toileting; therapist available for balance support. Gait Training Does the Patient Walk?: Yes Distance: 100',100', 150', 50' Walk 10 feet (QC): 4 Walk 50 ft with 2 Turns(QC): 4 Walk 150 ft (QC): 4 Gait Assistive Device: FWW Pt ambulating with swing-through pattern at a steady pace; CGA. Wheelchair follow-behind provided by secondary therapist; pt requires breaks due to pain in knees and shortness of breath. Treatments Gait Training Assessment Current Status: Good Progress Pt is improving her gait and endurance with activities. Pt is able to initiate activity when she feels rested after break; this is an improvement in her motivation to finish therapy. PT Short Term Goals Short Term Goals Time Frame: Mar 22, 2020 Lying to sitting on side of be: 4 Sit to stand: 4 Walk 50 feet with two turns: 4 Wheel 150 feet: 5 PT Mcfp Goals Mcfp Goals PT Ethical Hacker Goals Time Frame: Apr 05, 2020 Roll Left & Right (QC): 6 Sit to Lying (QC): 6 Lying-Sitting on Side/Bed(QC): 6 Sit to Stand (QC): 6 Chair/Yrz-sb-Eieti Xfer(QC): 6 Toilet Transfer (QC): 6 Car Transfer (QC): 5 Does the Patient Walk: Yes Walk 10 feet (QC): 6 Walk 50ft with 2 Turns (QC): 6 Walk 150 ft (QC): 5 Walking 10ft on Uneven Surface: 5 1 Step (curb) (QC): 4 4 Steps (QC): 9 12 Steps (QC): 9 Picking up an Object (QC): 6 (with a paint stockman) Does the Pt use WC or Scooter?: Yes Wheel 50 feet with 2 turns (QC: 6 Type: Manual Wheel 150 feet: 6 Type: Manual PT Plan Problem List Problem List: Activity Tolerance, Functional Strength, Safety, Balance, Transfer, Bed Mobility, ROM Treatment/Plan Treatment Plan: Continue Plan of Care Treatment Plan: Bed Mobility, Education, Functional Activity Fede, Functional Strength, Group Therapy, Gait, Safety, Therapeutic Exercise, Transfers Treatment Duration: Apr 05, 2020 Frequency: At least 5 of 7 days/Wk (IRF) Estimated Hrs Per Day: Other (pt will achieve 15hrs over 7 days) Patient and/or Family Agrees t: Yes Safety Risks/Education Patient Education: Gait Training, Safety Issues Teaching Recipient: Patient Teaching Methods: Demonstration, Discussion Response to Teaching: Reinforcement Needed Time/GCodes Time In: 1255 Time Out: 1320 Total Billed Treatment Time: 25 Total Billed Treatment 1 visit GT 25 PILLO DAWSON PT Mar 15, 2020 14:13
--- NOTE | 2020-03-15 15:25 | NUR ---
CM/SS CONCURRENT DOCUMENTATION Exploring in-home assistance under patient's [facility]. Advised patient to contact Daniela Ovalle at formerly [facility] to request assessment for eligibility. Provided contact information on discharge instructions for patient written reference.
[2020-03-15 17:29] VITALS: BP 161/68
[2020-03-15 18:08] VITALS: BP 150/72
--- NOTE | 2020-03-15 19:06 | NUR ---
bedside report received from LOY BLEVINS, assume care of pt
[2020-03-15] MEDS: DONEPEZIL 10 MG (ARICEPT) TAB PO SCH (20:27)
[2020-03-15] MEDS: OLANZapine 5 MG (ZyPREXA) TAB PO SCH (20:27)
--- NOTE | 2020-03-15 20:28 | NUR ---
pt took Senokot one not two, pt gets short of air on exertion & feels hot, fan obtained for pt
[2020-03-16] MEDS: RT-ALBUTEROL/IPRATROPIUM 3 ML (DUONEB) VIAL INH SCH ×6 (02:15→21:19)
[2020-03-16] MEDS: HYDROcodone/APAP 5 MG/325 MG (LORTAB) TAB PO PRN ×3 (03:07→13:25)
--- NOTE | 2020-03-16 03:07 | NUR ---
c/o generalized pain in all her joints, pain level 9/10 on numeric scale, Lortab 5 1 tab given
--- NOTE | 2020-03-16 03:55 | NUR ---
resting quietly in bed, pain level 0/10 on CNPI SCALE
[2020-03-16] MEDS: SUCRALFATE 1 GM (CARAFATE) TAB PO SCH ×4 (06:14→20:38)
[2020-03-16] MEDS: CATHETER FLUSH 10 ML SYR IV SCH ×3 (06:14→21:16)
[2020-03-16] MEDS: hydrALAZINE (APRESOLINE) 25 MG TAB PO PRN (06:14)
[2020-03-16 06:42] VITALS: BP 176/74
--- NOTE | 2020-03-16 06:43 | NUR ---
pt refused breathing tx at this time due to eating breakfast. she does not want her breakfast to be interrupted. Addendum: 03/16/20 at 0646 by NILDA WANG RT Amended: Links added.
[2020-03-16 08:15] VITALS: BP 147/70
[2020-03-16] MEDS: CEFDINIR 300 MG (OMNICEF) CAP PO SCH (08:31)
[2020-03-16] MEDS: meTOprolol SUCCINATE 100 MG (TOPROL XL) TAB PO SCH (08:31)
[2020-03-16] MEDS: CYANOCOBALAMIN 1,000 MCG (VITAMIN B-12) TABLET PO SCH (08:31)
[2020-03-16] MEDS: amLODIPine 5 MG (NORVASC) TAB PO SCH (08:32)
[2020-03-16] MEDS: PANTOPRAZOLE 40 MG (PROTONIX) TAB PO SCH ×2 (08:32→20:37)
[2020-03-16] MEDS: IRON SUCROSE 200 MG/10 ML (VENOFER) VIAL IV SCH (08:32)
[2020-03-16] MEDS: SENNA W/DOCUSATE (SENOKOT S) TABLET PO SCH ×2 (08:32→20:37)
[2020-03-16] MEDS: LORATADINE (CLARITIN) 10 MG TAB PO SCH (08:32)
[2020-03-16] MEDS: VITAMIN D3 25 MCG (1,000 UNITS) TABLET PO SCH (08:32)
[2020-03-16] MEDS: FOLIC ACID 1 MG TAB PO SCH (08:32)
[2020-03-16] MEDS: TRIAMCINOLONE 0.1% CR (KENALOG) 80 GM TUBE TP SCH ×2 (08:35→20:42)
--- NOTE | 2020-03-16 08:42 | PM&R Progress Note ---
Subjective HPI/CC On Admission Date Seen by Provider: Mar 16, 2020 Time Seen by Provider: 10:00 Subjective/Events-last exam 03/16/20: Bowels moved today Hydralazine given for elevated BP this morning BiPAP only for two hours last night 97% O2 sat Finishing antibiotics Doing well 03/15/20: Pt has dyspnea on exertion Wears O2 at home all the time 4 liters of O2 required on exertion AST and ALT are 91 and 62 respectively Decreased confusion WBC normal Hgb 9.2 03/14/20: BiPAP until 99 Xanax given for dyspnea but O2 sat was good BM today No pain issues 03/12/20: Zofran given today for nausea PPI and Carafate maintained for gastiritis treatment Complaining about the bland diet Needs biPAP at night and prn during the day for chronic hypercapnia : EGD and colonoscopy done today showing severe gastritis but colonoscopy was normal Rapidly desaturated oxygen-paz when she doesnt wear her oxygen to 67% Maintain on 4L per minute Kenalog cream for psoriasis will be ordered Overall seems to be doing pretty well now Pt is less SOB today after a two days course in ICU maintained on BiPAP and Vapotherm and now nasal cannula Heart rate 120s, I did consult Dr. Fuentes, gave her a dose of 50mg Metoprolol Maintain on 3 liters of oxygen now Will DC catheter Home meds will be restarted today Overall much improved Will change to a regular diet Bowels not moving but she hasnt eaten much Review of Systems General: Fatigue, Malaise Pulmonary: Dyspnea Neurological: Weakness Focused Exam Lactate Level 03/15/20 09:30: Lactic Acid Level 1.46 Objective Exam Vital Signs Vital Signs Date Time Temp Pulse Resp B/P (MAP) Pulse Ox O2 Delivery O2 Flow Rate FiO2 03/17/20 01:32 93 Nasal Cannula 3.00 03/16/20 21:20 67 03/16/20 16:18 36.1 20 152/65 (94) Capillary Refill : Less Than 3 SecondsLess Than 3 Seconds General Appearance: No Apparent Distress, WD/WN, Chronically ill HEENT: PERRL/EOMI, Normal ENT Inspection, Pharynx Normal Neck: Full Range of Motion, Normal Inspection, Non Tender, Supple, Carotid Bruit Respiratory: Chest Non Tender, Lungs Clear, Normal Breath Sounds, No Accessory Muscle Use, No Respiratory Distress, Decreased Breath Sounds Cardiovascular: Regular Rate, Rhythm, No Edema, No Gallop, No JVD, No Murmur, Normal Peripheral Pulses Gastrointestinal: Normal Bowel Sounds, No Organomegaly, No Pulsatile Mass, Non Tender, Soft Back: Normal Inspection, No CVA Tenderness, No Vertebral Tenderness Extremity: Normal Capillary Refill, Normal Inspection, Normal Range of Motion, Non Tender, No Calf Tenderness, No Pedal Edema Neurologic/Psychiatric: Alert, Oriented x3, No Motor/Sensory Deficits, Normal Mood/Affect Skin: Normal Color, Warm/Dry Lymphatic: No Adenopathy Results/Procedures Lab Patient resulted labs reviewed. FIM Transfers Therapy Code Descriptions/Definitions Functional [place] Measure: 0=Not Assessed/NA 4=Minimal Assistance 1=Total Assistance 5=Supervision or Setup 2=Maximal Assistance 6=Modified [place] 3=Moderate Assistance 7=Complete IndependenceSCALE: Activities may be completed with or without assistive devices. 9-Ujykewaaws-okgvemg completes the activity by him/herself with no assistance from a helper. 5-Set-up or Clean-up Assistance-helper sets up or cleans up; patient completes activity. [place] assists only prior to or following the activity. 4-Supervision or Touching Assistance-helper provides verbal cues and/or touching/steadying and/or contact guard assistance as patient completes activity. Assistance may be provided throughout the activity or intermittently. 3-Partial/Moderate Assistance-helper does LESS THAN HALF the effort. [place] lifts, holds or supports trunk or limbs, but provides less than half the effort. 2-Substantial/Maximal Assistance-helper does MORE THAN HALF the effort. [place] lifts or holds trunk or limbs and provides more than half the effort. 6-Qzbfvnyyj-rzqaeb does ALL the effort. Patient does none of the effort to complete the activity. Or, the assistance of 2 or more helpers is required for the patient to complete the activity. If activity was not attempted, code reason: 7-Patient Refused. 9-Not Applicable-not attempted and the patient did not perform the activity before the current illness, exacerbation or injury. 10-Not Attempted due to Environmental Limitations-(lack of equipment, weather restraints, etc.). 88-Not Attempted due to Medical Conditions or Safety Concerns. Roll Left to Right (QC): 6 Sit to Lying (QC): 4 Sit to Stand (QC): 4 Chair/Spj-wa-Tirfc Xfer(QC): 4 Car Transfer (QC): 88 (unable to tolerate this this date. ) Gait Training Does the Patient Walk?: Yes Distance: 100',100', 150', 50' Walk 10 feet (QC): 4 Walk 50 ft with 2 Turns(QC): 4 Walk 150 ft (QC): 4 Walking 10ft/uneven surface-QC: 88 Gait Persons Needed: 1 Gait Assistive Device: FWW Wheelchair Training Does the Pt Use a Wheelchair?: Yes Distance: 50 ft Wheel 50 ft with 2 turns (QC): 1 Wheel 150 ft (QC): 1 Type of Wheelchair: Manual Stair Training 1 Step (curb) (QC): 7 4 Steps (QC): 9 12 Steps (QC): 9 Balance Picking up an Object (QC): 88 ADL-Treatment Eating (QC): 6 (pt independent with eating breakfast per pt report.) Oral Hygiene (QC): 6 (independent seated at sink) Bathing Location: L Arm, R Arm, L Upper Leg, R Upper Leg, L Lower Leg (including foot), R Lower Leg (including foot), Chest, Abdomen, Perineal Area Shower/Bathe Self (QC): 4 (pt requested sponge bath, able to wash all parts with SBA during stand at FWW) Upper Body Dressing (QC): 5 (set up, pt able to don/doff pullover shirt and manage O2 line) Lower Body Dressing (QC): 4 (SBA in stand, pt able to doff/don brief and pants.) On/Off Footwear (QC): 6 (pt able to doff/sondra slip on shoes in sitting.) Toileting Hygiene (QC): 4 (SBA, pt able to manage clothing and perform hygiene) Toilet Transfer (QC): 4 (SBA, pt transferred on/off BSC over toilet) Assessment/Plan Assessment and Plan Assess & Plan/Chief Complaint Assessment: Severe debility due to acute on chronic respiratory failure h/o trach 05/29 h/o PEG tube 05/29 Mental illness precluding fast recovery Former smoker COPD OHS Dementia Plan: Monitor closely Inpatient rehabilitation protocol with therapies Dr Berman consultation appreciated 03/10/20: Restart IRF protocol Transfuse 1 unit of blood Consult Dr Evans may need scope, maintain PPI in meantime Appreciate Dr Fuentes and Dr Berman 03/11/20: Appreciate EGD and Colonoscopy from Dr Evans Gastritis treatment with PPI and Carafate 03/12/20: Bipap at night and prn during day when napping Monitor nausea PPI and Carafate 03/14/20: BiPAP at night and during naps Monitor dyspnea Change IV abx to PO 03/15/20: Maintain oxygen Labs reviewed Patient doing very well 03/16/20: Maintain Bipap at night Completed antibiotics Doing well (1) Debility (2) Acute on chronic respiratory failure Status: Chronic (3) Morbid obesity Status: Acute (4) Generalized weakness Status: Acute (5) Bipolar disorder Status: Chronic (6) Dementia Status: Acute (7) Psoriasis Status: Chronic (8) Hypertension Status: Chronic (9) Lupus Status: Chronic (10) Oxygen dependent Status: Chronic (11) Obesity hypoventilation syndrome (12) Chronic mental illness Status: Chronic (13) Acute on chronic respiratory failure with hypoxia and hypercapnia Status: Acute SAMANTHA COLLIER DO Mar 16, 2020 08:42
--- NOTE | 2020-03-16 10:05 | Physical Therapy Daily Note ---
PT Daily Note-Current Subjective Pt sitting in recliner asleep upon arrival. Pt agrees to PT although initially difficult to keep awake. Pain Numeric Pain Scale: 8 Location: Right, Left Location Body Site: Knee Pain Description: Ache Mental Status Patient Orientation: Person, Place, Situation Attachments: Oxygen (3.5L in room but 4L for tx) Transfers SCALE: Activities may be completed with or without assistive devices. 4-Myykkwpckh-eibvbue completes the activity by him/herself with no assistance from a helper. 5-Set-up or Clean-up Assistance-helper sets up or cleans up; patient completes activity. [place] assists only prior to or following the activity. 4-Supervision or Touching Assistance-helper provides verbal cues and/or touching/steadying and/or contact guard assistance as patient completes activity. Assistance may be provided throughout the activity or intermittently. 3-Partial/Moderate Assistance-helper does LESS THAN HALF the effort. [place] lifts, holds or supports trunk or limbs, but provides less than half the effort. 2-Substantial/Maximal Assistance-helper does MORE THAN HALF the effort. [place] lifts or holds trunk or limbs and provides more than half the effort. 1-Aurcoybnd-wddmah does ALL the effort. Patient does none of the effort to complete the activity. Or, the assistance of 2 or more helpers is required for the patient to complete the activity. If activity was not attempted, code reason: 7-Patient Refused. 9-Not Applicable-not attempted and the patient did not perform the activity befo re the current illness, exacerbation or injury. 10-Not Attempted due to Environmental Limitations-(lack of equipment, weather re straints, etc.). 88-Not Attempted due to Medical Conditions or Safety Concerns. Sit to Stand (QC): 5 Weight Bearing Full Weight Bearing Full Weight Bearing Gait Training Does the Patient Walk?: Yes Distance: 100', 50', 150' Walk 10 feet (QC): 5 Walk 50 ft with 2 Turns(QC): 5 Walk 150 ft (QC): 5 Gait Persons Needed: 1 Gait Assistive Device: FWW Pt fatigues and needs RB due to SOA. Exercises NuStep Minutes: 11 NuStep Workload: 3 Treatments Completed Seated Ex then TF to standing. Use BR before Amb. in hallway with RB as needed. Used NuStep before amb. back to room to rest in recliner. All needs met, call light in hand. Assessment Current Status: Good Progress Pt very drowsy to start tx but after amb. better focus unless sitting too long, then drowsy again. PT Short Term Goals Short Term Goals Time Frame: Mar 22, 2020 Lying to sitting on side of be: 4 Sit to stand: 4 Walk 50 feet with two turns: 4 Wheel 150 feet: 5 PT Skilled Nursing Goals Indoor Landscape Architect Goals PT Indoor Landscape Architect Goals Time Frame: Apr 05, 2020 Roll Left & Right (QC): 6 Sit to Lying (QC): 6 Lying-Sitting on Side/Bed(QC): 6 Sit to Stand (QC): 6 Chair/Zwf-kp-Dfktw Xfer(QC): 6 Toilet Transfer (QC): 6 Car Transfer (QC): 5 Does the Patient Walk: Yes Walk 10 feet (QC): 6 Walk 50ft with 2 Turns (QC): 6 Walk 150 ft (QC): 5 Walking 10ft on Uneven Surface: 5 1 Step (curb) (QC): 4 4 Steps (QC): 9 12 Steps (QC): 9 Picking up an Object (QC): 6 (with a analytical technician) Does the Pt use WC or Scooter?: Yes Wheel 50 feet with 2 turns (QC: 6 Type: Manual Wheel 150 feet: 6 Type: Manual PT Plan Problem List Problem List: Activity Tolerance, Safety, Gait Treatment/Plan Treatment Plan: Continue Plan of Care Treatment Plan: Bed Mobility, Education, Functional Activity Fede, Functional Strength, Group Therapy, Gait, Safety, Therapeutic Exercise, Transfers Treatment Duration: Apr 05, 2020 Frequency: At least 5 of 7 days/Wk (IRF) Estimated Hrs Per Day: Other (pt will achieve 15hrs over 7 days) Patient and/or Family Agrees t: Yes Safety Risks/Education Patient Education: Gait Training, Correct Positioning, Safety Issues Teaching Recipient: Patient Teaching Methods: Discussion Response to Teaching: Verbalize Understanding Time/GCodes Time In: 800 Time Out: 900 Total Billed Treatment Time: 60 Total Billed Treatment 1, GT x2 (25m), EX (15m) & FA (20m) VÍCTOR PALOMARES FAMILY AND CONSUMER SCIENCE PROFESSOR Mar 16, 2020 10:05
--- NOTE | 2020-03-16 10:36 | Speech Therapy Daily Note ---
Speech Daily Progress Note Subjective Date Seen by Provider: Mar 16, 2020 Time Seen by Provider: 00:30 Patient is very tired and difficult to arouse. She did awaken and participated with frequent prompts. Objective Patient completed a series of memory questions of general information at 75% with mod to max cues. Assessment Assessment Current Status: Fair Progress Treatment Plan Continue Plan of Care Speech Short Term Goals Short Term Goals Short Term Goals 1) The patient will complete memory tasks related to her daily needs at 80% or greater with minimal cues. 2) The patient will complete safety awareness tasks related to her daily needs at 80% or greater with minimal cues. 3) The patient will complete problem solving tasks related to her daily needs at 80% or greater with minimal cues. Speech Pulping Machine Operator Goals Pulping Machine Operator Goals The patient will improve her cognitive communication abilities to be able to complete daily tasks with minimal assist. Speech-Plan Patient/Family Goals Patient/Family Goals: Patient plans on returning to her home with family and other support as determined by the rehab team. Treatment Plan Speech Therapy Treatment Plan: Continue Plan of Care Treatment Duration: Mar 24, 2020 Frequency: 4 times per week (Patient will receive ST 4-5x per week) Estimated Hrs Per Day: .5 hour per day Rehab Potential: Fair Barriers to Learning: Patient's medical issues, decline in function, cognitive deficits Pt/Family Agrees to Plan: Yes Safety Risks/Education Teaching Recipient: Patient Teaching Methods: Demonstration, Discussion Response to Teaching: Verbalize Understanding, Return Demonstration Education Topics Provided: Continued safety within her room, communication of wants/needs Time Speech Therapy Time In: 10:00 Speech Therapy Time Out: 10:30 Total Billed Time: 30 Billed Treatment Time 1, MAGUE Rubin Mar 16, 2020 10:36
[2020-03-16] MEDS: ADVAIR HFA 115/21 MCG INHALER 8 GM IH SCH ×2 (10:38→18:03)
[2020-03-16] MEDS: ENOXAPARIN 40 MG/0.4 ML (LOVENOX) SYR SC SCH ×2 (11:17→23:36)
--- NOTE | 2020-03-16 12:01 | Occupational Ther Daily Note ---
OT Current Status-Daily Note Subjective Pt seated in recliner, requests shower. ADL-Treatment Therapy Code Descriptions/Definitions Functional [place] Measure: 0=Not Assessed/NA 4=Minimal Assistance 1=Total Assistance 5=Supervision or Setup 2=Maximal Assistance 6=Modified [place] 3=Moderate Assistance 7=Complete IndependenceSCALE: Activities may be completed with or without assistive devices. 9-Atruxjtwvi-zgkjwlj completes the activity by him/herself with no assistance from a helper. 5-Set-up or Clean-up Assistance-helper sets up or cleans up; patient completes activity. [place] assists only prior to or following the activity. 4-Supervision or Touching Assistance-helper provides verbal cues and/or touching/steadying and/or contact guard assistance as patient completes activity. Assistance may be provided throughout the activity or intermittently. 3-Partial/Moderate Assistance-helper does LESS THAN HALF the effort. [place] lifts, holds or supports trunk or limbs, but provides less than half the effort. 2-Substantial/Maximal Assistance-helper does MORE THAN HALF the effort. [place] lifts or holds trunk or limbs and provides more than half the effort. 4-Pocplpssf-gwzbbt does ALL the effort. Patient does none of the effort to c omplete the activity. Or, the assistance of 2 or more helpers is required for the patient to complete the activity. If activity was not attempted, code reason: 7-Patient Refused. 9-Not Applicable-not attempted and the patient did not perform the activity before the current illness, exacerbation or injury. 10-Not Attempted due to Environmental Limitations-(lack of equipment, weather restraints, etc.). 88-Not Attempted due to Medical Conditions or Safety Concerns. Eating (QC): 6 Oral Hygiene (QC): 6 (independent seated in w/c at sink) Shower/Bathe Self (QC): 4 (Pt able to wash all parts seated, required verbal cue to wash feet) Upper Body Dressing (QC): 5 (set up) Lower Body Dressing (QC): 4 (SBA in stand at FWW) On/Off Footwear: 6 Toileting Hygiene (QC): 4 (SBA) Toilet Transfer (QC): 4 (SBA) Other Treatment Pt seated in recliner, used FWW to ambulate into restroom and onto shower chair. Pt completed showering, then requested to use the restroom. Once pt dried off, she independently donned shoes and used FWW to transfer to toilet, SBA. Pt completed toileting and dressing at toilet. Pt then used FWW to go to sink, encouragement for pt to attempt tasks in standing, pt able to wash her hands standing at FWW with SBA. Pt then sat in w/c to brush her hair and teeth independently. Pt required moderate encouragement throughout tx to complete tasks herself, as she wants therapist to assist her with ADLs. Pt used FWW to return to recliner, SBA. Post OT tx, pt seated in recliner, call light in reach and all needs met. Education OT Patient Education: Correct positioning, Energy conservation, Modified ADL techniques, Progress toward Goal/Update tx plan, Purpose of tx/functional activities, Safety issues, Transfer techniques Teaching Recipient: Patient Teaching Methods: Discussion Response to Teaching: Verbalize Understanding OT Short Term Goals Short Term Goals Time Frame: Mar 19, 2020 Shower/bathe self: 4 Lower body dressin Putting on/taking off footwear: 4 OT Prison Goals Prison Goals Time Frame: Apr 02, 2020 Eating (QC): 6 Oral Hygiene (QC): 6 Toileting Hygiene (QC): 6 Shower/Bathe Self (QC): 6 Upper Body Dressing (QC): 6 Lower Body Dressing (QC): 6 On/Off Footwear (QC): 6 Additional Goals: 1-Demonstrate ADL Tasks, 2-Verbalize Understanding, 3- ImproveStrength/Fede 1=Demonstrate adherence to instructed precautions during ADL tasks. 2=Patient will verbalize/demonstrate understanding of assistive devices/modifications for ADL. 3=Patient will improve strength/tolerance for activity to enable patient to perform ADL's. OT Education/Plan Problem List/Assessment Assessment: Decreased Activ Tolerance, Decreased UE Strength, Impaired I ADL's, Impaired Self-Care Skills Discharge Recommendations Plan/Recommendations: Continue POC Treatment Plan/Plan of Care Patient would benefit from OT for education, treatment and training to promote independence in ADL's, mobility, safety and/or upper extremity function for ADL's. Plan of Care: ADL Retraining, Functional Mobility, Group Exercise/Act as Ind, UE Funct Exercise/Act, W/C Management Training Treatment Duration: Apr 02, 2020 Frequency: Modified Program (IRF) (23/12) Estimated Hrs Per Day: .25 hour per day Agreement: Yes Rehab Potential: Fair Time/GCodes Start Time: 10:30 Stop Time: 11:45 Total Time Billed (hr/min): 75 Billed Treatment Time 1, ADL 5 GAMA DIEGO OT Mar 16, 2020 12:01
--- NOTE | 2020-03-16 12:27 | Pulmonary Progress Note ---
Subjective Time Seen by a Provider: 12:26 Sepsis Event Evaluation Height, Weight, BMI Height: 5'7.50" Weight: 200lbs. 1.0oz. [id number]; 41.13 BMI Method:Stated Focused Exam Lactate Level 03/15/20 09:30: Lactic Acid Level 1.46 Exam Exam Vital Signs Date Time Temp Pulse Resp B/P (MAP) Pulse Ox O2 Delivery O2 Flow Rate FiO2 03/16/20 10:39 92 Nasal Cannula 3.00 03/16/20 09:00 Nasal Cannula 3.50 03/16/20 08:15 147/70 (95) 97 Nasal Cannula 3.50 03/16/20 06:44 92 Nasal Cannula 3.00 03/16/20 06:42 36.2 82 20 176/74 (108) 95 Nasal Cannula 3.50 03/16/20 02:15 92 Nasal Cannula 3.00 03/15/20 21:12 81 96 40.00 03/15/20 20:29 Nasal Cannula 3.50 03/15/20 18:33 96 Nasal Cannula 3.00 03/15/20 18:08 150/72 (98) 03/15/20 17:29 36.9 74 18 161/68 (99) 96 Nasal Cannula 3.50 I & O 03/16/20 07:00 Intake Total 1822 ml Balance 1822 ml Height & Weight Height: 5'7.50" Weight: 200lbs. 1.0oz. 90.173251cf; 41.13 BMI Method:Stated General Appearance: No Apparent Distress, WD/WN, Chronically ill HEENT: PERRL/EOMI, Normal ENT Inspection, Pharynx Normal Neck: Full Range of Motion, Normal Inspection, Non Tender, Supple, Carotid Bruit Respiratory: Chest Non Tender, Lungs Clear, Normal Breath Sounds, No Accessory Muscle Use, No Respiratory Distress, Decreased Breath Sounds Cardiovascular: Regular Rate, Rhythm, No Edema, No Gallop, No JVD, No Murmur, Normal Peripheral Pulses Capillary Refill: Less Than 3 Seconds Extremity: Normal Capillary Refill, Normal Inspection, Normal Range of Motion, Non Tender, No Calf Tenderness, No Pedal Edema Neurologic/Psychiatric: Alert, Oriented x3, No Motor/Sensory Deficits, Normal Mood/Affect Skin: Normal Color, Warm/Dry Lymphatic: No Adenopathy Results Lab Laboratory Tests 03/15/20 06:10 Assessment/Plan Assessment/Plan Acute on chronic respiratory failure -- Notified by RN pt is having more SOB -. Currently on 3 liter NC with SP02 95% -Increase Duoneb from BID to Q 4 hours and Q 2 PRN Obesity with OHS -BiPAP QHS and PRN Atelectasis r/o PNA -currently on Cefepime. -COVID swab negative Anemia s/p tranfusion Debilty -PT/OT MERCEDES GARZA DO Mar 16, 2020 12:27
--- NOTE | 2020-03-16 13:39 | NUR ---
CM/SS CONCURRENT DOCUMENTATION Visited with patient to explore her report of her status pertaining to discharge planning. Patient appears drowsy and difficult to keep engaged without closing eyes and drifting. Opened discussion about potential exploration of in-home services. Patient clarified she does not have Medicaid, but rather she has a supplement to her Medicare from [facility]. Patient is aware of the Care Home Act through [facility] and she indicates she applied one of her last hospital stays to see if she would qualify. She apparently did not and, while she did not elaborate as to why not, she stated she was not interested in pursuing this again. Will review patient in patient care conference tomorrow, appreciate the recommendations of the team regarding target discharge.
--- NOTE | 2020-03-16 14:07 | Physical Therapy Daily Note ---
PT Daily Note-Current Subjective Pt just finishing visiting with SW upon arrival. Pt agrees to PT. Pain Numeric Pain Scale: 9 Location: Anterior Location Body Site: Head Pain Description: Ache Comment: Pt reports headache & pain in B knees. Mental Status Patient Orientation: Person, Place Attachments: Oxygen (3.5L) Transfers SCALE: Activities may be completed with or without assistive devices. 8-Iqovhjhvyv-sbholdf completes the activity by him/herself with no assistance from a helper. 5-Set-up or Clean-up Assistance-helper sets up or cleans up; patient completes activity. [place] assists only prior to or following the activity. 4-Supervision or Touching Assistance-helper provides verbal cues and/or touching/steadying and/or contact guard assistance as patient completes activity. Assistance may be provided throughout the activity or intermittently. 3-Partial/Moderate Assistance-helper does LESS THAN HALF the effort. [place] lifts, holds or supports trunk or limbs, but provides less than half the effort. 2-Substantial/Maximal Assistance-helper does MORE THAN HALF the effort. [place] lifts or holds trunk or limbs and provides more than half the effort. 5-Ywxeecibs-lhvpyk does ALL the effort. Patient does none of the effort to complete the activity. Or, the assistance of 2 or more helpers is required for the patient to complete the activity. If activity was not attempted, code reason: 7-Patient Refused. 9-Not Applicable-not attempted and the patient did not perform the activity before the current illness, exacerbation or injury. 10-Not Attempted due to Environmental Limitations-(lack of equipment, weather restraints, etc.). 88-Not Attempted due to Medical Conditions or Safety Concerns. Weight Bearing Full Weight Bearing Full Weight Bearing Treatments Reviewed Supine & Seated HEP. Pt resting in recliner at end of tx. All needs met, call light in hand. Assessment Current Status: Fair Progress Pt again very drowsy and difficult to keep awake. PT Short Term Goals Short Term Goals Time Frame: Mar 22, 2020 Lying to sitting on side of be: 4 Sit to stand: 4 Walk 50 feet with two turns: 4 Wheel 150 feet: 5 PT Lens Assistant Goals [facility] Goals PT [facility] Goals Time Frame: Apr 05, 2020 Roll Left & Right (QC): 6 Sit to Lying (QC): 6 Lying-Sitting on Side/Bed(QC): 6 Sit to Stand (QC): 6 Chair/Pgp-mj-Obtqk Xfer(QC): 6 Toilet Transfer (QC): 6 Car Transfer (QC): 5 Does the Patient Walk: Yes Walk 10 feet (QC): 6 Walk 50ft with 2 Turns (QC): 6 Walk 150 ft (QC): 5 Walking 10ft on Uneven Surface: 5 1 Step (curb) (QC): 4 4 Steps (QC): 9 12 Steps (QC): 9 Picking up an Object (QC): 6 (with a cell tuber hand) Does the Pt use WC or Scooter?: Yes Wheel 50 feet with 2 turns (QC: 6 Type: Manual Wheel 150 feet: 6 Type: Manual PT Plan Problem List Problem List: Activity Tolerance Treatment/Plan Treatment Plan: Continue Plan of Care Treatment Plan: Bed Mobility, Education, Functional Activity Fede, Functional Strength, Group Therapy, Gait, Safety, Therapeutic Exercise, Transfers Treatment Duration: Apr 05, 2020 Frequency: At least 5 of 7 days/Wk (IRF) Estimated Hrs Per Day: Other (pt will achieve 15hrs over 7 days) Patient and/or Family Agrees t: Yes Safety Risks/Education Patient Education: Issued Written HEP Teaching Recipient: Patient Teaching Methods: Demonstration, Discussion Response to Teaching: Verbalize Understanding, Return Demonstration Time/GCodes Time In: 1300 Time Out: 1315 Total Billed Treatment Time: 15 Total Billed Treatment 1, FA (15m) VÍCTOR PALOMARES PTA Mar 16, 2020 14:07
[2020-03-16 16:18] VITALS: BP 152/65
--- NOTE | 2020-03-16 19:04 | NUR ---
bedside report received from MARY BLEVINS, assume care of pt
[2020-03-16] MEDS: DONEPEZIL 10 MG (ARICEPT) TAB PO SCH (20:38)
[2020-03-16] MEDS: OLANZapine 5 MG (ZyPREXA) TAB PO SCH (20:38)
--- NOTE | 2020-03-16 20:38 | NUR ---
pt took one [place] instead of two, up to bathroom with one person assist & walker
[2020-03-17] MEDS: RT-ALBUTEROL/IPRATROPIUM 3 ML (DUONEB) VIAL INH SCH ×5 (01:32→22:30)
[2020-03-17] MEDS: CATHETER FLUSH 10 ML SYR IV SCH ×3 (05:54→21:45)
[2020-03-17] MEDS: hydrALAZINE (APRESOLINE) 25 MG TAB PO PRN ×2 (05:54→15:40)
[2020-03-17] MEDS: SUCRALFATE 1 GM (CARAFATE) TAB PO SCH ×4 (05:54→21:36)
[2020-03-17 06:12] VITALS: BP 169/73
[2020-03-17] MEDS: CYANOCOBALAMIN 1,000 MCG (VITAMIN B-12) TABLET PO SCH (08:34)
[2020-03-17] MEDS: FOLIC ACID 1 MG TAB PO SCH (08:34)
[2020-03-17] MEDS: amLODIPine 5 MG (NORVASC) TAB PO SCH (08:34)
[2020-03-17] MEDS: meTOprolol SUCCINATE 100 MG (TOPROL XL) TAB PO SCH (08:35)
[2020-03-17] MEDS: VITAMIN D3 25 MCG (1,000 UNITS) TABLET PO SCH (08:35)
[2020-03-17] MEDS: LORATADINE (CLARITIN) 10 MG TAB PO SCH (08:35)
[2020-03-17] MEDS: HYDROcodone/APAP 5 MG/325 MG (LORTAB) TAB PO PRN ×2 (08:35→15:40)
[2020-03-17] MEDS: PANTOPRAZOLE 40 MG (PROTONIX) TAB PO SCH ×2 (08:35→21:37)
[2020-03-17] MEDS: SENNA W/DOCUSATE (SENOKOT S) TABLET PO SCH ×2 (08:44→21:33)
--- NOTE | 2020-03-17 08:46 | Cardiology Progress Note ---
Subjective Date Seen by Provider: Mar 17, 2020 Time Seen by Provider: 08:30 Subjective/Events-last exam Patient is with PT, denies any chest pain. C/o fatigue and dyspnea with exertion Review of Systems General: No Chills, No Night Sweats, No Fatigue, No Malaise, No Appetite, No Other HEENT: No Head Aches, No Visual Changes, No Eye Pain, No Ear Pain, No Dysphasia, No Sinus Congestion, No Post Nasal Drip, No Sore Throat, No Other Pulmonary: No Dyspnea, No Cough, No Pleuritic Chest Pain, No Other Cardiovascular: No: Chest Pain, Palpitations, Orthopnea, Paroxysmal Noc. Dyspnea, Edema, Lt Headedness, Other Focused Exam Lactate Level 03/15/20 09:30: Lactic Acid Level 1.46 Objective-Cardiology Exam Last Set of Vital Signs Vital Signs 03/17/20 03/17/20 06:12 14:06 Temp 36.2 Pulse 77 Resp 18 B/P (MAP) 169/73 (105) Pulse Ox 98 O2 Delivery Nasal Cannula O2 Flow Rate 3.00 Capillary Refill : Less Than 3 SecondsLess Than 3 Seconds I&O Intake and Output 03/17/20 00:00 Intake Total 1572 ml Balance 1572 ml Intake Oral 1572 ml # Voids 10 General: Alert, Oriented X3, Cooperative HEENT: Atraumatic, PERRLA Neck: Supple, No JVD, No Thyromegaly Lungs: Clear to Auscultation, Normal Air Movement Heart: Regular Rate, Normal S1, Normal S2, No Murmurs Abdomen: Normal Bowel Sounds, Soft, No Tenderness, No Hepatosplenomegaly, No Masses Extremities: No Clubbing, No Cyanosis, No Edema, Normal Pulses, No Tenderness/Swelling Skin: No Rashes, No Breakdown, No Significant Lesion Neuro: Normal Gait, Normal Speech, Strength at 5/5 X4 Ext, Normal Tone, Sensation Intact Psych/Mental Status: Mental Status NL, Mood NL A/P-Cardiology Admission Diagnosis Pneumonia Anemia HTN HLP Assessment/Plan Pneumonia - improving, management per pulmonary services Anemia secondary to GI bleed - management per medical/surgical services - improving S/P endoscopies on Mar 11, [address] Evans - GERD, severe gastritis and hemorrh oids HTN, elevated, continue to monitor. Consider adding MIKI-I/ARB if continues to be elevated. HLP, monitored as outpatient. COPD/DUDLEY, followed by Dr. Berman History of diverticulitis with colon resection in the past GERD Morbid obsesity Lupus Psoriasis Patient was seen and evaluated with Lachelle, examination performed, management plan was discussed, agree with the current scribed note, I made few changes to the note using Italic font Patient is sitting comfortably in a chair, talking on the phone No change to her current medication. Continue to monitor Clinical Quality Measures DVT/VTE Risk/Contraindication: Risk Factor Score Per Nursin RFS Level Per Nursing on Admit: 4+=Very High LACHELLE VILA Mar 17, 2020 08:46 LORIE MATOS MD Mar 17, 2020 15:29
--- NOTE | 2020-03-17 09:07 | Physical Therapy Daily Note ---
PT Daily Note-Current Subjective Pt asleep in recliner upon arrival. Pt agrees to PT. Pt appears a little less drowsy this morning. Pain Numeric Pain Scale: 5-Moderate Pain Location: Right, Left Location Body Site: Shoulder Pain Description: Ache Comment: Pt reports pain in B shoulders & knees. Mental Status Patient Orientation: Person, Place, Situation Attachments: Oxygen (3.5L in room and 4L with tx) Transfers SCALE: Activities may be completed with or without assistive devices. 0-Rmsdbtfxcs-ypedxme completes the activity by him/herself with no assistance from a helper. 5-Set-up or Clean-up Assistance-helper sets up or cleans up; patient completes activity. [place] assists only prior to or following the activity. 4-Supervision or Touching Assistance-helper provides verbal cues and/or touching/steadying and/or contact guard assistance as patient completes activ ity. Assistance may be provided throughout the activity or intermittently. 3-Partial/Moderate Assistance-helper does LESS THAN HALF the effort. [place] lifts, holds or supports trunk or limbs, but provides less than half the effort. 2-Substantial/Maximal Assistance-helper does MORE THAN HALF the effort. [place] lifts or holds trunk or limbs and provides more than half the effort. 5-Xmfinzvqq-kbrwzb does ALL the effort. Patient does none of the effort to complete the activity. Or, the assistance of 2 or more helpers is required for the patient to complete the activity. If activity was not attempted, code reason: 7-Patient Refused. 9-Not Applicable-not attempted and the patient did not perform the activity before the current illness, exacerbation or injury. 10-Not Attempted due to Environmental Limitations-(lack of equipment, weather restraints, etc.). 88-Not Attempted due to Medical Conditions or Safety Concerns. Sit to Stand (QC): 5 Toilet Transfer (QC): 5 Weight Bearing Full Weight Bearing Full Weight Bearing Gait Training Does the Patient Walk?: Yes Distance: 150' x2 Walk 10 feet (QC): 5 Walk 50 ft with 2 Turns(QC): 5 Walk 150 ft (QC): 5 Gait Persons Needed: 1 Gait Assistive Device: FWW Pt fatigues, [facility] follows pt to take RB. Exercises Seated Therapy Exercises: Ankle pumps, Long arc quads, Hip flexion, Kicking activity, Hip abd/add, Glut set Seated Reps: 15 Treatments TF to standing then amb. in hallway, taking RB as needed. Completes Seated EX before amb. in hallway, needing to return to room for BR use. Returns to recliner where RIBBON HANKING MACHINE OPERATOR assists with positioning, all needs met including call light in hand. Assessment Current Status: Fair Progress Pt fatigues and needs RB to recover. Pt also reports SOA even on 4L during tx. PT Short Term Goals Short Term Goals Time Frame: Mar 22, 2020 Lying to sitting on side of be: 4 Sit to stand: 4 Walk 50 feet with two turns: 4 Wheel 150 feet: 5 PT Technical Intern Goals Technical Intern Goals PT Technical Intern Goals Time Frame: Apr 05, 2020 Roll Left & Right (QC): 6 Sit to Lying (QC): 6 Lying-Sitting on Side/Bed(QC): 6 Sit to Stand (QC): 6 Chair/Xwx-jp-Klyza Xfer(QC): 6 Toilet Transfer (QC): 6 Car Transfer (QC): 5 Does the Patient Walk: Yes Walk 10 feet (QC): 6 Walk 50ft with 2 Turns (QC): 6 Walk 150 ft (QC): 5 Walking 10ft on Uneven Surface: 5 1 Step (curb) (QC): 4 4 Steps (QC): 9 12 Steps (QC): 9 Picking up an Object (QC): 6 (with a manhole builder) Does the Pt use WC or Scooter?: Yes Wheel 50 feet with 2 turns (QC: 6 Type: Manual Wheel 150 feet: 6 Type: Manual PT Plan Problem List Problem List: Activity Tolerance, Functional Strength, Gait Treatment/Plan Treatment Plan: Continue Plan of Care Treatment Plan: Bed Mobility, Education, Functional Activity Fede, Functional Strength, Group Therapy, Gait, Safety, Therapeutic Exercise, Transfers Treatment Duration: Apr 05, 2020 Frequency: At least 5 of 7 days/Wk (IRF) Estimated Hrs Per Day: Other (pt will achieve 15hrs over 7 days) Patient and/or Family Agrees t: Yes Safety Risks/Education Patient Education: Gait Training, Correct Positioning, Safety Issues Teaching Recipient: Patient Teaching Methods: Discussion Response to Teaching: Verbalize Understanding Time/GCodes Time In: 800 Time Out: 900 Total Billed Treatment Time: 60 Total Billed Treatment 1, GT x2 (25m), FA (15m) & EX (20m) VÍCTOR PALOMARES RIBBON HANKING MACHINE OPERATOR Mar 17, 2020 09:07
--- NOTE | 2020-03-17 09:13 | PM&R Progress Note ---
Subjective HPI/CC On Admission Date Seen by Provider: Mar 17, 2020 Time Seen by Provider: 10:00 Subjective/Events-last exam 03/17/20: Pt only used BiPAP for a couple of hours last night Restarting Metformin Hydralazine used for elevated BP Bowels moved three times already today 03/16/20: Bowels moved today Hydralazine given for elevated BP this morning BiPAP only for two hours last night 97% O2 sat Finishing antibiotics Doing well 03/15/20: Pt has dyspnea on exertion Wears O2 at home all the time 4 liters of O2 required on exertion AST and ALT are 91 and 62 respectively Decreased confusion WBC normal Hgb 9.2 03/14/20: BiPAP until 99 Xanax given for dyspnea but O2 sat was good BM today No pain issues 03/12/20: Zofran given today for nausea PPI and Carafate maintained for gastiritis treatment Complaining about the bland diet Needs biPAP at night and prn during the day for chronic hypercapnia : EGD and colonoscopy done today showing severe gastritis but colonoscopy was normal Rapidly desaturated oxygen-paz when she doesnt wear her oxygen to 67% Maintain on 4L per minute Kenalog cream for psoriasis will be ordered Overall seems to be doing pretty well now Pt is less SOB today after a two days course in ICU maintained on BiPAP and Vapotherm and now nasal cannula Heart rate 120s, I did consult Dr. Fuentes, gave her a dose of 50mg Metoprolol Maintain on 3 liters of oxygen now Will DC catheter Home meds will be restarted today Overall much improved Will change to a regular diet Bowels not moving but she hasnt eaten much Review of Systems General: Fatigue, Malaise Neurological: Weakness Focused Exam Lactate Level 03/15/20 09:30: Lactic Acid Level 1.46 Objective Exam Vital Signs Vital Signs Date Time Temp Pulse Resp B/P (MAP) Pulse Ox O2 Delivery O2 Flow Rate FiO2 03/17/20 20:26 98 Nasal Cannula 3.00 03/17/20 19:00 82 182/86 (118) 03/17/20 17:00 36.0 18 Capillary Refill : Less Than 3 SecondsLess Than 3 Seconds General Appearance: No Apparent Distress, WD/WN, Chronically ill HEENT: PERRL/EOMI, Normal ENT Inspection, Pharynx Normal Neck: Full Range of Motion, Normal Inspection, Non Tender, Supple, Carotid Bruit Respiratory: Chest Non Tender, Lungs Clear, Normal Breath Sounds, No Accessory Muscle Use, No Respiratory Distress, Decreased Breath Sounds Cardiovascular: Regular Rate, Rhythm, No Edema, No Gallop, No JVD, No Murmur, Normal Peripheral Pulses Gastrointestinal: Normal Bowel Sounds, No Organomegaly, No Pulsatile Mass, Non Tender, Soft Back: Normal Inspection, No CVA Tenderness, No Vertebral Tenderness Extremity: Normal Capillary Refill, Normal Inspection, Normal Range of Motion, Non Tender, No Calf Tenderness, No Pedal Edema Neurologic/Psychiatric: Alert, Oriented x3, No Motor/Sensory Deficits, Normal Mood/Affect Skin: Normal Color, Warm/Dry Lymphatic: No Adenopathy Results/Procedures Lab Patient resulted labs reviewed. FIM Transfers Therapy Code Descriptions/Definitions Functional [place] Measure: 0=Not Assessed/NA 4=Minimal Assistance 1=Total Assistance 5=Supervision or Setup 2=Maximal Assistance 6=Modified [place] 3=Moderate Assistance 7=Complete IndependenceSCALE: Activities may be completed with or without assistive devices. 4-Frbgszuivm-ntaokgq completes the activity by him/herself with no assistance from a helper. 5-Set-up or Clean-up Assistance-helper sets up or cleans up; patient completes activity. [place] assists only prior to or following the activity. 4-Supervision or Touching Assistance-helper provides verbal cues and/or touching/steadying and/or contact guard assistance as patient completes activity. Assistance may be provided throughout the activity or intermittently. 3-Partial/Moderate Assistance-helper does LESS THAN HALF the effort. [place] lifts, holds or supports trunk or limbs, but provides less than half the effort. 2-Substantial/Maximal Assistance-helper does MORE THAN HALF the effort. [place] lifts or holds trunk or limbs and provides more than half the effort. 5-Wblugfnpb-njsvzr does ALL the effort. Patient does none of the effort to complete the activity. Or, the assistance of 2 or more helpers is required for the patient to complete the activity. If activity was not attempted, code reason: 7-Patient Refused. 9-Not Applicable-not attempted and the patient did not perform the activity before the current illness, exacerbation or injury. 10-Not Attempted due to Environmental Limitations-(lack of equipment, weather restraints, etc.). 88-Not Attempted due to Medical Conditions or Safety Concerns. Roll Left to Right (QC): 6 Sit to Lying (QC): 4 Sit to Stand (QC): 5 Chair/Zhl-bu-[place]bale Xfer(QC): 4 Car Transfer (QC): 88 (unable to tolerate this this date. ) Gait Training Does the Patient Walk?: Yes Distance: 100', 50', 150' Walk 10 feet (QC): 5 Walk 50 ft with 2 Turns(QC): 5 Walk 150 ft (QC): 5 Walking 10ft/uneven surface-QC: 88 Gait Persons Needed: 1 Gait Assistive Device: FWW Wheelchair Training Does the Pt Use a Wheelchair?: Yes Distance: 50 ft Wheel 50 ft with 2 turns (QC): 1 Wheel 150 ft (QC): 1 Type of Wheelchair: Manual Stair Training 1 Step (curb) (QC): 7 4 Steps (QC): 9 12 Steps (QC): 9 Balance Picking up an Object (QC): 88 ADL-Treatment Eating (QC): 6 Oral Hygiene (QC): 6 (independent seated in w/c at sink) Bathing Location: L Arm, R Arm, L Upper Leg, R Upper Leg, L Lower Leg (including foot), R Lower Leg (including foot), Chest, Abdomen, Perineal Area Shower/Bathe Self (QC): 4 (Pt able to wash all parts seated, required verbal cue to wash feet) Upper Body Dressing (QC): 5 (set up) Lower Body Dressing (QC): 4 (SBA in stand at FWW) On/Off Footwear (QC): 6 Toileting Hygiene (QC): 4 (SBA) Toilet Transfer (QC): 4 (SBA) Assessment/Plan Assessment and Plan Assess & Plan/Chief Complaint Assessment: Severe debility due to acute on chronic respiratory failure h/o trach 05/29 h/o PEG tube 05/29 Mental illness precluding fast recovery Former smoker COPD OHS Dementia Plan: Monitor closely Inpatient rehabilitation protocol with therapies Dr Berman consultation appreciated 03/10/20: Restart IRF protocol Transfuse 1 unit of blood Consult Dr Evans may need scope, maintain PPI in meantime Appreciate Dr Fuentes and Dr Berman 03/11/20: Appreciate EGD and Colonoscopy from Dr Evans Gastritis treatment with PPI and Carafate 03/12/20: Bipap at night and prn during day when napping Monitor nausea PPI and Carafate 03/14/20: BiPAP at night and during naps Monitor dyspnea Change IV abx to PO 03/15/20: Maintain oxygen Labs reviewed Patient doing very well 03/16/20: Maintain Bipap at night Completed antibiotics Doing well 03/17/20: Have medical supply evaluate her CPAP machine Restart Metformin Bowels are moving very well today (1) Debility (2) Acute on chronic respiratory failure Status: Chronic (3) Morbid obesity Status: Acute (4) Generalized weakness Status: Acute (5) Bipolar disorder Status: Chronic (6) Dementia Status: Acute (7) Psoriasis Status: Chronic (8) Hypertension Status: Chronic (9) Lupus Status: Chronic (10) Oxygen dependent Status: Chronic (11) Obesity hypoventilation syndrome (12) Chronic mental illness Status: Chronic (13) Acute on chronic respiratory failure with hypoxia and hypercapnia Status: Acute SAMANTHA COLLIER DO Mar 17, 2020 09:13
--- NOTE | 2020-03-17 10:00 | NUR ---
HAS BEEN ON BIPAP AT THIS ADMISSION. ON CPAP AT HOME. WILL CLARIFY WITH DR. GARZA WHAT SHE SHOULD BE ON PRIOR TO DISCHARGE. STATES URINARY URGENCY, BUT DENIES OTHER URINARY SYMPTOMS.
--- NOTE | 2020-03-17 10:16 | Occupational Ther Daily Note ---
OT Current Status-Daily Note Subjective Pt seated in recliner, requests tx with focus on showering. ADL-Treatment Therapy Code Descriptions/Definitions Functional [place] Measure: 0=Not Assessed/NA 4=Minimal Assistance 1=Total Assistance 5=Supervision or Setup 2=Maximal Assistance 6=Modified [place] 3=Moderate Assistance 7=Complete IndependenceSCALE: Activities may be completed with or without assistive devices. 8-Juijgsjlun-klfmduu completes the activity by him/herself with no assistance from a helper. 5-Set-up or Clean-up Assistance-helper sets up or cleans up; patient completes activity. [place] assists only prior to or following the activity. 4-Supervision or Touching Assistance-helper provides verbal cues and/or touching/steadying and/or contact guard assistance as patient completes activity. Assistance may be provided throughout the activity or intermittently. 3-Partial/Moderate Assistance-helper does LESS THAN HALF the effort. [place] lifts, holds or supports trunk or limbs, but provides less than half the effort. 2-Substantial/Maximal Assistance-helper does MORE THAN HALF the effort. [place] lifts or holds trunk or limbs and provides more than half the effort. 2-Bopffmsed-wazzax does ALL the effort. Patient does none of the effort to complete the activity. Or, the assistance of 2 or more helpers is required for the patient to complete the activity. If activity was not attempted, code reason: 7-Patient Refused. 9-Not Applicable-not attempted and the patient did not perform the activity before the current illness, exacerbation or injury. 10-Not Attempted due to Environmental Limitations-(lack of equipment, weather restraints, etc.). 88-Not Attempted due to Medical Conditions or Safety Concerns. Eating (QC): 6 Oral Hygiene (QC): 6 (seated at sink) Shower/Bathe Self (QC): 5 (set up, pt able to wash/dry all parts) Upper Body Dressing (QC): 5 (set up, pt able to don pullover shirt and manage O2) Lower Body Dressing (QC): 4 (supervision, pt able to doff briefs, don briefs/pants. Cue to manage O2 while donning) On/Off Footwear: 6 (independent donning slip on shoes) Toileting Hygiene (QC): 4 (supervision, pt able to complete hygiene and manage clothes) Toilet Transfer (QC): 4 (supervision on/off BSC over toilet) Other Treatment Pt seated in recliner, agreeable to OT tx. Pt requests shower on this date. Pt used FWW to ambulate into restroom, completed toileting, then transferred on HI. Pt completed showering and dressing at SC, then transferred to w/c to sit at the sink for oral care and hair brushing. Pt self-propelled w/c to therapy gym. In order to increase BUE fine motor strength and coordination, pt completed fine motor task with moderate resistance theraputty, pt instructed to remove beads from putty. During functional mobility around pt's room, pt required moderate cues in order to safely maneuver with/around O2 line. After activity, pt self propelled back to her room, using FWW to transfer to recliner. Post OT tx, pt seated in recliner, call light in reach and all needs met. Education OT Patient Education: Correct positioning, Energy conservation, Modified ADL techniques, Progress toward Goal/Update tx plan, Purpose of tx/functional activities, Rehab process, Safety issues Teaching Recipient: Patient Teaching Methods: Discussion Response to Teaching: Verbalize Understanding OT Short Term Goals Short Term Goals Time Frame: Mar 19, 2020 Shower/bathe self: 4 Lower body dressin Putting on/taking off footwear: 4 OT Prison Goals Prison Goals Time Frame: Apr 02, 2020 Eating (QC): 6 Oral Hygiene (QC): 6 Toileting Hygiene (QC): 6 Shower/Bathe Self (QC): 6 Upper Body Dressing (QC): 6 Lower Body Dressing (QC): 6 On/Off Footwear (QC): 6 Additional Goals: 1-Demonstrate ADL Tasks, 2-Verbalize Understanding, 3- ImproveStrength/Fede 1=Demonstrate adherence to instructed precautions during ADL tasks. 2=Patient will verbalize/demonstrate understanding of assistive devices/modifications for ADL. 3=Patient will improve strength/tolerance for activity to enable patient to perform ADL's. OT Education/Plan Problem List/Assessment Assessment: Decreased Activ Tolerance, Decreased Safety Aware, Decreased UE Strength, Impaired Funct Balance, Impaired I ADL's Discharge Recommendations Plan/Recommendations: Continue POC Treatment Plan/Plan of Care Patient would benefit from OT for education, treatment and training to promote independence in ADL's, mobility, safety and/or upper extremity function for AD L's. Plan of Care: ADL Retraining, Functional Mobility, Group Exercise/Act as Ind, UE Funct Exercise/Act, W/C Management Training Treatment Duration: Apr 02, 2020 Frequency: Modified Program (IRF) (23/12) Estimated Hrs Per Day: .25 hour per day Agreement: Yes Rehab Potential: Fair Time/GCodes Start Time: 09:15 Stop Time: 10:30 Total Time Billed (hr/min): 75 Billed Treatment Time 1, ADL (60'), FA (15') GAMA DIEGO OT Mar 17, 2020 10:16
[2020-03-17] MEDS: TRIAMCINOLONE 0.1% CR (KENALOG) 80 GM TUBE TP SCH ×2 (10:23→21:42)
--- NOTE | 2020-03-17 10:40 | Speech Therapy Daily Note ---
Speech Daily Progress Note Subjective Date Seen by Provider: Mar 17, 2020 Time Seen by Provider: 00:30 Patient was sitting up in her recliner following her shower with OT. Objective Patient completed a series of general information questions with 80% given minimal cues. Assessment Assessment Current Status: Good Progress Treatment Plan Continue Plan of Care Speech Short Term Goals Short Term Goals Short Term Goals 1) The patient will complete memory tasks related to her daily needs at 80% or greater with minimal cues. 2) The patient will complete safety awareness tasks related to her daily needs at 80% or greater with minimal cues. 3) The patient will complete problem solving tasks related to her daily needs at 80% or greater with minimal cues. Speech Mcfp Goals Outsole Leveler Goals The patient will improve her cognitive communication abilities to be able to complete daily tasks with minimal assist. Speech-Plan Patient/Family Goals Patient/Family Goals: Patient plans on returning home with family and other support as determined by the rehab team. Treatment Plan Speech Therapy Treatment Plan: Continue Plan of Care Treatment Duration: Mar 24, 2020 Frequency: 4 times per week (Patient will receive ST 4-5x per week) Estimated Hrs Per Day: .5 hour per day Rehab Potential: Fair Barriers to Learning: Patient's medical status, cognitive deficits Pt/Family Agrees to Plan: Yes Safety Risks/Education Teaching Recipient: Patient Teaching Methods: Demonstration, Discussion Response to Teaching: Verbalize Understanding, Return Demonstration Education Topics Provided: Continued safety and communication Time Speech Therapy Time In: 10:30 Speech Therapy Time Out: 11:00 Total Billed Time: 30 Billed Treatment Time 1, SLMAGUE Joseph Mar 17, 2020 10:40
[2020-03-17] MEDS: ENOXAPARIN 40 MG/0.4 ML (LOVENOX) SYR SC SCH ×2 (11:56→23:41)
--- NOTE | 2020-03-17 13:30 | Physical Therapy Daily Note ---
PT Daily Note-Current Subjective Pt sitting in recliner upon arrival. Pt agrees to PT. Pain Location: No Pain Reported Mental Status Patient Orientation: Person, Place, Situation Attachments: Oxygen (4L during tx) Transfers SCALE: Activities may be completed with or without assistive devices. 7-Jcewtznnnw-upamkde completes the activity by him/herself with no assistance from a helper. 5-Set-up or Clean-up Assistance-helper sets up or cleans up; patient completes activity. [place] assists only prior to or following the activity. 4-Supervision or Touching Assistance-helper provides verbal cues and/or touching/steadying and/or contact guard assistance as patient completes activity. Assistance may be provided throughout the activity or intermittently. 3-Partial/Moderate Assistance-helper does LESS THAN HALF the effort. [place] lifts, holds or supports trunk or limbs, but provides less than half the effort. 2-Substantial/Maximal Assistance-helper does MORE THAN HALF the effort. [place] lifts or holds trunk or limbs and provides more than half the effort. 7-Qhtkjgjvh-hzghzp does ALL the effort. Patient does none of the effort to complete the activity. Or, the assistance of 2 or more helpers is required for the patient to complete the activity. If activity was not attempted, code reason: 7-Patient Refused. 9-Not Applicable-not attempted and the patient did not perform the activity before the current illness, exacerbation or injury. 10-Not Attempted due to Environmental Limitations-(lack of equipment, weather restraints, etc.). 88-Not Attempted due to Medical Conditions or Safety Concerns. Sit to Stand (QC): 5 Weight Bearing Full Weight Bearing Full Weight Bearing Gait Training Does the Patient Walk?: Yes Distance: 75' x2 Walk 10 feet (QC): 5 Walk 50 ft with 2 Turns(QC): 5 Gait Persons Needed: 1 Gait Assistive Device: FWW Pt fatigues and needs RB. Treatments TF to standing then amb. in hallway. Pt takes short RB then returns to room and rest in recliner. All needs met, call light in hand. Assessment Current Status: Fair Progress Pt fatigues, citing SOA & needs RB. PT Short Term Goals Short Term Goals Time Frame: Mar 22, 2020 Lying to sitting on side of be: 4 Sit to stand: 4 Walk 50 feet with two turns: 4 Wheel 150 feet: 5 PT Senior Care Goals Furniture Designer Goals PT Furniture Designer Goals Time Frame: Apr 05, 2020 Roll Left & Right (QC): 6 Sit to Lying (QC): 6 Lying-Sitting on Side/Bed(QC): 6 Sit to Stand (QC): 6 Chair/Mhn-ra-Psavn Xfer(QC): 6 Toilet Transfer (QC): 6 Car Transfer (QC): 5 Does the Patient Walk: Yes Walk 10 feet (QC): 6 Walk 50ft with 2 Turns (QC): 6 Walk 150 ft (QC): 5 Walking 10ft on Uneven Surface: 5 1 Step (curb) (QC): 4 4 Steps (QC): 9 12 Steps (QC): 9 Picking up an Object (QC): 6 (with a gas blender) Does the Pt use WC or Scooter?: Yes Wheel 50 feet with 2 turns (QC: 6 Type: Manual Wheel 150 feet: 6 Type: Manual PT Plan Problem List Problem List: Activity Tolerance, Functional Strength, Gait Treatment/Plan Treatment Plan: Continue Plan of Care Treatment Plan: Bed Mobility, Education, Functional Activity Fede, Functional Strength, Group Therapy, Gait, Safety, Therapeutic Exercise, Transfers Treatment Duration: Apr 05, 2020 Frequency: At least 5 of 7 days/Wk (IRF) Estimated Hrs Per Day: Other (pt will achieve 15hrs over 7 days) Patient and/or Family Agrees t: Yes Safety Risks/Education Patient Education: Gait Training, Correct Positioning, Safety Issues Teaching Recipient: Patient Teaching Methods: Discussion Response to Teaching: Verbalize Understanding Time/GCodes Time In: 1300 Time Out: 1315 Total Billed Treatment Time: 15 Total Billed Treatment 1, GT (15m) VÍCTOR PALOMARES PTA Mar 17, 2020 13:30
--- NOTE | 2020-03-17 13:30 | NUR ---
"RD ASSESSMENT PMHx: COPD; CAD; hypercholesterolemia; HTN; dementia; chronic UTI; GERD; DM PT INTERACTION: Pt was awake and pleasant during nutrition follow-up. Pt states she has been eating better since last assessment. Note avg PO intake 96% x4d, per chart review. Pt states no issues with nausea, vomiting, constipation, or diarrhea since last assessment. Note last BM was 03/17, and pt currently on bowel regimen of senna BID, per chart review. ABNORMAL NUTRITION-RELATED LAB VALUES LOW: HIGH: AST 91; ALT 62 Est. kcal needs: 1575 kcal | 15 kcal/kg Est. Pro needs: 84 g Pro | 0.8 g Pro/kg PES STATEMENT: Given current appetite and PO intake, no nutrition diagnosis at this time (NO-1.1) INTERVENTION: Continue with current diet order of Regular diet. Will continue to follow and reassess as pt needs, intake, and status change. Radha Ferrell, MS RD LD"
[2020-03-17] MEDS: ADVAIR HFA 115/21 MCG INHALER 8 GM IH SCH ×2 (14:02→20:26)
--- NOTE | 2020-03-17 15:00 | NUR ---
CM/SS PATIENT CARE CONFERENCE Provided Summary for patient review, discussed, signed, charted. Patient is in agreement with target discharge of March 22. She will return to her apartment alone as before. She states she is comfortable with that arrangement. Patient does not want to apply for in-home assistance through [facility]. HHC: History with [facility] and patient wishes to resume services with that agency. Team recommends RN PT OT. Referral initiated today for Sunday discharge. DME: Patient has trilogy from [facility]. Inquiring of agency to request a home visit to educate patient about settings and adjustments due to her claim she was not using it because she didn't know how to self manage controls. Preference is for agency and patient to coordinate directly. Talked about med alert system, patient does not wish to pursue at this time. Supervisor Prep contacted patient's apartment complex to inquire about getting a grab bar in her apartment bathroom. Concluded that patient should contact them once home so that no one is in her apartment without her permission/knowledge. Will provide contact information on discharge instructions.
--- NOTE | 2020-03-17 15:11 | NUR ---
Pt is Confucianism. Sales Promotion Coordinator provided prayer and Communion.
[2020-03-17] MEDS: metFORMIN 500 MG (GLUCOPHAGE) TAB PO SCH (15:40)
--- NOTE | 2020-03-17 15:40 | NUR ---
HYPERTENSIVE AND MEDICATED WITH APRESOLINE.
[2020-03-17 17:00] VITALS: BP 189/86
[2020-03-17 19:00] VITALS: BP 182/86
--- NOTE | 2020-03-17 19:00 | NUR ---
REMAINS HYPERTENSIVE AND MEDICATED WITH CATAPRES.
[2020-03-17] MEDS: OLANZapine 5 MG (ZyPREXA) TAB PO SCH (21:36)
[2020-03-17] MEDS: DONEPEZIL 10 MG (ARICEPT) TAB PO SCH (21:36)
--- NOTE | 2020-03-17 21:36 | NUR ---
pt refused Senokot, stated had several stools today
[2020-03-17 23:10] VITALS: BP 145/70
[2020-03-18] MEDS: RT-ALBUTEROL/IPRATROPIUM 3 ML (DUONEB) VIAL INH SCH ×6 (01:45→22:28)
[2020-03-18 05:56] VITALS: BP 119/56
[2020-03-18] MEDS: metFORMIN 500 MG (GLUCOPHAGE) TAB PO SCH ×2 (06:14→15:46)
[2020-03-18] MEDS: SUCRALFATE 1 GM (CARAFATE) TAB PO SCH ×4 (06:14→20:55)
[2020-03-18] MEDS: CATHETER FLUSH 10 ML SYR IV SCH ×3 (06:14→20:57)
[2020-03-18] MEDS: ADVAIR HFA 115/21 MCG INHALER 8 GM IH SCH ×2 (07:18→18:34)
[2020-03-18 08:00] VITALS: BP 149/65
[2020-03-18] MEDS: FOLIC ACID 1 MG TAB PO SCH (08:13)
[2020-03-18] MEDS: CYANOCOBALAMIN 1,000 MCG (VITAMIN B-12) TABLET PO SCH (08:13)
[2020-03-18] MEDS: meTOprolol SUCCINATE 100 MG (TOPROL XL) TAB PO SCH ×2 (08:13→20:56)
[2020-03-18] MEDS: amLODIPine 5 MG (NORVASC) TAB PO SCH (08:14)
[2020-03-18] MEDS: LORATADINE (CLARITIN) 10 MG TAB PO SCH (08:14)
[2020-03-18] MEDS: HYDROcodone/APAP 5 MG/325 MG (LORTAB) TAB PO PRN ×2 (08:14→15:45)
[2020-03-18] MEDS: PANTOPRAZOLE 40 MG (PROTONIX) TAB PO SCH ×2 (08:14→20:55)
[2020-03-18] MEDS: VITAMIN D3 25 MCG (1,000 UNITS) TABLET PO SCH (08:14)
[2020-03-18] MEDS: SENNA W/DOCUSATE (SENOKOT S) TABLET PO SCH ×2 (08:15→20:57)
[2020-03-18] MEDS: TRIAMCINOLONE 0.1% CR (KENALOG) 80 GM TUBE TP SCH ×2 (08:17→20:56)
--- NOTE | 2020-03-18 09:00 | NUR ---
VERY TIRED THIS AM. STATES GOT UP TOO EARLY TODAY. BP STABLE. SOB WITH EXERTION - STATES SHE IS AT HER NORM. LEFT LUNG VERY DIMINISHED.
--- NOTE | 2020-03-18 09:07 | Physical Therapy Daily Note ---
PT Daily Note-Current Subjective Pt is asleep in recliner upon arrival. Pt appears very drowsy again this morning. Pt is using Bipap at night. Pt agrees to PT. Pain Numeric Pain Scale: 5-Moderate Pain Location: Right, Left Location Body Site: Knee Pain Description: Ache Mental Status Patient Orientation: Person, Place, Situation Attachments: Oxygen (4L during tx) Transfers SCALE: Activities may be completed with or without assistive devices. 9-Ivfwcoipwl-jegewny completes the activity by him/herself with no assistance from a helper. 5-Set-up or Clean-up Assistance-helper sets up or cleans up; patient completes activity. [place] assists only prior to or following the activity. 4-Supervision or Touching Assistance-helper provides verbal cues and/or touching/steadying and/or contact guard assistance as patient completes activity. Assistance may be provided throughout the activity or intermittently. 3-Partial/Moderate Assistance-helper does LESS THAN HALF the effort. [place] lifts, holds or supports trunk or limbs, but provides less than half the effort. 2-Substantial/Maximal Assistance-helper does MORE THAN HALF the effort. [place] lifts or holds trunk or limbs and provides more than half the effort. 7-Dskoreauc-bddwsd does ALL the effort. Patient does none of the effort to complete the activity. Or, the assistance of 2 or more helpers is required for the patient to complete the activity. If activity was not attempted, code reason: 7-Patient Refused. 9-Not Applicable-not attempted and the patient did not perform the activity before the current illness, exacerbation or injury. 10-Not Attempted due to Environmental Limitations-(lack of equipment, weather restraints, etc.). 88-Not Attempted due to Medical Conditions or Safety Concerns. Sit to Stand (QC): 5 Toilet Transfer (QC): 5 Attempts car transfer but cannot stand knees getting up "against chest" and feeling as though she cannot breathe. Weight Bearing Full Weight Bearing Full Weight Bearing Gait Training Does the Patient Walk?: Yes Distance: 75' x2 Walk 10 feet (QC): 5 Walk 50 ft with 2 Turns(QC): 5 Gait Persons Needed: 1 Gait Assistive Device: FWW Pt fatigues and needs RB. Exercises Seated Therapy Exercises: Ankle pumps, Long arc quads, Hip flexion, Kicking activity, Hip abd/add, Glut set Seated Reps: 15 Treatments TF to standing and uses BR before leaving room. Pt amb. in hallway, takes RB and completes Seated EX. Pt amb. then attempts to complete car transfer (see above note). Pt amb in hallway and returns to room to rest in recliner. DESK DIRECTOR assists positioning and all needs met, call light in hand. Assessment Current Status: Fair Progress Pt is very drowsy again today, fatigues easily. PT Short Term Goals Short Term Goals Time Frame: Mar 22, 2020 Lying to sitting on side of be: 4 Sit to stand: 4 Walk 50 feet with two turns: 4 Wheel 150 feet: 5 PT Crucible Furnace Tender Goals Skilled Nursing Goals PT Skilled Nursing Goals Time Frame: Apr 05, 2020 Roll Left & Right (QC): 6 Sit to Lying (QC): 6 Lying-Sitting on Side/Bed(QC): 6 Sit to Stand (QC): 6 Chair/Tsf-jk-Nkpuv Xfer(QC): 6 Toilet Transfer (QC): 6 Car Transfer (QC): 5 Does the Patient Walk: Yes Walk 10 feet (QC): 6 Walk 50ft with 2 Turns (QC): 6 Walk 150 ft (QC): 5 Walking 10ft on Uneven Surface: 5 1 Step (curb) (QC): 4 4 Steps (QC): 9 12 Steps (QC): 9 Picking up an Object (QC): 6 (with a materials recycler) Does the Pt use WC or Scooter?: Yes Wheel 50 feet with 2 turns (QC: 6 Type: Manual Wheel 150 feet: 6 Type: Manual PT Plan Problem List Problem List: Activity Tolerance, Functional Strength, Gait Treatment/Plan Treatment Plan: Continue Plan of Care Treatment Plan: Bed Mobility, Education, Functional Activity Fede, Functional Strength, Group Therapy, Gait, Safety, Therapeutic Exercise, Transfers Treatment Duration: Apr 05, 2020 Frequency: At least 5 of 7 days/Wk (IRF) Estimated Hrs Per Day: Other (pt will achieve 15hrs over 7 days) Patient and/or Family Agrees t: Yes Safety Risks/Education Patient Education: Gait Training, Safety Issues Teaching Recipient: Patient Teaching Methods: Discussion Response to Teaching: Verbalize Understanding Time/GCodes Time In: 800 Time Out: 900 Total Billed Treatment Time: 60 Total Billed Treatment 1, GT (20m), FA x2 (25m) & EX (15m) VÍCTOR PALOMARES DESK DIRECTOR Mar 18, 2020 09:07
[2020-03-18] MEDS: IRON SUCROSE 200 MG/10 ML (VENOFER) VIAL IV SCH (09:12)
--- NOTE | 2020-03-18 10:08 | Occupational Ther Daily Note ---
OT Current Status-Daily Note Subjective Pt seated in recliner, sleeping, easily awoken and agreeable to OT Tx. Pt did not verbalize pain during session. ADL-Treatment Therapy Code Descriptions/Definitions Functional [place] Measure: 0=Not Assessed/NA 4=Minimal Assistance 1=Total Assistance 5=Supervision or Setup 2=Maximal Assistance 6=Modified [place] 3=Moderate Assistance 7=Complete IndependenceSCALE: Activities may be completed with or without assistive devices. 3-Owhnpoahhu-uzezpux completes the activity by him/herself with no assistance from a helper. 5-Set-up or Clean-up Assistance-helper sets up or cleans up; patient completes activity. [place] assists only prior to or following the activity. 4-Supervision or Touching Assistance-helper provides verbal cues and/or touching/steadying and/or contact guard assistance as patient completes activity. Assistance may be provided throughout the activity or intermittently. 3-Partial/Moderate Assistance-helper does LESS THAN HALF the effort. [place] lifts, holds or supports trunk or limbs, but provides less than half the effort. 2-Substantial/Maximal Assistance-helper does MORE THAN HALF the effort. [place] lifts or holds trunk or limbs and provides more than half the effort. 6-Kmakigwcz-ftmqfb does ALL the effort. Patient does none of the effort to complete the activity. Or, the assistance of 2 or more helpers is required for the patient to complete the activity. If activity was not attempted, code reason: 7-Patient Refused. 9-Not Applicable-not attempted and the patient did not perform the activity before the current illness, exacerbation or injury. 10-Not Attempted due to Environmental Limitations-(lack of equipment, weather restraints, etc.). 88-Not Attempted due to Medical Conditions or Safety Concerns. Oral Hygiene (QC): 6 (IND seated at sink) Upper Body Dressing (QC): 5 (set up) Lower Body Dressing (QC): 4 (supervision, pt able to don lower body clothing and manage O2 line) On/Off Footwear: 6 Toileting Hygiene (QC): 6 (IND) Toilet Transfer (QC): 6 (IND transfer on/off BSC over toilet) Other Treatment Pt seated in recliner, agreeable to OT tx. Pt initially request shower, OT educated pt on going to the gym in order to focus on UE strengthening and endurance tasks to focus on pt's goal of getting stronger to return home, pt agreeable. Pt used FWW to transfer into restroom and onto toilet, pt completed toileting and dressing seated on BSC. Pt then stood at FWW and ambulated to sink, OT asked pt to wash her hands but pt declined stating she had used a wet wipe. OT then instructed pt she could brush her teeth, pt refused to complete task in standing, OT attempted to educate pt on performing tasks in standing to increase functional endurance with tasks, pt sat in the w/c refusing to complete task in standing. Pt completed oral care at sink, then self-propelled w/c to therapy gym. In order to increase BUE strength and functional endurance with tasks, 1lb wrist cuffs, pt instructed to place/remove x100 pegs into foam pegboard, alternating hands. Pt completed task at slow pace, taking multiple rest breaks as needed. Pt then self-propelled w/c back to her room, then used FWW to transfer to recliner, [facility]. Post OT tx, pt seated in recliner, call light in reach and all needs met. Education OT Patient Education: Correct positioning, Energy conservation, Exercise program, Modified ADL techniques, Progress toward Goal/Update tx plan, Purpose of tx/functional activities, Safety issues, Transfer techniques, W/C management Teaching Recipient: Patient Teaching Methods: Discussion Response to Teaching: Verbalize Understanding OT Short Term Goals Short Term Goals Time Frame: Mar 19, 2020 Shower/bathe self: 4 Lower body dressin Putting on/taking off footwear: 4 OT Correction Goals Is Architect Goals Time Frame: Apr 02, 2020 Eating (QC): 6 Oral Hygiene (QC): 6 Toileting Hygiene (QC): 6 Shower/Bathe Self (QC): 6 Upper Body Dressing (QC): 6 Lower Body Dressing (QC): 6 On/Off Footwear (QC): 6 Additional Goals: 1-Demonstrate ADL Tasks, 2-Verbalize Understanding, 3- ImproveStrength/Fede 1=Demonstrate adherence to instructed precautions during ADL tasks. 2=Patient will verbalize/demonstrate understanding of assistive devices/modifications for ADL. 3=Patient will improve strength/tolerance for activity to enable patient to perform ADL's. OT Education/Plan Problem List/Assessment Assessment: Decreased Activ Tolerance, Decreased UE Strength, Impaired Funct Balance, Impaired I ADL's, Impaired Self-Care Skills, Restricted Funct UE ROM Discharge Recommendations Plan/Recommendations: Continue POC Treatment Plan/Plan of Care Patient would benefit from OT for education, treatment and training to promote independence in ADL's, mobility, safety and/or upper extremity function for ADL's. Plan of Care: ADL Retraining, Functional Mobility, Group Exercise/Act as Ind, UE Funct Exercise/Act, W/C Management Training Treatment Duration: Apr 02, 2020 Frequency: Modified Program (IRF) (23/12) Estimated Hrs Per Day: .25 hour per day Agreement: Yes Rehab Potential: Fair Time/GCodes Start Time: 09:15 Stop Time: 10:30 Total Time Billed (hr/min): 75 Billed Treatment Time 1, ADL 2 (30'), FA 3 (45') GAMA DIEGO OT Mar 18, 2020 10:07
--- NOTE | 2020-03-18 10:58 | PM&R Progress Note ---
Subjective HPI/CC On Admission Date Seen by Provider: Mar 18, 2020 Time Seen by Provider: 12:30 Subjective/Events-last exam 03/18/20: Tired in mornings Increased BP noted Hydralazine and Clonidine given Venofer DC now Monitor sugar after restarting Metformin 03/17/20: Pt only used BiPAP for a couple of hours last night Restarting Metformin Hydralazine used for elevated BP Bowels moved three times already today 03/16/20: Bowels moved today Hydralazine given for elevated BP this morning BiPAP only for two hours last night 97% O2 sat Finishing antibiotics Doing well 03/15/20: Pt has dyspnea on exertion Wears O2 at home all the time 4 liters of O2 required on exertion AST and ALT are 91 and 62 respectively Decreased confusion WBC normal Hgb 9.2 03/14/20: BiPAP until 99 Xanax given for dyspnea but O2 sat was good BM today No pain issues 03/12/20: Zofran given today for nausea PPI and Carafate maintained for gastiritis treatment Complaining about the bland diet Needs biPAP at night and prn during the day for chronic hypercapnia : EGD and colonoscopy done today showing severe gastritis but colonoscopy was normal Rapidly desaturated oxygen-paz when she doesnt wear her oxygen to 67% Maintain on 4L per minute Kenalog cream for psoriasis will be ordered Overall seems to be doing pretty well now Pt is less SOB today after a two days course in ICU maintained on BiPAP and Vapotherm and now nasal cannula Heart rate 120s, I did consult Dr. Fuentes, gave her a dose of 50mg Metoprolol Maintain on 3 liters of oxygen now Will DC catheter Home meds will be restarted today Overall much improved Will change to a regular diet Bowels not moving but she hasnt eaten much Review of Systems General: Fatigue, Malaise Neurological: Weakness Objective Exam Vital Signs Vital Signs Date Time Temp Pulse Resp B/P (MAP) Pulse Ox O2 Delivery O2 Flow Rate FiO2 03/18/20 21:00 95 Nasal Cannula 3.00 03/18/20 17:27 36.1 89 16 155/69 (97) Capillary Refill : Less Than 3 SecondsLess Than 3 Seconds General Appearance: No Apparent Distress, WD/WN, Chronically ill HEENT: PERRL/EOMI, Normal ENT Inspection, Pharynx Normal Neck: Full Range of Motion, Normal Inspection, Non Tender, Supple, Carotid Bruit Respiratory: Chest Non Tender, Lungs Clear, Normal Breath Sounds, No Accessory Muscle Use, No Respiratory Distress, Decreased Breath Sounds Cardiovascular: Regular Rate, Rhythm, No Edema, No Gallop, No JVD, No Murmur, Normal Peripheral Pulses Gastrointestinal: Normal Bowel Sounds, No Organomegaly, No Pulsatile Mass, Non Tender, Soft Back: Normal Inspection, No CVA Tenderness, No Vertebral Tenderness Extremity: Normal Capillary Refill, Normal Inspection, Normal Range of Motion, Non Tender, No Calf Tenderness, No Pedal Edema Neurologic/Psychiatric: Alert, Oriented x3, No Motor/Sensory Deficits, Normal Mood/Affect Skin: Normal Color, Warm/Dry Lymphatic: No Adenopathy Results/Procedures Lab Patient resulted labs reviewed. FIM Transfers Therapy Code Descriptions/Definitions Functional [place] Measure: 0=Not Assessed/NA 4=Minimal Assistance 1=Total Assistance 5=Supervision or Setup 2=Maximal Assistance 6=Modified [place] 3=Moderate Assistance 7=Complete IndependenceSCALE: Activities may be completed with or without assistive devices. 9-Ozfejafhir-mszobxe completes the activity by him/herself with no assistance from a helper. 5-Set-up or Clean-up Assistance-helper sets up or cleans up; patient completes activity. [place] assists only prior to or following the activity. 4-Supervision or Touching Assistance-helper provides verbal cues and/or touching/steadying and/or contact guard assistance as patient completes activity. Assistance may be provided throughout the activity or intermittently. 3-Partial/Moderate Assistance-helper does LESS THAN HALF the effort. [place] lifts, holds or supports trunk or limbs, but provides less than half the effort. 2-Substantial/Maximal Assistance-helper does MORE THAN HALF the effort. [place] lifts or holds trunk or limbs and provides more than half the effort. 5-Rellxhtik-pqnvcb does ALL the effort. Patient does none of the effort to complete the activity. Or, the assistance of 2 or more helpers is required for the patient to complete the activity. If activity was not attempted, code reason: 7-Patient Refused. 9-Not Applicable-not attempted and the patient did not perform the activity before the current illness, exacerbation or injury. 10-Not Attempted due to Environmental Limitations-(lack of equipment, weather restraints, etc.). 88-Not Attempted due to Medical Conditions or Safety Concerns. Roll Left to Right (QC): 6 Sit to Lying (QC): 4 Sit to Stand (QC): 5 Chair/Vud-vv-Pmgpn Xfer(QC): 4 Car Transfer (QC): 88 (unable to tolerate this this date. ) Gait Training Does the Patient Walk?: Yes Distance: 75' x2 Walk 10 feet (QC): 5 Walk 50 ft with 2 Turns(QC): 5 Walk 150 ft (QC): 5 Walking 10ft/uneven surface-QC: 88 Gait Persons Needed: 1 Gait Assistive Device: FWW Wheelchair Training Does the Pt Use a Wheelchair?: Yes Distance: 50 ft Wheel 50 ft with 2 turns (QC): 1 Wheel 150 ft (QC): 1 Type of Wheelchair: Manual Stair Training 1 Step (curb) (QC): 7 4 Steps (QC): 9 12 Steps (QC): 9 Balance Picking up an Object (QC): 88 ADL-Treatment Eating (QC): 6 Oral Hygiene (QC): 6 (IND seated at sink) Bathing Location: L Arm, R Arm, L Upper Leg, R Upper Leg, L Lower Leg (including foot), R Lower Leg (including foot), Chest, Abdomen, Perineal Area Shower/Bathe Self (QC): 5 (set up, pt able to wash/dry all parts) Upper Body Dressing (QC): 5 (set up) Lower Body Dressing (QC): 4 (supervision, pt able to don lower body clothing and manage O2 line) On/Off Footwear (QC): 6 Toileting Hygiene (QC): 6 (IND) Toilet Transfer (QC): 6 (IND transfer on/off BSC over toilet) Assessment/Plan Assessment and Plan Assess & Plan/Chief Complaint Assessment: Severe debility due to acute on chronic respiratory failure h/o trach 05/29 h/o PEG tube 05/29 Mental illness precluding fast recovery Former smoker COPD OHS Dementia Plan: Monitor closely Inpatient rehabilitation protocol with therapies Dr Berman consultation appreciated 03/10/20: Restart IRF protocol Transfuse 1 unit of blood Consult Dr Evans may need scope, maintain PPI in meantime Appreciate Dr Fuentes and Dr Berman 03/11/20: Appreciate EGD and Colonoscopy from Dr Evans Gastritis treatment with PPI and Carafate 03/12/20: Bipap at night and prn during day when napping Monitor nausea PPI and Carafate 03/14/20: BiPAP at night and during naps Monitor dyspnea Change IV abx to PO 03/15/20: Maintain oxygen Labs reviewed Patient doing very well 03/16/20: Maintain Bipap at night Completed antibiotics Doing well 03/17/20: Have medical supply evaluate her CPAP machine Restart Metformin Bowels are moving very well today 03/18/20: Monitor sugar PT OT BiPAP as much as possible at night CPAP repair for home use (1) Debility (2) Acute on chronic respiratory failure Status: Chronic (3) Morbid obesity Status: Acute (4) Generalized weakness Status: Acute (5) Bipolar disorder Status: Chronic (6) Dementia Status: Acute (7) Psoriasis Status: Chronic (8) Hypertension Status: Chronic (9) Lupus Status: Chronic (10) Oxygen dependent Status: Chronic (11) Obesity hypoventilation syndrome (12) Chronic mental illness Status: Chronic (13) Acute on chronic respiratory failure with hypoxia and hypercapnia Status: Acute SAMANTHA COLLIER DO Mar 18, 2020 10:57
[2020-03-18] MEDS: ENOXAPARIN 40 MG/0.4 ML (LOVENOX) SYR SC SCH ×2 (11:22→23:08)
--- NOTE | 2020-03-18 11:35 | Speech Therapy Daily Note ---
Speech Daily Progress Note Subjective Date Seen by Provider: Mar 18, 2020 Time Seen by Provider: 00:30 Patient resting in her recliner while working on a word search sheet when I entered her room. Patient states she is tired today. Objective Patient completed a series of memory tasks with recall of 4 or 5 items presented verbally at 755 with min to mod cues. Assessment Assessment Current Status: Good Progress Treatment Plan Continue Plan of Care Speech Short Term Goals Short Term Goals Short Term Goals 1) The patient will complete memory tasks related to her daily needs at 80% or greater with minimal cues. 2) The patient will complete safety awareness tasks related to her daily needs at 80% or greater with minimal cues. 3) The patient will complete problem solving tasks related to her daily needs at 80% or greater with minimal cues. Speech Log [place] Goals Custodial Goals The patient will improve her cognitive communication abilities to be able to complete daily tasks with minimal assist. Speech-Plan Patient/Family Goals Patient/Family Goals: Patient is scheduled to return home with staff support and home health. Treatment Plan Speech Therapy Treatment Plan: Continue Plan of Care Treatment Duration: Mar 24, 2020 Frequency: 4 times per week (Patient will receive ST 4-5x per week) Estimated Hrs Per Day: .5 hour per day Rehab Potential: Fair Barriers to Learning: Patient's declining health Pt/Family Agrees to Plan: Yes Safety Risks/Education Teaching Recipient: Patient Teaching Methods: Demonstration, Discussion Response to Teaching: Verbalize Understanding, Return Demonstration Education Topics Provided: Continued safety within her room and communication of wants/needs Time Speech Therapy Time In: 10:30 Speech Therapy Time Out: 11:00 Total Billed Time: 30 Billed Treatment Time [address] Mar 18, 2020 11:35
--- NOTE | 2020-03-18 12:30 | NUR ---
HYPERTENSIVE YESTERDAY. PATIENT STATES WAS ON METOPROLOL BID AT HOME. ORDER OBTAINED TO CHANGE TO BID HERE.
--- NOTE | 2020-03-18 14:50 | Physical Therapy Daily Note ---
PT Daily Note-Current Subjective Pt laying Supine in bed asleep upon arrival. Pt agrees to PT but very drowsy. Transfers SCALE: Activities may be completed with or without assistive devices. 2-Babkosfjlp-okglowk completes the activity by him/herself with no assistance from a helper. 5-Set-up or Clean-up Assistance-helper sets up or cleans up; patient completes activity. [place] assists only prior to or following the activity. 4-Supervision or Touching Assistance-helper provides verbal cues and/or touching/steadying and/or contact guard assistance as patient completes activity. Assistance may be provided throughout the activity or intermittently. 3-Partial/Moderate Assistance-helper does LESS THAN HALF the effort. [place] lifts, holds or supports trunk or limbs, but provides less than half the effort. 2-Substantial/Maximal Assistance-helper does MORE THAN HALF the effort. [place] lifts or holds trunk or limbs and provides more than half the effort. 1-Danvuoarv-hjjxue does ALL the effort. Patient does none of the effort to complete the activity. Or, the assistance of 2 or more helpers is required for the patient to complete the activity. If activity was not attempted, code reason: 7-Patient Refused. 9-Not Applicable-not attempted and the patient did not perform the activity before the current illness, exacerbation or injury. 10-Not Attempted due to Environmental Limitations-(lack of equipment, weather restraints, etc.). 88-Not Attempted due to Medical Conditions or Safety Concerns. Weight Bearing Full Weight Bearing Full Weight Bearing Treatments MATERIAL DISPOSITION INSPECTOR attempts Supine Ex but continually having to wake pt. Pt resting in bed at end of tx, all needs met with call light in hand. Assessment Current Status: Fair Progress Pt fatigues easily and is drowsy. PT Short Term Goals Short Term Goals Time Frame: Mar 22, 2020 Lying to sitting on side of be: 4 Sit to stand: 4 Walk 50 feet with two turns: 4 Wheel 150 feet: 5 PT Forging Engineer Goals Forging Engineer Goals PT Forging Engineer Goals Time Frame: Apr 05, 2020 Roll Left & Right (QC): 6 Sit to Lying (QC): 6 Lying-Sitting on Side/Bed(QC): 6 Sit to Stand (QC): 6 Chair/Qld-rz-Ggumx Xfer(QC): 6 Toilet Transfer (QC): 6 Car Transfer (QC): 5 Does the Patient Walk: Yes Walk 10 feet (QC): 6 Walk 50ft with 2 Turns (QC): 6 Walk 150 ft (QC): 5 Walking 10ft on Uneven Surface: 5 1 Step (curb) (QC): 4 4 Steps (QC): 9 12 Steps (QC): 9 Picking up an Object (QC): 6 (with a fish bailer) Does the Pt use WC or Scooter?: Yes Wheel 50 feet with 2 turns (QC: 6 Type: Manual Wheel 150 feet: 6 Type: Manual PT Plan Problem List Problem List: Activity Tolerance, Functional Strength Treatment/Plan Treatment Plan: Continue Plan of Care Treatment Plan: Bed Mobility, Education, Functional Activity Fede, Functional Strength, Group Therapy, Gait, Safety, Therapeutic Exercise, Transfers Treatment Duration: Apr 05, 2020 Frequency: At least 5 of 7 days/Wk (IRF) Estimated Hrs Per Day: Other (pt will achieve 15hrs over 7 days) Patient and/or Family Agrees t: Yes Time/GCodes Time In: 1400 Time Out: 1415 Total Billed Treatment Time: 15 Total Billed Treatment 1, FA (15m) VÍCTOR PALOMARES PTA Mar 18, 2020 14:50
--- NOTE | 2020-03-18 15:00 | NUR ---
LEFT MESSAGE WITH DR. GARZA RE: USING BIPAP AT HS HERE AND HAS CPAP AT HOME. DC PLANNED FOR SUNDAY AND PLEASE CLARIFY IF BACK ON CPAP AT HOME.
[2020-03-18 17:27] VITALS: BP 155/69
--- NOTE | 2020-03-18 18:00 | NUR ---
ORDER OBTAINED FROM DR. GARZA TO DC HS BIPAP ON DISCHARGE AND RETURN TO CPAP WHEN GOES HOME. TO F/U WITH HIM 2-3 WEEKS POST DISCHARGE.
[2020-03-18] MEDS: DONEPEZIL 10 MG (ARICEPT) TAB PO SCH (20:55)
[2020-03-18] MEDS: OLANZapine 5 MG (ZyPREXA) TAB PO SCH (20:56)
[2020-03-19] MEDS: RT-ALBUTEROL/IPRATROPIUM 3 ML (DUONEB) VIAL INH SCH ×6 (01:20→21:55)
[2020-03-19] MEDS: CATHETER FLUSH 10 ML SYR IV SCH ×3 (05:21→21:09)
[2020-03-19 06:00] VITALS: BP 153/68
[2020-03-19] MEDS: metFORMIN 500 MG (GLUCOPHAGE) TAB PO SCH ×2 (06:24→16:00)
[2020-03-19] MEDS: SUCRALFATE 1 GM (CARAFATE) TAB PO SCH ×4 (06:24→20:51)
--- NOTE | 2020-03-19 07:20 | NUR ---
pt is eating and does not want to take breathing tx. Addendum: 03/19/20 at 0721 by NILDA WANG RT Amended: Links added.
[2020-03-19] MEDS: SENNA W/DOCUSATE (SENOKOT S) TABLET PO SCH ×2 (07:52→19:46)
--- NOTE | 2020-03-19 09:00 | Physical Therapy Daily Note ---
PT Daily Note-Current Subjective Pt presents sitting upright in recliner. Pt agrees to PT. Pt reports 8/10 pain in B knees and R arm, knee pain increased to a 9/10 with standing activities. Appearance At conlcusion of PT treatment patient returns to recliner with access to tray, call button, and all needs have been met. Mental Status Patient Orientation: Person, Place, Time, Eyes Open, Situation Attachments: Oxygen Transfers SCALE: Activities may be completed with or without assistive devices. 7-Teakvvfegt-qerskrg completes the activity by him/herself with no assistance from a helper. 5-Set-up or Clean-up Assistance-helper sets up or cleans up; patient completes activity. [place] assists only prior to or following the activity. 4-Supervision or Touching Assistance-helper provides verbal cues and/or touching/steadying and/or contact guard assistance as patient completes activity. Assistance may be provided throughout the activity or intermittently. 3-Partial/Moderate Assistance-helper does LESS THAN HALF the effort. [place] lifts, holds or supports trunk or limbs, but provides less than half the effort. 2-Substantial/Maximal Assistance-helper does MORE THAN HALF the effort. [place] lifts or holds trunk or limbs and provides more than half the effort. 0-Vjumubscj-qihqsq does ALL the effort. Patient does none of the effort to complete the activity. Or, the assistance of 2 or more helpers is required for the patient to complete the activity. If activity was not attempted, code reason: 7-Patient Refused. 9-Not Applicable-not attempted and the patient did not perform the activity before the current illness, exacerbation or injury. 10-Not Attempted due to Environmental Limitations-(lack of equipment, weather restraints, etc.). 88-Not Attempted due to Medical Conditions or Safety Concerns. Sit to Stand (QC): 4 Chair/Vmh-vb-Fosxc Xfer(QC): 4 Weight Bearing Full Weight Bearing Full Weight Bearing Gait Training Does the Patient Walk?: Yes Distance: 200'x3 Walk 10 feet (QC): 4 Walk 50 ft with 2 Turns(QC): 4 Walk 150 ft (QC): 4 Gait Assistive Device: FWW CGA. Pt requires breaks due to increased knee pain and shortness of breath. Exercises Seated Therapy Exercises: Ankle pumps, Long arc quads, Hamstring Curls (red theraband), Hip abd/add (pillow squeeze), Glut set Seated Reps: [address] Ex=Flex, Abd, Ext, Mini squats (30) Standing Reps: 20 Treatments LE strengthening Assessment Current Status: Fair Progress Pt is unable to complete standing activities due to knee pain; refuses to complete cjw-lx-zbmacg but is able to complete mini-squats with very little ROM. Pt improving with gait. PT Short Term Goals Short Term Goals Time Frame: Mar 22, 2020 Lying to sitting on side of be: 4 Sit to stand: 4 Walk 50 feet with two turns: 4 Wheel 150 feet: 5 PT Intermediate Goals Intermediate Goals PT Intermediate Goals Time Frame: Apr 05, 2020 Roll Left & Right (QC): 6 Sit to Lying (QC): 6 Lying-Sitting on Side/Bed(QC): 6 Sit to Stand (QC): 6 Chair/Wad-mc-Cswbw Xfer(QC): 6 Toilet Transfer (QC): 6 Car Transfer (QC): 5 Does the Patient Walk: Yes Walk 10 feet (QC): 6 Walk 50ft with 2 Turns (QC): 6 Walk 150 ft (QC): 5 Walking 10ft on Uneven Surface: 5 1 Step (curb) (QC): 4 4 Steps (QC): 9 12 Steps (QC): 9 Picking up an Object (QC): 6 (with a home attendant) Does the Pt use WC or Scooter?: Yes Wheel 50 feet with 2 turns (QC: 6 Type: Manual Wheel 150 feet: 6 Type: Manual PT Plan Problem List Problem List: Activity Tolerance, Functional Strength, Safety, Balance, Gait, Transfer, Bed Mobility, ROM Treatment/Plan Treatment Plan: Continue Plan of Care Treatment Plan: Bed Mobility, Education, Functional Activity Fede, Functional Strength, Group Therapy, Gait, Safety, Therapeutic Exercise, Transfers Treatment Duration: Apr 05, 2020 Frequency: At least 5 of 7 days/Wk (IRF) Estimated Hrs Per Day: Other (pt will achieve 15hrs over 7 days) Patient and/or Family Agrees t: Yes Safety Risks/Education Patient Education: Gait Training, Correct Positioning, Safety Issues Teaching Recipient: Patient Teaching Methods: Demonstration, Discussion Response to Teaching: Reinforcement Needed Time/GCodes Time In: 0800 Time Out: 0900 Total Billed Treatment Time: 60 Total Billed Treatment 1 visit EX 40' GT 20' KRTEK,CLAU PT Mar 19, 2020 09:00
[2020-03-19] MEDS: VITAMIN D3 25 MCG (1,000 UNITS) TABLET PO SCH (09:55)
[2020-03-19] MEDS: ENOXAPARIN 40 MG/0.4 ML (LOVENOX) SYR SC SCH (09:55)
[2020-03-19] MEDS: PANTOPRAZOLE 40 MG (PROTONIX) TAB PO SCH ×2 (09:55→20:51)
[2020-03-19] MEDS: LORATADINE (CLARITIN) 10 MG TAB PO SCH (09:55)
[2020-03-19] MEDS: meTOprolol SUCCINATE 100 MG (TOPROL XL) TAB PO SCH ×2 (09:55→20:51)
[2020-03-19] MEDS: CYANOCOBALAMIN 1,000 MCG (VITAMIN B-12) TABLET PO SCH (09:56)
[2020-03-19] MEDS: amLODIPine 5 MG (NORVASC) TAB PO SCH (09:56)
[2020-03-19] MEDS: FOLIC ACID 1 MG TAB PO SCH (09:56)
[2020-03-19] MEDS: TRIAMCINOLONE 0.1% CR (KENALOG) 80 GM TUBE TP SCH ×2 (09:57→20:51)
[2020-03-19] MEDS: ADVAIR HFA 115/21 MCG INHALER 8 GM IH SCH ×2 (10:26→18:40)
--- NOTE | 2020-03-19 10:43 | NUR ---
CM/SS CONCURRENT DOCUMENTATION DME: [facility]/CandaceG will meet with patient once she is home to educate about her trilogy settings and use of this Rx at night. Updated patient.
--- NOTE | 2020-03-19 10:45 | PM&R Progress Note ---
Subjective HPI/CC On Admission Date Seen by Provider: Mar 19, 2020 Time Seen by Provider: 12:30 Subjective/Events-last exam 03/19/20: DC picc line since it is irritated CPAP getting set up for home O2 maintained BM today Nystatin will be used for yeast skin issues 03/18/20: Tired in mornings Increased BP noted Hydralazine and Clonidine given Venofer DC now Monitor sugar after restarting Metformin 03/17/20: Pt only used BiPAP for a couple of hours last night Restarting Metformin Hydralazine used for elevated BP Bowels moved three times already today 03/16/20: Bowels moved today Hydralazine given for elevated BP this morning BiPAP only for two hours last night 97% O2 sat Finishing antibiotics Doing well 03/15/20: Pt has dyspnea on exertion Wears O2 at home all the time 4 liters of O2 required on exertion AST and ALT are 91 and 62 respectively Decreased confusion WBC normal Hgb 9.2 03/14/20: BiPAP until 99 Xanax given for dyspnea but O2 sat was good BM today No pain issues 03/12/20: Zofran given today for nausea PPI and Carafate maintained for gastiritis treatment Complaining about the bland diet Needs biPAP at night and prn during the day for chronic hypercapnia : EGD and colonoscopy done today showing severe gastritis but colonoscopy was normal Rapidly desaturated oxygen-paz when she doesnt wear her oxygen to 67% Maintain on 4L per minute Kenalog cream for psoriasis will be ordered Overall seems to be doing pretty well now Pt is less SOB today after a two days course in ICU maintained on BiPAP and Vapotherm and now nasal cannula Heart rate 120s, I did consult Dr. Fuentes, gave her a dose of 50mg Metoprolol Maintain on 3 liters of oxygen now Will DC catheter Home meds will be restarted today Overall much improved Will change to a regular diet Bowels not moving but she hasnt eaten much Review of Systems General: Fatigue Pulmonary: Dyspnea Objective Exam Vital Signs Vital Signs Date Time Temp Pulse Resp B/P (MAP) Pulse Ox O2 Delivery O2 Flow Rate FiO2 03/20/20 05:14 36.1 78 20 155/70 (98) 93 Nasal Cannula 3.00 Capillary Refill : Less Than 3 SecondsLess Than 3 Seconds General Appearance: No Apparent Distress, WD/WN, Chronically ill HEENT: PERRL/EOMI, Normal ENT Inspection, Pharynx Normal Neck: Full Range of Motion, Normal Inspection, Non Tender, Supple, Carotid Bruit Respiratory: Chest Non Tender, Lungs Clear, Normal Breath Sounds, No Accessory Muscle Use, No Respiratory Distress, Decreased Breath Sounds Cardiovascular: Regular Rate, Rhythm, No Edema, No Gallop, No JVD, No Murmur, Normal Peripheral Pulses Gastrointestinal: Normal Bowel Sounds, No Organomegaly, No Pulsatile Mass, Non Tender, Soft Back: Normal Inspection, No CVA Tenderness, No Vertebral Tenderness Extremity: Normal Capillary Refill, Normal Inspection, Normal Range of Motion, Non Tender, No Calf Tenderness, No Pedal Edema Neurologic/Psychiatric: Alert, Oriented x3, No Motor/Sensory Deficits, Normal Mood/Affect Skin: Normal Color, Warm/Dry Lymphatic: No Adenopathy Results/Procedures Lab Patient resulted labs reviewed. FIM Transfers Therapy Code Descriptions/Definitions Functional [place] Measure: 0=Not Assessed/NA 4=Minimal Assistance 1=Total Assistance 5=Supervision or Setup 2=Maximal Assistance 6=Modified [place] 3=Moderate Assistance 7=Complete IndependenceSCALE: Activities may be completed with or without assistive devices. 1-Olpwgjncgt-fgzldib completes the activity by him/herself with no assistance from a helper. 5-Set-up or Clean-up Assistance-helper sets up or cleans up; patient completes activity. [place] assists only prior to or following the activity. 4-Supervision or Touching Assistance-helper provides verbal cues and/or touching/steadying and/or contact guard assistance as patient completes activity. Assistance may be provided throughout the activity or intermittently. 3-Partial/Moderate Assistance-helper does LESS THAN HALF the effort. [place] lifts, holds or supports trunk or limbs, but provides less than half the effort. 2-Substantial/Maximal Assistance-helper does MORE THAN HALF the effort. [place] lifts or holds trunk or limbs and provides more than half the effort. 4-Wtcyglsdg-nkzryz does ALL the effort. Patient does none of the effort to com plete the activity. Or, the assistance of 2 or more helpers is required for the patient to complete the activity. If activity was not attempted, code reason: 7-Patient Refused. 9-Not Applicable-not attempted and the patient did not perform the activity before the current illness, exacerbation or injury. 10-Not Attempted due to Environmental Limitations-(lack of equipment, weather restraints, etc.). 88-Not Attempted due to Medical Conditions or Safety Concerns. Roll Left to Right (QC): 6 Sit to Lying (QC): 4 Sit to Stand (QC): 4 Chair/Yuj-sb-Epavn Xfer(QC): 4 Car Transfer (QC): 88 (unable to tolerate this this date. ) Gait Training Does the Patient Walk?: Yes Distance: 200'x3 Walk 10 feet (QC): 4 Walk 50 ft with 2 Turns(QC): 4 Walk 150 ft (QC): 4 Walking 10ft/uneven surface-QC: 88 Gait Persons Needed: 1 Gait Assistive Device: FWW Wheelchair Training Does the Pt Use a Wheelchair?: Yes Distance: 50 ft Wheel 50 ft with 2 turns (QC): 1 Wheel 150 ft (QC): 1 Type of Wheelchair: Manual Stair Training 1 Step (curb) (QC): 7 4 Steps (QC): 9 12 Steps (QC): 9 Balance Picking up an Object (QC): 88 ADL-Treatment Eating (QC): 6 Oral Hygiene (QC): 6 (IND seated at sink) Bathing Location: L Arm, R Arm, L Upper Leg, R Upper Leg, L Lower Leg (including foot), R Lower Leg (including foot), Chest, Abdomen, Perineal Area Shower/Bathe Self (QC): 5 (set up, pt able to wash/dry all parts) Upper Body Dressing (QC): 5 (set up) Lower Body Dressing (QC): 4 (supervision, pt able to don lower body clothing and manage O2 line) On/Off Footwear (QC): 6 Toileting Hygiene (QC): 6 (IND) Toilet Transfer (QC): 6 (IND transfer on/off BSC over toilet) Assessment/Plan Assessment and Plan Assess & Plan/Chief Complaint Assessment: Severe debility due to acute on chronic respiratory failure h/o trach 05/29 h/o PEG tube 05/29 Mental illness precluding fast recovery Former smoker COPD OHS Dementia Plan: Monitor closely Inpatient rehabilitation protocol with therapies Dr Berman consultation appreciated 03/10/20: Restart IRF protocol Transfuse 1 unit of blood Consult Dr Evans may need scope, maintain PPI in meantime Appreciate Dr Fuentes and Dr Berman 03/11/20: Appreciate EGD and Colonoscopy from Dr Evans Gastritis treatment with PPI and Carafate 03/12/20: Bipap at night and prn during day when napping Monitor nausea PPI and Carafate 03/14/20: BiPAP at night and during naps Monitor dyspnea Change IV abx to PO 03/15/20: Maintain oxygen Labs reviewed Patient doing very well 03/16/20: Maintain Bipap at night Completed antibiotics Doing well 03/17/20: Have medical supply evaluate her CPAP machine Restart Metformin Bowels are moving very well today 03/18/20: Monitor sugar PT OT BiPAP as much as possible at night CPAP repair for home use 03/19/20: Monitor O2 BP management Doing well DC Sunday (1) Debility (2) Acute on chronic respiratory failure Status: Chronic (3) Morbid obesity Status: Acute (4) Generalized weakness Status: Acute (5) Bipolar disorder Status: Chronic (6) Dementia Status: Acute (7) Psoriasis Status: Chronic (8) Hypertension Status: Chronic (9) Lupus Status: Chronic (10) Oxygen dependent Status: Chronic (11) Obesity hypoventilation syndrome (12) Chronic mental illness Status: Chronic (13) Acute on chronic respiratory failure with hypoxia and hypercapnia Status: Acute SAMANTHA COLLIER DO Mar 19, 2020 10:45
--- NOTE | 2020-03-19 10:50 | Occupational Ther Daily Note ---
OT Current Status-Daily Note Subjective Pt seen in room, up in recliner, agreeable to OT. No pain mentioned Appearance Initially very sleepy and difficult to keep awake, then alert and cooperative ADL-Treatment Pt wanted to shower but she had difficulty staying awake and there were concerns about her alertness to be in the shower. She agreed to sponge bath with bath pack. Pt also washed hair with moist cap and was able to get her hands to her head to wet hair and brush it, except for tight tangles. She was able to stand without help and wash tabatha and bottom, SBA, FWW, with no LOB. Washed other areas with setup. Walked SBA, FWW to bathroom to toilet, managing O2 tubing herself. Toilet transfer and toileting mod I, with BSC over toilet. Pt paced herself throughout ADLs, stopping for recovery breaks as needed and O2 in place throughout. She dressed upper and lower body with setup, including removing and donning shoes. Transferred SBA, FWW to w/c, at her request, to brush teeth at sink. Walked back to recliner with SBA, FWW and left u p in chair, all needs met. Redness observed under breasts and under tummy areas and nursing notified. Therapy Code Descriptions/Definitions Functional [place] Measure: 0=Not Assessed/NA 4=Minimal Assistance 1=Total Assistance 5=Supervision or Setup 2=Maximal Assistance 6=Modified [place] 3=Moderate Assistance 7=Complete IndependenceSCALE: Activities may be completed with or without assistive devices. 9-Zprgpzxlhw-ybffvpm completes the activity by him/herself with no assistance from a helper. 5-Set-up or Clean-up Assistance-helper sets up or cleans up; patient completes activity. [place] assists only prior to or following the activity. 4-Supervision or Touching Assistance-helper provides verbal cues and/or touching/steadying and/or contact guard assistance as patient completes activity. Assistance may be provided throughout the activity or intermittently. 3-Partial/Moderate Assistance-helper does LESS THAN HALF the effort. [place] lifts, holds or supports trunk or limbs, but provides less than half the effort. 2-Substantial/Maximal Assistance-helper does MORE THAN HALF the effort. [place] lifts or holds trunk or limbs and provides more than half the effort. 5-Jeuxglcyu-oskhat does ALL the effort. Patient does none of the effort to complete the activity. Or, the assistance of 2 or more helpers is required for the patient to complete the activity. If activity was not attempted, code reason: 7-Patient Refused. 9-Not Applicable-not attempted and the patient did not perform the activity before the current illness, exacerbation or injury. 10-Not Attempted due to Environmental Limitations-(lack of equipment, weather restraints, etc.). 88-Not Attempted due to Medical Conditions or Safety Concerns. Oral Hygiene (QC): 6 Shower/Bathe Self (QC): 4 (SBA for standing to wash tabatha and bottom) Upper Body Dressing (QC): 5 Lower Body Dressing (QC): 5 On/Off Footwear: 6 Toileting Hygiene (QC): 6 Toilet Transfer (QC): 6 Education OT Patient Education: Modified ADL techniques, Progress toward Goal/Update tx plan, Purpose of tx/functional activities, Safety issues Teaching Recipient: Patient Teaching Methods: Discussion Response to Teaching: Verbalize Understanding, Return Demonstration OT Short Term Goals Short Term Goals Time Frame: Mar 19, 2020 Shower/bathe self: 4 Lower body dressin Putting on/taking off footwear: 4 OT Replenishment Buyer Goals Replenishment Buyer Goals Time Frame: Apr 02, 2020 Eating (QC): 6 Oral Hygiene (QC): 6 Toileting Hygiene (QC): 6 Shower/Bathe Self (QC): 6 Upper Body Dressing (QC): 6 Lower Body Dressing (QC): 6 On/Off Footwear (QC): 6 Additional Goals: 1-Demonstrate ADL Tasks, 2-Verbalize Understanding, 3- ImproveStrength/Fede 1=Demonstrate adherence to instructed precautions during ADL tasks. 2=Patient will verbalize/demonstrate understanding of assistive devices/modifications for ADL. 3=Patient will improve strength/tolerance for activity to enable patient to perform ADL's. OT Education/Plan Discharge Recommendations Plan/Recommendations: Continue POC Treatment Plan/Plan of Care Patient would benefit from OT for education, treatment and training to promote independence in ADL's, mobility, safety and/or upper extremity function for ADL's. Plan of Care: ADL Retraining, Functional Mobility, Group Exercise/Act as Ind, UE Funct Exercise/Act, W/C Management Training Treatment Duration: Apr 02, 2020 Frequency: Modified Program (IRF) (23/12) Estimated Hrs Per Day: .25 hour per day Agreement: Yes Rehab Potential: Fair Time/GCodes Start Time: 09:38 Stop Time: 10:28 Total Time Billed (hr/min): 50 Billed Treatment Time visit, 50 minutes ADL JOE FIGUEROA OT Mar 19, 2020 10:50
--- NOTE | 2020-03-19 12:13 | NUR ---
Pt declined Communion today. Document Controller offered blessing.
--- NOTE | 2020-03-19 13:54 | Speech Therapy Daily Note ---
Speech Daily Progress Note Subjective Date Seen by Provider: Mar 19, 2020 Time Seen by Provider: 00:30 Patient was resting in her recliner, noted to be leaning forward which she stated she could breathe better when she leaned forward. Objective Patient completed q/a related to her return home and how her needs were going to be met with 85% given minimal cues and/or repetition. Assessment Assessment Current Status: Good Progress Treatment Plan Continue Plan of Care Speech Short Term Goals Short Term Goals Short Term Goals 1) The patient will complete memory tasks related to her daily needs at 80% or greater with minimal cues. 2) The patient will complete safety awareness tasks related to her daily needs at 80% or greater with minimal cues. 3) The patient will complete problem solving tasks related to her daily needs at 80% or greater with minimal cues. Speech Senior Living Goals Senior Living Goals The patient will improve her cognitive communication abilities to be able to complete daily tasks with minimal assist. Speech-Plan Patient/Family Goals Patient/Family Goals: Patient is scheduled to return home on Sunday. Patient will receive home health, a svp [employer] [facility] [employer] 3[facility] per week and meals on wheels. She also has a daughter who will support her as needed. Treatment Plan Speech Therapy Treatment Plan: Continue Plan of Care Treatment Duration: Mar 24, 2020 Frequency: 4 times per week (Patient will receive ST 4-5x per week) Estimated Hrs Per Day: .5 hour per day Rehab Potential: Fair Barriers to Learning: Patient's health issues, cognitive deficits Pt/Family Agrees to Plan: Yes Safety Risks/Education Teaching Recipient: Patient Teaching Methods: Demonstration, Discussion Response to Teaching: Verbalize Understanding, Return Demonstration Education Topics Provided: Continued safety upon her return home. Time Speech Therapy Time In: 10:30 Speech Therapy Time Out: 11:00 Total Billed Time: 30 Billed Treatment Time 1[address] Mar 19, 2020 13:54
--- NOTE | 2020-03-19 14:28 | Therapy Group Daily Note ---
Therapy Daily Group Note Patient Education Topic Other List Below (ARU orientation/planning for discharge) Exercises LE Seated Exercise, UE Exercise Session Ratio (pt:therapist): 4:1 Goal of Session: Education on ARU Expectations, Memory Strategies, UE/LE Strengthing Goal Met for this Session: Yes Pt Benefit of Group: Contributions to Others, F/U Use of Strategies @Home, Increased Functional Strength, Recognition of Peers, Socialization Pt. participated in group PT OT session this date. Pt. self-propelled w/c to and from group. Pt. was social, introduced herself and shared "how she made her first dollar" Pts were educated on ARU practices and expectations. Seated U&L extremity exercises were done with some being lead by patients who were willing to share exercises they either used at home or have learned here and have incorporated in to their routine. Pts. participated in memory challenge by establishing 3 categories and 3 words in the beginning of the group session then recalling them later. Pt. returned to room and to recliner with assist and guy at hand. Start Time: 13:00 Stop Time: 14:10 Total Billed Treatment Time: 70 Total Billed Treatment 1, GRP GAMA DIEGO OT Mar 19, 2020 14:28
[2020-03-19 17:56] VITALS: BP 132/60
[2020-03-19] MEDS: DONEPEZIL 10 MG (ARICEPT) TAB PO SCH (20:51)
[2020-03-19] MEDS: OLANZapine 5 MG (ZyPREXA) TAB PO SCH (20:51)
[2020-03-19] MEDS: CLOTRIMAZOLE 1% CREAM (LOTRIMIN) 30 GM TOP SCH (21:09)
--- NOTE | 2020-03-20 00:10 | NUR ---
Patient took bipap off. O2 put back on patient.
[2020-03-20] MEDS: ENOXAPARIN 40 MG/0.4 ML (LOVENOX) SYR SC SCH ×3 (00:19→23:44)
[2020-03-20] MEDS: RT-ALBUTEROL/IPRATROPIUM 3 ML (DUONEB) VIAL INH SCH ×6 (02:52→22:10)
[2020-03-20] MEDS: CATHETER FLUSH 10 ML SYR IV SCH ×3 (04:18→19:54)
[2020-03-20 05:14] VITALS: BP 155/70
[2020-03-20] MEDS: metFORMIN 500 MG (GLUCOPHAGE) TAB PO SCH ×2 (06:31→16:14)
[2020-03-20] MEDS: SUCRALFATE 1 GM (CARAFATE) TAB PO SCH ×4 (06:31→19:48)
--- NOTE | 2020-03-20 07:07 | NUR ---
pt wants to eat her breakfast. pt is in no respiratory distress. pt refused tx. Addendum: 03/20/20 at 0708 by NILDA WANG RT Amended: Links added.
--- NOTE | 2020-03-20 08:40 | Physical Therapy Daily Note ---
PT Daily Note-Current Subjective Patient in bed pre tx, agrees to PT, has no complaints of pain. Appearance Patient in recliner post tx with nurse call, phone, tray, all needs met. Mental Status Patient Orientation: Person, Place, Situation Attachments: Oxygen Transfers SCALE: Activities may be completed with or without assistive devices. 4-Bsosqnbdvy-yafkbta completes the activity by him/herself with no assistance from a helper. 5-Set-up or Clean-up Assistance-helper sets up or cleans up; patient completes activity. [place] assists only prior to or following the activity. 4-Supervision or Touching Assistance-helper provides verbal cues and/or touching/steadying and/or contact guard assistance as patient completes activity. Assistance may be provided throughout the activity or intermittently. 3-Partial/Moderate Assistance-helper does LESS THAN HALF the effort. [place] lifts, holds or supports trunk or limbs, but provides less than half the effort. 2-Substantial/Maximal Assistance-helper does MORE THAN HALF the effort. [place] lifts or holds trunk or limbs and provides more than half the effort. 3-Godbsmkcy-tbdxix does ALL the effort. Patient does none of the effort to complete the activity. Or, the assistance of 2 or more helpers is required for the patient to complete the activity. If activity was not attempted, code reason: 7-Patient Refused. 9-Not Applicable-not attempted and the patient did not perform the activity before the current illness, exacerbation or injury. 10-Not Attempted due to Environmental Limitations-(lack of equipment, weather restraints, etc.). 88-Not Attempted due to Medical Conditions or Safety Concerns. Roll Left & Right (QC): 6 Lying to Sitting/Side of Bed(Q: 6 Sit to Stand (QC): 5 Chair/Auj-ro-Egahj Xfer(QC): 5 Weight Bearing Full Weight Bearing Full Weight Bearing Gait Training Distance: 20'x2 Walk 10 feet (QC): 4 Gait Assistive Device: FWW SBA, slow but steady ambulation, patient ambulated to the restroom and back to recliner, patient was able to push pants down and then pull them up and wipe without assist Exercises Seated Therapy Exercises: Ankle pumps, Long arc quads Seated Reps: 20 Treatments bed mobility and transfers, ambulation, LE ROM, toileting Assessment Current Status: Fair Progress steady ambulation PT Short Term Goals Short Term Goals Time Frame: Mar 22, 2020 Lying to sitting on side of be: 4 Sit to stand: 4 Walk 50 feet with two turns: 4 Wheel 150 feet: 5 PT Bag Liner Goals Skilled Nursing Goals PT Bag Liner Goals Time Frame: Apr 05, 2020 Roll Left & Right (QC): 6 Sit to Lying (QC): 6 Lying-Sitting on Side/Bed(QC): 6 Sit to Stand (QC): 6 Chair/Yyp-tn-Mggip Xfer(QC): 6 Toilet Transfer (QC): 6 Car Transfer (QC): 5 Does the Patient Walk: Yes Walk 10 feet (QC): 6 Walk 50ft with 2 Turns (QC): 6 Walk 150 ft (QC): 5 Walking 10ft on Uneven Surface: 5 1 Step (curb) (QC): 4 4 Steps (QC): 9 12 Steps (QC): 9 Picking up an Object (QC): 6 (with a drill setup operator) Does the Pt use WC or Scooter?: Yes Wheel 50 feet with 2 turns (QC: 6 Type: Manual Wheel 150 feet: 6 Type: Manual PT Plan Problem List Problem List: Activity Tolerance, Functional Strength, Safety, Balance, Gait, Transfer Treatment/Plan Treatment Plan: Continue Plan of Care Treatment Plan: Bed Mobility, Education, Functional Activity Fede, Functional Strength, Group Therapy, Gait, Safety, Therapeutic Exercise, Transfers Treatment Duration: Apr 05, 2020 Frequency: At least 5 of 7 days/Wk (IRF) Estimated Hrs Per Day: Other (pt will achieve 15hrs over 7 days) Patient and/or Family Agrees t: Yes Safety Risks/Education Patient Education: Gait Training, Transfer Techniques, Correct Positioning, Safety Issues Teaching Recipient: Patient Teaching Methods: Demonstration, Discussion Response to Teaching: Reinforcement Needed Time/GCodes Time In: 824 Time Out: 0840 Total Billed Treatment Time: 15 Total Billed Treatment 1 visit FA CLAU HARPER PT Mar 20, 2020 08:40
[2020-03-20] MEDS: amLODIPine 5 MG (NORVASC) TAB PO SCH (08:47)
[2020-03-20] MEDS: meTOprolol SUCCINATE 100 MG (TOPROL XL) TAB PO SCH ×2 (08:47→19:48)
[2020-03-20] MEDS: FOLIC ACID 1 MG TAB PO SCH (08:47)
[2020-03-20] MEDS: METHOTREXATE 2.5 MG TAB PO SCH (08:47)
[2020-03-20] MEDS: LORATADINE (CLARITIN) 10 MG TAB PO SCH (08:47)
[2020-03-20] MEDS: PANTOPRAZOLE 40 MG (PROTONIX) TAB PO SCH ×2 (08:47→19:48)
[2020-03-20] MEDS: CYANOCOBALAMIN 1,000 MCG (VITAMIN B-12) TABLET PO SCH (08:47)
[2020-03-20] MEDS: TRIAMCINOLONE 0.1% CR (KENALOG) 80 GM TUBE TP SCH ×2 (08:48→19:51)
[2020-03-20] MEDS: CLOTRIMAZOLE 1% CREAM (LOTRIMIN) 30 GM TOP SCH ×2 (09:42→19:51)
[2020-03-20] MEDS: VITAMIN D3 25 MCG (1,000 UNITS) TABLET PO SCH (09:42)
[2020-03-20] MEDS: SENNA W/DOCUSATE (SENOKOT S) TABLET PO SCH ×2 (09:52→19:54)
[2020-03-20] MEDS: ADVAIR HFA 115/21 MCG INHALER 8 GM IH SCH ×2 (10:08→22:11)
--- NOTE | 2020-03-20 12:22 | PM&R Progress Note ---
Subjective HPI/CC On Admission Date Seen by Provider: Mar 20, 2020 Time Seen by Provider: 12:30 Subjective/Events-last exam 03/20/20: Patient doing well Fatigue is chronic CPAP being set up at home Loose stools at times 03/19/20: DC picc line since it is irritated CPAP getting set up for home O2 maintained BM today Nystatin will be used for yeast skin issues 03/18/20: Tired in mornings Increased BP noted Hydralazine and Clonidine given Venofer DC now Monitor sugar after restarting Metformin 03/17/20: Pt only used BiPAP for a couple of hours last night Restarting Metformin Hydralazine used for elevated BP Bowels moved three times already today 03/16/20: Bowels moved today Hydralazine given for elevated BP this morning BiPAP only for two hours last night 97% O2 sat Finishing antibiotics Doing well 03/15/20: Pt has dyspnea on exertion Wears O2 at home all the time 4 liters of O2 required on exertion AST and ALT are 91 and 62 respectively Decreased confusion WBC normal Hgb 9.2 03/14/20: BiPAP until 99 Xanax given for dyspnea but O2 sat was good BM today No pain issues 03/12/20: Zofran given today for nausea PPI and Carafate maintained for gastiritis treatment Complaining about the bland diet Needs biPAP at night and prn during the day for chronic hypercapnia : EGD and colonoscopy done today showing severe gastritis but colonoscopy was normal Rapidly desaturated oxygen-paz when she doesnt wear her oxygen to 67% Maintain on 4L per minute Kenalog cream for psoriasis will be ordered Overall seems to be doing pretty well now Pt is less SOB today after a two days course in ICU maintained on BiPAP and Vapotherm and now nasal cannula Heart rate 120s, I did consult Dr. Fuentes, gave her a dose of 50mg Metoprolol Maintain on 3 liters of oxygen now Will DC catheter Home meds will be restarted today Overall much improved Will change to a regular diet Bowels not moving but she hasnt eaten much Review of Systems General: Fatigue Objective Exam Vital Signs Vital Signs Date Time Temp Pulse Resp B/P (MAP) Pulse Ox O2 Delivery O2 Flow Rate FiO2 03/21/20 05:04 36.0 74 20 149/65 (93) 93 Nasal Cannula 3.00 Capillary Refill : Less Than 3 SecondsLess Than 3 Seconds General Appearance: No Apparent Distress, WD/WN, Chronically ill HEENT: PERRL/EOMI, Normal ENT Inspection, Pharynx Normal Neck: Full Range of Motion, Normal Inspection, Non Tender, Supple, Carotid Bruit Respiratory: Chest Non Tender, Lungs Clear, Normal Breath Sounds, No Accessory Muscle Use, No Respiratory Distress, Decreased Breath Sounds Cardiovascular: Regular Rate, Rhythm, No Edema, No Gallop, No JVD, No Murmur, Normal Peripheral Pulses Gastrointestinal: Normal Bowel Sounds, No Organomegaly, No Pulsatile Mass, Non Tender, Soft Back: Normal Inspection, No CVA Tenderness, No Vertebral Tenderness Extremity: Normal Capillary Refill, Normal Inspection, Normal Range of Motion, Non Tender, No Calf Tenderness, No Pedal Edema Neurologic/Psychiatric: Alert, Oriented x3, No Motor/Sensory Deficits, Normal Mood/Affect Skin: Normal Color, Warm/Dry Lymphatic: No Adenopathy Results/Procedures Lab Patient resulted labs reviewed. FIM Transfers Therapy Code Descriptions/Definitions Functional [place] Measure: 0=Not Assessed/NA 4=Minimal Assistance 1=Total Assistance 5=Supervision or Setup 2=Maximal Assistance 6=Modified [place] 3=Moderate Assistance 7=Complete IndependenceSCALE: Activities may be completed with or without assistive devices. 9-Ehlemxsnca-mxxdden completes the activity by him/herself with no assistance from a helper. 5-Set-up or Clean-up Assistance-helper sets up or cleans up; patient completes activity. [place] assists only prior to or following the activity. 4-Supervision or Touching Assistance-helper provides verbal cues and/or touching/steadying and/or contact guard assistance as patient completes activity. Assistance may be provided throughout the activity or intermittently. 3-Partial/Moderate Assistance-helper does LESS THAN HALF the effort. [place] lifts, holds or supports trunk or limbs, but provides less than half the effort. 2-Substantial/Maximal Assistance-helper does MORE THAN HALF the effort. [place] lifts or holds trunk or limbs and provides more than half the effort. 0-Oippddcrx-endaan does ALL the effort. Patient does none of the effort to complete the activity. Or, the assistance of 2 or more helpers is required for the patient to complete the activity. If activity was not attempted, code reason: 7-Patient Refused. 9-Not Applicable-not attempted and the patient did not perform the activity before the current illness, exacerbation or injury. 10-Not Attempted due to Environmental Limitations-(lack of equipment, weather restraints, etc.). 88-Not Attempted due to Medical Conditions or Safety Concerns. Roll Left to Right (QC): 6 Sit to Lying (QC): 4 Sit to Stand (QC): 5 Chair/Pji-tl-Zuikh Xfer(QC): 5 Car Transfer (QC): 88 (unable to tolerate this this date. ) Gait Training Does the Patient Walk?: Yes Distance: 20'x2 Walk 10 feet (QC): 4 Walk 50 ft with 2 Turns(QC): 4 Walk 150 ft (QC): 4 Walking 10ft/uneven surface-QC: 88 Gait Persons Needed: 1 Gait Assistive Device: FWW Wheelchair Training Does the Pt Use a Wheelchair?: Yes Distance: 50 ft Wheel 50 ft with 2 turns (QC): 1 Wheel 150 ft (QC): 1 Type of Wheelchair: Manual Stair Training 1 Step (curb) (QC): 7 4 Steps (QC): 9 12 Steps (QC): 9 Balance Picking up an Object (QC): 88 ADL-Treatment Eating (QC): 6 Oral Hygiene (QC): 6 Bathing Location: L Arm, R Arm, L Upper Leg, R Upper Leg, L Lower Leg (including foot), R Lower Leg (including foot), Chest, Abdomen, Perineal Area Shower/Bathe Self (QC): 4 (SBA for standing to wash tabatha and bottom) Upper Body Dressing (QC): 5 Lower Body Dressing (QC): 5 On/Off Footwear (QC): 6 Toileting Hygiene (QC): 6 Toilet Transfer (QC): 6 Assessment/Plan Assessment and Plan Assess & Plan/Chief Complaint Assessment: Severe debility due to acute on chronic respiratory failure h/o trach 05/29 h/o PEG tube 05/29 Mental illness precluding fast recovery Former smoker COPD OHS Dementia Plan: Monitor closely Inpatient rehabilitation protocol with therapies Dr Berman consultation appreciated 03/10/20: Restart IRF protocol Transfuse 1 unit of blood Consult Dr Evans may need scope, maintain PPI in meantime Appreciate Dr Fuentes and Dr Berman 03/11/20: Appreciate EGD and Colonoscopy from Dr Evans Gastritis treatment with PPI and Carafate 03/12/20: Bipap at night and prn during day when napping Monitor nausea PPI and Carafate 03/14/20: BiPAP at night and during naps Monitor dyspnea Change IV abx to PO 03/15/20: Maintain oxygen Labs reviewed Patient doing very well 03/16/20: Maintain Bipap at night Completed antibiotics Doing well 03/17/20: Have medical supply evaluate her CPAP machine Restart Metformin Bowels are moving very well today 03/18/20: Monitor sugar PT OT BiPAP as much as possible at night CPAP repair for home use 03/19/20: Monitor O2 BP management Doing well DC Sunday03/20/20: DC Sunday (1) Debility (2) Acute on chronic respiratory failure Status: Chronic (3) Morbid obesity Status: Acute (4) Generalized weakness Status: Acute (5) Bipolar disorder Status: Chronic (6) Dementia Status: Acute (7) Psoriasis Status: Chronic (8) Hypertension Status: Chronic (9) Lupus Status: Chronic (10) Oxygen dependent Status: Chronic (11) Obesity hypoventilation syndrome (12) Chronic mental illness Status: Chronic (13) Acute on chronic respiratory failure with hypoxia and hypercapnia Status: Acute SAMANTHA COLLIER DO Mar 20, 2020 12:22
[2020-03-20 16:00] VITALS: BP 138/59
[2020-03-20] MEDS: HYDROcodone/APAP 5 MG/325 MG (LORTAB) TAB PO PRN (17:33)
[2020-03-20] MEDS: ACETAMINOPHEN 500 MG TAB (TYLENOL) PO PRN (19:48)
[2020-03-20] MEDS: DONEPEZIL 10 MG (ARICEPT) TAB PO SCH (19:48)
[2020-03-20] MEDS: OLANZapine 5 MG (ZyPREXA) TAB PO SCH (19:48)
[2020-03-21] MEDS: RT-ALBUTEROL/IPRATROPIUM 3 ML (DUONEB) VIAL INH SCH ×6 (01:45→22:23)
--- NOTE | 2020-03-21 01:53 | NUR ---
Patient took bipap off at this time. O2 put back on patient.
[2020-03-21 05:04] VITALS: BP 149/65
[2020-03-21] MEDS: CATHETER FLUSH 10 ML SYR IV SCH ×3 (06:06→19:21)
[2020-03-21] MEDS: SUCRALFATE 1 GM (CARAFATE) TAB PO SCH ×4 (06:09→20:32)
[2020-03-21] MEDS: metFORMIN 500 MG (GLUCOPHAGE) TAB PO SCH ×2 (06:09→16:09)
[2020-03-21] MEDS: ADVAIR HFA 115/21 MCG INHALER 8 GM IH SCH ×2 (06:37→22:23)
--- NOTE | 2020-03-21 06:59 | PM&R Progress Note ---
Subjective HPI/CC On Admission Date Seen by Provider: Mar 21, 2020 Time Seen by Provider: 13:00 Subjective/Events-last exam 03/21/20: Flat affect continues DC Sunday03/20/20: Patient doing well Fatigue is chronic CPAP being set up at home Loose stools at times 03/19/20: DC picc line since it is irritated CPAP getting set up for home O2 maintained BM today Nystatin will be used for yeast skin issues 03/18/20: Tired in mornings Increased BP noted Hydralazine and Clonidine given Venofer DC now Monitor sugar after restarting Metformin 03/17/20: Pt only used BiPAP for a couple of hours last night Restarting Metformin Hydralazine used for elevated BP Bowels moved three times already today 03/16/20: Bowels moved today Hydralazine given for elevated BP this morning BiPAP only for two hours last night 97% O2 sat Finishing antibiotics Doing well 03/15/20: Pt has dyspnea on exertion Wears O2 at home all the time 4 liters of O2 required on exertion AST and ALT are 91 and 62 respectively Decreased confusion WBC normal Hgb 9.2 03/14/20: BiPAP until 99 Xanax given for dyspnea but O2 sat was good BM today No pain issues 03/12/20: Zofran given today for nausea PPI and Carafate maintained for gastiritis treatment Complaining about the bland diet Needs biPAP at night and prn during the day for chronic hypercapnia : EGD and colonoscopy done today showing severe gastritis but colonoscopy was normal Rapidly desaturated oxygen-paz when she doesnt wear her oxygen to 67% Maintain on 4L per minute Kenalog cream for psoriasis will be ordered Overall seems to be doing pretty well now Pt is less SOB today after a two days course in ICU maintained on BiPAP and Vapotherm and now nasal cannula Heart rate 120s, I did consult Dr. Fuentes, gave her a dose of 50mg Metoprolol Maintain on 3 liters of oxygen now Will DC catheter Home meds will be restarted today Overall much improved Will change to a regular diet Bowels not moving but she hasnt eaten much Review of Systems General: Fatigue, Malaise Pulmonary: Dyspnea Objective Exam Vital Signs Vital Signs Date Time Temp Pulse Resp B/P (MAP) Pulse Ox O2 Delivery O2 Flow Rate FiO2 03/21/20 20:00 Nasal Cannula 3.00 03/21/20 17:11 36.2 79 16 156/67 (96 94 Capillary Refill : Less Than 3 SecondsLess Than 3 Seconds General Appearance: No Apparent Distress, WD/WN, Chronically ill HEENT: PERRL/EOMI, Normal ENT Inspection, Pharynx Normal Neck: Full Range of Motion, Normal Inspection, Non Tender, Supple, Carotid Bruit Respiratory: Chest Non Tender, Lungs Clear, Normal Breath Sounds, No Accessory Muscle Use, No Respiratory Distress, Decreased Breath Sounds Cardiovascular: Regular Rate, Rhythm, No Edema, No Gallop, No JVD, No Murmur, Normal Peripheral Pulses Gastrointestinal: Normal Bowel Sounds, No Organomegaly, No Pulsatile Mass, Non Tender, Soft Back: Normal Inspection, No CVA Tenderness, No Vertebral Tenderness Extremity: Normal Capillary Refill, Normal Inspection, Normal Range of Motion, Non Tender, No Calf Tenderness, No Pedal Edema Neurologic/Psychiatric: Alert, Oriented x3, No Motor/Sensory Deficits, Normal Mood/Affect Skin: Normal Color, Warm/Dry Lymphatic: No Adenopathy Results/Procedures Lab Patient resulted labs reviewed. FIM Transfers Therapy Code Descriptions/Definitions Functional [place] Measure: 0=Not Assessed/NA 4=Minimal Assistance 1=Total Assistance 5=Supervision or Setup 2=Maximal Assistance 6=Modified [place] 3=Moderate Assistance 7=Complete IndependenceSCALE: Activities may be completed with or without assistive devices. 6-Lcwvnscwlw-uwzrkeg completes the activity by him/herself with no assistance from a helper. 5-Set-up or Clean-up Assistance-helper sets up or cleans up; patient completes activity. [place] assists only prior to or following the activity. 4-Supervision or Touching Assistance-helper provides verbal cues and/or touching/steadying and/or contact guard assistance as patient completes activity. Assistance may be provided throughout the activity or intermittently. 3-Partial/Moderate Assistance-helper does LESS THAN HALF the effort. [place] lif ts, holds or supports trunk or limbs, but provides less than half the effort. 2-Substantial/Maximal Assistance-helper does MORE THAN HALF the effort. [place] lifts or holds trunk or limbs and provides more than half the effort. 1-Alngocqxe-mmeouo does ALL the effort. Patient does none of the effort to complete the activity. Or, the assistance of 2 or more helpers is required for the patient to complete the activity. If activity was not attempted, code reason: 7-Patient Refused. 9-Not Applicable-not attempted and the patient did not perform the activity before the current illness, exacerbation or injury. 10-Not Attempted due to Environmental Limitations-(lack of equipment, weather restraints, etc.). 88-Not Attempted due to Medical Conditions or Safety Concerns. Roll Left to Right (QC): 6 Sit to Lying (QC): 4 Sit to Stand (QC): 5 Chair/Juu-fh-Occhl Xfer(QC): 5 Car Transfer (QC): 88 (unable to tolerate this this date. ) Gait Training Does the Patient Walk?: Yes Distance: 20'x2 Walk 10 feet (QC): 4 Walk 50 ft with 2 Turns(QC): 4 Walk 150 ft (QC): 4 Walking 10ft/uneven surface-QC: 88 Gait Persons Needed: 1 Gait Assistive Device: FWW Wheelchair Training Does the Pt Use a Wheelchair?: Yes Distance: 50 ft Wheel 50 ft with 2 turns (QC): 1 Wheel 150 ft (QC): 1 Type of Wheelchair: Manual Stair Training 1 Step (curb) (QC): 7 4 Steps (QC): 9 12 Steps (QC): 9 Balance Picking up an Object (QC): 88 ADL-Treatment Eating (QC): 6 Oral Hygiene (QC): 6 Bathing Location: L Arm, R Arm, L Upper Leg, R Upper Leg, L Lower Leg (including foot), R Lower Leg (including foot), Chest, Abdomen, Perineal Area Shower/Bathe Self (QC): 4 (SBA for standing to wash tabatha and bottom) Upper Body Dressing (QC): 5 Lower Body Dressing (QC): 5 On/Off Footwear (QC): 6 Toileting Hygiene (QC): 6 Toilet Transfer (QC): 6 Assessment/Plan Assessment and Plan Assess & Plan/Chief Complaint Assessment: Severe debility due to acute on chronic respiratory failure h/o trach 05/29 h/o PEG tube 05/29 Mental illness precluding fast recovery Former smoker COPD OHS Dementia Plan: Monitor closely Inpatient rehabilitation protocol with therapies Dr Berman consultation appreciated 03/10/20: Restart IRF protocol Transfuse 1 unit of blood Consult Dr Evans may need scope, maintain PPI in meantime Appreciate Dr Fuentes and Dr Berman 03/11/20: Appreciate EGD and Colonoscopy from Dr Evans Gastritis treatment with PPI and Carafate 03/12/20: Bipap at night and prn during day when napping Monitor nausea PPI and Carafate 03/14/20: BiPAP at night and during naps Monitor dyspnea Change IV abx to PO 03/15/20: Maintain oxygen Labs reviewed Patient doing very well 03/16/20: Maintain Bipap at night Completed antibiotics Doing well 03/17/20: Have medical supply evaluate her CPAP machine Restart Metformin Bowels are moving very well today 03/18/20: Monitor sugar PT OT BiPAP as much as possible at night CPAP repair for home use 03/19/20: Monitor O2 BP management Doing well DC Sunday03/20/20: DC Sunday03/21/20: DC Sunday (1) Debility (2) Acute on chronic respiratory failure Status: Chronic (3) Morbid obesity Status: Acute (4) Generalized weakness Status: Acute (5) Bipolar disorder Status: Chronic (6) Dementia Status: Acute (7) Psoriasis Status: Chronic (8) Hypertension Status: Chronic (9) Lupus Status: Chronic (10) Oxygen dependent Status: Chronic (11) Obesity hypoventilation syndrome (12) Chronic mental illness Status: Chronic (13) Acute on chronic respiratory failure with hypoxia and hypercapnia Status: Acute SAMANTHA COLLIER DO Mar 21, 2020 06:59
[2020-03-21] MEDS: amLODIPine 5 MG (NORVASC) TAB PO SCH (08:57)
[2020-03-21] MEDS: FOLIC ACID 1 MG TAB PO SCH (08:57)
[2020-03-21] MEDS: LORATADINE (CLARITIN) 10 MG TAB PO SCH (08:57)
[2020-03-21] MEDS: PANTOPRAZOLE 40 MG (PROTONIX) TAB PO SCH ×2 (08:57→20:32)
[2020-03-21] MEDS: meTOprolol SUCCINATE 100 MG (TOPROL XL) TAB PO SCH ×2 (08:57→20:32)
[2020-03-21] MEDS: CYANOCOBALAMIN 1,000 MCG (VITAMIN B-12) TABLET PO SCH (08:57)
[2020-03-21] MEDS: CLOTRIMAZOLE 1% CREAM (LOTRIMIN) 30 GM TOP SCH ×2 (08:57→20:32)
[2020-03-21] MEDS: TRIAMCINOLONE 0.1% CR (KENALOG) 80 GM TUBE TP SCH ×2 (08:58→20:33)
[2020-03-21] MEDS: VITAMIN D3 25 MCG (1,000 UNITS) TABLET PO SCH (09:00)
[2020-03-21] MEDS: SENNA W/DOCUSATE (SENOKOT S) TABLET PO SCH ×2 (09:01→19:20)
[2020-03-21] MEDS: ENOXAPARIN 40 MG/0.4 ML (LOVENOX) SYR SC SCH (11:08)
[2020-03-21] MEDS: HYDROcodone/APAP 5 MG/325 MG (LORTAB) TAB PO PRN (16:37)
[2020-03-21 17:11] VITALS: BP 156/67
[2020-03-21] MEDS: DONEPEZIL 10 MG (ARICEPT) TAB PO SCH (20:32)
[2020-03-21] MEDS: OLANZapine 5 MG (ZyPREXA) TAB PO SCH (20:32)
[2020-03-21] MEDS ORDERED: ACHD5005 PO (20:50)
[2020-03-21] MEDS ORDERED: MTP100TCR PO (20:50)
--- NOTE | 2020-03-21 20:54 | D/C HH Face to Face Order ---
D/C Face to Face Orders Reconcile Patient Problems Problems Reviewed?: Yes Instructions for Patient Via [facility], Patient Instructions/FollowUp: Dr Ward Physician to follow Patient: Baldemararlyn Discharge Diet for Home: ADA Diet Patient Problems: Chronic Respiratory Failure Patient Data-Allergies,Ht & Wt Patient Allergies: Coded Allergies: clindamycin (Unverified Allergy, Mild, HIVES, 11/21/09) meperidine (Unverified Allergy, Mild, HAS RECEIVED FENTANYL IN THE PAST, 08/11/09) morphine (Unverified Allergy, Mild, 11/21/09) doxycycline (Verified Allergy, Unknown, 06/14/19) codeine (Verified Adverse Reaction, Unknown, NAUSEA, 11/21/09) Height (Feet): 5 Height (Inches): 7.50 Weight (Pounds): 200 Weight (Ounces): 1.0 Home Health Need/Face to Face Date of Face to Face: Mar 21, 2020 Clinical Findings: Generalized weakness and fatigue, Instability, Muscle weakness, Shortness of breath I have seen Pt sdid-wj-lyyw: Yes Discharged To: Home Diagnosis/Conditions: Resp failure Patient is Homebound due to: CognItive deficits, Leydi fall risk due to instabilty, Pain w/ambulation, Shortness of breath/distress Homebound Status Due to the above stated illness, injury or surgical procedure (medical condition or diagnosis) and associated clinical findings, the patient is homebound because of his/her inability to leave home except with aid of a supportive device and/or person AND leaving the home requires a considerable and taxing effort or is medically contraindicated. Pt req the following assistanc: Walker Home Health Nursing Orders Home Health Services Order: Nursing Services, Bottle Tester-Evaluate & Treat, Physical Therapy-Evaluate & Treat Home Health Infusion Therapy Line Start Date: Mar 10, 2020 Certify Stmt I certify that this patient is under my care and that I, a nurse practitioner or a physician; a payroll and benefits assistant working with me, had a face to face encounter that - meets the physician face to face encounter requirements with this patient as dated. SAMANTHA COLLIER DO Mar 21, 2020 20:54
[2020-03-22] MEDS: ENOXAPARIN 40 MG/0.4 ML (LOVENOX) SYR SC SCH ×2 (00:15→11:40)
[2020-03-22] MEDS: RT-ALBUTEROL/IPRATROPIUM 3 ML (DUONEB) VIAL INH SCH ×3 (04:17→10:29)
[2020-03-22 05:03] VITALS: BP 136/60
[2020-03-22] MEDS: CATHETER FLUSH 10 ML SYR IV SCH ×2 (05:49→14:10)
[2020-03-22] MEDS: metFORMIN 500 MG (GLUCOPHAGE) TAB PO SCH ×2 (05:51→17:09)
[2020-03-22] MEDS: SUCRALFATE 1 GM (CARAFATE) TAB PO SCH ×3 (05:51→17:09)
[2020-03-22] MEDS: ADVAIR HFA 115/21 MCG INHALER 8 GM IH SCH (06:23)
[2020-03-22 06:41] LABS: BASOPHILS % (AUTO) 0 % (0-10); EOSINOPHILS # (AUTO) 0.4 10^3/uL (0.0-0.3); EOSINOPHILS % (AUTO) 4 % (0-10); HEMATOCRIT 31 % (35-52); HEMOGLOBIN 8.6 g/dL (11.5-16.0); LYMPHOCYTES # (AUTO) 2.2 10^3/uL (1.0-4.0); LYMPHOCYTES % (AUTO) 20 % (12-44); MEAN CORPUSCULAR HEMOGLOBIN 24 pg (25-34); MEAN CORPUSCULAR HGB CONC 28 g/dL (32-36); MEAN CORPUSCULAR VOLUME 88 fL (80-99); MEAN PLATELET VOLUME 10.6 fL (9.0-12.2); MONOCYTES # (AUTO) 0.6 10^3/uL (0.0-1.0); MONOCYTES % (AUTO) 6 % (0-12); NEUTROPHILS # (AUTO) 7.6 10^3/uL (1.8-7.8); NEUTROPHILS % (AUTO) 69 % (42-75); PLATELET COUNT 382 10^3/uL (130-400); WHITE BLOOD COUNT 10.9 10^3/uL (4.3-11.0)
[2020-03-22 06:51] LABS: ALBUMIN 3.5 GM/DL (3.2-4.5)
[2020-03-22 06:52] LABS: CHLORIDE 102 MMOL/L (98-107); POTASSIUM 3.7 MMOL/L (3.6-5.0); SODIUM 145 MMOL/L (135-145)
[2020-03-22 06:53] LABS: CALCIUM 9.2 MG/DL (8.5-10.1)
[2020-03-22 06:54] LABS: GLUCOSE 87 MG/DL (70-105)
[2020-03-22 06:55] LABS: CARBON DIOXIDE 31 MMOL/L (21-32)
[2020-03-22 06:56] LABS: BILIRUBIN,TOTAL 0.3 MG/DL (0.1-1.0)
[2020-03-22 06:57] LABS: ALKALINE PHOSPHATASE 86 U/L (40-136); CREATININE SERUM 0.74 MG/DL (0.60-1.30); GFR ESTIMATED > 60
[2020-03-22 06:58] LABS: BUN/CREATININE RATIO 15
[2020-03-22 07:00] LABS: ALANINE AMINOTRANSFERASE 17 U/L (0-55)
--- NOTE | 2020-03-22 08:23 | Physical Therapy Daily Note ---
PT Daily Note-Current Subjective Pt presents sitting in recliner. Pt agrees to PT. Pt voices no specific complaints of pain. Appearance At conclusion of PT treatment pt returns to recliner where she has access to tray, call button, and all needs have been met. Mental Status Patient Orientation: Person, Place, Time, Eyes Open, Situation Attachments: Oxygen Transfers SCALE: Activities may be completed with or without assistive devices. 3-Cpwriyjope-vegeclx completes the activity by him/herself with no assistance from a helper. 5-Set-up or Clean-up Assistance-helper sets up or cleans up; patient completes activity. [place] assists only prior to or following the activity. 4-Supervision or Touching Assistance-helper provides verbal cues and/or touching/steadying and/or contact guard assistance as patient completes activity. Assistance may be provided throughout the activity or intermittently. 3-Partial/Moderate Assistance-helper does LESS THAN HALF the effort. [place] lifts, holds or supports trunk or limbs, but provides less than half the effort. 2-Substantial/Maximal Assistance-helper does MORE THAN HALF the effort. [place] lifts or holds trunk or limbs and provides more than half the effort. 0-Jstajxtwb-dxtzre does ALL the effort. Patient does none of the effort to complete the activity. Or, the assistance of 2 or more helpers is required for the patient to complete the activity. If activity was not attempted, code reason: 7-Patient Refused. 9-Not Applicable-not attempted and the patient did not perform the activity before the current illness, exacerbation or injury. 10-Not Attempted due to Environmental Limitations-(lack of equipment, weather restraints, etc.). 88-Not Attempted due to Medical Conditions or Safety Concerns. Roll Left & Right (QC): 6 Sit to Lying (QC): 6 Lying to Sitting/Side of Bed(Q: 6 Sit to Stand (QC): 6 Chair/Cir-kx-Pjdls Xfer(QC): 6 Toilet Transfer (QC): 6 Car Transfer (QC): 6 Weight Bearing Full Weight Bearing Full Weight Bearing Gait Training Does the Patient Walk?: Yes Walk 10 feet (QC): 6 Walk 50 ft with 2 Turns(QC): 6 Walk 150 ft (QC): 4 Walking 10ft/uneven surface-QC: 4 Gait Assistive Device: FWW SBA Stair Training Stair Training: Handrails/: uses walker #of Steps: 1 1 Step (curb) (QC): 4 4 Steps (QC): 7 12 Steps (QC): 7 Stairs: Pattern: Step to CGA, patient refuses to do more than 1 step Balance Picking up an Object (QC): 4 Treatments Quality Codes Assessment Current Status: Good Progress Pt able to complete quality codes activities without assistance; some higher level tasks still require supervision as patient is slow with movements and fatigues easily. PT Short Term Goals Short Term Goals Time Frame: Mar 22, 2020 Lying to sitting on side of be: 4 Sit to stand: 4 Walk 50 feet with two turns: 4 Wheel 150 feet: 5 PT Manager Management Goals Manager Management Goals PT Manager Management Goals Time Frame: Apr 05, 2020 Roll Left & Right (QC): 6 Sit to Lying (QC): 6 Lying-Sitting on Side/Bed(QC): 6 Sit to Stand (QC): 6 Chair/Klj-fk-Hfvtr Xfer(QC): 6 Toilet Transfer (QC): 6 Car Transfer (QC): 5 Does the Patient Walk: Yes Walk 10 feet (QC): 6 Walk 50ft with 2 Turns (QC): 6 Walk 150 ft (QC): 5 Walking 10ft on Uneven Surface: 5 1 Step (curb) (QC): 4 4 Steps (QC): 9 12 Steps (QC): 9 Picking up an Object (QC): 6 (with a diversional therapist) Does the Pt use WC or Scooter?: Yes Wheel 50 feet with 2 turns (QC: 6 Type: Manual Wheel 150 feet: 6 Type: Manual PT Plan Problem List Problem List: Activity Tolerance, Functional Strength, Safety, Balance, Gait, Transfer, Bed Mobility, ROM Treatment/Plan Treatment Plan: Continue Plan of Care Treatment Plan: Bed Mobility, Education, Functional Activity Fede, Functional Strength, Group Therapy, Gait, Safety, Therapeutic Exercise, Transfers Treatment Duration: Apr 05, 2020 Frequency: At least 5 of 7 days/Wk (IRF) Estimated Hrs Per Day: Other (pt will achieve 15hrs over 7 days) Patient and/or Family Agrees t: Yes Safety Risks/Education Patient Education: Gait Training, Transfer Techniques, Steps, Correct Positioning, Safety Issues Teaching Recipient: Patient Teaching Methods: Demonstration, Discussion Response to Teaching: Reinforcement Needed Time/GCodes Time In: 0800 Time Out: 0820 Total Billed Treatment Time: 20 Total Billed Treatment 1 visit FA 20' CLAU SALAZAR PT Mar 22, 2020 08:23
--- NOTE | 2020-03-22 08:31 | Discharge Summary ---
Diagnosis/Chief Complaint Date of Admission Mar 08, 2020 at 13:28 Date of Discharge Discharge Date: Mar 22, 2020 Discharge Diagnosis Assessment: Severe debility due to acute on chronic respiratory failure h/o trach 05/29 h/o PEG tube 05/29 Mental illness precluding fast recovery Former smoker COPD OHS Dementia Plan: Monitor closely Inpatient rehabilitation protocol with therapies Dr Berman consultation appreciated 03/10/20: Restart IRF protocol Transfuse 1 unit of blood Consult Dr Evans may need scope, maintain PPI in meantime Appreciate Dr Fuentes and Dr Berman 03/11/20: Appreciate EGD and Colonoscopy from Dr Evans Gastritis treatment with PPI and Carafate 03/12/20: Bipap at night and prn during day when napping Monitor nausea PPI and Carafate 03/14/20: BiPAP at night and during naps Monitor dyspnea Change IV abx to PO 03/15/20: Maintain oxygen Labs reviewed Patient doing very well 03/16/20: Maintain Bipap at night Completed antibiotics Doing well 03/17/20: Have medical supply evaluate her CPAP machine Restart Metformin Bowels are moving very well today 03/18/20: Monitor sugar PT OT BiPAP as much as possible at night CPAP repair for home use 03/19/20: Monitor O2 BP management Doing well DC Sunday03/20/20: DC Sunday03/21/20: DC Sunday Discharge Summary Discharge Physical Examination Allergies: Coded Allergies: clindamycin (Unverified Allergy, Mild, HIVES, 11/21/09) meperidine (Unverified Allergy, Mild, HAS RECEIVED FENTANYL IN THE PAST, 08/11/09) morphine (Unverified Allergy, Mild, 11/21/09) doxycycline (Verified Allergy, Unknown, 06/14/19) codeine (Verified Adverse Reaction, Unknown, NAUSEA, 11/21/09) Vitals & I&Os Vital Signs Date Time Temp Pulse Resp B/P (MAP) Pulse Ox O2 Delivery O2 Flow Rate FiO2 03/22/20 17:30 36.0 76 18 138/68 96 Nasal Cannula 3.00 General Appearance: Alert, Oriented X3 Respiratory: Normal Air Movement Cardiovascular: Regular Rate Neuro: Normal Speech Hospital Course Was the Problem List Reviewed?: Yes Hospital course: Pt had a lengthy hospital course for 14 days in inpatient rehab, she did have an ICU stay for respiratory failure acute on-chronic requiring ICU admission for two days and then returning to inpatient rehab. She was able to participate in all therapy, she was able to be managed in an aggressive manner with the placement of a midline, finished IV antibiotics, IV steroids, nebulizer treatments, oxygen supplementation and BiPAP with the use of that at night. She did have her CPAP sent for repair form [employer] at time of discharge. Labs remain stable and Pt was deemed ready for discharge with home health, and close follow-up with PCP Dr. Ward. Labs (last 24 hrs) Laboratory Tests 03/08/20 15:25: Blood Gas Puncture Site RR, Blood Gas Patient Temperature 36.6, Arterial Blood pH 7.35L, Arterial Blood Partial Pressure CO2 74*H, Arterial Blood Partial Pressure O2 107H, Arterial Blood HCO3 40H, Arterial Blood Total CO2 42.5H, Arterial Blood Oxygen Saturation 98, Arterial Blood Base Excess 14.0H, Merlin Test YES-POS, Blood Gas Ventilator Setting NO, Blood Gas Inspired Oxygen 2L 03/08/20 18:21: Blood Gas Puncture Site UNK, Blood Gas Patient Temperature 36.5, Arterial Blood pH 7.39, Arterial Blood Partial Pressure CO2 68H, Arterial Blood Partial Pressure O2 133H, Arterial Blood HCO3 41*H, Arterial Blood Total CO2 42.7H, Arterial Blood Oxygen Saturation 99, Arterial Blood Base Excess 14.8H, Merlin Test YES-POS, Blood Gas Ventilator Setting NO, Blood Gas Inspired Oxygen 40% 03/08/20 18:44: White Blood Count 16.2H, Red Blood Count 3.36L, Hemoglobin 7.6L, Hematocrit 28L, Mean Corpuscular Volume 85, Mean Corpuscular Hemoglobin 23L, Mean Corpuscular Hemoglobin Concent 27L, Red Cell Distribution Width 16.8H, Platelet Count 519H, Mean Platelet Volume 9.8, Neutrophils (%) (Auto) 64, Lymphocytes (%) (Auto) 25, Monocytes (%) (Auto) 8, Eosinophils (%) (Auto) 2, Basophils (%) (Auto) 0, Neutrophils # (Auto) 10.4H, Lymphocytes # (Auto) 4.1H, Monocytes # (Auto) 1.3H, Eosinophils # (Auto) 0.4H, Basophils # (Auto) 0.0, Neutrophils % (Manual) 72, Lymphocytes % (Manual) 21, Monocytes % (Manual) 6, Eosinophils % (Manual) 1, Hypochromasia MODERATE, Basophilic Stippling SLIGHT, Anisocytosis MODERATE, Stomatocytes MODERATE, Sodium Level 141, Potassium Level 4.5, Chloride Level 97L , Carbon Dioxide Level 39H, Anion Gap 5, Blood Urea Nitrogen 18, Creatinine 0.87, Estimat Glomerular Filtration Rate > 60, BUN/Creatinine Ratio 21, Glucose Level 96, Calcium Level 8.6, Phosphorus Level 2.7, Magnesium Level 1.8 03/09/20 03:24: White Blood Count 12.0H, Red Blood Count 3.41L, Hemoglobin 7.8L, Hematocrit 28L, Mean Corpuscular Volume 83, Mean Corpuscular Hemoglobin 23L, Mean Corpuscular Hemoglobin Concent 28L, Red Cell Distribution Width 16.8H, Platelet Count 440H, Mean Platelet Volume 9.8, Neutrophils (%) (Auto) 48, Lymphocytes (%) (Auto) 39, Monocytes (%) (Auto) 8, Eosinophils (%) (Auto) 4, Basophils (%) (Auto) 1, Neutrophils # (Auto) 5.8, Lymphocytes # (Auto) 4.6H, Monocytes # (Auto) 0.9, Eosinophils # (Auto) 0.5H, Basophils # (Auto) 0.1, Sodium Level 141, Potassium Level 3.9, Chloride Level 98, Carbon Dioxide Level 34H, Anion Gap 9, Blood Urea Nitrogen 17, Creatinine 0.78, Estimat Glomerular Filtration Rate > 60, BUN/Creatinine Ratio 22, Glucose Level 87, Calcium Level 8.4L, Immature Granulocyte % (Auto) 1, Immature Granulocyte # (Auto) 0.1, Corrected Calcium 8.9, Total Bilirubin 0.2, Aspartate Amino Transf (AST/SGOT) 14, Alanine Aminotransferase (ALT/SGPT) 10, Alkaline Phosphatase 76, Total Protein 5.7L, Albumin 3.4 03/11/20 05:48: White Blood Count 12.5H, Red Blood Count 4.15, Hemoglobin 9.5#L, Hematocrit 35, Mean Corpuscular Volume 83, Mean Corpuscular Hemoglobin 23L, Mean Corpuscular Hemoglobin Concent 28L, Red Cell Distribution Width 16.9H, Platelet Count 440H, Mean Platelet Volume 9.6, Immature Granulocyte % (Auto) 2, Neutrophils (%) (Auto) 66, Lymphocytes (%) (Auto) 20, Monocytes (%) (Auto) 7, Eosinophils (%) (Auto) 5, Basophils (%) (Auto) 0, Neutrophils # (Auto) 8.3H, Lymphocytes # (Auto) 2.5, Monocytes # (Auto) 0.9, Eosinophils # (Auto) 0.6H, Basophils # (Auto) 0.1, Immature Granulocyte # (Auto) 0.2H, Sodium Level 144, Potassium Level 4.2, Chloride Level 99, Carbon Dioxide Level 33H, Anion Gap 12, Blood Urea Nitrogen 9, Creatinine 1.08, Estimat Glomerular Filtration Rate 52, BUN/Creatinine Ratio 8, Glucose Level 117H, Calcium Level 8.6, Corrected Calcium 8.9, Total Bilirubin 0.3, Aspartate Amino Transf (AST/SGOT) 20, Alanine Aminotransferase (ALT/SGPT) 16, Alkaline Phosphatase 82, B-Type Natriuretic Peptide 38.9, Total Protein 6.3L, Albumin 3.6 03/12/20 05:35: Glucometer 116H 03/12/20 11:15: Glucometer 78 03/12/20 11:30: Glucometer 76 03/12/20 12:20: Glucometer 61L 03/12/20 12:43: White Blood Count 13.2H, Red Blood Count 4.02, Hemoglobin 9.3L, Hematocrit 35, Mean Corpuscular Volume 88, Mean Corpuscular Hemoglobin 23L, Mean Corpuscular Hemoglobin Concent 26L, Red Cell Distribution Width 17.3H, Platelet Count 401H, Mean Platelet Volume 9.9, Immature Granulocyte % (Auto) 1, Neutrophils (%) (Auto) 68, Lymphocytes (%) (Auto) 17, Monocytes (%) (Auto) 8, Eosinophils (%) (Auto) 6, Basophils (%) (Auto) 0, Neutrophils # (Auto) 9.0H, Lymphocytes # (Auto) 2.2, Monocytes # (Auto) 1.0, Eosinophils # (Auto) 0.8H, Basophils # (Auto) 0.1, Immature Granulocyte # (Auto) 0.1, Sodium Level 143, Potassium Level 4.6, Chloride Level 99, Carbon Dioxide Level 34H, Anion Gap 10, Blood Urea Nitrogen 11, Creatinine 1.00, Estimat Glomerular Filtration Rate 57, BUN/Creatinine Ratio 11, Glucose Level 105, Calcium Level 9.1, Corrected Calcium 9.4, Total Bilirubin 0.2, Aspartate Amino Transf (AST/SGOT) 19, Alanine Aminotransferase (ALT/SGPT) 15, Alkaline Phosphatase 80, Total Protein 6.4, Albumin 3.6 03/12/20 16:28: Glucometer 115H 03/13/20 07:17: Glucometer 114H 03/13/20 11:56: Glucometer 79 03/13/20 17:26: Glucometer 102 03/14/20 05:50: Glucometer 110 03/14/20 16:44: Glucometer 125H 03/15/20 06:10: White Blood Count 10.2, Red Blood Count 3.95, Hemoglobin 9.2L, Hematocrit 34L, Mean Corpuscular Volume 86, Mean Corpuscular Hemoglobin 23L, Mean Corpuscular Hemoglobin Concent 27L, Red Cell Distribution Width 19.4H, Platelet Count 340, Mean Platelet Volume 9.9, Immature Granulocyte % (Auto) 1, Neutrophils (%) (Auto) 71, Lymphocytes (%) (Auto) 18, Monocytes (%) (Auto) 5, Eosinophils (%) (Auto) 5, Basophils (%) (Auto) 1, Neutrophils # (Auto) 7.3, Lymphocytes # (Auto) 1.8, Monocytes # (Auto) 0.5, Eosinophils # (Auto) 0.5H, Basophils # (Auto) 0.1, Immature Granulocyte # (Auto) 0.1, Sodium Level 145, Potassium Level 3.8, Chloride Level 102, Carbon Dioxide Level 31, Anion Gap 12, Blood Urea Nitrogen 8, Creatinine 0.82, Estimat Glomerular Filtration Rate > 60, BUN/Creatinine Ratio 10, Glucose Level 102, Calcium Level 9.0, Corrected Calcium 9.2, Total Bilirubin 0.2, Aspartate Amino Transf (AST/SGOT) 91H, Alanine Aminotransferase (ALT/SGPT) 62H, Alkaline Phosphatase 88, B-Type Natriuretic Peptide 35.6, Total Protein 6.5, Albumin 3.7 03/15/20 09:30: Lactic Acid Level 1.46 03/15/20 11:35: Blood Gas Puncture Site LT RAD, Blood Gas Patient Temperature 36.4, Arterial Blood pH 7.35L, Arterial Blood Partial Pressure CO2 66H, Arterial Blood Partial Pressure O2 79, Arterial Blood HCO3 36H, Arterial Blood Total CO2 37.9H, Arterial Blood Oxygen Saturation 96, Arterial Blood Base Excess 9.9H, Merlin Test YES-POS, Blood Gas Ventilator Setting NO, Blood Gas Inspired Oxygen 3.5 L 03/15/20 16:20: Glucometer 142H 03/16/20 06:10: Glucometer 110 03/16/20 15:31: Glucometer 153H 03/17/20 05:54: Glucometer 124H 03/17/20 15:36: Glucometer 110 03/18/20 06:02: Glucometer 112H 03/18/20 16:26: Glucometer 97 03/19/20 05:47: Glucometer 107 03/19/20 15:22: Glucometer 118H 03/20/20 06:33: Glucometer 103 03/20/20 15:37: Glucometer 133H 03/21/20 06:09: Glucometer 92 03/21/20 16:04: Glucometer 98 03/22/20 05:29: Glucometer 89 03/22/20 05:40: White Blood Count 10.9, Red Blood Count 3.52L, Hemoglobin 8.6L, Hematocrit 31L, Mean Corpuscular Volume 88, Mean Corpuscular Hemoglobin 24L, Mean Corpuscular Hemoglobin Concent 28L, Red Cell Distribution Width 21.8H, Platelet Count 382, Mean Platelet Volume 10.6, Immature Granulocyte % (Auto) 0, Neutrophils (%) (Auto) 69, Lymphocytes (%) (Auto) 20, Monocytes (%) (Auto) 6, Eosinophils (%) (Auto) 4, Basophils (%) (Auto) 0, Neutrophils # (Auto) 7.6, Lymphocytes # (Auto) 2.2, Monocytes # (Auto) 0.6, Eosinophils # (Auto) 0.4H, Basophils # (Auto) 0.0, Immature Granulocyte # (Auto) 0.0, Sodium Level 145, Potassium Level 3.7, Chloride Level 102, Carbon Dioxide Level 31, Anion Gap 12, Blood Urea Nitrogen 11, Creatinine 0.74, Estimat Glomerular Filtration Rate > 60, BUN/Creatinine Ratio 15, Glucose Level 87, Calcium Level 9.2, Corrected Calcium 9.6, Total Bilirubin 0.3, Aspartate Amino Transf (AST/SGOT) 19, Alanine Aminotransferase (ALT/SGPT) 17, Alkaline Phosphatase 86, Total Protein 6.0L, Albumin 3.5 03/22/20 15:25: Glucometer 101 Pending Labs Laboratory Tests 03/08/20 15:25: Blood Gas Puncture Site RR, Blood Gas Patient Temperature 36.6, Arterial Blood pH 7.35, Arterial Blood Partial Pressure CO2 74, Arterial Blood Partial Pressure O2 107, Arterial Blood HCO3 40, Arterial Blood Total CO2 42.5, Arterial Blood Oxygen Saturation 98, Arterial Blood Base Excess 14.0, Merlin Test YES-POS, Blood Gas Ventilator Setting NO, Blood Gas Inspired Oxygen 2L 03/08/20 18:21: Blood Gas Puncture Site UNK, Blood Gas Patient Temperature 36.5, Arterial Blood pH 7.39, Arterial Blood Partial Pressure CO2 68, Arterial Blood Partial Pressure O2 133, Arterial Blood HCO3 41, Arterial Blood Total CO2 42.7, Arterial Blood Oxygen Saturation 99, Arterial Blood Base Excess 14.8, Merlin Test YES-POS, Blood Gas Ventilator Setting NO, Blood Gas Inspired Oxygen 40% 03/08/20 18:44: White Blood Count 16.2, Red Blood Count 3.36, Hemoglobin 7.6, Hematocrit 28, Mean Corpuscular Volume 85, Mean Corpuscular Hemoglobin 23, Mean Corpuscular Hemoglobin Concent 27, Red Cell Distribution Width 16.8, Platelet Count 519, Mean Platelet Volume 9.8, Neutrophils (%) (Auto) 64, Lymphocytes (%) (Auto) 25, Monocytes (%) (Auto) 8, Eosinophils (%) (Auto) 2, Basophils (%) (Auto) 0, Neutrophils # (Auto) 10.4, Lymphocytes # (Auto) 4.1, Monocytes # (Auto) 1.3, Eosinophils # (Auto) 0.4, Basophils # (Auto) 0.0, Neutrophils % (Manual) 72, Lymphocytes % (Manual) 21, Monocytes % (Manual) 6, Eosinophils % (Manual) 1, Hypochromasia MODERATE, Basophilic Stippling SLIGHT, Anisocytosis MODERATE, Stomatocytes MODERATE, Sodium Level 141, Potassium Level 4.5, Chloride Level 97, Carbon Dioxide Level 39, Anion Gap 5, Blood Urea Nitrogen 18, Creatinine 0.87, Estimat Glomerular Filtration Rate > 60, BUN/Creatinine Ratio 21, Glucose Level 96, Calcium Level 8.6, Phosphorus Level 2.7, Magnesium Level 1.8 03/09/20 03:24: White Blood Count 12.0, Red Blood Count 3.41, Hemoglobin 7.8, Hematocrit 28, Mean Corpuscular Volume 83, Mean Corpuscular Hemoglobin 23, Mean Corpuscular Hemoglobin Concent 28, Red Cell Distribution Width 16.8, Platelet Count 440, Mean Platelet Volume 9.8, Neutrophils (%) (Auto) 48, Lymphocytes (%) (Auto) 39, Monocytes (%) (Auto) 8, Eosinophils (%) (Auto) 4, Basophils (%) (Auto) 1, Neutrophils # (Auto) 5.8, Lymphocytes # (Auto) 4.6, Monocytes # (Auto) 0.9, Eosinophils # (Auto) 0.5, Basophils # (Auto) 0.1, Sodium Level 141, Potassium Level 3.9, Chloride Level 98, Carbon Dioxide Level 34, Anion Gap 9, Blood Urea Nitrogen 17, Creatinine 0.78, Estimat Glomerular Filtration Rate > 60, BUN/Creatinine Ratio 22, Glucose Level 87, Calcium Level 8.4, Immature Granulocyte % (Auto) 1, Immature Granulocyte # (Auto) 0.1, Corrected Calcium 8.9, Total Bilirubin 0.2, Aspartate Amino Transf (AST/SGOT) 14, Alanine Aminotransferase (ALT/SGPT) 10, Alkaline Phosphatase 76, Total Protein 5.7, Albumin 3.4 03/11/20 05:48: White Blood Count 12.5, Red Blood Count 4.15, Hemoglobin 9.5, Hematocrit 35, M destiny Corpuscular Volume 83, Mean Corpuscular Hemoglobin 23, Mean Corpuscular Hemoglobin Concent 28, Red Cell Distribution Width 16.9, Platelet Count 440, Mean Platelet Volume 9.6, Immature Granulocyte % (Auto) 2, Neutrophils (%) (Auto) 66, Lymphocytes (%) (Auto) 20, Monocytes (%) (Auto) 7, Eosinophils (%) (Auto) 5, Basophils (%) (Auto) 0, Neutrophils # (Auto) 8.3, Lymphocytes # (Auto) 2.5, Monocytes # (Auto) 0.9, Eosinophils # (Auto) 0.6, Basophils # (Auto) 0.1, Immature Granulocyte # (Auto) 0.2, Sodium Level 144, Potassium Level 4.2, Chloride Level 99, Carbon Dioxide Level 33, Anion Gap 12, Blood Urea Nitrogen 9, Creatinine 1.08, Estimat Glomerular Filtration Rate 52, BUN/Creatinine Ratio 8, Glucose Level 117, Calcium Level 8.6, Corrected Calcium 8.9, Total Bilirubin 0.3, Aspartate Amino Transf (AST/SGOT) 20, Alanine Aminotransferase (ALT/SGPT) 16, Alkaline Phosphatase 82, B-Type Natriuretic Peptide 38.9, Total Protein 6.3, Albumin 3.6 03/12/20 05:35: Glucometer 116 03/12/20 11:15: Glucometer 78 03/12/20 11:30: Glucometer 76 03/12/20 12:20: Glucometer 61 03/12/20 12:43: White Blood Count 13.2, Red Blood Count 4.02, Hemoglobin 9.3, Hematocrit 35, Mean Corpuscular Volume 88, Mean Corpuscular Hemoglobin 23, Mean Corpuscular Hemoglobin Concent 26, Red Cell Distribution Width 17.3, Platelet Count 401, Mean Platelet Volume 9.9, Immature Granulocyte % (Auto) 1, Neutrophils (%) (Auto) 68, Lymphocytes (%) (Auto) 17, Monocytes (%) (Auto) 8, Eosinophils (%) (Auto) 6, Basophils (%) (Auto) 0, Neutrophils # (Auto) 9.0, Lymphocytes # (Auto) 2.2, Monocytes # (Auto) 1.0, Eosinophils # (Auto) 0.8, Basophils # (Auto) 0.1, Immature Granulocyte # (Auto) 0.1, Sodium Level 143, Potassium Level 4.6, Chloride Level 99, Carbon Dioxide Level 34, Anion Gap 10, Blood Urea Nitrogen 11, Creatinine 1.00, Estimat Glomerular Filtration Rate 57, BUN/Creatinine Ratio 11, Glucose Level 105, Calcium Level 9.1, Corrected Calcium 9.4, Total Bilirubin 0.2, Aspartate Amino Transf (AST/SGOT) 19, Alanine Aminotransferase (ALT/SGPT) 15, Alkaline Phosphatase 80, Total Protein 6.4, Albumin 3.6 03/12/20 16:28: Glucometer 115 03/13/20 07:17: Glucometer 114 03/13/20 11:56: Glucometer 79 03/13/20 17:26: Glucometer 102 03/14/20 05:50: Glucometer 110 03/14/20 16:44: Glucometer 125 03/15/20 06:10: White Blood Count 10.2, Red Blood Count 3.95, Hemoglobin 9.2, Hematocrit 34, Mean Corpuscular Volume 86, Mean Corpuscular Hemoglobin 23, Mean Corpuscular Hemoglobin Concent 27, Red Cell Distribution Width 19.4, Platelet Count 340, Mean Platelet Volume 9.9, Immature Granulocyte % (Auto) 1, Neutrophils (%) (Auto) 71, Lymphocytes (%) (Auto) 18, Monocytes (%) (Auto) 5, Eosinophils (%) (Auto) 5, Basophils (%) (Auto) 1, Neutrophils # (Auto) 7.3, Lymphocytes # (Auto) 1.8, Monocytes # (Auto) 0.5, Eosinophils # (Auto) 0.5, Basophils # (Auto) 0.1, I mmature Granulocyte # (Auto) 0.1, Sodium Level 145, Potassium Level 3.8, Chloride Level 102, Carbon Dioxide Level 31, Anion Gap 12, Blood Urea Nitrogen 8, Creatinine 0.82, Estimat Glomerular Filtration Rate > 60, BUN/Creatinine Ratio 10, Glucose Level 102, Calcium Level 9.0, Corrected Calcium 9.2, Total Bilirubin 0.2, Aspartate Amino Transf (AST/SGOT) 91, Alanine Aminotransferase ( ALT/SGPT) 62, Alkaline Phosphatase 88, B-Type Natriuretic Peptide 35.6, Total Protein 6.5, Albumin 3.7 03/15/20 09:30: Lactic Acid Level 1.46 03/15/20 11:35: Blood Gas Puncture Site LT RAD, Blood Gas Patient Temperature 36.4, Arterial Blood pH 7.35, Arterial Blood Partial Pressure CO2 66, Arterial Blood Partial Pressure O2 79, Arterial Blood HCO3 36, Arterial Blood Total CO2 37.9, Arterial Blood Oxygen Saturation 96, Arterial Blood Base Excess 9.9, Merlin Test YES-POS, Blood Gas Ventilator Setting NO, Blood Gas Inspired Oxygen 3.5 L 03/15/20 16:20: Glucometer 142 03/16/20 06:10: Glucometer 110 03/16/20 15:31: Glucometer 153 03/17/20 05:54: Glucometer 124 03/17/20 15:36: Glucometer 110 03/18/20 06:02: Glucometer 112 03/18/20 16:26: Glucometer 97 03/19/20 05:47: Glucometer 107 03/19/20 15:22: Glucometer 118 03/20/20 06:33: Glucometer 103 03/20/20 15:37: Glucometer 133 03/21/20 06:09: Glucometer 92 03/21/20 16:04: Glucometer 98 03/22/20 05:29: Glucometer 89 03/22/20 05:40: White Blood Count 10.9, Red Blood Count 3.52, Hemoglobin 8.6, Hematocrit 31, Mean Corpuscular Volume 88, Mean Corpuscular Hemoglobin 24, Mean Corpuscular Hemoglobin Concent 28, Red Cell Distribution Width 21.8, Platelet Count 382, Mean Platelet Volume 10.6, Immature Granulocyte % (Auto) 0, Neutrophils (%) (Auto) 69, Lymphocytes (%) (Auto) 20, Monocytes (%) (Auto) 6, Eosinophils (%) (Auto) 4, Basophils (%) (Auto) 0, Neutrophils # (Auto) 7.6, Lymphocytes # (Auto) 2.2, Monocytes # (Auto) 0.6, Eosinophils # (Auto) 0.4, Basophils # (Auto) 0.0, Immature Granulocyte # (Auto) 0.0, Sodium Level 145, Potassium Level 3.7, Chloride Level 102, Carbon Dioxide Level 31, Anion Gap 12, Blood Urea Nitrogen 11, Creatinine 0.74, Estimat Glomerular Filtration Rate > 60, BUN/Creatinine Ratio 15, Glucose Level 87, Calcium Level 9.2, Corrected Calcium 9.6, Total Bilirubin 0.3, Aspartate Amino Transf (AST/SGOT) 19, Alanine Aminotransferase (ALT/SGPT) 17, Alkaline Phosphatase 86, Total Protein 6.0, Albumin 3.5 03/22/20 15:25: Glucometer 101 Discharge Home Medications: Active Scripts Active Hydrocodone-Acetamin 5-325 mg (Hydrocodone/Acetaminophen) 1 Each Tablet 1 Tab PO Q4H PRN Metoprolol Succinate 100 Mg Tab.er.24h 100 Mg PO BID Omeprazole 20 Mg Tablet.dr 20 Mg PO DAILY 30 Days Sucralfate 1 Gm Tablet 1 Gm PO TIDAC 30 Days Olanzapine 10 Mg Tablet 10 Mg PO HS 30 Days TAKE WITH 20 MG TABLET AT HS TO EQUAL 30 MG Olanzapine 20 Mg Tablet 20 Mg PO HS 30 Days TAKE WITH 10 MG AT HS Methotrexate (Methotrexate Sodium) 2.5 Mg Tablet 2.5 Mg PO UD 30 Days 7.5 MG PO ON SUNDAY Metformin HCl 500 Mg Tablet 500 Mg PO BIDAC 30 Days Folic Acid 0.8 Mg Tablet 1 Mg PO DAILY 30 Days Advair Hfa 115-21 Mcg Inhaler (Fluticasone/Salmeterol) 12 Gm Hfa.aer.ad 2 Puff IH BID 30 Days B-12 (Cyanocobalamin (Vitamin B-12)) 1,000 Mcg Tablet 1,000 Mcg PO DAILY 30 Days Vitamin D3 (Cholecalciferol (Vitamin D3)) 50 Mcg Capsule 100 Mcg PO DAILY 30 Days TAKES TWO 50 MCG TAB DAILY Cetirizine HCl 10 Mg Tablet 10 Mg PO DAILY 30 Days Atorvastatin Calcium 10 Mg Tablet 10 Mg PO HS 30 Days Amlodipine Besylate 5 Mg Tablet 5 Mg PO DAILY 30 Days Proair Hfa (Albuterol Sulfate) 1 Puff Puff 2 Puff IH Q4H 30 Days 1 PUFF = 90 MCG Donepezil HCl 10 Mg Tablet 10 Mg PO HS 30 Days Instructions to patient/family Please see electronic discharge instructions given to patient. Diagnosis/Problems Diagnosis/Problems (1) Debility (2) Acute on chronic respiratory failure Status: Chronic (3) Morbid obesity Status: Acute (4) Generalized weakness Status: Acute (5) Bipolar disorder Status: Chronic (6) Dementia Status: Acute (7) Psoriasis Status: Chronic (8) Hypertension Status: Chronic (9) Lupus Status: Chronic (10) Oxygen dependent Status: Chronic (11) Obesity hypoventilation syndrome (12) Chronic mental illness Status: Chronic (13) Acute on chronic respiratory failure with hypoxia and hypercapnia Status: Acute Clinical Quality Measures DVT/VTE Risk/Contraindication: Risk Factor Score Per Nursin RFS Level Per Nursing on Admit: 4+=Very High SAMANTHA COLLIER DO Mar 22, 2020 08:31
--- NOTE | 2020-03-22 08:36 | Therapy Team Discharge Summary ---
Therapy Discharge Summary Discharge Recommendations Date of Discharge Physical Therapy Patient came to rehab with debility. Upon evaluation patient performed bed mobility and transfers with min assist, ambulated 25' with a rolling walker with min assist, and propelled a manual WC 50' with SBA. Patient has been performing bed mobility and transfer training, balance and endurance training, functional strengthening, stair training, gait training, and education. 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 Now, patient performs bed mobility and transfers with independence, car transfer independent, ambulates 150' with a rolling walker with SBA (50' with at least 2 turns of 90 degrees with independence but 10' over an uneven surface with SBA), can go up and down 1 step using a rolling walker with SBA, and can oyster picker an object from the floor with SBA. Patient is discharging from this facility today and will be discharged from PT at this time. Occupational Therapy Decreased Activ Tolerance, Decreased UE Strength, Impaired Funct Balance, Impaired I ADL's, Impaired Self-Care Skills, Restricted Funct UE ROM PT Retirement Goals Retirement Goals PT Business Assistant Goals Time Frame: Apr 05, 2020 Roll Left to Right (QC): 6 Sit to Lying (QC): 6 Lying-Sitting on Side/Bed(QC): 6 Sit to Stand (QC): 6 Chair/[id number] Xfer(QC): 6 Car Transfer (QC): 5 Does the Patient Walk: Yes Walk 10 feet (QC): 6 Walk 10ft-Uneven Surface(QC): 5 Walk 50ft with 2 Turns (QC): 6 Walk 150 ft (QC): 5 Does the Pt use WC or Scooter?: Yes Wheel 50 feet with 2 turns (QC: 6 1 Step (curb) (QC): 4 4 Steps (QC): 9 12 Steps (QC): 9 Picking up an Object (QC): 6 (with a tour bus driver/guide) OT Business Assistant Goals Business Assistant Goals Time Frame: Apr 02, 2020 Eating (FIM): 6 Eating (QC): 6 Oral Hygiene (QC): 6 Shower/Bathe Self (QC): 6 Upper Body Dressing (QC): 6 Lower Body Dressing (QC): 6 On/Off Footwear (QC): 6 Toileting(FIM): 6 Toileting Hygiene (QC): 6 Toilet/Commode Transfer (QC): 6 Additional Goals: 1-Demonstrate ADL Tasks, 2-Verbalize Understanding, 3-Imp roveStrength/Fede 1=Demonstrate adherence to instructed precautions during ADL tasks. 2=Patient will verbalize/demonstrate understanding of assistive devices/modifications for ADL. 3=Patient will improve strength/tolerance for activity to enable patient to perform ADL's. Speech Retirement Goals Retirement Goals The patient will improve her cognitive communication abilities to be able to complete daily tasks with minimal assist. CLAU SALAZAR PT Mar 22, 2020 08:36
[2020-03-22] MEDS: CYANOCOBALAMIN 1,000 MCG (VITAMIN B-12) TABLET PO SCH (08:37)
[2020-03-22] MEDS: SENNA W/DOCUSATE (SENOKOT S) TABLET PO SCH ×2 (08:38→08:42)
[2020-03-22] MEDS: VITAMIN D3 25 MCG (1,000 UNITS) TABLET PO SCH (08:38)
[2020-03-22] MEDS: meTOprolol SUCCINATE 100 MG (TOPROL XL) TAB PO SCH (08:39)
[2020-03-22] MEDS: PANTOPRAZOLE 40 MG (PROTONIX) TAB PO SCH (08:39)
[2020-03-22] MEDS: amLODIPine 5 MG (NORVASC) TAB PO SCH (08:40)
[2020-03-22] MEDS: FOLIC ACID 1 MG TAB PO SCH (08:41)
[2020-03-22] MEDS: LORATADINE (CLARITIN) 10 MG TAB PO SCH (08:41)
[2020-03-22] MEDS: TRIAMCINOLONE 0.1% CR (KENALOG) 80 GM TUBE TP SCH (08:43)
[2020-03-22] MEDS: CLOTRIMAZOLE 1% CREAM (LOTRIMIN) 30 GM TOP SCH (08:43)
[2020-03-22] MEDS: HYDROcodone/APAP 5 MG/325 MG (LORTAB) TAB PO PRN ×2 (08:55→17:14)
--- NOTE | 2020-03-22 09:12 | Occupational Ther Daily Note ---
OT Current Status-Daily Note Subjective Pt seated in recliner, agreeable to OT tx with focus on ADLs. Pt did not report any pain during tx. Mental Status/Objective Patient Orientation: Person, Place, Time, Situation Attachments: Oxygen (3L) ADL-Treatment Therapy Code Descriptions/Definitions Functional Williams Measure: 0=Not Assessed/NA 4=Minimal Assistance 1=Total Assistance 5=Supervision or Setup 2=Maximal Assistance 6=Modified Williams 3=Moderate Assistance 7=Complete IndependenceSCALE: Activities may be completed with or without assistive devices. 1-Xtvwsrgwmb-[id number] completes the activity by him/herself with no assistance from a helper. 5-Set-up or Clean-up Assistance-helper sets up or cleans up; patient completes activity. [place] assists only prior to or following the activity. 4-Supervision or Touching Assistance-helper provides verbal cues and/or touching/steadying and/or contact guard assistance as patient completes activity. Assistance may be provided throughout the activity or intermittently. 3-Partial/Moderate Assistance-helper does LESS THAN HALF the effort. [place] lifts, holds or supports trunk or limbs, but provides less than half the effort. 2-Substantial/Maximal Assistance-helper does MORE THAN HALF the effort. [place] lifts or holds trunk or limbs and provides more than half the effort. 9-Kvsuidypl-cnrdmp does ALL the effort. Patient does none of the effort to complete the activity. Or, the assistance of 2 or more helpers is required for the patient to complete the activity. If activity was not attempted, code reason: 7-Patient Refused. 9-Not Applicable-not attempted and the patient did not perform the activity before the current illness, exacerbation or injury. 10-Not Attempted due to Environmental Limitations-(lack of equipment, weather restraints, etc.). 88-Not Attempted due to Medical Conditions or Safety Concerns. Eating (QC): 6 (Pt indicates she had no difficulties eating breakfast) Oral Hygiene (QC): 6 (IND seated at sink in w/c.) Shower/Bathe Self (QC): 6 (Pt completed shower independently seated on SC) Upper Body Dressing (QC): 5 (Pt able to don/doff pullover shirt independently after set up) Lower Body Dressing (QC): 5 (Pt able to don/doff brief and pants independently after set up) On/Off Footwear: 6 (independent.) Toileting Hygiene (QC): 6 (Pt completed clothing management and hygiene independently.) Toilet Transfer (QC): 6 (independent on/off BSC over toilet) Other Treatment Pt seated in recliner, used FWW to ambulate into restroom and onto BSC over toilet. Pt completed toileting, then transferred onto shower chair where she completed showering and drying off. Pt donned shoes in order to transfer to BS over toilet to complete dressing and toileting. Pt able to stand at FWW, and ambulate to sink. Pt sat in w/c in order to complete oral care at sink. Pt then used FWW to return to recliner. Post OT Tx, pt seated in recliner, call light in reach and all needs met. Education OT Patient Education: Correct positioning, Modified ADL techniques, Progress toward Goal/Update tx plan, Purpose of tx/functional activities Teaching Recipient: Patient Teaching Methods: Discussion Response to Teaching: Verbalize Understanding OT Short Term Goals Short Term Goals Time Frame: Mar 19, 2020 Shower/bathe self: 4 Lower body dressin Putting on/taking off footwear: 4 OT Correction Goals Correction Goals Time Frame: Apr 02, 2020 Eating (QC): 6 (met) Oral Hygiene (QC): 6 (met) Toileting Hygiene (QC): 6 (met) Shower/Bathe Self (QC): 6 (met) Upper Body Dressing (QC): 6 (not met, set up) Lower Body Dressing (QC): 6 (not met, set up) On/Off Footwear (QC): 6 (met) Additional Goals: 1-Demonstrate ADL Tasks, 2-Verbalize Understanding, 3- ImproveStrength/Fede 1=Demonstrate adherence to instructed precautions during ADL tasks. 2=Patient will verbalize/demonstrate understanding of assistive devices/modifications for ADL. 3=Patient will improve strength/tolerance for activity to enable patient to perform ADL's. OT Education/Plan Problem List/Assessment Assessment: Decreased Activ Tolerance, Decreased UE Strength, Restricted Funct UE ROM Discharge Recommendations Plan/Recommendations: Continue POC Treatment Plan/Plan of Care Patient would benefit from OT for education, treatment and training to promote independence in ADL's, mobility, safety and/or upper extremity function for ADL's. Plan of Care: ADL Retraining, Functional Mobility, Group Exercise/Act as Ind, UE Funct Exercise/Act, W/C Management Training Treatment Duration: Apr 02, 2020 Frequency: Modified Program (IRF) (23/12) Estimated Hrs Per Day: .25 hour per day Agreement: Yes Rehab Potential: Fair Time/GCodes Start Time: 09:00 Stop Time: 09:40 Total Time Billed (hr/min): 40 Billed Treatment Time 1, ADL 3 GAMA DIEGO OT Mar 22, 2020 09:12
--- NOTE | 2020-03-22 12:42 | Therapy Team Discharge Summary ---
Therapy Discharge Summary Discharge Recommendations Date of Discharge Occupational Therapy Pt admitted to ARU with debility. At [facility], pt was independent with bathing and dressing, she has a house keeper to assist with cleaning, and meals on wheels to provide some meals throughout the week. Pt was also having home health OT/PT/nursing services prior to hospitalization. At evaluation, pt was independent with eating, SBA oral care, CGA showering, SBA upper body dressing, min A lower body dressing, mod A footwear, and CGA toileting. OT txs focused on increasing independence and safety with ADLs and functional mobility, and increasing BUE strength/coordination/functional endurance. At discharge, pt was independent with eating, oral care, showering, footwear and toileting, and she required set up assist with upper body dressing and lower body dressing. Pt made good progress towards goals, meeting all goals except upper body/lower body dressing goals. Pt is discharging from facility on this date, thus d/c from OT at this time. Decreased Activ Tolerance, Decreased UE Strength, Restricted Funct UE ROM PT Contact Lens Edge Buffer Goals Contact Lens Edge Buffer Goals PT Contact Lens Edge Buffer Goals Time Frame: Apr 05, 2020 Roll Left to Right (QC): 6 Sit to Lying (QC): 6 Lying-Sitting on Side/Bed(QC): 6 Sit to Stand (QC): 6 Chair/[place] Xfer(QC): 6 Car Transfer (QC): 5 Does the Patient Walk: Yes Walk 10 feet (QC): 6 Walk 10ft-Uneven Surface(QC): 5 Walk 50ft with 2 Turns (QC): 6 Walk 150 ft (QC): 5 Does the Pt use WC or Scooter?: Yes Wheel 50 feet with 2 turns (QC: 6 1 Step (curb) (QC): 4 4 Steps (QC): 9 12 Steps (QC): 9 Picking up an Object (QC): 6 (with a linux system admin) OT Contact Lens Edge Buffer Goals Long-Term Goals Time Frame: Apr 02, 2020 Eating (FIM): 6 Eating (QC): 6 (met) Oral Hygiene (QC): 6 (met) Shower/Bathe Self (QC): 6 (met) Upper Body Dressing (QC): 6 (not met, set up) Lower Body Dressing (QC): 6 (not met, set up) On/Off Footwear (QC): 6 (met) Toileting(FIM): 6 Toileting Hygiene (QC): 6 (met) Toilet/Commode Transfer (QC): 6 Additional Goals: 1-Demonstrate ADL Tasks, 2-Verbalize Understanding, 3- ImproveStrength/Fede 1=Demonstrate adherence to instructed precautions during ADL tasks. 2=Patient will verbalize/demonstrate understanding of assistive devices/modifications for ADL. 3=Patient will improve strength/tolerance for activity to enable patient to perform ADL's. Speech Long-Term Goals Long-Term Goals The patient will improve her cognitive communication abilities to be able to complete daily tasks with minimal assist. GAMA DIEGO OT Mar 22, 2020 12:42
--- NOTE | 2020-03-22 13:00 | NUR ---
CM/SS DISCHARGE Patient discharged home as planned, her daughter will pick her up late p.m. HHC: Finalized with [facility] for RN PT OT. DME: Patient reminded that RT/Florinda will set up a visit time with her to educate about the trilogy use and adjustments. IMM2 presented, discussed, signed, charted. Unit RN aware.
--- NOTE | 2020-03-22 14:20 | Speech Therapy Daily Note ---
Speech Daily Progress Note Subjective Date Seen by Provider: Mar 22, 2020 Time Seen by Provider: 00:10 Patient states she is anxious about going home. Objective Patient discussed concerns about returning home and what services she will have with 100% given no verbal cues. Assessment Assessment Current Status: Good Progress Treatment Plan Discontinue ST, Goals Met Speech Short Term Goals Short Term Goals Short Term Goals 1) The patient will complete memory tasks related to her daily needs at 80% or greater with minimal cues. 2) The patient will complete safety awareness tasks related to her daily needs at 80% or greater with minimal cues. 3) The patient will complete problem solving tasks related to her daily needs at 80% or greater with minimal cues. Speech Candy Forming Machine Operator Goals Candy Forming Machine Operator Goals The patient will improve her cognitive communication abilities to be able to complete daily tasks with minimal assist. Speech-Plan Patient/Family Goals Patient/Family Goals: Patient is returning to her home today with support services and family support. Treatment Plan Speech Therapy Treatment Plan: Discontinue ST, Goals Met Treatment Duration: Mar 24, 2020 Frequency: 4 times per week (Patient will receive ST 4-5x per week) Estimated Hrs Per Day: .5 hour per day Rehab Potential: Fair Barriers to Learning: Patient's recent health issues, cognitive deficits Pt/Family Agrees to Plan: Yes Safety Risks/Education Teaching Recipient: Patient Teaching Methods: Demonstration, Discussion Response to Teaching: Verbalize Understanding, Return Demonstration Education Topics Provided: Continued safety upon her return home Time Speech Therapy Time In: 10:30 Speech Therapy Time Out: 10:40 Total Billed Time: 10 Billed Treatment Time 1, SLTS No QUALITY CODES: EXPRESSION OF IDEAS/WANTS: 4 UNDERSTANDING VERBAL CONTENT: 4 BRIEF INTERVIEW: YES TEMPORAL ORIENTATION: YEAR: CORRECT, MONTH: CORRECT, DAY: CORRECT REPETITION OF 3 WORDS: 3 RECALL: SOCK: YES, COLOR: YES, BED: YES MEMORY/RECALL ABILITIES: SEASON, LOCATION OF HER ROOM, STAFF NAMES, THAT SHE IS IN THE HOSPITAL MAGUE TAVAREZ Mar 22, 2020 14:20
--- NOTE | 2020-03-22 14:25 | Therapy Team Discharge Summary ---
Therapy Discharge Summary Discharge Recommendations Date of Discharge Occupational Therapy Decreased Activ Tolerance, Decreased UE Strength, Restricted Funct UE ROM Speech-Language Pathology Patient was admitted to ARU due to falls at her home. Patient received skilled ST as indicated by the [facility]. Patient was able to meet all of her ST goals. Patient is discharging to her apartment this date. PT Industrial Engineering Director Goals Snf Goals PT Industrial Engineering Director Goals Time Frame: Apr 05, 2020 Roll Left to Right (QC): 6 Sit to Lying (QC): 6 Lying-Sitting on Side/Bed(QC): 6 Sit to Stand (QC): 6 Chair/Ery-lm-Sxyep Xfer(QC): 6 Car Transfer (QC): 5 Does the Patient Walk: Yes Walk 10 feet (QC): 6 Walk 10ft-Uneven Surface(QC): 5 Walk 50ft with 2 Turns (QC): 6 Walk 150 ft (QC): 5 Does the Pt use WC or Scooter?: Yes Wheel 50 feet with 2 turns (QC: 6 1 Step (curb) (QC): 4 4 Steps (QC): 9 12 Steps (QC): 9 Picking up an Object (QC): 6 (with a plush cutter) OT Snf Goals Industrial Engineering Director Goals Time Frame: Apr 02, 2020 Eating (FIM): 6 Eating (QC): 6 (met) Oral Hygiene (QC): 6 (met) Shower/Bathe Self (QC): 6 (met) Upper Body Dressing (QC): 6 (not met, set up) Lower Body Dressing (QC): 6 (not met, set up) On/Off Footwear (QC): 6 (met) Toileting(FIM): 6 Toileting Hygiene (QC): 6 (met) Toilet/Commode Transfer (QC): 6 Additional Goals: 1-Demonstrate ADL Tasks, 2-Verbalize Understanding, 3-ImproveStrength/Fede 1=Demonstrate adherence to instructed precautions during ADL tasks. 2=Patient will verbalize/demonstrate understanding of assistive devices/modifications for ADL. 3=Patient will improve strength/tolerance for activity to enable patient to perform ADL's. Speech Snf Goals Industrial Engineering Director Goals The patient will improve her cognitive communication abilities to be able to complete daily tasks with minimal assist. MAGUE TAVAREZ Mar 22, 2020 14:25
--- NOTE | 2020-03-22 14:34 | NUR ---
Call to Dr. Berman's office to make f/u appt. Left message to return call w appt date & time on voicemail.
[2020-03-22 15:15] VITALS: BP 170/72
[2020-03-22 17:08] VITALS: BP 138/68
--- NOTE | 2020-03-22 17:15 | NUR ---
Notified pt that Dr. Berman's office has not called back yet w an appt date. Instr. pt to make sure & call their office in the morning & schedule a f/u appt. Pt states that she will. I will also call there again & notify to call pt directly to schedule f/u appt.
[2020-03-22 17:30] VITALS: BP 138/68
--- NOTE | 2020-03-22 19:54 | NUR ---
CALL MADE TO DR. GARZA'S OFFICE, THEY HAVE NOT CALLED BACK W AN APPT. LEFT MESSAGE FOR THEM TO CALL PT HERSELF, PROVIDED PT'S PHONE #, & NOTIFY PT OF HER F/U APPT.
== END 2020-03-22 17:30 | disposition home health service (06) | DRG 189 ==
LOC: UNDODISIN 18:40
PROVIDERS: ADMIT Internal Medicine; ATTEND Internal Medicine
DX: J96.22 Acute and chronic respiratory failure with hypercapnia (principal); Z68.41 Body mass index [BMI] 40.0-44.9, adult; E66.2 Morbid (severe) obesity with alveolar hypoventilation; K92.2 Gastrointestinal hemorrhage, unspecified; J98.11 Atelectasis; J96.21 Acute and chronic respiratory failure with hypoxia; Z91.81 History of falling; F03.90 Unspecified dementia, unspecified severity, without behavioral disturbance, psychotic disturbance, mood disturbance, and anxiety; J44.9 Chronic obstructive pulmonary disease, unspecified; I25.10 Atherosclerotic heart disease of native coronary artery without angina pectoris; E78.00 Pure hypercholesterolemia, unspecified; I10 Essential (primary) hypertension; K44.9 Diaphragmatic hernia without obstruction or gangrene; M19.91 Primary osteoarthritis, unspecified site; E03.9 Hypothyroidism, unspecified; E11.9 Type 2 diabetes mellitus without complications; M32.9 Systemic lupus erythematosus, unspecified; K29.70 Gastritis, unspecified, without bleeding; K64.1 Second degree hemorrhoids; D50.0 Iron deficiency anemia secondary to blood loss (chronic); K21.00 Gastro-esophageal reflux disease with esophagitis, without bleeding; E78.5 Hyperlipidemia, unspecified; Z99.81 Dependence on supplemental oxygen; F41.9 Anxiety disorder, unspecified; F31.9 Bipolar disorder, unspecified; F60.9 Personality disorder, unspecified; L40.9 Psoriasis, unspecified; Z87.01 Personal history of pneumonia (recurrent); Z79.84 Long term (current) use of oral hypoglycemic drugs; Z90.710 Acquired absence of both cervix and uterus; Z90.721 Acquired absence of ovaries, unilateral; Z90.49 Acquired absence of other specified parts of digestive tract; Z23 Encounter for immunization
CPT/HCPCS: 36415; 36600; 71045; 71046; 76937; 80048; 80053; 82805; 82962; 83605; 83735; 83880; 84100; 85007; 85025; 85027; 86920; 90686; 94640; 94660; 94760

== ENCOUNTER 2020-03-08 18:45 | Inpatient (IN) | payer MEDICARE ==
[~2020-03-08] VITALS: Ht 165 cm; Wt 113.2 kg
[2020-03-08] VITALS (7 sets, daily range): BP systolic 129–157; BP diastolic 65–95
--- NOTE | 2020-03-08 18:53 | History & Physical ---
History of Present Illness HPI/Chief Complaint CC: Dyspnea wtih hypoxia HPI: This is a 60yoWF clinic patient of Dr Ward with significant chronic debility along with severe COPD and OHS who presents to the ICU in need of observation due to initiation of biPAP from Dr Berman for hypercapnia. Patient was admitted to IRF directly from ER but had decompensation while working with PT upon arrival to IRF. Source: patient, RN/MD Exam Limitations: clinical condition Date Seen 03/08/20 Time Seen by a Provider: 18:30 Attending Physician Rosalind Collier DO PCP Garrett Ward DO Referring Physician Date of Admission Mar 08, 2020 at 18:45 Home Medications & Allergies Home Medications Reviewed patient Home Medication Reconciliation performed by pharmacy medication reconciliations all terrain vehicle technician and/or nursing. Patients Allergies have been reviewed. Allergies Allergies Coded Allergies clindamycin (Unverified Allergy, Mild, HIVES, 11/21/09) meperidine (Unverified Allergy, Mild, HAS RECEIVED FENTANYL IN THE PAST, 08/11/09) morphine (Unverified Allergy, Mild, 11/21/09) doxycycline (Verified Allergy, Unknown, 06/14/19) codeine (Verified Adverse Reaction, Unknown, NAUSEA, 11/21/09) Past Ygtxfaa-Ekacrz-Bjenpi Hx Past Med/Social Hx: Reviewed Nursing Past Med/Soc Hx, Reviewed and Corrections made Patient Social History Marrital Status: single Employed/Student: unemployed Alcohol Use: Denies Use Smoking Status: Former Smoker Former Smoker, Quit: Jun 19, 2018 Type Used: Cigarettes 2nd Hand Smoke Exposure: No Recent Hopitalizations: Yes Immunizations Up To Date Tetanus Booster (TDap): Unknown Pediatric: No Date of Pneumonia Vaccine: Mar 11, 2011 Date of Influenza Vaccine: Feb 22, 2018 Seasonal Allergies Seasonal Allergies: No Past Medical History Surgeries: Abdominal, Appendectomy, Bowel Surgery, Breast, Section, Hysterectomy, Oophorectomy, Tracheostomy Respiratory: COPD, Pneumonia Currently Using CPAP: Yes Currently Using BIPAP: No Cardiac: Chronic Edema/Swelling, Coronary Artery Disease, High Cholesterol, Hypertension Neurological: Dementia, Headaches /Migraines Reproductive: Yes (RIGHT BREAST BENING LUMP-REMOVED) Sexually Transmitted Disease: No HIV/AIDS: No Female Reproductive Disorders: Denies Hysterectomy, Menopausal Genitourinary: UTI-Chronic Gastrointestinal: Gastroesophageal Reflux, Hiatal Hernia, Ulcer Musculoskeletal: Arthritis Endocrine: Hypothyroidsim, Diabetes, Non-Insulin dep, Lupus Loss of Vision: Denies Hearing Impairment: Denies Psychosocial: Anxiety, Bipolar, Personality Disorder, Depression Skin/Integumentary: Psoriasis History of Blood Disorders: Yes (ANEMIA POST OP) Adverse Reaction to Blood Oneill: No Family History Arthritis 19 FATHER 19 MOTHER Cardiovascular disease 19 FATHER Cataracts 19 MOTHER Completed stroke 19 MOTHER Dysphasia 19 FATHER FH: cirrhosis 19 MOTHER Glaucoma 19 MOTHER Hypercholesterolemia 19 FATHER Hypertension 19 FATHER 19 MOTHER Myocardial infarction 19 FATHER Osteoporosis 19 MOTHER No Family History of: AIDS Abdominal aortic aneurysm Kaiden's disease Alcoholism Alzheimer's disease Aphasia Asthma Cancer of mouth Colon cancer Congenital disease Congenital heart disease Coronary thrombosis Cystic fibrosis Deafness or hearing loss Dementia Diabetes mellitus Drug abuse Fibrocystic disease of breast Gastroenteritis Headache disorder Infertility Kidney disease Neoplasm Not obtainable due to adoption Parkinson's disease Prostate cancer Psychosocial problem Respiratory disorder Seizure disorder Severe allergy Thyroid disease Tuberculosis Visual disorder GI Disease PSH: -SIGMOID AND COLON RESECTION WITH COLOSTOMY FOR PERFORATED DIVERTICULUM--COMPLICATED BY PERFORATION/ANASTAMOTIC LEAK 2009 -LATER TAKEDOWN OF COLOSTOMY -TRACHEOSTOMY AND LATER REMOVAL FOR ARDS DUE TO POST OP COMPLICATIONS FROM COLON RESECTION -ALSO HAD PEG TUBE PLACEMENT AND LATER REMOVAL DUE TO SAME POST OP COMPLICATIONS FROM COLON RESECTION -SPLENECTOMY-DUE TO COMPLICATIONS FROM COLON RESECTION, PER PT -HYSTERECTOMY-ONE OVARY REMOVED -CHOLECYSTECTOMY -PILONIDAL CYST/ABSCESS REMOVED -APPENDECTOMY -BENIGN RIGHT BREAST BIOPSY/LUMPECTOMY - -TIBIAL PLATEAU FRACTURE Review of Systems Constitutional: see HPI Respiratory: dyspnea on exertion, short of breath Physical Exam Physical Exam Vital Signs Vital Signs - First Documented 03/08/20 03/08/20 19:37 20:00 Temp 36.4 Pulse 92 Resp 28 B/P (MAP) 142/72 (95) Pulse Ox 100 O2 Delivery NIV Bilevel O2 Flow Rate 30.00 FiO2 30 Capillary Refill : Height, Weight, BMI Height: 5'7.50" Weight: 200lbs. 1.0oz. 90.264355iy; 40.03 BMI Method:Stated General Appearance: WD/WN, Anxious, Chronically ill, Moderate Distress Eyes: Bilateral Eye Normal Inspection, Bilateral Eye PERRL HEENT: PERRL/EOMI, Normal ENT Inspection, Pharynx Normal Neck: Full Range of Motion, Normal Inspection, Non Tender, Supple, Carotid Bruit Respiratory: Chest Non Tender, No Respiratory Distress, Accessory Muscle Use, Decreased Breath Sounds Cardiovascular: Regular Rate, Rhythm, No Edema, No Gallop, No JVD, No Murmur, Normal Peripheral Pulses Gastrointestinal: Normal Bowel Sounds, No Organomegaly, No Pulsatile Mass, Non Tender, Soft Back: Normal Inspection, No CVA Tenderness, No Vertebral Tenderness Extremity: Normal Capillary Refill, Normal Inspection, Normal Range of Motion, Non Tender, No Calf Tenderness, No Pedal Edema Neurologic/Psychiatric: Alert, Oriented x3, No Motor/Sensory Deficits, Normal Mood/Affect Skin: Normal Color, Warm/Dry Lymphatic: No Adenopathy Results Results/Procedures Labs Patient resulted labs reviewed. Assessment/Plan Admission Diagnosis Assessment: Acute on chronic respiratory failure COPD Hypercapnia Hypoxia Chronic debility Plan: ICU transfer BiPAP eicu Dr Berman Admission Status: Observation Diagnosis/Problems Diagnosis/Problems (1) Acute on chronic respiratory failure with hypoxia and hypercapnia Status: Acute (2) Obesity hypoventilation syndrome (3) Lupus Status: Chronic (4) Hypertension Status: Chronic (5) Bipolar disorder Status: Chronic (6) Generalized weakness Status: Acute (7) Morbid obesity Status: Acute (8) Dementia Status: Acute (9) Chronic mental illness Status: Chronic (10) Oxygen dependent Status: Chronic (11) Psoriasis Status: Chronic ROSALIND COLLIER DO Mar 08, 2020 18:53
[2020-03-08] MEDS ORDERED: DOCUSATE SODIUM 100 MG (COLACE) CAP PO PRN (19:00)
[2020-03-08] MEDS ORDERED: CALCIUM CARBONATE 500 MG (TUMS) TAB.CHEW PO PRN (19:00)
[2020-03-08] MEDS ORDERED: diphenhydrAMINE 25 MG TAB (BENADRYL) PO PRN (19:00)
[2020-03-08] MEDS ORDERED: MELATONIN 3 MG TABLET PO PRN (19:00)
[2020-03-08] MEDS ORDERED: ACETAMINOPHEN 500 MG TAB (TYLENOL) PO PRN (19:00)
[2020-03-08] MEDS ORDERED: ONDANSETRON 4 MG/2 ML (SDV) Z0FRAN IVP PRN (19:00)
[2020-03-08] MEDS: SENNA W/DOCUSATE (SENOKOT S) TABLET PO SCH (19:58)
[2020-03-08] MEDS: HYDROcodone/APAP 5 MG/325 MG (LORTAB) TAB PO PRN (20:48)
[2020-03-08] MEDS: ALPRAZolam 0.25 MG (XANAX) TAB PO PRN (20:48)
[2020-03-09] VITALS (16 sets, daily range): BP systolic 106–175; BP diastolic 40–97
--- NOTE | 2020-03-09 | NUR ---
NOTIFIED EICU OF PT LOW URINE OUTPUT. SEE ORDER HX
[2020-03-09] MEDS ORDERED: LACTATED RINGERS 1,000 ML IV SCH (00:15)
[2020-03-09] MEDS: LACTATED RINGERS 1,000 ML IV SCH ×4 (00:39→20:00)
[2020-03-09] MEDS: HYDROcodone/APAP 5 MG/325 MG (LORTAB) TAB PO PRN ×2 (02:15→12:18)
[2020-03-09 02:33] LABS: ABG BASE EXCESS 13.6 MMOL/L (-2.5-2.5); ABG OXYGEN SATURATION 88 % (94-100); ABG PCO2 61 MMHG (35-45); ABG PH 7.42 (7.37-7.43); ABG PO2 57 MMHG (79-93); ABG TCO2 40.8 MMOL/L (21.0-31.0)
[2020-03-09 02:36] LABS: ALLENS TEST POSITIVE; PATIENT TEMP 36.6; VENTILATOR NO
[2020-03-09 06:07] LABS: HEMATOCRIT 28 % (35-52); HEMOGLOBIN 7.8 G/DL (11.5-16.0); MEAN CORPUSCULAR HEMOGLOBIN 23 PG (25-34); MEAN CORPUSCULAR VOLUME 83 FL (80-99)
[2020-03-09 06:08] LABS: BASOPHILS % (AUTO) 1 % (0-10); EOSINOPHILS % (AUTO) 4 % (0-10); LYMPHOCYTES # (AUTO) 4.6 X 10^3 (1.0-4.0); LYMPHOCYTES % (AUTO) 39 % (12-44); MEAN CORPUSCULAR HGB CONC 28 G/DL (32-36); MEAN PLATELET VOLUME 9.8 FL (7.4-10.4); MONOCYTES # (AUTO) 0.9 X 10^3 (0.0-1.0); MONOCYTES % (AUTO) 8 % (0-12); NEUTROPHILS # (AUTO) 5.8 X 10^3 (1.8-7.8); NEUTROPHILS % (AUTO) 48 % (42-75); PLATELET COUNT 440 10^3/uL (130-400)
[2020-03-09 06:09] LABS: BASOPHILS # (AUTO) 0.1 10^3/uL (0.0-0.1); CARBON DIOXIDE 34 MMOL/L (21-32); CHLORIDE 98 MMOL/L (98-107); EOSINOPHILS # (AUTO) 0.5 10^3/uL (0.0-0.3); POTASSIUM 3.9 MMOL/L (3.6-5.0); SODIUM 141 MMOL/L (135-145)
[2020-03-09 06:10] LABS: ALANINE AMINOTRANSFERASE 10 U/L (0-55); ALBUMIN 3.4 GM/DL (3.2-4.5); ALKALINE PHOSPHATASE 76 U/L (40-136); BILIRUBIN,TOTAL 0.2 MG/DL (0.1-1.0); BUN/CREATININE RATIO 22; CALCIUM 8.4 MG/DL (8.5-10.1); CREATININE SERUM 0.78 MG/DL (0.60-1.30); GFR ESTIMATED > 60; GLUCOSE 87 MG/DL (70-105); TOTAL PROTEIN 5.7 GM/DL (6.4-8.2)
--- NOTE | 2020-03-09 06:11 | Pulmonary Consultation ---
History of Present Illness History of Present Illness Date Seen by Provider: Mar 09, 2020 Time Seen by Provider: 06:10 Date of Admission Allergies and Home Medications Allergies Coded Allergies: clindamycin (Unverified Allergy, Mild, HIVES, 11/21/09) meperidine (Unverified Allergy, Mild, HAS RECEIVED FENTANYL IN THE PAST, 08/11/09) morphine (Unverified Allergy, Mild, 11/21/09) doxycycline (Verified Allergy, Unknown, 06/14/19) codeine (Verified Adverse Reaction, Unknown, NAUSEA, 11/21/09) Home Medications Acetaminophen 650 Mg Tablet.er, 1,300-1,950 MG PO BID PRN for PAIN-MILD (1-4), (Reported) TAKES 2 TO 3 (650MG) TABS Albuterol Sulfate 1 Puff Puff, 2 PUFF IH Q4H 1 PUFF = 90 MCG Prescribed by: JAYCOB DOWNEY on 02/11/20 1201 Amlodipine Besylate 5 Mg Tablet, 5 MG PO DAILY, (Reported) Atorvastatin Calcium 10 Mg Tablet, 10 MG PO HS, (Reported) Cetirizine HCl 10 Mg Tablet, 10 MG PO DAILY, (Reported) Cholecalciferol (Vitamin D3) 50 Mcg Capsule, 100 MCG PO DAILY, (Reported) TAKES 2 (50MCG) CAPS DAILY Cyanocobalamin (Vitamin B-12) 500 Mcg Tablet, 1,000 MCG PO DAILY, (Reported) Donepezil HCl 10 Mg Tablet, 10 MG PO HS, (Reported) Fluticasone/Salmeterol 12 Gm Hfa.aer.ad, 2 PUFF IH BID Prescribed by: JAYCOB DOWNEY on 02/11/20 1201 Folic Acid 1 Mg Tablet, 1 MG PO DAILY, (Reported) Metformin HCl 500 Mg Tablet, 500 MG PO BIDAC, (Reported) Methotrexate Sodium 2.5 Mg Tablet, 7.5 MG PO SUNDAY, (Reported) TAKES 3 (2.5MG) TO EQUAL 7.5MG Metoprolol Succinate 100 Mg Tab.er.24h, 100 MG PO BID, (Reported) Olanzapine 20 Mg Tablet, 20 MG PO HS, (Reported) TAKES 10MG +20MG TO EQUAL 30MG AT BEDTIME Olanzapine 10 Mg Tablet, 10 MG PO HS, (Reported) TAKES 10MG +20MG TO EQUAL 30MG AT BEDTIME Omeprazole 20 Mg Capsule.dr, 20 MG PO SLIDING/SCALE, (Reported) Sucralfate 1 Gm Tablet, 1 GM PO TIDAC, (Reported) LAST FILLED 12-18-2019 #90/30 DAY SUPPLY Past Jtggatp-Lzmocj-Wixgel Hx Past Med/Social Hx: Reviewed Nursing Past Med/Soc Hx, Reviewed and Corrections made Patient Social History Alcohol Use: Denies Use Smoking Status: Former Smoker Type Used: Cigarettes Former Smoker, Quit: Jun 19, 2018 2nd Hand Smoke Exposure: No Recent Hopitalizations: Yes Immunizations Up To Date Tetanus Booster (TDap): Unknown PED Vaccines UTD: No Date of Pneumonia Vaccine: Mar 11, 2011 Date of Influenza Vaccine: Feb 22, 2018 Seasonal Allergies Seasonal Allergies: No Past Medical History Surgeries: Yes (PILONIDAL CYST; SIGMOID COLECTOMY ; COLOSTOMY ) Abdominal, Appendectomy, Bowel Surgery, Breast, Section, Hysterectomy, Oophorectomy, Tracheostomy Respiratory: Yes (O2 AT 4L/NC CONTINUOUSLY;ARDS W/ VENT & TRACH DUE TO POST OP COMPLCATIONS) Chronic Bronchitis, COPD Currently Using CPAP: Yes Currently Using BIPAP: No Cardiac: Yes (SVT) Chronic Edema/Swelling, Coronary Artery Disease, High Cholesterol, Hypertension Neurological: Yes Dementia, Headaches /Migraines Reproductive Disorders: Yes (RIGHT BREAST BENING LUMP-REMOVED) Female Reproductive Disorders: Denies 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 History: Hysterectomy, Menopausal Sexually Transmitted Disease: No HIV/AIDS: No Genitourinary: No UTI-Chronic Gastrointestinal: Yes Gastroesophageal Reflux, Hiatal Hernia, Ulcer Musculoskeletal: Yes (CHRONIC GENERALIZED PAIN ) Arthritis Endocrine: Yes Hypothyroidsim, Diabetes, Non-Insulin dep, Lupus HEENT: No Loss of Vision: Denies Hearing Impairment: Denies Cancer: No Psychosocial: Yes Anxiety, Bipolar, Personality Disorder, Depression Integumentary: Yes Psoriasis Blood Disorders: Yes (ANEMIA POST OP) Adverse Reaction/Blood Tranf: No Family Medical History Arthritis 19 FATHER 19 MOTHER Cardiovascular disease 19 FATHER Cataracts 19 MOTHER Completed stroke 19 MOTHER Dysphasia 19 FATHER FH: cirrhosis 19 MOTHER Glaucoma 19 MOTHER Hypercholesterolemia 19 FATHER Hypertension 19 FATHER 19 MOTHER Myocardial infarction 19 FATHER Osteoporosis 19 MOTHER No Family History of: AIDS Abdominal aortic aneurysm [place]'s disease Alcoholism Alzheimer's disease Aphasia Asthma Cancer of mouth Colon cancer Congenital disease Congenital heart disease Coronary thrombosis Cystic fibrosis Deafness or hearing loss Dementia Diabetes mellitus Drug abuse Fibrocystic disease of breast Gastroenteritis Headache disorder Infertility Kidney disease Neoplasm Not obtainable due to adoption Parkinson's disease Prostate cancer Psychosocial problem Respiratory disorder Seizure disorder Severe allergy Thyroid disease Tuberculosis Visual disorder GI Disease PSH: -SIGMOID AND COLON RESECTION WITH COLOSTOMY FOR PERFORATED DIVERTICULUM--COMPLICATED BY PERFORATION/ANASTAMOTIC LEAK 2009 -LATER TAKEDOWN OF COLOSTOMY -TRACHEOSTOMY AND LATER REMOVAL FOR ARDS DUE TO POST OP COMPLICATIONS FROM COLON RESECTION -ALSO HAD PEG TUBE PLACEMENT AND LATER REMOVAL DUE TO SAME POST OP COMPLICATIONS FROM COLON RESECTION -SPLENECTOMY-DUE TO COMPLICATIONS FROM COLON RESECTION, PER PT -HYSTERECTOMY-ONE OVARY REMOVED -CHOLECYSTECTOMY -PILONIDAL CYST/ABSCESS REMOVED -APPENDECTOMY -BENIGN RIGHT BREAST BIOPSY/LUMPECTOMY - -TIBIAL PLATEAU FRACTURE Review of Systems Time Seen by Provider: 06:11 Sepsis Event Evaluation Height, Weight, BMI Height: 5'7.50" Weight: 200lbs. 1.0oz. 90.539380po; 41.13 BMI Method:Stated Exam Exam Vital Signs Date Time Temp Pulse Resp B/P (MAP) Pulse Ox O2 Delivery O2 Flow Rate FiO2 03/09/20 04:00 97 NIV Bilevel 30.00 03/09/20 03:00 83 11 97 NIV Bilevel 30.00 03/09/20 02:40 81 96 30.00 03/09/20 02:00 93 24 148/72 (97) 95 NIV Bilevel 30.00 03/09/20 01:20 36.6 82 97 30 03/09/20 01:00 78 03/09/20 01:00 78 13 134/64 (87) 95 NIV Bilevel 30.00 03/09/20 00:00 78 18 126/40 (68) 100 NIV Bilevel 30.00 03/09/20 00:00 97 NIV Bilevel 30.00 03/08/20 23:39 36.6 03/08/20 23:00 82 19 157/77 (103) 97 NIV Bilevel 30.00 03/08/20 22:39 61 93 30.00 03/08/20 22:30 64 146/79 (101) 94 NIV Bilevel 30.00 03/08/20 22:00 73 131/65 (87) 93 NIV Bilevel 30.00 03/08/20 21:30 75 146/67 (93) 91 NIV Bilevel 30.00 03/08/20 21:00 93 20 129/87 (101) 97 NIV Bilevel 30.00 03/08/20 20:30 91 21 134/95 (108) 98 NIV Bilevel 30.00 03/08/20 20:19 NIV Bilevel 30.00 03/08/20 20:00 36.4 87 14 145/84 (104) 100 03/08/20 20:00 99 NIV Bilevel 30 03/08/20 20:00 92 28 142/72 (95) 100 NIV Bilevel 30.00 03/08/20 19:37 92 I & O 03/09/20 07:00 Intake Total 1075 ml Output Total 110 ml Balance 965 ml Height & Weight Height: 5'7.50" Weight: 200lbs. 1.0oz. 90.335754ix; 41.13 BMI Method:Stated General Appearance: WD/WN, Anxious, Chronically ill, Moderate Distress HEENT: PERRL/EOMI, Normal ENT Inspection, Pharynx Normal Neck: Full Range of Motion, Normal Inspection, Non Tender, Supple, Carotid Bruit Respiratory: Chest Non Tender, No Respiratory Distress, Accessory Muscle Use, Decreased Breath Sounds Cardiovascular: Regular Rate, Rhythm, No Edema, No Gallop, No JVD, No Murmur, Normal Peripheral Pulses Capillary Refill: Less Than 3 Seconds Extremity: Normal Capillary Refill, Normal Inspection, Normal Range of Motion, Non Tender, No Calf Tenderness, No Pedal Edema Neurologic/Psychiatric: Alert, Oriented x3, No Motor/Sensory Deficits, Normal Mood/Affect Skin: Normal Color, Warm/Dry Lymphatic: No Adenopathy Results Lab Laboratory Tests 03/09/20 03:24 Assessment/Plan Assessment/Plan Acute on chronic respiratory failure -Continue BiPAP Atelectasis r/o PNA -Start Zosyn -Fontaine cultures -MRSA swab pending -COVID swab pending Anemia -Monitor Debilty -PT/OT MERCEDES GARZA DO Mar 09, 2020 06:11
[2020-03-09] MEDS ORDERED: PIPERACILLIN/TAZOBACTAM (BULK) 4.5 GM in NS (IVPB) 100 ML IV SCH (06:30)
[2020-03-09] MEDS: ADVAIR HFA 115/21 MCG INHALER 8 GM IH SCH ×2 (06:58→19:23)
[2020-03-09] MEDS ORDERED: FLU QUADRIvalent (3YOA+) 60 mcg/0.5 ml 2020-21 (AFLURIA) IM ONE (07:00)
--- NOTE | 2020-03-09 07:13 | Diagnostic Imaging Report ---
INDICATION: Shortness of air COMPARISON: 03/08/2020 FINDINGS: Single frontal view of the chest demonstrates normal heart size and pulmonary vascularity. The lungs are well aerated and clear. No large pleural effusion or pneumothorax is seen. The visualized osseous structures show no acute abnormalities. IMPRESSION: 1. No acute cardiopulmonary process. Dictated by: Dictated on workstation # [id number]
[2020-03-09] MEDS ORDERED: PIPERACILLIN/TAZOBACTAM (BULK) 4.5 GM in NS (IVPB) 100 ML IV ONE (07:30)
[2020-03-09] MEDS: SENNA W/DOCUSATE (SENOKOT S) TABLET PO SCH ×2 (08:36→19:57)
[2020-03-09] MEDS: PANTOPRAZOLE 40 MG (PROTONIX) VIAL IV SCH (08:37)
--- NOTE | 2020-03-09 09:15 | NUR ---
Bp cuff placed back on pt at this time. Pt complains of BP cuff hurting her arm. Pt removes BP cuff herself at times.
--- NOTE | 2020-03-09 09:15 | NUR ---
Dr. Pringle at bedside at this time. Verbal orders received to remove pt from airborne isolation at this time.
--- NOTE | 2020-03-09 09:23 | Progress Note ---
Subjective Date Seen by a Provider: Mar 09, 2020 Time Seen by a Provider: 09:00 Subjective/Events-last exam Pt had an uneventful night in the ICU after transferring from rehab Maintained on BiPAP now transitioned to vapotherm at 30% Pt reports she feels better Reports some pain in her right wrist and left shoulder but she is otherwise doing well Zosyn started per Dr. Berman to cover for any bacterial bronchitis Procalcitonin was mildly elevated at 0.16 Lactic acid was normal Chest X-ray revealed no abnormality Overall doing pretty well otherwise Hope to get her back to rehab tomorrow Monitor closely Covid swab- rapid test was negative, PCR is pending Review of Systems Pulmonary: Dyspnea Focused Exam Lactate Level 03/08/20 19:15: Lactic Acid Level 0.62 03/09/20 06:25: Lactic Acid Level 0.47L Lactic Acid Level Laboratory Tests Test 03/09/20 06:25 Lactic Acid Level 0.47 MMOL/L (0.50-2.00) L Objective Exam Last Set of Vital Signs Vital Signs Date Time Temp Pulse Resp B/P (MAP) Pulse Ox O2 Delivery O2 Flow Rate FiO2 03/09/20 08:41 36.0 122 30 106/48 (67) 90 Vapotherm 30.00 50.00 03/09/20 01:20 30 Capillary Refill : Less Than 3 Seconds I&O Intake and Output 03/09/20 00:00 Intake Total 50 ml Output Total 30 ml Balance 20 ml Intake Oral 50 ml Output Urine Total 30 ml Daily Weight Change No General: Alert, Oriented X3, Cooperative, Mild Distress Lungs: Clear to Auscultation, Normal Air Movement Heart: Regular Rate Results Lab Laboratory Tests 03/08/20 19:15: Lactic Acid Level 0.62, Procalcitonin 0.16H 03/08/20 23:00: Coronavirus 2019 ([facility]) Negative 03/09/20 02:23: Blood Gas Puncture Site RIGHT RADIAL, Blood Gas Patient Temperature 36.6, Arterial Blood pH 7.42, Arterial Blood Partial Pressure CO2 61H, Arterial Blood Partial Pressure O2 57L, Arterial Blood HCO3 39H, Arterial Blood Total CO2 40.8H , Arterial Blood Oxygen Saturation 88L, Arterial Blood Base Excess 13.6H, Merlin Test POSITIVE, Blood Gas Ventilator Setting NO, Blood Gas Inspired Oxygen 30% FIo2 03/09/20 03:24: White Blood Count 12.0H, Red Blood Count 3.41L, Hemoglobin 7.8L, Hematocrit 28L, Mean Corpuscular Volume 83, Mean Corpuscular Hemoglobin 23L, Mean Corpuscular Hemoglobin Concent 28L, Red Cell Distribution Width 16.8H, Platelet Count 440H, Mean Platelet Volume 9.8, Immature Granulocyte % (Auto) 1, Neutrophils (%) (Auto) 48, Lymphocytes (%) (Auto) 39, Monocytes (%) (Auto) 8, Eosinophils (%) (Auto) 4, Basophils (%) (Auto) 1, Neutrophils # (Auto) 5.8, Lymphocytes # (Auto) 4.6H, Monocytes # (Auto) 0.9, Eosinophils # (Auto) 0.5H, Basophils # (Auto) 0.1, Immature Granulocyte # (Auto) 0.1, Sodium Level 141, Potassium Level 3.9, Chloride Level 98, Carbon Dioxide Level 34H, Anion Gap 9, Blood Urea Nitrogen 17, Creatinine 0.78, Estimat Glomerular Filtration Rate > 60, BUN/Creatinine Ratio 22, Glucose Level 87, Calcium Level 8.4L, Corrected Calcium 8.9, Total Bilirubin 0.2, Aspartate Amino Transf (AST/SGOT) 14, Alanine Aminotransferase (ALT/SGPT) 10, Alkaline Phosphatase 76, B-Type Natriuretic Peptide 21.1, Total Protein 5.7L, Albumin 3.4 03/09/20 06:25: Lactic Acid Level 0.47L, Procalcitonin 0.12H 03/09/20 06:30: Assessment/Plan Assessment/Plan Assess & Plan/Chief Complaint Assessment: Acute on chronic respiratory failure COPD Hypercapnia Hypoxia Chronic debility Plan: ICU transfer BiP eicu Dr Berman Diagnosis/Problems Diagnosis/Problems (1) Acute on chronic respiratory failure with hypoxia and hypercapnia Status: Acute (2) Obesity hypoventilation syndrome (3) Lupus Status: Chronic (4) Hypertension Status: Chronic (5) Bipolar disorder Status: Chronic (6) Generalized weakness Status: Acute (7) Morbid obesity Status: Acute (8) Dementia Status: Acute (9) Chronic mental illness Status: Chronic (10) Oxygen dependent Status: Chronic (11) Psoriasis Status: Chronic Clinical Quality Measures DVT/VTE Risk/Contraindication: Risk Factor Score Per Nursin RFS Level Per Nursing on Admit: 4+=Very High SAMANTHA COLLIER DO Mar 09, 2020 09:23
--- NOTE | 2020-03-09 09:42 | NUR ---
CM/SS following for social service consult. CM/SS received ss consult for patient. The plan for patient is to return to inpatient rehab when able. The inpatient rehab unit has a case management social worker, therefore, this sw will follow and assist if needed.
[2020-03-09] MEDS: RT-ALBUTEROL INHALER HFA (VENTOLIN HFA) 18 GM IH SCH ×5 (10:33→23:05)
[2020-03-09] MEDS: ENOXAPARIN 40 MG/0.4 ML (LOVENOX) SYR SC SCH ×2 (11:25→22:10)
[2020-03-09] MEDS: ALPRAZolam 0.25 MG (XANAX) TAB PO PRN ×2 (12:17→20:05)
[2020-03-09] MEDS: PIPERACILLIN/TAZOBACTAM (BULK) 4.5 GM in NS (IVPB) 100 ML IV SCH ×2 (12:18→19:57)
--- NOTE | 2020-03-09 12:22 | NUR ---
Bp cuff placed on pt again at this time. Pt removed bp cuff. NT notified of pt's refusal to wear BP cuff at times.
[2020-03-09] MEDS ORDERED: PIPERACILLIN/TAZO 4.5 GM/NS 100 ML IV SCH ×2 (12:30)
--- NOTE | 2020-03-09 13:09 | NUR ---
RD ASSESSMENT PMHx: COPD; CAD; hypercholesterolemia; HTN; dementia; chronic UTI; GERD; hypothyroidism; DM PT INTERACTION: Pt was awake and pleasant during nutrition assessment. Note pt has dementia, per chart review. Pt states current appetite is good. Note pt has had meals, but no amounts have been recorded, per chart review. Pt states following a regular diet at home, and has some issues with chewing food. Pt states no recent issues with nausea, vomiting, or constipation. Pt states some recent issues with diarrhea, and that her last BM was 03/08. Note pt currently on bowel regimen of senna BID, per chart review. Pt states no recent wt changes. Note recent 20# wt loss x6mon, per chart review. When asked about current DM management: "My blood sugar levels are within normal limits." Note unable to determine recent HbA1c, per chart review. ABNORMAL NUTRITION-RELATED LAB VALUES LOW: Ca 8.4; Pro 5.7 HIGH: Est. kcal needs: 1675 kcal | 15 kcal/kg Est. Pro needs: 90 g Pro | 0.8 g Pro/kg PES STATEMENT: Inadequate oral intake (NI-2.1) related to diarrhea as evidenced by pt interview INTERVENTION: Continue with current diet order of Clear Liquid diet. Would recommend diet advancement to consistent CHO diet when medically able and as tolerated. Did not offer diet education at this time, due pt's AMS. Will attempt to offer with family present at bedside. Will continue to follow and reassess as pt needs, intake, and status change. Radha Ferrell, MS, RD, LD
[2020-03-09] MEDS ORDERED: ENOXAPARIN 40 MG/0.4 ML (LOVENOX) SYR SC SCH (14:00)
[2020-03-09] MEDS ORDERED: RT-ALBUTEROL INHALER HFA (VENTOLIN HFA) 18 GM IH PRN (16:00)
[2020-03-10] VITALS: BP 127/70
[2020-03-10 01:00] VITALS: BP 119/73
[2020-03-10 02:00] VITALS: BP 133/84
[2020-03-10] MEDS: RT-ALBUTEROL INHALER HFA (VENTOLIN HFA) 18 GM IH SCH ×2 (02:03→07:29)
[2020-03-10] MEDS: LACTATED RINGERS 1,000 ML IV SCH (03:26)
[2020-03-10 03:42] LABS: BASOPHILS # (AUTO) 0.1 10^3/uL (0.0-0.1); BASOPHILS % (AUTO) 1 % (0-10); EOSINOPHILS # (AUTO) 0.4 10^3/uL (0.0-0.3); EOSINOPHILS % (AUTO) 3 % (0-10); HEMATOCRIT 28 % (35-52); HEMOGLOBIN 7.8 g/dL (11.5-16.0); LYMPHOCYTES # (AUTO) 3.5 10^3/uL (1.0-4.0); LYMPHOCYTES % (AUTO) 30 % (12-44); MEAN CORPUSCULAR HEMOGLOBIN 23 pg (25-34); MEAN CORPUSCULAR HGB CONC 28 g/dL (32-36); MEAN CORPUSCULAR VOLUME 81 fL (80-99); MEAN PLATELET VOLUME 9.9 fL (9.0-12.2); MONOCYTES # (AUTO) 0.9 10^3/uL (0.0-1.0); MONOCYTES % (AUTO) 7 % (0-12); NEUTROPHILS # (AUTO) 6.8 10^3/uL (1.8-7.8); NEUTROPHILS % (AUTO) 58 % (42-75); PLATELET COUNT 430 10^3/uL (130-400); WHITE BLOOD COUNT 11.7 10^3/uL (4.3-11.0)
[2020-03-10 03:55] LABS: CHLORIDE 102 MMOL/L (98-107); POTASSIUM 3.5 MMOL/L (3.6-5.0); SODIUM 144 MMOL/L (135-145)
[2020-03-10 03:56] LABS: CALCIUM 8.4 MG/DL (8.5-10.1)
[2020-03-10 03:57] LABS: GLUCOSE 104 MG/DL (70-105)
[2020-03-10 03:59] LABS: CARBON DIOXIDE 30 MMOL/L (21-32)
[2020-03-10 04:00] VITALS: BP 158/88
[2020-03-10 04:01] LABS: CREATININE SERUM 0.81 MG/DL (0.60-1.30); GFR ESTIMATED > 60; PHOSPHORUS 3.6 MG/DL (2.3-4.7)
[2020-03-10 04:02] LABS: BUN/CREATININE RATIO 12
[2020-03-10 04:03] LABS: MAGNESIUM 1.5 MG/DL (1.6-2.4)
[2020-03-10 05:00] VITALS: BP 135/86
[2020-03-10] MEDS: PIPERACILLIN/TAZOBACTAM (BULK) 4.5 GM in NS (IVPB) 100 ML IV SCH (05:31)
--- NOTE | 2020-03-10 05:40 | Pulmonary Progress Note ---
ANTHONY KOO MED STUDENT 03/10/20 0540: Subjective Date Seen by a Provider: Mar 10, 2020 Time Seen by a Provider: 05:25 Subjective/Events-last exam When seen this morning Saadia Bautista has no new complaints. She seemed upset that she had been woken up again, did not answer some questions and was somnolent. Spoke to her son Moi, who she then realized was not present. Nursing reports she has been taking monitors off during the night. Review of Systems Pulmonary: No Dyspnea ('no more than usual'), No Cough ('no more than usual') Cardiovascular: No: Chest Pain ('no more than usual'), Palpitations ('no more than usual') Gastrointestinal: No: Abdominal Pain Sepsis Event Evaluation Height, Weight, BMI Height: 5'7.50" Weight: 200lbs. 1.0oz. 90.392095ij; 41.13 BMI Method:Stated Focused Exam Lactate Level 03/08/20 19:15: Lactic Acid Level 0.62 03/09/20 06:25: Lactic Acid Level 0.47L Exam Exam Vital Signs Date Time Temp Pulse Resp B/P (MAP) Pulse Ox O2 Delivery O2 Flow Rate FiO2 03/10/20 05:00 90 27 135/86 (102) 89 Vapotherm 25.00 40.00 03/10/20 04:25 80 19 90 Vapotherm 25.00 40.00 03/10/20 04:00 90 12 158/88 (111) 94 Vapotherm 20.00 40.00 03/10/20 03:00 114 29 92 Vapotherm 20.00 40.00 03/10/20 02:07 94 20 92 Vapotherm 20.00 40.00 03/10/20 02:03 95 Vapotherm 30.00 40 03/10/20 02:00 77 27 133/84 (100) 91 Vapotherm 25.00 40.00 03/10/20 01:00 108 15 119/73 (88) 93 Vapotherm 25.00 40.00 03/10/20 01:00 108 03/10/20 00:43 94 Vapotherm 30.00 40 03/10/20 00:30 25.00 40.00 03/10/20 00:00 112 21 127/70 (89) 94 Vapotherm 30.00 50.00 03/10/20 00:00 36.9 03/10/20 00:00 95 Vapotherm 30.00 40 03/09/20 23:00 112 15 134/77 (96) 97 Vapotherm 30.00 50.00 03/09/20 22:09 107 9 134/74 (94) 89 Vapotherm 30.00 50.00 03/09/20 21:00 115 19 106/68 (81) 91 Vapotherm 30.00 50.00 03/09/20 20:00 95 Vapotherm 30.00 40 03/09/20 20:00 118 28 157/66 (96) 93 Vapotherm 30.00 50.00 03/09/20 20:00 36.6 03/09/20 19:31 123 156/97 (116) 94 Vapotherm 30.00 50.00 03/09/20 19:27 36.7 03/09/20 19:24 98 Vapotherm 30.00 40 03/09/20 19:00 91 21 92 Vapotherm 30.00 50.00 03/09/20 19:00 91 03/09/20 18:00 118 25 142/80 (100) 97 Vapotherm 30.00 50.00 03/09/20 16:00 95 Vapotherm 30.00 40 03/09/20 16:00 36.9 03/09/20 16:00 124 16 96 Vapotherm 30.00 50.00 03/09/20 15:24 98 Vapotherm 30.00 40 03/09/20 15:00 117 24 97 Vapotherm 30.00 50.00 03/09/20 14:06 37.0 121 97 03/09/20 14:00 130 24 98 Vapotherm 30.00 50.00 03/09/20 13:00 117 24 96 Vapotherm 30.00 50.00 03/09/20 12:49 126 03/09/20 12:22 37.0 03/09/20 12:00 97 Vapotherm 30.00 50 03/09/20 12:00 126 20 98 Vapotherm 30.00 50.00 03/09/20 11:00 120 20 98 Vapotherm 30.00 50.00 03/09/20 10:35 97 Vapotherm 30.00 50 03/09/20 10:00 92 25 96 Vapotherm 30.00 50.00 03/09/20 09:00 114 26 107/69 (82) 99 Vapotherm 30.00 50.00 03/09/20 08:41 36.0 122 30 106/48 (67) 90 Vapotherm 30.00 50.00 03/09/20 08:15 Vapotherm 30.00 50.00 03/09/20 08:00 94 Vapotherm 30.00 50 03/09/20 08:00 74 16 86 NIV Bilevel 30.00 03/09/20 07:00 73 18 96 NIV Bilevel 30.00 03/09/20 06:55 93 95 30.00 03/09/20 06:49 108 03/09/20 06:00 65 19 136/78 (97) 93 NIV Bilevel 30.00 I & O 03/10/20 07:00 Intake Total 2493 ml Output Total 2825 ml Balance -332 ml Height & Weight Height: 5'7.50" Weight: 200lbs. 1.0oz. 90.684981mj; 41.13 BMI Method:Stated General Appearance: WD/WN, Obese Respiratory: Chest Non Tender, Lungs Clear, No Accessory Muscle Use, No Respiratory Distress, Decreased Breath Sounds Cardiovascular: Regular Rate, Rhythm, No Edema, No Gallop, No Murmur, Normal Pe ripheral Pulses Capillary Refill: Less Than 3 Seconds Peripheral Pulses: 2+ Dorsalis Pedis (R), 2+ Left Dors-Pedis (L), 2+ Radial Pulses (R), 2+ Radial Pulses (L) Extremity: Normal Capillary Refill, Normal Inspection, Non Tender, No Calf Tenderness, No Pedal Edema Neurologic/Psychiatric: Alert; No Oriented x3; Disoriented Skin: Normal Color, Warm/Dry, Rash (psoriasis on b/l LE) Results Lab Laboratory Tests 03/09/20 03:24 03/10/20 03:07 Assessment/Plan Assessment/Plan Acute on chronic respiratory failure -Continue BiPAP. Currently on 25 L/min at 40% Atelectasis r/o PNA -Zosyn -Fontaine cultures pending -MRSA swab pending -COVID swab negative Hypokalemia K 3.5, replace Hypomagnesemia Mg 1.5, replace Anemia 11.7 today, was 12.0 on 03/09 -Continue to monitor Debilty -PT/OT SHEMAR BERMAN DO 03/10/20 0643: Assessment/Plan Assessment/Plan Acute on chronic respiratory failure -Continue BiPAP. Currently on 25 L/min at 40% Atelectasis r/o PNA -Zosyn -Fontaine cultures pending -MRSA swab pending -COVID swab negative Hypokalemia K 3.5, replace Hypomagnesemia Mg 1.5, replace Anemia 11.7 today, was 12.0 on 03/09 -Continue to monitor Debilty -PT/OT Pt is ok for rehab today. Supervisory-Addendum Brief Verification & Attestation Participated in pt care: history, MDM, physical Personally performed: exam, history, MDM Care discussed with: Medical Student Procedures: n/a Verification and Attestation of Medical Student E/M Service A medical student performed and documented this service in my presence. I reviewed and verified all information documented by the medical student and made modifications to such information, when appropriate. I personally performed the physical exam and medical decision making. Shemar Berman, Mar 10, 2020,06:43 ANTHONY KOO MED STUDENT Mar 10, 2020 05:40 SHEMAR BERMAN DO Mar 10, 2020 06:43
[2020-03-10] MEDS: ADVAIR HFA 115/21 MCG INHALER 8 GM IH SCH (07:29)
[2020-03-10] MEDS: PANTOPRAZOLE 40 MG (PROTONIX) VIAL IV SCH (08:05)
[2020-03-10] MEDS: POTASSIUM CL 10MEQ/50ML IVPB 50 ML IV SCH ×3 (08:05→10:38)
[2020-03-10] MEDS: MAGNESIUM 1 GM/100 ML IVPB 100 ML IV SCH ×3 (08:05→10:33)
[2020-03-10] MEDS: SENNA W/DOCUSATE (SENOKOT S) TABLET PO SCH (08:06)
--- NOTE | 2020-03-10 08:18 | Diagnostic Imaging Report ---
EXAMINATION: Portable erect AP chest at 3:18 AM INDICATION: Respiratory distress, renal insufficiency. The heart size is stable when compared to the prior exam of 03/09/2020. The lungs remain generally clear. There is a vague area of slightly increased density in the right lung base. This is questionable for mild developing pneumonia/atelectasis. The mediastinum is not widened. The osseous structures are intact. IMPRESSION: The overall appearance of the chest has not changed significantly since the prior exam. However, there is a question of mild pneumonia/atelectasis involving the right lung base. Clinical follow-up is recommended. Dictated by: Dictated on workstation # [id number]
[2020-03-10] MEDS ORDERED: IRON SUCROSE 200 MG/10 ML (VENOFER) VIAL IV SCH (09:00)
--- NOTE | 2020-03-10 09:13 | NUR ---
IRF At the direction of Dr. Pringle, patient to return to ARU, today. Attempted to contact unit to facilitate transfer, with no success. Will re-attempt.
--- NOTE | 2020-03-10 09:23 | Discharge Summary ---
Diagnosis/Chief Complaint Date of Admission Mar 08, 2020 at 18:45 Date of Discharge Discharge Date: Mar 10, 2020 Discharge Diagnosis Assessment: Acute on chronic respiratory failure COPD Hypercapnia Hypoxia Chronic debility Discharge Summary Discharge Physical Examination Allergies: Coded Allergies: clindamycin (Unverified Allergy, Mild, HIVES, 11/21/09) meperidine (Unverified Allergy, Mild, HAS RECEIVED FENTANYL IN THE PAST, 08/11/09) morphine (Unverified Allergy, Mild, 11/21/09) doxycycline (Verified Allergy, Unknown, 06/14/19) codeine (Verified Adverse Reaction, Unknown, NAUSEA, 11/21/09) Vitals & I&Os Vital Signs Date Time Temp Pulse Resp B/P (MAP) Pulse Ox O2 Delivery O2 Flow Rate FiO2 03/10/20 08:35 36.7 03/10/20 08:00 95 Nasal Cannula 3.00 03/10/20 06:39 92 03/10/20 06:00 25 03/10/20 04:00 40 General Appearance: Alert, Oriented X3, Cooperative Respiratory: Clear to Auscultation Cardiovascular: Regular Rate Neuro: Normal Speech Psych/Mental Status: Mental Status NL Hospital Course Was the Problem List Reviewed?: Yes Short course after admitted to ICU from IRF and placed on biPAP. CO2 levels improved and Dr Berman managed critical illness. Patient was placed on IVF and IV abx and was able to be weaned off of biPAP and placed on Vapotherm and ultima tely weaned to NC and patient was moved to IRF to resume rehab status while completing abx and supportive care. Labs (last 24 hrs) Laboratory Tests 03/08/20 19:15: Lactic Acid Level 0.62, Procalcitonin 0.16H 03/08/20 23:00: Coronavirus (COVID-19)(PCR) Negative, Coronavirus 2019 (LILIAN) Negative 03/09/20 02:23: Blood Gas Puncture Site RIGHT RADIAL, Blood Gas Patient Temperature 36.6, Arterial Blood pH 7.42, Arterial Blood Partial Pressure CO2 61H, Arterial Blood Partial Pressure O2 57L, Arterial Blood HCO3 39H, Arterial Blood Total CO2 40.8H , Arterial Blood Oxygen Saturation 88L, Arterial Blood Base Excess 13.6H, Merlin Test POSITIVE, Blood Gas Ventilator Setting NO, Blood Gas Inspired Oxygen 30% FIo2 03/09/20 03:24: White Blood Count 12.0H, Red Blood Count 3.41L, Hemoglobin 7.8L, Hematocrit 28L, Mean Corpuscular Volume 83, Mean Corpuscular Hemoglobin 23L, Mean Corpuscular Hemoglobin Concent 28L, Red Cell Distribution Width 16.8H, Platelet Count 440H, Mean Platelet Volume 9.8, Immature Granulocyte % (Auto) 1, Neutrophils (%) (Auto) 48, Lymphocytes (%) (Auto) 39, Monocytes (%) (Auto) 8, Eosinophils (%) (Auto) 4, Basophils (%) (Auto) 1, Neutrophils # (Auto) 5.8, Lymphocytes # (Auto) 4.6H, Monocytes # (Auto) 0.9, Eosinophils # (Auto) 0.5H, Basophils # (Auto) 0.1, Immature Granulocyte # (Auto) 0.1, Sodium Level 141, Potassium Level 3.9, Chloride Level 98, Carbon Dioxide Level 34H, Anion Gap 9, Blood Urea Nitrogen 17, Creatinine 0.78, Estimat Glomerular Filtration Rate > 60, BUN/Creatinine Ratio 22, Glucose Level 87, Calcium Level 8.4L, Corrected Calcium 8.9, Iron Level 20L, Total Bilirubin 0.2, Aspartate Amino Transf (AST/SGOT) 14, Alanine Aminotransferase (ALT/SGPT) 10, Alkaline Phosphatase 76, B-Type Natriuretic Peptide 21.1, Total Protein 5.7L, Albumin 3.4 03/09/20 06:25: Lactic Acid Level 0.47L, Procalcitonin 0.12H 03/09/20 06:30: Urine Legionella pneumophilia Ag Negative, Streptococcus pneumoniae Antigen Negative 03/10/20 03:07: White Blood Count 11.7H, Red Blood Count 3.43L, Hemoglobin 7.8L, Hematocrit 28L, Mean Corpuscular Volume 81, Mean Corpuscular Hemoglobin 23L, Mean Corpuscular Hemoglobin Concent 28L, Red Cell Distribution Width 16.8H, Platelet Count 430H, Mean Platelet Volume 9.9, Immature Granulocyte % (Auto) 0, Neutrophils (%) (Auto) 58, Lymphocytes (%) (Auto) 30, Monocytes (%) (Auto) 7, Eosinophils (%) (Auto) 3, Basophils (%) (Auto) 1, Neutrophils # (Auto) 6.8, Lymphocytes # (Auto) 3.5, Monocytes # (Auto) 0.9, Eosinophils # (Auto) 0.4H, Basophils # (Auto) 0.1, Immature Granulocyte # (Auto) 0.1, Sodium Level 144, Potassium Level 3.5L, Chlor sudha Level 102, Carbon Dioxide Level 30, Anion Gap 12, Blood Urea Nitrogen 10, Creatinine 0.81, Estimat Glomerular Filtration Rate > 60, BUN/Creatinine Ratio 12, Glucose Level 104, Calcium Level 8.4L, Phosphorus Level 3.6, Magnesium Level 1.5L Microbiology 03/09/20 Blood Culture - Preliminary, Resulted No growth 03/08/20 MRSA Screen - Final, Complete MRSA not isolated Pending Labs Microbiology Date/Time Source Procedure Growth Status 03/09/20 06:35 Peripheral Lt Ac Blood Culture - Preliminary No growth Resulted 03/09/20 06:25 Peripheral Rt Ac Blood Culture - Preliminary No growth Resulted 03/08/20 20:50 Nasal MRSA Screen - Final MRSA not isolated Complete Laboratory Tests 03/08/20 19:15: Lactic Acid Level 0.62, Procalcitonin 0.16 03/08/20 23:00: Coronavirus (COVID-19)(PCR) Negative, Coronavirus 2019 ([facility]ILIAN) Negative 03/09/20 02:23: Blood Gas Puncture Site RIGHT RADIAL, Blood Gas Patient Temperature 36.6, Arterial Blood pH 7.42, Arterial Blood Partial Pressure CO2 61, Arterial Blood Partial Pressure O2 57, Arterial Blood HCO3 39, Arterial Blood Total CO2 40.8, Arterial Blood Oxygen Saturation 88, Arterial Blood Base Excess 13.6, Merlin Test POSITIVE, Blood Gas Ventilator Setting NO, Blood Gas Inspired Oxygen 30% FIo2 03/09/20 03:24: White Blood Count 12.0, Red Blood Count 3.41, Hemoglobin 7.8, Hematocrit 28, Mean Corpuscular Volume 83, Mean Corpuscular Hemoglobin 23, Mean Corpuscular Hemoglobin Concent 28, Red Cell Distribution Width 16.8, Platelet Count 440, Mean Platelet Volume 9.8, Immature Granulocyte % (Auto) 1, Neutrophils (%) (Auto) 48, Lymphocytes (%) (Auto) 39, Monocytes (%) (Auto) 8, Eosinophils (%) (Auto) 4, Basophils (%) (Auto) 1, Neutrophils # (Auto) 5.8, Lymphocytes # (Auto) 4.6, Monocytes # (Auto) 0.9, Eosinophils # (Auto) 0.5, Basophils # (Auto) 0.1, Immature Granulocyte # (Auto) 0.1, Sodium Level 141, Potassium Level 3.9, Chloride Level 98, Carbon Dioxide Level 34, Anion Gap 9, Blood Urea Nitrogen 17, Creatinine 0.78, Estimat Glomerular Filtration Rate > 60, BUN/Creatinine Ratio 22, Glucose Level 87, Calcium Level 8.4, Corrected Calcium 8.9, Iron Level 20, Total Bilirubin 0.2, Aspartate Amino Transf (AST/SGOT) 14, Alanine Aminotransferase (ALT/SGPT) 10, Alkaline Phosphatase 76, B-Type Natriuretic Peptide 21.1, Total Protein 5.7, Albumin 3.4 03/09/20 06:25: Lactic Acid Level 0.47, Procalcitonin 0.12 03/09/20 06:30: Urine Legionella pneumophilia Ag Negative, Streptococcus pneumoniae Antigen Negative 03/10/20 03:07: White Blood Count 11.7, Red Blood Count 3.43, Hemoglobin 7.8, Hematocrit 28, Mean Corpuscular Volume 81, Mean Corpuscular Hemoglobin 23, Mean Corpuscular Hemoglobin Concent 28, Red Cell Distribution Width 16.8, Platelet Count 430, Mean Platelet Volume 9.9, Immature Granulocyte % (Auto) 0, Neutrophils (%) (Auto) 58, Lymphocytes (%) (Auto) 30, Monocytes (%) (Auto) 7, Eosinophils (%) (Auto) 3, Basophils (%) (Auto) 1, Neutrophils # (Auto) 6.8, Lymphocytes # (Auto) 3.5, Monocytes # (Auto) 0.9, Eosinophils # (Auto) 0.4, Basophils # (Auto) 0.1, Immature Granulocyte # (Auto) 0.1, Sodium Level 144, Potassium Level 3.5, Chloride Level 102, Carbon Dioxide Level 30, Anion Gap 12, Blood Urea Nitrogen 10, Creatinine 0.81, Estimat Glomerular Filtration Rate > 60, BUN/Creatinine Ratio 12, Glucose Level 104, Calcium Level 8.4, Phosphorus Level 3.6, Magnesium Level 1.5 Discharge Home Medications: Active Scripts Active Advair Hfa 115-21 Mcg Inhaler (Fluticasone/Salmeterol) 12 Gm Hfa.aer.ad 2 Puff IH BID 60 Days Proair Hfa (Albuterol Sulfate) 1 Puff Puff 2 Puff IH Q4H 30 Days 1 PUFF = 90 MCG Reported Olanzapine 10 Mg Tablet 10 Mg PO HS TAKES 10MG +20MG TO EQUAL 30MG AT BEDTIME Metoprolol Succinate 100 Mg Tab.er.24h 100 Mg PO BID Omeprazole 20 Mg Capsule.dr 20 Mg PO SLIDING/SCALE Amlodipine Besylate 5 Mg Tablet 5 Mg PO DAILY Folic Acid 1 Mg Tablet 1 Mg PO DAILY Methotrexate (Methotrexate Sodium) 2.5 Mg Tablet 7.5 Mg PO SUNDAY TAKES 3 (2.5MG) TO EQUAL 7.5MG Tylenol Arthritis (Acetaminophen) 650 Mg Tablet.er 1,300-1,950 Mg PO BID PRN TAKES 2 TO 3 (650MG) TABS Vitamin D3 (Cholecalciferol (Vitamin D3)) 50 Mcg Capsule 100 Mcg PO DAILY TAKES 2 (50MCG) CAPS DAILY Metformin HCl 500 Mg Tablet 500 Mg PO BIDAC Olanzapine 20 Mg Tablet 20 Mg PO HS TAKES 10MG +20MG TO EQUAL 30MG AT BEDTIME B-12 (Cyanocobalamin (Vitamin B-12)) 500 Mcg Tablet 1,000 Mcg PO DAILY Cetirizine HCl 10 Mg Tablet 10 Mg PO DAILY Atorvastatin Calcium 10 Mg Tablet 10 Mg PO HS Sucralfate 1 Gm Tablet 1 Gm PO TIDAC LAST FILLED 12-18-2019 #90/30 DAY SUPPLY Donepezil HCl 10 Mg Tablet 10 Mg PO HS Instructions to patient/family Please see electronic discharge instructions given to patient. Diagnosis/Problems Diagnosis/Problems (1) Acute on chronic respiratory failure with hypoxia and hypercapnia Status: Acute (2) Obesity hypoventilation syndrome (3) Lupus Status: Chronic (4) Hypertension Status: Chronic (5) Bipolar disorder Status: Chronic (6) Generalized weakness Status: Acute (7) Morbid obesity Status: Acute (8) Dementia Status: Acute (9) Chronic mental illness Status: Chronic (10) Oxygen dependent Status: Chronic (11) Psoriasis Status: Chronic Clinical Quality Measures DVT/VTE Risk/Contraindication: Risk Factor Score Per Nursin RFS Level Per Nursing on Admit: 4+=Very High SAMANTHA COLLIER DO Mar 10, 2020 09:22
[2020-03-10] MEDS ORDERED: meTOprolol TARTRATE 50 MG (LOPRESSOR) TAB ONE (09:45)
[2020-03-10] MEDS ORDERED: meTOproloL SUCCINATE 50 MG (TOPROL XL) TAB PO SCH (10:00)
[2020-03-10] MEDS ORDERED: meTOprolol TARTRATE 50 MG (LOPRESSOR) TAB PO ONE (10:00)
--- NOTE | 2020-03-10 10:19 | Consultation-Cardiology ---
HPI-Cardiology Cardiology Consultation Date of Consultation 03/10/20 Date of Admission Time Seen by Provider: 05:25 Indication: tachycardia HPI Patient is a 60 y/o female with history of HTN, HLP, COPD/DUDLEY, morbid obesity. Was admitted to IRF for generalized weakness/debilily, patient reports falling at home secondary to weakness. States has had black tarry stools at home. Had a cute respiratory failure and was transferred to ICU yesterday. Patient reports she is feeling better. States continues to have some dyspnea, but slowly improving. Denies any chest pain or palpitations, noted to be tachycardic. Denies any hx of CAD or CHF. No other complaints at this time. Home Medications & Allergies Allergies: Coded Allergies: clindamycin (Unverified Allergy, Mild, HIVES, 11/21/09) meperidine (Unverified Allergy, Mild, HAS RECEIVED FENTANYL IN THE PAST, 08/11/09) morphine (Unverified Allergy, Mild, 11/21/09) doxycycline (Verified Allergy, Unknown, 06/14/19) codeine (Verified Adverse Reaction, Unknown, NAUSEA, 11/21/09) Home Medication List Reviewed: Yes PLY-Qqyyku-Ynyxyz Hx Patient Social History Marital Status: single Employed/Student: unemployed Alcohol Use: Denies Use Smoking Status: Former Smoker Type Used: Cigarettes 2nd Hand Smoke Exposure: No Recent Hopitalizations: Yes Immunizations Up To Date Tetanus Booster (TDap): Unknown Date of Pneumonia Vaccine: Mar 11, 2011 Date of Influenza Vaccine: Feb 22, 2018 Past Medical History COPD/DUDLEY, HTN, HLP, DM, morbid obesity Family Medical History Significant Family History: No Pertinent Family Hx, GI Disease Family History: Arthritis 19 FATHER 19 MOTHER Cardiovascular disease 19 FATHER Cataracts 19 MOTHER Completed stroke 19 MOTHER Dysphasia 19 FATHER FH: cirrhosis 19 MOTHER Glaucoma 19 MOTHER Hypercholesterolemia 19 FATHER Hypertension 19 FATHER 19 MOTHER Myocardial infarction 19 FATHER Osteoporosis 19 MOTHER No Family History of: AIDS Abdominal aortic aneurysm Mcculloch's disease Alcoholism Alzheimer's disease Aphasia Asthma Cancer of mouth Colon cancer Congenital disease Congenital heart disease Coronary thrombosis Cystic fibrosis Deafness or hearing loss Dementia Diabetes mellitus Drug abuse Fibrocystic disease of breast Gastroenteritis Headache disorder Infertility Kidney disease Neoplasm Not obtainable due to adoption Parkinson's disease Prostate cancer Psychosocial problem Respiratory disorder Seizure disorder Severe allergy Thyroid disease Tuberculosis Visual disorder Review of Systems-General Review of Systems Constitutional: see HPI; No chills, No diaphoresis, No dizziness, No fever; malaise EENTM: see HPI, no symptoms reported; No blurred vision, No double vision, No vision loss Respiratory: see HPI; No cough; dyspnea on exertion, short of breath Cardiovascular: see HPI; No chest pain, No edema, No Hx of Intervention, No palpitations, No syncope, No vascular heart diseas Gastrointestinal: No abdominal pain Genitourinary: No dysuria, No frequency Musculoskeletal: No back pain, No joint pain Skin: No lesions Psychiatric/Neurological: Denies Anxiety, Denies Depressed Reviewed Test Results Reviewed Test Results Lab Laboratory Tests 03/10/20 03:07: White Blood Count 11.7H, Red Blood Count 3.43L, Hemoglobin 7.8L, Hematocrit 28L, Mean Corpuscular Volume 81, Mean Corpuscular Hemoglobin 23L, Mean Corpuscular Hemoglobin Concent 28L, Red Cell Distribution Width 16.8H, Platelet Count 430H, Mean Platelet Volume 9.9, Immature Granulocyte % (Auto) 0, Neutrophils (%) (Auto) 58, Lymphocytes (%) (Auto) 30, Monocytes (%) (Auto) 7, Eosinophils (%) (Auto) 3, Basophils (%) (Auto) 1, Neutrophils # (Auto) 6.8, Lymphocytes # (Auto) 3.5, Monocytes # (Auto) 0.9, Eosinophils # (Auto) 0.4H, Basophils # (Auto) 0.1, Immature Granulocyte # (Auto) 0.1, Sodium Level 144, Potassium Level 3.5L, Chloride Level 102, Carbon Dioxide Level 30, Anion Gap 12, Blood Urea Nitrogen 10, Creatinine 0.81, Estimat Glomerular Filtration Rate > 60, BUN/Creatinine Ratio 12, Glucose Level 104, Calcium Level 8.4L, Phosphorus Level 3.6, Magnesium Level 1.5L Microbiology 03/08/20 MRSA Screen - Final, Complete MRSA not isolated ECG Impression ECG Initial ECG Rhythm: S.Tach Physical Exam Physical Exam Vital Signs Vital Signs - First Documented 03/08/20 03/08/20 19:37 20:00 Temp 36.4 Pulse 92 Resp 28 B/P (MAP) 142/72 (95) Pulse Ox 100 O2 Delivery NIV Bilevel O2 Flow Rate 30.00 FiO2 30 Capillary Refill : Less Than 3 Seconds Height, Weight, BMI Height: 5'7.50" Weight: 200lbs. 1.0oz. [id number]; 41.13 BMI Method:Stated General Appearance: No Apparent Distress, WD/WN, Obese Eyes: Bilateral Eye Normal Inspection, Bilateral Eye PERRL HEENT: PERRL/EOMI, Normal ENT Inspection Neck: Non Tender, Supple Respiratory: Chest Non Tender, Lungs Clear, No Accessory Muscle Use, No Respiratory Distress, Decreased Breath Sounds Cardiovascular: No Edema, No Gallop, No Murmur, Normal Peripheral Pulses, Tachycardia Gastrointestinal: Normal Bowel Sounds, No Organomegaly, No Pulsatile Mass, Non Tender, Soft Back: Normal Inspection, No CVA Tenderness, No Vertebral Tenderness Extremity: Normal Capillary Refill, Normal Inspection, Non Tender, No Calf Tenderness, No Pedal Edema Neurologic/Psychiatric: Alert; No Oriented x3; Disoriented Skin: Normal Color, Warm/Dry, Rash (psoriasis on b/l LE) A/P-Cardiology Admission Diagnosis Tachycardia Acute on chronic respiratory failure HTN Anemia Assessment/Plan Tachycardia- telemetry shows sinus tachycardia with HR in the 130's. Patient started on beta rey. I will obtain EKG. Likely secondary to underlying anemia. Acute on chronic respiratory failure, slowly improving. Questionable pneumonia on CXR, started on antibiotics, management per Dr. Pringle and Dr. Berman Anemia, unknown etiology, Hgb 7.8, continue to monitor H/H, transfuse as needed. Paitent c/o black tarry stools at home. Consult surgery to discuss EGD. HTN- elevated, I will start Toprol XL 100mg daily, continue to monitor HLP- continue to monitor lipids as outpatient COPD/DUDLEY, followed by Dr. Berman History of diverticulitis with colon resection in the past GERD Morbid obsesity Lupus Psoriasis Thank you for allowing us to participate in the management of Ms Bautista. This is Lachelle Guthrie PA-C, as a scribe for Dr. Fuentes. Patient was seen and evaluated with Lachelle, examination performed, management plan was discussed, agree with the current scribed note, I made few changes to the note using Italic font Patient is laying down in bed, feeling somewhat better, still tachycardic I will restart Toprol-XL 100 mg, received already one dose of metoprolol 50 mg Patient has significant anemia, discussed with Dr. Pringle the management plan, will need workup for possible occult loss History of systemic lupus erythematous, psoriasis, anxiety Clinical Quality Measures DVT/VTE Risk/Contraindication: Risk Factor Score Per Nursin RFS Level Per Nursing on Admit: 4+=Very High LACHELLE VILA Mar 10, 2020 10:19 LORIE FUENTES MD Mar 10, 2020 12:23
[2020-03-10] MEDS ORDERED: meTOprolol SUCCINATE 100 MG (TOPROL XL) TAB PO SCH (10:30)
[2020-03-10] MEDS: ENOXAPARIN 40 MG/0.4 ML (LOVENOX) SYR SC SCH (10:37)
[2020-03-11] MEDS ORDERED: MAGNESIUM 1 GM/100 ML IVPB 100 ML IV SCH (06:00)
[2020-03-11] MEDS ORDERED: POTASSIUM CL 10MEQ/50ML IVPB 50 ML IV SCH (06:00)
[2020-03-11] MEDS ORDERED: KCL 20 MEQ TAB (K-DUR) PO SCH (06:00)
[2020-03-11] MEDS ORDERED: DONE10TA41 PO (17:16)
[2020-03-11] MEDS ORDERED: RT-ALBUINH IH (17:20)
[2020-03-11] MEDS ORDERED: AMLO5TAB9 PO (17:21)
[2020-03-11] MEDS ORDERED: ATOR10TA66 PO (17:22)
[2020-03-11] MEDS ORDERED: CETI10TA17 PO (17:24)
[2020-03-11] MEDS ORDERED: CHOL20003 PO ×2 (17:27→17:28)
[2020-03-11] MEDS ORDERED: CYAN100088 PO (17:31)
[2020-03-11] MEDS ORDERED: FLUT12AE4 IH (17:44)
[2020-03-11] MEDS ORDERED: FOLI0.8T PO (17:46)
[2020-03-11] MEDS ORDERED: METF-397 PO (17:48)
[2020-03-11] MEDS ORDERED: METH2.5T PO (17:50)
[2020-03-11] MEDS ORDERED: MTP100TCR PO (17:51)
[2020-03-11] MEDS ORDERED: OLAN20TA34 PO (17:53)
[2020-03-11] MEDS ORDERED: OLAN10TA19 PO (17:57)
[2020-03-11] MEDS ORDERED: SUCR1TAB PO (17:59)
[2020-03-11] MEDS ORDERED: OMEP20TA7 PO (18:02)
== END 2020-03-10 11:07 | DRG 189 ==
LOC: ICU 18:45
PROVIDERS: ADMIT Internal Medicine; ATTEND Internal Medicine
DX: J96.21 Acute and chronic respiratory failure with hypoxia (principal); J98.11 Atelectasis; E66.2 Morbid (severe) obesity with alveolar hypoventilation; Z68.41 Body mass index [BMI] 40.0-44.9, adult; J96.22 Acute and chronic respiratory failure with hypercapnia; J40 Bronchitis, not specified as acute or chronic; J44.9 Chronic obstructive pulmonary disease, unspecified; I25.10 Atherosclerotic heart disease of native coronary artery without angina pectoris; I10 Essential (primary) hypertension; E78.00 Pure hypercholesterolemia, unspecified; E11.9 Type 2 diabetes mellitus without complications; E03.9 Hypothyroidism, unspecified; D64.9 Anemia, unspecified; R60.9 Edema, unspecified; F03.90 Unspecified dementia, unspecified severity, without behavioral disturbance, psychotic disturbance, mood disturbance, and anxiety; G43.909 Migraine, unspecified, not intractable, without status migrainosus; K21.9 Gastro-esophageal reflux disease without esophagitis; K44.9 Diaphragmatic hernia without obstruction or gangrene; M19.91 Primary osteoarthritis, unspecified site; L94.8 Other specified localized connective tissue disorders; F41.9 Anxiety disorder, unspecified; F31.9 Bipolar disorder, unspecified; F60.9 Personality disorder, unspecified; L40.9 Psoriasis, unspecified; R53.81 Other malaise; E87.6 Hypokalemia; E83.42 Hypomagnesemia; Z20.828 Contact with and (suspected) exposure to other viral communicable diseases; Z99.81 Dependence on supplemental oxygen; Z87.891 Personal history of nicotine dependence; Z87.11 Personal history of peptic ulcer disease; Z87.01 Personal history of pneumonia (recurrent); Z87.440 Personal history of urinary (tract) infections; Z79.84 Long term (current) use of oral hypoglycemic drugs
CPT/HCPCS: 36415; 36600; 71045; 80048; 80053; 82805; 83540; 83605; 83735; 83880; 84100; 84145; 85025; 86850; 86900; 86901; 87040; 87081; 87449; 87635; 87899; 93005; 94640; 94660; G0378

== ENCOUNTER → 2020-03-11 | Day surgery (SDC) | payer MEDICARE ==
[~2020-03-11] MED LIST changes: +CHOL20003 PO; +CYAN100088 PO; +FOLI0.8T PO; +HURRICAINE EXT TUBE (BENZOCAINE) ONE; +HURRICAINE EXT TUBE (BENZOCAINE) XX ONE; +KETAMINE/NaCl 50 MG/5 ML SYRINGE (ED ONLY) ONE; +LACTATED RINGERS 1,000 ML IV ONE; +LIDOCAINE JELLY 2% 6 ML SYRINGE ONE; +LIDOCAINE JELLY 2% 6 ML SYRINGE TOP ONE; +MIDAZOLAM 2 MG/2 ML (VERSED) VIAL ONE; +OMEP20TA7 PO; +proPOfol 200 MG/20 ML (DIPRIVAN) VIAL IV ONE
[2020-03-11 10:31] VITALS: BP 146/76
[2020-03-11 10:36] VITALS: BP 159/74
[2020-03-11 10:41] VITALS: BP 159/75
--- NOTE | 2020-03-11 14:04 | OPERATIVE REPORT ---
DATE OF SERVICE: 03/11/2020 ATTENDING PRIMARY CARE PHYSICIAN: Garrett Ward DO ADMITTING PHYSICIAN: Rosalind Pringle DO INDICATIONS: The patient is a 60-year-old female with a history of multiple medical comorbidities. She does have a history of COPD and did have prolong issues with respiratory failure requiring tracheostomy, gastrostomy tube placement as well as long-term acute care. She was recently admitted for exacerbation of COPD. She also does have significant physical restrictions and disabilities due to her multiple medical comorbidities. She was transferred to inpatient rehabilitation, was found to be significantly anemic and this was after a fall. She reports that she has a history of gastroesophageal reflux disease as well as peptic ulcer disease. PREOPERATIVE DIAGNOSIS: symptomatic anemia. POSTOPERATIVE DIAGNOSES: Reflux esophagitis stage II, small hiatal hernia 2 cm in size, severe gastritis. No active bleeding. No distal obstructions. Chronic stage II external and internal hemorrhoids. PROCEDURE: EGD with biopsy, colonoscopy. SURGEON: Sid Evans MD. ANESTHESIA: Monitored anesthesia care. ESTIMATED BLOOD LOSS: Minimal. FINDINGS: Reflux esophagitis stage II, small hiatal hernia 2 cm in size, severe gastritis. No active bleeding. No distal obstructions. Chronic stage II external and internal hemorrhoids. DISPOSITION: The patient tolerated the procedure well. DESCRIPTION OF PROCEDURE: The patient was brought to the endoscopy suite, laid in the left lateral decubitus position with head slightly elevated. After adequate IV pain and sedative medications and monitored anesthesia care, the mouthpiece was applied. The endoscope was placed in the mouth, visualizing the pharynx and hypopharyngeal region. Vocal cords, epiglottis and vallecula identified and appeared to be normal. The endoscope was then gently intubated. Esophageal opening and esophagus insufflated. The endoscope was then advanced through the first, second and third portion of esophagus at the level of the GE junction, a reflux esophagitis stage II identified. There were no ulcers or strictures identified in this region. A biopsy was taken with forceps with visualization of good hemostasis. The endoscope was then advanced into the stomach and endoscope retroflexed, visualizing a small hiatal hernia approximately 2 cm in size. Towards the antrum of the stomach, where it was a significant gastritis noted with multiple linear erosions; however, no active bleeding identified. A biopsy was taken from the antrum to rule out H. pylori with visualization of good hemostasis. The endoscope was then advanced to the pylorus and the first and second portion of the duodenum, which appeared normal with no distal obstructions. The endoscope was then slowly withdrawn while taking a second look and suctioning of residual air with no additional findings. Under the same anesthesia, we then proceeded with colonoscopy portion of the procedure. Digital rectal examination was performed, which revealed chronic stage II external and internal hemorrhoids with no active bleeding. Normal sphincter tone was felt and there were no palpable masses. The endoscope was then intubated into the anus and rectum gently insufflated. The endoscope was then advanced through the valves of [place] of the rectum with no polyps or any neoplasms identified. The endoscope was then advanced to the remainder of the descending, transverse and ascending colon to the cecum. These segments appeared normal with no polyps or any neoplasms identified as well as no active bleeding sources. The endoscope was slowly withdrawn while taking a second look and suctioning of residual air with no additional findings. The patient tolerated the procedure well. We will continue medical therapy including PPI acid early morning as well as Carafate 1 gram q.i.d. for the next 2 weeks, then on a p.r.n. basis. She will also need to proceed with the necessary lifestyle and diet accommodation including small and more frequent meals, avoiding eating at night as well as head elevation while lying supine. She also needs to avoid caffeinated beverages, spicy, greasy and acidic foods. Job ID: [id number] DocumentID: [id number] Dictated Date: 03/11/2020 10:36:30 Pig Farm Manager Date: 03/11/2020 14:03:16 Dictated By: SID EVANS MD MTDD
--- NOTE | 2020-03-11 14:23 | Anesthesia-General Post-Op ---
MAC Patient Condition Mental Status/LOC: Same as Preop Cardiovascular: Satisfactory Nausea/Vomiting: Absent Respiratory: Satisfactory Pain: Controlled Complications: Absent Post Op Complications Complications None Follow Up Care/Instructions Patient Instructions None needed. Anesthesiology Discharge Order Discharge Order Patient was seen this morning after the procedure and she was doing well, no complaints, stable vital signs, no apparent adverse anesthesia problems. KANA COLLAZO DO Mar 11, 2020 14:23
== END ==
LOC: ENDO 06:49
PROVIDERS: ATTEND Surgery
DX: D64.9 Anemia, unspecified (principal); J44.9 Chronic obstructive pulmonary disease, unspecified; K21.00 Gastro-esophageal reflux disease with esophagitis, without bleeding; K44.9 Diaphragmatic hernia without obstruction or gangrene; K29.70 Gastritis, unspecified, without bleeding; K64.1 Second degree hemorrhoids; J96.20 Acute and chronic respiratory failure, unspecified whether with hypoxia or hypercapnia; G47.30 Sleep apnea, unspecified; E87.2 Acidosis; I10 Essential (primary) hypertension; E78.00 Pure hypercholesterolemia, unspecified; I25.10 Atherosclerotic heart disease of native coronary artery without angina pectoris; G43.909 Migraine, unspecified, not intractable, without status migrainosus; E11.9 Type 2 diabetes mellitus without complications; F31.9 Bipolar disorder, unspecified; L40.9 Psoriasis, unspecified; Z90.710 Acquired absence of both cervix and uterus; Z79.51 Long term (current) use of inhaled steroids; Z79.84 Long term (current) use of oral hypoglycemic drugs; Z79.899 Other long term (current) drug therapy; Z88.1 Allergy status to other antibiotic agents; Z88.5 Allergy status to narcotic agent; Z88.8 Allergy status to other drugs, medicaments and biological substances; Z87.891 Personal history of nicotine dependence; Z87.11 Personal history of peptic ulcer disease
CPT/HCPCS: 88305

== ENCOUNTER 2020-03-26 05:50 | Inpatient (IN) | payer MEDICARE ==
[~2020-03-26] VITALS: Ht 167 cm; Wt 108.9 kg
[~2020-03-26 05:50] MED LIST changes: +ACHD5005 PO; -HURRICAINE EXT TUBE (BENZOCAINE) ONE; -HURRICAINE EXT TUBE (BENZOCAINE) XX ONE; -KETAMINE/NaCl 50 MG/5 ML SYRINGE (ED ONLY) ONE; -LACTATED RINGERS 1,000 ML IV ONE; -LIDOCAINE JELLY 2% 6 ML SYRINGE ONE; -LIDOCAINE JELLY 2% 6 ML SYRINGE TOP ONE; -MIDAZOLAM 2 MG/2 ML (VERSED) VIAL ONE; -proPOfol 200 MG/20 ML (DIPRIVAN) VIAL IV ONE
--- NOTE | 2020-03-26 06:04 | NUR ---
dr murillo turned oxygenoff at this time.
--- NOTE | 2020-03-26 06:06 | NUR ---
patient sats 90% dr Ram turned oxygen on to 2 liters after patient desturated to 90%. current saturation 93%
--- NOTE | 2020-03-26 06:15 | NUR ---
DR CANDELARIA INSTRUCTS THIS RN TO NOT DO BLOOD CULTURES AND LACTIC ACID AT THIS TIME.
[2020-03-26 06:18] LABS: ABG OXYGEN SATURATION 93 % (94-100); ABG PO2 68 MMHG (79-93)
[2020-03-26] MEDS ORDERED: RT-ALBUTEROL INHALER HFA (VENTOLIN HFA) 18 GM IH ONE (06:18)
[2020-03-26 06:19] LABS: BASOPHILS % (AUTO) 0 % (0-10); EOSINOPHILS # (AUTO) 0.3 10^3/uL (0.0-0.3); EOSINOPHILS % (AUTO) 3 % (0-10); HEMATOCRIT 35 % (35-52); HEMOGLOBIN 9.6 g/dL (11.5-16.0); LYMPHOCYTES # (AUTO) 1.3 10^3/uL (1.0-4.0); LYMPHOCYTES % (AUTO) 12 % (12-44); MEAN CORPUSCULAR HEMOGLOBIN 25 pg (25-34); MEAN CORPUSCULAR HGB CONC 27 g/dL (32-36); MEAN CORPUSCULAR VOLUME 92 fL (80-99); MONOCYTES # (AUTO) 0.7 10^3/uL (0.0-1.0); MONOCYTES % (AUTO) 6 % (0-12); NEUTROPHILS # (AUTO) 8.8 10^3/uL (1.8-7.8); NEUTROPHILS % (AUTO) 79 % (42-75); PLATELET COUNT 461 10^3/uL (130-400); WHITE BLOOD COUNT 11.1 10^3/uL (4.3-11.0)
[2020-03-26 06:26] LABS: ABG PCO2 81 MMHG (35-45)
[2020-03-26 06:27] VITALS: BP 148/83
[2020-03-26 06:28] LABS: ALBUMIN 3.9 GM/DL (3.2-4.5); CHLORIDE 98 MMOL/L (98-107); POTASSIUM 4.4 MMOL/L (3.6-5.0); SODIUM 147 MMOL/L (135-145)
[2020-03-26 06:28] LABS: ABG PH 7.34 (7.37-7.43); ALLENS TEST YES-POS; INSPIRED O2 2L; PATIENT TEMP 98.6; VENTILATOR NO
[2020-03-26 06:29] LABS: CALCIUM 9.2 MG/DL (8.5-10.1)
[2020-03-26] MEDS ORDERED: RT-ALBUTEROL INHALER HFA (VENTOLIN HFA) 18 GM IH PRN ×2 (06:30→14:30)
[2020-03-26 06:31] LABS: GLUCOSE 109 MG/DL (70-105); TOTAL PROTEIN 6.6 GM/DL (6.4-8.2)
[2020-03-26 06:32] VITALS: BP 147/132
[2020-03-26 06:32] LABS: BILIRUBIN,TOTAL 0.3 MG/DL (0.1-1.0); CARBON DIOXIDE 40 MMOL/L (21-32)
[2020-03-26 06:34] LABS: ALKALINE PHOSPHATASE 100 U/L (40-136); CREATININE SERUM 0.74 MG/DL (0.60-1.30); GFR ESTIMATED > 60
[2020-03-26 06:35] LABS: BUN/CREATININE RATIO 12
[2020-03-26 06:37] LABS: ALANINE AMINOTRANSFERASE 14 U/L (0-55)
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
[2020-03-26 06:38] LABS: CREATINE KINASE 42 U/L (29-168); MAGNESIUM 1.8 MG/DL (1.6-2.4)
[2020-03-26 06:39] LABS: ERYTHROCYTE SEDIMENTATION RATE 64 MM/HR (0-30)
[2020-03-26 06:40] LABS: FIBRIN DEGRADATION PRODUCTS 0.73 UG/ML (0.00-0.49); INR 0.8 (0.8-1.4); PROTHROMBIN TIME PATIENT 10.9 SEC (12.2-14.7)
[2020-03-26 06:46] LABS: CREATINE KINASE MB 1.6 NG/ML (<6.6)
--- NOTE | 2020-03-26 06:58 | Diagnostic Imaging Report ---
EXAM: CHEST 1 VIEW, AP/PA ONLY INDICATION: Dyspnea. COMPARISON: Chest radiograph 03/15/2020. FINDINGS: Normal heart size and central pulmonary vascularity. No new focal pulmonary opacity. Stable calcified pleural plaques on the right. No acute osseous findings. Chronic right rib fractures. IMPRESSION: No acute cardiopulmonary findings. Chronic findings as above. Dictated by: Dictated on workstation # [id number]
[2020-03-26] MEDS ORDERED: IOHEXOL 350 MG/ML 150 ML (OMNIPAQUE 350) VIAL IV ONE (07:15)
[2020-03-26] MEDS ORDERED: HOLD METFORMIN - RECEIVED CONTRAST 20 ML VIAL IV SCH (07:15)
[2020-03-26] MEDS ORDERED: NS 100 ML (IVPB) BAG IV ONE (07:15)
[2020-03-26] MEDS ORDERED: LORazepam INJ 2 MG/ML (ATIVAN) VIAL ONE ×2 (07:22→12:10)
[2020-03-26] MEDS ORDERED: LORazepam INJ 2 MG/ML (ATIVAN) VIAL IVP ONE ×2 (07:30→09:00)
[2020-03-26] MEDS ORDERED: methylPREDNISolone 125 MG (Solu-MEDROL) VIAL IVP ONE (07:45)
--- NOTE | 2020-03-26 09:24 | NUR ---
PT HERE TO ICU # 10 FROM ICU. PT PLACED IN A GOWN AND MONITORS IN PLACE.
--- NOTE | 2020-03-26 09:40 | Diagnostic Imaging Report ---
PROCEDURE: CT angiography of the chest with contrast. TECHNIQUE: Multiple contiguous axial images were obtained through the chest after uneventful bolus administration of intravenous contrast. 3D reconstructed CTA MIP acquisitions were also performed. Auto Exposure Controls were utilized during the CT exam to meet ALARA standards for radiation dose reduction. INDICATION: Shortness of breath. COMPARISON is made with prior CT chest from 10/15/2018. Overall quality of the study is suboptimal, likely owing to patient large body habitus. Central pulmonary arteries are well opacified. No definite central filling defect is seen. Lobar branches appear to be patent. The segmental and subsegmental pulmonary arterial branches do demonstrate some questionable filling defects bilateral lower lobes. Thoracic aorta is normal caliber. There is no dissection. There is no pericardial or pleural fluid. Severe emphysematous changes bilateral upper lobes are again noted. Calcified plaque in the right upper lobe is seen. No mass is identified. There is some scarring or atelectasis in the lingula, left lower lobe. IMPRESSION: There are findings suggestive of pulmonary emboli involving segmental and subsegmental pulmonary arterial branches in the right and left lower lobes. No central emboli detected. Dictated by: Dictated on workstation # [id number]
[2020-03-26 09:45] VITALS: BP 140/69
[2020-03-26 10:00] VITALS: BP 130/70
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
[2020-03-26 11:00] VITALS: BP 143/119
--- NOTE | 2020-03-26 11:57 | History & Physical ---
HPI History of Present Illness: Pt somnolent at time of my exam, history from ER. Brought to ER by EMS after she called due to shortness of breath and difficulty getting her vent to mask to work. Per DME, she has been having trouble putting it on and they have been out multiple times and helped her but she immediately forgets how to do it again. Source: patient Exam Limitations: clinical condition Date seen by provider: Mar 26, 2020 Time Seen by Provider: 10:40 Attending Physician Lilian Alas MD PCP Garrett Ward DO Consult Date of Admission Mar 26, 2020 at 07:37 Home Medications Home Medications Reviewed patient Home Medication Reconciliation performed by pharmacy medication reconciliations certified phlebotomy technician and/or nursing. Patients Allergies have been reviewed. Allergies Coded Allergies: clindamycin (Unverified Allergy, Mild, HIVES, 03/26/20) meperidine (Unverified Allergy, Mild, HAS RECEIVED FENTANYL IN THE PAST, 03/26/20) morphine (Unverified Allergy, Mild, 03/26/20) doxycycline (Verified Allergy, Unknown, 03/26/20) codeine (Verified Adverse Reaction, Unknown, NAUSEA, 03/26/20) AWA-[id number]-Hatxfz Hx Patient Social History Alcohol Use: Denies Use Recreational Drug Use: Yes (20 YRS AGO) Type Used: Cigarettes 2nd Hand Smoke Exposure: No Recent Foreign Travel: No Contact w/other who traveled: No Recent Hopitalizations: Yes Recent Infectious Disease Expo: No Immunizations Up To Date Tetanus Booster (TDap): Unknown Date of Pneumonia Vaccine: Mar 11, 2011 Date of Influenza Vaccine: Mar 25, 2020 Past Medical History PMHx: COPD SurgHx: Sigmoid and colon resection for perforated diverticula Tracheostomy in past Splenectomy Hysterectomy Cholecystectomy Appendectomy C section Tibial fracture Family Medical History Significant Family History: No Pertinent Family Hx, GI Disease Other Significan Family Hx: PSH: -SIGMOID AND COLON RESECTION WITH COLOSTOMY FOR PERFORATED DIVERTICULUM--COMPLICATED BY PERFORATION/ANASTAMOTIC LEAK 2009 -LATER TAKEDOWN OF COLOSTOMY -TRACHEOSTOMY AND LATER REMOVAL FOR ARDS DUE TO POST OP COMPLICATIONS FROM COLON RESECTION -ALSO HAD PEG TUBE PLACEMENT AND LATER REMOVAL DUE TO SAME POST OP COMPLICATIONS FROM COLON RESECTION -SPLENECTOMY-DUE TO COMPLICATIONS FROM COLON RESECTION, PER PT -HYSTERECTOMY-ONE OVARY REMOVED -CHOLECYSTECTOMY -PILONIDAL CYST/ABSCESS REMOVED -APPENDECTOMY -BENIGN RIGHT BREAST BIOPSY/LUMPECTOMY - -TIBIAL PLATEAU FRACTURE Family History: Arthritis 19 FATHER 19 MOTHER Cardiovascular disease 19 FATHER Cataracts 19 MOTHER Completed stroke 19 MOTHER Dysphasia 19 FATHER FH: cirrhosis 19 MOTHER Glaucoma 19 MOTHER Hypercholesterolemia 19 FATHER Hypertension 19 FATHER 19 MOTHER Myocardial infarction 19 FATHER Osteoporosis 19 MOTHER No Family History of: AIDS Abdominal aortic aneurysm Bracken's disease Alcoholism Alzheimer's disease Aphasia Asthma Cancer of mouth Colon cancer Congenital disease Congenital heart disease Coronary thrombosis Cystic fibrosis Deafness or hearing loss Dementia Diabetes mellitus Drug abuse Fibrocystic disease of breast Gastroenteritis Headache disorder Infertility Kidney disease Neoplasm Not obtainable due to adoption Parkinson's disease Prostate cancer Psychosocial problem Respiratory disorder Seizure disorder Severe allergy Thyroid disease Tuberculosis Visual disorder Review of Systems ([facility]) Constitutional: other (unable to obtain due to patient condition) Reviewed Test Results Reviewed Test Results Lab Laboratory Tests Test 03/26/20 06:10 03/26/20 06:14 Range/Units White Blood Count 11.1 H 4.3-11.0 10^3/uL Red Blood Count 3.83 3.80-5.11 10^6/uL Hemoglobin 9.6 L 11.5-16.0 g/dL Hematocrit 35 35-52 % Mean Corpuscular Volume 92 80-99 fL Mean Corpuscular Hemoglobin 25 25-34 pg Mean Corpuscular Hemoglobin Concent 27 L 32-36 g/dL Red Cell Distribution Width 21.6 H 10.0-14.5 % Platelet Count 461 H 130-400 10^3/uL Mean Platelet Volume 10.0 9.0-12.2 fL Immature Granulocyte % (Auto) 0 % Neutrophils (%) (Auto) 79 H 42-75 % Lymphocytes (%) (Auto) 12 12-44 % Monocytes (%) (Auto) 6 0-12 % Eosinophils (%) (Auto) 3 0-10 % Basophils (%) (Auto) 0 0-10 % Neutrophils # (Auto) 8.8 H 1.8-7.8 10^3/uL Lymphocytes # (Auto) 1.3 1.0-4.0 10^3/uL Monocytes # (Auto) 0.7 0.0-1.0 10^3/uL Eosinophils # (Auto) 0.3 0.0-0.3 10^3/uL Basophils # (Auto) 0.0 0.0-0.1 10^3/uL Immature Granulocyte # (Auto) 0.0 0.0-0.1 10^3/uL Erythrocyte Sedimentation Rate 64 H 0-30 MM/HR Prothrombin Time 10.9 L 12.2-14.7 SEC INR Comment 0.8 0.8-1.4 Activated Partial Thromboplast Time 21 L 24-35 SEC D-Dimer 0.73 H 0.00-0.49 UG/ML Sodium Level 147 H 135-145 MMOL/L Potassium Level 4.4 3.6-5.0 MMOL/L Chloride Level 98 98-107 MMOL/L Carbon Dioxide Level 40 H 21-32 MMOL/L Anion Gap 9 5-14 MMOL/L Blood Urea Nitrogen 9 7-18 MG/DL Creatinine 0.74 0.60-1.30 MG/DL Estimat Glomerular Filtration Rate > 60 BUN/Creatinine Ratio 12 Glucose Level 109 H 70-105 MG/DL Calcium Level 9.2 8.5-10.1 MG/DL Corrected Calcium 9.3 8.5-10.1 MG/DL Magnesium Level 1.8 1.6-2.4 MG/DL Total Bilirubin 0.3 0.1-1.0 MG/DL Aspartate Amino Transf (AST/SGOT) 12 5-34 U/L Alanine Aminotransferase (ALT/SGPT) 14 0-55 U/L Alkaline Phosphatase 100 40-136 U/L Lactate Dehydrogenase 202 125-220 U/L Total Creatine Kinase 42 29-168 U/L Creatine Kinase MB 1.6 <6.6 NG/ML Myoglobin 39.0 10.0-92.0 NG/ML Troponin I < 0.028 <0.028 NG/ML C-Reactive Protein High Sensitivity 0.66 H 0.00-0.50 MG/DL B-Type Natriuretic Peptide 43.3 <100.0 PG/ML Total Protein 6.6 6.4-8.2 GM/DL Albumin 3.9 3.2-4.5 GM/DL Procalcitonin 0.04 <0.10 NG/ML Thyroid Stimulating Hormone (TSH) 0.94 0.35-4.94 UIU/ML Blood Gas Puncture Site RIGHT RADIAL Blood Gas Patient Temperature 98.6 Arterial Blood pH 7.34 *L 7.37-7.43 Arterial Blood Partial Pressure CO2 81 *H 35-45 MMHG Arterial Blood Partial Pressure O2 68 L 79-93 MMHG Arterial Blood HCO3 43 *H 23-27 MMOL/L Arterial Blood Total CO2 45.0 H 21.0-31.0 MMOL/L Arterial Blood Oxygen Saturation 93 L 94-100 % Arterial Blood Base Excess 16.0 H -2.5-2.5 MMOL/L Merlin Test YES-POS Blood Gas Ventilator Setting NO Blood Gas Inspired Oxygen 2L Coronavirus 2019 (LILIAN) Negative Negative Radiology CXR 03/26: no acute findings Physical Exam-([facility]) Physical Exam Vital Signs VS - Last 72 Hours, by Label 03/26/20 03/26/20 03/26/20 03/26/20 05:54 05:54 06:01 06:27 Temp 37.0 Pulse 84 84 74 Resp 22 30 B/P (MAP) 138/102 (114) 138/102 Pulse Ox 100 100 100 97 O2 Delivery Nasal Cannula Nasal Cannula Nasal Cannula O2 Flow Rate 5.00 5.00 5.00 30.00 03/26/20 03/26/20 03/26/20 03/26/20 06:32 09:28 09:45 10:00 Pulse 69 74 103 72 Resp 25 16 17 B/P (MAP) 141/77 140/69 (92) 130/70 (90) Pulse Ox 97 100 98 O2 Delivery Nasal Cannula NIV Bilevel NIV Bilevel O2 Flow Rate 30.00 3.00 03/26/20 03/26/20 10:03 11:00 Pulse 75 82 Resp 36 B/P (MAP) 143/119 (127) Pulse Ox 93 O2 Delivery NIV Bilevel Capillary Refill : Less Than 3 Seconds General Appearance: obese, other (somnolent, opens eyes to name and mumbles) Respiratory: decreased breath sounds, accessory muscle use Cardiovascular: regular rate, rhythm, no murmur Gastrointestinal: normal bowel sounds, non tender, soft Extremities: no pedal edema Skin: normal color, warm/dry Assessment/Plan Assessment/Plan Admission Status: Inpatient Order (span 2 midnights) Reason for Inpatient Admission: Severe hypercapnia requiring bipap (1) Acute on chronic respiratory failure with hypoxia and hypercapnia Status: Acute Assessment & Plan: Secondary to non-use of home vent to mask. Per DME, she has extreme difficulty remembering how to use, may need placement at d/c. Note that she does have prior dx of dementia. She is resistant to bipap, required ativan to allow placement in ER. (2) COPD exacerbation Status: Acute Assessment & Plan: IV solumedrol, duonebs, respiratory support as noted above. (3) Carbon dioxide narcosis Status: Acute Assessment & Plan: PCO2 over 80 on admit, started on Bipap, repeat ABG pending. (4) Elevated d-dimer Status: Acute Assessment & Plan: CTA pending (5) COPD (chronic obstructive pulmonary disease) Status: Chronic (6) Morbid obesity Status: Chronic (7) Bipolar disorder Status: Chronic (8) Hypertension Status: Chronic Qualifiers: Qualified Codes: I10 - Essential (primary) hypertension (9) Lupus Status: Chronic (10) Obesity hypoventilation syndrome Status: Chronic Assessment & Plan: Chronically on O2 and vent to mask at night. (11) Leukocytosis Status: Acute Assessment & Plan: Do not suspect infection, CXR unremarkable, afebrile. COVID NAAT neg. (12) Hypernatremia Status: Acute Assessment & Plan: D5 at 100 mls/hr (13) Thrombocytosis Status: Acute Assessment & Plan: Suspect reactive, monitor (14) Anemia Status: Chronic Assessment & Plan: Check iron, TIBC, ferritin and smear. Had low iron in past but remainder of labs not seen. Qualifiers: Qualified Codes: D64.9 - Anemia, unspecified (15) DVT prophylaxis Status: Acute Assessment & Plan: Enoxaparin LILIAN ALAS MD Mar 26, 2020 11:57
[2020-03-26] MEDS ORDERED: LORazepam INJ 2 MG/ML (ATIVAN) VIAL IVP PRN (12:00)
[2020-03-26] MEDS: methylPREDNISolone 125 MG (Solu-MEDROL) VIAL IVP SCH ×2 (12:15→20:29)
[2020-03-26 12:17] LABS: ABG BASE EXCESS 14.5 MMOL/L (-2.5-2.5); ABG OXYGEN SATURATION 95 % (94-100); ABG PCO2 69 MMHG (35-45); ABG PH 7.38 (7.37-7.43); ABG PO2 68 MMHG (79-93); ABG TCO2 42.6 MMOL/L (21.0-31.0)
[2020-03-26 12:21] LABS: ALLENS TEST YES-POS; INSPIRED O2 30%; PATIENT TEMP 97.2; VENTILATOR NO
[2020-03-26] MEDS ORDERED: ENOXAPARIN 40 MG/0.4 ML (LOVENOX) SYR SQ SCH (12:30)
[2020-03-26 12:59] LABS: ABSOLUTE RETIC # 73 10e9/uL (24-90); BASOPHILS % (AUTO) 0 % (0-10); EOSINOPHILS % (AUTO) 0 % (0-10); HEMATOCRIT 35 % (35-52); HEMOGLOBIN 9.5 g/dL (11.5-16.0); LYMPHOCYTES # (AUTO) 0.9 10^3/uL (1.0-4.0); LYMPHOCYTES % (AUTO) 6 % (12-44); MEAN CORPUSCULAR HEMOGLOBIN 25 pg (25-34); MEAN CORPUSCULAR HGB CONC 28 g/dL (32-36); MEAN CORPUSCULAR VOLUME 90 fL (80-99); MONOCYTES # (AUTO) 0.1 10^3/uL (0.0-1.0); MONOCYTES % (AUTO) 1 % (0-12); NEUTROPHILS # (AUTO) 12.9 10^3/uL (1.8-7.8); NEUTROPHILS % (AUTO) 92 % (42-75); PLATELET COUNT 448 10^3/uL (130-400)
[2020-03-26 13:34] VITALS: BP 138/109
[2020-03-26 13:43] LABS: BAND NEUTROPHILS 1 %; BASOPHILS % (MANUAL) 0 %; EOSINOPHILS % (MANUAL) 0 %; LYMPHOCYTES % (MANUAL) 8 %; MONOCYTES % (MANUAL) 2 %; NEUTROPHILS % (MANUAL) 89 %
[2020-03-26 13:44] LABS: ANISOCYTOSIS SLIGHT; STOMATOCYTES MODERATE
--- NOTE | 2020-03-26 14:00 | NUR ---
PT RESTING COMFORTABLY IN BED, EYES CLOSED. SAO2 90% ON BIPAP. O2 UP TO 35% ON BIPAP 1405 SAO2 NOW 93%
[2020-03-26] MEDS ORDERED: METH2.5T PO (15:44)
--- NOTE | 2020-03-26 15:44 | NUR ---
UNABLE TO SPEAK WITH PT AT THIS TIME, I DID REACH OUT TO HER DAUGHTER () WHO LET ME KNOW THE PT RECENTLY WAS DISCHARGED FROM [facility] AND THAT NONE OF HER MEDICATIONS HAVE CHANGED. I LOOKED BACK AT THE [facility]U DISCARGE AND SPOKE WITH LEOBARDO TO COMPLETE THE MED REC 01-31-2020 AMLODIPINE 5MG #30/30DS 01-31-2020 ATORVASTATIN 10MG #30/30DS 02-20-2020 METFORMIN 500MG #180/DS 02-20-2020 CARAFATE 1GM #90/30DS 02-24-2020 METHOTREXATE 2.5MG #12/28DS 02-24-2020 OLANZAPINE 10MG & 20MG #30/30DS 03-03-2020 DONEPEZIL 10MG #60/60DS 03-03-2020 FOLIC ACID 1MG #30/30DS 03-22-2020 METOPROLOL SUCC 100MG #60/30DS OTC MEDS: OMEPRAZOLE VIT B12 VIT D ZYRTEC
[2020-03-26] MEDS ORDERED: FOLIC ACID PO (15:49)
[2020-03-26] MEDS: D5W 1000 ML IV SOLUTION 1,000 ML IV SCH ×2 (16:50→23:02)
[2020-03-26] MEDS: RT-ALBUTEROL INHALER HFA (VENTOLIN HFA) 18 GM IH SCH ×2 (19:13→22:00)
[2020-03-26] MEDS: DexMEDEtomidine PRE MIX 100 ML IV SCH (20:29)
[2020-03-27] MEDS: methylPREDNISolone 125 MG (Solu-MEDROL) VIAL IVP SCH (00:20)
[2020-03-27] MEDS: RT-ALBUTEROL INHALER HFA (VENTOLIN HFA) 18 GM IH SCH (01:06)
[2020-03-27 02:00] LABS: ABG BASE EXCESS 14.4 MMOL/L (-2.5-2.5); ABG OXYGEN SATURATION 95 % (94-100); ABG PCO2 60 MMHG (35-45); ABG PH 7.43 (7.37-7.43); ABG PO2 72 MMHG (79-93); ABG TCO2 41.5 MMOL/L (21.0-31.0)
[2020-03-27 02:01] LABS: ALLENS TEST YES-POS
[2020-03-27 02:02] LABS: INSPIRED O2 30%; PATIENT TEMP 36.4; VENTILATOR NO
[2020-03-27 02:18] LABS: BASOPHILS % (AUTO) 0 % (0-10); EOSINOPHILS % (AUTO) 0 % (0-10); HEMATOCRIT 34 % (35-52); HEMOGLOBIN 9.8 g/dL (11.5-16.0); LYMPHOCYTES # (AUTO) 0.8 10^3/uL (1.0-4.0); LYMPHOCYTES % (AUTO) 13 % (12-44); MEAN CORPUSCULAR HEMOGLOBIN 25 pg (25-34); MEAN CORPUSCULAR HGB CONC 29 g/dL (32-36); MEAN CORPUSCULAR VOLUME 87 fL (80-99); MEAN PLATELET VOLUME 10.5 fL (9.0-12.2); MONOCYTES # (AUTO) 0.1 10^3/uL (0.0-1.0); MONOCYTES % (AUTO) 1 % (0-12); NEUTROPHILS # (AUTO) 5.7 10^3/uL (1.8-7.8); NEUTROPHILS % (AUTO) 85 % (42-75); PLATELET COUNT 478 10^3/uL (130-400); WHITE BLOOD COUNT 6.6 10^3/uL (4.3-11.0)
[2020-03-27 02:32] LABS: CHLORIDE 96 MMOL/L (98-107); POTASSIUM 4.2 MMOL/L (3.6-5.0); SODIUM 142 MMOL/L (135-145)
[2020-03-27 02:33] LABS: CALCIUM 9.1 MG/DL (8.5-10.1)
--- NOTE | 2020-03-27 02:33 | NUR ---
THIS RN NOTIFIED DR. HASTINGS WITH TELE-ICU OF PATIENTS DECREASED URINE OUTPUT, 75ML OVER LAST 4 HOURS. NEW ORDER RECEIVED FOR 1 LITER LR OVER 2 HOURS. SEE ORDER HX.
[2020-03-27 02:34] LABS: GLUCOSE 176 MG/DL (70-105)
[2020-03-27 02:35] LABS: CARBON DIOXIDE 35 MMOL/L (21-32)
[2020-03-27] MEDS ORDERED: LACTATED RINGERS 1,000 ML IV ONE ×2 (02:35→02:45)
[2020-03-27 02:37] LABS: CREATININE SERUM 0.76 MG/DL (0.60-1.30); GFR ESTIMATED > 60; PHOSPHORUS 3.1 MG/DL (2.3-4.7)
[2020-03-27 02:38] LABS: BUN/CREATININE RATIO 20
[2020-03-27 02:40] LABS: MAGNESIUM 1.9 MG/DL (1.6-2.4)
[2020-03-27 03:57] VITALS: BP 149/89
[2020-03-27] MEDS: DexMEDEtomidine PRE MIX 100 ML IV SCH (03:57)
--- NOTE | 2020-03-27 04:30 | NUR ---
THIS RN AND DR. GARZA CALLED PATIENT'S DAUGHTER AND DPOA, TIMI CONNELLY, TO DISCUSS COMFORT CARE. DECIDED TO MAKE PATIENT COMFORT CARE AT THIS THIS TIME.
--- NOTE | 2020-03-27 04:33 | Pulmonary Progress Note ---
Subjective Time Seen by a Provider: 04:28 Sepsis Event Evaluation Height, Weight, BMI Height: 5'7.50" Weight: 200lbs. 1.0oz. 90.166146eb; 37.00 BMI Method:Stated Exam Exam Vital Signs Date Time Temp Pulse Resp B/P (MAP) Pulse Ox O2 Delivery O2 Flow Rate FiO2 03/27/20 03:57 36.2 62 41 149/89 93 3.00 03/27/20 03:52 36.2 03/27/20 01:06 62 41 93 30.00 03/27/20 01:00 51 03/27/20 00:12 36.7 93 NIV Bilevel 30.00 03/27/20 00:00 NIV Bilevel 35 03/27/20 00:00 36.5 03/26/20 22:00 66 158/79 92 NIV Bilevel 35.00 03/26/20 22:00 84 17 94 30.00 03/26/20 21:15 96 NIV Bilevel 30.00 03/26/20 21:14 37.7 96 NIV Bilevel 35.00 03/26/20 21:00 98 149/89 97 NIV Bilevel 35.00 03/26/20 21:00 NIV Bilevel 35 03/26/20 20:29 36.0 84 17 149/89 93 3.00 03/26/20 20:00 82 128/71 94 NIV Bilevel 35.00 03/26/20 20:00 37.8 03/26/20 20:00 NIV Bilevel 35 03/26/20 19:14 84 17 93 35.00 03/26/20 19:00 87 03/26/20 19:00 84 137/72 94 NIV Bilevel 35.00 03/26/20 18:00 100 149/89 95 NIV CPAP 03/26/20 17:00 70 132/70 92 NIV CPAP 03/26/20 16:00 36.0 03/26/20 16:00 NIV Bilevel 30 03/26/20 16:00 71 136/69 91 NIV CPAP 03/26/20 15:13 77 34 95 30.00 03/26/20 15:00 87 96 NIV CPAP 03/26/20 14:00 75 154/81 91 NIV CPAP 03/26/20 13:34 37.0 84 100 40 03/26/20 13:00 71 130/57 90 NIV CPAP 03/26/20 12:41 82 03/26/20 12:00 NIV Bilevel 30 03/26/20 12:00 36.4 03/26/20 12:00 76 32 94 30.00 03/26/20 12:00 82 146/93 94 NIV CPAP 03/26/20 11:28 36.2 79 146/93 95 NIV CPAP 03/26/20 11:00 82 36 143/119 (127) 93 NIV Bilevel 03/26/20 10:03 75 03/26/20 10:00 72 130/70 98 NIV CPAP 03/26/20 10:00 72 17 130/70 (90) 98 NIV Bilevel 03/26/20 09:45 103 140/69 (92) NIV Bilevel 03/26/20 09:28 74 16 141/77 100 Nasal Cannula 3.00 03/26/20 06:32 69 25 97 30.00 03/26/20 06:27 74 30 97 30.00 03/26/20 06:01 100 Nasal Cannula 5.00 03/26/20 05:54 84 138/102 100 Nasal Cannula 5.00 03/26/20 05:54 37.0 84 22 138/102 (114) 100 Nasal Cannula 5.00 I & O 03/27/20 07:00 Intake Total 150 ml Output Total 250 ml Balance -100 ml Height & Weight Height: 5'7.50" Weight: 200lbs. 1.0oz. 90.528859nz; 37.00 BMI Method:Stated Capillary Refill: Less Than 3 Seconds Gastrointestinal: normal bowel sounds, non tender, soft Results Lab Laboratory Tests 03/26/20 06:10 03/26/20 12:50 03/27/20 02:00 Assessment/Plan Assessment/Plan Acute on chronic respiratory failure severe oxygen dependent COPD with acute exacerbation -Duoneb Obesity hypoventilation -Pt has new vent to mask since 02/2020 -[facility] [employer] [facility] has been to her house multiple times working with her on vent to mask. Pt does not comprehend how to put mask on. Lethargy Pt has multiple hospital admissions and just recently discharged -Pt really needs [place] [facility] placement. She has a lot of needs and poor understanding of her home medical equipment. I discussed with patients daughter and she would like to make pt FUNERAL COUNSELOR. RN was listening to conversation. Pt has been asking to let her since admission. Will proceed to FUNERAL COUNSELOR and transfer pt to [address] [place] [address]. MERCEDES GARZA DO Mar 27, 2020 04:33
[2020-03-27] MEDS ORDERED: LORazepam INJ 2 MG/ML (ATIVAN) VIAL IVP ONE ×2 (04:45→06:30)
[2020-03-27] MEDS: HYDROmorphone 2 MG/ML VIAL (DILAUDID) IV PRN ×6 (05:59→20:34)
[2020-03-27] MEDS ORDERED: POTASSIUM CL 10MEQ/50ML IVPB 50 ML IV SCH (06:00)
[2020-03-27] MEDS ORDERED: KCL 20 MEQ TAB (K-DUR) PO SCH (06:00)
[2020-03-27] MEDS ORDERED: MAGNESIUM 1 GM/100 ML IVPB 100 ML IV SCH (06:00)
[2020-03-27] MEDS: LORazepam INJ 2 MG/ML (ATIVAN) VIAL IVP PRN ×6 (06:08→20:31)
[2020-03-27] MEDS ORDERED: HALOPERIDOL 5 MG/ML (HALDOL) VIAL ONE (06:15)
[2020-03-27] MEDS: HALOPERIDOL 5 MG/ML (HALDOL) VIAL IV PRN ×2 (06:19→13:05)
--- NOTE | 2020-03-27 06:30 | NUR ---
assumed care of patient at this time. she is resting comfortably. will continue to monitor
--- NOTE | 2020-03-27 06:40 | NUR ---
THIS RN CALLED PATIENT'S DAUGHTER, , TO UPDATE ON VISITOR POLICY FOR COMFORT CARE, ALSO NOTIFIED OF PATIENT'S ROOM CHANGE TO ROOM #409.
[2020-03-27] MEDS ORDERED: ACETAMINOPHEN 650 MG SUPP (TYLENOL) PR PRN (10:00)
[2020-03-27] MEDS ORDERED: LORazepam INJ 2 MG/ML (ATIVAN) VIAL IVP PRN (10:00)
[2020-03-27] MEDS ORDERED: PROMETHAZINE INJ 25 MG/ML (PHENERGAN) AMP IVP PRN (10:00)
[2020-03-27] MEDS ORDERED: BISACODYL 10 MG SUPP (DULCOLAX) PR PRN (10:00)
[2020-03-27] MEDS ORDERED: ONDANSETRON 4 MG/2 ML (SDV) Z0FRAN IVP PRN (10:00)
[2020-03-27] MEDS ORDERED: ARTIFICAL TEARS 0.4 ML UNIT DOSE (REFRESH PLUS) OU PRN (10:00)
[2020-03-27] MEDS ORDERED: RT-ALBUTEROL/IPRATROPIUM 3 ML (DUONEB) VIAL INH PRN (10:00)
--- NOTE | 2020-03-27 10:34 | Progress Note - Hospitalist ---
Subjective HPI/CC On Admission Date Seen by Provider: Mar 27, 2020 Time Seen by Provider: 10:31 Subjective/Events-last exam patient sleeping peacefully on arrival nonresponsive. She did receive dye lotted due to agitation picking at lines and her oxygen earlier. Daughter at the bedside. Objective Exam Vital Signs Vital Signs Date Time Temp Pulse Resp B/P (MAP) Pulse Ox O2 Delivery O2 Flow Rate FiO2 03/27/20 05:00 53 162/78 92 NIV Bilevel 30.00 03/27/20 04:00 35 03/27/20 03:57 36.2 41 Capillary Refill : Less Than 3 Seconds General Appearance: No Apparent Distress, Obese Respiratory: No Accessory Muscle Use, No Respiratory Distress, Other (scattered rhonchi without wheezing) Cardiovascular: Regular Rate, Rhythm, No Edema, No Gallop, No JVD, No Murmur, Normal Peripheral Pulses Results/Procedures Lab Laboratory Tests 03/26/20 12:50 03/27/20 02:00 Patient resulted labs reviewed. Assessment/Plan Assessment and Plan Assess & Plan/Chief Complaint 1. Acute on chronic hypercapnic respiratory failure secondary to underlying COPD patient now on comfort care. End-of-life discussion had with daughter about expectations and different common circumstances that arise toward the end of care including delirium Espinoza-Hall respiration and why food or fluid at this point were not going to add comfort and less the patient were to awaken and request. 25 minutes [id number] care time spent greater than 50 percent in discussion and answering questions about end of life. Critical Care Critically Ill Patient Clinical Quality Measures DVT/VTE Risk/Contraindication: Risk Factor Score Per Nursin RFS Level Per Nursing on Admit: 4+=Very High YE PUGA MD Mar 27, 2020 10:34
[2020-03-28] MEDS: SALIVA STIMULANT MOUTH SPRAY (BIOTENE) 1.5 OZ MM PRN ×2 (00:24→21:43)
[2020-03-28] MEDS: HYDROmorphone 2 MG/ML VIAL (DILAUDID) IV PRN (08:11)
--- NOTE | 2020-03-28 11:42 | NUR ---
CONDITION DETERIORATING RAPIDLY. DAUGHTER AT BEDSIDE AND JUST REMEMBERED PT GNOSTICIST. REQUESTING SACRAMENT. PASTORAL CARE CALLED AND SENIOR CLINICAL DATA COORDINATOR TO BEDSIDE FOR SACRAMENT.
--- NOTE | 2020-03-28 12:37 | Discharge Summary ---
Diagnosis/Chief Complaint Date of Admission Mar 26, 2020 at 07:37 Date of Discharge Primary Care Garrett Ward DO Discharge Summary Discharge Physical Exam Allergies: Coded Allergies: clindamycin (Unverified Allergy, Mild, HIVES, 03/26/20) meperidine (Unverified Allergy, Mild, HAS RECEIVED FENTANYL IN THE PAST, 03/26/20) morphine (Unverified Allergy, Mild, 03/26/20) doxycycline (Verified Allergy, Unknown, 03/26/20) codeine (Verified Adverse Reaction, Unknown, NAUSEA, 03/26/20) Vitals & I&Os Vital Signs Date Time Temp Pulse Resp B/P (MAP) Pulse Ox O2 Delivery O2 Flow Rate FiO2 03/28/20 09:00 Nasal Cannula 3.00 03/27/20 05:00 53 162/78 92 03/27/20 04:00 35 03/27/20 03:57 36.2 41 Hospital Course Labs (last 24 hrs) Microbiology 03/26/20 Influenza Types A,B Antigen (TRAY) - Final, Complete Patient resulted labs reviewed. Discharge Home Medications: Active Scripts Active Hydrocodone-Acetamin 5-325 mg (Hydrocodone/Acetaminophen) 1 Each Tablet 1 Tab PO Q4H PRN Metoprolol Succinate 100 Mg Tab.er.24h 100 Mg PO BID Omeprazole 20 Mg Tablet.dr 20 Mg PO DAILY 30 Days Sucralfate 1 Gm Tablet 1 Gm PO TIDAC 30 Days Olanzapine 10 Mg Tablet 10 Mg PO HS 30 Days TAKE WITH 20 MG TABLET AT HS TO EQUAL 30 MG Olanzapine 20 Mg Tablet 20 Mg PO HS 30 Days TAKE WITH 10 MG AT HS Metformin HCl 500 Mg Tablet 500 Mg PO BIDAC 30 Days B-12 (Cyanocobalamin (Vitamin B-12)) 1,000 Mcg Tablet 1,000 Mcg PO DAILY 30 Days Vitamin D3 (Cholecalciferol (Vitamin D3)) 50 Mcg Capsule 100 Mcg PO DAILY 30 Days TAKES TWO 50 MCG TAB DAILY Cetirizine HCl 10 Mg Tablet 10 Mg PO DAILY 30 Days Atorvastatin Calcium 10 Mg Tablet 10 Mg PO HS 30 Days Amlodipine Besylate 5 Mg Tablet 5 Mg PO DAILY 30 Days Proair Hfa (Albuterol Sulfate) 1 Puff Puff 2 Puff IH Q4H 30 Days 1 PUFF = 90 MCG Donepezil HCl 10 Mg Tablet 10 Mg PO HS 30 Days Reported [Folic Acid] 1 Mg PO DAILY Methotrexate (Methotrexate Sodium) 2.5 Mg Tablet 7.5 Mg PO SAT TAKES 3(2.5MG) TABS Instructions to patient/family Please see electronic discharge instructions given to patient. Clinical Quality Measures DVT/VTE Risk/Contraindication: Risk Factor Score Per Nursin RFS Level Per Nursing on Admit: 4+=Very High Comfort Measures/ Type of Care: Comfort Measures Cardiopulmonary Arrest: Cardiorespiratory Arrest patient was admitted with increased fatigue and confusion secondary to acute on chronic hypercapnic respiratory failure. This is due to underlying end-stage COPD. She and family members opted for comfort care and she quietly with her daughter present at bedside. YE PUGA MD Mar 28, 2020 12:37
[2020-03-28] MEDS: GLYCOPYRROLATE 0.2 MG/ML (ROBINUL) 2 ML VIAL IV PRN (21:46)
[2020-03-29] MEDS: LORazepam INJ 2 MG/ML (ATIVAN) VIAL IVP PRN ×2 (01:05→16:28)
[2020-03-29] MEDS: HYDROmorphone 2 MG/ML VIAL (DILAUDID) IV PRN ×2 (01:06→14:45)
--- NOTE | 2020-03-29 09:24 | Progress Note - Hospitalist ---
Subjective HPI/CC On Admission Date Seen by Provider: Mar 29, 2020 Time Seen by Provider: 09:00 Subjective/Events-last exam Pt on comfort care End stage process noted Daughter at the bedside Updated her on supportive care only Pt comatose is imminent Review of Systems General: Other (Chronically ill) Objective Exam Vital Signs Vital Signs Date Time Temp Pulse Resp B/P (MAP) Pulse Ox O2 Delivery O2 Flow Rate FiO2 03/29/20 10:06 Nasal Cannula 3.00 03/27/20 05:00 53 162/78 92 03/27/20 04:00 35 03/27/20 03:57 36.2 41 Capillary Refill : Less Than 3 SecondsLess Than 3 Seconds General Appearance: No Apparent Distress, Chronically ill, Other (Comatose) Results/Procedures Lab Patient resulted labs reviewed. Assessment/Plan Assessment and Plan Assess & Plan/Chief Complaint Assessment: End of life status Plan: Comfort care protocol Critical Care Critically Ill Patient Clinical Quality Measures DVT/VTE Risk/Contraindication: Risk Factor Score Per Nursin RFS Level Per Nursing on Admit: 4+=Very High SAMANTHA COLLIER DO Mar 29, 2020 09:24
--- NOTE | 2020-03-29 11:23 | NUR ---
Pt is Bahai. Anointed yesterday by Fr Hamilton. Today spoke with Dtgillian Puente who seems to be coping and keeping harrington. She has a brother in [place] who might be coming.
--- NOTE | 2020-03-29 14:45 | NUR ---
PT NOTED TO HAVE SLIGHTLY LABORED RESP AT THIS TIME. DILAUDID 2MG IV FOR COMFORT.
--- NOTE | 2020-03-29 16:18 | NUR ---
CM/SS visited with patient for discharge planning. The patient was lying in bed with daughter at bedside. She appeared to be resting comfortably and not in any pain. The patient's daughter verbalized they have transitioned her to comfort care. The patient's daughter reports that she was waiting for the physician to let her know if patient will need to discharge to a nursing facility with hospice or stay in the hospital. CM/SS discussed different options for the patient including home with hospice. She states that, that is not an option at this time. Her preference would be to keep her on comfort care at the hospital. CM/SS informed Dr. Pringle of daughter's questions. At this time it is planned for patient to stay in the hospital. Nursing Facility/insurance: is agreeable with a nursing facility if necessary. She states her choice for retirement is [facility]. CM/SS contacted [facility] to discuss insurance coverage, visitor policies, and bed availability. [facility] reports that they will allow visitors if the patient is actively dying. The patient has Medicaid and Medicare. This SS and Jacinto discussed payment and insurance coverage with . Hospice: CM/SS visited with regarding hospice choices and services. CM/SS discussed if the patient discharges to a retirement a hospice agency can be on service. verbalized she is interested in [facility]. CM/SS contacted [facility] to set up an informational visit. CM/SS got approval on visitor by [facility]. An informational visit was set up for today. Financial: had several questions regarding the patient's finances and the process for taking care of the patient's debts. CM/SS asked for additional support through social human services assistants Jacinto. Jacinto assisted in walking through the process and challenges that may occur. verbalized understanding. Home: CM/SS discussed different options in the area. expressed concerns for cost. CM/SS provided information on [facility] in [place], [place]. She verbalized understanding. CM/SS will continue to follow with patient and family. Addendum: 03/29/20 at 1657 by ROSARIO WINSLOW CM/NAYLA received call from Samia at [facility]. She stated that they had started looking into placement for her prior to hospitalization and had placement set for [facility]. The patient's daughter reports she does not want her going there. Home Health is currently on hold. CM/NAYLA gave an update on patient's condition and they will stay pending discharge at this time.
--- NOTE | 2020-03-29 16:25 | NUR ---
CALLED TO ROOM BY DAUGHTER. LABORED RESPIRATIONS NOTED. ATIVAN 2MG IV FOR AIR HUNGER AND LABORED RESPIRATIONS. ROBINUL 0.2MG IV FOR LARGE AMOUNT SECRETIONS.
[2020-03-29] MEDS: GLYCOPYRROLATE 0.2 MG/ML (ROBINUL) 2 ML VIAL IV PRN (16:30)
--- NOTE | 2020-03-29 16:45 | NUR ---
RESPIRATIONS CEASED. NO PERCEPTIBLE HEARTBEAT. CONFIRMED BY MARYANN BLEVINS. PASTORAL CARE AND DAUGHTER AT BEDSIDE.
--- NOTE | 2020-03-29 16:53 | NUR ---
[facility] NOTIFIED. AWAITING RETURN CALL.
--- NOTE | 2020-03-29 18:18 | NUR ---
BODY ICED, SALINE GTTS IN EYES, HOB ELEVATED. CONT TO AWAIT [facility] FOR FURTHER INSTRUCTIONS.
--- NOTE | 2020-03-29 18:39 | NUR ---
[facility] CALLED STATING PATIENT WAS NOT ELIGIBLE FOR EYE OR TISSUE R/T DEMENTIA. OK TO RELEASE BODY. DAUGHTER REQUESTS [facility] TO BE NOTIFIED. PHONE [phone]. INITIAL CALL MADE. AWAITING SON'S ARRIVAL FROM [place].
--- NOTE | 2020-03-29 19:09 | NUR ---
[facility] HERE TO VIEW BODY. GIVES OK FOR [facility] TO BE CALLED.
--- NOTE | 2020-03-29 19:45 | NUR ---
[facility] [employer] NOTIFIED TO RECEIVE BODY
--- NOTE | 2020-03-29 20:30 | NUR ---
[facility] ARRIVED TO COLLECT BODY.
--- NOTE | 2020-03-30 06:03 | Discharge Summary ---
Discharge Summary Hospital Course Was the Problem List Reviewed?: Yes Hospital Course Date of Admission: Mar 26, 2020 at 07:37 Admission Diagnosis : Family Physician/Provider: Garrett Ward DO Date of Discharge: 03/30/20 Discharge Diagnosis: resp failure end of life Hospital Course: short course after just DC from IRF 4 days prior she presented with dyspnea and found to be in acute on chronic resp failure which progressed quickly and DNR maintained and patient was ultimately placed on comfort care and with daughter at beside. Labs and Pending Lab Test: Microbiology 03/27/20 Blood Culture - Preliminary, Resulted No growth 03/26/20 Influenza Types A,B Antigen (TRAY) - Final, Complete Home Meds Active Hydrocodone-Acetamin 5-325 mg (Hydrocodone/Acetaminophen) 1 Each Tablet 1 Tab PO Q4H PRN Metoprolol Succinate 100 Mg Tab.er.24h 100 Mg PO BID Omeprazole 20 Mg Tablet.dr 20 Mg PO DAILY 30 Days Sucralfate 1 Gm Tablet 1 Gm PO TIDAC 30 Days Olanzapine 10 Mg Tablet 10 Mg PO HS 30 Days TAKE WITH 20 MG TABLET AT HS TO EQUAL 30 MG Olanzapine 20 Mg Tablet 20 Mg PO HS 30 Days TAKE WITH 10 MG AT HS Metformin HCl 500 Mg Tablet 500 Mg PO BIDAC 30 Days B-12 (Cyanocobalamin (Vitamin B-12)) 1,000 Mcg Tablet 1,000 Mcg PO DAILY 30 Days Vitamin D3 (Cholecalciferol (Vitamin D3)) 50 Mcg Capsule 100 Mcg PO DAILY 30 Days TAKES TWO 50 MCG TAB DAILY Cetirizine HCl 10 Mg Tablet 10 Mg PO DAILY 30 Days Atorvastatin Calcium 10 Mg Tablet 10 Mg PO HS 30 Days Amlodipine Besylate 5 Mg Tablet 5 Mg PO DAILY 30 Days Proair Hfa (Albuterol Sulfate) 1 Puff Puff 2 Puff IH Q4H 30 Days 1 PUFF = 90 MCG Donepezil HCl 10 Mg Tablet 10 Mg PO HS 30 Days Reported [Folic Acid] 1 Mg PO DAILY Methotrexate (Methotrexate Sodium) 2.5 Mg Tablet 7.5 Mg PO SAT TAKES 3(2.5MG) TABS Assessment/Pt Instructions Discharge Planning: <30 minutes discharge planning Discharge Physical Examination Vital Signs Vital Signs Date Time Temp Pulse Resp B/P (MAP) Pulse Ox O2 Delivery O2 Flow Rate FiO2 03/29/20 10:06 Nasal Cannula 3.00 03/27/20 05:00 53 162/78 92 03/27/20 04:00 35 03/27/20 03:57 36.2 41 General Appearance: No Apparent Distress, WD/WN Allergies: Coded Allergies: clindamycin (Unverified Allergy, Mild, HIVES, 03/26/20) meperidine (Unverified Allergy, Mild, HAS RECEIVED FENTANYL IN THE PAST, 03/26/20) morphine (Unverified Allergy, Mild, 03/26/20) doxycycline (Verified Allergy, Unknown, 03/26/20) codeine (Verified Adverse Reaction, Unknown, NAUSEA, 03/26/20) Discharge Summary Date of Admission Mar 26, 2020 at 07:37 Date of Discharge Mar 29, 2020 at 16:50 Comfort Measures/ End of Life Care: Comfort Measures Discharge Diagnosis Assessment: End of life status Plan: Comfort care protocol Clinical Quality Measures DVT/VTE Risk/Contraindication: Risk Factor Score Per Nursin RFS Level Per Nursing on Admit: 4+=Very High SAMANTHA COLLIER DO Mar 30, 2020 06:03
== END 2020-03-29 16:50 | disposition expired | DRG 189 ==
LOC: EDUNIT# 05:50 → ER 05:51 → ICU 07:37 → 4TH 03-27 09:41
PROVIDERS: ADMIT Family Medicine; ATTEND Internal Medicine
DX: J96.22 Acute and chronic respiratory failure with hypercapnia (principal); J44.1 Chronic obstructive pulmonary disease with (acute) exacerbation; E66.2 Morbid (severe) obesity with alveolar hypoventilation; E87.0 Hyperosmolality and hypernatremia; J96.21 Acute and chronic respiratory failure with hypoxia; Z51.5 Encounter for palliative care; Z66 Do not resuscitate; L94.9 Localized connective tissue disorder, unspecified; D47.3 Essential (hemorrhagic) thrombocythemia; D64.9 Anemia, unspecified; I25.10 Atherosclerotic heart disease of native coronary artery without angina pectoris; I10 Essential (primary) hypertension; E78.00 Pure hypercholesterolemia, unspecified; R60.9 Edema, unspecified; R41.0 Disorientation, unspecified; F03.90 Unspecified dementia, unspecified severity, without behavioral disturbance, psychotic disturbance, mood disturbance, and anxiety; K21.9 Gastro-esophageal reflux disease without esophagitis; K44.9 Diaphragmatic hernia without obstruction or gangrene; E03.9 Hypothyroidism, unspecified; E11.9 Type 2 diabetes mellitus without complications; R53.83 Other fatigue; M19.91 Primary osteoarthritis, unspecified site; R25.3 Fasciculation; F41.9 Anxiety disorder, unspecified; F31.9 Bipolar disorder, unspecified; L40.9 Psoriasis, unspecified; G43.909 Migraine, unspecified, not intractable, without status migrainosus; F60.9 Personality disorder, unspecified; Z20.828 Contact with and (suspected) exposure to other viral communicable diseases; Z99.81 Dependence on supplemental oxygen; Z68.39 Body mass index [BMI] 39.0-39.9, adult; Z87.891 Personal history of nicotine dependence; Z87.11 Personal history of peptic ulcer disease; Z79.84 Long term (current) use of oral hypoglycemic drugs; Z90.81 Acquired absence of spleen; Z90.49 Acquired absence of other specified parts of digestive tract
CPT/HCPCS: 36415; 36600; 71045; 71275; 76937; 80048; 80053; 82550; 82553; 82728; 82805; 82962; 83540; 83615; 83735; 83874; 83880; 84100; 84145; 84443; 84484; 85007; 85025; 85027; 85045; 85379; 85610; 85652; 85730; 86141; 87040; 87635; 87804; 93005; 93041; 94640; 94660; 99291